=== PATIENT | male | born 1955 | race Caucasian/White ===

== ENCOUNTER 2016-07-24 13:33 | Observation (INO) | payer MEDICARE, MEDICAID ==
[~2016-07-24] VITALS: Ht 172.7 cm; Wt 58.6 kg
[~2016-07-24 13:33] MED LIST: ACET250T3 PO; ADV1DS; ADV1DS1; ALBU2.5V52 INH; ALBU8.5H2 IH; ARIP15TA; ARIP15TA PO; ARIP30TA10 PO; ARPZ20T PO; ASP325T; ASP325T PO; ASP81TEC PO; ATOR40TA PO; ATOR80TA76 PO; ATR20T; ATRV10T; CARV3.12 PO; CARV6.25; CARV6.252 PO; CEPH500C PO; CITA-105; CITA-105 PO; CITA40TA19 PO; CLOP75TA PO; CLPD75T; CTLP20T; CYCL5TAB PO; FAMO-119 PO; FLUT1DIS26 IH; FLUT1DIS27 IH; ISM30TCR PO; ISOS30TA74 PO; KCL10CCR; KCL10CCR PO; LEVA0.31; LEVO500T69 PO; LEVO500T78 PO; LISI10TA PO; LISI20TA PO; LISI40TA; LSNP10T; LSNP20T; METH4TAB PO; MNTL10T PO; MULT1TAB63; NAPR-243 PO; NF-ESOM40C; NF-XOP-HFA; NF-XOP-HFA INH; NITR1PAT27; NTR.4SL; NTR.4SL SL; OMEP20CA6 PO; OMG1KC; OMG1KC PO; ONDN4T SL; OSLT75C PO; PANT40TA2 PO; PNT40TEC PO; PRD20T PO; PRM25T PO; RANO10003 PO; RANO500T2 PO; RNT150T PO; SERT50TA PO; SLMFT1E; SRTR100T; SRTR100T PO; TIAZAC; TIOT18CA; TIOT18CA INH; TORS20TA2 PO; TORS20TA3 PO; TRAM-42 PO; TRAZ50TA67 PO; TRS20T; TRZ100T PO; TRZ50T; [UNRECOGNIZED DRUG - CODE] IJ; [UNRECOGNIZED DRUG - CODE] IV; [UNRECOGNIZED DRUG - OTHER] PO
[2016-07-24 13:54] LABS: BASOPHILS % (AUTO) 0 % (0-10); EOSINOPHILS # (AUTO) 0.1 10^3/uL (0.0-0.3); EOSINOPHILS % (AUTO) 2 % (0-10); LYMPHOCYTES # (AUTO) 1.9 X 10^3 (1.0-4.0); LYMPHOCYTES % (AUTO) 38 % (12-44); MEAN CORPUSCULAR HEMOGLOBIN 32 PG (25-34); MEAN CORPUSCULAR HGB CONC 33 G/DL (32-36); MEAN CORPUSCULAR VOLUME 96 FL (80-99); MEAN PLATELET VOLUME 9.8 FL (7.4-10.4); MONOCYTES # (AUTO) 0.5 X 10^3 (0.0-1.0); MONOCYTES % (AUTO) 9 % (0-12); NEUTROPHILS # (AUTO) 2.5 X 10^3 (1.8-7.8); NEUTROPHILS % (AUTO) 50 % (42-75); PLATELET COUNT 143 10^3/uL (130-400); RED BLOOD COUNT 4.34 10^6/uL (4.35-5.85); RED CELL DISTRIBUTION WIDTH 12.4 % (10.0-14.5)
--- NOTE | 2016-07-24 14:06 | Diagnostic Imaging Report ---
INDICATION: Chest pain. EXAMINATION: Portable chest at 1:51 PM. FINDINGS: There are postop changes from CABG surgery. The heart size and pulmonary vascularity are normal. The lungs are clear. There are no effusions or pneumothoraces. IMPRESSION: No acute abnormalities in the chest. Dictated by: Dictated on workstation # [id number]
[2016-07-24 14:16] LABS: ALANINE AMINOTRANSFERASE 18 U/L (0-55); ALBUMIN 3.9 G/DL (3.2-4.5); ANION GAP 5 MMOL/L (5-14); ASPARTATE AMINO TRANSFERASE 17 U/L (5-34); BILIRUBIN,TOTAL 0.5 MG/DL (0.1-1.0); BLOOD UREA NITROGEN 7 MG/DL (7-18); BUN/CREATININE RATIO 8; CARBON DIOXIDE 35 MMOL/L (21-32); CHLORIDE 96 MMOL/L (98-107); CREATININE SERUM 0.86 MG/DL (0.60-1.30); GFR ESTIMATED > 60; GLUCOSE 109 MG/DL (70-105); POTASSIUM 4.4 MMOL/L (3.6-5.0); SODIUM 136 MMOL/L (135-145); TOTAL PROTEIN 6.3 G/DL (6.4-8.2)
--- NOTE | 2016-07-24 15:42 | ED Chest Pain ---
General Chief Complaint: Chest Pain Stated Complaint: CHEST PAIN Nursing Triage Note: TO ROOM VIA WC FROM [facility]. PT STARTED HAVING CHEST PAIN WHILE IN REHAB. Nursing Sepsis Screen: No Definite Risk Source: patient Exam Limitations: no limitations History of Present Illness Time seen by provider: 15:30 Initial Comments The patient is a 61-year-old white male with a long standing cardiac history. He reports that he was at cardiac rehabilitation today when he began to have chest pain and was sent over here. He states that he continues to have chest pain which is left chest and radiates to the back. He does not complain of shortness of breath although he is clearly tachypneic and wheezing. He last had a cardiac catheter in September 2014. This showed a totally occluded LAD at its midportion and an occluded vein graft. There was a patent stent in the proximal LAD to the diagonal artery, mild disease in the circumflex and right coronary arteries which was nonobstructive. There is a prominent left ventricular anterior wall hypokinesia and ejection fraction was estimated at 45 percent. He was placed education rn therapy at that time. It is not clear about his degree of compliance. He does state that he has stopped smoking I'm not so clear about Timing/Duration: 1-3 hours Severity/Quality: moderate, severe Location: substernal Radiation: no radiation Allergies and Home Medications Allergies Coded Allergies: budesonide (Verified Allergy, Unknown, 03/23/08) formoterol (Verified Allergy, Unknown, 03/23/08) tetanus toxoid, adsorbed (Verified Allergy, Unknown, 11/24/08) Home Medications Acetazolamide 250 Mg Tablet 250 MG PO DAILY (Reported) Albuterol 8.5 Gm Hfa.aer.ad 4 PUFF IH Q4H PRN PRN SHORTNESS OF BREATH (Reported ) NEEDED FOR SHORTNESS OF BREATH Aripiprazole 30 Mg Tablet 30 MG PO DAILY (Reported) Aspirin 81 Mg Tabec 81 MG PO DAILY (Reported) Atorvastatin Calcium 80 Mg Tablet 80 MG PO DAILY (Reported) Carvedilol 6.25 Mg Tablet 6.25 MG PO BID (Reported) Clopidogrel Bisulfate 75 Mg Tablet 75 MG PO DAILY (Reported) Fluticasone/Salmeterol 1 Disk Inhp 1 PUFF IH BID (Reported) Isosorbide Mononitrate 30 Mg Tab.sr.24h 15 MG PO DAILY (Reported) TAKES 1/2 (30MG) TABLET DAILY Lisinopril 10 Mg Tablet 10 MG PO DAILY (Reported) Montelukast Sodium 10 Mg Tab 10 MG PO DAILY (Reported) Nitroglycerin 0.4 Mg Tab 0 SL PRN PRN PRN CHEST PAIN (Reported) 1 TAB EVERY 5 MINUTES X 3 DOSES NEEDED FOR CHEST PAIN [place] 3 Polyunsat Fatty Acids 1,000 Mg Cap 1,000 MG PO TID (Reported) Ranolazine 1,000 Mg Tab.sr.12h 1,000 MG PO BID (Reported) Sertraline Hcl 100 Mg Tab 100 MG PO BID (Reported) Tiotropium [place] 1 Inh Aerp 1 PUFF INH DAILY (Reported) Trazodone Hcl 100 Mg Tab 100 MG PO HS PRN PRN SLEEP (Reported) NEEDED FOR SLEEP Review of Systems Constitutional: see HPI EENTM: No Symptoms Reported Respiratory: Cough Shortness of Air SOA With Exertion Wheezing Cardiovascular: See HPI Gastrointestinal: No Symptoms Reported Genitourinary: No Symptoms Reported Musculoskeletal: no symptoms reported Skin: no symptoms reported Psychiatric/Neurological: No Symptoms Reported Endocrine: No Symptoms Reported Past Ybctyhi-Rbrrns-Drpzky Hx Patient Social History Type Used: Cigarettes Former Smoker/When Quit: Aug 21, 2014 Recent Foreign Travel: No Contact w/Someone Who Travel: No Recent Infectious Disease Expo: No Recent Hopitalizations: Yes Immunizations Up To Date Tetanus Booster (TDap): Unknown Date of Pneumonia Vaccine: Mar 23, 2013 Date of Influenza Vaccine: Mar 04, 2013 Surgeries HX Surgeries: Yes (HERNIA, CABG; STENTS IN HEART; STENT IN LEFT LEG 2007, hernia) Surgeries: Abdominal, Cardiac, CABG, Tonsillectomy, Vascular Surgery Respiratory Hx Respiratory Disorders: Yes (COPD, ) Respiratory Disorders: Chronic Bronchitis, COPD Cardiovascular Hx Cardiac Disorders: Yes (heart attack, CABG, ) Cardiac Disorders: Coronary Artery Disease, Deep Vein Thrombosis, Heart Attack , High Cholesterol, Hypertension, Peripheral Vascular Neurological Hx Neurological Disorders: No Reproductive System Hx Reproductive Disorders: No Sexually Transmitted Disease: No Genitourinary Hx Genitourinary Disorders: Yes (RENAL INSUFFECIENCY) Gastrointestinal Hx Gastrointestinal Disorders: Yes Gastrointestinal Disorders: Gastroesophageal Reflux, Ulcer Musculoskeletal Hx Musculoskeletal Disorders: No Endocrine Hx Endocrine Disorders: No HEENT HX ENT Disorders: No Cancer Hx Cancer: No Psychosocial Hx Psychiatric Problems: Yes Behavioral Health Disorders: Anxiety, Depression Integumentary HX Skin/Integumentary Disorder: No Blood Transfusions Hx Blood Disorders: No Family Medical History Significant Family History: No Pertinent Family Hx Physical Exam Vital Signs Vital Sign - Last 12Hours 07/24/16 13:42 Temp 96.9 Pulse 65 Resp 18 B/P 125/76 Pulse Ox 100 O2 Delivery Nasal Cannula O2 Flow Rate 2 Capillary Refill : Less Than 3 Seconds General Appearance: Mild Distress HEENT: Normal ENT Inspection Respiratory: Rhonci Stridor Wheezing Cardiovascular: Regular Rate, Rhythm No Edema No Gallop No JVD No Murmur Normal Peripheral Pulses Gastrointestinal: Normal Bowel Sounds No Organomegaly Neurologic/Psychiatric: Alert Oriented x3 No Motor/Sensory Deficits Normal Mood/Affect Skin: Normal Color Warm/Dry Lymphatic: No Adenopathy Progress/Results/Core Measures Results/Orders Lab Results Laboratory Tests Test 07/24/16 13:45 Range/Units Alanine Aminotransferase (ALT/SGPT) 18 0-55 U/L Albumin 3.9 3.2-4.5 G/DL Alkaline Phosphatase 66 40-136 U/L Anion Gap 5 5-14 MMOL/L Aspartate Amino Transf (AST/SGOT) 17 5-34 U/L BUN/Creatinine Ratio 8 Basophils # (Auto) 0.0 0.0-0.1 10^3/uL Basophils (%) (Auto) 0 0-10 % Blood Urea Nitrogen 7 7-18 MG/DL Calcium Level 9.0 8.5-10.1 MG/DL Carbon Dioxide Level 35 H 21-32 MMOL/L Chloride Level 96 L 98-107 MMOL/L Creatinine 0.86 0.60-1.30 MG/DL Eosinophils # (Auto) 0.1 0.0-0.3 10^3/uL Eosinophils (%) (Auto) 2 0-10 % Estimat Glomerular Filtration Rate > 60 Glucose Level 109 H 70-105 MG/DL Hematocrit 42 40-54 % Hemoglobin 13.7 13.3-17.7 G/DL Lymphocytes # (Auto) 1.9 1.0-4.0 X 10^3 Lymphocytes (%) (Auto) 38 12-44 % Mean Corpuscular Hemoglobin 32 25-34 PG Mean Corpuscular Hemoglobin Concent 33 32-36 G/DL Mean Corpuscular Volume 96 80-99 FL Mean Platelet Volume 9.8 7.4-10.4 FL Monocytes # (Auto) 0.5 0.0-1.0 X 10^3 Monocytes (%) (Auto) 9 0-12 % Neutrophils # (Auto) 2.5 1.8-7.8 X 10^3 Neutrophils (%) (Auto) 50 42-75 % Platelet Count 143 130-400 10^3/uL Potassium Level 4.4 3.6-5.0 MMOL/L Red Blood Count 4.34 L 4.35-5.85 10^6/uL Red Cell Distribution Width 12.4 10.0-14.5 % Sodium Level 136 135-145 MMOL/L Total Bilirubin 0.5 0.1-1.0 MG/DL Total Protein 6.3 L 6.4-8.2 G/DL Troponin I < 0.30 <0.30 NG/ML White Blood Count 5.0 4.3-11.0 10^3/uL My Orders Orders-MARTIN GRULLON MD Ekg Tracing (07/24/16 13:44) Cbc With Automated Diff (07/24/16 13:44) Comprehensive Metabolic Panel (07/24/16 13:44) Chest 1 View, Ap/Pa Only (07/24/16 13:44) Troponin I (07/24/16 14:33) Vital Signs/I&O Vital Sign - Last 12Hours 07/24/16 13:42 Temp 96.9 Pulse 65 Resp 18 B/P 125/76 Pulse Ox 100 O2 Delivery Nasal Cannula O2 Flow Rate 2 Blood Pressure Mean: 92 Departure Impression Impression: Primary Impression: ASHD with angina Additional Impression: COPD with exacerbation Disposition: ADMITTED INPATIENT Condition: Stable/Unchanged Decision to Admit Reason: Admit from ER (General) Decision to Admit/Date: Jul 24, 2016 Time/Decision to Admit Time: 15:45 Departure-Patient Inst. Referrals: NO,LOCAL PHYSICIAN (PCP/Family) Primary Care Physician MARTIN GRULLON MD Jul 24, 2016 15:42
[2016-07-24] MEDS ORDERED: fentaNYL INJECTION 100 MCG/2 ML AMP IVP ONE (16:00)
[2016-07-24] MEDS ORDERED: ASPIRIN 81 MG CHEW (CHILDREN'S ASA) PO ONE (16:00)
[2016-07-24 16:44] VITALS: BP 126/75
[2016-07-24] MEDS ORDERED: NS IV 1000 ML 1,000 ML ONE (17:05)
[2016-07-24] MEDS ORDERED: ALPRAZolam 0.25 MG (XANAX) TAB PO PRN (17:45)
[2016-07-24] MEDS ORDERED: ONDANSETRON 4 MG/2 ML (SDV) Z0FRAN IVP PRN (17:45)
[2016-07-24] MEDS ORDERED: HYDROcodone/APAP 5 MG/325 MG (LORTAB) TAB PO PRN (17:45)
[2016-07-24] MEDS ORDERED: ACETAMINOPHEN 500 MG TAB (TYLENOL) PO PRN (17:45)
[2016-07-24] MEDS ORDERED: fentaNYL INJECTION 100 MCG/2 ML AMP IVP PRN (17:45)
[2016-07-24] MEDS ORDERED: SENNA W/DOCUSATE (SENOKOT S) TABLET PO PRN (17:45)
[2016-07-24] MEDS ORDERED: NITROGLYCERIN SUBLINGUAL 0.4 MG TAB (NITROSTAT) SL PRN (18:00)
[2016-07-24] MEDS: NS IV 1000 ML 1,000 ML IV SCH (18:00)
[2016-07-24] MEDS ORDERED: FLU TRIvalent (5 YOA+) 2016-17 (AFLURIA) 0.5 ML IM ONE (18:15)
[2016-07-24] MEDS: RT-ALBUTEROL/IPRATROPIUM 3 ML (DUONEB) VIAL INH SCH ×2 (18:25→21:29)
--- NOTE | 2016-07-24 18:33 | Consultation-Cardiology ---
HPI-Cardiology Cardiology Consultation: Date of Consultation 07/24/16 Date of Admission 07/24/16 Attending Physician Mel Nash DO Admitting Physician No,Local Physician Consulting Physician JENS CHAVEZ MD, FACP, FACC, [facility] [place], [facility] Primary technical assoc: Dr Carrion Physician requesting consult: Dr Nash HPI: Chief Complaint: Chest pain 61 yo man admitted with chest pain: one episode earlier today, mod to severe, in the L parasternal chest, non-radiating, vice-like, not related to exertion, no relieving factors other than narcotic analgesic in the ER, no aggravating factors, no associated symptoms, no recurrence since relief, first such episode in the recent past. Has chronic slowly progressive PATEL, unchanged. Denies leg swelling or palp or syncope. Denies nausea, vomiting, diarrhea Review of Systems-Cardiology Review of Systems Constitutional: malaise tirednessNo weight loss, No weight gain Eyes: No vision change Ears/Nose/Throat: No recent hearing loss Respiratory: As described under HPI Cardiovascular: As described under HPI Gastrointestinal: As described under HPI Genitourinary: No dysuria, No hematuria Musculoskeletal: back pain (chronic) Skin: No rash, No ulcerations Psychiatric/Neurological: No focal weakness, No seizure, No syncope [id number]-[id number]-Bkhbfh Hx Patient Social History Alcohol Use: Denies Use Recreational Drug Use: No Smoking Status: Current Everyday Smoker Former smoker/When Quit: Aug 21, 2014 Type Used: Cigars Recent Foreign Travel: No Recent Infectious Disease Expo: No Physical Abuse Screen: No Sexual Abuse: No Immunizations Up To Date Tetanus Booster (TDap): Unknown Date of Pneumonia Vaccine: Mar 23, 2013 Date of Influenza Vaccine: Mar 04, 2013 Past Medical History PMH As described under Assessment. Family Medical History Family Medical History: Father had ME when he was in his early 50s Family History: Diabetes mellitus 19 MOTHER FH: heart disease 19 FATHER Allergies and Home Medications Allergies Coded Allergies: budesonide (Verified Allergy, Unknown, 03/23/08) formoterol (Verified Allergy, Unknown, 03/23/08) tetanus toxoid, adsorbed (Verified Allergy, Unknown, 11/24/08) Home Medications Acetazolamide 250 Mg Tablet 250 MG PO DAILY (Reported) Albuterol 8.5 Gm Hfa.aer.ad 4 PUFF IH Q4H PRN PRN SHORTNESS OF BREATH (Reported ) NEEDED FOR SHORTNESS OF BREATH Aripiprazole 30 Mg Tablet 30 MG PO DAILY (Reported) Aspirin 81 Mg Tabec 81 MG PO DAILY (Reported) Atorvastatin Calcium 80 Mg Tablet 80 MG PO DAILY (Reported) Carvedilol 6.25 Mg Tablet 6.25 MG PO BID (Reported) Clopidogrel Bisulfate 75 Mg Tablet 75 MG PO DAILY (Reported) Fluticasone/Salmeterol 1 Disk Inhp 1 PUFF IH BID (Reported) Isosorbide Mononitrate 30 Mg Tab.sr.24h 15 MG PO DAILY (Reported) TAKES 1/2 (30MG) TABLET DAILY Lisinopril 10 Mg Tablet 10 MG PO DAILY (Reported) Montelukast Sodium 10 Mg Tab 10 MG PO DAILY (Reported) Nitroglycerin 0.4 Mg Tab 0 SL PRN PRN PRN CHEST PAIN (Reported) 1 TAB EVERY 5 MINUTES X 3 DOSES NEEDED FOR CHEST PAIN [place] 3 Polyunsat Fatty Acids 1,000 Mg Cap 1,000 MG PO TID (Reported) Ranolazine 1,000 Mg Tab.sr.12h 1,000 MG PO BID (Reported) Sertraline Hcl 100 Mg Tab 100 MG PO BID (Reported) Tiotropium [place] 1 Inh Aerp 1 PUFF INH DAILY (Reported) Trazodone Hcl 100 Mg Tab 100 MG PO HS PRN PRN SLEEP (Reported) NEEDED FOR SLEEP Physical Exam-Cardiology Physical Exam Vital Signs/I&O Vital Sign - Last 12Hours 07/24/16 07/24/16 07/24/16 07/24/16 13:42 16:25 16:35 16:44 Temp 96.9 96.6 Pulse 65 73 63 Resp 18 16 18 B/P 125/76 126/75 Pulse Ox 100 96 97 O2 Delivery Nasal Cannula Nasal Cannula Nasal Cannula O2 Flow Rate 2 2.00 2.00 07/24/16 17:15 Pulse Ox 97 Capillary Refill : Less Than 3 Seconds Constitutional: AAO x 3 well-developed HEENT: PERRL hearing is well preservedNo xanthelasmas are seen Neck: carotid pulses are 2 + bilaterally with good upstrokes Respiratory: No accessory muscle use, other (fair air entry; prolonged exp; exp wheezes; hyperresonance to percussion bilat) Cardiovascular: regular rate-rhythm S1 and S2 systolic murmur (faint LINNEA at card bse) Gastrointestinal: No tender, softNo guarding, No rebound, audible bowel sounds Extremities: No clubbing, No cyanosis, No significant edema Neurologic/Psychiatric: grossly intact power is 5/5 both on sides Skin: No rash on exposed areas, No ulcerations on exposed areas Data Review Labs Laboratory Tests 07/24/16 13:45: Alanine Aminotransferase (ALT/SGPT) 18, Albumin 3.9, Alkaline Phosphatase 66, Anion Gap 5, Aspartate Amino Transf (AST/SGOT) 17, BUN/Creatinine Ratio 8, Basophils # (Auto) 0.0, Basophils (%) (Auto) 0, Blood Urea Nitrogen 7, Calcium Level 9.0, Carbon Dioxide Level 35H, Chloride Level 96L, Creatinine 0.86, Eosinophils # (Auto) 0.1, Eosinophils (%) (Auto) 2, Estimat Glomerular Filtration Rate > 60, Glucose Level 109H, Hematocrit 42, Hemoglobin 13.7, Lymphocytes # (Auto) 1.9, Lymphocytes (%) (Auto) 38, Mean Corpuscular Hemoglobin 32, Mean Corpuscular Hemoglobin Concent 33, Mean Corpuscular Volume 96, Mean Platelet Volume 9.8, Monocytes # (Auto) 0.5, Monocytes (%) (Auto) 9, Neutrophils # (Auto) 2.5, Neutrophils (%) (Auto) 50, Platelet Count 143, Potassium Level 4.4, Red Blood Count 4.34L, Red Cell Distribution Width 12.4, Sodium Level 136, Total Bilirubin 0.5, Total Protein 6.3L, Troponin I < 0.30, White Blood Count 5.0 Laboratory Tests 07/24/16 13:45 ECG Impression ECG Comment 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 Gray Hypertension Hyperlipidemia Chronic tobacco use, still continuing Carotid stenosis, followed by [facility] Peripheral arterial disease, followed by [facility] Anxiety. Discussion and Recomendations * Monitor for ACS * Advised to quit smoking * Continue antiplatelet and beta-jihan and nitrate therapy Clinical Quality Measures AMI/AHF: ASA po Prior to arrival: Yes (81 mg po this am) DVT/VTE Risk/Contraindication: Risk Factor Score Per Nursin RFS Level Per Nursing on Admit: 4+=Very High JENS CHAVEZ MD FACP FAC CCDS Jul 24, 2016 18:33
[2016-07-24] MEDS ORDERED: ARPZ30T PO (18:40)
[2016-07-24] MEDS ORDERED: RT-ALBUINH IH (18:40)
[2016-07-24] MEDS ORDERED: ATOR80TA64 PO (18:40)
[2016-07-24] MEDS ORDERED: ALBU2.5V4 IH (18:40)
[2016-07-24 20:00] VITALS: BP 113/69
[2016-07-24] MEDS ORDERED: RANOLAZINE ER 500 MG TAB (RANEXA) PO SCH (21:00)
[2016-07-24] MEDS ORDERED: ATORVASTATIN 40 MG (LIPITOR) TABLET PO SCH (21:00)
[2016-07-24] MEDS: CARVEDILOL 6.25 MG (COREG) TAB PO SCH (21:10)
[2016-07-24] MEDS ORDERED: RT-ALBUTEROL/IPRATROPIUM 3 ML (DUONEB) VIAL INH PRN (21:45)
[2016-07-25] VITALS: BP 101/63
[2016-07-25] MEDS: RT-ALBUTEROL/IPRATROPIUM 3 ML (DUONEB) VIAL INH SCH ×2 (02:12→06:19)
[2016-07-25 04:00] VITALS: BP 114/62
--- NOTE | 2016-07-25 06:56 | Pulmonary Consultation ---
History of Present Illness History of Present Illness Date of Consultation 07/25/16 06:51 Date of Admission History of Present Illness 61yo with hx of severe COPD, and CAD admitted secondary to left nonradiating parasternal CP and exertional SOB. Pt was also Wheezing on ED admission. I am consulted for pulmonary management. Allergies and Home Medications Allergies Coded Allergies: budesonide (Verified Allergy, Unknown, 03/23/08) formoterol (Verified Allergy, Unknown, 03/23/08) tetanus toxoid, adsorbed (Verified Allergy, Unknown, 11/24/08) Home Medications Albuterol 8.5 Gm Hfa.aer.ad 2 PUFF IH QID PRN PRN SHORTNESS OF BREATH (Reported ) NEEDED FOR SHORTNESS OF BREATH Albuterol Sulfate 2.5 Mg/3 Ml Vial.neb 2.5 MG IH TID (Reported) Aripiprazole 30 Mg Tablet 30 MG PO DAILY (Reported) Aspirin 81 Mg Tabec 81 MG PO DAILY (Reported) Atorvastatin Calcium 80 Mg Tablet 80 MG PO DAILY (Reported) Carvedilol 6.25 Mg Tablet 6.125 MG PO BID (Reported) Clopidogrel Bisulfate 75 Mg Tablet 75 MG PO DAILY (Reported) Fluticasone/Salmeterol 1 Disk Inhp 1 PUFF IH BID (Reported) Isosorbide Mononitrate 30 Mg Tab.sr.24h 15 MG PO DAILY (Reported) TAKES 1/2 (30MG) TABLET DAILY Lisinopril 10 Mg Tablet 5 MG PO DAILY (Reported) Montelukast Sodium 10 Mg Tab 10 MG PO DAILY (Reported) Nitroglycerin 0.4 Mg Tab 0 SL PRN PRN PRN CHEST PAIN (Reported) 1 TAB EVERY 5 MINUTES X 3 DOSES NEEDED FOR CHEST PAIN [place] 3 Polyunsat Fatty Acids 1,000 Mg Cap 1,200 MG PO TID (Reported) Ranolazine 1,000 Mg Tab.sr.12h 1,000 MG PO BID (Reported) Sertraline Hcl 100 Mg Tab 100 MG PO BID (Reported) Tiotropium [place] 1 Inh Aerp 1 PUFF INH DAILY (Reported) Trazodone Hcl 100 Mg Tab 100 MG PO HS PRN PRN SLEEP (Reported) NEEDED FOR SLEEP Past Dbhsxwg-Gvelks-Uozjbx Hx Patient Social History Alcohol Use: Denies Use Recreational Drug Use: No Smoking Status: Current Everyday Smoker Type Used: Cigars Former Smoker/When Quit: Aug 21, 2014 Recent Foreign Travel: No Contact w/Someone Who Travel: No Recent Infectious Disease Expo: No Recent Hopitalizations: Yes Physical Abuse Screen: No Sexual Abuse: No Immunizations Up To Date Tetanus Booster (TDap): Unknown Date of Pneumonia Vaccine: Mar 23, 2013 Date of Influenza Vaccine: Mar 04, 2013 Seasonal Allergies Seasonal Allergies: No Surgeries HX Surgeries: Yes (HERNIA, CABG; STENTS IN HEART; STENT IN LEFT LEG 2007, hernia) Surgeries: Abdominal, Cardiac, CABG, Tonsillectomy, Vascular Surgery Respiratory Hx Respiratory Disorders: Yes (COPD, ) Respiratory Disorders: Chronic Bronchitis, COPD Cardiovascular Hx Cardiac Disorders: Yes (heart attack, CABG, ) Cardiac Disorders: Coronary Artery Disease, Deep Vein Thrombosis, Heart Attack , High Cholesterol, Hypertension, Peripheral Vascular Neurological Hx Neurological Disorders: No Reproductive System Hx Reproductive Disorders: No Sexually Transmitted Disease: No Genitourinary Hx Genitourinary Disorders: Yes (RENAL INSUFFECIENCY) Gastrointestinal Hx Gastrointestinal Disorders: Yes Gastrointestinal Disorders: Gastroesophageal Reflux, Ulcer Musculoskeletal Hx Musculoskeletal Disorders: No Endocrine Hx Endocrine Disorders: No HEENT HX ENT Disorders: No Cancer Hx Cancer: No Psychosocial Hx Psychiatric Problems: Yes Behavioral Health Disorders: Anxiety, Depression Integumentary HX Skin/Integumentary Disorder: No Blood Transfusions Hx Blood Disorders: No Family Medical History Significant Family History: No Pertinent Family Hx Family Medial History: Diabetes mellitus 19 MOTHER FH: heart disease 19 FATHER Review of Systems Constitutional: : Malaise: WeaknessNo: Chills, Fever, Other, Sweats Eyes: No: Conjunctivae inflammation, Eyelid inflammation, Other, Pain, Redness , Vision change ENT: : Nose congestionNo: Ear discharge, Ear pain, Mouth pain, Mouth swelling, Nose discharge, Nose pain, Other, Throat pain, Throat swelling Respiratory: : Cough: Dry: SOB with excertion: Shortness of breath: Wheezing Cardiovascular: : Chest PainNo: Lt Headedness, Orthopnea, Paroxysmal Noc. Dyspnea Gastrointestinal: No: Abdominal Pain, Constipation, Diarrhea, Hematochezia, Melena, Nausea, Other, Vomiting Genitourinary: No Dysuria, No Frequency, No Incontinence, No Hematuria, No Retention, No Other Musculoskeletal: No: arm pain, back pain, foot pain, hand pain, leg pain, neck pain, other, shoulder pain Skin: No: Bruising, Jaundice, Lesions, Other, Rash Exam Exam Vital Signs Date Time Temp Pulse Resp B/P Pulse Ox O2 Delivery O2 Flow Rate FiO2 07/25/16 06:19 97 2.00 07/25/16 04:00 97 2.00 07/25/16 04:00 96.8 59 18 114/62 97 Nasal Cannula 2.00 07/25/16 02:12 97 2.00 07/25/16 01:00 53 07/25/16 00:00 96.8 53 16 101/63 98 Nasal Cannula 2.00 07/25/16 00:00 98 2.00 07/24/16 21:30 96 2.00 07/24/16 21:00 95 Nasal Cannula 2.00 07/24/16 20:00 96.7 60 16 113/69 95 Nasal Cannula 2.00 07/24/16 19:00 60 07/24/16 18:26 96 2.00 07/24/16 17:15 97 07/24/16 16:44 96.6 63 18 126/75 97 Nasal Cannula 2.00 07/24/16 16:35 Nasal Cannula 2.00 07/24/16 16:25 73 16 96 07/24/16 13:42 96.9 65 18 125/76 100 Nasal Cannula 2 I & O 07/25/16 07:00 Intake Total 440 ml Output Total 925 ml Balance -485 ml General Appearance: No Apparent Distress HEENT: Normal ENT Inspection Respiratory: Rhonci Stridor Wheezing Cardiovascular: Regular Rate, Rhythm No Edema No Gallop No JVD No Murmur Normal Peripheral Pulses Capillary Refill: Less Than 3 Seconds Neurologic/Psychiatric: Alert Oriented x3 No Motor/Sensory Deficits Normal Mood/Affect Skin: Normal Color Warm/Dry Lymphatic: No Adenopathy Results Lab Laboratory Tests 07/24/16 13:45 Assessment/Plan Assessment/Plan CP -Cardiology following COPDAE -SOlumedrol 125mg IV X1 then start long prednisone taper -Pt states he is allergic to Symbicort- makes his tongue swell Hx of severe COPD oxygen dependent -SVNs, Advair CAD with hx of stent placement Tobacco use -education Anxiety Carotid stenosis PAD Clinical Quality Measures AMI/AHF: ASA po Prior to arrival: Yes (81 mg po this am) DVT/VTE Risk/Contraindication: Risk Factor Score Per Nursin RFS Level Per Nursing on Admit: 4+=Very High XIMENA QUINONES DO Jul 25, 2016 06:56
[2016-07-25] MEDS ORDERED: methylPREDNISolone 125 MG (Solu-MEDROL) VIAL IM NR (07:00)
[2016-07-25] MEDS ORDERED: methylPREDNISolone 125 MG (Solu-MEDROL) VIAL IV NR (07:00)
[2016-07-25] MEDS: NS IV 1000 ML 1,000 ML IV SCH (07:40)
--- NOTE | 2016-07-25 07:46 | Cardiology Progress Note ---
Subjective Subjective/Events-last exam patient is laying down in bed, feeling better, still having some wheezing, denied any chest pain today. Review of Systems General: No Chills, No Night Sweats, No Fatigue, No Malaise, No Appetite, No Other HEENT: No Head Aches, No Visual Changes, No Eye Pain, No Ear Pain, No Dysphasia , No Sinus Congestion, No Post Nasal Drip, No Sore Throat, No Other Pulmonary: DyspneaNo Cough, No Pleuritic Chest Pain, No Other Cardiovascular: No: Chest Pain, Edema, Lt Headedness, Orthopnea, Other, Palpitations, Paroxysmal Noc. Dyspnea Objective-Cardiology Exam Last Set of Vital Signs Vital Signs 07/25/16 07/25/16 04:00 06:19 Temp 96.8 Pulse 59 Resp 18 B/P 114/62 Pulse Ox 97 O2 Delivery Nasal Cannula O2 Flow Rate 2.00 Capillary Refill : Less Than 3 Seconds I&O Bad tableGeneral: Alert, Oriented X3, Cooperative HEENT: Atraumatic, PERRLA Neck: Supple, No JVD, No Thyromegaly Lungs: Normal Air Movement, Other (expiratory wheezing, bilateral rhonchi) Heart: Regular Rate, Normal S1, Normal S2, Other (systolic murmur at the left sternal) Abdomen: Normal Bowel Sounds, Soft, No Tenderness, No Hepatosplenomegaly, No Masses Extremities: No Clubbing, No Cyanosis, No Edema, Normal Pulses, No Tenderness/ Swelling Skin: No Rashes, No Breakdown, No Significant Lesion Neuro: Normal Gait, Normal Speech, Strength at 5/5 X4 Ext, Normal Tone, Sensation Intact Psych/Mental Status: Mental Status NL, Mood NL Results Lab Laboratory Tests 07/24/16 13:45 A/P-Cardiology Admission Diagnosis chest pain nonspecific etiology Coronary artery disease Hypertension Hyperlipidemia COPD Assessment/Plan Chest pain, nonspecific etiology, has chronic stable angina, some worsening chest pain yesterday, improved today, no EKG changes, cardiac enzymes are negative. Continue to monitor and treat as an outpatient. Increasing dyspnea, acute exacerbation of COPD. Managed by Dr. Gray. Coronary artery disease, last cardiac catheterization was done in September 2014 showing total occlusion of the LAD at its midportion with occluded vein graft to the LAD, patent stent in the proximal LAD to the diagonal artery, mild disease in the circumflex and right coronary artery, prominent left ventricle with EF 45 percent, educated about compliance with medication. Congestive heart failure, chronic compensated left ventricular systolic dysfunction, ischemic cardiomyopathy, ejection fraction 45 percent. Hypertension, restart home medication monitor blood pressure. Hyperlipidemia, restart statin Chronic tobacco use, still continuing Carotid stenosis, followed by [facility] Peripheral arterial disease, followed by [facility] Anxiety. Clinical Quality Measures AMI/AHF: ASA po Prior to arrival: Yes (81 mg po this am) DVT/VTE Risk/Contraindication: Risk Factor Score Per Nursin RFS Level Per Nursing on Admit: 4+=Very High JOSHUA CASTILLO MD Jul 25, 2016 07:46
[2016-07-25 07:58] VITALS: BP 102/64
[2016-07-25] MEDS: CARVEDILOL 6.25 MG (COREG) TAB PO SCH (08:07)
[2016-07-25] MEDS ORDERED: methylPREDNISolone 125 MG (Solu-MEDROL) VIAL IVP ONE (08:15)
[2016-07-25] MEDS ORDERED: lisINopril 5 MG (PRINIVIL) TABLET PO SCH (09:00)
[2016-07-25] MEDS ORDERED: ASPIRIN 81 MG CHEW (CHILDREN'S ASA) PO SCH (09:00)
[2016-07-25] MEDS ORDERED: ISOSORBIDE MONONITRATE 30 MG (IMDUR) TAB PO SCH (09:00)
[2016-07-25] MEDS ORDERED: CLOPIDOGREL 75 MG (PLAVIX) TABLET PO SCH (09:00)
[2016-07-25] MEDS ORDERED: ISOS30TA3 PO (09:45)
[2016-07-25] MEDS ORDERED: MONT10TA24 PO (09:45)
[2016-07-25] MEDS ORDERED: RANO10003 PO (09:45)
[2016-07-25] MEDS ORDERED: ARIP30TA10 PO (09:45)
[2016-07-25] MEDS ORDERED: LISI-556 PO (09:45)
[2016-07-25] MEDS ORDERED: TRAZ100T92 PO (09:45)
[2016-07-25] MEDS ORDERED: CLOP75TA28 PO (09:45)
[2016-07-25] MEDS ORDERED: SERT100T8 PO (09:45)
[2016-07-25] MEDS ORDERED: NITR0.4T PO (09:45)
[2016-07-25] MEDS ORDERED: ATOR80TA76 PO (09:45)
[2016-07-25] MEDS ORDERED: IPRA3AMP IH (09:55)
[2016-07-25] MEDS ORDERED: FLUT1DIS26 IH (09:55)
[2016-07-25] MEDS ORDERED: RT-ALBUINH IH (10:01)
--- NOTE | 2016-07-25 10:19 | Short Stay Summary-Hospitalist ---
HPI History of Present Illness: HPI/Chief Complaint CC: chest pain with wheezing HPI: This is a 61-year-old white male clinic patient of Dr. Zepeda's out [facility] who has a long-standing history of COPD due to continued smoking and home oxygen dependent along with nebulizer machine 4 times a day the presents to the ER with complaints of chest pain. He is under Dr. Carrion's care and undergoing cardiac rehabilitation 3 times weekly and aggressively trying to quit smoking. At this current time patient is doing well overall and has been seen by both Dr. Gray who will establish care as an outpatient in addition to Dr. Carrion. All cardiac enzymes are negative. The plan will be to discharge home on steroid taper with follow-up with Dr. Gray and continued smoking cessation. Source: patient Exam Limitations: no limitations Date Seen 07/25/16 Attending Physician Mel Powers DO PCP No,Local Physician Referring Physician Date of Admission Jul 24, 2016 at 16:06 Home Medications & Allergies Home Medications Reviewed patient Home Medication Reconciliation Form Allergies Coded Allergies: budesonide (Verified Allergy, Unknown, 03/23/08) formoterol (Verified Allergy, Unknown, 03/23/08) tetanus toxoid, adsorbed (Verified Allergy, Unknown, 11/24/08) Past Nthfnwc-Rzmluv-Atlypb Hx Patient Social History Alcohol Use: Denies Use Recreational Drug Use: No Smoking Status: Current Everyday Smoker Former smoker/When Quit: Aug 21, 2014 Type Used: Cigars Physical Abuse Screen: No Sexual Abuse: No Recent Foreign Travel: No Contact w/other who traveled: No Recent Hopitalizations: Yes Recent Infectious Disease Expo: No Immunizations Up To Date Tetanus Booster (TDap): Unknown Date of Pneumonia Vaccine: Mar 23, 2013 Date of Influenza Vaccine: Mar 04, 2013 Seasonal Allergies Seasonal Allergies: No Surgeries HX Surgeries: Yes (HERNIA, CABG; STENTS IN HEART; STENT IN LEFT LEG 2007, hernia) Surgeries: Abdominal, Cardiac, CABG, Tonsillectomy, Vascular Surgery Respiratory Hx Respiratory Disorders: Yes (COPD, ) Cardiovascular Hx Cardiovascular Disorders: Yes (heart attack, CABG, ) Cardiac Disorders: Coronary Artery Disease, Deep Vein Thrombosis, Heart Attack , High Cholesterol, Hypertension, Peripheral Vascular Neurological Hx Neurological Disorders: No Reproductive System Hx Reproductive Disorders: No Sexually Transmitted Disease: No Genitourinary Hx Genitourinary Disorders: Yes (RENAL INSUFFECIENCY) Gastrointestinal Hx Gastrointestinal Disorders: Yes Gastrointestinal Disorders: Gastroesophageal Reflux, Ulcer Musculoskeletal Hx Musculoskeletal Disorders: No Endocrine Hx Endocrine Disorders: No HEENT HX ENT Disorders: No Cancer Hx Cancer: No Psychosocial Hx Psychiatric Problems: Yes Behavioral Health Disorders: Anxiety, Depression Integumentary HX Skin/Integumentary Disorder: No Blood Transfusions Hx Blood Disorders: No Family Medical History Significant Family History: No Pertinent Family Hx Family Hx: Diabetes mellitus 19 MOTHER FH: heart disease 19 FATHER Review of Systems Constitutional: see HPI malaise weakness EENTM: no symptoms reported Respiratory: cough dyspnea on exertion Cardiovascular: chest pain Gastrointestinal: no symptoms reported Genitourinary: no symptoms reported Musculoskeletal: no symptoms reported Skin: no symptoms reported Psychiatric/Neurological: No Symptoms Reported All Other Systems Reviewed Negative Unless Noted: Yes Physical Exam Physical Exam Vital Signs Vital Sign - Last 12Hours 07/24/16 13:42 Temp 96.9 Pulse 65 Resp 18 B/P 125/76 Pulse Ox 100 O2 Delivery Nasal Cannula O2 Flow Rate 2 Capillary Refill : Less Than 3 Seconds General Appearance: No Apparent Distress WD/WN Eyes: Bilateral Eye Normal Inspection, Bilateral Eye PERRL HEENT: PERRL/EOMI Normal ENT Inspection Pharynx Normal Neck: Full Range of Motion Normal Inspection Non Tender Supple Carotid Bruit Respiratory: Chest Non Tender No Accessory Muscle Use No Respiratory Distress Crackles Decreased Breath Sounds Wheezing Cardiovascular: Regular Rate, Rhythm No Edema No Gallop No JVD No Murmur Normal Peripheral Pulses Gastrointestinal: Normal Bowel Sounds No Organomegaly No Pulsatile Mass Non Tender Soft Back: Normal Inspection No CVA Tenderness No Vertebral Tenderness Extremity: Normal Capillary Refill Normal Inspection Normal Range of Motion Non Tender No Calf Tenderness No Pedal Edema Neurologic/Psychiatric: Alert Oriented x3 No Motor/Sensory Deficits Normal Mood/Affect Skin: Normal Color Warm/Dry Lymphatic: No Adenopathy Results Results/Procedures Lab Laboratory Tests 07/24/16 13:45 Short Stay Diagnosis Discharge Diagnosis-Short Stay Admission Diagnosis Assessment: Chest pain of uncertain etiology in current smoker with wheezing on exam Severe COPD oxygen dependent CAD managed by Dr. Carrion in cardiac rehabilitation Hyperlipidemia Final Discharge Diagnosis Assessment: Chest pain of uncertain etiology in current smoker with wheezing on exam and exacerbation of COPD final diagnosis Severe COPD oxygen dependent CAD managed by Dr. Carrion in cardiac rehabilitation Hyperlipidemia Conclusion Plan Prednisone taper dose after IV steroids given while hospitalized He has his home oxygen in place 30/12 and has nebulizer machine at home Counseled to continue cessation of smoking Clinical Quality Measures AMI/AHF: ASA po Prior to arrival: Yes (81 mg po this am) DVT/VTE Risk/Contraindication: Risk Factor Score Per Nursin RFS Level Per Nursing on Admit: 4+=Very High MEL POWERS DO Jul 25, 2016 10:19
[2016-07-25] MEDS ORDERED: RT-ALBUTEROL/IPRATROPIUM 3 ML (DUONEB) VIAL IH PRN (10:30)
[2016-07-25] MEDS ORDERED: RT-ALBUTEROL HFA (VENTOLIN) PER PUFF IH PRN (10:30)
[2016-07-25] MEDS ORDERED: NITROGLYCERIN SUBLINGUAL 0.4 MG TAB (NITROSTAT) SL PRN (10:30)
[2016-07-25] MEDS ORDERED: PRED10TA22 PO (11:38)
--- NOTE | 2016-07-25 11:39 | Discharge Instructions ---
Discharge Instructions Discharge Medications New, Converted or Re-Newed RX: Transmitted to Pharmacy New Medications: Prednisone (Prednisone) 10 Mg Tab.ds.pk 10 MG PO DAILY Take 6 tabs(60mg)daily,decrease by 1 tab(10mg)every other day. # 42 PKG Continued Medications: Albuterol Sulfate (Ventolin Hfa Common Canister) 1 Puff Puff 2 PUFF IH QID PRN SHORTNESS OF BREATH Aripiprazole (Aripiprazole) 30 Mg Tablet 30 MG PO DAILY Aspirin (Aspirin Ec 81 Mg) 81 Mg Tabec 81 MG PO DAILY Atorvastatin Calcium (Atorvastatin Calcium) 80 Mg Tablet 80 MG PO DAILY Clopidogrel Bisulfate (Clopidogrel) 75 Mg Tablet 75 MG PO DAILY Fluticasone/Salmeterol (Advair 250-50 Diskus) 1 Each Blst.w.dev 1 PUFF IH BID LAST FILLED 04/02/16 #1 INHALER Ipratropium/Albuterol Sulfate (Iprat-Albut 0.5-3(2.5) mg/3 ml) 3 Ml Ampul.neb 3 ML IH Q6H LAST FILLED 06/26/15 #60 VIALS PRN SHORTNESS OF BREATH EACH Isosorbide Mononitrate (Isosorbide Mononitrate ER) 30 Mg Tab.er.24h 15 MG PO DAILY TAKES 1/2 OF A (30 MG) TABLET Lisinopril (Lisinopril) 5 Mg Tablet 5 MG PO DAILY Montelukast Sodium (Montelukast Sodium) 10 Mg Tablet 10 MG PO DAILY Nitroglycerin (Nitrostat) 0.4 Mg Tab.subl 0.4 MG PO DAILY PRN PRN CHEST PAIN [place] 3 Polyunsat Fatty Acids (Fish Oil) 1,000 Mg Cap 1200 MG PO TID Ranolazine (Ranexa) 1,000 Mg Tab.er.12h 1000 MG PO BID Sertraline HCl (Sertraline HCl) 100 Mg Tablet 100 MG PO DAILY Tiotropium [place] (Spiriva) 1 Inh Aerp 1 PUFF INH DAILY LAST FILLED 04/02/16 #1 INHALER Trazodone HCl (Trazodone HCl) 100 Mg Tablet 100 MG PO HS Patient Instructions Goal/Follow Up Appt: Dr Zepeda in [address] Gray in 2 weeks Activity & Diet Discharge Diet: Cardiac Diet Activity as Tolerated: Yes OUMAR POWERS DO Jul 25, 2016 11:39
[2016-07-25] MEDS ORDERED: OMEGA 3 (FISH OIL) 1000 MG CAP PO SCH (12:00)
[2016-07-25] MEDS ORDERED: CATHETER FLUSH 10 ML SYR IV PRN (12:00)
[2016-07-25] MEDS ORDERED: RT-ADVAIR HFA 115/21 MCG PER PUFF IH SCH (20:00)
[2016-07-25] MEDS ORDERED: traZODone 100 MG (DESYREL) TAB PO SCH (21:00)
[2016-07-25] MEDS ORDERED: RANOLAZINE ER 500 MG TAB (RANEXA) PO SCH (21:00)
[2016-07-26] MEDS ORDERED: methylPREDNISolone 125 MG (Solu-MEDROL) VIAL IV NR (07:00)
[2016-07-26] MEDS ORDERED: UMECLIDINIUM BROMIDE (INCRUSE ELLIPTA) 7'S IH SCH (08:00)
[2016-07-26] MEDS ORDERED: MONTELUKAST 10 MG (SINGULAIR) TAB PO SCH (09:00)
[2016-07-26] MEDS ORDERED: lisINopril 5 MG (PRINIVIL) TABLET PO SCH (09:00)
[2016-07-26] MEDS ORDERED: ASPIRIN E.C. 81 MG (ECOTRIN) TAB PO SCH (09:00)
[2016-07-26] MEDS ORDERED: SERTRALINE 100 MG (ZOLOFT) TAB PO SCH (09:00)
[2016-07-26] MEDS ORDERED: ATORVASTATIN 80 MG (LIPITOR) TABLET PO SCH (09:00)
[2016-07-26] MEDS ORDERED: ISOSORBIDE MONONITRATE 30 MG (IMDUR) TAB PO SCH (09:00)
[2016-07-26] MEDS ORDERED: ARIPIPRAZOLE 15 MG (ABILIFY) TAB PO SCH (09:00)
[2016-07-26] MEDS ORDERED: CLOPIDOGREL 75 MG (PLAVIX) TABLET PO SCH (09:00)
[2016-07-26] MEDS ORDERED: predniSONE 10 MG TAB PO SCH (12:00)
== END 2016-07-25 11:38 | disposition home or self-care (01) ==
LOC: EDUNIT# 13:33 → ER 13:34 → ICU 16:06 → UNDOADMOB 16:06 → ICU 16:35 → UNDODISOB 07-25 14:00
PROVIDERS: ADMIT Internal Medicine; ATTEND Internal Medicine
DX: R07.9 Chest pain, unspecified (principal); J44.1 Chronic obstructive pulmonary disease with (acute) exacerbation; Z99.81 Dependence on supplemental oxygen; I25.10 Atherosclerotic heart disease of native coronary artery without angina pectoris; E78.5 Hyperlipidemia, unspecified; I10 Essential (primary) hypertension; F17.210 Nicotine dependence, cigarettes, uncomplicated; I73.9 Peripheral vascular disease, unspecified; K21.9 Gastro-esophageal reflux disease without esophagitis; F41.9 Anxiety disorder, unspecified; Z95.5 Presence of coronary angioplasty implant and graft; Z95.820 Peripheral vascular angioplasty status with implants and grafts; Z95.1 Presence of aortocoronary bypass graft
CPT/HCPCS: 36415; 71010; 80053; 84484; 85025; 93005; 93041; 94640; 96374; G0378

== ENCOUNTER → 2016-08-27 | Outpatient (CLI) | payer MEDICARE, MEDICAID ==
[~2016-08-27] MED LIST changes: +ALBU2.5V4 IH; +ARPZ30T PO; +ATOR80TA64 PO; +CLOP75TA28 PO; +IPRA3AMP IH; +ISOS30TA3 PO; +LISI-556 PO; +LISI10TA2 PO; +MONT10TA24 PO; +NITR0.4T PO; +PRED10TA22 PO; +RT-ALBUINH IH; +SERT100T8 PO; +TRAZ100T92 PO
--- NOTE | 2016-08-27 13:07 | Diagnostic Imaging Report ---
PROCEDURE: CT chest without contrast. TECHNIQUE: Multiple contiguous axial images were obtained through the chest without the use of intravenous contrast. Indication: Followup lung nodule. Dyspnea. Comparison: 04/04/2016, 03/30/2015, 06/07/2013, and 06/27/2011. Discussion: Stable normal heart size. No pleural or pericardial fluid. No mediastinal, hilar, or axillary adenopathy. Median sternotomy is again noted. Nodular foci within the right upper lobe and left lower lobe are stable from 2011 and are therefore considered benign. These densities are likely secondary to underlying parenchymal scarring. No new nodule or focal consolidation is identified. The visualized upper abdomen is unremarkable. No acute osseous abnormality identified. Impression: 1. Nodular scarring within the right upper lobe and left lower lobe is stable from 2011 and therefore considered benign. No adverse interval change. Dictated by: Dictated on workstation # [id number]
== END ==
LOC: RAD 12:30
PROVIDERS: ATTEND Nurse Practitioner Family
DX: J44.0 Chronic obstructive pulmonary disease with (acute) lower respiratory infection (principal); R06.02 Shortness of breath; R91.1 Solitary pulmonary nodule; Z72.0 Tobacco use; R09.02 Hypoxemia; R06.2 Wheezing
CPT/HCPCS: 71250

== ENCOUNTER 2016-10-12 21:40 | Observation (INO) | payer MEDICARE, MEDICAID ==
[~2016-10-12] VITALS: Ht 172.7 cm; Wt 59.4 kg
[~2016-10-12 21:40] MED LIST changes: -LISI10TA2 PO
[2016-10-12] MEDS ORDERED: RT-ALBUTEROL/IPRATROPIUM 3 ML (DUONEB) VIAL INH ONE (21:45)
[2016-10-12] MEDS ORDERED: RT-ALBUTEROL SULF 2.5 MG/3 ML PRE-MIX VIAL ONE (21:59)
[2016-10-12 22:00] LABS: BASOPHILS % (AUTO) 0 % (0-10); EOSINOPHILS # (AUTO) 0.2 10^3/uL (0.0-0.3); EOSINOPHILS % (AUTO) 2 % (0-10); LYMPHOCYTES # (AUTO) 2.5 X 10^3 (1.0-4.0); LYMPHOCYTES % (AUTO) 31 % (12-44); MEAN CORPUSCULAR HEMOGLOBIN 32 PG (25-34); MEAN CORPUSCULAR HGB CONC 33 G/DL (32-36); MEAN CORPUSCULAR VOLUME 97 FL (80-99); MEAN PLATELET VOLUME 10.2 FL (7.4-10.4); MONOCYTES # (AUTO) 0.9 X 10^3 (0.0-1.0); MONOCYTES % (AUTO) 11 % (0-12); NEUTROPHILS # (AUTO) 4.6 X 10^3 (1.8-7.8); NEUTROPHILS % (AUTO) 57 % (42-75); PLATELET COUNT 137 10^3/uL (130-400); RED CELL DISTRIBUTION WIDTH 13.6 % (10.0-14.5)
[2016-10-12] MEDS ORDERED: RT-ALBUTEROL SULF 2.5 MG/3 ML PRE-MIX VIAL INH STA (22:01)
[2016-10-12 22:10] LABS: PROTHROMBIN TIME PATIENT 12.9 SEC (12.2-14.7)
[2016-10-12] MEDS ORDERED: LISI10TA2 PO (22:16)
[2016-10-12 22:21] LABS: ALANINE AMINOTRANSFERASE 13 U/L (0-55); ALBUMIN 3.7 G/DL (3.2-4.5); ANION GAP 9 MMOL/L (5-14); ASPARTATE AMINO TRANSFERASE 14 U/L (5-34); BILIRUBIN,TOTAL 0.3 MG/DL (0.1-1.0); BLOOD UREA NITROGEN 10 MG/DL (7-18); BUN/CREATININE RATIO 12; CARBON DIOXIDE 36 MMOL/L (21-32); CHLORIDE 98 MMOL/L (98-107); CREATININE SERUM 0.81 MG/DL (0.60-1.30); GFR ESTIMATED > 60; GLUCOSE 92 MG/DL (70-105); MAGNESIUM 1.9 MG/DL (1.8-2.4); POTASSIUM 4.3 MMOL/L (3.6-5.0); SODIUM 143 MMOL/L (135-145); TOTAL PROTEIN 5.8 G/DL (6.4-8.2)
[2016-10-12 22:27] LABS: MYOGLOBIN SERUM 37.4 NG/ML (10.0-92.0)
[2016-10-12] MEDS ORDERED: methylPREDNISolone 125 MG (Solu-MEDROL) VIAL IVP ONE (23:00)
--- NOTE | 2016-10-12 23:01 | ED Chest Pain ---
General Chief Complaint: Chest Pain Stated Complaint: CHEST PAIN Nursing Triage Note: Pt. advises chest pain that began about 30 minutes ago while at rest. Pt. states hx. of chest pain. Denies recent shortness of breath or illness. Nursing Sepsis Screen: No Definite Risk Source: patient, EMS, old records Exam Limitations: no limitations History of Present Illness Time seen by provider: 21:42 Initial Comments This 61-year-old gentleman presents to the emergency room via EMS with complaints of chest pain and shortness of breath. He also had some mild nausea. He took nitroglycerin 2 at home without much benefit. Pain was initially rated as 8-10. A third nitroglycerin was administered by EMS again with little benefit. Morphine 5 mg was administered followed by a second dose of morphine of 2.5 mg. This reduced his pain to 5/10. He reports the pain as sharp and radiating into the left upper arm all the way to his elbow. He has associated dizziness, nausea, shortness of air, and lightheadedness. He does have a history of CABG and stent placement. Echocardiogram from last year shows ejection fraction of 50 percent. EMS also administered Zofran 4 mg for nausea. No lower extremity symptoms. 324 mg of aspirin was administered by EMS. Patient continues to smoke despite his problems. EKG in field was reviewed and showed no evidence for STEMI. Rhythm was sinus. Allergies and Home Medications Allergies Coded Allergies: budesonide (Verified Allergy, Unknown, 03/23/08) formoterol (Verified Allergy, Unknown, 03/23/08) tetanus toxoid, adsorbed (Verified Allergy, Unknown, 11/24/08) Home Medications Albuterol Sulfate 1 Puff Puff, 2 PUFF IH QID PRN for SHORTNESS OF BREATH, ( Reported) Aripiprazole 30 Mg Tablet, 30 MG PO DAILY, (Reported) Aspirin 81 Mg Tabec, 81 MG PO DAILY, (Reported) Atorvastatin Calcium 80 Mg Tablet, 80 MG PO DAILY, (Reported) Clopidogrel Bisulfate 75 Mg Tablet, 75 MG PO DAILY, (Reported) Fluticasone/Salmeterol 1 Each Blst.w.dev, 1 PUFF IH BID, (Reported) LAST FILLED 04/02/16 #1 INHALER Ipratropium/Albuterol Sulfate 3 Ml Ampul.neb, 3 ML IH Q6H PRN for SHORTNESS OF BREATH, (Reported) LAST FILLED 06/26/15 #60 VIALS Isosorbide Mononitrate 30 Mg Tab.er.24h, 15 MG PO DAILY, (Reported) TAKES 1/2 OF A (30 MG) TABLET Lisinopril 10 Mg Tablet, 10 MG PO DAILY, (Reported) Montelukast Sodium 10 Mg Tablet, 10 MG PO DAILY, (Reported) Nitroglycerin 0.4 Mg Tab.subl, 0.4 MG PO DAILY PRN PRN for CHEST PAIN, (Reported ) [place] 3 Polyunsat Fatty Acids 1,000 Mg Cap, 1,200 MG PO TID, (Reported) Prednisone 10 Mg Tab.ds.pk, 10 MG PO DAILY, #42 Take 6 tabs(60mg)daily,decrease by 1 tab(10mg)every other day. Prescribed by: OUMAR POWERS on 07/25/16 1138 Ranolazine 1,000 Mg Tab.er.12h, 1,000 MG PO BID, (Reported) Sertraline HCl 100 Mg Tablet, 100 MG PO DAILY, (Reported) Tiotropium [place] 1 Inh Aerp, 1 PUFF INH DAILY, (Reported) LAST FILLED 04/02/16 #1 INHALER Past Cmgdoum-Wdmvnw-Mepzkx Hx Patient Social History Alcohol Use: Denies Use Recreational Drug Use: No Type Used: Cigars Former Smoker/When Quit: Aug 21, 2014 Recent Foreign Travel: No Contact w/Someone Who Travel: No Recent Infectious Disease Expo: No Recent Hopitalizations: Yes Immunizations Up To Date Tetanus Booster (TDap): Unknown Date of Pneumonia Vaccine: Mar 23, 2013 Date of Influenza Vaccine: Mar 04, 2013 Seasonal Allergies Seasonal Allergies: No Surgeries HX Surgeries: Yes (HERNIA, CABG; STENTS IN HEART; STENT IN LEFT LEG 2007, hernia) Surgeries: Abdominal, Cardiac, CABG, Tonsillectomy, Vascular Surgery Respiratory Hx Respiratory Disorders: Yes (COPD, ) Respiratory Disorders: Chronic Bronchitis, COPD Cardiovascular Hx Cardiac Disorders: Yes (heart attack, CABG, ) Cardiac Disorders: Coronary Artery Disease, Deep Vein Thrombosis, Heart Attack , High Cholesterol, Hypertension, Peripheral Vascular Neurological Hx Neurological Disorders: No Reproductive System Hx Reproductive Disorders: No Sexually Transmitted Disease: No Genitourinary Hx Genitourinary Disorders: Yes (RENAL INSUFFECIENCY) Gastrointestinal Hx Gastrointestinal Disorders: Yes Gastrointestinal Disorders: Gastroesophageal Reflux, Ulcer Musculoskeletal Hx Musculoskeletal Disorders: No Endocrine Hx Endocrine Disorders: No HEENT HX ENT Disorders: No Cancer Hx Cancer: No Psychosocial Hx Psychiatric Problems: Yes Behavioral Health Disorders: Anxiety, Depression Integumentary HX Skin/Integumentary Disorder: No Blood Transfusions Hx Blood Disorders: No Family Medical History Significant Family History: No Pertinent Family Hx Family Medial History: Diabetes mellitus 19 MOTHER FH: heart disease 19 FATHER Physical Exam Vital Signs Vital Sign - Last 12Hours 10/12/16 10/12/16 10/12/16 21:56 21:57 21:58 Pulse 83 Resp 14 B/P (MAP) 135/72 Pulse Ox 92 O2 Delivery Nasal Cannula O2 Flow Rate 2.00 FiO2 100 Capillary Refill : Less Than 3 Seconds Progress/Results/Core Measures Results/Orders Lab Results Laboratory Tests Test 10/12/16 21:55 Range/Units White Blood Count 8.0 4.3-11.0 10^3/uL Red Blood Count 4.20 L 4.35-5.85 10^6/uL Hemoglobin 13.3 13.3-17.7 G/DL Hematocrit 41 40-54 % Mean Corpuscular Volume 97 80-99 FL Mean Corpuscular Hemoglobin 32 25-34 PG Mean Corpuscular Hemoglobin Concent 33 32-36 G/DL Red Cell Distribution Width 13.6 10.0-14.5 % Platelet Count 137 130-400 10^3/uL Mean Platelet Volume 10.2 7.4-10.4 FL Neutrophils (%) (Auto) 57 42-75 % Lymphocytes (%) (Auto) 31 12-44 % Monocytes (%) (Auto) 11 0-12 % Eosinophils (%) (Auto) 2 0-10 % Basophils (%) (Auto) 0 0-10 % Neutrophils # (Auto) 4.6 1.8-7.8 X 10^3 Lymphocytes # (Auto) 2.5 1.0-4.0 X 10^3 Monocytes # (Auto) 0.9 0.0-1.0 X 10^3 Eosinophils # (Auto) 0.2 0.0-0.3 10^3/uL Basophils # (Auto) 0.0 0.0-0.1 10^3/uL Prothrombin Time 12.9 12.2-14.7 SEC INR Comment 1.0 0.8-1.4 Activated Partial Thromboplast Time 29 24-35 SEC Sodium Level 143 135-145 MMOL/L Potassium Level 4.3 3.6-5.0 MMOL/L Chloride Level 98 98-107 MMOL/L Carbon Dioxide Level 36 H 21-32 MMOL/L Anion Gap 9 5-14 MMOL/L Blood Urea Nitrogen 10 7-18 MG/DL Creatinine 0.81 0.60-1.30 MG/DL Estimat Glomerular Filtration Rate > 60 BUN/Creatinine Ratio 12 Glucose Level 92 70-105 MG/DL Calcium Level 9.0 8.5-10.1 MG/DL Magnesium Level 1.9 1.8-2.4 MG/DL Total Bilirubin 0.3 0.1-1.0 MG/DL Aspartate Amino Transf (AST/SGOT) 14 5-34 U/L Alanine Aminotransferase (ALT/SGPT) 13 0-55 U/L Alkaline Phosphatase 60 40-136 U/L Myoglobin 37.4 10.0-92.0 NG/ML Troponin I < 0.30 <0.30 NG/ML Total Protein 5.8 L 6.4-8.2 G/DL Albumin 3.7 3.2-4.5 G/DL My Orders Orders - IRIS NELSON MD Cbc With Automated Diff (10/12/16 21:43) Magnesium (10/12/16 21:43) Chest 1 View, Ap/Pa Only (10/12/16 21:43) Ekg Tracing (10/12/16 21:43) Cardiac Profile 1 (10/12/16 21:43) Comprehensive Metabolic Panel (10/12/16 21:43) Myoglobin Serum (10/12/16 21:43) Protime With Inr (10/12/16 21:43) Partial Thromboplastin Time (10/12/16 21:43) O2 (10/12/16 21:43) Monitor-Rhythm Ecg Trace Only (10/12/16 21:43) Lipid Panel (10/13/16 06:00) Saline Lock/Iv-Start (10/12/16 21:43) Albuterol/Ipra Inhalation Soln (Duoneb I (10/12/16 21:45) Svn Sm Volume Nebulizer Rt-Rfs (10/12/16 21:43) Albuterol Pre-Mix Nebs (Rt) (Proventil P (10/12/16 22:01) Svn Sm Volume Nebulizer Rt-Rfs (10/12/16 22:01) Albuterol Pre-Mix Nebs (Rt) (Proventil P (10/12/16 21:59) Methylprednisolone Sod Succ (Solu-Medrol (10/12/16 23:00) Medications Given in ED Current Medications Medications Dose Ordered Sig/Shira Route Start Time Stop Time Status Last Admin Dose Admin Albuterol/ Ipratropium 3 ml ONCE ONCE INH 10/12/16 21:45 10/12/16 21:46 DC 10/12/16 21:56 3 ML Vital Signs/I&O Vital Sign - Last 12Hours 10/12/16 10/12/16 10/12/16 10/12/16 21:56 21:57 21:58 21:58 Pulse 83 Resp 14 B/P (MAP) 135/72 Pulse Ox 92 99 97 O2 Delivery Nasal Cannula Nasal Cannula Room Air O2 Flow Rate 2.00 2.00 2.0 FiO2 100 10/12/16 22:04 Pulse Ox 97 O2 Flow Rate 2.00 Blood Pressure Mean: 93 Progress Note : Progress Note Patient reported significant improvement after a DuoNeb and an additional albuterol treatment. Pain reduced to 4/10 prior to admission. Solu-Medrol was administered prior to admission. ECG Initial ECG Impression Date: October 12, 2016 Initial ECG Impression Time: 21:51 Initial ECG Rate: 85 Initial ECG Rhythm: Normal Sinus Initial ECG Intervals: Normal Initial ECG Impression: Normal Initial ECG Comparisson: Unchanged Comment Sinus rhythm with no ST elevation or depression. Left anterior fascicular block. PVC noted. Diagnostic Imaging Diagonstic Imaging: Xray Plain Films/CT/US/NM/MRI: chest Comments Chest x-ray viewed by me. Report not yet available. COPD changes with no other acute abnormalities appreciated. Departure Communication Time/Spoke to Admitting Phy: 22:50 Communication Case reviewed with Dr. Gaspar who agrees to admission with consultation with Dr. Carrion and treatment for COPD exacerbation. Time/Spoke to Consulting Physi: 22:48 Communication/Consulting Case reviewed with Dr. Carrion who agrees with admission for cardiac rule out and continuation of home medications. Impression Impression: Primary Impression: COPD with exacerbation Additional Impressions: Chest pain Qualified Codes: R07.9 - Chest pain, unspecified Coronary artery disease Qualified Codes: I25.10 - Atherosclerotic heart disease of [place] coronary artery without angina pectoris Disposition: ADMITTED INPATIENT Condition: Improved Decision to Admit Reason: Admit from ER (General) Decision to Admit/Date: October 12, 2016 Time/Decision to Admit Time: 22:00 Departure-Patient Inst. Referrals: BRANDON RODAS MD (PCP/Family) Primary Care Physician IRIS NELSON MD October 12, 2016 23:01
--- NOTE | 2016-10-12 23:45 | Consultation-Cardiology ---
HPI-Cardiology Cardiology Consultation Date of Consultation 10/12/16 Date of Admission Indication: chest pain HPI 61 years old gentleman with extensive cardiac history with multiple episodes of chest pain and shortness of breath, patient has been going to cardiac rehabilitation. He was doing well until this afternoon when he started having sudden onset of chest pain described as dull achiness in the retrosternal area and left side of his chest radiating to the left shoulder and left arm associated with shortness of breath and wheezing. Pain was worsening until he came to the emergency room, received multiple treatment with nitroglycerin, currently feeling better, denied any chest pain or shortness of breath, still having audible wheezing. Expressed that he is feeling better at this point. Home Medications & Allergies Allergies: Coded Allergies: budesonide (Verified Allergy, Unknown, 03/23/08) formoterol (Verified Allergy, Unknown, 03/23/08) tetanus toxoid, adsorbed (Verified Allergy, Unknown, 11/24/08) Home Medication List Reviewed: Yes ZRS-[id number]-Fxkatg Hx Patient Social History Marital Status: Employed/Student: unemployed Alcohol Use: Denies Use Recreational Drug Use: No Smoking Status: Current Everyday Smoker Former smoker/When Quit: Aug 21, 2014 Type Used: Cigars, Cigarettes Recent Foreign Travel: No Recent Infectious Disease Expo: No Recent Hopitalizations: Yes Immunizations Up To Date Tetanus Booster (TDap): Unknown Date of Pneumonia Vaccine: Mar 23, 2013 Date of Influenza Vaccine: Mar 04, 2013 Past Medical History Discussed below Family Medical History Significant Family History: No Pertinent Family Hx Family History: Diabetes mellitus 19 MOTHER FH: heart disease 19 FATHER Constitutional: see HPI, malaise EENTM: no symptoms reported, see HPI Respiratory: see HPI, No cough, dyspnea on exertion, No hemoptysis, No orthopnea, No phlegm, short of breath, No stridor, wheezing, No other Cardiovascular: see HPI, chest pain, No edema, No Hx of Intervention, No palpitations, No syncope, No vascular heart diseas, No other Gastrointestinal: no symptoms reported, see HPI Genitourinary: no symptoms reported, see HPI Musculoskeletal: no symptoms reported, see HPI Skin: no symptoms reported, see HPI Psychiatric/Neurological: No Symptoms Reported, See HPI Reviewed Test Results Reviewed Test Results Lab Laboratory Tests Test 10/12/16 21:55 Range/Units White Blood Count 8.0 4.3-11.0 10^3/uL Red Blood Count 4.20 L 4.35-5.85 10^6/uL Hemoglobin 13.3 13.3-17.7 G/DL Hematocrit 41 40-54 % Mean Corpuscular Volume 97 80-99 FL Mean Corpuscular Hemoglobin 32 25-34 PG Mean Corpuscular Hemoglobin Concent 33 32-36 G/DL Red Cell Distribution Width 13.6 10.0-14.5 % Platelet Count 137 130-400 10^3/uL Mean Platelet Volume 10.2 7.4-10.4 FL Neutrophils (%) (Auto) 57 42-75 % Lymphocytes (%) (Auto) 31 12-44 % Monocytes (%) (Auto) 11 0-12 % Eosinophils (%) (Auto) 2 0-10 % Basophils (%) (Auto) 0 0-10 % Neutrophils # (Auto) 4.6 1.8-7.8 X 10^3 Lymphocytes # (Auto) 2.5 1.0-4.0 X 10^3 Monocytes # (Auto) 0.9 0.0-1.0 X 10^3 Eosinophils # (Auto) 0.2 0.0-0.3 10^3/uL Basophils # (Auto) 0.0 0.0-0.1 10^3/uL Prothrombin Time 12.9 12.2-14.7 SEC INR Comment 1.0 0.8-1.4 Activated Partial Thromboplast Time 29 24-35 SEC Sodium Level 143 135-145 MMOL/L Potassium Level 4.3 3.6-5.0 MMOL/L Chloride Level 98 98-107 MMOL/L Carbon Dioxide Level 36 H 21-32 MMOL/L Anion Gap 9 5-14 MMOL/L Blood Urea Nitrogen 10 7-18 MG/DL Creatinine 0.81 0.60-1.30 MG/DL Estimat Glomerular Filtration Rate > 60 BUN/Creatinine Ratio 12 Glucose Level 92 70-105 MG/DL Calcium Level 9.0 8.5-10.1 MG/DL Magnesium Level 1.9 1.8-2.4 MG/DL Total Bilirubin 0.3 0.1-1.0 MG/DL Aspartate Amino Transf (AST/SGOT) 14 5-34 U/L Alanine Aminotransferase (ALT/SGPT) 13 0-55 U/L Alkaline Phosphatase 60 40-136 U/L Myoglobin 37.4 10.0-92.0 NG/ML Troponin I < 0.30 <0.30 NG/ML Total Protein 5.8 L 6.4-8.2 G/DL Albumin 3.7 3.2-4.5 G/DL Physical Exam Vital Signs Vital Sign - Last 12Hours 10/12/16 10/12/16 10/12/16 21:56 21:57 21:58 Pulse 83 Resp 14 B/P (MAP) 135/72 Pulse Ox 92 O2 Delivery Nasal Cannula O2 Flow Rate 2.00 FiO2 100 Capillary Refill : Less Than 3 Seconds General Appearance: No Apparent Distress, WD/WN Eyes: Bilateral Eye EOMI, Bilateral Eye Normal Inspection, Bilateral Eye PERRL HEENT: PERRL/EOMI, TMs Normal, Normal ENT Inspection, Pharynx Normal Neck: Full Range of Motion, Normal Inspection, Non Tender, Supple, Carotid Bruit Respiratory: Chest Non Tender, No Accessory Muscle Use, No Respiratory Distress , Crackles, Decreased Breath Sounds, Wheezing Cardiovascular: Regular Rate, Rhythm, No Edema, No Gallop, No JVD, Normal Peripheral Pulses, Systolic Murmur Gastrointestinal: Normal Bowel Sounds, No Organomegaly, No Pulsatile Mass, Non Tender, Soft Back: Normal Inspection, No CVA Tenderness, No Vertebral Tenderness Extremity: Normal Capillary Refill, Normal Inspection, Normal Range of Motion, Non Tender, No Calf Tenderness, No Pedal Edema Neurologic/Psychiatric: Alert, Oriented x3, No Motor/Sensory Deficits, Normal Mood/Affect Skin: Normal Color, Warm/Dry Lymphatic: No Adenopathy A/P-Cardiology Admission Diagnosis Unstable angina Coronary artery disease Congestive heart failure, chronic compensated left ventricular systolic dysfunction, ischemic cardiomyopathy Acute exacerbation of COPD Assessment/Plan Chest pain, has chronic stable angina, currently unstable angina, no EKG changes , cardiac enzymes first set is negative, no acute EKG changes. Continue to monitor, admit to telemetry. Dyspnea, acute exacerbation of COPD, having active wheezing, start on mask protocol, bronchodilators and monitor. Coronary artery disease, last cardiac catheterization was done in September 2014 showing total occlusion of the LAD at its midportion with occluded vein graft to the LAD, patent stent in the proximal LAD to the diagonal artery, mild disease in the circumflex and right coronary artery, prominent left ventricle with EF 45 percent, educated about compliance with medication. Congestive heart failure, chronic compensated left ventricular systolic dysfunction, ischemic cardiomyopathy, ejection fraction 45 percent. Hypertension, I would restart home medication monitor blood pressure Hyperlipidemia, restart statin, evaluate lipid profile in the morning Chronic tobacco use, still continuing to smoke, educated about smoking cessation Carotid stenosis, followed by [facility] Peripheral arterial disease, followed by [facility] Anxiety. Clinical Quality Measures AMI/AHF: ASA po Prior to arrival: Yes (324) JOSHUA CASTILLO MD October 12, 2016 23:45
[2016-10-13] VITALS (11 sets, daily range): BP systolic 109–122; BP diastolic 57–77
[2016-10-13] MEDS ORDERED: NITROGLYCERIN SUBLINGUAL 0.4 MG TAB (NITROSTAT) SL PRN ×3 (00:15→10:00)
[2016-10-13] MEDS ORDERED: RT-ALBUTEROL SULF 2.5 MG/3 ML PRE-MIX VIAL IH PRN ×2 (01:30→10:15)
[2016-10-13] MEDS ORDERED: morphine INJ 10 MG/ML 1ML (SYR OR VIAL) IV PRN (01:30)
[2016-10-13 05:22] LABS: MEAN PLATELET VOLUME 10.6 FL (7.4-10.4); RED BLOOD COUNT 4.36 10^6/uL (4.35-5.85); RED CELL DISTRIBUTION WIDTH 13.7 % (10.0-14.5); WHITE BLOOD COUNT 5.5 10^3/uL (4.3-11.0)
[2016-10-13] MEDS: methylPREDNISolone 40 MG/ML (Solu-MEDROL) VIAL IV SCH ×2 (05:38→11:24)
[2016-10-13 06:47] LABS: ALANINE AMINOTRANSFERASE 16 U/L (0-55); ALBUMIN 3.8 G/DL (3.2-4.5); ANION GAP 9 MMOL/L (5-14); ASPARTATE AMINO TRANSFERASE 16 U/L (5-34); BILIRUBIN,TOTAL 0.3 MG/DL (0.1-1.0); BLOOD UREA NITROGEN 10 MG/DL (7-18); BUN/CREATININE RATIO 13; CALCIUM 8.9 MG/DL (8.5-10.1); CARBON DIOXIDE 33 MMOL/L (21-32); CHLORIDE 97 MMOL/L (98-107); CHOLESTEROL 145 MG/DL (< 200); CREATINE KINASE 75 U/L (30-200); CREATININE SERUM 0.78 MG/DL (0.60-1.30); DIRECT LDL 58 MG/DL (1-129); GFR ESTIMATED > 60; GLUCOSE 137 MG/DL (70-105); POTASSIUM 4.4 MMOL/L (3.6-5.0); SODIUM 139 MMOL/L (135-145); TOTAL PROTEIN 6.1 G/DL (6.4-8.2); TRIGLYCERIDES 48 MG/DL (<150); VLDL CHOLESTEROL 10 MG/DL (5-40)
[2016-10-13 06:52] LABS: TROPONIN I < 0.30 NG/ML (<0.30)
--- NOTE | 2016-10-13 08:01 | Diagnostic Imaging Report ---
INDICATION: COPD, shortness of breath EXAMINATION: Single view chest 10/12/2016 Comparison made to 07/24/2016 FINDINGS: The lungs are hyperinflated. No infiltrates or effusions. No acute process appreciated. There are sternotomy wires and clips in the mediastinum. IMPRESSION: 1. Findings of hyperinflation likely due to COPD. Other chronic change. No acute abnormality. Dictated by: Dictated on workstation # [id number]
[2016-10-13] MEDS ORDERED: RANOLAZINE ER 500 MG TAB (RANEXA) PO SCH (09:00)
[2016-10-13] MEDS ORDERED: lisINopril 10 MG (PRINIVIL) TAB PO SCH (09:00)
[2016-10-13] MEDS ORDERED: ASPIRIN E.C. 325 MG (ECOTRIN) TABLET PO SCH (09:00)
[2016-10-13] MEDS ORDERED: ASPIRIN E.C. 81 MG (ECOTRIN) TAB PO SCH (09:00)
[2016-10-13] MEDS ORDERED: CLOPIDOGREL 75 MG (PLAVIX) TABLET PO SCH (09:00)
[2016-10-13] MEDS ORDERED: ISOSORBIDE MONONITRATE 30 MG (IMDUR) TAB PO SCH (09:00)
--- NOTE | 2016-10-13 09:56 | History & Physical-Hospitalist ---
HPI History of Present Illness: HPI/Chief Complaint this is a 60-year-old white male with an extensive history of heart disease and COPD O2 dependent. He was watching his son michele when he began having chest discomfort on the left side that radiated down his left arm. He presented to the emergency room where his finally relieved with nitroglycerin. He had not been having any increased shortness of breath or chest pain recently. He is a somewhat poor historian uncertain of when his last heart catheter or stress test was. He notes that he continues to smoke despite his best efforts. He does say that he's been compliant with his medication. Currently he is pain- free and anxious to go home Source: patient, old records Exam Limitations: no limitations Date Seen 10/13/16 Attending Physician Herbert Gaspar MD PCP Brandon Rodas MD Referring Physician Date of Admission October 12, 2016 at 23:08 Home Medications & Allergies Home Medications Reviewed patient Home Medication Reconciliation Form Allergies Allergies Coded Allergies budesonide (Verified Allergy, Unknown, 03/23/08) formoterol (Verified Allergy, Unknown, 03/23/08) tetanus toxoid, adsorbed (Verified Allergy, Unknown, 11/24/08) Past Eimnkit-Knpclg-Seymom Hx Patient Social History Marrital Status: Employed/Student: unemployed Alcohol Use: Past History Recreational Drug Use: No Smoking Status: Current Everyday Smoker Former smoker/When Quit: Aug 21, 2014 Type Used: Cigarettes Physical Abuse Screen: No Sexual Abuse: No Recent Foreign Travel: No Contact w/other who traveled: No Recent Hopitalizations: No Recent Infectious Disease Expo: No Immunizations Up To Date Tetanus Booster (TDap): Unknown Date of Pneumonia Vaccine: Mar 23, 2013 Date of Influenza Vaccine: Mar 04, 2013 Seasonal Allergies Seasonal Allergies: No Surgeries HX Surgeries: Yes (HERNIA, CABG; STENTS IN HEART; STENT IN LEFT LEG 2007, hernia) Surgeries: Abdominal, Cardiac, CABG, Tonsillectomy, Vascular Surgery Respiratory Hx Respiratory Disorders: Yes (COPD, ) Respiratory Disorders: COPD Cardiovascular Hx Cardiovascular Disorders: Yes (heart attack, CABG, ) Cardiac Disorders: Coronary Artery Disease, Deep Vein Thrombosis, Heart Attack , High Cholesterol, Hypertension, Peripheral Vascular Neurological Hx Neurological Disorders: No Reproductive System Hx Reproductive Disorders: No Sexually Transmitted Disease: No Genitourinary Hx Genitourinary Disorders: Yes (RENAL INSUFFECIENCY) Gastrointestinal Hx Gastrointestinal Disorders: Yes Gastrointestinal Disorders: Gastroesophageal Reflux, Ulcer Musculoskeletal Hx Musculoskeletal Disorders: No Musculoskeletal Disorders: Arthritis Endocrine Hx Endocrine Disorders: No HEENT HX ENT Disorders: No Cancer Hx Cancer: No Psychosocial Hx Psychiatric Problems: Yes Behavioral Health Disorders: Schizophrenia, Depression Integumentary HX Skin/Integumentary Disorder: No Blood Transfusions Hx Blood Disorders: No Adverse Reaction to a Blood Tr: No Family Medical History Significant Family History: No Pertinent Family Hx Family Hx: Diabetes mellitus 19 MOTHER FH: heart disease 19 FATHER Review of Systems Constitutional: see HPI EENTM: no symptoms reported Respiratory: dyspnea on exertion, short of breath Cardiovascular: chest pain Gastrointestinal: no symptoms reported Genitourinary: no symptoms reported Musculoskeletal: no symptoms reported Skin: no symptoms reported Psychiatric/Neurological: No Symptoms Reported Physical Exam Physical Exam Vital Signs Vital Sign - Last 12Hours 10/12/16 10/12/16 10/12/16 10/13/16 21:56 21:57 21:58 00:00 Temp 99.0 Pulse 83 Resp 14 B/P (MAP) 135/72 Pulse Ox 92 O2 Delivery Nasal Cannula O2 Flow Rate 2.00 FiO2 100 Capillary Refill : Less Than 3 Seconds General Appearance: Other (appears older than stated age) HEENT: Normal ENT Inspection Neck: Normal Inspection, Non Tender, Supple Respiratory: Decreased Breath Sounds, Rhonci, Wheezing Cardiovascular: Regular Rate, Rhythm, No Gallop, Systolic Murmur, Other ( decreased peripheral pulses) Gastrointestinal: Normal Bowel Sounds, No Organomegaly, Non Tender, Soft Back: Normal Inspection Extremity: Non Tender, No Calf Tenderness, Slow Capillary Refill Neurologic/Psychiatric: Alert, Oriented x3, Depressed Affect Skin: Normal Color, Warm/Dry Results Results/Procedures Lab Laboratory Tests 10/12/16 21:55 10/13/16 04:25 Assessment/Plan Admission Diagnosis Chest pain, has chronic stable angina, no EKG changes, cardiac enzymes are negative. Continue to monitor, admit to telemetry. further evaluation per Dr. Carrion-patient does have an optimized lipid profile Dyspnea, slight exacerbation of COPD, having active wheezing, on mat protocol, bronchodilators and monitor, IV steroids Coronary artery disease, last cardiac catheterization was done in September 2014 showing total occlusion of the LAD at its midportion with occluded vein graft to the LAD, patent stent in the proximal LAD to the diagonal artery, mild disease in the circumflex and right coronary artery, prominent left ventricle with EF 45 percent, patient says he is compliant with medication. Congestive heart failure, chronic compensated left ventricular systolic dysfunction, ischemic cardiomyopathy, ejection fraction 45 percent. Hypertension, restart home medication monitor blood pressure Hyperlipidemia, restart statin, evaluate lipid profile in the morning Chronic tobacco use, still continuing to smoke, educated about smoking cessation Carotid stenosis, followed by [facility] Peripheral arterial disease, followed by [facility] Anxiety. new thrombocytopenia uncertain etiology-the mean platelet volume is high, so this may be artifact from machine counting Pt is anxious to go home-will discuss with Copy Copies To 1: BRANDON RODAS MD Clinical Quality Measures AMI/AHF: ASA po Prior to arrival: Yes (324) DVT/VTE Risk/Contraindication: Risk Factor Score Per Nursin RFS Level Per Nursing on Admit: 4+=Very High HERBERT GASPAR MD October 13, 2016 09:56
[2016-10-13] MEDS ORDERED: RT-ALBUTEROL/IPRATROPIUM 3 ML (DUONEB) VIAL IH PRN (10:00)
[2016-10-13] MEDS ORDERED: RT-ALBUTEROL HFA (VENTOLIN) PER PUFF IH PRN (10:00)
--- NOTE | 2016-10-13 10:51 | Cardiology Progress Note ---
Subjective Subjective/Events-last exam patient is feeling better, asking to go home, still having active wheezing. Denied any chest pain Review of Systems General: No Chills, No Night Sweats, No Fatigue, No Malaise, No Appetite, No Other HEENT: No Head Aches, No Visual Changes, No Eye Pain, No Ear Pain, No Dysphasia , No Sinus Congestion, No Post Nasal Drip, No Sore Throat, No Other Pulmonary: Dyspnea, No Cough, No Pleuritic Chest Pain, No Other Cardiovascular: No: Chest Pain, Edema, Lt Headedness, Orthopnea, Other, Palpitations, Paroxysmal Noc. Dyspnea Objective-Cardiology Exam Last Set of Vital Signs Vital Signs 10/12/16 10/13/16 21:57 09:00 O2 Flow Rate 2.00 FiO2 100 Capillary Refill : Less Than 3 Seconds General: Alert, Oriented X3, Cooperative HEENT: Atraumatic, PERRLA Neck: Supple, No JVD, No Thyromegaly Lungs: Normal Air Movement, Other (Bilateral wheezing, bilateral rhonchi) Heart: Regular Rate, Normal S1, Normal S2, No Murmurs Abdomen: Normal Bowel Sounds, Soft, No Tenderness, No Hepatosplenomegaly, No Masses Extremities: No Clubbing, No Cyanosis, No Edema, Normal Pulses, No Tenderness/ Swelling Skin: No Rashes, No Breakdown, No Significant Lesion Neuro: Normal Gait, Normal Speech, Strength at 5/5 X4 Ext, Normal Tone, Sensation Intact Psych/Mental Status: Mental Status NL, Mood NL Results Lab Laboratory Tests 10/12/16 21:55 10/13/16 04:25 A/P-Cardiology Admission Diagnosis Unstable angina Coronary artery disease Congestive heart failure, chronic compensated left ventricular systolic dysfunction, ischemic cardiomyopathy Acute exacerbation of COPD Assessment/Plan Chest pain, has chronic stable angina, currently chest pain-free, cardiac enzymes are negative, patient is asking to go home, from cardiology standpoint he may discharge and follow-up as an outpatient Dyspnea, acute exacerbation of COPD, having active wheezing, has been on chronic steroid, received IV dose, management per primary care physician. Coronary artery disease, last cardiac catheterization was done in September 2014 showing total occlusion of the LAD at its midportion with occluded vein graft to the LAD, patent stent in the proximal LAD to the diagonal artery, mild disease in the circumflex and right coronary artery, prominent left ventricle with EF 45 percent, educated about compliance with medication. Congestive heart failure, chronic compensated left ventricular systolic dysfunction, ischemic cardiomyopathy, ejection fraction 45 percent. Hypertension, continue to monitor blood pressure Hyperlipidemia, continue to monitor lipids Chronic tobacco use, still continuing to smoke, educated about smoking cessation Carotid stenosis, followed by [facility] Peripheral arterial disease, followed by [facility] Anxiety. Clinical Quality Measures AMI/AHF: ASA po Prior to arrival: Yes (324) DVT/VTE Risk/Contraindication: Risk Factor Score Per Nursin RFS Level Per Nursing on Admit: 4+=Very High Contraindications-Pharm: Other *list below* Other: on other blood thinner JOSHUA CASTILLO MD October 13, 2016 10:51
[2016-10-13] MEDS ORDERED: SERTRALINE 100 MG (ZOLOFT) TAB PO SCH (11:00)
[2016-10-13] MEDS ORDERED: RT-ADVAIR HFA 115/21 MCG PER PUFF IH SCH ×2 (11:00→20:00)
[2016-10-13] MEDS ORDERED: ARIPIPRAZOLE 15 MG (ABILIFY) TAB PO SCH (11:00)
[2016-10-13] MEDS: RT-ALBUTEROL/IPRATROPIUM 3 ML (DUONEB) VIAL IH SCH ×2 (11:52→11:53)
[2016-10-13] MEDS ORDERED: OMEGA 3 (FISH OIL) 1000 MG CAP PO SCH (12:00)
[2016-10-13] MEDS ORDERED: NON-FORMULARY MEDICATION 1 EA EA (Ranolazine (Ranexa) 1,000 MG) PO SCH (21:00)
[2016-10-13] MEDS ORDERED: NON-FORMULARY MEDICATION 1 EA EA (Fluticasone/Salmeterol (Advair 250-50 Diskus) 1 PUFF) IH SCH (21:00)
[2016-10-14] MEDS ORDERED: MONTELUKAST 10 MG (SINGULAIR) TAB PO SCH (09:00)
[2016-10-14] MEDS ORDERED: ARIPIPRAZOLE 30 MG PO SCH (09:00)
[2016-10-14] MEDS ORDERED: ATORVASTATIN 80 MG (LIPITOR) TABLET PO SCH (09:00)
== END 2016-10-13 11:49 | disposition home or self-care (01) ==
LOC: EDUNIT# 21:40 → ER 21:42 → 4TH 23:08 → UNDOADMOB 23:08 → 4TH 10-13 00:10 → UNDODISOB 10-13 14:30
PROVIDERS: ADMIT Internal Medicine; ATTEND Internal Medicine
DX: I25.110 Atherosclerotic heart disease of native coronary artery with unstable angina pectoris (principal); I25.710 Atherosclerosis of autologous vein coronary artery bypass graft(s) with unstable angina pectoris; J44.1 Chronic obstructive pulmonary disease with (acute) exacerbation; I50.22 Chronic systolic (congestive) heart failure; I25.5 Ischemic cardiomyopathy; I11.0 Hypertensive heart disease with heart failure; E78.5 Hyperlipidemia, unspecified; F17.210 Nicotine dependence, cigarettes, uncomplicated; I73.9 Peripheral vascular disease, unspecified; F41.9 Anxiety disorder, unspecified; D69.6 Thrombocytopenia, unspecified; K21.9 Gastro-esophageal reflux disease without esophagitis; Z99.81 Dependence on supplemental oxygen; Z95.1 Presence of aortocoronary bypass graft; Z95.5 Presence of coronary angioplasty implant and graft; Z86.718 Personal history of other venous thrombosis and embolism
CPT/HCPCS: 36415; 71010; 80053; 80061; 82550; 83735; 83874; 84484; 85025; 85027; 85610; 85730; 93005; 93041; 94640; 94760; 96374; G0378

== ENCOUNTER → 2017-01-22 | Outpatient (CLI) | payer MEDICARE, MEDICAID ==
[~2017-01-22] MED LIST changes: +LISI10TA2 PO
[2017-01-22 13:34] LABS: ANION GAP 9 MMOL/L (5-14); BLOOD UREA NITROGEN 13 MG/DL (7-18); BUN/CREATININE RATIO 15; CALCIUM 9.7 MG/DL (8.5-10.1); CARBON DIOXIDE 37 MMOL/L (21-32); CHLORIDE 96 MMOL/L (98-107); CREATININE SERUM 0.85 MG/DL (0.60-1.30); GFR ESTIMATED > 60; GLUCOSE 116 MG/DL (70-105); SODIUM 142 MMOL/L (135-145)
== END ==
LOC: LAB 13:01
PROVIDERS: ATTEND Nurse Practitioner Family
DX: I70.212 Atherosclerosis of native arteries of extremities with intermittent claudication, left leg (principal)
CPT/HCPCS: 36415; 80048

== ENCOUNTER 2017-05-05 16:44 | Observation (INO) | payer MEDICARE, MEDICAID ==
[~2017-05-05] VITALS: Ht 172.7 cm; Wt 59.4 kg
[2017-05-05] VITALS (12 sets, daily range): BP systolic 97–126; BP diastolic 56–73
--- NOTE | 2017-05-05 16:57 | ED Neurological Problem ---
General Stated Complaint: STROKE LIKE SYMPTOMS Source: patient Exam Limitations: no limitations History of Present Illness Time seen by provider: 16:53 Initial Comments Sent to ER for evaluation after notifying Dr. Carrion's office of right-sided weakness. Patient reports right leg weakness that has been intermittent for the past week and right arm weakness that has been constant for the past week. He denies any other deficit. He states this is caused him to drop a coffee cup twice while holding it with the right hand. Currently, the right leg weakness seems to have resolved and he feels as though both of his legs are equal in strength but he does feel as though the right arm is weak. He is on Plavix. He has COPD. He wears oxygen [id number] but continues to smoke. There are no new deficits within the past 48 hours. Additionally, he does report sore throat for 5-7 days as well as an increased productive cough. Timing/Duration: 1 week Allergies and Home Medications Allergies Coded Allergies: budesonide (Verified Allergy, Unknown, 03/23/08) formoterol (Verified Allergy, Unknown, 03/23/08) tetanus toxoid, adsorbed (Verified Allergy, Unknown, 11/24/08) Home Medications Albuterol Sulfate 1 Puff Puff, 2 PUFF IH QID PRN for SHORTNESS OF BREATH, ( Reported) Aripiprazole 30 Mg Tablet, 30 MG PO DAILY, (Reported) Aspirin 81 Mg Tabec, 81 MG PO DAILY, (Reported) Atorvastatin Calcium 80 Mg Tablet, 80 MG PO DAILY, (Reported) Clopidogrel Bisulfate 75 Mg Tablet, 75 MG PO DAILY, (Reported) Fluticasone/Salmeterol 1 Each Blst.w.dev, 1 PUFF IH BID, (Reported) LAST FILLED 04/02/16 #1 INHALER Ipratropium/Albuterol Sulfate 3 Ml Ampul.neb, 3 ML IH Q6H PRN for SHORTNESS OF BREATH, (Reported) LAST FILLED 06/26/15 #60 VIALS Isosorbide Mononitrate 30 Mg Tab.er.24h, 15 MG PO DAILY, (Reported) TAKES 1/2 OF A (30 MG) TABLET Lisinopril 10 Mg Tablet, 10 MG PO DAILY, (Reported) Montelukast Sodium 10 Mg Tablet, 10 MG PO DAILY, (Reported) Nitroglycerin 0.4 Mg Tab.subl, 0.4 MG PO DAILY PRN PRN for CHEST PAIN, (Reported ) [place] 3 Polyunsat Fatty Acids 1,000 Mg Cap, 1,200 MG PO TID, (Reported) Prednisone 10 Mg Tab.ds.pk, 10 MG PO DAILY, #42 Take 6 tabs(60mg)daily,decrease by 1 tab(10mg)every other day. Prescribed by: OUMAR POWERS on 07/25/16 1138 Ranolazine 1,000 Mg Tab.er.12h, 1,000 MG PO BID, (Reported) Sertraline HCl 100 Mg Tablet, 100 MG PO DAILY, (Reported) Tiotropium [place] 1 Inh Aerp, 1 PUFF INH DAILY, (Reported) LAST FILLED 04/02/16 #1 INHALER Constitutional: see HPI Eyes: No Symptoms Reported Ears, Nose, Mouth, Throat: no symptoms reported Respiratory: no symptoms reported Cardiovascular: no symptoms reported Genitourinary: no symptoms reported Musculoskeletal: no symptoms reported Skin: no symptoms reported Psychiatric/Neurological: No Symptoms Reported Endocrine: No Symptoms Reported Past Guhzbjv-Jrgpoy-Mmsymc Hx Patient Social History Type Used: Cigarettes Recent Hopitalizations: No Immunizations Up To Date Tetanus Booster (TDap): Unknown PED Vaccines UTD: No Date of Pneumonia Vaccine: Mar 23, 2013 Date of Influenza Vaccine: Mar 04, 2013 Seasonal Allergies Seasonal Allergies: No Surgeries History of Surgeries: Yes (1 VESSEL CABG, CARDIAC STENTS X 4; LEFT LEG STENT ) Surgeries: Abdominal, Cardiac, CABG, Coronary Stent, Tonsillectomy, Vascular Surgery Respiratory History of Respiratory Disorde: Yes Respiratory Disorders: COPD Currently Using CPAP: No Currently Using BIPAP: No Cardiovascular History of Cardiac Disorders: Yes (CAROTID DISEASE; LEFT LEG STENT ) Cardiac Disorders: Coronary Artery Disease, Deep Vein Thrombosis, Heart Attack , High Cholesterol, Hypertension, Peripheral Vascular Neurological History of Neurological Disord: No Reproductive System Hx Reproductive Disorders: No Sexually Transmitted Disease: No Genitourinary History of Genitourinary Disor: No Gastrointestinal History of Gastrointestinal Di: Yes Gastrointestinal Disorders: Gastroesophageal Reflux, Ulcer Musculoskeletal History of Musculoskeletal Dis: Yes Musculoskeletal Disorders: Arthritis Endocrine History of Endocrine Disorders: No HEENT History of HEENT Disorders: No Cancer History of Cancer: No Psychosocial History of Psychiatric Problem: Yes Behavioral Health Disorders: Sleep Difficulties, Schizophrenia, Depression Integumentary History of Skin or Integumenta: No Blood Transfusions History of Blood Disorders: No Adverse Reaction to a Blood Tr: No Family Medical History Significant Family History: No Pertinent Family Hx Family Medial History: Diabetes mellitus 19 MOTHER FH: heart disease 19 FATHER Physical Exam Vital Signs Vital Sign - Last 12Hours 05/05/17 05/05/17 16:45 19:11 Temp 98.1 Pulse 78 Resp 16 B/P (MAP) 126/73 Pulse Ox 95 O2 Delivery Nasal Cannula O2 Flow Rate 2.00 Capillary Refill : General Appearance: WD/WN, no apparent distress, other (appears chronically ill and older than stated age. He arrives wearing his oxygen. He is edentulous.) HEENT: PERRL/EOMI, normal ENT inspection Neck: non-tender, full range of motion Respiratory: normal breath sounds, no respiratory distress, no accessory muscle use Cardiovascular: regular rate, rhythm, no murmur Gastrointestinal: normal bowel sounds, non tender, soft Extremities: normal range of motion, non-tender Neurologic/Psychiatric: alert, normal mood/affect, oriented x 3 Crainal Nerves: normal hearing, normal speech, PERRL Skin: normal color, warm/dry Comments He reports some sensory loss in the right arm. 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 Lower extremity sensation and strength is also equal bilaterally. He gets a score of 1 on the NIH stroke scale because of sensory loss in the right arm. There is no facial droop. Stroke Onset of Symptoms Date of Onset of Symptoms: Apr 28, 2017 NIH Stroke Scale Assessment Select: Initial Level of Consciousness: 0=Alert (0), Level of Consciousness- Questions: 0=Answers both month/age (0), Gaze: Normal (0), Visual Mcpherson: 0=No visual loss (0), Facial Movement (Facial Paresis): 0=Normal symmetrical mnt (0) , Motor Function-Arms Right: 0=No drift (0), Motor Function-Arms Left: 0=No drift (0), Motor Function-Legs Right: 0=No drift (0), Motor Function-Legs Left: 0=No drift (0), Limb Ataxia: 0=Absent (0), Sensory: 1=Mild to Moderate loss (1) , Best Language: 0=No aphasia (0), Dysarthria: 0=Normal (0), Extinction & Inattention: 0=No abnormality (0), Total: 1 Progress/Results/Core Measures Results/Orders Lab Results Laboratory Tests Test 05/05/17 16:50 05/05/17 16:54 05/05/17 17:55 05/05/17 19:15 Range/Units White Blood Count 10.6 4.3-11.0 10^3/uL Red Blood Count 4.29 L 4.35-5.85 10^6/uL Hemoglobin 13.8 13.3-17.7 G/DL Hematocrit 42 40-54 % Mean Corpuscular Volume 97 80-99 FL Mean Corpuscular Hemoglobin 32 25-34 PG Mean Corpuscular Hemoglobin Concent 33 32-36 G/DL Red Cell Distribution Width 12.7 10.0-14.5 % Platelet Count 171 130-400 10^3/uL Mean Platelet Volume 9.5 7.4-10.4 FL Neutrophils (%) (Auto) 81 H 42-75 % Lymphocytes (%) (Auto) 13 12-44 % Monocytes (%) (Auto) 5 0-12 % Eosinophils (%) (Auto) 0 0-10 % Basophils (%) (Auto) 0 0-10 % Neutrophils # (Auto) 8.6 H 1.8-7.8 X 10^3 Lymphocytes # (Auto) 1.4 1.0-4.0 X 10^3 Monocytes # (Auto) 0.6 0.0-1.0 X 10^3 Eosinophils # (Auto) 0.0 0.0-0.3 10^3/uL Basophils # (Auto) 0.0 0.0-0.1 10^3/uL Prothrombin Time 12.3 12.2-14.7 SEC INR Comment 0.9 0.8-1.4 Activated Partial Thromboplast Time 28 24-35 SEC D-Dimer 0.38 0.00-0.49 UG/ML Sodium Level 139 135-145 MMOL/L Potassium Level 4.4 3.6-5.0 MMOL/L Chloride Level 96 L 98-107 MMOL/L Carbon Dioxide Level 37 H 21-32 MMOL/L Anion Gap 6 5-14 MMOL/L Blood Urea Nitrogen 9 7-18 MG/DL Creatinine 0.88 0.60-1.30 MG/DL Estimat Glomerular Filtration Rate > 60 BUN/Creatinine Ratio 10 Glucose Level 111 H 70-105 MG/DL Calcium Level 9.3 8.5-10.1 MG/DL Total Bilirubin 0.5 0.1-1.0 MG/DL Aspartate Amino Transf (AST/SGOT) 19 5-34 U/L Alanine Aminotransferase (ALT/SGPT) 23 0-55 U/L Alkaline Phosphatase 72 40-136 U/L Total Protein 7.0 6.4-8.2 GM/DL Albumin 4.1 3.2-4.5 GM/DL Serum Alcohol < 10 <10 MG/DL Monoscreen NEGATIVE NEGATIVE Urine Color YELLOW Urine Clarity CLEAR Urine pH 8 5-9 Urine Specific [place] 1.010 L 1.016-1.022 Urine Protein NEGATIVE NEGATIVE Urine Glucose (UA) NEGATIVE NEGATIVE Urine Ketones NEGATIVE NEGATIVE Urine Nitrite NEGATIVE NEGATIVE Urine Bilirubin NEGATIVE NEGATIVE Urine Urobilinogen NORMAL NORMAL MG/DL Urine Leukocyte Esterase NEGATIVE NEGATIVE Urine RBC (Auto) NEGATIVE NEGATIVE Urine RBC NONE /HPF Urine WBC NONE /HPF Urine Squamous Epithelial Cells NONE /HPF Urine Crystals NONE /LPF Urine Bacteria NEGATIVE /HPF Urine Casts NONE /LPF Urine Mucus NEGATIVE /LPF Urine Culture Indicated NO Urine Opiates Screen NEGATIVE NEGATIVE Urine Oxycodone Screen NEGATIVE NEGATIVE Urine Methadone Screen NEGATIVE NEGATIVE Urine Propoxyphene Screen NEGATIVE NEGATIVE Urine Barbiturates Screen NEGATIVE NEGATIVE Ur Tricyclic Antidepressants Screen NEGATIVE NEGATIVE Urine Phencyclidine Screen NEGATIVE NEGATIVE Urine Amphetamines Screen NEGATIVE NEGATIVE Urine Methamphetamines Screen NEGATIVE NEGATIVE Urine Benzodiazepines Screen NEGATIVE NEGATIVE Urine Cocaine Screen NEGATIVE NEGATIVE Urine Cannabinoids Screen NEGATIVE NEGATIVE Group A Streptococcus Screen NEGATIVE NEGATIVE My Orders Orders - KAYCEE BAHENA BLENDING SUPERVISOR Cbc With Automated Diff (05/05/17 16:50) Comprehensive Metabolic Panel (05/05/17 16:50) Fibrin Degradation Products (05/05/17 16:50) Protime With Inr (05/05/17 16:50) Partial Thromboplastin Time (05/05/17 16:50) Ua Culture If Indicated (05/05/17 16:50) Drug Screen Stat (Urine) (05/05/17 16:50) Alcohol (05/05/17 16:50) Chest 1 View, Ap/Pa Only (05/05/17 16:50) Ekg Tracing (05/05/17 16:50) Ct Angio Head/Neck (05/05/17 16:58) Iohexol Injection (Omnipaque 350 Mg/Ml 1 (11/27/17 17:15) Ns (Ivpb) (Sodium Chloride 0.9% Ivpb Bag (05/05/17 17:15) Albuterol/Ipra Inhalation Soln (Duoneb I (05/05/17 17:30) Svn Sm Volume Nebulizer Rt-Rfs (05/05/17 17:25) Methylprednisolone Sod Succ (Solu-Medrol (05/05/17 17:30) Rapid Strep A Screen (05/05/17 18:50) Monotest (05/05/17 18:50) Ceftriaxone Injection (Rocephin Injectio (05/05/17 19:00) Medications Given in ED Current Medications Medications Dose Ordered Sig/Shira Route Start Time Stop Time Status Last Admin Dose Admin Albuterol/ Ipratropium 3 ml ONCE ONCE INH 05/05/17 17:30 05/05/17 17:31 DC 05/05/17 17:35 3 ML Ceftriaxone Sodium 1000 mg/ Sodium Chloride 50 ml @ 100 mls/hr ONCE ONCE IV 05/05/17 19:00 05/05/17 19:29 DC 05/05/17 19:10 100 MLS/HR Iohexol 100 ml ONCE ONCE IV 05/05/17 17:15 05/05/17 17:21 DC 05/05/17 17:15 85 ML Methylprednisolone Sodium Succinate 125 mg ONCE ONCE IVP 05/05/17 17:30 05/05/17 17:31 DC 05/05/17 17:47 125 MG Sodium Chloride 100 ml ONCE ONCE IV 05/05/17 17:15 05/05/17 17:21 DC 05/05/17 17:15 80 ML Vital Signs/I&O Vital Sign - Last 12Hours 05/05/17 05/05/17 05/05/17 05/05/17 16:45 16:50 17:35 19:11 Temp 98.1 Pulse 78 78 65 Resp 16 B/P (MAP) 126/73 126/73 110/63 Pulse Ox 95 95 94 95 O2 Delivery Nasal Cannula Nasal Cannula O2 Flow Rate 2.00 2.00 Departure Communication (Admissions) Time/Spoke to Admitting Phy: 19:[address] Horowitz accepts patient, recommends consult to Dr Roca from ENT. Time/Spoke to Consulting Phy: 19:39 Communication/Consulting I shi Barger, nurse practitioner on-call for Dr. Roca of the consult. They will be out to see him tomorrow. Progress Notes 1920-Pt sitting upright in bed, swallowing own secretions, no stridor, speak in full sentences. Despite CT neck appearance, clinically he is stable. Given his COPD status with O2 requirements I will hold off on intubation as he would be very difficult to extubate. Will admit, steroids, antibiotics, consult to ENT. Impression Impression: Primary Impression: right arm sensory loss Additional Impressions: COPD with exacerbation Pharyngeal or nasopharyngeal edema Disposition: ADMITTED INPATIENT Condition: Stable Admissions Decision to Admit Reason: Admit from ER (General) Decision to Admit/Date: May 05, 2017 Time/Decision to Admit Time: 19:26 Departure-Patient Inst. Referrals: BRANDON RODAS MD (PCP/Family) Primary Care Physician KAYCEE BAHENA APRN May 05, 2017 16:57
[2017-05-05 17:03] LABS: BASOPHILS % (AUTO) 0 % (0-10); EOSINOPHILS % (AUTO) 0 % (0-10); LYMPHOCYTES # (AUTO) 1.4 X 10^3 (1.0-4.0); LYMPHOCYTES % (AUTO) 13 % (12-44); MEAN CORPUSCULAR HEMOGLOBIN 32 PG (25-34); MEAN CORPUSCULAR HGB CONC 33 G/DL (32-36); MEAN CORPUSCULAR VOLUME 97 FL (80-99); MEAN PLATELET VOLUME 9.5 FL (7.4-10.4); MONOCYTES # (AUTO) 0.6 X 10^3 (0.0-1.0); MONOCYTES % (AUTO) 5 % (0-12); NEUTROPHILS # (AUTO) 8.6 X 10^3 (1.8-7.8); NEUTROPHILS % (AUTO) 81 % (42-75); PLATELET COUNT 171 10^3/uL (130-400); RED BLOOD COUNT 4.29 10^6/uL (4.35-5.85); RED CELL DISTRIBUTION WIDTH 12.7 % (10.0-14.5); WHITE BLOOD COUNT 10.6 10^3/uL (4.3-11.0)
[2017-05-05 17:13] LABS: INR 0.9 (0.8-1.4); PROTHROMBIN TIME PATIENT 12.3 SEC (12.2-14.7)
[2017-05-05] MEDS ORDERED: IOHEXOL 350 MG/ML 100 ML (OMNIPAQUE 350) VIAL IV ONE (17:15)
[2017-05-05] MEDS ORDERED: NS 100 ML (IVPB) BAG IV ONE (17:15)
[2017-05-05 17:24] LABS: ALANINE AMINOTRANSFERASE 23 U/L (0-55); ALBUMIN 4.1 GM/DL (3.2-4.5); ALCOHOL < 10 MG/DL (<10); ANION GAP 6 MMOL/L (5-14); ASPARTATE AMINO TRANSFERASE 19 U/L (5-34); BILIRUBIN,TOTAL 0.5 MG/DL (0.1-1.0); BLOOD UREA NITROGEN 9 MG/DL (7-18); BUN/CREATININE RATIO 10; CALCIUM 9.3 MG/DL (8.5-10.1); CARBON DIOXIDE 37 MMOL/L (21-32); CHLORIDE 96 MMOL/L (98-107); CREATININE SERUM 0.88 MG/DL (0.60-1.30); GFR ESTIMATED > 60; GLUCOSE 111 MG/DL (70-105); POTASSIUM 4.4 MMOL/L (3.6-5.0); SODIUM 139 MMOL/L (135-145)
--- NOTE | 2017-05-05 17:24 | Diagnostic Imaging Report ---
INDICATION: Right-sided weakness and chest tightness. PA chest obtained at 5:29 p.m. and compared to 03/22/2017. FINDINGS: Patient has had prior sternotomy. The heart is normal in size. The lungs are clear. There is no pneumothorax or pleural fluid. There is some peribronchial thickening. IMPRESSION: Post-sternotomy changes. No focal infiltrate or pneumothorax or pleural fluid. There is some peribronchial thickening. Dictated by: Dictated on workstation # [id number]
[2017-05-05] MEDS ORDERED: methylPREDNISolone 125 MG (Solu-MEDROL) VIAL IVP ONE (17:30)
[2017-05-05] MEDS ORDERED: RT-ALBUTEROL/IPRATROPIUM 3 ML (DUONEB) VIAL INH ONE (17:30)
[2017-05-05 18:02] LABS: BILIRUBIN,URINE NEGATIVE (NEGATIVE); KETONES,URINE NEGATIVE (NEGATIVE); LEUKOCYTE ESTERASE ,URINE NEGATIVE (NEGATIVE); NITRITE,URINE NEGATIVE (NEGATIVE); PH,URINE 8 (5-9); PROTEIN,URINE NEGATIVE (NEGATIVE); UROBILINOGEN,URINE NORMAL (NORMAL)
[2017-05-05] MEDS ORDERED: cefTRIAXone INJECTION 1,000 MG in NS (IVPB) 50 ML IV ONE (19:00)
--- NOTE | 2017-05-05 19:03 | Diagnostic Imaging Report ---
PROCEDURE: CT angiography of the head and CT angiography of the neck with and without contrast. TECHNIQUE: Contiguous noncontrast images were obtained from the skull base through the vertex. After intravenous contrast administration, helical CT angiography of the neck was performed. Source data was reformatted into multiple MIP projections. Delayed post contrast acquisition was also obtained. INDICATION: Stroke like symptoms with right weakness and drooling out right mouth. FINDINGS: The ventricles and sulci are within normal limits. There is no hydrocephalus. There is no midline shift. There is no intracranial mass, hemorrhage or extra-axial fluid collection. The calvarium is intact. The sinuses and mastoid air cells are clear. There is a 6 mm partially partially solid nodule in the anterior aspect of the right upper lobe. The lung apices are otherwise clear. There is marked symmetric prominence of adenoidal tissue bilaterally. These abut the soft palate markedly narrowing the nasopharyngeal airway. The oral pharyngeal airway also appears symmetrically thickened and prominent. There is marked narrowing of the oral pharyngeal airway. The hypopharyngeal airway is unremarkable. The epiglottis is unremarkable. The parotid submandibular and thyroid glands are normal in appearance. There are degenerative changes in the cervical spine. The common carotid arteries are widely patent bilaterally. There is a dominant right vertebral artery. There is moderate abstract calcification about the right carotid bifurcation. There is approximately 50% stenosis of the proximal right ICA. There is minimal plaque about the left carotid bifurcation and no stenosis. The distal internal carotid arteries, vertebral arteries and basilar artery are widely patent. There are no proximal intracranial branch occlusions, vascular malformations or aneurysms. IMPRESSION: Circumferential edema with some narrowing of the nasopharyngeal and oral pharyngeal airway to the level of the vocal cords. This is nonspecific however can be seen with angioedema. No discrete mass or abnormal fluid collection is appreciated to suggest infection. Unremarkable CT head Moderate atherosclerotic plaque about the right carotid bifurcation with approximately 50% narrowing at the origin of the right ICA. Further evaluation with carotid duplex on a nonemergent basis is recommended. Otherwise unremarkable CTA head and neck. The findings were conveyed to ER at 6:45 PM via telephone. Dictated by: Dictated on workstation # [id number]
[2017-05-05] MEDS ORDERED: FLUCONAZOLE 150 MG TABLET (ED ONLY) PO ONE (20:30)
--- NOTE | 2017-05-05 20:31 | Consultation ---
History of Present Illness History of Present Illness Patient Consulted On(nadja/time) 05/05/17 20:26 Date Seen by Provider: May 05, 2017 Time Seen by Provider: 20:26 Reason for Visit: abnormal CT neck, sore throat History of Present Illness Pt stated sore throat and symptoms started about Friday, family member dx with flu Pt was originally in ER due to stroke like symptoms and drooling from mouth with Right side weakness Pt denies trouble swallowing, eating, or breathing Throat is just sore all over not in one specific area hx of smoker started in , heavies smoking 1ppd, currently smoking 1/2 to 1 ppd hx of alcohol use beer at least a 12 pk per day stopped 11 years ago hx of COPD Denies any hx of head and neck cancer, denies any family hx of head and neck cancers Surgical hx of Tonsillectomy in Jr. High Allergies and Home Medications Allergies Coded Allergies: budesonide (Verified Allergy, Unknown, 03/23/08) formoterol (Verified Allergy, Unknown, 03/23/08) tetanus toxoid, adsorbed (Verified Allergy, Unknown, 11/24/08) Home Medications Albuterol Sulfate 1 Puff Puff, 2 PUFF IH QID PRN for SHORTNESS OF BREATH, ( Reported) Aripiprazole 30 Mg Tablet, 30 MG PO DAILY, (Reported) Aspirin 81 Mg Tabec, 81 MG PO DAILY, (Reported) Atorvastatin Calcium 80 Mg Tablet, 80 MG PO DAILY, (Reported) Clopidogrel Bisulfate 75 Mg Tablet, 75 MG PO DAILY, (Reported) Fluticasone/Salmeterol 1 Each Blst.w.dev, 1 PUFF IH BID, (Reported) LAST FILLED 04/02/16 #1 INHALER Ipratropium/Albuterol Sulfate 3 Ml Ampul.neb, 3 ML IH Q6H PRN for SHORTNESS OF BREATH, (Reported) LAST FILLED 06/26/15 #60 VIALS Isosorbide Mononitrate 30 Mg Tab.er.24h, 15 MG PO DAILY, (Reported) TAKES 1/2 OF A (30 MG) TABLET Lisinopril 10 Mg Tablet, 10 MG PO DAILY, (Reported) Montelukast Sodium 10 Mg Tablet, 10 MG PO DAILY, (Reported) Nitroglycerin 0.4 Mg Tab.subl, 0.4 MG PO DAILY PRN PRN for CHEST PAIN, (Reported ) [place] 3 Polyunsat Fatty Acids 1,000 Mg Cap, 1,200 MG PO TID, (Reported) Prednisone 10 Mg Tab.ds.pk, 10 MG PO DAILY, #42 Take 6 tabs(60mg)daily,decrease by 1 tab(10mg)every other day. Prescribed by: OUMAR POWERS on 07/25/16 1138 Ranolazine 1,000 Mg Tab.er.12h, 1,000 MG PO BID, (Reported) Sertraline HCl 100 Mg Tablet, 100 MG PO DAILY, (Reported) Tiotropium [place] 1 Inh Aerp, 1 PUFF INH DAILY, (Reported) LAST FILLED 04/02/16 #1 INHALER Past Ypgwkks-Jixraq-Qnuijd Hx Patient Social History Alcohol Use: Denies Use Recreational Drug Use: No Smoking Status: Current Everyday Smoker Type Used: Cigarettes Recent Foreign Travel: No Contact w/Someone Who Travel: No Recent Infectious Disease Expo: No Recent Hopitalizations: No Immunizations Up To Date Tetanus Booster (TDap): Unknown PED Vaccines UTD: No Date of Pneumonia Vaccine: Mar 23, 2013 Date of Influenza Vaccine: Mar 04, 2013 Seasonal Allergies Seasonal Allergies: No Surgeries History of Surgeries: Yes (1 VESSEL CABG, CARDIAC STENTS X 4; LEFT LEG STENT ) Surgeries: Abdominal, Cardiac, CABG, Coronary Stent, Tonsillectomy, Vascular Surgery Respiratory History of Respiratory Disorde: Yes Respiratory Disorders: COPD Currently Using CPAP: No Currently Using BIPAP: No Cardiovascular History of Cardiac Disorders: Yes (CAROTID DISEASE; LEFT LEG STENT ) Cardiac Disorders: Coronary Artery Disease, Deep Vein Thrombosis, Heart Attack , High Cholesterol, Hypertension, Peripheral Vascular Neurological History of Neurological Disord: No Reproductive System Hx Reproductive Disorders: No Sexually Transmitted Disease: No Genitourinary History of Genitourinary Disor: No Gastrointestinal History of Gastrointestinal Di: Yes Gastrointestinal Disorders: Gastroesophageal Reflux, Ulcer Musculoskeletal History of Musculoskeletal Dis: Yes Musculoskeletal Disorders: Arthritis Endocrine History of Endocrine Disorders: No HEENT History of HEENT Disorders: No Cancer History of Cancer: No Psychosocial History of Psychiatric Problem: Yes Behavioral Health Disorders: Sleep Difficulties, Schizophrenia, Depression Integumentary History of Skin or Integumenta: No Blood Transfusions History of Blood Disorders: No Adverse Reaction to a Blood Tr: No Family Medical History Significant Family History: No Pertinent Family Hx Family Medial History: Diabetes mellitus 19 MOTHER FH: heart disease 19 FATHER Review of Systems-General EENTM: see HPI Physical Exam-General Problems Physical Exam Vital Signs Vital Sign - Last 12Hours 05/05/17 05/05/17 16:45 19:11 Temp 98.1 Pulse 78 Resp 16 B/P (MAP) 126/73 Pulse Ox 95 O2 Delivery Nasal Cannula O2 Flow Rate 2.00 Capillary Refill : Less Than 3 Seconds HEENT: other (oral cavity with normal mucus, large tongue, no teeth, elongated slightly swollen uvula, mild redness of pharynx - no drooling at this time, able to talk normally ) Neck: normal inspection Assessment/Plan Assessment/Plan Admission Diagnosis/Plan Assessment: 1. Edema of nasopharyngeal and oral pharyngeal airway 2. smoker current 3. hx alcohol abuse, hx rehab 4. hx of Tonsilectomy Plan : Throat C&S obtained in ER, Strep test in ER negative ER (Selena Amin) already started on Decadron and IV Ceftin At this time would wait on results of C&S May need nasopharyngeal scope either inpatient if symptoms continue or possible as outpatient in office Concerning with CT showing Prominence of adenoid tissue at this pt age and hx of tonsilectomy in childhood and Right upper lobe nodule May need to repeat CT to see if edema is improving Clinical Quality Measures Stroke: Date of last known well: Apr 28, 2017 Copy Copies To 1: JAVED WATERS MD, ANDRA J FNP May 05, 2017 20:31
[2017-05-05] MEDS ORDERED: MIRTAZAPINE 15 MG (REMERON) TAB PO SCH (21:00)
[2017-05-05] MEDS: CEFUROXIME 1.5 GM/NS 50 ML IVPB IV SCH ×2 (23:45)
[2017-05-05] MEDS: DEXAMETHASONE 4 MG/ML SDV (DECADRON) IV SCH (23:46)
[2017-05-06] VITALS (14 sets, daily range): BP systolic 88–141; BP diastolic 42–82
[2017-05-06 04:59] LABS: BASOPHILS % (AUTO) 0 % (0-10); EOSINOPHILS % (AUTO) 0 % (0-10); LYMPHOCYTES # (AUTO) 0.6 X 10^3 (1.0-4.0); LYMPHOCYTES % (AUTO) 7 % (12-44); MEAN CORPUSCULAR HEMOGLOBIN 32 PG (25-34); MEAN CORPUSCULAR HGB CONC 33 G/DL (32-36); MEAN CORPUSCULAR VOLUME 97 FL (80-99); MEAN PLATELET VOLUME 10.4 FL (7.4-10.4); MONOCYTES # (AUTO) 0.1 X 10^3 (0.0-1.0); MONOCYTES % (AUTO) 1 % (0-12); NEUTROPHILS # (AUTO) 8.8 X 10^3 (1.8-7.8); NEUTROPHILS % (AUTO) 92 % (42-75); PLATELET COUNT 152 10^3/uL (130-400); RED BLOOD COUNT 4.31 10^6/uL (4.35-5.85); RED CELL DISTRIBUTION WIDTH 12.8 % (10.0-14.5); WHITE BLOOD COUNT 9.5 10^3/uL (4.3-11.0)
[2017-05-06] MEDS ORDERED: RT-ALBUTEROL SULF 2.5 MG/3 ML PRE-MIX VIAL IH PRN (05:15)
[2017-05-06 05:18] LABS: ANION GAP 6 MMOL/L (5-14); BLOOD UREA NITROGEN 12 MG/DL (7-18); BUN/CREATININE RATIO 15; CALCIUM 9.1 MG/DL (8.5-10.1); CARBON DIOXIDE 34 MMOL/L (21-32); CHLORIDE 98 MMOL/L (98-107); CREATININE SERUM 0.81 MG/DL (0.60-1.30); GFR ESTIMATED > 60; GLUCOSE 153 MG/DL (70-105); MAGNESIUM 1.8 MG/DL (1.8-2.4); PHOSPHORUS 2.9 MG/DL (2.3-4.7); POTASSIUM 4.5 MMOL/L (3.6-5.0); SODIUM 138 MMOL/L (135-145)
[2017-05-06 05:21] LABS: LYMPHOCYTES % (MANUAL) 1 %; NEUTROPHILS % (MANUAL) 97 %
[2017-05-06 05:22] LABS: REACTIVE LYMPHOCYTES 2 %
[2017-05-06] MEDS: CEFUROXIME 1.5 GM/NS 50 ML IVPB IV SCH ×4 (05:58→14:43)
[2017-05-06] MEDS: DEXAMETHASONE 4 MG/ML SDV (DECADRON) IV SCH ×2 (05:59→14:42)
[2017-05-06] MEDS ORDERED: KCL 20 MEQ TAB (K-DUR) PO SCH (06:00)
[2017-05-06] MEDS ORDERED: POTASSIUM CL 10MEQ/50ML IVPB 50 ML IV SCH (06:00)
[2017-05-06] MEDS ORDERED: MAGNESIUM 1 GM/100 ML IVPB 100 ML IV SCH (06:00)
--- NOTE | 2017-05-06 06:47 | Pulmonary Consultation ---
History of Present Illness History of Present Illness Date of Consultation 05/06/17 06:42 Time Seen by Provider: 06:42 Date of Admission Reason for Visit: abnormal CT neck, sore throat History of Present Illness 61yo poor historian with severe oxygen dependent 2liters and continues to smoke. Present from Dr. Carrion's office secondary to right sided weakness. CT head did not show any signs of CVA however was suggestive of angioedema. Right sided weakness that has been intermittent over 1 -2 wks is now resolved. Pt denies rash, dysphagia. He has had a sore throat over 1-2 wks and he does feel like his throat is swollen. Strep, mono, and influenza is negative. Pt does take lisinopril at home. Dr. Roca has been consulted. No prior episodes like this in the past. I am consulted for pulmonary/ICU management. Allergies and Home Medications Allergies Coded Allergies: budesonide (Verified Allergy, Unknown, 03/23/08) formoterol (Verified Allergy, Unknown, 03/23/08) tetanus toxoid, adsorbed (Verified Allergy, Unknown, 11/24/08) Home Medications Albuterol Sulfate 1 Puff Puff, 2 PUFF IH QID PRN for SHORTNESS OF BREATH, ( Reported) Aripiprazole 30 Mg Tablet, 30 MG PO DAILY, (Reported) Aspirin 81 Mg Tabec, 81 MG PO DAILY, (Reported) Atorvastatin Calcium 80 Mg Tablet, 80 MG PO DAILY, (Reported) Clopidogrel Bisulfate 75 Mg Tablet, 75 MG PO DAILY, (Reported) Fluticasone/Salmeterol 1 Each Blst.w.dev, 1 PUFF IH BID, (Reported) LAST FILLED 04/02/16 #1 INHALER Ipratropium/Albuterol Sulfate 3 Ml Ampul.neb, 3 ML IH Q6H PRN for SHORTNESS OF BREATH, (Reported) LAST FILLED 06/26/15 #60 VIALS Isosorbide Mononitrate 30 Mg Tab.er.24h, 15 MG PO DAILY, (Reported) TAKES 1/2 OF A (30 MG) TABLET Lisinopril 10 Mg Tablet, 10 MG PO DAILY, (Reported) Montelukast Sodium 10 Mg Tablet, 10 MG PO DAILY, (Reported) Nitroglycerin 0.4 Mg Tab.subl, 0.4 MG PO DAILY PRN PRN for CHEST PAIN, (Reported ) Vowinckel 3 Polyunsat Fatty Acids 1,000 Mg Cap, 1,200 MG PO TID, (Reported) Prednisone 10 Mg Tab.ds.pk, 10 MG PO DAILY, #42 Take 6 tabs(60mg)daily,decrease by 1 tab(10mg)every other day. Prescribed by: OUMAR POWERS on 07/25/16 1138 Ranolazine 1,000 Mg Tab.er.12h, 1,000 MG PO BID, (Reported) Sertraline HCl 100 Mg Tablet, 100 MG PO DAILY, (Reported) Tiotropium [place] 1 Inh Aerp, 1 PUFF INH DAILY, (Reported) LAST FILLED 04/02/16 #1 INHALER Past Satlzgr-Wpvstx-Wiustg Hx Patient Social History Alcohol Use: Denies Use Recreational Drug Use: No Smoking Status: Current Everyday Smoker Type Used: Cigarettes Recent Foreign Travel: No Contact w/Someone Who Travel: No Recent Infectious Disease Expo: No Recent Hopitalizations: No Immunizations Up To Date Tetanus Booster (TDap): Unknown PED Vaccines UTD: No Date of Pneumonia Vaccine: Mar 23, 2013 Date of Influenza Vaccine: Mar 10, 2017 Seasonal Allergies Seasonal Allergies: No Surgeries History of Surgeries: Yes (1 VESSEL CABG, CARDIAC STENTS X 4; LEFT LEG STENT ) Surgeries: Abdominal, Cardiac, CABG, Coronary Stent, Tonsillectomy, Vascular Surgery Respiratory History of Respiratory Disorde: Yes Respiratory Disorders: COPD Currently Using CPAP: No Currently Using BIPAP: No Cardiovascular History of Cardiac Disorders: Yes (CAROTID DISEASE; LEFT LEG STENT ) Cardiac Disorders: Coronary Artery Disease, Deep Vein Thrombosis, Heart Attack , High Cholesterol, Hypertension, Peripheral Vascular Neurological History of Neurological Disord: No Reproductive System Hx Reproductive Disorders: No Sexually Transmitted Disease: No Genitourinary History of Genitourinary Disor: No Gastrointestinal History of Gastrointestinal Di: Yes Gastrointestinal Disorders: Gastroesophageal Reflux, Ulcer Musculoskeletal History of Musculoskeletal Dis: Yes Musculoskeletal Disorders: Arthritis Endocrine History of Endocrine Disorders: No HEENT History of HEENT Disorders: No Cancer History of Cancer: No Psychosocial History of Psychiatric Problem: Yes Behavioral Health Disorders: Sleep Difficulties, Schizophrenia, Depression Integumentary History of Skin or Integumenta: No Blood Transfusions History of Blood Disorders: No Adverse Reaction to a Blood Tr: No Family Medical History Significant Family History: No Pertinent Family Hx Family Medial History: Diabetes mellitus 19 MOTHER FH: heart disease 19 FATHER Review of Systems Time Seen by Provider: 07:02 Constitutional: Weakness, No: Fever, Chills ENT: Nose discharge, Nose congestion, Mouth swelling, Throat pain, Throat swelling Respiratory: Cough, Shortness of breath, SOB with excertion, Wheezing Cardiovascular: No: Chest Pain, Palpitations Gastrointestinal: No: Nausea, Vomiting, Diarrhea Genitourinary: No Dysuria Neurological: Weakness, Incoordination, Change in speech, Confusion Exam Exam Vital Signs Date Time Temp Pulse Resp B/P (MAP) Pulse Ox O2 Delivery O2 Flow Rate FiO2 05/06/17 06:00 70 23 113/70 92 Nasal Cannula 2.00 05/06/17 05:00 60 22 99/61 92 Nasal Cannula 2.00 05/06/17 04:29 78 95 28 05/06/17 04:00 93 Nasal Cannula 2.00 05/06/17 04:00 65 28 88/42 95 Nasal Cannula 2.00 05/06/17 03:39 96.0 05/06/17 03:00 80 23 124/56 92 Nasal Cannula 2.00 05/06/17 03:00 60 15 91/46 97 Nasal Cannula 2.00 05/06/17 02:00 61 21 98/60 93 Nasal Cannula 2.00 05/06/17 01:00 71 19 104/57 96 Nasal Cannula 2.00 05/06/17 01:00 71 05/06/17 00:00 93 Nasal Cannula 2.00 05/06/17 00:00 80 23 124/56 92 Nasal Cannula 2.00 05/05/17 23:30 63 21 97/57 92 Nasal Cannula 2.00 05/05/17 23:00 62 20 99/57 90 Nasal Cannula 2.00 05/05/17 22:30 64 19 101/64 93 Nasal Cannula 2.00 05/05/17 22:00 73 25 104/61 97 Nasal Cannula 2.00 05/05/17 21:45 70 23 101/56 98 Nasal Cannula 2.00 05/05/17 21:30 69 29 105/57 98 Nasal Cannula 2.00 05/05/17 21:15 79 22 112/65 98 Nasal Cannula 2.00 05/05/17 21:00 98 Nasal Cannula 2.00 05/05/17 21:00 73 17 115/73 97 Nasal Cannula 2.00 05/05/17 20:45 70 13 112/72 97 Nasal Cannula 2.00 05/05/17 20:34 63 05/05/17 20:30 66 16 99/57 98 Nasal Cannula 2.00 05/05/17 20:22 98.0 72 16 93 Nasal Cannula 2.00 05/05/17 19:11 65 16 110/63 95 05/05/17 17:35 94 Nasal Cannula 2.00 05/05/17 16:50 78 126/73 95 05/05/17 16:45 98.1 78 126/73 95 Nasal Cannula 2.00 General Appearance: No Apparent Distress, WD/WN HEENT: PERRL/EOMI, Normal ENT Inspection, Pharynx Normal Respiratory: Chest Non Tender, Decreased Breath Sounds Cardiovascular: Regular Rate, Rhythm, No Edema, No Gallop Capillary Refill: Less Than 3 Seconds Gastrointestinal: normal bowel sounds, non tender, soft Extremity: No Pedal Edema Neurologic/Psychiatric: Alert, Oriented x3 Skin: Normal Color, Warm/Dry Lymphatic: No Adenopathy Results Lab Laboratory Tests 05/05/17 16:50 05/06/17 04:35 Assessment/Plan Assessment/Plan -Questionable angioedema -Stop lisinopril -Continue steroids for now -Severe COPD oxygen dependent with AE -Steroids -SVNs -- increase to QID Tobacco dependance -Education Pt is ok to transfer to 4th floor. 255 Clinical Quality Measures DVT/VTE Risk/Contraindication: Risk Factor Score Per Nursin RFS Level Per Nursing on Admit: 4+=Very High Stroke: Date of last known well: Apr 28, 2017 XIMENA QUINONES DO May 06, 2017 06:47
[2017-05-06] MEDS: RT-ALBUTEROL SULF 2.5 MG/3 ML PRE-MIX VIAL IH SCH ×3 (07:28→14:09)
[2017-05-06] MEDS ORDERED: RT-ADVAIR HFA 115/21 MCG PER PUFF IH SCH (08:00)
[2017-05-06] MEDS ORDERED: RT-ALBUTEROL SULF 2.5 MG/3 ML PRE-MIX VIAL IH SCH (08:00)
--- NOTE | 2017-05-06 08:56 | Diagnostic Imaging Report ---
INDICATION: Followup airway edema, COPD exacerbation, and right arm weakness. ICU care management. COMPARISON STUDY: Chest from yesterday. FINDINGS: A portable view of the chest demonstrates previous coronary artery bypass graft changes. The heart size and vascularity are normal. The lungs are clear. No pleural effusion or pneumothorax is present. A few Noah B lines have developed in the right lower lung. Possible mild edema. IMPRESSION: A few Noah B lines have developed. Possible mild edema. Dictated by: Dictated on workstation # [id number]
[2017-05-06] MEDS ORDERED: PATCH REMOVAL TP SCH (09:00)
[2017-05-06] MEDS ORDERED: LORATADINE (CLARITIN) 10 MG TAB PO SCH (09:00)
[2017-05-06] MEDS ORDERED: NICOTINE 21 MG (NICODERM) PATCH TD SCH (09:00)
[2017-05-06] MEDS ORDERED: ASPI-983 PO (09:44)
[2017-05-06] MEDS ORDERED: CARV6.25 PO (09:44)
[2017-05-06] MEDS ORDERED: FISH1CAP15 PO (09:44)
[2017-05-06] MEDS ORDERED: PRD10T PO (09:44)
[2017-05-06] MEDS ORDERED: MIRT15TA6 PO (09:44)
[2017-05-06] MEDS ORDERED: TIOT18CA2 IH (10:12)
--- NOTE | 2017-05-06 13:44 | Progress Note (SOAP) ---
Subjective Date Seen by Provider: May 06, 2017 Time Seen by Provider: 11:55 Subjective/Events-last exam Consulted on patient due to angioedema, history of throat discomfort, and abnormal CT head. He is currently in bed, oxygen not in place. He is requesting to leave. He denies any shortness of breath, problems eating or drinking, dysphagia, globus sensation, GERD. Patient was alert and cooperative. Nose clear-turbinates mildly hypertrophied. Oral Cavity Clear- Uvula midline- No masses or ulceration noted. No redness or swelling Neck- negative to palpation Objective Exam Vital Signs Date Time Temp Pulse Resp B/P (MAP) Pulse Ox O2 Delivery O2 Flow Rate FiO2 05/06/17 11:15 97.8 80 24 123/61 98 Nasal Cannula 2.00 05/06/17 11:08 92 Nasal Cannula 3.00 05/06/17 09:00 84 27 114/65 93 Nasal Cannula 2.00 05/06/17 08:00 Nasal Cannula 2.00 05/06/17 08:00 89 21 116/82 93 Nasal Cannula 2.00 05/06/17 07:55 98.0 Nasal Cannula 2.00 05/06/17 07:31 93 Nasal Cannula 3.00 05/06/17 07:00 89 05/06/17 07:00 61 27 113/71 93 Nasal Cannula 2.00 05/06/17 06:00 70 23 113/70 92 Nasal Cannula 2.00 05/06/17 05:00 60 22 99/61 92 Nasal Cannula 2.00 05/06/17 04:29 78 95 28 05/06/17 04:00 93 Nasal Cannula 2.00 05/06/17 04:00 65 28 88/42 95 Nasal Cannula 2.00 05/06/17 03:39 96.0 05/06/17 03:00 80 23 124/56 92 Nasal Cannula 2.00 05/06/17 03:00 60 15 91/46 97 Nasal Cannula 2.00 05/06/17 02:00 61 21 98/60 93 Nasal Cannula 2.00 05/06/17 01:00 71 19 104/57 96 Nasal Cannula 2.00 05/06/17 01:00 71 05/06/17 00:00 93 Nasal Cannula 2.00 05/06/17 00:00 80 23 124/56 92 Nasal Cannula 2.00 05/05/17 23:30 63 21 97/57 92 Nasal Cannula 2.00 05/05/17 23:00 62 20 99/57 90 Nasal Cannula 2.00 05/05/17 22:30 64 19 101/64 93 Nasal Cannula 2.00 05/05/17 22:00 73 25 104/61 97 Nasal Cannula 2.00 05/05/17 21:45 70 23 101/56 98 Nasal Cannula 2.00 05/05/17 21:30 69 29 105/57 98 Nasal Cannula 2.00 05/05/17 21:15 79 22 112/65 98 Nasal Cannula 2.00 05/05/17 21:00 98 Nasal Cannula 2.00 05/05/17 21:00 73 17 115/73 97 Nasal Cannula 2.00 05/05/17 20:45 70 13 112/72 97 Nasal Cannula 2.00 05/05/17 20:34 63 05/05/17 20:30 66 16 99/57 98 Nasal Cannula 2.00 05/05/17 20:22 98.0 72 16 93 Nasal Cannula 2.00 05/05/17 19:11 65 16 110/63 95 05/05/17 17:35 94 Nasal Cannula 2.00 05/05/17 16:50 78 126/73 95 05/05/17 16:45 98.1 78 126/73 95 Nasal Cannula 2.00 I & O 05/07/17 07:00 Intake Total 480 ml Output Total 325 ml Balance 155 ml Capillary Refill : Less Than 3 Seconds General Appearance: No Apparent Distress Results Lab Laboratory Tests 05/05/17 16:50: White Blood Count 10.6, Red Blood Count 4.29L, Hemoglobin 13.8, Hematocrit 42, Mean Corpuscular Volume 97, Mean Corpuscular Hemoglobin 32, Mean Corpuscular Hemoglobin Concent 33, Red Cell Distribution Width 12.7, Platelet Count 171, Mean Platelet Volume 9.5, Neutrophils (%) (Auto) 81H, Lymphocytes (%) (Auto) 13 , Monocytes (%) (Auto) 5, Eosinophils (%) (Auto) 0, Basophils (%) (Auto) 0, Neutrophils # (Auto) 8.6H, Lymphocytes # (Auto) 1.4, Monocytes # (Auto) 0.6, Eosinophils # (Auto) 0.0, Basophils # (Auto) 0.0, Prothrombin Time 12.3, INR Comment 0.9, Activated Partial Thromboplast Time 28, D-Dimer 0.38, Sodium Level 139, Potassium Level 4.4, Chloride Level 96L, Carbon Dioxide Level 37H, Anion Gap 6, Blood Urea Nitrogen 9, Creatinine 0.88, Estimat Glomerular Filtration Rate > 60, BUN/Creatinine Ratio 10, Glucose Level 111H, Calcium Level 9.3, Total Bilirubin 0.5, Aspartate Amino Transf (AST/SGOT) 19, Alanine Aminotransferase (ALT/SGPT) 23, Alkaline Phosphatase 72, Total Protein 7.0, Albumin 4.1, Serum Alcohol < 10 05/05/17 16:54: Monoscreen NEGATIVE 05/05/17 17:55: Urine Color YELLOW, Urine Clarity CLEAR, Urine pH 8, Urine Specific [place] 1.010L, Urine Protein NEGATIVE, Urine Glucose (UA) NEGATIVE, Urine Ketones NEGATIVE, Urine Nitrite NEGATIVE, Urine Bilirubin NEGATIVE, Urine Urobilinogen NORMAL, Urine Leukocyte Esterase NEGATIVE, Urine RBC (Auto) NEGATIVE, Urine RBC NONE, Urine WBC NONE, Urine Squamous Epithelial Cells NONE, Urine Crystals NONE , Urine Bacteria NEGATIVE, Urine Casts NONE, Urine Mucus NEGATIVE, Urine Culture Indicated NO, Urine Opiates Screen NEGATIVE, Urine Oxycodone Screen NEGATIVE, Urine Methadone Screen NEGATIVE, Urine Propoxyphene Screen NEGATIVE, Urine Barbiturates Screen NEGATIVE, Ur Tricyclic Antidepressants Screen NEGATIVE , Urine Phencyclidine Screen NEGATIVE, Urine Amphetamines Screen NEGATIVE, Urine Methamphetamines Screen NEGATIVE, Urine Benzodiazepines Screen NEGATIVE, Urine Cocaine Screen NEGATIVE, Urine Cannabinoids Screen NEGATIVE 05/05/17 19:15: Group A Streptococcus Screen NEGATIVE 05/06/17 04:35: White Blood Count 9.5, Red Blood Count 4.31L, Hemoglobin 13.7, Hematocrit 42, Mean Corpuscular Volume 97, Mean Corpuscular Hemoglobin 32, Mean Corpuscular Hemoglobin Concent 33, Red Cell Distribution Width 12.8, Platelet Count 152, Mean Platelet Volume 10.4, Neutrophils (%) (Auto) 92H, Lymphocytes (%) (Auto) 7L , Monocytes (%) (Auto) 1, Eosinophils (%) (Auto) 0, Basophils (%) (Auto) 0, Neutrophils # (Auto) 8.8H, Lymphocytes # (Auto) 0.6L, Monocytes # (Auto) 0.1, Eosinophils # (Auto) 0.0, Basophils # (Auto) 0.0, Neutrophils % (Manual) 97, Lymphocytes % (Manual) 1, Reactive Lymphocytes 2, Blood Morphology Comment NORMAL, Sodium Level 138, Potassium Level 4.5, Chloride Level 98, Carbon Dioxide Level 34H, Anion Gap 6, Blood Urea Nitrogen 12, Creatinine 0.81, Estimat Glomerular Filtration Rate > 60, BUN/Creatinine Ratio 15, Glucose Level 153H, Calcium Level 9.1, Phosphorus Level 2.9, Magnesium Level 1.8 Microbiology 05/05/17 Influenza Types A,B Antigen (ROBERT) - Final, Complete Assessment/Plan Assessment/Plan Assess & Plan/Chief Complaint Assessment- Throat pain- resolved Abnormal CT Treatment- At this time the patient denies any problems with his throat. He has a history of smoking and oxygen usage. We will plan for the patient to follow up in office in a week for evaluation and possible nasopharyngeal scope. Final Diagnosis Throat pain Clinical Quality Measures DVT/VTE Risk/Contraindication: Risk Factor Score Per Nursin RFS Level Per Nursing on Admit: 4+=Very High Stroke: Date of last known well: Apr 28, 2017 PARVIN MAI APRN May 06, 2017 13:44
--- NOTE | 2017-05-06 15:33 | History & Physical-Hospitalist ---
HPI History of Present Illness: HPI/Chief Complaint The patient is a 61-year-old white male who was admitted after he presented to the emergency room late yesterday. He been sent there by Dr. Carrion's office after he had complained of right-sided weakness. This had apparently been a complaint for a week or more. In the process of workup it was noted that he had an incidental narrowing of the proximal trachea at the cord level. He had no hoarseness and no complaint of shortness of breath. He was admitted for observation. It is noted that he is a vasculopath and has had coronary artery bypass once and for additional stents. He has had multiple stenting's in his lower extremities. Despite all of this he continues to smoke one pack of cigarettes or more daily. He wears oxygen [id number] but is somehow able to continue to smoke. Source: patient, family Exam Limitations: no limitations Date Seen 05/06/17 Time Seen by Provider: 15:27 Attending Physician Alec Grullon MD PCP Judi Zepeda MD Referring Physician Date of Admission May 05, 2017 at 19:17 Home Medications & Allergies Home Medications Reviewed patient Home Medication Reconciliation Form Allergies Allergies Coded Allergies budesonide (Verified Allergy, Unknown, 03/23/08) formoterol (Verified Allergy, Unknown, 03/23/08) tetanus toxoid, adsorbed (Verified Allergy, Unknown, 11/24/08) Past Ppfhutb-Rjhshp-Buneqn Hx Patient Social History Alcohol Use: Denies Use Recreational Drug Use: No Smoking Status: Current Everyday Smoker Type Used: Cigarettes Physical Abuse Screen: No Sexual Abuse: No Recent Foreign Travel: No Contact w/other who traveled: No Recent Hopitalizations: No Recent Infectious Disease Expo: No Immunizations Up To Date Tetanus Booster (TDap): Unknown Pediatric: No Date of Pneumonia Vaccine: Mar 23, 2013 Date of Influenza Vaccine: Mar 10, 2017 Seasonal Allergies Seasonal Allergies: No Surgeries Yes (1 VESSEL CABG, CARDIAC STENTS X 4; LEFT LEG STENT 02/2017) Abdominal, Cardiac, CABG, Coronary Stent, Tonsillectomy, Vascular Surgery Respiratory Yes COPD Currently Using CPAP: No Currently Using BIPAP: No Cardiovascular Yes (CAROTID DISEASE; LEFT LEG STENT ) Coronary Artery Disease, Deep Vein Thrombosis, Heart Attack, High Cholesterol, Hypertension, Peripheral Vascular Neurological No Reproductive System Hx Reproductive Disorders: No Sexually Transmitted Disease: No Genitourinary No Gastrointestinal Yes Gastroesophageal Reflux, Ulcer Musculoskeletal Yes Arthritis Endocrine History of Endocrine Disorders: No HEENT History of HEENT Disorders: No Cancer No Psychosocial History of Psychiatric Problem: Yes Behavioral Health Disorders: Sleep Difficulties, Schizophrenia, Depression Integumentary History of Skin or Integumenta: No Blood Transfusions History of Blood Disorders: No Adverse Reaction to a Blood Tr: No Family Medical History Significant Family History: No Pertinent Family Hx Family Hx: Diabetes mellitus 19 MOTHER FH: heart disease 19 FATHER Review of Systems Constitutional: see HPI Respiratory: cough, dyspnea on exertion, short of breath, wheezing Cardiovascular: Hx of Intervention, vascular heart diseas Gastrointestinal: no symptoms reported Genitourinary: no symptoms reported Musculoskeletal: other Skin: no symptoms reported Psychiatric/Neurological: No Symptoms Reported Physical Exam Physical Exam Vital Signs Vital Sign - Last 12Hours 05/05/17 05/05/17 05/06/17 16:45 19:11 04:29 Temp 98.1 Pulse 78 Resp 16 B/P (MAP) 126/73 Pulse Ox 95 O2 Delivery Nasal Cannula O2 Flow Rate 2.00 FiO2 28 Capillary Refill : Less Than 3 Seconds General Appearance: No Apparent Distress, WD/WN Eyes: Bilateral Eye Normal Inspection HEENT: Other (minimum dentition remaining) Neck: Full Range of Motion Respiratory: Chest Non Tender, Lungs Clear, Normal Breath Sounds, No Accessory Muscle Use, No Respiratory Distress Cardiovascular: Regular Rate, Rhythm, No Edema, No Gallop, No JVD, No Murmur, Normal Peripheral Pulses Gastrointestinal: Normal Bowel Sounds, No Organomegaly, No Pulsatile Mass, Non Tender, Soft Back: Normal Inspection, No CVA Tenderness, No Vertebral Tenderness Extremity: Normal Capillary Refill, Normal Inspection, Normal Range of Motion, Non Tender, No Calf Tenderness, No Pedal Edema Neurologic/Psychiatric: Alert, Oriented x3, No Motor/Sensory Deficits, Normal Mood/Affect Skin: Normal Color Lymphatic: No Adenopathy Results Results/Procedures Lab Laboratory Tests 05/05/17 16:50 05/06/17 04:35 Assessment/Plan Admission Diagnosis 1.apparent proximal tracheal narrowing etiology unclear 2.COPD with chronic hypoxia. 3.vasculopathy with previous coronary artery bypass, stenting, lower extremity intervention and stenting. 4. History of schizophrenia Clinical Quality Measures DVT/VTE Risk/Contraindication: Risk Factor Score Per Nursin RFS Level Per Nursing on Admit: 4+=Very High Stroke: Date of last known well: Apr 28, 2017 ALEC GRULLON MD May 06, 2017 15:33
[2017-05-06] MEDS ORDERED: PRD20T PO (15:39)
--- NOTE | 2017-05-06 15:41 | Discharge Instructions ---
Discharge Instructions Discharge Medications New, Converted or Re-Newed RX: Transmitted to Pharmacy Patient Instructions Patient Instructions: Beginning in the morning take the prednisone taper described on your prescription transmitted to the pharmacy. Continue other medications as before Appointment to Dr. Roca later this week for follow-up [facility] to [facility]: Change in breathing Activity & Diet Discharge Diet: No Restrictions Activity as Tolerated: Yes MARTIN GRULLON MD May 06, 2017 15:41
[2017-05-06] MEDS ORDERED: NITROGLYCERIN 0.4 MG SL TABS BTL 25'S SL PRN (15:45)
[2017-05-06] MEDS ORDERED: RT-ALBUTEROL/IPRATROPIUM 3 ML (DUONEB) VIAL IH PRN (15:45)
[2017-05-06] MEDS ORDERED: RT-ALBUTEROL HFA (VENTOLIN) PER PUFF IH PRN (15:45)
[2017-05-06] MEDS ORDERED: ATORVASTATIN 80 MG (LIPITOR) TABLET PO SCH (21:00)
[2017-05-06] MEDS ORDERED: CARVEDILOL 6.25 MG (COREG) TAB PO SCH (21:00)
[2017-05-06] MEDS ORDERED: MONTELUKAST 10 MG (SINGULAIR) TAB PO SCH ×2 (21:00)
[2017-05-07] MEDS ORDERED: predniSONE 10 MG TAB PO SCH (07:00)
[2017-05-07] MEDS ORDERED: UMECLIDINIUM BROMIDE (INCRUSE ELLIPTA) 7'S IH SCH (08:00)
[2017-05-07] MEDS ORDERED: CLOPIDOGREL 75 MG (PLAVIX) TABLET PO SCH (09:00)
[2017-05-07] MEDS ORDERED: ISOSORBIDE MONONITRATE 30 MG (IMDUR) TAB PO SCH (09:00)
[2017-05-07] MEDS ORDERED: SERTRALINE 100 MG (ZOLOFT) TAB PO SCH (09:00)
[2017-05-07] MEDS ORDERED: ASPIRIN E.C. 81 MG (ECOTRIN) TAB PO SCH (09:00)
[2017-05-07] MEDS ORDERED: lisINopril 10 MG (PRINIVIL) TAB PO SCH (09:00)
== END 2017-05-06 15:40 | disposition home or self-care (01) ==
LOC: EDUNIT# 16:44 → ER 16:46 → UNDOADMOB 19:17 → ICU 19:17 → UNDODISOB 05-06 17:20
PROVIDERS: ADMIT Internal Medicine; ATTEND Internal Medicine
DX: J39.8 Other specified diseases of upper respiratory tract (principal); A39.0 Meningococcal meningitis; J44.1 Chronic obstructive pulmonary disease with (acute) exacerbation; R09.02 Hypoxemia; F17.210 Nicotine dependence, cigarettes, uncomplicated; I25.10 Atherosclerotic heart disease of native coronary artery without angina pectoris; I10 Essential (primary) hypertension; E78.5 Hyperlipidemia, unspecified; I73.9 Peripheral vascular disease, unspecified; Z86.718 Personal history of other venous thrombosis and embolism; K21.9 Gastro-esophageal reflux disease without esophagitis; F20.9 Schizophrenia, unspecified; F32.9 Major depressive disorder, single episode, unspecified; R20.0 Anesthesia of skin; I25.2 Old myocardial infarction; Z95.1 Presence of aortocoronary bypass graft; Z95.5 Presence of coronary angioplasty implant and graft; Z99.81 Dependence on supplemental oxygen
CPT/HCPCS: 36415; 70496; 70498; 71010; 80048; 80053; 80306; 80320; 81000; 83735; 84100; 85007; 85025; 85027; 85379; 85610; 85730; 86308; 87070; 87077; 87081; 87205; 87430; 87804; 93005; 94640; 94664; 96365; 96375; G0378

== ENCOUNTER 2017-05-08 13:41 | Inpatient (IN) | payer MEDICARE, MEDICAID ==
[~2017-05-08] VITALS: Ht 172.7 cm; Wt 58.2 kg
[~2017-05-08 13:41] MED LIST changes: +ASPI-983 PO; +CARV6.25 PO; +FISH1CAP15 PO; +MIRT15TA6 PO; +PRD10T PO; +TIOT18CA2 IH
[2017-05-08] MEDS ORDERED: ACETAMINOPHEN 500 MG TAB (TYLENOL) PO PRN (14:00)
[2017-05-08] MEDS ORDERED: HYDROcodone/APAP 5 MG/325 MG (LORTAB) TAB PO PRN (14:00)
[2017-05-08] MEDS ORDERED: LACTULOSE SYRUP 10GM/15ML (ENULOSE) 30ML UDC PO PRN (14:00)
[2017-05-08] MEDS ORDERED: ONDANSETRON 4 MG/2 ML (SDV) Z0FRAN IVP PRN (14:00)
[2017-05-08] MEDS ORDERED: fentaNYL INJECTION 100 MCG/2 ML AMP IVP PRN (14:00)
[2017-05-08] MEDS ORDERED: RT-ALBUTEROL/IPRATROPIUM 3 ML (DUONEB) VIAL INH SCH ×2 (16:00→22:00)
[2017-05-08 16:30] VITALS: BP 152/87
[2017-05-08 16:32] VITALS: BP 153/84
[2017-05-08 17:10] LABS: BASOPHILS % (AUTO) 0 % (0-10); EOSINOPHILS % (AUTO) 0 % (0-10); LYMPHOCYTES # (AUTO) 1.4 X 10^3 (1.0-4.0); LYMPHOCYTES % (AUTO) 11 % (12-44); MEAN CORPUSCULAR HEMOGLOBIN 33 PG (25-34); MEAN CORPUSCULAR HGB CONC 34 G/DL (32-36); MEAN CORPUSCULAR VOLUME 96 FL (80-99); MEAN PLATELET VOLUME 10.1 FL (7.4-10.4); MONOCYTES # (AUTO) 1.1 X 10^3 (0.0-1.0); MONOCYTES % (AUTO) 9 % (0-12); NEUTROPHILS # (AUTO) 9.6 X 10^3 (1.8-7.8); NEUTROPHILS % (AUTO) 80 % (42-75); PLATELET COUNT 142 10^3/uL (130-400); RED BLOOD COUNT 4.14 10^6/uL (4.35-5.85); WHITE BLOOD COUNT 12.1 10^3/uL (4.3-11.0)
--- NOTE | 2017-05-08 17:33 | Diagnostic Imaging Report ---
EXAMINATION: PA and lateral views of the chest. INDICATION: Pneumonia. FINDINGS: The lungs are clear. The heart size is normal. No effusion or pneumothorax. The mediastinum and justyn appear unremarkable. Sternotomy wires and evidence of post CABG changes are seen. IMPRESSION: No acute process. Dictated by: Dictated on workstation # [id number]
[2017-05-08 17:38] LABS: ALANINE AMINOTRANSFERASE 34 U/L (0-55); ALBUMIN 3.7 GM/DL (3.2-4.5); ANION GAP 9 MMOL/L (5-14); ASPARTATE AMINO TRANSFERASE 22 U/L (5-34); BILIRUBIN,TOTAL 0.4 MG/DL (0.1-1.0); BLOOD UREA NITROGEN 19 MG/DL (7-18); BUN/CREATININE RATIO 25; CALCIUM 8.9 MG/DL (8.5-10.1); CARBON DIOXIDE 36 MMOL/L (21-32); CHLORIDE 91 MMOL/L (98-107); CREATININE SERUM 0.75 MG/DL (0.60-1.30); GFR ESTIMATED > 60; GLUCOSE 97 MG/DL (70-105); POTASSIUM 4.3 MMOL/L (3.6-5.0); SODIUM 136 MMOL/L (135-145); TOTAL PROTEIN 6.4 GM/DL (6.4-8.2)
[2017-05-08] MEDS: methylPREDNISolone 40 MG/ML (Solu-MEDROL) VIAL IV SCH ×2 (17:59→23:46)
[2017-05-08 20:00] VITALS: BP 150/72
[2017-05-08] MEDS: cefTRIAXone INJECTION 1,000 MG in NS (IVPB) 50 ML IV SCH (20:15)
[2017-05-08] MEDS: RT-ALBUTEROL/IPRATROPIUM 3 ML (DUONEB) VIAL INH SCH ×2 (20:44→20:45)
[2017-05-09] MEDS: RT-ALBUTEROL/IPRATROPIUM 3 ML (DUONEB) VIAL INH PRN ×3 (00:13→04:04)
[2017-05-09 00:34] VITALS: BP 119/68
[2017-05-09 04:11] VITALS: BP 123/70
[2017-05-09] MEDS: methylPREDNISolone 40 MG/ML (Solu-MEDROL) VIAL IV SCH ×3 (05:39→18:26)
[2017-05-09] MEDS ORDERED: RT-ALBUTEROL/IPRATROPIUM 3 ML (DUONEB) VIAL INH SCH (05:45)
[2017-05-09 06:51] LABS: BASOPHILS % (AUTO) 0 % (0-10); EOSINOPHILS % (AUTO) 0 % (0-10); LYMPHOCYTES # (AUTO) 0.4 X 10^3 (1.0-4.0); LYMPHOCYTES % (AUTO) 7 % (12-44); MEAN CORPUSCULAR HEMOGLOBIN 32 PG (25-34); MEAN CORPUSCULAR HGB CONC 33 G/DL (32-36); MEAN CORPUSCULAR VOLUME 97 FL (80-99); MEAN PLATELET VOLUME 10.6 FL (7.4-10.4); MONOCYTES # (AUTO) 0.1 X 10^3 (0.0-1.0); MONOCYTES % (AUTO) 2 % (0-12); NEUTROPHILS # (AUTO) 5.3 X 10^3 (1.8-7.8); NEUTROPHILS % (AUTO) 91 % (42-75); PLATELET COUNT 127 10^3/uL (130-400); RED BLOOD COUNT 4.16 10^6/uL (4.35-5.85); RED CELL DISTRIBUTION WIDTH 12.9 % (10.0-14.5); WHITE BLOOD COUNT 5.9 10^3/uL (4.3-11.0)
[2017-05-09 07:08] LABS: ALANINE AMINOTRANSFERASE 30 U/L (0-55); ALBUMIN 3.6 GM/DL (3.2-4.5); ANION GAP 8 MMOL/L (5-14); ASPARTATE AMINO TRANSFERASE 19 U/L (5-34); BILIRUBIN,TOTAL 0.3 MG/DL (0.1-1.0); BLOOD UREA NITROGEN 19 MG/DL (7-18); BUN/CREATININE RATIO 24; CARBON DIOXIDE 38 MMOL/L (21-32); CHLORIDE 91 MMOL/L (98-107); CREATININE SERUM 0.78 MG/DL (0.60-1.30); GFR ESTIMATED > 60; GLUCOSE 191 MG/DL (70-105); POTASSIUM 4.4 MMOL/L (3.6-5.0); SODIUM 137 MMOL/L (135-145); TOTAL PROTEIN 6.1 GM/DL (6.4-8.2)
[2017-05-09 08:22] VITALS: BP 133/77
[2017-05-09] MEDS: RT-ALBUTEROL/IPRATROPIUM 3 ML (DUONEB) VIAL INH SCH ×7 (08:31→22:21)
[2017-05-09] MEDS ORDERED: NITROGLYCERIN 0.4 MG SL TABS BTL 25'S SL PRN (10:15)
[2017-05-09] MEDS ORDERED: RT-ALBUTEROL HFA (VENTOLIN) PER PUFF IH PRN (10:15)
[2017-05-09] MEDS ORDERED: RT-ALBUTEROL/IPRATROPIUM 3 ML (DUONEB) VIAL IH PRN (10:15)
[2017-05-09] MEDS: cefTRIAXone INJECTION 1,000 MG in NS (IVPB) 50 ML IV SCH ×2 (11:13→21:00)
[2017-05-09] MEDS: ENOXAPARIN 40 MG/0.4 ML (LOVENOX) SYR SC SCH (11:14)
[2017-05-09] MEDS: ARIPIPRAZOLE 15 MG (ABILIFY) TAB PO SCH (11:14)
[2017-05-09] MEDS: RANOLAZINE ER 500 MG TAB (RANEXA) PO SCH ×2 (11:14→20:59)
[2017-05-09] MEDS: OMEGA 3 (FISH OIL) 1000 MG CAP PO SCH ×2 (11:15→18:26)
[2017-05-09] MEDS: SERTRALINE 100 MG (ZOLOFT) TAB PO SCH (11:15)
[2017-05-09] MEDS: ASPIRIN E.C. 81 MG (ECOTRIN) TAB PO SCH (11:15)
[2017-05-09] MEDS: CLOPIDOGREL 75 MG (PLAVIX) TABLET PO SCH (11:15)
[2017-05-09] MEDS: MONTELUKAST 10 MG (SINGULAIR) TAB PO SCH (11:15)
[2017-05-09] MEDS: ATORVASTATIN 80 MG (LIPITOR) TABLET PO SCH (11:16)
--- NOTE | 2017-05-09 11:21 | History & Physical-Hospitalist ---
HPI History of Present Illness: HPI/Chief Complaint CC: Neisseria Meningitidis in sputum culture HPI: This is a [address] 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 Will be okay for this afternoon [facility] has been taking care of the family Dr. Zepeda is PCP Pharmacy would like to know why Prednisone restarted was restarted, pt is on Solumedrol Patient Interview: Pt was informed that this afternoon we will end the isolation. Pt confirms coughing up some. Pt confirms Dr. Zepeda as PCP. Physical exam stable. Pt confirms receiving breathing treatments. Scribed by Sandi Cano under direct supervision of Dr. Mel Powers. Source: patient Exam Limitations: no limitations Date Seen 05/09/17 Time Seen by Provider: 10:30 Attending Physician Mel Powers Wen-Chou MD Referring Physician Date of Admission May 08, 2017 at 13:50 Home Medications & Allergies Home Medications Reviewed patient Home Medication Reconciliation Form Allergies Allergies Coded Allergies DOROTA Inhibitors (Verified Allergy, Unknown, Angioedema, 05/08/17) budesonide (Verified Allergy, Unknown, 05/08/17) formoterol (Verified Allergy, Unknown, 05/08/17) tetanus toxoid, adsorbed (Verified Allergy, Unknown, 05/08/17) Past Lsatniu-Kmmsta-Mtmree Hx Patient Social History Marrital Status: Employed/Student: unemployed Alcohol Use: Denies Use Recreational Drug Use: No Smoking Status: Current Everyday Smoker Type Used: Cigarettes Physical Abuse Screen: No Sexual Abuse: No Recent Foreign Travel: No Contact w/other who traveled: No Recent Hopitalizations: Yes (05/05/2014) Immunizations Up To Date Tetanus Booster (TDap): Unknown Pediatric: No Date of Pneumonia Vaccine: Mar 23, 2013 Date of Influenza Vaccine: Mar 10, 2017 Seasonal Allergies Seasonal Allergies: No Surgeries Yes (1 VESSEL CABG, CARDIAC STENTS X 4; LEFT LEG STENT 02/2017) Abdominal, Cardiac, CABG, Coronary Stent, Tonsillectomy, Vascular Surgery Respiratory Yes COPD Currently Using CPAP: No Currently Using BIPAP: No Cardiovascular Yes (CAROTID DISEASE; LEFT LEG STENT ) Coronary Artery Disease, Deep Vein Thrombosis, Heart Attack, High Cholesterol, Hypertension, Peripheral Vascular Neurological No Reproductive System Hx Reproductive Disorders: No Sexually Transmitted Disease: No Genitourinary No Gastrointestinal Yes Gastroesophageal Reflux, Ulcer Musculoskeletal Yes Arthritis Endocrine History of Endocrine Disorders: No HEENT History of HEENT Disorders: No Cancer No Psychosocial History of Psychiatric Problem: Yes Behavioral Health Disorders: Sleep Difficulties, Schizophrenia, Depression Integumentary History of Skin or Integumenta: No Blood Transfusions History of Blood Disorders: No Adverse Reaction to a Blood Tr: No Family Medical History Significant Family History: No Pertinent Family Hx Family Hx: Diabetes mellitus 19 MOTHER FH: heart disease 19 FATHER Review of Systems Constitutional: see HPI EENTM: no symptoms reported Respiratory: cough Cardiovascular: no symptoms reported Gastrointestinal: no symptoms reported Genitourinary: no symptoms reported Musculoskeletal: no symptoms reported Skin: no symptoms reported Psychiatric/Neurological: No Symptoms Reported All Other Systems Reviewed Negative Unless Noted: Yes Physical Exam Physical Exam Vital Signs Vital Sign - Last 12Hours 05/08/17 05/08/17 05/08/17 15:49 16:30 16:32 Temp 98.5 Pulse 93 Resp 20 B/P (MAP) 152/87 (108) Pulse Ox 92 O2 Delivery Nasal Cannula O2 Flow Rate 3.50 FiO2 24 Capillary Refill : General Appearance: No Apparent Distress, WD/WN, Chronically ill, Thin Eyes: Bilateral Eye Normal Inspection, Bilateral Eye PERRL HEENT: PERRL/EOMI, Normal ENT Inspection, Pharynx Normal Neck: Full Range of Motion, Normal Inspection, Non Tender, Supple, Carotid Bruit Respiratory: Chest Non Tender, No Accessory Muscle Use, No Respiratory Distress , Decreased Breath Sounds, Wheezing Cardiovascular: Regular Rate, Rhythm, No Edema, No Gallop, No JVD, No Murmur, Normal Peripheral Pulses Gastrointestinal: Normal Bowel Sounds, No Organomegaly, No Pulsatile Mass, Non Tender, Soft Back: Normal Inspection, No CVA Tenderness, No Vertebral Tenderness Extremity: Normal Capillary Refill, Normal Inspection, Normal Range of Motion, Non Tender, No Calf Tenderness, No Pedal Edema Neurologic/Psychiatric: Alert, Oriented x3, No Motor/Sensory Deficits, Depressed Affect Skin: Normal Color, Warm/Dry Lymphatic: No Adenopathy Results Results/Procedures Lab Laboratory Tests 05/08/17 17:04 05/09/17 06:14 Assessment/Plan Admission Diagnosis Assessment: Neisseria meningitidis bronchitis Severe COPD CAD HLP HTN Assessment and Plan Plan: Reconcile home meds Lovenox for DVT Px DC isolation 24 hours after first dose of Rocephin Continue breathing treatments Continue abx DC Prednisone since on IV steroids Omnicef 300mg PO BID for 10 days at DC Diagnosis/Problems Diagnosis/Problems (1) Infection due to Neisseria meningitidis Status: Acute Assessment & Plan: Rocephin IV 1 gram IV Q12 hours Clinical Quality Measures DVT/VTE Risk/Contraindication: Risk Factor Score Per Nursin RFS Level Per Nursing on Admit: 4+=Very High MEL POWERS DO May 09, 2017 11:21
[2017-05-09 12:51] VITALS: BP 147/72
[2017-05-09 12:52] VITALS: BP 147/72
[2017-05-09] MEDS: ISOSORBIDE MONONITRATE 30 MG (IMDUR) TAB PO SCH (12:57)
[2017-05-09] MEDS ORDERED: RT-ALBUTEROL/IPRATROPIUM 3 ML (DUONEB) VIAL INH PRN (14:30)
[2017-05-09 16:20] VITALS: BP 130/72
[2017-05-09] MEDS: ADVAIR HFA 115/21 MCG INHALER 8 GM IH SCH (19:29)
[2017-05-09] MEDS: CARVEDILOL 6.25 MG (COREG) TAB PO SCH (20:59)
[2017-05-09] MEDS: MIRTAZAPINE 15 MG (REMERON) TAB PO SCH (21:00)
[2017-05-10] VITALS: BP 116/69
[2017-05-10] MEDS: methylPREDNISolone 40 MG/ML (Solu-MEDROL) VIAL IV SCH ×4 (00:48→21:20)
[2017-05-10] MEDS: RT-ALBUTEROL/IPRATROPIUM 3 ML (DUONEB) VIAL INH SCH ×6 (02:27→23:07)
[2017-05-10] MEDS: OMEGA 3 (FISH OIL) 1000 MG CAP PO SCH ×3 (06:27→16:27)
[2017-05-10] MEDS ORDERED: RT-ADVAIR HFA 115/21 MCG PER PUFF IH ONE (06:38)
[2017-05-10] MEDS: ADVAIR HFA 115/21 MCG INHALER 8 GM IH SCH ×2 (06:43→19:17)
[2017-05-10] MEDS: UMECLIDINIUM BROMIDE (INCRUSE ELLIPTA) 7'S IH SCH (06:43)
[2017-05-10 08:00] VITALS: BP 124/74
[2017-05-10] MEDS ORDERED: predniSONE 10 MG TAB PO SCH (09:00)
[2017-05-10] MEDS ORDERED: predniSONE 20 MG TAB PO SCH (09:00)
[2017-05-10] MEDS: ATORVASTATIN 80 MG (LIPITOR) TABLET PO SCH (09:04)
[2017-05-10] MEDS: ASPIRIN E.C. 81 MG (ECOTRIN) TAB PO SCH (09:05)
[2017-05-10] MEDS: CARVEDILOL 6.25 MG (COREG) TAB PO SCH ×2 (09:05→21:20)
[2017-05-10] MEDS: RANOLAZINE ER 500 MG TAB (RANEXA) PO SCH ×2 (09:05→21:20)
[2017-05-10] MEDS: ARIPIPRAZOLE 15 MG (ABILIFY) TAB PO SCH (09:05)
[2017-05-10] MEDS: SERTRALINE 100 MG (ZOLOFT) TAB PO SCH (09:05)
[2017-05-10] MEDS: MONTELUKAST 10 MG (SINGULAIR) TAB PO SCH (09:05)
[2017-05-10] MEDS: CLOPIDOGREL 75 MG (PLAVIX) TABLET PO SCH (09:05)
[2017-05-10] MEDS: ISOSORBIDE MONONITRATE 30 MG (IMDUR) TAB PO SCH (09:06)
[2017-05-10] MEDS: cefTRIAXone INJECTION 1,000 MG in NS (IVPB) 50 ML IV SCH ×2 (09:08→21:20)
[2017-05-10] MEDS: ENOXAPARIN 40 MG/0.4 ML (LOVENOX) SYR SC SCH (10:29)
--- NOTE | 2017-05-10 12:38 | Progress Note-Hospitalist ---
Progress Note HPI/CC on Admission CC: Neisseria Meningitidis in sputum culture HPI: This is a [address] 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 Will be okay for this afternoon [facility] has been taking care of the family Dr. Zepeda is PCP Pharmacy would like to know why Prednisone restarted was restarted, pt is on Solumedrol Patient Interview: Pt was informed that this afternoon we will end the isolation. Pt confirms coughing up some. Pt confirms Dr. Zepeda as PCP. Physical exam stable. Pt confirms receiving breathing treatments. Scribed by Sandi Cano under direct supervision of Dr. Mel Powers. Progress Notes/Assess & Plan Date Seen 05/10/17 Time Seen by Provider: 11:30 Admission Dx/Process Assessment: Neisseria meningitidis bronchitis Severe COPD CAD HLP HTN Diagonsis/Assessment & Plan Pt doing well but still does not feel like he can go home. Severe COPD is an issue and now he reports he will be stopping smoking BM+ today Reviewed labs and meds No pain is reported O2 at home AFVSS, Pleasant, O x 3 Distant BS noted subtle wheeze upper lobes No edema Assessment: Neisseria meningitidis bronchitis Severe COPD CAD HLP HTN Current smoker Plan: Reconciled home meds Lovenox for DVT Px Continue breathing treatments Continue abx Decrease Solumedrol and maintain Nebs Omnicef 300mg PO BID for 10 days at DC Diagnosis/Problems Diagnosis/Problems (1) Infection due to Neisseria meningitidis Status: Acute Assessment & Plan: Rocephin IV 1 gram IV Q12 hours MEL POWERS DO May 10, 2017 12:38
[2017-05-10 15:53] VITALS: BP 134/82
[2017-05-10 19:04] VITALS: BP 136/76
[2017-05-10] MEDS: MIRTAZAPINE 15 MG (REMERON) TAB PO SCH (21:20)
[2017-05-11] VITALS: BP 128/74
[2017-05-11] MEDS: RT-ALBUTEROL/IPRATROPIUM 3 ML (DUONEB) VIAL INH SCH ×6 (02:36→21:42)
[2017-05-11 04:35] LABS: BASOPHILS % (AUTO) 0 % (0-10); EOSINOPHILS % (AUTO) 0 % (0-10); LYMPHOCYTES # (AUTO) 0.8 X 10^3 (1.0-4.0); LYMPHOCYTES % (AUTO) 7 % (12-44); MEAN CORPUSCULAR HEMOGLOBIN 31 PG (25-34); MEAN CORPUSCULAR HGB CONC 33 G/DL (32-36); MEAN CORPUSCULAR VOLUME 95 FL (80-99); MEAN PLATELET VOLUME 10.3 FL (7.4-10.4); MONOCYTES # (AUTO) 0.8 X 10^3 (0.0-1.0); MONOCYTES % (AUTO) 7 % (0-12); NEUTROPHILS # (AUTO) 9.5 X 10^3 (1.8-7.8); NEUTROPHILS % (AUTO) 86 % (42-75); PLATELET COUNT 130 10^3/uL (130-400); RED BLOOD COUNT 4.39 10^6/uL (4.35-5.85); RED CELL DISTRIBUTION WIDTH 12.7 % (10.0-14.5)
[2017-05-11 05:11] LABS: ALANINE AMINOTRANSFERASE 25 U/L (0-55); ALBUMIN 3.3 GM/DL (3.2-4.5); ANION GAP 7 MMOL/L (5-14); ASPARTATE AMINO TRANSFERASE 15 U/L (5-34); BILIRUBIN,TOTAL 0.3 MG/DL (0.1-1.0); BLOOD UREA NITROGEN 22 MG/DL (7-18); BUN/CREATININE RATIO 27; CALCIUM 8.9 MG/DL (8.5-10.1); CARBON DIOXIDE 35 MMOL/L (21-32); CHLORIDE 95 MMOL/L (98-107); CREATININE SERUM 0.83 MG/DL (0.60-1.30); GFR ESTIMATED > 60; GLUCOSE 128 MG/DL (70-105); POTASSIUM 4.7 MMOL/L (3.6-5.0); SODIUM 137 MMOL/L (135-145); TOTAL PROTEIN 5.8 GM/DL (6.4-8.2)
[2017-05-11] MEDS: OMEGA 3 (FISH OIL) 1000 MG CAP PO SCH ×3 (07:02→17:18)
[2017-05-11] MEDS: UMECLIDINIUM BROMIDE (INCRUSE ELLIPTA) 7'S IH SCH (07:13)
[2017-05-11] MEDS: ADVAIR HFA 115/21 MCG INHALER 8 GM IH SCH ×2 (07:13→19:05)
[2017-05-11 07:29] VITALS: BP 147/85
[2017-05-11] MEDS: methylPREDNISolone 40 MG/ML (Solu-MEDROL) VIAL IV SCH ×2 (08:36→20:31)
[2017-05-11] MEDS: RANOLAZINE ER 500 MG TAB (RANEXA) PO SCH ×2 (08:36→20:31)
[2017-05-11] MEDS: ARIPIPRAZOLE 15 MG (ABILIFY) TAB PO SCH (08:36)
[2017-05-11] MEDS: CLOPIDOGREL 75 MG (PLAVIX) TABLET PO SCH (08:36)
[2017-05-11] MEDS: CARVEDILOL 6.25 MG (COREG) TAB PO SCH ×2 (08:36→20:31)
[2017-05-11] MEDS: cefTRIAXone INJECTION 1,000 MG in NS (IVPB) 50 ML IV SCH ×2 (08:36→20:32)
[2017-05-11] MEDS: ISOSORBIDE MONONITRATE 30 MG (IMDUR) TAB PO SCH (08:36)
[2017-05-11] MEDS: ATORVASTATIN 80 MG (LIPITOR) TABLET PO SCH (08:37)
[2017-05-11] MEDS: MONTELUKAST 10 MG (SINGULAIR) TAB PO SCH (08:37)
[2017-05-11] MEDS: ASPIRIN E.C. 81 MG (ECOTRIN) TAB PO SCH (08:37)
[2017-05-11] MEDS: SERTRALINE 100 MG (ZOLOFT) TAB PO SCH (08:37)
[2017-05-11] MEDS: ENOXAPARIN 40 MG/0.4 ML (LOVENOX) SYR SC SCH (09:37)
--- NOTE | 2017-05-11 11:13 | Progress Note-Hospitalist ---
Progress Note HPI/CC on Admission CC: Neisseria Meningitidis in sputum culture HPI: This is a [address] 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 Will be okay for this afternoon [facility] has been taking care of the family Dr. Zepeda is PCP Pharmacy would like to know why Prednisone restarted was restarted, pt is on Solumedrol Patient Interview: Pt was informed that this afternoon we will end the isolation. Pt confirms coughing up some. Pt confirms Dr. Zepeda as PCP. Physical exam stable. Pt confirms receiving breathing treatments. Scribed by Sandi Cano under direct supervision of Dr. Mel Powers. Progress Notes/Assess & Plan Date Seen 05/11/17 Time Seen by Provider: 10:30 Admission Dx/Process Assessment: Neisseria meningitidis bronchitis Severe COPD CAD HLP HTN Diagonsis/Assessment & Plan Pt doing well but had an unwitnessed fall last night without injury and told the nurse this morning this had happened through the night and has multiple falls at home Will need tested for 3L/min at home since he is requiring more here and he has 2L/min at home set up already Reviewed labs and meds No pain is reported DC planned for tomorrow AFVSS, Pleasant, O x 3 Distant BS noted subtle wheeze upper lobes but overall improved No edema Laboratory Tests 05/11/17 04:21 Assessment: Neisseria meningitidis bronchitis Day # 4 Rocephin 1 gram IV Q12 hrs Severe COPD CAD HLP HTN Current smoker [place] Plan: Continue breathing treatments Continue abx Decrease Solumedrol and maintain Nebs Omnicef 300mg PO BID for 8 days at DC Home O2 evaluation to increase from 2 to 3L/min at home at DC Diagnosis/Problems Diagnosis/Problems (1) Infection due to Neisseria meningitidis Status: Acute Assessment & Plan: Rocephin IV 1 gram IV Q12 hours MEL POWERS DO May 11, 2017 11:12
[2017-05-11 15:59] VITALS: BP 131/77
[2017-05-11] MEDS: MIRTAZAPINE 15 MG (REMERON) TAB PO SCH (20:31)
[2017-05-11 20:40] VITALS: BP 145/82
[2017-05-12] VITALS: BP 134/80
[2017-05-12] MEDS: RT-ALBUTEROL/IPRATROPIUM 3 ML (DUONEB) VIAL INH SCH ×3 (01:40→10:00)
[2017-05-12] MEDS: OMEGA 3 (FISH OIL) 1000 MG CAP PO SCH (05:16)
[2017-05-12] MEDS: ADVAIR HFA 115/21 MCG INHALER 8 GM IH SCH (06:53)
[2017-05-12] MEDS: UMECLIDINIUM BROMIDE (INCRUSE ELLIPTA) 7'S IH SCH (06:53)
[2017-05-12 08:02] VITALS: BP 136/73
[2017-05-12] MEDS: SERTRALINE 100 MG (ZOLOFT) TAB PO SCH (08:31)
[2017-05-12] MEDS: RANOLAZINE ER 500 MG TAB (RANEXA) PO SCH (08:31)
[2017-05-12] MEDS: cefTRIAXone INJECTION 1,000 MG in NS (IVPB) 50 ML IV SCH (08:31)
[2017-05-12] MEDS: methylPREDNISolone 40 MG/ML (Solu-MEDROL) VIAL IV SCH (08:32)
[2017-05-12] MEDS: ISOSORBIDE MONONITRATE 30 MG (IMDUR) TAB PO SCH (08:32)
[2017-05-12] MEDS: MONTELUKAST 10 MG (SINGULAIR) TAB PO SCH (08:32)
[2017-05-12] MEDS: ASPIRIN E.C. 81 MG (ECOTRIN) TAB PO SCH (08:32)
[2017-05-12] MEDS: ENOXAPARIN 40 MG/0.4 ML (LOVENOX) SYR SC SCH (08:32)
[2017-05-12] MEDS: CLOPIDOGREL 75 MG (PLAVIX) TABLET PO SCH (08:33)
[2017-05-12] MEDS: ATORVASTATIN 80 MG (LIPITOR) TABLET PO SCH (08:33)
[2017-05-12] MEDS: CARVEDILOL 6.25 MG (COREG) TAB PO SCH (08:37)
[2017-05-12] MEDS: ARIPIPRAZOLE 15 MG (ABILIFY) TAB PO SCH (08:37)
[2017-05-12] MEDS ORDERED: CEFD300C3 PO (10:21)
--- NOTE | 2017-05-12 16:55 | Discharge Summary-Hospitalist ---
Diagnosis/Chief Complaint Date of Admission May 08, 2017 at 13:50 Date of Discharge May 12, 2017 at 11:52 Admission Diagnosis Assessment: Neisseria meningitidis bronchitis Severe COPD CAD HLP HTN Discharge Diagnosis Above (1) Infection due to Neisseria meningitidis Status: Acute Assessment & Plan: Symptoms responded well to treatment (Rocephin) and he was discharged home to complete a 14 day course of abx (Omnicef). Discharge Summary Discharge Physical Examination Allergies: Coded Allergies: DOROAT Inhibitors (Verified Allergy, Unknown, Angioedema, 05/08/17) budesonide (Verified Allergy, Unknown, 05/08/17) formoterol (Verified Allergy, Unknown, 05/08/17) tetanus toxoid, adsorbed (Verified Allergy, Unknown, 05/08/17) Vitals & I&Os Vital Signs Date Time Temp Pulse Resp B/P (MAP) Pulse Ox O2 Delivery O2 Flow Rate FiO2 05/12/17 11:48 05/12/17 09:00 98 Nasal Cannula 4.00 05/12/17 08:02 98.0 69 20 05/08/17 16:32 24 General Appearance: Alert, Oriented X3 Respiratory: Clear to Auscultation, Normal Air Movement Cardiovascular: Regular Rate Psych/Mental Status: Mental Status NL Hospital Course Pt was found to have a sputum culture which grew Neisseria meningitidis as an outpatient and was admitted for IV abx. He responded well but needed and increase in his home oxygen requirement. He is to complete a 14 day course of abx as an outpatient. Discharge Home Medications: Active Scripts Active Cefdinir 300 Mg Capsule 300 Mg PO BID 9 Days Reported Spiriva (Tiotropium [place]) 1 Inh Aerp 1 Cap IH DAILY LAST FILLED 04-02-16 Coreg (Carvedilol) 6.25 Mg Tablet 6.25 Mg PO BID Mirtazapine 15 Mg Tablet 15 Mg PO HS Prednisone 10 Mg Tab 10 Mg PO DAILY ON HOLD UNTIL PREDNISONE TAPER IS COMPLETE, THEN RESUME TAKING Aspirin EC (Aspirin) 81 Mg Tablet.dr 81 Mg PO DAILY Fish Oil 1,200 mg Fish Oil (Fish Oil/Dha/Epa) 1 Each Capsule 1,200 Mg PO TID Proair Hfa (Albuterol Sulfate) 1 Puff Puff 2 Puff IH QID PRN LAST FILLED 04-02-16 Advair 250-50 Diskus (Fluticasone/Salmeterol) 1 Each Blst.w.dev 1 Puff IH BID LAST FILLED 04/02/16 #1 INHALER Iprat-Albut 0.5-3(2.5) mg/3 ml (Ipratropium/Albuterol Sulfate) 3 Ml Ampul.neb 3 Ml IH Q6H PRN LAST FILLED 06/26/15 #60 VIALS Nitrostat (Nitroglycerin) 0.4 Mg Tab.subl 0.4 Mg PO UD PRN Atorvastatin Calcium 80 Mg Tablet 80 Mg PO DAILY Montelukast Sodium 10 Mg Tablet 10 Mg PO DAILY Isosorbide Mononitrate ER (Isosorbide Mononitrate) 30 Mg Tab.er.24h 15 Mg PO DAILY TAKES 1/2 OF A (30 MG) TABLET Ranexa (Ranolazine) 1,000 Mg Tab.er.12h 1,000 Mg PO BID LAST FILLED #60 03-04-17 Sertraline HCl 100 Mg Tablet 200 Mg PO DAILY TAKES 2 (100MG) TABLETS Aripiprazole 30 Mg Tablet 30 Mg PO DAILY Clopidogrel (Clopidogrel Bisulfate) 75 Mg Tablet 75 Mg PO DAILY Instructions to patient/family Please see electronic discharge instructions given to patient. Clinical Quality Measures DVT/VTE Risk/Contraindication: Risk Factor Score Per Nursin RFS Level Per Nursing on Admit: 4+=Very High Copy Copies To 1: BRANDON RODAS MD, KATELYN M MD May 12, 2017 16:55
== END 2017-05-12 11:52 | disposition home or self-care (01) | DRG 191 ==
LOC: 4TH 13:50
PROVIDERS: ADMIT Internal Medicine; ATTEND Internal Medicine
DX: J44.0 Chronic obstructive pulmonary disease with (acute) lower respiratory infection (principal); J20.8 Acute bronchitis due to other specified organisms; A39.8 Other meningococcal infections; F17.210 Nicotine dependence, cigarettes, uncomplicated; I25.10 Atherosclerotic heart disease of native coronary artery without angina pectoris; I10 Essential (primary) hypertension; E78.5 Hyperlipidemia, unspecified; E78.00 Pure hypercholesterolemia, unspecified; I73.9 Peripheral vascular disease, unspecified; K21.9 Gastro-esophageal reflux disease without esophagitis; F20.9 Schizophrenia, unspecified; F32.9 Major depressive disorder, single episode, unspecified; I25.2 Old myocardial infarction; R29.6 Repeated falls; G47.9 Sleep disorder, unspecified; M19.91 Primary osteoarthritis, unspecified site; Z86.718 Personal history of other venous thrombosis and embolism; Z95.1 Presence of aortocoronary bypass graft; Z95.5 Presence of coronary angioplasty implant and graft; Z95.828 Presence of other vascular implants and grafts; Z91.81 History of falling; Z87.11 Personal history of peptic ulcer disease
CPT/HCPCS: 36415; 70496; 70498; 71010; 71020; 80048; 80053; 80306; 80320; 81000; 83735; 84100; 85007; 85025; 85027; 85379; 85610; 85730; 86308; 87070; 87077; 87081; 87205; 87430; 87804; 93005; 94640; 94664; 94760; 94761; 96365; 96375; G0378

== ENCOUNTER → 2017-06-04 | Outpatient (CLI) | payer MEDICARE, MEDICAID ==
[~2017-06-04] MED LIST changes: +CEFD300C3 PO
== END ==
LOC: CARD 08:56
PROVIDERS: ATTEND Internal Medicine Cardiovascular Disease
DX: I25.10 Atherosclerotic heart disease of native coronary artery without angina pectoris (principal); I11.0 Hypertensive heart disease with heart failure; I50.9 Heart failure, unspecified; E78.2 Mixed hyperlipidemia
CPT/HCPCS: 93306

== ENCOUNTER → 2017-06-16 | Outpatient (CLI) | payer MEDICARE, MEDICAID ==
[2017-06-16 13:37] LABS: ALANINE AMINOTRANSFERASE 20 U/L (0-55); ALBUMIN 3.7 GM/DL (3.2-4.5); ALKALINE PHOSPHATASE 81 U/L (40-136); BILIRUBIN,TOTAL 0.5 MG/DL (0.1-1.0); BUN/CREATININE RATIO 10; CALCIUM 9.1 MG/DL (8.5-10.1); CARBON DIOXIDE 31 MMOL/L (21-32); CHLORIDE 100 MMOL/L (98-107); CHOLESTEROL 170 MG/DL (< 200); CREATININE SERUM 0.81 MG/DL (0.60-1.30); GFR ESTIMATED > 60; GLUCOSE 102 MG/DL (70-105); HDL CHOLESTEROL 56 MG/DL (40-60); POTASSIUM 4.3 MMOL/L (3.6-5.0); SODIUM 142 MMOL/L (135-145); TOTAL PROTEIN 6.5 GM/DL (6.4-8.2); TRIGLYCERIDES 177 MG/DL (<150); VLDL CHOLESTEROL 35 MG/DL (5-40)
== END ==
LOC: LAB 13:04
PROVIDERS: ATTEND Internal Medicine Cardiovascular Disease
DX: E78.2 Mixed hyperlipidemia (principal); I25.10 Atherosclerotic heart disease of native coronary artery without angina pectoris; I11.0 Hypertensive heart disease with heart failure; I50.9 Heart failure, unspecified
CPT/HCPCS: 36415; 80053; 80061

== ENCOUNTER 2017-09-14 19:02 | Observation (INO) | payer MEDICARE, MEDICAID ==
[~2017-09-14] VITALS: Ht 172.7 cm; Wt 63.0 kg
[~2017-09-14 19:02] MED LIST changes: +ALBU2.5V4 NEB; +AMOX1TAB12 PO; +ASPI-999 PO; +FLUT16SP22 NS; +GUAI400T71 PO; +PRD20T
--- NOTE | 2017-09-14 19:14 | ED Chest Pain ---
General Stated Complaint: CHEST PAIN Source: patient, old records History of Present Illness Date Seen by Provider: Sep 14, 2017 Time Seen by Provider: 19:05 Initial Comments PT ARRIVES VIA POV FROM HOME C/O CHEST TIGHTNESS FOR 3 DAYS HAS HAD SHARP CHEST PAINS OFF AND ON ALL DAY, WORSE FOR THE LAST 30 MINUTES RATES PAIN 7/10 NOW TOOK NTG X 3 IN LAST 30 MINUTES WITHOUT RELIEF. HAS NOT TAKEN ANY ASPIRIN TODAY PAIN RADIATES INTO NECK ALSO C/O SHORTNESS OF BREATH--HAS COPD AND WEARS O2 AT 3L/NC CONTINUOUSLY. USED NEBULIZER X 3 TODAY WITHOUT RELIEF C/O NAUSEA, NO VOMITING NO SWELLING IN LEGS/ FEET OR PAIN IN CALVES PT HAS LONG HISTORY OF SAME, WITH A MULTITUDE OF ER VISITS AND CARDIAC WORK UP'S Allergies and Home Medications Allergies Coded Allergies: DOROTA Inhibitors (Verified Allergy, Unknown, Angioedema, 05/08/17) budesonide (Verified Allergy, Unknown, 05/08/17) formoterol (Verified Allergy, Unknown, 05/08/17) tetanus toxoid, adsorbed (Verified Allergy, Unknown, 05/08/17) Home Medications Albuterol Sulfate 2.5 Mg/3 Ml Vial.neb, 2.5 MG NEB Q6H PRN for WHEEZING, ( Reported) Aripiprazole 30 Mg Tablet, 30 MG PO DAILY, (Reported) Atorvastatin Calcium 80 Mg Tablet, 80 MG PO DAILY, (Reported) LAST FILLED #30 05-23-17 Carvedilol 6.25 Mg Tablet, 6.25 MG PO BID, (Reported) Clopidogrel Bisulfate 75 Mg Tablet, 75 MG PO DAILY, (Reported) Fluticasone/Salmeterol 1 Each Blst.w.dev, 1 PUFF IH BID, (Reported) Isosorbide Mononitrate 30 Mg Tab.er.24h, 15 MG PO DAILY, (Reported) LAST FILLED #45 04-15-17 TAKES 1/2 OF A (30 MG) TABLET Mirtazapine 15 Mg Tablet, 15 MG PO HS, (Reported) Montelukast Sodium 10 Mg Tablet, 10 MG PO DAILY, (Reported) LAST FILLED #30 05-23-17 Nitroglycerin 0.4 Mg Tab.subl, 0.4 MG PO UD PRN for CHEST PAIN, (Reported) [place] 3 Polyunsat Fatty Acids 1,000 Mg Cap, 1,000 MG PO DAILY, (Reported) Prednisone 10 Mg Tab, 60 MG PO DAILY@1200 resume your home prednisone after you finish the taper Prescribed by: JUAREZ TOLENTINO on 07/31/17 0734 Ranolazine 1,000 Mg Tab.er.12h, 1,000 MG PO BID, (Reported) LAST FILLED #60 05-23-17 Sertraline HCl 100 Mg Tablet, 200 MG PO DAILY, (Reported) TAKES 2 (100MG) TABLETS Review of Systems Constitutional: no symptoms reported Respiratory: See HPI, Shortness of Air Cardiovascular: See HPI, Chest Pain, Denies Edema, Denies Lightheadedness, Denies Palpitations, Denies Syncope Gastrointestinal: See HPI, Denies Abdominal Pain, Nausea Past Jmnrarg-Efuxmc-Xmkeun Hx Patient Social History Type Used: Cigarettes Recent Hopitalizations: Yes (05/25) Immunizations Up To Date Tetanus Booster (TDap): Unknown PED Vaccines UTD: No Date of Pneumonia Vaccine: Mar 23, 2013 Date of Influenza Vaccine: Jul 31, 2017 Seasonal Allergies Seasonal Allergies: No Past Medical History Surgeries: Yes (1 VESSEL CABG, CARDIAC STENTS X 4; LEFT LEG STENT 02/2017) Abdominal, Cardiac, CABG, Coronary Stent, Tonsillectomy, Vascular Surgery Respiratory: Yes COPD Currently Using CPAP: No Currently Using BIPAP: No Cardiac: Yes (CAROTID DISEASE; LEFT LEG STENT ) Coronary Artery Disease, Deep Vein Thrombosis, Heart Attack, High Cholesterol, Hypertension, Peripheral Vascular Neurological: No Reproductive Disorders: No Sexually Transmitted Disease: No Genitourinary: No Gastrointestinal: Yes Gastroesophageal Reflux, Ulcer Musculoskeletal: Yes Arthritis Endocrine: No HEENT: No Cancer: No Psychosocial: Yes Sleep Difficulties, Schizophrenia, Depression Integumentary: No Blood Disorders: No Adverse Reaction/Blood Tranf: No Family Medical History Diabetes mellitus 19 MOTHER FH: heart disease 19 FATHER No Pertinent Family Hx Physical Exam Vital Signs Vital Signs - First Documented 09/14/17 19:05 Temp 98.1 Pulse 93 Resp 18 B/P (MAP) 156/87 (110) Pulse Ox 95 O2 Delivery Nasal Cannula O2 Flow Rate 3.00 Capillary Refill : Progress/Results/Core Measures Lab Results Laboratory Tests Test 09/14/17 19:12 Range/Units White Blood Count 6.8 4.3-11.0 10^3/uL Red Blood Count 4.66 4.35-5.85 10^6/uL Hemoglobin 14.3 13.3-17.7 G/DL Hematocrit 45 40-54 % Mean Corpuscular Volume 96 80-99 FL Mean Corpuscular Hemoglobin 31 25-34 PG Mean Corpuscular Hemoglobin Concent 32 32-36 G/DL Red Cell Distribution Width 12.9 10.0-14.5 % Platelet Count 129 L 130-400 10^3/uL Mean Platelet Volume 11.0 H 7.4-10.4 FL Neutrophils (%) (Auto) 55 42-75 % Lymphocytes (%) (Auto) 32 12-44 % Monocytes (%) (Auto) 11 0-12 % Eosinophils (%) (Auto) 2 0-10 % Basophils (%) (Auto) 0 0-10 % Neutrophils # (Auto) 3.7 1.8-7.8 X 10^3 Lymphocytes # (Auto) 2.2 1.0-4.0 X 10^3 Monocytes # (Auto) 0.7 0.0-1.0 X 10^3 Eosinophils # (Auto) 0.1 0.0-0.3 10^3/uL Basophils # (Auto) 0.0 0.0-0.1 10^3/uL Prothrombin Time 12.5 12.2-14.7 SEC INR Comment 0.9 0.8-1.4 Activated Partial Thromboplast Time 24 24-35 SEC Sodium Level 139 135-145 MMOL/L Potassium Level 4.4 3.6-5.0 MMOL/L Chloride Level 95 L 98-107 MMOL/L Carbon Dioxide Level 38 H 21-32 MMOL/L Anion Gap 6 5-14 MMOL/L Blood Urea Nitrogen 7 7-18 MG/DL Creatinine 0.79 0.60-1.30 MG/DL Estimat Glomerular Filtration Rate > 60 BUN/Creatinine Ratio 9 Glucose Level 87 70-105 MG/DL Calcium Level 9.7 8.5-10.1 MG/DL Magnesium Level 2.0 1.8-2.4 MG/DL Total Bilirubin 0.4 0.1-1.0 MG/DL Aspartate Amino Transf (AST/SGOT) 19 5-34 U/L Alanine Aminotransferase (ALT/SGPT) 17 0-55 U/L Alkaline Phosphatase 66 40-136 U/L Total Creatine Kinase 67 30-200 U/L Creatine Kinase MB 2.1 <6.6 NG/ML Troponin I < 0.30 <0.30 NG/ML B-Type Natriuretic Peptide 29.6 <100.0 PG/ML Total Protein 7.4 6.4-8.2 GM/DL Albumin 4.5 3.2-4.5 GM/DL Amylase Level 49 25-125 U/L Lipase 24 8-78 U/L My Orders Orders - DEBBIE ESPINOSA DO Amylase (09/14/17 19:08) Cbc With Automated Diff (09/14/17 19:08) Comprehensive Metabolic Panel (09/14/17:08) Creatine Kinase (09/14/17:08) Creatine Kinase Mb (09/14/17 19:08) Lipase (09/14/17:08) Partial Thromboplastin Time (09/14/17:08) Protime With Inr (09/14/17:08) Troponin I (09/14/17:08) Chest 1 View, Ap/Pa Only (09/14/17:08) O2 (09/14/17 19:08) Ekg Tracing (09/14/17:08) Aspirin Chewable Tablet (Baby Aspirin Ch (09/14/17 19:15) BNP (09/14/17 19:08) Monitor-Rhythm Ecg Trace Only (09/14/17:08) Magnesium (09/14/17:08) Albuterol/Ipra Inhalation Soln (Duoneb I (09/14/17 19:30) Rt Request For Service (09/14/17:18) Svn Sm Volume Nebulizer Rt-Rfs (09/14/17:18) Ketorolac Injection (Toradol Injection) (09/14/17 19:30) Methylprednisolone Sod Succ (Solu-Medrol (09/14/17 19:30) Pantoprazole Injection (Protonix Injecti (09/14/17 19:30) Medications Given in ED Vital Signs/I&O 09/14/17 09/14/17 09/14/17 19:05 19:05 19:34 Temp 98.1 Pulse 93 Resp 18 B/P (MAP) 156/87 (110) Pulse Ox 95 98 99 O2 Delivery Nasal Cannula Nasal Cannula Nasal Cannula O2 Flow Rate 3.00 3.00 3.00 Comments CXR--NO ACUTE PROCESS, PER RADIOLOGIST REPORT @ 2008 Reviewed: Reviewed by Me Departure Communication (Admissions) 2029--SPOKE WITH DR. CASTILLO. HE WILL SEE PT IN CONSULT 2031--SPOKE WITH DR. TOLENTINO, ACCEPTS PT FOR ADMIT. Impression Primary Impression: Chest pain Additional Impressions: COPD (chronic obstructive pulmonary disease) Anxiety ASVD (arteriosclerotic vascular disease) CAD (coronary artery disease) Disposition: ADMITTED INPATIENT Condition: Stable Admissions Decision to Admit Reason: Admit from ER (General) Decision to Admit/Date: Sep 14, 2017 Time/Decision to Admit Time: 20:30 Departure-Patient Inst. Referrals: BRANDON RODAS MD (PCP/Family) Primary Care Physician DEBBIE ESPINOSA DO Sep 14, 2017 19:14
[2017-09-14] MEDS ORDERED: ASPIRIN 81 MG CHEW (CHILDREN'S ASA) PO ONE (19:15)
[2017-09-14 19:21] LABS: BASOPHILS % (AUTO) 0 % (0-10); EOSINOPHILS # (AUTO) 0.1 10^3/uL (0.0-0.3); EOSINOPHILS % (AUTO) 2 % (0-10); HEMATOCRIT 45 % (40-54); HEMOGLOBIN 14.3 G/DL (13.3-17.7); LYMPHOCYTES # (AUTO) 2.2 X 10^3 (1.0-4.0); LYMPHOCYTES % (AUTO) 32 % (12-44); MEAN CORPUSCULAR HEMOGLOBIN 31 PG (25-34); MEAN CORPUSCULAR HGB CONC 32 G/DL (32-36); MEAN CORPUSCULAR VOLUME 96 FL (80-99); MONOCYTES # (AUTO) 0.7 X 10^3 (0.0-1.0); MONOCYTES % (AUTO) 11 % (0-12); NEUTROPHILS # (AUTO) 3.7 X 10^3 (1.8-7.8); NEUTROPHILS % (AUTO) 55 % (42-75); PLATELET COUNT 129 10^3/uL (130-400); RED BLOOD COUNT 4.66 10^6/uL (4.35-5.85); RED CELL DISTRIBUTION WIDTH 12.9 % (10.0-14.5); WHITE BLOOD COUNT 6.8 10^3/uL (4.3-11.0)
[2017-09-14] MEDS ORDERED: RT-ALBUTEROL/IPRATROPIUM 3 ML (DUONEB) VIAL INH ONE (19:30)
[2017-09-14] MEDS ORDERED: PANTOPRAZOLE 40 MG/10 ML (PROTONIX) VIAL IV ONE (19:30)
[2017-09-14] MEDS ORDERED: KETOROLAC 30 MG/ML VIAL IVP ONE (19:30)
[2017-09-14] MEDS ORDERED: methylPREDNISolone 125 MG (Solu-MEDROL) VIAL IVP ONE (19:30)
[2017-09-14 19:34] LABS: INR 0.9 (0.8-1.4); PROTHROMBIN TIME PATIENT 12.5 SEC (12.2-14.7)
[2017-09-14 19:38] LABS: ALANINE AMINOTRANSFERASE 17 U/L (0-55); ALBUMIN 4.5 GM/DL (3.2-4.5); ALKALINE PHOSPHATASE 66 U/L (40-136); AMYLASE 49 U/L (25-125); BILIRUBIN,TOTAL 0.4 MG/DL (0.1-1.0); BUN/CREATININE RATIO 9; CALCIUM 9.7 MG/DL (8.5-10.1); CARBON DIOXIDE 38 MMOL/L (21-32); CHLORIDE 95 MMOL/L (98-107); CREATINE KINASE 67 U/L (30-200); CREATININE SERUM 0.79 MG/DL (0.60-1.30); GFR ESTIMATED > 60; GLUCOSE 87 MG/DL (70-105); LIPASE 24 U/L (8-78); POTASSIUM 4.4 MMOL/L (3.6-5.0); SODIUM 139 MMOL/L (135-145); TOTAL PROTEIN 7.4 GM/DL (6.4-8.2)
[2017-09-14 19:51] LABS: CREATINE KINASE MB 2.1 NG/ML (<6.6)
--- NOTE | 2017-09-14 19:56 | Diagnostic Imaging Report ---
CHEST 1 VIEW, AP/PA ONLY Indication: Chest pain Comparison: 07/30/2017 Findings: No focal airspace disease in the visualized lungs. Please note that the posterior lower lobes are poorly evaluated by portable radiography. No pleural effusion or pneumothorax. Normal cardiac silhouette size. Status post CABG. Impression: No acute cardiopulmonary process by portable radiography. Dictated by: Dictated on workstation # [id number]
[2017-09-14] MEDS ORDERED: NITROGLYCERIN 2% OINT 1 GM UNIT DOSE PACKET TOP ONE (20:45)
[2017-09-14 22:05] VITALS: BP 145/82
[2017-09-14 22:30] VITALS: BP 142/65
[2017-09-14 22:38] VITALS: BP 146/76
[2017-09-14 22:50] VITALS: BP 145/84
[2017-09-14 23:00] VITALS: BP 145/82
[2017-09-14] MEDS ORDERED: RT-ALBUTEROL/IPRATROPIUM 3 ML (DUONEB) VIAL INH PRN (23:15)
[2017-09-14] MEDS ORDERED: NITROGLYCERIN 0.4 MG SL TABS BTL 25'S SL PRN (23:30)
[2017-09-14] MEDS ORDERED: morphine INJ 4 MG/ML 1 ML (VIAL/SYRINGE) IV PRN (23:30)
[2017-09-15] VITALS: BP 147/84
[2017-09-15] MEDS: RT-ALBUTEROL/IPRATROPIUM 3 ML (DUONEB) VIAL INH SCH ×2 (02:02→09:40)
[2017-09-15 03:25] VITALS: BP 133/71
[2017-09-15] MEDS ORDERED: methylPREDNISolone 125 MG (Solu-MEDROL) VIAL IVP SCH (04:00)
[2017-09-15] MEDS ORDERED: NITROGLYCERIN 2% OINT 1 GM UNIT DOSE PACKET TOP SCH (04:00)
[2017-09-15 04:49] LABS: BASOPHILS % (AUTO) 0 % (0-10); EOSINOPHILS % (AUTO) 0 % (0-10); HEMATOCRIT 40 % (40-54); HEMOGLOBIN 12.9 G/DL (13.3-17.7); LYMPHOCYTES # (AUTO) 0.4 X 10^3 (1.0-4.0); LYMPHOCYTES % (AUTO) 10 % (12-44); MEAN CORPUSCULAR HEMOGLOBIN 31 PG (25-34); MEAN CORPUSCULAR HGB CONC 32 G/DL (32-36); MEAN CORPUSCULAR VOLUME 96 FL (80-99); MEAN PLATELET VOLUME 10.8 FL (7.4-10.4); MONOCYTES % (AUTO) 0 % (0-12); NEUTROPHILS # (AUTO) 3.6 X 10^3 (1.8-7.8); NEUTROPHILS % (AUTO) 90 % (42-75); PLATELET COUNT 107 10^3/uL (130-400); RED BLOOD COUNT 4.17 10^6/uL (4.35-5.85); RED CELL DISTRIBUTION WIDTH 12.6 % (10.0-14.5)
[2017-09-15 05:06] LABS: ALANINE AMINOTRANSFERASE 14 U/L (0-55); ALBUMIN 3.8 GM/DL (3.2-4.5); ALKALINE PHOSPHATASE 57 U/L (40-136); BILIRUBIN,TOTAL 0.3 MG/DL (0.1-1.0); BUN/CREATININE RATIO 11; CALCIUM 9.5 MG/DL (8.5-10.1); CARBON DIOXIDE 34 MMOL/L (21-32); CHLORIDE 93 MMOL/L (98-107); CHOLESTEROL 177 MG/DL (< 200); CREATININE SERUM 0.83 MG/DL (0.60-1.30); GFR ESTIMATED > 60; GLUCOSE 193 MG/DL (70-105); HDL CHOLESTEROL 76 MG/DL (40-60); POTASSIUM 4.3 MMOL/L (3.6-5.0); SODIUM 138 MMOL/L (135-145); TOTAL PROTEIN 5.9 GM/DL (6.4-8.2); TRIGLYCERIDES 36 MG/DL (<150); VLDL CHOLESTEROL 7 MG/DL (5-40)
[2017-09-15 05:17] LABS: MYOGLOBIN SERUM 27.2 NG/ML (10.0-92.0)
[2017-09-15 08:00] VITALS: BP 121/76
--- NOTE | 2017-09-15 08:28 | Pulmonary Consultation ---
History of Present Illness History of Present Illness Date of Consultation 09/15/17 08:23 Time Seen by Provider: 08:23 Date of Admission History of Present Illness 62yo with hx of severe oxygen dependent COPD presented to ED secondary to worsening SOB, and CP over the last 3 days. Pt has had previous hospitalizations secondary to SOB. He was recently discharged. No palpitation, no syncope or near syncopal episodes. No chest pain. I am consulted for pulmonary management. Allergies and Home Medications Allergies Coded Allergies: DOROTA Inhibitors (Verified Allergy, Unknown, Angioedema, 05/08/17) budesonide (Verified Allergy, Unknown, 05/08/17) formoterol (Verified Allergy, Unknown, 05/08/17) tetanus toxoid, adsorbed (Verified Allergy, Unknown, 05/08/17) Home Medications Albuterol Sulfate 2.5 Mg/3 Ml Vial.neb, 2.5 MG NEB TID, (Reported) Albuterol Sulfate 2.5 Mg/3 Ml Vial.neb, 2.5 MG NEB DAILY PRN for WHEEZING, ( Reported) Aripiprazole 30 Mg Tablet, 30 MG PO DAILY, (Reported) Atorvastatin Calcium 80 Mg Tablet, 80 MG PO DAILY, (Reported) Carvedilol 6.25 Mg Tablet, 6.25 MG PO BID, (Reported) Clopidogrel Bisulfate 75 Mg Tablet, 75 MG PO DAILY, (Reported) Fluticasone/Vilanterol 1 Each Blst.w.dev, 1 PUFF INH DAILY, (Reported) Isosorbide Mononitrate 30 Mg Tab.er.24h, 15 MG PO DAILY, (Reported) TAKES 1/2 (30MG) TABLET Mirtazapine 15 Mg Tablet, 15 MG PO HS, (Reported) LAST FILLED #30 06-17-17 Montelukast Sodium 10 Mg Tablet, 10 MG PO DAILY, (Reported) Nitroglycerin 0.4 Mg Tab.subl, 0.4 MG PO UD PRN for CHEST PAIN, (Reported) [place] 3 Polyunsat Fatty Acids 1,000 Mg Cap, 1,000 MG PO TID, (Reported) Prednisone 10 Mg Tab, 10 MG PO DAILY, (Reported) Prednisone 10 Mg Tab.ds.pk, 10 MG PO DAILY Take 6 tabs(60mg)daily,decrease by 1 tab(10MG)daily. Prescribed by: OUMAR POWERS on 09/15/17 0943 Ranolazine 1,000 Mg Tab.er.12h, 1,000 MG PO BID, (Reported) Sertraline HCl 100 Mg Tablet, 200 MG PO DAILY, (Reported) TAKES 2 (100MG) TABLETS Past Rsbldhd-Xstcxp-Gwzbnl Hx Patient Social History Alcohol Use: Denies Use Recreational Drug Use: No Smoking Status: Current Everyday Smoker Type Used: Cigarettes Recent Foreign Travel: No Contact w/Someone Who Travel: No Recent Infectious Disease Expo: No Recent Hopitalizations: Yes (07/31/2017) Physical Abuse: No Sexual Abuse: No Mistreated: No Fear: No Immunizations Up To Date Tetanus Booster (TDap): Unknown PED Vaccines UTD: No Date of Pneumonia Vaccine: Mar 23, 2013 Date of Influenza Vaccine: Jul 31, 2017 Seasonal Allergies Seasonal Allergies: No Past Medical History Surgeries: Yes (1 VESSEL CABG, CARDIAC STENTS X 4; LEFT LEG STENT 02/2017) Abdominal, Cardiac, CABG, Coronary Stent, Tonsillectomy, Vascular Surgery Respiratory: Yes Asthma, Pneumonia, COPD Currently Using CPAP: No Currently Using BIPAP: No Cardiac: Yes (CAROTID DISEASE; LEFT LEG STENT ) Coronary Artery Disease, Deep Vein Thrombosis, Heart Attack, High Cholesterol, Hypertension, Peripheral Vascular Neurological: No Reproductive Disorders: No Sexually Transmitted Disease: No HIV/AIDS: No Genitourinary: No Gastrointestinal: Yes Gastroesophageal Reflux, Ulcer Musculoskeletal: Yes Arthritis Endocrine: No HEENT: No Loss of Vision: Denies Hearing Impairment: Denies Cancer: No Psychosocial: Yes Sleep Difficulties, Schizophrenia, Depression Nursing Suicide Risk Score: 0 Integumentary: No Blood Disorders: No Adverse Reaction/Blood Tranf: No Family Medical History Diabetes mellitus 19 MOTHER FH: heart disease 19 FATHER No Pertinent Family Hx Review of Systems Time Seen by Provider: 08:54 Constitutional: Sweats, Weakness, Malaise, No: Fever Eyes: No: Pain, Vision change, Conjunctivae inflammation, Eyelid inflammation, Other, Redness ENT: Nose congestion, No: Ear discharge, Nose discharge Respiratory: Cough, Dry, Shortness of breath, SOB with excertion Cardiovascular: No: Chest Pain, Palpitations, Paroxysmal Noc. Dyspnea Gastrointestinal: No: Nausea, Vomiting, Abdominal Pain Genitourinary: No Dysuria, No Frequency, No Incontinence Musculoskeletal: No: shoulder pain Neurological: Weakness Exam Exam Vital Signs Date Time Temp Pulse Resp B/P (MAP) Pulse Ox O2 Delivery O2 Flow Rate FiO2 09/15/17 08:00 97.9 71 121/76 (91) 16 Nasal Cannula 3.00 09/15/17 07:00 66 09/15/17 03:25 97 NIV Bilevel 3.00 09/15/17 03:25 97.4 81 20 133/71 (91) 96 Nasal Cannula 3.00 09/15/17 02:03 92 Nasal Cannula 2.00 09/15/17 01:00 83 09/15/17 00:00 97.1 76 16 147/84 (105) 98 Nasal Cannula 3.00 09/14/17 23:06 100 NIV Bilevel 3.00 09/14/17 23:00 82 98 32 09/14/17 22:56 98 Nasal Cannula 3.00 09/14/17 22:50 88 18 145/84 (104) 100 Nasal Cannula 3.00 09/14/17 22:38 78 20 146/76 (99) 98 Nasal Cannula 3.00 09/14/17 22:31 99 Nasal Cannula 3.00 09/14/17 22:30 75 18 142/65 (90) 99 Nasal Cannula 3.00 09/14/17 22:08 78 09/14/17 22:05 97.0 75 20 145/82 (103) 98 Nasal Cannula 3.00 09/14/17 21:12 84 20 120/76 97 Nasal Cannula 3.00 09/14/17 19:34 99 Nasal Cannula 3.00 09/14/17 19:05 98.1 93 18 156/87 (110) 98 Nasal Cannula 3.00 09/14/17 19:05 95 Nasal Cannula 3.00 General Appearance: No Apparent Distress, WD/WN HEENT: PERRL/EOMI, Normal ENT Inspection, Pharynx Normal Neck: Full Range of Motion, Normal Inspection, Non Tender, Supple Respiratory: No Accessory Muscle Use, No Respiratory Distress, Decreased Breath Sounds Cardiovascular: No Edema, No Gallop, No JVD Capillary Refill: Less Than 3 Seconds Gastrointestinal: normal bowel sounds, non tender, soft, no organomegaly, no pulsatile mass Extremity: Normal Capillary Refill Neurologic/Psychiatric: Alert, Oriented x3 Skin: Normal Color, Warm/Dry Lymphatic: No Adenopathy Results Lab Laboratory Tests 09/14/17 19:12 09/15/17 03:30 Assessment/Plan Assessment/Plan -COPD AE - PT states he is now back to his baseline -He has f/u CT scheduled for tomorrow. -F/u in my office next week. pt is ok from [facility] for discharge. -SVNS, -Solumedrol - change to prednisone taper -OXygen 254 XIMENA QUINONES DO Sep 15, 2017 08:28
--- NOTE | 2017-09-15 08:31 | Consultation-Cardiology ---
HPI-Cardiology Cardiology Consultation Date of Consultation 09/15/17 Date of Admission Time Seen by Provider: 08:26 Indication: Chest pain HPI 62 years old gentleman with extensive history of coronary artery disease, peripheral arterial disease and COPD. Multiple admissions in the past for chest pain or shortness of breath. He was discharged recently, started having increasing chest pain and shortness of breath wheezing, patient is still an active smoker. Took couple of nitroglycerin without relief. Came into the emergency room, he was given nitroglycerin and steroid, this morning he is feeling better. No chest pain, still having mild dyspnea. No palpitation, no syncope or near syncopal episodes. Home Medications & Allergies Allergies: Coded Allergies: DOROTA Inhibitors (Verified Allergy, Unknown, Angioedema, 05/08/17) budesonide (Verified Allergy, Unknown, 05/08/17) formoterol (Verified Allergy, Unknown, 05/08/17) tetanus toxoid, adsorbed (Verified Allergy, Unknown, 05/08/17) Home Medication List Reviewed: Yes OCC-Jnexus-Vcgorq Hx Patient Social History Marital Status: Employed/Student: unemployed Alcohol Use: Denies Use Recreational Drug Use: No Smoking Status: Current Everyday Smoker Former smoker/When Quit: Aug 21, 2014 Type Used: Cigarettes Recent Foreign Travel: No Recent Infectious Disease Expo: No Recent Hopitalizations: Yes (07/31/2017) Physical Abuse Screen: No Sexual Abuse: No Immunizations Up To Date Tetanus Booster (TDap): Unknown Date of Pneumonia Vaccine: Mar 23, 2013 Date of Influenza Vaccine: Jul 31, 2017 Past Medical History Past medical history as discussed below Family Medical History Significant Family History: No Pertinent Family Hx Family History: Diabetes mellitus 19 MOTHER FH: heart disease 19 FATHER Constitutional: see HPI, malaise, weakness EENTM: see HPI, no symptoms reported Respiratory: see HPI, cough, dyspnea on exertion, No hemoptysis, No orthopnea, No phlegm, short of breath, No stridor, wheezing, No other Cardiovascular: see HPI, chest pain, edema, No Hx of Intervention, No palpitations, No syncope, No vascular heart diseas, No other Gastrointestinal: no symptoms reported, see HPI Genitourinary: no symptoms reported, see HPI Musculoskeletal: no symptoms reported, see HPI Skin: no symptoms reported, see HPI Psychiatric/Neurological: No Symptoms Reported, See HPI Reviewed Test Results Reviewed Test Results Lab Laboratory Tests Test 09/14/17 19:12 09/15/17 01:10 09/15/17 03:30 Range/Units White Blood Count 6.8 4.0 L 4.3-11.0 10^3/uL Red Blood Count 4.66 4.17 L 4.35-5.85 10^6/uL Hemoglobin 14.3 12.9 L 13.3-17.7 G/DL Hematocrit 45 40 40-54 % Mean Corpuscular Volume 96 96 80-99 FL Mean Corpuscular Hemoglobin 31 31 25-34 PG Mean Corpuscular Hemoglobin Concent 32 32 32-36 G/DL Red Cell Distribution Width 12.9 12.6 10.0-14.5 % Platelet Count 129 L 107 L 130-400 10^3/uL Mean Platelet Volume 11.0 H 10.8 H 7.4-10.4 FL Neutrophils (%) (Auto) 55 90 H 42-75 % Lymphocytes (%) (Auto) 32 10 L 12-44 % Monocytes (%) (Auto) 11 0 0-12 % Eosinophils (%) (Auto) 2 0 0-10 % Basophils (%) (Auto) 0 0 0-10 % Neutrophils # (Auto) 3.7 3.6 1.8-7.8 X 10^3 Lymphocytes # (Auto) 2.2 0.4 L 1.0-4.0 X 10^3 Monocytes # (Auto) 0.7 0.0 0.0-1.0 X 10^3 Eosinophils # (Auto) 0.1 0.0 0.0-0.3 10^3/uL Basophils # (Auto) 0.0 0.0 0.0-0.1 10^3/uL Prothrombin Time 12.5 12.2-14.7 SEC INR Comment 0.9 0.8-1.4 Activated Partial Thromboplast Time 24 24-35 SEC Sodium Level 139 138 135-145 MMOL/L Potassium Level 4.4 4.3 3.6-5.0 MMOL/L Chloride Level 95 L 93 L 98-107 MMOL/L Carbon Dioxide Level 38 H 34 H 21-32 MMOL/L Anion Gap 6 11 5-14 MMOL/L Blood Urea Nitrogen 7 9 7-18 MG/DL Creatinine 0.79 0.83 0.60-1.30 MG/DL Estimat Glomerular Filtration Rate > 60 > 60 BUN/Creatinine Ratio 9 11 Glucose Level 87 193 H 70-105 MG/DL Calcium Level 9.7 9.5 8.5-10.1 MG/DL Magnesium Level 2.0 1.8-2.4 MG/DL Total Bilirubin 0.4 0.3 0.1-1.0 MG/DL Aspartate Amino Transf (AST/SGOT) 19 13 5-34 U/L Alanine Aminotransferase (ALT/SGPT) 17 14 0-55 U/L Alkaline Phosphatase 66 57 40-136 U/L Total Creatine Kinase 67 30-200 U/L Creatine Kinase MB 2.1 <6.6 NG/ML Troponin I < 0.30 < 0.30 <0.30 NG/ML B-Type Natriuretic Peptide 29.6 <100.0 PG/ML Total Protein 7.4 5.9 L 6.4-8.2 GM/DL Albumin 4.5 3.8 3.2-4.5 GM/DL Amylase Level 49 25-125 U/L Lipase 24 8-78 U/L Myoglobin 27.2 10.0-92.0 NG/ML Triglycerides Level 36 <150 MG/DL Cholesterol Level 177 < 200 MG/DL LDL Cholesterol Direct 86 1-129 MG/DL VLDL Cholesterol 7 5-40 MG/DL HDL Cholesterol 76 H 40-60 MG/DL Physical Exam Vital Signs Vital Signs - First Documented 09/14/17 09/14/17 19:05 23:00 Temp 98.1 Pulse 93 Resp 18 B/P (MAP) 156/87 (110) Pulse Ox 95 O2 Delivery Nasal Cannula O2 Flow Rate 3.00 FiO2 32 Capillary Refill : Less Than 3 Seconds General Appearance: No Apparent Distress, WD/WN Eyes: Bilateral Eye Normal Inspection, Bilateral Eye PERRL, Bilateral Eye EOMI HEENT: PERRL/EOMI, TMs Normal, Normal ENT Inspection, Pharynx Normal Neck: Full Range of Motion, Normal Inspection, Non Tender, Supple, Carotid Bruit Respiratory: Chest Non Tender, No Accessory Muscle Use, No Respiratory Distress , Crackles, Wheezing Cardiovascular: Regular Rate, Rhythm, No Edema, No Gallop, No JVD, Normal Peripheral Pulses, Systolic Murmur Gastrointestinal: Normal Bowel Sounds, No Organomegaly, No Pulsatile Mass, Non Tender, Soft Back: Normal Inspection, No CVA Tenderness, No Vertebral Tenderness Extremity: Normal Capillary Refill, Normal Inspection, Normal Range of Motion, Non Tender, No Calf Tenderness, No Pedal Edema Neurologic/Psychiatric: Alert, Oriented x3, No Motor/Sensory Deficits, Normal Mood/Affect Skin: Normal Color, Warm/Dry Lymphatic: No Adenopathy A/P-Cardiology Admission Diagnosis Unstable angina COPD Coronary artery disease Hypertension Assessment/Plan Chest pain, unstable angina, has history of chronic stable angina, currently feeling better, EKG showed T-wave inversion in the anterolateral lead with deep Q-wave, known to have extensive coronary artery disease with occlusion of the LAD at its midportion, pain is better, chronic enzymes are negative, I recommend conservative management Shortness of breath, COPD exacerbation, feeling better at this time. I asked Dr. Gray to evaluate him. Coronary artery disease, last cardiac catheterization was done in September 2014 showing total occlusion of the LAD at its midportion with occluded vein graft to the LAD, patent stent in the proximal LAD to the diagonal artery, mild disease in the circumflex and right coronary artery, prominent left ventricle with EF 45 percent, continue with conservative management, okay for discharge from cardiology standpoint History of Congestive heart failure, chronic compensated left ventricular systolic dysfunction, ischemic cardiomyopathy, last echocardiogram was done in May 2017 showed improvement in the left ventricular function with ejection fraction 55-65 percent. Pulmonary hypertension with PA pressure of 45 mmHg. No Congestive heart failure at this time Hypertension, restart home medication monitor blood pressure Hyperlipidemia, was on Lipitor 80 mg daily, continue to monitor lipids Chronic tobacco use, still continuing to smoke, educated about smoking cessation Carotid stenosis, followed by [facility] Peripheral arterial disease, followed by [facility] Anxiety. From cardiology standpoint okay for discharge, follow-up as an outpatient Clinical Quality Measures AMI/AHF: ASA po Prior to arrival: No DVT/VTE Risk/Contraindication: Risk Factor Score Per Nursin RFS Level Per Nursing on Admit: 3=High JOSHUA CASTILLO MD Sep 15, 2017 08:31
[2017-09-15] MEDS ORDERED: ASPIRIN E.C. 325 MG (ECOTRIN) TABLET PO SCH (09:00)
[2017-09-15] MEDS ORDERED: predniSONE 10 MG TAB PO SCH (09:00)
[2017-09-15] MEDS ORDERED: FLUT1AER INH ×2 (09:33)
[2017-09-15] MEDS ORDERED: PRD10T PO ×2 (09:33)
[2017-09-15] MEDS ORDERED: ALBU2.5V4 NEB ×2 (09:36)
[2017-09-15] MEDS ORDERED: PRED10TA22 PO ×2 (09:43)
--- NOTE | 2017-09-15 09:44 | Short Stay Summary-Hospitalist ---
History of Present Illness HPI/Chief Complaint CC: Chest pain HPI: This is 62-year-old white male known to me from multiple hospital stays with a history of inoperable CAD managed by Dr. Carrion and severe COPD with continued smoking who presents to the hospital ER with complaints of chest pain. He reports the pain was pressure-like in his mid chest that did not radiate but he just began to feel very ill. He reports shortness of breath more so last night than normal which prompted the ER visit. His EKG showed slight abnormalities change from previous so is placed in observation noted to have no elevation and marked cardial enzymes levels and Dr. Carrion was supportive of discharge and Dr. Gray will see him after CT scan of the lungs performed and smoking cessation was counseled. He no longer has any chest pain and he has oxygen at home. Source: patient Exam Limitations: no limitations Date Seen 09/15/17 Time Seen by Provider: 09:30 Attending Physician Taya Luque MD PCP Judi Zepeda MD Referring Physician Date of Admission Sep 14, 2017 at 20:30 Home Medications & Allergies Home Medications Reviewed patient Home Medication Reconciliation performed by pharmacy medication reconciliations respiratory therapy technician and/or nursing. Patients Allergies have been reviewed. Allergies Allergies Coded Allergies DOROTA Inhibitors (Verified Allergy, Unknown, Angioedema, 05/08/17) budesonide (Verified Allergy, Unknown, 05/08/17) formoterol (Verified Allergy, Unknown, 05/08/17) tetanus toxoid, adsorbed (Verified Allergy, Unknown, 05/08/17) Past Uflfqcy-Dfmydq-Kgjvyz Hx Past Med/Social Hx: Reviewed Nursing Past Med/Soc Hx, Reviewed and Corrections made Patient Social History Marrital Status: Employed/Student: unemployed Alcohol Use: Denies Use Recreational Drug Use: No Smoking Status: Current Everyday Smoker Type Used: Cigarettes Physical Abuse Screen: No Sexual Abuse: No Recent Foreign Travel: No Contact w/other who traveled: No Recent Hopitalizations: Yes (07/31/2017) Recent Infectious Disease Expo: No Immunizations Up To Date Tetanus Booster (TDap): Unknown Pediatric: No Date of Pneumonia Vaccine: Mar 23, 2013 Date of Influenza Vaccine: Jul 31, 2017 Seasonal Allergies Seasonal Allergies: No Past Medical History Surgeries: Abdominal, Cardiac, CABG, Coronary Stent, Tonsillectomy, Vascular Surgery Respiratory: COPD Currently Using CPAP: No Currently Using BIPAP: No Cardiac: Coronary Artery Disease, Deep Vein Thrombosis, Heart Attack, High Cholesterol, Hypertension, Peripheral Vascular Reproductive: No Sexually Transmitted Disease: No HIV/AIDS: No Gastrointestinal: Gastroesophageal Reflux, Ulcer Musculoskeletal: Arthritis Loss of Vision: Denies Hearing Impairment: Denies Psychosocial: Sleep Difficulties, Schizophrenia, Depression History of Blood Disorders: No Adverse Reaction to Blood Ang: No Family History Diabetes mellitus 19 MOTHER FH: heart disease 19 FATHER Heart Disease Review of Systems Constitutional: see HPI, weakness EENTM: no symptoms reported Respiratory: short of breath, wheezing Cardiovascular: chest pain, palpitations Gastrointestinal: no symptoms reported Genitourinary: no symptoms reported Musculoskeletal: no symptoms reported Skin: no symptoms reported Psychiatric/Neurological: No Symptoms Reported All Other Systems Reviewed Negative Unless Noted: Yes Physical Exam Physical Exam Vital Signs Vital Signs - First Documented 09/14/17 09/14/17 19:05 23:00 Temp 98.1 Pulse 93 Resp 18 B/P (MAP) 156/87 (110) Pulse Ox 95 O2 Delivery Nasal Cannula O2 Flow Rate 3.00 FiO2 32 Capillary Refill : Less Than 3 Seconds General Appearance: No Apparent Distress, WD/WN, Chronically ill, Thin Eyes: Bilateral Eye Normal Inspection, Bilateral Eye PERRL HEENT: PERRL/EOMI, Normal ENT Inspection, Pharynx Normal Neck: Full Range of Motion, Normal Inspection, Non Tender, Supple, Carotid Bruit Respiratory: Chest Non Tender, No Accessory Muscle Use, No Respiratory Distress , Decreased Breath Sounds Cardiovascular: Regular Rate, Rhythm, No Edema, No Gallop, No JVD, No Murmur, Normal Peripheral Pulses Gastrointestinal: Normal Bowel Sounds, No Organomegaly, No Pulsatile Mass, Non Tender, Soft Back: Normal Inspection, No CVA Tenderness, No Vertebral Tenderness Extremity: Normal Capillary Refill, Normal Inspection, Normal Range of Motion, Non Tender, No Calf Tenderness, No Pedal Edema Neurologic/Psychiatric: Alert, Oriented x3, No Motor/Sensory Deficits, Normal Mood/Affect Skin: Normal Color, Warm/Dry Lymphatic: No Adenopathy Results Results/Procedures Labs Laboratory Tests 09/14/17 19:12 09/15/17 03:30 Patient resulted labs reviewed. Short Stay Diagnosis Discharge Diagnosis-Short Stay Admission Diagnosis Assessment: Chest pain in an inoperable CAD patient managed by Dr. Carrion Severe COPD oxygen dependent and continued smoker Hypertension Hyperlipidemia Chronic debility Final Discharge Diagnosis Assessment: Chest pain in an inoperable CAD patient managed by Dr. Carrion without elevation in cardiac enzymes since admission Severe COPD oxygen dependent and continued smoker Hypertension Hyperlipidemia Chronic debility Conclusion Plan Plan: Discharge home Prednisone taper as recommended by Dr. Gray Oxygen supplementation 30/[address] Gray of chest Smoking cessation Clinical Quality Measures AMI/AHF: ASA po Prior to arrival: No DVT/VTE Risk/Contraindication: Risk Factor Score Per Nursin RFS Level Per Nursing on Admit: 3=High OUMAR POWERS DO Sep 15, 2017 09:44
[2017-09-15] MEDS ORDERED: NITROGLYCERIN 0.4 MG SL TABS BTL 25'S SL PRN (09:45)
[2017-09-15] MEDS ORDERED: RT-ALBUTEROL SULF 2.5 MG/3 ML PRE-MIX VIAL INH PRN (09:45)
[2017-09-15 10:20] VITALS: BP 136/74
[2017-09-15] MEDS ORDERED: OMEGA 3 (FISH OIL) 1000 MG CAP PO SCH (13:00)
[2017-09-15] MEDS ORDERED: RT-ALBUTEROL SULF 2.5 MG/3 ML PRE-MIX VIAL IH SCH (13:00)
[2017-09-15] MEDS ORDERED: NON-FORMULARY MEDICATION 1 EA EA (Ranolazine (Ranexa) 1,000 MG) PO SCH (21:00)
[2017-09-15] MEDS ORDERED: NON-FORMULARY MEDICATION 1 EA EA (Mirtazapine 15 MG) PO SCH (21:00)
[2017-09-15] MEDS ORDERED: CARVEDILOL 6.25 MG (COREG) TAB PO SCH (21:00)
[2017-09-16] MEDS ORDERED: ARIPIPRAZOLE 30 MG PO SCH ×2 (09:00→09:15)
[2017-09-16] MEDS ORDERED: NON-FORMULARY MEDICATION 1 EA EA (Fluticasone/Vilanterol (Breo Ellipta 100-25 Mcg INH) 1 P INH SCH ×2 (09:00→09:15)
[2017-09-16] MEDS ORDERED: MONTELUKAST 10 MG (SINGULAIR) TAB PO SCH ×2 (09:00→09:15)
[2017-09-16] MEDS ORDERED: CLOPIDOGREL 75 MG (PLAVIX) TABLET PO SCH ×2 (09:00→09:15)
[2017-09-16] MEDS ORDERED: SERTRALINE 100 MG (ZOLOFT) TAB PO SCH ×2 (09:00→09:15)
[2017-09-16] MEDS ORDERED: ISOSORBIDE MONONITRATE 30 MG (IMDUR) TAB PO SCH ×2 (09:00→09:15)
[2017-09-16] MEDS ORDERED: predniSONE 10 MG TAB PO SCH ×2 (09:00→09:15)
[2017-09-16] MEDS ORDERED: ATORVASTATIN 80 MG (LIPITOR) TABLET PO SCH ×2 (09:00→09:15)
== END 2017-09-15 09:43 | disposition home or self-care (01) ==
LOC: EDUNIT# 19:02 → ER 19:04 → UNDOADMOB 20:30 → ICU 20:30 → UNDODISOB 09-15 10:55
PROVIDERS: ADMIT Family Medicine; ATTEND Family Medicine
DX: I25.119 Atherosclerotic heart disease of native coronary artery with unspecified angina pectoris (principal); J44.1 Chronic obstructive pulmonary disease with (acute) exacerbation; Z99.81 Dependence on supplemental oxygen; F17.210 Nicotine dependence, cigarettes, uncomplicated; I10 Essential (primary) hypertension; E78.5 Hyperlipidemia, unspecified; R53.83 Other fatigue; Z88.8 Allergy status to other drugs, medicaments and biological substances; Z88.7 Allergy status to serum and vaccine; Z95.1 Presence of aortocoronary bypass graft; Z95.5 Presence of coronary angioplasty implant and graft; Z86.718 Personal history of other venous thrombosis and embolism; I25.2 Old myocardial infarction; E78.00 Pure hypercholesterolemia, unspecified; I73.9 Peripheral vascular disease, unspecified; K21.9 Gastro-esophageal reflux disease without esophagitis; F20.9 Schizophrenia, unspecified; F32.9 Major depressive disorder, single episode, unspecified; Z79.899 Other long term (current) drug therapy; I65.29 Occlusion and stenosis of unspecified carotid artery
CPT/HCPCS: 36415; 71045; 80053; 80061; 82150; 82550; 82553; 83690; 83735; 83874; 83880; 84484; 85025; 85610; 85730; 93005; 93041; 94640; 94664; 94760; 96374; 96375

== ENCOUNTER → 2017-09-16 | Outpatient (CLI) | payer MEDICARE, MEDICAID ==
[~2017-09-16] MED LIST changes: +FLUT1AER INH; +IOHEXOL 350 MG/ML 100 ML (OMNIPAQUE 350) VIAL IV ONE; +NS 250 ML (IVPB) BAG IV ONE
--- NOTE | 2017-09-16 10:22 | Diagnostic Imaging Report ---
PROCEDURE: CT chest with contrast only. TECHNIQUE: Multiple contiguous axial images were obtained through the chest after administration of intravenous contrast. INDICATION: COPD and wheezing. CT chest obtained with IV contrast bolus. Comparison made to 03/22/2017. FINDINGS: Patient has had previous coronary bypass. Heart is normal in size. There are no enlarged mediastinal or hilar nodes. The aorta is not aneurysmal. There is no pleural or pericardial fluid. Visualized portions of the upper abdomen appear unremarkable. There are no enlarged axillary nodes. Lung parenchymal windows demonstrate a spiculated density in the left lower lobe measuring about 6 mm. This appears similar to the prior study and may represent nodule versus scar. There is also a density in the right upper lobe measuring around 5 mm in diameter, appears similar to the prior study as well. There is no new lesion in either lung. IMPRESSION: Unchanged nodular densities in the right upper lobe and left lower lobe which may represent scarring. These areas are unchanged compared back to 03/28/2015, therefore these are compatible with benign findings. There is no new abnormality elsewhere. Dictated by: Dictated on workstation # [id number]
== END ==
LOC: RAD 08:31
PROVIDERS: ATTEND Nurse Practitioner Family
DX: R91.8 Other nonspecific abnormal finding of lung field (principal); J44.9 Chronic obstructive pulmonary disease, unspecified; J18.9 Pneumonia, unspecified organism; Z72.0 Tobacco use
CPT/HCPCS: 71260

== ENCOUNTER 2017-11-15 13:13 | Emergency (ER) | payer MEDICARE, MEDICAID ==
[~2017-11-15] VITALS: Ht 172.7 cm; Wt 61.7 kg
[~2017-11-15 13:13] MED LIST changes: +HYDR-3812 PO; -IOHEXOL 350 MG/ML 100 ML (OMNIPAQUE 350) VIAL IV ONE; -NS 250 ML (IVPB) BAG IV ONE
[2017-11-15] MEDS ORDERED: morphine INJ 10 MG/ML 1ML (SYR OR VIAL) IVP STA (13:30)
[2017-11-15 13:31] LABS: BASOPHILS % (AUTO) 0 % (0-10); EOSINOPHILS % (AUTO) 1 % (0-10); HEMATOCRIT 35 % (40-54); HEMOGLOBIN 10.9 G/DL (13.3-17.7); LYMPHOCYTES # (AUTO) 1.4 X 10^3 (1.0-4.0); LYMPHOCYTES % (AUTO) 24 % (12-44); MEAN CORPUSCULAR HEMOGLOBIN 31 PG (25-34); MEAN CORPUSCULAR HGB CONC 31 G/DL (32-36); MEAN CORPUSCULAR VOLUME 99 FL (80-99); MEAN PLATELET VOLUME 9.8 FL (7.4-10.4); MONOCYTES # (AUTO) 0.5 X 10^3 (0.0-1.0); MONOCYTES % (AUTO) 9 % (0-12); NEUTROPHILS # (AUTO) 3.9 X 10^3 (1.8-7.8); NEUTROPHILS % (AUTO) 67 % (42-75); PLATELET COUNT 136 10^3/uL (130-400); RED BLOOD COUNT 3.56 10^6/uL (4.35-5.85); RED CELL DISTRIBUTION WIDTH 12.8 % (10.0-14.5); WHITE BLOOD COUNT 5.9 10^3/uL (4.3-11.0)
[2017-11-15] MEDS ORDERED: RT-ALBUTEROL SULF 2.5 MG/3 ML PRE-MIX VIAL INH STA (13:43)
--- NOTE | 2017-11-15 13:44 | Diagnostic Imaging Report ---
CHEST 1 VIEW, AP/PA ONLY Indication: Shortness of air. Comparison: 10/14/2017 Findings: No focal airspace disease in the visualized lungs. Please note that the posterior lower lobes are poorly evaluated by portable radiography. No pleural effusion or pneumothorax. Status post CABG. No cardiomegaly. Impression: No acute cardiopulmonary process by portable radiography. Dictated by: Dictated on workstation # [id number]
[2017-11-15] MEDS ORDERED: RT-ALBUTEROL/IPRATROPIUM 3 ML (DUONEB) VIAL INH ONE (13:45)
[2017-11-15 13:48] LABS: ALANINE AMINOTRANSFERASE 16 U/L (0-55); ALBUMIN 3.8 GM/DL (3.2-4.5); ALKALINE PHOSPHATASE 73 U/L (40-136); BILIRUBIN,TOTAL 0.7 MG/DL (0.1-1.0); BUN/CREATININE RATIO 8; CALCIUM 9.3 MG/DL (8.5-10.1); CARBON DIOXIDE 42 MMOL/L (21-32); CHLORIDE 86 MMOL/L (98-107); CREATININE SERUM 0.74 MG/DL (0.60-1.30); GFR ESTIMATED > 60; GLUCOSE 114 MG/DL (70-105); MAGNESIUM 1.6 MG/DL (1.8-2.4); POTASSIUM 3.8 MMOL/L (3.6-5.0); SODIUM 139 MMOL/L (135-145); TOTAL PROTEIN 5.9 GM/DL (6.4-8.2)
--- NOTE | 2017-11-15 13:52 | ED Chest Pain ---
General Stated Complaint: SOB,CP Source: patient Exam Limitations: no limitations History of Present Illness Date Seen by Provider: Nov 15, 2017 Time Seen by Provider: 13:35 Initial Comments Here with report of chest pain it's left-sided and reported as sharp and tight. Onset 2 hours ago. Arrives short of breath and wheezing. Does have significant cardiac history. Had an admission last month for the same. Denies nausea or vomiting. Reports chronic loss of appetite. Did take full dose aspirin today as well as 3 nitroglycerin and that did not change his symptoms much. 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 NTG SL FIRER KILN: Yes Associated Symptoms: No back pain, No diaphoresis; fatigue; No fever/chills, No nausea/vomiting; shortness of breath; No weakness Allergies and Home Medications Allergies Coded Allergies: DOROTA Inhibitors (Verified Allergy, Unknown, Angioedema, 05/08/17) budesonide (Verified Allergy, Unknown, 05/08/17) formoterol (Verified Allergy, Unknown, 05/08/17) tetanus toxoid, adsorbed (Verified Allergy, Unknown, 05/08/17) Home Medications Albuterol Sulfate 2.5 Mg/3 Ml Vial.neb, 2.5 MG NEB TID, (Reported) Albuterol Sulfate 2.5 Mg/3 Ml Vial.neb, 2.5 MG NEB DAILY PRN for WHEEZING, ( Reported) Aripiprazole 30 Mg Tablet, 30 MG PO DAILY, (Reported) Aspirin 81 Mg Tablet.dr, 81 MG PO DAILY Prescribed by: OUMAR POWERS on 10/15/17 1008 Atorvastatin Calcium 80 Mg Tablet, 80 MG PO DAILY, (Reported) LAST FILLED #30 18 Carvedilol 6.25 Mg Tablet, 6.25 MG PO BID, (Reported) Clopidogrel Bisulfate 75 Mg Tablet, 75 MG PO DAILY, (Reported) LAST FILLED #90 18 Fluticasone/Vilanterol 1 Each Blst.w.dev, 1 PUFF INH DAILY, (Reported) LAST FILLED 3--18 Hydrocodone/Acetaminophen 1 Each Tablet, 1 EACH PO BID Prescribed by: OUMAR POWERS on 10/15/17 1008 Isosorbide Mononitrate 30 Mg Tab.er.24h, 15 MG PO DAILY, (Reported) TAKES 1/2 (30MG) TABLET Mirtazapine 15 Mg Tablet, 15 MG PO HS, (Reported) Montelukast Sodium 10 Mg Tablet, 10 MG PO DAILY, (Reported) LAST FILLED #30 08-18-17 Nitroglycerin 0.4 Mg Tab.subl, 0.4 MG PO UD PRN for CHEST PAIN, (Reported) Barrett 3 Polyunsat Fatty Acids 1,000 Mg Cap, 1,000 MG PO DAILY, (Reported) Prednisone 10 Mg Tab, 10 MG PO DAILY, (Reported) Prednisone 10 Mg Tab.ds.pk, 10 MG PO DAILY Take 6 tabs(60mg)daily,decrease by 1 tab(10MG)daily. Prescribed by: OUMAR POWERS on 10/15/17 100 Prednisone 10 Mg Tab, 40 MG PO DAILY Prescribed by: ANTOINETTE SANDHU on 11/15/17 1602 Ranolazine 1,000 Mg Tab.er.12h, 1,000 MG PO BID, (Reported) LAST FILLED #60 08-18-17 Sertraline HCl 100 Mg Tablet, 200 MG PO DAILY, (Reported) TAKES 2 (100MG) TABLETS Patient Home Medication List Home Medication List Reviewed: Yes Review of Systems Constitutional: see HPI; No chills, No fever EENTM: No Symptoms Reported Respiratory: Orthopnea, Shortness of Air, Wheezing Cardiovascular: Chest Pain; Denies Edema, Denies Irregular Heart Rate Gastrointestinal: No Symptoms Reported Genitourinary: No Symptoms Reported All Other Systems Reviewed Negative Unless Noted: Yes Past Mcxmfcn-Ahugbq-Kdqevb Hx Past Med/Social Hx: Reviewed Nursing Past Med/Soc Hx Patient Social History Alcohol Use: Denies Use Recreational Drug Use: No Smoking Status: Current Everyday Smoker Type Used: Cigarettes 2nd Hand Smoke Exposure: Yes Recent Foreign Travel: No Contact w/Someone Who Travel: No Recent Hopitalizations: Yes (07/31/2017) Immunizations Up To Date Tetanus Booster (TDap): Unknown PED Vaccines UTD: No Date of Pneumonia Vaccine: Mar 23, 2013 Date of Influenza Vaccine: Jul 31, 2017 Seasonal Allergies Seasonal Allergies: No Past Medical History Surgeries: Yes (1 VESSEL CABG, CARDIAC STENTS X 4; LEFT LEG STENT 02/2017) Abdominal, Cardiac, CABG, Coronary Stent, Tonsillectomy, Vascular Surgery Respiratory: Yes (WEARS O2 AT 3L/NC CONTINUOUSLY. CONTINUES TO SMOKE 1 PPD) Pneumonia, Chronic Bronchitis, COPD Currently Using CPAP: No Currently Using BIPAP: No Cardiac: Yes (CAROTID DISEASE; LEFT LEG STENT; CAD WITH 1 VESSEL CABG + 4 CARDIAC STENTS ) Coronary Artery Disease, Deep Vein Thrombosis, Heart Attack, High Cholesterol, Hypertension, Peripheral Vascular Neurological: Yes Reproductive Disorders: No Sexually Transmitted Disease: No HIV/AIDS: No Genitourinary: No Gastrointestinal: Yes Gastroesophageal Reflux, Ulcer Musculoskeletal: Yes Arthritis Endocrine: No HEENT: No Loss of Vision: Denies Hearing Impairment: Denies Cancer: No Psychosocial: Yes Sleep Difficulties, Schizophrenia, Depression Integumentary: No Blood Disorders: No Adverse Reaction/Blood Tranf: No Family Medical History Reviewed Nursing Family Hx Diabetes mellitus 19 MOTHER FH: heart disease 19 FATHER Heart Disease Physical Exam Vital Signs Vital Signs - First Documented 11/15/17 13:14 Temp 98.2 Pulse 80 Resp 30 B/P (MAP) 129/74 (92) Pulse Ox 98 O2 Delivery Nasal Cannula O2 Flow Rate 5.00 Capillary Refill : General Appearance: No Apparent Distress, WD/WN HEENT: PERRL/EOMI, Pharynx Normal Neck: Non Tender, Supple Respiratory: Decreased Breath Sounds, Wheezing Cardiovascular: Regular Rate, Rhythm, No Murmur Gastrointestinal: Non Tender, Soft Extremity: Normal Range of Motion, Non Tender Neurologic/Psychiatric: Alert, Oriented x3 Skin: Normal Color, Warm/Dry Progress/Results/Core Measures Results/Orders Lab Results Laboratory Tests Test 11/15/17 13:24 11/15/17 15:30 Range/Units White Blood Count 5.9 4.3-11.0 10^3/uL Red Blood Count 3.56 L 4.35-5.85 10^6/uL Hemoglobin 10.9 L 13.3-17.7 G/DL Hematocrit 35 L 40-54 % Mean Corpuscular Volume 99 80-99 FL Mean Corpuscular Hemoglobin 31 25-34 PG Mean Corpuscular Hemoglobin Concent 31 L 32-36 G/DL Red Cell Distribution Width 12.8 10.0-14.5 % Platelet Count 136 130-400 10^3/uL Mean Platelet Volume 9.8 7.4-10.4 FL Neutrophils (%) (Auto) 67 42-75 % Lymphocytes (%) (Auto) 24 12-44 % Monocytes (%) (Auto) 9 0-12 % Eosinophils (%) (Auto) 1 0-10 % Basophils (%) (Auto) 0 0-10 % Neutrophils # (Auto) 3.9 1.8-7.8 X 10^3 Lymphocytes # (Auto) 1.4 1.0-4.0 X 10^3 Monocytes # (Auto) 0.5 0.0-1.0 X 10^3 Eosinophils # (Auto) 0.0 0.0-0.3 10^3/uL Basophils # (Auto) 0.0 0.0-0.1 10^3/uL Prothrombin Time 13.0 12.2-14.7 SEC INR Comment 1.0 0.8-1.4 Activated Partial Thromboplast Time 35 24-35 SEC Sodium Level 139 135-145 MMOL/L Potassium Level 3.8 3.6-5.0 MMOL/L Chloride Level 86 L 98-107 MMOL/L Carbon Dioxide Level 42 H 21-32 MMOL/L Anion Gap 11 5-14 MMOL/L Blood Urea Nitrogen 6 L 7-18 MG/DL Creatinine 0.74 0.60-1.30 MG/DL Estimat Glomerular Filtration Rate > 60 BUN/Creatinine Ratio 8 Glucose Level 114 H 70-105 MG/DL Calcium Level 9.3 8.5-10.1 MG/DL Magnesium Level 1.6 L 1.8-2.4 MG/DL Total Bilirubin 0.7 0.1-1.0 MG/DL Aspartate Amino Transf (AST/SGOT) 16 5-34 U/L Alanine Aminotransferase (ALT/SGPT) 16 0-55 U/L Alkaline Phosphatase 73 40-136 U/L Myoglobin 41.6 10.0-92.0 NG/ML Troponin I < 0.30 < 0.30 <0.30 NG/ML B-Type Natriuretic Peptide 48.6 <100.0 PG/ML Total Protein 5.9 L 6.4-8.2 GM/DL Albumin 3.8 3.2-4.5 GM/DL My Orders Orders - ANTOINETTE SANDHU MD Cbc With Automated Diff (11/15/17 13:21) Magnesium (11/15/17 13:21) Chest 1 View, Ap/Pa Only (11/15/17 13:21) Ekg Tracing (11/15/17 13:21) Cardiac Profile 1 (11/15/17 13:21) Comprehensive Metabolic Panel (11/15/17 13:21) Myoglobin Serum (11/15/17 13:21) Protime With Inr (11/15/17 13:21) Partial Thromboplastin Time (11/15/17 13:21) O2 (11/15/17 13:21) Monitor-Rhythm Ecg Trace Only (11/15/17 13:21) Lipid Panel (11/16/17 06:00) Saline Lock/Iv-Start (11/15/17 13:21) BNP (11/15/17 13:21) Morphine Injection (Morphine Injection (11/15/17 13:30) Albuterol/Ipra Inhalation Soln (Duoneb I (11/15/17 13:45) Svn Small Volume Nebulizer (11/15/17 13:43) Svn Small Volume Nebulizer (11/15/17 13:43) Albuterol Pre-Mix Nebs (Rt) (Proventil (11/15/17 13:43) Prednisone Tablet (Deltasone Tablet) (11/15/17 14:30) Ekg Tracing (11/15/17 15:20) Troponin I (11/15/17 15:20) Medications Given in ED Current Medications Medications Dose Ordered Sig/Shira Route Start Time Stop Time Status Last Admin Dose Admin Albuterol/ Ipratropium 3 ml ONCE ONCE INH 11/15/17 13:45 11/15/17 13:47 DC 11/15/17 13:52 3 ML Prednisone 40 mg ONCE ONCE PO 11/15/17 14:30 11/15/17 14:31 DC 11/15/17 14:31 40 MG Vital Signs/I&O 11/15/17 11/15/17 13:14 13:52 Temp 98.2 Pulse 80 Resp 30 B/P (MAP) 129/74 (92) Pulse Ox 98 99 O2 Delivery Nasal Cannula Nasal Cannula O2 Flow Rate 5.00 5.00 Progress Progress Note : Progress Note Seen and evaluated. EMS has establish IV. Patient did receive nitroglycerin prior to arrival and has had a total of 3 doses. This has not changed his pain. Labs, EKG and chest x-ray ordered. Morphine 4 mg IV ordered. DuoNeb and albuterol neb ordered. This did greatly improve his symptoms and patient is chest pain-free afterwards and breathing much better. 1430: Patient remains chest pain-free. We will do recheck troponin and EKG at 1515 as patient would like to go home if possible and this appears to be more a respiratory event than cardiac. 1515: Remains chest pain-free and still would like to go home if possible. Repeat troponin and EKG ordered. Monitor patient. 1604: No acute findings. Patient remains chest pain-free. Discharged home with return precautions. Patient verbalize understanding instructions and agreement with plan. Initial ECG Impression Date: Nov 15, 2017 Initial ECG Impression Time: 13:18 Initial ECG Rate: 79 Initial ECG Rhythm: Normal Sinus Initial ECG Comparisson: Unchanged Comment Sinus rhythm with PVC. No evidence of ST elevation CT. Left anterior fascicular block noted. Left axis deviation. Similar to previous of 10/13/17. Interpreted by me. EKG : EKG Time: 15:24 Rate: 73 Rhythm: Normal Sinus Comment Sinus rhythm with left atrial abnormality. Overall similar in appearance to the EKG earlier. Left anterior fascicular block remains. No evidence of ST elevation CT. Interpreted by me. Diagnostic Imaging Diagonstic Imaging: Xray Plain Films/CT/US/NM/MRI: chest Comments NAME: WINTER PIEDRA MED REC#: [id number] PT STATUS: REG ER : 1955 PHYSICIAN: ANTOINETTE SANDHU MD ADMIT DATE: 11/15/17/ER Signed Date of Exam: 11/15/17 CHEST 1 VIEW, AP/PA ONLY CHEST 1 VIEW, AP/PA ONLY Indication: Shortness of air. Comparison: 10/14/2017 Findings: No focal airspace disease in the visualized lungs. Please note that the posterior lower lobes are poorly evaluated by portable radiography. No pleural effusion or pneumothorax. Status post CABG. No cardiomegaly. Impression: No acute cardiopulmonary process by portable radiography. Dictated by: Dictated on workstation # [id number] Dict: 11/15/17 1341 Trans: 11/15/17 1341 Interpreted by: ARELIS BEAN MD Electronically signed by: ARELIS BEAN MD 11/15/17 1341 Departure Impression Primary Impression: COPD exacerbation Additional Impression: Chest pain Qualified Codes: R07.9 - Chest pain, unspecified Disposition: 01 HOME, SELF-CARE Condition: Improved Departure-Patient Inst. Decision time for Depature: 15:59 Referrals: BRANDON RODAS MD (PCP/Family) Primary Care Physician Patient Instructions: Chest Pain (DC), Chronic Obstructive Pulmonary Disease ( COPD), Including Emphysema Add. Discharge Instructions: You should start your increased prednisone tomorrow by taking 40 mg of your home stock. You will take 40 mg daily for the next 4 days and then return to your 10 mg daily dosing. Follow up with your doctor next week. Return for worse pain, fever, vomiting, weakness, breathing problems or other concerns as needed. Scripts Prednisone (Prednisone) 10 Mg Tab 40 MG PO DAILY, #16 TAB 0 Refills Prov: ANTOINETTE SANDHU MD 11/15/17 ANTOINETTE SANDHU MD Nov 15, 2017 13:51
[2017-11-15 13:55] LABS: MYOGLOBIN SERUM 41.6 NG/ML (10.0-92.0)
[2017-11-15] MEDS ORDERED: predniSONE 20 MG TAB PO ONE (14:30)
[2017-11-15] MEDS ORDERED: PRD10T PO (16:02)
[2017-11-15 16:16] VITALS: BP 130/72
== END 2017-11-15 16:16 | disposition home or self-care (01) ==
LOC: EDUNIT# 13:13 → ER 13:15
DX: J44.1 Chronic obstructive pulmonary disease with (acute) exacerbation (principal); R07.9 Chest pain, unspecified; I25.10 Atherosclerotic heart disease of native coronary artery without angina pectoris; I25.2 Old myocardial infarction; E78.00 Pure hypercholesterolemia, unspecified; I10 Essential (primary) hypertension; K21.9 Gastro-esophageal reflux disease without esophagitis; F20.9 Schizophrenia, unspecified; F32.9 Major depressive disorder, single episode, unspecified; F17.210 Nicotine dependence, cigarettes, uncomplicated; Z87.19 Personal history of other diseases of the digestive system; Z86.718 Personal history of other venous thrombosis and embolism; Z95.1 Presence of aortocoronary bypass graft; Z95.5 Presence of coronary angioplasty implant and graft; Z99.81 Dependence on supplemental oxygen; Z82.49 Family history of ischemic heart disease and other diseases of the circulatory system; Z88.7 Allergy status to serum and vaccine; Z88.8 Allergy status to other drugs, medicaments and biological substances; Z79.82 Long term (current) use of aspirin; Z79.52 Long term (current) use of systemic steroids; Z79.51 Long term (current) use of inhaled steroids; Z90.89 Acquired absence of other organs
CPT/HCPCS: 36415; 71045; 80053; 83735; 83874; 83880; 84484; 85025; 85610; 85730; 93005; 93041; 94640; 96374

== ENCOUNTER → 2018-02-10 | Outpatient (CLI) | payer MEDICARE, MEDICAID ==
[~2018-02-10] MED LIST changes: +AMLO5TAB7 PO; +BUPR-168 PO; -IPRA3AMP IH; +IPRA3AMP31 IH; +MIRT30TA6 PO; +TRAZ-190 PO; -TRAZ100T92 PO
--- NOTE | 2018-02-10 14:36 | Diagnostic Imaging Report ---
PROCEDURE: MRI right joint upper extremity without contrast. TECHNIQUE: Multiplanar, multisequence non contrast-enhanced MRI of the right upper extremity was accomplished. INDICATION: Right shoulder pain for one month. COMPARISON: No prior studies are available for comparison. FINDINGS: There are glenohumeral and acromioclavicular joint degenerative changes. The biceps tendon is in a normal location within the bicipital groove. The subscapularis tendon of the rotator cuff appears to be intact. Moderate intermediate signal is identified within the substance of the supraspinatus and infraspinatus tendons of the rotator cuff consistent with tendinosis. No discrete tear is seen. There is no retraction of the rotator cuff. No fluid is identified within the subacromial subdeltoid bursa. No shoulder joint effusion is seen. Labrum is grossly unremarkable. IMPRESSION: Glenohumeral and acromioclavicular joint degenerative changes as well as rotator cuff tendinopathy. There is no evidence of a rotator cuff tear. Dictated by: Dictated on workstation # [id number]
== END ==
LOC: RAD 11:03
PROVIDERS: ATTEND Nurse Practitioner
DX: M19.011 Primary osteoarthritis, right shoulder (principal); M75.81 Other shoulder lesions, right shoulder
CPT/HCPCS: 73221

== ENCOUNTER 2018-02-14 22:22 | Observation (INO) | payer MEDICARE, MEDICAID ==
[~2018-02-14] VITALS: Ht 172.7 cm; Wt 61.7 kg
[~2018-02-14 22:22] MED LIST changes: -AMLO5TAB7 PO; -BUPR-168 PO; -MIRT30TA6 PO
[2018-02-14 22:33] LABS: BASOPHILS % (AUTO) 0 % (0-10); EOSINOPHILS # (AUTO) 0.1 10^3/uL (0.0-0.3); EOSINOPHILS % (AUTO) 3 % (0-10); HEMATOCRIT 35 % (40-54); HEMOGLOBIN 10.6 G/DL (13.3-17.7); LYMPHOCYTES # (AUTO) 1.5 X 10^3 (1.0-4.0); LYMPHOCYTES % (AUTO) 31 % (12-44); MEAN CORPUSCULAR HEMOGLOBIN 31 PG (25-34); MEAN CORPUSCULAR HGB CONC 31 G/DL (32-36); MEAN CORPUSCULAR VOLUME 101 FL (80-99); MEAN PLATELET VOLUME 9.5 FL (7.4-10.4); MONOCYTES # (AUTO) 0.5 X 10^3 (0.0-1.0); MONOCYTES % (AUTO) 10 % (0-12); NEUTROPHILS # (AUTO) 2.7 X 10^3 (1.8-7.8); NEUTROPHILS % (AUTO) 57 % (42-75); PLATELET COUNT 125 10^3/uL (130-400); RED BLOOD COUNT 3.46 10^6/uL (4.35-5.85); WHITE BLOOD COUNT 4.8 10^3/uL (4.3-11.0)
[2018-02-14 22:46] LABS: INR 0.9 (0.8-1.4)
--- NOTE | 2018-02-14 22:49 | ED Chest Pain ---
General Chief Complaint: Chest Pain Stated Complaint: CHEST PAIN Source: patient Exam Limitations: no limitations History of Present Illness Date Seen by Provider: Feb 14, 2018 Time Seen by Provider: 22:20 Initial Comments Here with report of chest pain that is central and radiating to the left arm that he reports is moderate to severe in intensity and describes as a pressure. Does have history of heart attack. States tonight that he tried to go out on a walk sometimes does. States that he had onset of chest pain after returning home. Onset 2 hours prior to arrival. He did take 3 nitroglycerin at home. EMS was called and they gave 324 mg of aspirin by mouth as well as 100 g of fentanyl which did not resolve the pain much. States that pain is continuing in the same place. Denies nausea or vomiting. 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 SL TRACK SWEEPER: Yes Associated Symptoms: No abdominal pain, No back pain, No diaphoresis, No nausea /vomiting, No shortness of breath, No weakness Allergies and Home Medications Allergies Coded Allergies: DOROTA Inhibitors (Verified Allergy, Unknown, Angioedema, 05/08/17) budesonide (Verified Allergy, Unknown, 05/08/17) formoterol (Verified Allergy, Unknown, 05/08/17) tetanus toxoid, adsorbed (Verified Allergy, Unknown, 05/08/17) Home Medications Albuterol Sulfate 2.5 Mg/3 Ml Vial.neb, 2.5 MG NEB TID, (Reported) Albuterol Sulfate 2.5 Mg/3 Ml Vial.neb, 2.5 MG NEB DAILY PRN for WHEEZING, ( Reported) Aripiprazole 30 Mg Tablet, 30 MG PO DAILY, (Reported) Aspirin 81 Mg Tablet.dr, 81 MG PO DAILY Prescribed by: OUMAR POWERS on 10/15/17 1008 Atorvastatin Calcium 80 Mg Tablet, 80 MG PO DAILY, (Reported) LAST FILLED #30 08-18-17 Carvedilol 6.25 Mg Tablet, 6.25 MG PO BID, (Reported) Clopidogrel Bisulfate 75 Mg Tablet, 75 MG PO DAILY, (Reported) LAST FILLED #90 06-20-17 Fluticasone/Vilanterol 1 Each Blst.w.dev, 1 PUFF INH DAILY, (Reported) LAST FILLED 08-14-17 Hydrocodone/Acetaminophen 1 Each Tablet, 1 EACH PO BID Prescribed by: OUMAR POWERS on 10/15/17 1008 Isosorbide Mononitrate 30 Mg Tab.er.24h, 15 MG PO DAILY, (Reported) TAKES 1/2 (30MG) TABLET Mirtazapine 15 Mg Tablet, 15 MG PO HS, (Reported) Montelukast Sodium 10 Mg Tablet, 10 MG PO DAILY, (Reported) LAST FILLED #30 08-18-17 Nitroglycerin 0.4 Mg Tab.subl, 0.4 MG PO UD PRN for CHEST PAIN, (Reported) Jennings 3 Polyunsat Fatty Acids 1,000 Mg Cap, 1,000 MG PO DAILY, (Reported) Prednisone 10 Mg Tab, 10 MG PO DAILY, (Reported) Prednisone 10 Mg Tab.ds.pk, 10 MG PO DAILY Take 6 tabs(60mg)daily,decrease by 1 tab(10MG)daily. Prescribed by: OUMAR POWERS on 10/15/17 100 Prednisone 10 Mg Tab, 40 MG PO DAILY Prescribed by: ANTOINETTE SANDHU on 11/15/17 1602 Ranolazine 1,000 Mg Tab.er.12h, 1,000 MG PO BID, (Reported) LAST FILLED #60 08-18-17 Sertraline HCl 100 Mg Tablet, 200 MG PO DAILY, (Reported) TAKES 2 (100MG) TABLETS Patient Home Medication List Home Medication List Reviewed: Yes Review of Systems Review of Systems Constitutional: see HPI; No chills, No fever EENTM: No Symptoms Reported Respiratory: No Symptoms Reported Cardiovascular: See HPI, Chest Pain; Denies Edema Gastrointestinal: Denies Abdominal Pain, Denies Nausea, Denies Vomiting Genitourinary: No Symptoms Reported Musculoskeletal: no symptoms reported Skin: no symptoms reported Psychiatric/Neurological: No Symptoms Reported All Other Systems Reviewed Negative Unless Noted: Yes Past Qeashju-Brotuj-Ewupej Hx Past Med/Social Hx: Reviewed Nursing Past Med/Soc Hx Patient Social History Alcohol Use: Denies Use Recreational Drug Use: No Smoking Status: Current Everyday Smoker Type Used: Cigarettes 2nd Hand Smoke Exposure: Yes Recent Foreign Travel: No Contact w/Someone Who Travel: No Recent Hopitalizations: Yes (07/31/2017) Immunizations Up To Date Tetanus Booster (TDap): Unknown PED Vaccines UTD: No Date of Pneumonia Vaccine: Mar 23, 2013 Date of Influenza Vaccine: Jul 31, 2017 Seasonal Allergies Seasonal Allergies: No Past Medical History Surgeries: Yes (1 VESSEL CABG, CARDIAC STENTS X 4; LEFT LEG STENT 02/2017) Abdominal, Cardiac, CABG, Coronary Stent, Tonsillectomy, Vascular Surgery Respiratory: Yes (WEARS O2 AT 3L/NC CONTINUOUSLY. CONTINUES TO SMOKE 1 PPD) Pneumonia, Chronic Bronchitis, COPD Currently Using CPAP: No Currently Using BIPAP: No Cardiac: Yes (CAROTID DISEASE; LEFT LEG STENT; CAD WITH 1 VESSEL CABG + 4 CARDIAC STENTS ) Coronary Artery Disease, Deep Vein Thrombosis, Heart Attack, High Cholesterol, Hypertension, Peripheral Vascular Neurological: Yes Reproductive Disorders: No Sexually Transmitted Disease: No HIV/AIDS: No Genitourinary: No Gastrointestinal: Yes Gastroesophageal Reflux, Ulcer Musculoskeletal: Yes Arthritis Endocrine: No HEENT: No Loss of Vision: Denies Hearing Impairment: Denies Cancer: No Psychosocial: Yes Sleep Difficulties, Schizophrenia, Depression Integumentary: No Blood Disorders: No Adverse Reaction/Blood Tranf: No Family Medical History Reviewed Nursing Family Hx Diabetes mellitus 19 MOTHER FH: heart disease 19 FATHER Heart Disease Physical Exam Vital Signs Capillary Refill : Height, Weight, BMI Height: 5'8.00" Weight: 136lbs. 0.7oz. 61.136810sd; 20.7 BMI Method:Stated General Appearance: WD/WN, Mild Distress HEENT: PERRL/EOMI, Pharynx Normal Neck: Non Tender, Supple Respiratory: Lungs Clear, Normal Breath Sounds Cardiovascular: Regular Rate, Rhythm, No Murmur Gastrointestinal: Non Tender, Soft Extremity: Normal Range of Motion, Non Tender Neurologic/Psychiatric: Alert, Oriented x3 Skin: Normal Color, Warm/Dry Progress/Results/Core Measures Results/Orders Lab Results Laboratory Tests Test 02/14/18 22:20 Range/Units White Blood Count 4.8 4.3-11.0 10^3/uL Red Blood Count 3.46 L 4.35-5.85 10^6/uL Hemoglobin 10.6 L 13.3-17.7 G/DL Hematocrit 35 L 40-54 % Mean Corpuscular Volume 101 H 80-99 FL Mean Corpuscular Hemoglobin 31 25-34 PG Mean Corpuscular Hemoglobin Concent 31 L 32-36 G/DL Red Cell Distribution Width 12.0 10.0-14.5 % Platelet Count 125 L 130-400 10^3/uL Mean Platelet Volume 9.5 7.4-10.4 FL Neutrophils (%) (Auto) 57 42-75 % Lymphocytes (%) (Auto) 31 12-44 % Monocytes (%) (Auto) 10 0-12 % Eosinophils (%) (Auto) 3 0-10 % Basophils (%) (Auto) 0 0-10 % Neutrophils # (Auto) 2.7 1.8-7.8 X 10^3 Lymphocytes # (Auto) 1.5 1.0-4.0 X 10^3 Monocytes # (Auto) 0.5 0.0-1.0 X 10^3 Eosinophils # (Auto) 0.1 0.0-0.3 10^3/uL Basophils # (Auto) 0.0 0.0-0.1 10^3/uL Prothrombin Time 12.0 L 12.2-14.7 SEC INR Comment 0.9 0.8-1.4 Activated Partial Thromboplast Time 37 H 24-35 SEC D-Dimer 0.43 0.00-0.49 UG/ML Sodium Level 144 135-145 MMOL/L Potassium Level 4.8 3.6-5.0 MMOL/L Chloride Level 93 L 98-107 MMOL/L Carbon Dioxide Level 43 H 21-32 MMOL/L Anion Gap 8 5-14 MMOL/L Blood Urea Nitrogen 7 7-18 MG/DL Creatinine 0.87 0.60-1.30 MG/DL Estimat Glomerular Filtration Rate > 60 BUN/Creatinine Ratio 8 Glucose Level 109 H 70-105 MG/DL Calcium Level 9.4 8.5-10.1 MG/DL Corrected Calcium 9.5 8.5-10.1 MG/DL Magnesium Level 2.0 1.8-2.4 MG/DL Total Bilirubin 0.2 0.1-1.0 MG/DL Aspartate Amino Transf (AST/SGOT) 22 5-34 U/L Alanine Aminotransferase (ALT/SGPT) 20 0-55 U/L Alkaline Phosphatase 75 40-136 U/L Myoglobin 34.9 10.0-92.0 NG/ML Troponin I < 0.30 <0.30 NG/ML Total Protein 6.2 L 6.4-8.2 GM/DL Albumin 3.9 3.2-4.5 GM/DL My Orders Orders - ANTOINETTE SANDHU MD Cbc With Automated Diff (02/14/18:) Magnesium (02/14/18) Chest 1 View, Ap/Pa Only (02/14/18) Ekg Tracing (02/14/18:) Cardiac Profile 1 (02/14/18) Comprehensive Metabolic Panel (02/14/18) Myoglobin Serum (02/14/18:) Protime With Inr (02/14/18) Partial Thromboplastin Time (02/14/18) O2 (02/14/18:) Monitor-Rhythm Ecg Trace Only (02/14/18) Lipid Panel (02/15/18 06:00) Saline Lock/Iv-Start (02/14/18:) Fibrin Degradation Products (02/14/18:) Morphine Injection (Morphine Injection (02/15/18 00:49) Progress Progress Note : Progress Note Seen and evaluated. IV by EMS. Labs, EKG and chest x-ray ordered. Monitor patient. 0045: Pain continues but is 4 out of 10. Morphine 4 mg IV. We will admit the patient for continuing evaluation and initial workup is negative. This was discussed with patient and family who agree. Admit, observation status. I did discuss the case with Dr. Luque and she agrees. Consult Dr. Carrion in the morning. Chest pain order set initiated. Initial ECG Impression Date: Feb 14, 2018 Initial ECG Impression Time: 22:24 Initial ECG Rate: 78 Initial ECG Rhythm: Normal Sinus Comment Sinus rhythm with incomplete right bundle branch block and left anterior fascicular block. Left axis deviation. No evidence of ST elevation [place]. Unchanged from 11/15/17. Interpreted by me. Diagnostic Imaging Diagonstic Imaging: Xray Plain Films/CT/US/NM/MRI: chest Comments no acute Reviewed: Reviewed by Me Departure Communication (Admissions) Time/Spoke to Admitting Phy: 00:45 Impression Primary Impression: Chest pain Qualified Codes: R07.9 - Chest pain, unspecified Disposition: ADMITTED INPATIENT Condition: Improved Admissions Decision to Admit Reason: Admit from ER (General) Decision to Admit/Date: Feb 15, 2018 Time/Decision to Admit Time: 00:45 Departure-Patient Inst. Referrals: BRANDON RODAS MD (PCP) Primary Care Physician ANTOINETTE SANDHU MD Feb 14, 2018 22:49
[2018-02-14 22:51] LABS: ALANINE AMINOTRANSFERASE 20 U/L (0-55); ALBUMIN 3.9 GM/DL (3.2-4.5); ALKALINE PHOSPHATASE 75 U/L (40-136); BILIRUBIN,TOTAL 0.2 MG/DL (0.1-1.0); BUN/CREATININE RATIO 8; CALCIUM 9.4 MG/DL (8.5-10.1); CARBON DIOXIDE 43 MMOL/L (21-32); CHLORIDE 93 MMOL/L (98-107); CREATININE SERUM 0.87 MG/DL (0.60-1.30); GFR ESTIMATED > 60; GLUCOSE 109 MG/DL (70-105); POTASSIUM 4.8 MMOL/L (3.6-5.0); SODIUM 144 MMOL/L (135-145); TOTAL PROTEIN 6.2 GM/DL (6.4-8.2)
[2018-02-14 22:57] LABS: MYOGLOBIN SERUM 34.9 NG/ML (10.0-92.0)
[2018-02-15] VITALS (9 sets, daily range): BP systolic 127–146; BP diastolic 67–83
[2018-02-15] MEDS ORDERED: morphine INJ 10 MG/ML 1ML (SYR OR VIAL) IVP STA (00:49)
[2018-02-15] MEDS ORDERED: morphine INJ 10 MG/ML 1ML (SYR OR VIAL) IVP PRN (02:45)
[2018-02-15] MEDS ORDERED: NITROGLYCERIN 0.4 MG SL TABS BTL 25'S SL PRN (02:45)
[2018-02-15] MEDS ORDERED: RT-ALBUTEROL SULF 2.5 MG/3 ML PRE-MIX VIAL INH PRN (03:15)
[2018-02-15] MEDS ORDERED: MONT10TA24 PO (03:50)
[2018-02-15] MEDS ORDERED: SERT100T8 PO (03:50)
[2018-02-15] MEDS ORDERED: MIRT30TA6 PO (03:50)
[2018-02-15] MEDS ORDERED: BUPR-168 PO (03:50)
[2018-02-15] MEDS ORDERED: OMG1KC PO (03:50)
[2018-02-15] MEDS ORDERED: AMLO5TAB7 PO (03:50)
[2018-02-15] MEDS ORDERED: RT-ALBUTEROL SULF 2.5 MG/3 ML PRE-MIX VIAL INH SCH (06:00)
--- NOTE | 2018-02-15 06:02 | Diagnostic Imaging Report ---
INDICATION: Chest pain COMPARISON: 11/25/2017 FINDINGS: Single frontal view of the chest demonstrates normal heart size and pulmonary vascularity. The lungs are well aerated and clear. No large pleural effusion or pneumothorax is seen. The visualized osseous structures show no acute abnormalities. Sternotomy wires are noted. IMPRESSION: 1. No acute cardiopulmonary process. Dictated by: Dictated on workstation # [id number]
[2018-02-15 06:29] LABS: BASOPHILS % (AUTO) 0 % (0-10); EOSINOPHILS # (AUTO) 0.1 10^3/uL (0.0-0.3); EOSINOPHILS % (AUTO) 3 % (0-10); HEMATOCRIT 35 % (40-54); HEMOGLOBIN 10.5 G/DL (13.3-17.7); LYMPHOCYTES # (AUTO) 1.8 X 10^3 (1.0-4.0); LYMPHOCYTES % (AUTO) 39 % (12-44); MEAN CORPUSCULAR HEMOGLOBIN 30 PG (25-34); MEAN CORPUSCULAR HGB CONC 30 G/DL (32-36); MEAN CORPUSCULAR VOLUME 101 FL (80-99); MEAN PLATELET VOLUME 9.8 FL (7.4-10.4); MONOCYTES # (AUTO) 0.5 X 10^3 (0.0-1.0); MONOCYTES % (AUTO) 11 % (0-12); NEUTROPHILS # (AUTO) 2.2 X 10^3 (1.8-7.8); NEUTROPHILS % (AUTO) 48 % (42-75); PLATELET COUNT 116 10^3/uL (130-400); RED BLOOD COUNT 3.45 10^6/uL (4.35-5.85); WHITE BLOOD COUNT 4.7 10^3/uL (4.3-11.0)
[2018-02-15 06:50] LABS: ALANINE AMINOTRANSFERASE 18 U/L (0-55); ALBUMIN 3.8 GM/DL (3.2-4.5); ALKALINE PHOSPHATASE 72 U/L (40-136); BILIRUBIN,TOTAL 0.2 MG/DL (0.1-1.0); BUN/CREATININE RATIO 11; CALCIUM 9.4 MG/DL (8.5-10.1); CARBON DIOXIDE 39 MMOL/L (21-32); CHLORIDE 95 MMOL/L (98-107); CHOLESTEROL 185 MG/DL (< 200); CREATINE KINASE 71 U/L (30-200); CREATININE SERUM 0.79 MG/DL (0.60-1.30); GFR ESTIMATED > 60; GLUCOSE 103 MG/DL (70-105); HDL CHOLESTEROL 62 MG/DL (40-60); POTASSIUM 4.6 MMOL/L (3.6-5.0); SODIUM 142 MMOL/L (135-145); TOTAL PROTEIN 6.1 GM/DL (6.4-8.2); TRIGLYCERIDES 45 MG/DL (<150); VLDL CHOLESTEROL 9 MG/DL (5-40)
[2018-02-15 06:56] LABS: MYOGLOBIN SERUM 30.3 NG/ML (10.0-92.0)
--- NOTE | 2018-02-15 07:35 | Consultation-Cardiology ---
HPI-Cardiology Cardiology Consultation Date of Consultation 02/15/18 Date of Admission Time Seen by Provider: 07:30 Indication: Chest pain HPI 62 years old gentleman with extensive history of coronary artery disease, tobaccoism and COPD. Patient was in his usual state of health, has history of chronic stable angina. Started to have chest pain yesterday after mild exercise , described the pain as severe in the retrosternal area, not radiating, has underlying COPD and persistent wheezing. Nitroglycerin without relief, took aspirin and called the ambulance. Upon arrival to the emergency room he continued to have chest pain after receiving nitroglycerin and fentanyl. This morning he is feeling better. He denied any active chest pain. He denied any palpitation, denied any syncope or near syncopal episodes. Feeling well and asking to go home Home Medications & Allergies Allergies: Coded Allergies: DOROTA Inhibitors (Verified Allergy, Unknown, Angioedema, 05/08/17) budesonide (Verified Allergy, Unknown, 05/08/17) formoterol (Verified Allergy, Unknown, 05/08/17) tetanus toxoid, adsorbed (Verified Allergy, Unknown, 05/08/17) Home Medication List Reviewed: Yes [id number] Hx Patient Social History Marital Status: Employed/Student: unemployed Alcohol Use: Denies Use Recreational Drug Use: No Smoking Status: Current Everyday Smoker Former smoker/When Quit: Aug 21, 2014 Type Used: Cigarettes 2nd Hand Smoke Exposure: Yes Recent Foreign Travel: No Recent Infectious Disease Expo: No Recent Hopitalizations: Yes (07/31/2017) Physical Abuse Screen: No Sexual Abuse: No Immunizations Up To Date Tetanus Booster (TDap): Unknown Date of Pneumonia Vaccine: Mar 23, 2013 Date of Influenza Vaccine: Jul 31, 2017 Past Medical History Past medical history as described below Family Medical History Significant Family History: Heart Disease Family History: Diabetes mellitus 19 MOTHER FH: heart disease 19 FATHER Review of Systems Constitutional: see HPI, weakness EENTM: see HPI, no symptoms reported Respiratory: see HPI, cough, dyspnea on exertion, short of breath, wheezing Cardiovascular: see HPI, chest pain, edema Gastrointestinal: no symptoms reported, see HPI Genitourinary: no symptoms reported, see HPI Musculoskeletal: no symptoms reported, see HPI Skin: no symptoms reported, see HPI Psychiatric/Neurological: No Symptoms Reported, See HPI Reviewed Test Results Reviewed Test Results Lab Laboratory Tests Test 02/14/18 22:20 9/9/18 06:20 Range/Units White Blood Count 4.8 4.7 4.3-11.0 10^3/uL Red Blood Count 3.46 L 3.45 L 4.35-5.85 10^6/uL Hemoglobin 10.6 L 10.5 L 13.3-17.7 G/DL Hematocrit 35 L 35 L 40-54 % Mean Corpuscular Volume 101 H 101 H 80-99 FL Mean Corpuscular Hemoglobin 31 30 25-34 PG Mean Corpuscular Hemoglobin Concent 31 L 30 L 32-36 G/DL Red Cell Distribution Width 12.0 12.0 10.0-14.5 % Platelet Count 125 L 116 L 130-400 10^3/uL Mean Platelet Volume 9.5 9.8 7.4-10.4 FL Neutrophils (%) (Auto) 57 48 42-75 % Lymphocytes (%) (Auto) 31 39 12-44 % Monocytes (%) (Auto) 10 11 0-12 % Eosinophils (%) (Auto) 3 3 0-10 % Basophils (%) (Auto) 0 0 0-10 % Neutrophils # (Auto) 2.7 2.2 1.8-7.8 X 10^3 Lymphocytes # (Auto) 1.5 1.8 1.0-4.0 X 10^3 Monocytes # (Auto) 0.5 0.5 0.0-1.0 X 10^3 Eosinophils # (Auto) 0.1 0.1 0.0-0.3 10^3/uL Basophils # (Auto) 0.0 0.0 0.0-0.1 10^3/uL Prothrombin Time 12.0 L 12.2-14.7 SEC INR Comment 0.9 0.8-1.4 Activated Partial Thromboplast Time 37 H 24-35 SEC D-Dimer 0.43 0.00-0.49 UG/ML Sodium Level 144 142 135-145 MMOL/L Potassium Level 4.8 4.6 3.6-5.0 MMOL/L Chloride Level 93 L 95 L 98-107 MMOL/L Carbon Dioxide Level 43 H 39 H 21-32 MMOL/L Anion Gap 8 8 5-14 MMOL/L Blood Urea Nitrogen 7 9 7-18 MG/DL Creatinine 0.87 0.79 0.60-1.30 MG/DL Estimat Glomerular Filtration Rate > 60 > 60 BUN/Creatinine Ratio 8 11 Glucose Level 109 H 103 70-105 MG/DL Calcium Level 9.4 9.4 8.5-10.1 MG/DL Corrected Calcium 9.5 9.6 8.5-10.1 MG/DL Magnesium Level 2.0 1.8-2.4 MG/DL Total Bilirubin 0.2 0.2 0.1-1.0 MG/DL Aspartate Amino Transf (AST/SGOT) 22 19 5-34 U/L Alanine Aminotransferase (ALT/SGPT) 20 18 0-55 U/L Alkaline Phosphatase 75 72 40-136 U/L Myoglobin 34.9 30.3 10.0-92.0 NG/ML Troponin I < 0.30 < 0.30 <0.30 NG/ML Total Protein 6.2 L 6.1 L 6.4-8.2 GM/DL Albumin 3.9 3.8 3.2-4.5 GM/DL Total Creatine Kinase 71 30-200 U/L Triglycerides Level 45 <150 MG/DL Cholesterol Level 185 < 200 MG/DL LDL Cholesterol Direct 102 1-129 MG/DL VLDL Cholesterol 9 5-40 MG/DL HDL Cholesterol 62 H 40-60 MG/DL Physical Exam Vital Signs Vital Signs - First Documented 02/15/18 03:06 FiO2 36 Capillary Refill : Less Than 3 Seconds Height, Weight, BMI Height: 5'8.00" Weight: 136lbs. 0.7oz. 61.633376fe; 20.7 BMI Method:Stated General Appearance: No Apparent Distress, WD/WN Eyes: Bilateral Eye Normal Inspection, Bilateral Eye PERRL, Bilateral Eye EOMI HEENT: PERRL/EOMI, TMs Normal, Normal ENT Inspection, Pharynx Normal Neck: Full Range of Motion, Normal Inspection, Non Tender, Supple, Carotid Bruit Respiratory: Chest Non Tender, No Accessory Muscle Use, No Respiratory Distress , Crackles, Decreased Breath Sounds, Wheezing Cardiovascular: Regular Rate, Rhythm, No Edema, No Gallop, No JVD, Normal Peripheral Pulses, Systolic Murmur Gastrointestinal: Normal Bowel Sounds, No Organomegaly, No Pulsatile Mass, Non Tender, Soft Back: Normal Inspection, No CVA Tenderness, No Vertebral Tenderness Extremity: Normal Capillary Refill, Normal Inspection, Normal Range of Motion, Non Tender, No Calf Tenderness, No Pedal Edema Neurologic/Psychiatric: Alert, Oriented x3, No Motor/Sensory Deficits, Normal Mood/Affect Skin: Normal Color, Warm/Dry Lymphatic: No Adenopathy A/P-Cardiology Admission Diagnosis Unstable angina Shortness of breath Coronary artery disease Hypertension Assessment/Plan Unstable angina, history of chronic stable angina, EKG showed poor R-wave progression in the anterior leads with no acute changes, cardiac enzymes were negative. Patient is known to have total occlusion of the LAD at its midportion. We discussed his management plan, visit with the patient regarding his chest pain, expressed that he has been doing much better at this time. I recommended conservative management. If he continued to have recurrent episodes of chest pain consider cardiac catheterization. Shortness of breath, history of COPD, still having active wheezing. Educated on smoking cessation. Coronary artery disease, last cardiac catheterization was done in September 2014 showing total occlusion of the LAD at its midportion with occluded vein graft to the LAD, patent stent in the proximal LAD to the diagonal artery, mild disease in the circumflex and right coronary artery, prominent left ventricle with EF 45 percent, continue with conservative management, planning for follow- up as an outpatient History of Congestive heart failure, chronic compensated left ventricular systolic dysfunction, ischemic cardiomyopathy, last echocardiogram was done in May 2017 showed improvement in the left ventricular function with ejection fraction 55-65 percent. Pulmonary hypertension with PA pressure of 45 mmHg. No Congestive heart failure at this time Hypertension, controlled, continue to monitor BP/HR. Hyperlipidemia, controlled. Continue to monitor lipids as outpatient. Chronic tobacco use, still continuing to smoke, educated about smoking cessation Carotid stenosis, [facility] by [facility] Peripheral arterial disease, followed by [facility] Anxiety. From cardiology standpoint okay for discharge, follow-up as an outpatient Clinical Quality Measures AMI/AHF: ASA po Prior to arrival: Yes DVT/VTE Risk/Contraindication: Risk Factor Score Per Nursin RFS Level Per Nursing on Admit: 3=High JOSHUA CASTILLO MD Feb 15, 2018 07:35
[2018-02-15] MEDS ORDERED: RT-ADVAIR HFA 115/21 MCG PER PUFF IH SCH (08:00)
[2018-02-15] MEDS ORDERED: ASPIRIN E.C. 81 MG (ECOTRIN) TAB PO SCH (09:00)
--- NOTE | 2018-02-15 09:42 | Discharge Inst-Simple/Standard ---
Discharge Inst-Standard Patient Instructions/Follow Up Plan of Care/Instructions/FU: Please continue to take your medications as written. Please follow up with Dr Zepeda in the next week and with Dr Carrion in the next 2 weeks. Activity as Tolerated: Yes Discharge Diet: Cardiac Diet Return to The Hospital For: Chest pain, shortness of breath, diaphoresis, palpitations, if you feel you are getting worse. JUAREZ TOLENTINO MD Feb 15, 2018 9:42 am
--- NOTE | 2018-02-15 09:47 | Short Stay Summary-Hospitalist ---
History of Present Illness HPI/Chief Complaint Pt is a 62yoCm with a PMH of CAD s/p CABG with subsequent bypass stenting who presented to the ER with chief complaint of chest pain. He states he went for a walk and then shortly after his walk around 730pm last night his chest pain started. He describe dit as sharp and on the left side of his chest radiating to his left arm. He took 3 nitro without relief so decided to seek evaluation in the ER. He has had similar pain in the past but denies any recently. He follows regularly with Dr Carrion. He denies any pain today and states his symptoms resolved completely just before admission. He is requesting discharge home. Source: patient Date Seen 02/15/18 Time Seen by Provider: 09:47 Attending Physician Juarez Luque MD PCP Judi Zepeda MD Referring Physician Date of Admission Feb 15, 2018 at 00:50 Home Medications & Allergies Home Medications Reviewed patient Home Medication Reconciliation performed by pharmacy medication reconciliations polysomnographic technician and/or nursing. Patients Allergies have been reviewed. Allergies Allergies Coded Allergies budesonide (Verified Allergy, Severe, angioedema, 02/15/18) formoterol (Verified Allergy, Severe, angioedema, 02/15/18) tetanus toxoid, adsorbed (Verified Allergy, Mild, hives, 02/15/18) DOROTA Inhibitors (Verified Allergy, Unknown, Angioedema, 05/08/17) Past [id number]-[id number] Hx Past Med/Social Hx: Reviewed Nursing Past Med/Soc Hx Patient Social History Marrital Status: Employed/Student: unemployed Alcohol Use: Denies Use Recreational Drug Use: No Smoking Status: Current Everyday Smoker Type Used: Cigarettes 2nd Hand Smoke Exposure: Yes Physical Abuse Screen: No Sexual Abuse: No Recent Foreign Travel: No Contact w/other who traveled: No Recent Hopitalizations: Yes (07/31/2017) Recent Infectious Disease Expo: No Immunizations Up To Date Tetanus Booster (TDap): Unknown Pediatric: No Date of Pneumonia Vaccine: Mar 23, 2013 Date of Influenza Vaccine: Jul 31, 2017 Seasonal Allergies Seasonal Allergies: No Past Medical History Surgeries: Abdominal, Cardiac, CABG, Coronary Stent, Tonsillectomy, Vascular Surgery Respiratory: COPD Currently Using CPAP: No Currently Using BIPAP: No Cardiac: Coronary Artery Disease, Deep Vein Thrombosis, Heart Attack, High Cholesterol, Hypertension, Peripheral Vascular Reproductive: No Sexually Transmitted Disease: No HIV/AIDS: No Gastrointestinal: Gastroesophageal Reflux, Ulcer Musculoskeletal: Arthritis Loss of Vision: Denies Hearing Impairment: Denies Psychosocial: Sleep Difficulties, Schizophrenia, Depression History of Blood Disorders: No Adverse Reaction to Blood Ang: No Family History Reviewed Nursing Family Hx Diabetes mellitus 19 MOTHER FH: heart disease 19 FATHER Heart Disease, Diabetes Review of Systems Constitutional: No chills, No fever EENTM: No blurred vision, No double vision, No nose congestion, No throat pain Respiratory: No cough, No dyspnea on exertion, No short of breath Cardiovascular: chest pain; No edema; Hx of Intervention; No palpitations; vascular heart diseas Gastrointestinal: No abdominal pain, No constipation, No diarrhea, No nausea, No vomiting Genitourinary: No dysuria, No frequency Musculoskeletal: No joint pain, No muscle pain Skin: No lesions, No rash Psychiatric/Neurological: Denies Headache, Denies Numbness, Denies Tingling Physical Exam Physical Exam Vital Signs Vital Signs - First Documented 02/15/18 03:06 FiO2 36 Capillary Refill : NONELess Than 3 Seconds Height, Weight, BMI Height: 5'8.00" Weight: 136lbs. 0.7oz. 61.465888eb; 20.7 BMI Method:Stated General Appearance: No Apparent Distress, WD/WN HEENT: PERRL/EOMI, Moist Mucous Membranes Neck: Non Tender, Supple Respiratory: Lungs Clear, No Respiratory Distress Cardiovascular: Regular Rate, Rhythm, No Murmur Gastrointestinal: Normal Bowel Sounds, Non Tender, Soft Extremity: Normal Capillary Refill, No Calf Tenderness Neurologic/Psychiatric: Alert, Oriented x3, Normal Mood/Affect Skin: Normal Color, Warm/Dry Results Results/Procedures Labs Laboratory Tests 02/14/18 22:20 02/15/18 06:20 Patient resulted labs reviewed. Imaging: Reviewed Imaging Report Short Stay Diagnosis Discharge Diagnosis-Short Stay Admission Diagnosis Chest Pain Final Discharge Diagnosis Angina Conclusion Plan Angina Cardiology consulted, appreciate recs Pain resolved and troponin negative x2 Plan to DC home with close follow up with PCP and Cardiology Advised to return for worsening symptoms Clinical Quality Measures AMI/AHF: ASA po Prior to arrival: Yes DVT/VTE Risk/Contraindication: Risk Factor Score Per Nursin RFS Level Per Nursing on Admit: 3=High JUAREZ LUQUE MD Feb 15, 2018 9:47 am
== END 2018-02-15 09:47 | disposition home or self-care (01) ==
LOC: EDUNIT# 22:22 → ER 22:24 → 4TH 22:25 → UNDOADMOB 02-15 00:50 → 4TH 02-15 00:50 → UNDODISOB 02-15 10:55
PROVIDERS: ADMIT Family Medicine; ATTEND Family Medicine
DX: I25.700 Atherosclerosis of coronary artery bypass graft(s), unspecified, with unstable angina pectoris (principal); Z95.1 Presence of aortocoronary bypass graft; Z95.5 Presence of coronary angioplasty implant and graft; J44.9 Chronic obstructive pulmonary disease, unspecified; Z86.718 Personal history of other venous thrombosis and embolism; I25.2 Old myocardial infarction; E78.00 Pure hypercholesterolemia, unspecified; I11.0 Hypertensive heart disease with heart failure; I73.9 Peripheral vascular disease, unspecified; K21.9 Gastro-esophageal reflux disease without esophagitis; F32.9 Major depressive disorder, single episode, unspecified; F20.9 Schizophrenia, unspecified; F17.210 Nicotine dependence, cigarettes, uncomplicated; I50.22 Chronic systolic (congestive) heart failure; I25.5 Ischemic cardiomyopathy; I27.20 Pulmonary hypertension, unspecified; E78.5 Hyperlipidemia, unspecified; I65.29 Occlusion and stenosis of unspecified carotid artery; F41.9 Anxiety disorder, unspecified; Z79.82 Long term (current) use of aspirin; Z79.899 Other long term (current) drug therapy
CPT/HCPCS: 36415; 71045; 80053; 80061; 82550; 83735; 83874; 84484; 85025; 85379; 85610; 85730; 93005; 93041; 94640; 94760; 96374; G0378

== ENCOUNTER 2018-03-18 06:52 | Day surgery (SDC) | payer MEDICARE, MEDICAID ==
[2018-03-18] VITALS (10 sets, daily range): BP systolic 114–152; BP diastolic 63–89
[~2018-03-18] VITALS: Ht 172.7 cm; Wt 72.6 kg
[~2018-03-18 06:52] MED LIST changes: +AMLO5TAB7 PO; +BUPR-168 PO; +HEParin (CATH LAB) 2,000 ML IV ONE; +LIDOCAINE 1% INJ 20 ML 20 ML VIAL ONE; +MIRT30TA6 PO; +NS IV 1000 ML 1,000 ML ONE
[2018-03-18] MEDS: NS IV 1000 ML 1,000 ML IV SCH ×2 (07:02→09:27)
[2018-03-18 07:20] LABS: HEMOGLOBIN 11.7 G/DL (13.3-17.7); MEAN PLATELET VOLUME 9.6 FL (7.4-10.4); RED BLOOD COUNT 3.8 10^6/uL (4.35-5.85); RED CELL DISTRIBUTION WIDTH 12.4 % (10.0-14.5); WHITE BLOOD COUNT 5.4 10^3/uL (4.3-11.0)
[2018-03-18 07:28] LABS: BILIRUBIN,URINE NEGATIVE (NEGATIVE); CLARITY,URINE CLEAR; COLOR,URINE YELLOW; GLUCOSE, URINE (UA) NEGATIVE (NEGATIVE); KETONES,URINE NEGATIVE (NEGATIVE); LEUKOCYTE ESTERASE ,URINE NEGATIVE (NEGATIVE); NITRITE,URINE NEGATIVE (NEGATIVE); PH,URINE 7 (5-9); PROTEIN,URINE NEGATIVE (NEGATIVE); UROBILINOGEN,URINE NORMAL (NORMAL)
[2018-03-18 07:35] LABS: INR 0.9 (0.8-1.4); PROTHROMBIN TIME PATIENT 11.8 SEC (12.2-14.7)
[2018-03-18] MEDS ORDERED: ASPI-983 PO (07:37)
[2018-03-18] MEDS ORDERED: CLOP75TA69 PO (07:37)
[2018-03-18] MEDS ORDERED: RANO10003 PO (07:37)
[2018-03-18] MEDS ORDERED: SERT100T PO (07:37)
[2018-03-18] MEDS ORDERED: RT-ALBUINH IH (07:37)
[2018-03-18] MEDS ORDERED: MONT10TA21 PO (07:37)
[2018-03-18] MEDS ORDERED: ARPZ30T PO (07:37)
[2018-03-18] MEDS ORDERED: ATOR80TA76 PO (07:37)
[2018-03-18] MEDS ORDERED: FLUT1DIS26 IH (07:37)
[2018-03-18] MEDS ORDERED: MIDAZOLAM 5 MG/5 ML (VERSED) VIAL ONE (07:40)
[2018-03-18] MEDS ORDERED: fentaNYL INJECTION 100 MCG/2 ML AMP ONE (07:40)
[2018-03-18 07:41] LABS: ALANINE AMINOTRANSFERASE 24 U/L (0-55); ALKALINE PHOSPHATASE 93 U/L (40-136); BILIRUBIN,TOTAL 0.2 MG/DL (0.1-1.0); BUN/CREATININE RATIO 15; CALCIUM 9.6 MG/DL (8.5-10.1); CARBON DIOXIDE 39 MMOL/L (21-32); CHLORIDE 92 MMOL/L (98-107); CHOLESTEROL 191 MG/DL (< 200); CREATININE SERUM 0.82 MG/DL (0.60-1.30); GFR ESTIMATED > 60; GLUCOSE 101 MG/DL (70-105); HDL CHOLESTEROL 79 MG/DL (40-60); POTASSIUM 4.2 MMOL/L (3.6-5.0); SODIUM 140 MMOL/L (135-145); TOTAL PROTEIN 6.9 GM/DL (6.4-8.2); TRIGLYCERIDES 55 MG/DL (<150); VLDL CHOLESTEROL 11 MG/DL (5-40)
[2018-03-18] MEDS ORDERED: FLU QUADRIvalent (5+ YOA) 2018-2019 (AFLURIA) 0.5 ML IM ONE (07:45)
[2018-03-18 07:47] LABS: AMORPHOUS SEDIMENT,UR RARE AMOR PHOSPHATE /LPF; BACTERIA,URINE NEGATIVE /HPF; WBC,URINE RARE /HPF
--- NOTE | 2018-03-18 07:58 | Cardiac Procedure Note-CS/ASA ---
Pre-Procedure Note Pre-Op Procedure Note H&P Reviewed The H&P was reviewed, patient examined and no changes noted. Date H&P Reviewed: Mar 18, 2018 Time H&P Reviewed: 07:57 Conscious Sedation Pre-Proced Time 07:57 ASA Score 3 For ASA 3 and 4: Consider anesthesia and medical clearance. Also, for patients with a history of failed moderate sedation consider anesthesia. Airway Lungs Heart ASA score ASA 1: a normal healthy patient ASA 2: a patient with a mild systemic disease (mid diabetes, controlled hypertension, obesity x ASA 3: a patient with a severe systemic disease that limits activity (angina , COPD, prior Myocardial infarction) ASA 4: a patient with an incapacitating disease that is a constant threat to life (CHF, renal failure) ASA 5: a moribund patient not expected to survive 24 hrs. (ruptured aneurysm) ASA 6: a declared brain patient whose organs are being harvested. For emergent operations, add the letter E after the classification Mallampati Classification Grade 3 Sedation Plan Analgesia, Amnesia, Plan communicated to team members, Discussed options with patient/fam, Discussed risks with patient/fam The patient is an appropriate candidate to undergo the planned procedure, sedation, and anesthesia. The patient immediately re-assessed prior to indication. JOSHUA CASTILLO MD Mar 18, 2018 07:57
--- NOTE | 2018-03-18 08:10 | Diagnostic Imaging Report ---
INDICATION: Chest pain, history of coronary artery disease, hypertension.. TECHNIQUE: Single view chest 7:06 AM. CORRELATION STUDY: 02/14/2018 FINDINGS: Heart size, mediastinum and vascularity overall within normal limits. The patient is post sternotomy, apparent coronary artery bypass. Slightly asymmetric elevated right diaphragm is present. Lung davis overall relatively clear without significant infiltrate. IMPRESSION: 1. Negative for acute abnormality. Poststernotomy changes. Dictated by: Dictated on workstation # [id number]
[2018-03-18] MEDS ORDERED: NS IV 1000 ML 1,000 ML IV SCH (08:37)
--- NOTE | 2018-03-18 08:39 | Discharge Inst-Post CATH ---
Discharge Inst-CATH Post Cardiac Cath D/C Inst Follow Up/Plan Appointment with Dr. Carrion's office in 4 weeks CARDIAC CATH DISCHARGE INSTRUCTIONS *Hold Metformin for 48 hours post heart cath. ACTIVITY * Go Home directly and rest. * Limit activity of the leg (or wrist if it was used) for 7 days including aerobics, swimming, jogging, bicycling, etc. * Restrict stair-climbing for 7 days if possible, if not, climb up with your non -cath leg, then bring together on the same step. * Avoid lifting, pushing, pulling or excessive movement of the affected extremity for 7 days. * Customary sexual activity may be resumed after 2 days-use caution not to use a position that strains or causes pain to the affected extremity. * No driving for 24 hours. * NO SMOKING. * Avoid straining for bowel movements for 7 days. * Gentle walking on level ground is allowed. * Returning to work will depend on the type of procedure and the results. Your doctor will discuss this with you. CALL YOUR DOCTOR FOR ANY OF THE FOLLOWING: *If bleeding from the puncture site occurs- Apply gentle pressure to site with clean cloth and call your doctor or EMS. * If a knot or lump forms under the skin, increases in size, or causes pain. * If bruising appears to be worsening or moving further down your leg instead of disappearing. * Temperature above 101 F. CARE OF YOUR GROIN INCISION; * Bruising or purple discoloration of the skin near the puncture site is common. * You may shower only, no bathtub bathing for 5 days. Be careful to avoid slipping as your leg may feel stiff. * If a closure device was used on your femoral artery, please see the attached guide regarding care of the device and your leg. * Leave the dressing on, until removed by office staff. CARE OF YOUR WRIST INCISION; * Bruising or purple discoloration of the skin near the puncture site is common. * You may shower. * DO NOT submerge wrist. * Leave dressing on, until removed by office staff.. JOSHUA CARRION MD Mar 18, 2018 08:39
--- NOTE | 2018-03-18 08:43 | Cardiac Cath Report ---
Cardiac Cath Report Physician (s)/Rehab Director (s) Physician JOSHUA CASTILLO MD Pre-Procedure Diagnosis Pre-Procedure Diagnosis: Chest pain, coronary artery disease Post-Procedure Note Procedure Start Date: Mar 18, 2018 Name of Procedure: Left heart catheterization Vein graft angiogram Findings/Procedure Note PROCEDURE NOTE: After explaining the procedure to the patient, all pros and cons were explained , all questions were answered. The patient signed the consent and then he was placed on the cardiac catheterization laboratory. Groin was prepped SL fashion local anesthesia was used. Sheath placed in the right femoral artery. Thomas right and left catheter were used to access the coronary system. Thomas right was used to evaluate the vein graft. Pigtail was used to access the left ventricular cavity. Left ventriculogram was done At the end of the procedure the sheath was removed. Closure device was used FINDINGS: Hemodynamics LV 113/21, end-diastolic pressure of 21 Aorta 120/67 mean of 88 ANATOMY: Left Main is free of obstructive disease Left Anterior Descending has a patent stent proximally, occluded at the midportion after the first diagonal branch, no collaterals to the artery, the vein graft to the LAD is occluded Left Circumflex is dominant with mild disease nonobstructive disease Right Coronory Artery has mild disease nonobstructive disease Vein graft angiogram has multiple stents, totally occluded. LV Gram was done, the apex is akinetic, systolic function is preserved estimated ejection fraction 45-50 percent CONCLUSION: 1. Total occlusion of the mid LAD and the vein graft to the LAD 2. Patent stent in the proximal LAD that is providing good flow to the first diagonal branch 3. Mild disease in the circumflex and right coronary artery 4. Apical akinesia, good systolic function overall, ejection fraction 45-50 percent DISCUSSION AND RECOMMENDATION: Continue to maximize medical therapy Anesthesia Type: Conscious Sedation Estimated blood loss (mL): 15 ml Contrast Amount: 52 ml Total Radiation Dose: 233 mGy Post-Procedure Diagnosis Post-operative diagnosis: Chest pain, unstable angina Coronary artery disease Hypertension Hyperlipidemia JOSHUA CASTILLO MD Mar 18, 2018 08:43
[2018-03-18] MEDS ORDERED: PATIENT MAY USE OWN MEDS, ALL PO SCH (08:45)
== END 2018-03-18 13:27 | disposition home or self-care (01) ==
LOC: CATH 06:52
PROVIDERS: ATTEND Internal Medicine Cardiovascular Disease
DX: I25.110 Atherosclerotic heart disease of native coronary artery with unstable angina pectoris (principal); I25.82 Chronic total occlusion of coronary artery; J44.9 Chronic obstructive pulmonary disease, unspecified; N28.9 Disorder of kidney and ureter, unspecified; I10 Essential (primary) hypertension; E78.5 Hyperlipidemia, unspecified; I65.23 Occlusion and stenosis of bilateral carotid arteries; I08.1 Rheumatic disorders of both mitral and tricuspid valves; Z95.5 Presence of coronary angioplasty implant and graft; Z95.820 Peripheral vascular angioplasty status with implants and grafts; Z87.891 Personal history of nicotine dependence; Z99.81 Dependence on supplemental oxygen
CPT/HCPCS: 36415; 71045; 80053; 80061; 81000; 85027; 85610; 85730; 87081; 93005; 93459

== ENCOUNTER 2018-04-25 13:44 | Emergency (ER) | payer MEDICARE, MEDICAID ==
[~2018-04-25] VITALS: Ht 172.7 cm; Wt 73.5 kg
[~2018-04-25 13:44] MED LIST changes: +CLOP75TA69 PO; -HEParin (CATH LAB) 2,000 ML IV ONE; -LIDOCAINE 1% INJ 20 ML 20 ML VIAL ONE; +MONT10TA21 PO; -NS IV 1000 ML 1,000 ML ONE; +SERT100T PO
[2018-04-25] MEDS ORDERED: KETOROLAC 30 MG/ML VIAL IM STA (13:56)
[2018-04-25] MEDS ORDERED: RT-ALBUTEROL/IPRATROPIUM 3 ML (DUONEB) VIAL INH ONE (14:00)
--- NOTE | 2018-04-25 14:22 | Diagnostic Imaging Report ---
EXAMINATION: Right foot, 3 views. COMPARISON: None. HISTORY: 52-year-old male, right foot pain and swelling. No known injury. FINDINGS: There are vascular calcifications. There is no identified ankle joint effusion. There is no identified radiopaque foreign body. There is no acute fracture. There is no identified abnormal bone alignment. There is no cortical or aggressive bone destruction. There is no periosteal reaction. Joint spaces appear well preserved. IMPRESSION: 1. No identified acute bony abnormality of the right foot. Dictated by: Dictated on workstation # [id number]
[2018-04-25] MEDS ORDERED: predniSONE 20 MG TAB PO ONE (14:45)
--- NOTE | 2018-04-25 14:59 | ED Lower Extremity ---
General Chief Complaint: Lower Extremity Stated Complaint: RIGHT FOOT PAIN/SWELLING Nursing Triage Note: ARRIVED VIA AMB TO ROOM 10 WITH COMPLAINTS OF RIGHT FOOT PAIN ET SWELLING X2 DAYS. DENIES INJURY. Nursing Sepsis Screen: No Definite Risk Source: patient Exam Limitations: no limitations History of Present Illness Date Seen by Provider: Apr 25, 2018 Time Seen by Provider: 13:51 Initial Comments Here with complaint of right foot pain and swelling over the last couple of days. Unsure of why. Denies recent injury. Is on blood thinners due to cardiac problems. Denies fever or chills. Onset: other (2-3 days) Severity: mild Pain/Injury Location: right foot Method of Injury: unknown Modifying Factors: Improves With Immobilization; Worse With Movement Allergies and Home Medications Allergies Coded Allergies: budesonide (Verified Allergy, Severe, angioedema, 02/15/18) formoterol (Verified Allergy, Severe, angioedema, 02/15/18) tetanus toxoid, adsorbed (Verified Allergy, Mild, hives, 02/15/18) DOROTA Inhibitors (Verified Allergy, Unknown, Angioedema, 05/08/17) Home Medications Albuterol Sulfate 2.5 Mg/3 Ml Vial.neb, 2.5 MG NEB TID, (Reported) Albuterol Sulfate 1 Puff Puff, 2 PUFF IH PRN PRN for SHORTNESS OF BREATH, ( Reported) 1 PUFF = 90 MCG Amlodipine Besylate 5 Mg Tablet, 5 MG PO DAILY, (Reported) Aripiprazole 30 Mg Tablet, 30 MG PO DAILY, (Reported) Aspirin 81 Mg Tablet.dr, 81 MG PO DAILY, (Reported) Atorvastatin Calcium 80 Mg Tablet, 80 MG PO DAILY, (Reported) Bupropion HCl 75 Mg Tablet, 75 MG PO DAILY, (Reported) Carvedilol 6.25 Mg Tablet, 6.25 MG PO BID, (Reported) Clopidogrel Bisulfate 75 Mg Tablet, 75 MG PO DAILY, (Reported) Fluticasone/Salmeterol 1 Each Blst.w.dev, 1 EACH IH DAILY, (Reported) Isosorbide Mononitrate 30 Mg Tab.er.24h, 15 MG PO DAILY, (Reported) TAKES 1/2 (30MG) TABLET Mirtazapine 30 Mg Tablet, 30 MG PO HS, (Reported) Montelukast Sodium 10 Mg Tablet, 10 MG PO DAILY, (Reported) Nitroglycerin 0.4 Mg Tab.subl, 0.4 MG PO UD PRN for CHEST PAIN, (Reported) [place] 3 Polyunsat Fatty Acids 1,000 Mg Cap, 1,000 MG PO DAILY, (Reported) Ranolazine 1,000 Mg Tab.er.12h, 1,000 MG PO BID, (Reported) Sertraline HCl 100 Mg Tablet, 100 MG PO DAILY, (Reported) Patient Home Medication List Home Medication List Reviewed: Yes Review of Systems Constitutional: see HPI; No chills, No fever Respiratory: no symptoms reported Cardiovascular: no symptoms reported Musculoskeletal: see HPI, joint pain, joint swelling Skin: change in color; No dryness, No lesions Psychiatric/Neurological: No Symptoms Reported Past Rugvmuw-Nwvmzt-Zsynuv Hx Past Med/Social Hx: Reviewed Nursing Past Med/Soc Hx Patient Social History Alcohol Use: Past History Recreational Drug Use: No Smoking Status: Former Smoker Type Used: Cigarettes Former Smoker, Quit: October 16, 2017 2nd Hand Smoke Exposure: Yes Recent Foreign Travel: No Contact w/Someone Who Travel: No Recent Infectious Disease Expo: No Recent Hopitalizations: Yes (07/31/2017) Immunizations Up To Date Tetanus Booster (TDap): Unknown PED Vaccines UTD: No Date of Pneumonia Vaccine: Mar 23, 2013 Date of Influenza Vaccine: Jul 31, 2017 Seasonal Allergies Seasonal Allergies: No Past Medical History Surgeries: Yes (1 VESSEL CABG, CARDIAC STENTS X 4; LEFT LEG STENT 02/2017) Abdominal, Cardiac, CABG, Coronary Stent, Tonsillectomy, Vascular Surgery Respiratory: Yes (WEARS O2 AT 4L/NC CONTINUOUSLY. ) Pneumonia, Chronic Bronchitis, COPD Currently Using CPAP: No Currently Using BIPAP: No Cardiac: Yes (CAROTID DISEASE; CARDIAC ARREST; + 4 CARDIAC STENTS ) Coronary Artery Disease, Deep Vein Thrombosis, Heart Attack, High Cholesterol, Hypertension, Peripheral Vascular Neurological: Yes Reproductive Disorders: No Sexually Transmitted Disease: No HIV/AIDS: No Genitourinary: No Gastrointestinal: Yes Gastroesophageal Reflux, Ulcer Musculoskeletal: Yes Arthritis Endocrine: No HEENT: No Loss of Vision: Denies Hearing Impairment: Denies Cancer: No Psychosocial: Yes Sleep Difficulties, Schizophrenia, Depression Integumentary: No Blood Disorders: No Adverse Reaction/Blood Tranf: No Family Medical History Reviewed Nursing Family Hx Diabetes mellitus 19 MOTHER FH: heart disease 19 FATHER Heart Disease, Diabetes Physical Exam Vital Signs Vital Signs - First Documented 04/25/18 04/25/18 13:47 14:16 Temp 97.3 Pulse 82 Resp 16 B/P (MAP) 160/80 (106) Pulse Ox 88 O2 Delivery Nasal Cannula O2 Flow Rate 4.00 Capillary Refill : Less Than 3 Seconds Height, Weight, BMI Height: 5'8.00" Weight: 162lbs. 0.0oz. [id number]; 24.3 BMI Method:Stated General Appearance: WD/WN, no apparent distress Cardiovascular: regular rate, rhythm, no murmur Respiratory: decreased breath sounds, wheezing Feet: left foot non-tender, left foot normal inspection; right foot soft tissue tenderness, right foot swelling, right foot other (mild erythema across the mid foot anteriorly. On swelling and pain noted to the same area. No injuries noted.) Neurologic/Psychiatric: alert Skin: warm/dry, other (as above) Progress/Results/Core Measures Results/Orders My Orders Orders - ANTOINETTE SANDHU MD Foot, Right, 3 View (04/25/18 13:56) Ketorolac Injection (Toradol Injection) (04/25/18 13:56) Albuterol/Ipra Inhalation Soln (Duoneb I (04/25/18 14:00) Svn Small Volume Nebulizer (04/25/18 13:56) Prednisone Tablet (Deltasone Tablet) (04/25/18 14:45) Medications Given in ED Current Medications Medications Dose Ordered Sig/Shira Route Start Time Stop Time Status Last Admin Dose Admin Albuterol/ Ipratropium 3 ml ONCE ONCE INH 04/25/18 14:00 04/25/18 14:01 DC 04/25/18 14:15 3 ML Vital Signs/I&O 04/25/18 04/25/18 13:47 14:16 Temp 97.3 Pulse 82 Resp 16 B/P (MAP) 160/80 (106) Pulse Ox 88 O2 Delivery Nasal Cannula Nasal Cannula O2 Flow Rate 4.00 Blood Pressure Mean: 106 Progress Progress Note : Progress Note Seen and evaluated. X-ray right foot. Toradol 30 mg IM. Duo neb ordered due to respiratory tightness Monitor patient. 1455: Prednisone 40 mg by mouth given for concerns for arthritic type symptoms. Breathing is improved. Toradol did help with pain. X-ray shows no acute fracture. Likely arthritic in etiology at this point. This was discussed with the patient. Discharged home with return precautions. Patient verbalize understanding instructions and agreement with plan. Diagnostic Imaging Diagonstic Imaging: Xray Plain Films/CT/US/NM/MRI: other Comments NAME: WINTER PIEDRA [facility] REC#: [id number] PT STATUS: REG ER : 1955 PHYSICIAN: ANTOINETTE SANDHU MD ADMIT DATE: 04/25/18/ER Signed Date of Exam: 04/25/18 FOOT, RIGHT, 3 VIEW EXAMINATION: Right foot, 3 views. COMPARISON: None. HISTORY: 52-year-old male, right foot pain and swelling. No known injury. FINDINGS: There are vascular calcifications. There is no identified ankle joint effusion. There is no identified radiopaque foreign body. There is no acute fracture. There is no identified abnormal bone alignment. There is no cortical or aggressive bone destruction. There is no periosteal reaction. Joint spaces appear well preserved. IMPRESSION: 1. No identified acute bony abnormality of the right foot. Dictated by: Dictated on workstation # [id number] Dict: 04/25/18 1419 Trans: 04/25/18 1441 Interpreted by: KUN LOCKWOOD MD Electronically signed by: KUN LOCKWOOD MD 04/25/18 1441 Departure Impression Primary Impression: Arthralgia of right foot Disposition: 01 HOME, SELF-CARE Condition: Stable Departure-Patient Inst. Decision time for Depature: 15:00 Referrals: BRANDON RODAS MD (PCP/Family) Primary Care Physician Patient Instructions: ARTHRALGIA, Gout (DC) Add. Discharge Instructions: All discharge instructions reviewed with patient and/or family. Voiced understanding. You may take ibuprofen 400 mg every 8 hours as needed for pain. You may take Tylenol/acetaminophen 1000 mg every 8 hours as needed for pain. Follow-up with your doctor this week for recheck. Return for worse pain, swelling, weakness, breathing problems or other concerns as needed. Scripts Prednisone (Prednisone) 20 Mg Tab 40 MG PO DAILY, #8 TAB 0 Refills Prov: ANTOINETTE SANDHU MD 04/25/18 ANTOINETTE SANDHU MD Apr 25, 2018 14:59
[2018-04-25] MEDS ORDERED: PRD20T PO (15:03)
[2018-04-25 15:13] VITALS: BP 148/74
== END 2018-04-25 15:13 | disposition home or self-care (01) ==
LOC: EDUNIT# 13:44 → ER 13:45
DX: M25.571 Pain in right ankle and joints of right foot (principal); J44.9 Chronic obstructive pulmonary disease, unspecified; I25.10 Atherosclerotic heart disease of native coronary artery without angina pectoris; I25.2 Old myocardial infarction; E78.00 Pure hypercholesterolemia, unspecified; I10 Essential (primary) hypertension; K21.9 Gastro-esophageal reflux disease without esophagitis; F20.9 Schizophrenia, unspecified; F32.9 Major depressive disorder, single episode, unspecified; Z82.49 Family history of ischemic heart disease and other diseases of the circulatory system; Z87.19 Personal history of other diseases of the digestive system; Z86.718 Personal history of other venous thrombosis and embolism; Z88.8 Allergy status to other drugs, medicaments and biological substances; Z88.7 Allergy status to serum and vaccine; Z88.6 Allergy status to analgesic agent; Z79.51 Long term (current) use of inhaled steroids; Z79.82 Long term (current) use of aspirin; Z79.02 Long term (current) use of antithrombotics/antiplatelets; Z87.891 Personal history of nicotine dependence; Z95.5 Presence of coronary angioplasty implant and graft; Z98.61 Coronary angioplasty status; Z90.89 Acquired absence of other organs; Z87.01 Personal history of pneumonia (recurrent)
CPT/HCPCS: 73630; 94640

== ENCOUNTER 2018-06-24 10:27 | Outpatient (RCR) | payer MEDICARE, MEDICAID ==
[~2018-06-24 10:27] MED LIST changes: -AMLO5TAB7 PO; +AMLO5TAB9 PO
[2018-06-30] MEDS ORDERED: LEVO500T2 PO (18:25)
[2018-06-30] MEDS ORDERED: PRD20T PO (18:25)
== END 2018-08-06 | disposition home or self-care (01) ==
LOC: CR 10:27
PROVIDERS: ATTEND Internal Medicine Cardiovascular Disease
DX: I20.8 Other forms of angina pectoris (principal)
CPT/HCPCS: 93798

== ENCOUNTER 2018-06-30 15:52 | Emergency (ER) | payer MEDICARE, MEDICAID ==
[~2018-06-30] VITALS: Ht 172.7 cm; Wt 73.9 kg
[2018-06-30] MEDS ORDERED: DEXAMETHASONE 4 MG/ML SDV (DECADRON) ONE (16:31)
[2018-06-30] MEDS ORDERED: DEXAMETHASONE 4 MG/ML SDV (DECADRON) IH ONE (16:45)
[2018-06-30 17:15] LABS: BASOPHILS % (AUTO) 0 % (0-10); EOSINOPHILS % (AUTO) 1 % (0-10); HEMATOCRIT 36 % (40-54); HEMOGLOBIN 11.4 G/DL (13.3-17.7); LYMPHOCYTES # (AUTO) 1.2 X 10^3 (1.0-4.0); LYMPHOCYTES % (AUTO) 20 % (12-44); MEAN CORPUSCULAR HEMOGLOBIN 30 PG (25-34); MEAN CORPUSCULAR HGB CONC 32 G/DL (32-36); MEAN CORPUSCULAR VOLUME 96 FL (80-99); MEAN PLATELET VOLUME 10.3 FL (7.4-10.4); MONOCYTES # (AUTO) 0.6 X 10^3 (0.0-1.0); MONOCYTES % (AUTO) 10 % (0-12); NEUTROPHILS % (AUTO) 69 % (42-75); PLATELET COUNT 173 10^3/uL (130-400); RED BLOOD COUNT 3.76 10^6/uL (4.35-5.85); RED CELL DISTRIBUTION WIDTH 12.3 % (10.0-14.5); WHITE BLOOD COUNT 5.9 10^3/uL (4.3-11.0)
[2018-06-30 17:25] LABS: ALANINE AMINOTRANSFERASE 13 U/L (0-55); ALBUMIN 3.9 GM/DL (3.2-4.5); ALKALINE PHOSPHATASE 80 U/L (40-136); BILIRUBIN,TOTAL 0.4 MG/DL (0.1-1.0); BUN/CREATININE RATIO 13; CALCIUM 9.7 MG/DL (8.5-10.1); CARBON DIOXIDE 41 MMOL/L (21-32); CHLORIDE 95 MMOL/L (98-107); CREATININE SERUM 0.86 MG/DL (0.60-1.30); GFR ESTIMATED > 60; GLUCOSE 113 MG/DL (70-105); MAGNESIUM 1.8 MG/DL (1.8-2.4); POTASSIUM 3.7 MMOL/L (3.6-5.0); SODIUM 143 MMOL/L (135-145)
--- NOTE | 2018-06-30 17:37 | ED Cough/URI ---
General Chief Complaint: Respiratory Problems Stated Complaint: HYPOXIA Nursing Triage Note: PT PRESENTS TO ED PER EMS FROM [facility] FOR SOA AND HYPOXIA. PT WALKED TO THE [facility] ABOUT 2 BLOCKS FROM HIS HOUSE AND UPONA ARRIVAL TO THE CLINIC PT WAS SATING IN THE 80%'S WITH HIS HOME 02 ON. PT RECIEVED 2 DUONEB TREATMENTS AT THE CLINIC. PT IS SATING 97 % ON 3 L UPON ARRIVAL TO ED. PT REPORTS HE HAS HAD N/V/ D SINCE FRIDAY. History of Present Illness Date Seen by Provider: Jun 30, 2018 Time Seen by Provider: 16:10 Initial Comments 62-year-old male presents for shortness of air and hypoxia. He has a long-standing history of COPD and uses oxygen at home. He walked approximately 2 blocks to see his primary care provider, he was hypoxic at that time and complaining of shortness of air. He was transferred here by EMS. He received 2 DuoNeb treatments at the clinic prior to EMS transfer. He had nausea and vomiting on Friday but denies any at the present time. Timing/Duration: this afternoon Severity/Quality: mild Prior Episodes/Possible Cause: occasional episodes Modifying Factors: Improves With Oxygen Associated Symptoms: cough, shortness of breath Allergies and Home Medications Allergies Coded Allergies: budesonide (Verified Allergy, Severe, angioedema, 02/15/18) formoterol (Verified Allergy, Severe, angioedema, 02/15/18) tetanus toxoid, adsorbed (Verified Allergy, Mild, hives, 02/15/18) DOROTA Inhibitors (Verified Allergy, Unknown, Angioedema, 05/08/17) Home Medications Albuterol Sulfate 2.5 Mg/3 Ml Vial.neb, 2.5 MG NEB TID, (Reported) Albuterol Sulfate 1 Puff Puff, 2 PUFF IH PRN PRN for SHORTNESS OF BREATH, ( Reported) 1 PUFF = 90 MCG Amlodipine Besylate 5 Mg Tablet, 5 MG PO DAILY, (Reported) Aripiprazole 30 Mg Tablet, 30 MG PO DAILY, (Reported) Aspirin 81 Mg Tablet.dr, 81 MG PO DAILY, (Reported) Atorvastatin Calcium 80 Mg Tablet, 80 MG PO DAILY, (Reported) Bupropion HCl 75 Mg Tablet, 75 MG PO DAILY, (Reported) Carvedilol 6.25 Mg Tablet, 6.25 MG PO BID, (Reported) Clopidogrel Bisulfate 75 Mg Tablet, 75 MG PO DAILY, (Reported) Fluticasone/Salmeterol 1 Each Blst.w.dev, 1 EACH IH DAILY, (Reported) Isosorbide Mononitrate 30 Mg Tab.er.24h, 15 MG PO DAILY, (Reported) TAKES 1/2 (30MG) TABLET Levofloxacin 500 Mg Tablet, 500 MG PO DAILY Prescribed by: MARGARITA ROBERTSON on 06/30/181824 Mirtazapine 30 Mg Tablet, 30 MG PO HS, (Reported) Montelukast Sodium 10 Mg Tablet, 10 MG PO DAILY, (Reported) Nitroglycerin 0.4 Mg Tab.subl, 0.4 MG PO UD PRN for CHEST PAIN, (Reported) [place] 3 Polyunsat Fatty Acids 1,000 Mg Cap, 1,000 MG PO DAILY, (Reported) Prednisone 20 Mg Tab, 40 MG PO DAILY Prescribed by: ANTOINETTE SANDHU on 04/25/18 150 Prednisone 20 Mg Tab, 40 MG PO DAILY Prescribed by: MARGARITA ROBERTSON on 06/30/181824 Ranolazine 1,000 Mg Tab.er.12h, 1,000 MG PO BID, (Reported) Sertraline HCl 100 Mg Tablet, 100 MG PO DAILY, (Reported) Patient Home Medication List Home Medication List Reviewed: Yes Review of Systems Review of Systems Constitutional: no symptoms reported, see HPI Respiratory: see HPI, cough, dyspnea on exertion, phlegm, short of breath Gastrointestinal: no symptoms reported, see HPI; No abdominal pain, No diarrhea , No heartburn, No loss of appetite, No nausea, No vomiting All Other Systems Reviewed Negative Unless Noted: Yes Past Ruikdpm-Ckbfng-Eguizs Hx Past Med/Social Hx: Reviewed Nursing Past Med/Soc Hx Patient Social History Alcohol Use: Denies Use Recreational Drug Use: No Smoking Status: Former Smoker Type Used: Cigarettes Former Smoker, Quit: October 16, 2017 2nd Hand Smoke Exposure: Yes Recent Foreign Travel: No Contact w/Someone Who Travel: No Recent Infectious Disease Expo: No Recent Hopitalizations: Yes (07/31/2017) Physical Abuse: No Sexual Abuse: No Mistreated: No Fear: No Immunizations Up To Date Tetanus Booster (TDap): Unknown PED Vaccines UTD: No Date of Pneumonia Vaccine: Mar 23, 2013 Date of Influenza Vaccine: Jul 31, 2017 Seasonal Allergies Seasonal Allergies: No Past Medical History Surgeries: Yes (1 VESSEL CABG, CARDIAC STENTS X 4; LEFT LEG STENT 02/2017) Abdominal, Cardiac, CABG, Coronary Stent, Tonsillectomy, Vascular Surgery Respiratory: Yes (WEARS O2 AT 4L/NC CONTINUOUSLY. ) Pneumonia, Chronic Bronchitis, COPD Currently Using CPAP: No Currently Using BIPAP: No Cardiac: Yes (CAROTID DISEASE; CARDIAC ARREST; + 4 CARDIAC STENTS ) Coronary Artery Disease, Deep Vein Thrombosis, Heart Attack, High Cholesterol, Hypertension, Peripheral Vascular Neurological: Yes Stroke Reproductive Disorders: No Sexually Transmitted Disease: No HIV/AIDS: No Genitourinary: No Gastrointestinal: Yes Gastroesophageal Reflux, Ulcer Musculoskeletal: Yes Arthritis Endocrine: No HEENT: No Loss of Vision: Denies Hearing Impairment: Denies Cancer: No Psychosocial: Yes Sleep Difficulties, Schizophrenia, Depression Integumentary: No Blood Disorders: No Adverse Reaction/Blood Tranf: No Family Medical History Diabetes mellitus 19 MOTHER FH: heart disease 19 FATHER Heart Disease, Diabetes Physical Exam Vital Signs - First Documented 06/30/18 16:06 Temp 97.5 Pulse 90 Resp 18 B/P (MAP) 145/70 (95) Pulse Ox 97 O2 Delivery Nasal Cannula O2 Flow Rate 3.00 Capillary Refill : Less Than 3 Seconds Height: 5'8.00" Weight: 163lbs. 0.0oz. 73.997283ly; 24.3 BMI Method:Stated General Appearance: WD/WN, no apparent distress Eyes: Bilateral Eye Normal Inspection, Bilateral Eye PERRL, Bilateral Eye EOMI HEENT: PERRL/EOMI, normal ENT inspection, TMs normal, pharynx normal Neck: non-tender, full range of motion, supple, normal inspection Respiratory: chest non-tender, no respiratory distress, wheezing Cardiovascular: normal peripheral pulses, regular rate, rhythm, no murmur Gastrointestinal: normal bowel sounds, non tender, soft Extremities: normal range of motion, non-tender, normal inspection, normal capillary refill Neurologic/Psychiatric: no motor/sensory deficits, alert, normal mood/affect, oriented x 3 Skin: normal color, warm/dry Focused Exam Sepsis Stage: Ruled Out Lactate Level 06/30/18 16:32: Lactic Acid Level 0.74 Time of Focused Exam: 17:30 Respiratory: Chest Non Tender, Lungs Clear, Normal Breath Sounds Cardiovascular: Regular Rate, Rhythm, No Murmur, Normal Peripheral Pulses Capillary Refill: Less Than 3 Seconds Skin: normal color, warm/dry Lactic Acid Level Laboratory Tests Test 06/30/18 16:32 Lactic Acid Level 0.74 MMOL/L (0.50-2.00) Within 3hrs of presentation: Admin fluids (patient did not meet sepsis criteria , afebrile, normotensive, no tachycardia, lactate level 0.74.), Admin ABX, Blood cultures prior to ABX's, D/C Instructions given to patient, Lactate level Progress/Results/Core Measures Suspected Sepsis Recent Fever Within 48 Hours: No Infection Criteria Present: Suspected New Infection New/Unexplained Altered Menta: No Sepsis Screen: No Definite Risk Within 3hrs of presentation: Admin fluids, Blood cultures prior to ABX's, D/C Instructions given to patient, Focus exam, Lactate level SIRS Temperature:97.5 Pulse: 90 Respiratory Rate: 18 Laboratory Tests 06/30/18 16:55: White Blood Count 5.9 Blood Pressure 145 /70 Mean: 95 06/30/18 16:32: Lactic Acid Level 0.74 Laboratory Tests 06/30/18 16:55: Creatinine 0.86, Platelet Count 173, Total Bilirubin 0.4 Results/Orders Lab Results Laboratory Tests Test 06/30/18 16:32 06/30/18 16:55 Range/Units Lactic Acid Level 0.74 0.50-2.00 MMOL/L White Blood Count 5.9 4.3-11.0 10^3/uL Red Blood Count 3.76 L 4.35-5.85 10^6/uL Hemoglobin 11.4 L 13.3-17.7 G/DL Hematocrit 36 L 40-54 % Mean Corpuscular Volume 96 80-99 FL Mean Corpuscular Hemoglobin 30 25-34 PG Mean Corpuscular Hemoglobin Concent 32 32-36 G/DL Red Cell Distribution Width 12.3 10.0-14.5 % Platelet Count 173 130-400 10^3/uL Mean Platelet Volume 10.3 7.4-10.4 FL Neutrophils (%) (Auto) 69 42-75 % Lymphocytes (%) (Auto) 20 12-44 % Monocytes (%) (Auto) 10 0-12 % Eosinophils (%) (Auto) 1 0-10 % Basophils (%) (Auto) 0 0-10 % Neutrophils # (Auto) 4.0 1.8-7.8 X 10^3 Lymphocytes # (Auto) 1.2 1.0-4.0 X 10^3 Monocytes # (Auto) 0.6 0.0-1.0 X 10^3 Eosinophils # (Auto) 0.0 0.0-0.3 10^3/uL Basophils # (Auto) 0.0 0.0-0.1 10^3/uL Sodium Level 143 135-145 MMOL/L Potassium Level 3.7 3.6-5.0 MMOL/L Chloride Level 95 L 98-107 MMOL/L Carbon Dioxide Level 41 H 21-32 MMOL/L Anion Gap 7 5-14 MMOL/L Blood Urea Nitrogen 11 7-18 MG/DL Creatinine 0.86 0.60-1.30 MG/DL Estimat Glomerular Filtration Rate > 60 BUN/Creatinine Ratio 13 Glucose Level 113 H 70-105 MG/DL Calcium Level 9.7 8.5-10.1 MG/DL Corrected Calcium 9.8 8.5-10.1 MG/DL Magnesium Level 1.8 1.8-2.4 MG/DL Total Bilirubin 0.4 0.1-1.0 MG/DL Aspartate Amino Transf (AST/SGOT) 17 5-34 U/L Alanine Aminotransferase (ALT/SGPT) 13 0-55 U/L Alkaline Phosphatase 80 40-136 U/L Troponin I < 0.028 <0.028 NG/ML B-Type Natriuretic Peptide 43.1 <100.0 PG/ML Total Protein 7.0 6.4-8.2 GM/DL Albumin 3.9 3.2-4.5 GM/DL My Orders Orders - MARGARITA ROBERTSON Cbc With Automated Diff (06/30/18 16:20) Comprehensive Metabolic Panel (06/30/18 16:20) BNP (06/30/18 16:20) Blood Culture (06/30/18 16:20) Magnesium (06/30/18 16:20) Chest Pa/Lat (2 View) (06/30/18 16:20) Ekg Tracing (06/30/18 16:20) O2 (06/30/18 16:20) Saline Lock/Iv-Start (06/30/18 16:20) Monitor-Rhythm Ecg Trace Only (06/30/18 16:20) Lactic Acid Analyzer (06/30/18 16:20) Dexamethasone Injection (Decadron Inject (06/30/18 16:45) Svn Small Volume Nebulizer (06/30/18 16:31) Dexamethasone Injection (Decadron Inject (06/30/18 16:31) Troponin I (06/30/18 17:24) Levofloxacin Tablet (Levaquin Tablet) (06/30/18 18:30) Levofloxacin Tablet (Levaquin Tablet) (06/30/18 18:21) Medications Given in ED Current Medications Medications Dose Ordered Sig/Shiar Route Start Time Stop Time Status Last Admin Dose Admin Dexamethasone Sodium Phosphate 8 mg ONCE ONCE IH 06/30/18 16:45 06/30/18 16:46 DC 06/30/18 16:38 8 MG Levofloxacin 500 mg ONCE ONCE PO 06/30/18 18:30 06/30/18 18:31 DC 06/30/18 18:26 500 MG Vital Signs/I&O 06/30/18 06/30/18 06/30/18 06/30/18 16:06 16:27 16:38 19:34 Temp 97.5 Pulse 90 80 Resp 18 16 B/P (MAP) 145/70 (95) 130/87 (101) Pulse Ox 97 95 94 98 O2 Delivery Nasal Cannula Nasal Cannula Nasal Cannula O2 Flow Rate 3.00 2.00 2.00 Capillary Refill : Less Than 3 Seconds Blood Pressure Mean: 95 Progress Note : Time: 16:10 Progress Note Initial evaluation completed, ECG Initial ECG Impression Date: Jun 30, 2018 Initial ECG Impression Time: 16:22 Initial ECG Rate: 62 Initial ECG Rhythm: Normal Sinus Initial ECG Intervals: Normal Initial ECG Intervals ID 136, QRSD 106, QT 388, QTc 453. [place] P 56, QRS -45, T 83. Initial ECG Impression: Normal Initial ECG Comparisson: No Previous ECG Available Comment Viewed with Dr. Sandhu, agreed with interpretation. Diagnostic Imaging Diagonstic Imaging: Xray Plain Films/CT/US/NM/MRI: chest Comments NAME: WINTER PIEDRA [facility] REC#: [id number] PT STATUS: REG ER : 1955 PHYSICIAN: MARGARITA ROBERTSON ADMIT DATE: 06/30/18/ER Draft Date of Exam:06/30/18 CHEST PA/LAT (2 VIEW) INDICATION: Shortness of breath, coronary artery disease. COMPARISON: 03/18/2018. FINDINGS: Frontal and lateral views of the chest demonstrate new infiltrate in the right upper lobe. There is stable atelectasis in the right base. Trace bilateral pleural effusions are present. There is no pneumothorax. The heart is prominent without overt pulmonary edema. Sternal wires are midline. IMPRESSION: 1. New right upper lobe infiltrate. 2. Trace bilateral pleural effusions. 3. Slight cardiac enlargement without pulmonary edema. Dictated on workstation # [id number] Dict: 06/30/18 1711 Trans: 06/30/18 1743 [id number] Interpreted by: NIKOS TRIMBLE Electronically signed by: Reviewed: Reviewed by Me Departure Impression Primary Impression: Right upper lobe pneumonia Qualified Codes: J18.1 - Lobar pneumonia, unspecified organism Disposition: HOME, SELF-CARE Condition: Improved Departure-Patient Inst. Decision time for Depature: 18:00 Referrals: BRANDON RODAS MD (PCP/Family) Primary Care Physician Patient Instructions: Pneumonia, Adult (DC) Add. Discharge Instructions: Take antibiotic daily as prescribed. Use your albuterol nebulized machine every 4 hours for breathing treatment. Continue to usual home oxygen. Increase her fluid intake. Follow-up with Dr. Rodas in 2 days, sooner if symptoms are worsening. You may take Tylenol 650 mg alternating with ibuprofen 600 mg every 4 hours for pain or fever. Return to emergency department for shortness of breath, nausea and vomiting, fever greater than 101 not relieved by Tylenol or ibuprofen, or new problems. All discharge instructions reviewed with patient and/or family. Voiced understanding. Scripts Prednisone (Prednisone) 20 Mg Tab 40 MG PO DAILY, #6 TAB 0 Refills Prov: MARGARITA ROBERTSON 06/30/18 Levofloxacin (Levaquin) 500 Mg Tablet 500 MG PO DAILY, #7 TAB 0 Refills Prov: MARGARITA ROBERTSON 06/30/18 MARGARITA ROBERTSON Jun 30, 2018 17:37
--- NOTE | 2018-06-30 17:44 | Diagnostic Imaging Report ---
INDICATION: Shortness of breath, coronary artery disease. COMPARISON: 03/18/2018. FINDINGS: Frontal and lateral views of the chest demonstrate new infiltrate in the right upper lobe. There is stable atelectasis in the right base. Trace bilateral pleural effusions are present. There is no pneumothorax. The heart is prominent without overt pulmonary edema. Sternal wires are midline. IMPRESSION: 1. New right upper lobe infiltrate. 2. Trace bilateral pleural effusions. 3. Slight cardiac enlargement without pulmonary edema. Dictated by: Dictated on workstation # [id number]
[2018-06-30] MEDS ORDERED: LEVOFLOXACIN 500 MG TAB (LEVAQUIN) ONE (18:21)
[2018-06-30] MEDS ORDERED: LEVO500T2 PO (18:25)
[2018-06-30] MEDS ORDERED: PRD20T PO (18:25)
[2018-06-30] MEDS ORDERED: LEVOFLOXACIN 500 MG TAB (LEVAQUIN) PO ONE (18:30)
[2018-06-30 19:34] VITALS: BP 130/87
== END 2018-06-30 19:33 | disposition home or self-care (01) ==
LOC: EDUNIT# 15:52 → ER 15:53
DX: J18.1 Lobar pneumonia, unspecified organism (principal); J44.9 Chronic obstructive pulmonary disease, unspecified; I25.10 Atherosclerotic heart disease of native coronary artery without angina pectoris; I25.2 Old myocardial infarction; E78.00 Pure hypercholesterolemia, unspecified; I10 Essential (primary) hypertension; I73.9 Peripheral vascular disease, unspecified; K21.9 Gastro-esophageal reflux disease without esophagitis; F20.9 Schizophrenia, unspecified; F32.9 Major depressive disorder, single episode, unspecified; Z87.19 Personal history of other diseases of the digestive system; Z86.73 Personal history of transient ischemic attack (TIA), and cerebral infarction without residual deficits; Z86.718 Personal history of other venous thrombosis and embolism; Z82.49 Family history of ischemic heart disease and other diseases of the circulatory system; Z79.51 Long term (current) use of inhaled steroids; Z79.82 Long term (current) use of aspirin; Z79.52 Long term (current) use of systemic steroids; Z79.02 Long term (current) use of antithrombotics/antiplatelets; Z87.891 Personal history of nicotine dependence; Z95.1 Presence of aortocoronary bypass graft; Z95.5 Presence of coronary angioplasty implant and graft; Z95.820 Peripheral vascular angioplasty status with implants and grafts; Z87.01 Personal history of pneumonia (recurrent); Z98.890 Other specified postprocedural states; Z88.8 Allergy status to other drugs, medicaments and biological substances; Z88.7 Allergy status to serum and vaccine
CPT/HCPCS: 36415; 71046; 80053; 83605; 83735; 83880; 84484; 85025; 87040; 93005; 93041; 94640

== ENCOUNTER → 2018-08-14 | Outpatient (CLI) | payer MEDICARE, MEDICAID ==
[~2018-08-14] MED LIST changes: +LEVO500T2 PO
== END ==
LOC: CARD 11:25
PROVIDERS: ATTEND Internal Medicine Cardiovascular Disease
DX: I25.10 Atherosclerotic heart disease of native coronary artery without angina pectoris (principal); J44.9 Chronic obstructive pulmonary disease, unspecified; I50.9 Heart failure, unspecified; R06.02 Shortness of breath
CPT/HCPCS: 93306

== ENCOUNTER 2018-08-20 17:09 | Emergency (ER) | payer MEDICARE, MEDICAID ==
[~2018-08-20] VITALS: Ht 172.7 cm; Wt 77.1 kg
--- NOTE | 2018-08-20 18:06 | ED Fall/Injury ---
General Chief Complaint: Trauma-Non Activation Stated Complaint: FALL Nursing Triage Note: ARRIVED VIA EMS FROM HOME. STATES HE STOOD UP OUT OF BED AND TRIPPED OVER HIS TUBING OF OXYGEN AND FELL LANDING ON HIS RIGHT SIDE. COMPLAINS OF RIGHT SIDED RIB AND FACE PAIN. ALSO COMPLAINS OF LEFT HAND PAIN. Source: patient Exam Limitations: no limitations History of Present Illness Date Seen by Provider: Aug 20, 2018 Time Seen by Provider: 18:05 Initial Comments To ER per EMS from Home with Reports of a Fall. He Became Entangled in His Oxygen Tubing and Then Tripped and Fell Landing on His Right Side of His Face. No Loss of Consciousness. Complains of Pain to the Right Lateral Lower Chest on the Left Hand and Facial Pain. Occurred: just prior to arrival Severity: moderate Injuries/Pain Location: face, upper extremity Context: unknown Associated Symptoms (Fall): Denies Symptoms Allergies and Home Medications Allergies Coded Allergies: budesonide (Verified Allergy, Severe, angioedema, 02/15/18) formoterol (Verified Allergy, Severe, angioedema, 02/15/18) tetanus toxoid, adsorbed (Verified Allergy, Mild, hives, 02/15/18) DOROTA Inhibitors (Verified Allergy, Unknown, Angioedema, 05/08/17) Home Medications Albuterol Sulfate 2.5 Mg/3 Ml Vial.neb, 2.5 MG NEB TID, (Reported) Albuterol Sulfate 1 Puff Puff, 2 PUFF IH PRN PRN for SHORTNESS OF BREATH, ( Reported) 1 PUFF = 90 MCG Amlodipine Besylate 5 Mg Tablet, 5 MG PO DAILY, (Reported) Aripiprazole 30 Mg Tablet, 30 MG PO DAILY, (Reported) Aspirin 81 Mg Tablet.dr, 81 MG PO DAILY, (Reported) Atorvastatin Calcium 80 Mg Tablet, 80 MG PO DAILY, (Reported) Bupropion HCl 75 Mg Tablet, 75 MG PO DAILY, (Reported) Carvedilol 6.25 Mg Tablet, 6.25 MG PO BID, (Reported) Clopidogrel Bisulfate 75 Mg Tablet, 75 MG PO DAILY, (Reported) Fluticasone/Salmeterol 1 Each Blst.w.dev, 1 EACH IH DAILY, (Reported) Isosorbide Mononitrate 30 Mg Tab.er.24h, 15 MG PO DAILY, (Reported) TAKES 1/2 (30MG) TABLET Levofloxacin 500 Mg Tablet, 500 MG PO DAILY Prescribed by: MARGARITA ROBERTSON on 06/30/181824 Mirtazapine 30 Mg Tablet, 30 MG PO HS, (Reported) Montelukast Sodium 10 Mg Tablet, 10 MG PO DAILY, (Reported) Nitroglycerin 0.4 Mg Tab.subl, 0.4 MG PO UD PRN for CHEST PAIN, (Reported) Zenda 3 Polyunsat Fatty Acids 1,000 Mg Cap, 1,000 MG PO DAILY, (Reported) Prednisone 20 Mg Tab, 40 MG PO DAILY Prescribed by: ANTOINETTE SANDHU on 04/25/18 1503 Prednisone 20 Mg Tab, 40 MG PO DAILY Prescribed by: MARGARITA ROBERTSON on 06/30/181824 Ranolazine 1,000 Mg Tab.er.12h, 1,000 MG PO BID, (Reported) Sertraline HCl 100 Mg Tablet, 100 MG PO DAILY, (Reported) Patient Home Medication List Home Medication List Reviewed: Yes (pulmonary) Review of Systems Review of Systems Constitutional: see HPI Eyes: See HPI Ears, Nose, Mouth, Throat: no symptoms reported Respiratory: no symptoms reported Cardiovascular: no symptoms reported Genitourinary: no symptoms reported Musculoskeletal: see HPI Skin: no symptoms reported Psychiatric/Neurological: No Symptoms Reported Past Exgbnmm-Bntacy-Hjgfop Hx Patient Social History Alcohol Use: Denies Use Recreational Drug Use: No Smoking Status: Former Smoker Type Used: Cigarettes Former Smoker, Quit: October 16, 2017 2nd Hand Smoke Exposure: Yes Recent Foreign Travel: No Contact w/Someone Who Travel: No Recent Infectious Disease Expo: No Recent Hopitalizations: Yes (07/31/2017) Immunizations Up To Date Tetanus Booster (TDap): Unknown PED Vaccines UTD: No Date of Pneumonia Vaccine: Mar 23, 2013 Date of Influenza Vaccine: Jul 31, 2017 Seasonal Allergies Seasonal Allergies: No Past Medical History Surgeries: Yes (1 VESSEL CABG, CARDIAC STENTS X 4; LEFT LEG STENT 02/2017) Abdominal, Cardiac, CABG, Coronary Stent, Tonsillectomy, Vascular Surgery Respiratory: Yes (WEARS O2 AT 4L/NC CONTINUOUSLY. ) Pneumonia, Chronic Bronchitis, COPD Currently Using CPAP: No Currently Using BIPAP: No Cardiac: Yes (CAROTID DISEASE; CARDIAC ARREST; + 4 CARDIAC STENTS ) Coronary Artery Disease, Deep Vein Thrombosis, Heart Attack, High Cholesterol, Hypertension, Peripheral Vascular Neurological: Yes Stroke Reproductive Disorders: No Sexually Transmitted Disease: No HIV/AIDS: No Genitourinary: No Gastrointestinal: Yes Gastroesophageal Reflux, Ulcer Musculoskeletal: Yes Arthritis Endocrine: No HEENT: No Loss of Vision: Denies Hearing Impairment: Denies Cancer: No Psychosocial: Yes Sleep Difficulties, Schizophrenia, Depression Integumentary: No Blood Disorders: No Adverse Reaction/Blood Tranf: No Family Medical History Diabetes mellitus 19 MOTHER FH: heart disease 19 FATHER Heart Disease, Diabetes Physical Exam Vital Signs Vital Signs - First Documented 08/20/18 17:09 Temp 98.0 Pulse 78 Resp 16 B/P (MAP) 148/88 (108) Pulse Ox 97 O2 Delivery Nasal Cannula O2 Flow Rate 4.00 Capillary Refill : Less Than 3 Seconds Height, Weight, BMI Height: 5'8.00" Weight: 170lbs. 0.0oz. [id number]; 24.3 BMI Method:Stated General Appearance: WD/WN, no apparent distress HEENT: PERRL/EOMI, normal ENT inspection Neck: non-tender, full range of motion Respiratory: no respiratory distress, no accessory muscle use Gastrointestinal: normal bowel sounds, non tender, soft Neurologic/Psychiatric: alert, normal mood/affect, oriented x 3 Skin: normal color, warm/dry Ringle Coma Score Best Eye Response: (4) Open Spontaneously Best Verbal Response: (5) Oriented Best Motor Response: (6) Obeys Commands Malgorzata Total: 15 Progress/Results/Core Measures Results/Orders My Orders Orders - KAYCEE BAHENA APRN Ct Head/Face/Cervical Wo (08/20/18 17:43) Ribs/Unilateral With Chest (08/20/18 17:43) Hand, Left, 3 Views (08/20/18 17:43) Vital Signs/I&O 08/20/18 17:09 Temp 98.0 Pulse 78 Resp 16 B/P (MAP) 148/88 (108) Pulse Ox 97 O2 Delivery Nasal Cannula O2 Flow Rate 4.00 Blood Pressure Mean: 108 Departure Impression Primary Impression: Fall Qualified Codes: W19.XXXA - Unspecified fall, initial encounter Disposition: 01 HOME, SELF-CARE Condition: Stable Departure-Patient Inst. Decision time for Depature: 18:48 Referrals: BRANDON RODAS MD (PCP/Family) Primary Care Physician Patient Instructions: Preventing Falls Add. Discharge Instructions: All discharge instructions reviewed with patient and/or family. Voiced understanding. KAYCEE BAHENA APRN Aug 20, 2018 18:06
--- NOTE | 2018-08-20 18:26 | NUR ---
RESTING IN BED. NOTIFIED WE WERE WAITING ON RESULTS. DENIES NEEDS AT THIS TIME.
--- NOTE | 2018-08-20 18:30 | Diagnostic Imaging Report ---
INDICATION: Left hand pain, fall. COMPARISON: None. FINDINGS: Three views of the left hand demonstrate no fracture or dislocation. Articular surfaces are age-appropriate. There is no foreign body seen. IMPRESSION: No fracture or dislocation. Dictated by: Dictated on workstation # [id number]
--- NOTE | 2018-08-20 18:43 | Diagnostic Imaging Report ---
PROCEDURE: CT head, face, and cervical spine without contrast. TECHNIQUE: Multiple contiguous axial images were obtained through the head, neck, and facial bones without the use of intravenous contrast. Sagittal and coronal reformations through the cervical spine and facial bones were also performed. INDICATION: Fall. Head, neck, and face pain. COMPARISON: None. CT cervical spine: FINDINGS: Alignment is normal. There is no subluxation or fracture. Mild degenerative changes seen throughout the disc spaces and facet joints. Carotid artery calcifications are present. IMPRESSION: No traumatic malalignment or fracture. CT face: FINDINGS: Postoperative changes are seen involving the medial maxillary sinus wall. The nasal septum is midline. There are no facial fractures. There are no air-fluid levels seen within the paranasal sinuses. There is no osseous lesion. IMPRESSION: No facial fracture identified. CT brain: FINDINGS: Minimal age-related cerebral volume loss and chronic small vessel ischemic changes are present. There is no midline shift or mass effect. There is no hemorrhage or evidence of acute ischemia. No extra-axial fluid collection is seen. The bony calvarium is normal. Mastoids are clear. IMPRESSION: Negative CT head. Dictated by: Dictated on workstation # [id number]
--- NOTE | 2018-08-20 18:43 | Diagnostic Imaging Report ---
INDICATION: Chest and rib pain, fall. COMPARISON: 06/30/2018. EXAMINATION: Single view of the chest and multiple views of the right ribs were obtained. FINDINGS: Stable blunting of the right costophrenic angle. There is no visible rib fracture or osseous lesion. There is no pneumothorax. The heart is slightly enlarged without pulmonary edema. Sternal wires are midline. IMPRESSION: 1. Chronic blunting of the right costophrenic angle. 2. No obvious rib fracture or osseous lesion. 3. No pneumothorax. Dictated by: Dictated on workstation # [id number]
[2018-08-20 18:59] VITALS: BP 140/80
== END 2018-08-20 19:00 | disposition home or self-care (01) ==
LOC: EDUNIT# 17:09 → ER 17:10
DX: J44.9 Chronic obstructive pulmonary disease, unspecified (principal); I25.10 Atherosclerotic heart disease of native coronary artery without angina pectoris; I25.2 Old myocardial infarction; E78.00 Pure hypercholesterolemia, unspecified; I10 Essential (primary) hypertension; I73.9 Peripheral vascular disease, unspecified; K21.9 Gastro-esophageal reflux disease without esophagitis; F20.9 Schizophrenia, unspecified; F32.9 Major depressive disorder, single episode, unspecified; R40.2142 Coma scale, eyes open, spontaneous, at arrival to emergency department; R40.2252 Coma scale, best verbal response, oriented, at arrival to emergency department; R40.2362 Coma scale, best motor response, obeys commands, at arrival to emergency department; Z86.73 Personal history of transient ischemic attack (TIA), and cerebral infarction without residual deficits; Z87.19 Personal history of other diseases of the digestive system; Z82.49 Family history of ischemic heart disease and other diseases of the circulatory system; Z95.820 Peripheral vascular angioplasty status with implants and grafts; Z86.718 Personal history of other venous thrombosis and embolism; Z87.891 Personal history of nicotine dependence; Z95.1 Presence of aortocoronary bypass graft; Z95.5 Presence of coronary angioplasty implant and graft; Z87.01 Personal history of pneumonia (recurrent); Z90.89 Acquired absence of other organs; Z88.7 Allergy status to serum and vaccine; Z99.81 Dependence on supplemental oxygen; Z79.51 Long term (current) use of inhaled steroids; Z79.82 Long term (current) use of aspirin; Z79.02 Long term (current) use of antithrombotics/antiplatelets; Z98.890 Other specified postprocedural states; Z79.52 Long term (current) use of systemic steroids; W01.0XXA Fall on same level from slipping, tripping and stumbling without subsequent striking against object, initial encounter
CPT/HCPCS: 29130; 70450; 70486; 71101; 72125; 73130

== ENCOUNTER → 2018-10-23 | Outpatient (CLI) | payer MEDICARE, MEDICAID ==
--- NOTE | 2018-10-23 14:48 | Diagnostic Imaging Report ---
INDICATION: History of tobacco use with a 130 pack year history. Quit smoking December 2017. TECHNIQUE: Noncontrast, low-dose CT imaging performed according to lung cancer screening protocol. COMPARISON: CT chest 09/16/2017. FINDINGS: HEART/MEDIASTINUM: Poststernotomy and coronary artery bypass changes. Heart size within normal limits. No pericardial effusion. Ascending aorta slightly prominent at 4.2 cm. No suggestion for pathologically enlarged mediastinal lymph nodes on limited, noncontrast imaging. LUNGS: Prominent central peribronchial thickening is present. No consolidating infiltrate. MEASURED PULMONARY NODULES: Image 42 series 2, there is a mixed solid and partially cavitary nodule anterolateral aspect right upper lobe at 7 x 7 x 8 mm in size. Image 119 series 2, mixed, somewhat stellate density in the lateral left mid lung field inseparable from the fissure plane measuring 14 x 13 x 9 mm. OTHER: Unchanged elevated right diaphragm with some right lung volume loss. IMPRESSION: 1. Mixed solid and cavitary nodule right upper lobe and asymmetric parenchymal density lateral left lower lobe are again demonstrated. While somewhat difficult to quantify compared to prior conventional CT chest, overall appear generally stable, favoring probable benign process. 2. Scattered areas of prominent peribronchial thickening could reflect nonspecific chronic bronchiolitis. No focal lobar infiltrate. LUNG-RADS CATEGORY: 2 LUNG SCREENING MANAGEMENT/RECOMMENDATIONS: Continued annual screening with low dose CT in 12 months. Notes: Lung rads category 1 or 2 does not mean that an individual does not have lung cancer or other active disease process, but rather nothing is identified to meet criteria for current lung pathology. Therefore, continued annual lung cancer screening should be performed. It is noted that this is a low dose CT examination. As a technical result, the examination is limited in overall assessment compared to a conventional CT examination of the chest. Dictated by: Dictated on workstation # [id number]
== END ==
LOC: RAD 13:35
PROVIDERS: ATTEND Nurse Practitioner Family
DX: R91.8 Other nonspecific abnormal finding of lung field (principal); J44.9 Chronic obstructive pulmonary disease, unspecified; F10.20 Alcohol dependence, uncomplicated; Z87.891 Personal history of nicotine dependence

== ENCOUNTER 2018-10-30 10:34 | Emergency (ER) | payer MEDICARE, MEDICAID ==
[~2018-10-30] VITALS: Ht 172.7 cm; Wt 78.9 kg
[2018-10-30] MEDS ORDERED: ASPIRIN 81 MG CHEW (CHILDREN'S ASA) ONE (10:52)
[2018-10-30] MEDS ORDERED: RT-ALBUTEROL/IPRATROPIUM 3 ML (DUONEB) VIAL INH ONE ×2 (11:00→12:00)
[2018-10-30] MEDS ORDERED: ASPIRIN 81 MG CHEW (CHILDREN'S ASA) PO ONE (11:00)
[2018-10-30 11:06] LABS: BASOPHILS % (AUTO) 0 % (0-10); EOSINOPHILS # (AUTO) 0.1 10^3/uL (0.0-0.3); EOSINOPHILS % (AUTO) 2 % (0-10); HEMATOCRIT 38 % (40-54); HEMOGLOBIN 11.9 G/DL (13.3-17.7); LYMPHOCYTES # (AUTO) 1.5 X 10^3 (1.0-4.0); LYMPHOCYTES % (AUTO) 26 % (12-44); MEAN CORPUSCULAR HEMOGLOBIN 29 PG (25-34); MEAN CORPUSCULAR HGB CONC 31 G/DL (32-36); MEAN CORPUSCULAR VOLUME 94 FL (80-99); MEAN PLATELET VOLUME 10.2 FL (7.4-10.4); MONOCYTES # (AUTO) 0.5 X 10^3 (0.0-1.0); MONOCYTES % (AUTO) 9 % (0-12); NEUTROPHILS # (AUTO) 3.5 X 10^3 (1.8-7.8); NEUTROPHILS % (AUTO) 62 % (42-75); PLATELET COUNT 137 10^3/uL (130-400); RED CELL DISTRIBUTION WIDTH 13.2 % (10.0-14.5); WHITE BLOOD COUNT 5.7 10^3/uL (4.3-11.0)
[2018-10-30 11:18] LABS: PROTHROMBIN TIME PATIENT 13.3 SEC (12.2-14.7)
[2018-10-30 11:21] LABS: ALANINE AMINOTRANSFERASE 21 U/L (0-55); ALBUMIN 4.3 GM/DL (3.2-4.5); ALKALINE PHOSPHATASE 97 U/L (40-136); BILIRUBIN,TOTAL 0.6 MG/DL (0.1-1.0); BUN/CREATININE RATIO 10; CALCIUM 9.7 MG/DL (8.5-10.1); CARBON DIOXIDE 41 MMOL/L (21-32); CHLORIDE 94 MMOL/L (98-107); CREATININE SERUM 0.97 MG/DL (0.60-1.30); GFR ESTIMATED > 60; GLUCOSE 112 MG/DL (70-105); MAGNESIUM 1.9 MG/DL (1.8-2.4); POTASSIUM 4.2 MMOL/L (3.6-5.0); SODIUM 139 MMOL/L (135-145)
--- NOTE | 2018-10-30 11:42 | Diagnostic Imaging Report ---
Indication: Chest pain. Time of exam 11:28 AM Correlation is made with prior study from 08/20/2018. Changes of median sternotomy and CABG are noted. Right hemidiaphragm is chronically elevated. There is chronic blunting of right costophrenic angle. Lungs appear to be clear. The pulmonary vascularity is normal. No pneumothorax is seen. Impression: Stable chest since examination from 08/20/2018. Dictated by: Dictated on workstation # [id number]
[2018-10-30] MEDS ORDERED: RT-ALBUTEROL SULF 2.5 MG/3 ML PRE-MIX VIAL INH STA (11:47)
[2018-10-30] MEDS ORDERED: methylPREDNISolone 125 MG (Solu-MEDROL) VIAL IVP ONE (12:00)
--- NOTE | 2018-10-30 12:02 | ED Chest Pain ---
General Chief Complaint: Chest Pain Stated Complaint: CHEST PAIN Nursing Triage Note: PT TO ROOM 5 PT CO OF CHEST PAIN DURING CARDIAC REHAB. TO ROOM 5 PER W/C W O2 @4L PER N/C Nursing Sepsis Screen: No Definite Risk Source: patient Exam Limitations: no limitations History of Present Illness Date Seen by Provider: October 30, 2018 Time Seen by Provider: 10:51 Initial Comments This 63-year-old gentleman with known coronary artery disease status post CABG presents to the emergency room with complaints of chest pain that started it while exercising at cardiac rehabilitation. He was sent directly to the ER from cardiac rehabilitation. He reports a brief episode of sharp chest pain this morning at around 06:00 that woke him from sleep. He took nitroglycerin with complete relief and went back to sleep. At cardiac rehabilitation he took nitroglycerin spray and 2 nitroglycerin tablets. This minimally improved his pain. He reports pain is presently 6 out of 10. His soil and plant scientist is Dr. Carrion. His primary care providers Dr. Rodas. EKG showed no ST elevation on initial assessment. Review of his chart notes angiography in March 2018. He had occlusive disease of the mid LAD and vein graft to the LAD. Stents were patent. No new interventions were performed. Patient is noted to be very tight and whe ezy on auscultation of the chest. He does have COPD and uses oxygen continuously and uses scheduled nebulizer treatments every day. Dr. Gray is his dot net developer. Patient reports quitting smoking about a year ago. Allergies and Home Medications Allergies Coded Allergies: budesonide (Verified Allergy, Severe, angioedema, 02/15/18) formoterol (Verified Allergy, Severe, angioedema, 02/15/18) tetanus toxoid, adsorbed (Verified Allergy, Mild, hives, 02/15/18) DOROTA Inhibitors (Verified Allergy, Unknown, Angioedema, 05/08/17) Home Medications Albuterol Sulfate 2.5 Mg/3 Ml Vial.neb, 2.5 MG NEB TID, (Reported) Albuterol Sulfate 1 Puff Puff, 2 PUFF IH PRN PRN for SHORTNESS OF BREATH, (Reported) 1 PUFF = 90 MCG Amlodipine Besylate 5 Mg Tablet, 5 MG PO DAILY, (Reported) Aripiprazole 30 Mg Tablet, 30 MG PO DAILY, (Reported) Aspirin 81 Mg Tablet.dr, 81 MG PO DAILY, (Reported) Atorvastatin Calcium 80 Mg Tablet, 80 MG PO DAILY, (Reported) Bupropion HCl 75 Mg Tablet, 75 MG PO DAILY, (Reported) Carvedilol 6.25 Mg Tablet, 6.25 MG PO BID, (Reported) Clopidogrel Bisulfate 75 Mg Tablet, 75 MG PO DAILY, (Reported) Fluticasone/Salmeterol 1 Each Blst.w.dev, 1 EACH IH DAILY, (Reported) Isosorbide Mononitrate 30 Mg Tab.er.24h, 15 MG PO DAILY, (Reported) TAKES 1/2 (30MG) TABLET Levofloxacin 500 Mg Tablet, 500 MG PO DAILY Prescribed by: MARGARITA ROBERTSON on 06/30/181824 Mirtazapine 30 Mg Tablet, 30 MG PO HS, (Reported) Montelukast Sodium 10 Mg Tablet, 10 MG PO DAILY, (Reported) Nitroglycerin 0.4 Mg Tab.subl, 0.4 MG PO UD PRN for CHEST PAIN, (Reported) Pioneer 3 Polyunsat Fatty Acids 1,000 Mg Cap, 1,000 MG PO DAILY, (Reported) Prednisone 20 Mg Tab, 40 MG PO DAILY Prescribed by: ANTOINETTE SANDHU on 04/25/18 1503 Prednisone 20 Mg Tab, 40 MG PO DAILY Prescribed by: MARGARITA ROBERTSON on 06/30/181824 Prednisone 20 Mg Tab, 40 MG PO DAILY Prescribed by: IRIS SHEPHERD on 10/30/18 1401 Ranolazine 1,000 Mg Tab.er.12h, 1,000 MG PO BID, (Reported) Sertraline HCl 100 Mg Tablet, 100 MG PO DAILY, (Reported) Patient Home Medication List Home Medication List Reviewed: Yes Review of Systems Review of Systems Constitutional: no symptoms reported EENTM: No Symptoms Reported Respiratory: See HPI Cardiovascular: See HPI Gastrointestinal: No Symptoms Reported Genitourinary: No Symptoms Reported Musculoskeletal: no symptoms reported Skin: no symptoms reported Psychiatric/Neurological: No Symptoms Reported Endocrine: No Symptoms Reported Past Bykklmz-Cimevd-Bprfvw Hx Past Med/Social Hx: Reviewed Nursing Past Med/Soc Hx Patient Social History Alcohol Use: Denies Use Recreational Drug Use: No Smoking Status: Former Smoker Type Used: Cigarettes Former Smoker, Quit: October 16, 2017 2nd Hand Smoke Exposure: Yes Recent Foreign Travel: No Contact w/Someone Who Travel: No Recent Infectious Disease Expo: No Recent Hopitalizations: Yes (07/31/2017) Immunizations Up To Date Tetanus Booster (TDap): Unknown PED Vaccines UTD: No Date of Pneumonia Vaccine: Mar 23, 2013 Date of Influenza Vaccine: Jul 31, 2017 Seasonal Allergies Seasonal Allergies: No Past Medical History Surgeries: Yes (1 VESSEL CABG, CARDIAC STENTS X 4; LEFT LEG STENT 02/2017) Abdominal, Cardiac, CABG, Coronary Stent, Tonsillectomy, Vascular Surgery Respiratory: Yes (WEARS O2 AT 4L/NC CONTINUOUSLY. ) Pneumonia, Chronic Bronchitis, COPD Currently Using CPAP: No Currently Using BIPAP: No Cardiac: Yes (CAROTID DISEASE; CARDIAC ARREST; + 4 CARDIAC STENTS ) Coronary Artery Disease, Deep Vein Thrombosis, Heart Attack, High Cholesterol, Hypertension, Peripheral Vascular Neurological: Yes Stroke Reproductive Disorders: No Sexually Transmitted Disease: No HIV/AIDS: No Genitourinary: No Gastrointestinal: Yes Gastroesophageal Reflux, Ulcer Musculoskeletal: Yes Arthritis Endocrine: No HEENT: No Loss of Vision: Denies Hearing Impairment: Denies Cancer: No Psychosocial: Yes Sleep Difficulties, Schizophrenia, Depression Integumentary: No Blood Disorders: No Adverse Reaction/Blood Tranf: No Family Medical History Reviewed Nursing Family Hx Diabetes mellitus 19 MOTHER FH: heart disease 19 FATHER Heart Disease, Diabetes Physical Exam Vital Signs Vital Signs - First Documented 10/30/18 10:35 Temp 97.4 Pulse 85 Resp 18 B/P (MAP) 144/89 (107) Capillary Refill : Less Than 3 Seconds Height, Weight, BMI Height: 5'8.00" Weight: 174lbs. 0.0oz. 78.801927ep; 24.3 BMI Method:Stated General Appearance: No Apparent Distress, WD/WN HEENT: PERRL/EOMI, Normal ENT Inspection Neck: Normal Inspection Respiratory: No Accessory Muscle Use, No Respiratory Distress, Decreased Breath Sounds (decreased air movement. Decreased breath sounds in the lower lung davis.), Wheezing Cardiovascular: No Murmur, Normal Peripheral Pulses Gastrointestinal: Normal Bowel Sounds, Non Tender, Soft Extremity: Normal Capillary Refill, Non Tender, No Calf Tenderness, Swelling (trace lower extremity edema equal bilaterally) Neurologic/Psychiatric: Alert, Oriented x3, No Motor/Sensory Deficits, Normal Mood/Affect, hoseman II-XII Norm as Tested Skin: Normal Color, Warm/Dry Progress/Results/Core Measures Results/Orders Lab Results Laboratory Tests Test 10/30/18 10:50 10/30/18 12:55 Range/Units White Blood Count 5.7 4.3-11.0 10^3/uL Red Blood Count 4.05 L 4.35-5.85 10^6/uL Hemoglobin 11.9 L 13.3-17.7 G/DL Hematocrit 38 L 40-54 % Mean Corpuscular Volume 94 80-99 FL Mean Corpuscular Hemoglobin 29 25-34 PG Mean Corpuscular Hemoglobin Concent 31 L 32-36 G/DL Red Cell Distribution Width 13.2 10.0-14.5 % Platelet Count 137 130-400 10^3/uL Mean Platelet Volume 10.2 7.4-10.4 FL Neutrophils (%) (Auto) 62 42-75 % Lymphocytes (%) (Auto) 26 12-44 % Monocytes (%) (Auto) 9 0-12 % Eosinophils (%) (Auto) 2 0-10 % Basophils (%) (Auto) 0 0-10 % Neutrophils # (Auto) 3.5 1.8-7.8 X 10^3 Lymphocytes # (Auto) 1.5 1.0-4.0 X 10^3 Monocytes # (Auto) 0.5 0.0-1.0 X 10^3 Eosinophils # (Auto) 0.1 0.0-0.3 10^3/uL Basophils # (Auto) 0.0 0.0-0.1 10^3/uL Prothrombin Time 13.3 12.2-14.7 SEC INR Comment 1.0 0.8-1.4 Activated Partial Thromboplast Time 37 H 24-35 SEC Sodium Level 139 135-145 MMOL/L Potassium Level 4.2 3.6-5.0 MMOL/L Chloride Level 94 L 98-107 MMOL/L Carbon Dioxide Level 41 H 21-32 MMOL/L Anion Gap 4 L 5-14 MMOL/L Blood Urea Nitrogen 10 7-18 MG/DL Creatinine 0.97 0.60-1.30 MG/DL Estimat Glomerular Filtration Rate > 60 BUN/Creatinine Ratio 10 Glucose Level 112 H 70-105 MG/DL Calcium Level 9.7 8.5-10.1 MG/DL Corrected Calcium 9.5 8.5-10.1 MG/DL Magnesium Level 1.9 1.8-2.4 MG/DL Total Bilirubin 0.6 0.1-1.0 MG/DL Aspartate Amino Transf (AST/SGOT) 22 5-34 U/L Alanine Aminotransferase (ALT/SGPT) 21 0-55 U/L Alkaline Phosphatase 97 40-136 U/L Myoglobin 63.0 10.0-92.0 NG/ML Troponin I < 0.028 < 0.028 <0.028 NG/ML C-Reactive Protein High Sensitivity 0.10 0.00-0.50 MG/DL B-Type Natriuretic Peptide 31.2 <100.0 PG/ML Total Protein 7.0 6.4-8.2 GM/DL Albumin 4.3 3.2-4.5 GM/DL My Orders Orders - IRIS NELSON MD Aspirin Chewable Tablet (Baby Aspirin Ch (10/30/18 10:52) Cbc With Automated Diff (10/30/18 10:56) Magnesium (10/30/18 10:56) Chest 1 View, Ap/Pa Only (10/30/18 10:56) Ekg Tracing (10/30/18 10:56) Cardiac Profile 1 (10/30/18 10:56) Comprehensive Metabolic Panel (10/30/18 10:56) Myoglobin Serum (10/30/18 10:56) Protime With Inr (10/30/18 10:56) Partial Thromboplastin Time (10/30/18 10:56) O2 (10/30/18 10:56) Monitor-Rhythm Ecg Trace Only (10/30/18 10:56) Lipid Panel (10/31/18 06:00) Ed Iv/Invasive Line Start (10/30/18 10:56) BNP (10/30/18 10:56) Aspirin Chewable Tablet (Baby Aspirin Ch (10/30/18 11:00) Albuterol/Ipra Inhalation Soln (Duoneb I (10/30/18 11:00) Svn Small Volume Nebulizer (10/30/18 10:56) Hs C Reactive Protein (10/30/18 10:56) Albuterol Pre-Mix Nebs (Rt) (Proventil (10/30/18 11:47) Albuterol/Ipra Inhalation Soln (Duoneb I (10/30/18 12:00) Svn Small Volume Nebulizer (10/30/18 11:47) Svn Small Volume Nebulizer (10/30/18 11:47) Methylprednisolone Sod Succ (Solu-Medrol (10/30/18 12:00) Troponin I (10/30/18 12:50) Ekg Tracing (10/30/18 13:56) Medications Given in ED Current Medications Medications Dose Ordered Sig/Shira Route Start Time Stop Time Status Last Admin Dose Admin Albuterol/ Ipratropium 3 ml ONCE ONCE INH 10/30/18 11:00 10/30/18 11:01 DC 10/30/18 11:09 3 ML Albuterol/ Ipratropium 3 ml ONCE ONCE INH 10/30/18 12:00 10/30/18 12:01 DC 10/30/18 12:07 3 ML Aspirin 243 mg ONCE ONCE PO 10/30/18 11:00 10/30/18 11:01 DC 10/30/18 10:52 243 MG Methylprednisolone Sodium Succinate 125 mg ONCE ONCE IVP 10/30/18 12:00 10/30/18 12:01 DC 10/30/18 12:05 125 MG Vital Signs/I&O 10/30/18 10/30/18 10/30/18 10/30/18 10:35 10:35 10:35 11:09 Temp 97.4 Pulse 85 Resp 18 B/P (MAP) 144/89 (107) Pulse Ox 94 95 98 O2 Delivery Nasal Cannula Nasal Cannula Nasal Cannula Nasal Cannula O2 Flow Rate 4.00 4.0 4.00 4.00 10/30/18 12:08 Pulse Ox 99 O2 Delivery Nasal Cannula O2 Flow Rate 4.00 Blood Pressure Mean: 107 Progress Progress Note #1: Time: 11:50 Progress Note Patient reports some improvement in his discomfort with a DuoNeb treatment. Nitroglycerin has not been administered in the ER since he took multiple doses of nitroglycerin at cardiac rehabilitation without much improvement. The balance of his aspirin was given. Repeat auscultation of the chest reveals persistent tight wheezing and decreased air movement. I have ordered Solu- Medrol 125 mg IV and an hour-long nebulizer treatment. I have also ordered a repeat troponin for 2 hours after the initial. Progress Note #2: Time: 13:52 Progress Note Patient received Solu-Medrol and a one hour nebulizer treatment. He states improvement. Pain is now characterized as a squeezing or pressure rated as 4/10. On auscultation he has decreased wheezing and slightly improved air movement. Repeat troponin returned negative. I discussed the case with Dr. Carrion and reviewed patient's presentation, labs, and prior angiography. Dr. Carrion is agreeable to patient following up in the outpatient setting. I will repeat EKG to ensure no changes prior to dismissal. Progress Note #3: Time: 14:10 Progress Note Repeat EKG was unchanged from prior. Patient will be dismissed home for outpatient follow-up. Initial ECG Impression Date: October 30, 2018 Initial ECG Impression Time: 10:46 Initial ECG Rate: 71 Initial ECG Rhythm: Normal Sinus Initial ECG Impression: Normal Comment Sinus rhythm with no ST elevation or depression. Automated read states left anterior fascicular block. No axis deviation. EKG : EKG Time: 14:02 Rate: 74 Rhythm: Normal Sinus ECG Comparisson: Unchanged ECG Impression: Normal Comment Normal sinus rhythm with no ST elevation or depression. No dynamic changes from prior. Incomplete right bundle branch block. No axis deviation. Diagnostic Imaging Diagonstic Imaging: Xray Plain Films/CT/US/NM/MRI: chest Comments Chest x-ray viewed by me and report reviewed. See report below: NAME: WINTER PIEDRA MED REC#: [id number] PT STATUS: REG ER : 1955 PHYSICIAN: IRIS NELSON MD ADMIT DATE: 10/30/18/ER Draft Date of Exam:10/30/18 CHEST 1 VIEW, AP/PA ONLY Indication: Chest pain. Time of exam 11:28 AM Correlation is made with prior study from 08/20/2018. Changes of median sternotomy and CABG are noted. Right hemidiaphragm is chronically elevated. There is chronic blunting of right costophrenic angle. Lungs appear to be clear. The pulmonary vascularity is normal. No pneumothorax is seen. Impression: Stable chest since examination from 08/20/2018. Dictated on workstation # [id number] Dict: 10/30/18 1140 Trans: 10/30/18 1141 BANNER [id number] Interpreted by: KAVYA PAREDES MD Departure Impression Primary Impression: Chest pain Additional Impressions: COPD exacerbation CAD (coronary artery disease) Qualified Codes: I25.119 - Atherosclerotic heart disease of [place] coronary artery with unspecified angina pectoris Disposition: HOME, SELF-CARE Condition: Against Medical Advice Departure-Patient Inst. Decision time for Depature: 13:59 Referrals: BRANDON RODAS MD (PCP/Family) Primary Care Physician Patient Instructions: Chest Pain (DC) Add. Discharge Instructions: Follow-up with Dr. Carrion as soon as possible. Please call his office today to arrange a follow-up appointment. Please also follow up with Dr. Gray as soon as possible and call his office today for a follow-up appointment. Complete prednisone as prescribed from the ER and continue with inhaled treatments as previously prescribed. Return to the emergency room if you have worsening chest pain that does not improve with nitroglycerin 3 doses 2 minutes apart. Return to care if you have any other problems or concerns. You may take Tylenol (acetaminophen) up to 1000 mg every 6 hours as needed for pain. All discharge instructions reviewed with patient and/or family. Voiced understanding. Scripts Prednisone (Prednisone) 20 Mg Tab 40 MG PO DAILY, #8 TAB 0 Refills Prov: IRIS NELSON MD 10/30/18 Copy Copies To 1: JOSHUA CARRION MD Copies To 2: XIMENA GRAY JOSHUA T MD October 30, 2018 12:02
[2018-10-30] MEDS ORDERED: PRD20T PO (14:01)
[2018-10-30 14:26] VITALS: BP 144/82
== END 2018-10-30 14:26 | disposition home or self-care (01) ==
LOC: EDUNIT# 10:34 → ER 10:37
DX: R07.9 Chest pain, unspecified (principal); J44.1 Chronic obstructive pulmonary disease with (acute) exacerbation; I25.10 Atherosclerotic heart disease of native coronary artery without angina pectoris; I25.2 Old myocardial infarction; E78.00 Pure hypercholesterolemia, unspecified; I10 Essential (primary) hypertension; I73.9 Peripheral vascular disease, unspecified; K21.9 Gastro-esophageal reflux disease without esophagitis; F20.9 Schizophrenia, unspecified; F32.9 Major depressive disorder, single episode, unspecified; Z95.1 Presence of aortocoronary bypass graft; Z95.5 Presence of coronary angioplasty implant and graft; Z86.718 Personal history of other venous thrombosis and embolism; Z82.49 Family history of ischemic heart disease and other diseases of the circulatory system; Z87.19 Personal history of other diseases of the digestive system; Z86.73 Personal history of transient ischemic attack (TIA), and cerebral infarction without residual deficits; Z87.891 Personal history of nicotine dependence; Z88.8 Allergy status to other drugs, medicaments and biological substances; Z88.7 Allergy status to serum and vaccine; Z79.82 Long term (current) use of aspirin; Z79.02 Long term (current) use of antithrombotics/antiplatelets; Z79.51 Long term (current) use of inhaled steroids; Z79.52 Long term (current) use of systemic steroids; Z95.820 Peripheral vascular angioplasty status with implants and grafts; Z90.89 Acquired absence of other organs; Z98.890 Other specified postprocedural states; Z87.01 Personal history of pneumonia (recurrent)
CPT/HCPCS: 36415; 71045; 80053; 83735; 83874; 83880; 84484; 85025; 85610; 85730; 86141; 93005; 93041; 94640

== ENCOUNTER 2018-11-06 10:53 | Outpatient (RCR) | payer MEDICARE, MEDICAID | END 2018-11-10 | disposition home or self-care (01) | LOC: CR 10:53 | PROVIDERS: ATTEND Internal Medicine Cardiovascular Disease | DX: I20.8 Other forms of angina pectoris (principal) | CPT/HCPCS: 93798 ==

== ENCOUNTER → 2018-11-09 | Outpatient (CLI) | payer MEDICARE, MEDICAID ==
[~2018-11-09] MED LIST changes: +RT-ALBUTEROL SULF 2.5 MG/3 ML PRE-MIX VIAL INH ONE; +RT-ALBUTEROL SULF 2.5 MG/3 ML PRE-MIX VIAL ONE
== END ==
LOC: RT 15:18
PROVIDERS: ATTEND Nurse Practitioner Family
DX: J44.9 Chronic obstructive pulmonary disease, unspecified (principal); R06.02 Shortness of breath; R09.02 Hypoxemia; R06.2 Wheezing; F10.20 Alcohol dependence, uncomplicated; Z72.0 Tobacco use
CPT/HCPCS: 94060; 94726; 94729

== ENCOUNTER → 2018-11-17 | Outpatient (CLI) | payer MEDICARE, MEDICAID ==
[~2018-11-17] MED LIST changes: -RT-ALBUTEROL SULF 2.5 MG/3 ML PRE-MIX VIAL INH ONE; -RT-ALBUTEROL SULF 2.5 MG/3 ML PRE-MIX VIAL ONE
--- NOTE | 2018-11-17 21:27 | Diagnostic Imaging Report ---
EXAM: PET/CT INDICATION: Lung mass EXAMINATION: After intravenous administration of 12.51 mCi of F18-FDG, a series of overlapping emission and transmission PET images was obtained. In the coronal, transaxial and sagittal planes, the area imaged extended from the skull base through the upper thighs. COMPARISON: There are no prior PET/CT examinations available for comparison. CT low-dose lung cancer screening exam of 10/23/2018 noted a small _7 x 7 x 8 MM mixed solid partially cavitary nodule in the anterolateral aspect of the right upper lobe. There was also a stellate density in the lateral aspect of the left midlung measuring 14 x 13 x 9 MM. FINDINGS: On this exam, there is no hypermetabolic activity associated with either of the parenchymal lesions seen on the recent CT chest exam. Consequently, I do suspect that they are benign. I would concur with the recommendation that a followup CT low-dose lung cancer screening study be performed in 12 months for further study. However in the interval since the prior exam, an alveolar/interstitial infiltrate has developed along the anterior aspect of the left upper lobe. The maximum issue in this area is 1.5. I suspect that this is secondary to mild pneumonia/atelectasis. The lungs are otherwise generally clear. There is no other hypermetabolic activity to suggest the presence of neoplasm. There is a linear area of increased metabolic activity in the left supraclavicular region. This seems to conform to the musculature in this area. The maximum SUV is only 2.5. I suspect this finding is secondary to muscular activity and not to neoplasm. There is also generalized uptake within the thyroid gland. Uptake is also seen in the brain the heart the kidneys the bowel and bladder. These areas of uptake are felt to be physiologic in nature. The CT images fail to show any sign of an acute abnormality. There is a stent in the left common iliac artery. IMPRESSION: 1. The small parenchymal lesions involving the right upper lobe and left midlung seen on the recent CT exam are not hypermetabolic and consequently most likely benign. Recommendations as above. 2. There is no other hypermetabolic activity to suggest the presence of neoplasm. The linear activity in the left supraclavicular region is felt to be more likely due to muscular activity than to neoplasm. 3. The newly developed abnormal parenchymal density in the left upper lung is most likely secondary to mild pneumonia/atelectasis. Clinical followup is recommended. Dictated by: Dictated on workstation # [id number]
== END ==
LOC: RAD 08:21
PROVIDERS: ATTEND Nurse Practitioner Family
DX: J44.9 Chronic obstructive pulmonary disease, unspecified (principal); J98.4 Other disorders of lung; R91.8 Other nonspecific abnormal finding of lung field; F10.20 Alcohol dependence, uncomplicated; Z72.0 Tobacco use

== ENCOUNTER 2018-11-20 11:23 | Outpatient (RCR) | payer MEDICARE, MEDICAID | END 2018-12-11 | disposition home or self-care (01) | LOC: CR3 11:23 | PROVIDERS: ATTEND Internal Medicine Cardiovascular Disease | DX: Z29.8 Encounter for other specified prophylactic measures (principal) ==

== ENCOUNTER 2018-12-06 20:34 | Emergency (ER) | payer MEDICARE, MEDICAID ==
[~2018-12-06] VITALS: Ht 172.7 cm; Wt 78.9 kg
--- NOTE | 2018-12-06 20:37 | NUR ---
PATIENT ARRIVES VIA EMS FROM [facility] IN [place]. STABLE VITAL SIGNS UPON ARRIVAL. DUONEB IN PROCESS AT 6 LITERS VIA MASK, TOTAL OF 3 NITRO GIVEN, 1 BY FAMILY AND 2 BY EMS. ASA 324MG GIVEN BY EMS.
--- OUTSIDE RECORDS SUMMARY | 2018-12-06 20:40 | XMS REPORT ---
Author Author Migration, Doctor Organization [facility] Address Unknown Phone Unavailable Care Team Providers Care Consumer Analyst Name Role Phone Migration, Doctor Unavailable Unavailable PROBLEMS Unknown Problems ALLERGIES No Information ENCOUNTERS Encounter Location Date Diagnosis [facility] [address] [facility] [id number] [address] Jan, [facility] [address] [id number] [address] Jan, [facility] [address] [facility] [facility] [id number] [place] [address] Dec, IMMUNIZATIONS No Known Immunizations SOCIAL HISTORY Never Assessed REASON FOR VISIT [facility] [place] VITAL SIGNS MEDICATIONS Unknown Medications RESULTS No Results PROCEDURES No Known procedures INSTRUCTIONS MEDICATIONS ADMINISTERED No Known Medications
[2018-12-06 20:54] LABS: BASOPHILS % (AUTO) 0 % (0-10); EOSINOPHILS # (AUTO) 0.1 10^3/uL (0.0-0.3); EOSINOPHILS % (AUTO) 2 % (0-10); HEMATOCRIT 37 % (40-54); HEMOGLOBIN 11.3 G/DL (13.3-17.7); LYMPHOCYTES # (AUTO) 1.7 X 10^3 (1.0-4.0); LYMPHOCYTES % (AUTO) 26 % (12-44); MEAN CORPUSCULAR HEMOGLOBIN 29 PG (25-34); MEAN CORPUSCULAR HGB CONC 31 G/DL (32-36); MEAN CORPUSCULAR VOLUME 95 FL (80-99); MONOCYTES # (AUTO) 0.6 X 10^3 (0.0-1.0); MONOCYTES % (AUTO) 10 % (0-12); NEUTROPHILS # (AUTO) 4.1 X 10^3 (1.8-7.8); NEUTROPHILS % (AUTO) 63 % (42-75); PLATELET COUNT 168 10^3/uL (130-400); RED CELL DISTRIBUTION WIDTH 12.8 % (10.0-14.5); WHITE BLOOD COUNT 6.5 10^3/uL (4.3-11.0)
[2018-12-06 21:04] LABS: INR 0.9 (0.8-1.4); PROTHROMBIN TIME PATIENT 12.6 SEC (12.2-14.7)
[2018-12-06 21:15] LABS: ALANINE AMINOTRANSFERASE 18 U/L (0-55); ALKALINE PHOSPHATASE 83 U/L (40-136); AMYLASE 56 U/L (25-125); BILIRUBIN,TOTAL 0.3 MG/DL (0.1-1.0); BUN/CREATININE RATIO 10; CALCIUM 9.5 MG/DL (8.5-10.1); CARBON DIOXIDE 36 MMOL/L (21-32); CHLORIDE 96 MMOL/L (98-107); CREATININE SERUM 1.05 MG/DL (0.60-1.30); GFR ESTIMATED > 60; GLUCOSE 98 MG/DL (70-105); LIPASE 32 U/L (8-78); POTASSIUM 4.2 MMOL/L (3.6-5.0); SODIUM 143 MMOL/L (135-145); TOTAL PROTEIN 6.5 GM/DL (6.4-8.2)
[2018-12-06] MEDS ORDERED: KETOROLAC 30 MG/ML VIAL IVP ONE (21:30)
[2018-12-06] MEDS ORDERED: PANTOPRAZOLE 40 MG (PROTONIX) VIAL IV ONE (21:30)
--- NOTE | 2018-12-06 21:30 | NUR ---
TO ROOM TO CHECKON PATIENT, RESTING QUIETLY AT BEDSIDE, CALL LIGHT WITHIN REACH, WILL [id number] TO MONITOR.
--- NOTE | 2018-12-06 21:44 | Diagnostic Imaging Report ---
INDICATION: Chest pain. TIME OF EXAM: 8:59 p.m. COMPARISON: Correlation is made with prior study from 10/30/2018. EXAMINATION: Single view of the chest was obtained. FINDINGS: Changes in median sternotomy and CABG are noted. Right hemidiaphragm is chronically elevated. No infiltrate or failure is seen. There is no effusion or pneumothorax. IMPRESSION: Stable chest. No acute feature is detected. Dictated by: Dictated on workstation # [id number]
[2018-12-06] MEDS ORDERED: IOHEXOL 350 MG/ML 150 ML (OMNIPAQUE 350) VIAL IV ONE (22:00)
[2018-12-06] MEDS ORDERED: HOLD METFORMIN - RECEIVED CONTRAST 20 ML VIAL IV SCH (22:00)
[2018-12-06] MEDS ORDERED: NS 100 ML (IVPB) BAG IV ONE (22:00)
--- NOTE | 2018-12-06 22:15 | NUR ---
PATIENT RESTING QUIETLY, REMOTE FOR TV PROVIDED, DENIES ADDITIONAL NEEDS AT THIS TIME. WILL CONTINUE TO MONITOR
[2018-12-06 22:24] LABS: AMPHETAMINE SCREEN, URINE NEGATIVE (NEGATIVE); BARBITURATE SCREEN URINE NEGATIVE (NEGATIVE); BENZODIAZEPINES SCREEN URINE NEGATIVE (NEGATIVE); CANNABINOID SCREEN, URINE NEGATIVE (NEGATIVE); COCAINE SCREEN URINE NEGATIVE (NEGATIVE); METHADONE STAT NEGATIVE (NEGATIVE); METHAMPHETAMINE SCREEN URINE S NEGATIVE (NEGATIVE); OPIATE SCREEN URINE NEGATIVE (NEGATIVE); OXYCODONE STAT NEGATIVE (NEGATIVE); PROPOXYPHENE STAT NEGATIVE (NEGATIVE); TRICYCLIC ANTIDEPRESSANTS SCRE NEGATIVE (NEGATIVE)
--- NOTE | 2018-12-06 23:00 | ED Chest Pain ---
General Chief Complaint: Chest Pain Stated Complaint: CHEST PAIN Nursing Triage Note: at [facility] [place] [facility] [address] and started having chest pian. Nursing Sepsis Screen: No Definite Risk Source: patient, EMS, old records History of Present Illness Date Seen by Provider: Dec 06, 2018 Time Seen by Provider: 20:38 Initial Comments PT ARRIVES VIA POV FROM [facility] PT HAS BEEN OUT IN HEAT AT A [facility] SINCE 1300 TODAY--STATES HE WAS UNDER A "ALF" ALL DAY, SO IN THE "SHADE"--BUT TEMP IN UPPER 90'S TODAY WITH VERY HIGH HUMIDITY PT BEGAN HAVING CHEST PAIN AN HOUR AGO, WHILE SITTING PT TOOK 2 NTG AND REPORTEDLY PASSED OUT, AND "CAME TO" AFTER 45 MINUTES, WHEN FAMILY CALLED EMS--STATES NO RELIEF OF PAIN PT CONTINUES TO C/O CHEST PAIN--LEFT UPPER CHEST, RADIATES INTO JAW AND DOWN LEFT ARM EMS GAVE NTG X 1 WITHOUT RELIEF OF PAIN --RATES PAIN "7 /2" HAS CHRONIC SHORTNESS OF BREATH WITH COPD, AND WEARS O2 AT 4L/NC FABIAN NUOUSLY--EMS STARTED A DUONEB TREATMENT EN ROUTE--EMS REPORT THAT PT HAD WHEEZING IN UPPER LOBES AND WAS DIMINISHED IN LOWER LOBES PT HAS NOT HAD ANY BREATHING TREATMENTS OR INHALERS ALL DAY NO SWELLING IN LEGS/ FEET OR PAIN IN CALVES NO COUGH OR RECENT ILLNESS OR FEVER NO NAUSEA/VOMITING PT WITH KNOWN CAD AND PAD, AND HAS HAD CABG WITH CARDIAC STENTS X 4 PLUS ANGIOPLASTIES, AND STENT IN LEFT LEG IN THE PAST PT ALSO WITH COPD, WELL CHF PT HAS HAD A MULTITUDE OF VISITS HERE, MANY FOR THIS SAME COMPLAINT LAST CARDIAC CATH WAS 03/2018--SHOWED PATENT STENT IN PROXIMAL LAD TO FIRST DIAGONAL BRANCH, COMPLETE OCCLUSION OF MID LAD AND VEIN GRAFT TO LAD, WITH EF 45-50%--NO INTERVENTION WAS DONE AT THAT TIME, AND FINDINGS WERE SAME CATH DONE IN 2014 PCP: DR. RODAS, [facility] SEO ENGINEER: DR. CASTILLO Allergies and Home Medications Allergies Coded Allergies: budesonide (Verified Allergy, Severe, angioedema, 12/06/18) formoterol (Verified Allergy, Severe, angioedema, 12/06/18) tetanus toxoid, adsorbed (Verified Allergy, Mild, hives, 12/06/18) DOROTA Inhibitors (Verified Allergy, Unknown, Angioedema, 6/30/19) Home Medications Albuterol Sulfate 2.5 Mg/3 Ml Vial.neb, 2.5 MG NEB TID, (Reported) Albuterol Sulfate 1 Puff Puff, 2 PUFF IH PRN PRN for SHORTNESS OF BREATH, (Reported) 1 PUFF = 90 MCG Amlodipine Besylate 5 Mg Tablet, 5 MG PO DAILY, (Reported) Aripiprazole 30 Mg Tablet, 30 MG PO DAILY, (Reported) Aspirin 81 Mg Tablet.dr, 81 MG PO DAILY, (Reported) Atorvastatin Calcium 80 Mg Tablet, 80 MG PO DAILY, (Reported) Bupropion HCl 75 Mg Tablet, 75 MG PO DAILY, (Reported) Carvedilol 6.25 Mg Tablet, 6.25 MG PO BID, (Reported) Clopidogrel Bisulfate 75 Mg Tablet, 75 MG PO DAILY, (Reported) Fluticasone/Salmeterol 1 Each Blst.w.dev, 1 EACH IH DAILY, (Reported) Isosorbide Mononitrate 30 Mg Tab.er.24h, 15 MG PO DAILY, (Reported) TAKES 1/2 (30MG) TABLET Mirtazapine 30 Mg Tablet, 30 MG PO HS, (Reported) Montelukast Sodium 10 Mg Tablet, 10 MG PO DAILY, (Reported) Nitroglycerin 0.4 Mg Tab.subl, 0.4 MG PO UD PRN for CHEST PAIN, (Reported) [place] 3 Polyunsat Fatty Acids 1,000 Mg Cap, 1,000 MG PO DAILY, (Reported) Ranolazine 1,000 Mg Tab.er.12h, 1,000 MG PO BID, (Reported) Sertraline HCl 100 Mg Tablet, 100 MG PO DAILY, (Reported) Patient Home Medication List Home Medication List Reviewed: Yes Review of Systems Review of Systems Constitutional: weakness Respiratory: See HPI, Other (PT HAS RUL PULMONARY NODULE--HAD PET SCAN / CT DONE 11/17/18--BENIGN APPEARANCE; HAD STELLATE DENSITY IN LEFT MID LUNG--POSSIBLY MILD PNEUMONIA/ATELECTASIS) Cardiovascular: Chest Pain; Denies Edema; Syncope (ONLY AFTER HE TOOK 2 NTG) Gastrointestinal: No Symptoms Reported Genitourinary: No Symptoms Reported Musculoskeletal: see HPI Skin: no symptoms reported Psychiatric/Neurological: No Symptoms Reported Endocrine: No Symptoms Reported Hematologic/Lymphatic: No Symptoms Reported Past [id number] Hx Patient Social History Alcohol Use: Past History (HISTORY OF ABUSE, CLAIMS NONE FOR YEARS) Recreational Drug Use: No Smoking Status: Former Smoker (1 PPD, QUIT 12/2017) Type Used: Cigarettes Former Smoker, Quit: Dec 16, 2017 2nd Hand Smoke Exposure: Yes Recent Foreign Travel: No Contact w/Someone Who Travel: No Recent Infectious Disease Expo: No Recent Hopitalizations: No Immunizations Up To Date Tetanus Booster (TDap): Unknown PED Vaccines UTD: No Date of Pneumonia Vaccine: Mar 23, 2013 Date of Influenza Vaccine: Jul 31, 2017 Seasonal Allergies Seasonal Allergies: No Past Medical History Surgeries: Yes (1 VESSEL CABG, MULTIPLE CARDIAC CATHS WITH CARDIAC STENTS X 4; LEFT LEG STENT 02/2017; RIGHT INGUINAL HERNIA REPAIR) Abdominal, Cardiac, CABG, Coronary Stent, Tonsillectomy, Vascular Surgery Respiratory: Yes (WEARS O2 AT 4L/NC CONTINUOUSLY. RUL PULMONARY NODULE) Pneumonia, Chronic Bronchitis, COPD Currently Using CPAP: No Currently Using BIPAP: No Cardiac: Yes (CAROTID DISEASE--SEVERE ON RIGHT; CARDIAC ARREST; + 4 CARDIAC STENTS PLUS ANGIOPLASTIES; STENT X 1 IN LEFT LEG ; CHF) Coronary Artery Disease, Deep Vein Thrombosis, Heart Attack, High Cholesterol, Hypertension, Peripheral Vascular Neurological: Yes Stroke Reproductive Disorders: No Sexually Transmitted Disease: No HIV/AIDS: No Genitourinary: No Gastrointestinal: Yes Gastroesophageal Reflux, Ulcer Musculoskeletal: Yes Arthritis Endocrine: No HEENT: No Loss of Vision: Denies Hearing Impairment: Denies Cancer: No Psychosocial: Yes Sleep Difficulties, Anxiety, Schizophrenia, Depression Integumentary: No Blood Disorders: No Adverse Reaction/Blood Tranf: No Family Medical History Diabetes mellitus 19 MOTHER FH: heart disease 19 FATHER Heart Disease, Diabetes Physical Exam Vital Signs Vital Signs - First Documented Capillary Refill : Less Than 3 Seconds Height, Weight, BMI Height: 5'8.00" Weight: 174lbs. 0.0oz. [id number]; 24.3 BMI Method:Stated General Appearance: No Apparent Distress, WD/WN, Other (MILDLY LETHARGIC, KEEPS EYES CLOSED, FREQUENT LIP LICKING, DIRTY/UNKEMPT ) HEENT: Other (EDENTULOUS) Respiratory: No Accessory Muscle Use, No Respiratory Distress, Rales (? FAINT RALES IN BASES ? ); No Wheezing Cardiovascular: Regular Rate, Rhythm, No Edema, No JVD, No Murmur, Normal Peripheral Pulses Extremity: Normal Capillary Refill, Normal Inspection, Normal Range of Motion, Non Tender, No Calf Tenderness, No Pedal Edema Neurologic/Psychiatric: Alert, Oriented x3, No Motor/Sensory Deficits, Normal Mood/Affect, oriental medicine practitioner II-XII Norm as Tested Skin: Normal Color, Warm/Dry, Tattoos/Piercings (TATTOOS) Progress/Results/Core Measures Results/Orders Lab Results Laboratory Tests Test 12/06/18 20:37 12/06/18 22:10 12/06/18 23:40 Range/Units White Blood Count 6.5 4.3-11.0 10^3/uL Red Blood Count 3.87 L 4.35-5.85 10^6/uL Hemoglobin 11.3 L 13.3-17.7 G/DL Hematocrit 37 L 40-54 % Mean Corpuscular Volume 95 80-99 FL Mean Corpuscular Hemoglobin 29 25-34 PG Mean Corpuscular Hemoglobin Concent 31 L 32-36 G/DL Red Cell Distribution Width 12.8 10.0-14.5 % Platelet Count 168 130-400 10^3/uL Mean Platelet Volume 10.0 7.4-10.4 FL Neutrophils (%) (Auto) 63 42-75 % Lymphocytes (%) (Auto) 26 12-44 % Monocytes (%) (Auto) 10 0-12 % Eosinophils (%) (Auto) 2 0-10 % Basophils (%) (Auto) 0 0-10 % Neutrophils # (Auto) 4.1 1.8-7.8 X 10^3 Lymphocytes # (Auto) 1.7 1.0-4.0 X 10^3 Monocytes # (Auto) 0.6 0.0-1.0 X 10^3 Eosinophils # (Auto) 0.1 0.0-0.3 10^3/uL Basophils # (Auto) 0.0 0.0-0.1 10^3/uL Prothrombin Time 12.6 12.2-14.7 SEC INR Comment 0.9 0.8-1.4 Activated Partial Thromboplast Time 34 24-35 SEC Sodium Level 143 135-145 MMOL/L Potassium Level 4.2 3.6-5.0 MMOL/L Chloride Level 96 L 98-107 MMOL/L Carbon Dioxide Level 36 H 21-32 MMOL/L Anion Gap 11 5-14 MMOL/L Blood Urea Nitrogen 11 7-18 MG/DL Creatinine 1.05 0.60-1.30 MG/DL Estimat Glomerular Filtration Rate > 60 BUN/Creatinine Ratio 10 Glucose Level 98 70-105 MG/DL Calcium Level 9.5 8.5-10.1 MG/DL Corrected Calcium 9.5 8.5-10.1 MG/DL Magnesium Level 2.0 1.8-2.4 MG/DL Total Bilirubin 0.3 0.1-1.0 MG/DL Aspartate Amino Transf (AST/SGOT) 17 5-34 U/L Alanine Aminotransferase (ALT/SGPT) 18 0-55 U/L Alkaline Phosphatase 83 40-136 U/L Myoglobin 55.1 10.0-92.0 NG/ML Troponin I 0.033 H < 0.028 <0.028 NG/ML B-Type Natriuretic Peptide 25.3 <100.0 PG/ML Total Protein 6.5 6.4-8.2 GM/DL Albumin 4.0 3.2-4.5 GM/DL Amylase Level 56 25-125 U/L Lipase 32 8-78 U/L Serum Alcohol < 10 <10 MG/DL Urine Opiates Screen NEGATIVE NEGATIVE Urine Oxycodone Screen NEGATIVE NEGATIVE Urine Methadone Screen NEGATIVE NEGATIVE Urine Propoxyphene Screen NEGATIVE NEGATIVE Urine Barbiturates Screen NEGATIVE NEGATIVE Ur Tricyclic Antidepressants Screen NEGATIVE NEGATIVE Urine Phencyclidine Screen NEGATIVE NEGATIVE Urine Amphetamines Screen NEGATIVE NEGATIVE Urine Methamphetamines Screen NEGATIVE NEGATIVE Urine Benzodiazepines Screen NEGATIVE NEGATIVE Urine Cocaine Screen NEGATIVE NEGATIVE Urine Cannabinoids Screen NEGATIVE NEGATIVE My Orders Orders - FRANCISCA,DEBBIE K DO Cbc With Automated Diff (12/06/18 20:45) Magnesium (12/06/18 20:45) Chest 1 View, Ap/Pa Only (12/06/18 20:45) Ekg Tracing (12/06/18 20:45) Cardiac Profile 1 (12/06/18 20:45) Comprehensive Metabolic Panel (12/06/18 20:45) Myoglobin Serum (12/06/18 20:45) Protime With Inr (12/06/18 20:45) Partial Thromboplastin Time (12/06/18 20:45) O2 (12/06/18 20:45) Monitor-Rhythm Ecg Trace Only (12/06/18 20:45) Ed Iv/Invasive Line Start (12/06/18 20:45) Lipase (12/06/18 20:45) Amylase (12/06/18 20:45) BNP (12/06/18 20:45) Ketorolac Injection (Toradol Injection) (12/06/18 21:30) Ct Angio Chest W (12/06/18 21:23) Pantoprazole Injection (Protonix Injecti (12/06/18 21:30) Alcohol (12/06/18 21:26) Drug Screen Stat (Urine) (12/06/18 21:26) Iohexol Injection (Omnipaque 350 Mg/Ml 1 (12/06/18 22:00) Received Contrast (Hold Metformin- Contr (12/06/18 22:00) Ns (Ivpb) (Sodium Chloride 0.9% Ivpb Bag (12/06/18 22:00) Troponin I (12/06/18 23:23) Ekg Tracing (12/06/18 23:23) Methylprednisolone Sod Succ (Solu-Medrol (12/06/18 23:30) Medications Given in ED Current Medications Medications Dose Ordered Sig/Shira Route Start Time Stop Time Status Last Admin Dose Admin Iohexol 150 ml ONCE ONCE IV 12/06/18 22:00 12/06/18 22:01 DC 12/06/18 21:51 125 ML Ketorolac Tromethamine 30 mg ONCE ONCE IVP 12/06/18 21:30 12/06/18 21:31 DC 12/06/18 21:39 30 MG Methylprednisolone Sodium Succinate 125 mg ONCE ONCE IVP 12/06/18 23:30 12/06/18 23:31 DC 12/06/18 23:45 125 MG Pantoprazole 40 mg ONCE ONCE IV 12/06/18 21:30 12/06/18 21:31 DC 12/06/18 21:39 40 MG Sodium Chloride 100 ml ONCE ONCE IV 12/06/18 22:00 12/06/18 22:01 DC 12/06/18 21:51 80 ML Vital Signs/I&O 12/06/18 12/06/18 12/06/18 12/06/18 20:37 20:37 20:37 21:00 Temp 97.5 Pulse 92 Resp 26 B/P (MAP) 144/88 (106) Pulse Ox 100 100 99 O2 Delivery OxyMask OxyMask Nasal Cannula O2 Flow Rate 10.00 6.00 6.0 4.00 12/07/18 00:35 Pulse 82 Resp 14 B/P (MAP) 132/79 (96) Pulse Ox 100 O2 Delivery Nasal Cannula O2 Flow Rate 4.00 12/07/18 00:00 Intake Total 1000 ml Balance 1000 ml Blood Pressure Mean: 106 Progress Progress Note : Progress Note GIVEN NEB TREATMENT WITH IMPROVMENT IN LUNG SOUNDS AND NO C/O SHORTNESS OF BREATH PAIN SIGNIFICANTLY IMPROVED WITH TORADOL PAIN RESOLVED AT TIME OF DISMISSAL PT FEELS COMFORTABLE GOING HOME. Initial ECG Impression Date: Dec 06, 2018 Initial ECG Impression Time: 20:44 Initial ECG Rate: 91 Initial ECG Rhythm: Normal Sinus Initial ECG Impression: Nonspecific Changes (UNCHANGED FROM PREVIOUS) Initial ECG Comparisson: Unchanged EKG : EKG Time: 23:39 Rate: 75 Rhythm: Normal Sinus ECG Comparisson: Unchanged Diagnostic Imaging Comments CXR--NO ACUTE PROCESS CT CHEST ANGIOGRAM--NO ACUTE PROCESS, NO P.E. RUL PULMONARY NODULE--PER [facility] VIA FAX AT [id number] Reviewed: Reviewed by [facility] Departure Communication (Admissions) 2113--SPOKE WITH DR. CASTILLO, HE ADVISES TO DO 3 HOUR RULE OUT IN ER AND IF NEGATIVE AND PT IS SYMPTOM-FREE, HE CAN BE DISMISSED AND FOLLOW UP IN OFFICE PT IS VERY AGREEABLE TO THIS PLAN Impression Primary Impression: Chest pain Additional Impression: COPD (chronic obstructive pulmonary disease) Disposition: 01 HOME, SELF-CARE Condition: Improved Departure-Patient Inst. Referrals: JOSHUA CASTILLO MD, WEN-CHOU MD (PCP/Family) Primary Care Physician Patient Instructions: Angina (DC), Chest Pain (DC), Chronic Obstructive Pulmonary Disease (COPD), Including Emphysema Add. Discharge Instructions: HOME, REST KEEP COOL USE YOUR NEBULIZER EVERY 4 [address] FOLLOW UP WITH DR. CASTILLO IN 1-2 DAYS FOR FURTHER CARE RETURN TO ER IF WORSE All discharge instructions reviewed with patient and/or family. Voiced understanding. DEBBIE ESPINOSA DO Dec 06, 2018 23:00
[2018-12-06] MEDS ORDERED: methylPREDNISolone 125 MG (Solu-MEDROL) VIAL IVP ONE (23:30)
[2018-12-07 00:35] VITALS: BP 132/79
--- NOTE | 2018-12-07 05:30 | Diagnostic Imaging Report ---
PROCEDURE: CT angiography of the chest with contrast. TECHNIQUE: Multiple contiguous axial images were obtained through the chest after uneventful bolus administration of intravenous contrast. 2D reconstructed CTA MIP acquisitions were also performed. Auto Exposure Controls were utilized during the CT exam to meet ALARA standards for radiation dose reduction. INDICATION: Chest pain. Evaluate for pulmonary embolism. COMPARISONS: Chest CT performed on 10/23/2018. FINDINGS: CT ANGIOGRAM: No pulmonary embolism. Normal caliber pulmonary arteries. No acute aortic abnormality seen on this study performed without cardiac gating. TRACHEA AND MAIN BRONCHI: Patent without evidence of tracheal or endobronchial lesion. LUNGS AND PLEURA: Mild dependent subsegmental atelectasis. No consolidation or pulmonary mass. Unchanged 5 mm pulmonary nodule with lucent centered in the right upper lobe. There is also unchanged linear somewhat spiculated nodular density in the left lower lobe adjacent to the major fissure, likely representing scarring. No pleural effusion or pneumothorax. MEDIASTINUM AND ROGER: Visualized thyroid gland is normal. No mediastinal or hilar lymphadenopathy. Esophagus is nondistended. HEART AND VESSELS: Mild cardiomegaly. No pericardial effusion. Atherosclerotic calcification involves the aorta and its branches, including the coronary arteries. Thoracic aorta is nonaneurysmal. Patient is status post CABG. DIAPHRAGM AND UPPER ABDOMEN: Unremarkable. CHEST WALL: Unremarkable. BONES: Multilevel degenerative changes involve the spine. Compression deformities involving multiple mid thoracic vertebral bodies, unchanged. No acute osseous abnormality. IMPRESSION: No evidence of pulmonary embolism. No acute chest disease. As previously recommended on 11/02/2018 CT scan, continued annual lung cancer screening is recommended. Findings are in agreement with initial teleradiology report. Dictated by: Dictated on workstation # [id number]
== END 2018-12-07 00:35 | disposition home or self-care (01) ==
LOC: EDUNIT# 20:34 → ER 20:36
DX: J44.9 Chronic obstructive pulmonary disease, unspecified (principal); R07.9 Chest pain, unspecified; I25.10 Atherosclerotic heart disease of native coronary artery without angina pectoris; I73.9 Peripheral vascular disease, unspecified; I11.0 Hypertensive heart disease with heart failure; I50.9 Heart failure, unspecified; I25.2 Old myocardial infarction; E78.00 Pure hypercholesterolemia, unspecified; K21.9 Gastro-esophageal reflux disease without esophagitis; F20.9 Schizophrenia, unspecified; F32.9 Major depressive disorder, single episode, unspecified; F41.9 Anxiety disorder, unspecified; Z86.73 Personal history of transient ischemic attack (TIA), and cerebral infarction without residual deficits; Z86.718 Personal history of other venous thrombosis and embolism; Z87.01 Personal history of pneumonia (recurrent); Z90.89 Acquired absence of other organs; Z87.891 Personal history of nicotine dependence; Z79.51 Long term (current) use of inhaled steroids; Z79.82 Long term (current) use of aspirin; Z95.1 Presence of aortocoronary bypass graft; Z95.5 Presence of coronary angioplasty implant and graft; Z99.81 Dependence on supplemental oxygen; Z88.7 Allergy status to serum and vaccine; Z88.8 Allergy status to other drugs, medicaments and biological substances; Z82.49 Family history of ischemic heart disease and other diseases of the circulatory system
CPT/HCPCS: 36415; 71045; 71275; 80053; 80306; 80320; 82150; 83690; 83735; 83874; 83880; 84484; 85025; 85610; 85730; 93005; 93041

== ENCOUNTER → 2019-02-11 | Outpatient (CLI) | payer MEDICARE, MEDICAID ==
--- NOTE | 2019-02-11 13:25 | Diagnostic Imaging Report ---
PROCEDURE: MR imaging cervical spine without contrast. TECHNIQUE: Multiplanar, multisequence MR imaging of the cervical spine was performed without contrast. INDICATION: Right shoulder pain. COMPARISON: No prior MRI of the cervical spine is available for comparison. FINDINGS: Curvature of the cervical spine is normal. There is minimal retrolisthesis of C3 on C4 and C4 on C5 as well as C5 on C6. Vertebral body marrow signal is unremarkable apart from reactive changes in the marrow at the C3 and C4 levels. There is significant multilevel degenerative disc disease with multilevel disc space narrowing and desiccation as well as marginal osteophyte formation. There is minimal increased signal noted within the cervical spinal cord at the C3-C4 level. This is consistent with minimal cord edema, likely from spinal stenosis. No abnormal thinning or expansion of the cord is identified. Signal intensity throughout the remainder of the cervical spinal cord is normal. Craniocervical junction is unremarkable. C2-C3: Broad-based disc/osteophyte complex indents the ventral thecal sac. Central canal remains patent. Neuroforamina are patent. C3-C4: Broad-based disc/osteophyte complex indents the ventral thecal sac. There is moderate central canal stenosis. The disc/osteophyte complex indents the spinal cord where there is underlying minimal increased T2 signal within the spinal cord described above. There is significant bilateral neural foraminal stenosis as well. C4-C5: Broad-based disc/osteophyte complex indents the ventral thecal sac producing mild central canal narrowing. There is significant bilateral neural foraminal stenosis. C5-C6: Central canal is patent. Uncovertebral joint degenerative change does result in severe right and moderate left neural foraminal stenosis. C6-C7: Endplate osteophytes indent the ventral thecal sac but central canal is patent. Uncovertebral joint degenerative change results in right-sided neural foraminal stenosis, moderate to severe. Left neural foramen is patent. C7-T1: Central canal is patent. Neural foramina appear patent. Paraspinous tissues are unremarkable. IMPRESSION: Multilevel cervical spondylosis with multilevel central canal and neural foraminal stenosis described level by level above. Central stenosis is most severe at the C3-C4 level, as described. There is minimal underlying cord edema at this level likely from cord impingement from endplate osteophytes. No other significant abnormality is seen. Dictated by: Dictated on workstation # [id number]
== END ==
LOC: RAD 11:47
PROVIDERS: ATTEND Nurse Practitioner
DX: M47.22 Other spondylosis with radiculopathy, cervical region (principal); M48.02 Spinal stenosis, cervical region; M25.78 Osteophyte, vertebrae
CPT/HCPCS: 72141

== ENCOUNTER 2019-04-16 21:09 | Inpatient (IN) | payer MEDICARE, MEDICAID ==
[~2019-04-16] VITALS: Ht 172.7 cm; Wt 84.0 kg
[2019-04-16 21:24] LABS: BASOPHILS % (AUTO) 0 % (0-10); EOSINOPHILS # (AUTO) 0.1 10^3/uL (0.0-0.3); EOSINOPHILS % (AUTO) 3 % (0-10); HEMATOCRIT 37 % (40-54); HEMOGLOBIN 10.6 G/DL (13.3-17.7); LYMPHOCYTES # (AUTO) 1.4 X 10^3 (1.0-4.0); LYMPHOCYTES % (AUTO) 27 % (12-44); MEAN CORPUSCULAR HEMOGLOBIN 29 PG (25-34); MEAN CORPUSCULAR HGB CONC 29 G/DL (32-36); MEAN CORPUSCULAR VOLUME 99 FL (80-99); MEAN PLATELET VOLUME 10.1 FL (7.4-10.4); MONOCYTES # (AUTO) 0.5 X 10^3 (0.0-1.0); MONOCYTES % (AUTO) 10 % (0-12); NEUTROPHILS # (AUTO) 3.1 X 10^3 (1.8-7.8); NEUTROPHILS % (AUTO) 60 % (42-75); PLATELET COUNT 125 10^3/uL (130-400); RED CELL DISTRIBUTION WIDTH 12.9 % (10.0-14.5); WHITE BLOOD COUNT 5.1 10^3/uL (4.3-11.0)
[2019-04-16] MEDS ORDERED: NITROGLYCERIN 2% OINT 1 GM UNIT DOSE PACKET TOP ONE (21:30)
[2019-04-16 21:33] LABS: INR 1.1 (0.8-1.4); PROTHROMBIN TIME PATIENT 14.3 SEC (12.2-14.7)
--- NOTE | 2019-04-16 21:43 | Diagnostic Imaging Report ---
PATIENT HISTORY: Chest pain. TECHNIQUE: Single frontal view of the chest. COMPARISON: 12/06/2018. FINDINGS: Stable elevation of the right hemidiaphragm. Right basilar atelectasis is present. No focal consolidation or pulmonary mass. The heart size is prominent. Post-CABG changes are noted. A small right pleural effusion is seen. No pneumothorax. No acute osseous abnormality. IMPRESSION: 1. Small right pleural effusion with right basilar atelectasis. 2. Cardiomegaly with post-CABG changes noted. Dictated by: Dictated on workstation # [id number]
[2019-04-16 21:49] LABS: ALANINE AMINOTRANSFERASE 17 U/L (0-55); ALBUMIN 3.9 GM/DL (3.2-4.5); ALKALINE PHOSPHATASE 94 U/L (40-136); AMYLASE 48 U/L (25-125); BILIRUBIN,TOTAL 0.2 MG/DL (0.1-1.0); BUN/CREATININE RATIO 13; CALCIUM 9.3 MG/DL (8.5-10.1); CARBON DIOXIDE 36 MMOL/L (21-32); CHLORIDE 94 MMOL/L (98-107); CREATINE KINASE 74 U/L (30-200); GFR ESTIMATED > 60; GLUCOSE 131 MG/DL (70-105); LIPASE 23 U/L (8-78); MAGNESIUM 1.8 MG/DL (1.6-2.4); POTASSIUM 4.6 MMOL/L (3.6-5.0); SODIUM 143 MMOL/L (135-145); TOTAL PROTEIN 6.6 GM/DL (6.4-8.2)
--- NOTE | 2019-04-16 21:56 | ED Chest Pain ---
General Chief Complaint: Chest Pain Stated Complaint: CP Nursing Triage Note: LEFT CHEST WALL PAIN SINCE 1999 Nursing Sepsis Screen: No Definite Risk Source: patient History of Present Illness Date Seen by Provider: Apr 16, 2019 Time Seen by Provider: 21:12 Initial Comments PT ARRIVES VIA EMS FROM HOME C/O MID CHEST PAIN SINCE 1999 TONIGHT, BEGAN WHILE LAYING DOWN NO RADIATION OF PAIN NO SHORTNESS OF BREATH C/O NAUSEA AND VOMITED X 1--ATE [facility] FOR DINNER C/O LIGHTHEADEDNESS C/O SWELLING TO LEGS-MORE ON RIGHT NO SWEATS NO PALPITATIONS NO SYNCOPE RATES PAIN 8/10 NOTHING WORSENS OR IMPROVES PAIN TOOK NTG X 1 AT HOME, AND EMS GAVE NTG X 1 --NO RELIEF PT HAD 324 MG ASPIRIN PRIOR TO ARRIVAL HAS EXTENSIVE CARDIOVASCULAR HISTORY, AND HAS HAD A MULTITUDE OF VISITS HERE FOR THIS SAME COMPLAINT PT HAS CAD AND PAD AND CAROTID DISEASE--HAS HAD CABG AND CARDIAC STENTS X 4, PLUS ANGIOPLASTIES. HAS ALSO HAD A STENT IN LEFT LEG PT ALSO HAS HISTORY OF CHF AND COPD PT IS SUPPOSED TO BE ON HOME O2 AT 5L/NC CONTINUOUSLY, PT ARRIVES TO ER WITHOUT ANY O2 LAST NEB TREATMENT WAS AT 1300 TODAY HAS HAD SLIGHT NON-PRODUCTIVE COUGH NO FEVER LAST CARDIAC CATH WAS 03/2018--SHOWED PATENT STENT IN PROXIMAL LAD/FIRST DIAGONAL BRANCH, WITH COMPLETE OCCLUSION OF MID LAD AND VEIN GRAFT TO LAD, WITH EF OF 45-50%--NO INTERVENTION WAS DONE AT THAT TIME, AND FINDINGS WERE SAME CATH DONE IN 2014. PT IS ON ASPIRIN, PLAVIX, COREG, RANEXA, IMDUR, AND AMLODIPINE, IN ADDITION TO MULTIPLE OTHER MEDICATIONS PT DENIES ANY MISSED DOSES OF MEDICATIONS, AND DENIES ANY MEDICATION CHANGES. PCP: DR. FERNANDEZ AT [facility] SECRETARY: DR. CASTILLO PROFESSOR OF LEGAL STUDIES: DR. QUINONES Allergies and Home Medications Allergies Coded Allergies: budesonide (Verified Allergy, Severe, angioedema, 12/06/18) formoterol (Verified Allergy, Severe, angioedema, 12/06/18) tetanus toxoid, adsorbed (Verified Allergy, Mild, hives, 12/06/18) DOROTA Inhibitors (Verified Allergy, Unknown, Angioedema, 12/06/18) Home Medications Albuterol Sulfate 2.5 Mg/3 Ml Vial.neb, 2.5 MG NEB TID, (Reported) Albuterol Sulfate 1 Puff Puff, 2 PUFF IH PRN PRN for SHORTNESS OF BREATH, (Reported) 1 PUFF = 90 MCG Amlodipine Besylate 5 Mg Tablet, 5 MG PO DAILY, (Reported) Aripiprazole 30 Mg Tablet, 30 MG PO DAILY, (Reported) Aspirin 81 Mg Tablet.dr, 81 MG PO DAILY, (Reported) Atorvastatin Calcium 80 Mg Tablet, 80 MG PO DAILY, (Reported) Bupropion HCl 75 Mg Tablet, 75 MG PO DAILY, (Reported) Carvedilol 6.25 Mg Tablet, 6.25 MG PO BID, (Reported) Clopidogrel Bisulfate 75 Mg Tablet, 75 MG PO DAILY, (Reported) Fluticasone/Salmeterol 1 Each Blst.w.dev, 1 EACH IH DAILY, (Reported) Isosorbide Mononitrate 30 Mg Tab.er.24h, 15 MG PO DAILY, (Reported) TAKES 1/2 (30MG) TABLET Mirtazapine 30 Mg Tablet, 30 MG PO HS, (Reported) Montelukast Sodium 10 Mg Tablet, 10 MG PO DAILY, (Reported) Nitroglycerin 0.4 Mg Tab.subl, 0.4 MG PO UD PRN for CHEST PAIN, (Reported) [place] 3 Polyunsat Fatty Acids 1,000 Mg Cap, 1,000 MG PO DAILY, (Reported) Ranolazine 1,000 Mg Tab.er.12h, 1,000 MG PO BID, (Reported) Sertraline HCl 100 Mg Tablet, 100 MG PO DAILY, (Reported) Patient Home Medication List Home Medication List Reviewed: Yes Review of Systems Review of Systems Constitutional: see HPI; No chills, No diaphoresis; dizziness; No fever Respiratory: See HPI; Denies Cough, Denies Orthopnea; Shortness of Air Cardiovascular: See HPI, Chest Pain, Edema; Denies Irregular Heart Rate; Lightheadedness; Denies Palpitations, Denies Syncope Gastrointestinal: See HPI; Denies Abdominal Pain; Nausea, Vomiting Genitourinary: No Symptoms Reported Musculoskeletal: no symptoms reported; No back pain Skin: no symptoms reported Psychiatric/Neurological: No Symptoms Reported Endocrine: No Symptoms Reported Hematologic/Lymphatic: No Symptoms Reported Past [place]ouao-Filurl-Lgmnxd Hx Past Med/Social Hx: Reviewed and Corrections made Patient Social History Alcohol Use: Past History (HISTORY OF ABUSE, CLAIMS NONE FOR YEARS) Recreational Drug Use: No Smoking Status: Former Smoker (06/10 PPD) Type Used: Cigarettes (1 1/2 PPD) Former Smoker, Quit: Dec 16, 2017 2nd Hand Smoke Exposure: Yes Recent Foreign Travel: No Contact w/Someone Who Travel: No Recent Infectious Disease Expo: No Recent Hopitalizations: No Physical Abuse: No Sexual Abuse: No Mistreated: No Fear: No Immunizations Up To Date Tetanus Booster (TDap): Unknown PED Vaccines UTD: No Date of Pneumonia Vaccine: Mar 23, 2013 Date of Influenza Vaccine: Jul 31, 2017 Seasonal Allergies Seasonal Allergies: No Past Medical History Surgeries: Yes (1 VESSEL CABG; MULTIPLE CARDIAC CATHS WITH STENTS X 4 IN HEART, AND STENT X 1 IN LEFT LEG 02/2017--LAST CATH 03/2018--NO INTERVENTION; RIGHT INGUINAL HERNIA REPAIR; ) Abdominal, Cardiac, CABG, Coronary Stent, Tonsillectomy, Vascular Surgery Respiratory: Yes (WEARS O2 AT 5L/NC CONTINUOUSLY. RUL PULMONARY NODULE) Pneumonia, Chronic Bronchitis, COPD Currently Using CPAP: No Currently Using BIPAP: No Cardiac: Yes (S/P 1 VESSEL CABG; MULTIPLE CARDIAC CATHS WITH STENTS X 4 IN HEART PLUS ANGIOPLASTIES AND STENT X 1 IN LEFT LEG 02/2017; LAST CATH 2017--PATENT STENT TO PROXIMAL LAD TO FIRST DIAGONAL, COMPLETE OCCLUSION TO MID LAD AND TO VEIN GRAFT TO LAD; EFT 45-50%--NO INTERVENTION DONE AT THAT TIME AND FINDINGS THE SAME CATH DONE IN 2014; CHF; CAROTID DISEASE--SEVERE ON RIGHT; CARDIAC ARREST; ) Coronary Artery Disease, Deep Vein Thrombosis, Heart Attack, High Cholesterol, Hypertension, Peripheral Vascular Neurological: Yes Stroke Reproductive Disorders: No Sexually Transmitted Disease: No HIV/AIDS: No Genitourinary: No Gastrointestinal: Yes Gastroesophageal Reflux, Ulcer Musculoskeletal: Yes Arthritis, Chronic Back Pain Endocrine: No HEENT: No Loss of Vision: Denies Hearing Impairment: Denies Cancer: No Psychosocial: Yes Sleep Difficulties, Anxiety, Schizophrenia, Depression Integumentary: No Blood Disorders: No Adverse Reaction/Blood Tranf: No Family Medical History Diabetes mellitus 19 MOTHER FH: heart disease 19 FATHER Heart Disease, Diabetes Physical Exam Vital Signs Capillary Refill : Less Than 3 Seconds Height, Weight, BMI Height: 5'8.00" Weight: 174lbs. 0.0oz. 78.308618ea; 27.00 BMI Method:Stated General Appearance: No Apparent Distress, WD/WN HEENT: PERRL/EOMI, Other (EDENTULOUS) Neck: Full Range of Motion, Normal Inspection, Non Tender, Supple; No Carotid Bruit, No JVD Respiratory: Chest Non Tender, No Accessory Muscle Use, No Respiratory Distress, Wheezing Cardiovascular: Regular Rate, Rhythm, No JVD, No Murmur, Normal Peripheral Pulses Gastrointestinal: Non Tender, Soft Extremity: Normal Capillary Refill, Normal Range of Motion, Non Tender, No Calf Tenderness, No Pedal Edema, Pedal Edema (TRACE BILATERALLY) Neurologic/Psychiatric: Alert, Oriented x3, No Motor/Sensory Deficits, Normal Mood/Affect, 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 DID DEVELOP SOME NAUSEA--RESOLVED WITH ZOFRAN. Initial ECG Impression Date: Apr 16, 2019 Initial ECG Impression Time: 21:44 Initial ECG Rate: 92 Initial ECG Rhythm: Normal Sinus (MUCH ARTIFACT/VERY LIMITED STUDY. LEAFB.) Initial ECG Comparisson: Unchanged Diagnostic Imaging Comments CXR--SMALL RIGHT PLEURAL EFFUSION AND RIGHT BASILAR ATELECTASIS, WITH MILD CARDIOMEGALY AND POST OP CHANGES, PER RADIOLOGIST REPORT AT 2147 Reviewed: Reviewed by Me Departure Communication (Admissions) 2210--SPOKE WITH DR. TOLENTINO, ACCEPTS PT FOR ADMIT. Impression Primary Impression: Chest pain Additional Impressions: COPD exacerbation HX OF CAD WITH CABG AND STENTS RIGHT PLEURAL EFFUSION/ATELECTASIS/INFILTRATE Disposition: 09 ADMITTED INPATIENT Condition: Improved Admissions Decision to Admit Reason: Admit from ER (General) Decision to Admit/Date: Apr 16, 2019 Time/Decision to Admit Time: 21:10 Departure-Patient Inst. Referrals: BRANDON RODAS MD (PCP/Family) Primary Care Physician DEBBIE ESPINOSA DO Apr 16, 2019 21:56 POS
[2019-04-16 21:58] LABS: CREATINE KINASE MB 1.6 NG/ML (<6.6)
[2019-04-16] MEDS ORDERED: KETOROLAC 30 MG/ML VIAL IVP ONE (22:15)
[2019-04-16] MEDS ORDERED: cefTRIAXone FOR IV USE 1,000 MG in WATER (STERILE) FOR INJECTION 10 ML IV ONE (22:15)
[2019-04-16] MEDS ORDERED: AZITHROMYCIN INJECTION 500 MG in NS (IVPB) 250 ML IV ONE (22:15)
[2019-04-16] MEDS ORDERED: RT-ALBUTEROL/IPRATROPIUM 3 ML (DUONEB) VIAL INH ONE (22:15)
[2019-04-16] MEDS ORDERED: DEXAMETHASONE 4 MG/ML SDV (DECADRON) IH ONE (22:15)
[2019-04-16] MEDS ORDERED: methylPREDNISolone 125 MG (Solu-MEDROL) VIAL IVP ONE (22:15)
[2019-04-16] MEDS ORDERED: ONDANSETRON 4 MG/2 ML (SDV) Z0FRAN IVP ONE (22:45)
--- NOTE | 2019-04-16 23:20 | NUR ---
WINTER PIEDRA admitted to room CU12-1, with an admitting diagnosis of CHEST PAIN, COPD 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,RIGHT PLEURAL EFFUSION, on 04/16/19 from AM via , accompanied by .WINTER PIEDRA introduced to surroundings, call light, bed controls, phone, TV, temperature control, lights, meal times, smoking policy, visitor policy, side rail policy, bathrooms and showers. Patient Rights given to patient in the handbook. WINTER PIEDRA verbalizes understanding that [facility] is not responsible for the loss or damage to any personal effects or valuables that are kept in the patients posession during their hospitalization. The following Patient Care Plans were discussed with the : Discharge Planning, ,, and . WINTER PIEDRA verbalizes understanding of Interdisciplinary Patient Education. Patient and/or family were informed about the Rapid Response Team and its purpose.
[2019-04-16 23:30] VITALS: BP 136/76
[2019-04-16] MEDS ORDERED: morphine INJ 4 MG/ML 1 ML (VIAL/SYRINGE) IV PRN (23:30)
[2019-04-16] MEDS ORDERED: ONDANSETRON 4 MG/2 ML (SDV) Z0FRAN IV PRN (23:30)
[2019-04-16] MEDS ORDERED: ACETAMINOPHEN 500 MG TAB (TYLENOL) PO PRN (23:30)
[2019-04-16 23:45] VITALS: BP 125/82
[2019-04-17] VITALS (9 sets, daily range): BP systolic 125–144; BP diastolic 69–85
[2019-04-17] MEDS: NITROGLYCERIN 2% OINT 1 GM UNIT DOSE PACKET TOP SCH ×5 (00:03→23:07)
[2019-04-17] MEDS ORDERED: RT-ALBUTEROL/IPRATROPIUM 3 ML (DUONEB) VIAL INH PRN (00:15)
[2019-04-17] MEDS ORDERED: RT-ALBUTEROL/IPRATROPIUM 3 ML (DUONEB) VIAL ONE (02:05)
[2019-04-17] MEDS: RT-ALBUTEROL/IPRATROPIUM 3 ML (DUONEB) VIAL INH SCH ×6 (02:07→22:24)
[2019-04-17 03:36] LABS: BASOPHILS % (AUTO) 0 % (0-10); EOSINOPHILS % (AUTO) 1 % (0-10); HEMATOCRIT 38 % (40-54); HEMOGLOBIN 10.7 G/DL (13.3-17.7); LYMPHOCYTES # (AUTO) 0.3 X 10^3 (1.0-4.0); LYMPHOCYTES % (AUTO) 6 % (12-44); MEAN CORPUSCULAR HEMOGLOBIN 28 PG (25-34); MEAN CORPUSCULAR HGB CONC 28 G/DL (32-36); MEAN CORPUSCULAR VOLUME 99 FL (80-99); MEAN PLATELET VOLUME 10.3 FL (7.4-10.4); MONOCYTES # (AUTO) 0.1 X 10^3 (0.0-1.0); MONOCYTES % (AUTO) 1 % (0-12); NEUTROPHILS % (AUTO) 92 % (42-75); PLATELET COUNT 106 10^3/uL (130-400); WHITE BLOOD COUNT 5.4 10^3/uL (4.3-11.0)
[2019-04-17 03:56] LABS: ALANINE AMINOTRANSFERASE 22 U/L (0-55); ALBUMIN 3.9 GM/DL (3.2-4.5); ALKALINE PHOSPHATASE 90 U/L (40-136); BILIRUBIN,TOTAL 0.2 MG/DL (0.1-1.0); BUN/CREATININE RATIO 14; CALCIUM 9.2 MG/DL (8.5-10.1); CARBON DIOXIDE 34 MMOL/L (21-32); CHLORIDE 97 MMOL/L (98-107); CHOLESTEROL 183 MG/DL (< 200); CREATININE SERUM 0.87 MG/DL (0.60-1.30); GFR ESTIMATED > 60; GLUCOSE 195 MG/DL (70-105); HDL CHOLESTEROL 69 MG/DL (40-60); POTASSIUM 4.2 MMOL/L (3.6-5.0); SODIUM 143 MMOL/L (135-145); TOTAL PROTEIN 6.7 GM/DL (6.4-8.2); TRIGLYCERIDES 43 MG/DL (<150); VLDL CHOLESTEROL 9 MG/DL (5-40)
[2019-04-17] MEDS ORDERED: methylPREDNISolone 125 MG (Solu-MEDROL) VIAL IV SCH (04:00)
--- NOTE | 2019-04-17 05:03 | Pulmonary Consultation ---
History of Present Illness History of Present Illness Date of Consultation 04/17/19 04:58 Time Seen by Provider: 04:58 Date of Admission History of Present Illness 63yo with hx of severe COPD oxygen dependent at 5 liters/min, CAD presented to ED secondary to worsening severe CP radiating to left shoulder and nausea. Troponin negx 2. CP is now resolved. No current N/V. Cardiology is consulted. No syncope, No f/NS/Chills. No productive cough. No Abdominal pain. I am consulted for pulmonary management. Allergies and Home Medications Allergies Coded Allergies: budesonide (Verified Allergy, Severe, angioedema, 12/06/18) formoterol (Verified Allergy, Severe, angioedema, 12/06/18) tetanus toxoid, adsorbed (Verified Allergy, Mild, hives, 12/06/18) DOROTA Inhibitors (Verified Allergy, Unknown, Angioedema, 12/06/18) Home Medications Albuterol Sulfate 2.5 Mg/3 Ml Vial.neb, 2.5 MG NEB TID, (Reported) Albuterol Sulfate 1 Puff Puff, 2 PUFF IH PRN PRN for SHORTNESS OF BREATH, (Reported) 1 PUFF = 90 MCG Amlodipine Besylate 5 Mg Tablet, 5 MG PO DAILY, (Reported) Aripiprazole 30 Mg Tablet, 30 MG PO DAILY, (Reported) Aspirin 81 Mg Tablet.dr, 81 MG PO DAILY, (Reported) Atorvastatin Calcium 80 Mg Tablet, 80 MG PO DAILY, (Reported) Bupropion HCl 75 Mg Tablet, 75 MG PO DAILY, (Reported) Carvedilol 6.25 Mg Tablet, 6.25 MG PO BID, (Reported) Clopidogrel Bisulfate 75 Mg Tablet, 75 MG PO DAILY, (Reported) Fluticasone/Salmeterol 1 Each Blst.w.dev, 1 EACH IH DAILY, (Reported) Isosorbide Mononitrate 30 Mg Tab.er.24h, 15 MG PO DAILY, (Reported) TAKES 1/2 (30MG) TABLET Mirtazapine 30 Mg Tablet, 30 MG PO HS, (Reported) Montelukast Sodium 10 Mg Tablet, 10 MG PO DAILY, (Reported) Nitroglycerin 0.4 Mg Tab.subl, 0.4 MG PO UD PRN for CHEST PAIN, (Reported) [place] 3 Polyunsat Fatty Acids 1,000 Mg Cap, 1,000 MG PO DAILY, (Reported) Ranolazine 1,000 Mg Tab.er.12h, 1,000 MG PO BID, (Reported) Sertraline HCl 100 Mg Tablet, 100 MG PO DAILY, (Reported) Past Vkrcrac-Hirajh-Iamujq Hx Past Med/Social Hx: Reviewed and Corrections made Patient Social History Alcohol Use: Past History (HISTORY OF ABUSE, CLAIMS NONE FOR YEARS) Recreational Drug Use: No Smoking Status: Former Smoker (1 1/2 PPD) Type Used: Cigarettes (06 09/2 PPD) Former Smoker, Quit: Dec 16, 2017 2nd Hand Smoke Exposure: Yes Recent Foreign Travel: No Contact w/Someone Who Travel: No Recent Infectious Disease Expo: No Recent Hopitalizations: No Physical Abuse: No Sexual Abuse: No Mistreated: No Fear: No Immunizations Up To Date Tetanus Booster (TDap): Unknown PED Vaccines UTD: No Date of Pneumonia Vaccine: Mar 23, 2013 Date of Influenza Vaccine: Jul 31, 2017 Seasonal Allergies Seasonal Allergies: No Past Medical History Surgeries: Yes (1 VESSEL CABG; MULTIPLE CARDIAC CATHS WITH STENTS X 4 IN HEART, AND STENT X 1 IN LEFT LEG 02/2017--LAST CATH 03/2018--NO INTERVENTION; RIGHT I NGUINAL HERNIA REPAIR; ) Abdominal, Cardiac, CABG, Coronary Stent, Tonsillectomy, Vascular Surgery Respiratory: Yes (WEARS O2 AT 5L/NC CONTINUOUSLY. RUL PULMONARY NODULE) Pneumonia, Chronic Bronchitis, COPD Currently Using CPAP: No Currently Using BIPAP: No Cardiac: Yes (S/P 1 VESSEL CABG; MULTIPLE CARDIAC CATHS WITH STENTS X 4 IN HEART PLUS ANGIOPLASTIES AND STENT X 1 IN LEFT LEG 02/2017; LAST CATH 03/2018-- PATENT STENT TO PROXIMAL LAD TO FIRST DIAGONAL, COMPLETE OCCLUSION TO MID LAD AND TO VEIN GRAFT TO LAD; EFT 45-50%--NO INTERVENTION DONE AT THAT TIME AND FINDINGS THE SAME CATH DONE IN 2014; CHF; CAROTID DISEASE--SEVERE ON RIGHT; CARDIAC ARREST; ) Coronary Artery Disease, Deep Vein Thrombosis, Heart Attack, High Cholesterol, Hypertension, Peripheral Vascular Neurological: Yes Stroke Reproductive Disorders: No Sexually Transmitted Disease: No HIV/AIDS: No Genitourinary: No Gastrointestinal: Yes Gastroesophageal Reflux, Ulcer Musculoskeletal: Yes Arthritis, Chronic Back Pain Endocrine: No HEENT: No Loss of Vision: Denies Hearing Impairment: Denies Cancer: No Psychosocial: Yes Sleep Difficulties, Anxiety, Schizophrenia, Depression Integumentary: No Blood Disorders: No Adverse Reaction/Blood Tranf: No Family Medical History Diabetes mellitus 19 MOTHER FH: heart disease 19 FATHER Heart Disease, Diabetes Review of Systems Time Seen by Provider: 05:00 Constitutional: No: Fever, Chills, Sweats, Weakness, Malaise, Other Eyes: No: Pain, Vision change, Conjunctivae inflammation, Eyelid inflammation, Other, Redness ENT: Nose congestion; No: Ear pain, Ear discharge, Nose pain, Nose discharge, Mouth pain, Mouth swelling, Throat pain, Throat swelling, Other Respiratory: Cough, Dry, Shortness of breath, SOB with excertion; No: Wheezing, Hemoptysis Cardiovascular: Chest Pain; No: Palpitations, Paroxysmal Noc. Dyspnea, Edema Gastrointestinal: Nausea; No: Vomiting, Abdominal Pain, Diarrhea, Constipation, Melena, Hematochezia, Other Genitourinary: No Dysuria, No Frequency, No Incontinence, No Hematuria, No Retention, No Other Sepsis Event Evaluation Height, Weight, BMI Height: 5'8.00" Weight: 174lbs. 0.0oz. 78.131411pp; 27.82 BMI Method:Stated Exam Exam Vital Signs Date Time Temp Pulse Resp B/P (MAP) Pulse Ox O2 Delivery O2 Flow Rate FiO2 04/17/19 04:00 97 125/69 (87) 98 Nasal Cannula 5.00 04/17/19 04:00 98 Nasal Cannula 5.00 04/17/19 02:07 98 Nasal Cannula 4.00 04/17/19 01:00 102 136/72 (93) 99 Nasal Cannula 5.00 04/17/19 01:00 103 04/17/19 00:34 37.0 105 18 136/76 97 Nasal Cannula 5.00 04/17/19 00:31 97 Nasal Cannula 5.00 04/17/19 00:30 101 138/72 (94) 99 Nasal Cannula 5.00 04/17/19 00:00 108 142/85 (104) 98 Nasal Cannula 5.00 04/16/19 23:56 102 99 04/16/19 23:45 109 125/82 (96) 99 Nasal Cannula 5.00 04/16/19 23:30 37.0 105 18 136/76 (96) 97 Nasal Cannula 5.00 04/16/19 23:24 104 04/16/19 23:06 36.5 111 16 126/79 (102) 97 Nasal Cannula 4.00 04/16/19 22:28 100 Nasal Cannula 4.00 04/16/19 21:12 Nasal Cannula 5.0 04/16/19 21:12 36.7 98 18 154/77 (102) 99 Nasal Cannula 5.0 04/16/19 21:12 99 Nasal Cannula 5.00 I & O 04/17/19 07:00 Intake Total 260 ml Balance 260 ml Height & Weight Height: 5'8.00" Weight: 174lbs. 0.0oz. 78.567152vq; 27.82 BMI Method:Stated General Appearance: No Apparent Distress, WD/WN HEENT: PERRL/EOMI, Other (EDENTULOUS) Neck: Full Range of Motion, Normal Inspection, Non Tender, Supple; No Carotid Bruit, No JVD Respiratory: Chest Non Tender, No Accessory Muscle Use, No Respiratory Distress, Wheezing Cardiovascular: Regular Rate, Rhythm, No JVD, No Murmur, Normal Peripheral Pulses Capillary Refill: Less Than 3 Seconds Extremity: Normal Capillary Refill, Normal Range of Motion, Non Tender, No Calf Tenderness, No Pedal Edema, Pedal Edema (TRACE BILATERALLY) Neurologic/Psychiatric: Alert, Oriented x3, No Motor/Sensory Deficits, Normal Mood/Affect, spout tender II-XII Norm as Tested Skin: Normal Color, Warm/Dry, Tattoos/Piercings (TATTOOS) Results Lab Laboratory Tests 04/16/19 21:13 04/17/19 03:27 Assessment/Plan Assessment/Plan CP with nauseas and radiation to left shoulder -neg troponin x 2 -Cardiology consulted Hx of severe oxygen dependent COPD -MAT protocol -Pt takes Advair at home -Oxygen he is on 5 liters at home anemia -Monitor Atelectasis -IS -Monitor Hx of tobacco use -Quit 1yr ago XIMENA QUINONES DO Apr 17, 2019 05:03 POS
[2019-04-17 05:39] LABS: BILIRUBIN,URINE NEGATIVE (NEGATIVE); CLARITY,URINE CLEAR; COLOR,URINE YELLOW; GLUCOSE, URINE (UA) 3+ (NEGATIVE); KETONES,URINE NEGATIVE (NEGATIVE); LEUKOCYTE ESTERASE ,URINE NEGATIVE (NEGATIVE); NITRITE,URINE NEGATIVE (NEGATIVE); PROTEIN,URINE NEGATIVE (NEGATIVE)
[2019-04-17 05:55] LABS: BACTERIA,URINE FEW /HPF; SQUAMOUS EPITHELIAL CELL,UR RARE /HPF; WBC,URINE RARE /HPF
[2019-04-17 06:50] LABS: LYMPHOCYTES % (MANUAL) 7 %; MONOCYTES % (MANUAL) 1 %; NEUTROPHILS % (MANUAL) 92 %
--- NOTE | 2019-04-17 06:52 | Diagnostic Imaging Report ---
INDICATION: Chest pain and COPD. Comparison made with prior examination 04/16/2019. FINDINGS: Heart size is normal. There is some right basilar atelectasis and/or pneumonitis. There is right pleural effusion. There is no pneumothorax. Mediastinum is unremarkable. There has been previous median sternotomy and coronary bypass graft. IMPRESSION: Right basilar atelectasis and/or pneumonitis and right pleural effusion. Dictated by: Dictated on workstation # [id number]
[2019-04-17] MEDS: RT-ADVAIR HFA 115/21 MCG PER PUFF IH SCH ×2 (06:58→18:23)
[2019-04-17] MEDS ORDERED: FLU QUADRIvalent (5+ YOA) 2019-2020 (AFLURIA) 0.5 ML IM ONE (07:45)
[2019-04-17] MEDS: ASPIRIN E.C. 81 MG (ECOTRIN) TAB PO SCH (08:03)
--- NOTE | 2019-04-17 09:27 | History & Physical-Hospitalist ---
History of Present Illness HPI/Chief Complaint Patient is a 63-year-old male with a past medical history of coronary artery disease status post failed CABG with resultant coronary stenting, artery disease, ischemic cardiomyopathy, hypertension, peripheral artery disease who presented to the emergency department due to chest pain. He reports that he was lying in his hospital bed at home watching his family. Play cards when his chest suddenly started hurting. He states he was not doing anything to precipitate this. He took a nitroglycerin at home but did not improve his symptoms. He reports radiation to the left side of his arm and chest. He rep orts he is baseline short of breath due to his COPD but had no worsening short of breath with this. He denies any diaphoresis lightheadedness or vomiting. He does report nausea with this. He reports it felt similar to his previous episodes of angina. He does state now he is feeling better but that he is still having some chest pain. He also states his right leg is more edematous than his left. He denies a history of DVT though this is documented in his chart. He has had right lower extremity edema before that responded to Lasix. Source: patient Exam Limitations: no limitations Date Seen 04/17/19 Time Seen by a Provider: 09:25 Attending Physician Juarez Tolentino MD PCP Judi Zepeda MD Referring Physician Date of Admission Apr 16, 2019 at 21:11 Home Medications & Allergies Home Medications Reviewed patient Home Medication Reconciliation performed by pharmacy medication reconciliations elevator technician and/or nursing. Patients Allergies have been reviewed. Allergies Allergies Coded Allergies budesonide (Verified Allergy, Severe, angioedema, 12/06/18) formoterol (Verified Allergy, Severe, angioedema, 12/06/18) tetanus toxoid, adsorbed (Verified Allergy, Mild, hives, 12/06/18) DOROTA Inhibitors (Verified Allergy, Unknown, Angioedema, 12/06/18) Past Uuqsnrk-Cvxxqq-Litlab Hx Past Med/Social Hx: Reviewed and Corrections made Patient Social History Alcohol Use: Past History (HISTORY OF ABUSE, CLAIMS NONE FOR YEARS) Recreational Drug Use: No Smoking Status: Former Smoker (1 1/2 PPD) Former Smoker, Quit: Dec 16, 2017 Type Used: Cigarettes (06 09/ PPD) 2nd Hand Smoke Exposure: Yes Recent Foreign Travel: No Contact w/other who traveled: No Recent Hopitalizations: No Recent Infectious Disease Expo: No Immunizations Up To Date Tetanus Booster (TDap): Unknown Pediatric: No Date of Pneumonia Vaccine: Mar 23, 2013 Date of Influenza Vaccine: Jul 31, 2017 Seasonal Allergies Seasonal Allergies: No Past Medical History Surgeries: Abdominal, Cardiac, CABG, Coronary Stent, Tonsillectomy, Vascular Surgery Respiratory: COPD Currently Using CPAP: No Currently Using BIPAP: No Cardiac: Coronary Artery Disease, Deep Vein Thrombosis, Heart Attack, High Cholesterol, Hypertension, Peripheral Vascular Neurological: Stroke Reproductive: No Sexually Transmitted Disease: No HIV/AIDS: No Gastrointestinal: Gastroesophageal Reflux, Ulcer Musculoskeletal: Arthritis, Chronic Back Pain Loss of Vision: Denies Hearing Impairment: Denies Psychosocial: Sleep Difficulties, Anxiety, Schizophrenia, Depression History of Blood Disorders: No Adverse Reaction to Blood Ang: No Family History Diabetes mellitus 19 MOTHER FH: heart disease 19 FATHER Heart Disease, Diabetes Review of Systems Constitutional: no symptoms reported EENTM: no symptoms reported Respiratory: cough, short of breath Cardiovascular: see HPI, chest pain, edema, Hx of Intervention; No palpitations; vascular heart diseas Gastrointestinal: no symptoms reported Genitourinary: no symptoms reported Musculoskeletal: no symptoms reported Skin: no symptoms reported Psychiatric/Neurological: No Symptoms Reported Physical Exam Physical Exam Vital Signs Vital Signs - First Documented Capillary Refill : Less Than 3 Seconds Height, Weight, BMI Height: 5'8.00" Weight: 174lbs. 0.0oz. 78.149185th; 27.82 BMI Method:Stated General Appearance: No Apparent Distress, Chronically ill HEENT: Moist Mucous Membranes; No Scleral Icterus (L), No Scleral Icterus (R) Neck: Normal Inspection, Supple; No JVD, No Thyromegaly Respiratory: Lungs Clear, No Accessory Muscle Use, No Respiratory Distress Cardiovascular: Regular Rate, Rhythm, No Murmur Gastrointestinal: Normal Bowel Sounds, Non Tender, Soft Extremity: No Calf Tenderness, Pedal Edema (R>L) Neurologic/Psychiatric: Alert, Oriented x3, Normal Mood/Affect Results Results/Procedures Labs Laboratory Tests 04/16/19 21:13 04/17/19 03:27 Patient resulted labs reviewed. Imaging: Reviewed Imaging Report Assessment/Plan Admission Diagnosis Chest Pain Admission Status: Observation Assessment and Plan Chest Pain CAD s/p CABG PAD CHF with Ef 45% Last cath 03/2018 Troponins negative Cardiology consulted, appreciate recs RLE edema- will check d-dimer If no cath necessary but cardiology will get CT chest to rule out PE COPD Right basailar atelectasis On 5lpm Pulm consulted, appreciate recs MAT protocol No evidence of exacerbation HTN Well controlled, trend Diagnosis/Problems Diagnosis/Problems (1) Chest pain Status: Acute Qualifiers: Chest pain type: unspecified Qualified Codes: R07.9 - Chest pain, unspecified (2) COPD (chronic obstructive pulmonary disease) Status: Chronic Qualifiers: COPD type: unspecified COPD Qualified Codes: J44.9 - Chronic obstructive pulmonary disease, unspecified (3) CAD (coronary artery disease) Status: Chronic Qualifiers: Coronary Disease-Associated Artery/Lesion type: bypass graft [place] vs. transplanted heart: [place] heart Associated angina: with other forms of angina Qualified Codes: I25.708 - Atherosclerosis of coronary artery bypass graft(s), unspecified, with other forms of angina pectoris (4) HTN (hypertension) Status: Chronic Qualifiers: Hypertension type: unspecified Qualified Codes: I10 - Essential (primary) hypertension Clinical Quality Measures AMI/AHF: ASA po Prior to arrival: Yes DVT/VTE Risk/Contraindication: Risk Factor Score Per Nursin RFS Level Per Nursing on Admit: 2=Moderate JUAREZ TOLENTINO MD Apr 17, 2019 9:26 am POS
[2019-04-17] MEDS: methylPREDNISolone 125 MG (Solu-MEDROL) VIAL IV SCH ×3 (10:47→21:32)
--- NOTE | 2019-04-17 10:59 | Consultation-Cardiology ---
HPI-Cardiology Cardiology Consultation: Date of Consultation 04/17/19 Time Seen by a Provider: 10:50 Date of Admission Attending Physician Taya Luque MD Admitting Physician Judi Zepeda MD Consulting Physician JENS CHAVEZ MD, MA, FACP, FACC, FSCAI, CCDS Primary liner helper: Dr Carrion HPI: Chief Complaint: CC: Shortness of breath, Chest discomfort HPI 63 yo man with chronic shortness of breath that has been progressive for several days. Has cough productive of small quantities of yellowish sputum. Has chest pain: present for several day, L parasternal, worse with deep inspiration, w/o radiation (stays in L chest and L shoulder area), much improved with shallow breathing, different from previously experienced coronary angina. Has gen malaise. Does not know if has had fever or chills. Denies palp or syncope Review of Systems-Cardiology Review of Systems Constitutional: As described under HPI Eyes: No vision change Ears/Nose/Throat: No ear discharge, No nasal drainage, No recent hearing loss Respiratory: As described under HPI Cardiovascular: As described under HPI Gastrointestinal: No diarrhea, No nausea, No vomiting Genitourinary: No dysuria, No hematuria, No urine frequency changes Musculoskeletal: back pain (chronic) Skin: No rash, No ulcerations Psychiatric/Neurological: No seizure, No focal weakness, No syncope Hematologic: No bleeding abnormalities [id number] Hx Patient Social History Alcohol Use: Past History (HISTORY OF ABUSE, CLAIMS NONE FOR YEARS) Recreational Drug Use: No Smoking Status: Former Smoker (1 1/2 PPD) Former smoker/When Quit: Aug 21, 2014 Type Used: Cigarettes (1 /2 PPD) 2nd Hand Smoke Exposure: Yes Recent Foreign Travel: No Recent Infectious Disease Expo: No Hospitalization with Isolation: Denies Immunizations Up To Date Tetanus Booster (TDap): Unknown Date of Pneumonia Vaccine: Mar 23, 2013 Date of Influenza Vaccine: Jul 31, 2017 Past Medical History PMH As described under Assessment. Family Medical History Family Medical History: Father had [place] when he was in his early 50s Family History: Diabetes mellitus 19 MOTHER FH: heart disease 19 FATHER Allergies and Home Medications Allergies Coded Allergies: budesonide (Verified Allergy, Severe, angioedema, 12/06/18) formoterol (Verified Allergy, Severe, angioedema, 12/06/18) tetanus toxoid, adsorbed (Verified Allergy, Mild, hives, 12/06/18) DOROTA Inhibitors (Verified Allergy, Unknown, Angioedema, 12/06/18) Home Medications Albuterol Sulfate 2.5 Mg/3 Ml Vial.neb, 2.5 MG NEB TID, (Reported) Albuterol Sulfate 1 Puff Puff, 2 PUFF IH PRN PRN for SHORTNESS OF BREATH, (Reported) 1 PUFF = 90 MCG Amlodipine Besylate 5 Mg Tablet, 5 MG PO DAILY, (Reported) Aripiprazole 30 Mg Tablet, 30 MG PO DAILY, (Reported) Aspirin 81 Mg Tablet.dr, 81 MG PO DAILY, (Reported) Atorvastatin Calcium 80 Mg Tablet, 80 MG PO DAILY, (Reported) Bupropion HCl 75 Mg Tablet, 75 MG PO DAILY, (Reported) Carvedilol 6.25 Mg Tablet, 6.25 MG PO BID, (Reported) Clopidogrel Bisulfate 75 Mg Tablet, 75 MG PO DAILY, (Reported) Fluticasone/Salmeterol 1 Each Blst.w.dev, 1 EACH IH DAILY, (Reported) Isosorbide Mononitrate 30 Mg Tab.er.24h, 15 MG PO DAILY, (Reported) TAKES 1/2 (30MG) TABLET Mirtazapine 30 Mg Tablet, 30 MG PO HS, (Reported) Montelukast Sodium 10 Mg Tablet, 10 MG PO DAILY, (Reported) Nitroglycerin 0.4 Mg Tab.subl, 0.4 MG PO UD PRN for CHEST PAIN, (Reported) [place] 3 Polyunsat Fatty Acids 1,000 Mg Cap, 1,000 MG PO DAILY, (Reported) Ranolazine 1,000 Mg Tab.er.12h, 1,000 MG PO BID, (Reported) Sertraline HCl 100 Mg Tablet, 100 MG PO DAILY, (Reported) Patient Home Medication List Home Medication List Reviewed: Yes Physical Exam-Cardiology Physical Exam Vital Signs/I&O 04/16/19 04/16/19 04/16/19 04/16/19 23:24 23:30 23:45 23:56 Temp 37.0 Pulse 104 105 109 102 Resp 18 B/P (MAP) 136/76 (96) 125/82 (96) Pulse Ox 97 99 99 O2 Delivery Nasal Cannula Nasal Cannula O2 Flow Rate 5.00 5.00 04/17/19 04/17/19 04/17/199/19 00:00 00:30 00:31 00:34 Temp 37.0 Pulse 108 101 105 Resp 18 B/P (MAP) 142/85 (104) 138/72 (94) 136/76 Pulse Ox 98 99 97 97 O2 Delivery Nasal Cannula Nasal Cannula Nasal Cannula Nasal Cannula O2 Flow Rate 5.00 5.00 5.00 5.00 04/17/19 04/17/19 04/17/19 04/17/19 01:00 01:00 02:07 04:00 Pulse 103 102 B/P (MAP) 136/72 (93) Pulse Ox 99 98 98 O2 Delivery Nasal Cannula Nasal Cannula Nasal Cannula O2 Flow Rate 5.00 4.00 5.00 04/17/19 04/17/19 04/17/19 04/17/19 04:00 06:59 07:00 07:04 Pulse 97 106 B/P (MAP) 125/69 (87) Pulse Ox 98 97 O2 Delivery Nasal Cannula Nasal Cannula Nasal Cannula O2 Flow Rate 5.00 5.00 5.00 04/17/19 04/17/19 04/17/19 08:00 08:00 08:43 Pulse 105 B/P (MAP) 135/74 (94) Pulse Ox 97 97 96 O2 Delivery Nasal Cannula Nasal Cannula Nasal Cannula O2 Flow Rate 5.00 5.00 5.00 04/17/19 00:00 Intake Total 10 ml Balance 10 ml Capillary Refill : Less Than 3 Seconds Constitutional: AAO x 3, well-developed, well-nourished HEENT: EOMI, hearing is well preserved; No xanthelasmas are seen Neck: carotid pulses are 2 + bilaterally, with good upstrokes Respiratory: No accessory muscle use; other (markedly diminshed air entry and prolonged exp phase over all lung davis) Cardiovascular: regular rate-rhythm, S1 and S2, systolic murmur (soft LINNEA at card base) Gastrointestinal: No tender; soft; No guarding, No rebound; audible bowel sounds Extremities: No clubbing, No cyanosis, No significant edema Neurologic/Psychiatric: oriented x 3, other (moves all limbs equally) Skin: No rash on exposed areas, No ulcerations on exposed areas Data Review Labs Laboratory Tests 04/16/19 21:13: White Blood Count 5.1, Red Blood Count 3.71L, Hemoglobin 10.6L, Hematocrit 37L, Mean Corpuscular Volume 99, Mean Corpuscular Hemoglobin 29, Mean Corpuscular Hemoglobin Concent 29L, Red Cell Distribution Width 12.9, Platelet Count 125L, Mean Platelet Volume 10.1, Neutrophils (%) (Auto) 60, Lymphocytes (%) (Auto) 27, Monocytes (%) (Auto) 10, Eosinophils (%) (Auto) 3, Basophils (%) (Auto) 0, Neutrophils # (Auto) 3.1, Lymphocytes # (Auto) 1.4, Monocytes # (Auto) 0.5, Eosinophils # (Auto) 0.1, Basophils # (Auto) 0.0, Prothrombin Time 14.3, INR Co mment 1.1, Activated Partial Thromboplast Time 45H, Sodium Level 143, Potassium Level 4.6, Chloride Level 94L, Carbon Dioxide Level 36H, Anion Gap 13, Blood Urea Nitrogen 12, Creatinine 0.90, Estimat Glomerular Filtration Rate > 60, BUN/ Creatinine Ratio 13, Glucose Level 131H, Calcium Level 9.3, Corrected Calcium 9 .4, Magnesium Level 1.8, Total Bilirubin 0.2, Aspartate Amino Transf (AST/SGOT) 23, Alanine Aminotransferase (ALT/SGPT) 17, Alkaline Phosphatase 94, Total Creatine Kinase 74, Creatine Kinase MB 1.6, Myoglobin 26.7, Troponin I < 0.028, B-Type Natriuretic Peptide 23.4, Total Protein 6.6, Albumin 3.9, Amylase Level 48, Lipase 23 04/17/19 03:27: White Blood Count 5.4, Red Blood Count 3.82L, Hemoglobin 10.7L, Hematocrit 38L, Mean Corpuscular Volume 99, Mean Corpuscular Hemoglobin 28, Mean Corpuscular Hemoglobin Concent 28L, Red Cell Distribution Width 13.0, Platelet Count 106L, Mean Platelet Volume 10.3, Neutrophils (%) (Auto) 92H, Lymphocytes (%) (Auto) 6L , Monocytes (%) (Auto) 1, Eosinophils (%) (Auto) 1, Basophils (%) (Auto) 0, Neutrophils # (Auto) 5.0, Lymphocytes # (Auto) 0.3L, Monocytes # (Auto) 0.1, Eosinophils # (Auto) 0.0, Basophils # (Auto) 0.0, Sodium Level 143, Potassium Level 4.2, Chloride Level 97L, Carbon Dioxide Level 34H, Anion Gap 12, Blood U julian Nitrogen 12, Creatinine 0.87, Estimat Glomerular Filtration Rate > 60, BUN/Creatinine Ratio 14, Glucose Level 195H, Calcium Level 9.2, Corrected Calcium 9.3, Total Bilirubin 0.2, Aspartate Amino Transf (AST/SGOT) 24, Alanine Aminotransferase (ALT/SGPT) 22, Alkaline Phosphatase 90, Troponin I < 0.028, Total Protein 6.7, Albumin 3.9, Neutrophils % (Manual) 92, Lymphocytes % (Manual) 7, Monocytes % (Manual) 1, Triglycerides Level 43, Cholesterol Level 183, LDL Cholesterol Direct 96, VLDL Cholesterol 9, HDL Cholesterol 69H 04/17/19 03:37: D-Dimer 3.53H 04/17/19 05:30: Urine Color YELLOW, Urine Clarity CLEAR, Urine pH 6.0, Urine Specific Vincent >=1.030, Urine Protein NEGATIVE, Urine Glucose (UA) 3+H, Urine Ketones NEGATIVE, Urine Nitrite NEGATIVE, Urine Bilirubin NEGATIVE, Urine Urobilinogen 0.2, Urine Leukocyte Esterase NEGATIVE, Urine RBC (Auto) NEGATIVE, Urine RBC NONE, Urine WBC RARE, Urine Squamous Epithelial Cells RARE, Urine Crystals NONE, Urine Bacteria FEWH, Urine Casts NONE, Urine Mucus SMALLH, Urine Culture Indicated NO Laboratory Tests 04/16/19 21:13 04/17/19 03:27 A/P-Cardiology Assessment/Admission Diagnosis Multifactorial shortness of breath: ac exac of COPD prob due to lower resp tract infection; chronic systolic CHF Coronary artery disease. Last card cath Mar 2018 (Dr Carrion): total occlusion of the mid LAD and the vein graft to the LAD, patent stent in the proximal LAD that was providing flow to the first diagonal branch, mild disease in the circumflex artery and right coronary artery, the apex of the left ventricular still akinetic with ejection fraction 45-50 percent. This was essentially unchanged compared to card cath of September 2014 Ischemic cardiomyopathy, mild (see above) Pleuritic chest pain w/o any evidence of ACS during this hospitalization of 04/16/19. H/o chronic stable angina Echo of August 2018: LVEF 50-55%, PASP 25 mmHg Peripheral arterial disease: h/o balloon angioplasty with Angioscore cutting balloon 5x40 mm to the left external iliac then stenting to the left external iliac artery with 6x50 Viabahn postdilated with a Brent balloon (Dr Jackson). [facility] COPD, severe, oxygen dependent Hypertension Hyperlipidemia Chronic tobacco use (smoking) that he quit in 2018 Carotid stenosis, showing severe right carotid stenosis, 60-79 percent. Mild left carotid stenosis 1-39 percent. [facility] Discussion and Recomendations * For CAD: statin, ASA, bb * For DVT prophylaxis: low-dose enoxaparin * Advised to continue to stay away from smoking * Monitor labs * Discussed with Dr Luque Clinical Quality Measures AMI/AHF: ASA po Prior to arrival: Yes DVT/VTE Risk/Contraindication: Risk Factor Score Per Nursin RFS Level Per Nursing on Admit: 2=Moderate JENS CHAVEZ MD FACP FACC CCDS Apr 17, 2019 10:59 POS
[2019-04-17] MEDS ORDERED: ENOXAPARIN 40 MG/0.4 ML (LOVENOX) SYR SC SCH (11:30)
[2019-04-17] MEDS ORDERED: HOLD METFORMIN - RECEIVED CONTRAST 20 ML VIAL IV SCH (12:00)
[2019-04-17] MEDS ORDERED: NS 100 ML (IVPB) BAG IV ONE (12:00)
[2019-04-17] MEDS ORDERED: CATHETER FLUSH 10 ML SYR IV PRN (12:00)
[2019-04-17] MEDS ORDERED: IOHEXOL 350 MG/ML 100 ML (OMNIPAQUE 350) VIAL IV ONE (12:00)
--- NOTE | 2019-04-17 12:42 | Diagnostic Imaging Report ---
PROCEDURE: CT angiography of the chest with contrast. TECHNIQUE: Multiple contiguous axial images were obtained through the chest after uneventful bolus administration of intravenous contrast. 3D reconstructed CTA MIP acquisitions were also performed. Auto Exposure Controls were utilized during the CT exam to meet ALARA standards for radiation dose reduction. INDICATION: COPD exacerbation. The previous CTA chest exam of 12/06/2018 failed to show any sign of a pulmonary embolus or of an acute cardiopulmonary abnormality. The plain film examination of the chest performed earlier today did note right basilar atelectasis and/or pneumonitis with a right pleural effusion. On this study there is still no defect within the pulmonary arteries to indicate a pulmonary embolus. The aorta is not abnormally dilated and there is no sign of a dissection. The heart is borderline enlarged and there are extensive coronary artery calcifications evident. There has also been a prior coronary artery bypass procedure. These findings are similar to the prior exam. As suggested on the plain film exam performed prior to this study there is atelectasis/infiltrate involving the right lung base. There is no pleural effusion noted however. A small amount of atelectasis/infiltrate is also developed in the left lung base. The upper lungs are generally clear. The small 6 mm parenchymal density in the right upper lobe seen on the previous study is again evident and does not seem to have changed significantly. The 7-8 mm irregular density in the left lung base noted previously is also unchanged. There is no mediastinal or hilar adenopathy. The thyroid gland where visualized is unremarkable. The sections through the upper abdomen failed to show any sign of an acute abnormality. The small area of enhancement in the region of the gallbladder fossa seen on the previous study is again evident. This is of uncertain etiology but could be secondary to a small hemangioma. The bone windows are unremarkable for an acute fracture or for a destructive lesion. The long-standing compression deformities of the lower thoracic spine seen previously are again evident and no different. IMPRESSION: 1. There is still no evidence for a pulmonary embolus or for a dissection. 2. There is bibasilar pneumonia/atelectasis with greater involvement on the right. A follow-up exam would be recommended for continued evaluation. 3. There is cardiomegaly, coronary artery disease and evidence of prior cardiac surgery. 4. The small parenchymal nodules in both lungs seen previously appear stable. I would recommend that the patient have his CT low-dose lung cancer screening exam on schedule in October 2019. 5. The area of enhancement within the liver is of uncertain etiology but may represent a small hemangioma. 6. There are several long-standing compression deformities of the lower thoracic and upper lumbar spine. Dictated by: Dictated on workstation # [id number]
[2019-04-17] MEDS: meTOproloL SUCCINATE 50 MG (TOPROL XL) TAB PO NR ×2 (13:02→13:03)
[2019-04-17] MEDS ORDERED: AZITHROMYCIN 250 MG TAB (ZITHROMAX) PO SCH (21:00)
[2019-04-17] MEDS ORDERED: cefTRIAXone 1,000 MG/SWFI 10 ML IV PUSH IV SCH ×2 (21:00)
[2019-04-18] VITALS: BP 131/75
[2019-04-18] MEDS: RT-ALBUTEROL/IPRATROPIUM 3 ML (DUONEB) VIAL INH SCH ×3 (01:56→10:39)
[2019-04-18 04:00] VITALS: BP 120/73
[2019-04-18] MEDS: methylPREDNISolone 125 MG (Solu-MEDROL) VIAL IV SCH (05:20)
[2019-04-18] MEDS: NITROGLYCERIN 2% OINT 1 GM UNIT DOSE PACKET TOP SCH (06:31)
[2019-04-18] MEDS: RT-ADVAIR HFA 115/21 MCG PER PUFF IH SCH (06:56)
[2019-04-18] MEDS ORDERED: AZIT250T12 PO (08:56)
[2019-04-18] MEDS ORDERED: PRD20T PO (08:56)
[2019-04-18] MEDS ORDERED: CEPH-507 PO (08:56)
--- NOTE | 2019-04-18 08:57 | Discharge Summary ---
Diagnosis/Chief Complaint Date of Admission Apr 16, 2019 at 21:11 Date of Discharge Admission Diagnosis Chest Pain Primary Care Judi Zepeda MD Discharge Diagnosis (1) Chest pain Status: Acute (2) COPD (chronic obstructive pulmonary disease) Status: Chronic (3) CAD (coronary artery disease) Status: Chronic (4) HTN (hypertension) Status: Chronic Discharge Summary Discharge Physical Exam Allergies: Coded Allergies: budesonide (Verified Allergy, Severe, angioedema, 12/06/18) formoterol (Verified Allergy, Severe, angioedema, 12/06/18) tetanus toxoid, adsorbed (Verified Allergy, Mild, hives, 12/06/18) DOROTA Inhibitors (Verified Allergy, Unknown, Angioedema, 12/06/18) Vitals & I&Os Vital Signs Date Time Temp Pulse Resp B/P (MAP) Pulse Ox O2 Delivery O2 Flow Rate FiO2 04/18/19 08:00 36.8 04/18/19 06:57 Nasal Cannula 5.00 04/18/19 06:56 99 04/18/19 04:00 87 120/73 (89) 04/18/19 00:00 18 Hospital Course Labs (last 24 hrs) Patient resulted labs reviewed. Imaging: Reviewed Imaging Report Discharge Home Medications: Active Scripts Active Keflex (Cephalexin) 500 Mg Capsule 500 Mg PO BID Prednisone 20 Mg Tab 40 Mg PO DAILY Azithromycin 250 Mg Tablet 250 Mg PO HS Reported Ventolin Hfa (Albuterol Sulfate) 1 Puff Puff 2 Puff IH PRN PRN 1 PUFF = 90 MCG Advair 250-50 Diskus (Fluticasone/Salmeterol) 1 Each Blst.w.dev 1 Each IH DAILY Singulair (Montelukast Sodium) 10 Mg Tablet 10 Mg PO DAILY Zoloft (Sertraline HCl) 100 Mg Tablet 100 Mg PO DAILY Abilify (Aripiprazole) 30 Mg Tablet 30 Mg PO DAILY Atorvastatin Calcium 80 Mg Tablet 80 Mg PO DAILY Ranexa (Ranolazine) 1,000 Mg Tab.er.12h 1,000 Mg PO BID Plavix (Clopidogrel Bisulfate) 75 Mg Tablet 75 Mg PO DAILY Aspirin EC (Aspirin) 81 Mg Tablet.dr 81 Mg PO DAILY Mirtazapine 30 Mg Tablet 30 Mg PO HS Amlodipine Besylate 5 Mg Tablet 5 Mg PO DAILY Bupropion HCl 75 Mg Tablet 75 Mg PO DAILY Fish Oil 1,000 mg Capsule ([place] 3 Polyunsat Fatty Acids) 1,000 Mg Cap 1,000 Mg PO DAILY Albuterol Sulfate 2.5 Mg/3 Ml Vial.neb 2.5 Mg NEB TID Carvedilol 6.25 Mg Tablet 6.25 Mg PO BID Nitrostat (Nitroglycerin) 0.4 Mg Tab.subl 0.4 Mg PO UD PRN Isosorbide Mononitrate ER (Isosorbide Mononitrate) 30 Mg Tab.er.24h 15 Mg PO DAILY TAKES 1/2 (30MG) TABLET Instructions to patient/family Please see electronic discharge instructions given to patient. Clinical Quality Measures AMI/AHF: ASA po Prior to arrival: Yes DVT/VTE Risk/Contraindication: Risk Factor Score Per Nursin RFS Level Per Nursing on Admit: 2=Moderate Problem Qualifiers (1) Chest pain: Chest pain type: unspecified Qualified Codes: R07.9 - Chest pain, unspecified (2) COPD (chronic obstructive pulmonary disease): COPD type: unspecified COPD Qualified Codes: J44.9 - Chronic obstructive pulmonary disease, unspecified (3) CAD (coronary artery disease): Coronary Disease-Associated Artery/Lesion type: bypass graft [place] vs. transplanted heart: [place] heart Associated angina: with other forms of angina Qualified Codes: I25.708 - Atherosclerosis of coronary artery bypass graft(s), unspecified, with other forms of angina pectoris (4) HTN (hypertension): Hypertension type: unspecified Qualified Codes: I10 - Essential (primary) hypertension JUAREZ TOLENTINO MD Apr 18, 2019 08:57 POS
[2019-04-18] MEDS ORDERED: meTOproloL SUCCINATE 50 MG (TOPROL XL) TAB PO SCH (09:00)
--- NOTE | 2019-04-18 09:18 | Pulmonary Progress Note ---
Sepsis Event Evaluation Height, Weight, BMI Height: 5'8.00" Weight: 174lbs. 0.0oz. 78.845787nb; 27.82 BMI Method:Stated Exam Exam Vital Signs Date Time Temp Pulse Resp B/P (MAP) Pulse Ox O2 Delivery O2 Flow Rate FiO2 04/18/19 08:00 36.8 04/18/19 07:00 97 04/18/19 06:57 Nasal Cannula 5.00 04/18/19 06:56 99 Nasal Cannula 5.00 04/18/19 04:00 97 Nasal Cannula 5.00 04/18/19 04:00 36.8 87 120/73 (89) 99 Nasal Cannula 5.00 04/18/19 01:56 98 Nasal Cannula 5.00 04/18/19 01:00 92 04/18/19 00:00 36.8 98 18 131/75 (93) 97 Nasal Cannula 5.00 04/18/19 00:00 97 Nasal Cannula 5.00 04/17/19 22:22 99 Nasal Cannula 5.00 04/17/19 21:00 96 Nasal Cannula 5.00 04/17/19 20:00 97 Nasal Cannula 5.00 04/17/19 20:00 37.0 102 140/79 (99) 100 Nasal Cannula 5.00 04/17/19 19:00 104 04/17/19 18:21 97 Nasal Cannula 5.00 04/17/19 16:00 105 144/79 (100) 91 Nasal Cannula 5.00 04/17/19 16:00 98 Nasal Cannula 5.00 04/17/19 16:00 36.8 16 04/17/19 14:15 99 Nasal Cannula 5.00 04/17/19 13:00 109 04/17/19 12:00 36.6 14 04/17/19 12:00 97 Nasal Cannula 5.00 04/17/19 11:45 114 132/74 (93) 97 Nasal Cannula 5.00 04/17/19 10:50 96 Nasal Cannula 5.00 I & O 04/18/19 07:00 Intake Total 750 ml Output Total 1150 ml Balance -400 ml Height & Weight Height: 5'8.00" Weight: 174lbs. 0.0oz. 78.428463rx; 27.82 BMI Method:Stated General Appearance: No Apparent Distress, Chronically ill HEENT: Moist Mucous Membranes; No Scleral Icterus (L), No Scleral Icterus (R) Neck: Normal Inspection, Supple; No JVD, No Thyromegaly Respiratory: Lungs Clear, No Accessory Muscle Use, No Respiratory Distress Cardiovascular: Regular Rate, Rhythm, No Murmur Capillary Refill: Less Than 3 Seconds Extremity: No Calf Tenderness, Pedal Edema (R>L) Neurologic/Psychiatric: Alert, Oriented x3, Normal Mood/Affect Skin: Normal Color, Warm/Dry, Tattoos/Piercings (TATTOOS) Results Lab Laboratory Tests 04/16/19 21:13 04/17/19 03:27 Assessment/Plan Assessment/Plan CP with nauseas and radiation to left shoulder -neg troponin x 2 -Cardiology consulted Hx of severe oxygen dependent COPD -MAT protocol -Pt takes Advair at home -Oxygen he is on 5 liters at home anemia -Monitor Atelectasis RLL -Pt will need repeat CT in 8wks secondary to RLL atelectasis -IS -Monitor Hx of tobacco use -Quit 1yr ago XIMENA QUINONES DO Apr 18, 2019 09:18 POS
[2019-04-18] MEDS: ASPIRIN E.C. 81 MG (ECOTRIN) TAB PO SCH (11:04)
--- NOTE | 2019-04-18 11:37 | Progress Note - Cardiology ---
Cardiology SOAP Progress Note Subjective: Shortness of breath improved today Wishes to go home Denies cp or palp or syncope Objective: I&O/Vital Signs 04/18/19 04/18/19 04/18/19 04/18/19 00:00 00:00 01:00 01:56 Temp 36.8 Pulse 98 92 Resp 18 B/P (MAP) 131/75 (93) Pulse Ox 97 97 98 O2 Delivery Nasal Cannula Nasal Cannula Nasal Cannula O2 Flow Rate 5.00 5.00 5.00 04/18/19 04/18/19 04/18/19 04/18/19 04:00 04:00 06:56 06:57 Temp 36.8 Pulse 87 B/P (MAP) 120/73 (89) Pulse Ox 99 97 99 O2 Delivery Nasal Cannula Nasal Cannula Nasal Cannula Nasal Cannula O2 Flow Rate 5.00 5.00 5.00 5.00 04/18/19 04/18/19 04/18/19 04/18/19 07:00 08:00 08:00 10:39 Temp 36.8 Pulse 97 105 B/P (MAP) Pulse Ox 96 95 O2 Delivery Nasal Cannula Nasal Cannula O2 Flow Rate 5.00 5.00 04/18/19 00:00 Intake Total 750 ml Output Total 800 ml Balance -50 ml Weight (Pounds): 174 Weight (Ounces): 0.0 Weight (Calculated Kilograms): 78.460544 Constitutional: AAO x 3, well-developed, well-nourished Respiratory: No accessory muscle use; other (markedly diminshed air entry and prolonged exp phase over all lung davis) Cardiovascular: regular rate-rhythm, S1 and S2, systolic murmur (soft LINNEA at card base) Gastrointestional: No tender; soft; No guarding, No rebound; audible bowel sounds Extremities: No clubbing, No cyanosis, No significant edema Neurologic/Psychiatric: oriented x 3, other (moves all limbs equally) Skin: No rash on exposed areas, No ulcerations on exposed areas Results/Procedures: Labs Laboratory Tests 04/16/19 21:13 04/17/19 03:27 A/P: Assessment: Multifactorial shortness of breath: ac exac of COPD prob due to lower resp tract infection; chronic systolic CHF Coronary artery disease. Last card cath Mar 2018 (Dr Carrion): total occlusion of the mid LAD and the vein graft to the LAD, patent stent in the proximal LAD that was providing flow to the first diagonal branch, mild disease in the circumflex artery and right coronary artery, the apex of the left ventricular still akinetic with ejection fraction 45-50 percent. This was essentially unchanged compared to card cath of September 2014 Ischemic cardiomyopathy, mild (see above) Pleuritic chest pain w/o any evidence of ACS during this hospitalization of 04/16/19. H/o chronic stable angina Echo of August 2018: LVEF 50-55%, PASP 25 mmHg Peripheral arterial disease: h/o balloon angioplasty with Angioscore cutting balloon 5x40 mm to the left external iliac then stenting to the left external iliac artery with 6x50 Viabahn postdilated with a Brent balloon (Dr Jackson). [facility] COPD, severe, oxygen dependent Hypertension Hyperlipidemia Chronic tobacco use (smoking) that he quit in 2018 Carotid stenosis, showing severe right carotid stenosis, 60-79 percent. Mild left carotid stenosis 1-39 percent. [facility] Plan: * Continue current cardiac regimen * Outpt f/u with Dr Carrion Clinical Quality Measures AMI/AHF: ASA po Prior to arrival: Yes JENS CHAVEZ MD FACP FACC CCDS Apr 18, 2019 11:37 POS
--- NOTE | 2019-04-19 14:47 | Physician Query Clarification ---
PQ-Further Specificity Admission/Discharge Admission Date: Apr 16, 2019 at 21:11 Discharge Date: Apr 18, 2019 at 11:15 The medical record reflects the following clinical scenario: History/Risk Factors: COPD, CAD w/angina, Chronic systolic CHF w/HTN, PAD Clinical Findings: Multifactorial shortness of breath: ac exac of COPD prob due to lower resp tract infection, chest wall pain, radiation lt side arm and chest, RLE edema Treatment: IV Zithromax, IV Rocephin, Advair, Albuterol, IS, Nitro, Lovenox, Toprol, Statins, ASA, Beta Blockers Question: Can you further specify the underlying chest wall pain per the clinical indicators above? Please document a response in the Progress Notes or Discharge Summary. 1. Acute exacerbation COPD w/Pneumonia 2. CAD w/ angina 3. Other, with explanation of the clinical findings. 4. Clinically undetermined, no explanation for the clinical findings. PHYSICIAN RESPONSE Can you specify per above: 1 Please remember a lack of response to the above will prompt a phone page by CDI/Coding staff. In responding to this query, please exercise your independent professional judgment. The purpose of this communication is to more accurately reflect the complexity of your patients condition. The fact that a question is asked does not imply that any particular answer is desired or expected. Thank you for your timely response to this clarification. Requestors name: Sanjeev THIS PHYSICIAN QUERY FORM IS A PERMANENT PART OF THE MEDICAL RECORD SANJEEV RICHTER Apr 19, 2019 14:47 JUAREZ ZEPEDA MD Apr 19, 2019 15:50 POS
== END 2019-04-18 11:15 | disposition home or self-care (01) | DRG 190 ==
LOC: EDUNIT# 21:09 → ER 21:10 → ICU 21:11
PROVIDERS: ADMIT Family Medicine; ATTEND Family Medicine
DX: J44.1 Chronic obstructive pulmonary disease with (acute) exacerbation (principal); J44.0 Chronic obstructive pulmonary disease with (acute) lower respiratory infection; J18.9 Pneumonia, unspecified organism; I11.0 Hypertensive heart disease with heart failure; I50.22 Chronic systolic (congestive) heart failure; I25.5 Ischemic cardiomyopathy; J98.11 Atelectasis; I25.119 Atherosclerotic heart disease of native coronary artery with unspecified angina pectoris; I25.719 Atherosclerosis of autologous vein coronary artery bypass graft(s) with unspecified angina pectoris; I73.9 Peripheral vascular disease, unspecified; I65.21 Occlusion and stenosis of right carotid artery; K21.9 Gastro-esophageal reflux disease without esophagitis; F41.9 Anxiety disorder, unspecified; F32.9 Major depressive disorder, single episode, unspecified; F20.9 Schizophrenia, unspecified; Z95.1 Presence of aortocoronary bypass graft; Z95.5 Presence of coronary angioplasty implant and graft; Z95.820 Peripheral vascular angioplasty status with implants and grafts; Z86.718 Personal history of other venous thrombosis and embolism; Z87.891 Personal history of nicotine dependence; Z79.02 Long term (current) use of antithrombotics/antiplatelets; Z79.82 Long term (current) use of aspirin; Z99.81 Dependence on supplemental oxygen
CPT/HCPCS: 36415; 71045; 71275; 80053; 80061; 81000; 82150; 82550; 82553; 83690; 83735; 83874; 83880; 84484; 85007; 85025; 85027; 85379; 85610; 85730; 93005; 93041; 94640; 94664; 94760

== ENCOUNTER → 2019-05-31 | Outpatient (CLI) | payer MEDICARE, MEDICAID ==
[~2019-05-31] MED LIST changes: +AZIT250T12 PO; +CEPH-507 PO; +HOLD METFORMIN - RECEIVED CONTRAST 20 ML VIAL IV SCH; +IOHEXOL 350 MG/ML 100 ML (OMNIPAQUE 350) VIAL IV ONE; +NS 100 ML (IVPB) BAG IV ONE
[2019-05-31 07:09] LABS: BUN/CREATININE RATIO 10; CREATININE SERUM 1.03 MG/DL (0.60-1.30); GFR ESTIMATED > 60
--- NOTE | 2019-05-31 08:51 | Diagnostic Imaging Report ---
PROCEDURE: CT chest with contrast only. TECHNIQUE: Multiple contiguous axial images were obtained through the chest after administration of intravenous contrast. Auto Exposure Controls were utilized during the CT exam to meet ALARA standards for radiation dose reduction. DATE: May 31, 2019. COMPARISON: CT chest with contrast April 17, 2019. December 06, 2018. CT chest March 22, 2017. INDICATION: 63-year-old male, evaluation of pulmonary nodule. Hypoxemia. FINDINGS: There is a focal area of linear opacification in the right upper lobe likely relating to scarring on axial image 26. This is stable since at least March 22, 2017. There is no pulmonary nodule. There are very mild linear opacities in the right middle lobe, right upper lobe, and right lower lobe consistent with very mild atelectasis and/or scarring. There is some respiratory motion artifact present. There is no additional focal airspace consolidation. There is no pneumothorax. There is no pleural effusion. The central airways are patent. There are coronary artery calcifications and additional areas of atherosclerotic disease. There is no pericardial effusion. The heart is not grossly enlarged. There is no identified large central pulmonary embolus. There is nondiagnostic assessment for segmental and subsegmental pulmonary emboli. There is no identified abnormally enlarged mediastinal, hilar, or axillary lymph node which meets CT size criteria for adenopathy. There is a hypervascular focus in the left lobe of the liver on axial image 122 which measures 12 mm in size. This is present on April 17, 2019 and previously measured up to approximately 8 mm in size. Accurate assessment for changes in size of the lesion may be difficult given differences of timing of the contrast bolus. On comparison imaging, additional hypervascular foci are previously able to be seen which are not well seen on the current exam. The outer liver contours are not grossly nodular. Comparing with recent prior PET/CT of November 17, 2018, there is no identified FDG avid focal liver lesion. There is no biliary ductal dilation. There is no identified hypervascular pancreatic lesion. Additional evaluation of the imaged portions of the upper abdomen is grossly unremarkable. There are degenerative changes of the spine. There are median sternotomy wires. There is no identified acute bony abnormality. IMPRESSION: CT CHEST. 1. No current pulmonary nodule. Focal linear area of opacification in the right upper lobe is stable since at least March 2017 and consistent with focal scarring. 2. No acute cardiopulmonary abnormality. 3. 12 mm hypervascular lesion in the liver which measures larger in size since April 17, 2019. Size comparisons are difficult given differences in timing of contrast bolus. There are previously noted hypervascular liver lesions present on prior imaging which are not well seen on current exam which also could relate to differences in timing of the contrast bolus. Dedicated liver mass protocol CT or MRI with and without intravenous contrast is recommended for further assessment of the liver lesions. Although these are not noted to be FDG avid on prior PET/CT, this does not exclude malignancy. Primary differential diagnostic considerations would include atypical hemangiomas, focal nodular hyperplasia, other primary hypervascular liver lesions, and hypervascular metastasis. Dictated by: Dictated on workstation # [id number]
== END ==
LOC: RAD 06:35
PROVIDERS: ATTEND Nurse Practitioner Family
DX: J44.9 Chronic obstructive pulmonary disease, unspecified (principal); J18.9 Pneumonia, unspecified organism; K76.9 Liver disease, unspecified; R91.8 Other nonspecific abnormal finding of lung field; R91.1 Solitary pulmonary nodule; F17.201 Nicotine dependence, unspecified, in remission
CPT/HCPCS: 36415; 71260; 82565; 84520

== ENCOUNTER 2019-11-08 09:08 | Inpatient (IN) | payer MEDICARE, MEDICAID ==
[~2019-11-08] VITALS: Ht 172.7 cm; Wt 91.1 kg
[2019-11-08] VITALS (12 sets, daily range): BP systolic 119–149; BP diastolic 62–78
[~2019-11-08 09:08] MED LIST changes: +ACHD5005 PO; -ARIP30TA10 PO; +ARIP30TA21 PO; -GUAI400T71 PO; +GUAI400T86 PO; -HOLD METFORMIN - RECEIVED CONTRAST 20 ML VIAL IV SCH; -HYDR-3812 PO; -IOHEXOL 350 MG/ML 100 ML (OMNIPAQUE 350) VIAL IV ONE; -MONT10TA24 PO; +MONT10TA26 PO; -NS 100 ML (IVPB) BAG IV ONE; -TRAZ-190 PO; +TRAZ-227 PO
[2019-11-08] MEDS ORDERED: RT-ALBUTEROL SULF 2.5 MG/3 ML PRE-MIX VIAL ONE (09:13)
[2019-11-08] MEDS ORDERED: RT-ALBUTEROL SULF 2.5 MG/3 ML PRE-MIX VIAL INH STA (09:37)
[2019-11-08] MEDS ORDERED: methylPREDNISolone 125 MG (Solu-MEDROL) VIAL IV STA (09:37)
[2019-11-08] MEDS ORDERED: RT-IPRATROPIUM (ATROVENT) 0.5MG/2.5ML AMP IH ONE (09:45)
[2019-11-08 09:50] LABS: ABG OXYGEN SATURATION 90 % (94-100); ABG PH 7.42 (7.37-7.43); ABG PO2 67 MMHG (79-93); ABG TCO2 50.8 MMOL/L (21.0-31.0)
[2019-11-08 09:53] LABS: ABG PCO2 75 MMHG (35-45); ALLENS TEST YES-POS; INSPIRED O2 100%; PATIENT TEMP 36.1; VENTILATOR NO
[2019-11-08 09:55] LABS: CHLORIDE 92 MMOL/L (98-107); POTASSIUM 4.4 MMOL/L (3.6-5.0); SODIUM 145 MMOL/L (135-145)
[2019-11-08 09:56] LABS: BASOPHILS % (AUTO) 0 % (0-10); EOSINOPHILS # (AUTO) 0.1 10^3/uL (0.0-0.3); EOSINOPHILS % (AUTO) 0 % (0-10); HEMATOCRIT 39 % (40-54); HEMOGLOBIN 11.4 G/DL (13.3-17.7); LYMPHOCYTES # (AUTO) 2.5 X 10^3 (1.0-4.0); LYMPHOCYTES % (AUTO) 19 % (12-44); MEAN CORPUSCULAR HEMOGLOBIN 30 PG (25-34); MEAN CORPUSCULAR HGB CONC 30 G/DL (32-36); MEAN CORPUSCULAR VOLUME 102 FL (80-99); MEAN PLATELET VOLUME 10.4 FL (7.4-10.4); MONOCYTES # (AUTO) 0.9 X 10^3 (0.0-1.0); MONOCYTES % (AUTO) 7 % (0-12); NEUTROPHILS # (AUTO) 9.6 X 10^3 (1.8-7.8); NEUTROPHILS % (AUTO) 73 % (42-75); PLATELET COUNT 158 10^3/uL (130-400); WHITE BLOOD COUNT 13.1 10^3/uL (4.3-11.0)
[2019-11-08 09:57] LABS: CALCIUM 9.5 MG/DL (8.5-10.1)
[2019-11-08 09:58] LABS: GLUCOSE 117 MG/DL (70-105); TOTAL PROTEIN 6.9 GM/DL (6.4-8.2)
[2019-11-08 09:59] LABS: CARBON DIOXIDE 43 MMOL/L (21-32)
[2019-11-08 10:00] LABS: BILIRUBIN,TOTAL 0.4 MG/DL (0.1-1.0)
[2019-11-08 10:01] LABS: ALKALINE PHOSPHATASE 87 U/L (40-136); CREATININE SERUM 0.86 MG/DL (0.60-1.30); GFR ESTIMATED > 60
--- NOTE | 2019-11-08 10:01 | Diagnostic Imaging Report ---
EXAMINATION: Portable erect AP chest at 9:45 AM INDICATION: Respiratory distress, chest pain The appearance of the chest has worsened since the prior exam of 04/17/2019 as the right mid lung and right lung base are now completely opacified by atelectasis/infiltrate and fluid. There may be some atelectasis/infiltrate in the right suprahilar region as well. It would be unlikely that these findings are due to a neoplastic mass as the CT chest exam performed on 05/31/2019 failed to show any sign of a mass involving the right hilum. If further study is desired, however, then a repeat CT chest exam would be recommended. The left lung is generally clear. The heart, where visualized, seems similar in size to the prior exam. The sternotomy wires and surgical clips noted previously are again evident and no different. The mediastinum is not widened. The osseous structures are intact. IMPRESSION: 1. The appearance of the chest has worsened as there is much greater involvement of the right lung by pneumonia/atelectasis and fluid. If further study is desired, then CT chest would be recommended. 2. There is no acute cardiopulmonary abnormality noted otherwise. Dictated by: Dictated on workstation # [id number]
[2019-11-08 10:02] LABS: BUN/CREATININE RATIO 10
[2019-11-08 10:04] LABS: ALANINE AMINOTRANSFERASE 23 U/L (0-55)
--- NOTE | 2019-11-08 10:14 | ED General ---
General Chief Complaint: Respiratory Problems Stated Complaint: SOA Nursing Triage Note: pt brouhgt in by [facility] from home with complaint of soa that starteed this morning. states he normally wears 4lnc at home, but for ems was 74% on 6L. pt is complaining of chest pain. was given 1 nitro, duoneb and albuterol by ems. Nursing Sepsis Screen: No Definite Risk Source of Information: Patient Exam Limitations: No Limitations History of Present Illness Date Seen by Provider: Nov 08, 2019 Time Seen by Provider: 09:12 Initial Comments Here by EMS with report of markedly increased shortness of air. Normally wears 4 L via nasal cannula at home and sats around the lower 90s. Today he arrives on 6 L via nasal cannula with O2 sat 79%. Patient did receive DuoNeb and albuterol treatment in route. Patient states that he cannot tolerate a mask and would not go to [place] BiPAP or CPAP. He is barely able to tolerate the surgical facemask for protection. Denies fevers or chills. Denies any activity that would have caused exposure to COVID-19. Denies sore throat or runny nose. Does have COPD and states that he has had similar events. Does have history of heart disease with previous stent. He is on Plavix. Does report history of chest tightness and pain. Timing/Duration: 12 Hours Severity: Moderate, Severe Associated Systoms: No Chest Pain; Cough; No Fever/Chills, No Nausea/Vomiting; Shortness of Air, Weakness Allergies and Home Medications Allergies Coded Allergies: budesonide (Verified Allergy, Severe, angioedema, 12/06/18) formoterol (Verified Allergy, Severe, angioedema, 12/06/18) tetanus toxoid, adsorbed (Verified Allergy, Mild, hives, 12/06/18) DOROTA Inhibitors (Verified Allergy, Unknown, Angioedema, 12/06/18) Home Medications Albuterol Sulfate 2.5 Mg/3 Ml Vial.neb, 2.5 MG NEB TID, (Reported) Albuterol Sulfate 1 Puff Puff, 2 PUFF IH PRN PRN for SHORTNESS OF BREATH, (Reported) 1 PUFF = 90 MCG Amlodipine Besylate 5 Mg Tablet, 5 MG PO DAILY, (Reported) Aripiprazole 30 Mg Tablet, 30 MG PO DAILY, (Reported) Aspirin 81 Mg Tablet.dr, 81 MG PO DAILY, (Reported) Atorvastatin Calcium 80 Mg Tablet, 80 MG PO DAILY, (Reported) Azithromycin 250 Mg Tablet, 250 MG PO HS Prescribed by: JUAREZ LUQUE on 04/18/19855 Bupropion HCl 75 Mg Tablet, 75 MG PO DAILY, (Reported) Carvedilol 6.25 Mg Tablet, 6.25 MG PO BID, (Reported) Cephalexin 500 Mg Capsule, 500 MG PO BID Prescribed by: JUAREZ LUQUE on 04/18/19855 Clopidogrel Bisulfate 75 Mg Tablet, 75 MG PO DAILY, (Reported) Fluticasone/Salmeterol 1 Each Blst.w.dev, 1 EACH IH DAILY, (Reported) Isosorbide Mononitrate 30 Mg Tab.er.24h, 15 MG PO DAILY, (Reported) TAKES 1/2 (30MG) TABLET Mirtazapine 30 Mg Tablet, 30 MG PO HS, (Reported) Montelukast Sodium 10 Mg Tablet, 10 MG PO DAILY, (Reported) Nitroglycerin 0.4 Mg Tab.subl, 0.4 MG PO UD PRN for CHEST PAIN, (Reported) [place] 3 Polyunsat Fatty Acids 1,000 Mg Cap, 1,000 MG PO DAILY, (Reported) Prednisone 20 Mg Tab, 40 MG PO DAILY Prescribed by: JUAREZ LUQUE on 04/18/19855 Ranolazine 1,000 Mg Tab.er.12h, 1,000 MG PO BID, (Reported) Sertraline HCl 100 Mg Tablet, 100 MG PO DAILY, (Reported) Patient Home Medication List Home Medication List Reviewed: Yes Review of Systems Review of Systems Constitutional: see HPI; No chills, No fever EENTM: no symptoms reported Respiratory: see HPI, cough, dyspnea on exertion, orthopnea, short of breath, wheezing Cardiovascular: No chest pain, No edema Gastrointestinal: No abdominal pain, No nausea, No vomiting Genitourinary: No dysuria, No pain Musculoskeletal: no symptoms reported Skin: no symptoms reported Psychiatric/Neurological: Anxiety; Denies Headache; Weakness All Other Systems Reviewed Negative Unless Noted: Yes Past Wcobbnx-Qimrzz-Hyrtts Hx Past Med/Social Hx: Reviewed Nursing Past Med/Soc Hx Patient Social History Alcohol Use: Denies Use Recreational Drug Use: No Smoking Status: Former Smoker Type Used: Cigarettes Former Smoker, Quit: Dec 16, 2017 2nd Hand Smoke Exposure: Yes Recent Foreign Travel: No Contact w/Someone Who Travel: No Recent Infectious Disease Expo: No Recent Hopitalizations: No Immunizations Up To Date Tetanus Booster (TDap): Unknown PED Vaccines UTD: No Date of Pneumonia Vaccine: Mar 23, 2013 Date of Influenza Vaccine: Jul 31, 2017 Seasonal Allergies Seasonal Allergies: No Past Medical History Surgeries: Yes Abdominal, Cardiac, CABG, Coronary Stent, Tonsillectomy, Vascular Surgery Respiratory: Yes (WEARS O2 AT 5L/NC CONTINUOUSLY. RUL PULMONARY NODULE) Pneumonia, Chronic Bronchitis, COPD Currently Using CPAP: No Currently Using BIPAP: No Cardiac: Yes Coronary Artery Disease, Deep Vein Thrombosis, Heart Attack, High Cholesterol, Hypertension, Peripheral Vascular Neurological: Yes Stroke Reproductive Disorders: No Sexually Transmitted Disease: No HIV/AIDS: No Genitourinary: No Gastrointestinal: Yes Gastroesophageal Reflux, Ulcer Musculoskeletal: Yes Arthritis, Chronic Back Pain Endocrine: No HEENT: No Loss of Vision: Denies Hearing Impairment: Denies Cancer: No Psychosocial: Yes Sleep Difficulties, Anxiety, Schizophrenia, Depression Integumentary: No Blood Disorders: No Adverse Reaction/Blood Tranf: No Family Medical History Diabetes mellitus 19 MOTHER FH: heart disease 19 FATHER Heart Disease, Diabetes Physical Exam-Suspected Sepsis Physical Exam Vital Signs Vital Signs - First Documented 11/08/19 11/08/19 09:11 09:29 Temp 36.7 Pulse 118 Resp 32 B/P (MAP) 136/72 (93) Pulse Ox 81 O2 Delivery OxyMask O2 Flow Rate 15.00 FiO2 100 Capillary Refill : Less Than 3 Seconds Blood Pressure Mean: 93 Height, Weight, BMI Height: 5'8.00" Weight: 174lbs. 0.0oz. 78.168240pi; 27.00 BMI Method:Stated General Appearance: Chronically ill, Moderate Distress HEENT: PERRL/EOMI, Pharynx Normal Neck: Non Tender, Supple Respiratory: Decreased Breath Sounds, Wheezing (and) Cardiovascular: Tachycardia (a type) Extremity: Normal Inspection, Normal Range of Motion, Non Tender, No Calf Tenderness Neurologic/Psychiatric: Alert, Oriented x3 Skin: normal color, warm/dry Focused Exam Lactate Level 11/08/19 09:21: Lactic Acid Level 0.99 Lactic Acid Level Laboratory Tests Test 11/08/19 09:21 Lactic Acid Level 0.99 MMOL/L (0.50-2.00) Progress/Results/Core Measures Suspected Sepsis Recent Fever Within 48 Hours: No Infection Criteria Present: None New/Unexplained Altered Menta: No Sepsis Screen: No Definite Risk SIRS Temperature: Pulse: 118 Respiratory Rate: 32 Laboratory Tests 11/08/19 09:17: White Blood Count 13.1H Blood Pressure 136 /72 Mean: 93 11/08/19 09:21: Lactic Acid Level 0.99 Laboratory Tests 11/08/19 09:17: Creatinine 0.86, Platelet Count 158, Total Bilirubin 0.4 11/08/19 10:04: INR Comment 0.9 Results/Orders Lab Results Laboratory Tests Test 11/08/19 09:17 11/08/19 09:21 11/08/19 09:46 11/08/19 10:04 Range/Units White Blood Count 13.1 H 4.3-11.0 10^3/uL Red Blood Count 3.78 L 4.35-5.85 10^6/uL Hemoglobin 11.4 L 13.3-17.7 G/DL Hematocrit 39 L 40-54 % Mean Corpuscular Volume 102 H 80-99 FL Mean Corpuscular Hemoglobin 30 25-34 PG Mean Corpuscular Hemoglobin Concent 30 L 32-36 G/DL Red Cell Distribution Width 13.0 10.0-14.5 % Platelet Count 158 130-400 10^3/uL Mean Platelet Volume 10.4 7.4-10.4 FL Neutrophils (%) (Auto) 73 42-75 % Lymphocytes (%) (Auto) 19 12-44 % Monocytes (%) (Auto) 7 0-12 % Eosinophils (%) (Auto) 0 0-10 % Basophils (%) (Auto) 0 0-10 % Neutrophils # (Auto) 9.6 H 1.8-7.8 X 10^3 Lymphocytes # (Auto) 2.5 1.0-4.0 X 10^3 Monocytes # (Auto) 0.9 0.0-1.0 X 10^3 Eosinophils # (Auto) 0.1 0.0-0.3 10^3/uL Basophils # (Auto) 0.0 0.0-0.1 10^3/uL Sodium Level 145 135-145 MMOL/L Potassium Level 4.4 3.6-5.0 MMOL/L Chloride Level 92 L 98-107 MMOL/L Carbon Dioxide Level 43 H 21-32 MMOL/L Anion Gap 10 5-14 MMOL/L Blood Urea Nitrogen 9 7-18 MG/DL Creatinine 0.86 0.60-1.30 MG/DL Estimat Glomerular Filtration Rate > 60 BUN/Creatinine Ratio 10 Glucose Level 117 H 70-105 MG/DL Calcium Level 9.5 8.5-10.1 MG/DL Corrected Calcium 9.5 8.5-10.1 MG/DL Total Bilirubin 0.4 0.1-1.0 MG/DL Aspartate Amino Transf (AST/SGOT) 24 5-34 U/L Alanine Aminotransferase (ALT/SGPT) 23 0-55 U/L Alkaline Phosphatase 87 40-136 U/L Total Protein 6.9 6.4-8.2 GM/DL Albumin 4.0 3.2-4.5 GM/DL Lactic Acid Level 0.99 0.50-2.00 MMOL/L Blood Gas Puncture Site L RAD Blood Gas Patient Temperature 36.1 Arterial Blood pH 7.42 7.37-7.43 Arterial Blood Partial Pressure CO2 75 *H 35-45 MMHG Arterial Blood Partial Pressure O2 67 L 79-93 MMHG Arterial Blood HCO3 48 *H 23-27 MMOL/L Arterial Blood Total CO2 50.8 H 21.0-31.0 MMOL/L Arterial Blood Oxygen Saturation 90 L 94-100 % Arterial Blood Base Excess 22.0 H -2.5-2.5 MMOL/L Dexter Test YES-POS Blood Gas Ventilator Setting NO Blood Gas Inspired Oxygen 100% Prothrombin Time 11.9 L 12.2-14.7 SEC INR Comment 0.9 0.8-1.4 Activated Partial Thromboplast Time 30 24-35 SEC Test 11/08/19 10:09 11/08/19 11:02 Range/Units Troponin I < 0.028 <0.028 NG/ML Urine Color YELLOW Urine Clarity SL CLOUDY Urine pH 8.0 5-9 Urine Specific [place] 1.020 1.016-1.022 Urine Protein 1+ H NEGATIVE Urine Glucose (UA) NEGATIVE NEGATIVE Urine Ketones TRACE H NEGATIVE Urine Nitrite NEGATIVE NEGATIVE Urine Bilirubin 1+ H NEGATIVE Urine Urobilinogen 1.0 < = 1.0 MG/DL Urine Leukocyte Esterase NEGATIVE NEGATIVE Urine RBC (Auto) NEGATIVE NEGATIVE Urine RBC NONE /HPF Urine WBC 0-2 /HPF Urine Crystals NONE /LPF Urine Bacteria TRACE /HPF Urine Casts NONE /LPF Urine Mucus MODERATE H /LPF Urine Culture Indicated CULTURE PENDING My Orders Orders - ANTOINETTE SANDHU MD Albuterol Pre-Mix Nebs (Rt) (Proventil (11/08/19 09:13) Albuterol Pre-Mix Nebs (Rt) (Proventil (11/08/19 09:37) Ipratropium 0.02% Neb Solution (Atrovent (11/08/19 09:45) Methylprednisolone Sod Succ (Solu-Medrol (11/08/19 09:37) Cbc With Automated Diff (11/08/19 09:37) Comprehensive Metabolic Panel (11/08/19 09:37) Blood Culture (11/08/19 09:37) Sputum Culture (11/08/19 09:37) Urinalysis (11/08/19 09:37) Urine Culture (11/08/19 09:37) Protime With Inr (11/08/19 09:37) Partial Thromboplastin Time (11/08/19 09:37) Chest 1 View, Ap/Pa Only (11/08/19 09:37) Ed Iv/Invasive Line Start (11/08/19 09:37) Ed Iv/Invasive Line Start (11/08/19 09:37) Vital Signs Adult Sepsis Patie Q15M (11/08/19 09:37) O2 (11/08/19 09:37) Remove Rings In Anticipation O (11/08/19 09:37) Lactic Acid Analyzer (11/08/19 09:37) Svn Small Volume Nebulizer (11/08/19 09:37) Svn Small Volume Nebulizer (11/08/19 09:37) Arterial Blood Gas (11/08/19 09:37) Ekg Tracing (11/08/19 10:17) Troponin I (11/08/19 10:17) Piperacillin Sodium/Tazobactam (Zosyn Vi (11/08/19 11:30) Medications Given in ED Current Medications Medications Dose Ordered Sig/Shira Route Start Time Stop Time Status Last Admin Dose Admin Albuterol Sulfate 2.5 mg STK-MED ONCE .ROUTE 11/08/19 09:13 11/08/19 09:22 DC 11/08/19 09:24 2.5 MG Ipratropium [place] 0.5 mg ONCE ONCE IH 11/08/19 09:45 11/08/19 09:46 DC 11/08/19 09:51 0.5 MG Vital Signs/I&O 11/08/19 11/08/19 11/08/19 11/08/19 09:11 09:11 09:24 09:29 Temp 36.7 Pulse 118 Resp 32 B/P (MAP) 136/72 (93) Pulse Ox 81 74 83 83 O2 Delivery OxyMask Nasal Cannula OxyMask Vapotherm O2 Flow Rate 15.00 6.00 10.00 40.00 FiO2 100 11/08/19 09:52 Pulse Ox 96 O2 Delivery Vapotherm O2 Flow Rate 40.00 FiO2 100 Capillary Refill : Less Than 3 Seconds Blood Pressure Mean: 93 Progress Note : Progress Note Seen and evaluated. IV, labs, EKG ordered. ASA 324 by mouth ordered. Considered intubation as patient cannot tolerate facemask. We will initiate Vapotherm and continuous hour-long treatment to see if that helps. ABG ordered. Monitor patient. 1015: O2 sats improved 100% and we will titrate Vapotherm. Continuous hour-long treatment continues. Patient still complaining of chest tightness/pain. Monitor patient. 1133: Patient is doing better on Vapotherm and we were able to titrate down slightly. Chest x-ray shows concerns for significant right sided pneumonia. Initiated Zosyn 4.5 mg IV. I discussed the case with Dr. Gray his rod puller who accepts him in consult. I did discuss the case with Dr. Luque and she accepts patient for admission, inpatient status. Patient agrees with plan. ECG Initial ECG Impression Date: Nov 08, 2019 Initial ECG Impression Time: 09:12 Initial ECG Rate: 119 Initial ECG Rhythm: S.Tach Initial ECG Comparisson: Unchanged Comment Sinus tachycardia sinus tachycardia with for left axis deviation. No evidence of ST elevation DC. Interpreted by me. Diagnostic Imaging Diagonstic Imaging: Xray Plain Films/CT/US/NM/MRI: chest Comments [facility] [place], [place] NAME: [facility] REC#: [id number] PT STATUS: REG ER : 1955 PHYSICIAN: ANTOINETTE SANDHU MD ADMIT DATE: 11/08/19/ER Draft Date of Exam:11/08/19 CHEST 1 VIEW, AP/PA ONLY EXAMINATION: Portable erect AP chest at 9:45 AM INDICATION: Respiratory distress, chest pain The appearance of the chest has worsened since the prior exam of 04/17/2019 as the right mid lung and right lung base are now completely opacified by atelectasis/infiltrate and fluid. There may be some atelectasis/infiltrate in the right suprahilar region as well. It would be unlikely that these findings are due to a neoplastic mass as the CT chest exam performed on 05/31/2019 failed to show any sign of a mass involving the right hilum. If further study is desired, however, then a repeat CT chest exam would be recommended. The left lung is generally clear. The heart, where visualized, seems similar in size to the prior exam. The sternotomy wires and surgical clips noted previously are again evident and no different. The mediastinum is not widened. The osseous structures are intact. IMPRESSION: 1. The appearance of the chest has worsened as there is much greater involvement of the right lung by pneumonia/atelectasis and fluid. If further study is desired, then CT chest would be recommended. 2. There is no acute cardiopulmonary abnormality noted otherwise. Dictated on workstation # [id number] Dict: 11/08/19 0953 Trans: 11/08/19 1001 [place] [id number] Interpreted by: RYAN RODRIGUEZ MD Electronically signed by: Departure Communication (Admissions) Time/Spoke to Admitting Phy: 11:26 Time/Spoke to Consulting Phy: 11:26 Impression Primary Impression: Pneumonia involving right lung Additional Impressions: Respiratory distress Hypoxia Disposition: ADMITTED INPATIENT Condition: Stable Admissions Decision to Admit Reason: Admit from ER (General) Decision to Admit/Date: Nov 08, 2019 Time/Decision to Admit Time: 11:26 Departure-Patient Inst. Referrals: BRANDON RODAS MD (PCP/Family) Primary Care Physician ANTOINETTE SANDHU MD Nov 08, 2019 10:14
[2019-11-08 10:24] LABS: INR 0.9 (0.8-1.4); PROTHROMBIN TIME PATIENT 11.9 SEC (12.2-14.7)
[2019-11-08 11:11] LABS: CLARITY,URINE SL CLOUDY; COLOR,URINE YELLOW; GLUCOSE, URINE (UA) NEGATIVE (NEGATIVE); KETONES,URINE TRACE (NEGATIVE); LEUKOCYTE ESTERASE ,URINE NEGATIVE (NEGATIVE); NITRITE,URINE NEGATIVE (NEGATIVE); PROTEIN,URINE 1+ (NEGATIVE)
[2019-11-08 11:21] LABS: BACTERIA,URINE TRACE /HPF; BILIRUBIN,URINE 1+ (NEGATIVE); WBC,URINE 0-2 /HPF
[2019-11-08] MEDS ORDERED: PIPERACILLIN SODIUM/TAZOBACTAM 4.5 GM in NS (IVPB) 100 ML IV ONE (11:30)
[2019-11-08] MEDS ORDERED: morphine INJ 10 MG/ML 1ML (SYR OR VIAL) ONE (12:10)
[2019-11-08] MEDS ORDERED: NS (IVPB) 100 ML ONE (12:11)
[2019-11-08] MEDS ORDERED: PIPERACILLIN/TAZO 4.5 GM VIAL (ZOSYN) IV ONE (12:11)
[2019-11-08] MEDS ORDERED: morphine INJ 10 MG/ML 1ML (SYR OR VIAL) IVP ONE (12:15)
[2019-11-08] MEDS ORDERED: EPINEPHrine 1 MG INJECTION 2 MG in NS (IVPB) 248 ML IV SCH (13:15)
[2019-11-08] MEDS ORDERED: CATHETER FLUSH 10 ML SYR IV PRN (13:15)
[2019-11-08] MEDS: NOREPINEPHRINE 4 MG/250 ML 250 ML IV SCH ×2 (13:21→20:37)
[2019-11-08] MEDS: VASOPRESSIN INJECTION 20 UNIT in NORMAL SALINE 100 ML IV SCH ×2 (13:22→20:37)
--- NOTE | 2019-11-08 13:35 | History & Physical-Hospitalist ---
History of Present Illness HPI/Chief Complaint Patient is a 63-year-old male with a past medical history of coronary artery disease status post failed CABG with resultant coronary stenting, artery disease, ischemic cardiomyopathy, hypertension, peripheral artery disease who presented to the emergency department due chest pain and shortness of breath. He states it started suddenly this morning and yesterday he felt well. He was short of breath with chest pain across his chest. He took a nitro without any improvement. This prompted him to seek evaluation in the ER so he summoned an ambulance. He was given ASA x2 in the ambulance. On presentation he was found to have oxygen saturations of 74% on 6lpm. He was started on an oxymask but did not tolerate it well. Intubation was considered but he was transitioned to Vapotherm and did well with this. He was admitted to the ICU for pneumonia. Source: patient Date Seen 11/08/19 Time Seen by a Provider: 14:38 Attending Physician Juarez Tolentino MD PCP Judi Zepeda MD Referring Physician Date of Admission Nov 08, 2019 at 12:05 Home Medications & Allergies Home Medications Reviewed patient Home Medication Reconciliation performed by pharmacy medication reconciliations personnel and payroll technician and/or nursing. Patients Allergies have been reviewed. Allergies Allergies Coded Allergies budesonide (Verified Allergy, Severe, angioedema, 12/06/18) formoterol (Verified Allergy, Severe, angioedema, 12/06/18) tetanus toxoid, adsorbed (Verified Allergy, Mild, hives, 12/06/18) DOROTA Inhibitors (Verified Allergy, Unknown, Angioedema, 12/06/18) Past Pqkeunz-Ylqtkt-Lfanto Hx Past Med/Social Hx: Reviewed Nursing Past Med/Soc Hx Patient Social History Marrital Status: Alcohol Use: Denies Use Recreational Drug Use: No Smoking Status: Former Smoker Former Smoker, Quit: Dec 16, 2017 Type Used: Cigarettes 2nd Hand Smoke Exposure: Yes Recent Foreign Travel: No Contact w/other who traveled: No Recent Hopitalizations: No Recent Infectious Disease Expo: No Immunizations Up To Date Tetanus Booster (TDap): Unknown Pediatric: No Date of Pneumonia Vaccine: Mar 23, 2013 Date of Influenza Vaccine: Jul 31, 2017 Seasonal Allergies Seasonal Allergies: No Past Medical History Surgeries: Abdominal, Cardiac, CABG, Coronary Stent, Tonsillectomy, Vascular Surgery Respiratory: COPD Currently Using CPAP: No Currently Using BIPAP: No Cardiac: Coronary Artery Disease, Deep Vein Thrombosis, Heart Attack, High Cholesterol, Hypertension, Peripheral Vascular Neurological: Stroke Reproductive: No Sexually Transmitted Disease: No HIV/AIDS: No Gastrointestinal: Gastroesophageal Reflux, Ulcer Musculoskeletal: Arthritis, Chronic Back Pain Loss of Vision: Denies Hearing Impairment: Denies Psychosocial: Sleep Difficulties, Anxiety, Schizophrenia, Depression History of Blood Disorders: No Adverse Reaction to Blood Ang: No Family History Reviewed Nursing Family Hx Diabetes mellitus 19 MOTHER FH: heart disease 19 FATHER Heart Disease, Diabetes Review of Systems Constitutional: No chills, No fever EENTM: no symptoms reported Respiratory: cough, dyspnea on exertion; No phlegm; short of breath Cardiovascular: see HPI, chest pain, edema, Hx of Intervention Gastrointestinal: no symptoms reported Genitourinary: no symptoms reported Musculoskeletal: no symptoms reported Skin: no symptoms reported Psychiatric/Neurological: No Symptoms Reported Physical Exam Physical Exam Vital Signs Vital Signs - First Documented 11/08/19 11/08/19 09:11 09:29 Temp 36.7 Pulse 118 Resp 32 B/P (MAP) 136/72 (93) Pulse Ox 81 O2 Delivery OxyMask O2 Flow Rate 15.00 FiO2 100 Capillary Refill : NONE Height, Weight, BMI Height: 5'8.00" Weight: 174lbs. 0.0oz. 78.037950ds; 27.00 BMI Method:Stated General Appearance: No Apparent Distress, Chronically ill HEENT: PERRL/EOMI, Moist Mucous Membranes; No Scleral Icterus (L), No Scleral Icterus (R) Neck: Normal Inspection, Supple Respiratory: No Accessory Muscle Use, Decreased Breath Sounds, Wheezing, Other (on vapotherm) Cardiovascular: Regular Rate, Rhythm, No Murmur Gastrointestinal: Normal Bowel Sounds, Non Tender, Soft Extremity: No Calf Tenderness, Swelling (trace bilaterally) Neurologic/Psychiatric: Alert, Oriented x3, Normal Mood/Affect Skin: Normal Color, Warm/Dry Results Results/Procedures Labs Laboratory Tests 11/09/19 03:04 11/10/19 02:53 Patient resulted labs reviewed. Imaging: Reviewed Imaging Report Imaging Date of Exam:11/08/19 CHEST 1 VIEW, AP/PA ONLY EXAMINATION: Portable erect AP chest at 9:45 AM INDICATION: Respiratory distress, chest pain The appearance of the chest has worsened since the prior exam of 04/17/2019 as the right mid lung and right lung base are now completely opacified by atelectasis/infiltrate and fluid. There may be some atelectasis/infiltrate in the right suprahilar region as well. It would be unlikely that these findings are due to a neoplastic mass as the CT chest exam performed on 05/31/2019 failed to show any sign of a mass involving the right hilum. If further study is desired, however, then a repeat CT chest exam would be recommended. The left lung is generally clear. The heart, where visualized, seems similar in size to the prior exam. The sternotomy wires and surgical clips noted previously are again evident and no different. The mediastinum is not widened. The osseous structures are intact. IMPRESSION: 1. The appearance of the chest has worsened as there is much greater involvement of the right lung by pneumonia/atelectasis and fluid. If further study is desired, then CT chest would be recommended. 2. There is no acute cardiopulmonary abnormality noted otherwise. Assessment/Plan Admission Diagnosis Acute on Chronic Respiratory Failure Admission Status: Inpatient Order (span 2 midnights) Reason for Inpatient Admission: respiratory failure with high oxygen requirement, will take more than two midnights to stabilize Assessment and Plan Acute on Chronic Respiratory Failure Sepsis- present on arrival Right lung pneumonia COPD On Vapotherm Pulm consulted, appreciate recs MAT protocol Continue Zosyn Continue Steroids CAD s/p CABG PAD CHF with Ef 45% Last cath 03/2018 Troponin negative HTN Well controlled, trend Clinical Quality Measures DVT/VTE Risk/Contraindication: Risk Factor Score Per Nursin RFS Level Per Nursing on Admit: 4+=Very High JUAREZ TOLENTINO MD Nov 08, 2019 13:35
--- OUTSIDE RECORDS SUMMARY | 2019-11-08 13:53 | XMS REPORT ---
Author Author Ethan BORGES Organization [facility] Address [address] [place] [address] Care Team Providers Care Radiation Therapist Name Role Phone MIRZA BORGES Unavailable PROBLEMS Unknown Problems ALLERGIES No Information ENCOUNTERS Encounter Location Date Diagnosis [facility] [address] [facility] [id number] [address] [place] [phone] Jan, [facility] [address] [facility] [id number] [address] [place] [phone] Jan, [facility] [address] [facility] [id number] [address] [place] [phone] Dec, IMMUNIZATIONS No Known Immunizations SOCIAL HISTORY Never Assessed REASON FOR VISIT PLAN OF CARE VITAL SIGNS MEDICATIONS Unknown Medications RESULTS No Results PROCEDURES No Known procedures INSTRUCTIONS MEDICATIONS ADMINISTERED No Known Medications
--- OUTSIDE RECORDS SUMMARY | 2019-11-08 13:53 | XMS REPORT ---
Author Author [facility] Address [address] [place] [address] Care Team Providers Care Mine Utility Operator Name Role Phone SONYA FERNANDEZ Unavailable JOSHUA CASTILLO MD Unavailable Unavailable POWERS DO, OUMAR Unavailable Unavailable POWERS DO, OUMAR Unavailable Unavailable CATE HERRERA COOK PICKLED MEAT Unavailable Unavailable HERBERT ALANIS MD Unavailable Unavailable HERBERT ALANIS MD Unavailable Unavailable MITCHELL JOHNSON MD Unavailable Unavailable FRANCISCA DO, DEBBIE K Unavailable Unavailable XIMENA QUINONES DO M Unavailable Unavailable CHRISTOPHER HULL MD Unavailable Unavailable CHRISTOPHER HULL MD Unavailable Unavailable DALLIN LUCAS MD Unavailable Unavailable DALLIN LUCAS MD Unavailable Unavailable IRIS NELSON MD Unavailable Unavailable YOUNG MCALLISTER Unavailable Unavailab IRIS Devries Unavailable Unavailable JING HOLGUIN DO Unavailable Unavailable SCOTT CRANE FAC, ALI FACP CCDS Unavailable Unavailabl CORNELL Caro MD Unavailable Unavailable YENNY GILL MD Unavailable Unavailable YENNY GILL MD Unavailable Unavailable VIVEK ALSTON MD Unavailable Unavailable VIVEK ALSTON MD Unavailable Unavailable FRANCISCO MARIANO Unavailable Unavailable NAV PIERCE MD Unavailable Unavailable JOSHUA CASTILLO MD Unavailable Unavailable Migration, Doctor Unavailable Unavailable JOSHUA CASTILLO MD Unavailable Unavailable MARTIN GRULLON MD Unavailable Unavailable CATE HERRERA COOK PICKLED MEAT Unavailable Unavailable JOELLE KIMBLE MD Unavailable Unavailable JOELLE KIMBLE MD Unavailable Unavailable SCOTT CRANE FAC, ALI FACP CCDS Unavailable Unavailabl XIMENA Cha DO M Unavailable Unavailable IRIS NELSON MD Unavailable Unavailable FRANCISCA , DEBBIE K Unavailable Unavailable RODAS, ADAIR-CRISS Unavailable Unavailable RODAS, ADAIR-CRISS Unavailable Unavailable RODAS, ADAIR-CRISS Unavailable Unavailable SONYA FERNANDEZ Unavailable Unavailable HORTENCIA LYNN Unavailable Unavailable JUAREZ TOLENTINO MD Unavailable Unavailable JUAREZ TOLENTINO MD Unavailable Unavailable CATE HERRERA APRN Unavailable Unavailable SONYA FERNANDEZ Unavailable Unavailable SONYA FERNANDEZ Unavailable Unavailable MIRZA BORGES Unavailable Unavailable Unavailable Unavailable Unavailable Unavailable Unavailable Allergies Normalized Allergy Reported Date of Reaction(s) Care Provider Facility Allergy Type classification allergen Allergy Onset NEGATED no information Angiotensin 05-08-2017 - Angioedema CHRI NEGRA Not Available Drug Allergy Converting JAVIER (14026) (1 source.) Enzyme (Davin) Inhibitors Drug Allergy Angiotensin Angiotensin 05-06-2017 - Angioedema [facility]DI POWERS , Not Available (21 sources.) Converting Converting DO (99251) Enzyme (DAVIN) Enzyme (Davin) Inhibitors Inhibitors Drug Allergy Budesonide / budesonide / OTHER, JENISE BROKOB Not Available (31 sources.) formoterol formoterol MODERATE, (23815) UNKNOWN Drug Allergy tetanus toxoid tetanus toxoid OTHER, JENISE BROK OB Not Available (21 sources.) vaccine, vaccine, MODERATE (34422) inactivated inactivated DA (30 Unclassified tetanus 11-24-2008 - hives JOSHUA BELTRAN I , Not Available sources.) toxMD demetrius (87557) adsorbed no information Unclassified TETANUS-DIPHTH UNKNOWN JENISE BROK OB Not Available (20 sources.) ERIA (60253) TOXOIDS-TD Medications The data below is from unstructured sources Unknown Medications Unknown Medications No Known Medications No Known Medications Unknown Medications No Known Medications Problems Active Problems Problem Normalized Date Last Normalized Normalized Provider Fa cility Classification Problem(s) Recorded Problem Problem Sta tus Duration Other Abnormal Episodic Active MITCHELL JOHNSON Not Steven momin nutritional; weight loss MD (13194) endocrine; and metabolic disorders (4 sources.) Residual Acquired Episodic Active ANTOINETTE Not Available codes; absence of MD PHOEBE (94703) unclassified other organs (10 sources.) Respiratory Acute and Chronic Active JOSHUA CASTILLO , Not A vailable failure; chronic (23376) insufficiency; respiratory arrest (adult) failure with (21 sources.) hypercapnia Translations: [ DEPENDENCE ON SUPPLEMENTAL OXYGEN, ACUTE AND CHRONIC RESPIRATORY FAILURE WI, SUPPLEMENTAL OXYGEN] Acute Acute Episodic Active no name no informatio n bronchitis (5 bronchitis due sources.) to other specified organisms Other upper Acute Episodic Active CORNELL NDUKWU Not Svetlana ilable respiratory bronchospasm MD (92677) disease (3 sources.) Other upper Acute Episodic Active [facility] Hospita l respiratory sinusitis, [place] of infections (6 unspecified [place] sources.) Translations: [facility] (45136) [ ACUTE SINUSITIS, UNSPECIFIED, ACUTE NASOPHARYNGITI S [COMMON COLD], ACUTE NASOPHARYNGITI S [COMMON COLD]] Alcohol-relate Alcohol Chronic Active [facility] Via d disorders (7 dependence, [facility] sources.) [facility] [place] (11477) Allergic Allergy status Episodic Active ANTOINETTE Not Svetlana ilable reactions (22 to other MD PHOEBE (32767) sources.) drugs, medicaments and biological substances status Translations: [ ALLERGY STATUS TO SERUM AND VACCINE STAT, ALLERGY STATUS TO OTH DRUG/MEDS/BIOL SUB, ALLERGY STATUS TO ANALGESIC AGENT STATUS, ALLERGY STATUS TO SERUM AND VACCINE STAT] Other nervous Anesthesia of Episodic Active no name no i nformation system skin disorders (2 sources.) Other injuries Angioneurotic Episodic Active [facility] Hospital and conditions edema, not [place] [facility] of due to elsewhere [place] external classified [facility] (74217) causes (1 source.) Anxiety Anxiety Chronic Active OUMAR POWERS , Not Avai lable disorders (20 disorder, DO (78754) sources.) unspecified Translations: [ ANXIETY STATE NOS] Pleurisy; Atelectasis Episodic Active JUAREZ TOLENTINO [facility] V ia pneumothorax; [facility] pulmonary [facility] - collapse (7 [place] sources.) (81531) Coronary Atheroscleroti Chronic Active JOSHUA CASTILLO , No t Available atherosclerosi c heart (19330) s and other disease of heart disease viejas (22 sources.) coronary artery without angina pectoris Translations: [ CORON ATHEROSCLER NOS TYPE VESSEL, NATIV, CORONARY ATHEROSCLEROSI S OF AMBLER CORON, CHRONIC TOTAL OCCLUSION OF CORONARY TOM, AORTOCORONARY BYPASS, INTERMED CORONARY SYND, OTHER FORMS OF ANGINA PECTORIS, ATHSCL HEART DISEASE OF AMBLER CORONARY , CHR ISCHEMIC HRT DIS NEC, OLD MYOCARDIAL INFARCTION, CHRONIC ISCHEMIC HEART DISEASE, UNSPECIFIED, OTHER SPECIFIED FORMS OF CHRONIC ISCHEMIC HEART DISEASE, CORONARY ATHEROSCLEROSI S OF AMBLER CORONARY ARTERY, ATHEROSCLEROTI C HEART DISEASE OF AMBLER CORONARY ARTERY WITHOUT ANGINA PECTORIS, ISCHEMIC CARDIOMYOPATHY , ATHSCL HEART DISEASE OF AMBLER COR ART W] Other and Benign Episodic Active MITCHELL JOHNSON Not Avjulissa lable unspecified neoplasm of , (02225) benign transverse neoplasm (2 colon sources.) Mycoses (8 Candidal Episodic Active [facility] sources.) stomatitis District [place]1 of Translations: [place] [ [place] ([address]) OF MOUTH] Other Care involving Episodic Active XIMENA QUINONES No t Available aftercare (10 other DO (00466) sources.) specified rehabilitation procedure Other nervous Carpal tunnel Chronic Active [facility] system syndrome [place] [facility] of disorders (5 [place] sources.) [facility] (04730) Other nervous Carpal tunnel Chronic Active [facility] system syndrome, left [place] [facility] of disorders (1 upper limb [place] source.) [facility] (55752) Other nervous Carpal tunnel Chronic Active [facility] system syndrome, [place] of disorders (4 right upper [place] sources.) limb [facility] (30366) Acute Cerebral Chronic Active [facility] cerebrovascula infarction, [place] [facility] of r disease (4 unspecified [place] sources.) Translations: [facility] (20137) [ CEREBRAL ARTERY OCCLUSION, UNSPECIFIED, WITH CEREBRAL INFARCTION] Chronic Chronic [facility] , Not Steven momin obstructive obstructive (37020) pulmonary pulmonary disease and disease with bronchiectasis acute lower (24 sources.) respiratory infection Translations: [ CHRONIC OBSTRUCTIVE PULMONARY DISEASE W , CHRONIC OBSTRUCTIVE PULMON DISEASE W ACU, CHR AIRWAY OBSTRUCT NEC, CHRONIC OBSTRUCTIVE PULMONARY DISEASE, U, OBSTR CHRONIC BRONCHITIS, W (ACUTE) EXAC, CHRONIC OBSTRUCTIVE ASTHMA, W (ACUTE) EX, OBSTRUCTIVE CHRONIC BRONCHITIS WITH (ACUTE) 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, CHRONIC OBSTRUCTIVE PULMONARY DISEASE, UNSPECIFIED, OBSTRUCTIVE CHRONIC BRONCHITIS, WITHOUT 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, CHRONIC OBSTRUCTIVE PULMONARY DISEASE W ] Other nervous Chronic pain Chronic Active ALI SCOTT , No t Available system syndrome FACC (24505) disorders (1 source.) Congestive Chronic Chronic Active BASHAR JONATHAN , Not Svetlana ilable heart failure; systolic (40217) nonhypertensiv (congestive) e (24 heart failure sources.) Translations: [ HEART FAILURE, UNSPECIFIED, CONGESTIVE HEART FAILURE NOS, CHRONIC SYSTOLIC HRT FAILURE, CHRONIC SYSTOLIC HRT FAILURE, CONGESTIVE HEART FAILURE, UNSPECIFIED] Complication Coronary Chronic Active JOSHUA CASTILLO , Not A vailable of device; brendan CRANE (09067) implant or s of graft (23 autologous sources.) vein bypass graft Translations: [ ATHSCL AUTOLOGOUS VEIN CABG W UNSTABLE A, ATHSCL AUTOLOGOUS VEIN CABG W UNSP ANGIN, ATHEROSCLEROSI S OF CABG, UNSP, W UNSTABL] Coronary Coronary Episodic Active BASHAR JONAHTAN , Not Avai lable atherosclerosi brendan CRANE (77621) s and other s of viejas heart disease coronary (20 sources.) artery Translations: [ OLD MYOCARDIAL INFARCT, AORTOCORONARY BYPASS, PERCUTANEOUS TRANSLUM CORON ANGIOPLASTY , ATHSCL HEART DISEASE OF AMBLER CORONARY , OLD MYOCARDIAL INFARCTION, PRESENCE OF CORONARY ANGIOPLASTY IMPLANT, PRESENCE OF AORTOCORONARY BYPASS GRAFT] Other lower Cough Episodic Active CORNELL NDUKWU Not Svetlana ilable respiratory , (75423) disease (11 sources.) Other lower [facility] of disease (8 [place] sources.) [facility] (46861) Skin and Cutaneous Episodic Active [facility] Hospital subcutaneous abscess of District [facility]1 of tissue abdominal wall [place] infections (6 Translations: [facility] (78516) sources.) [ CELLULITIS AND ABSCESS OF TRUNK] Mood disorders Depressive Chronic Active JOELLE SHYANNE N ot Available (18 sources.) disorder, not , (89585) elsewhere classified Translations: [ MAJOR DEPRESSIVE DISORDER, SINGLE EPISOD] Diabetes Diabetes Chronic Active JOSHUA JONATHAN , Not Avai lable mellitus mellitus (08701) without without complication mention of (7 sources.) complication, type II or unspecified type, not stated as uncontrolled Other diseases Disorder of Episodic Active JOSHUA CASTILLO , Not Available of kidney and kidney and (06776) ureters (4 ureter, sources.) unspecified Other Disorders of Episodic Active [facility] connective bursae and District [facility]1 of tissue disease tendons in [place] (3 sources.) shoulder [facility] (26933) region, unspecified Other Disorders of Chronic Active VIVEK ALSTON Not Available nutritional; magnesium MD (38926) endocrine; and metabolism metabolic disorders (2 sources.) Diverticulosis Diverticulosis Chronic Active MITCHELL MCINTOSH S Not Available and of large MD (46603) diverticulitis intestine (2 sources.) without perforation or abscess without bleeding Gastroduodenal Duodenal Chronic Active MITCHELL JOHNSON Not Available ulcer (except ulcer, , (07146) hemorrhage) (1 unspecified as source.) acute or chronic, without hemorrhage or perforation, without mention of obstruction Residual Edema Episodic Active [facility] Hospital codes; [place] [facility] of unclassified [place] (14 sources.) County ([address]) Immunizations Encounter for Episodic Active JOELLE SCHOELING Not Available and screening immunization , (18988) for infectious Translations: disease (12 [ ND FOR sources.) PROPHYLACTIC VACCIN AND INOCULATI, PROPHYLACTIC VACC AGAINST STREPTOCOCCUS ] Residual Encounter for Episodic Active JOSHUA CASTILLO [facility] Via codes; other MD Silva unclassified specified Hospital - (1 source.) prophylactic [place] measures (91407) Other Encounter for Episodic Active MITCHELL JOHNSON Not Available screening for screening for , (65248) suspected malignant conditions neoplasm of (not mental colon disorders or Translations: infectious [ OTHER disease) (6 NONSPECIFIC sources.) ABNORMAL FINDING OF MARLYS] Residual Family history Episodic Active ANTOINETTE Not Svetlana ilable codes; of ischemic MD PHOEBE (79229) unclassified heart disease (15 sources.) and other diseases of the circulatory system Gastritis and Gastritis, Episodic Active MITCHELL JOHNSON No t Available duodenitis (6 unspecified, , (36907) sources.) without bleeding Translations: [ OTH SPECIFIED GASTRITIS,W/O MENTION OF H] Esophageal Gastro-esophag Chronic Active OUMAR POWERS , N ot Available disorders (21 eal reflux DO (76440) sources.) disease without esophagitis Headache; Headache Episodic Active ALI SCOTT , Not Availa ble including Translations: MD HAND (93982) migraine (4 [ HEADACHE] sources.) NEGATED History of Episodic Active no name no informat ion no falling information (15 sources.) Disorders of Hyperlipidemia Chronic Active JOSHUA CASTILLO , Not Available lipid , unspecified (06295) metabolism (25 Translations: sources.) [ MIXED HYPERLIPIDEMIA , HYPERLIPIDEMIA NEC/NOS, PURE HYPERCHOLESTER OLEMIA, UNSPECIFIED] Hypertension Hypertensive Chronic Active HERBERT Not Av ailable with heart disease MD ZEKE (26708) complications with heart and secondary failure hypertension (23 sources.) Other upper Hypertrophy of Episodic Active [facility] osp[facility] respiratory nasal District [facility]1 of disease (2 turbinates [place] sources.) [facility] (82784) Other upper Hypertrophy of Episodic Active ADAIR-CRISS [facility] H ospital respiratory nasal [place] [facility] of disease (2 turbinates [place] sources.) [facility] (70442) Other lower Hypoxemia Episodic Active CATE Not Availa ble respiratory JAVIER (84353) disease (19 sources.) Other lower Hypoxemia Episodic Active [facility] Hospit al respiratory District [facility]1 of disease (8 [place] sources.) [facility] (25487) Other Incomplete Episodic Active [facility] Hospita l connective rotator cuff District [facility]1 of tissue disease tear or [place] (4 sources.) rupture of [facility] (64375) right shoulder, not specified as traumatic Spondylosis; Intervertebral Episodic Active DEBBIE FRANCISCA , DO Not Available intervertebral disc disorders (82966) disc with disorders; radiculopathy, other back lumbosacral problems (21 region sources.) Translations: [ RADICULOPATHY, LUMBAR REGION, TORTICOLLIS, TORTICOLLIS, UNSPECIFIED, SPINAL STENOSIS, CERVICAL REGION] Coronary Ischemic no information Active JOSHUA CASTILLO , Not Available atherosclerosi cardiomyopathy (34584) s and other Translations: heart disease [ PRESENCE OF (34 sources.) AORTOCORONARY BYPASS GRAFT, PRESENCE OF CORONARY ANGIOPLASTY IMPLANT, ATHSCL HEART DISEASE OF AMBLER CORONARY , ISCHEMIC CARDIOMYOPATHY , CORONARY ATHEROSCLEROSI S OF AMBLER CORON, AORTOCORONARY BYPASS, CHRONIC TOTAL OCCLUSION OF CORONARY TOM, OLD MYOCARDIAL INFARCT, PERCUTANEOUS TRANSLUM CORON ANGIOPLASTY , OLD MYOCARDIAL INFARCTION, ATHSCL HEART DISEASE OF AMBLER COR ART W, CORON ATHEROSCLER NOS TYPE VESSEL, NATIV, INTERMED CORONARY SYND, ATHSCL HEART DISEASE OF AMBLER COR ART W, CORONARY ATHEROSCLEROSI S DUE TO [place], CORONARY ATHEROSCLEROSI S OF AMBLER CORON, CHRONIC TOTAL OCCLUSION OF CORONARY TOM, CORONARY ANGIOPLASTY STATUS, AORTOCORONARY BYPASS, CHRONIC TOTAL OCCLUSION OF CORONARY TOM, INTERMED CORONARY SYND] Other liver Liver disease, Chronic Active [facility] V ia diseases (2 unspecified JAVIER , COOK PICKLED MEAT Shira sources.) [facility] (85852) Residual Localized Episodic Active ADAIR[facility]CRISS RODAS Hospital codes; edema District [facility]1 of unclassified [place] (14 sources.) [facility] (52127) Other longterm Episodic Active OUMAR POWERS , Not Svetlana ilable aftercare (21 (current) use DO (42927) sources.) of antithrombotic s/antiplatelet s Other longterm Episodic Active ANTOINETTE Not Availabl e aftercare (20 (current) use MD PHOEBE (89715) sources.) of aspirin Other longterm Episodic Active ANTOINETTE Not Availabl e aftercare (19 (current) use MD PHOEBE (50039) sources.) of inhaled steroids Other longterm Episodic Active MARGARITA AILYN Not Availabl e aftercare (15 (current) use (09056) sources.) of systemic steroids Other Long-term Episodic Active ALI SCOTT , Not Avail able aftercare (4 (current) use FACShanae (80915) sources.) of antiplatelet/a ntithrombotic Other Long-term Episodic Active JOSHUA NEGROJI , Not Svetlana ilable aftercare (3 (current) use (42101) sources.) of aspirin Other Long-term Episodic Active ALI SCOTT , Not Avail able aftercare (8 (current) use FACShanae (50515) sources.) of other medications NEGATED Meningococcal Episodic Active no name no infor mation no meningitis information (3 sources.) Other Muscle wasting Episodic Active [facility] pital connective and atrophy, District [facility]1 of tissue disease not elsewhere [place] (2 sources.) classified, [facility] (74852) right upper arm Other Muscle Episodic Active [facility] connective weakness District [facility]1 of tissue disease (generalized) [place] (6 sources.) [facility] (78091) Other Muscle Episodic Active [facility] connective weakness District [facility]1 of tissue disease (generalized) [place] (6 sources.) [facility] (99985) Other Muscular Episodic Active [facility] connective wasting and District [facility]1 of tissue disease disuse [place] (2 sources.) atrophy, not [facility] (33432) elsewhere classified Nausea and Nausea alone Episodic Active DALLIN LUCAS Not Available vomiting (3 , (35221) sources.) Substance-rela Nicotine Chronic Active JOSHUA CASTILLO , Not Available armand disorders dependence, (75289) (21 sources.) cigarettes, uncomplicated Translations: [ TOBACCO USE DISORDER, NICOTINE DEPENDENCE, UNSPECIFIED, IN REM] Occlusion or Occlusion and Chronic Active JOSHUA CASTILLO , Not Available stenosis of stenosis of (05023) precerebral carotid artery arteries (21 without sources.) mention of cerebral infarction Translations: [ OCCLUSION AND STENOSIS OF UNSPECIFIED CA, OCCLUSION AND STENOSIS OF BILATERAL BREWER, OCCLUSION AND STENOSIS OF CAROTID ARTERY, WITHOUT MENTION OF CEREBRAL INFARCTION, OCCLUSION AND STENOSIS OF RIGHT CAROTID ] Other Osteophyte, Chronic Active [facility] Via non-traumatic vertebrae [facility] - disorders (2 [place] sources.) (72806) Diabetes Other abnormal Episodic Active CHRISTOPHER Not Svetlana ilable mellitus glucose MD DELLA (51138) without complication (3 sources.) Other nervous Other Episodic Active [facility] system abnormalities District [facility]1 of disorders (7 of gait and [place] sources.) mobility [facility] (57610) Nonspecific Other chest Episodic Active JOSHUA CASTILLO , Not Available chest pain (21 pain MD (20071) sources.) Translations: [ CHEST PAIN NOS, CHEST PAIN, UNSPECIFIED, CHEST PAIN NEC] Complication Other Episodic Active DALLIN LUCAS Not Av ailable of device; complications , (03921) implant or due to other graft (3 cardiac sources.) device, implant, and graft Other lower Other Episodic Active [facility] Via respiratory disorders of JAVIER Shira disease (3 lung Hospital - sources.) [place] (07835) Malaise and Other fatigue Episodic Active no name no inf ormation fatigue (4 sources.) Other Other long Episodic Active OUMAR POWERS , Not Av ailable aftercare (20 term (current) DO (69736) sources.) drug therapy Bacterial Other Episodic Active [facility] infection; meningococcal District [facility]1 of unspecified infections [place] site (7 Translations: [facility] (50230) sources.) [ MENINGOCOCCAL INFECTION, UNSPECIFIED, MENINGOCOCCAL INFECTION, UNSPECIFIED] Other lower Other Episodic Active [facility] Via respiratory nonspecific JAVIER Shira disease (7 abnormal Hospital - sources.) finding of [place] lung field (19352) Other lower Other Episodic Active FRANCISCO MARIANO Not Svetlana ilable respiratory respiratory (03975) disease (5 abnormalities sources.) Other Other shoulder Episodic Active no name Not Svetlana ilable connective lesions, right (60976) tissue disease shoulder (2 sources.) Miscellaneous Other Chronic Active [facility] mental health somatoform District [facility]1 of disorders (4 disorders [place] sources.) [facility] (74007) Other Other Chronic Active [facility] circulatory specified District [facility]1 of disease (6 peripheral [place] sources.) vascular [facility] (62876) diseases Other Other Chronic Active [facility] circulatory specified District [facility]1 of disease (6 peripheral [place] sources.) vascular [facility] (16696) diseases Spondylosis; Other no information Active [facility] Via intervertebral spondylosis [facility] disc with Hospital - disorders; radiculopathy, [place] other back cervical (58847) problems (2 region sources.) Translations: [ SPINAL STENOSIS, CERVICAL REGION] Spondylosis; Other Chronic Active [facility] Via intervertebral spondylosis [facility] disc with Hospital - disorders; radiculopathy, [place] other back cervical (40868) problems (1 region source.) Other Pain in joint, Episodic Active [facility] Hos pital non-traumatic shoulder District [facility]1 of joint region [place] disorders (1 County (77689) source.) Other Pain in right Episodic Active [facility] Hosp ital non-traumatic shoulder District [place]1 of joint [place] disorders (1 [place] (53140) source.) Other Partial [facility] connective of rotator District [facility]1 of tissue disease cuff [place] (4 sources.) [facility] (97678) Other Peripheral Chronic Active OUMAR POWERS , Not Av ailable circulatory vascular DO (07769) disease (20 angioplasty sources.) status with implants and grafts Peripheral and Peripheral Chronic Active OUMAR POWERS , N ot Available visceral vascular DO (90612) atherosclerosi disease, s (21 unspecified sources.) Translations: [ ATHSCL AMBLER ARTERIES OF EXTRM W INTRMT, UNSP ATHSCL AMBLER ARTERIES OF EXTREMITI, PERIPHERAL VASCULAR DISEASE, UNSPECIFIED] Other and Personal Episodic Active MITCHELL JOHNSON Not Avai lable unspecified history of MD (05307) benign colonic polyps neoplasm (4 sources.) Other Personal Episodic Active ANTOINETTE Not Available gastrointestin history of MD PHOEBE (63346) al disorders other diseases (17 sources.) of the digestive system Phlebitis; Personal Episodic Active HERBERT Not Availabl e thrombophlebit history of MD ZEKE (09453) is and other venous thromboembolis thrombosis and m (24 embolism sources.) Gastroduodenal Personal Episodic Active MITCHELL JOHNSON Not Available ulcer (except history of MD (01913) hemorrhage) peptic ulcer (17 sources.) disease Other lower Personal Episodic Active ANTOINETTE Not Availab le respiratory history of MD PHOEBE (18946) disease (15 pneumonia sources.) (recurrent) Screening and Personal Episodic Active JOSHUA JONATHAN , Not Available history of history of (73295) mental health tobacco use and substance Translations: abuse codes [ PERSONAL (22 sources.) HISTORY OF NICOTINE DEPENDENCE] Other Personal Episodic Active MARGARITA AILYN Not Available circulatory history of (38219) disease (13 transient sources.) ischemic attack (TIA), and cerebral infarction without residual deficits Other lower Pleurodynia Episodic Active no name no infor mation respiratory disease (10 sources.) Pneumonia Pneumonia, Episodic Active [facility] (except that unspecified [facility] caused by organism [place] tuberculosis Translations: County ([address]) or sexually [ LOBAR transmitted PNEUMONIA, disease) (21 UNSPECIFIED sources.) ORGANISM, PNEUMONIA, ORGANISM UNSPECIFIED] NEGATED Presence of Chronic Active no name no informa tion no other vascular information implants and (15 sources.) grafts Osteoarthritis Primary Chronic Active [facility] (37 sources.) osteoarthritis [facility] , right [facility] ([id number]) Translations: [ PRIMARY OSTEOARTHRITIS , UNSPECIFIED SITE, UNILATERAL PRIMARY OSTEOARTHRITIS , LEFT HIP, OSTEOARTHROSIS , LOCALIZED, PRIMARY, INVOLVING LOWER LEG, UNILATERAL PRIMARY OSTEOARTHRITIS , LEFT KNEE, UNILATERAL PRIMARY OSTEOARTHRITIS , RIGHT KNEE, UNILATERAL PRIMARY OSTEOARTHRITIS , RIGHT HIP, OSTEOARTHROSIS , LOCALIZED, PRIMARY, INVOLVING PELVIC REGION AND THIGH] Anal and Rectal polyp Episodic Active MITCHELL JOHNSON Not Available rectal MD ([id number]) conditions (2 sources.) Other Repeated falls Episodic Active no name no info rmation connective tissue disease (5 sources.) 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 , 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 (4 disorders of (72369) sources.) both mitral and tricuspid valves Schizophrenia Schizophrenia, Chronic Active no name no information and other unspecified psychotic disorders (25 sources.) Other lower Shortness of Episodic Active CATE Not Svetlana ilable respiratory breath JAVIER (70495) disease (25 sources.) Other lower Shortness of Episodic Active CORNELL NDUKWU Not Available respiratory breath MD (46353) disease (19 sources.) Other lower Solitary Episodic Active CATE Not Availab le respiratory pulmonary JAVIER (32703) disease (9 nodule sources.) Coagulation Thrombocytopen Chronic Active HERBERT Not A vailable and ZEKE gonzalez MD (78500) hemorrhagic unspecified disorders (8 sources.) Unclassified Tobacco use Episodic Active CHRISTOPHER Not Svetlana ilable (29 sources.) Translations: MD DELLA (69408) [ HX OF PAST NONCOMPLIANCE, SLEEP DISORDER, UNSPECIFIED, ACQUIRED ABSENCE OF OTHER ORGANS, FAMILY HX OF ISCHEM HEART DIS AND OTH DI] Essential Unspecified Chronic Active JOSHUA CASTILLO , Not A vailable hypertension essential () (20 sources.) hypertension Translations: [ ESSENTIAL (PRIMARY) HYPERTENSION] Hemorrhoids (2 Unspecified Episodic Active MITCHELL JOHNSON Not Available sources.) hemorrhoids MD (10644) Other Unspecified Episodic Active [facility] Hospit al connective rotator cuff [facility] tissue disease [facility] or [place] (3 sources.) rupture of County (88846) right shoulder, not specified as traumatic Past or Other Problems Problem Normalized Date Last Normalized Normalized Provider Fa [facility] Classification Problem(s) Recorded Problem Problem Sta tus Duration Abdominal pain Abdominal Episodic Completed MITCHELL JOHNSON No t Available (2 sources.) pain, right , (47949) upper quadrant Unclassified Angioneurotic no information no information [facility] (1 source.) edema [facility] (59427) Unclassified Chest pain no information no information [facility] (2 sources.) [facility] (96510) Other Closed Episodic Completed JENISE BROKOB Not Availa ble fractures (1 fracture of (34075) source.) one rib Coma; stupor; Coma scale, no information no information PETER B ATES Not Available and brain best motor (25659) damage (9 response, sources.) obeys commands, at arrival to emergency department Translations: [ COMA SCALE, BEST VERBAL RESPONSE, ORIENT, COMA SCALE, EYES OPEN, SPONTANEOUS, EMR] Other Effusion, Episodic Completed ANTOINETTE Not Availabl e non-traumatic right foot [place] MD (31857) joint disorders (2 sources.) Residual Encounter for no information no information JOSHUA PETERS , [facility] Via codes; casandra Silva unclassified specified Hospital - (3 sources.) prophylactic [place] measures (69725) External cause Fall on same no information no information JENISE BROKOB Not Available codes: Fall (7 level from (46273) sources.) slipping, tripping and stumbling with subsequent striking against other object, initial encounter Translations: [ FALL RESULTING IN STRIKING AGAINST OTHER OBJECT, FALL SAME LEV FROM SLIP/TRIP W/O STRIKE ] Other Fracture of Episodic Completed JENISE BROKOB Not Svetlana ilable fractures (1 one rib, left (70382) source.) side, initial encounter for closed fracture Residual Insomnia, Episodic Completed JOELLE SCHOELING Not Svetlana ilable codes; unspecified , (76524) unclassified (1 source.) Mood disorders Major no information no information OUMAR BEAN , Not Available (23 sources.) depressive DO (25241) disorder, single episode, unspecified Adverse Other agents no information no information MITCHELL IGNACIO Not Available effects of affecting , (98327) medical drugs blood (1 source.) constituents causing adverse effects in therapeutic use Other upper Other no information no information no name n o information respiratory specified disease (2 diseases of sources.) upper respiratory tract Residual Other no information no information MARGARITA AILYN Not Available codes; specified (19758) unclassified postprocedural (9 sources.) states Residual Other Episodic Completed [facility] Via codes; specified Shira NELSON unclassified postprocedural Hospital - (2 sources.) states [place] (50317) Other Pain in right Episodic Completed ANTOINETTE Not Avai lable non-traumatic ankle and [place] , (34489) joint joints of disorders (2 right foot sources.) NEGATED Pulmonary no information no information OUMAR POWERS , Not Available no hypertension, DO (48628) information unspecified (23 sources.) Disorders of Pure no information no information no name no information lipid hypercholester metabolism (20 olemia, sources.) unspecified Other lower Wheezing Episodic Completed CATE Not Availab le respiratory JAVIER (73854) disease (9 sources.) Procedures The data below is from unstructured sources No Known procedures No Known procedures No Known procedures Immunizations Normalized Immunization Date Notes Care Provider Facili ty Immunization influenza virus 07-31-2017 no information no name Not Svetlana ilable vaccine, split virus (23065) (incl. purified surface antigen) influenza virus 03-23-2017 no information no name no info rmation vaccine, split virus (incl. purified surface antigen) Results Test Name Value Interpretation Reference Range Date Time Fa cility (Normalized) (Normalized) (Medline Reference) laboratory on 2019-01-13 Anion gap 13 mmol/L (no code) 3 - 11 mmol/L 01-13-2019 Hospital [Moles/Vol] 09:46 [facility] (17653) Basophils (Bld) 0.0 10*3/uL (no code) 0 - 0.3 10*3/uL 01-13-2019 Hospital [#/Vol] 09:46040 [facility] (59204) Basophils/100 0.40 % (no code) 0.5 - 1 % 01-13-2019 Hospital WBC (Bld) 09: [facility] (73794) Calcium 9.4 mg/dL (no code) 8.5 - 10.2 mg/dL 01-13-2019 [facility]pi [facility] [Mass/Vol] 09: [facility] (94700) Chloride 98 mmol/L (no code) 95 - 106 mmol/L 01-13-2019 Hospit al [Moles/Vol] 09: [facility] (68786) Creatinine 0.86 mg/dL (no code) 01-13-2019 Hospital [Mass/Vol] 09: [facility] (08612) Eosinophils 0.1 10*3/uL (no code) 0.05 - 0.5 01-13-2019 Hospita l (Bld) [#/Vol] 10*3/uL 09:46 [facility] (59985) Eosinophils/100 2.3 % (no code) 1 - 4 % 01-13-2019 Hospit al WBC (Bld) 09: [facility] (06588) Erythrocyte 12.4 % (no code) 11.6 - 14.6 % 01-13-2019 Hospit al distribution 09:46 [facility] width (RBC) [facility] [Ratio] (96077) GFR/1.73 sq 90 (no code) 90 - 120 01-13-2019 Hospital M.predicted MDRD mL/min/{1.73_m2} mL/min/{1.73_m2} 09:46 [facility] (S/P/Bld) [Vol [facility] rate/Area] (00499) Glucose 100 mg/dL (no code) 60 - 125 mg/dL 01-13-2019 Hospita l [Mass/Vol] 09: [facility] (07329) HCO3 (P) 37 (H) 01-13-2019 Hospital [Moles/Vol] 09: [facility] (83466) Hematocrit (Bld) 38.5 % (L) 36.1 - 50.3 % 01-13-2019 H ospital [Volume 09: [facility] fraction] [facility] (12431) Hemoglobin (Bld) 11.5 g/dL (L) 12.1 - 17.2 g/dL 01-13-2019 Hospital [Mass/Vol] 09: [facility] (77318) Lymphocytes 1.60 10*3/uL (no code) 0.9 - 2.9 01-13-2019 Hospita l (Bld) [#/Vol] 10*3/uL 09: [facility] (30367) Lymphocytes/100 33.1 % (no code) 20 - 40 % 01-13-2019 Hospit al WBC (Bld) 09: [facility] () M. pneumoniae Ab Positive (A) 01-13-2019 Hospital Ql (S) 09: [facility] (51901) MCH (RBC) 29.9 pg (no code) 27 - 31 pg 01-13-2019 Hospital [Entitic mass] 09:46 [facility] (18722) MCHC (RBC) 29.9 g/dL (L) 32 - 36 g/dL 01-13-2019 Hospital [Mass/Vol] 09:46 [facility] (15093) MCV (RBC) 100.0 fL (H) 80 - 100 fL 01-13-2019 Hospital [Entitic vol] 09: [facility] (56007) Monocytes (Bld) 0.5 10*3/uL (no code) 0.3 - 0.9 01-13-2019 Hosp ital [#/Vol] 10*3/uL 09: [facility] (17438) Monocytes/100 9.9 % (no code) 2 - 8 % 01-13-2019 Hospital WBC (Bld) 09: [facility] (21220) Natriuretic 22.70 pg/mL (no code) 0 - 100 pg/mL 01-13-2019 Hosp ital peptide B (Bld) 09: [facility] [Mass/Vol] [facility] (79324) Neutrophils 2.63 10*3/uL (no code) 1.7 - 7 10*3/uL 01-13-2019 H ospital (Bld) [#/Vol] 09: [facility] (03680) Neutrophils/100 54.3 % (no code) 40 - 60 % 01-13-2019 Hospit al WBC (Bld) 09: [facility] (45903) Osmolality Calc 296 (H) 01-13-2019 Hospital [Osmolality] 09: [facility] (50219) Platelet mean 10.5 fL (H) 7.2 - 11.7 fL 01-13-2019 Hosp ital volume (Bld) 09: [facility] [Entitic vol] [facility] (99241) Platelets (Bld) 154 10*3/uL (no code) 150 - 450 01-13-2019 Hosp ital [#/Vol] 10*3/uL 09: [facility] (43702) Potassium 4.4 mmol/L (no code) 3.7 - 5.2 mmol/L 01-13-2019 Hosp ital [Moles/Vol] 09: [facility] (27460) RBC (Bld) 3.85 10*6/uL (L) 4.2 - 6.1 01-13-2019 Hospital [#/Vol] 10*6/uL 09:46-0400 [facility] (74253) Sodium 144 mmol/L (no code) 135 - 145 mmol/L 01-13-2019 Hosp ital [Moles/Vol] 09: [facility] (53458) TSH Qn 2.17 (no code) 01-13-2019 Hospital 09: [facility] (34178) Urea nitrogen 10 mg/dL (no code) 7 - 20 mg/dL 01-13-2019 Hospi jer[facility] [Mass/Vol] 09: [facility] (19544) WBC (Bld) 4.84 10*3/uL (L) 3.5 - 10.5 01-13-2019 Hospital [#/Vol] 10*3/uL 09: [facility] (64251) other on 2018-12-25 Albumin BCG dye 4.0 (no code) 12-25-2018 Hospital [Mass/Vol] 09: [facility] () Cholesterol in 13 mg/dL (no code) 12-25-2018 Hospital VLDL [Mass/Vol] 09: [facility] (94162) Cholesterol.tota 2.5 {ratio} (L) 12-25-2018 Hospital l/Cholesterol in 09: [facility] HDL [Mass ratio] [facility] (94837) GFR/1.73 sq 90 (no code) 90 - 120 12-25-2018 Hospital M.predicted MDRD mL/min/{1.73_m2} mL/min/{1.73_m2} 09: [facility] (S/P/Bld) [Vol [facility] rate/Area] (47280) Globulin (S) 2.0 g/dL (L) 2 - 3.5 g/dL 12-25-2018 Hospit al [Mass/Vol] 09: [facility] (40260) HCO3 (P) 38 (H) 12-25-2018 Hospital [Moles/Vol] 09: [facility] (21136) Osmolality Calc 295 (no code) 12-25-2018 Hospital [Osmolality] 09: [facility] (31671) metabolic panel on 2018-12-25 ALP [Catalytic 99 U/L (no code) 44 - 147 U/L 12-25-2018 Hosp ital activity/Vol] 09: [facility] (41345) ALT [Catalytic 15 U/L (no code) 4 - 40 U/L 12-25-2018 Hospit al activity/Vol] 09: [facility] (07743) Anion gap 14 mmol/L (no code) 3 - 11 mmol/L 12-25-2018 Hospital [Moles/Vol] 09: [facility] (03441) AST [Catalytic 15 U/L (no code) 10 - 34 U/L 12-25-2018 Hospi [facility] activity/Vol] 09: [facility] (84339) Bilirubin 0.3 mg/dL (no code) 0.1 - 1.2 mg/dL 12-25-2018 Hospit al [Mass/Vol] 09: [facility] (17316) Calcium 9.5 mg/dL (no code) 8.5 - 10.2 mg/dL 12-25-2018 Hospi [facility] [Mass/Vol] 09: [facility] (20952) Chloride 95 mmol/L (no code) 95 - 106 mmol/L 12-25-2018 Hospit al [Moles/Vol] 09: [facility] (12753) Creatinine 0.86 mg/dL (no code) 12-25-2018 Hospital [Mass/Vol] 09: [facility] (54667) Glucose 100 mg/dL (no code) 60 - 125 mg/dL 12-25-2018 Hospita l [Mass/Vol] 09: [facility] (57703) Potassium 4.1 mmol/L (no code) 3.7 - 5.2 mmol/L 12-25-2018 Hosp ital [Moles/Vol] 09: [facility] (59111) Protein 6.0 g/dL (no code) 6.4 - 8.3 g/dL 12-25-2018 Hospita l [Mass/Vol] 09:15 [facility] (34004) Sodium 143 mmol/L (no code) 135 - 145 mmol/L 12-25-2018 Hosp ital [Moles/Vol] 09:15 [facility] (54825) Urea nitrogen 11 mg/dL (no code) 7 - 20 mg/dL 12-25-2018 [facility]pi [facility] [Mass/Vol] 09:15 [facility] (89765) cardiac on 2018-12-25 Cholesterol 159 mg/dL (no code) 180 - 200 mg/dL 12-25-2018 Hosp ital [Mass/Vol] 09: [facility] (07850) Cholesterol in 64 mg/dL (no code) 12-25-2018 Hospital HDL [Mass/Vol] 09: [facility] (57196) Cholesterol in 82 mg/dL (no code) 0 - 100 mg/dL 12-25-2018 Hos pital LDL [Mass/Vol] 09: [facility] (17785) Natriuretic 33.60 pg/mL (no code) 0 - 100 pg/mL 12-25-2018 Hosp ital peptide B (Bld) 09: [facility] [Mass/Vol] [facility] (77394) Triglyceride 67 mg/dL (no code) 0 - 150 mg/dL 12-25-2018 Hospi jer[facility] [Mass/Vol] 09:15 [facility] (67951) other on 2018-12-16 Albumin BCG dye 4.0 (no code) 12-16-2018 Hospital [Mass/Vol] 17:00 [facility] (69948) Erythrocyte 12.4 % (no code) 11.6 - 14.6 % 12-16-2018 Hospit al distribution 17:00 [facility] width (RBC) [facility] [Ratio] (91339) GFR/1.73 sq 93 (no code) 90 - 120 12-16-2018 Hospital M.predicted MDRD mL/min/{1.73_m2} mL/min/{1.73_m2} : [facility] (S/P/Bld) [Vol [facility] rate/Area] (82774) Globulin (S) 2.6 g/dL (no code) 2 - 3.5 g/dL 12-16-2018 Hospit al [Mass/Vol] : [facility] (43413) HCO3 (P) 38 (H) 12-16-2018 Hospital [Moles/Vol] : [facility] (42320) MCHC (RBC) 30.6 g/dL (L) 32 - 36 g/dL 12-16-2018 Hospital [Mass/Vol] 17: [facility] (34038) Osmolality Calc 287 (no code) 12-16-2018 Hospital [Osmolality] : [facility] (59033) Platelet mean 10.1 fL (H) 7.2 - 11.7 fL 12-16-2018 Hosp ital volume (Bld) : [facility] [Entitic vol] [facility] (47544) metabolic panel on 2018-12-16 ALP [Catalytic 96 U/L (no code) 44 - 147 U/L 12-16-2018 Hosp ital activity/Vol] : [facility] (73523) ALT [Catalytic 27 U/L (no code) 4 - 40 U/L 12-16-2018 Hospit al activity/Vol] : [facility] (20278) Anion gap 14 mmol/L (no code) 3 - 11 mmol/L 12-16-2018 Hospital [Moles/Vol] :040 [facility] (63143) AST [Catalytic 21 U/L (no code) 10 - 34 U/L 12-16-2018 Hospi [facility] activity/Vol] : [facility] (87486) Bilirubin 0.4 mg/dL (no code) 0.1 - 1.2 mg/dL 12-16-2018 Hospit al [Mass/Vol] : [facility] (80589) Calcium 9.5 mg/dL (no code) 8.5 - 10.2 mg/dL 12-16-2018 [facility]pi [facility] [Mass/Vol] 17:000400 [facility] (65742) Chloride 92 mmol/L (L) 95 - 106 mmol/L 12-16-2018 Hospit al [Moles/Vol] 17:040 [facility] (01622) Creatinine 0.83 mg/dL (no code) 12-16-2018 Hospital [Mass/Vol] 17:040 [facility] (43881) Glucose 94 mg/dL (no code) 60 - 125 mg/dL 12-16-2018 Hospita l [Mass/Vol] 17: [facility] (08615) Potassium 4.2 mmol/L (no code) 3.7 - 5.2 mmol/L 12-16-2018 Hosp ital [Moles/Vol] : [facility] (30091) Protein 6.6 g/dL (no code) 6.4 - 8.3 g/dL 12-16-2018 Hospita l [Mass/Vol] 17:0400 [facility] (18976) Sodium 140 mmol/L (no code) 135 - 145 mmol/L 12-16-2018 Hosp ital [Moles/Vol] 17:0400 [facility] (31918) Urea nitrogen 7 mg/dL (no code) 7 - 20 mg/dL 12-16-2018 [facility]pi [facility] [Mass/Vol] 17:040 [facility] (16590) hematology on 2018-12-16 Basophils (Bld) 0.0 10*3/uL (no code) 0 - 0.3 10*3/uL 12-16-2018 Hospital [#/Vol] 17:040 [facility] (01510) Basophils/100 0.40 % (no code) 0.5 - 1 % 12-16-2018 Hospital WBC (Bld) 17: [facility] (39210) Eosinophils 0.1 10*3/uL (no code) 0.05 - 0.5 12-16-2018 Hospita l (Bld) [#/Vol] 10*3/uL 17:00040 [facility] (02721) Eosinophils/100 1.7 % (no code) 1 - 4 % 12-16-2018 Hospit al WBC (Bld) 17: [facility] (61927) Hematocrit (Bld) 38.6 % (L) 36.1 - 50.3 % 12-16-2018 H ospital [Volume 17: [facility] fraction] [facility] (02741) Hemoglobin (Bld) 11.8 g/dL (L) 12.1 - 17.2 g/dL 12-16-2018 Hospital [Mass/Vol] 17: [facility] (24064) Lymphocytes 1.42 10*3/uL (no code) 0.9 - 2.9 12-16-2018 Hospita l (Bld) [#/Vol] 10*3/uL 17: [facility] (77254) Lymphocytes/100 26.2 % (no code) 20 - 40 % 12-16-2018 Hospit al WBC (Bld) 17:00040 [facility] (79540) MCH (RBC) 29.5 pg (no code) 27 - 31 pg 12-16-2018 Hospital [Entitic mass] 17: [facility] (42269) MCV (RBC) 96.5 fL (no code) 80 - 100 fL 12-16-2018 Hospital [Entitic vol] 17:00040 [facility] (26170) Monocytes (Bld) 0.5 10*3/uL (no code) 0.3 - 0.9 12-16-2018 Hosp ital [#/Vol] 10*3/uL 17:040 [facility] (68719) Monocytes/100 8.5 % (no code) 2 - 8 % 12-16-2018 Hospital WBC (Bld) 17:00 [facility] (54568) Neutrophils 3.43 10*3/uL (no code) 1.7 - 7 10*3/uL 12-16-2018 H ospital (Bld) [#/Vol] 17:000400 [facility] (73455) Neutrophils/100 63.2 % (no code) 40 - 60 % 12-16-2018 Hospit al WBC (Bld) 17:000400 [facility] (34045) Platelets (Bld) 165 10*3/uL (no code) 150 - 450 12-16-2018 Hosp ital [#/Vol] 10*3/uL 17:000400 [facility] (00918) RBC (Bld) 4.00 10*6/uL (L) 4.2 - 6.1 12-16-2018 Hospital [#/Vol] 10*6/uL 17:00040 [facility] (89490) WBC (Bld) 5.42 10*3/uL (no code) 3.5 - 10.5 12-16-2018 Hospital [#/Vol] 10*3/uL 17:00040 [facility] (74702) cardiac on 2018-12-16 Natriuretic 66.20 pg/mL (no code) 0 - 100 pg/mL 12-16-2018 Hosp ital peptide B (Bld) 17:00 [facility] [Mass/Vol] [facility] (32911) Vital Signs No Information Interventions No Information Plan of Treatment No Information Goals No Information Social History The data below is from unstructured sources History Response Recorde d Date/Time Hx Family Cancer Y MATERNAL UNCLE PROSTATE 11/06/12 10:00pm Hx Family Breast Cancer N 11/06/12 10:00pm Hx Family Lung Cancer N 11/06/12 10:00pm Hx Family Colorectal Cancer N 11/06/12 10:00pm History Response Recorde d Date/Time Alcohol Use Denies Use 0 11/06/12 10:00pm Recreational Drug Use N 11/06/12 10:00pm Recent Foreign Travel N 11/06/12 10:00pm Recent Infectious Disease Exposure N 11/06/12 10:00pm Hospitalization with Isolation Denies 11/09/12 5:01pm History Response Recorde d Date/Time Hx Family Cancer Y MATERNAL UNCLE PROSTATE 01/26/13 4:25am Hx Family Breast Cancer N 01/26/13 4:25am Hx Family Lung Cancer N 01/26/13 4:25am Hx Family Colorectal Cancer N 01/26/13 4:25am Hx Family Cardiac Disorders Y JERSEY PORTER GRANDFATHER 01/26/13 4:25am History Response Recorde d Date/Time Alcohol Use Past History 01/26/13 4:25am Recreational Drug Use N 01/26/13 4:25am Recent Foreign Travel N 01/26/13 4:25am Recent Infectious Disease Exposure N 01/26/13 4:25am Hospitalization with Isolation Denies 02/03/13 11:17am Sexually Transmitted Disease N 01/26/13 4:25am History Response Recorde d Date/Time Hx Family Cancer Y MATERNAL UNCLE PROSTATE 03/03/13 9:36pm Hx Family Breast Cancer N 03/03/13 9:36pm Hx Family Lung Cancer N 03/03/13 9:36pm Hx Family Colorectal Cancer N 03/03/13 9:36pm Hx Family Cardiac Disorders Y JERSEY PORETR GRANDFATHER 03/03/13 9:36pm History Response Recorde d Date/Time Alcohol Use Past History 03/03/13 9:36pm Recreational Drug Use N 03/03/13 9:36pm Recent Foreign Travel N 03/03/13 9:36pm Recent Infectious Disease Exposure N 03/03/13 9:36pm Hospitalization with Isolation Denies 03/04/13 8:33pm Sexually Transmitted Disease N 03/03/13 9:36pm History Response Recorde d Date/Time Alcohol Use Past History 01/26/13 4:25am Recreational Drug Use N 01/26/13 4:25am Recent Foreign Travel N 01/26/13 4:25am Recent Infectious Disease Exposure N 01/26/13 4:25am Hospitalization with Isolation Denies 01/27/13 3:32pm Sexually Transmitted Disease N 01/26/13 4:25am Functional Status No Information Mental Status No Information Encounters Encounter Normalized Encounter Encounter Diagnosis Care Provi estela Organization Date Type 04-16-2019 Emergency department no information no name no organization name patient visit 12-06-2018 Emergency department no information no name no organization name - patient visit 12-07-2018 10-30-2018 Emergency department no information no name no organization name - patient visit 10-30-2018 10-30-2018 Emergency department no information no name no organization name - patient visit 10-30-2018 08-20-2018 Emergency department no information no name no organization name - patient visit 08-20-2018 06-30-2018 Emergency department no information no name no organization name - patient visit 06-30-2018 04-25-2018 Emergency department no information no name no organization name - patient visit 04-25-2018 02-14-2018 Emergency department no information no name no organization name patient visit 11-15-2017 Emergency department no information no name no organization name - patient visit 11-15-2017 10-13-2017 Emergency department no information no name no organization name patient visit [facility] Emergency department no information no name no organization name 09-14-2017 patient visit 07-25-2017 Emergency department no information no name no organization name patient visit 05-05-2017 Emergency department no information no name no organization name patient visit 10-12-2016 Emergency department no information no name no organization name patient visit 07-24-2016 Emergency department no information no name no organization name patient visit 10-26-2015 Emergency department no information no name no organization name - patient visit 10-26-2015 04-08-2015 Emergency department no information no name no organization name - patient visit 04-08-2015 01-16-2015 Emergency department no information no name no organization name - patient visit 01-16-2015 04-16-2019 Evaluation and no information no name no organ ization name - management of 04-18-2019 inpatient 02-15-2018 Evaluation and no information no name no organ ization name - management of 02-15-2018 inpatient [facility] Evaluation and no information no name no organ ization name 02-14-2018 management of - inpatient 02-15-2018 10-13-2017 Evaluation and no information no name no organ ization name - management of 10-15-2017 inpatient 09-14-2017 Evaluation and no information no name no organ ization name - management of 09-15-2017 inpatient 09-14-2017 Evaluation and no information no name no organ ization name - management of 09-15-2017 inpatient [facility] Evaluation and no information no name no organ ization name 07-25-2017 management of - inpatient 07-31-2017 [facility] Evaluation and no information no name no organ ization name 05-08-2017 management of - inpatient 05-12-2017 05-05-2017 Evaluation and no information no name no organ ization name - management of 05-06-2017 inpatient [facility] Evaluation and no information no name no organ ization name 03-22-2017 management of - inpatient 03-23-2017 10-12-2016 Evaluation and no information no name no organ ization name - management of 10-13-2016 inpatient 07-24-2016 Evaluation and no information no name no organ ization name - management of 07-25-2016 inpatient 06-07-2013 Evaluation and no information no name no organ ization name - management of 06-08-2013 inpatient 07-01-2012 Evaluation and no information no name no organ ization name - management of 07-02-2012 inpatient 05-17-2012 Evaluation and no information no name no organ ization name - management of 05-18-2012 inpatient 12-06-2011 Evaluation and no information no name no organ ization name - management of 12-07-2011 inpatient 09-04-2011 Evaluation and no information no name no organ ization name - management of 09-05-2011 inpatient 06-27-2011 Evaluation and no information no name no organ ization name - management of 06-28-2011 inpatient [facility] Patient encounter no information no name no or ganization name 03-18-2018 - 03-18-2018 02-15-2018 Patient encounter no information no name no or ganization name - 02-15-2018 02-14-2018 Patient encounter no information no name no or ganization name - 02-15-2018 02-10-2018 Patient encounter no information no name no or ganization name 12-05-2017 Patient encounter no information no name no or ganization name - 12-06-2017 11-15-2017 Patient encounter no information no name no or ganization name 10-13-2017 Patient encounter no information no name no or ganization name - 10-15-2017 09-16-2017 Patient encounter no information no name no or ganization name 09-14-2017 Patient encounter no information no name no or ganization name - 09-15-2017 07-25-2017 Patient encounter no information no name no or ganization name - 07-31-2017 06-16-2017 Patient encounter no information no name no or ganization name [facility] Patient encounter no information no name no or ganization name 06-04-2017 05-08-2017 Patient encounter no information no name no or ganization name - 05-12-2017 05-05-2017 Patient encounter no information no name no or ganization name - 05-06-2017 03-22-2017 Patient encounter no information no name no or ganization name - 03-23-2017 01-22-2017 Patient encounter no information no name no or ganization name 08-27-2016 Patient encounter no information no name no or ganization name 04-16-2016 Patient encounter no information no name no or ganization name 04-04-2016 Patient encounter no information no name no or ganization name 02-15-2016 Patient encounter no information no name no or ganization name - 02-15-2016 02-13-2016 Patient encounter no information no name no or ganization name - 02-13-2016 09-11-2015 Patient encounter no information no name no or ganization name 07-03-2015 Patient encounter no information no name no or ganization name - 08-03-2015 05-02-2015 Patient encounter no information no name no or ganization name 03-30-2015 Patient encounter no information no name no or ganization name 09-21-2014 Patient encounter no information no name no or ganization name - 09-21-2014 08-31-2014 Patient encounter no information no name no or ganization name 08-18-2014 Patient encounter no information no name no or ganization name 02-10-2014 Patient encounter no information no name no or ganization name 11-18-2013 Patient encounter no information no name no or ganization name 09-06-2013 Patient encounter no information no name no or ganization name 08-31-2013 Patient encounter no information no name no or ganization name - 11-17-2013 08-05-2013 Patient encounter no information no name no or ganization name - 08-11-2013 04-29-2013 Patient encounter no information no name no or ganization name 03-22-2013 Patient encounter no information no name no or ganization name 01-26-2013 Patient encounter no information no name no or ganization name - 01-27-2013 09-02-2012 Patient encounter no information no name no or ganization name [facility] Patient encounter no information no name no or ganization name 06-29-2019 Patient encounter no information no name no or ganization name - procedure 06-29-2019 06-07-2019 Patient encounter no information no name no or ganization name - procedure 06-07-2019 05-31-2019 Patient encounter no information no name no or ganization name procedure 04-27-2019 Patient encounter no information no name no or ganization name - procedure 04-27-2019 04-16-2019 Patient encounter no information no name no or ganization name - procedure 04-18-2019 03-29-2019 Patient encounter no information no name no or ganization name - procedure 03-30-2019 02-11-2019 Patient encounter no information no name no or ganization name procedure 02-11-2019 Patient encounter no information no name no or ganization name procedure 01-13-2019 Patient encounter no information no name no or ganization name - procedure 01-14-2019 12-25-2018 Patient encounter no information no name no or ganization name - procedure 12-26-2018 12-25-2018 Patient encounter no information no name no or ganization name - procedure 12-26-2018 12-22-2018 Patient encounter no information no name no or ganization name - procedure 12-23-2018 12-16-2018 Patient encounter no information no name no or ganization name - procedure 12-17-2018 12-16-2018 Patient encounter no information no name no or ganization name - procedure 12-17-2018 12-12-2018 Patient encounter no information no name no or ganization name procedure 12-06-2018 Patient encounter no information no name no or ganization name procedure 11-20-2018 Patient encounter no information no name no or ganization name - procedure 12-11-2018 11-20-2018 Patient encounter no information no name no or ganization name procedure 11-17-2018 Patient encounter no information no name no or ganization name procedure 11-17-2018 Patient encounter no information no name no or ganization name procedure 11-11-2018 Patient encounter no information no name no or ganization name procedure 11-09-2018 Patient encounter no information no name no or ganization name procedure 11-06-2018 Patient encounter no information no name no or ganization name procedure 11-06-2018 Patient encounter no information no name no or ganization name - procedure 11-09-2018 11-04-2018 Patient encounter no information no name no or ganization name procedure 10-30-2018 Patient encounter no information no name no or ganization name procedure 10-23-2018 Patient encounter no information no name no or ganization name procedure 10-23-2018 Patient encounter no information no name no or ganization name procedure 10-02-2018 Patient encounter no information no name no or ganization name procedure 09-23-2018 Patient encounter no information no name no or ganization name procedure 09-11-2018 Patient encounter no information no name no or ganization name procedure 09-08-2018 Patient encounter no information no name no or ganization name - procedure 09-09-2018 09-03-2018 Patient encounter no information no name no or ganization name - procedure 09-04-2018 09-02-2018 Patient encounter no information no name no or ganization name procedure 08-28-2018 Patient encounter no information no name no or ganization name procedure 08-26-2018 Patient encounter no information no name no or ganization name procedure 08-21-2018 Patient encounter no information no name no or ganization name - procedure 08-22-2018 08-20-2018 Patient encounter no information no name no or ganization name procedure 08-14-2018 Patient encounter no information no name no or ganization name procedure 08-12-2018 Patient encounter no information no name no or ganization name procedure 08-07-2018 Patient encounter no information no name no or ganization name procedure 07-09-2018 Patient encounter no information no name no or ganization name - procedure 07-10-2018 07-03-2018 Patient encounter no information no name no or ganization name - procedure 07-04-2018 06-30-2018 Patient encounter no information no name no or ganization name procedure 06-30-2018 Patient encounter no information no name no or ganization name - procedure 07-01-2018 06-24-2018 Patient encounter no information no name no or ganization name - procedure 08-06-2018 06-19-2018 Patient encounter no information no name no or ganization name procedure 06-17-2018 Patient encounter no information no name no or ganization name procedure 06-12-2018 Patient encounter no information no name no or ganization name procedure 06-05-2018 Patient encounter no information no name no or ganization name procedure 05-29-2018 Patient encounter no information no name no or ganization name procedure 05-27-2018 Patient encounter no information no name no or ganization name procedure 05-20-2018 Patient encounter no information no name no or ganization name procedure 05-13-2018 Patient encounter no information no name no or ganization name procedure 05-08-2018 Patient encounter no information no name no or ganization name procedure 04-25-2018 Patient encounter no information no name no or ganization name procedure 04-22-2018 Patient encounter no information no name no or ganization name - procedure 04-23-2018 03-10-2018 Patient encounter no information no name no or ganization name - procedure 03-11-2018 03-05-2018 Patient encounter no information no name no or ganization name - procedure 03-06-2018 02-25-2018 Patient encounter no information no name no or ganization name - procedure 02-26-2018 01-16-2018 Patient encounter no information no name no or ganization name - procedure 01-17-2018 12-02-2017 Patient encounter no information no name no or ganization name - procedure 12-03-2017 10-28-2017 Patient encounter no information no name no or ganization name - procedure 10-29-2017 10-22-2017 Patient encounter no information no name no or ganization name - procedure 10-23-2017 10-07-2017 Patient encounter no information no name no or ganization name - procedure 10-08-2017 09-23-2017 Patient encounter no information no name no or ganization name - procedure 09-24-2017 07-16-2017 Patient encounter no information no name no or ganization name - procedure 07-17-2017 06-25-2017 Patient encounter no information no name no or ganization name - procedure 06-26-2017 05-20-2017 Patient encounter no information no name no or ganization name - procedure 05-21-2017 01-10-2017 Patient encounter no information no name no or ganization name - procedure 01-10-2017 10-12-2016 Patient encounter no information no name no or ganization name - procedure 10-13-2016 09-27-2016 Patient encounter no information no name no or ganization name - procedure 09-28-2016 07-24-2016 Patient encounter no information no name no or ganization name - procedure 07-25-2016 03-29-2016 Patient encounter no information no name no or ganization name procedure 03-31-2012 Patient encounter no information no name no or ganization name procedure 11-27-2011 Patient encounter no information no name no or ganization name procedure 10-23-2011 Patient encounter no information no name no or ganization name - procedure 10-23-2011 10-02-2011 Patient encounter no information no name no or ganization name - procedure 10-02-2011 09-30-2011 Patient encounter no information no name no or ganization name procedure 09-20-2011 Patient encounter no information no name no or ganization name procedure 09-12-2011 Patient encounter no information no name no or ganization name procedure 06-05-2011 Patient encounter no information no name no or ganization name procedure no information Encounter for other no name no organiz ation name preprocedural examination no information Pre-operative no name no organization name examination, unspecified Medical Equipment No Information Payers Normalized Payer Value Medicare no information Advance Directives Directive Response Recor ded Date Advance Directives Y 10:00pm Health Care Power of Machine Brusher N 11/06/12 10:00pm Organ Donor N 11/06/12 1 0:00pm Directive Response Recor ded Date Advance Directives Y 4:25am Health Care Power of Machine Brusher N 01/26/13 4:25am Organ Donor N 01/26/13 4 :25am Directive Response Recor ded Date Advance Directives Y 9:36pm Health Care Power of Machine Brusher N 03/03/13 9:36pm Organ Donor N 03/03/13 9 :36pm Additional Source Comments This clinical document has been generated using [employer] software that has been certified by the Office of the National Coordinator for Health Information Technology (ONC 15.99.04.3023.[id number]) and the National [employer] for [employer] (NCQA, as an eMeasure certified technology). FOR RECORDS PERTAINING TO PATIENTS WHO ARE OR HAVE BEEN ENROLLED IN A CHEMICAL D EPENDENCY/SUBSTANCE ABUSE PROGRAM, SOME INFORMATION MAY BE OMITTED. This clinica l summary was aggregated from multiple sources. Caution should be exercised in using it in the provision of clinical care. This summary normalizes information from multiple sources, and as a consequence, information in this document may ma terially change the coding, format and clinical context of patient data. In jose tion, data may be omitted in some cases. CLINICAL DECISIONS SHOULD BE BASED ON T HE PRIMARY CLINICAL RECORDS. [employer] provides no warranty or guara ntee of the accuracy or completeness of information in this document.The followi ng information is based on time limited clinical information UNRECOGNIZED CONTENT PROVIDED BELOW FOR UNRECOGNIZED SECTION REASON FOR VISIT EMR-[facility] – [place], [place]
--- OUTSIDE RECORDS SUMMARY | 2019-11-08 13:56 | XMS REPORT | Continuity of Care Document ---
Demographics Preferred Language Unknown Marital Status Unknown Confucianist Affiliation Unknown Race Unknown Ethnic Group Unknown Author Organization Unknown Address Unknown Phone Unavailable Allergies Active Description Code Type Severity Reaction Onset Reported/Identified Relationship to Patient Clinical Status Yes SYMBICORT SYMBICORT MODERATE Yes TETANUS TETANUS MODERATE Yes SYMBICORT UNKNOWN OTHER Yes SYMBICORT UNKNOWN UNKNOWN Yes SYMBICORT MODERATE MODERATE Yes SYMBICORT MODERATE OTHER Yes TETANUS MODERATE MODERATE Yes TETANUS MODERATE OTHER Yes TETANUS-DIPHTHERIA TOXOIDS-TD UNKNOWN UNKNOWN Yes budesonide [id number] Drug Allerg y Unknown N/A 05/08/2017 Yes formoterol [id number] Drug Allerg y Unknown N/A 05/08/2017 Yes tetanus toxoid, adsorbed [id number] Drug Allergy Unknown N/A 05/08/2017 Yes budesonide [id number] Drug Allerg y Severe angioedema 12/06/2018 Yes formoterol [id number] Drug Allerg y Severe angioedema 12/06/2018 Yes tetanus toxoid, adsorbed [id number] Drug Allergy Mild hives 12/06/2018 Yes DOROTA Inhibitors [id number] Dr serra Allergy Unknown Angioedema 12/06/2018 Medications Medication Packaging Start Date St op Date Route Dosage Sig IPRATROPIUM/ALBUTEROL INH SO LN (DUO-NEB INH SOLN) MLS 07/20/2017 07/20/2017 [id number] Metoprolol IV soln 5mg/5cc vial (Lopressor ) MG 07/20/2017 07/20/2017 [id number] Problems Date Dx Coded Attending Type Code Diagnosis Diagnosed By 10/19/2009 Ot 305.1 10/19/2009 Ot 311 10/19/2009 Ot 412 10/19/2009 Ot 414.00 10/19/2009 Ot 433.10 10/19/2009 Ot 496 10/19/2009 Ot 782.0 10/19/2009 Ot 786.50 10/19/2009 Ot V45.81 10/19/2009 Ot V58.63 10/19/2009 Ot V58.66 10/19/2009 Ot V58.69 04/25/2010 Ot 276.7 04/25/2010 Ot 789.09 04/25/2010 Ot 790.5 07/03/2010 Ot 272.4 HYPE RLIPIDEMIA NEC/NOS 07/03/2010 Ot 305.1 TOBA BUSINESS PROPOSAL REP USE DISORDER 07/03/2010 Ot 401.9 HYPE RTENSION NOS 07/03/2010 Ot 414.01 COR ONARY ATHEROSCLEROSIS OF [place] CORON 07/03/2010 Ot 414.02 COR ON ATHEROSCLEROSIS AUTOLOG VEIN BYPAS 07/03/2010 Ot 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 JIMMIE TOTAL OCCLUSION OF CORONARY TOM 07/03/2010 Ot 496 CHR AI RWAY OBSTRUCT NEC 07/03/2010 Ot 715.90 OST EOARTHROS NOS- UNSPEC 07/03/[address] PAIN NEC 07/03/2010 Ot V45.81 AOR TOCORONARY BYPASS 07/03/2010 Ot V45.82 PER CUTANEOUS TRANSLUM CORON ANGIOPLASTY 07/03/2010 Ot V58.63 SHAYNA G- TERM(CURRENT)USE OF ANTIPLATELET/AN 07/03/2010 Ot V58.69 OTH MED,LT,CURRENT USE 12/08/2010 Ot 272.4 HYPE RLIPIDEMIA NEC/NOS 12/08/2010 Ot 401.9 HYPE RTENSION NOS 12/08/2010 Ot 414.00 COR ON ATHEROSCLER NOS TYPE VESSEL, NATIV 12/08/2010 Ot 496 CHR AI RWAY OBSTRUCT NEC 12/08/[address] PAIN NOS 12/08/2010 Ot V15.82 HIS TORY OF TOBACCO USE 12/08/2010 Ot V45.81 AOR TOCORONARY BYPASS 12/08/2010 Ot V45.82 PER CUTANEOUS TRANSLUM CORON ANGIOPLASTY 12/08/2010 Ot V58.63 SHAYNA G- TERM(CURRENT)USE OF ANTIPLATELET/AN 12/08/2010 Ot V58.66 SHAYNA G-TERM (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 12/08/2010 Ot V58.69 OTH MED,LT,CURRENT USE 06/28/2011 Ot 272.4 HYPE RLIPIDEMIA NEC/NOS 06/28/2011 Ot 300.00 ANX IETY STATE NOS 06/28/2011 Ot 305.1 TOBA BUSINESS PROPOSAL REP USE DISORDER 06/28/2011 Ot 338.4 MAINTENANCE CONSTRUCTION HELPER JIMMIE PAIN SYNDROME 06/28/2011 Ot 401.9 HYPE RTENSION NOS 06/28/2011 Ot 414.00 COR ON ATHEROSCLER NOS TYPE VESSEL, NATIV 06/28/2011 Ot 414.8 CHR ISCHEMIC HRT DIS NEC 06/28/2011 Ot 493.22 CHR ONIC OBSTRUCTIVE ASTHMA, W (ACUTE) EX 06/28/[address] PAIN NEC 06/28/2011 Ot V58.63 SHAYNA G- TERM(CURRENT)USE OF ANTIPLATELET/AN 06/28/2011 Ot V58.69 OTH MED,LT,CURRENT USE 09/05/2011 Ot 272.4 HYPE RLIPIDEMIA NEC/NOS 09/05/2011 Ot 300.00 ANX IETY STATE NOS 09/05/2011 Ot 401.9 HYPE RTENSION NOS 09/05/2011 Ot 412 OLD MY OCARDIAL INFARCT 09/05/2011 Ot 414.01 COR ONARY ATHEROSCLEROSIS OF [place] CORON 09/05/2011 Ot 496 CHR AI RWAY OBSTRUCT NEC 09/05/[address] PAIN NOS 09/05/2011 Ot V15.82 HIS TORY OF TOBACCO USE 09/05/2011 Ot V45.81 AOR TOCORONARY BYPASS 09/05/2011 Ot V45.82 PER CUTANEOUS TRANSLUM CORON ANGIOPLASTY 10/02/2011 Ot 532.90 DUO DENAL ULCER NOS 10/02/2011 Ot 535.40 OTH SPECIFIED GASTRITIS,W/O MENTION OF H 10/02/2011 Ot E934.8 ADV EFF BLOOD AGENT NEC 10/23/2011 Ot 272.4 HYPE RLIPIDEMIA NEC/NOS 10/23/2011 Ot 401.9 HYPE RTENSION NOS 10/23/2011 Ot 411.1 INTE RMED CORONARY SYND 10/23/2011 Ot 414.01 COR ONARY ATHEROSCLEROSIS OF [place] CORON 10/23/2011 Ot 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 JIMMIE TOTAL OCCLUSION OF CORONARY TOM 10/23/2011 Ot 428.0 VASHTI ESTIVE HEART FAILURE NOS 10/23/2011 Ot 428.22 CHR ONIC SYSTOLIC HRT FAILURE 10/23/2011 Ot 496 CHR AI RWAY OBSTRUCT NEC 10/23/2011 Ot 784.0 HEAD ACHE 10/23/2011 Ot V15.82 HIS TORY OF TOBACCO USE 10/23/2011 Ot V45.81 AOR TOCORONARY BYPASS 12/07/2011 Ot 272.4 HYPE RLIPIDEMIA NEC/NOS 12/07/2011 Ot 305.1 TOBA BUSINESS PROPOSAL REP USE DISORDER 12/07/2011 Ot 401.9 HYPE RTENSION NOS 12/07/2011 Ot 414.00 COR ON ATHEROSCLER NOS TYPE VESSEL, NATIV 12/07/2011 Ot 428.0 VASHTI ESTIVE HEART FAILURE NOS 12/07/2011 Ot 496 CHR AI RWAY OBSTRUCT NEC 12/07/2011 Ot V45.81 AOR TOCORONARY BYPASS 12/19/2011 Ot 305.1 TOBA BUSINESS PROPOSAL REP USE DISORDER 12/19/2011 Ot 414.00 COR ON ATHEROSCLER NOS TYPE VESSEL, NATIV 12/19/2011 Ot 496 CHR AI RWAY OBSTRUCT NEC 12/19/[address] PAIN NOS 12/19/2011 Ot V45.81 AOR TOCORONARY BYPASS 12/19/2011 Ot V58.69 OTH MED,LT,CURRENT USE 05/18/2012 Ot 272.4 HYPE RLIPIDEMIA NEC/NOS 05/18/2012 Ot 300.00 ANX IETY STATE NOS 05/18/2012 Ot 305.1 TOBA BUSINESS PROPOSAL REP USE DISORDER 05/18/2012 Ot 311 DEPRES SIVE DISORDER NEC 05/18/2012 Ot 401.9 HYPE RTENSION NOS 05/18/2012 Ot 414.00 COR ON ATHEROSCLER NOS TYPE VESSEL, NATIV 05/18/2012 Ot 428.0 VASHTI ESTIVE HEART FAILURE NOS 05/18/2012 Ot 428.22 CHR ONIC SYSTOLIC HRT FAILURE 05/18/2012 Ot 491.21 OBS TR CHRONIC BRONCHITIS, W (ACUTE) EXAC 05/18/2012 Ot 780.52 INS OMNIA, UNSPECIFIED 05/18/2012 Ot V03.82 PRO PHYLACTIC VACC AGAINST STREPTOCOCCUS 05/18/2012 Ot V45.81 AOR TOCORONARY BYPASS 07/02/2012 Ot 272.4 HYPE RLIPIDEMIA NEC/NOS 07/02/2012 Ot 275.2 DIS MAGNESIUM METABOLISM 07/02/2012 Ot 305.1 TOBA BUSINESS PROPOSAL REP USE DISORDER 07/02/2012 Ot 401.9 HYPE RTENSION NOS 07/02/2012 Ot 414.01 COR ONARY ATHEROSCLEROSIS OF [place] CORON 07/02/2012 Ot 414.02 COR ON ATHEROSCLEROSIS AUTOLOG VEIN BYPAS 07/02/2012 Ot 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 JIMMIE TOTAL OCCLUSION OF CORONARY TOM 07/02/2012 Ot 428.22 CHR ONIC SYSTOLIC HRT FAILURE 07/02/2012 Ot 491.21 OBS TR CHRONIC BRONCHITIS, W (ACUTE) EXAC 07/02/[address] PAIN NOS 07/02/2012 Ot V45.81 AOR TOCORONARY BYPASS 07/02/2012 Ot V45.82 PER CUTANEOUS TRANSLUM CORON ANGIOPLASTY 11/09/2012 CHRISTOPHER HULL MD Ot 272.4 HYPERLIPIDEMIA NEC/NOS 11/09/2012 CHRISTOPHER HULL MD Ot 311 DEPRESSIVE DISORDER NEC 11/09/2012 CHRISTOPHER HULL MD Ot 401.9 HYPERTENSION NOS 11/09/2012 CHRISTOPHER HULL MD Ot 414.00 CORON ATHEROSCLER NOS TYPE VESSEL, NATIV 11/09/2012 CHRISTOPHER HULL MD Ot 428.0 CONGESTIVE HEART FAILURE NOS 11/09/2012 CHRISTOPHER HULL MD Ot 428.22 CHRONIC SYSTOLIC HRT FAILURE 11/09/2012 CHRISTOPHER HULL MD Ot 491.21 OBSTR CHRONIC BRONCHITIS, W (ACUTE) EXAC 11/09/2012 CHRISTOPHER HULL MD Ot 790.29 OTHER ABNORMAL GLUCOSE 11/09/2012 CHRISTOPHER HULL MD Ot V15.81 HX OF PAST NONCOMPLIANCE 11/09/2012 CHRISTOPHER HULL MD Ot V15.82 HISTORY OF TOBACCO USE 11/09/2012 CHRISTOPHER HULL MD Ot V45.81 AORTOCORONARY BYPASS 01/27/2013 JOSHUA CASTILLO MD Ot 250. 00 DIAB PEE WO COMPL, TYPE II OR UNSPEC TY 01/27/2013 JOSHUA CASTILLO MD Ot 272. 4 HYPERLIPIDEMIA NEC/NOS 01/27/2013 JOSHUA CASTILLO MD Ot 300. 00 ANXIETY STATE NOS 01/27/2013 JOSHUA CASTILLO MD Ot 401. 9 HYPERTENSION NOS 01/27/2013 JOSHUA CASTILLO MD Ot 411. 1 INTERMED CORONARY SYND 01/27/2013 JOSHUA CASTILLO MD Ot 414. 01 CORONARY ATHEROSCLEROSIS OF [place] CORON 01/27/2013 JOSHUA CASTILLO MD Ot 414. 02 CORON ATHEROSCLEROSIS AUTOLOG VEIN BYPAS 01/27/2013 JOSHUA CASTILLO MD Ot 414. 4 CORONARY ATHEROSCLEROSIS DUE TO [place] 01/27/2013 JOSHUA CASTILLO MD Ot 496 CHR AIRWAY OBSTRUCT NEC 01/27/2013 JOSHUA CASTILLO MD Ot V15. 82 HISTORY OF TOBACCO USE 01/27/2013 JOSHUA CASTILLO MD Ot V45. 81 AORTOCORONARY BYPASS 01/27/2013 JOSHUA CASTILLO MD Ot V45. 82 PERCUTANEOUS TRANSLUM CORON ANGIOPLASTY 01/27/2013 JOSHUA CASTILLO MD Ot V58. 63 LONG-TERM(CURRENT)USE OF ANTIPLATELET/AN 01/27/2013 OJSHUA CASTILLO MD Ot V58. 66 LONG-TERM (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 01/27/2013 JOSHUA CASTILLO MD, Ot V58. 69 OT MED,LT,CURRENT USE 03/04/2013 JOSHUA CASTILLO MD Ot 250. 00 DIAB PEE WO COMPL, TYPE II OR UNSPEC TY 03/04/2013 JOSHUA CASTILLO MD Ot 272. 4 HYPERLIPIDEMIA NEC/NOS 03/04/2013 JOSHUA CASTILLO MD Ot 300. 00 ANXIETY STATE NOS 03/04/2013 JOSHUA CASTILLO MD Ot 305. 1 TOBACCO USE DISORDER 03/04/2013 JOSHUA CASTILLO MD Ot 311 DEPRESSIVE DISORDER NEC 03/04/2013 JOSHUA CASTILLO MD Ot 411. 1 INTERMED CORONARY SYND 03/04/2013 JOSHUA CASTILLO MD Ot 414. 02 CORON ATHEROSCLEROSIS AUTOLOG VEIN BYPAS 03/04/2013 JOSHUA CASTILLO MD Ot 414. 2 CHRONIC TOTAL OCCLUSION OF CORONARY TOM 03/04/2013 JOSHUA CASTILLO MD Ot 491. 21 OBSTR CHRONIC BRONCHITIS, W (ACUTE) EXAC 03/04/2013 JOSHUA CASTILLO MD Ot V04. 81 ND FOR PROPHYLACTIC VACCIN AND INOCULATI 03/04/2013 JOSHUA CASTILLO MD Ot V45. 81 AORTOCORONARY BYPASS 06/08/2013 DALLIN LUCAS MD Ot 305 .1 TOBACCO USE DISORDER 06/08/2013 DALLIN LUCAS MD Ot 411 .1 INTERMED CORONARY SYND 06/08/2013 DALLIN LUCAS MD Ot 414.00 CORON ATHEROSCLER NOS TYPE VESSEL, NATIV 06/08/2013 DALLIN LUCAS MD Ot 414 .2 CHRONIC TOTAL OCCLUSION OF CORONARY TOM 06/08/2013 DALLIN LUCAS MD Ot 496 CHR AIRWAY OBSTRUCT NEC 06/08/2013 HUERTER MD, DALLIN F Ot 787.02 NAUSEA ALONE 06/08/2013 LANCE CRANE, DALLIN Polk Ot 996.72 OTH COMPLICATIONS DUE TO OTH CARD DEVICE 06/08/2013 LANCE CRANE, DALLIN Polk Ot V45.81 AORTOCORONARY BYPASS 08/11/2013 XIMENA QUINONES DO Ot 300. 00 ANXIETY STATE NOS 08/11/2013 XIMENA QUINONES DO Ot 414. 00 CORON ATHEROSCLER NOS TYPE VESSEL, NATIV 08/11/2013 XIMENA QUINONES DO Ot 496 CHR AIRWAY OBSTRUCT NEC 08/11/2013 XIMENA QUINONES DO Ot V57. 89 REHABILITATION PROC NEC 11/17/2013 XIMENA QUINONES DO Ot 300. 00 ANXIETY STATE NOS 11/17/2013 XIMENA QUINONES DO Ot 414. 00 CORON ATHEROSCLER NOS TYPE VESSEL, NATIV 11/17/2013 XIMENA QUINONES DO Ot 496 CHR AIRWAY OBSTRUCT NEC 11/17/2013 XIMENA QUINONES DO Ot V57. 89 REHABILITATION PROC NEC 08/31/2014 Ot 414.01 08/31/2014 Ot 786.50 08/31/2014 Ot 272.4 08/31/2014 Ot 401.9 08/31/2014 Ot 414.00 08/31/2014 Ot 272.4 08/31/2014 Ot 272.4 08/31/2014 Ot 414.00 08/31/2014 Ot 428.0 08/31/2014 Ot 272.4 08/31/2014 Ot 401.9 08/31/2014 Ot 414.00 08/31/2014 Ot 272.4 08/31/2014 Ot 786.05 08/31/2014 Ot 789.01 08/31/2014 Ot V72.84 08/31/2014 Ot 272.4 08/31/2014 Ot 496 08/31/2014 Ot 786.09 08/31/2014 Ot 496 08/31/2014 Ot 519.11 08/31/2014 Ot 786.2 08/31/2014 JONATHAN CRANE, JOSHUA Rausch Ot 414. 00 08/31/2014 JOSHUA CASTILLO MD Ot 786. 50 08/31/2014 XIMENA QUINONES DO Ot 300. 00 08/31/2014 XIMENA QUINONES DO Ot 414. 00 08/31/2014 XIMENA QUINONES DO Ot 496 08/31/2014 JOSHUA CASTILLO MD Ot 311 08/31/2014 JOSHUA CASTILLO MD Ot 401. 9 08/31/2014 JOSHUA CASTILLO MD Ot 414. 00 08/31/2014 JOSHUA CASTILLO MD Ot 428. 0 08/31/2014 JOSHUA CASTILLO MD Ot 433. 10 08/31/2014 JOSHUA CASTILLO MD Ot 496 08/31/2014 JOSHUA CASTILLO MD Ot 786. 09 08/31/2014 Ot 300.00 08/31/2014 Ot 414.00 08/31/2014 Ot 496 08/31/2014 Ot V57.89 08/31/2014 JOSHUA CASTILLO MD Ot 272. 4 08/31/2014 JOSHUA CASTILLO MD Ot 401. 9 08/31/2014 JOSHUA CASTILLO MD Ot 414. 00 08/31/2014 JOSHUA CASTILLO MD Ot 786. 50 08/31/2014 Ot 272.4 08/31/2014 Ot 401.9 08/31/2014 Ot 414.00 08/31/2014 Ot 428.0 08/31/2014 Ot 433.10 09/08/2014 Ot 272.4 09/08/2014 Ot 401.9 09/08/2014 Ot 414.00 09/08/2014 Ot 428.0 09/08/2014 Ot 433.10 09/21/2014 JOSHUA CASTILLO MD Ot 250. 00 DIAB PEE WO COMPL, TYPE II OR UNSPEC TY 09/21/2014 JOSHUA CASTILLO MD Ot 272. 4 HYPERLIPIDEMIA NEC/NOS 09/21/2014 JOSHUA CASTILLO MD Ot 305. 1 TOBACCO USE DISORDER 09/21/2014 JOSHUA CASTILLO MD Ot 401. 9 HYPERTENSION NOS 09/21/2014 JOSHUA CASTILLO MD Ot 412 OLD MYOCARDIAL INFARCT 09/21/2014 JOSHUA CASTILLO MD Ot 414. 01 CORONARY ATHEROSCLEROSIS OF [place] CORON 09/21/2014 JOSHUA CASTILLO MD Ot 414. 02 CORON ATHEROSCLEROSIS AUTOLOG VEIN BYPAS 09/21/2014 JOSHUA CASTILLO MD Ot 414. 2 CHRONIC TOTAL OCCLUSION OF CORONARY TOM 09/21/2014 JOSHUA CASTILLO MD Ot 428. 0 CONGESTIVE HEART FAILURE NOS 09/21/2014 JOSHUA CASTILLO MD Ot 496 CHR AIRWAY OBSTRUCT NEC 09/21/2014 JOSHUA CASTILLO MD Ot 786. 50 CHEST PAIN NOS 09/21/2014 JOSHUA CASTILLO MD Ot V45. 81 AORTOCORONARY BYPASS 09/21/2014 JOSHUA CASTILLO MD Ot V45. 82 PERCUTANEOUS TRANSLUM CORON ANGIOPLASTY 09/21/2014 JOSHUA CASTILLO MD Ot V46. 2 SUPPLEMENTAL OXYGEN 09/21/2014 JOSHUA CASTILLO MD Ot V58. 69 OT MED,LT,CURRENT USE 09/21/2014 JOSHUA CASTILLO MD Ot 272. 4 09/21/2014 JOSHUA CASTILLO MD Ot 401. 9 09/21/2014 JOSHUA CASTILLO MD Ot 414. 00 09/21/2014 JOSHUA CASTILLO MD Ot 428. 0 09/21/2014 JOSHUA CASTILLO MD Ot 433. 10 09/23/2014 Ot 272.4 09/23/2014 Ot 401.9 09/23/2014 Ot 414.00 09/23/2014 Ot 428.0 09/23/2014 Ot 433.10 10/12/2014 JOSHUA CASTILLO MD Ot 272. 4 10/12/2014 JOSHUA CASTILLO MD Ot 401. 9 10/12/2014 JOSHUA CASTILLO MD Ot 414. 00 10/12/2014 JOSHUA CASTILLO MD Ot 428. 0 10/12/2014 JOSHUA CASTILLO MD Ot 433. 10 10/28/2014 JOSHUA CASTILLO MD Ot 272. 4 10/28/2014 JOSHUA CASTILLO MD Ot 401. 9 10/28/2014 JOSHUA CASTILLO MD Ot 414. 00 10/28/2014 JOSHUA CASTILLO MD Ot 428. 0 10/28/2014 JOSHUA CASTILLO MD Ot 433. 10 01/16/2015 IRIS NELSON MD Ot 401.9 HYPERTENSION NOS 01/16/2015 IRIS NELSON MD Ot 414.01 CORONARY ATHEROSCLEROSIS OF [place] CORON 01/16/2015 IRIS NELSON MD Ot 491.21 OBSTR CHRONIC BRONCHITIS, W (ACUTE) EXAC 01/16/2015 IRIS NELSON MD Ot 786.50 CHEST PAIN NOS 01/16/2015 IRIS NELSON MD Ot V15.82 HISTORY OF TOBACCO USE 01/16/2015 OMAR CRANE, IRIS Hudson Ot V46.2 SUPPLEMENTAL OXYGEN 04/08/2015 DEBBIE ESPINOSA DO Ot F17.210 NICOTINE DEPENDENCE, CIGARETTES, UNCOMPL 04/08/2015 DEBBIE ESPINOSA DO Ot I70.202 UNSP ATHSCL [place] ARTERIES OF EXTREMITI 04/08/2015 DEBBIE ESPINOSA DO Ot M51.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 16 05/30/2015 JING HOLGUIN DO Ot M54.16 06/08/2015 IOANA SAVAGE, IRIS R Ot M54. 16 06/12/2015 JING HOLGUIN DO Ot M54.16 07/05/2015 SWEET PA, IRIS R Ot M54. 16 07/10/2015 SWEET PA, IRIS R Ot M54. 16 08/03/2015 SWEET PA, IRIS R Ot M54. 16 08/03/2015 SWEET PA, IRIS R Ot M54. 16 RADICULOPATHY, LUMBAR REGION 09/12/2015 SCOTTY PA, YOUNG Jordan Ot E78.2 09/12/2015 SCOTTY PA, YOUNG Jordan Ot I10 09/12/2015 SCOTTY PA, YOUNG Jordan Ot I25.10 09/13/2015 SCOTTY PA, YOUNG Jordan Ot E78.2 09/13/2015 SCOTTY PA, YOUNG K Ot I10 09/13/2015 SCOTTY PA, YOUNG Jordan Ot I25.10 09/13/2015 SCOTTY PA, YOUNG Jordan Ot E78.2 09/13/2015 SCOTTY PA, YOUNG Jordan Ot I10 09/13/2015 SCOTTY PA, YOUNG Jordan Ot I25.10 10/03/2015 SOCTTY PA, YOUNG Jordan Ot E78.2 MIXED HYPERLIPIDEMIA 10/03/2015 YOUNG MCALLISTER Ot I10 ESSENTIAL (PRIMARY) HYPERTENSION 10/03/2015 YOUNG MCALLISTER Ot I25.10 ATHSCL HEART DISEASE OF [place] CORONARY 10/13/2015 YOUNG MCALLISTER Ot E78.2 MIXED HYPERLIPIDEMIA 10/13/2015 YOUNG MCALLISTER Ot I10 ESSENTIAL (PRIMARY) HYPERTENSION 10/13/2015 YOUNG MCALLISTER Ot I25.10 ATHSCL HEART DISEASE OF [place] CORONARY 10/25/2015 Ot 414.00 COR ON ATHEROSCLER NOS TYPE VESSEL, NATIV 10/25/2015 Ot 428.0 VASHTI ESTIVE HEART FAILURE NOS 10/25/2015 Ot 272.4 HYPE RLIPIDEMIA NEC/NOS 10/25/2015 Ot 401.9 HYPE RTENSION NOS 10/25/2015 Ot 414.00 COR ON ATHEROSCLER NOS TYPE VESSEL, NATIV 10/25/2015 Ot 272.4 HYPE RLIPIDEMIA NEC/NOS 10/25/2015 Ot 786.05 KINGSLEY RTNESS OF BREATH 10/25/2015 Ot 789.01 ABD OMINAL PAIN, RIGHT UPPER QUADRANT 10/25/2015 Ot V72.84 EXA M PRE- OPERATIVE NOS 10/25/2015 Ot 272.4 HYPE RLIPIDEMIA NEC/NOS 10/25/2015 Ot 496 CHR AI RWAY OBSTRUCT NEC 10/25/2015 Ot 786.09 RES PIRATORY ABNORM NEC 10/25/2015 Ot 496 CHR AI RWAY OBSTRUCT NEC 10/25/2015 Ot 519.11 ACU TE BRONCHOSPASM 10/25/2015 Ot 786.2 COUGH 10/25/2015 JOSHUA CASTILLO MD Ot 414. 00 CORON ATHEROSCLER NOS TYPE VESSEL, NATIV 10/25/2015 JOSHUA CASTILLO MD Ot 786. 50 CHEST PAIN NOS 10/25/2015 XIMENA QUINONES DO Ot 300. 00 ANXIETY STATE NOS 10/25/2015 XIMENA QUINONES DO Ot 414. 00 CORON ATHEROSCLER NOS TYPE VESSEL, NATIV 10/25/2015 XIMENA QUINONES DO Ot 496 CHR AIRWAY OBSTRUCT NEC 10/25/2015 JOSHUA CASTILLO MD Ot 311 DEPRESSIVE DISORDER NEC 10/25/2015 JOSHUA CASTILLO MD Ot 401. 9 HYPERTENSION NOS 10/25/2015 JOSHUA CASTILLO MD Ot 414. 00 CORON ATHEROSCLER NOS TYPE VESSEL, NATIV 10/25/2015 JOSHUA CASTILLO MD Ot 428. 0 CONGESTIVE HEART FAILURE NOS 10/25/2015 JOSHUA CASTILLO MD Ot 433. 10 CAROTID ARTERY OCCLUSION W O CEREBRAL IN 10/25/2015 JOSHUA CASTILLO MD Ot 496 CHR AIRWAY OBSTRUCT NEC 10/25/2015 JOSHUA CASTILLO MD Ot 786. 09 RESPIRATORY ABNORM NEC 10/25/2015 Ot 300.00 ANX IETY STATE NOS 10/25/2015 Ot 414.00 COR ON ATHEROSCLER NOS TYPE VESSEL, NATIV 10/25/2015 Ot 496 CHR AI RWAY OBSTRUCT NEC 10/25/2015 Ot V57.89 PRIYANKA ABILITATION PROC NEC 10/25/2015 JOSHUA CASTILLO MD Ot 272. 4 HYPERLIPIDEMIA NEC/NOS 10/25/2015 JOSHUA CASTILLO MD Ot 401. 9 HYPERTENSION NOS 10/25/2015 JOSHUA CASTILLO MD Ot 414. 00 CORON ATHEROSCLER NOS TYPE VESSEL, NATIV 10/25/2015 JOSHUA CASTILLO MD Ot 786. 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 4 HYPERLIPIDEMIA NEC/NOS 10/25/2015 JOSHUA CASTILLO MD Ot 401. 9 HYPERTENSION NOS 10/25/2015 JOSHUA CASTILLO MD Ot 414. 00 CORON ATHEROSCLER NOS TYPE VESSEL, NATIV 10/25/2015 JOSHUA CASTILLO MD Ot 428. 0 CONGESTIVE HEART FAILURE NOS 10/25/2015 JOSHUA CASTILLO MD Ot 433. 10 CAROTID ARTERY OCCLUSION W O CEREBRAL IN 10/25/2015 CATE HERRERA APRN Ot J44.9 CHRONIC OBSTRUCTIVE PULMONARY DISEASE, U 10/25/2015 JING HOLGUIN DO Ot M54.16 RADICULOPATHY, LUMBAR REGION 10/25/2015 YOUNG MCALLISTER Ot E78.2 MIXED HYPERLIPIDEMIA 10/25/2015 YOUNG MCALLISTER Ot I10 ESSENTIAL (PRIMARY) HYPERTENSION 10/25/2015 YOUNG MCALLISETR Ot I25.10 ATHSCL HEART DISEASE OF [place] CORONARY 10/26/2015 IRIS NELSON MD Ot F17.210 NICOTINE DEPENDENCE, CIGARETTES, UNCOMPL 10/26/2015 IRIS NELSON MD Ot J44.1 CHRONIC OBSTRUCTIVE PULMONARY DISEASE W 10/26/2015 IRIS NELSON MD Ot K29.70 GASTRITIS, UNSPECIFIED, WITHOUT BLEEDING 10/26/2015 IRIS NELSON MD Ot R07.9 CHEST PAIN, UNSPECIFIED 10/26/2015 IRIS NELSON MD Ot F17.210 NICOTINE DEPENDENCE, CIGARETTES, UNCOMPL 10/26/2015 IRIS NELSON MD Ot J44.1 CHRONIC OBSTRUCTIVE PULMONARY DISEASE W 10/26/2015 IRIS NELSON MD Ot K29.70 GASTRITIS, UNSPECIFIED, WITHOUT BLEEDING 10/26/2015 IRIS NELSON MD Ot R07.9 CHEST PAIN, UNSPECIFIED 10/27/2015 IRIS NELSON MD Ot F17.210 NICOTINE DEPENDENCE, CIGARETTES, UNCOMPL 10/27/2015 IRIS NELSON MD Ot J44.1 CHRONIC OBSTRUCTIVE PULMONARY DISEASE W 10/27/2015 IRIS NELSON MD Ot K29.70 GASTRITIS, UNSPECIFIED, WITHOUT BLEEDING 10/27/2015 IRIS NELSON MD Ot R07.9 CHEST PAIN, UNSPECIFIED 11/08/2015 IRIS NELSON MD Ot F17.210 NICOTINE DEPENDENCE, CIGARETTES, UNCOMPL 11/08/2015 IRIS NELSON MD Ot J44.1 CHRONIC OBSTRUCTIVE PULMONARY DISEASE W 11/08/2015 IRIS NELSON MD Ot K29.70 GASTRITIS, UNSPECIFIED, WITHOUT BLEEDING 11/08/2015 IRIS NELSON MD Ot R07.9 CHEST PAIN, UNSPECIFIED 02/13/2016 MITCHELL JOHNSON MD Ot R63.4 ABNORMAL WEIGHT LOSS 02/13/2016 MITCHELL JOHNSON MD Ot Z01.818 ENCOUNTER FOR OTHER PREPROCEDURAL EXAMIN 02/13/2016 MITCHELL JOHNSON MD Ot Z86.010 PERSONAL HISTORY OF COLONIC POLYPS 02/14/2016 MITCHELL JOHNSON MD Ot R63.4 ABNORMAL WEIGHT LOSS 02/14/2016 MITCHELL JOHNSON MD Ot Z01.818 ENCOUNTER FOR OTHER PREPROCEDURAL EXAMIN 02/14/2016 MITCHELL JOHNSON MD Ot Z86.010 PERSONAL HISTORY OF COLONIC POLYPS 02/15/2016 MITCHELL JOHNSON MD Ot D12.3 BENIGN NEOPLASM OF TRANSVERSE COLON 02/15/2016 MITCHELL JOHNSON MD Ot K29.70 GASTRITIS, UNSPECIFIED, WITHOUT BLEEDING 02/15/2016 MITCHELL JOHNSON MD Ot K57.30 DVRTCLOS OF LG INT W/O PERFORATION OR AB 02/15/2016 MITCHELL JOHNSON MD Ot K62.1 RECTAL POLYP 02/15/2016 MITHCELL JOHNSON MD Ot K64.9 UNSPECIFIED HEMORRHOIDS 02/15/2016 MITCHELL JOHNSON MD Ot R63.4 ABNORMAL WEIGHT LOSS 02/15/2016 MITCHELL JOHNSON MD Ot Z12.11 ENCOUNTER FOR SCREENING FOR MALIGNANT NE 02/15/2016 MITCHELL JOHNSON MD Ot Z86.010 PERSONAL HISTORY OF COLONIC POLYPS 02/15/2016 MITCHELL JOHNSON MD Ot Z87.11 PERSONAL HISTORY OF PEPTIC ULCER DISEASE 02/21/2016 MITCHELL JOHNSON MD Ot D12.3 BENIGN NEOPLASM OF TRANSVERSE COLON 02/21/2016 MITCHELL JOHNSON MD Ot K29.70 GASTRITIS, UNSPECIFIED, WITHOUT BLEEDING 02/21/2016 MITCHELL JOHNSON MD Ot K57.30 DVRTCLOS OF LG INT W/O PERFORATION OR AB 02/21/2016 MITCHELL JOHNSON MD Ot K62.1 RECTAL POLYP 02/21/2016 MITCHELL JOHNSON MD Ot K64.9 UNSPECIFIED HEMORRHOIDS 02/21/2016 MITCHELL JOHNSON MD Ot R63.4 ABNORMAL WEIGHT LOSS 02/21/2016 MITCHELL JOHNSON MD Ot Z12.11 ENCOUNTER FOR SCREENING FOR MALIGNANT NE 02/21/2016 MITCHELL JOHNSON MD Ot Z86.010 PERSONAL HISTORY OF COLONIC POLYPS 02/21/2016 MITCHELL JOHNSON MD Ot Z87.11 PERSONAL HISTORY OF PEPTIC ULCER DISEASE 02/27/2016 ALEX CRANE, MITCHELL Chapin Ot D12.3 BENIGN NEOPLASM OF TRANSVERSE COLON 02/27/2016 ALEX CRANE, MITCHELL Chapin Ot K29.70 GASTRITIS, UNSPECIFIED, WITHOUT BLEEDING 02/27/2016 ALEX CRANE, MITCHELL Chapin Ot K57.30 DVRTCLOS OF LG INT W/O PERFORATION OR AB 02/27/2016 ALEX CRANE, MITCHELL Chapin Ot K62.1 RECTAL POLYP 02/27/2016 ALEX CRANE, MITCHELL Chapin Ot K64.9 UNSPECIFIED HEMORRHOIDS 02/27/2016 ALEX CRANE, MITCHELL Chapin Ot R63.4 ABNORMAL WEIGHT LOSS 02/27/2016 ALEX CRANE, MITCHELL Chapin Ot Z12.11 ENCOUNTER FOR SCREENING FOR MALIGNANT NE 02/27/2016 ALEX CRANE, MITCHELL Chapin Ot Z86.010 PERSONAL HISTORY OF COLONIC POLYPS 02/27/2016 ALEX CRANE, MITCHELL Chapin Ot Z87.11 PERSONAL HISTORY OF PEPTIC ULCER DISEASE 04/01/2016 JOSHUA CASTILLO MD Ot E78. 5 HYPERLIPIDEMIA, UNSPECIFIED 04/01/2016 JOSHUA CASTILLO MD Ot F41. 9 ANXIETY DISORDER, UNSPECIFIED 04/01/2016 JOSHUA CASTILLO MD Ot I10 ESSENTIAL (PRIMARY) HYPERTENSION 04/01/2016 JOSHUA CASTILLO MD Ot I25. 10 ATHSCL HEART DISEASE OF [place] CORONARY 04/01/2016 JOSHUA CASTILLO MD Ot R07. 89 OTHER CHEST PAIN 04/01/2016 JOSHUA CASTILLO MD Ot Z72. 0 TOBACCO USE 04/04/2016 Ot 272.4 HYPE RLIPIDEMIA NEC/NOS 04/04/2016 Ot 401.9 HYPE RTENSION NOS 04/04/2016 Ot 414.00 COR ON ATHEROSCLER NOS TYPE VESSEL, NATIV 04/04/2016 Ot 272.4 HYPE RLIPIDEMIA NEC/NOS 04/04/2016 Ot 786.05 [place] RTNESS OF BREATH 04/04/2016 Ot 789.01 ABD OMINAL PAIN, RIGHT UPPER QUADRANT 04/04/2016 Ot V72.84 EXA M PRE- OPERATIVE NOS 04/04/2016 Ot 272.4 HYPE RLIPIDEMIA NEC/NOS 04/04/2016 Ot 496 CHR AI RWAY OBSTRUCT NEC 04/04/2016 Ot 786.09 RES PIRATORY ABNORM NEC 04/04/2016 Ot 496 CHR AI RWAY OBSTRUCT NEC 04/04/2016 Ot 519.11 ACU TE BRONCHOSPASM 04/04/2016 Ot 786.2 COUGH 04/04/2016 JOSHUA CASTILLO MD Ot 414. 00 CORON ATHEROSCLER NOS TYPE VESSEL, NATIV 04/04/2016 JOSHUA CASTILLO MD Ot 786. 50 CHEST PAIN NOS 04/04/2016 XIMENA QUINONES DO Ot 300. 00 ANXIETY STATE NOS 04/04/2016 XIMENA QUINONES DO Ot 414. 00 CORON ATHEROSCLER NOS TYPE VESSEL, NATIV 04/04/2016 XIMENA QUINONES DO Ot 496 CHR AIRWAY OBSTRUCT NEC 04/04/2016 JOSHUA CASTILLO MD Ot 311 DEPRESSIVE DISORDER NEC 04/04/2016 JOSHUA CASTILLO MD Ot 401. 9 HYPERTENSION NOS 04/04/2016 JOSHUA CASTILLO MD Ot 414. 00 CORON ATHEROSCLER NOS TYPE VESSEL, NATIV 04/04/2016 JOSHUA CASTILLO MD Ot 428. 0 CONGESTIVE HEART FAILURE NOS 04/04/2016 JOSHUA CASTILLO MD Ot 433. 10 CAROTID ARTERY OCCLUSION W O CEREBRAL IN 04/04/2016 JOSHUA CASTILLO MD Ot 496 CHR AIRWAY OBSTRUCT NEC 04/04/2016 JOSHUA CASTILLO MD Ot 786. 09 RESPIRATORY ABNORM NEC 04/04/2016 Ot 300.00 ANX IETY STATE NOS 04/04/2016 Ot 414.00 COR ON ATHEROSCLER NOS TYPE VESSEL, NATIV 04/04/2016 Ot 496 CHR AI RWAY OBSTRUCT NEC 04/04/2016 Ot V57.89 PRIYANKA ABILITATION PROC NEC 04/04/2016 JOSHUA CASTILLO MD Ot 272. 4 HYPERLIPIDEMIA NEC/NOS 04/04/2016 JOSHUA CASTILLO MD Ot 401. 9 HYPERTENSION NOS 04/04/2016 JOSHUA CASTILLO MD Ot 414. 00 CORON ATHEROSCLER NOS TYPE VESSEL, NATIV 04/04/2016 JOSHUA CASTILLO MD Ot 786. 50 CHEST PAIN NOS 04/04/2016 Ot 272.4 HYPE RLIPIDEMIA NEC/NOS 04/04/2016 Ot 401.9 HYPE RTENSION NOS 04/04/2016 Ot 414.00 COR ON ATHEROSCLER NOS TYPE VESSEL, NATIV 04/04/2016 Ot 428.0 VASHTI ESTIVE HEART FAILURE NOS 04/04/2016 Ot 433.10 CAR OTID ARTERY OCCLUSION W O CEREBRAL IN 04/04/2016 JOSHUA CASTILLO MD Ot 272. 4 HYPERLIPIDEMIA NEC/NOS 04/04/2016 JOSHUA CASTILLO MD Ot 401. 9 HYPERTENSION NOS 04/04/2016 JOSHUA CASTILLO MD Ot 414. 00 CORON ATHEROSCLER NOS TYPE VESSEL, NATIV 04/04/2016 JOSHUA CASTILLO MD Ot 428. 0 CONGESTIVE HEART FAILURE NOS 04/04/2016 JOSHUA CASTILLO MD Ot 433. 10 CAROTID ARTERY OCCLUSION W O CEREBRAL IN 04/04/2016 CATE HERRERA APRN Ot J44.9 CHRONIC OBSTRUCTIVE PULMONARY DISEASE, U 04/04/2016 JING HOLGUIN DO Ot M54.16 RADICULOPATHY, LUMBAR REGION 04/04/2016 YOUNG MCALLISTER Ot E78.2 MIXED HYPERLIPIDEMIA 04/04/2016 YOUNG MCALLISTER Ot I10 ESSENTIAL (PRIMARY) HYPERTENSION 04/04/2016 YOUNG MCALLISTER Ot I25.10 ATHSCL HEART DISEASE OF [place] CORONARY 04/04/2016 JOSHUA CASTILLO MD Ot E78. 5 HYPERLIPIDEMIA, UNSPECIFIED 04/04/2016 JOSHUA CASTILLO MD Ot F41. 9 ANXIETY DISORDER, UNSPECIFIED 04/04/2016 JOSHUA CASTILLO MD Ot I10 ESSENTIAL (PRIMARY) HYPERTENSION 04/04/2016 JOSHUA CASTILLO MD Ot I25. 10 ATHSCL HEART DISEASE OF [place] CORONARY 04/04/2016 JOSHUA CASTILLO MD Ot R07. 89 OTHER CHEST PAIN 04/04/2016 JOSHUA CASTILLO MD Ot Z72. 0 TOBACCO USE 04/05/2016 Ot 272.4 HYPE RLIPIDEMIA NEC/NOS 04/05/2016 Ot 401.9 HYPE RTENSION NOS 04/05/2016 Ot 414.00 COR ON ATHEROSCLER NOS TYPE VESSEL, NATIV 04/05/2016 Ot 272.4 HYPE RLIPIDEMIA NEC/NOS 04/05/2016 Ot 786.05 KINGSLEY RTNESS OF BREATH 04/05/2016 Ot 789.01 ABD OMINAL PAIN, RIGHT UPPER QUADRANT 04/05/2016 Ot V72.84 EXA M PRE- OPERATIVE NOS 04/05/2016 Ot 272.4 HYPE RLIPIDEMIA NEC/NOS 04/05/2016 Ot 496 CHR AI RWAY OBSTRUCT NEC 04/05/2016 Ot 786.09 RES PIRATORY ABNORM NEC 04/05/2016 Ot 496 CHR AI RWAY OBSTRUCT NEC 04/05/2016 Ot 519.11 ACU TE BRONCHOSPASM 04/05/2016 Ot 786.2 COUGH 04/05/2016 JOSHUA CASTILLO MD Ot 414. 00 CORON ATHEROSCLER NOS TYPE VESSEL, NATIV 04/05/2016 JOSHUA CASTILLO MD Ot 786. 50 CHEST PAIN NOS 04/05/2016 XIMENA QUINONES DO Ot 300. 00 ANXIETY STATE NOS 04/05/2016 XIMENA QUINONES DO Ot 414. 00 CORON ATHEROSCLER NOS TYPE VESSEL, NATIV 04/05/2016 XIMENA QUINONES DO Ot 496 CHR AIRWAY OBSTRUCT NEC 04/05/2016 JOSHUA CASTILLO MD Ot 311 DEPRESSIVE DISORDER NEC 04/05/2016 JOSHUA CASTILLO MD Ot 401. 9 HYPERTENSION NOS 04/05/2016 JOSHUA CASTILLO MD Ot 414. 00 CORON ATHEROSCLER NOS TYPE VESSEL, NATIV 04/05/2016 JOSHUA CASTILLO MD Ot 428. 0 CONGESTIVE HEART FAILURE NOS 04/05/2016 JOSHUA CASTILLO MD Ot 433. 10 CAROTID ARTERY OCCLUSION W O CEREBRAL IN 04/05/2016 JOSHUA CASTILLO MD Ot 496 CHR AIRWAY OBSTRUCT NEC 04/05/2016 JOSHUA CASTILLO MD Ot 786. 09 RESPIRATORY ABNORM NEC 04/05/2016 Ot 300.00 ANX IETY STATE NOS 04/05/2016 Ot 414.00 COR ON ATHEROSCLER NOS TYPE VESSEL, NATIV 04/05/2016 Ot 496 CHR AI RWAY OBSTRUCT NEC 04/05/2016 Ot V57.89 PRIYANKA ABILITATION PROC NEC 04/05/2016 JOSHUA CASTILLO MD Ot 272. 4 HYPERLIPIDEMIA NEC/NOS 04/05/2016 JOSHUA CASTILLO MD Ot 401. 9 HYPERTENSION NOS 04/05/2016 JOSHUA CASTILLO MD Ot 414. 00 CORON ATHEROSCLER NOS TYPE VESSEL, NATIV 04/05/2016 JOSHUA CASTILLO MD Ot 786. 50 CHEST PAIN NOS 04/05/2016 Ot 272.4 HYPE RLIPIDEMIA NEC/NOS 04/05/2016 Ot 401.9 HYPE RTENSION NOS 04/05/2016 Ot 414.00 COR ON ATHEROSCLER NOS TYPE VESSEL, NATIV 04/05/2016 Ot 428.0 VASHTI ESTIVE HEART FAILURE NOS 04/05/2016 Ot 433.10 CAR OTID ARTERY OCCLUSION W O CEREBRAL IN 04/05/2016 JOSHUA CASTILLO MD Ot 272. 4 HYPERLIPIDEMIA NEC/NOS 04/05/2016 JOSHUA CASTILLO MD Ot 401. 9 HYPERTENSION NOS 04/05/2016 JOSHUA CASTILLO MD Ot 414. 00 CORON ATHEROSCLER NOS TYPE VESSEL, NATIV 04/05/2016 JOSHUA CASTILLO MD Ot 428. 0 CONGESTIVE HEART FAILURE NOS 04/05/2016 JOSHUA CASTILLO MD Ot 433. 10 CAROTID ARTERY OCCLUSION W O CEREBRAL IN 04/05/2016 CATE HERRERA APRN Ot J44.9 CHRONIC OBSTRUCTIVE PULMONARY DISEASE, U 04/05/2016 JING HOLGUIN DO Ot M54.16 RADICULOPATHY, LUMBAR REGION 04/05/2016 YOUNG MCALLISTER Ot E78.2 MIXED HYPERLIPIDEMIA 04/05/2016 YOUNG MCALLISTER Ot I10 ESSENTIAL (PRIMARY) HYPERTENSION 04/05/2016 YOUNG MCALLISTER Ot I25.10 ATHSCL HEART DISEASE OF [place] CORONARY 04/05/2016 JOSHUA CASTILLO MD Ot E78. 5 HYPERLIPIDEMIA, UNSPECIFIED 04/05/2016 JOSHUA CASTILLO MD Ot F41. 9 ANXIETY DISORDER, UNSPECIFIED 04/05/2016 JOSHUA CASTILLO MD Ot I10 ESSENTIAL (PRIMARY) HYPERTENSION 04/05/2016 JOSHUA CASTILLO MD Ot I25. 10 ATHSCL HEART DISEASE OF [place] CORONARY 04/05/2016 JOSHUA CASTILLO MD Ot R07. 89 OTHER CHEST PAIN 04/05/2016 JOSHUA CASTILLO MD Ot Z72. 0 TOBACCO USE 04/05/2016 CATE HERRERA APRN Ot J44.9 CHRONIC OBSTRUCTIVE PULMONARY DISEASE, U 04/05/2016 CATE HERRERA APRN Ot R06.02 SHORTNESS OF BREATH 04/05/2016 CATE HERRERA APRN Ot R06.2 WHEEZING 04/05/2016 CATE HERRERA APRN Ot R09.02 HYPOXEMIA 04/05/2016 CATE HERRERA APRN Ot R91.1 SOLITARY PULMONARY NODULE 04/17/2016 JOSHUA CASTILLO MD Ot E78. 2 MIXED HYPERLIPIDEMIA 04/17/2016 JOSHUA CASTILLO MD Ot F41. 9 ANXIETY DISORDER, UNSPECIFIED 04/17/2016 JOSHUA CASTILLO MD Ot I10 ESSENTIAL (PRIMARY) HYPERTENSION 04/17/2016 JOSHUA CASTILLO MD Ot I25. 10 ATHSCL HEART DISEASE OF [place] CORONARY 04/17/2016 JOSHUA CASTILLO MD Ot R07. 89 OTHER CHEST PAIN 04/17/2016 JOSHUA CASTILLO MD Ot Z72. 0 TOBACCO USE 04/22/2016 JOSHUA CASTILLO MD Ot E78. 2 MIXED HYPERLIPIDEMIA 04/22/2016 JOSHUA CASTILLO MD Ot F41. 9 ANXIETY DISORDER, UNSPECIFIED 04/22/2016 JOSHUA CASTILLO MD Ot I10 ESSENTIAL (PRIMARY) HYPERTENSION 04/22/2016 JOSHUA CASTILLO MD Ot I25. 10 ATHSCL HEART DISEASE OF [place] CORONARY 04/22/2016 JOSHUA CASTILLO MD Ot R07. 89 OTHER CHEST PAIN 04/22/2016 JOSHUA CASTILLO MD Ot Z72. 0 TOBACCO USE 04/22/2016 JOSHUA CASTILLO MD Ot E78. 5 HYPERLIPIDEMIA, UNSPECIFIED 04/22/2016 JOSHUA CASTILLO MD Ot F41. 9 ANXIETY DISORDER, UNSPECIFIED 04/22/2016 JOSHUA CASTILLO MD Ot I10 ESSENTIAL (PRIMARY) HYPERTENSION 04/22/2016 JOSHUA CASTILLO MD Ot I25. 10 ATHSCL HEART DISEASE OF [place] CORONARY 04/22/2016 JOSHUA CASTILLO MD Ot R07. 89 OTHER CHEST PAIN 04/22/2016 JOSHUA CASTILLO MD Ot Z72. 0 TOBACCO USE 04/26/2016 CATE HERRERA APRN Ot J44.9 CHRONIC OBSTRUCTIVE PULMONARY DISEASE, U 04/26/2016 CATE HERRERA WRITER EDITOR Ot R06.02 SHORTNESS OF BREATH 04/26/2016 CATE HERRERA WRITER EDITOR Ot R06.2 WHEEZING 04/26/2016 CATE HERRERA APRN Ot R09.02 HYPOXEMIA 04/26/2016 CATE HERRERA APRN Ot R91.1 SOLITARY PULMONARY NODULE 04/29/2016 JOSHUA CASTILLO MD Ot E78. 5 HYPERLIPIDEMIA, UNSPECIFIED 04/29/2016 JOSHUA CASTILLO MD Ot F41. 9 ANXIETY DISORDER, UNSPECIFIED 04/29/2016 JOSHUA CASTILLO MD Ot I10 ESSENTIAL (PRIMARY) HYPERTENSION 04/29/2016 JOSHUA CASTILLO MD Ot I25. 10 ATHSCL HEART DISEASE OF [place] CORONARY 04/29/2016 JOSHUA CASTILLO MD Ot R07. 89 OTHER CHEST PAIN 04/29/2016 JOSHUA CASTILLO MD Ot Z72. 0 TOBACCO USE 05/06/2016 CATE HERRERA WRITER EDITOR Ot J44.9 CHRONIC OBSTRUCTIVE PULMONARY DISEASE, U 05/06/2016 CATE HERRERA WRITER EDITOR Ot R06.02 SHORTNESS OF BREATH 05/06/2016 CATE HERRERA WRITER EDITOR Ot R06.2 WHEEZING 05/06/2016 CATE HERRERA WRITER EDITOR Ot R09.02 HYPOXEMIA 05/06/2016 CATE HERRERA WRITER EDITOR Ot R91.1 SOLITARY PULMONARY NODULE 05/08/2016 JOSHUA CASTILLO MD Ot E78. 2 MIXED HYPERLIPIDEMIA 05/08/2016 JOSHUA CASTILLO MD Ot F41. 9 ANXIETY DISORDER, UNSPECIFIED 05/08/2016 JOSHUA CASTILLO MD Ot I10 ESSENTIAL (PRIMARY) HYPERTENSION 05/08/2016 JOSHUA CASTILLO MD Ot I25. 10 ATHSCL HEART DISEASE OF [place] CORONARY 05/08/2016 JOSHUA CASTILLO MD Ot R07. 89 OTHER CHEST PAIN 05/08/2016 JOSHUA CASTILLO MD Ot Z72. 0 TOBACCO USE 05/15/2016 JOSHUA CASTILLO MD Ot E78. 2 MIXED HYPERLIPIDEMIA 05/15/2016 JOSHUA CASTILLO MD Ot F41. 9 ANXIETY DISORDER, UNSPECIFIED 05/15/2016 JOSHUA CASTILLO MD Ot I10 ESSENTIAL (PRIMARY) HYPERTENSION 05/15/2016 JOSHUA CASTILLO MD Ot I25. 10 ATHSCL HEART DISEASE OF [place] CORONARY 05/15/2016 JOSHUA CASTILLO MD Ot R07. 89 OTHER CHEST PAIN 05/15/2016 JOSHUA CASTILLO MD Ot Z72. 0 TOBACCO USE 07/25/2016 OUMAR POWERS DO Ot E78.5 HYPERLIPIDEMIA, UNSPECIFIED 07/25/2016 OUMAR POWERS DO Ot 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, CIGARETTES, UNCOMPL 07/25/2016 NIKKY POWERS DOI Ot F41.9 ANXIETY DISORDER, UNSPECIFIED 07/25/2016 PRIYA DO OUMAR Ot I10 ESSENTIAL (PRIMARY) HYPERTENSION 07/25/2016 POWERSVIKAS BURDICK OUMAR Ot I25.10 ATHSCL HEART DISEASE OF [place] CORONARY 07/25/2016 PRIYA DO OUMAR Ot I73.9 PERIPHERAL VASCULAR DISEASE, UNSPECIFIED 07/25/2016 POWERSVIKAS BURDICK OUMAR Ot J44.1 CHRONIC OBSTRUCTIVE PULMONARY DISEASE W 07/25/2016 POWERS DO OUMAR Ot K21.9 GASTRO-ESOPHAGEAL REFLUX DISEASE WITHOUT 07/25/2016 POWERS DO OUMAR Ot R07.9 CHEST PAIN, UNSPECIFIED 07/25/2016 POWERS DO OUMAR Ot Z95.1 PRESENCE OF AORTOCORONARY BYPASS GRAFT 07/25/2016 POWERSVIKAS BURDICK OUMAR Ot Z95.5 PRESENCE OF CORONARY ANGIOPLASTY IMPLANT 07/25/2016 POWERSVIKAS BURDICK OUMAR Ot Z95.82 0 PERIPHERAL VASCULAR ANGIOPLASTY STATUS W 07/25/2016 POWERSVIKAS BURDICK OUMAR Ot Z99.81 DEPENDENCE ON SUPPLEMENTAL OXYGEN 08/27/2016 Ot 272.4 HYPE RLIPIDEMIA NEC/NOS 08/27/2016 Ot 786.05 KINGSLEY RTNESS OF BREATH 08/27/2016 Ot 789.01 ABD OMINAL PAIN, RIGHT UPPER QUADRANT 08/27/2016 Ot V72.84 EXA M PRE- OPERATIVE NOS 08/27/2016 Ot 272.4 HYPE RLIPIDEMIA NEC/NOS 08/27/2016 Ot 496 CHR AI RWAY OBSTRUCT NEC 08/27/2016 Ot 786.09 RES PIRATORY ABNORM NEC 08/27/2016 Ot 496 CHR AI RWAY OBSTRUCT NEC 08/27/2016 Ot 519.11 ACU TE BRONCHOSPASM 08/27/2016 Ot 786.2 COUGH 08/27/2016 JOSHUA CASTILLO MD Ot 414. 00 CORON ATHEROSCLER NOS TYPE VESSEL, NATIV 08/27/2016 JOSHUA CASTILLO MD Ot 786. 50 CHEST PAIN NOS 08/27/2016 XIMENA QUINONES DO Ot 300. 00 ANXIETY STATE NOS 08/27/2016 XIMENA QUINONES DO Ot 414. 00 CORON ATHEROSCLER NOS TYPE VESSEL, NATIV 08/27/2016 XIMENA QUINONES DO Ot 496 CHR AIRWAY OBSTRUCT NEC 08/27/2016 JOSHUA CASTILLO MD Ot 311 DEPRESSIVE DISORDER NEC 08/27/2016 JOSHUA CASTILLO MD Ot 401. 9 HYPERTENSION NOS 08/27/2016 JOSHUA CASTILLO MD Ot 414. 00 CORON ATHEROSCLER NOS TYPE VESSEL, NATIV 08/27/2016 JOSHUA CASTILLO MD Ot 428. 0 CONGESTIVE HEART FAILURE NOS 08/27/2016 JOSHUA CASTILLO MD Ot 433. 10 CAROTID ARTERY OCCLUSION W O CEREBRAL IN 08/27/2016 JOSHUA CASTILLO MD Ot 496 CHR AIRWAY OBSTRUCT NEC 08/27/2016 JOSHUA CASTILLO MD Ot 786. 09 RESPIRATORY ABNORM NEC 08/27/2016 Ot 300.00 ANX IETY STATE NOS 08/27/2016 Ot 414.00 COR ON ATHEROSCLER NOS TYPE VESSEL, NATIV 08/27/2016 Ot 496 CHR AI RWAY OBSTRUCT NEC 08/27/2016 Ot V57.89 PRIYANKA ABILITATION PROC NEC 08/27/2016 JOSHUA CASTILLO MD Ot 272. 4 HYPERLIPIDEMIA NEC/NOS 08/27/2016 JOSHUA CASTILLO MD Ot 401. 9 HYPERTENSION NOS 08/27/2016 JOSHUA CASTILLO MD Ot 414. 00 CORON ATHEROSCLER NOS TYPE VESSEL, NATIV 08/27/2016 JOSHUA CASTILLO MD Ot 786. 50 CHEST PAIN NOS 08/27/2016 Ot 272.4 HYPE RLIPIDEMIA NEC/NOS 08/27/2016 Ot 401.9 HYPE RTENSION NOS 08/27/2016 Ot 414.00 COR ON ATHEROSCLER NOS TYPE VESSEL, NATIV 08/27/2016 Ot 428.0 VASHTI ESTIVE HEART FAILURE NOS 08/27/2016 Ot 433.10 CAR OTID ARTERY OCCLUSION W O CEREBRAL IN 08/27/2016 JOSHUA CASTILLO MD Ot 272. 4 HYPERLIPIDEMIA NEC/NOS 08/27/2016 JOSHUA CASTILLO MD Ot 401. 9 HYPERTENSION NOS 08/27/2016 JOSHUA CASTILLO MD Ot 414. 00 CORON ATHEROSCLER NOS TYPE VESSEL, NATIV 08/27/2016 JOSHUA CASTILLO MD Ot 428. 0 CONGESTIVE HEART FAILURE NOS 08/27/2016 JOSHUA CASTILLO MD Ot 433. 10 CAROTID ARTERY OCCLUSION W O CEREBRAL IN 08/27/2016 CATE HERRERA APRN Ot J44.9 CHRONIC OBSTRUCTIVE PULMONARY DISEASE, U 08/27/2016 EZIO BURDICK JING Tavares Ot M54.16 RADICULOPATHY, LUMBAR REGION 08/27/2016 YOUNG MCALLISTER Ot E78.2 MIXED HYPERLIPIDEMIA 08/27/2016 YOUNG MCALLISTER Ot I10 ESSENTIAL (PRIMARY) HYPERTENSION 08/27/2016 YOUNG MCALLISTER Ot I25.10 ATHSCL HEART DISEASE OF [place] CORONARY 08/27/2016 JOSHUA CASTILLO MD Ot E78. 2 MIXED HYPERLIPIDEMIA 08/27/2016 JOSHUA CASTILLO MD Ot F41. 9 ANXIETY DISORDER, UNSPECIFIED 08/27/2016 JOSHUA CASTILLO MD Ot I10 ESSENTIAL (PRIMARY) HYPERTENSION 08/27/2016 JOSHUA CASTILLO MD Ot I25. 10 ATHSCL HEART DISEASE OF [place] CORONARY 08/27/2016 JOSHUA CASTILLO MD Ot R07. 89 OTHER CHEST PAIN 08/27/2016 JOSHUA CASTILLO MD Ot Z72. 0 TOBACCO USE 08/27/2016 JOSHUA CASTILLO MD Ot E78. 5 HYPERLIPIDEMIA, UNSPECIFIED 08/27/2016 JOSHUA CASTILLO MD Ot F41. 9 ANXIETY DISORDER, UNSPECIFIED 08/27/2016 JOSHUA CASTILLO MD Ot I10 ESSENTIAL (PRIMARY) HYPERTENSION 08/27/2016 JOSHUA CASTILLO MD Ot I25. 10 ATHSCL HEART DISEASE OF [place] CORONARY 08/27/2016 JOSHUA CASTILLO MD Ot R07. 89 OTHER CHEST PAIN 08/27/2016 JOSHUA CASTILLO MD Ot Z72. 0 TOBACCO USE 08/27/2016 CATE HERRERA APRN Ot J44.9 CHRONIC OBSTRUCTIVE PULMONARY DISEASE, U 08/27/2016 CATE HERRERA APRN Ot R06.02 SHORTNESS OF BREATH 08/27/2016 CATE HERRERA APRN Ot R06.2 WHEEZING 08/27/2016 CATE HERRERA APRN Ot R09.02 HYPOXEMIA 08/27/2016 CATE HERRERA APRN Ot R91.1 SOLITARY PULMONARY NODULE 08/28/2016 CATE HERRERA APRN Ot J44.0 CHRONIC OBSTRUCTIVE PULMON DISEASE W ACU 08/28/2016 CATE HERRERA APRN Ot R06.02 SHORTNESS OF BREATH 08/28/2016 CATE HERRERA WRITER EDITOR Ot R06.2 WHEEZING 08/28/2016 CATE HERRERA WRITER EDITOR Ot R09.02 HYPOXEMIA 08/28/2016 CATE HERRERA WRITER EDITOR Ot R91.1 SOLITARY PULMONARY NODULE 08/28/2016 CATE HERRERA WRITER EDITOR Ot Z72.0 TOBACCO USE 09/18/2016 CATE HERRERA WRITER EDITOR Ot J44.0 CHRONIC OBSTRUCTIVE PULMON DISEASE W ACU 09/18/2016 CATE HERRERA WRITER EDITOR Ot R06.02 SHORTNESS OF BREATH 09/18/2016 CATE HERRERA WRITER EDITOR Ot R06.2 WHEEZING 09/18/2016 CATE HERRERA WRITER EDITOR Ot R09.02 HYPOXEMIA 09/18/2016 CATE HERRERA WRITER EDITOR Ot R91.1 SOLITARY PULMONARY NODULE 09/18/2016 CATE HERRERA WRITER EDITOR Ot Z72.0 TOBACCO USE 09/26/2016 CATE HERRERA WRITER EDITOR Ot J44.0 CHRONIC OBSTRUCTIVE PULMON DISEASE W ACU 09/26/2016 CATE HERRERA WRITER EDITOR Ot R06.02 SHORTNESS OF BREATH 09/26/2016 CATE HERRERA WRITER EDITOR Ot R06.2 WHEEZING 09/26/2016 CATE HERRERA WRITER EDITOR Ot R09.02 HYPOXEMIA 09/26/2016 CATE HERRERA WRITER EDITOR Ot R91.1 SOLITARY PULMONARY NODULE 09/26/2016 CATE HERRERA WRITER EDITOR Ot Z72.0 TOBACCO USE 10/13/2016 Ot 272.4 HYPE RLIPIDEMIA NEC/NOS 10/13/2016 Ot 786.05 KINGSLEY RTNESS OF BREATH 10/13/2016 Ot 789.01 ABD OMINAL PAIN, RIGHT UPPER QUADRANT 10/13/2016 Ot V72.84 EXA M PRE- OPERATIVE NOS 10/13/2016 Ot 272.4 HYPE RLIPIDEMIA NEC/NOS 10/13/2016 Ot 496 CHR AI RWAY OBSTRUCT NEC 10/13/2016 Ot 786.09 RES PIRATORY ABNORM NEC 10/13/2016 Ot 496 CHR AI RWAY OBSTRUCT NEC 10/13/2016 Ot 519.11 ACU TE BRONCHOSPASM 10/13/2016 Ot 786.2 COUGH 10/13/2016 JONATHAN CRANE, JOSHUA Rausch Ot 414. 00 CORON ATHEROSCLER NOS TYPE VESSEL, NATIV 10/13/2016 JOSHUA CASTILLO MD Ot 786. 50 CHEST PAIN NOS 10/13/2016 XIMENA QUINONES DO Ot 300. 00 ANXIETY STATE NOS 10/13/2016 JONI BURDICK XIMENA Chapin Ot 414. 00 CORON ATHEROSCLER NOS TYPE VESSEL, NATIV 10/13/2016 JONI BURDICK XIMENA Chapin Ot 496 CHR AIRWAY OBSTRUCT NEC 10/13/2016 JOSHUA CASTILLO MD Ot 311 DEPRESSIVE DISORDER NEC 10/13/2016 JOSHUA CASTILLO MD Ot 401. 9 HYPERTENSION NOS 10/13/2016 JOSHUA CASTILLO MD Ot 414. 00 CORON ATHEROSCLER NOS TYPE VESSEL, NATIV 10/13/2016 JOSHUA CASTILLO MD Ot 428. 0 CONGESTIVE HEART FAILURE NOS 10/13/2016 JOSHUA CASTILLO MD Ot 433. 10 CAROTID ARTERY OCCLUSION W O CEREBRAL IN 10/13/2016 JOSHUA CASTILLO MD Ot 496 CHR AIRWAY OBSTRUCT NEC 10/13/2016 JOSHUA CASTILLO MD Ot 786. 09 RESPIRATORY ABNORM NEC 10/13/2016 Ot 300.00 ANX IETY STATE NOS 10/13/2016 Ot 414.00 COR ON ATHEROSCLER NOS TYPE VESSEL, NATIV 10/13/2016 Ot 496 CHR AI RWAY OBSTRUCT NEC 10/13/2016 Ot V57.89 PRIYANKA ABILITATION PROC NEC 10/13/2016 JOSHUA CASTILLO MD Ot 272. 4 HYPERLIPIDEMIA NEC/NOS 10/13/2016 JOSHUA CASTILLO MD Ot 401. 9 HYPERTENSION NOS 10/13/2016 JOSHUA CASTILLO MD Ot 414. 00 CORON ATHEROSCLER NOS TYPE VESSEL, NATIV 10/13/2016 JOSHUA CASTILLO MD Ot 786. 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 4 HYPERLIPIDEMIA NEC/NOS 10/13/2016 JOSHUA CASTILLO MD Ot 401. 9 HYPERTENSION NOS 10/13/2016 JOSHUA CASTILLO MD Ot 414. 00 CORON ATHEROSCLER NOS TYPE VESSEL, NATIV 10/13/2016 JOSHUA CASTILOL MD Ot 428. 0 CONGESTIVE HEART FAILURE NOS 10/13/2016 JOSHUA CASTILLO MD Ot 433. 10 CAROTID ARTERY OCCLUSION W O CEREBRAL IN 10/13/2016 CATE HERRERA APRN Ot J44.9 CHRONIC OBSTRUCTIVE PULMONARY DISEASE, U 10/13/2016 EZIO DO JING Tavares Ot M54.16 RADICULOPATHY, LUMBAR REGION 10/13/2016 YOUNG MCALLISTER Ot E78.2 MIXED HYPERLIPIDEMIA 10/13/2016 YOUNG MCALLISTER Ot I10 ESSENTIAL (PRIMARY) HYPERTENSION 10/13/2016 YOUNG MCALLISTER Ot I25.10 ATHSCL HEART DISEASE OF [place] CORONARY 10/13/2016 JOSHUA CASTILLO MD Ot E78. 2 MIXED HYPERLIPIDEMIA 10/13/2016 JOSHUA CASTILLO MD Ot F41. 9 ANXIETY DISORDER, UNSPECIFIED 10/13/2016 JOSHUA CASTILLO MD Ot I10 ESSENTIAL (PRIMARY) HYPERTENSION 10/13/2016 JOSHUA CASTILLO MD Ot I25. 10 ATHSCL HEART DISEASE OF [place] CORONARY 10/13/2016 JOSHUA CASTILLO MD Ot R07. 89 OTHER CHEST PAIN 10/13/2016 JOSHUA CASTILLO MD Ot Z72. 0 TOBACCO USE 10/13/2016 JOSHUA CASTILLO MD Ot E78. 5 HYPERLIPIDEMIA, UNSPECIFIED 10/13/2016 JOSHUA CASTILLO MD Ot F41. 9 ANXIETY DISORDER, UNSPECIFIED 10/13/2016 JOSHUA CASTILLO MD Ot I10 ESSENTIAL (PRIMARY) HYPERTENSION 10/13/2016 JOSHUA CASTILLO MD Ot I25. 10 ATHSCL HEART DISEASE OF [place] CORONARY 10/13/2016 JOSHUA CASTILLO MD Ot R07. 89 OTHER CHEST PAIN 10/13/2016 JOSHUA CASTILLO MD Ot Z72. 0 TOBACCO USE 10/13/2016 CATE HERRERA APRN Ot J44.9 CHRONIC OBSTRUCTIVE PULMONARY DISEASE, U 10/13/2016 CATE HERRERA APRN Ot R06.02 SHORTNESS OF BREATH 10/13/2016 CATE HERRERA APRN Ot R06.2 WHEEZING 10/13/2016 CATE HERRERA APRN Ot R09.02 HYPOXEMIA 10/13/2016 CATE HERRERA WRITER EDITOR Ot R91.1 SOLITARY PULMONARY NODULE 10/13/2016 CATE HERRERA WRITER EDITOR Ot J44.0 CHRONIC OBSTRUCTIVE PULMON DISEASE W ACU 10/13/2016 CATE HERRERA WRITER EDITOR Ot R06.02 SHORTNESS OF BREATH 10/13/2016 CATE HERRERA WRITER EDITOR Ot R06.2 WHEEZING 10/13/2016 CATE HERRERA WRITER EDITOR Ot R09.02 HYPOXEMIA 10/13/2016 CATE HERRERA WRITER EDITOR Ot R91.1 SOLITARY PULMONARY NODULE 10/13/2016 CATE HERRERA APRN Ot Z72.0 TOBACCO USE 10/13/2016 HERBERT ALANIS MD Ot D69.6 THROMBOCYTOPENIA, UNSPECIFIED 10/13/2016 HERBERT ALANIS MD Ot E78.5 HYPERLIPIDEMIA, UNSPECIFIED 10/13/2016 HERBERT ALANIS MD Ot F17.210 NICOTINE DEPENDENCE, CIGARETTES, UNCOMPL 10/13/2016 HERBERT ALANIS MD Ot F41.9 ANXIETY DISORDER, UNSPECIFIED 10/13/2016 HERBERT ALANIS MD Ot I11.0 HYPERTENSIVE HEART DISEASE WITH HEART FA 10/13/2016 HERBERT ALANIS MD Ot I25.110 ATHSCL HEART DISEASE OF [place] COR ART W 10/13/2016 HERBERT ALANIS MD Ot I25.5 ISCHEMIC CARDIOMYOPATHY 10/13/2016 HERBERT ALANIS MD, Ot 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 10/13/2016 HERBERT ALANIS MD Ot I50.22 CHRONIC SYSTOLIC (CONGESTIVE) HEART FAIL 10/13/2016 HERBERT ALANIS MD Ot I73.9 PERIPHERAL VASCULAR DISEASE, UNSPECIFIED 10/13/2016 HERBERT ALANIS MD, Ot J44.1 CHRONIC OBSTRUCTIVE PULMONARY DISEASE W 10/13/2016 HERBERT ALANIS MD Ot K21.9 GASTRO-ESOPHAGEAL REFLUX DISEASE WITHOUT 10/13/2016 HERBERT ALANIS MD Ot Z86.718 PERSONAL HISTORY OF OTHER VENOUS THROMBO 10/13/2016 HERBERT ALANIS MD Ot Z95.1 PRESENCE OF AORTOCORONARY BYPASS GRAFT 10/13/2016 ZEKE CRANE, HERBERT Chapin Ot Z95.5 PRESENCE OF CORONARY ANGIOPLASTY IMPLANT 10/13/2016 ZEKE CRANE, HERBERT Chapin Ot Z99.81 DEPENDENCE ON SUPPLEMENTAL OXYGEN 01/10/2017 Promise Moore A 807.01 CLOSED FRACTURE OF ONE RIB 01/10/2017 Promise Moore W E888.1 FALL RESULTING IN STRIKING AGAINST OTHER OBJECT 01/10/2017 Promise Moore A S22.32XA FRACTURE OF ONE RIB, LEFT SIDE, INIT FOR CLOS FX 01/10/2017 Promise Moore W W01.198A FALL SAME LEV FROM SLIP/TRIP W STRIKE AGNST OTH OBJECT, INIT 02/12/2017 LILIANA CELSO R GLOBAL ACCOUNT DIRECTOR-C Ot 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 03/23/2017 OUMAR POWERS DO Ot 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, CIGARETTES, UNCOMPL 03/23/2017 OUMAR POWERS DO Ot I10 ESSENTIAL (PRIMARY) HYPERTENSION 03/23/2017 OUMAR POWERS DO Ot I25.2 OLD MYOCARDIAL INFARCTION 03/23/2017 OUMAR POWERS DO Ot I73.9 PERIPHERAL VASCULAR DISEASE, UNSPECIFIED 03/23/2017 OUMAR POWERS DO Ot J44.9 CHRONIC OBSTRUCTIVE PULMONARY DISEASE, U 03/23/2017 OUMAR POWERS DO Ot R07.89 OTHER CHEST PAIN 03/23/2017 OUMAR POWERS DO Ot Z23 ENCOUNTER FOR IMMUNIZATION 03/23/2017 OUMAR POWERS DO Ot Z79.02 HALFWAY (CURRENT) USE OF ANTITHROMBOTI 03/23/2017 OUMAR POWERS DO Ot Z79.89 9 OTHER NURSES ASSISTANT (CURRENT) DRUG THERAPY 03/23/2017 OUMAR POWERS DO Ot Z86.71 8 PERSONAL HISTORY OF OTHER VENOUS THROMBO 03/23/2017 OUMAR POWERS DO Ot Z95.1 PRESENCE OF AORTOCORONARY BYPASS GRAFT 03/23/2017 OUMAR POWERS DO Ot Z95.5 PRESENCE OF CORONARY ANGIOPLASTY IMPLANT 03/23/2017 OUMAR POWERS DO Ot Z99.81 DEPENDENCE ON SUPPLEMENTAL OXYGEN 03/23/2017 OUMAR POWERS DO Ot 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, CIGARETTES, UNCOMPL 03/23/2017 OUMAR POWERS DO Ot I10 ESSENTIAL (PRIMARY) HYPERTENSION 03/23/2017 OUMAR POWERS DO Ot I25.2 OLD MYOCARDIAL INFARCTION 03/23/2017 OUMAR POWERS DO Ot I73.9 PERIPHERAL VASCULAR DISEASE, UNSPECIFIED 03/23/2017 OUMAR POWERS DO Ot J44.9 CHRONIC OBSTRUCTIVE PULMONARY DISEASE, U 03/23/2017 OUMAR POWERS DO Ot R07.89 OTHER CHEST PAIN 03/23/2017 OUMAR POWERS DO Ot Z79.02 NURSES ASSISTANT (CURRENT) USE OF ANTITHROMBOTI 03/23/2017 OUMAR POWERS DO Ot Z79.89 9 OTHER HALFWAY (CURRENT) DRUG THERAPY 03/23/2017 OUMAR POWERS DO Ot Z86.71 8 PERSONAL HISTORY OF OTHER VENOUS THROMBO 03/23/2017 OMUAR POWERS DO Ot Z95.1 PRESENCE OF AORTOCORONARY BYPASS GRAFT 03/23/2017 OUMAR POWERS DO Ot Z95.5 PRESENCE OF CORONARY ANGIOPLASTY IMPLANT 03/23/2017 OUMAR POWERS DO Ot Z99.81 DEPENDENCE ON SUPPLEMENTAL OXYGEN 05/06/2017 MARTIN GRULLON MD Ot A39 .0 MENINGOCOCCAL MENINGITIS 05/06/2017 MARTIN GRULLON MD Ot E78 .5 HYPERLIPIDEMIA, UNSPECIFIED 05/06/2017 MARTIN GRULLON MD Ot F17.210 NICOTINE DEPENDENCE, CIGARETTES, UNCOMPL 05/06/2017 MARTIN GRULLON MD Ot F20 .9 SCHIZOPHRENIA, UNSPECIFIED 05/06/2017 MARTIN GRULLON MD Ot F32 .9 MAJOR DEPRESSIVE DISORDER, SINGLE EPISOD 05/06/2017 MARTIN GRULLON MD Ot I10 ESSENTIAL (PRIMARY) HYPERTENSION 05/06/2017 MARTIN GRULLON MD Ot I25.10 ATHSCL HEART DISEASE OF [place] CORONARY 05/06/2017 MARTIN GRULLON MD Ot I25 .2 OLD MYOCARDIAL INFARCTION 05/06/2017 MARTIN GRULLON MD Ot I73 .9 PERIPHERAL VASCULAR DISEASE, UNSPECIFIED 05/06/2017 MARTIN GRULLON MD Ot J39 .8 OTHER SPECIFIED DISEASES OF UPPER RESPIR 05/06/2017 MARTIN GRULLON MD Ot J44 .1 CHRONIC OBSTRUCTIVE PULMONARY DISEASE W 05/06/2017 MARTIN GRULLON MD Ot K21 .9 GASTRO-ESOPHAGEAL REFLUX DISEASE WITHOUT 05/06/2017 AMRTIN GRULLON MD Ot R09.02 HYPOXEMIA 05/06/2017 MARTIN GRULLON MD Ot R20 .0 ANESTHESIA OF SKIN 05/06/2017 MARTIN GRULLON MD Ot Z86.718 PERSONAL HISTORY OF OTHER VENOUS THROMBO 05/06/2017 MARTIN GRULLON MD Ot Z95 .1 PRESENCE OF AORTOCORONARY BYPASS GRAFT 05/06/2017 MARTIN GRULLON MD Ot Z95 .5 PRESENCE OF CORONARY ANGIOPLASTY IMPLANT 05/06/2017 MARTIN GRULLON MD Ot Z99.81 DEPENDENCE ON SUPPLEMENTAL OXYGEN 05/06/2017 Ot 300.00 ANX IETY STATE NOS 05/06/2017 Ot 414.00 COR ON ATHEROSCLER NOS TYPE VESSEL, NATIV 05/06/2017 Ot 496 CHR AI RWAY OBSTRUCT NEC 05/06/2017 Ot V57.89 PRIYANKA ABILITATION PROC NEC 05/08/2017 Ot 300.00 ANX IETY STATE NOS 05/08/2017 Ot 414.00 COR ON ATHEROSCLER NOS TYPE VESSEL, NATIV 05/08/2017 Ot 496 CHR AI RWAY OBSTRUCT NEC 05/08/2017 Ot V57.89 PRIYANKA ABILITATION PROC NEC 05/09/2017 OUMAR POWERS DO Ot A39.0 MENINGOCOCCAL MENINGITIS 05/09/2017 OUMAR POWERS DO Ot E78.5 HYPERLIPIDEMIA, UNSPECIFIED 05/09/2017 OUMAR POWERS DO Ot 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, CIGARETTES, UNCOMPL 05/09/2017 OUMAR POWERS DO Ot F20.9 SCHIZOPHRENIA, UNSPECIFIED 05/09/2017 OUMAR POWERS DO Ot F32.9 MAJOR DEPRESSIVE DISORDER, SINGLE EPISOD 05/09/2017 OUMAR POWERS DO Ot I10 ESSENTIAL (PRIMARY) HYPERTENSION 05/09/2017 OUMAR POWERS DO Ot I25.10 ATHSCL HEART DISEASE OF [place] CORONARY 05/09/2017 OUMAR POWERS DO Ot I25.2 OLD MYOCARDIAL INFARCTION 05/09/2017 OUMAR POWERS DO Ot I73.9 PERIPHERAL VASCULAR DISEASE, UNSPECIFIED 05/09/2017 OUMAR POWERS DO Ot J44.9 CHRONIC OBSTRUCTIVE PULMONARY DISEASE, U 05/09/2017 OUMAR POWERS DO Ot K21.9 GASTRO-ESOPHAGEAL REFLUX DISEASE WITHOUT 05/09/2017 OUMAR POWERS DO Ot Z86.71 8 PERSONAL HISTORY OF OTHER VENOUS THROMBO 05/09/2017 OUMAR POWERS DO Ot Z95.1 PRESENCE OF AORTOCORONARY BYPASS GRAFT 05/09/2017 OUMAR POWERS DO Ot Z95.5 PRESENCE OF CORONARY ANGIOPLASTY IMPLANT 05/12/2017 OUMAR POWERS DO Ot A39.0 MENINGOCOCCAL MENINGITIS 05/12/2017 OUMAR POWERS DO Ot A39.89 OTHER MENINGOCOCCAL INFECTIONS 05/12/2017 OUMAR POWERS DO Ot E78.00 PURE HYPERCHOLESTEROLEMIA, UNSPECIFIED 05/12/2017 OUMAR POWERS DO Ot E78.5 HYPERLIPIDEMIA, UNSPECIFIED 05/12/2017 OUMAR POWERS DO Ot 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, CIGARETTES, UNCOMPL 05/12/2017 OUMAR POWERS DO Ot F20.9 SCHIZOPHRENIA, UNSPECIFIED 05/12/2017 OUMAR POWERS DO Ot F32.9 MAJOR DEPRESSIVE DISORDER, SINGLE EPISOD 05/12/2017 OUMAR POWERS DO Ot G47.9 SLEEP DISORDER, UNSPECIFIED 05/12/2017 OUMAR POWERS DO Ot I10 ESSENTIAL (PRIMARY) HYPERTENSION 05/12/2017 OUMAR POWERS DO Ot I25.10 ATHSCL HEART DISEASE OF [place] CORONARY 05/12/2017 OUMAR POWERS DO Ot I25.2 OLD MYOCARDIAL INFARCTION 05/12/2017 OUMAR POWERS DO Ot I73.9 PERIPHERAL VASCULAR DISEASE, UNSPECIFIED 05/12/2017 OUMAR POWERS DO Ot J20.8 ACUTE BRONCHITIS DUE TO OTHER SPECIFIED 05/12/2017 OUMAR POWERS DO Ot J44.0 CHRONIC OBSTRUCTIVE PULMON DISEASE W ACU 05/12/2017 OUMAR POWERS DO Ot J44.9 CHRONIC OBSTRUCTIVE PULMONARY DISEASE, U 05/12/2017 OUMAR POWERS DO Ot K21.9 GASTRO-ESOPHAGEAL REFLUX DISEASE WITHOUT 05/12/2017 OUMAR POEWRS DO Ot M19.91 PRIMARY OSTEOARTHRITIS, UNSPECIFIED SITE 05/12/2017 OUMAR POWERS DO Ot R29.6 REPEATED FALLS 05/12/2017 OUMAR POWERS DO Ot Z86.71 8 PERSONAL HISTORY OF OTHER VENOUS THROMBO 05/12/2017 OUMAR POWERS DO Ot Z87.11 PERSONAL HISTORY OF PEPTIC ULCER DISEASE 05/12/2017 OUMAR POWERS DO Ot Z91.81 HISTORY OF FALLING 05/12/2017 PRIYA BURDICK OUMAR Ot Z95.1 PRESENCE OF AORTOCORONARY BYPASS GRAFT 05/12/2017 OUMAR POWERS DO Ot Z95.5 PRESENCE OF CORONARY ANGIOPLASTY IMPLANT 05/12/2017 OUMAR POWERS DO Ot Z95.82 8 PRESENCE OF OTHER VASCULAR IMPLANTS AND 05/20/2017 W 036.9 MENI NGOCOCCAL INFECTION, UNSPECIFIED 05/20/2017 W 995.1 ETHEL [place] EDEMA, NOT ELSEWHERE CLASSIFIED 05/20/2017 W A39.9 MENI NGOCOCCAL INFECTION, UNSPECIFIED 05/20/2017 W T78.3 ETHEL [place] EDEMA 06/05/2017 JOSHUA CASTILLO MD Ot E78. 2 MIXED HYPERLIPIDEMIA 06/05/2017 JOSHUA CASTILLO MD Ot I11. 0 HYPERTENSIVE HEART DISEASE WITH HEART FA 06/05/2017 JOSHUA CASTILLO MD Ot I25. 10 ATHSCL HEART DISEASE OF [place] CORONARY 06/05/2017 JOSHUA CASTILLO MD Ot I50. 9 HEART FAILURE, UNSPECIFIED 06/13/2017 Juan Luis 272.4 OTHER AND UNSPECIFIED HYPERLIPIDEMIA 06/13/2017 Juan Luis 401.0 MALIGNANT ESSENTIAL HYPERTENSION 06/13/2017 Juan Luis 414.01 CORONARY ATHEROSCLEROSIS OF [place] CORONARY ARTERY 06/13/2017 Juan Luis 491.20 OBSTRUCTIVE CHRONIC BRONCHITIS, WITHOUT 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 06/13/2017 Juan Luis 786.5 06/13/2017 Juan Luis E78.5 HYPERLIPIDEMIA, UNSPECIFIED 06/13/2017 Juan Luis I10 ESSENTIAL (PRIMARY) HYPERTENSION 06/13/2017 Juan Luis I25.10 ATHSCL HEART DISEASE OF [place] CORONARY ARTERY W/O ANG PCTRS 06/13/2017 Juan Luis J44.9 CHRONIC OBSTRUCTIVE PULMONARY DISEASE, UNSPECIFIED 06/13/2017 Juan Luis R07.89 OTHER CHEST PAIN 06/17/2017 JOSHUA CASTILLO MD Ot E78. 2 MIXED HYPERLIPIDEMIA 06/17/2017 JOSHUA CASTILLO MD Ot I11. 0 HYPERTENSIVE HEART DISEASE WITH HEART FA 06/17/2017 JOSHUA CASTILLO MD Ot I25. 10 ATHSCL HEART DISEASE OF [place] CORONARY 06/17/2017 JOSHUA CASTILLO MD Ot I50. 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 2 MIXED HYPERLIPIDEMIA 06/26/2017 JOSHUA CASTILLO MD Ot I11. 0 HYPERTENSIVE HEART DISEASE WITH HEART FA 06/26/2017 JOSHUA CASTILLO MD Ot I25. 10 ATHSCL HEART DISEASE OF [place] CORONARY 06/26/2017 JOSHUA CASTILLO MD Ot I50. 9 HEART FAILURE, UNSPECIFIED 07/08/2017 JOSHUA CASTILLO MD Ot E78. 2 MIXED HYPERLIPIDEMIA 07/08/2017 JOSHUA CASTILLO MD Ot I11. 0 HYPERTENSIVE HEART DISEASE WITH HEART FA 07/08/2017 JOSHUA CASTILLO MD Ot I25. 10 ATHSCL HEART DISEASE OF [place] CORONARY 07/08/2017 JOSHUA CASTILLO MD Ot I50. 9 HEART FAILURE, UNSPECIFIED 07/08/2017 JOSHUA CASTILLO MD Ot E78. 2 MIXED HYPERLIPIDEMIA 07/08/2017 JOSHUA CASTILLO MD Ot I11. 0 HYPERTENSIVE HEART DISEASE WITH HEART FA 07/08/2017 JOSHUA CASTILLO MD Ot I25. 10 ATHSCL HEART DISEASE OF [place] CORONARY 07/08/2017 JOSHUA CASTILOL MD Ot I50. 9 HEART FAILURE, UNSPECIFIED 07/16/2017 W 461.9 ACUT E SINUSITIS, UNSPECIFIED 07/16/2017 W 491.21 OBS TRUCTIVE CHRONIC BRONCHITIS WITH (ACUTE) 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 07/16/2017 W J01.90 ACU TE SINUSITIS, UNSPECIFIED 07/16/2017 W J44.1 MAINTENANCE CONSTRUCTION HELPER JIMMIE OBSTRUCTIVE PULMONARY DISEASE WITH (ACUTE) 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 07/18/2017 JOSHUA CASTILLO MD Ot E78. 2 MIXED HYPERLIPIDEMIA 07/18/2017 JOSHUA CASTILLO MD Ot I11. 0 HYPERTENSIVE HEART DISEASE WITH HEART FA 07/18/2017 JOSHUA CASTILLO MD Ot I25. 10 ATHSCL HEART DISEASE OF [place] CORONARY 07/18/2017 JOSHUA CASTILLO MD Ot I50. 9 HEART FAILURE, UNSPECIFIED 07/20/2017 Juan Luis 272.4 OTHER AND UNSPECIFIED HYPERLIPIDEMIA 07/20/2017 Juan Luis 401.0 MALIGNANT ESSENTIAL HYPERTENSION 07/20/2017 Juan Luis 414.01 CORONARY ATHEROSCLEROSIS OF [place] CORONARY ARTERY 07/20/2017 Juan Luis 491.20 07/20/2017 Juan Luis 786.5 CHEST PAIN 07/20/2017 Juan Luis E78.5 HYPERLIPIDEMIA, UNSPECIFIED 07/20/2017 Juan Luis I10 ESSENTIAL (PRIMARY) HYPERTENSION 07/20/2017 Juan Luis I25.10 ATHSCL HEART DISEASE OF [place] CORONARY ARTERY W/O ANG PCTRS 07/20/2017 Juan Luis J44.9 CHRONIC OBSTRUCTIVE PULMONARY DISEASE, UNSPECIFIED 07/20/2017 Juan Luis R07.89 OTHER CHEST PAIN 07/29/2017 POWERS DO, OUMAR Ot E78.5 HYPERLIPIDEMIA, UNSPECIFIED 07/29/2017 POWERS DO, OUMAR Ot 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, CIGARETTES, UNCOMPL 07/29/2017 POWERS DO, OUMAR Ot F32.9 MAJOR DEPRESSIVE DISORDER, SINGLE EPISOD 07/29/2017 POWERS DO, OUMAR Ot F41.9 ANXIETY DISORDER, UNSPECIFIED 07/29/2017 POWERS DO, OUMAR Ot I11.0 HYPERTENSIVE HEART DISEASE WITH HEART FA 07/29/2017 POWERS DO, OUMAR Ot I25.10 ATHSCL HEART DISEASE OF [place] CORONARY 07/29/2017 POWERS DO, OUMAR Ot I25.5 ISCHEMIC CARDIOMYOPATHY 07/29/2017 POWERS DO, OUMAR Ot I27.20 PULMONARY HYPERTENSION, UNSPECIFIED 07/29/2017 POWERS DO, OUMAR Ot I50.22 CHRONIC SYSTOLIC (CONGESTIVE) HEART FAIL 07/29/2017 PRIYA DO OUMAR Ot I73.9 PERIPHERAL VASCULAR DISEASE, UNSPECIFIED 07/29/2017 PRIYA BURDICK OUMAR Ot J18.9 PNEUMONIA, UNSPECIFIED ORGANISM 07/29/2017 PRIYA BURDICK OUMAR Ot J44.0 CHRONIC OBSTRUCTIVE PULMON DISEASE W ACU 07/29/2017 PRIYA BURDICK OUMAR Ot J44.1 CHRONIC OBSTRUCTIVE PULMONARY DISEASE W 07/29/2017 PRIYA BURDICK OUMAR Ot J96.22 ACUTE AND CHRONIC RESPIRATORY FAILURE [place] 07/29/2017 PRIYA BURDICK OUMAR Ot K21.9 GASTRO-ESOPHAGEAL REFLUX DISEASE WITHOUT 07/29/2017 PRIYA DO OUMAR Ot R07.89 OTHER CHEST PAIN 07/29/2017 PRIYA BURDICK OUMAR Ot Z95.1 PRESENCE OF AORTOCORONARY BYPASS GRAFT 07/29/2017 PRIYA BURDICK OUMAR Ot Z95.5 PRESENCE OF CORONARY ANGIOPLASTY IMPLANT 07/29/2017 PRIYA BURDICK OUMAR Ot Z99.81 DEPENDENCE ON SUPPLEMENTAL OXYGEN 07/30/2017 PRIYA BURDICK OUMAR Ot E78.5 HYPERLIPIDEMIA, UNSPECIFIED 07/30/2017 PRIYA BURDICK OUMAR Ot 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, CIGARETTES, UNCOMPL 07/30/2017 PRIYA BURDICK OUMAR Ot F32.9 MAJOR DEPRESSIVE DISORDER, SINGLE EPISOD 07/30/2017 PRIYA BURDICK OUMAR Ot F41.9 ANXIETY DISORDER, UNSPECIFIED 07/30/2017 PRIYA BURDICK OUMAR Ot I11.0 HYPERTENSIVE HEART DISEASE WITH HEART FA 07/30/2017 PRIYA BURDICK OUMAR Ot I25.10 ATHSCL HEART DISEASE OF [place] CORONARY 07/30/2017 PRIYA BURDICK OUMAR Ot I25.5 ISCHEMIC CARDIOMYOPATHY 07/30/2017 PRIYA BURDICK OUMAR Ot I27.20 PULMONARY HYPERTENSION, UNSPECIFIED 07/30/2017 PRIYA BURDICK OUMAR Ot I50.22 CHRONIC SYSTOLIC (CONGESTIVE) HEART FAIL 07/30/2017 PRIYA BURDICK OUMAR Ot I73.9 PERIPHERAL VASCULAR DISEASE, UNSPECIFIED 07/30/2017 PRIYA BURDICK OUMAR Ot J18.9 PNEUMONIA, UNSPECIFIED ORGANISM 07/30/2017 PRIYA BURDICK OUMAR Ot J44.0 CHRONIC OBSTRUCTIVE PULMON DISEASE W ACU 07/30/2017 NIKKY POWERS DOI Ot J44.1 CHRONIC OBSTRUCTIVE PULMONARY DISEASE W 07/30/2017 PRIYA BURDICK OUMAR Ot J96.22 ACUTE AND CHRONIC RESPIRATORY FAILURE [place] 07/30/2017 NIKKY POWERS DOI Ot K21.9 GASTRO-ESOPHAGEAL REFLUX DISEASE WITHOUT 07/30/2017 PRIYA BURDICK OUMAR Ot R07.89 OTHER CHEST PAIN 07/30/2017 PRIYA BURDICK OUMAR Ot Z95.1 PRESENCE OF AORTOCORONARY BYPASS GRAFT 07/30/2017 NIKKY POWERS DOI Ot Z95.5 PRESENCE OF CORONARY ANGIOPLASTY IMPLANT 07/30/2017 NIKKY POWERS DOI Ot Z99.81 DEPENDENCE ON SUPPLEMENTAL OXYGEN 07/30/2017 NIKKY POWERS DOI Ot E78.5 HYPERLIPIDEMIA, UNSPECIFIED 07/30/2017 NIKKY POWERS DOI Ot 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, CIGARETTES, UNCOMPL 07/30/2017 NIKKY POWERS DOI Ot F32.9 MAJOR DEPRESSIVE DISORDER, SINGLE EPISOD 07/30/2017 NIKKY POWERS DOI Ot F41.9 ANXIETY DISORDER, UNSPECIFIED 07/30/2017 NIKKY POWERS DOI Ot I11.0 HYPERTENSIVE HEART DISEASE WITH HEART FA 07/30/2017 PRIYA BURDICK OUMAR Ot I25.10 ATHSCL HEART DISEASE OF [place] CORONARY 07/30/2017 NIKKY POWERS DOI Ot I25.5 ISCHEMIC CARDIOMYOPATHY 07/30/2017 PRIYA BURDICK OUMAR Ot I27.20 PULMONARY HYPERTENSION, UNSPECIFIED 07/30/2017 NIKKY POWERS DOI Ot I50.22 CHRONIC SYSTOLIC (CONGESTIVE) HEART FAIL 07/30/2017 OUMAR POWERS DO Ot I73.9 PERIPHERAL VASCULAR DISEASE, UNSPECIFIED 07/30/2017 NIKKY POWERS DOI Ot J18.9 PNEUMONIA, UNSPECIFIED ORGANISM 07/30/2017 NIKKY POWERS DOI Ot J44.0 CHRONIC OBSTRUCTIVE PULMON DISEASE W ACU 07/30/2017 NIKKY POWERS DOI Ot J44.1 CHRONIC OBSTRUCTIVE PULMONARY DISEASE W 07/30/2017 NIKKY POWERS DOI Ot J96.22 ACUTE AND CHRONIC RESPIRATORY FAILURE [place] 07/30/2017 NIKKY POWERS DOI Ot K21.9 GASTRO-ESOPHAGEAL REFLUX DISEASE WITHOUT 07/30/2017 NIKKY POWERS DOI Ot R07.89 OTHER CHEST PAIN 07/30/2017 NIKKY POWERS DOI Ot Z95.1 PRESENCE OF AORTOCORONARY BYPASS GRAFT 07/30/2017 OUMAR POWERS DO Ot Z95.5 PRESENCE OF CORONARY ANGIOPLASTY IMPLANT 07/30/2017 OUMAR POWERS DO Ot Z99.81 DEPENDENCE ON SUPPLEMENTAL OXYGEN 07/31/2017 PRIYA BURDICK OUMAR Ot E78.5 HYPERLIPIDEMIA, UNSPECIFIED 07/31/2017 PRIYA BURDICK OUMAR Ot 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, CIGARETTES, UNCOMPL 07/31/2017 PRIYA BURDICK OUMAR Ot F32.9 MAJOR DEPRESSIVE DISORDER, SINGLE EPISOD 07/31/2017 NIKKY POWERS DOI Ot F41.9 ANXIETY DISORDER, UNSPECIFIED 07/31/2017 PRIYA BURDICK OUMAR Ot I11.0 HYPERTENSIVE HEART DISEASE WITH HEART FA 07/31/2017 NIKKY POWERS DOI Ot I25.10 ATHSCL HEART DISEASE OF [place] CORONARY 07/31/2017 NIKKY POWERS DOI Ot I25.5 ISCHEMIC CARDIOMYOPATHY 07/31/2017 NIKKY POWERS DOI Ot I27.20 PULMONARY HYPERTENSION, UNSPECIFIED 07/31/2017 OUMAR POWERS DO Ot I50.22 CHRONIC SYSTOLIC (CONGESTIVE) HEART FAIL 07/31/2017 NIKKY POWERS DOI Ot I73.9 PERIPHERAL VASCULAR DISEASE, UNSPECIFIED 07/31/2017 OUMAR POWERS DO Ot J18.9 PNEUMONIA, UNSPECIFIED ORGANISM 07/31/2017 NIKKY POWERS DOI Ot J44.0 CHRONIC OBSTRUCTIVE PULMON DISEASE W ACU 07/31/2017 NIKKY POWERS DOI Ot J44.1 CHRONIC OBSTRUCTIVE PULMONARY DISEASE W 07/31/2017 NIKKY PWOERS DOI Ot J96.22 ACUTE AND CHRONIC RESPIRATORY FAILURE [place] 07/31/2017 NIKKY POWERS DOI Ot K21.9 GASTRO-ESOPHAGEAL REFLUX DISEASE WITHOUT 07/31/2017 NIKKY POWERS DOI Ot R07.89 OTHER CHEST PAIN 07/31/2017 OUMAR POWERS DO Ot Z23 ENCOUNTER FOR IMMUNIZATION 07/31/2017 OUMAR POWERS DO Ot Z95.1 PRESENCE OF AORTOCORONARY BYPASS GRAFT 07/31/2017 OUMAR POWERS DO Ot Z95.5 PRESENCE OF CORONARY ANGIOPLASTY IMPLANT 07/31/2017 OUMAR POWERS DO Ot Z99.81 DEPENDENCE ON SUPPLEMENTAL OXYGEN 09/15/2017 RAJAN CRANE, JUAREZ Chapin Ot E78. 00 PURE HYPERCHOLESTEROLEMIA, UNSPECIFIED 09/15/2017 JUAREZ TOLENTINO MD, Ot E78. 5 HYPERLIPIDEMIA, UNSPECIFIED 09/15/2017 JUAREZ TOLENTINO MD, Ot F17.210 NICOTINE DEPENDENCE, CIGARETTES, UNCOMPL 09/15/2017 JUAREZ TOLENTINO MD, Ot F20. 9 SCHIZOPHRENIA, UNSPECIFIED 09/15/2017 JUAREZ TOLENTINO MD, Ot F32. 9 MAJOR DEPRESSIVE DISORDER, SINGLE EPISOD 09/15/2017 JUAREZ TOLENTINO MD, Ot I10 ESSENTIAL (PRIMARY) HYPERTENSION 09/15/2017 JUAREZ TOLENTINO MD, Ot I25.119 ATHSCL HEART DISEASE OF [place] COR ART W 09/15/2017 JUAREZ TOLENTINO MD, Ot I25. 2 OLD MYOCARDIAL INFARCTION 09/15/2017 JUAREZ TOLENTINO MD, Ot I65. 29 OCCLUSION AND STENOSIS OF UNSPECIFIED CA 09/15/2017 JUAREZ TOLENTINO MD, Ot I73. 9 PERIPHERAL VASCULAR DISEASE, UNSPECIFIED 09/15/2017 JUAREZ TOLENTINO MD, Ot J44. 1 CHRONIC OBSTRUCTIVE PULMONARY DISEASE W 09/15/2017 JUAREZ TOLENTINO MD, Ot K21. 9 GASTRO-ESOPHAGEAL REFLUX DISEASE WITHOUT 09/15/2017 JUAREZ TOLENTINO MD Ot R53. 83 OTHER FATIGUE 09/15/2017 JUAREZ TOLENTINO MD, Ot Z79.899 OTHER HALFWAY (CURRENT) DRUG THERAPY 09/15/2017 JUAREZ TOLENTINO MD, Ot Z86.718 PERSONAL HISTORY OF OTHER VENOUS THROMBO 09/15/2017 JUAREZ TOLENTINO MD, Ot Z88. 7 ALLERGY STATUS TO SERUM AND VACCINE STAT 09/15/2017 JUAREZ TOLENTINO MD, Ot Z88. 8 ALLERGY STATUS TO OTH DRUG/MEDS/BIOL SUB 09/15/2017 JUAREZ TOLENTINO MD, Ot Z95. 1 PRESENCE OF AORTOCORONARY BYPASS GRAFT 09/15/2017 JUAREZ TOLENTINO MD Ot Z95. 5 PRESENCE OF CORONARY ANGIOPLASTY IMPLANT 09/15/2017 JUAREZ TOLENTINO MD Ot Z99. 81 DEPENDENCE ON SUPPLEMENTAL OXYGEN 09/17/2017 CATE HERRERA APRN Ot J18.9 PNEUMONIA, UNSPECIFIED ORGANISM 09/17/2017 CATE HERRERA APRN Ot J44.9 CHRONIC OBSTRUCTIVE PULMONARY DISEASE, U 09/17/2017 JAVIER, CATE Mitzi WRITER EDITOR Ot R91.8 OTHER NONSPECIFIC ABNORMAL FINDING OF [place] 09/17/2017 JAVIER CATE Mitzi WRITER EDITOR Ot Z72.0 TOBACCO USE 09/23/2017 W 491.21 OBS TRUCTIVE CHRONIC BRONCHITIS WITH (ACUTE) 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 09/23/2017 W J44.1 MAINTENANCE CONSTRUCTION HELPER JIMMIE OBSTRUCTIVE PULMONARY DISEASE WITH (ACUTE) 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 10/07/2017 CATE HERRERA WRITER EDITOR Ot J18.9 PNEUMONIA, UNSPECIFIED ORGANISM 10/07/2017 CATE HERRERA WRITER EDITOR Ot J44.9 CHRONIC OBSTRUCTIVE PULMONARY DISEASE, U 10/07/2017 JAVIER, CATE Mitzi WRITER EDITOR Ot R91.8 OTHER NONSPECIFIC ABNORMAL FINDING OF [place] 10/07/2017 JAVIER CATE [place]agen[place] WRITER EDITOR Ot Z72.0 TOBACCO USE 10/07/2017 W 719.41 JAMMIE N IN JOINT INVOLVING SHOULDER REGION 10/07/2017 W 726.10 DIS ORDERS OF [place] AND TENDONS IN SHOULDER REGION, UNSPECIFIED 10/07/2017 W M25.511 PA IN IN RIGHT SHOULDER 10/07/2017 W M75.101 UN SPECIFIED ROTATOR CUFF TEAR OR RUPTURE OF RIGHT SHOULDER, NOT SPECIFIED TRAUMATIC 10/08/2017 Judi Zepeda W 726.10 DISORDERS OF [place] AND TENDONS IN SHOULDER REGION, UNSPECIFIED 10/08/2017 Judi Zepeda W M75.101 UNSPECIFIED ROTATOR CUFF TEAR OR RUPTURE OF RIGHT SHOULDER, NOT SPECIFIED TRAUMATIC 10/08/2017 Judi Zepeda W 719.41 PAIN IN JOINT INVOLVING SHOULDER REGION 10/08/2017 Judi Zepeda W 726.10 DISORDERS OF [place] AND TENDONS IN SHOULDER REGION, UNSPECIFIED 10/08/2017 Judi Zepeda W M25.511 PAIN IN RIGHT SHOULDER 10/08/2017 Judi Zepeda W M75.101 UNSPECIFIED ROTATOR CUFF TEAR OR RUPTURE OF RIGHT SHOULDER, NOT SPECIFIED TRAUMATIC 10/08/2017 Judi Zepeda W 719.41 PAIN IN JOINT INVOLVING SHOULDER REGION 10/08/2017 Judi Zepeda W 726.10 DISORDERS OF [place] AND TENDONS IN SHOULDER REGION, UNSPECIFIED 10/08/2017 Judi Zepeda W M25.511 PAIN IN RIGHT SHOULDER 10/08/2017 Judi Zepeda W M75.101 UNSPECIFIED ROTATOR CUFF TEAR OR RUPTURE OF RIGHT SHOULDER, NOT SPECIFIED TRAUMATIC 10/15/2017 MARTIN GRULLON MD, Ot E78 .5 HYPERLIPIDEMIA, UNSPECIFIED 10/15/2017 MARTIN GRULLON MD, Ot F17.210 NICOTINE DEPENDENCE, CIGARETTES, UNCOMPL 10/15/2017 MARTIN GRULLON MD, Ot F20 .9 SCHIZOPHRENIA, UNSPECIFIED 10/15/2017 MARTIN GRULLON MD, Ot F32 .9 MAJOR DEPRESSIVE DISORDER, SINGLE EPISOD 10/15/2017 MARTIN GRULLON MD, Ot F41 .9 ANXIETY DISORDER, UNSPECIFIED 10/15/2017 MARTIN GRULLON MD, Ot G47 .9 SLEEP DISORDER, UNSPECIFIED 10/15/2017 MARTIN GRULLON MD, Ot I10 ESSENTIAL (PRIMARY) HYPERTENSION 10/15/2017 MARTIN GRULLON MD Ot I11 .0 HYPERTENSIVE HEART DISEASE WITH HEART FA 10/15/2017 MARTIN GRULLON MD, Ot I25.119 ATHSCL HEART DISEASE OF [place] COR ART W 10/15/2017 MARTIN GRULLON MD, Ot I25 .2 OLD MYOCARDIAL INFARCTION 10/15/2017 MARTIN GRULLON MD, Ot I25 .5 ISCHEMIC CARDIOMYOPATHY 10/15/2017 MARTIN GRULLON MD, Ot 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 10/15/2017 MARTIN GRULLON MD, Ot I27.20 PULMONARY HYPERTENSION, UNSPECIFIED 10/15/2017 MARTIN GRULLON MD Ot I50.22 CHRONIC SYSTOLIC (CONGESTIVE) HEART FAIL 10/15/2017 MARTIN GRULLON MD Ot I65.29 OCCLUSION AND STENOSIS OF UNSPECIFIED CA 10/15/2017 MARTIN GRULLON MD, Ot I73 .9 PERIPHERAL VASCULAR DISEASE, UNSPECIFIED 10/15/2017 MARTIN GRULLON MD, Ot J44 .1 CHRONIC OBSTRUCTIVE PULMONARY DISEASE W 10/15/2017 MARTIN GRULLON MD, Ot K21 .9 GASTRO-ESOPHAGEAL REFLUX DISEASE WITHOUT 10/15/2017 MARTIN GRULLON MD Ot M19.91 PRIMARY OSTEOARTHRITIS, UNSPECIFIED SITE 10/15/2017 MARTIN GRULLON MD Ot R07.81 PLEURODYNIA 10/15/2017 ODGERS MD, MARTIN K Ot Z87.11 PERSONAL HISTORY OF PEPTIC ULCER DISEASE 10/15/2017 MARTIN GRULLON MD Ot Z91.81 HISTORY OF FALLING 10/15/2017 MARTIN GRULLON MD Ot Z95 .1 PRESENCE OF AORTOCORONARY BYPASS GRAFT 10/15/2017 MARTIN GRULLON MD Ot Z95 .5 PRESENCE OF CORONARY ANGIOPLASTY IMPLANT 10/15/2017 MARTIN GRULLON MD Ot Z95.828 PRESENCE OF OTHER VASCULAR IMPLANTS AND 10/15/2017 MARTIN GRULLON MD Ot Z99.81 DEPENDENCE ON SUPPLEMENTAL OXYGEN 10/17/2017 CATE HERRERA APRN Ot J18.9 PNEUMONIA, UNSPECIFIED ORGANISM 10/17/2017 CATE HERRERA APRN Ot J44.9 CHRONIC OBSTRUCTIVE PULMONARY DISEASE, U 10/17/2017 CATE HERRERA APRN Ot R91.8 OTHER NONSPECIFIC ABNORMAL FINDING OF [place] 10/17/2017 CATE HERRERA APRN Ot Z72.0 TOBACCO USE 10/22/2017 W 112.0 CAND IDIASIS OF MOUTH 10/22/2017 W 478.0 HYPE RTROPHY OF NASAL TURBINATES 10/22/2017 W 491.21 OBS TRUCTIVE CHRONIC BRONCHITIS WITH (ACUTE) 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 10/22/2017 W B37.0 CAND IDAL STOMATITIS 10/22/2017 W J34.3 HYPE RTROPHY OF NASAL TURBINATES 10/22/2017 W J44.1 MAINTENANCE CONSTRUCTION HELPER JIMMIE OBSTRUCTIVE PULMONARY DISEASE WITH (ACUTE) 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 10/28/2017 W 112.0 CAND IDIASIS OF MOUTH 10/28/2017 W 491.21 OBS TRUCTIVE CHRONIC BRONCHITIS WITH (ACUTE) 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 10/28/2017 W B37.0 CAND IDAL STOMATITIS 10/28/2017 W J44.1 MAINTENANCE CONSTRUCTION HELPER JIMMIE OBSTRUCTIVE PULMONARY DISEASE WITH (ACUTE) 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 11/15/2017 ANTOINETTE SANDHU MD Ot E78.00 PURE HYPERCHOLESTEROLEMIA, UNSPECIFIED 11/15/2017 ANTOINETTE SANDHU MD Ot F17.210 NICOTINE DEPENDENCE, CIGARETTES, UNCOMPL 11/15/2017 ANTOINETTE SANDHU MD Ot F20.9 SCHIZOPHRENIA, UNSPECIFIED 11/15/2017 ANTOINETTE SANDHU MD Ot F32.9 MAJOR DEPRESSIVE DISORDER, SINGLE EPISOD 11/15/2017 ANTOINETTE SANDHU MD Ot I10 ESSENTIAL (PRIMARY) HYPERTENSION 11/15/2017 ANTOINETTE SANDHU MD Ot I25.10 ATHSCL HEART DISEASE OF [place] CORONARY 11/15/2017 ANTOINETTE SANDHU MD, Ot I25.2 OLD MYOCARDIAL INFARCTION 11/15/2017 ANTOINETTE SANDHU MD, Ot J44.1 CHRONIC OBSTRUCTIVE PULMONARY DISEASE W 11/15/2017 ANTOINETTE SANDHU MD Ot K21.9 GASTRO-ESOPHAGEAL REFLUX DISEASE WITHOUT 11/15/2017 ANTOINETTE SANDHU MD, Ot R07.9 CHEST PAIN, UNSPECIFIED 11/15/2017 ANTOINETTE SANDHU MD Ot Z79.51 HALFWAY (CURRENT) USE OF INHALED STERO 11/15/2017 ANTOINETTE SANDHU MD, Ot Z79.52 HALFWAY (CURRENT) USE OF SYSTEMIC STER 11/15/2017 ANTOINETTE SANDHU MD, Ot Z79.82 NURSES ASSISTANT (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 11/15/2017 ANTOINETTE SANDHU MD, Ot Z82.49 FAMILY HX OF ISCHEM HEART DIS AND OTH DI 11/15/2017 ANTOINETTE SANDHU MD Ot Z86.718 PERSONAL HISTORY OF OTHER VENOUS THROMBO 11/15/2017 ANTOINETTE SANDHU MD Ot Z87.19 PERSONAL HISTORY OF OTHER DISEASES OF TH 11/15/2017 ANTOINETTE SANDHU MD Ot Z88.7 ALLERGY STATUS TO SERUM AND VACCINE STAT 11/15/2017 ANTOINETTE SANDHU MD Ot Z88.8 ALLERGY STATUS TO [facility] DRUG/MEDS/BIOL SUB 11/15/2017 ANTOINETTE SANDHU MD Ot Z90.89 ACQUIRED ABSENCE OF OTHER ORGANS 11/15/2017 ANTOINETTE SANDHU MD Ot Z95.1 PRESENCE OF AORTOCORONARY BYPASS GRAFT 11/15/2017 ANTOINETTE SANDHU MD Ot Z95.5 PRESENCE OF CORONARY ANGIOPLASTY IMPLANT 11/15/2017 ANTOINETTE SANDHU MD Ot Z99.81 DEPENDENCE ON SUPPLEMENTAL OXYGEN 11/17/2017 ANTOINETTE SANDHU MD Ot E78.00 PURE HYPERCHOLESTEROLEMIA, UNSPECIFIED 11/17/2017 ANTOINETTE SANDHU MD Ot F17.210 NICOTINE DEPENDENCE, CIGARETTES, UNCOMPL 11/17/2017 ANTOINETTE SANDHU MD Ot F20.9 SCHIZOPHRENIA, UNSPECIFIED 11/17/2017 ANTOINETTE SANDHU MD, Ot F32.9 MAJOR DEPRESSIVE DISORDER, SINGLE EPISOD 11/17/2017 ANTOINETTE SANDHU MD, Ot I10 ESSENTIAL (PRIMARY) HYPERTENSION 11/17/2017 ANTOINETTE SANDHU MD, Ot I25.10 ATHSCL HEART DISEASE OF [place] CORONARY 11/17/2017 ANTOINETTE SANDHU MD, Ot I25.2 OLD MYOCARDIAL INFARCTION 11/17/2017 ANTOINETTE SANDHU MD, Ot J44.1 CHRONIC OBSTRUCTIVE PULMONARY DISEASE W 11/17/2017 ANTOINETTE SANDHU MD, Ot K21.9 GASTRO-ESOPHAGEAL REFLUX DISEASE WITHOUT 11/17/2017 ANTOINETTE SANDHU MD, Ot R07.9 CHEST PAIN, UNSPECIFIED 11/17/2017 ANTOINETTE SANDHU MD, Ot Z79.51 HALFWAY (CURRENT) USE OF INHALED STERO 11/17/2017 ANTOINETTE SANDHU MD, Ot Z79.52 NURSES ASSISTANT (CURRENT) USE OF SYSTEMIC STER 11/17/2017 ANTOINETTE SANDHU MD, Ot Z79.82 NURSES ASSISTANT (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 11/17/2017 ANTOINETTE SANDHU MD, Ot Z82.49 FAMILY HX OF I[place]HE[place] HEART DIS AND OTH DI 11/17/2017 ANTOINETTE SANDHU MD, Ot Z86.718 PERSONAL HISTORY OF OTHER VENOUS THROMBO 11/17/2017 ANTOINETTE SANDHU MD Ot Z87.19 PERSONAL HISTORY OF OTHER DISEASES OF TH 11/17/2017 ANTOINETTE SANDHU MD, Ot Z88.7 ALLERGY STATUS TO SERUM AND VACCINE STAT 11/17/2017 ANTOINETTE SANDHU MD, Ot Z88.8 ALLERGY STATUS TO [facility] DRUG/MEDS/BIOL SUB 11/17/2017 ANTOINETTE SANDHU MD, Ot Z90.89 ACQUIRED ABSENCE OF OTHER ORGANS 11/17/2017 ANTOINETTE SANDHU MD Ot Z95.1 PRESENCE OF AORTOCORONARY BYPASS GRAFT 11/17/2017 ANTOINETTE SANDHU MD Ot Z95.5 PRESENCE OF CORONARY ANGIOPLASTY IMPLANT 11/17/2017 ANTOINETTE SANDHU MD Ot Z99.81 DEPENDENCE ON SUPPLEMENTAL OXYGEN 12/02/2017 W 443.89 OTH ER PERIPHERAL VASCULAR DISEASE 12/02/2017 W 443.9 FABRIZIO PHERAL VASCULAR DISEASE, UNSPECIFIED 12/02/2017 W 491.20 OBS TRUCTIVE CHRONIC BRONCHITIS, WITHOUT 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 12/02/2017 W 491.21 OBS TRUCTIVE CHRONIC BRONCHITIS WITH (ACUTE) 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 12/02/2017 W I73.89 OT ER SPECIFIED PERIPHERAL VASCULAR DISEASES 12/02/2017 W J44.1 MAINTENANCE CONSTRUCTION HELPER JIMMIE OBSTRUCTIVE PULMONARY DISEASE WITH (ACUTE) 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 12/02/2017 W J44.9 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 CONSTRUCTION HELPER JIMMIE OBSTRUCTIVE PULMONARY DISEASE, UNSPECIFIED 12/02/2017 W R26.89 OTH ER ABNORMALITIES OF GAIT AND MOBILITY 12/05/2017 Zepeda, Tita-Krista W 443.89 OTHER PERIPHERAL VASCULAR DISEASE 12/05/2017 Zepeda, Tita-Krista W 443.9 PERIPHERAL VASCULAR DISEASE, UNSPECIFIED 12/05/2017 Zepeda, Tita-Krista W I73.89 OTHER SPECIFIED PERIPHERAL VASCULAR DISEASES 12/05/2017 Zepeda, Tita-Krista W R26.89 OTHER ABNORMALITIES OF GAIT AND MOBILITY 12/05/2017 Zepeda, Tita-Krista W 443.89 OTHER PERIPHERAL VASCULAR DISEASE 12/05/2017 Zepeda, Tita-Krista W 443.9 PERIPHERAL VASCULAR DISEASE, UNSPECIFIED 12/05/2017 Zepeda, Tita-Krista W I73.89 OTHER SPECIFIED PERIPHERAL VASCULAR DISEASES 12/05/2017 Zepeda, Tita-Krista W R26.89 OTHER ABNORMALITIES OF GAIT AND MOBILITY 01/16/2018 W 726.10 DIS ORDERS OF [place] AND TENDONS IN SHOULDER REGION, UNSPECIFIED 01/16/2018 W M75.101 UN SPECIFIED ROTATOR CUFF TEAR OR RUPTURE OF RIGHT SHOULDER, NOT SPECIFIED TRAUMATIC 02/10/2018 Ot 496 CHR AI RWAY OBSTRUCT NEC 02/10/2018 Ot 519.11 ACU TE BRONCHOSPASM 02/10/2018 Ot 786.2 COUGH 02/10/2018 JOSHUA CASTILLO MD Ot 414. 00 CORON ATHEROSCLER NOS TYPE VESSEL, NATIV 02/10/2018 JOSHUA CASTILLO MD Ot 786. 50 CHEST PAIN NOS 02/10/2018 XIMENA QUINONES DO Ot 300. 00 ANXIETY STATE NOS 02/10/2018 XIMENA QUINONES DO Ot 414. 00 CORON ATHEROSCLER NOS TYPE VESSEL, NATIV 02/10/2018 XIMENA QUINONES DO Ot 496 CHR AIRWAY OBSTRUCT NEC 02/10/2018 JOSHUA CASTILLO MD Ot 311 DEPRESSIVE DISORDER NEC 02/10/2018 JOSHUA CASTILLO MD Ot 401. 9 HYPERTENSION NOS 02/10/2018 JOSHUA CASTILLO MD Ot 414. 00 CORON ATHEROSCLER NOS TYPE VESSEL, NATIV 02/10/2018 JOSHUA CASTILLO MD Ot 428. 0 CONGESTIVE HEART FAILURE NOS 02/10/2018 JOSHUA CASTILLO MD Ot 433. 10 CAROTID ARTERY OCCLUSION W O CEREBRAL IN 02/10/2018 JOSHUA CASTILLO MD Ot 496 CHR AIRWAY OBSTRUCT NEC 02/10/2018 JOSHUA CASTILLO MD Ot 786. 09 RESPIRATORY ABNORM NEC 02/10/2018 Ot 300.00 ANX IETY STATE NOS 02/10/2018 Ot 414.00 COR ON ATHEROSCLER NOS TYPE VESSEL, NATIV 02/10/2018 Ot 496 CHR AI RWAY OBSTRUCT NEC 02/10/2018 Ot V57.89 PRIYANKA ABILITATION PROC NEC 02/10/2018 JOSHUA CASTILLO MD Ot 272. 4 HYPERLIPIDEMIA NEC/NOS 02/10/2018 JOSHUA CASTILLO MD Ot 401. 9 HYPERTENSION NOS 02/10/2018 JOSHUA CASTILLO MD Ot 414. 00 CORON ATHEROSCLER NOS TYPE VESSEL, NATIV 02/10/2018 JOSHUA CASTILLO MD Ot 786. 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 4 HYPERLIPIDEMIA NEC/NOS 02/10/2018 JOSHUA CASTILLO MD Ot 401. 9 HYPERTENSION NOS 02/10/2018 JOSHUA CASTILLO MD Ot 414. 00 CORON ATHEROSCLER NOS TYPE VESSEL, NATIV 02/10/2018 JOSHUA CASTILLO MD Ot 428. 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 2 MIXED HYPERLIPIDEMIA 02/10/2018 JOSHUA CASTILLO MD Ot F41. 9 ANXIETY DISORDER, UNSPECIFIED 02/10/2018 JOSHUA CASTILLO MD Ot I10 ESSENTIAL (PRIMARY) HYPERTENSION 02/10/2018 JOSHUA CASTILLO MD Ot I25. 10 ATHSCL HEART DISEASE OF [place] CORONARY 02/10/2018 JOSHUA CASTILLO MD Ot R07. 89 OTHER CHEST PAIN 02/10/2018 JOSHUA CASTILLO MD Ot Z72. 0 TOBACCO USE 02/10/2018 JOSHUA CASTILLO MD Ot E78. 5 HYPERLIPIDEMIA, UNSPECIFIED 02/10/2018 JOSHUA CASTILLO MD Ot F41. 9 ANXIETY DISORDER, UNSPECIFIED 02/10/2018 JOSHUA CASTILLO MD Ot I10 ESSENTIAL (PRIMARY) HYPERTENSION 02/10/2018 JOSHUA CASTILLO MD Ot I25. 10 ATHSCL HEART DISEASE OF [place] CORONARY 02/10/2018 JOSHUA CASTILLO MD Ot R07. 89 OTHER CHEST PAIN 02/10/2018 JOSHUA CASTILLO MD Ot Z72. 0 TOBACCO USE 02/10/2018 CATE HERRERA APRN Ot J44.9 CHRONIC OBSTRUCTIVE PULMONARY DISEASE, U 02/10/2018 CATE HERRERA APRN Ot R06.02 SHORTNESS OF BREATH 02/10/2018 CATE HERRERA APRN Ot R06.2 WHEEZING 02/10/2018 CATE HERRERA APRN Ot R09.02 HYPOXEMIA 02/10/2018 CATE HERRERA APRN Ot R91.1 SOLITARY PULMONARY NODULE 02/10/2018 CATE HERRERA APRN Ot J44.0 CHRONIC OBSTRUCTIVE PULMON DISEASE W ACU 02/10/2018 CATE HERRERA APRN Ot R06.02 SHORTNESS OF BREATH 02/10/2018 CATE HERRERA APRN Ot R06.2 WHEEZING 02/10/2018 CATE HERRERA APRN Ot R09.02 HYPOXEMIA 02/10/2018 CATE HERRERA APRN Ot R91.1 SOLITARY PULMONARY NODULE 02/10/2018 CATE HERRERA APRN Ot Z72.0 TOBACCO USE 02/10/2018 CELSO FORD GLOBAL ACCOUNT DIRECTOR-C Ot 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 2 MIXED HYPERLIPIDEMIA 02/10/2018 JOSHUA CASTILLO MD Ot I11. 0 HYPERTENSIVE HEART DISEASE WITH HEART FA 02/10/2018 JOSHUA CASTILLO MD Ot I25. 10 ATHSCL HEART DISEASE OF [place] CORONARY 02/10/2018 JOSHUA CASTILLO MD Ot I50. 9 HEART FAILURE, UNSPECIFIED 02/10/2018 JOSHUA CASTILLO MD Ot E78. 2 MIXED HYPERLIPIDEMIA 02/10/2018 JOSHUA CASTILLO MD Ot I11. 0 HYPERTENSIVE HEART DISEASE WITH HEART FA 02/10/2018 JOSHUA CASTILLO MD Ot I25. 10 ATHSCL HEART DISEASE OF [place] CORONARY 02/10/2018 JOSHUA CASTILLO MD Ot I50. 9 HEART FAILURE, UNSPECIFIED 02/10/2018 CATE HERRERA APRN Ot J18.9 PNEUMONIA, UNSPECIFIED ORGANISM 02/10/2018 CATE HERRERA APRN Ot J44.9 CHRONIC OBSTRUCTIVE PULMONARY DISEASE, U 02/10/2018 CATE HERRERA APRN Ot R91.8 OTHER NONSPECIFIC ABNORMAL FINDING OF [place] 02/10/2018 CATE HERRERA APRN Ot Z72.0 TOBACCO USE 02/11/2018 HORTENCIA LYNN Ot M19.011 PRIMARY OSTEOARTHRITIS, RIGHT SHOULDER 02/11/2018 HORTENCIA LYNN Ot M75. 81 OTHER SHOULDER LESIONS, RIGHT SHOULDER 02/15/2018 Ot 300.00 ANX IETY STATE NOS 02/15/2018 Ot 414.00 COR ON ATHEROSCLER NOS TYPE VESSEL, NATIV 02/15/2018 Ot 496 CHR AI RWAY OBSTRUCT NEC 02/15/2018 Ot V57.89 PRIYANKA ABILITATION PROC NEC 02/15/2018 JUAREZ TOLENTINO MD Ot E78. 00 PURE HYPERCHOLESTEROLEMIA, UNSPECIFIED 02/15/2018 JUAREZ TOLENTINO MD, Ot E78. 5 HYPERLIPIDEMIA, UNSPECIFIED 02/15/2018 JUAREZ TOLENTINO MD Ot F17.210 NICOTINE DEPENDENCE, CIGARETTES, UNCOMPL 02/15/2018 JUAREZ TOLENTINO MD Ot F20. 9 SCHIZOPHRENIA, UNSPECIFIED 02/15/2018 JUAREZ TOLENTINO MD Ot F32. 9 MAJOR DEPRESSIVE DISORDER, SINGLE EPISOD 02/15/2018 JUAREZ TOLENTINO MD, Ot F41. 9 ANXIETY DISORDER, UNSPECIFIED 02/15/2018 JUAREZ TOLENTINO MD Ot I11. 0 HYPERTENSIVE HEART DISEASE WITH HEART FA 02/15/2018 JUAREZ TOLENTINO MD, Ot I25. 2 OLD MYOCARDIAL INFARCTION 02/15/2018 JUAERZ TOLENTINO MD, Ot I25. 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 20 PULMONARY HYPERTENSION, UNSPECIFIED 02/15/2018 JUAREZ TOLENTINO MD Ot I50. 22 CHRONIC SYSTOLIC (CONGESTIVE) HEART FAIL 02/15/2018 JUAREZ TOLENTINO MD Ot I65. 29 OCCLUSION AND STENOSIS OF UNSPECIFIED CA 02/15/2018 JUAREZ TOLENTINO MD Ot I73. 9 PERIPHERAL VASCULAR DISEASE, UNSPECIFIED 02/15/2018 JUAREZ TOLENTINO MD Ot J44. 9 CHRONIC OBSTRUCTIVE PULMONARY DISEASE, U 02/15/2018 JUAREZ TOLENTINO MD, Ot K21. 9 GASTRO-ESOPHAGEAL REFLUX DISEASE WITHOUT 02/15/2018 JUAREZ TOLENTINO MD Ot Z79. 82 NURSES ASSISTANT (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 02/15/2018 JUAREZ TOLENTINO MD Ot Z79.899 OTHER NURSES ASSISTANT (CURRENT) DRUG THERAPY 02/15/2018 JUAREZ TOLENTINO MD Ot Z86.718 PERSONAL HISTORY OF OTHER VENOUS THROMBO 02/15/2018 JUAREZ TOLENTINO MD Ot Z95. 1 PRESENCE OF AORTOCORONARY BYPASS GRAFT 02/15/2018 JUAREZ TOLENTINO MD Ot Z95. 5 PRESENCE OF CORONARY ANGIOPLASTY IMPLANT 02/15/2018 JUAREZ TOLENTINO MD, Ot E78. 00 PURE HYPERCHOLESTEROLEMIA, UNSPECIFIED 02/15/2018 JUAREZ TOLENTINO MD, Ot E78. 5 HYPERLIPIDEMIA, UNSPECIFIED 02/15/2018 JUAREZ TOLENTINO MD Ot F17.210 NICOTINE DEPENDENCE, CIGARETTES, UNCOMPL 02/15/2018 JUAREZ TOLENTINO MD, Ot F20. 9 SCHIZOPHRENIA, UNSPECIFIED 02/15/2018 JUAREZ TOLENTINO MD Ot F32. 9 MAJOR DEPRESSIVE DISORDER, SINGLE EPISOD 02/15/2018 JUAREZ TOLENTINO MD, Ot F41. 9 ANXIETY DISORDER, UNSPECIFIED 02/15/2018 JUAREZ TOLENTINO MD Ot I11. 0 HYPERTENSIVE HEART DISEASE WITH HEART FA 02/15/2018 JUAREZ TOLENTINO MD, Ot I25. 2 OLD MYOCARDIAL INFARCTION 02/15/2018 JUAREZ TOLENTINO MD, Ot I25. 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 20 PULMONARY HYPERTENSION, UNSPECIFIED 02/15/2018 JUAREZ TOLENTINO MD Ot I50. 22 CHRONIC SYSTOLIC (CONGESTIVE) HEART FAIL 02/15/2018 JUAREZ TOLENTINO MD Ot I65. 29 OCCLUSION AND STENOSIS OF UNSPECIFIED CA 02/15/2018 JUAREZ TOLENTINO MD Ot I73. 9 PERIPHERAL VASCULAR DISEASE, UNSPECIFIED 02/15/2018 JUAREZ TOLENTINO MD Ot J44. 9 CHRONIC OBSTRUCTIVE PULMONARY DISEASE, U 02/15/2018 JUAREZ TOLENTINO MD, Ot K21. 9 GASTRO-ESOPHAGEAL REFLUX DISEASE WITHOUT 02/15/2018 JUAREZ TOLENTINO MD Ot Z79. 82 NURSES ASSISTANT (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 02/15/2018 JUAREZ TOLENTINO MD, Ot Z79.899 OTHER HALFWAY (CURRENT) DRUG THERAPY 02/15/2018 JUAREZ TOLENTINO MD, Ot Z86.718 PERSONAL HISTORY OF OTHER VENOUS THROMBO 02/15/2018 JUAREZ TOLENTINO MD Ot Z95. 1 PRESENCE OF AORTOCORONARY BYPASS GRAFT 02/15/2018 JUAREZ TOLENTINO MD Ot Z95. 5 PRESENCE OF CORONARY ANGIOPLASTY IMPLANT 02/25/2018 W 786.5 CHES T PAIN 02/25/2018 W R07.9 CHES T PAIN, UNSPECIFIED 03/05/2018 W 460 ACUTE NASOPHARYNGITIS [COMMON COLD] 03/05/2018 W 491.21 OBS TRUCTIVE CHRONIC BRONCHITIS WITH (ACUTE) 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 03/05/2018 W J00 ACUTE NASOPHARYNGITIS [COMMON COLD] 03/05/2018 W J44.1 MAINTENANCE CONSTRUCTION HELPER JIMMIE OBSTRUCTIVE PULMONARY DISEASE WITH (ACUTE) 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 03/06/2018 HORTENCIA LYNNP Ot M19.011 PRIMARY OSTEOARTHRITIS, RIGHT SHOULDER 03/06/2018 HORTENCIA LYNNP Ot M75. 81 OTHER SHOULDER LESIONS, RIGHT SHOULDER 03/10/2018 W 486 PNEUMO NIRAV, ORGANISM UNSPECIFIED 03/10/2018 W 491.21 OBS TRUCTIVE CHRONIC BRONCHITIS WITH (ACUTE) 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 03/10/2018 W J18.9 PNEU MONIA, UNSPECIFIED ORGANISM 03/10/2018 W J44.1 MAINTENANCE CONSTRUCTION HELPER JIMMIE OBSTRUCTIVE PULMONARY DISEASE WITH (ACUTE) 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 03/18/2018 JOSHUA CASTILLO MD Ot E78. 5 HYPERLIPIDEMIA, UNSPECIFIED 03/18/2018 JOSHUA CASTILLO MD Ot I08. 1 RHEUMATIC DISORDERS OF BOTH MITRAL AND T 03/18/2018 JOSHUA CASTILLO MD Ot I10 ESSENTIAL (PRIMARY) HYPERTENSION 03/18/2018 JOSHUA CASTILLO MD Ot I25.110 ATHSCL HEART DISEASE OF [place] COR ART W 03/18/2018 JOSHUA CASTILLO MD Ot I25. 82 CHRONIC TOTAL OCCLUSION OF CORONARY TOM 03/18/2018 JOSHUA CASTILLO MD Ot I65. 23 OCCLUSION AND STENOSIS OF BILATERAL BREWER 03/18/2018 JOSHUA CASTILLO MD, Ot J44. 9 CHRONIC OBSTRUCTIVE PULMONARY DISEASE, U 03/18/2018 JOSHUA CASTILLO MD Ot N28. 9 DISORDER OF KIDNEY AND URETER, UNSPECIFI 03/18/2018 JOSHUA CASTILLO MD, Ot Z87.891 PERSONAL HISTORY OF NICOTINE DEPENDENCE 03/18/2018 JOSHUA CASTILLO MD Ot Z95. 5 PRESENCE OF CORONARY ANGIOPLASTY IMPLANT 03/18/2018 JOSHUA CASTILLO MD, Ot Z95.820 PERIPHERAL VASCULAR ANGIOPLASTY STATUS W 03/18/2018 JOSHUA CASTILLO MD, Ot Z99. 81 DEPENDENCE ON SUPPLEMENTAL OXYGEN 03/23/2018 JOSHUA CASTILLO MD Ot E78. 5 HYPERLIPIDEMIA, UNSPECIFIED 03/23/2018 JOSHUA CASTILLO MD Ot I08. 1 RHEUMATIC DISORDERS OF BOTH [place] AND T 03/23/2018 JOSHUA CASTILLO MD Ot I10 ESSENTIAL (PRIMARY) HYPERTENSION 03/23/2018 JOSHUA CASTILLO MD Ot I25.110 ATHSCL HEART DISEASE OF [place] COR ART W 03/23/2018 JOSHUA CASTILLO MD Ot I25. 82 CHRONIC TOTAL OCCLUSION OF CORONARY TOM 03/23/2018 JOSHUA CASTILLO MD Ot I65. 23 OCCLUSION AND STENOSIS OF BILATERAL BREWER 03/23/2018 JOSHUA CASTILLO MD Ot J44. 9 CHRONIC OBSTRUCTIVE PULMONARY DISEASE, U 03/23/2018 JOSHUA CASTILLO MD Ot N28. 9 DISORDER OF KIDNEY AND URETER, UNSPECIFI 03/23/2018 JOSHUA CASTILLO MD Ot Z87.891 PERSONAL HISTORY OF NICOTINE DEPENDENCE 03/23/2018 JOSHUA CASTILLO MD Ot Z95. 5 PRESENCE OF CORONARY ANGIOPLASTY IMPLANT 03/23/2018 JOSHUA CASTILLO MD Ot Z95.820 PERIPHERAL VASCULAR ANGIOPLASTY STATUS W 03/23/2018 JOSHUA CASTILLO MD Ot Z99. 81 DEPENDENCE ON SUPPLEMENTAL OXYGEN 03/25/2018 JOSHUA CASTILLO MD Ot E78. 5 HYPERLIPIDEMIA, UNSPECIFIED 03/25/2018 JOSHUA CASTILLO MD Ot I08. 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 82 CHRONIC TOTAL OCCLUSION OF CORONARY TOM 03/25/2018 JOSHUA CASTILLO MD Ot I65. 23 OCCLUSION AND STENOSIS OF BILATERAL BREWER 03/25/2018 JOSHUA CASTILLO MD Ot J44. 9 CHRONIC OBSTRUCTIVE PULMONARY DISEASE, U 03/25/2018 JOSHUA CASTILLO MD Ot N28. 9 DISORDER OF KIDNEY AND URETER, UNSPECIFI 03/25/2018 JOSHUA CASTILLO MD Ot Z87.891 PERSONAL HISTORY OF NICOTINE DEPENDENCE 03/25/2018 JOSHUA CASTILLO MD Ot Z95. 5 PRESENCE OF CORONARY ANGIOPLASTY IMPLANT 03/25/2018 JOSHUA CASTILLO MD, Ot Z95.820 PERIPHERAL VASCULAR ANGIOPLASTY STATUS W 03/25/2018 JOSHUA CASTILLO MD, Ot Z99. 81 DEPENDENCE ON SUPPLEMENTAL OXYGEN 04/22/2018 W 414.01 COR ONARY ATHEROSCLEROSIS OF [place] CORONARY ARTERY 04/22/2018 W 491.20 OBS TRUCTIVE CHRONIC BRONCHITIS, WITHOUT 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 04/22/2018 W 715.15 OST EOARTHROSIS, LOCALIZED, PRIMARY, INVOLVING PELVIC REGION AND THIGH 04/22/2018 W 715.16 OST EOARTHROSIS, LOCALIZED, PRIMARY, INVOLVING LOWER LEG 04/22/2018 W 726.13 PAR TIAL TEAR OF ROTATOR CUFF 04/22/2018 W 728.87 MUS YELITZA WEAKNESS (GENERALIZED) 04/22/2018 W 799.02 HYP OXEMIA 04/22/2018 W I25.10 ATH EROSCLEROTIC HEART DISEASE OF [place] CORONARY ARTERY WITHOUT ANGINA PECTORIS 04/22/2018 W J44.9 MAINTENANCE CONSTRUCTION HELPER JIMMIE OBSTRUCTIVE PULMONARY DISEASE, UNSPECIFIED 04/22/2018 W M16.11 UNI LATERAL PRIMARY OSTEOARTHRITIS, RIGHT HIP 04/22/2018 W M16.12 UNI LATERAL PRIMARY OSTEOARTHRITIS, LEFT HIP 04/22/2018 W M17.11 UNI LATERAL PRIMARY OSTEOARTHRITIS, RIGHT KNEE 04/22/2018 W M17.12 UNI LATERAL PRIMARY OSTEOARTHRITIS, LEFT KNEE 04/22/2018 W M62.81 MUS YELITZA WEAKNESS (GENERALIZED) 04/22/2018 W M75.111 IN COMPLETE ROTATOR CUFF TEAR OR RUPTURE OF RIGHT SHOULDER, NOT SPECIFIED TRAUMATIC 04/22/2018 W R09.02 HYP OXEMIA 04/25/2018 ANTOINETTE SANDHU MD Ot E78.00 PURE HYPERCHOLESTEROLEMIA, UNSPECIFIED 04/25/2018 ANTOINETTE SANDHU MD Ot F20.9 SCHIZOPHRENIA, UNSPECIFIED 04/25/2018 ANTOINETTE SANDHU MD Ot F32.9 MAJOR DEPRESSIVE DISORDER, SINGLE EPISOD 04/25/2018 ANTOINETTE SANDHU MD Ot I10 ESSENTIAL (PRIMARY) HYPERTENSION 04/25/2018 ANTOINETTE SANDHU MD Ot I25.10 ATHSCL HEART DISEASE OF [place] CORONARY 04/25/2018 ANTOINETTE SANDHU MD Ot I25.2 OLD MYOCARDIAL INFARCTION 04/25/2018 ANTOINETTE SANDHU MD, Ot J44.9 CHRONIC OBSTRUCTIVE PULMONARY DISEASE, U 04/25/2018 ANTOINETTE SANDHU MD, Ot K21.9 GASTRO-ESOPHAGEAL REFLUX DISEASE WITHOUT 04/25/2018 ANTOINETTE SANDHU MD, Ot M25.474 EFFUSION, RIGHT FOOT 04/25/2018 ANTOINETTE SANDHU MD, Ot M25.571 PAIN IN RIGHT ANKLE AND JOINTS OF RIGHT 04/25/2018 ANTOINETTE SANDHU MD Ot Z79.02 HALFWAY (CURRENT) USE OF ANTITHROMBOTI 04/25/2018 ANTONIETTE SANDHU MD, Ot Z79.51 NURSES ASSISTANT (CURRENT) USE OF INHALED STERO 04/25/2018 ANTOINETTE SANDHU MD, Ot Z79.82 HALFWAY (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 04/25/2018 ANTOINETTE SANDHU MD, Ot Z82.49 FAMILY HX OF ISCHEM HEART DIS AND OTH DI 04/25/2018 ANTOINETTE SANDHU MD, Ot Z86.718 PERSONAL HISTORY OF OTHER VENOUS THROMBO 04/25/2018 ANTOINETTE SANDHU MD, Ot Z87.01 PERSONAL HISTORY OF PNEUMONIA (RECURRENT 04/25/2018 ANTOINETTE SANDHU MD, Ot Z87.19 PERSONAL HISTORY OF OTHER DISEASES OF TH 04/25/2018 ANTOINETTE SANDHU MD, Ot Z87.891 PERSONAL HISTORY OF NICOTINE DEPENDENCE 04/25/2018 ANTOINETTE SANDHU MD, Ot Z88.6 ALLERGY STATUS TO ANALGESIC AGENT STATUS 04/25/2018 ANTOINETTE SANDHU MD, Ot Z88.7 ALLERGY STATUS TO SERUM AND VACCINE STAT 04/25/2018 ANTOINETTE SANDHU MD, Ot Z88.8 ALLERGY STATUS TO [facility] DRUG/MEDS/BIOL SUB 04/25/2018 ANTOINETTE SANDHU MD Ot Z90.89 ACQUIRED ABSENCE OF OTHER ORGANS 04/25/2018 ANTOINETTE SANDHU MD Ot Z95.5 PRESENCE OF CORONARY ANGIOPLASTY IMPLANT 04/25/2018 ANTOINETTE SANDHU MD Ot Z98.61 CORONARY ANGIOPLASTY STATUS 04/28/2018 ANTOINETTE SANDHU MD Ot E78.00 PURE HYPERCHOLESTEROLEMIA, UNSPECIFIED 04/28/2018 ANTOINETTE SANDHU MD Ot F20.9 SCHIZOPHRENIA, UNSPECIFIED 04/28/2018 ANTOINETTE SANDHU MD Ot F32.9 MAJOR DEPRESSIVE DISORDER, SINGLE EPISOD 04/28/2018 ANTOINETTE SANDHU MD Ot I10 ESSENTIAL (PRIMARY) HYPERTENSION 04/28/2018 ANTOINETTE SANDHU MD, Ot I25.10 ATHSCL HEART DISEASE OF [place] CORONARY 04/28/2018 ANTOINETTE SANDHU MD, Ot I25.2 OLD MYOCARDIAL INFARCTION 04/28/2018 ANTOINETTE SANDHU MD, Ot J44.9 CHRONIC OBSTRUCTIVE PULMONARY DISEASE, U 04/28/2018 ANTOINETTE SANDHU MD, Ot K21.9 GASTRO-ESOPHAGEAL REFLUX DISEASE WITHOUT 04/28/2018 ANTOINETTE SANDHU MD, Ot M25.474 EFFUSION, RIGHT FOOT 04/28/2018 ANTOINETTE SANDHU MD, Ot M25.571 PAIN IN RIGHT ANKLE AND JOINTS OF RIGHT 04/28/2018 ANTOINETTE SANDHU MD, Ot Z79.02 NURSES ASSISTANT (CURRENT) USE OF ANTITHROMBOTI 04/28/2018 ANTOINETTE SANDHU MD, Ot Z79.51 HALFWAY (CURRENT) USE OF INHALED STERO 04/28/2018 ANTOINETTE SANDHU MD, Ot Z79.82 HALFWAY (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 04/28/2018 ANTOINETTE SANDHU MD, Ot Z82.49 FAMILY HX OF ISCHEM HEART DIS AND OTH DI 04/28/2018 ANTOINETTE SANDHU MD, Ot Z86.718 PERSONAL HISTORY OF OTHER VENOUS THROMBO 04/28/2018 ANTOINETTE SANDHU MD Ot Z87.01 PERSONAL HISTORY OF PNEUMONIA (RECURRENT 04/28/2018 ANTOINETTE SANDHU MD, Ot Z87.19 PERSONAL HISTORY OF OTHER DISEASES OF TH 04/28/2018 ANTOINETTE SANDHU MD, Ot Z87.891 PERSONAL HISTORY OF NICOTINE DEPENDENCE 04/28/2018 ANTOINETTE SANDHU MD, Ot Z88.6 ALLERGY STATUS TO ANALGESIC AGENT STATUS 04/28/2018 ANTOINETTE SANDHU MD, Ot Z88.7 ALLERGY STATUS TO SERUM AND VACCINE STAT 04/28/2018 ANTOINETTE SANDHU MD, Ot Z88.8 ALLERGY STATUS TO OT DRUG/MEDS/BIOL SUB 04/28/2018 ANTOINETTE SANDHU MD, Ot Z90.89 ACQUIRED ABSENCE OF OTHER ORGANS 04/28/2018 ANTOINETTE SANDHU MD Ot Z95.5 PRESENCE OF CORONARY ANGIOPLASTY IMPLANT 04/28/2018 PHOEBE CRANE, ANTOINETTE Bartlett Ot Z98.61 CORONARY ANGIOPLASTY STATUS 06/05/2018 JONATHAN CRANE, JOSHUA Rausch Ot I20. 8 OTHER FORMS OF ANGINA PECTORIS 06/15/2018 JONATHAN CRANE, JOSHUA Rausch Ot I20. 8 OTHER FORMS OF ANGINA PECTORIS 06/30/2018 MARGARITA ROBERTSON Ot E78.00 PURE HYPERCHOLESTEROLEMIA, UNSPECIFIED 06/30/2018 MARGARITA ROBERTSONP Ot F20.9 SCHIZOPHRENIA, UNSPECIFIED 06/30/2018 AILYNMARGARITA CartagenaP Ot F32.9 MAJOR DEPRESSIVE DISORDER, SINGLE EPISOD 06/30/2018 MARGARITA ROBERTSONP Ot I10 ESSENTIAL (PRIMARY) HYPERTENSION 06/30/2018 MARGARITA ROBERTSONP Ot I25.10 ATHSCL HEART DISEASE OF [place] CORONARY 06/30/2018 MARGARITA ROBERTSONP Ot I25.2 OLD MYOCARDIAL INFARCTION 06/30/2018 MARGARITA ROBERTSONP Ot I73.9 PERIPHERAL VASCULAR DISEASE, UNSPECIFIED 06/30/2018 MARGARITA ROBERTSONP Ot J18.1 LOBAR PNEUMONIA, UNSPECIFIED ORGANISM 06/30/2018 MARGARITA ROBERTSONP Ot J44.9 CHRONIC OBSTRUCTIVE PULMONARY DISEASE, U 06/30/2018 MARGARITA ROBERTSONP Ot K21.9 GASTRO-ESOPHAGEAL REFLUX DISEASE WITHOUT 06/30/2018 MARGARITA ROBERTSONP Ot R06.02 SHORTNESS OF BREATH 06/30/2018 MARGARITA ROBERTSONP Ot Z79.02 NURSES ASSISTANT (CURRENT) USE OF ANTITHROMBOTI 06/30/2018 MARGARITA ROBERTSONP Ot Z79.51 HALFWAY (CURRENT) USE OF INHALED STERO 06/30/2018 MARGARITA ROBERTSONP Ot Z79.52 HALFWAY (CURRENT) USE OF SYSTEMIC STER 06/30/2018 MARGARITA ROBERTSONP Ot Z79.82 HALFWAY (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 06/30/2018 MARGARITA ROBERTSONP Ot Z82.49 FAMILY HX OF ISCHEM HEART DIS AND OTH DI 06/30/2018 MARGARITA ROBERTSON FURNITURE MOVER HELPER Ot Z86.718 PERSONAL HISTORY OF OTHER VENOUS THROMBO 06/30/2018 MARGARITA ROBERTSON FURNITURE MOVER HELPER Ot Z86.73 PRSNL HX OF TIA (TIA), AND CEREB INFRC W 06/30/2018 MARGARITA ROBERTSONP Ot Z87.01 PERSONAL HISTORY OF PNEUMONIA (RECURRENT 06/30/2018 MARGARITA ROBERTSON Ot Z87.19 PERSONAL HISTORY OF OTHER DISEASES OF TH 06/30/2018 MARGARITA ROBERTSON Ot Z87.891 PERSONAL HISTORY OF NICOTINE DEPENDENCE 06/30/2018 MARGARITA ROBERTSON Ot Z88.7 ALLERGY STATUS TO SERUM AND VACCINE STAT 06/30/2018 MARGARITA ROBERTSON Ot Z88.8 ALLERGY STATUS TO OTH DRUG/MEDS/BIOL SUB 06/30/2018 MARGARITA ROBERTSON Ot Z95.1 PRESENCE OF AORTOCORONARY BYPASS GRAFT 06/30/2018 MARGARITA ROBERTSON Ot Z95.5 PRESENCE OF CORONARY ANGIOPLASTY IMPLANT 06/30/2018 MARGARITA ROBERTSON Ot Z95.820 PERIPHERAL VASCULAR ANGIOPLASTY STATUS W 06/30/2018 MARGARITA ROBERTSON Ot Z98.890 OTHER SPECIFIED POSTPROCEDURAL STATES 06/30/2018 W 491.21 OBS TRUCTIVE CHRONIC BRONCHITIS WITH (ACUTE) 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 06/30/2018 W 799.02 HYP OXEMIA 06/30/2018 W J44.1 MAINTENANCE CONSTRUCTION HELPER JIMMIE OBSTRUCTIVE PULMONARY DISEASE WITH (ACUTE) 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 06/30/2018 W R09.02 HYP OXEMIA 07/02/2018 MARGARITA ROBERTSONP Ot E78.00 PURE HYPERCHOLESTEROLEMIA, UNSPECIFIED 07/02/2018 MARGARITA ROBERTSONP Ot F20.9 SCHIZOPHRENIA, UNSPECIFIED 07/02/2018 MARGARITA ROBERTSONP Ot F32.9 MAJOR DEPRESSIVE DISORDER, SINGLE EPISOD 07/02/2018 MARGARITA ROBERTSONP Ot I10 ESSENTIAL (PRIMARY) HYPERTENSION 07/02/2018 MARGARITA ROBERTSONP Ot I25.10 ATHSCL HEART DISEASE OF [place] CORONARY 07/02/2018 MARGARITA ROBERTSONP Ot I25.2 OLD MYOCARDIAL INFARCTION 07/02/2018 MARGARITA ROBERTSONP Ot I73.9 PERIPHERAL VASCULAR DISEASE, UNSPECIFIED 07/02/2018 MARGARITA ROBERTSONP Ot J18.1 LOBAR PNEUMONIA, UNSPECIFIED ORGANISM 07/02/2018 MARGARITA ROBERTSONP Ot J44.9 CHRONIC OBSTRUCTIVE PULMONARY DISEASE, U 07/02/2018 MARGARITA ROBERTSONP Ot K21.9 GASTRO-ESOPHAGEAL REFLUX DISEASE WITHOUT 07/02/2018 MARGARITA ROBERTSONP Ot R06.02 SHORTNESS OF BREATH 07/02/2018 MARGARITA ROBERTSON Ot Z79.02 NURSES ASSISTANT (CURRENT) USE OF ANTITHROMBOTI 07/02/2018 MARGARITA ROBERTSON Ot Z79.51 NURSES ASSISTANT (CURRENT) USE OF INHALED STERO 07/02/2018 MARGARITA ROBERTSON Ot Z79.52 HALFWAY (CURRENT) USE OF SYSTEMIC STER 07/02/2018 MARGARITA ROBERTSON Ot Z79.82 HALFWAY (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 07/02/2018 MARGARITA ROBERTSON Ot Z82.49 FAMILY HX OF ISCHEM HEART DIS AND OTH DI 07/02/2018 MARGARITA ROBERTSON Ot Z86.718 PERSONAL HISTORY OF OTHER VENOUS THROMBO 07/02/2018 MARGARITA ROBERTSON Ot Z86.73 PRSNL HX OF TIA (TIA), AND CEREB INFRC W 07/02/2018 MARGARITA ROBERTSON Ot Z87.01 PERSONAL HISTORY OF PNEUMONIA (RECURRENT 07/02/2018 MARGARITA ROBERTSON Ot Z87.19 PERSONAL HISTORY OF OTHER DISEASES OF TH 07/02/2018 MARGARITA ROBERTSON Ot Z87.891 PERSONAL HISTORY OF NICOTINE DEPENDENCE 07/02/2018 MARGARITA ROBERTSON Ot Z88.7 ALLERGY STATUS TO SERUM AND VACCINE STAT 07/02/2018 MARGARITA ROBERTSON Ot Z88.8 ALLERGY STATUS TO [facility] DRUG/MEDS/BIOL SUB 07/02/2018 MARGARITA ROBERTSON Ot Z95.1 PRESENCE OF AORTOCORONARY BYPASS GRAFT 07/02/2018 MARGARITA ROBERTSON Ot Z95.5 PRESENCE OF CORONARY ANGIOPLASTY IMPLANT 07/02/2018 MARGARITA ROBERTSON Ot Z95.820 PERIPHERAL VASCULAR ANGIOPLASTY STATUS W 07/02/2018 MARGARITA ROBERTSON Ot Z98.890 OTHER SPECIFIED POSTPROCEDURAL STATES 07/03/2018 A 486 PNEUMO NIRAV, ORGANISM UNSPECIFIED 07/03/2018 W 491.21 OBS TRUCTIVE CHRONIC BRONCHITIS WITH (ACUTE) 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 07/03/2018 W 799.02 HYP OXEMIA 07/03/2018 A J18.9 PNEU MONIA, UNSPECIFIED ORGANISM 07/03/2018 W J44.1 MAINTENANCE CONSTRUCTION HELPER JIMMIE OBSTRUCTIVE PULMONARY DISEASE WITH (ACUTE) 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 07/03/2018 W R09.02 HYP OXEMIA 07/06/2018 MARGARITA ROBERTSONP Ot E78.00 PURE HYPERCHOLESTEROLEMIA, UNSPECIFIED 07/06/2018 MARGARITA ROBERTSONP Ot F20.9 SCHIZOPHRENIA, UNSPECIFIED 07/06/2018 MARGARITA ROBERTSON Ot F32.9 MAJOR DEPRESSIVE DISORDER, SINGLE EPISOD 07/06/2018 MARGARITA ROBERTSON Ot I10 ESSENTIAL (PRIMARY) HYPERTENSION 07/06/2018 MARGARITA ROBERTSON Ot I25.10 ATHSCL HEART DISEASE OF [place] CORONARY 07/06/2018 MARGARITA ROBERTSON Ot I25.2 OLD MYOCARDIAL INFARCTION 07/06/2018 MARGARITA ROBERTSONP Ot I73.9 PERIPHERAL VASCULAR DISEASE, UNSPECIFIED 07/06/2018 MARGARITA ROBERTSONP Ot J18.1 LOBAR PNEUMONIA, UNSPECIFIED ORGANISM 07/06/2018 MARGARITA ROBERTSONP Ot J44.9 CHRONIC OBSTRUCTIVE PULMONARY DISEASE, U 07/06/2018 MARGARITA ROBERTSON Ot K21.9 GASTRO-ESOPHAGEAL REFLUX DISEASE WITHOUT 07/06/2018 MARGARITA ROBERTSONP Ot R06.02 SHORTNESS OF BREATH 07/06/2018 MARGARITA ROBERTSON Ot Z79.02 HALFWAY (CURRENT) USE OF ANTITHROMBOTI 07/06/2018 MARGARITA ROBERTSON Ot Z79.51 HALFWAY (CURRENT) USE OF INHALED STERO 07/06/2018 MARGARITA ROBERTSONP Ot Z79.52 HALFWAY (CURRENT) USE OF SYSTEMIC STER 07/06/2018 MARGARITA ROBERTSONP Ot Z79.82 NURSES ASSISTANT (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 07/06/2018 MARGARITA ROBERTSONP Ot Z82.49 FAMILY HX OF ISCHEM HEART DIS AND OTH DI 07/06/2018 MARGARITA ROBERTSONP Ot Z86.718 PERSONAL HISTORY OF OTHER VENOUS THROMBO 07/06/2018 MARGARITA ROBERTSONP Ot Z86.73 PRSNL HX OF TIA (TIA), AND CEREB INFRC W 07/06/2018 MARGARITA ROBERTSONP Ot Z87.01 PERSONAL HISTORY OF PNEUMONIA (RECURRENT 07/06/2018 MARGARITA ROBERTSON Ot Z87.19 PERSONAL HISTORY OF OTHER DISEASES OF TH 07/06/2018 MARGARITA ROBERTSONP Ot Z87.891 PERSONAL HISTORY OF NICOTINE DEPENDENCE 07/06/2018 MARGARITA ROBERTSONP Ot Z88.7 ALLERGY STATUS TO SERUM AND VACCINE STAT 07/06/2018 MARGARITA ROBERTSONP Ot Z88.8 ALLERGY STATUS TO [facility] DRUG/MEDS/BIOL SUB 07/06/2018 MARGARITA ROBERTSONP Ot Z95.1 PRESENCE OF AORTOCORONARY BYPASS GRAFT 07/06/2018 MARGARITA ROBERTSONP Ot Z95.5 PRESENCE OF CORONARY ANGIOPLASTY IMPLANT 07/06/2018 MARGARITA ROBERTSONP Ot Z95.820 PERIPHERAL VASCULAR ANGIOPLASTY STATUS W 07/06/2018 MARGARITA ROBERTSONP Ot Z98.890 OTHER SPECIFIED POSTPROCEDURAL STATES 07/09/2018 W 486 PNEUMO NIRAV, ORGANISM UNSPECIFIED 07/09/2018 W 491.20 OBS TRUCTIVE CHRONIC BRONCHITIS, WITHOUT 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 07/09/2018 W 491.21 OBS TRUCTIVE CHRONIC BRONCHITIS WITH (ACUTE) 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 07/09/2018 W J18.9 PNEU MONIA, UNSPECIFIED ORGANISM 07/09/2018 W J44.1 MAINTENANCE CONSTRUCTION HELPER JIMMIE OBSTRUCTIVE PULMONARY DISEASE WITH (ACUTE) 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 07/09/2018 W J44.9 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 8 OTHER FORMS OF ANGINA PECTORIS 08/18/2018 JOSHUA CASTILLO MD Ot I25. 10 ATHSCL HEART DISEASE OF [place] CORONARY 08/18/2018 JOSHUA CASTILLO MD Ot I50. 9 HEART FAILURE, UNSPECIFIED 08/18/2018 JOSHUA CASTILLO MD Ot J44. 9 CHRONIC OBSTRUCTIVE PULMONARY DISEASE, U 08/18/2018 JOSHUA CASTILLO MD Ot R06. 02 SHORTNESS OF BREATH 08/20/2018 JOSHUA CASTILLO MD Ot I25. 10 ATHSCL HEART DISEASE OF [place] CORONARY 08/20/2018 JOSHUA CASTILLO MD Ot I50. 9 HEART FAILURE, UNSPECIFIED 08/20/2018 JOSHUA CASTILLO MD, Ot J44. 9 CHRONIC OBSTRUCTIVE PULMONARY DISEASE, U 08/20/2018 JOSHUA CASTILLO MD Ot R06. 02 SHORTNESS OF BREATH 08/20/2018 KAYCEE BAHENA APRN Ot E78.00 PURE HYPERCHOLESTEROLEMIA, UNSPECIFIED 08/20/2018 KAYCEE BAHENA APRN Ot F20 .9 SCHIZOPHRENIA, UNSPECIFIED 08/20/2018 KAYCEE BAHENA APRN Ot F32 .9 MAJOR DEPRESSIVE DISORDER, SINGLE EPISOD 08/20/2018 KAYCEE BAHENA APRN Ot I10 ESSENTIAL (PRIMARY) HYPERTENSION 08/20/2018 KAYCEE BAHENA APRN Ot I25.10 ATHSCL HEART DISEASE OF [place] CORONARY 08/20/2018 KAYCEE BAHENA APRN Ot I25 .2 OLD MYOCARDIAL INFARCTION 08/20/2018 KAYCEE BAHENA APRN Ot I73 .9 PERIPHERAL VASCULAR DISEASE, UNSPECIFIED 08/20/2018 KAYCEE BAHENA APRN Ot J44 .9 CHRONIC OBSTRUCTIVE PULMONARY DISEASE, U 08/20/2018 KAYCEE BAHENA APRN Ot K21 .9 GASTRO-ESOPHAGEAL REFLUX DISEASE WITHOUT 08/20/2018 KAYCEE BAHENA APRN Ot R40.2142 COMA SCALE, EYES OPEN, SPONTANEOUS, EMR 08/20/2018 KAYCEE BAHENA APRN Ot R40.2252 COMA SCALE, BEST VERBAL RESPONSE, ORIENT 08/20/2018 KAYCEE BAHENA APRN Ot R40.2362 COMA SCALE, BEST MOTOR RESPONSE, OBEYS C 08/20/2018 KAYCEE BAHENA APRN Ot R51 HEADACHE 08/20/2018 KAYCEE BAHENA APRN Ot W01.0XXA FALL SAME LEV FROM SLIP/TRIP W/O STRIKE 08/20/2018 KAYCEE BAHENA APRN Ot Z79.02 HALFWAY (CURRENT) USE OF ANTITHROMBOTI 08/20/2018 KAYCEE BAHENA APRN Ot Z79.51 NURSES ASSISTANT (CURRENT) USE OF INHALED STERO 08/20/2018 KAYCEE BAHENA APRN Ot Z79.52 HALFWAY (CURRENT) USE OF SYSTEMIC STER 08/20/2018 KAYCEE BAHENA APRN Ot Z79.82 HALFWAY (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 08/20/2018 KAYCEE BAHENA APRN Ot Z82.49 FAMILY HX OF ISCHEM HEART DIS AND OTH DI 08/20/2018 KAYCEE BAHENA APRN Ot Z86.718 PERSONAL HISTORY OF OTHER VENOUS THROMBO 08/20/2018 KAYCEE BAHENA APRN Ot Z86.73 PRSNL HX OF TIA (TIA), AND CEREB INFRC W 08/20/2018 KAYCEE BAHENA APRN Ot Z87.01 PERSONAL HISTORY OF PNEUMONIA (RECURRENT 08/20/2018 KAYCEE BAHENA APRN, Ot Z87.19 PERSONAL HISTORY OF OTHER DISEASES OF TH 08/20/2018 KAYCEE BAHENA APRN Ot Z87.891 PERSONAL HISTORY OF NICOTINE DEPENDENCE 08/20/2018 KAYCEE BAHENA APRN Ot Z88 .7 ALLERGY STATUS TO SERUM AND VACCINE STAT 08/20/2018 KAYCEE BAHENA APRN Ot Z90.89 ACQUIRED ABSENCE OF OTHER ORGANS 08/20/2018 KAYCEE BAHENA APRN Ot Z95 .1 PRESENCE OF AORTOCORONARY BYPASS GRAFT 08/20/2018 KAYCEE BAHENA APRN Ot Z95 .5 PRESENCE OF CORONARY ANGIOPLASTY IMPLANT 08/20/2018 KAYCEE BAHENA APRN Ot Z95.820 PERIPHERAL VASCULAR ANGIOPLASTY STATUS W 08/20/2018 KAYCEE BAHENA APRN Ot Z98.890 OTHER SPECIFIED POSTPROCEDURAL STATES 08/20/2018 KAYCEE BAHENA APRN Ot Z99.81 DEPENDENCE ON SUPPLEMENTAL OXYGEN 08/21/2018 W 354.0 CARP AL TUNNEL SYNDROME 08/21/2018 W G56.01 CAR PAL TUNNEL SYNDROME, RIGHT UPPER LIMB 08/21/2018 W G56.02 CAR PAL TUNNEL SYNDROME, LEFT UPPER LIMB 08/26/2018 KAYCEE BAHENA APRN Ot E78.00 PURE HYPERCHOLESTEROLEMIA, UNSPECIFIED 08/26/2018 KAYCEE BAHENA APRN Ot F20 .9 SCHIZOPHRENIA, UNSPECIFIED 08/26/2018 KAYCEE BAHENA APRN Ot F32 .9 MAJOR DEPRESSIVE DISORDER, SINGLE EPISOD 08/26/2018 KAYCEE BAHENA APRN Ot I10 ESSENTIAL (PRIMARY) HYPERTENSION 08/26/2018 KAYCEE BAHENA APRN Ot I25.10 ATHSCL HEART DISEASE OF [place] CORONARY 08/26/2018 KAYCEE BAHENA APRN Ot I25 .2 OLD MYOCARDIAL INFARCTION 08/26/2018 KAYCEE BAHENA APRN Ot I73 .9 PERIPHERAL VASCULAR DISEASE, UNSPECIFIED 08/26/2018 KAYCEE BAHENA APRN, Ot J44 .9 CHRONIC OBSTRUCTIVE PULMONARY DISEASE, U 08/26/2018 KAYCEE BAHENA APRN Ot K21 .9 GASTRO-ESOPHAGEAL REFLUX DISEASE WITHOUT 08/26/2018 KAYCEE BAHENA APRN Ot R40.2142 COMA SCALE, EYES OPEN, SPONTANEOUS, EMR 08/26/2018 KAYCEE BAHENA APRN Ot R40.2252 COMA SCALE, BEST VERBAL RESPONSE, ORIENT 08/26/2018 KAYCEE BAHENA APRN Ot R40.2362 COMA SCALE, BEST MOTOR RESPONSE, OBEYS C 08/26/2018 KAYCEE BAHENA APRN Ot R51 HEADACHE 08/26/2018 KAYCEE BAHENA APRN Ot W01.0XXA FALL SAME LEV FROM SLIP/TRIP W/O STRIKE 08/26/2018 KAYCEE BAHENA APRN Ot Z79.02 HALFWAY (CURRENT) USE OF ANTITHROMBOTI 08/26/2018 KAYCEE BAHENA APRN Ot Z79.51 HALFWAY (CURRENT) USE OF INHALED STERO 08/26/2018 KAYCEE BAHENA APRN Ot Z79.52 HALFWAY (CURRENT) USE OF SYSTEMIC STER 08/26/2018 KAYCEE BAHENA APRN Ot Z79.82 NURSES ASSISTANT (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 08/26/2018 KAYCEE BAHENA APRN Ot Z82.49 FAMILY HX OF ISCHEM HEART DIS AND OTH DI 08/26/2018 KAYCEE BAHENA APRN Ot Z86.718 PERSONAL HISTORY OF OTHER VENOUS THROMBO 08/26/2018 KAYCEE BAHENA APRN Ot Z86.73 PRSNL HX OF TIA (TIA), AND CEREB INFRC W 08/26/2018 KAYCEE BAHENA APRN Ot Z87.01 PERSONAL HISTORY OF PNEUMONIA (RECURRENT 08/26/2018 KAYCEE BAHENA APRN Ot Z87.19 PERSONAL HISTORY OF OTHER DISEASES OF TH 08/26/2018 KAYCEE BAHENA APRN Ot Z87.891 PERSONAL HISTORY OF NICOTINE DEPENDENCE 08/26/2018 KAYCEE BAHENA APRN Ot Z88 .7 ALLERGY STATUS TO SERUM AND VACCINE STAT 08/26/2018 KAYCEE BAHENA APRN Ot Z90.89 ACQUIRED ABSENCE OF OTHER ORGANS 08/26/2018 KAYCEE BAHENA APRN Ot Z95 .1 PRESENCE OF AORTOCORONARY BYPASS GRAFT 08/26/2018 KAYCEE BAHENA APRN Ot Z95 .5 PRESENCE OF CORONARY ANGIOPLASTY IMPLANT 08/26/2018 KAYCEE BAHENA APRN Ot Z95.820 PERIPHERAL VASCULAR ANGIOPLASTY STATUS W 08/26/2018 KAYCEE BAHENA APRN Ot Z98.890 OTHER SPECIFIED POSTPROCEDURAL STATES 08/26/2018 KAYCEE BAHENA APRN Ot Z99.81 DEPENDENCE ON SUPPLEMENTAL OXYGEN 09/03/2018 JOSHUA CASTILLO MD Ot I25. 10 ATHSCL HEART DISEASE OF [place] CORONARY 09/03/2018 JOSHUA CASTILLO MD Ot I50. 9 HEART FAILURE, UNSPECIFIED 09/03/2018 JOSHUA CASTILLO MD Ot J44. 9 CHRONIC OBSTRUCTIVE PULMONARY DISEASE, U 09/03/2018 JOSHUA CASTILLO MD Ot R06. 02 SHORTNESS OF BREATH 09/03/2018 W 354.0 CARP AL TUNNEL SYNDROME 09/03/2018 W 491.21 OBS TRUCTIVE CHRONIC BRONCHITIS WITH (ACUTE) 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 09/03/2018 W 682.2 CELL ULITIS AND ABSCESS OF TRUNK 09/03/2018 W G56.01 CAR PAL TUNNEL SYNDROME, RIGHT UPPER LIMB 09/03/2018 W J44.1 MAINTENANCE CONSTRUCTION HELPER JIMMIE OBSTRUCTIVE PULMONARY DISEASE WITH (ACUTE) 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 09/03/2018 W L02.211 CU TANEOUS ABSCESS OF ABDOMINAL WALL 09/08/2018 W 491.21 OBS TRUCTIVE CHRONIC BRONCHITIS WITH (ACUTE) 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 09/08/2018 W J44.1 MAINTENANCE CONSTRUCTION HELPER JIMMIE OBSTRUCTIVE PULMONARY DISEASE WITH (ACUTE) 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 09/15/2018 JOSHUA CASTILLO MD Ot I20. 8 OTHER FORMS OF ANGINA PECTORIS 09/17/2018 JOSHUA CASTILLO MD Ot I25. 10 ATHSCL HEART DISEASE OF [place] CORONARY 09/17/2018 JOSHUA CASTILLO MD Ot I50. 9 HEART FAILURE, UNSPECIFIED 09/17/2018 JOSHUA CASTILLO MD Ot J44. 9 CHRONIC OBSTRUCTIVE PULMONARY DISEASE, U 09/17/2018 JOSHUA CASTILLO MD Ot R06. 02 SHORTNESS OF BREATH 10/02/2018 JOSHUA CASTILLO MD Ot I20. 8 OTHER FORMS OF ANGINA PECTORIS 10/21/2018 JOSHUA CASTILLO MD Ot 311 DEPRESSIVE DISORDER NEC 10/21/2018 JOSHUA CASTILLO MD Ot 401. 9 HYPERTENSION NOS 10/21/2018 JOSHUA CASTILLO MD Ot 414. 00 CORON ATHEROSCLER NOS TYPE VESSEL, NATIV 10/21/2018 JOSHUA CASTILLO MD Ot 428. 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 09 RESPIRATORY ABNORM NEC 10/21/2018 Ot 300.00 ANX IETY STATE NOS 10/21/2018 Ot 414.00 COR ON ATHEROSCLER NOS TYPE VESSEL, NATIV 10/21/2018 Ot 496 CHR AI RWAY OBSTRUCT NEC 10/21/2018 Ot V57.89 PRIYANKA ABILITATION PROC NEC 10/21/2018 JOSHUA CASTILLO MD Ot 272. 4 HYPERLIPIDEMIA NEC/NOS 10/21/2018 JOSHUA CASTILLO MD Ot 401. 9 HYPERTENSION NOS 10/21/2018 JOSHUA CASTILLO MD Ot 414. 00 CORON ATHEROSCLER NOS TYPE VESSEL, NATIV 10/21/2018 JOSHUA CASTILLO MD Ot 786. 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 4 HYPERLIPIDEMIA NEC/NOS 10/21/2018 JOSHUA CASTILLO MD Ot 401. 9 HYPERTENSION NOS 10/21/2018 JOSHUA CASTILLO MD Ot 414. 00 CORON ATHEROSCLER NOS TYPE VESSEL, NATIV 10/21/2018 JOSHUA CASTILLO MD Ot 428. 0 CONGESTIVE HEART FAILURE NOS 10/21/2018 JOSHUA CASTILLO MD Ot 433. 10 CAROTID ARTERY OCCLUSION W O CEREBRAL IN 10/21/2018 CATE HERRERA APRN Ot J44.9 CHRONIC OBSTRUCTIVE PULMONARY DISEASE, U 10/21/2018 JING HOLGUIN DO Ot M54.16 RADICULOPATHY, LUMBAR REGION 10/21/2018 YOUNG MCALLISTER Ot E78.2 MIXED HYPERLIPIDEMIA 10/21/2018 YOUNG MCALLISTER Ot I10 ESSENTIAL (PRIMARY) HYPERTENSION 10/21/2018 YOUNG MCALLISTER Ot I25.10 ATHSCL HEART DISEASE OF [place] CORONARY 10/21/2018 JOSHUA CASTILLO MD Ot E78. 2 MIXED HYPERLIPIDEMIA 10/21/2018 JOSHUA CASTILLO MD Ot F41. 9 ANXIETY DISORDER, UNSPECIFIED 10/21/2018 JOSHUA CASTILLO MD Ot I10 ESSENTIAL (PRIMARY) HYPERTENSION 10/21/2018 JOSHUA CASTILLO MD Ot I25. 10 ATHSCL HEART DISEASE OF [place] CORONARY 10/21/2018 JOSHUA CASTILLO MD Ot R07. 89 OTHER CHEST PAIN 10/21/2018 JOSHUA CASTILLO MD Ot Z72. 0 TOBACCO USE 10/21/2018 JOSHUA CASTILLO MD Ot E78. 5 HYPERLIPIDEMIA, UNSPECIFIED 10/21/2018 JOSHUA CASTILLO MD Ot F41. 9 ANXIETY DISORDER, UNSPECIFIED 10/21/2018 JOSHUA CASTILLO MD Ot I10 ESSENTIAL (PRIMARY) HYPERTENSION 10/21/2018 JOSHUA CASTILLO MD Ot I25. 10 ATHSCL HEART DISEASE OF [place] CORONARY 10/21/2018 JOSHUA CASTILLO MD Ot R07. 89 OTHER CHEST PAIN 10/21/2018 JOSHUA CASTILLO MD Ot Z72. 0 TOBACCO USE 10/21/2018 CATE HERRERA APRN Ot J44.9 CHRONIC OBSTRUCTIVE PULMONARY DISEASE, U 10/21/2018 CATE HERRERA WRITER EDITOR Ot R06.02 SHORTNESS OF BREATH 10/21/2018 CATE HERRERA WRITER EDITOR Ot R06.2 WHEEZING 10/21/2018 CATE HERRERA WRITER EDITOR Ot R09.02 HYPOXEMIA 10/21/2018 CATE HERRERA WRITER EDITOR Ot R91.1 SOLITARY PULMONARY NODULE 10/21/2018 CATE HERRERA WRITER EDITOR Ot J44.0 CHRONIC OBSTRUCTIVE PULMON DISEASE W ACU 10/21/2018 CATE HERRERA WRITER EDITOR Ot R06.02 SHORTNESS OF BREATH 10/21/2018 CATE HERRERA WRITER EDITOR Ot R06.2 WHEEZING 10/21/2018 CATE HERRERA WRITER EDITOR Ot R09.02 HYPOXEMIA 10/21/2018 CATE HERRERA WRITER EDITOR Ot R91.1 SOLITARY PULMONARY NODULE 10/21/2018 CATE HERRERA WRITER EDITOR Ot Z72.0 TOBACCO USE 10/21/2018 CELSO FORD GLOBAL ACCOUNT DIRECTOR-C Ot 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 2 MIXED HYPERLIPIDEMIA 10/21/2018 JOSHUA CASTILLO MD Ot I11. 0 HYPERTENSIVE HEART DISEASE WITH HEART FA 10/21/2018 JOSHUA CASTILLO MD Ot I25. 10 ATHSCL HEART DISEASE OF [place] CORONARY 10/21/2018 JOSHUA CASTILLO MD Ot I50. 9 HEART FAILURE, UNSPECIFIED 10/21/2018 JOSHUA CASTILLO MD Ot E78. 2 MIXED HYPERLIPIDEMIA 10/21/2018 JOSHUA CASTILLO MD Ot I11. 0 HYPERTENSIVE HEART DISEASE WITH HEART FA 10/21/2018 JOSHUA CASTILLO MD Ot I25. 10 ATHSCL HEART DISEASE OF [place] CORONARY 10/21/2018 JOSHUA CASTILLO MD Ot I50. 9 HEART FAILURE, UNSPECIFIED 10/21/2018 CATE HERRERA APRN Ot J18.9 PNEUMONIA, UNSPECIFIED ORGANISM 10/21/2018 CATE HERRERA APRN Ot J44.9 CHRONIC OBSTRUCTIVE PULMONARY DISEASE, U 10/21/2018 CATE HERRERA APRN Ot R91.8 OTHER NONSPECIFIC ABNORMAL FINDING OF MARL[place] 10/21/2018 CATE HERRERA APRN Ot Z72.0 TOBACCO USE 10/21/2018 HORTENCIA LYNN FURNITURE MOVER HELPER Ot M19.011 PRIMARY OSTEOARTHRITIS, RIGHT SHOULDER 10/21/2018 HORTENCIA LYNN FURNITURE MOVER HELPER Ot M75. 81 OTHER SHOULDER LESIONS, RIGHT SHOULDER 10/21/2018 JOSHUA CASTILLO MD Ot I25. 10 ATHSCL HEART DISEASE OF [place] CORONARY 10/21/2018 JOSHUA CASTILLO MD Ot I50. 9 HEART FAILURE, UNSPECIFIED 10/21/2018 JOSHUA CASTILLO MD Ot J44. 9 CHRONIC OBSTRUCTIVE PULMONARY DISEASE, U 10/21/2018 JOSHUA CASTILLO MD Ot R06. 02 SHORTNESS OF BREATH 10/21/2018 JOSHUA CASTILLO MD Ot I20. 8 OTHER FORMS OF ANGINA PECTORIS 10/21/2018 CATE HERRERA APRN Ot Z87.891 PERSONAL HISTORY OF NICOTINE DEPENDENCE 10/23/2018 CATE HERRERA APRN Ot Z87.891 PERSONAL HISTORY OF NICOTINE DEPENDENCE 10/23/2018 CATE HERRERA APRN Ot Z87.891 PERSONAL HISTORY OF NICOTINE DEPENDENCE 10/26/2018 CATE HERRERA APRN Ot F10.20 ALCOHOL DEPENDENCE, UNCOMPLICATED 10/26/2018 CATE HERRERA APRN Ot J44.9 CHRONIC OBSTRUCTIVE PULMONARY DISEASE, U 10/26/2018 CATE HERRERA APRN Ot R91.8 OTHER NONSPECIFIC ABNORMAL FINDING OF [place] 10/26/2018 CATE HERRERA APRN Ot Z87.891 PERSONAL HISTORY OF NICOTINE DEPENDENCE 10/30/2018 IRIS NELSON MD Ot E78.00 PURE HYPERCHOLESTEROLEMIA, UNSPECIFIED 10/30/2018 IRIS NELSON MD Ot F20.9 SCHIZOPHRENIA, UNSPECIFIED 10/30/2018 IRIS NELSON MD, Ot F32.9 MAJOR DEPRESSIVE DISORDER, SINGLE EPISOD 10/30/2018 IRIS NELSON MD Ot I10 ESSENTIAL (PRIMARY) HYPERTENSION 10/30/2018 IRIS NELSON MD, Ot I25.10 ATHSCL HEART DISEASE OF [place] CORONARY 10/30/2018 IRIS NELSON MD, Ot I25.2 OLD MYOCARDIAL INFARCTION 10/30/2018 IRIS NELSON MD Ot I73.9 PERIPHERAL VASCULAR DISEASE, UNSPECIFIED 10/30/2018 IRIS NELSON MD, Ot J44.1 CHRONIC OBSTRUCTIVE PULMONARY DISEASE W 10/30/2018 IRIS NELSON MD, Ot K21.9 GASTRO-ESOPHAGEAL REFLUX DISEASE WITHOUT 10/30/2018 IRIS NELSON MD Ot R07.9 CHEST PAIN, UNSPECIFIED 10/30/2018 IRIS NELSON MD Ot Z79.02 HALFWAY (CURRENT) USE OF ANTITHROMBOTI 10/30/2018 IRIS NELSON MD Ot Z79.51 HALFWAY (CURRENT) USE OF INHALED STERO 10/30/2018 IRIS NELSON MD Ot Z79.52 NURSES ASSISTANT (CURRENT) USE OF SYSTEMIC STER 10/30/2018 IRIS NELSON MD Ot Z79.82 HALFWAY (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 10/30/2018 IRIS NELSON MD Ot Z82.49 FAMILY HX OF ISCHEM HEART DIS AND OTH DI 10/30/2018 IRIS NELSON MD, Ot Z86.718 PERSONAL HISTORY OF OTHER VENOUS THROMBO 10/30/2018 IRIS NELSON MD Ot Z86.73 PRSNL HX OF TIA (TIA), AND CEREB INFRC W 10/30/2018 IRIS NELSON MD, Ot Z87.01 PERSONAL HISTORY OF PNEUMONIA (RECURRENT 10/30/2018 IRIS NELSON MD, Ot Z87.19 PERSONAL HISTORY OF OTHER DISEASES OF TH 10/30/2018 IRIS NELSON MD, Ot Z87.891 PERSONAL HISTORY OF NICOTINE DEPENDENCE 10/30/2018 IRIS NELSON MD, Ot Z88.7 ALLERGY STATUS TO SERUM AND VACCINE STAT 10/30/2018 IRIS NELSON MD, Ot Z88.8 ALLERGY STATUS TO OTH DRUG/MEDS/BIOL SUB 10/30/2018 IRIS NELSON MD Ot Z90.89 ACQUIRED ABSENCE OF OTHER ORGANS 10/30/2018 IRIS NELSON MD, Ot Z95.1 PRESENCE OF AORTOCORONARY BYPASS GRAFT 10/30/2018 IRIS NELSON MD Ot Z95.5 PRESENCE OF CORONARY ANGIOPLASTY IMPLANT 10/30/2018 IRIS NELSON MD, Ot Z95.820 PERIPHERAL VASCULAR ANGIOPLASTY STATUS W 10/30/2018 IRIS NELSON MD, Ot Z98.890 OTHER SPECIFIED POSTPROCEDURAL STATES 11/04/2018 IRIS NELSON MD, Ot E78.00 PURE HYPERCHOLESTEROLEMIA, UNSPECIFIED 11/04/2018 IRIS NELSON MD, Ot F20.9 SCHIZOPHRENIA, UNSPECIFIED 11/04/2018 IRIS NELSON MD, Ot F32.9 MAJOR DEPRESSIVE DISORDER, SINGLE EPISOD 11/04/2018 IRIS NELSON MD, Ot I10 ESSENTIAL (PRIMARY) HYPERTENSION 11/04/2018 IRIS NELSON MD, Ot I25.10 ATHSCL HEART DISEASE OF [place] CORONARY 11/04/2018 IRIS NELSON MD, Ot I25.2 OLD MYOCARDIAL INFARCTION 11/04/2018 IRIS NELSON MD, Ot I73.9 PERIPHERAL VASCULAR DISEASE, UNSPECIFIED 11/04/2018 IRIS NELSON MD, Ot J44.1 CHRONIC OBSTRUCTIVE PULMONARY DISEASE W 11/04/2018 IRIS NELSON MD, Ot K21.9 GASTRO-ESOPHAGEAL REFLUX DISEASE WITHOUT 11/04/2018 IRIS NELSON MD, Ot R07.9 CHEST PAIN, UNSPECIFIED 11/04/2018 IRIS NELSON MD, Ot Z79.02 HALFWAY (CURRENT) USE OF ANTITHROMBOTI 11/04/2018 IRIS NELSON MD, Ot Z79.51 HALFWAY (CURRENT) USE OF INHALED STERO 11/04/2018 IRIS NELSON MD, Ot Z79.52 HALFWAY (CURRENT) USE OF SYSTEMIC STER 11/04/2018 IRIS NELSON MD, Ot Z79.82 HALFWAY (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 11/04/2018 IRIS NELSON MD, Ot Z82.49 FAMILY HX OF ISCHEM HEART DIS AND OTH DI 11/04/2018 IRIS NELSON MD, Ot Z86.718 PERSONAL HISTORY OF OTHER VENOUS THROMBO 11/04/2018 IRIS NELSON MD, Ot Z86.73 PRSNL HX OF TIA (TIA), AND CEREB INFRC W 11/04/2018 IRIS NELSON MD, Ot Z87.01 PERSONAL HISTORY OF PNEUMONIA (RECURRENT 11/04/2018 IRIS NELSON MD, Ot Z87.19 PERSONAL HISTORY OF OTHER DISEASES OF TH 11/04/2018 IRIS NELSON MD, Ot Z87.891 PERSONAL HISTORY OF NICOTINE DEPENDENCE 11/04/2018 RIIS NELSON MD, Ot Z88.7 ALLERGY STATUS TO SERUM AND VACCINE STAT 11/04/2018 IRIS NELSON MD, Ot Z88.8 ALLERGY STATUS TO OT DRUG/MEDS/BIOL SUB 11/04/2018 IRIS NELSON MD, Ot Z90.89 ACQUIRED ABSENCE OF OTHER ORGANS 11/04/2018 IRIS NELSON MD, Ot Z95.1 PRESENCE OF AORTOCORONARY BYPASS GRAFT 11/04/2018 IRIS NELSON MD, Ot Z95.5 PRESENCE OF CORONARY ANGIOPLASTY IMPLANT 11/04/2018 DANIEL NELSON MDUA T Ot Z95.820 PERIPHERAL VASCULAR ANGIOPLASTY STATUS W 11/04/2018 IRIS NELSON MD Ot Z98.890 OTHER SPECIFIED POSTPROCEDURAL STATES 11/10/2018 JONATHAN CRANE, JOSHUA Rausch Ot I20. 8 OTHER FORMS OF ANGINA PECTORIS 11/10/2018 JONATHAN CRANE, JOSHUA Rausch Ot I20. 8 OTHER FORMS OF ANGINA PECTORIS 11/11/2018 JOSHUA CASTILLO MD Ot I20. 8 OTHER FORMS OF ANGINA PECTORIS 11/12/2018 CATE HERRERA WRITER EDITOR Ot F10.20 ALCOHOL DEPENDENCE, UNCOMPLICATED 11/12/2018 CATE HERRERA WRITER EDITOR Ot J44.9 CHRONIC OBSTRUCTIVE PULMONARY DISEASE, U 11/12/2018 CATE HERRERA WRITER EDITOR Ot R91.8 OTHER NONSPECIFIC ABNORMAL FINDING OF [place] 11/12/2018 CATE HERRERA WRITER EDITOR Ot Z87.891 PERSONAL HISTORY OF NICOTINE DEPENDENCE 11/12/2018 CATE HERRERA WRITER EDITOR Ot F10.20 ALCOHOL DEPENDENCE, UNCOMPLICATED 11/12/2018 CATE HERRERA WRITER EDITOR Ot J44.9 CHRONIC OBSTRUCTIVE PULMONARY DISEASE, U 11/12/2018 CATE HERRERA WRITER EDITOR Ot R06.02 SHORTNESS OF BREATH 11/12/2018 CATE HERRERA WRITER EDITOR Ot R06.2 WHEEZING 11/12/2018 CATE HERRERA WRITER EDITOR Ot R09.02 HYPOXEMIA 11/12/2018 CATE HERRERA WRITER EDITOR Ot Z72.0 TOBACCO USE 11/13/2018 JONATHAN CRANE, JOSHUA Rausch Ot I20. 8 OTHER FORMS OF ANGINA PECTORIS 11/22/2018 CATE HERRERA WRITER EDITOR Ot F10.20 ALCOHOL DEPENDENCE, UNCOMPLICATED 11/22/2018 CATE HERRERA WRITER EDITOR Ot J44.9 CHRONIC OBSTRUCTIVE PULMONARY DISEASE, U 11/22/2018 CATE HERRERA WRITER EDITOR Ot J98.4 OTHER DISORDERS OF LUNG 11/22/2018 CATE HERRERA WRITER EDITOR Ot R91.8 OTHER NONSPECIFIC ABNORMAL FINDING OF [place] 11/22/2018 CATE HERRERA WRITER EDITOR Ot Z72.0 TOBACCO USE 11/24/2018 CATE HERRERA WRITER EDITOR Ot F10.20 ALCOHOL DEPENDENCE, UNCOMPLICATED 11/24/2018 CATE HERRERA WRITER EDITOR Ot J44.9 CHRONIC OBSTRUCTIVE PULMONARY DISEASE, U 11/24/2018 CATE HERRERA WRITER EDITOR Ot J98.4 OTHER DISORDERS OF LUNG 11/24/2018 CATE HERRERA WRITER EDITOR Ot R91.8 OTHER NONSPECIFIC ABNORMAL FINDING OF [place] 11/24/2018 CATE HERRERA WRITER EDITOR Ot Z72.0 TOBACCO USE 12/01/2018 CATE HERRERA WRITER EDITOR Ot F10.20 ALCOHOL DEPENDENCE, UNCOMPLICATED 12/01/2018 CATE HERRERA WRITER EDITOR Ot J44.9 CHRONIC OBSTRUCTIVE PULMONARY DISEASE, U 12/01/2018 CATE HERRERA WRITER EDITOR Ot R06.02 SHORTNESS OF BREATH 12/01/2018 CATE HERRERA APRN Ot R06.2 WHEEZING 12/01/2018 CATE HERRERA APRN Ot R09.02 HYPOXEMIA 12/01/2018 CATE HERRERA APRN Ot Z72.0 TOBACCO USE 12/06/2018 Ot 300.00 ANX IETY STATE NOS 12/06/2018 Ot 414.00 COR ON ATHEROSCLER NOS TYPE VESSEL, NATIV 12/06/2018 Ot 496 CHR AI RWAY OBSTRUCT NEC 12/06/2018 Ot V57.89 PRIYANKA ABILITATION PROC NEC 12/07/2018 DEBBIE ESPINOSA DO Ot E78.00 PURE HYPERCHOLESTEROLEMIA, UNSPECIFIED 12/07/2018 PAZ ESPINOSA DOA K Ot F20.9 SCHIZOPHRENIA, UNSPECIFIED 12/07/2018 PAZ ESPINOSA DOA K Ot F32.9 MAJOR DEPRESSIVE DISORDER, SINGLE EPISOD 12/07/2018 PAZ ESPINOSA DOA Julian Ot F41.9 ANXIETY DISORDER, UNSPECIFIED 12/07/2018 FRANCISCA BURDICK DEBBIE K Ot I11.0 HYPERTENSIVE HEART DISEASE WITH HEART FA 12/07/2018 FRANCISCA BURDICK DEBBIE K Ot I25.10 ATHSCL HEART DISEASE OF [place] CORONARY 12/07/2018 DEBBIE ESPINOSA DO Ot I25.2 OLD MYOCARDIAL INFARCTION 12/07/2018 PAZ ESPINOSA DOA K Ot I50.9 HEART FAILURE, UNSPECIFIED 12/07/2018 PAZ ESPINOSA DOA K Ot I73.9 PERIPHERAL VASCULAR DISEASE, UNSPECIFIED 12/07/2018 PAZ ESPINOSA DOA Julian Ot J44.9 CHRONIC OBSTRUCTIVE PULMONARY DISEASE, U 12/07/2018 DEBBIE ESPINOSA DO, Ot K21.9 GASTRO-ESOPHAGEAL REFLUX DISEASE WITHOUT 12/07/2018 DEBBIE ESPINOSA DO, Ot R07.9 CHEST PAIN, UNSPECIFIED 12/07/2018 DEBBIE ESPINOSA DO, Ot Z79.51 HALFWAY (CURRENT) USE OF INHALED STERO 12/07/2018 DEBBIE ESPINOSA DO, Ot Z79.82 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 ASSISTANT (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 12/07/2018 DEBBIE ESPINOSA DO, Ot Z82.49 FAMILY HX OF ISCHEM HEART DIS AND OTH DI 12/07/2018 DEBBIE ESPINOSA DO, Ot Z86.718 PERSONAL HISTORY OF OTHER VENOUS THROMBO 12/07/2018 DEBBIE ESPINOSA DO, Ot Z86.73 PRSNL HX OF TIA (TIA), AND CEREB INFRC W 12/07/2018 DEBBIE ESPINOSA DO, Ot Z87.01 PERSONAL HISTORY OF PNEUMONIA (RECURRENT 12/07/2018 DEBBIE ESPINOSA DO, Ot Z87.891 PERSONAL HISTORY OF NICOTINE DEPENDENCE 12/07/2018 DEBBIE ESPINOSA DO, Ot Z88.7 ALLERGY STATUS TO SERUM AND VACCINE STAT 12/07/2018 DEBBIE ESPINOSA DO, Ot Z88.8 ALLERGY STATUS TO [facility] DRUG/MEDS/BIOL SUB 12/07/2018 DEBBIE ESPINOSA DO, Ot Z90.89 ACQUIRED ABSENCE OF OTHER ORGANS 12/07/2018 DEBBIE ESPINOSA DO Ot Z95.1 PRESENCE OF AORTOCORONARY BYPASS GRAFT 12/07/2018 DEBBIE ESPINOSA DO Ot Z95.5 PRESENCE OF CORONARY ANGIOPLASTY IMPLANT 12/07/2018 DEBBIE ESPINOSA DO Ot Z99.81 DEPENDENCE ON SUPPLEMENTAL OXYGEN 12/09/2018 DEBBIE ESPINOSA DO Ot E78.00 PURE HYPERCHOLESTEROLEMIA, UNSPECIFIED 12/09/2018 DEBBIE ESPINOSA DO, Ot F20.9 SCHIZOPHRENIA, UNSPECIFIED 12/09/2018 DEBBIE ESPINOSA DO Ot F32.9 MAJOR DEPRESSIVE DISORDER, SINGLE EPISOD 12/09/2018 DEBBIE ESPINOSA DO, Ot F41.9 ANXIETY DISORDER, UNSPECIFIED 12/09/2018 DEBBIE ESPINOSA DO Ot I11.0 HYPERTENSIVE HEART DISEASE WITH HEART FA 12/09/2018 DEBBIE ESPINOSA DO, Ot I25.10 ATHSCL HEART DISEASE OF [place] CORONARY 12/09/2018 FRANCISCA BURDICKPAZA Julian Ot I25.2 OLD MYOCARDIAL INFARCTION 12/09/2018 FRANCISCA DODEBBIE Ot I50.9 HEART FAILURE, UNSPECIFIED 12/09/2018 FRANCISCA BURDICK DEBBIE Julian Ot I73.9 PERIPHERAL VASCULAR DISEASE, UNSPECIFIED 12/09/2018 FRANCISCA BURDICK DEBBIE Julian Ot J44.9 CHRONIC OBSTRUCTIVE PULMONARY DISEASE, U 12/09/2018 FRANCISCA DODEBBIE Ot K21.9 GASTRO-ESOPHAGEAL REFLUX DISEASE WITHOUT 12/09/2018 FRANCISCA BURDICKDEBBIE Ot R07.9 CHEST PAIN, UNSPECIFIED 12/09/2018 FRANCISCA BURDICKDEBBIE Ot Z79.51 HALFWAY (CURRENT) USE OF INHALED STERO 12/09/2018 FRANCISCA DEBBIE Ot Z79.82 HALFWAY (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 12/09/2018 FRANCISCA DEBBIE BURDICK Ot Z82.49 FAMILY HX OF ISCHEM HEART DIS AND OTH DI 12/09/2018 DEBBIE ESPINOSA DO Ot Z86.718 PERSONAL HISTORY OF OTHER VENOUS THROMBO 12/09/2018 DEBBIE ESPINOSA DO Ot Z86.73 PRSNL HX OF TIA (TIA), AND CEREB INFRC W 12/09/2018 DEBBIE ESPINOSA DO Ot Z87.01 PERSONAL HISTORY OF PNEUMONIA (RECURRENT 12/09/2018 DEBBIE ESPINOSA DO Ot Z87.891 PERSONAL HISTORY OF NICOTINE DEPENDENCE 12/09/2018 DEBBIE ESPINOSA DO Ot Z88.7 ALLERGY STATUS TO SERUM AND VACCINE STAT 12/09/2018 DEBBIE ESPINOSA DO Ot Z88.8 ALLERGY STATUS TO [facility] DRUG/MEDS/BIOL SUB 12/09/2018 DEBBIE ESPINOSA DO Ot Z90.89 ACQUIRED ABSENCE OF OTHER ORGANS 12/09/2018 DEBBIE ESPINOSA DO Ot Z95.1 PRESENCE OF AORTOCORONARY BYPASS GRAFT 12/09/2018 DEBBIE ESPINOSA DO Ot Z95.5 PRESENCE OF CORONARY ANGIOPLASTY IMPLANT 12/09/2018 DEBBIE ESPINOSA DO Ot Z99.81 DEPENDENCE ON SUPPLEMENTAL OXYGEN 12/11/2018 JOSHUA CASTILLO MD Ot Z29. 8 ENCOUNTER FOR OTHER SPECIFIED PROPHYLACT 12/15/2018 JOSHUA CASTILLO MD Ot Z29. 8 ENCOUNTER FOR OTHER SPECIFIED PROPHYLACT 12/15/2018 JONATHAN CRANE, JOSHUA Rausch Ot Z29. 8 ENCOUNTER FOR OTHER SPECIFIED PROPHYLACT 12/16/2018 W 428.0 VASHTI ESTIVE HEART FAILURE, UNSPECIFIED 12/16/2018 W 723.5 TORT ICOLLIS, UNSPECIFIED 12/16/2018 W 782.3 EDEMA 12/16/2018 W F45.8 OTHE R SOMATOFORM DISORDERS 12/16/2018 W I50.9 HEAR T FAILURE, UNSPECIFIED 12/16/2018 W M43.6 TORT ICOLLIS 12/16/2018 W R60.0 LOCA LIZED EDEMA 12/22/2018 W 428.0 VASHTI ESTIVE HEART FAILURE, UNSPECIFIED 12/22/2018 W 723.5 TORT ICOLLIS, UNSPECIFIED 12/22/2018 W 782.3 EDEMA 12/22/2018 W F45.8 OTHE R [place] DISORDERS 12/22/2018 W I50.9 HEAR T FAILURE, UNSPECIFIED 12/22/2018 W M43.6 TORT ICOLLIS 12/22/2018 W R60.0 LOCA LIZED EDEMA 12/25/2018 CATE HERRERA APRN Ot F10.20 ALCOHOL DEPENDENCE, UNCOMPLICATED 12/25/2018 CATE HERRERA APRN Ot J44.9 CHRONIC OBSTRUCTIVE PULMONARY DISEASE, U 12/25/2018 CATE HERRERA APRN Ot J98.4 OTHER DISORDERS OF LUNG 12/25/2018 CATE HERRERA APRN Ot R91.8 OTHER NONSPECIFIC ABNORMAL FINDING OF [place] 12/25/2018 CATE HERRERA APRN Ot Z72.0 TOBACCO USE 12/25/2018 Zepeda, Tita-Krista W 782.3 EDEMA 12/25/2018 Zepeda, Tita-Krista W R60.0 LOCALIZED EDEMA 12/25/2018 Zepeda, Tita-Krista W 414.8 OTHER SPECIFIED FORMS OF CHRONIC ISCHEMIC HEART DISEASE 12/25/2018 Zepeda, Tita-Krista W 428.0 CONGESTIVE HEART FAILURE, UNSPECIFIED 12/25/2018 Zepeda, Tita-Krista W 782.3 EDEMA 12/25/2018 Zepeda, Tita-Krista W 786.05 SHORTNESS OF BREATH 12/25/2018 Zepeda, Tita-Krista W I25.9 CHRONIC ISCHEMIC HEART DISEASE, UNSPECIFIED 12/25/2018 Zepeda, TreKrista W I50.9 HEART FAILURE, UNSPECIFIED 12/25/2018 Zepeda, Mikeu W R06.02 SHORTNESS OF BREATH 12/25/2018 Zepeda, Mikeu W R60.0 LOCALIZED EDEMA 12/25/2018 W 414.8 OTHE R SPECIFIED FORMS OF CHRONIC ISCHEMIC HEART DISEASE 12/25/2018 W 428.0 VASHTI ESTIVE HEART FAILURE, UNSPECIFIED 12/25/2018 W 782.3 EDEMA 12/25/2018 W 786.05 KINGSLEY RTNESS OF BREATH 12/25/2018 W 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, 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 12/25/2018 W I50.9 HEAR T FAILURE, UNSPECIFIED 12/25/2018 W R06.02 KINGSLEY RTNESS OF BREATH 12/25/2018 W R60.0 LOCA LIZED EDEMA 12/25/2018 Zepeda, Mikeu W 414.8 OTHER SPECIFIED FORMS OF CHRONIC ISCHEMIC HEART DISEASE 12/25/2018 Zepeda, Mikeu W 428.0 CONGESTIVE HEART FAILURE, UNSPECIFIED 12/25/2018 Zepeda, TreKrista W 782.3 EDEMA 12/25/2018 Zepeda, Mikeu W 786.05 SHORTNESS OF BREATH 12/25/2018 Zepeda, Mikeu W I25.9 CHRONIC ISCHEMIC HEART DISEASE, UNSPECIFIED 12/25/2018 Zepeda, TreKrista W I50.9 HEART FAILURE, UNSPECIFIED 12/25/2018 Zepeda, Mikeu W R06.02 SHORTNESS OF BREATH 12/25/2018 Zepeda, Mikeu W R60.0 LOCALIZED EDEMA 01/13/2019 W 414.01 COR ONARY ATHEROSCLEROSIS OF [place] CORONARY ARTERY 01/13/2019 W 428.0 VASHTI ESTIVE HEART FAILURE, UNSPECIFIED 01/13/2019 W 433.10 OCC LUSION AND STENOSIS OF CAROTID ARTERY, WITHOUT MENTION OF CEREBRAL INFARCTION 01/13/2019 W 786.05 KINGSLEY RTNESS OF BREATH 01/13/2019 W 786.2 COUGH 01/13/2019 W I25.10 ATH EROSCLEROTIC HEART DISEASE OF [place] CORONARY ARTERY WITHOUT ANGINA PECTORIS 01/13/2019 W I50.9 HEAR T FAILURE, UNSPECIFIED 01/13/2019 W I65.29 OCC LUSION AND STENOSIS OF UNSPECIFIED CAROTID ARTERY 01/13/2019 W R05 COUGH 01/13/2019 W R06.02 [place] RTNESS OF BREATH 01/13/2019 Zepeda, Tita-Krista W 428.0 CONGESTIVE HEART FAILURE, UNSPECIFIED 01/13/2019 Zepeda, Tita-Krista W I50.9 HEART FAILURE, UNSPECIFIED 01/13/2019 Zepeda, Tita-Krista W 414.01 CORONARY ATHEROSCLEROSIS OF [place] CORONARY ARTERY 01/13/2019 Zepeda, Tita-Krista W 428.0 CONGESTIVE HEART FAILURE, UNSPECIFIED 01/13/2019 Zepeda, Tita-Krista W I25.10 ATHEROSCLEROTIC HEART DISEASE OF [place] CORONARY ARTERY WITHOUT ANGINA PECTORIS 01/13/2019 Zepeda, Tita-Krista W I50.9 HEART FAILURE, UNSPECIFIED 01/13/2019 Zepeda, Tita-Krista W 414.01 CORONARY ATHEROSCLEROSIS OF [place] CORONARY ARTERY 01/13/2019 Ezpeda, Tita-Krista W 428.0 CONGESTIVE HEART FAILURE, UNSPECIFIED 01/13/2019 Zepeda, Tita-Krista W 433.10 OCCLUSION AND STENOSIS OF CAROTID ARTERY, WITHOUT MENTION OF CEREBRAL INFARCTION 01/13/2019 Zepeda, Tita-Krista W I25.10 ATHEROSCLEROTIC HEART DISEASE OF [place] CORONARY ARTERY WITHOUT ANGINA PECTORIS 01/13/2019 Zepeda, Tita-Krista W I50.9 HEART FAILURE, UNSPECIFIED 01/13/2019 Zepeda, Tita-Krista W I65.29 OCCLUSION AND STENOSIS OF UNSPECIFIED CAROTID ARTERY 01/13/2019 Zepeda, Tita-Krista W 414.01 CORONARY ATHEROSCLEROSIS OF [place] CORONARY ARTERY 01/13/2019 Zepeda, Tita-Krista W 428.0 CONGESTIVE HEART FAILURE, UNSPECIFIED 01/13/2019 Zepeda, Tita-Krista W 433.10 OCCLUSION AND STENOSIS OF CAROTID ARTERY, WITHOUT MENTION OF CEREBRAL INFARCTION 01/13/2019 Zepeda, Tita-Krista W 786.05 SHORTNESS OF BREATH 01/13/2019 Zepeda, Tita-Krista W 786.2 COUGH 01/13/2019 Zepeda, Tita-Krista W I25.10 ATHEROSCLEROTIC HEART DISEASE OF [place] CORONARY ARTERY WITHOUT ANGINA PECTORIS 01/13/2019 Zepeda, Tita-Krista W I50.9 HEART FAILURE, UNSPECIFIED 01/13/2019 Zepeda, Tita-Krista W I65.29 OCCLUSION AND STENOSIS OF UNSPECIFIED CAROTID ARTERY 01/13/2019 Zepeda, Tita-Krista W R05 COUGH 01/13/2019 Zepeda, Mikeu W R06.02 SHORTNESS OF BREATH 01/13/2019 Zepeda, Mikeu W 414.01 CORONARY ATHEROSCLEROSIS OF [place] CORONARY ARTERY 01/13/2019 Zepeda, Mikeu W 428.0 CONGESTIVE HEART FAILURE, UNSPECIFIED 01/13/2019 Zepeda, TreKrista W 433.10 OCCLUSION AND STENOSIS OF CAROTID ARTERY, WITHOUT MENTION OF CEREBRAL INFARCTION 01/13/2019 Zepeda, TreKrista W 786.05 SHORTNESS OF BREATH 01/13/2019 Zepeda, Mikeu W 786.2 COUGH 01/13/2019 Zepeda, Mikeu W I25.10 ATHEROSCLEROTIC HEART DISEASE OF [place] CORONARY ARTERY WITHOUT ANGINA PECTORIS 01/13/2019 Zepeda, Mikeu W I50.9 HEART FAILURE, UNSPECIFIED 01/13/2019 Zepeda, Mikeu W I65.29 OCCLUSION AND STENOSIS OF UNSPECIFIED CAROTID ARTERY 01/13/2019 Zepeda, Mikeu W R05 COUGH 01/13/2019 Zepeda, Mikeu W R06.02 SHORTNESS OF BREATH 02/15/2019 HORTENCIA LYNNP Ot M25. 78 OSTEOPHYTE, VERTEBRAE 02/15/2019 HORTENCIA LYNN FURNITURE MOVER HELPER Ot M47. 22 OTHER SPONDYLOSIS WITH RADICULOPATHY, CE 02/15/2019 HORTENCIA LYNN FURNITURE MOVER HELPER Ot M48. 02 SPINAL STENOSIS, CERVICAL REGION 03/03/2019 HORTENCIA LYNNP Ot M25. 78 OSTEOPHYTE, VERTEBRAE 03/03/2019 HORTENCIA LYNN FURNITURE MOVER HELPER Ot M47. 22 OTHER SPONDYLOSIS WITH RADICULOPATHY, CE 03/03/2019 HORTENCIA LYNN FURNITURE MOVER HELPER Ot M48. 02 SPINAL STENOSIS, CERVICAL REGION 04/18/2019 JONATHAN CRANE, JOSHUA Rausch Ot Z29. 8 ENCOUNTER FOR OTHER SPECIFIED PROPHYLACT 04/18/2019 RAJAN CRANE, JUAREZ Cahpin Ot F20. 9 SCHIZOPHRENIA, UNSPECIFIED 04/18/2019 RAJAN CRANE, JUAREZ Chapin Ot F32. 9 MAJOR DEPRESSIVE DISORDER, SINGLE EPISOD 04/18/2019 RAJAN CRANE, JUAREZ Chapin Ot F41. 9 ANXIETY DISORDER, UNSPECIFIED 04/18/2019 JUAREZ TOLENTINO MD, Ot I11. 0 HYPERTENSIVE HEART DISEASE WITH HEART FA 04/18/2019 JUAREZ TOLENTINO MD, Ot I25.119 ATHSCL HEART DISEASE OF [place] COR ART W 04/18/2019 JUAREZ TOLENTINO MD, Ot I25. 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 22 CHRONIC SYSTOLIC (CONGESTIVE) HEART FAIL 04/18/2019 JUAREZ TOLENTINO MD, Ot I65. 21 OCCLUSION AND STENOSIS OF RIGHT CAROTID 04/18/2019 JUAREZ TOLENTINO MD, Ot I73. 9 PERIPHERAL VASCULAR DISEASE, UNSPECIFIED 04/18/2019 JUAREZ TOLENTINO MD, Ot J18. 9 PNEUMONIA, UNSPECIFIED ORGANISM 04/18/2019 JUAREZ TOLENTINO MD, Ot J44. 0 CHR OBSTRUCTIVE PULMON DISEASE WITH (ACU 04/18/2019 JUAREZ TOLENTINO MD, Ot J44. 1 CHRONIC OBSTRUCTIVE PULMONARY DISEASE W 04/18/2019 JUAREZ TOLENTINO MD, Ot J98. 11 ATELECTASIS 04/18/2019 JUAREZ TOLENTINO MD, Ot K21. 9 GASTRO-ESOPHAGEAL REFLUX DISEASE WITHOUT 04/18/2019 JUAREZ TOLENTINO MD, Ot Z79. 02 HALFWAY (CURRENT) USE OF ANTITHROMBOTI 04/18/2019 JUAREZ TOLENTINO MD, Ot Z79. 82 HALFWAY (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 04/18/2019 JUAREZ TOLENTINO MD, Ot Z86.718 PERSONAL HISTORY OF OTHER VENOUS THROMBO 04/18/2019 JUAREZ TOLENTINO MD, Ot Z87.891 PERSONAL HISTORY OF NICOTINE DEPENDENCE 04/18/2019 JUAREZ TOLENTINO MD, Ot Z95. 1 PRESENCE OF AORTOCORONARY BYPASS GRAFT 04/18/2019 JUAREZ TOLENTINO MD, Ot Z95. 5 PRESENCE OF CORONARY ANGIOPLASTY IMPLANT 04/18/2019 JUAREZ TOLENTINO MD, Ot Z95.820 PERIPHERAL VASCULAR ANGIOPLASTY STATUS W 04/18/2019 JUAREZ TOLENTINO MD, Ot Z99. 81 DEPENDENCE ON SUPPLEMENTAL OXYGEN 06/03/2019 CATE HERRERA APRN, Ot F17.201 NICOTINE DEPENDENCE, UNSPECIFIED, IN REM 06/03/2019 CATE HERRERA WRITER EDITOR Ot J18.9 PNEUMONIA, UNSPECIFIED ORGANISM 06/03/2019 CATE HERRERA WRITER EDITOR Ot J44.9 CHRONIC OBSTRUCTIVE PULMONARY DISEASE, U 06/03/2019 CATE HERRERA WRITER EDITOR Ot K76.9 LIVER DISEASE, UNSPECIFIED 06/03/2019 CATE HERRERA WRITER EDITOR Ot R91.1 SOLITARY PULMONARY NODULE 06/03/2019 CATE HERRERA WRITER EDITOR Ot R91.8 OTHER NONSPECIFIC ABNORMAL FINDING OF [place] 06/29/2019 CATE HERRERA WRITER EDITOR Ot F17.201 NICOTINE DEPENDENCE, UNSPECIFIED, IN REM 06/29/2019 CATE HERRERA WRITER EDITOR Ot J18.9 PNEUMONIA, UNSPECIFIED ORGANISM 06/29/2019 CATE HERRERA WRITER EDITOR Ot J44.9 CHRONIC OBSTRUCTIVE PULMONARY DISEASE, U 06/29/2019 CATE HERRERA WRITER EDITOR Ot K76.9 LIVER DISEASE, UNSPECIFIED 06/29/2019 CATE HERRERA WRITER EDITOR Ot R91.1 SOLITARY PULMONARY NODULE 06/29/2019 CATE HERRERA WRITER EDITOR Ot R91.8 OTHER NONSPECIFIC ABNORMAL FINDING OF [place] Procedures There is no data. Results Test Result Range Complete blood count (CBC) with automate d white blood cell (WBC) differential - 07/24/16 13:45 Blood leukocytes automated count (number/volume) 5.0 10*3/uL 4.3-11.0 Blood erythrocytes automated count (number/volume) 4.34 10*6/uL 4.35-5.85 Venous blood hemoglobin measurement (mass/volume) 13.7 g/dL 13.3-17.7 Blood hematocrit (volume fraction) 42 % 40-54 Automated erythrocyte mean corpuscular volume 96 [ foz_us] 80-99 Automated erythrocyte mean corpuscular h emoglobin (mass per erythrocyte) 32 pg 25-34 Automated erythrocyte mean corpuscular h emoglobin concentration measurement (mass/volume) 33 g/dL 32-36 Automated erythrocyte distribution width ratio 12. 4 % 10.0- 14.5 Automated blood platelet count (count/volume) 143 10*3/uL 130-400 Automated blood platelet mean volume measurement 9.8 [foz_us] 7.4-10.4 Automated blood neutrophils/100 leukocytes 50 % 42-75 Automated blood lymphocytes/100 leukocytes 38 % 12-44 Blood monocytes/100 leukocytes 9 % 0-12 Automated blood eosinophils/100 leukocytes 2 % 0-10 Automated blood basophils/100 leukocytes 0 % 0-10 Blood neutrophils automated count (number/volume) 2.5 10*3 1.8-7.8 Blood lymphocytes automated count (number/volume) 1.9 10*3 1.0-4.0 Blood monocytes automated count (number/volume) 0. 5 10*3 0.0-1.0 Automated eosinophil count 0.1 10*3/uL 0 .0-0.3 Automated blood basophil count (count/volume) 0.0 10*3/uL 0.0-0.1 Comprehensive metabolic panel - 07/24/16 13:45 Serum or plasma sodium measurement (moles/volume) 136 mmol/L 135-145 Serum or plasma potassium measurement (moles/volume) 4.4 mmol/L 3.6-5.0 Serum or plasma chloride measurement (moles/volume) 96 mmol/L 98-107 Carbon dioxide 35 mmol/L 21-32 Serum or plasma anion gap determination (moles/volume) 5 mmol/L 5-14 Serum or plasma urea nitrogen measurement (mass/volume ) 7 mg/dL 7-18 Serum or plasma creatinine measurement (mass/volume) 0.86 mg/dL 0.60-1.30 Serum or plasma urea nitrogen/creatinine mass ratio 8 NRG Serum or plasma creatinine measurement w ith calculation of estimated glomerular filtration rate > NRG Serum or plasma glucose measurement (mass/volume) 109 mg/dL 70-105 Serum or plasma calcium measurement (mass/volume) 9.0 mg/dL 8.5-10.1 Serum or plasma total bilirubin measurement (mass/volu me) 0.5 mg/dL 0.1-1.0 Serum or plasma alkaline phosphatase lola surement (enzymatic activity/volume) 66 U/L 40-136 Serum or plasma aspartate aminotransfera se measurement (enzymatic activity/volume) 17 U/L 5-34 Serum or plasma alanine aminotransferase measurement (enzymatic activity/volume) 18 U/L 0-55 Serum or plasma protein measurement (mass/volume) 6.3 g/dL 6.4-8.2 Serum or plasma albumin measurement (mass/volume) 3.9 g/dL 3.2-4.5 Serum or plasma troponin i.cardiac measu rement (mass/volume) - 07/24/16 13:45 Serum or plasma troponin i.cardiac measurement (mass/v olume) < ng/mL <0.30 Serum or plasma troponin i.cardiac measu rement (mass/volume) - 07/24/16 19:52 Serum or plasma troponin i.cardiac measurement (mass/v olume) < ng/mL <0.30 Complete blood count (CBC) with automate d white blood cell (WBC) differential - 10/12/16 21:55 Blood leukocytes automated count (number/volume) 8.0 10*3/uL 4.3-11.0 Blood erythrocytes automated count (number/volume) 4.20 10*6/uL 4.35-5.85 Venous blood hemoglobin measurement (mass/volume) 13.3 g/dL 13.3-17.7 Blood hematocrit (volume fraction) 41 % 40-54 Automated erythrocyte mean corpuscular volume 97 [ foz_us] 80-99 Automated erythrocyte mean corpuscular h emoglobin (mass per erythrocyte) 32 pg 25-34 Automated erythrocyte mean corpuscular h emoglobin concentration measurement (mass/volume) 33 g/dL 32-36 Automated erythrocyte distribution width ratio 13. 6 % 10.0- 14.5 Automated blood platelet count (count/volume) 137 10*3/uL 130-400 Automated blood platelet mean volume measurement 10.2 [foz_us] 7.4-10.4 Automated blood neutrophils/100 leukocytes 57 % 42-75 Automated blood lymphocytes/100 leukocytes 31 % 12-44 Blood monocytes/100 leukocytes 11 % 0-12 Automated blood eosinophils/100 leukocytes 2 % 0-10 Automated blood basophils/100 leukocytes 0 % 0-10 Blood neutrophils automated count (number/volume) 4.6 10*3 1.8-7.8 Blood lymphocytes automated count (number/volume) 2.5 10*3 1.0-4.0 Blood monocytes automated count (number/volume) 0. 9 10*3 0.0-1.0 Automated eosinophil count 0.2 10*3/uL 0 .0-0.3 Automated blood basophil count (count/volume) 0.0 10*3/uL 0.0-0.1 PT panel in platelet poor plasma by coag ulation assay - 10/12/16 21:55 Prothrombin time (PT) in platelet poor plasma by coagu lation assay 12.9 s 12.2-14.7 INR in platelet poor plasma or blood by coagulation as say 1.0 0.8-1.4 Activated partial thromboplastin time (a PTT) in platelet poor plasma bycoagulation assay - 10/12/16 21:55 Activated partial thromboplastin time (a PTT) in platelet poor plasma bycoagulation assay 29 s 24-35 Comprehensive metabolic panel - 10/12/16 21:55 Serum or plasma sodium measurement (moles/volume) 143 mmol/L 135-145 Serum or plasma potassium measurement (moles/volume) 4.3 mmol/L 3.6-5.0 Serum or plasma chloride measurement (moles/volume) 98 mmol/L 98-107 Carbon dioxide 36 mmol/L 21-32 Serum or plasma anion gap determination (moles/volume) 9 mmol/L 5-14 Serum or plasma urea nitrogen measurement (mass/volume ) 10 mg/dL 7-18 Serum or plasma creatinine measurement (mass/volume) 0.81 mg/dL 0.60-1.30 Serum or plasma urea nitrogen/creatinine mass ratio 12 NRG Serum or plasma creatinine measurement w ith calculation of estimated glomerular filtration rate > NRG Serum or plasma glucose measurement (mass/volume) 92 mg/dL 70-105 Serum or plasma calcium measurement (mass/volume) 9.0 mg/dL 8.5-10.1 Serum or plasma total bilirubin measurement (mass/volu me) 0.3 mg/dL 0.1-1.0 Serum or plasma alkaline phosphatase lola surement (enzymatic activity/volume) 60 U/L 40-136 Serum or plasma aspartate aminotransfera se measurement (enzymatic activity/volume) 14 U/L 5-34 Serum or plasma alanine aminotransferase measurement (enzymatic activity/volume) 13 U/L 0-55 Serum or plasma protein measurement (mass/volume) 5.8 g/dL 6.4-8.2 Serum or plasma albumin measurement (mass/volume) 3.7 g/dL 3.2-4.5 Magnesium - 10/12/16 21:55 Magnesium 1.9 mg/dL 1.8-2.4 Serum or plasma troponin i.cardiac measu rement (mass/volume) - 10/12/16 21:55 Serum or plasma troponin i.cardiac measurement (mass/v olume) < ng/mL <0.30 Myoglobin, serum - 10/12/16 21:55 Myoglobin, serum 37.4 ng/mL 10.0-92.0 Automated blood complete blood count (he mogram) panel - 10/13/16 04:25 Blood leukocytes automated count (number/volume) 5.5 10*3/uL 4.3-11.0 Blood erythrocytes automated count (number/volume) 4.36 10*6/uL 4.35-5.85 Venous blood hemoglobin measurement (mass/volume) 13.7 g/dL 13.3-17.7 Blood hematocrit (volume fraction) 43 % 40-54 Automated erythrocyte mean corpuscular volume 98 [ foz_us] 80-99 Automated erythrocyte mean corpuscular h emoglobin (mass per erythrocyte) 31 pg 25-34 Automated erythrocyte mean corpuscular h emoglobin concentration measurement (mass/volume) 32 g/dL 32-36 Automated erythrocyte distribution width ratio 13. 7 % 10.0- 14.5 Automated blood platelet count (count/volume) 122 10*3/uL 130-400 Automated blood platelet mean volume measurement 10.6 [foz_us] 7.4-10.4 Comprehensive metabolic panel - 10/13/16 04:25 Serum or plasma sodium measurement (moles/volume) 139 mmol/L 135-145 Serum or plasma potassium measurement (moles/volume) 4.4 mmol/L 3.6-5.0 Serum or plasma chloride measurement (moles/volume) 97 mmol/L 98-107 Carbon dioxide 33 mmol/L 21-32 Serum or plasma anion gap determination (moles/volume) 9 mmol/L 5-14 Serum or plasma urea nitrogen measurement (mass/volume ) 10 mg/dL 7-18 Serum or plasma creatinine measurement (mass/volume) 0.78 mg/dL 0.60-1.30 Serum or plasma urea nitrogen/creatinine mass ratio 13 NRG Serum or plasma creatinine measurement w ith calculation of estimated glomerular filtration rate > NRG Serum or plasma glucose measurement (mass/volume) 137 mg/dL 70-105 Serum or plasma calcium measurement (mass/volume) 8.9 mg/dL 8.5-10.1 Serum or plasma total bilirubin measurement (mass/volu me) 0.3 mg/dL 0.1-1.0 Serum or plasma alkaline phosphatase lola surement (enzymatic activity/volume) 61 U/L 40-136 Serum or plasma aspartate aminotransfera se measurement (enzymatic activity/volume) 16 U/L 5-34 Serum or plasma alanine aminotransferase measurement (enzymatic activity/volume) 16 U/L 0-55 Serum or plasma protein measurement (mass/volume) 6.1 g/dL 6.4-8.2 Serum or plasma albumin measurement (mass/volume) 3.8 g/dL 3.2-4.5 Serum or plasma creatine kinase measurem ent (enzymatic activity/volume) - 10/13/16 04:25 Serum or plasma creatine kinase measurem ent (enzymatic activity/volume) 75 U/L 30-200 Serum or plasma troponin i.cardiac measu rement (mass/volume) - 10/13/16 04:25 Serum or plasma troponin i.cardiac measurement (mass/v olume) < ng/mL <0.30 Lipid 1996 panel - 10/13/16 04:25 Serum or plasma triglyceride measurement (mass/volume) 48 mg/dL <150 Serum or plasma cholesterol measurement (mass/volume) 145 mg/dL < 200 Serum or plasma cholesterol in HDL measurement (mass/v olume) 65 mg/dL 40-60 Cholesterol in LDL [mass/volume] in serum or plasma by direct assay 58 mg/dL 1-129 Serum or plasma cholesterol in VLDL measurement (mass/ volume) 10 mg/dL 5-40 Serum or plasma creatine kinase measurem ent (enzymatic activity/volume) - 10/13/16 09:50 Serum or plasma creatine kinase measurem ent (enzymatic activity/volume) 74 U/L 30-200 Whole blood basic metabolic panel - 01/07 11/23 13:12 Serum or plasma sodium measurement (moles/volume) 142 mmol/L 135-145 Serum or plasma potassium measurement (moles/volume) 4.0 mmol/L 3.6-5.0 Serum or plasma chloride measurement (moles/volume) 96 mmol/L 98-107 Carbon dioxide 37 mmol/L 21-32 Serum or plasma anion gap determination (moles/volume) 9 mmol/L 5-14 Serum or plasma urea nitrogen measurement (mass/volume ) 13 mg/dL 7-18 Serum or plasma creatinine measurement (mass/volume) 0.85 mg/dL 0.60-1.30 Serum or plasma urea nitrogen/creatinine mass ratio 15 NRG Serum or plasma creatinine measurement w ith calculation of estimated glomerular filtration rate > NRG Serum or plasma glucose measurement (mass/volume) 116 mg/dL 70-105 Serum or plasma calcium measurement (mass/volume) 9.7 mg/dL 8.5-10.1 Complete blood count (CBC) with automate d white blood cell (WBC) differential - 03/22/17 20:09 Blood leukocytes automated count (number/volume) 9.4 10*3/uL 4.3-11.0 Blood erythrocytes automated count (number/volume) 4.01 10*6/uL 4.35-5.85 Venous blood hemoglobin measurement (mass/volume) 12.7 g/dL 13.3-17.7 Blood hematocrit (volume fraction) 39 % 40-54 Automated erythrocyte mean corpuscular volume 98 [ foz_us] 80-99 Automated erythrocyte mean corpuscular h emoglobin (mass per erythrocyte) 32 pg 25-34 Automated erythrocyte mean corpuscular h emoglobin concentration measurement (mass/volume) 32 g/dL 32-36 Automated erythrocyte distribution width ratio 13. 3 % 10.0- 14.5 Automated blood platelet count (count/volume) 141 10*3/uL 130-400 Automated blood platelet mean volume measurement 9.6 [foz_us] 7.4-10.4 Automated blood neutrophils/100 leukocytes 64 % 42-75 Automated blood lymphocytes/100 leukocytes 26 % 12-44 Blood monocytes/100 leukocytes 8 % 0-12 Automated blood eosinophils/100 leukocytes 1 % 0-10 Automated blood basophils/100 leukocytes 0 % 0-10 Blood neutrophils automated count (number/volume) 6.1 10*3 1.8-7.8 Blood lymphocytes automated count (number/volume) 2.5 10*3 1.0-4.0 Blood monocytes automated count (number/volume) 0. 8 10*3 0.0-1.0 Automated eosinophil count 0.1 10*3/uL 0 .0-0.3 Automated blood basophil count (count/volume) 0.0 10*3/uL 0.0-0.1 PT panel in platelet poor plasma by coag ulation assay - 03/22/17 20:09 Prothrombin time (PT) in platelet poor plasma by coagu lation assay 12.8 s 12.2-14.7 INR in platelet poor plasma or blood by coagulation as say 1.0 0.8-1.4 Activated partial thromboplastin time (a PTT) in platelet poor plasma bycoagulation assay - 03/22/17 20:09 Activated partial thromboplastin time (a PTT) in platelet poor plasma bycoagulation assay 27 s 24-35 Comprehensive metabolic panel - 03/22/17 20:09 Serum or plasma sodium measurement (moles/volume) 141 mmol/L 135-145 Serum or plasma potassium measurement (moles/volume) 4.1 mmol/L 3.6-5.0 Serum or plasma chloride measurement (moles/volume) 99 mmol/L 98-107 Carbon dioxide 32 mmol/L 21-32 Serum or plasma anion gap determination (moles/volume) 10 mmol/L 5-14 Serum or plasma urea nitrogen measurement (mass/volume ) 15 mg/dL 7-18 Serum or plasma creatinine measurement (mass/volume) 0.84 mg/dL 0.60-1.30 Serum or plasma urea nitrogen/creatinine mass ratio 18 NRG Serum or plasma creatinine measurement w ith calculation of estimated glomerular filtration rate > NRG Serum or plasma glucose measurement (mass/volume) 106 mg/dL 70-105 Serum or plasma calcium measurement (mass/volume) 8.8 mg/dL 8.5-10.1 Serum or plasma total bilirubin measurement (mass/volu me) 0.4 mg/dL 0.1-1.0 Serum or plasma alkaline phosphatase lola surement (enzymatic activity/volume) 52 U/L 40-136 Serum or plasma aspartate aminotransfera se measurement (enzymatic activity/volume) 15 U/L 5-34 Serum or plasma alanine aminotransferase measurement (enzymatic activity/volume) 16 U/L 0-55 Serum or plasma protein measurement (mass/volume) 5.8 g/dL 6.4-8.2 Serum or plasma albumin measurement (mass/volume) 3.5 g/dL 3.2-4.5 Magnesium - 03/22/17 20:09 Magnesium 1.8 mg/dL 1.8-2.4 Serum or plasma creatine kinase measurem ent (enzymatic activity/volume) - 03/22/17 20:09 Serum or plasma creatine kinase measurem ent (enzymatic activity/volume) 89 U/L 30-200 Serum or plasma creatine kinase MB measu rement (enzymatic activity/volume) - 03/22/17 20:09 Serum or plasma creatine kinase MB measu rement (enzymatic activity/volume) 2.0 ng/mL <6.6 Serum or plasma troponin i.cardiac measu rement (mass/volume) - 03/22/17 20:09 Serum or plasma troponin i.cardiac measurement (mass/v olume) < ng/mL <0.30 Serum or plasma amylase measurement (enz ymatic activity/volume) - 03/22/17 20:09 Serum or plasma amylase measurement (enzymatic activit y/volume) 50 U/L 25-125 Lipase - 03/22/17 20:09 Lipase 46 U/L 8-78 Serum or plasma lithium measurement (mol es/volume) - 03/22/17 20:09 BNP level 28.2 pg/mL <100.0 Urine drug screening test - 03/22/17 21: 15 Urine phencyclidine detection by screening method NEGATIVE NEGATIVE Urine benzodiazepines detection by screening method NEGATIVE NEGATIVE Urine cocaine detection NEGATIVE NEGATI VE Urine amphetamines detection by screening method N EGATIVE NEGATIVE Urine methamphetamine detection by screening method NEGATIVE NEGATIVE Urine cannabinoids detection by screening method N EGATIVE NEGATIVE Urine opiates detection by screening method POSITI VE NEGATIVE Urine barbiturates detection NEGATIVE N EGATIVE Screening urine tricyclic antidepressants detection NEGATIVE NEGATIVE Urine methadone detection by screening method NEGA TIVE NEGATIVE Urine oxycodone detection NEGATIVE NEGA TIVE Urine propoxyphene detection NEGATIVE N EGATIVE Complete blood count (CBC) with automate d white blood cell (WBC) differential - 03/23/17 02:10 Blood leukocytes automated count (number/volume) 7.9 10*3/uL 4.3-11.0 Blood erythrocytes automated count (number/volume) 3.97 10*6/uL 4.35-5.85 Venous blood hemoglobin measurement (mass/volume) 12.6 g/dL 13.3-17.7 Blood hematocrit (volume fraction) 39 % 40-54 Automated erythrocyte mean corpuscular volume 99 [ foz_us] 80-99 Automated erythrocyte mean corpuscular h emoglobin (mass per erythrocyte) 32 pg 25-34 Automated erythrocyte mean corpuscular h emoglobin concentration measurement (mass/volume) 32 g/dL 32-36 Automated erythrocyte distribution width ratio 13. 5 % 10.0- 14.5 Automated blood platelet count (count/volume) 131 10*3/uL 130-400 Automated blood platelet mean volume measurement 9.7 [foz_us] 7.4-10.4 Automated blood neutrophils/100 leukocytes 63 % 42-75 Automated blood lymphocytes/100 leukocytes 29 % 12-44 Blood monocytes/100 leukocytes 7 % 0-12 Automated blood eosinophils/100 leukocytes 1 % 0-10 Automated blood basophils/100 leukocytes 0 % 0-10 Blood neutrophils automated count (number/volume) 5.0 10*3 1.8-7.8 Blood lymphocytes automated count (number/volume) 2.3 10*3 1.0-4.0 Blood monocytes automated count (number/volume) 0. 6 10*3 0.0-1.0 Automated eosinophil count 0.1 10*3/uL 0 .0-0.3 Automated blood basophil count (count/volume) 0.0 10*3/uL 0.0-0.1 Comprehensive metabolic panel - 03/23/17 02:10 Serum or plasma sodium measurement (moles/volume) 140 mmol/L 135-145 Serum or plasma potassium measurement (moles/volume) 4.1 mmol/L 3.6-5.0 Serum or plasma chloride measurement (moles/volume) 96 mmol/L 98-107 Carbon dioxide 34 mmol/L 21-32 Serum or plasma anion gap determination (moles/volume) 10 mmol/L 5-14 Serum or plasma urea nitrogen measurement (mass/volume ) 14 mg/dL 7-18 Serum or plasma creatinine measurement (mass/volume) 1.02 mg/dL 0.60-1.30 Serum or plasma urea nitrogen/creatinine mass ratio 14 NRG Serum or plasma creatinine measurement w ith calculation of estimated glomerular filtration rate > NRG Serum or plasma glucose measurement (mass/volume) 172 mg/dL 70-105 Serum or plasma calcium measurement (mass/volume) 8.9 mg/dL 8.5-10.1 Serum or plasma total bilirubin measurement (mass/volu me) 0.3 mg/dL 0.1-1.0 Serum or plasma alkaline phosphatase lola surement (enzymatic activity/volume) 50 U/L 40-136 Serum or plasma aspartate aminotransfera se measurement (enzymatic activity/volume) 15 U/L 5-34 Serum or plasma alanine aminotransferase measurement (enzymatic activity/volume) 16 U/L 0-55 Serum or plasma protein measurement (mass/volume) 5.3 g/dL 6.4-8.2 Serum or plasma albumin measurement (mass/volume) 3.6 g/dL 3.2-4.5 Lipid 1996 panel - 03/23/17 02:10 Serum or plasma triglyceride measurement (mass/volume) 74 mg/dL <150 Serum or plasma cholesterol measurement (mass/volume) 167 mg/dL < 200 Serum or plasma cholesterol in HDL measurement (mass/v olume) 66 mg/dL 40-60 Cholesterol in LDL [mass/volume] in serum or plasma by direct assay 73 mg/dL 1-129 Serum or plasma cholesterol in VLDL measurement (mass/ volume) 15 mg/dL 5-40 Serum or plasma troponin i.cardiac measu rement (mass/volume) - 03/23/17 02:10 Serum or plasma troponin i.cardiac measurement (mass/v olume) < ng/mL <0.30 Myoglobin, serum - 03/23/17 02:10 Myoglobin, serum 60.6 ng/mL 10.0-92.0 Complete blood count (CBC) with automate d white blood cell (WBC) differential - 05/05/17 16:50 Blood leukocytes automated count (number/volume) 10.6 10*3/uL 4.3-11.0 Blood erythrocytes automated count (number/volume) 4.29 10*6/uL 4.35-5.85 Venous blood hemoglobin measurement (mass/volume) 13.8 g/dL 13.3-17.7 Blood hematocrit (volume fraction) 42 % 40-54 Automated erythrocyte mean corpuscular volume 97 [ foz_us] 80-99 Automated erythrocyte mean corpuscular h emoglobin (mass per erythrocyte) 32 pg 25-34 Automated erythrocyte mean corpuscular h emoglobin concentration measurement (mass/volume) 33 g/dL 32-36 Automated erythrocyte distribution width ratio 12. 7 % 10.0- 14.5 Automated blood platelet count (count/volume) 171 10*3/uL 130-400 Automated blood platelet mean volume measurement 9.5 [foz_us] 7.4-10.4 Automated blood neutrophils/100 leukocytes 81 % 42-75 Automated blood lymphocytes/100 leukocytes 13 % 12-44 Blood monocytes/100 leukocytes 5 % 0-12 Automated blood eosinophils/100 leukocytes 0 % 0-10 Automated blood basophils/100 leukocytes 0 % 0-10 Blood neutrophils automated count (number/volume) 8.6 10*3 1.8-7.8 Blood lymphocytes automated count (number/volume) 1.4 10*3 1.0-4.0 Blood monocytes automated count (number/volume) 0. 6 10*3 0.0-1.0 Automated eosinophil count 0.0 10*3/uL 0 .0-0.3 Automated blood basophil count (count/volume) 0.0 10*3/uL 0.0-0.1 PT panel in platelet poor plasma by coag ulation assay - 05/05/17 16:50 Prothrombin time (PT) in platelet poor plasma by coagu lation assay 12.3 s 12.2-14.7 INR in platelet poor plasma or blood by coagulation as say 0.9 0.8-1.4 Activated partial thromboplastin time (a PTT) in platelet poor plasma bycoagulation assay - 05/05/17 16:50 Activated partial thromboplastin time (a PTT) in platelet poor plasma bycoagulation assay 28 s 24-35 Fibrin D-dimer FEU measurement in platel et poor plasma (mass/volume) - 05/05/17 16:50 Fibrin D-dimer FEU measurement in platelet poor plasma (mass/volume) 0.38 ug/mL 0.00-0.49 Comprehensive metabolic panel - 05/05/17 16:50 Serum or plasma sodium measurement (moles/volume) 139 mmol/L 135-145 Serum or plasma potassium measurement (moles/volume) 4.4 mmol/L 3.6-5.0 Serum or plasma chloride measurement (moles/volume) 96 mmol/L 98-107 Carbon dioxide 37 mmol/L 21-32 Serum or plasma anion gap determination (moles/volume) 6 mmol/L 5-14 Serum or plasma urea nitrogen measurement (mass/volume ) 9 mg/dL 7-18 Serum or plasma creatinine measurement (mass/volume) 0.88 mg/dL 0.60-1.30 Serum or plasma urea nitrogen/creatinine mass ratio 10 NRG Serum or plasma creatinine measurement w ith calculation of estimated glomerular filtration rate > NRG Serum or plasma glucose measurement (mass/volume) 111 mg/dL 70-105 Serum or plasma calcium measurement (mass/volume) 9.3 mg/dL 8.5-10.1 Serum or plasma total bilirubin measurement (mass/volu me) 0.5 mg/dL 0.1-1.0 Serum or plasma alkaline phosphatase lola surement (enzymatic activity/volume) 72 U/L 40-136 Serum or plasma aspartate aminotransfera se measurement (enzymatic activity/volume) 19 U/L 5-34 Serum or plasma alanine aminotransferase measurement (enzymatic activity/volume) 23 U/L 0-55 Serum or plasma protein measurement (mass/volume) 7.0 g/dL 6.4-8.2 Serum or plasma albumin measurement (mass/volume) 4.1 g/dL 3.2-4.5 Serum or plasma ethanol measurement (mas s/volume) - 05/05/17 16:50 Serum or plasma ethanol measurement (mass/volume) < mg/dL <10 Serum heterophile antibody titer - 05/05 16:54 Serum heterophile antibody titer NEGATIVE NEGATIVE Complete urinalysis with reflex to cultu re - 05/05/17 17:55 Urine color determination YELLOW NRG Urine clarity determination CLEAR NR G Urine pH measurement by test strip 8 5-9 Specific gravity of urine by test strip 1.010 1.016-1.022 Urine protein assay by test strip, semi-quantitative NEGATIVE NEGATIVE Urine glucose detection by automated test strip NE GATIVE NEGATIVE Erythrocytes detection in urine sediment by light micr oscopy NEGATIVE NEGATIVE Urine ketones detection by automated test strip NE GATIVE NEGATIVE Urine nitrite detection by test strip NEGATIVE NEGATIVE Urine total bilirubin detection by test strip NEGA TIVE NEGATIVE Urine urobilinogen measurement by automated test strip (mass/volume) NORMAL NORMAL Urine leukocyte esterase detection by dipstick NEG ATIVE NEGATIVE Automated urine sediment erythrocyte cou nt by microscopy (number/high power field) NONE NRG Automated urine sediment leukocyte count by microscopy (number/high power field) NONE NRG Bacteria detection in urine sediment by light microsco py NEGATIVE NRG Squamous epithelial cells detection in u rine sediment by light microscopy NONE NRG Crystals detection in urine sediment by light microsco py NONE NRG Casts detection in urine sediment by light microscopy NONE NRG Mucus detection in urine sediment by light microscopy NEGATIVE NRG Complete urinalysis with reflex to culture NO NRG Urine drug screening test - 05/05/17 17: 55 Urine phencyclidine detection by screening method NEGATIVE NEGATIVE Urine benzodiazepines detection by screening method NEGATIVE NEGATIVE Urine cocaine detection NEGATIVE NEGATI VE Urine amphetamines detection by screening method N EGATIVE NEGATIVE Urine methamphetamine detection by screening method NEGATIVE NEGATIVE Urine cannabinoids detection by screening method N EGATIVE NEGATIVE Urine opiates detection by screening method NEGATI VE NEGATIVE Urine barbiturates detection NEGATIVE N EGATIVE Screening urine tricyclic antidepressants detection NEGATIVE NEGATIVE Urine methadone detection by screening method NEGA TIVE NEGATIVE Urine oxycodone detection NEGATIVE NEGA TIVE Urine propoxyphene detection NEGATIVE N EGATIVE Streptococcus pyogenes antigen detection - 05/05/17 19:15 Streptococcus pyogenes antigen detection NEGATIVE NEGATIVE Bacterial throat culture - 05/05/17 19:1 5 Bacterial throat culture NBS NRG Sputum Gram stain - 05/05/17 19:50 GRAM STAIN SPUTUM AND MIXED BACTERIAL JOSE NRG Bacterial sputum culture - 05/05/17 19:5 0 FREE TEXT EXTERNAL BETA LACTAMASE NEGATIVE NRG QUANTITY OF GROWTH Scant Growth NRG Bacterial sputum culture [id number] NRG Influenza virus A and B antigen detectio n - 05/05/17 23:55 FLU RESULT NEGATIVE FOR INFLUENZA A AND B ANTIGENS BY IA NRG Methicillin resistant Staphylococcus aur eus (MRSA) screening culture - 05/05/17 23:55 Methicillin resistant Staphylococcus aureus (MRSA) scr eening culture NEG NRG Complete blood count (CBC) with automate d white blood cell (WBC) differential - 05/06/17 04:35 Blood leukocytes automated count (number/volume) 9.5 10*3/uL 4.3-11.0 Blood erythrocytes automated count (number/volume) 4.31 10*6/uL 4.35-5.85 Venous blood hemoglobin measurement (mass/volume) 13.7 g/dL 13.3-17.7 Blood hematocrit (volume fraction) 42 % 40-54 Automated erythrocyte mean corpuscular volume 97 [ foz_us] 80-99 Automated erythrocyte mean corpuscular h emoglobin (mass per erythrocyte) 32 pg 25-34 Automated erythrocyte mean corpuscular h emoglobin concentration measurement (mass/volume) 33 g/dL 32-36 Automated erythrocyte distribution width ratio 12. 8 % 10.0- 14.5 Automated blood platelet count (count/volume) 152 10*3/uL 130-400 Automated blood platelet mean volume measurement 10.4 [foz_us] 7.4-10.4 Automated blood neutrophils/100 leukocytes 92 % 42-75 Automated blood lymphocytes/100 leukocytes 7 % 12-44 Blood monocytes/100 leukocytes 1 % 0-12 Automated blood eosinophils/100 leukocytes 0 % 0-10 Automated blood basophils/100 leukocytes 0 % 0-10 Blood neutrophils automated count (number/volume) 8.8 10*3 1.8-7.8 Blood lymphocytes automated count (number/volume) 0.6 10*3 1.0-4.0 Blood monocytes automated count (number/volume) 0. 1 10*3 0.0-1.0 Automated eosinophil count 0.0 10*3/uL 0 .0-0.3 Automated blood basophil count (count/volume) 0.0 10*3/uL 0.0-0.1 Whole blood basic metabolic panel - 04/10 01/23 04:35 Serum or plasma sodium measurement (moles/volume) 138 mmol/L 135-145 Serum or plasma potassium measurement (moles/volume) 4.5 mmol/L 3.6-5.0 Serum or plasma chloride measurement (moles/volume) 98 mmol/L 98-107 Carbon dioxide 34 mmol/L 21-32 Serum or plasma anion gap determination (moles/volume) 6 mmol/L 5-14 Serum or plasma urea nitrogen measurement (mass/volume ) 12 mg/dL 7-18 Serum or plasma creatinine measurement (mass/volume) 0.81 mg/dL 0.60-1.30 Serum or plasma urea nitrogen/creatinine mass ratio 15 NRG Serum or plasma creatinine measurement w ith calculation of estimated glomerular filtration rate > NRG Serum or plasma glucose measurement (mass/volume) 153 mg/dL 70-105 Serum or plasma calcium measurement (mass/volume) 9.1 mg/dL 8.5-10.1 Serum or plasma phosphate measurement (m ass/volume) - 05/06/17 04:35 Serum or plasma phosphate measurement (mass/volume) 2.9 mg/dL 2.3-4.7 Magnesium - 05/06/17 04:35 Magnesium 1.8 mg/dL 1.8-2.4 Blood manual differential performed dete ction - 05/06/17 04:35 Manual blood segmented neutrophils/100 leukocytes 97 % NRG Manual blood lymphocytes/100 leukocytes 1 % NRG Blood lymphocytes variant/100 leukocytes 2 % NRG Blood erythrocyte morphology finding identification NORMAL NRG Complete blood count (CBC) with automate d white blood cell (WBC) differential - 05/08/17 17:04 Blood leukocytes automated count (number/volume) 12.1 10*3/uL 4.3-11.0 Blood erythrocytes automated count (number/volume) 4.14 10*6/uL 4.35-5.85 Venous blood hemoglobin measurement (mass/volume) 13.6 g/dL 13.3-17.7 Blood hematocrit (volume fraction) 40 % 40-54 Automated erythrocyte mean corpuscular volume 96 [ foz_us] 80-99 Automated erythrocyte mean corpuscular h emoglobin (mass per erythrocyte) 33 pg 25-34 Automated erythrocyte mean corpuscular h emoglobin concentration measurement (mass/volume) 34 g/dL 32-36 Automated erythrocyte distribution width ratio 13. 0 % 10.0- 14.5 Automated blood platelet count (count/volume) 142 10*3/uL 130-400 Automated blood platelet mean volume measurement 10.1 [foz_us] 7.4-10.4 Automated blood neutrophils/100 leukocytes 80 % 42-75 Automated blood lymphocytes/100 leukocytes 11 % 12-44 Blood monocytes/100 leukocytes 9 % 0-12 Automated blood eosinophils/100 leukocytes 0 % 0-10 Automated blood basophils/100 leukocytes 0 % 0-10 Blood neutrophils automated count (number/volume) 9.6 10*3 1.8-7.8 Blood lymphocytes automated count (number/volume) 1.4 10*3 1.0-4.0 Blood monocytes automated count (number/volume) 1. 1 10*3 0.0-1.0 Automated eosinophil count 0.0 10*3/uL 0 .0-0.3 Automated blood basophil count (count/volume) 0.0 10*3/uL 0.0-0.1 Comprehensive metabolic panel - 05/08/17 17:04 Serum or plasma sodium measurement (moles/volume) 136 mmol/L 135-145 Serum or plasma potassium measurement (moles/volume) 4.3 mmol/L 3.6-5.0 Serum or plasma chloride measurement (moles/volume) 91 mmol/L 98-107 Carbon dioxide 36 mmol/L 21-32 Serum or plasma anion gap determination (moles/volume) 9 mmol/L 5-14 Serum or plasma urea nitrogen measurement (mass/volume ) 19 mg/dL 7-18 Serum or plasma creatinine measurement (mass/volume) 0.75 mg/dL 0.60-1.30 Serum or plasma urea nitrogen/creatinine mass ratio 25 NRG Serum or plasma creatinine measurement w ith calculation of estimated glomerular filtration rate > NRG Serum or plasma glucose measurement (mass/volume) 97 mg/dL 70-105 Serum or plasma calcium measurement (mass/volume) 8.9 mg/dL 8.5-10.1 Serum or plasma total bilirubin measurement (mass/volu me) 0.4 mg/dL 0.1-1.0 Serum or plasma alkaline phosphatase lola surement (enzymatic activity/volume) 68 U/L 40-136 Serum or plasma aspartate aminotransfera se measurement (enzymatic activity/volume) 22 U/L 5-34 Serum or plasma alanine aminotransferase measurement (enzymatic activity/volume) 34 U/L 0-55 Serum or plasma protein measurement (mass/volume) 6.4 g/dL 6.4-8.2 Serum or plasma albumin measurement (mass/volume) 3.7 g/dL 3.2-4.5 Complete blood count (CBC) with automate d white blood cell (WBC) differential - 05/09/17 06:14 Blood leukocytes automated count (number/volume) 5.9 10*3/uL 4.3-11.0 Blood erythrocytes automated count (number/volume) 4.16 10*6/uL 4.35-5.85 Venous blood hemoglobin measurement (mass/volume) 13.4 g/dL 13.3-17.7 Blood hematocrit (volume fraction) 40 % 40-54 Automated erythrocyte mean corpuscular volume 97 [ foz_us] 80-99 Automated erythrocyte mean corpuscular h emoglobin (mass per erythrocyte) 32 pg 25-34 Automated erythrocyte mean corpuscular h emoglobin concentration measurement (mass/volume) 33 g/dL 32-36 Automated erythrocyte distribution width ratio 12. 9 % 10.0- 14.5 Automated blood platelet count (count/volume) 127 10*3/uL 130-400 Automated blood platelet mean volume measurement 10.6 [foz_us] 7.4-10.4 Automated blood neutrophils/100 leukocytes 91 % 42-75 Automated blood lymphocytes/100 leukocytes 7 % 12-44 Blood monocytes/100 leukocytes 2 % 0-12 Automated blood eosinophils/100 leukocytes 0 % 0-10 Automated blood basophils/100 leukocytes 0 % 0-10 Blood neutrophils automated count (number/volume) 5.3 10*3 1.8-7.8 Blood lymphocytes automated count (number/volume) 0.4 10*3 1.0-4.0 Blood monocytes automated count (number/volume) 0. 1 10*3 0.0-1.0 Automated eosinophil count 0.0 10*3/uL 0 .0-0.3 Automated blood basophil count (count/volume) 0.0 10*3/uL 0.0-0.1 Comprehensive metabolic panel - 05/09/17 06:14 Serum or plasma sodium measurement (moles/volume) 137 mmol/L 135-145 Serum or plasma potassium measurement (moles/volume) 4.4 mmol/L 3.6-5.0 Serum or plasma chloride measurement (moles/volume) 91 mmol/L 98-107 Carbon dioxide 38 mmol/L 21-32 Serum or plasma anion gap determination (moles/volume) 8 mmol/L 5-14 Serum or plasma urea nitrogen measurement (mass/volume ) 19 mg/dL 7-18 Serum or plasma creatinine measurement (mass/volume) 0.78 mg/dL 0.60-1.30 Serum or plasma urea nitrogen/creatinine mass ratio 24 NRG Serum or plasma creatinine measurement w ith calculation of estimated glomerular filtration rate > NRG Serum or plasma glucose measurement (mass/volume) 191 mg/dL 70-105 Serum or plasma calcium measurement (mass/volume) 9.0 mg/dL 8.5-10.1 Serum or plasma total bilirubin measurement (mass/volu me) 0.3 mg/dL 0.1-1.0 Serum or plasma alkaline phosphatase lola surement (enzymatic activity/volume) 65 U/L 40-136 Serum or plasma aspartate aminotransfera se measurement (enzymatic activity/volume) 19 U/L 5-34 Serum or plasma alanine aminotransferase measurement (enzymatic activity/volume) 30 U/L 0-55 Serum or plasma protein measurement (mass/volume) 6.1 g/dL 6.4-8.2 Serum or plasma albumin measurement (mass/volume) 3.6 g/dL 3.2-4.5 Complete blood count (CBC) with automate d white blood cell (WBC) differential - 05/11/17 04:21 Blood leukocytes automated count (number/volume) 11.0 10*3/uL 4.3-11.0 Blood erythrocytes automated count (number/volume) 4.39 10*6/uL 4.35-5.85 Venous blood hemoglobin measurement (mass/volume) 13.8 g/dL 13.3-17.7 Blood hematocrit (volume fraction) 42 % 40-54 Automated erythrocyte mean corpuscular volume 95 [ foz_us] 80-99 Automated erythrocyte mean corpuscular h emoglobin (mass per erythrocyte) 31 pg 25-34 Automated erythrocyte mean corpuscular h emoglobin concentration measurement (mass/volume) 33 g/dL 32-36 Automated erythrocyte distribution width ratio 12. 7 % 10.0- 14.5 Automated blood platelet count (count/volume) 130 10*3/uL 130-400 Automated blood platelet mean volume measurement 10.3 [foz_us] 7.4-10.4 Automated blood neutrophils/100 leukocytes 86 % 42-75 Automated blood lymphocytes/100 leukocytes 7 % 12-44 Blood monocytes/100 leukocytes 7 % 0-12 Automated blood eosinophils/100 leukocytes 0 % 0-10 Automated blood basophils/100 leukocytes 0 % 0-10 Blood neutrophils automated count (number/volume) 9.5 10*3 1.8-7.8 Blood lymphocytes automated count (number/volume) 0.8 10*3 1.0-4.0 Blood monocytes automated count (number/volume) 0. 8 10*3 0.0-1.0 Automated eosinophil count 0.0 10*3/uL 0 .0-0.3 Automated blood basophil count (count/volume) 0.0 10*3/uL 0.0-0.1 Comprehensive metabolic panel - 05/11/17 04:21 Serum or plasma sodium measurement (moles/volume) 137 mmol/L 135-145 Serum or plasma potassium measurement (moles/volume) 4.7 mmol/L 3.6-5.0 Serum or plasma chloride measurement (moles/volume) 95 mmol/L 98-107 Carbon dioxide 35 mmol/L 21-32 Serum or plasma anion gap determination (moles/volume) 7 mmol/L 5-14 Serum or plasma urea nitrogen measurement (mass/volume ) 22 mg/dL 7-18 Serum or plasma creatinine measurement (mass/volume) 0.83 mg/dL 0.60-1.30 Serum or plasma urea nitrogen/creatinine mass ratio 27 NRG Serum or plasma creatinine measurement w ith calculation of estimated glomerular filtration rate > NRG Serum or plasma glucose measurement (mass/volume) 128 mg/dL 70-105 Serum or plasma calcium measurement (mass/volume) 8.9 mg/dL 8.5-10.1 Serum or plasma total bilirubin measurement (mass/volu me) 0.3 mg/dL 0.1-1.0 Serum or plasma alkaline phosphatase lola surement (enzymatic activity/volume) 57 U/L 40-136 Serum or plasma aspartate aminotransfera se measurement (enzymatic activity/volume) 15 U/L 5-34 Serum or plasma alanine aminotransferase measurement (enzymatic activity/volume) 25 U/L 0-55 Serum or plasma protein measurement (mass/volume) 5.8 g/dL 6.4-8.2 Serum or plasma albumin measurement (mass/volume) 3.3 g/dL 3.2-4.5 Cardiac Panel - 07/20/17 11:13 CK 55 U/L 26-174 CK-MB 2.4 ng/ml 0.0-9.2 Myoglobin 35.5 ng/ml 1.6-154.9 Troponin <0.020 ng/mL 0.0-0.4 BNP - 07/20/17 11:13 BNP 39.30 pg/ml 0.00-100.00 Cardiac Panel - 07/20/17 13:29 CK 52 U/L 26-174 CK-MB 2.4 ng/ml 0.0-9.2 Myoglobin 34.0 ng/ml 1.6-154.9 Troponin <0.020 ng/mL 0.0-0.4 Complete blood count (CBC) with automate d white blood cell (WBC) differential - 07/25/17 11:20 Blood leukocytes automated count (number/volume) 6.6 10*3/uL 4.3-11.0 Blood erythrocytes automated count (number/volume) 4.26 10*6/uL 4.35-5.85 Venous blood hemoglobin measurement (mass/volume) 13.3 g/dL 13.3-17.7 Blood hematocrit (volume fraction) 43 % 40-54 Automated erythrocyte mean corpuscular volume 100 [foz_us] 80-99 Automated erythrocyte mean corpuscular h emoglobin (mass per erythrocyte) 31 pg 25-34 Automated erythrocyte mean corpuscular h emoglobin concentration measurement (mass/volume) 31 g/dL 32-36 Automated erythrocyte distribution width ratio 13. 6 % 10.0- 14.5 Automated blood platelet count (count/volume) 146 10*3/uL 130-400 Automated blood platelet mean volume measurement 10.0 [foz_us] 7.4-10.4 Automated blood neutrophils/100 leukocytes 74 % 42-75 Automated blood lymphocytes/100 leukocytes 15 % 12-44 Blood monocytes/100 leukocytes 10 % 0-12 Automated blood eosinophils/100 leukocytes 0 % 0-10 Automated blood basophils/100 leukocytes 0 % 0-10 Blood neutrophils automated count (number/volume) 4.9 10*3 1.8-7.8 Blood lymphocytes automated count (number/volume) 1.0 10*3 1.0-4.0 Blood monocytes automated count (number/volume) 0. 7 10*3 0.0-1.0 Automated eosinophil count 0.0 10*3/uL 0 .0-0.3 Automated blood basophil count (count/volume) 0.0 10*3/uL 0.0-0.1 Comprehensive metabolic panel - 07/25/17 11:20 Serum or plasma sodium measurement (moles/volume) 138 mmol/L 135-145 Serum or plasma potassium measurement (moles/volume) 4.4 mmol/L 3.6-5.0 Serum or plasma chloride measurement (moles/volume) 94 mmol/L 98-107 Carbon dioxide 34 mmol/L 21-32 Serum or plasma anion gap determination (moles/volume) 10 mmol/L 5-14 Serum or plasma urea nitrogen measurement (mass/volume ) 12 mg/dL 7-18 Serum or plasma creatinine measurement (mass/volume) 0.80 mg/dL 0.60-1.30 Serum or plasma urea nitrogen/creatinine mass ratio 15 NRG Serum or plasma creatinine measurement w ith calculation of estimated glomerular filtration rate > NRG Serum or plasma glucose measurement (mass/volume) 110 mg/dL 70-105 Serum or plasma calcium measurement (mass/volume) 9.0 mg/dL 8.5-10.1 Serum or plasma total bilirubin measurement (mass/volu me) 0.2 mg/dL 0.1-1.0 Serum or plasma alkaline phosphatase lola surement (enzymatic activity/volume) 85 U/L 40-136 Serum or plasma aspartate aminotransfera se measurement (enzymatic activity/volume) 20 U/L 5-34 Serum or plasma alanine aminotransferase measurement (enzymatic activity/volume) 18 U/L 0-55 Serum or plasma protein measurement (mass/volume) 6.8 g/dL 6.4-8.2 Serum or plasma albumin measurement (mass/volume) 4.0 g/dL 3.2-4.5 Arterial blood gas measurement - 8 11:46 Blood pCO2 95 mm[Hg] 35-45 Blood pO2 67 mm[Hg] 79-93 Arterial blood bicarbonate measurement (moles/volume) 39 mmol/L 23-27 Arterial blood base excess by calculation 11.9 mmo l/L -2.5-2.5 Arterial blood oxygen saturation measurement 94 % 94-100 * Inhaled oxygen flow rate 5L NRG Arterial blood pH measurement with patient temperature correction 7.24 7.37-7.43 Arterial blood carbon dioxide, total measurement (mole s/volume) 42.4 mmol/L 21.0-31.0 Body site RIGHT RADIAL NRG Assessment of wrist artery patency prior to arterial p uncture POSITIVE NRG Setting of ventilation mode NO NR G Measurement of body temperature 98.0 NRG Influenza virus A and B antigen detectio n - 07/25/17 11:57 FLU RESULT NEGATIVE FOR INFLUENZA A AND B ANTIGENS BY IA NRG Bacterial blood culture - 07/25/17 11:57 QUANTITY OF GROWTH . NR Bacterial blood culture SEE COMMEN NR Blood lactic acid measurement (moles/vol ume) - 07/25/17 12:27 Blood lactic acid measurement (moles/volume) 0.68 mmol/L 0.50-2.00 Bacterial blood culture - 07/25/17 12:27 Bacterial blood culture NG NRG Methicillin resistant Staphylococcus aur eus (MRSA) screening culture - 07/25/17 14:35 Methicillin resistant Staphylococcus aureus (MRSA) scr eening culture NEG NR Whole blood basic metabolic panel - 07/10 12/24 03:45 Serum or plasma sodium measurement (moles/volume) 139 mmol/L 135-145 Serum or plasma potassium measurement (moles/volume) 4.7 mmol/L 3.6-5.0 Serum or plasma chloride measurement (moles/volume) 95 mmol/L 98-107 Carbon dioxide 34 mmol/L 21-32 Serum or plasma anion gap determination (moles/volume) 10 mmol/L 5-14 Serum or plasma urea nitrogen measurement (mass/volume ) 14 mg/dL 7-18 Serum or plasma creatinine measurement (mass/volume) 0.70 mg/dL 0.60-1.30 Serum or plasma urea nitrogen/creatinine mass ratio 20 NRG Serum or plasma creatinine measurement w ith calculation of estimated glomerular filtration rate > NRG Serum or plasma glucose measurement (mass/volume) 98 mg/dL 70-105 Serum or plasma calcium measurement (mass/volume) 8.7 mg/dL 8.5-10.1 Magnesium - 07/26/17 03:45 Magnesium 1.8 mg/dL 1.8-2.4 Whole blood basic metabolic panel - 07/10 01/24 03:25 Serum or plasma sodium measurement (moles/volume) 138 mmol/L 135-145 Serum or plasma potassium measurement (moles/volume) 4.9 mmol/L 3.6-5.0 Serum or plasma chloride measurement (moles/volume) 98 mmol/L 98-107 Carbon dioxide 34 mmol/L -32 Serum or plasma anion gap determination (moles/volume) 6 mmol/L 5-14 Serum or plasma urea nitrogen measurement (mass/volume ) 13 mg/dL 7-18 Serum or plasma creatinine measurement (mass/volume) 0.72 mg/dL 0.60-1.30 Serum or plasma urea nitrogen/creatinine mass ratio 18 NRG Serum or plasma creatinine measurement w ith calculation of estimated glomerular filtration rate > NRG Serum or plasma glucose measurement (mass/volume) 120 mg/dL 70-105 Serum or plasma calcium measurement (mass/volume) 8.5 mg/dL 8.5-10.1 Magnesium - 07/27/17 03:25 Magnesium 1.8 mg/dL 1.8-2.4 Whole blood basic metabolic panel - 07/10 02/24 03:20 Serum or plasma sodium measurement (moles/volume) 140 mmol/L 135-145 Serum or plasma potassium measurement (moles/volume) 4.4 mmol/L 3.6-5.0 Serum or plasma chloride measurement (moles/volume) 99 mmol/L 98-107 Carbon dioxide 34 mmol/L -32 Serum or plasma anion gap determination (moles/volume) 7 mmol/L 5-14 Serum or plasma urea nitrogen measurement (mass/volume ) 14 mg/dL 7-18 Serum or plasma creatinine measurement (mass/volume) 0.72 mg/dL 0.60-1.30 Serum or plasma urea nitrogen/creatinine mass ratio 19 NRG Serum or plasma creatinine measurement w ith calculation of estimated glomerular filtration rate > NRG Serum or plasma glucose measurement (mass/volume) 165 mg/dL 70-105 Serum or plasma calcium measurement (mass/volume) 8.4 mg/dL 8.5-10.1 Magnesium - 07/28/17 03:20 Magnesium 1.8 mg/dL 1.8-2.4 Whole blood basic metabolic panel - 07/11 03:30 Serum or plasma sodium measurement (moles/volume) 142 mmol/L 135-145 Serum or plasma potassium measurement (moles/volume) 4.2 mmol/L 3.6-5.0 Serum or plasma chloride measurement (moles/volume) 101 mmol/L 98-107 Carbon dioxide 35 mmol/L 21-32 Serum or plasma anion gap determination (moles/volume) 6 mmol/L 5-14 Serum or plasma urea nitrogen measurement (mass/volume ) 16 mg/dL 7-18 Serum or plasma creatinine measurement (mass/volume) 0.76 mg/dL 0.60-1.30 Serum or plasma urea nitrogen/creatinine mass ratio 21 NRG Serum or plasma creatinine measurement w ith calculation of estimated glomerular filtration rate > NRG Serum or plasma glucose measurement (mass/volume) 146 mg/dL 70-105 Serum or plasma calcium measurement (mass/volume) 8.3 mg/dL 8.5-10.1 Magnesium - 07/29/17 03:30 Magnesium 1.9 mg/dL 1.8-2.4 Complete blood count (CBC) with automate d white blood cell (WBC) differential - 07/29/17 03:30 Blood leukocytes automated count (number/volume) 7.8 10*3/uL 4.3-11.0 Blood erythrocytes automated count (number/volume) 3.69 10*6/uL 4.35-5.85 Venous blood hemoglobin measurement (mass/volume) 11.3 g/dL 13.3-17.7 Blood hematocrit (volume fraction) 37 % 40-54 Automated erythrocyte mean corpuscular volume 99 [ foz_us] 80-99 Automated erythrocyte mean corpuscular h emoglobin (mass per erythrocyte) 31 pg 25-34 Automated erythrocyte mean corpuscular h emoglobin concentration measurement (mass/volume) 31 g/dL 32-36 Automated erythrocyte distribution width ratio 13. 6 % 10.0- 14.5 Automated blood platelet count (count/volume) 117 10*3/uL 130-400 Automated blood platelet mean volume measurement 11.2 [foz_us] 7.4-10.4 Automated blood neutrophils/100 leukocytes 92 % 42-75 Automated blood lymphocytes/100 leukocytes 6 % 12-44 Blood monocytes/100 leukocytes 2 % 0-12 Automated blood eosinophils/100 leukocytes 0 % 0-10 Automated blood basophils/100 leukocytes 0 % 0-10 Blood neutrophils automated count (number/volume) 7.1 10*3 1.8-7.8 Blood lymphocytes automated count (number/volume) 0.5 10*3 1.0-4.0 Blood monocytes automated count (number/volume) 0. 2 10*3 0.0-1.0 Automated eosinophil count 0.0 10*3/uL 0 .0-0.3 Automated blood basophil count (count/volume) 0.0 10*3/uL 0.0-0.1 Blood manual differential performed dete ction - 07/29/17 03:30 Blood monocytes/100 leukocytes 1 % NRG Manual blood segmented neutrophils/100 leukocytes 93 % NRG Blood band neutrophils/100 leukocytes 0 % NRG Manual blood lymphocytes/100 leukocytes 6 % NRG Manual eosinophils/100 leukocytes in nose 0 % NRG Manual blood basophils/100 leukocytes 0 % NRG Blood toxic granules detection by light microscopy 1+ NRG Blood poikilocytosis detection by light microscopy SLIGHT NRG Serum or plasma phosphate measurement (m ass/volume) - 07/29/17 03:30 Serum or plasma phosphate measurement (mass/volume) 2.7 mg/dL 2.3-4.7 Complete blood count (CBC) with automate d white blood cell (WBC) differential - 07/30/17 02:50 Blood leukocytes automated count (number/volume) 7.4 10*3/uL 4.3-11.0 Blood erythrocytes automated count (number/volume) 3.78 10*6/uL 4.35-5.85 Venous blood hemoglobin measurement (mass/volume) 11.7 g/dL 13.3-17.7 Blood hematocrit (volume fraction) 37 % 40-54 Automated erythrocyte mean corpuscular volume 98 [ z_us] 80-99 Automated erythrocyte mean corpuscular h emoglobin (mass per erythrocyte) 31 pg 25-34 Automated erythrocyte mean corpuscular h emoglobin concentration measurement (mass/volume) 32 g/dL 32-36 Automated erythrocyte distribution width ratio 13. 5 % 10.0- 14.5 Automated blood platelet count (count/volume) 110 10*3/uL 130-400 Automated blood platelet mean volume measurement 10.5 [foz_us] 7.4-10.4 Automated blood neutrophils/100 leukocytes 91 % 42-75 Automated blood lymphocytes/100 leukocytes 6 % 12-44 Blood monocytes/100 leukocytes 3 % 0-12 Automated blood eosinophils/100 leukocytes 0 % 0-10 Automated blood basophils/100 leukocytes 0 % 0-10 Blood neutrophils automated count (number/volume) 6.8 10*3 1.8-7.8 Blood lymphocytes automated count (number/volume) 0.4 10*3 1.0-4.0 Blood monocytes automated count (number/volume) 0. 2 10*3 0.0-1.0 Automated eosinophil count 0.0 10*3/uL 0 .0-0.3 Automated blood basophil count (count/volume) 0.0 10*3/uL 0.0-0.1 Whole blood basic metabolic panel - 07/11 06/26 02:50 Serum or plasma sodium measurement (moles/volume) 140 mmol/L 135-145 Serum or plasma potassium measurement (moles/volume) 4.2 mmol/L 3.6-5.0 Serum or plasma chloride measurement (moles/volume) 98 mmol/L 98-107 Carbon dioxide 35 mmol/L 21-32 Serum or plasma anion gap determination (moles/volume) 7 mmol/L 5-14 Serum or plasma urea nitrogen measurement (mass/volume ) 16 mg/dL 7-18 Serum or plasma creatinine measurement (mass/volume) 0.73 mg/dL 0.60-1.30 Serum or plasma urea nitrogen/creatinine mass ratio 22 NRG Serum or plasma creatinine measurement w ith calculation of estimated glomerular filtration rate > NRG Serum or plasma glucose measurement (mass/volume) 136 mg/dL 70-105 Serum or plasma calcium measurement (mass/volume) 8.2 mg/dL 8.5-10.1 Serum or plasma phosphate measurement (m ass/volume) - 07/30/17 02:50 Serum or plasma phosphate measurement (mass/volume) 3.2 mg/dL 2.3-4.7 Magnesium - 07/30/17 02:50 Magnesium 1.8 mg/dL 1.8-2.4 Serum or plasma lithium measurement (mol es/volume) - 07/30/17 02:50 BNP level 296.6 pg/mL <100.0 Complete blood count (CBC) with automate d white blood cell (WBC) differential - 07/31/17 06:11 Blood leukocytes automated count (number/volume) 7.9 10*3/uL 4.3-11.0 Blood erythrocytes automated count (number/volume) 4.16 10*6/uL 4.35-5.85 Venous blood hemoglobin measurement (mass/volume) 12.8 g/dL 13.3-17.7 Blood hematocrit (volume fraction) 40 % 40-54 Automated erythrocyte mean corpuscular volume 96 [ foz_us] 80-99 Automated erythrocyte mean corpuscular h emoglobin (mass per erythrocyte) 31 pg 25-34 Automated erythrocyte mean corpuscular h emoglobin concentration measurement (mass/volume) 32 g/dL 32-36 Automated erythrocyte distribution width ratio 13. 1 % 10.0- 14.5 Automated blood platelet count (count/volume) 121 10*3/uL 130-400 Automated blood platelet mean volume measurement 10.5 [foz_us] 7.4-10.4 Automated blood neutrophils/100 leukocytes 76 % 42-75 Automated blood lymphocytes/100 leukocytes 14 % 12-44 Blood monocytes/100 leukocytes 10 % 0-12 Automated blood eosinophils/100 leukocytes 0 % 0-10 Automated blood basophils/100 leukocytes 0 % 0-10 Blood neutrophils automated count (number/volume) 6.0 10*3 1.8-7.8 Blood lymphocytes automated count (number/volume) 1.1 10*3 1.0-4.0 Blood monocytes automated count (number/volume) 0. 8 10*3 0.0-1.0 Automated eosinophil count 0.0 10*3/uL 0 .0-0.3 Automated blood basophil count (count/volume) 0.0 10*3/uL 0.0-0.1 Whole blood basic metabolic panel - 07/11 07/27 06:11 Serum or plasma sodium measurement (moles/volume) 140 mmol/L 135-145 Serum or plasma potassium measurement (moles/volume) 3.6 mmol/L 3.6-5.0 Serum or plasma chloride measurement (moles/volume) 91 mmol/L 98-107 Carbon dioxide 40 mmol/L 21-32 Serum or plasma anion gap determination (moles/volume) 9 mmol/L 5-14 Serum or plasma urea nitrogen measurement (mass/volume ) 18 mg/dL 7-18 Serum or plasma creatinine measurement (mass/volume) 0.69 mg/dL 0.60-1.30 Serum or plasma urea nitrogen/creatinine mass ratio 26 NRG Serum or plasma creatinine measurement w ith calculation of estimated glomerular filtration rate > NRG Serum or plasma glucose measurement (mass/volume) 118 mg/dL 70-105 Serum or plasma calcium measurement (mass/volume) 8.1 mg/dL 8.5-10.1 Serum or plasma phosphate measurement (m ass/volume) - 07/31/17 06:11 Serum or plasma phosphate measurement (mass/volume) 2.4 mg/dL 2.3-4.7 Magnesium - 07/31/17 06:11 Magnesium 1.8 mg/dL 1.8-2.4 Complete blood count (CBC) with automate d white blood cell (WBC) differential - 09/14/17 19:12 Blood leukocytes automated count (number/volume) 6.8 10*3/uL 4.3-11.0 Blood erythrocytes automated count (number/volume) 4.66 10*6/uL 4.35-5.85 Venous blood hemoglobin measurement (mass/volume) 14.3 g/dL 13.3-17.7 Blood hematocrit (volume fraction) 45 % 40-54 Automated erythrocyte mean corpuscular volume 96 [ foz_us] 80-99 Automated erythrocyte mean corpuscular h emoglobin (mass per erythrocyte) 31 pg 25-34 Automated erythrocyte mean corpuscular h emoglobin concentration measurement (mass/volume) 32 g/dL 32-36 Automated erythrocyte distribution width ratio 12. 9 % 10.0- 14.5 Automated blood platelet count (count/volume) 129 10*3/uL 130-400 Automated blood platelet mean volume measurement 11.0 [foz_us] 7.4-10.4 Automated blood neutrophils/100 leukocytes 55 % 42-75 Automated blood lymphocytes/100 leukocytes 32 % 12-44 Blood monocytes/100 leukocytes 11 % 0-12 Automated blood eosinophils/100 leukocytes 2 % 0-10 Automated blood basophils/100 leukocytes 0 % 0-10 Blood neutrophils automated count (number/volume) 3.7 10*3 1.8-7.8 Blood lymphocytes automated count (number/volume) 2.2 10*3 1.0-4.0 Blood monocytes automated count (number/volume) 0. 7 10*3 0.0-1.0 Automated eosinophil count 0.1 10*3/uL 0 .0-0.3 Automated blood basophil count (count/volume) 0.0 10*3/uL 0.0-0.1 Comprehensive metabolic panel - 09/14/17 19:12 Serum or plasma sodium measurement (moles/volume) 139 mmol/L 135-145 Serum or plasma potassium measurement (moles/volume) 4.4 mmol/L 3.6-5.0 Serum or plasma chloride measurement (moles/volume) 95 mmol/L 98-107 Carbon dioxide 38 mmol/L 21-32 Serum or plasma anion gap determination (moles/volume) 6 mmol/L 5-14 Serum or plasma urea nitrogen measurement (mass/volume ) 7 mg/dL 7-18 Serum or plasma creatinine measurement (mass/volume) 0.79 mg/dL 0.60-1.30 Serum or plasma urea nitrogen/creatinine mass ratio 9 NRG Serum or plasma creatinine measurement w ith calculation of estimated glomerular filtration rate > NRG Serum or plasma glucose measurement (mass/volume) 87 mg/dL 70-105 Serum or plasma calcium measurement (mass/volume) 9.7 mg/dL 8.5-10.1 Serum or plasma total bilirubin measurement (mass/volu me) 0.4 mg/dL 0.1-1.0 Serum or plasma alkaline phosphatase lola surement (enzymatic activity/volume) 66 U/L 40-136 Serum or plasma aspartate aminotransfera se measurement (enzymatic activity/volume) 19 U/L 5-34 Serum or plasma alanine aminotransferase measurement (enzymatic activity/volume) 17 U/L 0-55 Serum or plasma protein measurement (mass/volume) 7.4 g/dL 6.4-8.2 Serum or plasma albumin measurement (mass/volume) 4.5 g/dL 3.2-4.5 Magnesium - 09/14/17 19:12 Magnesium 2.0 mg/dL 1.8-2.4 Serum or plasma creatine kinase measurem ent (enzymatic activity/volume) - 09/14/17 19:12 Serum or plasma creatine kinase measurem ent (enzymatic activity/volume) 67 U/L 30-200 Serum or plasma creatine kinase MB measu rement (enzymatic activity/volume) - 09/14/17 19:12 Serum or plasma creatine kinase MB measu rement (enzymatic activity/volume) 2.1 ng/mL <6.6 Serum or plasma troponin i.cardiac measu rement (mass/volume) - 09/14/17 19:12 Serum or plasma troponin i.cardiac measurement (mass/v olume) < ng/mL <0.30 PT panel in platelet poor plasma by coag ulation assay - 09/14/17 19:12 Prothrombin time (PT) in platelet poor plasma by coagu lation assay 12.5 s 12.2-14.7 INR in platelet poor plasma or blood by coagulation as say 0.9 0.8-1.4 Activated partial thromboplastin time (a PTT) in platelet poor plasma bycoagulation assay - 09/14/17 19:12 Activated partial thromboplastin time (a PTT) in platelet poor plasma bycoagulation assay 24 s 24-35 Serum or plasma amylase measurement (enz ymatic activity/volume) - 09/14/17 19:12 Serum or plasma amylase measurement (enzymatic activit y/volume) 49 U/L 25-125 Lipase - 09/14/17 19:12 Lipase 24 U/L 8-78 Serum or plasma lithium measurement (mol es/volume) - 09/14/17 19:12 BNP level 29.6 pg/mL <100.0 Serum or plasma troponin i.cardiac measu rement (mass/volume) - 09/15/17 01:10 Serum or plasma troponin i.cardiac measurement (mass/v olume) < ng/mL <0.30 Complete blood count (CBC) with automate d white blood cell (WBC) differential - 09/15/17 03:30 Blood leukocytes automated count (number/volume) 4.0 10*3/uL 4.3-11.0 Blood erythrocytes automated count (number/volume) 4.17 10*6/uL 4.35-5.85 Venous blood hemoglobin measurement (mass/volume) 12.9 g/dL 13.3-17.7 Blood hematocrit (volume fraction) 40 % 40-54 Automated erythrocyte mean corpuscular volume 96 [ foz_us] 80-99 Automated erythrocyte mean corpuscular h emoglobin (mass per erythrocyte) 31 pg 25-34 Automated erythrocyte mean corpuscular h emoglobin concentration measurement (mass/volume) 32 g/dL 32-36 Automated erythrocyte distribution width ratio 12. 6 % 10.0- 14.5 Automated blood platelet count (count/volume) 107 10*3/uL 130-400 Automated blood platelet mean volume measurement 10.8 [foz_us] 7.4-10.4 Automated blood neutrophils/100 leukocytes 90 % 42-75 Automated blood lymphocytes/100 leukocytes 10 % 12-44 Blood monocytes/100 leukocytes 0 % 0-12 Automated blood eosinophils/100 leukocytes 0 % 0-10 Automated blood basophils/100 leukocytes 0 % 0-10 Blood neutrophils automated count (number/volume) 3.6 10*3 1.8-7.8 Blood lymphocytes automated count (number/volume) 0.4 10*3 1.0-4.0 Blood monocytes automated count (number/volume) 0. 0 10*3 0.0-1.0 Automated eosinophil count 0.0 10*3/uL 0 .0-0.3 Automated blood basophil count (count/volume) 0.0 10*3/uL 0.0-0.1 Comprehensive metabolic panel - 09/15/17 03:30 Serum or plasma sodium measurement (moles/volume) 138 mmol/L 135-145 Serum or plasma potassium measurement (moles/volume) 4.3 mmol/L 3.6-5.0 Serum or plasma chloride measurement (moles/volume) 93 mmol/L 98-107 Carbon dioxide 34 mmol/L 21-32 Serum or plasma anion gap determination (moles/volume) 11 mmol/L 5-14 Serum or plasma urea nitrogen measurement (mass/volume ) 9 mg/dL 7-18 Serum or plasma creatinine measurement (mass/volume) 0.83 mg/dL 0.60-1.30 Serum or plasma urea nitrogen/creatinine mass ratio 11 NRG Serum or plasma creatinine measurement w ith calculation of estimated glomerular filtration rate > NRG Serum or plasma glucose measurement (mass/volume) 193 mg/dL 70-105 Serum or plasma calcium measurement (mass/volume) 9.5 mg/dL 8.5-10.1 Serum or plasma total bilirubin measurement (mass/volu me) 0.3 mg/dL 0.1-1.0 Serum or plasma alkaline phosphatase lola surement (enzymatic activity/volume) 57 U/L 40-136 Serum or plasma aspartate aminotransfera se measurement (enzymatic activity/volume) 13 U/L 5-34 Serum or plasma alanine aminotransferase measurement (enzymatic activity/volume) 14 U/L 0-55 Serum or plasma protein measurement (mass/volume) 5.9 g/dL 6.4-8.2 Serum or plasma albumin measurement (mass/volume) 3.8 g/dL 3.2-4.5 Myoglobin, serum - 09/15/17 03:30 Myoglobin, serum 27.2 ng/mL 10.0-92.0 Lipid 1996 panel - 09/15/17 03:30 Serum or plasma triglyceride measurement (mass/volume) 36 mg/dL <150 Serum or plasma cholesterol measurement (mass/volume) 177 mg/dL < 200 Serum or plasma cholesterol in HDL measurement (mass/v olume) 76 mg/dL 40-60 Cholesterol in LDL [mass/volume] in serum or plasma by direct assay 86 mg/dL 1-129 Serum or plasma cholesterol in VLDL measurement (mass/ volume) 7 mg/dL 5-40 Complete blood count (CBC) with automate d white blood cell (WBC) differential - 10/13/17 18:35 Blood leukocytes automated count (number/volume) 6.4 10*3/uL 4.3-11.0 Blood erythrocytes automated count (number/volume) 4.74 10*6/uL 4.35-5.85 Venous blood hemoglobin measurement (mass/volume) 14.2 g/dL 13.3-17.7 Blood hematocrit (volume fraction) 45 % 40-54 Automated erythrocyte mean corpuscular volume 95 [ foz_us] 80-99 Automated erythrocyte mean corpuscular h emoglobin (mass per erythrocyte) 30 pg 25-34 Automated erythrocyte mean corpuscular h emoglobin concentration measurement (mass/volume) 32 g/dL 32-36 Automated erythrocyte distribution width ratio 13. 0 % 10.0- 14.5 Automated blood platelet count (count/volume) 172 10*3/uL 130-400 Automated blood platelet mean volume measurement 10.0 [foz_us] 7.4-10.4 Automated blood neutrophils/100 leukocytes 71 % 42-75 Automated blood lymphocytes/100 leukocytes 21 % 12-44 Blood monocytes/100 leukocytes 8 % 0-12 Automated blood eosinophils/100 leukocytes 0 % 0-10 Automated blood basophils/100 leukocytes 0 % 0-10 Blood neutrophils automated count (number/volume) 4.6 10*3 1.8-7.8 Blood lymphocytes automated count (number/volume) 1.3 10*3 1.0-4.0 Blood monocytes automated count (number/volume) 0. 5 10*3 0.0-1.0 Automated eosinophil count 0.0 10*3/uL 0 .0-0.3 Automated blood basophil count (count/volume) 0.0 10*3/uL 0.0-0.1 PT panel in platelet poor plasma by coag ulation assay - 10/13/17 18:35 Prothrombin time (PT) in platelet poor plasma by coagu lation assay 11.4 s 12.2-14.7 INR in platelet poor plasma or blood by coagulation as say 0.8 0.8-1.4 Activated partial thromboplastin time (a PTT) in platelet poor plasma bycoagulation assay - 10/13/17 18:35 Activated partial thromboplastin time (a PTT) in platelet poor plasma bycoagulation assay 37 s 24-35 Comprehensive metabolic panel - 10/13/17 18:35 Serum or plasma sodium measurement (moles/volume) 144 mmol/L 135-145 Serum or plasma potassium measurement (moles/volume) 4.5 mmol/L 3.6-5.0 Serum or plasma chloride measurement (moles/volume) 92 mmol/L 98-107 Carbon dioxide 41 mmol/L 21-32 Serum or plasma anion gap determination (moles/volume) 11 mmol/L 5-14 Serum or plasma urea nitrogen measurement (mass/volume ) 12 mg/dL 7-18 Serum or plasma creatinine measurement (mass/volume) 0.90 mg/dL 0.60-1.30 Serum or plasma urea nitrogen/creatinine mass ratio 13 NRG Serum or plasma creatinine measurement w ith calculation of estimated glomerular filtration rate > NRG Serum or plasma glucose measurement (mass/volume) 112 mg/dL 70-105 Serum or plasma calcium measurement (mass/volume) 10.3 mg/dL 8.5-10.1 Serum or plasma total bilirubin measurement (mass/volu me) 0.6 mg/dL 0.1-1.0 Serum or plasma alkaline phosphatase lola surement (enzymatic activity/volume) 78 U/L 40-136 Serum or plasma aspartate aminotransfera se measurement (enzymatic activity/volume) 17 U/L 5-34 Serum or plasma alanine aminotransferase measurement (enzymatic activity/volume) 17 U/L 0-55 Serum or plasma protein measurement (mass/volume) 7.9 g/dL 6.4-8.2 Serum or plasma albumin measurement (mass/volume) 4.8 g/dL 3.2-4.5 Magnesium - 10/13/17 18:35 Magnesium 2.1 mg/dL 1.8-2.4 Myoglobin, serum - 10/13/17 18:35 Myoglobin, serum 38.8 ng/mL 10.0-92.0 Serum or plasma troponin i.cardiac measu rement (mass/volume) - 10/13/17 18:35 Serum or plasma troponin i.cardiac measurement (mass/v olume) < ng/mL <0.30 Lipase - 10/13/17 18:35 Lipase 23 U/L 8-78 Myoglobin, serum - 10/13/17 18:35 Myoglobin, serum 38.8 ng/mL 10.0-92.0 Lipase - 10/13/17 18:35 Lipase 23 U/L 8-78 Complete blood count (CBC) with automate d white blood cell (WBC) differential - 10/14/17 05:14 Blood leukocytes automated count (number/volume) 4.5 10*3/uL 4.3-11.0 Blood erythrocytes automated count (number/volume) 4.15 10*6/uL 4.35-5.85 Venous blood hemoglobin measurement (mass/volume) 12.6 g/dL 13.3-17.7 Blood hematocrit (volume fraction) 40 % 40-54 Automated erythrocyte mean corpuscular volume 97 [ foz_us] 80-99 Automated erythrocyte mean corpuscular h emoglobin (mass per erythrocyte) 30 pg 25-34 Automated erythrocyte mean corpuscular h emoglobin concentration measurement (mass/volume) 31 g/dL 32-36 Automated erythrocyte distribution width ratio 13. 0 % 10.0- 14.5 Automated blood platelet count (count/volume) 145 10*3/uL 130-400 Automated blood platelet mean volume measurement 10.3 [foz_us] 7.4-10.4 Automated blood neutrophils/100 leukocytes 83 % 42-75 Automated blood lymphocytes/100 leukocytes 12 % 12-44 Blood monocytes/100 leukocytes 5 % 0-12 Automated blood eosinophils/100 leukocytes 0 % 0-10 Automated blood basophils/100 leukocytes 0 % 0-10 Blood neutrophils automated count (number/volume) 3.7 10*3 1.8-7.8 Blood lymphocytes automated count (number/volume) 0.5 10*3 1.0-4.0 Blood monocytes automated count (number/volume) 0. 2 10*3 0.0-1.0 Automated eosinophil count 0.0 10*3/uL 0 .0-0.3 Automated blood basophil count (count/volume) 0.0 10*3/uL 0.0-0.1 Whole blood basic metabolic panel - 01/24 05:14 Serum or plasma sodium measurement (moles/volume) 142 mmol/L 135-145 Serum or plasma potassium measurement (moles/volume) 4.5 mmol/L 3.6-5.0 Serum or plasma chloride measurement (moles/volume) 96 mmol/L 98-107 Carbon dioxide 41 mmol/L 21-32 Serum or plasma anion gap determination (moles/volume) 5 mmol/L 5-14 Serum or plasma urea nitrogen measurement (mass/volume ) 16 mg/dL 7-18 Serum or plasma creatinine measurement (mass/volume) 0.77 mg/dL 0.60-1.30 Serum or plasma urea nitrogen/creatinine mass ratio 21 NRG Serum or plasma creatinine measurement w ith calculation of estimated glomerular filtration rate > NRG Serum or plasma glucose measurement (mass/volume) 130 mg/dL 70-105 Serum or plasma calcium measurement (mass/volume) 9.4 mg/dL 8.5-10.1 Lipid 1996 panel - 10/14/17 05:14 Serum or plasma triglyceride measurement (mass/volume) 40 mg/dL <150 Serum or plasma cholesterol measurement (mass/volume) 209 mg/dL < 200 Serum or plasma cholesterol in HDL measurement (mass/v olume) 86 mg/dL 40-60 Cholesterol in LDL [mass/volume] in serum or plasma by direct assay 110 mg/dL 1-129 Serum or plasma cholesterol in VLDL measurement (mass/ volume) 8 mg/dL 5-40 Complete blood count (CBC) with automate d white blood cell (WBC) differential - 11/15/17 13:24 Blood leukocytes automated count (number/volume) 5.9 10*3/uL 4.3-11.0 Blood erythrocytes automated count (number/volume) 3.56 10*6/uL 4.35-5.85 Venous blood hemoglobin measurement (mass/volume) 10.9 g/dL 13.3-17.7 Blood hematocrit (volume fraction) 35 % 40-54 Automated erythrocyte mean corpuscular volume 99 [ foz_us] 80-99 Automated erythrocyte mean corpuscular h emoglobin (mass per erythrocyte) 31 pg 25-34 Automated erythrocyte mean corpuscular h emoglobin concentration measurement (mass/volume) 31 g/dL 32-36 Automated erythrocyte distribution width ratio 12. 8 % 10.0- 14.5 Automated blood platelet count (count/volume) 136 10*3/uL 130-400 Automated blood platelet mean volume measurement 9.8 [foz_us] 7.4-10.4 Automated blood neutrophils/100 leukocytes 67 % 42-75 Automated blood lymphocytes/100 leukocytes 24 % 12-44 Blood monocytes/100 leukocytes 9 % 0-12 Automated blood eosinophils/100 leukocytes 1 % 0-10 Automated blood basophils/100 leukocytes 0 % 0-10 Blood neutrophils automated count (number/volume) 3.9 10*3 1.8-7.8 Blood lymphocytes automated count (number/volume) 1.4 10*3 1.0-4.0 Blood monocytes automated count (number/volume) 0. 5 10*3 0.0-1.0 Automated eosinophil count 0.0 10*3/uL 0 .0-0.3 Automated blood basophil count (count/volume) 0.0 10*3/uL 0.0-0.1 PT panel in platelet poor plasma by coag ulation assay - 11/15/17 13:24 Prothrombin time (PT) in platelet poor plasma by coagu lation assay 13.0 s 12.2-14.7 INR in platelet poor plasma or blood by coagulation as say 1.0 0.8-1.4 Activated partial thromboplastin time (a PTT) in platelet poor plasma bycoagulation assay - 11/15/17 13:24 Activated partial thromboplastin time (a PTT) in platelet poor plasma bycoagulation assay 35 s 24-35 Comprehensive metabolic panel - 11/15/17 13:24 Serum or plasma sodium measurement (moles/volume) 139 mmol/L 135-145 Serum or plasma potassium measurement (moles/volume) 3.8 mmol/L 3.6-5.0 Serum or plasma chloride measurement (moles/volume) 86 mmol/L 98-107 Carbon dioxide 42 mmol/L 21-32 Serum or plasma anion gap determination (moles/volume) 11 mmol/L 5-14 Serum or plasma urea nitrogen measurement (mass/volume ) 6 mg/dL 7-18 Serum or plasma creatinine measurement (mass/volume) 0.74 mg/dL 0.60-1.30 Serum or plasma urea nitrogen/creatinine mass ratio 8 NRG Serum or plasma creatinine measurement w ith calculation of estimated glomerular filtration rate > NRG Serum or plasma glucose measurement (mass/volume) 114 mg/dL 70-105 Serum or plasma calcium measurement (mass/volume) 9.3 mg/dL 8.5-10.1 Serum or plasma total bilirubin measurement (mass/volu me) 0.7 mg/dL 0.1-1.0 Serum or plasma alkaline phosphatase lola surement (enzymatic activity/volume) 73 U/L 40-136 Serum or plasma aspartate aminotransfera se measurement (enzymatic activity/volume) 16 U/L 5-34 Serum or plasma alanine aminotransferase measurement (enzymatic activity/volume) 16 U/L 0-55 Serum or plasma protein measurement (mass/volume) 5.9 g/dL 6.4-8.2 Serum or plasma albumin measurement (mass/volume) 3.8 g/dL 3.2-4.5 Magnesium - 11/15/17 13:24 Magnesium 1.6 mg/dL 1.8-2.4 Serum or plasma troponin i.cardiac measu rement (mass/volume) - 11/15/17 13:24 Serum or plasma troponin i.cardiac measurement (mass/v olume) < ng/mL <0.30 Serum or plasma lithium measurement (mol es/volume) - 11/15/17 13:24 BNP level 48.6 pg/mL <100.0 Myoglobin, serum - 11/15/17 13:24 Myoglobin, serum 41.6 ng/mL 10.0-92.0 Serum or plasma troponin i.cardiac measu rement (mass/volume) - 11/15/17 15:30 Serum or plasma troponin i.cardiac measurement (mass/v olume) < ng/mL <0.30 Complete blood count (CBC) with automate d white blood cell (WBC) differential - 02/14/18 22:20 Blood leukocytes automated count (number/volume) 4.8 10*3/uL 4.3-11.0 Blood erythrocytes automated count (number/volume) 3.46 10*6/uL 4.35-5.85 Venous blood hemoglobin measurement (mass/volume) 10.6 g/dL 13.3-17.7 Blood hematocrit (volume fraction) 35 % 40-54 Automated erythrocyte mean corpuscular volume 101 [foz_us] 80-99 Automated erythrocyte mean corpuscular h emoglobin (mass per erythrocyte) 31 pg 25-34 Automated erythrocyte mean corpuscular h emoglobin concentration measurement (mass/volume) 31 g/dL 32-36 Automated erythrocyte distribution width ratio 12. 0 % 10.0- 14.5 Automated blood platelet count (count/volume) 125 10*3/uL 130-400 Automated blood platelet mean volume measurement 9.5 [foz_us] 7.4-10.4 Automated blood neutrophils/100 leukocytes 57 % 42-75 Automated blood lymphocytes/100 leukocytes 31 % 12-44 Blood monocytes/100 leukocytes 10 % 0-12 Automated blood eosinophils/100 leukocytes 3 % 0-10 Automated blood basophils/100 leukocytes 0 % 0-10 Blood neutrophils automated count (number/volume) 2.7 10*3 1.8-7.8 Blood lymphocytes automated count (number/volume) 1.5 10*3 1.0-4.0 Blood monocytes automated count (number/volume) 0. 5 10*3 0.0-1.0 Automated eosinophil count 0.1 10*3/uL 0 .0-0.3 Automated blood basophil count (count/volume) 0.0 10*3/uL 0.0-0.1 PT panel in platelet poor plasma by coag ulation assay - 02/14/18 22:20 Prothrombin time (PT) in platelet poor plasma by coagu lation assay 12.0 s 12.2-14.7 INR in platelet poor plasma or blood by coagulation as say 0.9 0.8-1.4 Activated partial thromboplastin time (a PTT) in platelet poor plasma bycoagulation assay - 02/14/18 22:20 Activated partial thromboplastin time (a PTT) in platelet poor plasma bycoagulation assay 37 s 24-35 Fibrin D-dimer FEU measurement in platel et poor plasma (mass/volume) - 02/14/18 22:20 Fibrin D-dimer FEU measurement in platelet poor plasma (mass/volume) 0.43 ug/mL 0.00-0.49 Comprehensive metabolic panel - 02/14/18 22:20 Serum or plasma sodium measurement (moles/volume) 144 mmol/L 135-145 Serum or plasma potassium measurement (moles/volume) 4.8 mmol/L 3.6-5.0 Serum or plasma chloride measurement (moles/volume) 93 mmol/L 98-107 Carbon dioxide 43 mmol/L 21-32 Serum or plasma anion gap determination (moles/volume) 8 mmol/L 5-14 Serum or plasma urea nitrogen measurement (mass/volume ) 7 mg/dL 7-18 Serum or plasma creatinine measurement (mass/volume) 0.87 mg/dL 0.60-1.30 Serum or plasma urea nitrogen/creatinine mass ratio 8 NRG Serum or plasma creatinine measurement w ith calculation of estimated glomerular filtration rate > NRG Serum or plasma glucose measurement (mass/volume) 109 mg/dL 70-105 Serum or plasma calcium measurement (mass/volume) 9.4 mg/dL 8.5-10.1 Serum or plasma total bilirubin measurement (mass/volu me) 0.2 mg/dL 0.1-1.0 Serum or plasma alkaline phosphatase lola surement (enzymatic activity/volume) 75 U/L 40-136 Serum or plasma aspartate aminotransfera se measurement (enzymatic activity/volume) 22 U/L 5-34 Serum or plasma alanine aminotransferase measurement (enzymatic activity/volume) 20 U/L 0-55 Serum or plasma protein measurement (mass/volume) 6.2 g/dL 6.4-8.2 Serum or plasma albumin measurement (mass/volume) 3.9 g/dL 3.2-4.5 CALCIUM CORRECTED 9.5 mg/dL 8.5-10.1 Magnesium - 02/14/18 22:20 Magnesium 2.0 mg/dL 1.8-2.4 Serum or plasma troponin i.cardiac measu rement (mass/volume) - 02/14/18 22:20 Serum or plasma troponin i.cardiac measurement (mass/v olume) < ng/mL <0.30 Myoglobin, serum - 02/14/18 22:20 Myoglobin, serum 34.9 ng/mL 10.0-92.0 Complete blood count (CBC) with automate d white blood cell (WBC) differential - 02/15/18 06:20 Blood leukocytes automated count (number/volume) 4.7 10*3/uL 4.3-11.0 Blood erythrocytes automated count (number/volume) 3.45 10*6/uL 4.35-5.85 Venous blood hemoglobin measurement (mass/volume) 10.5 g/dL 13.3-17.7 Blood hematocrit (volume fraction) 35 % 40-54 Automated erythrocyte mean corpuscular volume 101 [foz_us] 80-99 Automated erythrocyte mean corpuscular h emoglobin (mass per erythrocyte) 30 pg 25-34 Automated erythrocyte mean corpuscular h emoglobin concentration measurement (mass/volume) 30 g/dL 32-36 Automated erythrocyte distribution width ratio 12. 0 % 10.0- 14.5 Automated blood platelet count (count/volume) 116 10*3/uL 130-400 Automated blood platelet mean volume measurement 9.8 [foz_us] 7.4-10.4 Automated blood neutrophils/100 leukocytes 48 % 42-75 Automated blood lymphocytes/100 leukocytes 39 % 12-44 Blood monocytes/100 leukocytes 11 % 0-12 Automated blood eosinophils/100 leukocytes 3 % 0-10 Automated blood basophils/100 leukocytes 0 % 0-10 Blood neutrophils automated count (number/volume) 2.2 10*3 1.8-7.8 Blood lymphocytes automated count (number/volume) 1.8 10*3 1.0-4.0 Blood monocytes automated count (number/volume) 0. 5 10*3 0.0-1.0 Automated eosinophil count 0.1 10*3/uL 0 .0-0.3 Automated blood basophil count (count/volume) 0.0 10*3/uL 0.0-0.1 Comprehensive metabolic panel - 02/15/18 06:20 Serum or plasma sodium measurement (moles/volume) 142 mmol/L 135-145 Serum or plasma potassium measurement (moles/volume) 4.6 mmol/L 3.6-5.0 Serum or plasma chloride measurement (moles/volume) 95 mmol/L 98-107 Carbon dioxide 39 mmol/L 21-32 Serum or plasma anion gap determination (moles/volume) 8 mmol/L 5-14 Serum or plasma urea nitrogen measurement (mass/volume ) 9 mg/dL 7-18 Serum or plasma creatinine measurement (mass/volume) 0.79 mg/dL 0.60-1.30 Serum or plasma urea nitrogen/creatinine mass ratio 11 NRG Serum or plasma creatinine measurement w ith calculation of estimated glomerular filtration rate > NRG Serum or plasma glucose measurement (mass/volume) 103 mg/dL 70-105 Serum or plasma calcium measurement (mass/volume) 9.4 mg/dL 8.5-10.1 Serum or plasma total bilirubin measurement (mass/volu me) 0.2 mg/dL 0.1-1.0 Serum or plasma alkaline phosphatase lola surement (enzymatic activity/volume) 72 U/L 40-136 Serum or plasma aspartate aminotransfera se measurement (enzymatic activity/volume) 19 U/L 5-34 Serum or plasma alanine aminotransferase measurement (enzymatic activity/volume) 18 U/L 0-55 Serum or plasma protein measurement (mass/volume) 6.1 g/dL 6.4-8.2 Serum or plasma albumin measurement (mass/volume) 3.8 g/dL 3.2-4.5 CALCIUM CORRECTED 9.6 mg/dL 8.5-10.1 Serum or plasma creatine kinase measurem ent (enzymatic activity/volume) - 02/15/18 06:20 Serum or plasma creatine kinase measurem ent (enzymatic activity/volume) 71 U/L 30-200 Serum or plasma troponin i.cardiac measu rement (mass/volume) - 02/15/18 06:20 Serum or plasma troponin i.cardiac measurement (mass/v olume) < ng/mL <0.30 Myoglobin, serum - 02/15/18 06:20 Myoglobin, serum 30.3 ng/mL 10.0-92.0 Lipid 1996 panel - 02/15/18 06:20 Serum or plasma triglyceride measurement (mass/volume) 45 mg/dL <150 Serum or plasma cholesterol measurement (mass/volume) 185 mg/dL < 200 Serum or plasma cholesterol in HDL measurement (mass/v olume) 62 mg/dL 40-60 Cholesterol in LDL [mass/volume] in serum or plasma by direct assay 102 mg/dL 1-129 Serum or plasma cholesterol in VLDL measurement (mass/ volume) 9 mg/dL 5-40 Complete urinalysis with reflex to cultu re - 03/18/18 07:04 Urine color determination YELLOW NRG Urine clarity determination CLEAR NR G Urine pH measurement by test strip 7 5-9 Specific gravity of urine by test strip 1.010 1.016-1.022 Urine protein assay by test strip, semi-quantitative NEGATIVE NEGATIVE Urine glucose detection by automated test strip NE GATIVE NEGATIVE Erythrocytes detection in urine sediment by light micr oscopy NEGATIVE NEGATIVE Urine ketones detection by automated test strip NE GATIVE NEGATIVE Urine nitrite detection by test strip NEGATIVE NEGATIVE Urine total bilirubin detection by test strip NEGA TIVE NEGATIVE Urine urobilinogen measurement by automated test strip (mass/volume) NORMAL NORMAL Urine leukocyte esterase detection by dipstick NEG ATIVE NEGATIVE Automated urine sediment erythrocyte cou nt by microscopy (number/high power field) NONE NRG Automated urine sediment leukocyte count by microscopy (number/high power field) RARE NRG Bacteria detection in urine sediment by light microsco py NEGATIVE NRG Crystals detection in urine sediment by light microsco py PRESENT NRG Casts detection in urine sediment by light microscopy NONE NRG Mucus detection in urine sediment by light microscopy NEGATIVE NRG Complete urinalysis with reflex to culture NO NRG Amorphous sediment detection in urine sediment by ligh t microscopy RARE PALAK PHOSPHATE NRG Automated blood complete blood count (he mogram) panel - 03/18/18 07:12 Blood leukocytes automated count (number/volume) 5.4 10*3/uL 4.3-11.0 Blood erythrocytes automated count (number/volume) 3.80 10*6/uL 4.35-5.85 Venous blood hemoglobin measurement (mass/volume) 11.7 g/dL 13.3-17.7 Blood hematocrit (volume fraction) 38 % 40-54 Automated erythrocyte mean corpuscular volume 99 [ foz_us] 80-99 Automated erythrocyte mean corpuscular h emoglobin (mass per erythrocyte) 31 pg 25-34 Automated erythrocyte mean corpuscular h emoglobin concentration measurement (mass/volume) 31 g/dL 32-36 Automated erythrocyte distribution width ratio 12. 4 % 10.0- 14.5 Automated blood platelet count (count/volume) 143 10*3/uL 130-400 Automated blood platelet mean volume measurement 9.6 [foz_us] 7.4-10.4 Comprehensive metabolic panel - 03/18/18 07:12 Serum or plasma sodium measurement (moles/volume) 140 mmol/L 135-145 Serum or plasma potassium measurement (moles/volume) 4.2 mmol/L 3.6-5.0 Serum or plasma chloride measurement (moles/volume) 92 mmol/L 98-107 Carbon dioxide 39 mmol/L 21-32 Serum or plasma anion gap determination (moles/volume) 9 mmol/L 5-14 Serum or plasma urea nitrogen measurement (mass/volume ) 12 mg/dL 7-18 Serum or plasma creatinine measurement (mass/volume) 0.82 mg/dL 0.60-1.30 Serum or plasma urea nitrogen/creatinine mass ratio 15 NRG Serum or plasma creatinine measurement w ith calculation of estimated glomerular filtration rate > NRG Serum or plasma glucose measurement (mass/volume) 101 mg/dL 70-105 Serum or plasma calcium measurement (mass/volume) 9.6 mg/dL 8.5-10.1 Serum or plasma total bilirubin measurement (mass/volu me) 0.2 mg/dL 0.1-1.0 Serum or plasma alkaline phosphatase lola surement (enzymatic activity/volume) 93 U/L 40-136 Serum or plasma aspartate aminotransfera se measurement (enzymatic activity/volume) 20 U/L 5-34 Serum or plasma alanine aminotransferase measurement (enzymatic activity/volume) 24 U/L 0-55 Serum or plasma protein measurement (mass/volume) 6.9 g/dL 6.4-8.2 Serum or plasma albumin measurement (mass/volume) 4.0 g/dL 3.2-4.5 CALCIUM CORRECTED 9.6 mg/dL 8.5-10.1 Lipid 1996 panel - 03/18/18 07:12 Serum or plasma triglyceride measurement (mass/volume) 55 mg/dL <150 Serum or plasma cholesterol measurement (mass/volume) 191 mg/dL < 200 Serum or plasma cholesterol in HDL measurement (mass/v olume) 79 mg/dL 40-60 Cholesterol in LDL [mass/volume] in serum or plasma by direct assay 96 mg/dL 1-129 Serum or plasma cholesterol in VLDL measurement (mass/ volume) 11 mg/dL 5-40 PT panel in platelet poor plasma by coag ulation assay - 03/18/18 07:12 Prothrombin time (PT) in platelet poor plasma by coagu lation assay 11.8 s 12.2-14.7 INR in platelet poor plasma or blood by coagulation as say 0.9 0.8-1.4 Activated partial thromboplastin time (a PTT) in platelet poor plasma bycoagulation assay - 03/18/18 07:12 Activated partial thromboplastin time (a PTT) in platelet poor plasma bycoagulation assay 37 s 24-35 Methicillin resistant Staphylococcus aur eus (MRSA) screening culture - 03/18/18 07:12 Methicillin resistant Staphylococcus aureus (MRSA) scr eening culture NEG NRG Blood lactic acid measurement (moles/vol ume) - 06/30/18 16:32 Blood lactic acid measurement (moles/volume) 0.74 mmol/L 0.50-2.00 Bacterial blood culture - 06/30/18 16:32 Bacterial blood culture NG NRG Complete blood count (CBC) with automate d white blood cell (WBC) differential - 06/30/18 16:55 Blood leukocytes automated count (number/volume) 5.9 10*3/uL 4.3-11.0 Blood erythrocytes automated count (number/volume) 3.76 10*6/uL 4.35-5.85 Venous blood hemoglobin measurement (mass/volume) 11.4 g/dL 13.3-17.7 Blood hematocrit (volume fraction) 36 % 40-54 Automated erythrocyte mean corpuscular volume 96 [ foz_us] 80-99 Automated erythrocyte mean corpuscular h emoglobin (mass per erythrocyte) 30 pg 25-34 Automated erythrocyte mean corpuscular h emoglobin concentration measurement (mass/volume) 32 g/dL 32-36 Automated erythrocyte distribution width ratio 12. 3 % 10.0- 14.5 Automated blood platelet count (count/volume) 173 10*3/uL 130-400 Automated blood platelet mean volume measurement 10.3 [foz_us] 7.4-10.4 Automated blood neutrophils/100 leukocytes 69 % 42-75 Automated blood lymphocytes/100 leukocytes 20 % 12-44 Blood monocytes/100 leukocytes 10 % 0-12 Automated blood eosinophils/100 leukocytes 1 % 0-10 Automated blood basophils/100 leukocytes 0 % 0-10 Blood neutrophils automated count (number/volume) 4.0 10*3 1.8-7.8 Blood lymphocytes automated count (number/volume) 1.2 10*3 1.0-4.0 Blood monocytes automated count (number/volume) 0. 6 10*3 0.0-1.0 Automated eosinophil count 0.0 10*3/uL 0 .0-0.3 Automated blood basophil count (count/volume) 0.0 10*3/uL 0.0-0.1 Comprehensive metabolic panel - 06/30/18 16:55 Serum or plasma sodium measurement (moles/volume) 143 mmol/L 135-145 Serum or plasma potassium measurement (moles/volume) 3.7 mmol/L 3.6-5.0 Serum or plasma chloride measurement (moles/volume) 95 mmol/L 98-107 Carbon dioxide 41 mmol/L 21-32 Serum or plasma anion gap determination (moles/volume) 7 mmol/L 5-14 Serum or plasma urea nitrogen measurement (mass/volume ) 11 mg/dL 7-18 Serum or plasma creatinine measurement (mass/volume) 0.86 mg/dL 0.60-1.30 Serum or plasma urea nitrogen/creatinine mass ratio 13 NRG Serum or plasma creatinine measurement w ith calculation of estimated glomerular filtration rate > NRG Serum or plasma glucose measurement (mass/volume) 113 mg/dL 70-105 Serum or plasma calcium measurement (mass/volume) 9.7 mg/dL 8.5-10.1 Serum or plasma total bilirubin measurement (mass/volu me) 0.4 mg/dL 0.1-1.0 Serum or plasma alkaline phosphatase lola surement (enzymatic activity/volume) 80 U/L 40-136 Serum or plasma aspartate aminotransfera se measurement (enzymatic activity/volume) 17 U/L 5-34 Serum or plasma alanine aminotransferase measurement (enzymatic activity/volume) 13 U/L 0-55 Serum or plasma protein measurement (mass/volume) 7.0 g/dL 6.4-8.2 Serum or plasma albumin measurement (mass/volume) 3.9 g/dL 3.2-4.5 CALCIUM CORRECTED 9.8 mg/dL 8.5-10.1 Magnesium - 06/30/18 16:55 Magnesium 1.8 mg/dL 1.8-2.4 Serum or plasma lithium measurement (mol es/volume) - 06/30/18 16:55 BNP level 43.1 pg/mL <100.0 Serum or plasma troponin i.cardiac measu rement (mass/volume) - 06/30/18 16:55 Serum or plasma troponin i.cardiac measurement (mass/v olume) < ng/mL <0.028 Bacterial blood culture - 06/30/18 16:55 Bacterial blood culture NG NRG Complete blood count (CBC) with automate d white blood cell (WBC) differential - 10/30/18 10:50 Blood leukocytes automated count (number/volume) 5.7 10*3/uL 4.3-11.0 Blood erythrocytes automated count (number/volume) 4.05 10*6/uL 4.35-5.85 Venous blood hemoglobin measurement (mass/volume) 11.9 g/dL 13.3-17.7 Blood hematocrit (volume fraction) 38 % 40-54 Automated erythrocyte mean corpuscular volume 94 [ foz_us] 80-99 Automated erythrocyte mean corpuscular h emoglobin (mass per erythrocyte) 29 pg 25-34 Automated erythrocyte mean corpuscular h emoglobin concentration measurement (mass/volume) 31 g/dL 32-36 Automated erythrocyte distribution width ratio 13. 2 % 10.0- 14.5 Automated blood platelet count (count/volume) 137 10*3/uL 130-400 Automated blood platelet mean volume measurement 10.2 [foz_us] 7.4-10.4 Automated blood neutrophils/100 leukocytes 62 % 42-75 Automated blood lymphocytes/100 leukocytes 26 % 12-44 Blood monocytes/100 leukocytes 9 % 0-12 Automated blood eosinophils/100 leukocytes 2 % 0-10 Automated blood basophils/100 leukocytes 0 % 0-10 Blood neutrophils automated count (number/volume) 3.5 10*3 1.8-7.8 Blood lymphocytes automated count (number/volume) 1.5 10*3 1.0-4.0 Blood monocytes automated count (number/volume) 0. 5 10*3 0.0-1.0 Automated eosinophil count 0.1 10*3/uL 0 .0-0.3 Automated blood basophil count (count/volume) 0.0 10*3/uL 0.0-0.1 Comprehensive metabolic panel - 10/30/18 10:50 Serum or plasma sodium measurement (moles/volume) 139 mmol/L 135-145 Serum or plasma potassium measurement (moles/volume) 4.2 mmol/L 3.6-5.0 Serum or plasma chloride measurement (moles/volume) 94 mmol/L 98-107 Carbon dioxide 41 mmol/L 21-32 Serum or plasma anion gap determination (moles/volume) 4 mmol/L 5-14 Serum or plasma urea nitrogen measurement (mass/volume ) 10 mg/dL 7-18 Serum or plasma creatinine measurement (mass/volume) 0.97 mg/dL 0.60-1.30 Serum or plasma urea nitrogen/creatinine mass ratio 10 NRG Serum or plasma creatinine measurement w ith calculation of estimated glomerular filtration rate > NRG Serum or plasma glucose measurement (mass/volume) 112 mg/dL 70-105 Serum or plasma calcium measurement (mass/volume) 9.7 mg/dL 8.5-10.1 Serum or plasma total bilirubin measurement (mass/volu me) 0.6 mg/dL 0.1-1.0 Serum or plasma alkaline phosphatase lola surement (enzymatic activity/volume) 97 U/L 40-136 Serum or plasma aspartate aminotransfera se measurement (enzymatic activity/volume) 22 U/L 5-34 Serum or plasma alanine aminotransferase measurement (enzymatic activity/volume) 21 U/L 0-55 Serum or plasma protein measurement (mass/volume) 7.0 g/dL 6.4-8.2 Serum or plasma albumin measurement (mass/volume) 4.3 g/dL 3.2-4.5 CALCIUM CORRECTED 9.5 mg/dL 8.5-10.1 Magnesium - 10/30/18 10:50 Magnesium 1.9 mg/dL 1.8-2.4 PT panel in platelet poor plasma by coag ulation assay - 10/30/18 10:50 Prothrombin time (PT) in platelet poor plasma by coagu lation assay 13.3 s 12.2-14.7 INR in platelet poor plasma or blood by coagulation as say 1.0 0.8-1.4 Activated partial thromboplastin time (a PTT) in platelet poor plasma bycoagulation assay - 10/30/18 10:50 Activated partial thromboplastin time (a PTT) in platelet poor plasma bycoagulation assay 37 s 24-35 Serum or plasma C reactive protein measu rement (mass/volume) - 10/30/18 10:50 Serum or plasma C reactive protein measurement (mass/v olume) 0.10 mg/dL 0.00-0.50 Serum or plasma troponin i.cardiac measu rement (mass/volume) - 10/30/18 10:50 Serum or plasma troponin i.cardiac measurement (mass/v olume) < ng/mL <0.028 Myoglobin, serum - 10/30/18 10:50 Myoglobin, serum 63.0 ng/mL 10.0-92.0 Serum or plasma lithium measurement (mol es/volume) - 10/30/18 10:50 BNP level 31.2 pg/mL <100.0 Serum or plasma troponin i.cardiac measu rement (mass/volume) - 10/30/18 12:55 Serum or plasma troponin i.cardiac measurement (mass/v olume) < ng/mL <0.028 Complete blood count (CBC) with automate d white blood cell (WBC) differential - 12/06/18 20:37 Blood leukocytes automated count (number/volume) 6.5 10*3/uL 4.3-11.0 Blood erythrocytes automated count (number/volume) 3.87 10*6/uL 4.35-5.85 Venous blood hemoglobin measurement (mass/volume) 11.3 g/dL 13.3-17.7 Blood hematocrit (volume fraction) 37 % 40-54 Automated erythrocyte mean corpuscular volume 95 [ foz_us] 80-99 Automated erythrocyte mean corpuscular h emoglobin (mass per erythrocyte) 29 pg 25-34 Automated erythrocyte mean corpuscular h emoglobin concentration measurement (mass/volume) 31 g/dL 32-36 Automated erythrocyte distribution width ratio 12. 8 % 10.0- 14.5 Automated blood platelet count (count/volume) 168 10*3/uL 130-400 Automated blood platelet mean volume measurement 10.0 [foz_us] 7.4-10.4 Automated blood neutrophils/100 leukocytes 63 % 42-75 Automated blood lymphocytes/100 leukocytes 26 % 12-44 Blood monocytes/100 leukocytes 10 % 0-12 Automated blood eosinophils/100 leukocytes 2 % 0-10 Automated blood basophils/100 leukocytes 0 % 0-10 Blood neutrophils automated count (number/volume) 4.1 10*3 1.8-7.8 Blood lymphocytes automated count (number/volume) 1.7 10*3 1.0-4.0 Blood monocytes automated count (number/volume) 0. 6 10*3 0.0-1.0 Automated eosinophil count 0.1 10*3/uL 0 .0-0.3 Automated blood basophil count (count/volume) 0.0 10*3/uL 0.0-0.1 PT panel in platelet poor plasma by coag ulation assay - 12/06/18 20:37 Prothrombin time (PT) in platelet poor plasma by coagu lation assay 12.6 s 12.2-14.7 INR in platelet poor plasma or blood by coagulation as say 0.9 0.8-1.4 Activated partial thromboplastin time (a PTT) in platelet poor plasma bycoagulation assay - 12/06/18 20:37 Activated partial thromboplastin time (a PTT) in platelet poor plasma bycoagulation assay 34 s 24-35 Comprehensive metabolic panel - 12/06/18 20:37 Serum or plasma sodium measurement (moles/volume) 143 mmol/L 135-145 Serum or plasma potassium measurement (moles/volume) 4.2 mmol/L 3.6-5.0 Serum or plasma chloride measurement (moles/volume) 96 mmol/L 98-107 Carbon dioxide 36 mmol/L 21-32 Serum or plasma anion gap determination (moles/volume) 11 mmol/L 5-14 Serum or plasma urea nitrogen measurement (mass/volume ) 11 mg/dL 7-18 Serum or plasma creatinine measurement (mass/volume) 1.05 mg/dL 0.60-1.30 Serum or plasma urea nitrogen/creatinine mass ratio 10 NRG Serum or plasma creatinine measurement w ith calculation of estimated glomerular filtration rate > NRG Serum or plasma glucose measurement (mass/volume) 98 mg/dL 70-105 Serum or plasma calcium measurement (mass/volume) 9.5 mg/dL 8.5-10.1 Serum or plasma total bilirubin measurement (mass/volu me) 0.3 mg/dL 0.1-1.0 Serum or plasma alkaline phosphatase lola surement (enzymatic activity/volume) 83 U/L 40-136 Serum or plasma aspartate aminotransfera se measurement (enzymatic activity/volume) 17 U/L 5-34 Serum or plasma alanine aminotransferase measurement (enzymatic activity/volume) 18 U/L 0-55 Serum or plasma protein measurement (mass/volume) 6.5 g/dL 6.4-8.2 Serum or plasma albumin measurement (mass/volume) 4.0 g/dL 3.2-4.5 CALCIUM CORRECTED 9.5 mg/dL 8.5-10.1 Magnesium - 12/06/18 20:37 Magnesium 2.0 mg/dL 1.8-2.4 Serum or plasma troponin i.cardiac measu rement (mass/volume) - 12/06/18 20:37 Serum or plasma troponin i.cardiac measurement (mass/v olume) 0.033 ng/mL <0.028 Myoglobin, serum - 12/06/18 20:37 Myoglobin, serum 55.1 ng/mL 10.0-92.0 Serum or plasma lithium measurement (mol es/volume) - 12/06/18 20:37 BNP PT 25.3 pg/mL <100.0 Serum or plasma amylase measurement (enz ymatic activity/volume) - 12/06/18 20:37 Serum or plasma amylase measurement (enzymatic activit y/volume) 56 U/L 25-125 Lipase - 12/06/18 20:37 Lipase 32 U/L 8-78 Serum or plasma ethanol measurement (mas s/volume) - 12/06/18 20:37 Serum or plasma ethanol measurement (mass/volume) < mg/dL <10 Urine drug screening test - 12/06/18 22: 10 Urine phencyclidine detection by screening method NEGATIVE NEGATIVE Urine benzodiazepines detection by screening method NEGATIVE NEGATIVE Urine cocaine detection NEGATIVE NEGATI VE Urine amphetamines detection by screening method N EGATIVE NEGATIVE Urine methamphetamine detection by screening method NEGATIVE NEGATIVE Urine cannabinoids detection by screening method N EGATIVE NEGATIVE Urine opiates detection by screening method NEGATI VE NEGATIVE Urine barbiturates detection NEGATIVE N EGATIVE Screening urine tricyclic antidepressants detection NEGATIVE NEGATIVE Urine methadone detection by screening method NEGA TIVE NEGATIVE Urine oxycodone detection NEGATIVE NEGA TIVE Urine propoxyphene detection NEGATIVE N EGATIVE Serum or plasma troponin i.cardiac measu rement (mass/volume) - 12/06/18 23:40 Serum or plasma troponin i.cardiac measurement (mass/v olume) < ng/mL <0.028 BNP - 12/16/18 16:00 BNP 66.20 pg/ml 0.00-100.00 Comprehensive Metabolic Panel - 12/25/18 08:15 Albumin 4.0 g/dL 3.6-5.1 ALP 99 U/L 35-130 ALT 15 U/L 6-45 Anion Gap 14 6-14 AST 15 U/L 2-40 BUN 11 mg/dL 5-25 Calcium 9.5 mg/dL 8.3-10.4 Chloride 95 mmol/L 95-114 CO2 38 mEq/L 22-33 Creat 0.86 mg/dL 0.50-1.50 eGFR 90 mL/min/1.73m2 >59 Globulin 2.0 g/dL 2.3-3.5 Glucose 100 mg/dL 70-110 Osmo 295 280-295 Potassium 4.1 mmol/L 3.5-5.3 Sodium 143 mmol/L 134-148 TBil 0.3 mg/dL 0.2-1.2 TP 6.0 g/dL 6.0-8.3 Lipid Panel - 12/25/18 08:15 C/HDL 2.5 3.7-6.7 Cholesterol 159 mg/dL 100-240 HDL 64 mg/dL 30-85 LDL-Calculated 82 mg/dL 0-100 Trig 67 mg/dL 35-160 VLDL 13 mg/dL 0-42 Mycoplasma - 01/13/19 08:46 Mycoplasma Positive Negative Thyroid Stimulating Hormone - 01/13/19 0 8:46 TSH 2.17 mIU/mL 0.32-5.00 Complete blood count (CBC) with automate d white blood cell (WBC) differential - 04/16/19 21:13 Blood leukocytes automated count (number/volume) 5.1 10*3/uL 4.3-11.0 Blood erythrocytes automated count (number/volume) 3.71 10*6/uL 4.35-5.85 Venous blood hemoglobin measurement (mass/volume) 10.6 g/dL 13.3-17.7 Blood hematocrit (volume fraction) 37 % 40-54 Automated erythrocyte mean corpuscular volume 99 [ foz_us] 80-99 Automated erythrocyte mean corpuscular h emoglobin (mass per erythrocyte) 29 pg 25-34 Automated erythrocyte mean corpuscular h emoglobin concentration measurement (mass/volume) 29 g/dL 32-36 Automated erythrocyte distribution width ratio 12. 9 % 10.0- 14.5 Automated blood platelet count (count/volume) 125 10*3/uL 130-400 Automated blood platelet mean volume measurement 10.1 [foz_us] 7.4-10.4 Automated blood neutrophils/100 leukocytes 60 % 42-75 Automated blood lymphocytes/100 leukocytes 27 % 12-44 Blood monocytes/100 leukocytes 10 % 0-12 Automated blood eosinophils/100 leukocytes 3 % 0-10 Automated blood basophils/100 leukocytes 0 % 0-10 Blood neutrophils automated count (number/volume) 3.1 10*3 1.8-7.8 Blood lymphocytes automated count (number/volume) 1.4 10*3 1.0-4.0 Blood monocytes automated count (number/volume) 0. 5 10*3 0.0-1.0 Automated eosinophil count 0.1 10*3/uL 0 .0-0.3 Automated blood basophil count (count/volume) 0.0 10*3/uL 0.0-0.1 PT panel in platelet poor plasma by coag ulation assay - 04/16/19 21:13 Prothrombin time (PT) in platelet poor plasma by coagu lation assay 14.3 s 12.2-14.7 INR in platelet poor plasma or blood by coagulation as say 1.1 0.8-1.4 Activated partial thromboplastin time (a PTT) in platelet poor plasma bycoagulation assay - 04/16/19 21:13 Activated partial thromboplastin time (a PTT) in platelet poor plasma bycoagulation assay 45 s 24-35 Comprehensive metabolic panel - 04/16/19 21:13 Serum or plasma sodium measurement (moles/volume) 143 mmol/L 135-145 Serum or plasma potassium measurement (moles/volume) 4.6 mmol/L 3.6-5.0 Serum or plasma chloride measurement (moles/volume) 94 mmol/L 98-107 Carbon dioxide 36 mmol/L 21-32 Serum or plasma anion gap determination (moles/volume) 13 mmol/L 5-14 Serum or plasma urea nitrogen measurement (mass/volume ) 12 mg/dL 7-18 Serum or plasma creatinine measurement (mass/volume) 0.90 mg/dL 0.60-1.30 Serum or plasma urea nitrogen/creatinine mass ratio 13 NRG Serum or plasma creatinine measurement w ith calculation of estimated glomerular filtration rate > NRG Serum or plasma glucose measurement (mass/volume) 131 mg/dL 70-105 Serum or plasma calcium measurement (mass/volume) 9.3 mg/dL 8.5-10.1 Serum or plasma total bilirubin measurement (mass/volu me) 0.2 mg/dL 0.1-1.0 Serum or plasma alkaline phosphatase lola surement (enzymatic activity/volume) 94 U/L 40-136 Serum or plasma aspartate aminotransfera se measurement (enzymatic activity/volume) 23 U/L 5-34 Serum or plasma alanine aminotransferase measurement (enzymatic activity/volume) 17 U/L 0-55 Serum or plasma protein measurement (mass/volume) 6.6 g/dL 6.4-8.2 Serum or plasma albumin measurement (mass/volume) 3.9 g/dL 3.2-4.5 CALCIUM CORRECTED 9.4 mg/dL 8.5-10.1 Magnesium - 04/16/19 21:13 Magnesium 1.8 mg/dL 1.6-2.4 Serum or plasma creatine kinase measurem ent (enzymatic activity/volume) - 04/16/19 21:13 Serum or plasma creatine kinase measurem ent (enzymatic activity/volume) 74 U/L 30-200 Serum or plasma creatine kinase MB measu rement (enzymatic activity/volume) - 04/16/19 21:13 Serum or plasma creatine kinase MB measu rement (enzymatic activity/volume) 1.6 ng/mL <6.6 Serum or plasma troponin i.cardiac measu rement (mass/volume) - 04/16/19 21:13 Serum or plasma troponin i.cardiac measurement (mass/v olume) < ng/mL <0.028 Myoglobin, serum - 04/16/19 21:13 Myoglobin, serum 26.7 ng/mL 10.0-92.0 Serum or plasma amylase measurement (enz ymatic activity/volume) - 04/16/19 21:13 Serum or plasma amylase measurement (enzymatic activit y/volume) 48 U/L 25-125 Lipase - 04/16/19 21:13 Lipase 23 U/L 8-78 Serum or plasma lithium measurement (mol es/volume) - 04/16/19 21:13 BNP PT 23.4 pg/mL <100.0 Complete blood count (CBC) with automate d white blood cell (WBC) differential - 04/17/19 03:27 Blood leukocytes automated count (number/volume) 5.4 10*3/uL 4.3-11.0 Blood erythrocytes automated count (number/volume) 3.82 10*6/uL 4.35-5.85 Venous blood hemoglobin measurement (mass/volume) 10.7 g/dL 13.3-17.7 Blood hematocrit (volume fraction) 38 % 40-54 Automated erythrocyte mean corpuscular volume 99 [ foz_us] 80-99 Automated erythrocyte mean corpuscular h emoglobin (mass per erythrocyte) 28 pg 25-34 Automated erythrocyte mean corpuscular h emoglobin concentration measurement (mass/volume) 28 g/dL 32-36 Automated erythrocyte distribution width ratio 13. 0 % 10.0- 14.5 Automated blood platelet count (count/volume) 106 10*3/uL 130-400 Automated blood platelet mean volume measurement 10.3 [foz_us] 7.4-10.4 Automated blood neutrophils/100 leukocytes 92 % 42-75 Automated blood lymphocytes/100 leukocytes 6 % 12-44 Blood monocytes/100 leukocytes 1 % 0-12 Automated blood eosinophils/100 leukocytes 1 % 0-10 Automated blood basophils/100 leukocytes 0 % 0-10 Blood neutrophils automated count (number/volume) 5.0 10*3 1.8-7.8 Blood lymphocytes automated count (number/volume) 0.3 10*3 1.0-4.0 Blood monocytes automated count (number/volume) 0. 1 10*3 0.0-1.0 Automated eosinophil count 0.0 10*3/uL 0 .0-0.3 Automated blood basophil count (count/volume) 0.0 10*3/uL 0.0-0.1 Comprehensive metabolic panel - 04/17/19 03:27 Serum or plasma sodium measurement (moles/volume) 143 mmol/L 135-145 Serum or plasma potassium measurement (moles/volume) 4.2 mmol/L 3.6-5.0 Serum or plasma chloride measurement (moles/volume) 97 mmol/L 98-107 Carbon dioxide 34 mmol/L 21-32 Serum or plasma anion gap determination (moles/volume) 12 mmol/L 5-14 Serum or plasma urea nitrogen measurement (mass/volume ) 12 mg/dL 7-18 Serum or plasma creatinine measurement (mass/volume) 0.87 mg/dL 0.60-1.30 Serum or plasma urea nitrogen/creatinine mass ratio 14 NRG Serum or plasma creatinine measurement w ith calculation of estimated glomerular filtration rate > NRG Serum or plasma glucose measurement (mass/volume) 195 mg/dL 70-105 Serum or plasma calcium measurement (mass/volume) 9.2 mg/dL 8.5-10.1 Serum or plasma total bilirubin measurement (mass/volu me) 0.2 mg/dL 0.1-1.0 Serum or plasma alkaline phosphatase lola surement (enzymatic activity/volume) 90 U/L 40-136 Serum or plasma aspartate aminotransfera se measurement (enzymatic activity/volume) 24 U/L 5-34 Serum or plasma alanine aminotransferase measurement (enzymatic activity/volume) 22 U/L 0-55 Serum or plasma protein measurement (mass/volume) 6.7 g/dL 6.4-8.2 Serum or plasma albumin measurement (mass/volume) 3.9 g/dL 3.2-4.5 CALCIUM CORRECTED 9.3 mg/dL 8.5-10.1 Serum or plasma troponin i.cardiac measu rement (mass/volume) - 04/17/19 03:27 Serum or plasma troponin i.cardiac measurement (mass/v olume) < ng/mL <0.028 Lipid 1996 panel - 04/17/19 03:27 Serum or plasma triglyceride measurement (mass/volume) 43 mg/dL <150 Serum or plasma cholesterol measurement (mass/volume) 183 mg/dL < 200 Serum or plasma cholesterol in HDL measurement (mass/v olume) 69 mg/dL 40-60 Cholesterol in LDL [mass/volume] in serum or plasma by direct assay 96 mg/dL 1-129 Serum or plasma cholesterol in VLDL measurement (mass/ volume) 9 mg/dL 5-40 Manual absolute plasma cell count - 02/25 03:27 Blood monocytes/100 leukocytes 1 % NRG Manual blood segmented neutrophils/100 leukocytes 92 % NRG Manual blood lymphocytes/100 leukocytes 7 % NRG Fibrin D-dimer FEU measurement in platel et poor plasma (mass/volume) - 04/17/19 03:37 Fibrin D-dimer FEU measurement in platelet poor plasma (mass/volume) 3.53 ug/mL 0.00-0.49 Complete urinalysis with reflex to cultu re - 04/17/19 05:30 Urine color determination YELLOW NRG Urine clarity determination CLEAR NR G Urine pH measurement by test strip 6.0 5-9 Specific gravity of urine by test strip >= 1.016-1.022 Urine protein assay by test strip, semi-quantitative NEGATIVE NEGATIVE Urine glucose detection by automated test strip 3+ NEGATIVE Erythrocytes detection in urine sediment by light micr oscopy NEGATIVE NEGATIVE Urine ketones detection by automated test strip NE GATIVE NEGATIVE Urine nitrite detection by test strip NEGATIVE NEGATIVE Urine total bilirubin detection by test strip NEGA TIVE NEGATIVE Urine urobilinogen measurement by automated test strip (mass/volume) 0.2 mg/dL < = 1.0 Urine leukocyte esterase detection by dipstick NEG ATIVE NEGATIVE Automated urine sediment erythrocyte cou nt by microscopy (number/high power field) NONE NRG Automated urine sediment leukocyte count by microscopy (number/high power field) RARE NRG Bacteria detection in urine sediment by light microsco py FEW NRG Squamous epithelial cells detection in u rine sediment by light microscopy RARE NRG Crystals detection in urine sediment by light microsco py NONE NRG Casts detection in urine sediment by light microscopy NONE NRG Mucus detection in urine sediment by light microscopy SMALL NRG Complete urinalysis with reflex to culture NO NRG [id number] - 05/31/19 06:40 Serum or plasma urea nitrogen measurement (mass/volume ) 10 mg/dL 7-18 Serum or plasma creatinine measurement (mass/volume) 1.03 mg/dL 0.60-1.30 Serum or plasma urea nitrogen/creatinine mass ratio 10 NRG Serum or plasma creatinine measurement w ith calculation of estimated glomerular filtration rate > NRG Encounters ACCT No. Visit Date/Time Discharge Status Pt. Type Provider Facility Loc./Unit Complaint [id number] 03/29/2019 16:49:00 03/29/2019 23:59: 00 DIS Outpatient SONYA FERNANDEZ [id number] 06/29/2019 14:56:00 06/29/2019 23:59 :00 DIS Outpatient SONYA FERNANDEZ [id number] 06/07/2019 10:39:00 06/07/2019 23:59 :00 DIS Outpatient SONYA FERNANDEZ [id number] 04/27/2019 11:35:00 04/27/2019 23:59: 00 DIS Outpatient SONYA FERNANDEZ [id number] 01/13/2019 08:45:00 01/13/2019 23:59: 00 DIS Outpatient ZepedaMikeu [id number] 12/25/2018 09:38:00 12/25/2018 23:59: 00 DIS Outpatient Zepeda, Judi [id number] 12/16/2018 17:29:00 12/16/2018 23:59: 00 DIS Outpatient Zepeda, Mikeu [id number] 12/05/2017 13:24:00 12/05/2017 23:59: 00 DIS Outpatient Zepeda, Mikeu [id number] 10/08/2017 08:36:00 10/08/2017 23:59: 00 DIS Outpatient Zepeda, Mikeu [id number] 07/20/2017 11:08:00 07/20/2017 14:23: 00 DIS Outpatient Anaek, [facility] ER [id number] 07/02/2017 00:00:00 07/02/2017 23:59: 00 DIS Outpatient ZepedaMikeu [id number] 06/25/2017 17:22:00 06/25/2017 23:59: 00 DIS Outpatient Zepeda, Mikeu [id number] 06/13/2017 10:57:00 06/13/2017 13:08: 00 DIS Outpatient Howayek [place] [id number] 01/10/2017 20:57:00 01/10/2017 21:49: 00 DIS Outpatient Tckob, [facility] ER [id number] 09/27/2016 16:25:00 09/27/2016 23:59: 00 DIS Outpatient ZepedaMikeu [id number] 03/16/2019 09:42:08 Document Registration [id number] 01/13/2019 08:05:00 Document Registration [id number] 12/25/2018 08:11:00 Document Registration [id number] 12/22/2018 10:13:00 Document Registration [id number] 12/16/2018 13:54:00 Document Registration [id number] 09/08/2018 09:31:00 Document Registration [id number] 08/21/2018 13:39:00 Document Registration [id number] 07/09/2018 14:28:00 Document Registration [id number] 07/03/2018 09:12:00 Document Registration [id number] 06/30/2018 14:44:00 Document Registration [id number] 04/22/2018 10:09:00 Document Registration [id number] 03/10/2018 10:45:00 Document Registration [id number] 03/05/2018 08:39:00 Document Registration [id number] 02/25/2018 10:54:00 Document Registration [id number] 01/16/2018 13:28:00 Document Registration [id number] 12/02/2017 10:10:00 Document Registration [id number] 10/28/2017 09:06:00 Document Registration [id number] 10/22/2017 08:53:00 Document Registration [id number] 10/07/2017 15:40:00 Document Registration [id number] 09/23/2017 09:37:00 Document Registration [id number] 07/20/2017 11:49:36 Document Registration [id number] 07/16/2017 14:29:00 Document Registration [id number] 06/25/2017 14:25:00 Document Registration [id number] 05/20/2017 09:21:00 Document Registration [id number] 07/03/2016 15:16:21 Document Registration [id number] 07/09/2019 09:45:00 23:59:59 CLS Preadmit RASHEED CRANE, TAMIKO Hazel a [facility] RAD LIVER MASS [id number] 05/31/2019 06:35:00 23:59:59 CLS Outpatient CATE HERRERA APRN [facility] RAD PNEUMONIA,LUNG NODULE,HYPOXEMIA [id number] 04/16/2019 21:11:00 11:15:00 DIS Inpatient JUAREZ TOLENTINO MD [facility] ICU CHEST PAIN, COPD EXACER BATION [id number] 02/11/2019 11:47:00 23:59:59 CLS Outpatient HORTENCIA LYNN [facility] RAD CERVICAL RADICULLOPATHY [id number] 12/12/2018 11:00:00 23:59:59 CLS Preadmit JOSHUA CASTILLO MD [facility] CR3 STABLE ANGINA [id number] 11/20/2018 11:23:00 07/05/2 019 00:01:00 DIS Outpatient JOSHUA CASTILLO MD [facility] CR3 STABLE ANGINA [id number] 12/06/2018 20:36:00 00:35:00 DIS Emergency DEBBIE ESPINOSA DO [facility] ER CHEST PAIN [id number] 11/24/2018 09:22:00 23:59:59 CLS Preadmit CATE HERRERA WRITER EDITOR [facility] RAD COPD [id number] 11/17/2018 08:21:00 23:59:59 CLS Outpatient CATE HERRERA WRITER EDITOR [facility] RAD WHEEZING,SOB,AL COHOLISM [id number] 11/06/2018 10:53:00 00:01:00 DIS Outpatient JOSHUA CASTILLO MD [facility] CR STABLE ANGINA [id number] 11/09/2018 15:18:00 23:59:59 CLS Outpatient CATE HERRERA WRITER EDITOR [facility] RT TOBACCO USE, SO B, COPD [id number] 10/30/2018 10:37:00 14:26:00 DIS Emergency OMAR CRANE, IRIS Hudson [facility] ER CHEST PAIN [id number] 10/23/2018 13:35:00 23:59:59 CLS Outpatient CATE HERRERA WRITER EDITOR [facility] RAD TOBACCO USE [id number] 08/20/2018 17:10:00 19:00:00 DIS Emergency KAYCEE BAHENA WRITER EDITOR [facility] ER FALL [id number] 08/14/2018 11:25:00 23:59:59 CLS Outpatient JOSHUA CASTILLO MD [facility] CARD CAD [id number] 06/24/2018 10:27:00 00:01:00 DIS Outpatient JOSHUA CASTILLO MD [facility] CR STABLE ANGINA [id number] 06/30/2018 15:53:00 019 19:33:00 DIS Emergency MARGARITA ROBERTSON FURNITURE MOVER HELPER [facility] ER HYPOXIA [id number] 04/25/2018 13:45:00 15:13:00 DIS Emergency ANTOINETTE SANDHU MD [facility] ER RIGHT FOOT PAIN /SWELLING [id number] 03/18/2018 06:52:00 13:27:00 DIS Outpatient JOSHUA CASTILLO MD [facility] CATH CAD [id number] 03/11/2018 08:00:00 23:59:59 CLS Preadmit JOSHUA CASTILLO MD [facility] CATH CAD [id number] 02/15/2018 00:50:00 10:55:00 DIS Inpatient JUAREZ TOLENTINO MD [facility] 4TH CHEST PAIN [id number] 02/10/2018 11:03:00 23:59:59 CLS Outpatient HORTENCIA LYNN FURNITURE MOVER HELPER [facility] RAD COMPLETE ROTATOR CUFF T EAR OR RUPTURE OF RT [id number] 11/15/2017 13:15:00 018 16:16:00 DIS Emergency ANTOINETTE SANDHU MD [facility] ER SOB,CP [id number] 10/13/2017 19:55:00 018 12:43:00 DIS Inpatient MARTIN GRULLON MD [facility] 4TH COPD 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,CP W/ CAD, HYPOXIA [id number] 09/16/2017 08:31:00 23:59:59 CLS Outpatient CATE HERRERA APRN [facility] RAD PNEUMONIA [id number] 09/14/2017 21:59:00 018 09:43:00 DIS Inpatient JUAREZ TOLENTINO MD [facility] ICU CHEST PAIN; COPD EXACER BATION [id number] 07/25/2017 13:00:00 02/16/2 018 23:59:59 CLS Inpatient POWERS DO, OUMAR [facility] 4TH COPD 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 HYPER CAPNIA RLL PNEUMONIA [id number] 06/16/2017 13:04:00 018 23:59:59 CLS Outpatient JOSHUA CASTILLO MD [facility] LAB I25.10, I50.9, I65.29, I10, E78.2 [id number] 06/04/2017 08:56:00 017 23:59:59 CLS Outpatient JOSHUA CASTILLO MD [facility] CARD I25.10 CAD [id number] 05/08/2017 13:50:00 017 11:52:00 DIS Inpatient PRIYA BURDICK OUMAR [facility] 4TH DIPTHERIA,MENINGITIS [id number] 05/05/2017 19:17:00 017 17:20:00 DIS Inpatient MARTIN GRULLON MD [facility] ICU AIRWAY EDEMA,COPD EXACE RBATION,RT ARM WEAKNESS [id number] 03/22/2017 21:35:00 017 13:15:00 DIS Inpatient PRIYA BURDICK OUMAR [facility] ICU CHEST PAIN; COPD; HX OF CAD [id number] 01/22/2017 13:01:00 017 23:59:59 CLS Outpatient CELSO FORDP-C [facility] LAB I70.212 [id number] 10/12/2016 21:43:00 017 11:49:00 DIS Inpatient HERBERT ALANIS MD [facility] 4TH COPD EXACERBATI ON, CHEST PAIN [id number] 08/27/2016 12:30:00 017 23:59:59 CLS Outpatient CATE HERRERA APRN [facility] RAD LUNG NODULE,SOB ON EXERTION [id number] 07/24/2016 16:06:00 017 14:00:00 DIS Inpatient POWERS DO, OUMAR [facility] ICU CHEST PAIN,COPD IN EXAC ERBATION [id number] 04/16/2016 11:40:00 23:59:59 CLS Outpatient JONATHAN CRANE, JOSHUA Rausch [facility] CARD CAD,CHEST PAIN,HTN [id number] 04/04/2016 12:40:00 23:59:59 CLS Outpatient CATE HERRERA APRN [facility] RAD SOB,WHEEZING,DY SPNEA [id number] 03/29/2016 12:58:00 23:59:59 CLS Outpatient JOSHUA CASTILLO MD [facility] LAB CAD,CAROTID ARTERY STENOSIS,HTN,HLP,CHEST PAIN [id number] 02/15/2016 08:21:00 11:05:00 DIS Outpatient MITCHELL JOHNSON MD [facility] SDC ULCERS; HISTORY POLYPS [id number] 02/13/2016 05:48:00 12:24:00 DIS Outpatient MITCHELL JOHNSON MD [facility] PREOP ULCERS; HISTORY POLYPS [id number] 10/25/2015 23:59:00 01:56:00 DIS Emergency IRIS NELSON MD [facility] ER CP [id number] 09/11/2015 14:00:00 23:59:59 CLS Outpatient DIONICIO MCALLISTER [facility] LAB HTN, HYPERL IPIDEMIA, CAD [id number] 07/03/2015 12:15:00 11:28:00 DIS Outpatient IRIS AMAYA [facility] REHAB LUMBAR RADICULOPATHY [id number] 05/02/2015 13:50:00 23:59:59 CLS Outpatient JING HOLGUIN DO [facility] RAD LUMBAR RADICULOPATHY [id number] 04/08/2015 17:27:00 21:05:00 DIS Emergency DEBBIE ESPINOSA DO a [facility] ER L LEG PAIN/BLOOD CLOT [id number] 03/30/2015 09:32:00 015 23:59:59 CLS Outpatient CATE HERRERA APRN [facility] RAD COPD DYSPENA [id number] 01/16/2015 13:33:00 015 15:43:00 DIS Emergency OMAR CRANE, IRIS Hudson [facility] ER CHEST PAIN/NAUS EA [id number] 09/21/2014 07:30:00 13:45:00 DIS Outpatient JOSHUA CASTILLO MD [facility] CATH HTN,HLP,COPD, ABNORMAL STRESS, [id number] 08/31/2014 12:10:00 23:59:59 CLS Outpatient JOSHUA CASTILLO MD [facility] CARD CAD,CHF,HTN [id number] 02/10/2014 12:34:00 014 23:59:59 CLS Outpatient JOSHUA CASTILLO MD [facility] LAB CAD,CP,HTN,HYPERLIDEMIA [id number] 08/31/2013 13:00:00 014 00:01:00 DIS Outpatient XIMENA QUINONES DO Via [facility] PULM COPD,DYSPNEA [id number] 09/06/2013 12:48:00 014 23:59:59 CLS Outpatient JOSHUA CASTILLO MD Via [facility] LAB CAD,CHF,COPD,CAROTID AR BANDAR STENOSIS,DEPRESSION,DY [id number] 07/20/2013 13:00:00 014 00:01:00 DIS Outpatient XIMENA QUINONES DO Via [facility] PULM COPD,DYSPNEA [id number] 06/07/2013 14:50:00 013 13:20:00 DIS Inpatient DALLIN LUCAS MD Via [facility] ICU CHEST PAIN [id number] 04/29/2013 15:24:00 013 23:59:59 CLS Outpatient XIMENA QUINONES DO Via [facility] RT COPD,DYSPNEA [id number] 03/22/2013 10:59:00 23:59:59 CLS Outpatient JOSHUA CASTILLO MD Via [facility] RAD CAD,CP [id number] 03/03/2013 20:47:00 17:30:00 DIS Inpatient JOSHUA CASTILLO MD Via [facility] ICU CP,CAD,COPD EXACERBATIO N [id number] 01/26/2013 04:25:00 013 14:50:00 DIS Outpatient JOSHUA CASTILLO MD Via [facility] CATH CHEST PAIN [id number] 11/06/2012 21:15:00 15:00:00 DIS Inpatient CHRISTOPHER HULL MD Via [facility] CSD CHEST PAIN, CRITICAL CARE RN D 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 [id number] 04/16/2019 13:28:00 Document Registration [id number] 08/31/2014 12:10:00 Document Registration [id number] 08/31/2014 12:10:00 Document Registration [id number] 08/31/2014 12:09:00 Document Registration [id number] 08/18/2014 10:56:00 Document Registration [id number] 11/18/2013 15:00:00 Document Registration [id number] 09/02/2012 10:34:00 Document Registration [id number] 07/01/2012 19:50:00 Document Registration [id number] 05/17/2012 21:18:00 Document Registration [id number] 03/31/2012 09:56:00 Document Registration [id number] 12/19/2011 10:33:00 Document Registration [id number] 12/06/2011 22:45:00 Document Registration [id number] 11/27/2011 12:54:00 Document Registration [id number] 10/23/2011 00:30:00 Document Registration [id number] 10/02/2011 11:39:00 Document Registration [id number] 09/30/2011 07:42:00 Document Registration [id number] 09/20/2011 11:58:00 Document Registration [id number] 09/12/2011 15:26:00 Document Registration [id number] 09/04/2011 15:30:00 Document Registration [id number] 06/27/2011 01:28:00 Document Registration [id number] 06/05/2011 13:00:00 Document Registration [id number] 03/06/2011 12:54:00 Document Registration [id number] 12/07/2010 15:30:00 Document Registration [id number] 07/02/2010 15:45:00 Document Registration [id number] 05/21/2010 10:14:00 Document Registration [id number] 04/25/2010 12:53:00 Document Registration [id number] 12/01/2009 12:58:00 Document Registration [id number] 10/19/2009 03:30:00 Document Registration [id number] 08/23/2009 13:16:00 Document Registration [id number] 05/22/2009 12:57:00 Document Registration [id number] 05/03/2009 12:57:00 Document Registration
[2019-11-08] MEDS: LACTATED RINGERS 1,000 ML IV SCH (14:18)
[2019-11-08] MEDS ORDERED: LIDOCAINE JELLY 2% 6 ML SYRINGE ONE (14:24)
[2019-11-08] MEDS: RT-ALBUTEROL/IPRATROPIUM 3 ML (DUONEB) VIAL INH SCH ×3 (14:31→21:26)
[2019-11-08] MEDS ORDERED: SERT100T8 PO (15:27)
[2019-11-08] MEDS ORDERED: CLOP75TA28 PO (15:27)
[2019-11-08] MEDS ORDERED: PRD10T PO (15:27)
--- NOTE | 2019-11-08 15:34 | NUR ---
SPOKE WITH THE PT (HE HAD A MED LIST) WENT THRU THE EXT MED HISTORY AND CALLED JAYLYN TO COMPLETE THE MED REC COREG 6.125MG AND RANEXA 1000MG WERE BOTH LAST FILLED 05-24-2019 #180/90DS- I DOCUMENTED THE LAST DUE FILL FOR BOTH ON THE MED REC OTC MEDS: ASPIRIN 81 FISH OIL
[2019-11-08] MEDS ORDERED: NITROGLYCERIN 0.4 MG SL TABS BTL 25'S SL PRN (16:00)
[2019-11-08] MEDS ORDERED: RT-ALBUTEROL/IPRATROPIUM 3 ML (DUONEB) VIAL INH PRN (16:00)
--- NOTE | 2019-11-08 17:28 | Consultation-Cardiology ---
HPI-Cardiology Cardiology Consultation Date of Consultation 11/08/19 Date of Admission Time Seen by Provider: 17:24 Indication: chest pain and shortness of breath HPI 64-year-old gentleman with history of severe COPD, coronary artery disease, CABG, started to have worsening shortness of breath, cough productive, increasing chest pain. Came into the emergency room. Currently feeling somewhat better, his chest pain is better, still short of breath but she currently on Vapotherm. No syncope or near-syncopal episodes Home Medications & Allergies Allergies: Coded Allergies: budesonide (Verified Allergy, Severe, angioedema, 12/06/18) formoterol (Verified Allergy, Severe, angioedema, 12/06/18) tetanus toxoid, adsorbed (Verified Allergy, Mild, hives, 12/06/18) DOROTA Inhibitors (Verified Allergy, Unknown, Angioedema, 12/06/18) Home Medication List Reviewed: Yes QMM-Ctsywg-Tfqbbz Hx Patient Social History Marital Status: Alcohol Use: Denies Use Recreational Drug Use: No Smoking Status: Former Smoker Former smoker/When Quit: Aug 21, 2014 Type Used: Cigarettes 2nd Hand Smoke Exposure: Yes Recent Foreign Travel: No Recent Infectious Disease Expo: No Recent Hopitalizations: No Immunizations Up To Date Tetanus Booster (TDap): Unknown Date of Pneumonia Vaccine: Mar 23, 2013 Date of Influenza Vaccine: Jul 31, 2017 Past Medical History Discussed below Family Medical History Significant Family History: Heart Disease, Diabetes Family History: Diabetes mellitus 19 MOTHER FH: heart disease 19 FATHER Review of Systems-General Review of Systems Constitutional: see HPI; No chills, No fever; malaise, weakness EENTM: see HPI, no symptoms reported Respiratory: cough, dyspnea on exertion; No phlegm; short of breath, wheezing Cardiovascular: see HPI, chest pain, edema, Hx of Intervention Gastrointestinal: no symptoms reported, see HPI Genitourinary: no symptoms reported, see HPI Musculoskeletal: no symptoms reported, see HPI Skin: no symptoms reported, see HPI Psychiatric/Neurological: No Symptoms Reported, See HPI All Other Systems Reviewed Negative Unless Noted: Yes Reviewed Test Results Reviewed Test Results Lab Laboratory Tests Test 11/08/19 09:17 11/08/19 09:21 11/08/19 09:46 11/08/19 10:04 Range/Units White Blood Count 13.1 H 4.3-11.0 10^3/uL Red Blood Count 3.78 L 4.35-5.85 10^6/uL Hemoglobin 11.4 L 13.3-17.7 G/DL Hematocrit 39 L 40-54 % Mean Corpuscular Volume 102 H 80-99 FL Mean Corpuscular Hemoglobin 30 25-34 PG Mean Corpuscular Hemoglobin Concent 30 L 32-36 G/DL Red Cell Distribution Width 13.0 10.0-14.5 % Platelet Count 158 130-400 10^3/uL Mean Platelet Volume 10.4 7.4-10.4 FL Neutrophils (%) (Auto) 73 42-75 % Lymphocytes (%) (Auto) 19 12-44 % Monocytes (%) (Auto) 7 0-12 % Eosinophils (%) (Auto) 0 0-10 % Basophils (%) (Auto) 0 0-10 % Neutrophils # (Auto) 9.6 H 1.8-7.8 X 10^3 Lymphocytes # (Auto) 2.5 1.0-4.0 X 10^3 Monocytes # (Auto) 0.9 0.0-1.0 X 10^3 Eosinophils # (Auto) 0.1 0.0-0.3 10^3/uL Basophils # (Auto) 0.0 0.0-0.1 10^3/uL Sodium Level 145 135-145 MMOL/L Potassium Level 4.4 3.6-5.0 MMOL/L Chloride Level 92 L 98-107 MMOL/L Carbon Dioxide Level 43 H 21-32 MMOL/L Anion Gap 10 5-14 MMOL/L Blood Urea Nitrogen 9 7-18 MG/DL Creatinine 0.86 0.60-1.30 MG/DL Estimat Glomerular Filtration Rate > 60 BUN/Creatinine Ratio 10 Glucose Level 117 H 70-105 MG/DL Calcium Level 9.5 8.5-10.1 MG/DL Corrected Calcium 9.5 8.5-10.1 MG/DL Total Bilirubin 0.4 0.1-1.0 MG/DL Aspartate Amino Transf (AST/SGOT) 24 5-34 U/L Alanine Aminotransferase (ALT/SGPT) 23 0-55 U/L Alkaline Phosphatase 87 40-136 U/L Total Protein 6.9 6.4-8.2 GM/DL Albumin 4.0 3.2-4.5 GM/DL Lactic Acid Level 0.99 0.50-2.00 MMOL/L Blood Gas Puncture Site L RAD Blood Gas Patient Temperature 36.1 Arterial Blood pH 7.42 7.37-7.43 Arterial Blood Partial Pressure CO2 75 *H 35-45 MMHG Arterial Blood Partial Pressure O2 67 L 79-93 MMHG Arterial Blood HCO3 48 *H 23-27 MMOL/L Arterial Blood Total CO2 50.8 H 21.0-31.0 MMOL/L Arterial Blood Oxygen Saturation 90 L 94-100 % Arterial Blood Base Excess 22.0 H -2.5-2.5 MMOL/L Dexter Test YES-POS Blood Gas Ventilator Setting NO Blood Gas Inspired Oxygen 100% Prothrombin Time 11.9 L 12.2-14.7 SEC INR Comment 0.9 0.8-1.4 Activated Partial Thromboplast Time 30 24-35 SEC Test 11/08/19 10:09 11/08/19 11:02 11/08/19 15:00 11/08/19 16:46 Range/Units Troponin I < 0.028 < 0.028 <0.028 NG/ML Urine Color YELLOW Urine Clarity SL CLOUDY Urine pH 8.0 5-9 Urine Specific [place] 1.020 1.016-1.022 Urine Protein 1+ H NEGATIVE Urine Glucose (UA) NEGATIVE NEGATIVE Urine Ketones TRACE H NEGATIVE Urine Nitrite NEGATIVE NEGATIVE Urine Bilirubin 1+ H NEGATIVE Urine Urobilinogen 1.0 < = 1.0 MG/DL Urine Leukocyte Esterase NEGATIVE NEGATIVE Urine RBC (Auto) NEGATIVE NEGATIVE Urine RBC NONE /HPF Urine WBC 0-2 /HPF Urine Crystals NONE /LPF Urine Bacteria TRACE /HPF Urine Casts NONE /LPF Urine Mucus MODERATE H /LPF Urine Culture Indicated CULTURE PENDING Glucometer 230 H 70-110 MG/DL Physical Exam Physical Exam Vital Signs Vital Signs - First Documented 11/08/19 11/08/19 09:11 09:29 Temp 36.7 Pulse 118 Resp 32 B/P (MAP) 136/72 (93) Pulse Ox 81 O2 Delivery OxyMask O2 Flow Rate 15.00 FiO2 100 Capillary Refill : NONE Height, Weight, BMI Height: 5'8.00" Weight: 174lbs. 0.0oz. 78.028812fv; 27.00 BMI Method:Stated General Appearance: No Apparent Distress, Chronically ill HEENT: PERRL/EOMI, Moist Mucous Membranes; No Scleral Icterus (L), No Scleral Icterus (R) Neck: Normal Inspection, Supple Respiratory: No Accessory Muscle Use, Decreased Breath Sounds, Wheezing, Other (on vapotherm) Cardiovascular: Regular Rate, Rhythm, No Murmur Gastrointestinal: Normal Bowel Sounds, Non Tender, Soft Extremity: No Calf Tenderness, Swelling (trace bilaterally) Neurologic/Psychiatric: Alert, Oriented x3, Normal Mood/Affect Skin: Normal Color, Warm/Dry A/P-Cardiology Admission Diagnosis Unstable angina Acute respiratory failure Coronary artery disease COPD Assessment/Plan Chest pain, has history of chronic chest pain chronic stable angina, resistant to multiple medication, multiple cardiac catheterization as described below. So far his cardiac enzymes are negative. Continue to monitor Shortness of breath, severe oxygen dependency with acute exacerbation of COPD. Currently on Vapotherm. Managed by primary care team. Pneumonia, receiving antibiotic and managed by primary care team. Peripheral edema, maintained on Lasix, continue with diuretics and monitor. Coronary artery disease, last cardiac catheterization was done in September 2014 showing total occlusion of the LAD at its midportion with occluded vein graft to the LAD did not fill with collaterals on this study, patent stent in the proximal LAD to the diagonal artery, mild disease in the circumflex and right coronary artery, prominent left ventricle with EF 45 percent. Repeat cardiac catheterization was done in March 2018 showing total occlusion of the mid LAD and the vein graft to the LAD, patent stent in the proximal LAD that was providing flow to the first diagonal branch, mild disease in the circumflex artery and right coronary artery, the apex of the left ventricular still akinetic with ejection fraction 45-50 percent. Continue with medical therapy. History of congestive heart failure with left ventricular systolic dysfunction, last echocardiogram showed normal left ventricular systolic function with ejection fraction 55-65 percent with pulmonary hypertension PA pressure of 45 mmHg. resolved Peripheral arterial disease, history of stent to the left lower extremity, having pain in his lower extremity, seen and evaluated with heart and vascular care, had angiogram and balloon angioplasty with angioscore cutting balloon 5x40 mm to the left external iliac then stenting to the left external iliac artery with 6x50 Viabahn postdilated with a Brent balloon. Done by Dr. Jackson. Followed by heart and vascular care. Hypertension, restart home medication and monitor Hyperlipidemia, monitor lipids Tobaccoism, expressed that he has stopped smoking, encouraged to continue with smoking cessation Carotid stenosis, showing severe right carotid stenosis, 60-79 percent. Mild left carotid stenosis 1-39 percent. Followed and managed by heart and vascular care. Anxiety. Clinical Quality Measures DVT/VTE Risk/Contraindication: Risk Factor Score Per Nursin RFS Level Per Nursing on Admit: 4+=Very High JOSHUA CASTILLO MD Nov 08, 2019 17:28
[2019-11-08] MEDS: methylPREDNISolone 40 MG/ML (Solu-MEDROL) VIAL IV SCH ×2 (18:36→23:51)
[2019-11-08] MEDS: inSUlin ASPART (NovoLOG) 1 UNIT/0.01 ML (CHARGE PER UNIT) SC SCH ×2 (18:36→20:35)
[2019-11-08] MEDS: PIPERACILLIN/TAZO 4.5 GM/NS 100 ML IV SCH ×2 (18:37)
[2019-11-08] MEDS: RANOLAZINE ER 500 MG TAB (RANEXA) PO SCH (20:35)
[2019-11-08] MEDS: ENOXAPARIN 40 MG/0.4 ML (LOVENOX) SYR SC SCH (20:36)
[2019-11-08] MEDS: MIRTAZAPINE 15 MG (REMERON) TAB PO SCH (20:36)
[2019-11-08] MEDS: CARVEDILOL 6.25 MG (COREG) TAB PO SCH (20:36)
[2019-11-08] MEDS ORDERED: NON-FORMULARY MEDICATION 1 EA EA (Ranolazine (Ranexa) 1,000 MG) PO SCH (21:00)
[2019-11-08] MEDS ORDERED: NON-FORMULARY MEDICATION 1 EA EA (Mirtazapine 30 MG) PO SCH (21:00)
[2019-11-09] VITALS (25 sets, daily range): BP systolic 102–142; BP diastolic 60–86
[2019-11-09] MEDS: RT-ALBUTEROL/IPRATROPIUM 3 ML (DUONEB) VIAL INH SCH ×6 (01:57→21:17)
[2019-11-09] MEDS: PIPERACILLIN/TAZO 4.5 GM/NS 100 ML IV SCH ×6 (02:17→17:20)
[2019-11-09 03:16] LABS: BASOPHILS % (AUTO) 0 % (0-10); EOSINOPHILS % (AUTO) 0 % (0-10); HEMATOCRIT 35 % (40-54); HEMOGLOBIN 10.4 G/DL (13.3-17.7); LYMPHOCYTES # (AUTO) 0.6 X 10^3 (1.0-4.0); LYMPHOCYTES % (AUTO) 4 % (12-44); MEAN CORPUSCULAR HEMOGLOBIN 30 PG (25-34); MEAN CORPUSCULAR HGB CONC 30 G/DL (32-36); MEAN CORPUSCULAR VOLUME 100 FL (80-99); MEAN PLATELET VOLUME 10.2 FL (7.4-10.4); MONOCYTES # (AUTO) 0.4 X 10^3 (0.0-1.0); MONOCYTES % (AUTO) 3 % (0-12); NEUTROPHILS # (AUTO) 14.5 X 10^3 (1.8-7.8); NEUTROPHILS % (AUTO) 94 % (42-75); PLATELET COUNT 135 10^3/uL (130-400); RED CELL DISTRIBUTION WIDTH 12.8 % (10.0-14.5); WHITE BLOOD COUNT 15.5 10^3/uL (4.3-11.0)
[2019-11-09 03:32] LABS: BAND NEUTROPHILS 8 %; LYMPHOCYTES % (MANUAL) 1 %; MONOCYTES % (MANUAL) 3 %; NEUTROPHILS % (MANUAL) 88 %
[2019-11-09 03:41] LABS: BUN/CREATININE RATIO 19; CALCIUM 9.2 MG/DL (8.5-10.1); CARBON DIOXIDE 42 MMOL/L (21-32); CHLORIDE 92 MMOL/L (98-107); CREATININE SERUM 0.96 MG/DL (0.60-1.30); GFR ESTIMATED > 60; GLUCOSE 147 MG/DL (70-105); MAGNESIUM 1.9 MG/DL (1.6-2.4); POTASSIUM 3.9 MMOL/L (3.6-5.0); SODIUM 142 MMOL/L (135-145)
[2019-11-09 03:53] LABS: ABG BASE EXCESS 20.3 MMOL/L (-2.5-2.5); ABG OXYGEN SATURATION 95 % (94-100); ABG PH 7.43 (7.37-7.43); ABG PO2 78 MMHG (79-93); ABG TCO2 48.5 MMOL/L (21.0-31.0)
[2019-11-09] MEDS: NOREPINEPHRINE 4 MG/250 ML 250 ML IV SCH ×3 (03:53→20:21)
[2019-11-09] MEDS: VASOPRESSIN INJECTION 20 UNIT in NORMAL SALINE 100 ML IV SCH ×3 (03:53→20:21)
[2019-11-09] MEDS: inSUlin ASPART (NovoLOG) 1 UNIT/0.01 ML (CHARGE PER UNIT) SC SCH ×4 (03:54→20:38)
[2019-11-09 03:55] LABS: ABG PCO2 71 MMHG (35-45)
[2019-11-09 03:56] LABS: ALLENS TEST YES-POS; PATIENT TEMP 36.4; VENTILATOR NO
--- NOTE | 2019-11-09 05:39 | Pulmonary Consultation ---
History of Present Illness History of Present Illness Date Seen by Provider: Nov 09, 2019 Time Seen by Provider: 05:34 Date of Admission Reason for Visit: chest pain and shortness of breath Allergies and Home Medications Allergies Coded Allergies: budesonide (Verified Allergy, Severe, angioedema, 12/06/18) formoterol (Verified Allergy, Severe, angioedema, 12/06/18) tetanus toxoid, adsorbed (Verified Allergy, Mild, hives, 12/06/18) DOROTA Inhibitors (Verified Allergy, Unknown, Angioedema, 12/06/18) Home Medications Albuterol Sulfate 2.5 Mg/3 Ml Vial.neb, 2.5 MG NEB TID, (Reported) Albuterol Sulfate 1 Puff Puff, 2 PUFF IH PRN PRN for SHORTNESS OF BREATH, (Reported) Amlodipine Besylate 5 Mg Tablet, 5 MG PO DAILY, (Reported) Aripiprazole 30 Mg Tablet, 30 MG PO DAILY, (Reported) Aspirin 81 Mg Tablet.dr, 81 MG PO DAILY, (Reported) Atorvastatin Calcium 80 Mg Tablet, 80 MG PO DAILY, (Reported) Bupropion HCl 75 Mg Tablet, 75 MG PO DAILY, (Reported) Carvedilol 6.25 Mg Tablet, 6.25 MG PO BID, (Reported) LAST FILLED 05-24-2019 #180/90 DAY SUPPLY Clopidogrel Bisulfate 75 Mg Tablet, 75 MG PO DAILY, (Reported) Fluticasone/Salmeterol 1 Each Blst.w.dev, 1 EACH IH DAILY, (Reported) Isosorbide Mononitrate 30 Mg Tab.er.24h, 15 MG PO DAILY, (Reported) TAKES 1/2 (30MG) TABLET Mirtazapine 30 Mg Tablet, 30 MG PO HS, (Reported) Montelukast Sodium 10 Mg Tablet, 10 MG PO DAILY, (Reported) Nitroglycerin 0.4 Mg Tab.subl, 0.4 MG PO UD PRN for CHEST PAIN, (Reported) Dumont 3 Polyunsat Fatty Acids 1,000 Mg Cap, 1,000 MG PO DAILY, (Reported) Prednisone 10 Mg Tab, 10 MG PO DAILY, (Reported) Ranolazine 1,000 Mg Tab.er.12h, 1,000 MG PO BID, (Reported) LAST FILLED 05-24-2019 #180/90 DAY SUPPLY Sertraline HCl 100 Mg Tablet, 200 MG PO DAILY, (Reported) TAKES 2 (100MG) TABS DAILY Past Blhkets-Wwwvfy-Dxejuo Hx Past Med/Social Hx: Reviewed Nursing Past Med/Soc Hx Patient Social History Alcohol Use: Denies Use Recreational Drug Use: No Smoking Status: Former Smoker Type Used: Cigarettes Former Smoker, Quit: Dec 16, 2017 2nd Hand Smoke Exposure: Yes Recent Foreign Travel: No Contact w/Someone Who Travel: No Recent Infectious Disease Expo: No Recent Hopitalizations: No Immunizations Up To Date Tetanus Booster (TDap): Unknown PED Vaccines UTD: No Date of Pneumonia Vaccine: Mar 23, 2013 Date of Influenza Vaccine: Jul 31, 2017 Seasonal Allergies Seasonal Allergies: No Past Medical History Surgeries: Yes Abdominal, Cardiac, CABG, Coronary Stent, Tonsillectomy, Vascular Surgery Respiratory: Yes (WEARS O2 AT 5L/NC CONTINUOUSLY. RUL PULMONARY NODULE) Pneumonia, Chronic Bronchitis, COPD Currently Using CPAP: No Currently Using BIPAP: No Cardiac: Yes Coronary Artery Disease, Deep Vein Thrombosis, Heart Attack, High Cholesterol, Hypertension, Peripheral Vascular Neurological: Yes Stroke Reproductive Disorders: No Sexually Transmitted Disease: No HIV/AIDS: No Genitourinary: No Gastrointestinal: Yes Gastroesophageal Reflux, Ulcer Musculoskeletal: Yes Arthritis, Chronic Back Pain Endocrine: No HEENT: No Loss of Vision: Denies Hearing Impairment: Denies Cancer: No Psychosocial: Yes Sleep Difficulties, Anxiety, Schizophrenia, Depression Integumentary: No Blood Disorders: No Adverse Reaction/Blood Tranf: No Family Medical History Reviewed Nursing Family Hx Diabetes mellitus 19 MOTHER FH: heart disease 19 FATHER Heart Disease, Diabetes Review of Systems Time Seen by Provider: 05:43 Sepsis Event Evaluation Height, Weight, BMI Height: 5'8.00" Weight: 174lbs. 0.0oz. 78.885657bq; 27.00 BMI Method:Stated Exam Exam Vital Signs Date Time Temp Pulse Resp B/P (MAP) Pulse Ox O2 Delivery O2 Flow Rate FiO2 11/09/19 05:15 75 9 116/69 (85) 96 Vapotherm 30.00 50.00 11/09/19 04:00 73 27 111/63 (79) 93 Vapotherm 30.00 50.00 11/09/19 03:49 36.4 11/09/19 03:49 Vapotherm 30.00 55 11/09/19 03:00 78 15 110/77 (88) 96 Vapotherm 30.00 50.00 11/09/19 02:00 78 30 120/68 (85) 96 Vapotherm 30.00 50.00 11/09/19 01:58 95 Vapotherm 30.00 55 11/09/19 01:00 74 23 115/63 (80) 96 Vapotherm 30.00 55.00 11/09/19 01:00 74 11/09/19 00:00 79 23 114/63 (80) 95 Vapotherm 30.00 55.00 11/08/19 23:41 Vapotherm 30.00 55 11/08/19 23:41 36.8 11/08/19 23:00 89 21 124/68 (86) 97 Vapotherm 30.00 55.00 11/08/19 22:00 87 29 119/68 (85) 97 Vapotherm 30.00 55.00 11/08/19 21:28 97 14 98 Vapotherm 30.00 55.00 11/08/19 21:26 98 Vapotherm 30.00 65 11/08/19 21:00 110 27 133/70 (91) 100 Vapotherm 30.00 75.00 11/08/19 20:15 Vapotherm 30.00 55 11/08/19 20:00 36.8 11/08/19 20:00 105 26 126/62 (83) 96 Vapotherm 30.00 75.00 11/08/19 19:00 105 135/70 (91) 96 Vapotherm 30.00 75.00 11/08/19 19:00 105 11/08/19 18:15 100 Vapotherm 30.00 75 11/08/19 18:00 112 30 148/77 (100) 98 Vapotherm 30.00 75.00 11/08/19 17:10 30.00 75.00 11/08/19 17:00 114 27 149/78 (101) 98 Vapotherm 30.00 75.00 11/08/19 16:00 112 27 140/70 (93) 97 Vapotherm 40.00 85.00 11/08/19 16:00 36.6 11/08/19 16:00 98 Vapotherm 30.00 75 11/08/19 15:00 117 20 132/75 (94) 97 Vapotherm 40.00 85.00 11/08/19 14:31 96 Vapotherm 30.00 75 11/08/19 14:00 125 6 147/76 (99) 97 Vapotherm 40.00 85.00 11/08/19 13:56 36.7 118 81 11/08/19 13:22 136/75 11/08/19 13:21 136/75 11/08/19 13:01 96 Vapotherm 40.00 11/08/19 13:00 38.0 125 12 136/75 (95) 98 Vapotherm 40.00 85.00 11/08/19 13:00 126 11/08/19 12:42 125 25 141/78 94 Vapotherm 11/08/19 09:52 96 Vapotherm 40.00 100 11/08/19 09:29 83 Vapotherm 40.00 100 11/08/19 09:24 83 OxyMask 10.00 11/08/19 09:11 36.7 118 32 136/72 (93) 74 Nasal Cannula 6.00 11/08/19 09:11 81 OxyMask 15.00 I & O 11/09/19 07:00 Intake Total 1840 ml Output Total 800 ml Balance 1040 ml Height & Weight Height: 5'8.00" Weight: 174lbs. 0.0oz. 78.076878hv; 27.00 BMI Method:Stated General Appearance: No Apparent Distress, Chronically ill HEENT: PERRL/EOMI, Moist Mucous Membranes; No Scleral Icterus (L), No Scleral Icterus (R) Neck: Normal Inspection, Supple Respiratory: No Accessory Muscle Use, Decreased Breath Sounds, Wheezing, Other (on vapotherm) Cardiovascular: Regular Rate, Rhythm, No Murmur Capillary Refill: Less Than 3 Seconds Extremity: No Calf Tenderness, Swelling (trace bilaterally) Neurologic/Psychiatric: Alert, Oriented x3, Normal Mood/Affect Skin: Normal Color, Warm/Dry Results Lab Laboratory Tests 11/08/19 09:17 11/09/19 03:04 Assessment/Plan Assessment/Plan Acute on Chronic Respiratory Failure -Currently requiring Vapotherm Sepsis-with PNA -Lawler cultures pending -Continue Zosyn -MRSA pending COPD Continue Zosyn Continue Steroids -Duoneb CAD s/p CABG PAD CHF with Ef 45% Last cath 03/2018 Cardiology following HTN Well controlled, trend XIMENA QUINONES DO Nov 09, 2019 05:38
[2019-11-09] MEDS ORDERED: POTASSIUM CL 10MEQ/50ML IVPB 50 ML IV SCH (06:00)
[2019-11-09] MEDS ORDERED: MAGNESIUM 1 GM/100 ML IVPB 100 ML IV SCH (06:00)
[2019-11-09] MEDS ORDERED: KCL 20 MEQ TAB (K-DUR) PO SCH (06:00)
[2019-11-09] MEDS: methylPREDNISolone 40 MG/ML (Solu-MEDROL) VIAL IV SCH ×3 (06:26→17:20)
[2019-11-09] MEDS: ADVAIR HFA 115/21 MCG INHALER 8 GM IH SCH (07:12)
[2019-11-09] MEDS ORDERED: HOLD METFORMIN - RECEIVED CONTRAST 20 ML VIAL IV SCH (07:45)
[2019-11-09] MEDS ORDERED: NS 100 ML (IVPB) BAG IV ONE (07:45)
[2019-11-09] MEDS ORDERED: IOHEXOL 350 MG/ML 100 ML (OMNIPAQUE 350) VIAL IV ONE (07:45)
--- NOTE | 2019-11-09 08:12 | Diagnostic Imaging Report ---
Portable erect AP chest at 3:37. Indication: Dyspnea As noted on the prior exam of 11/08/2019 there is atelectasis/infiltrate and fluid involving much of the right lung. If anything the right mid lung is slightly better aerated than on the prior study. However mild left lower lobe atelectasis/infiltrate has developed in the left lung base. The upper lungs are generally clear. The heart is stable. The sternal wires and Surgiclips noted previously are again evident and no different. The mediastinum is not widened. The osseous structures are intact. Impression: There are mixed results. The right mid lung is somewhat better aerated than on the prior exam but mild pneumonia/atelectasis has developed in the left lung base. A followup study would be recommended for continued evaluation. Dictated by: Dictated on workstation # [id number]
[2019-11-09] MEDS: buPROPion 75 MG (WELLBUTRIN) TAB PO SCH (08:31)
[2019-11-09] MEDS: RANOLAZINE ER 500 MG TAB (RANEXA) PO SCH ×2 (08:32→20:21)
[2019-11-09] MEDS: MONTELUKAST 10 MG (SINGULAIR) TAB PO SCH (08:32)
[2019-11-09] MEDS: ASPIRIN E.C. 81 MG (ECOTRIN) TAB PO SCH (08:33)
[2019-11-09] MEDS: CARVEDILOL 6.25 MG (COREG) TAB PO SCH ×2 (08:33→20:20)
[2019-11-09] MEDS: CLOPIDOGREL 75 MG (PLAVIX) TABLET PO SCH (08:33)
[2019-11-09] MEDS: ISOSORBIDE MONONITRATE 30 MG (IMDUR) TAB PO SCH (08:33)
[2019-11-09] MEDS: SERTRALINE 100 MG (ZOLOFT) TAB PO SCH (08:35)
[2019-11-09] MEDS: amLODIPine 5 MG (NORVASC) TAB PO SCH (08:35)
--- NOTE | 2019-11-09 08:41 | Cardiology Progress Note ---
Subjective Date Seen by Provider: Nov 09, 2019 Time Seen by Provider: 08:40 Subjective/Events-last exam Patient is breathing better, feeling better, still on Vapotherm Review of Systems General: No Chills, No Night Sweats; Fatigue; No Malaise, No Appetite, No Other HEENT: No Head Aches, No Visual Changes, No Eye Pain, No Ear Pain, No Dysphasia, No Sinus Congestion, No Post Nasal Drip, No Sore Throat, No Other Pulmonary: Dyspnea; No Cough, No Pleuritic Chest Pain, No Other Cardiovascular: No: Chest Pain, Palpitations, Orthopnea, Paroxysmal Noc. Dyspnea, Edema, Lt Headedness, Other Focused Exam Lactate Level 11/08/19 09:21: Lactic Acid Level 0.99 Objective-Cardiology Exam Last Set of Vital Signs Vital Signs 11/09/19 11/09/19 11/09/19 11/09/19 03:49 06:00 07:17 08:00 Temp 36.4 Pulse 73 Resp 30 B/P (MAP) 104/61 (75) Pulse Ox 97 O2 Delivery Vapotherm O2 Flow Rate 20.00 50.00 FiO2 50 Capillary Refill : Less Than 3 Seconds I&O Intake and Output 11/09/19 00:00 Intake Total 1840 ml Output Total 675 ml Balance 1165 ml Intake Oral 1620 ml IV Total 220 ml Output Urine Total 675 ml Daily Weight Change No General: Alert, Oriented X3, Cooperative HEENT: Atraumatic, PERRLA Neck: Supple, No JVD, No Thyromegaly Lungs: Normal Air Movement, Other (bilateral wheezing) Heart: Regular Rate, Normal S1, Normal S2, No Murmurs Abdomen: Normal Bowel Sounds, Soft, No Tenderness, No Hepatosplenomegaly, No Masses Extremities: No Clubbing, No Cyanosis, No Edema, Normal Pulses, No Tenderness/Swelling Skin: No Rashes, No Breakdown, No Significant Lesion Neuro: Normal Gait, Normal Speech, Strength at 5/5 X4 Ext, Normal Tone, Sensation Intact Psych/Mental Status: Mental Status NL, Mood NL Results Lab Laboratory Tests 11/08/19 09:17 11/09/19 03:04 A/P-Cardiology Admission Diagnosis Unstable angina Acute respiratory failure Coronary artery disease COPD Assessment/Plan Chest pain, has history of chronic chest pain chronic stable angina, resistant to multiple medication, multiple cardiac catheterization as described below. So far his cardiac enzymes are negative. Continue to monitor Shortness of breath, severe oxygen dependency with acute exacerbation of COPD. slightly better but still on Vapotherm. Managed by primary care team Pneumonia, receiving antibiotic and managed by primary care team. Peripheral edema, maintained on Lasix, continue with diuretics and monitor. Coronary artery disease, last cardiac catheterization was done in September 2014 showing total occlusion of the LAD at its midportion with occluded vein graft to the LAD did not fill with collaterals on this study, patent stent in the proximal LAD to the diagonal artery, mild disease in the circumflex and right coronary artery, prominent left ventricle with EF 45 percent. Repeat cardiac ca theterization was done in March 2018 showing total occlusion of the mid LAD and the vein graft to the LAD, patent stent in the proximal LAD that was providing flow to the first diagonal branch, mild disease in the circumflex artery and right coronary artery, the apex of the left ventricular still akinetic with ejection fraction 45-50 percent. Continue with medical therapy. History of congestive heart failure with left ventricular systolic dysfunction, last echocardiogram showed normal left ventricular systolic function with ejection fraction 55-65 percent with pulmonary hypertension PA pressure of 45 mmHg. resolved Peripheral arterial disease, history of stent to the left lower extremity, having pain in his lower extremity, seen and evaluated with heart and vascular care, had angiogram and balloon angioplasty with angioscore cutting balloon 5x40 mm to the left external iliac then stenting to the left external iliac artery with 6x50 Viabahn postdilated with a Brent balloon. Done by Dr. Jackson. Followed by heart and vascular care. Hypertension, restart home medication and monitor Hyperlipidemia, monitor lipids Tobaccoism, expressed that he has stopped smoking, encouraged to continue with smoking cessation Carotid stenosis, showing severe right carotid stenosis, 60-79 percent. Mild left carotid stenosis 1-39 percent. Followed and managed by heart and vascular care. Anxiety. Clinical Quality Measures DVT/VTE Risk/Contraindication: Risk Factor Score Per Nursin RFS Level Per Nursing on Admit: 4+=Very High JOSHUA CASTILLO MD Nov 09, 2019 8:41 am
[2019-11-09] MEDS ORDERED: NON-FORMULARY MEDICATION 1 EA EA (Fluticasone/Salmeterol (Advair 250-50 Diskus) 1 EACH) IH SCH (09:00)
[2019-11-09] MEDS ORDERED: ARIPIPRAZOLE 30 MG PO SCH (09:00)
--- NOTE | 2019-11-09 09:03 | NUR ---
patient expresses concern to this nurse about the CT scan, patient states that he has been unable to lay flat. It was reported to me that patient slept upright throughout the night. Patient and this nurse discussed CT and decided to see how patient tolerated laying flat in the bed, patient unable to tolerate laying flat and requested to be sat up immediately. patient states that he cannot breathe when he is flat. This nurse updated , order received to hold CT for now. This nurse called CT and updated Bita calero.
--- NOTE | 2019-11-09 09:03 | Progress Note - Hospitalist ---
Subjective HPI/CC On Admission Date Seen by Provider: Nov 09, 2019 Time Seen by Provider: 08:52 Patient is a 63-year-old male with a past medical history of coronary artery disease status post failed CABG with resultant coronary stenting, artery disease, ischemic cardiomyopathy, hypertension, peripheral artery disease who presented to the emergency department due chest pain and shortness of breath. He states it started suddenly this morning and yesterday he felt well. He was short of breath with chest pain across his chest. He took a nitro without any improvement. This prompted him to seek evaluation in the ER so he summoned an ambulance. He was given ASA x2 in the ambulance. On presentation he was found to have oxygen saturations of 74% on 6lpm. He was started on an oxymask but did not tolerate it well. Intubation was considered but he was transitioned to Vapotherm and did well with this. He was admitted to the ICU for pneumonia. Subjective/Events-last exam Pt reports feeling better. No more chest pain. Titrating down on oxygen. Had some bloody sputum this AM. Focused Exam Lactate Level 11/08/19 09:21: Lactic Acid Level 0.99 Objective Exam Vital Signs Vital Signs Date Time Temp Pulse Resp B/P (MAP) Pulse Ox O2 Delivery O2 Flow Rate FiO2 11/09/19 08:00 Vapotherm 20.00 50.00 11/09/19 07:17 97 50 11/09/19 06:00 73 30 104/61 (75) 11/09/19 03:49 36.4 Capillary Refill : Less Than 3 Seconds General Appearance: No Apparent Distress, Chronically ill Respiratory: No Accessory Muscle Use, Decreased Breath Sounds, Other (on vapotherm) Cardiovascular: Regular Rate, Rhythm, No Murmur Gastrointestinal: Normal Bowel Sounds, Non Tender, Soft Neurologic/Psychiatric: Alert, Oriented x3 Results/Procedures Lab Laboratory Tests 11/08/19 09:17 11/09/19 03:04 Patient resulted labs reviewed. Imaging: Reviewed Imaging Report Assessment/Plan Assessment and Plan Assess & Plan/Chief Complaint Acute on Chronic Respiratory Failure Sepsis- present on arrival Right lung pneumonia COPD On Vapotherm Pulm consulted, appreciate recs MAT protocol Continue Zosyn Continue Steroids New hemoptysis overnight, CT Chest ordered CAD s/p CABG PAD CHF with Ef 45% Last cath 03/2018 Troponin negative Cardiology consulted, appreciate recs HTN Well controlled, trend Depression and Bipolar Continue home meds Clinical Quality Measures DVT/VTE Risk/Contraindication: Risk Factor Score Per Nursin RFS Level Per Nursing on Admit: 4+=Very High JUAREZ TOLENTINO MD Nov 09, 2019 09:03
[2019-11-09] MEDS: LACTATED RINGERS 1,000 ML IV SCH (10:28)
--- NOTE | 2019-11-09 11:02 | Physician Query Clarification ---
PQ-Further Specificity Admission/Discharge Admission Date: Nov 08, 2019 at 12:05 Discharge Date: The medical record reflects the following clinical scenario: History/Risk Factors: Sepsis Acute on chronic respiratory failure Pneumonia Clinical Findings:WBC 13.1, T 36.7, P 118, R 32, pulse ox 74%. Blood gases: pH 7.42, pC02 75, p02 67, HC03 48, Total C02 50.8. Treatment:Albuterol nebulizer, IV Solu Medrol 125mg, Atrovent 0.5mg Inhalation therapy, Nasal Cannula 6L/OxyMask 15.00L and Vapotherm 40.00L. Question: Can you further specify Acute on chronic respiratory failure per the clinical indicators above? Please document a response in the Progress Notes or Discharge Summary. 1. Acute on chronic respiratory failure due to sepsis. 2. Acute on chronic respiratory failure not due to sepsis. 3. Other, with explanation of the clinical findings. 4. Clinically undetermined, no explanation for the clinical findings. PHYSICIAN RESPONSE Can you specify per above: 1 Please remember a lack of response to the above will prompt a phone page by CDI/Coding staff. In responding to this query, please exercise your independent professional j udgment. The purpose of this communication is to more accurately reflect the complexity of your patients condition. The fact that a question is asked does not imply that any particular answer is desired or expected. Thank you for your timely response to this clarification. Requestors name: Sherry Ceron [facility] Phone # ext [phone] or [phone] THIS PHYSICIAN QUERY FORM IS A PERMANENT PART OF THE MEDICAL RECORD SHERRY CERON Nov 09, 2019 11:02 JUAREZ TOLENTINO MD Nov 10, 2019 14:15
[2019-11-09] MEDS: ENOXAPARIN 40 MG/0.4 ML (LOVENOX) SYR SC SCH (20:20)
[2019-11-09] MEDS: MIRTAZAPINE 15 MG (REMERON) TAB PO SCH (20:21)
[2019-11-10] VITALS (13 sets, daily range): BP systolic 101–158; BP diastolic 61–85
[2019-11-10] MEDS: methylPREDNISolone 40 MG/ML (Solu-MEDROL) VIAL IV SCH (00:42)
[2019-11-10] MEDS: RT-ALBUTEROL/IPRATROPIUM 3 ML (DUONEB) VIAL INH SCH ×6 (02:03→23:53)
[2019-11-10 03:08] LABS: BASOPHILS % (AUTO) 0 % (0-10); EOSINOPHILS % (AUTO) 0 % (0-10); HEMATOCRIT 33 % (40-54); LYMPHOCYTES # (AUTO) 0.5 X 10^3 (1.0-4.0); LYMPHOCYTES % (AUTO) 3 % (12-44); MEAN CORPUSCULAR HEMOGLOBIN 30 PG (25-34); MEAN CORPUSCULAR HGB CONC 31 G/DL (32-36); MEAN CORPUSCULAR VOLUME 98 FL (80-99); MEAN PLATELET VOLUME 10.5 FL (7.4-10.4); MONOCYTES # (AUTO) 0.4 X 10^3 (0.0-1.0); MONOCYTES % (AUTO) 3 % (0-12); NEUTROPHILS # (AUTO) 13.5 X 10^3 (1.8-7.8); NEUTROPHILS % (AUTO) 94 % (42-75); PLATELET COUNT 131 10^3/uL (130-400); RED CELL DISTRIBUTION WIDTH 13.3 % (10.0-14.5); WHITE BLOOD COUNT 14.4 10^3/uL (4.3-11.0)
[2019-11-10 03:22] LABS: CHLORIDE 96 MMOL/L (98-107); POTASSIUM 3.8 MMOL/L (3.6-5.0); SODIUM 142 MMOL/L (135-145)
[2019-11-10 03:23] LABS: CALCIUM 8.8 MG/DL (8.5-10.1)
[2019-11-10 03:24] LABS: GLUCOSE 226 MG/DL (70-105)
[2019-11-10 03:25] LABS: CARBON DIOXIDE 35 MMOL/L (21-32)
[2019-11-10 03:27] LABS: PHOSPHORUS 2.9 MG/DL (2.3-4.7)
[2019-11-10 03:28] LABS: CREATININE SERUM 1.03 MG/DL (0.60-1.30); GFR ESTIMATED > 60
[2019-11-10 03:29] LABS: BUN/CREATININE RATIO 20
[2019-11-10 03:30] LABS: MAGNESIUM 1.9 MG/DL (1.6-2.4)
--- NOTE | 2019-11-10 04:46 | Pulmonary Progress Note ---
Subjective Time Seen by a Provider: 04:41 Sepsis Event Evaluation Height, Weight, BMI Height: 5'8.00" Weight: 174lbs. 0.0oz. [id number]; 27.00 BMI Method:Stated Focused Exam Lactate Level 11/08/19 09:21: Lactic Acid Level 0.99 Exam Exam Vital Signs Date Time Temp Pulse Resp B/P (MAP) Pulse Ox O2 Delivery O2 Flow Rate FiO2 11/10/19 04:08 High Flow N/C 8.00 11/10/19 02:59 36.6 11/10/19 02:03 98 High Flow N/C 8.00 11/10/19 01:00 84 11/10/19 01:00 36.4 85 18 124/76 (92) 100 High Flow N/C 30.00 50.00 11/10/19 00:46 High Flow N/C 8.00 11/10/19 00:46 37.1 High Flow N/C 8.00 11/09/19 21:18 98 High Flow N/C 10.00 11/09/19 20:00 36.2 11/09/19 20:00 High Flow N/C 10.00 11/09/19 19:00 98 11/09/19 18:10 95 High Flow N/C 10.00 11/09/19 18:00 96 28 139/75 (96) 97 Vapotherm 30.00 50.00 11/09/19 17:00 90 27 125/74 (91) 95 Vapotherm 30.00 50.00 11/09/19 16:00 94 20 125/74 (91) 94 Vapotherm 30.00 50.00 11/09/19 16:00 36.9 11/09/19 16:00 High Flow N/C 10.00 11/09/19 15:00 86 13 117/71 (86) 97 Vapotherm 30.00 50.00 11/09/19 14:43 94 High Flow N/C 10.00 11/09/19 14:00 80 11 118/64 (82) 100 Vapotherm 30.00 50.00 11/09/19 13:13 83 11/09/19 13:00 83 13 103/63 (76) 96 Vapotherm 30.00 50.00 11/09/19 12:00 Vapotherm 10.00 55 11/09/19 12:00 36.5 11/09/19 12:00 96 26 118/60 (79) 100 Vapotherm 30.00 50.00 11/09/19 11:00 85 49 118/68 (85) 99 Vapotherm 30.00 50.00 11/09/19 10:29 93 Vapotherm 20.00 50 11/09/19 10:00 89 15 125/74 (91) 95 Vapotherm 30.00 50.00 11/09/19 09:00 90 15 105/63 (77) 91 Vapotherm 30.00 50.00 11/09/19 08:00 91 14 127/64 (85) 92 Vapotherm 30.00 50.00 11/09/19 08:00 Vapotherm 20.00 50.00 11/09/19 08:00 Vapotherm 30.00 55 11/09/19 07:17 97 Vapotherm 20.00 50 11/09/19 07:11 100 Vapotherm 30.00 50 11/09/19 07:00 72 11/09/19 07:00 73 9 102/86 (91) 94 Vapotherm 30.00 50.00 11/09/19 06:00 73 30 104/61 (75) 95 Vapotherm 30.00 50.00 11/09/19 05:15 75 9 116/69 (85) 96 Vapotherm 30.00 50.00 I & O 11/10/19 07:00 Intake Total 2110 ml Output Total 1785 ml Balance 325 ml Height & Weight Height: 5'8.00" Weight: 174lbs. 0.0oz. [id number]; 27.00 BMI Method:Stated General Appearance: No Apparent Distress, Chronically ill HEENT: PERRL/EOMI, Moist Mucous Membranes Neck: Normal Inspection, Supple Respiratory: No Accessory Muscle Use, Decreased Breath Sounds, Other (on vapotherm) Cardiovascular: Regular Rate, Rhythm, No Murmur Capillary Refill: Less Than 3 Seconds Extremity: No Calf Tenderness, Swelling Neurologic/Psychiatric: Alert, Oriented x3 Skin: Normal Color, Warm/Dry Results Lab Laboratory Tests 11/08/19 09:17 11/09/19 03:04 11/10/19 02:53 Assessment/Plan Assessment/Plan Acute on Chronic Respiratory Failure -Currently on high flow NC Sepsis-with PNA -Lawler cultures pending - Zosyn -MRSA-- neg COPD Continue Zosyn Continue Steroids -Duoneb CAD s/p CABG PAD CHF with Ef 45% Last cath 03/2018 Cardiology following HTN Well controlled, trend XIMENA QUINONES DO Nov 10, 2019 04:46
[2019-11-10] MEDS: PIPERACILLIN/TAZO 4.5 GM/NS 100 ML IV SCH ×6 (05:03→18:30)
[2019-11-10] MEDS: inSUlin ASPART (NovoLOG) 1 UNIT/0.01 ML (CHARGE PER UNIT) SC SCH ×4 (05:03→20:47)
[2019-11-10] MEDS: ADVAIR HFA 115/21 MCG INHALER 8 GM IH SCH (06:15)
[2019-11-10] MEDS: ISOSORBIDE MONONITRATE 30 MG (IMDUR) TAB PO SCH (07:41)
[2019-11-10] MEDS: CLOPIDOGREL 75 MG (PLAVIX) TABLET PO SCH (07:41)
[2019-11-10] MEDS: SERTRALINE 100 MG (ZOLOFT) TAB PO SCH (07:41)
[2019-11-10] MEDS: CARVEDILOL 6.25 MG (COREG) TAB PO SCH ×2 (07:41→22:13)
[2019-11-10] MEDS: amLODIPine 5 MG (NORVASC) TAB PO SCH (07:41)
[2019-11-10] MEDS: ASPIRIN E.C. 81 MG (ECOTRIN) TAB PO SCH (07:41)
[2019-11-10] MEDS: MONTELUKAST 10 MG (SINGULAIR) TAB PO SCH (07:41)
[2019-11-10] MEDS: buPROPion 75 MG (WELLBUTRIN) TAB PO SCH (07:41)
[2019-11-10] MEDS: RANOLAZINE ER 500 MG TAB (RANEXA) PO SCH ×2 (07:42→22:13)
--- NOTE | 2019-11-10 08:10 | Progress Note - Hospitalist ---
Subjective HPI/CC On Admission Date Seen by Provider: Nov 10, 2019 Time Seen by Provider: 08:04 Patient is a 63-year-old male with a past medical history of coronary artery disease status post failed CABG with resultant coronary stenting, artery disease, ischemic cardiomyopathy, hypertension, peripheral artery disease who presented to the emergency department due chest pain and shortness of breath. He states it started suddenly this morning and yesterday he felt well. He was short of breath with chest pain across his chest. He took a nitro without any improvement. This prompted him to seek evaluation in the ER so he summoned an ambulance. He was given ASA x2 in the ambulance. On presentation he was found to have oxygen saturations of 74% on 6lpm. He was started on an oxymask but did not tolerate it well. Intubation was considered but he was transitioned to Vapotherm and did well with this. He was admitted to the ICU for pneumonia. Subjective/Events-last exam Pt reports feeling better. No more chest pain. Breathing improved. Has some nausea though. Focused Exam Lactate Level 11/08/19 09:21: Lactic Acid Level 0.99 Objective Exam Vital Signs Vital Signs Date Time Temp Pulse Resp B/P (MAP) Pulse Ox O2 Delivery O2 Flow Rate FiO2 11/10/19 07:46 High Flow N/C 3.00 11/10/19 07:18 37.0 11/10/19 06:15 98 11/10/19 06:00 87 28 139/83 (101) 11/09/19 12:00 55 Capillary Refill : Less Than 3 Seconds General Appearance: No Apparent Distress, WD/WN, Chronically ill Respiratory: Lungs Clear, No Accessory Muscle Use, No Respiratory Distress Cardiovascular: Regular Rate, Rhythm, No Murmur Gastrointestinal: Normal Bowel Sounds, Soft Extremity: No Calf Tenderness, No Pedal Edema Neurologic/Psychiatric: Alert, Oriented x3 Results/Procedures Lab Laboratory Tests 11/10/19 02:53 Patient resulted labs reviewed. Imaging: Reviewed Imaging Report Assessment/Plan Assessment and Plan Assess & Plan/Chief Complaint Acute on Chronic Respiratory Failure Sepsis- present on arrival Right lung pneumonia COPD Now on 3lpm HFNC (down from baseline 4lpm) Pulm consulted, appreciate recs MAT protocol Continue Zosyn Solu-Medrol stopped today, will switch to prednisone New hemoptysis overnight, CT Chest ordered but patient stated he was not able to tolerate CTs so declined it Transfer to 4th floor PT/OT CAD s/p CABG PAD CHF with EF 45% Last cath 03/2018 Troponin negative Cardiology consulted, appreciate recs HTN Well controlled, trend Depression and Bipolar Continue home meds Clinical Quality Measures DVT/VTE Risk/Contraindication: Risk Factor Score Per Nursin RFS Level Per Nursing on Admit: 4+=Very High JUAREZ TOLENTINO MD Nov 10, 2019 08:10
[2019-11-10] MEDS ORDERED: predniSONE 20 MG TAB PO ONE (08:15)
--- NOTE | 2019-11-10 08:18 | NUR ---
PATIENT TRANSFERRED TO ROOM 403 AT THIS TIME WITHOUT INCIDENT. REPORT GIVEN TO RACHEL RAMOS, TO ASSUME CARE OF PATIENT. PERSONAL BELONGINGS SENT WITH PATIENT.
--- NOTE | 2019-11-10 08:18 | NUR ---
REPORT RECEIVED FROM REGIONAL SALES ENGINEER RACHEL ALBERTO. PATIENT TO ROOM 403 VIA WHEELCHAIR. PATIENT SETTLED IN RECLINER. DENIES ANY NEEDS AT THIS TIME. WILL CONTINUE TO MONITOR.
--- NOTE | 2019-11-10 08:45 | Diagnostic Imaging Report ---
INDICATION: Dyspnea. COMPARISON: 11/09/2019. FINDINGS: A single frontal radiographic view of the chest was obtained. There is continued interval improved aeration of the right base. Some mild generalized haziness with scattered patchy alveolar opacities persists, suggestive of effusion with associated atelectasis and/or infiltrate. Minimal left basilar airspace disease is also noted but is stable. There is no large effusion on the left. No pneumothorax is seen on either side. The cardiac silhouette and pulmonary vasculature remain mildly prominent. Sternotomy wires are noted. IMPRESSION: 1. Interval improved aeration of the right base but with persistent probable small effusion and associated atelectasis. 2. Minimal atelectatic appearing opacities within the left lung. Dictated by: Dictated on workstation # [id number]
--- NOTE | 2019-11-10 08:48 | Physical Therapy Evaluation ---
PT Evaluation-General Medical Diagnosis Admission Date Nov 08, 2019 at 12:05 Medical Diagnosis: debility Onset Date: Nov 08, 2019 Therapy Diagnosis Therapy Diagnosis: impaired mobility, strength, endurance Height/Weight Height (Feet): 5 Height (Inches): 8.00 Weight (Pounds): 174 Weight (Ounces): 0.0 Precautions Precautions/Isolations: Fall Prevention, Standard Precautions Referral Physician: Karie Luque MD Reason for Referral: Evaluation/Treatment Medical History Additional Medical History Past Medical History Surgeries: Abdominal, Cardiac, CABG, Coronary Stent, Tonsillectomy, Vascular Surgery Respiratory: COPD Currently Using CPAP: No Currently Using BIPAP: No Cardiac: Coronary Artery Disease, Deep Vein Thrombosis, Heart Attack, High Cholesterol, Hypertension, Peripheral Vascular Neurological: Stroke Reproductive: No Sexually Transmitted Disease: No HIV/AIDS: No Gastrointestinal: Gastroesophageal Reflux, Ulcer Musculoskeletal: Arthritis, Chronic Back Pain Loss of Vision: Denies Hearing Impairment: Denies Psychosocial: Sleep Difficulties, Anxiety, Schizophrenia, Depression Reviewed History: Yes Social History Home: Single Level Current Living Status: Spouse Entry Into Home: Stairs Without Railing PT Steps Into Home: 2 Prior Prior Level of Function SCALE: Activities may be completed with or without assistive devices. 9-Qvtplaxdst-lvneuso completes the activity by him/herself with no assistance from a helper. 5-Set-up or Clean-up Assistance-helper sets up or cleans up; patient completes activity. [place] assists only prior to or following the activity. 4-Supervision or Touching Assistance-helper provides verbal cues and/or touching/steadying and/or contact guard assistance as patient completes activity. Assistance may be provided throughout the activity or intermittently. 3-Partial/Moderate Assistance-helper does LESS THAN HALF the effort. [place] lifts, holds or supports trunk or limbs, but provides less than half the effort. 2-Substantial/Maximal Assistance-helper does MORE THAN HALF the effort. [place] lifts or holds trunk or limbs and provides more than half the effort. 8-Zwozblmlz-ysbckf does ALL the effort. Patient does none of the effort to complete the activity. Or, the assistance of 2 or more helpers is required for the patient to complete the activity. If activity was not attempted, code reason: 7-Patient Refused. 9-Not Applicable-not attempted and the patient did not perform the activity before the current illness, exacerbation or injury. 10-Not Attempted due to Environmental Limitations-(lack of equipment, weather restraints, etc.). 88-Not Attempted due to Medical Conditions or Safety Concerns. Bed Mobility: 6 Transfers (B,C,W/C): 6 Gait: 6 Stairs: 6 Indoor Mobility (Ambulation): Independent Stairs: Independent Patient is somewhat unclear about this but it appears that he was using both a SPC and 4-wheeled walker at various times. PT Evaluation-Current Subjective Patient in recliner pre tx, agrees to PT, has no complaints of pain, states he has to use the restroom to have a BM, patient needs no assist with cleaning or underwear. Pt/Family Goals to be independent at home Objective Patient Orientation: Person, Place, Situation Attachments: Oxygen ROM/Strength ROM Lower Extremities WNL Strength Lower Extremities 5/5 gross BLE except for knee flexion which is 4/5 bilaterally Sensory Vision: Wears Glasses Hearing: Functional Sensation Right Lower Extremit: Intact Sensation Left Lower Extremity: Intact Transfers Sit to Stand (QC): 4 Chair/Kjj-rk-Vagqs Xfer(QC): 4 Toilet Transfer (QC): 4 SBA Gait Does the Patient Walk?: Yes Mode of Locomotion: Walk Anticipated Mode of Locomotion: Walk Walk 10 feet (QC): 4 Walk 50 ft with 2 Turns(QC): 4 Distance: 120' Gait Assistive Device: FWW Comments/Gait Description brisk and steady ambulation Balance Sitting Static: Normal Sitting Dynamic: Normal Standing Static: Normal Standing Dynamic: Normal Treatment seated BLE exercise x20 (AP, LAQ) Assessment/Needs Patient has impaired mobility, strength, endurance. He is somewhat impulsive with movement, requiring cues for his O2 line, his speech is hard to understand. Rehab Potential: Fair PT Casting Associate Goals Usp Goals PT Usp Goals Time Frame: Nov 17, 2019 Roll Left & Right (QC): 6 Sit to Lying (QC): 6 Lying-Sitting on Side/Bed(QC): 6 Sit to Stand (QC): 6 Chair/Fsk-hn-Unavt Xfer(QC): 6 Walk 10 feet (QC): 6 Walk 50ft with 2 Turns (QC): 6 Walk 150 ft (QC): 6 1 Step (curb) (QC): 6 4 Steps (QC): 6 PT Plan Problem List Problem List: Activity Tolerance, Functional Strength, Safety, Balance, Gait, Transfer Treatment/Plan Treatment Plan: Continue Plan of Care Treatment Plan: Education, Functional Activity Evangelista, Functional Strength, Gait, Safety, Therapeutic Exercise, Transfers Treatment Duration: Nov 17, 2019 Frequency: 6 times per week Estimated Hrs Per Day: .25 hour per day Patient and/or Family Agrees t: Yes Safety Risks/Education Patient Education: Gait Training, Transfer Techniques, Correct Positioning, Safety Issues Teaching Recipient: Patient Teaching Methods: Demonstration, Discussion Response to Teaching: Reinforcement Needed Discharge Recommendations Plan Patient will perform bed mobility and transfer training, balance and endurance training, functional strengthening, stair training, gait training, and education, to improve functional mobility and independence at home. Therapy Discharge Recommendati: Home & Family Time/GCodes Time In: 827 Time Out: 0840 Total Billed Treatment Time: 12 Total Billed Treatment 1 visit DESTINEE Vazquez' MANN HERNANDEZ PT Nov 10, 2019 08:48
--- NOTE | 2019-11-10 10:53 | Cardiology Progress Note ---
Subjective Date Seen by Provider: Nov 10, 2019 Time Seen by Provider: 10:52 Subjective/Events-last exam Patient is sitting up in chair, reports some mild dyspnea. Denies any chest pain Review of Systems General: No Chills, No Night Sweats; Fatigue; No Malaise, No Appetite, No Other HEENT: No Head Aches, No Visual Changes, No Eye Pain, No Ear Pain, No Dysphasia, No Sinus Congestion, No Post Nasal Drip, No Sore Throat, No Other Pulmonary: Dyspnea, Cough; No Pleuritic Chest Pain, No Other Cardiovascular: Edema; No: Chest Pain, Palpitations, Orthopnea, Paroxysmal Noc. Dyspnea, Lt Headedness, Other Focused Exam Lactate Level 11/08/19 09:21: Lactic Acid Level 0.99 Objective-Cardiology Exam Last Set of Vital Signs Vital Signs 11/09/19 11/10/19 11/10/19 12:00 08:10 10:38 Temp 37.2 Pulse 89 Resp 20 B/P (MAP) 158/81 (106) Pulse Ox 93 O2 Delivery High Flow N/C O2 Flow Rate 3.50 FiO2 55 Capillary Refill : Less Than 3 Seconds I&O Intake and Output 11/10/19 00:00 Intake Total 2230 ml Output Total 1735 ml Balance 495 ml Intake Oral 2110 ml IV Total 120 ml Output Urine Total 1735 ml General: Alert, Oriented X3, Cooperative HEENT: Atraumatic, PERRLA Neck: Supple, No JVD, No Thyromegaly Lungs: Normal Air Movement, Other (bilateral wheezing) Heart: Regular Rate, Normal S1, Normal S2, No Murmurs Abdomen: Normal Bowel Sounds, Soft, No Tenderness, No Hepatosplenomegaly, No Masses Extremities: No Clubbing, No Cyanosis, No Edema, Normal Pulses, No Tenderne ss/Swelling Skin: No Rashes, No Breakdown, No Significant Lesion Neuro: Normal Gait, Normal Speech, Strength at 5/5 X4 Ext, Normal Tone, Sensation Intact Psych/Mental Status: Mental Status NL, Mood NL Results Lab Laboratory Tests 11/10/19 02:53 A/P-Cardiology Admission Diagnosis Unstable angina Acute respiratory failure Coronary artery disease COPD Assessment/Plan Chest pain, has history of chronic chest pain chronic stable angina, resistant to multiple medication, multiple cardiac catheterization as described below. So far his cardiac enzymes are negative. Continue to monitor Shortness of breath, severe oxygen dependency with acute exacerbation of COPD. Slowly improving. Managed by primary care team Pneumonia, receiving antibiotic and managed by primary care team. Peripheral edema, maintained on Lasix, continue with diuretics and monitor. Coronary artery disease, last cardiac catheterization was done in September 2014 showing total occlusion of the LAD at its midportion with occluded vein graft to the LAD did not fill with collaterals on this study, patent stent in the proximal LAD to the diagonal artery, mild disease in the circumflex and right coronary artery, prominent left ventricle with EF 45 percent. Repeat cardiac catheterization was done in March 2018 showing total occlusion of the mid LAD and the vein graft to the LAD, patent stent in the proximal LAD that was providing flow to the first diagonal branch, mild disease in the circumflex artery and right coronary artery, the apex of the left ventricular still akinetic with ejection fraction 45-50 percent. Continue with medical therapy. History of congestive heart failure with left ventricular systolic dysfunction, last echocardiogram showed normal left ventricular systolic function with ejection fraction 55-65 percent with pulmonary hypertension PA pressure of 45 mmHg. resolved Peripheral arterial disease, history of stent to the left lower extremity, having pain in his lower extremity, seen and evaluated with heart and vascular care, had angiogram and balloon angioplasty with angioscore cutting balloon 5x40 mm to the left external iliac then stenting to the left external iliac artery with 6x50 Viabahn postdilated with a Brent balloon. Done by Dr. Jackson. Followed by heart and vascular care. Hypertension, restart home medication and monitor Hyperlipidemia, monitor lipids Tobaccoism, expressed that he has stopped smoking, encouraged to continue with smoking cessation Carotid stenosis, showing severe right carotid stenosis, 60-79 percent. Mild left carotid stenosis 1-39 percent. Followed and managed by heart and vascular care. Anxiety. Patient was seen and evaluated with Carmen, examination performed, management plan was discussed, agree with the current scribed note, I made few changes to the note using Italic font Patient was seen at bedside, sitting comfortably, no chest pain, reporting improvement in his dyspnea but breathing better today, on nasal cannula Lungs had bilateral rhonchi and wheezing Responding well to treatment. Continue to monitor Monitor blood pressure and lipids. No change from cardiology standpoint Clinical Quality Measures DVT/VTE Risk/Contraindication: Risk Factor Score Per Nursin RFS Level Per Nursing on Admit: 4+=Very High CARMEN FAJARDO Nov 10, 2019 10:53 JOSHUA CASTILLO MD Nov 10, 2019 11:42
--- NOTE | 2019-11-10 13:12 | NUR ---
CM/SS visited with the patient for discharge planning. Plan: The patient will return home with , son, and phisfypa-dd-oit. Son will be the transportation and will bring patients portable oxygen. DME: The patient is a client of [facility]. This is where the patient receives his oxygen from-His current use was 4L continuous. He has a concentrator and portable tank at home. The patient also has a nebulizer, hospital bed, cane, and 4-wheeled walker ([place]). Home Health: No. The patient has not had home health. [place]: The patient utilizes services fro [facility]. His uhqnpthd-sg-wyn is employed and helps take care of him on Saturdays and Sundays. On the other days of the week his and son help assist him with cooking, bathing, and other daily living activities. Financial: The patient reports that he has great coverage from his insurance and quarterly he receives a $200 card to buy from an equipment book. Through this he has been able to get a shower chair and other equipment. No further needs at this time.
[2019-11-10 15:46] LABS: RSV PCR TEST Not Detected (Not Detected)
--- NOTE | 2019-11-10 20:44 | NUR ---
pt reports loose stools, asked for medication for his upset stomach. dr billy contacted, no new orders at this time
[2019-11-10] MEDS: ENOXAPARIN 40 MG/0.4 ML (LOVENOX) SYR SC SCH (22:13)
[2019-11-10] MEDS: MIRTAZAPINE 15 MG (REMERON) TAB PO SCH (22:13)
[2019-11-11] MEDS: RT-ALBUTEROL/IPRATROPIUM 3 ML (DUONEB) VIAL INH SCH ×3 (02:15→10:21)
[2019-11-11] MEDS: PIPERACILLIN/TAZO 4.5 GM/NS 100 ML IV SCH ×4 (02:49→10:30)
[2019-11-11 03:49] VITALS: BP 119/76
[2019-11-11] MEDS: inSUlin ASPART (NovoLOG) 1 UNIT/0.01 ML (CHARGE PER UNIT) SC SCH ×2 (05:41→11:00)
[2019-11-11 06:15] LABS: BASOPHILS % (AUTO) 0 % (0-10); EOSINOPHILS % (AUTO) 0 % (0-10); HEMATOCRIT 33 % (40-54); HEMOGLOBIN 9.7 G/DL (13.3-17.7); LYMPHOCYTES # (AUTO) 1.1 X 10^3 (1.0-4.0); LYMPHOCYTES % (AUTO) 11 % (12-44); MEAN CORPUSCULAR HEMOGLOBIN 29 PG (25-34); MEAN CORPUSCULAR HGB CONC 30 G/DL (32-36); MEAN CORPUSCULAR VOLUME 98 FL (80-99); MEAN PLATELET VOLUME 10.5 FL (7.4-10.4); MONOCYTES # (AUTO) 0.7 X 10^3 (0.0-1.0); MONOCYTES % (AUTO) 7 % (0-12); NEUTROPHILS # (AUTO) 8.4 X 10^3 (1.8-7.8); NEUTROPHILS % (AUTO) 82 % (42-75); PLATELET COUNT 130 10^3/uL (130-400); WHITE BLOOD COUNT 10.3 10^3/uL (4.3-11.0)
--- NOTE | 2019-11-11 06:16 | Pulmonary Progress Note ---
Subjective Time Seen by a Provider: 06:11 Subjective/Events-last exam No complications noted. Sepsis Event Evaluation Height, Weight, BMI Height: 5'8.00" Weight: 174lbs. 0.0oz. [id number]; 27.00 BMI Method:Stated Focused Exam Lactate Level 11/08/19 09:21: Lactic Acid Level 0.99 Exam Exam Vital Signs Date Time Temp Pulse Resp B/P (MAP) Pulse Ox O2 Delivery O2 Flow Rate FiO2 11/11/19 03:49 36.4 69 18 119/76 (90) 100 High Flow N/C 4.00 11/11/19 02:15 90 High Flow N/C 4.00 11/11/19 01:00 65 11/10/19 23:53 92 High Flow N/C 4.00 11/10/19 23:15 36.6 78 20 133/78 (96) 99 High Flow N/C 4.00 11/10/19 20:05 High Flow N/C 3.00 11/10/19 19:47 36.8 91 20 150/80 (103) 96 High Flow N/C 4.00 11/10/19 19:04 94 High Flow N/C 4.00 11/10/19 19:00 93 11/10/19 15:55 36.9 95 20 150/79 (102) 92 High Flow N/C 4.00 11/10/19 14:22 90 High Flow N/C 4.00 11/10/19 13:04 97 11/10/19 12:00 36.9 91 20 155/85 (108) 93 High Flow N/C 3.00 11/10/19 10:38 93 High Flow N/C 3.50 11/10/19 08:10 37.2 89 20 158/81 (106) 95 High Flow N/C 3.00 11/10/19 08:00 91 136/70 (92) 96 High Flow N/C 3.00 11/10/19 07:46 High Flow N/C 3.00 11/10/19 07:18 37.0 11/10/19 07:14 99 11/10/19 06:15 98 High Flow N/C 3.00 11/10/19 06:12 96 High Flow N/C 3.00 I & O 11/11/19 07:00 Intake Total 732 ml Output Total 200 ml Balance 532 ml Height & Weight Height: 5'8.00" Weight: 174lbs. 0.0oz. [id number]; 27.00 BMI Method:Stated General Appearance: No Apparent Distress, Chronically ill HEENT: PERRL/EOMI, Moist Mucous Membranes; No Scleral Icterus (L), No Scleral Icterus (R) Neck: Normal Inspection, Supple Respiratory: No Accessory Muscle Use, Decreased Breath Sounds, Wheezing, Other (on vapotherm) Cardiovascular: Regular Rate, Rhythm, No Murmur Capillary Refill: Less Than 3 Seconds Extremity: No Calf Tenderness, Swelling (trace bilaterally) Neurologic/Psychiatric: Alert, Oriented x3, Normal Mood/Affect Skin: Normal Color, Warm/Dry Results Lab Laboratory Tests 11/10/19 02:53 Assessment/Plan Assessment/Plan Acute on Chronic Respiratory Failure -titrate oxygen down Sepsis-with PNA -Lawler cultures pending -Check PCT - Zosyn -MRSA-- neg COPD Continue Zosyn Continue Steroids -Duoneb CAD s/p CABG PAD CHF with Ef 45% Last cath 03/2018 Cardiology following HTN Well controlled, trend XIMENA QUINONES DO Nov 11, 2019 06:16
[2019-11-11 06:36] LABS: BUN/CREATININE RATIO 25; CALCIUM 8.5 MG/DL (8.5-10.1); CARBON DIOXIDE 37 MMOL/L (21-32); CHLORIDE 100 MMOL/L (98-107); CREATININE SERUM 0.93 MG/DL (0.60-1.30); GFR ESTIMATED > 60; GLUCOSE 90 MG/DL (70-105); MAGNESIUM 2.1 MG/DL (1.6-2.4); PHOSPHORUS 3.5 MG/DL (2.3-4.7); SODIUM 142 MMOL/L (135-145)
[2019-11-11] MEDS: ADVAIR HFA 115/21 MCG INHALER 8 GM IH SCH (06:38)
[2019-11-11] MEDS ORDERED: predniSONE 20 MG TAB PO SCH (07:00)
--- NOTE | 2019-11-11 07:29 | Diagnostic Imaging Report ---
INDICATION: Dyspnea. Comparison made with prior examination from 11/10/2019. FINDINGS: There is cardiomegaly. There is some venous congestion. There is a right perihilar and basilar infiltrate. There is no pneumothorax. Mediastinum is unremarkable. There has been a previous median sternotomy and coronary bypass graft. IMPRESSION: Right perihilar and right basilar infiltrate suspect for pneumonia. Cardiomegaly and some central pulmonary venous congestion. Dictated by: Dictated on workstation # [id number]
[2019-11-11 08:00] VITALS: BP 149/81
--- NOTE | 2019-11-11 08:53 | Discharge Inst-Simple/Standard ---
Discharge Inst-Standard Discharge Medications New, Converted or Re-Newed RX: Transmitted to Pharmacy Patient Instructions/Follow Up Plan of Care/Instructions/FU: Please continue to take your medications as written. Please follow up with your primary care doctor in [address] Gray in 2 weeks. Activity as Tolerated: Yes Discharge Diet: Cardiac Diet Return to The Hospital For: Chest pain, shortness of breath, fever, confusion, if you feel you are getting worse. Planned Outpatient Orders/Ref. Pneu Vac Indicated: Yes JUAREZ TOLENTINO MD Nov 11, 2019 08:52
[2019-11-11] MEDS ORDERED: PRED10TA22 PO (08:55)
[2019-11-11] MEDS ORDERED: PRD10T PO (08:55)
[2019-11-11] MEDS ORDERED: AMOX-358 PO (08:56)
--- NOTE | 2019-11-11 09:00 | Discharge Summary ---
Diagnosis/Chief Complaint Date of Admission Nov 08, 2019 at 12:05 Date of Discharge Discharge Date: Nov 11, 2019 Admission Diagnosis Acute on Chronic Respiratory Failure Primary Care Judi Zepeda MD Discharge Summary Procedures/Consulations Dr Gray- Pulmonology Dr Carrion- Cardiology Discharge Physical Exam Allergies: Coded Allergies: budesonide (Verified Allergy, Severe, angioedema, 12/06/18) formoterol (Verified Allergy, Severe, angioedema, 12/06/18) tetanus toxoid, adsorbed (Verified Allergy, Mild, hives, 12/06/18) DOROTA Inhibitors (Verified Allergy, Unknown, Angioedema, 12/06/18) Vitals & I&Os Vital Signs Date Time Temp Pulse Resp B/P (MAP) Pulse Ox O2 Delivery O2 Flow Rate FiO2 11/11/19 10:21 93 High Flow N/C 3.50 11/11/19 08:00 36.7 91 20 149/81 (103) 11/09/19 12:00 55 General Appearance: No Apparent Distress, Chronically ill Respiratory: Lungs Clear, No Respiratory Distress Cardiovascular: Regular Rate, Rhythm, No Murmur Neurologic/Psychiatric: Alert, Oriented x3 Hospital Course Pt was admitted due to acute on chronic respiratory failure due to pneumonia. He was started on antibiotics and steroids. He developed some hemoptysis but declined a CT Chest at the time. He was told this needs to be done as an outpatient though. Hemoptysis resolved. He did have chest pain and cardiology was consulted. His symptoms improved and he was titrated back to his baseline oxygen level. He was discharged home ins table condition to follow up with his primary care doctor and Dr Gray. Labs (last 24 hrs) Laboratory Tests 11/10/19 15:21: Glucometer 151H 11/10/19 20:30: Glucometer 112H 11/11/19 05:30: White Blood Count 10.3, Red Blood Count 3.35L, Hemoglobin 9.7L, Hematocrit 33L, Mean Corpuscular Volume 98, Mean Corpuscular Hemoglobin 29, Mean Corpuscular Hemoglobin Concent 30L, Red Cell Distribution Width 14.0, Platelet Count 130, Mean Platelet Volume 10.5H, Neutrophils (%) (Auto) 82H, Lymphocytes (%) (Auto) 11L, Monocytes (%) (Auto) 7, Eosinophils (%) (Auto) 0, Basophils (%) (Auto) 0, Neutrophils # (Auto) 8.4H, Lymphocytes # (Auto) 1.1, Monocytes # (Auto) 0.7, Eosinophils # (Auto) 0.0, Basophils # (Auto) 0.0, Sodium Level 142, Potassium Level 4.0, Chloride Level 100, Carbon Dioxide Level 37H, Anion Gap 5, Blood Urea Nitrogen 23H, Creatinine 0.93, Estimat Glomerular Filtration Rate > 60, BUN/Creatinine Ratio 25, Glucose Level 90, Calcium Level 8.5, Phosphorus Level 3.5, Magnesium Level 2.1, Procalcitonin 0.26H 11/11/19 05:32: Glucometer 94 11/11/19 10:51: Glucometer 124H Microbiology 11/09/19 Influenza Types A,B Antigen (ROBERT) - Final, Complete 11/08/19 Urine Culture - Final, Complete 3 or more isolates 11/08/19 Blood Culture - Preliminary, Resulted No growth Patient resulted labs reviewed. Pending Labs Laboratory Tests 11/11/19 05:30: White Blood Count 10.3, Red Blood Count 3.35, Hemoglobin 9.7, Hematocrit 33, Mean Corpuscular Volume 98, Mean Corpuscular Hemoglobin 29, Mean Corpuscular Hemoglobin Concent 30, Red Cell Distribution Width 14.0, Platelet Count 130, Mean Platelet Volume 10.5, Neutrophils (%) (Auto) 82, Lymphocytes (%) (Auto) 11, Monocytes (%) (Auto) 7, Eosinophils (%) (Auto) 0, Basophils (%) (Auto) 0, Neutrophils # (Auto) 8.4, Lymphocytes # (Auto) 1.1, Monocytes # (Auto) 0.7, Eosinophils # (Auto) 0.0, Basophils # (Auto) 0.0, Sodium Level 142, Potassium Level 4.0, Chloride Level 100, Carbon Dioxide Level 37, Anion Gap 5, Blood Urea Nitrogen 23, Creatinine 0.93, Estimat Glomerular Filtration Rate > 60, BUN/Creatinine Ratio 25, Glucose Level 90, Calcium Level 8.5, Phosphorus Level 3.5, Magnesium Level 2.1, Procalcitonin 0.26 11/11/19 05:32: Glucometer 94 11/11/19 10:51: Glucometer 124 Imaging: Reviewed Imaging Report Discussion & Recommendations Discharge Planning: >30 minutes discharge planning Discharge Home Medications: Active Scripts Active Augmentin 875-125 Tablet (Amoxicillin/Potassium Clav) 1 Each Tablet 1 Each PO BID Prednisone 10 Mg Tab.ds.pk 10 Mg PO DAILY Take 6 tabs(60mg)daily,decrease by 1 tab(10mg)every other day. Prednisone 10 Mg Tab 10 Mg PO DAILY resume after completing prednisone taper Reported Sertraline HCl 100 Mg Tablet 200 Mg PO DAILY TAKES 2 (100MG) TABS DAILY Clopidogrel (Clopidogrel Bisulfate) 75 Mg Tablet 75 Mg PO DAILY Ventolin Hfa (Albuterol Sulfate) 1 Puff Puff 2 Puff IH PRN PRN Advair 250-50 Diskus (Fluticasone/Salmeterol) 1 Each Blst.w.dev 1 Each IH DAILY Singulair (Montelukast Sodium) 10 Mg Tablet 10 Mg PO DAILY Abilify (Aripiprazole) 30 Mg Tablet 30 Mg PO DAILY Atorvastatin Calcium 80 Mg Tablet 80 Mg PO DAILY Ranexa (Ranolazine) 1,000 Mg Tab.er.12h 1,000 Mg PO BID LAST FILLED 05-24-2019 #180/90 DAY SUPPLY Aspirin EC (Aspirin) 81 Mg Tablet.dr 81 Mg PO DAILY Mirtazapine 30 Mg Tablet 30 Mg PO HS Amlodipine Besylate 5 Mg Tablet 5 Mg PO DAILY Bupropion HCl 75 Mg Tablet 75 Mg PO DAILY Fish Oil 1,000 mg Capsule ([place] 3 Polyunsat Fatty Acids) 1,000 Mg Cap 1,000 Mg PO DAILY Albuterol Sulfate 2.5 Mg/3 Ml Vial.neb 2.5 Mg NEB TID Carvedilol 6.25 Mg Tablet 6.25 Mg PO BID LAST FILLED 05-24-2019 #180/90 DAY SUPPLY Nitrostat (Nitroglycerin) 0.4 Mg Tab.subl 0.4 Mg PO UD PRN Isosorbide Mononitrate ER (Isosorbide Mononitrate) 30 Mg Tab.er.24h 15 Mg PO DAILY TAKES 1/2 (30MG) TABLET Instructions to patient/family Please see electronic discharge instructions given to patient. Clinical Quality Measures DVT/VTE Risk/Contraindication: Risk Factor Score Per Nursin RFS Level Per Nursing on Admit: 4+=Very High JUAREZ TOLENTINO MD Nov 11, 2019 09:00
--- NOTE | 2019-11-11 09:02 | Physical Therapy Progress Note ---
Therapy Progress Note PT visited with patient and patient report he has all equipment at home and wears O2 prior to admit. Patient reports no concern. Patient dismissing to home on this date. 1 visit TOMAS LARIOS PT Nov 11, 2019 09:02
[2019-11-11] MEDS: MONTELUKAST 10 MG (SINGULAIR) TAB PO SCH (09:54)
[2019-11-11] MEDS: buPROPion 75 MG (WELLBUTRIN) TAB PO SCH (09:54)
[2019-11-11] MEDS: amLODIPine 5 MG (NORVASC) TAB PO SCH (09:54)
[2019-11-11] MEDS: ASPIRIN E.C. 81 MG (ECOTRIN) TAB PO SCH (09:54)
[2019-11-11] MEDS: CARVEDILOL 6.25 MG (COREG) TAB PO SCH (09:54)
[2019-11-11] MEDS: ISOSORBIDE MONONITRATE 30 MG (IMDUR) TAB PO SCH (09:54)
[2019-11-11] MEDS: CLOPIDOGREL 75 MG (PLAVIX) TABLET PO SCH (09:54)
[2019-11-11] MEDS: SERTRALINE 100 MG (ZOLOFT) TAB PO SCH (09:55)
[2019-11-11] MEDS: RANOLAZINE ER 500 MG TAB (RANEXA) PO SCH (09:55)
--- NOTE | 2019-11-11 11:10 | NUR ---
CM/SS follow up. The patient is being discharged back to home today 11/10. The patients son will be his transportation and will bring his portable oxygen tank. He reports his care with Me[facility] will resume this weekend and his will continue to provide daily care. No further interventions needed at this time.
[2019-11-11 12:09] VITALS: BP 149/81
--- NOTE | 2019-11-11 12:35 | Cardiology Progress Note ---
Subjective Date Seen by Provider: Nov 11, 2019 Time Seen by Provider: 09:00 Subjective/Events-last exam Patient was seen at bedside, sitting comfortably, breathing better, reporting improvement. Review of Systems General: No Chills, No Night Sweats, No Fatigue, No Malaise, No Appetite, No O ther HEENT: No Head Aches, No Visual Changes, No Eye Pain, No Ear Pain, No Dys phasia, No Sinus Congestion, No Post Nasal Drip, No Sore Throat, No Other Pulmonary: Dyspnea; No Cough, No Pleuritic Chest Pain, No Other Cardiovascular: No: Chest Pain, Palpitations, Orthopnea, Paroxysmal Noc. Dyspnea, Edema, Lt Headedness, Other Objective-Cardiology Exam Last Set of Vital Signs Vital Signs 11/09/19 11/11/19 11/11/19 12:00 08:00 10:21 Temp 36.7 Pulse 91 Resp 20 B/P (MAP) 149/81 (103) Pulse Ox 93 O2 Delivery High Flow N/C O2 Flow Rate 3.50 FiO2 55 Capillary Refill : Less Than 3 Seconds I&O Intake and Output 11/11/19 00:00 Intake Total 2252 ml Output Total 725 ml Balance 1527 ml Intake Oral 1132 ml IV Total 1120 ml Output Urine Total 725 ml # Voids 3 # Bowel Movements 3 General: Alert, Oriented X3, Cooperative HEENT: Atraumatic, PERRLA Neck: Supple, No JVD, No Thyromegaly Lungs: Normal Air Movement, Other (bilateral rhonchi, overall improving) Heart: Regular Rate, Normal S1, Normal S2, No Murmurs Abdomen: Normal Bowel Sounds, Soft, No Tenderness, No Hepatosplenomegaly, No Masses Extremities: No Clubbing, No Cyanosis, No Edema, Normal Pulses, No Tenderness/Swelling Skin: No Rashes, No Breakdown, No Significant Lesion Neuro: Normal Gait, Normal Speech, Strength at 5/5 X4 Ext, Normal Tone, Sensation Intact Psych/Mental Status: Mental Status NL, Mood NL Results Lab Laboratory Tests 11/11/19 05:30 A/P-Cardiology Admission Diagnosis Unstable angina Acute respiratory failure Coronary artery disease COPD Assessment/Plan Chest pain, has history of chronic chest pain chronic stable angina, resistant to multiple medication, multiple cardiac catheterization as described below. So far his cardiac enzymes are negative. Okay for discharge from cardiology standpoint. Follow up as an outpatient Shortness of breath, severe oxygen dependency with acute exacerbation of COPD. Slowly improving. Managed by primary care team Pneumonia, receiving antibiotic and managed by primary care team. Peripheral edema, maintained on Lasix, continue with diuretics and monitor. Coronary artery disease, last cardiac catheterization was done in September 2014 showing total occlusion of the LAD at its midportion with occluded vein graft to the LAD did not fill with collaterals on this study, patent stent in the proximal LAD to the diagonal artery, mild disease in the circumflex and right coronary artery, prominent left ventricle with EF 45 percent. Repeat cardiac catheterization was done in March 2018 showing total occlusion of the mid LAD and the vein graft to the LAD, patent stent in the proximal LAD that was providing flow to the first diagonal branch, mild disease in the circumflex artery and right coronary artery, the apex of the left ventricular still akinetic with ejection fraction 45-50 percent. Continue with medical therapy. History of congestive heart failure with left ventricular systolic dysfunction, last echocardiogram showed normal left ventricular systolic function with ejection fraction 55-65 percent with pulmonary hypertension PA pressure of 45 mmHg. resolved Peripheral arterial disease, history of stent to the left lower extremity, having pain in his lower extremity, seen and evaluated with heart and vascular care, had angiogram and balloon angioplasty with angioscore cutting balloon 5x40 mm to the left external iliac then stenting to the left external iliac artery with 6x50 Viabahn postdilated with a Brent balloon. Done by Dr. Jackson. Followed by heart and vascular care. Hypertension, restart home medication and monitor Hyperlipidemia, monitor lipids Tobaccoism, expressed that he has stopped smoking, encouraged to continue with smoking cessation Carotid stenosis, showing severe right carotid stenosis, 60-79 percent. Mild left carotid stenosis 1-39 percent. Followed and managed by heart and vascular care. Anxiety. Clinical Quality Measures DVT/VTE Risk/Contraindication: Risk Factor Score Per Nursin RFS Level Per Nursing on Admit: 4+=Very High JOSHUA CASTILLO MD Nov 11, 2019 12:35
[2019-11-11] MEDS ORDERED: RT-ALBUTEROL/IPRATROPIUM 3 ML (DUONEB) VIAL ONE (14:20)
== END 2019-11-11 12:10 | disposition home or self-care (01) | DRG 871 ==
LOC: EDUNIT# 09:08 → ER 09:09 → ICU 12:05 → 4TH 11-10 08:10
PROVIDERS: ADMIT Family Medicine; ATTEND Family Medicine
DX: A41.9 Sepsis, unspecified organism (principal); J96.20 Acute and chronic respiratory failure, unspecified whether with hypoxia or hypercapnia; J18.9 Pneumonia, unspecified organism; R04.2 Hemoptysis; I25.110 Atherosclerotic heart disease of native coronary artery with unstable angina pectoris; J44.1 Chronic obstructive pulmonary disease with (acute) exacerbation; J44.0 Chronic obstructive pulmonary disease with (acute) lower respiratory infection; R65.20 Severe sepsis without septic shock; I25.5 Ischemic cardiomyopathy; I11.0 Hypertensive heart disease with heart failure; I50.9 Heart failure, unspecified; I73.9 Peripheral vascular disease, unspecified; I25.2 Old myocardial infarction; K21.9 Gastro-esophageal reflux disease without esophagitis; I65.23 Occlusion and stenosis of bilateral carotid arteries; F31.9 Bipolar disorder, unspecified; F41.9 Anxiety disorder, unspecified; F20.9 Schizophrenia, unspecified; G47.9 Sleep disorder, unspecified; M19.91 Primary osteoarthritis, unspecified site; Z95.1 Presence of aortocoronary bypass graft; Z95.820 Peripheral vascular angioplasty status with implants and grafts; Z87.891 Personal history of nicotine dependence; Z95.5 Presence of coronary angioplasty implant and graft; Z79.02 Long term (current) use of antithrombotics/antiplatelets; Z99.81 Dependence on supplemental oxygen; Z86.718 Personal history of other venous thrombosis and embolism; Z86.79 Personal history of other diseases of the circulatory system; Z86.73 Personal history of transient ischemic attack (TIA), and cerebral infarction without residual deficits; Z87.11 Personal history of peptic ulcer disease
CPT/HCPCS: 36415; 71045; 80048; 80053; 81000; 82805; 82962; 83605; 83735; 83880; 84100; 84145; 84484; 85007; 85025; 85027; 85379; 85610; 85730; 87040; 87081; 87088; 87449; 87631; 87804; 87899; 93005; 94640

== ENCOUNTER 2020-01-23 19:40 | Emergency (ER) | payer MEDICARE, MEDICAID ==
[~2020-01-23] VITALS: Ht 177 cm; Wt 90.0 kg
[~2020-01-23 19:40] MED LIST changes: +AMOX-358 PO
--- OUTSIDE RECORDS SUMMARY | 2020-01-23 19:49 | XMS REPORT ---
Author Author [facility] [facility] [employer] Address [address] [place] [address] Care Team Providers Care Cobol Application Developer Name Role Phone SONYA FERNANDEZ Unavailable JOSHUA CASTILLO MD Unavailable Unavailable POWERS DO, OUMAR Unavailable Unavailable POWERS DO, OUMAR Unavailable Unavailable CATE HERRERA COMPRESSOR STATION ENGINEER Unavailable Unavailable HERBERT ALANIS MD Unavailable Unavailable [...] MARTIN GRULLON MD Unavailable Unavailable CATE HERRERA COMPRESSOR STATION ENGINEER Unavailable Unavailable JOELLE KIMBLE MD Unavailable Unavailable JOELLE KIMBLE MD Unavailable Unavailable SCOTT CRANE FAC, ALI FACP CCDS Unavailable Unavailabl XIMENA Cha DO M Unavailable Unavailable IRIS NELSON MD Unavailable Unavailable FRANCISCA , DEBBIE K Unavailable Unavailable RODAS, ADAIR-CRISS Unavailable Unavailable RODAS, ADAIR-CRISS Unavailable Unavailable RODAS, ADAIR-CRISS Unavailable Unavailable SONYA FERNANDEZ Unavailable Unavailable HORTENCIA LYNN MANAGER CABLE Unavailable Unavailable RAJAN CRANE, JUAREZ Chapin Unavailable Unavailable RAJAN CRANE, JUAREZ Chapin Unavailable Unavailable CATE HERRERA APRN Unavailable Unavailable SONYA FERNANDEZ Unavailable Unavailable SONYA FERNANDEZ Unavailable Unavailable MIRZA BORGES Unavailable LUMZOE COMMERCIAL TIRE SERVICE TECHNICIAN-C, CELSO R Unavailable Unavailable IOANA SAVAGE, IRIS R Unavailable Unavailable ANTOINETTE SANDHU MD Unavailable Unavailable SHRUTI READ, KAYCEE Rausch Unavailable Unavailable EZIO DO, JING M Unavailable Unavailable MITCHEL CRANE, MARTIN Jordan Unavailable Unavailable MITCHEL CRANE, MARTIN Jordan Unavailable Unavailable POWERS DO, OUMAR S Unavailable Unavailable POWERS DO, OUMAR S Unavailable Unavailable HORTENCIA ESTEVEZ Unavailable Unavailable ALEX CRANE, MITCHELL Chapin Unavailable Unavailable AILYN SAMPSON, MARGARITA L Unavailable Unavailable ZEKE CRANE, HERBERT M Unavailable Unavailable ZEKE CRANE, HERBERT M Unavailable Unavailable SCOTTY SAVAGE, YOUNG Jordan Unavailable Unavailab SONYA Rendon Unavailable Unavailable SONYA FERNANDEZ Unavailable Unavailable SONYA FERNANDEZ Unavailable Unavailable Migration, Doctor Unavailable Unavailable Unavailable Unavailable Unavailable Unavailable Unavailable Unavailable Unavailable Unavailable Allergies Allergy Reported Allergen(s) Allergy Type Date of Reaction(s) Care Facility Classificati Onset Provider on Angiotensin Angiotensin Converting Drug Allergy 05-06-2017 Angio edema OUMAR POWERS Not Converting Enzyme (Dorota) Inhibitors DO Svetlana ilable Enzyme (DOROTA) (12768) Inhibitors (21 sources) Budesonide / budesonide / formoterol Drug Allergy OTHER, MARK YA BROKOB Not formoterol MODERATE, Available (31 sources) UNKNOWN (41507) tetanus tetanus toxoid vaccine, Drug Allergy OTHER, JENISE BROKOB Not toxoid inactivated MODERATE Available vaccine, (60391) inactivated (21 sources) Unclassified tetanus toxoid, adsorbed DA 11-24-2008 gabriela CASTILLO Not (30 sources) Available (58895) Unclassified TETANUS-DIPHTHERIA UNKNOWN JENISE BROKOB Not (20 sources) TOXOIDS-TD Available (43244) NEGATED Angiotensin Converting Drug Allergy 05-08-2017 Angioed yelena CATE Not (1 source) Enzyme (Dorota) Inhibitors JAVIER Svetlana ilable (29757) Encounters Encounter Date Encounter Type Encounter Diagnosis Care Provider Facility Start: Patient encounter [facility] strict #1 12-27-2019 procedure of [facility] End: 12-27-2019 Start: Patient encounter SONYA [facility] strict #1 12-22-2019 procedure of [facility] End: 12-22-2019 Start: Patient encounter SONYA [facility] strict #1 12-22-2019 procedure of [facility] End: 12-22-2019 [facility] of [facility] End: 12-21-2019 [facility] 11-16-2019 procedure of [facility] End: 11-16-2019 Start: Evaluation and JUAREZ TOLENTINO MD [facility] Via [facility] 11-08-2019 management of [facility] inpatient End: 11-11-2019 Start: Patient encounter JUAREZ TOLENTINO MD [facility] Via [facility] 11-08-2019 procedure [facility] End: 11-11-2019 Start: Emergency department ANTOINETTE SANDHU MD [facility] Via [facility] 11-08-2019 patient visit [facility] Start: Patient encounter [facility] strict #1 06-29-2019 procedure of [facility] ([id number]) End: 06-29-2019 Start: Patient encounter [facility] strict #1 06-07-2019 procedure of [facility] ([id number]) End: 06-07-2019 Start: Patient encounter CATE HERRERA [facility] 05-31-2019 procedure [facility]: [facility] 04-27-2019 procedure of [facility] ([id number]) End: 04-27-2019 Start: Evaluation and JUAREZ TOLENTINO MD [facility] Via [facility] 04-16-2019 management of [facility] inpatient End: 04-18-2019 Start: Patient encounter JUAREZ TOLENTINO MD [facility] Via [facility] 04-16-2019 procedure [facility] ([id number]) End: 04-18-2019 Start: Emergency department DEBBIE ESPINOSA DO [facility] 04-16-2019 patient visit [facility] ([id number]) Start: Patient encounter [facility] strict #1 03-29-2019 procedure of [facility] ([id number]) End: 03-30-2019 Start: Patient encounter HORTENCIA LYNN [facility] Via [facility] 02-11-2019 [facility] ([id number]) Start: Patient encounter HORTENCIA SMAPSON [facility] 02-11-2019 [facility] Start: Patient encounter [facility] strict #1 01-13-2019 procedure of [facility] ([id number]) End: 01-14-2019 Start: Patient encounter [facility] strict #1 12-25-2018 procedure of [facility] ([id number]) End: 12-26-2018 Start: Patient encounter [facility] strict #1 12-25-2018 procedure of [facility] ([id number]) End: 12-26-2018 Start: Patient encounter [facility] strict #1 12-22-2018 procedure of [facility] ([id number]) End: 12-23-2018 Start: Patient encounter [facility] strict #1 12-16-2018 procedure of [facility] ([id number]) End: 12-17-2018 Start: Patient encounter [facility] strict #1 12-16-2018 procedure of [facility] ([id number]) End: 12-17-2018 Start: Patient encounter JOSHUA CASTILLO MD [facility] 12-12-2018 [facility] Start: Emergency department DEBBIE FRANCISCA DO [facility] 12-06-2018 patient visit [facility] ([id number]) End: 12-07-2018 Start: Patient encounter DEBBIE ESPINOSA DO [facility] Via [facility] is 12-06-2018 [facility] ([id number]) Start: Emergency department DEBBIE JOLLEYO DO [facility] 12-06-2018 patient visit [facility] End: 12-06-2018 Start: Patient encounter JOSHUA CASTILLO MD [facility] 11-20-2018 procedure [facility] ([id number]) End: 12-11-2018 Start: Patient encounter JOSHUA CASTILLO MD [facility] 11-20-2018 [facility] End: 12-10-2018 Start: Patient encounter CATE HERRERA [facility] Via [facility] 11-17-2018 procedure [facility] ([id number]) Start: Patient encounter CATE MATHIASER [facility] 11-17-2018 procedure [facility] Start: Patient encounter JOSHUA CASTILLO MD [facility] Via [facility] 11-11-2018 [facility] ([id number]) Start: Patient encounter CATE Mitzi JAVIER [facility] 11-09-2018 procedure [facility] Start: Patient encounter JOSHUA CASTILLO MD [facility] Via [facility] 11-06-2018 [facility] ([id number]) Start: Patient encounter JOSHUA CASTILLO MD [facility] 11-06-2018 [facility] End: 11-09-2018 Start: Patient encounter JOSHUA CASTILLO MD [facility] 11-04-2018 [facility] ([id number]) Start: Emergency department IRIS NELSON MD [facility] Via 10-30-2018 patient visit [facility] ([id number]) End: 10-30-2018 Start: Emergency department IRIS NELSON [facility] Via 10-30-2018 patient visit [facility] End: 10-30-2018 Start: Patient encounter JOSHUA CASTILLO MD [facility] 10-30-2018 [facility] ([id number]) Start: Patient encounter CATE HERRERA [facility] 10-23-2018 [facility] ([id number]) Start: Patient encounter CATE HERRERA [facility] 10-23-2018 [facility] Start: Patient encounter JOSHUA CASTILLO MD [facility] Via [facility] 10-02-2018 [facility] ([id number]) Start: Patient encounter JOSHUA CASTILLO MD Not Availa ble ([id number]) 09-23-2018 procedure Start: Patient encounter JOSHUA CASTILLO MD Not Availa ble ([id number]) 09-11-2018 procedure Start: Patient encounter [facility] strict #1 09-08-2018 procedure of [facility] ([id number]) End: 09-09-2018 Start: Patient encounter [facility] strict #1 09-03-2018 procedure [facility] ([id number]) End: 09-04-2018 Start: Patient encounter JOSHUA CASTILLO MD Not Availa ble ([id number]) 09-02-2018 procedure Start: Patient encounter JOSHUA CASTILLO MD Not Availa ble ([id number]) 08-28-2018 procedure Start: Patient encounter JOSHUA CASTILLO MD Not Availa ble ([id number]) 08-26-2018 procedure Start: Patient encounter [facility] strict #1 08-21-2018 procedure of [facility] ([id number]) End: 08-22-2018 Start: Emergency department IRIS NELSON MD N ot Available ([id number]) 08-20-2018 patient visit End: 08-20-2018 Start: Patient encounter KAYCEE BAHENA Not Availab le ([id number]) 08-20-2018 procedure Start: Emergency department KAYCEE BAHENA COMPRESSOR STATION ENGINEER [facility] 08-20-2018 patient visit [facility] End: 08-20-2018 Start: Patient encounter JOSHUA CASTILLO MD Not Availa ble ([id number]) 08-14-2018 procedure Start: Patient encounter JOSHUA CASTILLO MD [facility] 08-14-2018 procedure [facility] Start: Patient encounter JOSHUA CASTILLO MD Not Availa ble ([id number]) 08-12-2018 procedure Start: Patient encounter JOSHUA CASTILLO MD Not Availa ble ([id number]) 08-07-2018 procedure Start: Patient encounter [facility] strict #1 07-09-2018 procedure of [facility] ([id number]) End: 07-10-2018 Start: Patient encounter [facility] strict #1 07-03-2018 procedure of [facility] ([id number]) End: 07-04-2018 Start: Emergency department ANTOINETTE SANDHU MD Not Available ([id number]) 06-30-2018 patient visit End: 06-30-2018 Start: Patient encounter MARGARITA ROBERTSON Not Availab le ([id number]) 06-30-2018 procedure Start: Patient encounter [facility] strict #1 06-30-2018 procedure of [facility] ([id number]) End: 07-01-2018 Start: Emergency department MARGARITA ROBERTSON [facility] 06-30-2018 patient visit [facility] End: 06-30-2018 Start: Patient encounter JOSHUA CASTILLO MD Not Availa ble ([id number]) 06-24-2018 procedure End: 08-06-2018 Start: Patient encounter JOSHUA CASTILLO MD [facility] 06-24-2018 procedure [facility] End: 08-05-2018 Start: Patient encounter JOSHUA CASTILLO MD Not Availa ble ([id number]) 06-19-2018 procedure Start: Patient encounter JOSHUA CASTILLO MD Not Availa ble ([id number]) 06-17-2018 procedure Start: Patient encounter JOSHUA CASTILLO MD Not Availa ble ([id number]) 06-12-2018 procedure Start: Patient encounter JOSHUA CASTILLO MD Not Availa ble ([id number]) 06-05-2018 procedure Start: Patient encounter JOSHUA CASTILLO MD Not Availa ble ([id number]) 05-29-2018 procedure Start: Patient encounter JOSHUA CASTILLO MD Not Availa ble ([id number]) 05-27-2018 procedure Start: Patient encounter JOSHUA CASTILLO MD Not Availa ble ([id number]) 05-20-2018 procedure Start: Patient encounter JOSHUA CASTILLO MD Not Availa ble ([id number]) 05-13-2018 procedure Start: Patient encounter JOSHUA CASTILLO MD Not Availa ble ([id number]) 05-08-2018 procedure Start: Emergency department ANTOINETTE SANDHU MD Not Available ([id number]) 04-25-2018 patient visit End: 04-25-2018 Start: Patient encounter ANTOINETTE SANDHU MD Not Av ailable ([id number]) 04-25-2018 procedure Start: Emergency department ANTOINETTE SANDHU MD [facility] 04-25-2018 patient visit [facility] End: 04-25-2018 Start: Patient encounter [facility] strict #1 04-22-2018 procedure of [facility] ([id number]) End: 04-23-2018 NEGATED Patient encounter JOSHUA CASTILLO MD Not Availa ble ([id number]) Start: 03-18-2018 End: 03-18-2018 Start: Patient encounter JOSHUA CASTILLO MD [facility] 03-18-2018 procedure [facility] End: 03-18-2018 Start: Patient encounter [facility] strict #1 03-10-2018 procedure of [facility] ([id number]) End: 03-11-2018 Start: Patient encounter [facility] strict #1 03-05-2018 procedure of [facility] ([id number]) End: 03-06-2018 Start: Patient encounter [facility] strict #1 02-25-2018 procedure of [facility] ([id number]) End: 02-26-2018 Start: Evaluation and JUAREZ TOLENTINO MD Not Available ([id number]) 02-15-2018 management of inpatient End: 02-15-2018 Start: Patient encounter JUAREZ TOLENTINO MD Not Availa ble ([id number]) 02-15-2018 End: 02-15-2018 NEGATED Evaluation and Start: management of 02-14-2018 inpatient End: 02-15-2018 Start: Patient encounter 02-14-2018 End: 02-15-2018 Start: Emergency department ANTOINETTE SANDHU MD Not Available ([id number]) 02-14-2018 patient visit Start: Evaluation and JUAREZ TOLENTINO MD [facility] Via [facility] Emergency Department 02-14-2018 management of [facility] inpatient End: 02-15-2018 Start: Patient encounter 02-10-2018 Start: Patient encounter HORTENCIA Dhruv LYNN [facility] 02-10-2018 procedure [facility] Start: Patient encounter [facility] strict #1 01-16-2018 procedure of [facility] ([id number]) End: 01-17-2018 Start: Patient encounter [facility] Not Availab le ([id number]) 12-05-2017 End: 12-06-2017 Start: Patient encounter [facility] strict #1 12-02-2017 procedure of [facility] ([id number]) End: 12-03-2017 Start: Emergency department 11-15-2017 patient visit End: 11-15-2017 Start: Patient encounter NA NA Not Availab le ([id number]) 11-15-2017 Start: Emergency department ANTOINETTE SANDHU MD [facility] 11-15-2017 patient visit [facility] End: 11-15-2017 Start: Patient encounter [facility] strict #1 10-28-2017 procedure of [facility] ([id number]) End: 10-29-2017 Start: Patient encounter [facility] strict #1 10-22-2017 procedure of [facility] ([id number]) End: 10-23-2017 Start: Evaluation and 10-13-2017 management of inpatient End: 10-15-2017 Start: Patient encounter NA NA Not Availab le ([id number]) 10-13-2017 End: 10-15-2017 Start: Emergency department KRISTIN TIRADO Not Avai lable ([id number]) 10-13-2017 patient visit Start: Evaluation and MARTIN GRULLON MD [facility] Via [facility] 10-13-2017 management of [facility] inpatient End: 10-15-2017 Start: Patient encounter [facility] strict #1 10-07-2017 procedure of [facility] ([id number]) End: 10-08-2017 Start: Patient encounter [facility] strict #1 09-23-2017 procedure of [facility] ([id number]) End: 09-24-2017 Start: Patient encounter 09-16-2017 Start: Patient encounter CATE HERRERA [facility] 09-16-2017 procedure [facility] Start: Evaluation and 09-14-2017 management of inpatient End: 09-15-2017 Start: Patient encounter NA NA Not Availab le ([id number]) 09-14-2017 End: 09-15-2017 Start: Evaluation and NA NA Not Available ([id number]) 09-14-2017 management of inpatient End: 09-15-2017 NEGATED Emergency department DEBBIE ESPINOSA DO Not Avai lable ([id number]) Start: patient visit 09-14-2017 Start: Evaluation and JUAREZ OTLENTINO MD [facility] Via [facility] 09-14-2017 management of [facility] inpatient End: 09-15-2017 Start: Patient encounter NA NA Not Availab le ([id number]) 07-25-2017 End: 07-31-2017 Start: Emergency department MARTIN GRULLON MD Not Av ailable ([id number]) 07-25-2017 patient visit Start: Evaluation and OUMAR POWERS DO [facility] Via [facility] 07-25-2017 management of [facility] inpatient End: 07-31-2017 Start: Patient encounter [facility] strict #1 07-16-2017 procedure of [facility] ([id number]) End: 07-17-2017 Start: Patient encounter [facility] Di strict #1 06-25-2017 procedure of [facility] ([id number]) End: 06-26-2017 Start: Patient encounter 06-16-2017 Start: Patient encounter JOSHUA CASTILLO MD [facility] 06-16-2017 procedure [facility] NEGATED Patient encounter Start: 06-04-2017 Start: Patient encounter JOSHUA CASTILLO MD [facility] 06-04-2017 procedure [facility] Start: Patient encounter [facility] strict #1 05-20-2017 procedure [facility] ([id number]) End: 05-21-2017 NEGATED Evaluation and Start: management of 05-08-2017 inpatient End: 05-12-2017 Start: Patient encounter NA NA Not Availab le ([id number]) 05-08-2017 End: 05-12-2017 Start: Evaluation and OUMAR S POWERS DO [facility] is 05-08-2017 management of [facility] inpatient End: 05-12-2017 Start: Patient encounter NA NA Not Availab le ([id number]) 05-05-2017 End: 05-06-2017 Start: Evaluation and MARTIN GRULLON MD Not Availabl e ([id number]) 05-05-2017 management of inpatient End: 05-06-2017 Start: Emergency department IRIS NELSON MD N ot Available ([id number]) 05-05-2017 patient visit Start: Evaluation and MARTIN GRULLON MD [facility] Via [facility] 05-05-2017 management of [facility] inpatient End: 05-06-2017 NEGATED Evaluation and Start: management of 03-22-2017 inpatient End: 03-23-2017 Start: Patient encounter OUMAR POWERS DO Not Availa ble ([id number]) 03-22-2017 End: 03-23-2017 Start: Evaluation and OUMAR S POWERS DO [facility] is 03-22-2017 management of [facility] inpatient End: 03-23-2017 Start: Patient encounter CELSO FORD Not Availa ble ([id number]) 01-22-2017 Start: Patient encounter CELSO FORD [facility] 01-22-2017 procedure COMMERCIAL TIRE SERVICE TECHNICIAN-C [facility] Start: Patient encounter JENISE BRANTLEYAshley Not Availab le ([id number]) 01-10-2017 procedure End: 01-10-2017 Start: Evaluation and HERBERT ALANIS MD Not Avai lable ([id number]) 10-12-2016 management of inpatient End: 10-13-2016 Start: Patient encounter HERBERT ALANIS MD Not A vailable ([id number]) 10-12-2016 procedure End: 10-13-2016 Start: Emergency department IRIS NELSON MD N ot Available ([id number]) 10-12-2016 patient visit Start: Evaluation and HERBERT ALANIS [facility] Via [facility] 10-12-2016 management of [facility] inpatient End: 10-13-2016 Start: Patient encounter BRANDON RODAS Not Availab le ([id number]) 09-27-2016 procedure End: 09-28-2016 Start: Patient encounter CATE HERRERA Not Avail able ([id number]) 08-27-2016 Start: Patient encounter CATE HERRERA [facility] 08-27-2016 procedure [facility] Start: Patient encounter OUMAR POWERS DO Not Availa ble ([id number]) 07-24-2016 procedure End: 07-25-2016 Start: Evaluation and OUMAR POWERS DO Not Available ([id number]) 07-24-2016 management of inpatient End: 07-25-2016 Start: Emergency department MARTIN GRULLON MD Not Av ailable ([id number]) 07-24-2016 patient visit Start: Evaluation and OUMAR POWERS DO [facility] 07-24-2016 management of [facility] inpatient End: 07-25-2016 Start: Patient encounter JOSHAU CASTILLO MD Not Availa ble ([id number]) 04-16-2016 Start: Patient encounter JOSHUA CASTILLO MD [facility] 04-16-2016 [facility] Start: Patient encounter CATE HERRERA Not Avail able ([id number]) 04-04-2016 Start: Patient encounter CATE Mitzi JAVIER [facility] 04-04-2016 procedure [facility] Start: Patient encounter JOSHUA CASTILLO MD Not Availa ble ([id number]) 03-29-2016 procedure Start: Patient encounter JOSHUA CASTILLO MD [facility] 03-29-2016 [facility] Start: Patient encounter MITCHELL JOHNSON MD Not Avai lable ([id number]) 02-15-2016 End: 02-15-2016 Start: Patient encounter MITCHELL JOHNSON MD [facility] Vi [facility] 02-15-2016 [facility] End: 02-15-2016 Start: Patient encounter MITCHELL JOHNSON MD Not Avai lable ([id number]) 02-13-2016 End: 02-13-2016 Start: Patient encounter MITCHELL JOHNSON MD [facility] 02-13-2016 [facility] End: 02-13-2016 Start: Emergency department IRIS NELSON MD N ot Available ([id number]) 10-26-2015 patient visit End: 10-26-2015 Start: Emergency department IRIS NELSON [facility] 10-25-2015 patient visit [facility] End: 10-25-2015 Start: Patient encounter YOUNG Jordan [facility] Via [facility] 09-11-2015 [facility] Start: Patient encounter IRIS TRIPLETT HUSSEIN Not Availa ble ([id number]) 07-03-2015 End: 08-03-2015 Start: Patient encounter IRIS Martin SAVAGE [facility] 07-03-2015 [facility] End: 08-03-2015 Start: Patient encounter JING HOLGUIN DO Not Avail able ([id number]) 05-02-2015 Start: Patient encounter JING HOLGUIN DO [facility] 05-02-2015 [facility] Start: Emergency department DEBBIE ESPINOSA DO Not Avai lable ([id number]) 04-08-2015 patient visit End: 04-08-2015 Start: Emergency department DEBBIE ESPINOSA DO [facility] 04-08-2015 patient visit [facility] End: 04-08-2015 Start: Patient encounter CATE HERRERA Not Avail able ([id number]) 03-30-2015 Start: Patient encounter CATE HERRERA [facility] 03-30-2015 [facility] Start: Emergency department IRIS NELSON MD N ot Available ([id number]) 01-16-2015 patient visit End: 01-16-2015 Start: Emergency department IRIS NELSON [facility] 01-16-2015 patient visit [facility] End: 01-16-2015 Start: Patient encounter JOSHUA CASTILLO MD Not Availa ble ([id number]) 09-21-2014 End: 09-21-2014 Start: Patient encounter JOSHUA CASTILLO MD [facility] HOSPITAL [facility] 09-21-2014 [facility] End: 09-21-2014 Start: Patient encounter JOSHUA CASTILLO MD Not Availa ble ([id number]) 08-31-2014 Start: Patient encounter JOSHUA CASTILLO MD [facility] 08-31-2014 [facility] Start: Patient encounter JOSHUA CASTILLO MD Not Availa ble ([id number]) 08-18-2014 Start: Patient encounter JOSHUA CASTILLO MD [facility] 08-18-2014 [facility] Start: Patient encounter JOSHUA CASTILLO MD Not Availa ble ([id number]) 02-10-2014 Start: Patient encounter XIMENA QUINONES DO Not Availa ble ([id number]) 11-18-2013 Start: Patient encounter JOSHUA CASTILLO MD Not Availa ble ([id number]) 09-06-2013 Start: Patient encounter XIMENA QUINONES DO Not Availa ble ([id number]) 08-31-2013 End: 11-17-2013 Start: Patient encounter XIMENA QUINONES DO Not Availa ble ([id number]) 08-05-2013 End: 08-11-2013 Start: Evaluation and DALLIN LUCAS MD Not Availabl e ([id number]) 06-07-2013 management of inpatient End: 06-08-2013 Start: Patient encounter XIMENA QUINONES DO Not Availa ble ([id number]) 04-29-2013 Start: Patient encounter JOSHUA CASTILLO MD Not Availa ble ([id number]) 03-22-2013 Start: Patient encounter JOSHUA CASTILLO MD Not Availa ble ([id number]) 01-26-2013 End: 01-27-2013 Start: Patient encounter CORNELL ROBLES MD Not Avail able ([id number]) 09-02-2012 Start: Evaluation and VIVEK ALSTON MD Not Availab le ([id number]) 07-01-2012 management of inpatient End: 07-02-2012 Start: Evaluation and JOELLE KIMBLE MD Not Availab le ([id number]) 05-17-2012 management of inpatient End: 05-18-2012 Start: Patient encounter FRANCISCO GARCÍA Not Availab le ([id number]) 03-31-2012 procedure Start: Evaluation and YENNY GILL MD Not Available ([id number]) 12-06-2011 management of inpatient End: 12-07-2011 Start: Patient encounter JOSHUA CASTILLO MD Not Availa ble ([id number]) 11-27-2011 procedure Start: Patient encounter JENS CHAVEZ MD [facility] Not Svetlana ilable ([id number]) 10-23-2011 procedure End: 10-23-2011 Start: Patient encounter MITCHELL JOHNSON MD Not Avai lable ([id number]) 10-02-2011 procedure End: 10-02-2011 Start: Patient encounter MITCHELL JOHNSON MD Not Avai lable ([id number]) 09-30-2011 procedure Start: Patient encounter MITCHELL JOHNSON MD Not Avai lable ([id number]) 09-20-2011 procedure Start: Patient encounter CORNELL ROBLES MD Not Avail able ([id number]) 09-12-2011 procedure Start: Evaluation and JOSHUA CASTILLO MD Not Available ([id number]) 09-04-2011 management of inpatient End: 09-05-2011 Start: Evaluation and JENS CHAVEZ MD [facility] Not Availa ble ([id number]) 06-27-2011 management of inpatient End: 06-28-2011 Start: Patient encounter FRANCISCO MARIANO Not Availab le ([id number]) 06-05-2011 procedure NEGATED Patient encounter NA NA Not Availab le ([id number]) Encounter for other MITCHELL JOHNSON MD [facility] examination (11001) Pre-operative MITCHELL JOHNSON MD Not Available (0000 0) examination, unspecified Medical Equipment No Information Goals No Information Immunizations Immunizatio Immunization Notes Care Provider Facility n Date 07-31-2017 influenza virus NA NA Not Available ([id number]) vaccine, split virus (incl. purified surface antigen) 03-23-2017 influenza virus vaccine, split virus (incl. purified surface antigen) Interventions No Information Medications The data below is from unstructured sources Unknown Medications Unknown Medications No Known Medications No Known Medications Unknown Medications No Known Medications Payers Date Payer Normalized Payer Policy ID [place] MEDIC[place] Plan of Treatment No Information Problems Active Problems Problem Problem Date Last Documented Episodic/Chr Provider Classificati Recorded Date onic on Acute Acute bronchitis due to other 11-09-2019 Episodic OUMAR POWERS bronchitis specified organisms DO (15 sources) Acute Cerebral infarction, unspecified ; Chronic ADAIR-CRISS cerebrovascu Translations: [Cerebral artery RODAS lar disease occlusion, unspecified with (4 sources) cerebral infarction] Alcohol-rela Alcohol dependence, uncomplicated 11-09-2019 Drafter Geophysical chris CATE armand JAVIER disorders (25 sources) Allergic Allergy status to other drugs, 11-09-2019 Episodic ANTOINETTE reactions medicaments and biological PHOEBE CRANE (22 sources) substances status ; Transla tions: [Allergy status to serum and vaccine status] Anal and Rectal polyp 11-09-2019 Episodic MITCHELL anna JOHNSON MD conditions (12 sources) Anxiety Anxiety disorder, unspecified ; 11-09-2019 Chronic OUMAR POWERS disorders Translations: [Anxiety state, DO (20 sources) unspecified] Bacterial Other meningococcal infections ; 11-09-2019 Episod ic OUMAR OPWERS infection; Translations: [Meningococcal DO unspecified infection, unspecified] site (17 sources) Chronic Chronic obstructive pulmonary 11-09-2019 Chronic BASHAR JONATHAN obstructive disease with acute lower MD pulmonary respiratory infection ; disease and Translations: [Chronic obst ructive bronchiectas pulmonary disease with (acu te) is exacerbation] (24 sources) Coagulation Thrombocytopenia, unspecified 11-09-2019 Chronic Cathy CRANE hemorrhagic disorders (18 sources) Coma; Coma scale, eyes open, spontaneous, 11-09-2019 Epi sodic KAYCEE BAHENA stupor; and at arrival to emergency department COMPRESSOR STATION ENGINEER brain damage ; Translations: [Coma scale , best (20 sources) verbal response, oriented, at arrival to emergency department] Complication Coronary atherosclerosis of 11-09-2019 Chronic JOSHUA CASTILLO of device; autologous vein bypass graft ; implant or Translations: [Atherosclero sis of graft autologous vein coronary ar jose (23 sources) bypass graft(s) with unstab le angina pectoris] Complication Other complications due to other Episodic DALLIN of device; cardiac device, implant, and graft LANCE CRANE implant or graft (3 sources) Congestive Chronic systolic (congestive) heart 11-09-2019 Chr onic JOSE ELIASHANNAH NEGROJI heart failure ; Translations: [Heart MD failure; failure, unspecified] nonhypertens rashaad (24 sources) Coronary Atherosclerotic heart disease of 11-09-2019 Chroni c JOSHUA CASTILLO atherosclero [place] coronary artery without sis and angina pectoris ; Translati ons: other heart [Coronary atherosclerosis o f disease unspecified type of vessel, [place] (22 sources) or graft] Coronary Coronary atherosclerosis of [place] 11-09-2019 Epis odic JOSHUA CASTILLO atherosclero coronary artery ; Translations: MD sis and [Old myocardial infarction] other heart disease (28 sources) Coronary Ischemic cardiomyopathy ; JOSHUA CASTILLO RJI atherosclero Translations: [Presence of MD berrios and aortocoronary bypass graft] other heart disease (34 sources) Diabetes Diabetes mellitus without mention 11-09-2019 Chron ic [facility] JONATHAN mellitus of complication, type II or MD without unspecified type, not state d as complication uncontrolled (17 sources) Diabetes Other abnormal glucose Episodic KRIST ANGE mellitus DELLA CRANE without complication (3 sources) Disorders of Hyperlipidemia, unspecified ; 11-09-2019 Chronic BASHAR JONATHAN lipid Translations: [Mixed MD metabolism hyperlipidemia] (25 sources) Diverticulos Diverticulosis of large intestine 11-09-2019 Drafter Geophysical chris MITCHELL is and without perforation or abscess XAVI FLORES MD diverticulit without bleeding is (12 sources) Esophageal Gastro-esophageal reflux disease 11-09-2019 Chroni c OUMAR POWERS disorders without esophagitis DO (21 sources) Essential Unspecified essential hypertension 11-09-2019 Drafter Geophysical chris [facility] JONATHAN hypertension ; Translations: [Essential MD (20 sources) (primary) hypertension] External Fall on same level from slipping, 11-09-2019 Episo dic KAYCEE BAHENA cause codes: tripping and stumbling without COMPRESSOR STATION ENGINEER Fall subsequent striking against object, (10 sources) initial encounter Gastritis Gastritis, unspecified, without 11-09-2019 Episodi c MITCHELL and bleeding ; Translations: [Other LOBO IGNACIO MD duodenitis specified gastritis, withou t (26 sources) mention of hemorrhage] Gastroduoden Duodenal ulcer, unspecified as Chronic MITCHELL al ulcer acute or chronic, without ALEX Bartlett (except hemorrhage or perforation, without hemorrhage) mention of obstruction (1 source) Gastroduoden Personal history of peptic ulcer 11-09-2019 Episo dic MITCHELL al ulcer disease ALEX CRANE (except hemorrhage) (27 sources) Headache; Headache ; Translations: [Headache] 11-09-2019 Epi sodic ALI SCOTT including MD HAND migraine (14 sources) 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 11-09-2019 Drafter Geophysical chris BASHANNAH CASTILLO disorders and tricuspid valves (14 sources) Hemorrhoids Unspecified hemorrhoids 11-09-2019 Episodic XA VIER (12 sources) ALEX CRANE Hypertension Hypertensive heart disease with 11-09-2019 Chroni c HERBERT with heart failure ZEKE CRANE complication s and secondary hypertension (23 sources) Immunization Encounter for immunization ; 11-09-2019 Episodic JOELLE s and Translations: [Need for SCHOELING M D screening prophylactic vaccination an d for inoculation against influen za] infectious disease (22 sources) Malaise and Other fatigue 11-09-2019 Episodic JUAREZ TOLENTINO fatigue (14 sources) Meningitis Meningococcal meningitis 11-09-2019 Episodic R ODNEY (except that MITCHEL CRANE caused by tuberculosis or sexually transmitted disease) (13 sources) Miscellaneou Other somatoform disorders Chronic W EN-CRISS s mental RODAS health disorders (4 sources) Mood Depressive disorder, not elsewhere 11-09-2019 Drafter Geophysical chris JOELLE disorders classified ; Translations: [Major S CHOELING (22 sources) depressive disorder, single episode, unspecified] Mycoses Candidal stomatitis ; Translations: Episodic ADAIR-CRISS (8 sources) [Candidiasis of mouth] RODAS Nausea and Nausea alone Episodic DALLIN vomiting LANCE CRANE (3 sources) Nonspecific Other chest pain ; Translations: 11-09-2019 Episfantasma CASTILLO chest pain [Chest pain, unspecified] (21 sources) Occlusion or Occlusion and stenosis of carotid 11-09-2019 Drafter Geophysical chris BASHAR JONATHAN stenosis of artery without mention of cerebral MD precerebral infarction ; Translations: arteries [Occlusion and stenosis of (21 sources) unspecified carotid artery] Osteoarthrit Primary osteoarthritis, right 11-09-2019 Chronic ADAIR-CRISS is shoulder ; Translations: [Primary T ANG (37 sources) osteoarthritis, unspecified site] Other Long-term (current) use of other 11-09-2019 Episfantasma CHAVEZ aftercare medications [facility] (18 sources) Other Care involving other specified Episodic XIMENA QUINONES aftercare rehabilitation procedure DO (10 sources) Other termite technician (current) use of 11-09-2019 Episodic OUMAR POWERS aftercare antithrombotics/antiplatelets DO (21 sources) Other Other medical terminologist (current) drug 11-09-2019 Episodic OUMAR POWERS aftercare therapy DO (20 sources) Other jail (current) use of aspirin 11-09-2019 Epis odic ANTOINETTE aftercare PHOEBE CRANE (20 sources) Other termite technician (current) use of inhaled 11-09-2019 Epis odic ANTOINETTE aftercare steroids PHOEBE CRANE (27 sources) Other termite technician (current) use of systemic 11-09-2019 Epi sodic MARGARITA AILYN aftercare steroids (25 sources) Other Long-term (current) use of Episodic Perla PEREZAD aftercare antiplatelet/antithrombotic [facility] (4 sources) Other Long-term (current) use of aspirin Episodic JOSHUA CASTILLO aftercare (3 sources) Other and Benign neoplasm of transverse colon 11-09-2019 Epi kelli MEDRANO unspecrinku JOHNSON MD benign neoplasm (12 sources) Other and Personal history of colonic polyps 11-09-2019 Epis flo MEDRANO unspecified ALEX CRANE benign neoplasm (24 sources) Other Peripheral vascular angioplasty 11-09-2019 Chronic OUMAR POWERS circulatory status with implants and grafts DO disease (20 sources) Other Presence of other vascular implants 11-09-2019 Chr tammy SALAZAR circulatory and grafts MITCHEL CRANE disease (25 sources) Other Other specified peripheral vascular Chronic ADAIR-CRISS circulatory diseases RODAS disease (6 sources) Other Other specified peripheral vascular Chronic ADAIR-CRISS circulatory diseases RODAS disease (6 sources) Other Personal history of transient 11-09-2019 Episodic MARGARITA AILYN circulatory ischemic attack (TIA), and cerebral disease infarction without residual (21 sources) deficits Other Personal history of other diseases 11-09-2019 Epis flo TOLENTINO circulatory of the circulatory system disease (27 sources) Other Other shoulder lesions, right 11-09-2019 Episodic HORTENCIA LYNN connective shoulder MANAGER CABLE tissue disease (12 sources) Other Repeated falls 11-09-2019 Episodic OUMAR GARNE R connective DO tissue disease (15 sources) Other Disorders of bursae and tendons in Episodic ADAIR-CRISS connective shoulder region, unspecified RODAS tissue disease (3 sources) Other Unspecified rotator cuff tear or Episodic ADAIR-CRISS connective rupture of right shoulder, not RODAS tissue specified as traumatic disease (3 sources) Other Muscle wasting and atrophy, not Episodic ADAIR-CRISS connective elsewhere classified, right upper T ANG tissue arm disease (2 sources) Other Muscle weakness (generalized) Episodic ADAIR-CRISS connective RODAS tissue disease (6 sources) Other Muscle weakness (generalized) Episodic ADAIR-CRISS connective RODAS tissue disease (6 sources) Other Muscular wasting and disuse Episodic ADAIR-CRISS connective atrophy, not elsewhere classified T ANG tissue disease (2 sources) Other Incomplete rotator cuff tear or Episodic ADAIR-CRISS connective rupture of right shoulder, not ORDAS tissue specified as traumatic disease (4 sources) Other Partial tear of rotator cuff Episodic ADAIR-CRISS connective RODAS tissue disease (4 sources) Other Disorder of kidney and ureter, 11-09-2019 Episodic BASHAR JONATHAN diseases of unspecified MD kidney and ureters (14 sources) Other Personal history of other diseases 11-09-2019 Epis odic ANTOINETTE gastrointest of the digestive system PHOEBE CRANE inal disorders (27 sources) Other History of falling 11-09-2019 Episodic MARTIN injuries and ODGERS MD conditions due to external causes (25 sources) Other Angioneurotic edema, not elsewhere Episodic ADAIR-CRISS injuries and classified ROADS conditions due to external causes (1 source) Other liver Liver disease, unspecified 11-09-2019 Chronic CATE diseases JAVIER COMPRESSOR STATION ENGINEER (12 sources) Other lower Other respiratory abnormalities Episodic FRANCISCO respiratory MARIANO disease (5 sources) Other lower Hypoxemia 11-09-2019 Episodic CATE respiratory JAVIER disease (29 sources) Other lower Shortness of breath 11-09-2019 Episodic SHABBIR INE respiratory JAVIER disease (25 sources) Other lower Solitary pulmonary nodule 11-09-2019 Episodic CATE respiratory JAVIER COMPRESSOR STATION ENGINEER disease (29 sources) Other lower Wheezing 11-09-2019 Episodic CATE respiratory JAVIER COMPRESSOR STATION ENGINEER disease (29 sources) Other lower Pleurodynia 11-09-2019 Episodic MARTIN respiratory MITCHEL MD disease (20 sources) Other lower Cough Episodic CORNELL respiratory NDWU MD disease (11 sources) Other lower Personal history of pneumonia 11-09-2019 Episodic ANTOINETTE respiratory (recurrent) PHOEBE CRANE disease (23 sources) Other lower Other nonspecific abnormal finding 11-09-2019 Epis odic CATE respiratory of lung field JAVIER disease (25 sources) Other lower Shortness of breath Episodic CORNELL respiratory NDWU MD disease (19 sources) Other lower Cough Episodic ADAIR-CRISS respiratory RODAS disease (8 sources) Other lower Other disorders of lung 11-09-2019 Episodic CH RISTINE respiratory JAVIER disease (13 sources) Other lower Hypoxemia Episodic ADAIR-CRISS respiratory RODAS disease (8 sources) Other lower Hemoptysis 11-09-2019 Episodic JUAREZ RAJAN respiratory MD disease (27 sources) Other Chronic pain syndrome Chronic ALI PEREZ MMAD nervous MD FACC system disorders (1 source) Other Carpal tunnel syndrome Chronic ADAIR-C JAKI nervous RODAS system disorders (5 sources) Other Carpal tunnel syndrome, right upper Chronic ADAIR-CRISS nervous limb RODAS system disorders (4 sources) Other Carpal tunnel syndrome, left upper Chronic ADAIR-CRISS nervous limb RODAS system disorders (1 source) Other Anesthesia of skin 11-09-2019 Episodic MARTIN nervous MITCHEL CRANE system disorders (12 sources) Other Other abnormalities of gait and Episodic ADAIR-CRISS nervous mobility RODAS system disorders (7 sources) Other Osteophyte, vertebrae 11-09-2019 Chronic AARO N LYNN non-traumati c joint disorders (12 sources) Other Effusion, right foot 11-09-2019 Episodic TIMOT HY non-traumati PHOEBE culver joint disorders (12 sources) Other Pain in right ankle and joints of 11-09-2019 Episo dic ANTOINETTE non-traumati right foot PHOEBE culver joint disorders (12 sources) Other Pain in joint, shoulder region Episodic ADAIR-CRISS non-traumati RODAS c joint disorders (1 source) Other Pain in right shoulder Episodic ADAIR-C JAKI non-traumati RODAS c joint disorders (1 source) Other Disorders of magnesium metabolism Chronic VIVEK nutritional; ALECIA CRANE endocrine; and metabolic disorders (2 sources) Other Abnormal weight loss 11-09-2019 Episodic XAVIE R nutritional; ALEX CRANE endocrine; and metabolic disorders (24 sources) Other Encounter for screening for 11-09-2019 Episodic MITCHELL screening malignant neoplasm of colon ; ЕКАТЕРИНА ADEN MD for Translations: [Other nonspe cific suspected abnormal finding of lung fi eld] conditions (not mental disorders or infectious disease) (16 sources) Other upper Acute bronchospasm Episodic CORNELL respiratory MARGARET CRANE disease (3 sources) Other upper Hypertrophy of nasal turbinates Episodic ADAIR-CRISS respiratory RODAS disease (2 sources) Other upper Hypertrophy of nasal turbinates Episodic ADAIR-CRISS respiratory RODAS disease (2 sources) Other upper Other specified diseases of upper 11-09-2019 Episo dic MARTIN respiratory respiratory tract MITCHEL CRANE disease (10 sources) Other upper Acute sinusitis, unspecified ; Episodic ADAIR-CRISS respiratory Translations: [Acute sinusitis, MARK G infections unspecified] (6 sources) Peripheral Peripheral vascular disease, 11-09-2019 Chronic OUMAR POWERS and visceral unspecified ; Translations: DO atherosclero [Atherosclerosis of [place] arteries sis of extremities with intermi ttent (21 sources) claudication, left leg] Phlebitis; Personal history of other venous 11-09-2019 Episod ic HERBERT thrombophleb thrombosis and embolism ZEKE CRANE itis and thromboembol ism (24 sources) Pleurisy; Atelectasis 11-09-2019 Episodic JUAREZ RAJAN pneumothorax MD ; pulmonary collapse (17 sources) Pneumonia Pneumonia, unspecified organism ; 11-09-2019 Episo dic ADAIR-CRISS (except that Translations: [Lobar pneumonia, MARK G caused by unspecified organism] tuberculosis or sexually transmitted disease) (21 sources) Pulmonary Pulmonary hypertension, unspecified 11-09-2019 Chr onic MARTIN heart MITCHEL CRANE disease (20 sources) Residual Acquired absence of other organs 11-09-2019 Episod ic ANTOINETTE codes; PHOEBE CRANE unclassified (30 sources) Residual Family history of ischemic heart 11-09-2019 Episod ic ANTOINETTE codes; disease and other diseases of the S JENNY CRANE unclassified circulatory system (23 sources) Residual Other specified postprocedural 11-09-2019 Episodic PETER BAHENA codes; states COMPRESSOR STATION ENGINEER unclassified (23 sources) Residual Edema Episodic ADAIR-CRISS codes; RODAS unclassified (14 sources) Residual Localized edema Episodic ADAIR-CRISS codes; RODAS unclassified (14 sources) Residual Encounter for other specified 11-09-2019 Episodic BASHAR JONATHAN codes; prophylactic measures unclassified (12 sources) Residual Sleep disorder, unspecified 11-09-2019 Episodic MARTIN codes; MITCHEL CRANE unclassified (23 sources) Respiratory Acute and chronic respiratory 11-09-2019 Chronic BASHAR JONATHAN failure; failure with hypercapnia ; insufficienc Translations: [Dependence o n y; arrest supplemental oxygen] (adult) (21 sources) Schizophreni Schizophrenia, unspecified 11-09-2019 Chr onic a and other psychotic disorders (25 sources) Screening Personal history of tobacco use ; 11-09-2019 Episo dic BASHAR JONATHAN and history Translations: [Personal history of MD of mental nicotine dependence] health and substance abuse codes (22 sources) Septicemia Sepsis, unspecified organism ; 11-09-2019 Episodic JUAREZ RAJAN (except in Translations: [Severe sepsis MD labor) without septic shock] (33 sources) Skin and Cutaneous abscess of abdominal wall Episodic ADAIR-CRISS subcutaneous ; Translations: [Cellulitis and MARK G tissue abscess of trunk] infections (6 sources) Spondylosis; Other spondylosis with 11-09-2019 Chronic AA BJ LYNN intervertebr radiculopathy, cervical reg ion ; al disc Translations: [SPINAL STENO SIS, disorders; CERVICAL REGION] other back problems (13 sources) Spondylosis; Intervertebral disc disorders with 11-09-2019 Epi sodic DEBBIE FRANCISCA DO intervertebr radiculopathy, lumbosacral region ; al disc Translations: [Radiculopath y, disorders; lumbar region] other back problems (21 sources) Substance-re Nicotine dependence, cigarettes, 11-09-2019 Chron ic JOSHUA CASTILLO lated uncomplicated ; Translations: disorders [Tobacco use disorder] (21 sources) Unclassified Tobacco use ; Translations: 11-09-2019 Episodic CHRISTOPHER (29 sources) [Personal history of noncompliance DELLA CRANE with medical treatment, presenting hazards to health] Past or Other Problems Problem Problem Date Last Documented Episodic/Chr Provider Classificati Recorded Date onic on Abdominal Abdominal pain, right upper Episodic MITCHELL pain quadrant ALEX CRANE (2 sources) Adverse Other agents affecting blood MITCHELL effects of constituents causing adverse DAYNA Rossi MD medical effects in therapeutic use drugs (1 source) Coma; Coma scale, best motor response, PE TER BAHENA stupor; and obeys commands, at arrival to brain damage emergency department ; (9 sources) Translations: [Coma scale, best verbal response, oriented, at arrival to emergency department] Disorders of Pure hypercholesterolemia, lipid unspecified metabolism (20 sources) External Fall on same level from slipping, T AMERICA BROKOB cause codes: tripping and stumbling with Fall subsequent striking against other (7 sources) object, initial encounter ; Translations: [Fall resulting in striking against other object] Mood Major depressive disorder, single M SENTHIL POWERS disorders episode, unspecified DO (23 sources) Other Closed fracture of one rib Episodic T AMERICA BROKOB fractures (1 source) Other Fracture of one rib, left side, Episodic JENISE BROKOB fractures initial encounter for close d (1 source) fracture Other upper Other specified diseases of upper respiratory respiratory tract disease (2 sources) Residual Insomnia, unspecified Episodic JOELLE codes; SHYANNE CRANE unclassified (1 source) Residual Other specified postprocedural MARGARITA AILYN codes; states unclassified (8 sources) Residual Encounter for other specified BASHA R JONATHAN codes; prophylactic measures unclassified (2 sources) Unclassified Chest pain ADAIR-CRISS (2 sources) RODAS Unclassified Angioneurotic edema ADAIR-CRISS (1 source) RODAS NEGATED Pulmonary hypertension, unspecified OUMAR POWERS (23 sources) DO Procedures The data below is from unstructured sources No Known procedures No Known procedures No Known procedures Results Test Name Value Interpreta Reference Facilit Date tion Range y Time laboratory on 2019-12-22 Albumin BCG dye 3.9 Invalid 3.6-5.1 [facility]ospita [Mass/Vol] Interpreta g/dL l 020 tion Code Distric 04:25-0 t [address] [place] [address] () ALP [Catalytic 98 U/L Invalid 35-130 U[facility]L [facility] Interpreta l 020 tion Code Distric 04:25-0 t [address] [place] [address] () ALT [Catalytic 14 U/L Invalid 6-45 U/L [facility]osp[facility] activity/Vol] Interpreta l 020 tion Code Distric 04:25-0 t [address] [place] [address] ([id number]) Anion gap 12 mmol/L Invalid 6-14 Hospita 2 [Moles/Vol] Interpreta l 020 tion Code Distric 04:25-0 t [address] [place] [address] ([id number]) AST [Catalytic 13 U/L Invalid 2-40 U/L [facility]osp[facility] activity/Vol] Interpreta l 020 tion Code Distric 04:25-0 t [address] [place] [address] ([id number]) Basophils (Bld) 0.0 10*3/uL Invalid 0.0-0.2 [facility]ospita 12-21 [#/Vol] Interpreta K/uL l 020 tion Code Distric 04:25-0 t [address] [place] [address] ([id number]) Basophils/100 WBC 0.20 % Invalid 0.00-2.50 [facility]ospita 12-21 -2 (Bld) Interpreta % l 020 tion Code Distric 04:25-0 t [address] [place] [address] ([id number]) Bilirubin [Mass/Vol] 0.3 mg/dL Invalid 0.2-1.2 [facility]ospita Interpreta mg/dL l 020 tion Code Distric 04:25-0 t [address] [place] [address] () Calcium [Mass/Vol] 8.7 mg/dL Invalid 8.3-10.4 Hospita 12-07 5-2 Interpreta mg/dL l 020 tion Code Distric 04:25-0 t [address] [place] [address] () Chloride [Moles/Vol] 95 mmol/L Invalid 95-114 [facility]ospita Interpreta mmol/L l 020 tion Code Distric 04:25-0 t [address] [place] [address] () Cholesterol 181 mg/dL Invalid 100-240 [facility]osp[facility] [Mass/Vol] Interpreta mg/dL l 020 tion Code Distric 04:25-0 t [address] [place] [address] () Cholesterol in HDL 71 mg/dL Invalid 30-85 Hospita - 5-2 [Mass/Vol] Interpreta mg/dL l 020 tion Code Distric 04:25-0 t [address] [place] [address] () Cholesterol in LDL 98 mg/dL Invalid 0-100 [facility]ospita 5-2 [Mass/Vol] Interpreta mg/dL l 020 tion Code Distric 04:25-0 t [address] [place] [address] () Cholesterol in VLDL 12 mg/dL Invalid 0-42 mg/dL [facility] [Mass/Vol] Interpreta l 020 tion Code Distric 04:25-0 t [address] [place] [address] () Cholesterol.total/Ch 2.5 {ratio} Low 3.7-6.7 [facility] olesterol in HDL l 020 [Mass ratio] Distric 04:25-0 t [address] [place] [address] () Cobalamin (Vitamin 387.00 pg/mL Invalid 213.00-816 [facility] B12) [Mass/Vol] Interpreta .00 pg/mL l 020 tion Code Distric 04:25-0 t [address] [place] [address] () Creatinine 0.90 mg/dL Invalid 0.50-1.50 [facility] 07-15-2 [Mass/Vol] Interpreta mg/dL l 020 tion Code Distric 04:25-0 t [address] [place] [address] () Eosinophils (Bld) 0.1 10*3/uL Invalid 0.0-0.7 [facility]ospita [#/Vol] Interpreta K/uL l 020 tion Code Distric 04:25-0 t [address] [place] [address] () Eosinophils/100 WBC 1.1 % Invalid 0.0-7.0 % [facility]ospita (Bld) Interpreta l 020 tion Code Distric 04:25-0 t [address] [place] [address] () Erythrocyte 12.4 % Invalid 11.6-14.8 [facility]ospita distribution width Interpreta % l 020 (RBC) [Ratio] tion Code Distric 04:25-0 t [address] [place] [address] () Folate (Bld) 9.50 Invalid 7.00-31.40 [facility]osp[facility] [Mass/Vol] Interpreta ng/mL l 020 tion Code Distric 04:25-0 t [address] [place] [address] ([id number]) Free T4 [Mass/Vol] 0.83 ng/dL Invalid 0.81-1.61 [facility]osp[facility] Interpreta ng/dL l 020 tion Code Distric 04:25-0 t [address] [place] [address] ([id number]) GFR/1.73 sq 85 mL/min/{1.73_m2} Invalid >59 [facility]ospita 0 7-15-2 M.predicted MDRD Interpreta mL/min/1.7 l 020 (S/P/Bld) [Vol tion Code 3m2 Distric 04:25-0 rate/Area] t [address] [place] [address] () Globulin (S) 2.4 g/dL Invalid 2.3-3.5 [facility]ospita [Mass/Vol] Interpreta g/dL l 020 tion Code Distric 04:25-0 t [address] [place] [address] ([id number]) Glucose [Mass/Vol] 102 mg/dL Invalid 70-110 [facility]osp[facility] 07-1 5-2 Interpreta mg/dL l 020 tion Code Distric 04:25-0 t [address] [place] [address] () HCO3 (P) [Moles/Vol] 43 Critically 22-33 Hospita 0 -15-2 high mEq/L l 020 Distric 04:25-0 t [address] [place] [address] () Hematocrit (Bld) 37.5 % Low 42.0-52.0 [facility]ospita 12-21- 2 [Volume fraction] % l 020 Distric 04:25-0 t [address] [place] [address] () Hemoglobin (Bld) 10.9 g/dL Low 14.0-17.0 [facility]ospita 2 [Mass/Vol] g/dL l 020 Distric 04:25-0 t [address] [place] [address] () Iron [Mass/Vol] 72 ug/dL Invalid 70-200 [facility] Interpreta ug/dL l 020 tion Code Distric 04:25-0 t [address] [place] [address] () Iron binding 309 Invalid 273-456 [facility]ospita 2 capacity [Mass/Vol] Interpreta ug/dL l 020 tion Code Distric 04:25-0 t [address] [place] [address] () Iron/TIBC [Mass 23.32 Invalid 15.00-55.0 [facility] ratio] Interpreta 0 % l 020 tion Code Distric 04:25-0 t [address] [place] [address] () Lymphocytes (Bld) 1.70 10*3/uL Invalid 0.60-3.40 [facility]osp[facility] 2 [#/Vol] Interpreta K/uL l 020 tion Code Distric 04:25-0 t [address] [place] [address] () Lymphocytes/100 WBC 32.6 % Invalid 10.0-50.0 [facility] -2 (Bld) Interpreta % l 020 tion Code Distric 04:25-0 t [address] [place] [address] () MCH (RBC) [Entitic 30.2 pg Invalid 27.0-31.2 Hospita 07-1 5-2 mass] Interpreta pg l 020 tion Code Distric 04:25-0 t [address] [place] [address] () MCHC (RBC) 29.1 g/dL Low 32.0-36.0 [facility] [Mass/Vol] g/dL l 020 Distric 04:25-0 t [address] [place] [address] () MCV (RBC) [Entitic 103.9 fL High 80.0-97.0 [facility] 07- 5-2 vol] fL l 020 Distric 04:25-0 t [address] [place] [address] () Monocytes (Bld) 0.5 10*3/uL Invalid 0.0-0.9 [facility] 12-21 [#/Vol] Interpreta K/uL l 020 tion Code Distric 04:25-0 t [address] [place] [address] () Monocytes/100 WBC 10.3 % Invalid 0.0-12.0 % [facility] 12-07 (Bld) Interpreta l 020 tion Code Distric 04:25-0 t [address] [place] [address] () Neutrophils (Bld) 2.91 10*3/uL Invalid 2.00-6.90 [facility] [#/Vol] Interpreta K/uL l 020 tion Code Distric 04:25-0 t [address] [place] [address] () Neutrophils/100 WBC 55.8 % Invalid 37.0-80.0 [facility] (Bld) Interpreta % l 020 tion Code Distric 04:25-0 t [address] [place] [address] ([id number]) Osmolality Calc 300 High 280-295 [facility] [Osmolality] l 020 Distric 04:25-0 t [address] [place] [address] ([id number]) Platelet mean volume 10.9 fL High 7.4-10.0 [facility] (Bld) [Entitic vol] fL l 020 Distric 04:25-0 t [address] [place] [address] ([id number]) Platelets (Bld) 138 10*3/uL Low 150-400 [facility] 12-21 [#/Vol] K/uL l 020 Distric 04:25-0 t [address] [place] [address] ([id number]) Potassium 4.3 mmol/L Invalid 3.5-5.3 [facility] [Moles/Vol] Interpreta mmol/L l 020 tion Code Distric 04:25-0 t [address] [place] [address] () Protein [Mass/Vol] 6.3 g/dL Invalid 6.0-8.3 [facility]ospita 07-1 5-2 Interpreta g/dL l 020 tion Code Distric 04:25-0 t [address] [place] [address] () RBC (Bld) [#/Vol] 3.61 10*6/uL Low 4.20-5.40 Hospita - M/uL l 020 Distric 04:25-0 t [address] [place] [address] () Sodium [Moles/Vol] 146 mmol/L Invalid 134-148 Hospita Interpreta mmol/L l 020 tion Code Distric 04:25-0 [address] [place] [address] () Transferrin 247 Invalid 200-370 [facility] [Mass/Vol] Interpreta ug/dL l 020 tion Code Distric 04:25-0 t [address] [place] [address] () Triglyceride 61 mg/dL Invalid 35-160 [facility] [Mass/Vol] Interpreta mg/dL l 020 tion Code Distric 04:25-0 [address] [place] [address] () TSH Qn 2.38 Invalid 0.32-5.00 Hospita Interpreta mIU/mL l 020 tion Code Distric 04:25-0 t [address] [place] [address] () Urate [Mass/Vol] 4.5 mg/dL Invalid 2.6-7.2 Hospita Interpreta mg/dL l 020 tion Code Distric 04:25-0 t [address] [place] [address] () Urea nitrogen 8 mg/dL Invalid 5-25 mg/dL [facility]osp[facility] [Mass/Vol] Interpreta l 020 tion Code Distric 04:25-0 [address] [place] [address] () WBC (Bld) [#/Vol] 5.22 10*3/uL Invalid 5.00-10.00 Hospita 0 7-15-2 Interpreta K/uL l 020 tion Code Distric 04:25-0 t #1 of 400 [facility] ([id number]) not yet categorized on 2019-11-11 PROCALCITONIN (PCT) 0.26 High <0.10 PENDING -2 ng/mL LOCATIO Dewey GARCIA 01:30-0 ([id number]) 400 NAME: WINTER PIEDRA ~MED REC#: [id number] Invalid PENDING ~ ~PHYSICIAN: JOSHUA Byrne MD ~Subjective ~Date Seen by mikey GARCIA Provider: Nov 11, 2019 ~Time Seen by Provider: () 09:00 ~Subjective/Events-last exam ~Pat ient was seen at bedside, sitting comfortabl y, breathing better, reporting improvement . ~Review of Systems ~General: No Chills, No Night Sweats, No Fatigue, No Malaise, N o Appetite, No Other ~HEENT: No Head Ache s, No Visual Changes, No Eye Pain, No Ear Az n, No Dysphasia, No Sinus ~Congestion, No Pos t Nasal Drip, No Sore Throat, No Other ~Pulmonary: Dyspnea; No Cough, No Pleur itic Chest Pain, No Other ~Cardiovascular: N o: Chest Pain, Palpitations, Orthopnea, Paroxysmal Noc. Dyspnea, Edema, Lt ~Headedness, Other ~ ~Objective-Cardiol ogy ~Exam ~Last Set of Vital Signs ~ ~Vital Signs ~ ~ ~ 11/09/19 11/11/19 11/11/19 ~ ~ 12:00 08 :00 10:21 ~ ~Temp 36.7 ~ ~Pulse 91 ~ ~Resp 20 ~ ~B/P (MAP) 149/81 (103) ~ ~Pulse Ox 93 ~ ~O2 Delivery High Flow N/C ~ ~O2 Flow Rate 3.50 ~ ~FiO2 55 ~ ~Capillary Refill : Less Finesse n 3 Seconds ~I O ~ ~ ~ ~Intake and Output ~ ~ 11/11/19 ~ ~ 00:00 ~ ~Intake Total 2252 m l ~ ~Output Total 725 ml ~ ~Balance 1527 ml ~ ~ ~ ~Intake Oral 1132 ml ~ ~IV Total 1120 m l ~ ~Output Urine Total 725 ml ~ ~# Voids 3 ~ ~# Bowel Movements 3 ~ ~ ~General: Alert, Oriented X3, Cooperative ~HEENT: Atraum atic, PERRLA ~Neck: Supple, No JVD, No Thyrom egaly ~Lungs: Normal Air Movement, Other (vannessa ateral rhonchi, overall improving) ~Heart: Reg ular Rate, Normal S1, Normal S2, No Murmurs ~Abdomen: Normal Bowel Sounds, Soft, No Tenderness, No Hepatosplenomegaly, No M asses ~Extremities: No Clubbing, No Cyanosis, No Edema, Normal Pulses, No Tenderness/Swe lling ~Skin: No Rashes, No Breakdown, No Significant Lesion ~Neuro: Normal Gait, Normal Speech, Strength at 5/5 X4 Ext, Normal Tone, Sensation Intact ~Psych/Mental St atus: Mental Status NL, Mood NL ~ ~Results ~L ab ~Laboratory Tests ~11/11/19 05:30 ~ ~ ~ ~ ~A/P-Cardiology ~Admission Diagnosis ~Unstable angina ~Acute respiratory radha lure ~Coronary artery disease ~COPD ~ ~Assessment/Plan ~Chest pain, has histo ry of chronic chest pain chronic stable angin a, resistant to multiple medicatio~n, mult iple cardiac catheterization as described be low. So far his cardiac enzymes are negative . O~jose for discharge from cardiology standpoint. Follow up as an outpatient ~ ~Shortness of breath, severe oxygen dependency with acute exacerbation of C OPD. Slowly improving. ~Managed by primary c are team ~ ~Pneumonia, receiving antibiotic and managed by primary care team. ~ ~Periph eral edema, maintained on Lasix, continue wi diuretics and monitor. ~ ~Coronary chris ry disease, last cardiac catheterization w as done in September 2014 showing total occlus ion~of the LAD at its midportion with occluded vein graft to the LAD did not fill with collaterals on ~this study, patent sten t in the proximal LAD to the diagonal artery , mild disease in the circumflex ~and right co ronary artery, prominent left ventricle with E F 45 percent. Repeat cardiac ~catheterizatio n was done in March 2018 showing total occl usion of the mid LAD and the vein graft ~to t he LAD, patent stent in the proximal LAD t hat was providing flow to the first diagona l branch, ~mild disease in the circumflex artery and right coronary artery, the a pex of the left ventricular ~still akinetic wi th ejection fraction 45-50 percent. Contin ue with medical therapy. ~ ~History of congestive heart failure with left ventricular systolic dysfunction, last echocardiogram ~showed normal left ventricular systolic function with ejec tion fraction 55-65 percent with pulmonary~hypertension PA pressure of 4 5 mmHg. resolved ~ ~Peripheral arterial disease, history of stent to the left l ower extremity, having pain in his lower ~extremity, seen and evaluated with hea rt and vascular care, had angiogram and balloo n angioplasty ~with angioscore cutting ba jaelynon 5x40 mm to the left external iliac then stenting to the left ~external iliac ar jose with 6x50 Viabahn postdilated with a St erling balloon. Done by Dr. Jackson. ~Followed by heart and vascular care. ~ ~Hypertensio n, restart home medication and monitor ~ ~Hyperlipidemia, monitor lipids ~ ~Tobaccoism, expressed that he has stop ped smoking, encouraged to continue with sm oking cessation ~ ~Carotid stenosis, showing severe right carotid stenosis, 60-79 percent. Mild left carotid stenosis ~1-39 percent. Fo llowed and managed by heart and vascular care. ~ ~Anxiety. ~ ~Clinical Quality Measures ~DVT/VTE Risk/Contraindication: ~Risk F actor Score Per Nursin ~RFS Level Per Pamela sing on Admit: 4+=Very High ~ ~ ~ ~JOSE ELIAS CASTILLO MD Nov 11, 2019 12:35 ~ ~ ~<Created by Ashley CASTILLO MD> ~<Electronically signed by JOSHUA CASTILLO MD> 11/11/19 3771 ~ ~ NAME: WINTER PIEDRA ~MED REC#: [id number] Invalid PENDING ~ ~PHYSICIAN: XIMENA Harrington DO ~Subjective ~Time Seen by a mikey GARCIA Provider: 06:11 ~Subjective/Events-last exam (0000 0) ~No complications noted. ~ ~Sepsis Even t ~Evaluation ~Height, Weight, BMI ~Ashu t: 5'8.00" ~Weight: 174lbs. 0.0oz. 78.9250 73kg; 27.00 BMI ~Method:Stated ~ ~Focused Exa m ~Lactate Level ~11/08/19 09:21: Lactic Ac id Level 0.99 ~ ~Exam ~Exam ~ ~Vital Signs ~ ~ ~ Date Time Temp Pulse Resp B/P (MAP) Pul se Ox O2 Delivery O2 Flow Rate FiO2 ~ ~11/11/19 03:49 36.4 69 18 119/76 (90) 100 High Flow N/ C 4.00 ~ ~11/11/19 02:15 90 High Flow N/C 4.00 ~ ~11/11/19 01:00 65 ~ ~11/10/19 23:53 92 Hig h Flow N/C 4.00 ~ ~11/10/19 23:15 36.6 78 20 133 /78 (96) 99 High Flow N/C 4.00 ~ ~11/10/19 20 :05 High Flow N/C 3.00 ~ ~11/10/19 19:47 36.8 91 20 150/80 (103) 96 High Flow N/C 4.00 ~ ~ 19:04 94 High Flow N/C 4.00 ~ ~11/10/19 1 9:00 93 ~ ~11/10/19 15:55 36.9 95 20 150/79 (1 02) 92 High Flow N/C 4.00 ~ ~11/10/19 14:22 90 H igh Flow N/C 4.00 ~ ~11/10/19 13:04 97 ~ ~11/09 12:00 36.9 91 20 155/85 (108) 93 High F low N/C 3.00 ~ ~11/10/19 10:38 93 High Flow N /C 3.50 ~ ~11/10/19 08:10 37.2 89 20 158/81 (106) 95 High Flow N/C 3.00 ~ ~11/10/19 08:00 9 1 136/70 (92) 96 High Flow N/C 3.00 ~ ~11/10/19 07:46 High Flow N/C 3.00 ~ ~11/10/19 07:1 8 37.0 ~ ~11/10/19 07:14 99 ~ ~11/10/19 06:15 98 H igh Flow N/C 3.00 ~ ~11/10/19 06:12 96 High F low N/C 3.00 ~ ~ ~ ~ ~I O ~ ~ 11/11/19 ~ ~ 07 :00 ~ ~Intake Total 732 ml ~ ~Output Total 20 0 ml ~ ~Balance 532 ml ~ ~ ~Height Weight ~Hei ght: 5'8.00" ~Weight: 174lbs. 0.0oz. 78.9250 73kg; 27.00 BMI ~Method:Stated ~General Appea thuan: No Apparent Distress, Chronically ill ~ HEENT: PERRL/EOMI, Moist Mucous Membranes; No Scleral Icterus (L), No Scleral Icterus (R) ~Neck: Normal Inspection, Supple ~Respiratory: No Accessory Muscle Use, Decreased Breath Sounds, Wheezing, Othe r (on vapotherm) ~Cardiovascular: Regular Rat e, Rhythm, No Murmur ~Capillary Refill: Le ss Than 3 Seconds ~Extremity: No Calf Tenderness, Swelling (trace bilaterally ) ~Neurologic/Psychiatric: Alert, Oriente d x3, Normal Mood/Affect ~Skin: Normal Color, Warm/Dry ~ ~Results ~Lab ~Laboratory Te sts ~11/10/19 02:53 ~ ~ ~ ~ ~Assessment/Plan ~Assessment/Plan ~Acute on Chronic Respiratory Failure ~ -titrate oxygen d own ~Sepsis-with PNA ~ -Lawler cultures pendin g ~ -Check PCT ~ - Zosyn ~ -MRSA-- neg ~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 ~ Continue Zosyn ~ Continue Steroids ~ -D uoneb ~CAD s/p CABG ~PAD ~CHF with Ef 45% ~ L ast cath 03/2018 ~ Cardiology following ~ ~ HTN ~ Well controlled, trend ~ ~ ~ ~SAYDA QUINONES DO Nov 11, 2019 06:16 ~ ~ ~<Created by Miracle QUINONES DO> ~<Electronically signed by Miracle QUINONES DO> 11/22/19 1032 ~ ~ laboratory on 2019-11-11 Anion gap 5 mmol/L Negative 5-14 PENDING 2 [Moles/Vol] mmol/L LOCATIO 020 N [facility] 01:30-0 ([id number]) 400 Basophils (Bld) 0.0 10*3/uL Negative 0.0-0.1 PENDING 11-10 [#/Vol] 10*3/uL LOCATIO 020 N [facility] 01:30-0 ([id number]) 400 Basophils/100 WBC 0 % Negative 0-10 % PENDING 11-102 (Bld) LOCATIO 020 N [facility] 01:30-0 ([id number]) 400 Calcium [Mass/Vol] 8.5 mg/dL Negative 8.5-10.1 PENDING 06-0 4-2 mg/dL LOCATIO 020 N [facility] 01:30-0 ([id number]) 400 Chloride [Moles/Vol] 100 mmol/L Negative 98-107 PENDING 0 6-04-2 mmol/L LOCATIO 020 N [facility] 01:30-0 ([id number]) 400 CO2 [Moles/Vol] 37 mmol/L High 21-32 PENDING 06-04-2 mmol/L LOCATIO 020 N [facility] 01:30-0 ([id number]) 400 Creatinine 0.93 mg/dL Negative 0.60-1.30 PENDING -04-2 [Mass/Vol] mg/dL LOCATIO 020 N [facility] 01:30-0 ([id number]) 400 Creatinine and > Invalid PENDING 11-10-2 Glomerular Interpreta LOCATIO 020 filtration tion Code N [facility] 01:30-0 rate.predicted panel ([id number]) 400 - Serum, Plasma or Blood Eosinophils (Bld) 0.0 10*3/uL Negative 0.0-0.3 PENDING 04-2 [#/Vol] 10*3/uL LOCATIO 020 N [facility] 01:30-0 ([id number]) 400 Eosinophils/100 WBC 0 % Negative 0-10 % PENDING -2 (Bld) LOCATIO 020 N [facility] 01:30-0 ([id number]) 400 Erythrocyte 14.0 % Negative 10.0-14.5 PENDING 11-10-2 distribution width % LOCATIO 020 (RBC) [Ratio] N [facility] 01:30-0 ([id number]) 400 Glucose [Mass/Vol] 90 mg/dL Negative 70-105 PENDING 06-0 4-2 mg/dL LOCATIO 020 N [facility] 01:30-0 ([id number]) 400 Glucose [Mass/Vol] 94 mg/dL Negative 70-110 PENDING 06-0 4-2 mg/dL LOCATIO 020 N [facility] 01:32-0 ([id number]) 400 Glucose [Mass/Vol] 124 mg/dL High 70-110 PENDING 06-0 4-2 mg/dL LOCATIO 020 N [facility] 06:51-0 ([id number]) 400 Hematocrit (Bld) 33 % Low 40-54 % PENDING 11-10- 2 [Volume fraction] LOCATIO 020 N [facility] 01:30-0 ([id number]) 400 Hemoglobin (Bld) 9.7 g/dL Low 13.3-17.7 PENDING 11-10- 2 [Mass/Vol] g/dL [address] 01:30-0 ([id number]) 400 Lymphocytes (Bld) 1.1 10*3/uL Negative 1.0-4.0 PENDING 2 [#/Vol] 10*[address] 01:30-0 (12570) 400 Lymphocytes/100 WBC 11 % Low 12-44 % PENDING 2 (Bld) [address] 01:30-0 ([id number]) 400 Magnesium [Mass/Vol] 2.1 mg/dL Negative 1.6-2.4 PENDING -2 mg/dL [address] 01:30-0 ([id number]) 400 MCH (RBC) [Entitic 29 pg Negative 25-34 pg PENDING 06-0 4-2 mass] [address] 01:30-0 ([id number]) 400 MCHC (RBC) 30 g/dL Low 32-36 g/dL PENDING 2 [Mass/Vol] [address] 01:30-0 (89598) 400 MCV (RBC) [Entitic 98 Negative 80-99 PENDING 06-0 4-2 vol] [foz_us] [address] 01:30-0 (09514) 400 Monocytes (Bld) 0.7 10*3/uL Negative 0.0-1.0 PENDING 11-102 [#/Vol] 10*[address] 01:30-0 (42437) 400 Monocytes/100 WBC 7 % Negative 0-12 % PENDING 11-10 -2 (Bld) [address] 01:30-0 (34464) 400 Neutrophils (Bld) 8.4 10*3/uL High 1.8-7.8 PENDING 2 [#/Vol] 10*[address] 01:30-0 (12921) 400 Neutrophils/100 WBC 82 % High 42-75 % PENDING 09-08 (Bld) LOCATIO 020 N [facility] 01:30-0 ([id number]) 400 Phosphate [Mass/Vol] 3.5 mg/dL Negative 2.3-4.7 PENDING mg/dL LOCATIO 020 N [facility] 01:30-0 (43910) 400 Platelet mean volume 10.5 High 7.4-10.4 PENDING (Bld) [Entitic vol] [foz_us] LOCATIO 020 N S 01:30-0 ([id number]) 400 Platelets (Bld) 130 10*3/uL Negative 130-400 PENDING 11-10 [#/Vol] 10*3/uL LOCATIO 020 N S 01:30-0 (42441) 400 Potassium 4.0 mmol/L Negative 3.6-5.0 PENDING [Moles/Vol] mmol/L LOCATIO 020 N S 01:0 (88208) 400 RBC (Bld) [#/Vol] 3.35 10*6/uL Low 4.35-5.85 PENDING 10*6/uL LOCATIO 020 N S 01:30-0 (14128) 400 Sodium [Moles/Vol] 142 mmol/L Negative 135-145 PENDING 09-08 mmol/L LOCATIO 020 N S 01:30-0 (84332) 400 Urea nitrogen 23 mg/dL High 7-18 mg/dL PENDING [Mass/Vol] LOCATIO 020 N S 01:0 ([id number]) 400 Urea 25 mg/mg Invalid PENDING nitrogen/Creatinine Interpreta LOCATIO 020 [Mass ratio] tion Code N S 01:300 ([id number]) 400 WBC (Bld) [#/Vol] 10.3 10*3/uL Negative 4.3-11.0 PENDING 10*3/uL LOCATIO 020 N S 01:300 (04058) 400 not yet categorized on 2019-11-10 NAME: WINTER PIEDRA ~MED REC#: [id number] Invalid PENDING ~ ~PHYSICIAN: JUAREZ Valdes MD ~Subjective ~HPI/CC On tion Code N [facility] Admission ~Date Seen by Provider: Nov 10, 2019 (000 00) ~Time Seen by Provider: 08:04 ~Patient is a 63-year-old male with a past medical history of coronary artery dise ase ~status post failed CABG with resultant coronary stenting, artery disease, isch emic cardiomyopathy, ~hypertension, peripher al artery disease [facility]~shortness of breath. He states it started suddenly t his morning and yesterday he felt well. He was ~short of breath with chest pain across his chest. He took a nitro without any improvement. This ~prompted him to seek evaluation in the ER so he summoned an ambulance. He was given ASA x2 in the ~ambulance. On presentation he was foun d to have oxygen saturations of 74% on 6lpm. He was started on~an oxymask but did not tolerate it well. Intubation was consid ered but he was transitioned to ~Vapotherm a nd did well with this. He was admitted to the ICU for pneumonia. ~Subjective/Events-last exam ~Pt reports feeling better. No more georgina st pain. Breathing improved. Has some naus ea though. ~ ~Focused Exam ~Lactate Level ~11/08/19 09:21: Lactic Acid Level 0.99 ~ ~ ~Objective ~Exam ~Vital Signs ~ ~Vital Signs ~ ~ ~ Date Time Temp Pulse Resp B/P (MA P) Pulse Ox O2 Delivery O2 Flow Rate FiO2 ~ ~11/10/19 07:46 High Flow N/C 3.00 ~ ~11/09 07:18 37.0 ~ ~11/10/19 06:15 98 ~ ~11/10/19 06:00 87 28 139/83 (101) ~ ~11/09/19 12:00 55 ~ ~Capillary Refill : Less Than 3 Seconds ~General Appearance: No Apparent Distre ss, WD/WN, Chronically ill ~Respiratory: Krupa ngs Clear, No Accessory Muscle Use, No Respiratory Distress ~Cardiovascular: R egular Rate, Rhythm, No Murmur ~Gastrointestin al: Normal Bowel Sounds, Soft ~Extremity: N o Calf Tenderness, No Pedal Edema ~Neurologic/Psychiatric: Alert, Oriente d x3 ~ ~Results/Procedures ~Lab ~Laboratory Te sts ~11/10/19 02:53 ~ ~ ~Patient resulted lab s reviewed. ~Imaging: Reviewed Imaging Re port ~ ~Assessment/Plan ~Assessment and Plan ~ Assess Plan/Chief Complaint ~Acute on Chronic Respiratory Failure ~Sepsis- present on arrival ~Right lung pneumonia ~COPD ~ N ow on 3lpm HFNC (down from baseline 4lpm) ~ P ulm consulted, appreciate recs ~ MAT protoc ol ~ Continue Zosyn ~ Solu-Medrol stopped to day, will switch to prednisone ~ New hemopty sis overnight, CT Chest ordered but patient stated he was not able to tolerate CTs so ~declined it ~ Transfer to 4th floor ~ PT/OT ~ ~CAD s/p CABG ~PAD ~CHF with EF 45% ~ Last cath 03/2018 ~ Troponin negative ~ Card iology consulted, appreciate recs ~ ~HTN ~ Wel l controlled, trend ~ ~Depression and Bip olar ~ Continue home meds ~ ~Clinical Quality Measures ~DVT/VTE Risk/Contraindication : ~Risk Factor Score Per Nursin ~RFS Level Per Nursing on Admit: 4+=Very High ~ ~ ~ ~JUAREZ TOLENTINO MD Nov 10, 2019 08:10 ~ ~ ~<Created by JUAREZ TOLENTINO MD> ~<Electronically signed by JUAREZ BHARDWAJ MD> 11/10/19 0810 ~ ~ NAME: WINTER PIEDRA ~MED REC#: [id number] Invalid PENDING ~ ~PHYSICIAN: YOUNG Franco ~Subjective tion Code N KHS ~Date Seen by Provider: Nov 10, 2019 ~Time (08744) Seen by Provider: 10:52 ~Subjective/Events-last exam ~Patient i s sitting up in chair, reports some mild dyspnea. Denies any chest pain ~Review of Systems ~General: No Chills, No Night S weats; Fatigue; No Malaise, No Appetite, No Ot her ~HEENT: No Head Aches, No Visual Change s, No Eye Pain, No Ear Pain, No Dysphasia, No Sinus ~Congestion, No Post Nasal Drip, No Sor e Throat, No Other ~Pulmonary: Dyspnea, C ough; No Pleuritic Chest Pain, No Other ~Cardiovascular: Edema; No: Chest Pain, Palpitations, Orthopnea, Paroxysmal Noc . Dyspnea, Lt ~Headedness, Other ~ ~Focus ed Exam ~Lactate Level ~11/08/19 09:21: Lact ic Acid Level 0.99 ~ ~ ~Objective-Cardiolo gy ~Exam ~Last Set of Vital Signs ~ ~Vital Signs ~ ~ ~ 11/09/19 11/10/19 11/10/19 ~ ~ 12:00 08 :10 10:38 ~ ~Temp 37.2 ~ ~Pulse 89 ~ ~Resp 20 ~ ~B/P (MAP) 158/81 (106) ~ ~Pulse Ox 93 ~ ~O2 Delivery High Flow N/C ~ ~O2 Flow Rate 3.50 ~ ~FiO2 55 ~ ~Capillary Refill : Less Finesse n 3 Seconds ~I O ~ ~ ~ ~Intake and Output ~ ~ 11/10/19 ~ ~ 00:00 ~ ~Intake Total 2230 m l ~ ~Output Total 1735 ml ~ ~Balance 495 ml ~ ~ ~ ~Intake Oral 2110 ml ~ ~IV Total 120 ml ~ ~Output Urine Total 1735 ml ~ ~ ~Genera l: Alert, Oriented X3, Cooperative ~HEENT: Atraumatic, PERRLA ~Neck: Supple, No JV D, No Thyromegaly ~Lungs: Normal Air Movement , Other (bilateral wheezing) ~Heart: Regu lar Rate, Normal S1, Normal S2, No Murmurs ~Abdomen: Normal Bowel Sounds, Soft, No Tenderness, No Hepatosplenomegaly, No M asses ~Extremities: No Clubbing, No Cyanosis, No Edema, Normal Pulses, No Tenderness/Swe lling ~Skin: No Rashes, No Breakdown, No Significant Lesion ~Neuro: Normal Gait, Normal Speech, Strength at 5/5 X4 Ext, Normal Tone, Sensation Intact ~Psych/Mental St atus: Mental Status NL, Mood NL ~ ~Results ~L ab ~Laboratory Tests ~11/10/19 02:53 ~ ~ ~ ~ ~A/P-Cardiology ~Admission Diagnosis ~Unstable angina ~Acute respiratory radha lure ~Coronary artery disease ~COPD ~ ~Assessment/Plan ~Chest pain, has histo ry of chronic chest pain chronic stable angin a, resistant to multiple ~medication, mult iple cardiac catheterization as described be low. So far his cardiac enzymes are ~negativ e. Continue to monitor ~ ~Shortness of bob ath, severe oxygen dependency with acute exacerbation of COPD. Slowly improving. ~Managed by primary care team ~ ~Pneumo anita, receiving antibiotic and managed by [facility] care team. ~ ~Peripheral edema, maintai jono on Lasix, continue with diuretics and shasha tor. ~ ~Coronary artery disease, last cardiac catheterization was done in September 2014 showing total occlusion~of the LAD at i ts midportion with occluded vein graft to the LAD did not fill with collaterals on ~t his study, patent stent in the proximal LAD to the diagonal artery, mild disease in th e circumflex ~and right coronary artery, prominent left ventricle with EF 45 per cent. Repeat cardiac ~catheterization was don e in March 2018 showing total occlusion of the mid LAD and the vein graft ~to the LAD, patent stent in the proximal LAD that w as providing flow to the first diagonal br anch, ~mild disease in the circumflex artery and right coronary artery, the apex of the left ventricular ~still akinetic with ejecti on fraction 45-50 percent. Continue with m edical therapy. ~ ~History of congestive heart failure with left ventricular systolic dysfunction, last echocardiogram ~showe d normal left ventricular systolic functi on with ejection fraction 55-65 percent wi th pulmonary~hypertension PA pressure of 4 5 mmHg. resolved ~ ~Peripheral arterial disease, history of stent to the left l ower extremity, having pain in his lower ~extremity, seen and evaluated with hea rt and vascular care, had angiogram and balloo n angioplasty ~with angioscore cutting ba jaelynon 5x40 mm to the left external iliac then stenting to the left ~external iliac ar jose with 6x50 Viabahn postdilated with a St erling balloon. Done by Dr. Jackson. ~Followed by heart and vascular care. ~ ~Hypertensio n, restart home medication and monitor ~ ~Hyperlipidemia, monitor lipids ~ ~Tobaccoism, expressed that he has stop ped smoking, encouraged to continue with sm oking cessation ~ ~Carotid stenosis, showing severe right carotid stenosis, 60-79 percent. Mild left carotid stenosis ~1-39 percent. Fo llowed and managed by heart and vascular care. ~ ~Anxiety. ~ ~Patient was seen and evalu ated with [facility], examination performed, management plan was discussed, ~agree w ith the current scribed note, I made few ch anges to the note using Italic font ~Patient was seen at bedside, sitting comfortably, n o chest pain, reporting improvement in hi s ~dyspnea but breathing better today, on nasal cannula ~Lungs had bilateral rhonchi an d wheezing ~Responding well to treatment. Continue to monitor ~Monitor blood pres sure and lipids. ~No change from cardiology standpoint ~ ~Clinical Quality Measures ~DVT/VTE Risk/Contraindication: ~Risk F actor Score Per Nursin ~RFS Level Per Pamela sing on Admit: 4+=Very High ~ ~ ~ ~YOUNG FAJARDO Nov 09 10:53 ~JOSHUA CASTILLO MD Nov 10, 2019 11 :42 ~ ~ ~<Created by YOUNG SUAREZ ON PA> ~<Electronically signed by JOSHUA COUGHLIN MD> 11/10/19 164 ~ ~ ~<Electronically sign ed by JOSHUA CASTILLO MD> 11/10/19 1644 laboratory on 2019-11-10 Glucose [Mass/Vol] 118 mg/dL High 70-110 PENDING 06-0 3-2 mg/dL [facility] 020 [facility] 06:58-0 ([id number]) 400 Glucose [Mass/Vol] 151 mg/dL High 70-110 PENDING 06-0 3-2 mg/dL [facility] 020 N [facility] 11:21-0 ([id number]) 400 Glucose [Mass/Vol] 112 mg/dL High 70-110 PENDING 06-0 3-2 mg/dL [facility] 020 N [facility] 16:30-0 ([id number]) 400 not yet categorized on 2019-11-09 FLU RESULT Negative Invalid PENDING Interpreta [facility] 020 tion Code N [facility] 02:30-0 ([id number]) 400 INFLUENZA A PCR Not Detected Invalid Not PENDING -0 2-2 Interpreta Detected [facility] 020 tion Code N [facility] 02:30-0 ([id number]) 400 INFLUENZA B PCR Not Detected Invalid Not PENDING 2-2 Interpreta Detected [facility] 020 tion Code N [facility] 02:30-0 ([id number]) 400 METAPNEUMO PCR Not Detected Invalid Not PENDING 11-08 Interpreta Detected [facility] 020 tion Code N [facility] 02:30-0 ([id number]) 400 PARAINFLU 3 PCR Footnote Invalid Not PENDING Interpreta Detected LOC[facility] 020 tion Code N [place] 02:30-0 ([id number]) 400 RSV PCR Not Detected Invalid Not PENDING Interpreta Detected [facility] 020 tion Code N [place] 02:30-0 ([id number]) 400 NAME: WINTER PIEDRA ~MED REC#: [id number] Invalid PENDING ~ ~PHYSICIAN: JUAREZ Valdes MD ~Subjective ~HPI/CC On tion Code N KHEnid Admission ~Date Seen by Provider: Nov 09, 2019 (000 00) ~Time Seen by Provider: 08:52 ~Patient is a 63-year-old male with a past medical history of coronary artery dise ase ~status post failed CABG with resultant coronary stenting, artery disease, isch emic cardiomyopathy, ~hypertension, peripher al artery disease [facility] and~shortness of breath. He states it started suddenly t his morning and yesterday he felt well. He was ~short of breath with chest pain across his chest. He took a nitro without any improvement. This ~prompted him to seek evaluation in the ER so he summoned an ambulance. He was given ASA x2 in the ~ambulance. On presentation he was foun d to have oxygen saturations of 74% on 6lpm. He was started on~an oxymask but did not tolerate it well. Intubation was consid ered but he was transitioned to ~Vapotherm a nd did well with this. He was admitted to the ICU for pneumonia. ~Subjective/Events-last exam ~Pt reports feeling better. No more georgina st pain. Titrating down on oxygen. Had jonathan e bloody sputum this~AM. ~ ~Focused Exam ~Lactate Level ~11/08/19 09:21: Lactic Ac id Level 0.99 ~ ~ ~Objective ~Exam ~Vital Signs ~ ~Vital Signs ~ ~ ~ Date Time Temp Pul se Resp B/P (MAP) Pulse Ox O2 Delivery O2 Flow Rate FiO2 ~ ~11/09/19 08:00 Vapotherm 20. 00 ~ ~ 50.00 ~ ~11/09/19 07:17 97 50 ~ ~11/09/19 0 6:00 73 30 104/61 (75) ~ ~11/09/19 03:49 36.4 ~ ~Capillary Refill : Less Than 3 Seconds ~General Appearance: No Apparent Distre ss, Chronically ill ~Respiratory: No Access ory Muscle Use, Decreased Breath Sounds, Ot her (on vapotherm) ~Cardiovascular: Regular Rate, Rhythm, No Murmur ~Gastrointestinal: No rmal Bowel Sounds, Non Tender, Soft ~Neurologic/Psychiatric: Alert, Oriente d x3 ~ ~Results/Procedures ~Lab ~Laboratory Te sts ~11/08/19 09:17 ~ ~ ~11/09/19 03:04 ~ ~ ~Hussein geiger resulted labs reviewed. ~Imaging: Kami wed Imaging Report ~ ~Assessment/Plan ~Asse ssment and Plan ~Assess Plan/Chief Complaint ~ Acute on Chronic Respiratory Failure ~Sepsis- present on arrival ~Right lung pneumoni a ~COPD ~ On Vapotherm ~ Pulm consulted, appreciate recs ~ MAT protocol ~ Contin ue Zosyn ~ Continue Steroids ~ New hemopty sis overnight, CT Chest ordered ~ ~ ~CAD s/ p CABG ~PAD ~CHF with Ef 45% ~ Last cath 03/28 18 ~ Troponin negative ~ Cardiology consulte d, appreciate recs ~ ~HTN ~ Well controlle d, trend ~ ~Depression and Bipolar ~ Zachary nue home meds ~ ~Clinical Quality Measures ~DVT/VTE Risk/Contraindication: ~Risk F actor Score Per Nursin ~RFS Level Per Pamela sing on Admit: 4+=Very High ~ ~ ~ ~SAMANTHA TOLENTINO MD Nov 09, 2019 09:03 ~ ~ ~<Created by Julian TOLENTINO MD> ~<Electronically signed by Julian TOLENTINO MD> 11/09/19 0905 ~ ~ NAME: WINTER PIEDRA ~MED REC#: [id number] Invalid PENDING ~ ~PHYSICIAN: JOSHUA Byrne MD ~Subjective ~Date Seen by mikey GARCIA Provider: Nov 09, 2019 ~Time Seen by Provider: (000 00) 08:40 ~Subjective/Events-last exam ~Pat ient is breathing better, feeling better, st ill on Vapotherm ~Review of Systems ~General: No Chills, No Night Sweats; Fatigue; No Ma laise, No Appetite, No Other ~HEENT: No Head A ches, No Visual Changes, No Eye Pain, No Ear Pain, No Dysphasia, No Sinus Conge~stion, No Post Nasal Drip, No Sore Throat, No Other ~Pulmonary: Dyspnea; No Cough, No Pleur itic Chest Pain, No Other ~Cardiovascular: N o: Chest Pain, Palpitations, Orthopnea, Paroxysmal Noc. Dyspnea, Edema, Lt ~Headedness, Other ~ ~Focused Exam ~[place] Level ~11/08/19 09:21: Lactic Acid Level 0.99 ~ ~ ~Objective-Cardiology ~Exam ~Last Set of Vital Signs ~ ~Vital Signs ~ ~ ~ 11/09/19 11/09/19 11/09/19 11/09/19 ~ ~ 03:49 06:00 07 :17 08:00 ~ ~Temp 36.4 ~ ~Pulse 73 ~ ~Resp 30 ~ ~B/P (MAP) 104/61 (75) ~ ~Pulse Ox 97 ~ ~O2 Delivery Vapotherm ~ ~O2 Flow Rate 20.0 0 ~ ~ 50.00 ~ ~FiO2 50 ~ ~Capillary Refill : Less Than 3 Seconds ~I O ~ ~ ~ ~Intake and O utput ~ ~ 11/09/19 ~ ~ 00:00 ~ ~Intake Total 18 40 ml ~ ~Output Total 675 ml ~ ~Balance 1165 ml ~ ~ ~ ~Intake Oral 1620 ml ~ ~IV Total 220 ml ~ ~Output Urine Total 675 ml ~ ~Daily Richard ght Change No ~ ~ ~General: Alert, Oriented X3, Cooperative ~HEENT: Atraumatic, PERRLA ~Neck: Supple, No JVD, No Thyromegaly ~Lungs: Normal Air Movement, Other (bilateral wheezing ) ~Heart: Regular Rate, Normal S1, Normal S2, No Murmurs ~Abdomen: Normal Bowel Sound s, Soft, No Tenderness, No Hepatosplenomeg gracie, No Masses ~Extremities: No Clubbing, No Cyanosis, No Edema, Normal Pulses, No Tenderness/Swelling ~Skin: No Rashes, N o Breakdown, No Significant Lesion ~Neuro : Normal Gait, Normal Speech, Strength at 5/5 X4 Ext, Normal Tone, Sensation Intact ~Psych/Mental Status: Mental Status NL, Mood NL ~ ~Results ~Lab ~Laboratory Tests ~ 09:17 ~ ~ ~11/09/19 03:04 ~ ~ ~ ~ ~A/P-Cardiology ~Admission Diagnosis ~Unstable angina ~Acute respiratory radha lure ~Coronary artery disease ~COPD ~ ~Assessment/Plan ~Chest pain, has histo ry of chronic chest pain chronic stable carlos crump, resistant to multiple ~medication, mult iple cardiac catheterization as described be low. So far his cardiac enzymes are ~negativ e. Continue to monitor ~ ~Shortness of bob ath, severe oxygen dependency with acute exacerbation of COPD. slightly better b ut ~still on Vapotherm. Managed by primary care team ~ ~Pneumonia, receiving antibiotic and managed by primary care team. ~ ~Periph eral edema, maintained on Lasix, continue wi diuretics and monitor. ~ ~Coronary chris ry disease, last cardiac catheterization w as done in September 2014 showing total occlus ion~of the LAD at its midportion with occluded vein graft to the LAD did not fill with collaterals on ~this study, patent sten t in the proximal LAD to the diagonal artery , mild disease in the circumflex ~and right co ronary artery, prominent left ventricle with E F 45 percent. Repeat cardiac ~catheterizatio n was done in March 2018 showing total occl usion of the mid LAD and the vein graft ~to t he LAD, patent stent in the proximal LAD t hat was providing flow to the first diagona l branch, ~mild disease in the circumflex artery and right coronary artery, the a pex of the left ventricular ~still akinetic wi th ejection fraction 45-50 percent. Contin ue with medical therapy. ~ ~History of congestive heart failure with left ventricular systolic dysfunction, last echocardiogram ~showed normal left ventricular systolic function with ejec tion fraction 55-65 percent with pulmonary~hypertension PA pressure of 4 5 mmHg. resolved ~ ~Peripheral arterial disease, history of stent to the left l ower extremity, having pain in his lower ~extremity, seen and evaluated with hea rt and vascular care, had angiogram and balloo n angioplasty ~with angioscore cutting rico joseph 5x40 mm to the left external iliac then stenting to the left ~external iliac ar jose with 6x50 Viabahn postdilated with a St erling balloon. Done by Dr. Jackson. ~Followed by heart and vascular care. ~ ~Hypertensio n, restart home medication and monitor ~ ~Hyperlipidemia, monitor lipids ~ ~Tobaccoism, expressed that he has stop ped smoking, encouraged to continue with sm oking cessation ~ ~Carotid stenosis, showing severe right carotid stenosis, 60-79 percent. Mild left carotid stenosis ~1-39 percent. Fo llowed and managed by heart and vascular care. ~ ~Anxiety. ~ ~Clinical Quality Measures ~DVT/VTE Risk/Contraindication: ~Risk F actor Score Per Nursin ~RFS Level Per Pamela sing on Admit: 4+=Very High ~ ~ ~ ~JOSE ELIAS CASTILLO MD Nov 09, 2019 8:41 am ~ ~ ~<Created by JOSHUA CASTILLO MD> ~<Electronically sig jono by JOSHUA CASTILLO MD> 11/09/19 1252 ~ ~ laboratory on 2019-11-09 Adenovirus DNA Footnote Invalid Not PENDING RADHA+probe Ql (CSF) Interpreta Detected LOC[facility] 020 tion Code N S 02:30-0 ([id number]) 400 Anion gap 11 mmol/L Negative 5-14 PENDING [Moles/Vol] mmol/L [facility] 020 N [facility] 22:53-0 ([id number]) 400 Aripiprazole Footnote Invalid Not PENDING [Mass/Vol] Interpreta Detected [facility] 020 tion Code N S 02:30-0 ([id number]) 400 Basophils (Bld) 0.0 10*3/uL Negative 0.0-0.1 PENDING 11-08 [#/Vol] 10*3/uL [facility] 020 N [facility] 22:53-0 ([id number]) 400 Basophils/100 WBC 0 % Negative 0-10 % PENDING 11-082 (Bld) [facility] 020 N [facility] 22:53-0 ([id number]) 400 Calcium [Mass/Vol] 8.8 mg/dL Negative 8.5-10.1 PENDING 06-0 2-2 mg/dL [facility] 020 N [facility] 22:53-0 ([id number]) 400 Chloride [Moles/Vol] 96 mmol/L Low 98-107 PENDING -02-2 mmol/L [facility] 020 N [facility] 22:53-0 ([id number]) 400 CO2 [Moles/Vol] 35 mmol/L High 21-32 PENDING -02-2 mmol/L [facility] 020 N [facility] 22:53-0 ([id number]) 400 Creatinine 1.03 mg/dL Negative 0.60-1.30 PENDING 2 [Mass/Vol] mg/dL [facility] 020 [facility] 22:53-0 ([id number]) 400 Creatinine and > Invalid PENDING 2 Glomerular Interpreta LOC[facility] 020 filtration tion Code [facility] 22:53-0 rate.predicted panel ([id number]) 400 - Serum, Plasma or Blood Eosinophils (Bld) 0.0 10*3/uL Negative 0.0-0.3 PENDING 2 [#/Vol] 10*3/uL [facility] 020 [facility] 22:53-0 ([id number]) 400 Eosinophils/100 WBC 0 % Negative 0-10 % PENDING 07-11 (Bld) [facility] 020 [facility] 22:53-0 ([id number]) 400 Erythrocyte 13.3 % Negative 10.0-14.5 PENDING distribution width % [facility] 020 (RBC) [Ratio] [facility] 22:53-0 ([id number]) 400 Glucose [Mass/Vol] 130 mg/dL High 70-110 PENDING 06-0 2-2 mg/dL [facility] 020 [facility] 07:36-0 ([id number]) 400 Glucose [Mass/Vol] 127 mg/dL High 70-110 PENDING 06-0 2-2 mg/dL [facility] 020 [facility] 11:23-0 ([id number]) 400 Glucose [Mass/Vol] 137 mg/dL High 70-110 PENDING 06-0 2-2 mg/dL [facility] 020 [facility] 16:38-0 ([id number]) 400 Glucose [Mass/Vol] 226 mg/dL High 70-105 PENDING 06-0 2-2 mg/dL [facility] 020 [facility] 22:53-0 ([id number]) 400 Hematocrit (Bld) 33 % Low 40-54 % PENDING 2 [Volume fraction] [facility] 020 [facility] 22:53-0 ([id number]) 400 Hemoglobin (Bld) 10.0 g/dL Low 13.3-17.7 PENDING 02 2 [Mass/Vol] g/dL [facility] 020 [facility] 22:53-0 ([id number]) 400 L. pneumophila Ag Ql Negative Invalid PENDING 11-082 (U) Interpreta [facility] 020 tion Code N [facility] 02:30-0 ([id number]) 400 Lymphocytes (Bld) 0.5 10*3/uL Low 1.0-4.0 PENDING 2 [#/Vol] 10*3 [facility] 020 [facility] 22:53-0 (03053) 400 Lymphocytes/100 WBC 3 % Low 12-44 % PENDING 2 (Bld) [facility] 020 [facility] 22:53-0 ([id number]) 400 Magnesium [Mass/Vol] 1.9 mg/dL Negative 1.6-2.4 PENDING -2 mg/dL [facility] [address] [place] [address] 22:53-0 ([id number]) 400 MCH (RBC) [Entitic 30 pg Negative 25-34 pg PENDING 06-0 2-2 mass] [facility] 22:53-0 ([id number]) 400 MCHC (RBC) 31 g/dL Low 32-36 g/dL PENDING 2 [Mass/Vol] LOC[facility] 020 [facility] 22:53-0 (03451) 400 MCV (RBC) [Entitic 98 Negative 80-99 PENDING 06-0 2-2 vol] [foz_us] [facility] 020 [facility] 22:53-0 ([id number]) 400 Monocytes (Bld) 0.4 10*3/uL Negative 0.0-1.0 PENDING 11-082 [#/Vol] 10*3 [facility] 22:53-0 ([id number]) 400 Monocytes/100 WBC 3 % Negative 0-12 % PENDING 11-082 (Bld) [facility] 020 [facility] 22:53-0 ([id number]) 400 Natriuretic peptide 54.7 pg/mL Invalid <100.0 PENDING 2 B (Bld) [Mass/Vol] Interpreta pg/mL [facility] 020 tion Code N [facility] 22:53-0 ([id number]) 400 Neutrophils (Bld) 13.5 10*3/uL High 1.8-7.8 PENDING -2 [#/Vol] 10*3 [facility] 020 [facility] 22:53-0 ([id number]) 400 Neutrophils/100 WBC 94 % High 42-75 % PENDING 07-11 (Bld) [facility] 020 N [facility] 22:53-0 ([id number]) 400 Phosphate [Mass/Vol] 2.9 mg/dL Negative 2.3-4.7 PENDING mg/dL [facility] 020 N [facility] 22:53-0 ([id number]) 400 Platelet mean volume 10.5 High 7.4-10.4 PENDING (Bld) [Entitic vol] [foz_us] [facility] 020 N [facility] 22:53-0 ([id number]) 400 Platelets (Bld) 131 10*3/uL Negative 130-400 PENDING 11-08 [#/Vol] 10*3/uL [facility] 020 N [facility] 22:53-0 ([id number]) 400 Potassium 3.8 mmol/L Negative 3.6-5.0 PENDING [Moles/Vol] mmol/L [facility] 020 N [facility] 22:53-0 ([id number]) 400 RBC (Bld) [#/Vol] 3.34 10*6/uL Low 4.35-5.85 PENDING 10*6/uL [facility] 020 N [facility] 22:53-0 ([id number]) 400 S. pneumoniae Ag Ql Negative Invalid PENDING (Unsp spec) Interpreta [facility] 020 tion Code N [facility] 02:30-0 ([id number]) 400 Sodium [Moles/Vol] 142 mmol/L Negative 135-145 PENDING 07-11 mmol/L [facility] 020 N [facility] 22:53-0 ([id number]) 400 Urea nitrogen 21 mg/dL High 7-18 mg/dL PENDING [Mass/Vol] [facility] 020 N [facility] 22:53-0 (26973) 400 Urea 20 mg/mg Invalid PENDING nitrogen/Creatinine Interpreta [facility] 020 [Mass ratio] tion Code N [facility] 22:53-0 ([id number]) 400 WBC (Bld) [#/Vol] 14.4 10*3/uL High 4.3-11.0 PENDING 10*3/uL [facility] 020 N [facility] 22:53-0 ([id number]) 400 not yet categorized on 2019-11-08 Arterial patency YES-POS Invalid PENDING Wrist artery --pre Interpreta [facility] 020 arterial puncture tion Code N [facility] 05:46-0 ([id number]) 400 Arterial patency YES-POS Invalid PENDING Wrist artery --pre Interpreta [facility] 020 arterial puncture tion Code N [facility] 23:45-0 ([id number]) 400 Body site L RAD Invalid PENDING Interpreta [facility] 020 tion Code N [facility] 05:46-0 ([id number]) 400 Body site LEFT RADIAL Invalid PENDING Interpreta [facility] 020 tion Code N [facility] 23:45-0 ([id number]) 400 COLONY COUNT <10,000 Invalid PENDING Interpreta [facility] 020 tion Code N [facility] 07:02-0 ([id number]) 400 Inhaled oxygen flow 100% Invalid PENDING rate Interpreta [facility] 020 tion Code N [facility] 05:46-0 ([id number]) 400 Inhaled oxygen flow 55% Invalid PENDING rate Interpreta [facility] 020 tion Code N [facility] 23:45-0 ([id number]) 400 RAPID ID NO SUSCEPTIBILITY PERFORMED Invalid PENDING Interpreta [facility] 020 tion Code N [facility] 07:02-0 ([id number]) 400 SUSCEPTIBILITY Positive Invalid PENDING Interpreta [facility] 020 tion Code N [facility] 07:02-0 ([id number]) 400 Ventilation mode NO Invalid PENDING Ventilator Interpreta [facility] 020 tion Code N [facility] 05:46-0 ([id number]) 400 Ventilation mode NO Invalid PENDING Ventilator Interpreta [facility] 020 tion Code N [facility] 23:45-0 ([id number]) 400 laboratory on 2019-11-08 Albumin [Mass/Vol] 4.0 g/dL Negative 3.2-4.5 PENDING 06- 1-2 g/dL [facility] 020 N [facility] 05:17-0 ([id number]) 400 Anion gap 10 mmol/L Negative 5-14 PENDING 06-01-2 [Moles/Vol] mmol/L [facility] 020 N [facility] 05:17-0 ([id number]) 400 Anion gap 8 mmol/L Negative 5-14 PENDING [Moles/Vol] mmol/L [facility] 020 N [facility] 23:04-0 ([id number]) 400 aPTT Coag (PPP) 30 s Negative 24-35 s PENDING [Time] [facility] 020 N [facility] 06:04-0 ([id number]) 400 Bacteria identified NG Invalid PENDING Cx Nom (Bld) Interpreta [facility] 020 tion Code N [facility] 06:04-0 ([id number]) 400 Bacteria identified 3 OR MORE Invalid PENDING Cx Nom (U) Interpreta [facility] 020 tion Code N [facility] 07:02-0 ([id number]) 400 Bacteria LM Ql TRACE Invalid PENDING (Urine sed) Interpreta [facility] 020 tion Code N [facility] 07:02-0 ([id number]) 400 Band form 8 % Invalid % PENDING neutrophils/100 WBC Interpreta [facility] 020 (Bld) tion Code N [facility] 23:04-0 ([id number]) 400 Base excess Calc 22.0 mmol/L High -2.5-2.5 PENDING 06-0 1-2 (Bld) [Moles/Vol] mmol/L [facility] 020 [facility] 05:46-0 ([id number]) 400 Base excess Calc 20.3 mmol/L High -2.5-2.5 PENDING 06-0 1-2 (Bld) [Moles/Vol] mmol/L [facility] 020 [facility] 23:45-0 ([id number]) 400 Basophils (Bld) 0.0 10*3/uL Negative 0.0-0.1 PENDING 11-07 [#/Vol] 10*3/uL [facility] 020 [facility] 05:17-0 ([id number]) 400 Basophils (Bld) 0.0 10*3/uL Negative 0.0-0.1 PENDING 11-07 [#/Vol] 10*3/uL [facility] 020 [facility] 23:04-0 ([id number]) 400 Basophils/100 WBC 0 % Negative 0-10 % PENDING 11-07 (Bld) LOC[facility] 020 [facility] 05:17-0 ([id number]) 400 Basophils/100 WBC 0 % Negative 0-10 % PENDING 11-072 (Bld) [facility] 020 [facility] 23:04-0 ([id number]) 400 Bilirubin [Mass/Vol] 0.4 mg/dL Negative 0.1-1.0 PENDING -2 mg/dL [facility] 020 [facility] 05:17-0 ([id number]) 400 Bilirubin Ql (U) 1+ Abnormal NEGATIVE PENDING LOCATIO 020 [facility] 07:02-0 ([id number]) 400 Calcium [Mass/Vol] 9.5 mg/dL Negative 8.5-10.1 PENDING 06-0 1-2 mg/dL LOC[facility]IO 020 [facility] 05:17-0 ([id number]) 400 Calcium [Mass/Vol] 9.2 mg/dL Negative 8.5-10.1 PENDING 06-0 1-2 mg/dL LOC[facility]IO 020 [facility] 23:04-0 ([id number]) 400 Casts LM Ql (Urine NONE Invalid PENDING sed) Interpreta LOC[facility] 020 tion Code N [facility] 07:02-0 ([id number]) 400 Chloride [Moles/Vol] 92 mmol/L Low 98-107 PENDING -2 mmol/L [facility] 020 [facility] 05:17-0 ([id number]) 400 Chloride [Moles/Vol] 92 mmol/L Low 98-107 PENDING -2 mmol/L [facility] 020 [facility] 23:04-0 ([id number]) 400 Clarity (U) SL CLOUDY Invalid PENDING Interpreta [facility] 020 tion Code N [facility] 07:02-0 ([id number]) 400 CO2 (Bld) [Partial 75 mm[Hg] Critically 35-45 PENDING 2 pressure] high mm[Hg] [facility] 020 [facility] 05:46-0 ([id number]) 400 CO2 (Bld) [Partial 71 mm[Hg] Critically 35-45 PENDING 06-10 pressure] high mm[Hg] LOCATIO 020 [facility] 23:45-0 ([id number]) 400 CO2 [Moles/Vol] 43 mmol/L High 21-32 PENDING 11-07-2 mmol/L LOC[facility]IO 020 [facility] 05:17-0 ([id number]) 400 CO2 [Moles/Vol] 50.8 mmol/L High 21.0-31.0 PENDING - -2 mmol/L LOC[facility]IO 020 [facility] 05:46-0 ([id number]) 400 CO2 [Moles/Vol] 42 mmol/L High 21-32 PENDING 11-07-2 mmol/L LOC[facility]IO 020 [facility] 23:04-0 (76753) 400 CO2 [Moles/Vol] 48.5 mmol/L High 21.0-31.0 PENDING - -2 mmol/L LOC[facility] 020 [facility] 23:45-0 ([id number]) 400 Color (U) YELLOW Invalid PENDING Interpreta LOC[facility] 020 tion Code [facility] 07:02-0 ([id number]) 400 Creatinine 0.96 mg/dL Negative 0.60-1.30 PENDING [Mass/Vol] mg/dL LOC[facility] 020 [facility] 23:04-0 ([id number]) 400 Creatinine and > Invalid PENDING Glomerular Interpreta LOC[facility] 020 filtration tion Code [facility] 23:04-0 rate.predicted panel ([id number]) 400 - Serum, Plasma or Blood Crystals LM Ql NONE Invalid PENDING (Urine sed) Interpreta LOCATIO 020 tion Code [facility] 07:02-0 ([id number]) 400 Eosinophils (Bld) 0.1 10*3/uL Negative 0.0-0.3 PENDING 06-10 [#/Vol] 10*3/uL LOCATIO 020 [facility] 05:17-0 ([id number]) 400 Eosinophils (Bld) 0.0 10*3/uL Negative 0.0-0.3 PENDING 06-10 [#/Vol] 10*3/uL LOCATIO 020 [facility] 23:04-0 ([id number]) 400 Eosinophils/100 WBC 0 % Negative 0-10 % PENDING 2 (Bld) LOCATIO 020 [facility] 05:17-0 ([id number]) 400 Eosinophils/100 WBC 0 % Negative 0-10 % PENDING 06-10 (Bld) LOCATIO 020 [facility] 23:04-0 ([id number]) 400 Erythrocyte 13.0 % Negative 10.0-14.5 PENDING distribution width % LOCATIO 020 (RBC) [Ratio] N [facility] [facility] 05:17-0 ([id number]) 400 Erythrocyte 12.8 % Negative 10.0-14.5 PENDING distribution width % LOCATIO 020 (RBC) [Ratio] N [facility] 23:04-0 ([id number]) 400 Fibrin D-dimer FEU 0.69 High 0.00-0.49 PENDING 06-0 1-2 (PPP) [Mass/Vol] ug/mL LOCATIO 020 N [facility] 23:04-0 ([id number]) 400 Glucose [Mass/Vol] 117 mg/dL High 70-105 PENDING 06-0 1-2 mg/dL LOCATIO 020 [facility] 05:17-0 ([id number]) 400 Glucose [Mass/Vol] 230 mg/dL High 70-110 PENDING 06-0 1-2 mg/dL LOCATIO 020 [facility] 12:46-0 ([id number]) 400 Glucose [Mass/Vol] 298 mg/dL High 70-110 PENDING 06-0 1-2 mg/dL LOCATIO 020 [facility] 16:32-0 ([id number]) 400 Glucose [Mass/Vol] 147 mg/dL High 70-105 PENDING 06-0 1-2 mg/dL LOCATIO 020 [facility] 23:04-0 ([id number]) 400 Glucose Auto test Negative Invalid NEGATIVE PENDING 11-07 strip Ql (U) Interpreta LOCATIO 020 tion Code N [facility] 07:02-0 ([id number]) 400 HCO3 (Bld) 48 mmol/L Critically 23-27 PENDING 2 [Moles/Vol] high mmol/L LOCATIO 020 [facility] 05:46-0 ([id number]) 400 HCO3 (Bld) 46 mmol/L Critically 23-27 PENDING [Moles/Vol] high mmol/L LOCATIO 020 [facility] 23:45-0 ([id number]) 400 Hematocrit (Bld) 39 % Low 40-54 % PENDING 06-01- 2 [Volume fraction] LOCATIO 020 [facility] 05:17-0 ([id number]) 400 Hematocrit (Bld) 35 % Low 40-54 % PENDING 2 [Volume fraction] LOCATIO 020 [facility] 23:04-0 ([id number]) 400 Hemoglobin (Bld) 11.4 g/dL Low 13.3-17.7 PENDING 11-07- 2 [Mass/Vol] g/dL LOCATIO 020 [facility] 05:17-0 ([id number]) 400 Hemoglobin (Bld) 10.4 g/dL Low 13.3-17.7 PENDING 2 [Mass/Vol] g/dL LOCATIO 020 [facility] 23:04-0 ([id number]) 400 INR Coag (Platelet 0.9 Negative 0.8-1.4 PENDING 1-2 poor plasma or LOCATIO 020 blood) [Relative [facility] 06:04-0 time] ([id number]) 400 Ketones Auto test TRACE Abnormal NEGATIVE PENDING 11-072 strip Ql (U) LOCATIO 020 [facility] 07:02-0 ([id number]) 400 Lactate [Moles/Vol] 0.99 mmol/L Negative 0.50-2.00 PENDING 0 11-07-2 mmol/L LOCATIO 020 [facility] 05:21-0 ([id number]) 400 Leukocyte esterase Negative Invalid NEGATIVE PENDING 1-2 Test strip Ql (U) Interpreta LOCATIO 020 tion Code [facility] 07:02-0 ([id number]) 400 Lymphocytes (Bld) 2.5 10*3/uL Negative 1.0-4.0 PENDING 2 [#/Vol] 10*3 LOCATIO 020 [facility] 05:17-0 ([id number]) 400 Lymphocytes (Bld) 0.6 10*3/uL Low 1.0-4.0 PENDING 06-10 [#/Vol] 10*3 LOCATIO 020 [facility] 23:04-0 ([id number]) 400 Lymphocytes/100 WBC 19 % Negative 12-44 % PENDING 2 (Bld) LOCATIO 020 [facility] 05:17-0 ([id number]) 400 Lymphocytes/100 WBC 4 % Low 12-44 % PENDING 2 (Bld) LOCATIO 020 [facility] 23:04-0 ([id number]) 400 Lymphocytes/100 WBC 1 % Invalid % PENDING 06-10 (Bld) Interpreta LOCATIO 020 tion Code N [facility] 23:04-0 ([id number]) 400 Macrocytes Ql (Bld) MODERATE Invalid PENDING Interpreta LOCATIO 020 tion Code N [facility] 23:04-0 ([id number]) 400 Magnesium [Mass/Vol] 1.9 mg/dL Negative 1.6-2.4 PENDING 2 mg/dL LOCATIO 020 [facility] 23:04-0 ([id number]) 400 MCH (RBC) [Entitic 30 pg Negative 25-34 pg PENDING 06-0 1-2 mass] LOCATIO 020 [facility] 05:17-0 ([id number]) 400 MCH (RBC) [Entitic 30 pg Negative 25-34 pg PENDING 06-0 1-2 mass] LOCATIO 020 [facility] 23:04-0 ([id number]) 400 MCHC (RBC) 30 g/dL Low 32-36 g/dL PENDING 2 [Mass/Vol] LOCATIO 020 [facility] 05:17-0 ([id number]) 400 MCHC (RBC) 30 g/dL Low 32-36 g/dL PENDING 2 [Mass/Vol] LOCATIO 020 [facility] 23:04-0 ([id number]) 400 MCV (RBC) [Entitic 102 High 80-99 PENDING 06-0 1-2 vol] [foz_us] LOCATIO 020 [facility] 05:17-0 ([id number]) 400 MCV (RBC) [Entitic 100 High 80-99 PENDING 06-0 1-2 vol] [foz_us] LOCATIO 020 [facility] 23:04-0 ([id number]) 400 Monocytes (Bld) 0.9 10*3/uL Negative 0.0-1.0 PENDING 11-07 -2 [#/Vol] 10*3 LOCATIO 020 [facility] 05:17-0 ([id number]) 400 Monocytes (Bld) 0.4 10*3/uL Negative 0.0-1.0 PENDING 11-072 [#/Vol] 10*3 LOCATIO 020 [facility] 23:04-0 ([id number]) 400 Monocytes/100 WBC 7 % Negative 0-12 % PENDING 11-07 (Bld) LOCATIO 020 [facility] 05:17-0 ([id number]) 400 Monocytes/100 WBC 3 % Negative PENDING (Bld) LOCATIO 020 N S 23:04-0 ([id number]) 400 MRSA DNA RADHA+probe COLLECTION CONTAMINATION WITH SKIN JOSE I nvalid PENDING Ql (Unsp spec) Interpreta LOCATIO 020 tion Code N [facility] 07:02-0 ([id number]) 400 MRSA isol Org Negative Invalid PENDING specific cx Ql (Unsp Interpreta LOCATIO 020 spec) tion Code N [facility] 08:59-0 ([id number]) 400 Mucus Ql (Urine sed) MODERATE Abnormal PENDING 11-07 LOCATIO 020 N S 07:02-0 ([id number]) 400 Neutrophils (Bld) 9.6 10*3/uL High 1.8-7.8 PENDING 06-10 [#/Vol] 10*3 LOCATIO 020 [facility] 05:17-0 ([id number]) 400 Neutrophils (Bld) 14.5 10*3/uL High 1.8-7.8 PENDING [#/Vol] 10*3 LOCATIO 020 [facility] 23:04-0 ([id number]) 400 Neutrophils/100 WBC 73 % Negative 42-75 % PENDING 06-10 (Bld) LOCATIO 020 [facility] 05:17-0 ([id number]) 400 Neutrophils/100 WBC 94 % High 42-75 % PENDING 06-10 (Bld) LOCATIO 020 [facility] 23:04-0 ([id number]) 400 Nitrite Ql (U) Negative Invalid NEGATIVE PENDING Interpreta LOCATIO 020 tion Code N [facility] 07:02-0 ([id number]) 400 Oxygen (Bld) 67 mm[Hg] Low 79-93 PENDING [Partial pressure] mm[Hg] LOCATIO 020 N S 05:46-0 ([id number]) 400 Oxygen (Bld) 78 mm[Hg] Low 79-93 PENDING [Partial pressure] mm[Hg] LOCATIO 020 N S 23:45-0 ([id number]) 400 pH (U) 8.0 [pH] Invalid 5-9 PENDING Interpreta LOCATIO 020 tion Code N [facility] 07:02-0 ([id number]) 400 pH adjusted to 7.42 Negative 7.37-7.43 PENDING patient's actual LOCATIO 020 temperature (BldA) N [facility] 05:46-0 (11212) 400 pH adjusted to 7.43 Negative 7.37-7.43 PENDING patient's actual LOCATIO 020 temperature (BldA) N S 23:45-0 (30789) 400 Phosphate [Mass/Vol] 2.0 mg/dL Low 2.3-4.7 PENDING mg/dL LOCATIO 020 [facility] 23:04-0 ([id number]) 400 Platelet mean volume 10.4 Negative 7.4-10.4 PENDING (Bld) [Entitic vol] [foz_us] LOCATIO 020 N [facility] 05:170 ([id number]) 400 Platelet mean volume 10.2 Negative 7.4-10.4 PENDING (Bld) [Entitic vol] [foz_us] LOCATIO 020 N S 23:04-0 ([id number]) 400 Platelets (Bld) 158 10*3/uL Negative 130-400 PENDING 11-07 [#/Vol] 10*3/uL LOCATIO 020 [facility] 05:17-0 (23072) 400 Platelets (Bld) 135 10*3/uL Negative 130-400 PENDING 11-07 [#/Vol] 10*3/uL LOCATIO 020 N S 23:04-0 ([id number]) 400 Potassium 4.4 mmol/L Negative 3.6-5.0 PENDING [Moles/Vol] mmol/L LOCATIO 020 N S 05:17-0 ([id number]) 400 Potassium 3.9 mmol/L Negative 3.6-5.0 PENDING [Moles/Vol] mmol/L LOCATIO 020 N [facility] 23:04-0 (31350) 400 Protein [Mass/Vol] 6.9 g/dL Negative 6.4-8.2 PENDING 06-0 1-2 g/dL LOCATIO 020 [facility] 05:17-0 ([id number]) 400 Protein Ql (U) 1+ Abnormal NEGATIVE PENDING LOCATIO 020 [facility] 07:02-0 ([id number]) 400 PT Coag (PPP) [Time] 11.9 s Low 12.2-14.7 PENDING 2 s LOCATIO 020 [facility] 06:04-0 ([id number]) 400 RBC (Bld) [#/Vol] 3.78 10*6/uL Low 4.35-5.85 PENDING 10*6/uL LOCATIO 020 [facility] 05:17-0 ([id number]) 400 RBC (Bld) [#/Vol] 3.50 10*6/uL Low 4.35-5.85 PENDING 10*6/uL LOCATIO 020 [facility] 23:04-0 ([id number]) 400 RBC LM.HPF (Urine NONE Invalid PENDING sed) [#/Area] Interpreta LOCATIO 020 tion Code [facility] 07:02-0 ([id number]) 400 RBC Ql (U) Negative Invalid NEGATIVE PENDING Interpreta LOCATIO 020 tion Code [facility] 07:02-0 ([id number]) 400 SaO2% (BldA) [Mass 90 Low 94-100 % PENDING 06-0 1-2 fraction] LOCATIO 020 [facility] 05:46-0 (84391) 400 SaO2% (BldA) [Mass 95 Negative 94-100 % PENDING 06-0 1-2 fraction] LOCATIO 020 [facility] 23:45-0 (48429) 400 Segmented 88 % Invalid % PENDING neutrophils/100 WBC Interpreta LOCATIO 020 (Bld) tion Code [facility] 23:04-0 (50409) 400 Sodium [Moles/Vol] 145 mmol/L Negative 135-145 PENDING 2 mmol/L LOCATIO 020 [facility] 05:17-0 (85689) 400 Sodium [Moles/Vol] 142 mmol/L Negative 135-145 PENDING 06-10 mmol/L LOCATIO 020 [facility] 23:04-0 (01082) 400 Specific gravity (U) 1.020 Invalid 1.016-1.02 PENDING 0 [Rel density] Interpreta 2 LOCATIO 020 tion Code N [facility] 07:02-0 (43709) 400 Troponin I.cardiac ng/mL Negative <0.028 PENDING 0 1-2 [Mass/Vol] ng/mL LOCATIO 020 [facility] 06:09-0 (20914) 400 Urea nitrogen 18 mg/dL Negative 7-18 mg/dL PENDING [Mass/Vol] LOCATIO 020 [facility] 23:04-0 ([id number]) 400 Urea 19 mg/mg Invalid PENDING nitrogen/Creatinine Interpreta LOCATIO 020 [Mass ratio] tion Code N [facility] 23:04-0 ([id number]) 400 Urobilinogen (U) 1.0 mg/dL Invalid < = 1.0 PENDING [Mass/Vol] Interpreta mg/dL LOCATIO 020 tion Code N [facility] 07:02-0 ([id number]) 400 WBC (Bld) [#/Vol] 13.1 10*3/uL High 4.3-11.0 PENDING 10*3/uL LOCATIO 020 [facility] 05:17-0 ([id number]) 400 WBC (Bld) [#/Vol] 15.5 10*3/uL High 4.3-11.0 PENDING 10*3/uL LOCATIO 020 [facility] 23:04-0 (27820) 400 WBC LM.HPF (Urine Invalid [HPF] PENDING sed) [#/Area] Interpreta LOCATIO 020 tion Code N [facility] 07:02-0 ([id number]) 400 laboratory on 2019-01-13 Anion gap 13 mmol/L Invalid 6-14 Hospita [Moles/Vol] Interpreta l 019 tion Code [facility] 09:46-0 t #1 of 400 [facility] ([id number]) Basophils (Bld) 0.0 10*3/uL Invalid 0.0-0.2 Hospita 01-13 [#/Vol] Interpreta K/uL l 019 tion Code [facility] 09:46-[address] t [address] [place] [address] (94481) Basophils/100 WBC 0.40 % Invalid 0.00-2.50 [facility]ospita 01-13 (Bld) Interpreta % l 019 tion Code [facility] 09:46-0 t [address] [place] [address] (54313) Calcium [Mass/Vol] 9.4 mg/dL Invalid 8.3-10.4 [facility]osp[facility] 08-0 7-2 Interpreta mg/dL l 019 tion Code [facility] 09:46-0 t [address] [place] [address] (60967) Chloride [Moles/Vol] 98 mmol/L Invalid 95-114 Hospita Interpreta mmol/L l 019 tion Code [facility] 09:46-0 t [address] [place] [address] (09806) Creatinine 0.86 mg/dL Invalid 0.50-1.50 [facility]ospita [Mass/Vol] Interpreta mg/dL l 019 tion Code [facility] 09:46-0 t [address] [place] [address] (59469) Eosinophils (Bld) 0.1 10*3/uL Invalid 0.0-0.7 [facility]ospita 12-08 [#/Vol] Interpreta K/uL l 019 tion Code [facility] 09:46-0 [address] [place] [address] (02669) Eosinophils/100 WBC 2.3 % Invalid 0.0-7.0 % [facility]ospita 12-08 (Bld) Interpreta l 019 tion Code [facility] 09:46-0 [address] [place] [address] (11476) Erythrocyte 12.4 % Invalid 11.6-14.8 [facility]ospita distribution width Interpreta % l 019 (RBC) [Ratio] tion Code [facility] 09:46-0 [address] [place] [address] (60468) GFR/1.73 sq 90 mL/min/{1.73_m2} Invalid >59 [facility]ospita 0 8-07-2 M.predicted MDRD Interpreta mL/min/1.7 l 019 (S/P/Bld) [Vol tion Code 3m2 [facility] 09:46-0 rate/Area] t [address] [place] [address] () Glucose [Mass/Vol] 100 mg/dL Invalid 70-110 [facility]ospita 08-0 7-2 Interpreta mg/dL l 019 tion Code [facility] 09:46-0 [address] [place] [address] () HCO3 (P) [Moles/Vol] 37 High 22-33 Hospita 08 07-2 mEq/L l 019 Dist[facility] 09:46-0 t [address] [place] [address] () Hematocrit (Bld) 38.5 % Low 42.0-52.0 Hospita 2 [Volume fraction] % l 019 Dist[facility] 09:46-0 [address] [place] [address] () Hemoglobin (Bld) 11.5 g/dL Low 14.0-17.0 Hospita 07- 2 [Mass/Vol] g/dL l 019 Dist[facility] 09:46-0 t [address] [place] [address] () Lymphocytes (Bld) 1.60 10*3/uL Invalid 0.60-3.40 Hospita 2 [#/Vol] Interpreta K/uL l 019 tion Code [facility] 09:46-0 [address] [place] [address] () Lymphocytes/100 WBC 33.1 % Invalid 10.0-50.0 [facility] Interpre[facility] % l 019 tion Code [facility] 09:46-0 t [address] [place] [address] () M. pneumoniae Ab Ql Positive Abnormal Negative [facility] (S) l 019 Distric 09:46-0 t [address] [place] [address] () MCH (RBC) [Entitic 29.9 pg Invalid 27.0-31.2 [facility]ospita 08-0 7-2 mass] Interpreta pg l 019 tion Code [facility] 09:46-0 [address] [place] [address] () MCHC (RBC) 29.9 g/dL Low 32.0-36.0 Hospita 0807-2 [Mass/Vol] g/dL l 019 Dist[facility] 09:46-0 [address] [place] [address] () MCV (RBC) [Entitic 100.0 fL High 80.0-97.0 [facility]ospita 08-0 7-2 vol] fL l 019 Distric 09:46-0 t #1 of 400 [facility] ([id number]) Monocytes (Bld) 0.5 10*3/uL Invalid 0.0-0.9 [facility]ospita 01-13 [#/Vol] Interpreta K/uL l 019 tion Code [facility] 09:46-0 t #1 of 400 [facility] (84358) Monocytes/100 WBC 9.9 % Invalid 0.0-12.0 % [facility]ospita 08-0 7-2 (Bld) Interpreta l 019 tion Code [facility] 09:46-0 t #1 of 400 [facility] (45379) Natriuretic peptide 22.70 pg/mL Invalid 0.00-100.0 Hospita B (Bld) [Mass/Vol] Interpreta 0 pg/ml l 019 tion Code [facility] 09:46-0 t #1 of 400 [facility] ([id number]) Neutrophils (Bld) 2.63 10*3/uL Invalid 2.00-6.90 [facility]ospita [#/Vol] Interpreta K/uL l 019 tion Code [facility] 09:46-0 t #1 of 400 [facility] (52471) Neutrophils/100 WBC 54.3 % Invalid 37.0-80.0 [facility]osp[facility] 12-08 (Bld) Interpreta % l 019 tion Code [facility] 09:46-0 t #1 of 400 [facility] (73283) Osmolality Calc 296 High 280-295 Hospita [Osmolality] l 019 Dist[facility] 09:46-0 t #1 of 400 [facility] (30242) Platelet mean volume 10.5 fL High 7.4-10.0 Hospita (Bld) [Entitic vol] fL l 019 Distric 09:46-0 [address] [place] [address] (08362) Platelets (Bld) 154 10*3/uL Invalid 150-400 [facility]ospita 01-132 [#/Vol] Interpreta K/uL l 019 tion Code [facility] 09:46-0 [address] [place] [address] (28099) Potassium 4.4 mmol/L Invalid 3.5-5.3 [facility]ospita [Moles/Vol] Interpreta mmol/L l 019 tion Code [facility] 09:46-0 [address] [place] [address] (66564) RBC (Bld) [#/Vol] 3.85 10*6/uL Low 4.20-5.40 [facility]ospita - M/uL l 019 Dist[facility] 09:46-0 t [address] [place] [address] (27141) Sodium [Moles/Vol] 144 mmol/L Invalid 134-148 [facility]ospita 12-08 Interpreta mmol/L l 019 tion Code [facility] 09:46-0 t [address] [place] [address] (83950) TSH Qn 2.17 Invalid 0.32-5.00 Hospita Interpreta mIU/mL l 019 tion Code [facility] 09:46-0 t [address] [place] [address] (81689) Urea nitrogen 10 mg/dL Invalid 5-25 mg/dL [facility] [Mass/Vol] Interpreta l 019 tion Code [facility] 09:46-0 t [address] [place] [address] (33111) WBC (Bld) [#/Vol] 4.84 10*3/uL Low 5.00-10.00 [facility]ospita 0 01-13-2 K/uL l 019 Dist[facility] 09:46-0 t [address] [place] [address] (81413) other on 2018-12-25 Albumin BCG dye 4.0 Invalid 3.6-5.1 [facility]osp[facility] [Mass/Vol] Interpreta g/dL l 019 tion Code [facility] 09:15-0 t [address] [place] [address] (56554) Cholesterol in VLDL 13 mg/dL Invalid 0-42 mg/dL [facility] [Mass/Vol] Interpreta l 019 tion Code [facility] 09:15-0 [address] [place] [address] (30395) Cholesterol.total/Ch 2.5 {ratio} Low 3.7-6.7 Hospita olesterol in HDL l 019 [Mass ratio] [facility] 09:15-0 t [address] [place] [address] (04224) GFR/1.73 sq 90 mL/min/{1.73_m2} Invalid >59 [facility]ospita 0 7-19-2 M.predicted MDRD Interpreta mL/min/1.7 l 019 (S/P/Bld) [Vol tion Code 3m2 [facility] 09:15-0 rate/Area] t [address] [place] [address] (11255) Globulin (S) 2.0 g/dL Low 2.3-3.5 Hospita -19-2 [Mass/Vol] g/dL l 019 Distric 09:15-0 t [address] [place] [address] (58932) HCO3 (P) [Moles/Vol] 38 High 22-33 Hospita -2 mEq/L l 019 Distric 09:15-0 [address] [place] [address] (25609) Osmolality Calc 295 Invalid 280-295 [facility]ospita 12-25-2 [Osmolality] Interpreta l 019 tion Code [facility] 09:15-0 [address] [place] [address] (19186) metabolic panel on 2018-12-25 ALP [Catalytic 99 U/L Invalid 35-130 U/L [facility]osp[facility] 12-25-2 activity/Vol] Interpreta l 019 tion Code [facility] 09:15-0 [address] [place] [address] ([id number]) ALT [Catalytic 15 U/L Invalid 6-45 U/L [facility]osp[facility] 12-25- activity/Vol] Interpreta l 019 tion Code [facility] 09:15-0 [address] [place] [address] (46638) Anion gap 14 mmol/L Invalid 6-14 [facility] 12-25-2 [Moles/Vol] Interpreta l 019 tion Code [facility] 09:15-0 [address] [place] [address] (11485) AST [Catalytic 15 U/L Invalid 2-40 U/L [facility]osp[facility] 12-25- activity/Vol] Interpreta l 019 tion Code [facility] 09:15-0 [address] [place] [address] (21662) Bilirubin [Mass/Vol] 0.3 mg/dL Invalid 0.2-1.2 Hospita -2 Interpreta mg/dL l 019 tion Code [facility] 09:15-0 [address] [place] [address] ([id number]) Calcium [Mass/Vol] 9.5 mg/dL Invalid 8.3-10.4 [facility]osp[facility] 07-1 9-2 Interpreta mg/dL l 019 tion Code [facility] 09:15-0 [address] [place] [address] (93238) Chloride [Moles/Vol] 95 mmol/L Invalid 95-114 [facility]ospita -2 Interpreta mmol/L l 019 tion Code [facility] 09:15-0 [address] [place] [address] (93354) Creatinine 0.86 mg/dL Invalid 0.50-1.50 [facility]osp[facility] 12-25-2 [Mass/Vol] Interpreta mg/dL l 019 tion Code [facility] 09:15-0 [address] [place] [address] (77677) Glucose [Mass/Vol] 100 mg/dL Invalid 70-110 [facility] 12-07 9-2 Interpreta mg/dL l 019 tion Code [facility] 09:15-0 [address] [place] [address] (79466) Potassium 4.1 mmol/L Invalid 3.5-5.3 [facility]osp[facility] 12-25- [Moles/Vol] Interpreta mmol/L l 019 tion Code [facility] 09:15-0 [address] [place] [address] (32446) Protein [Mass/Vol] 6.0 g/dL Invalid 6.0-8.3 [facility]ospita - 9-2 Interpreta g/dL l 019 tion Code [facility] 09:15-0 [address] [place] [address] (24676) Sodium [Moles/Vol] 143 mmol/L Invalid 134-148 [facility]ospita -2 Interpreta mmol/L l 019 tion Code [facility] 09:15-0 [address] [place] [address] (13164) Urea nitrogen 11 mg/dL Invalid 5-25 mg/dL [facility] 12-25-2 [Mass/Vol] Interpreta l 019 tion Code [facility] 09:15-0 [address] [place] [address] (82141) cardiac on 2018-12-25 Cholesterol 159 mg/dL Invalid 100-240 [facility]osp[facility] 12-25-2 [Mass/Vol] Interpreta mg/dL l 019 tion Code [facility] 09:15-0 [address] [place] [address] (37283) Cholesterol in HDL 64 mg/dL Invalid 30-85 [facility]osp[facility] 07-1 9-2 [Mass/Vol] Interpreta mg/dL l 019 tion Code [facility] 09:15-0 [address] [place] [address] (38041) Cholesterol in LDL 82 mg/dL Invalid 0-100 [facility]osp[facility] 07-1 9-2 [Mass/Vol] Interpreta mg/dL l 019 tion Code [facility] 09:15-0 [address] [place] [address] (20970) Natriuretic peptide 33.60 pg/mL Invalid 0.00-100.0 [facility]ospita 2 B (Bld) [Mass/Vol] Interpreta 0 pg/ml l 019 tion Code [facility] 09:15-0 [address] [place] [address] () Triglyceride 67 mg/dL Invalid 35-160 [facility]osp[facility] 2 [Mass/Vol] Interpreta mg/dL l 019 tion Code [facility] 09:15-0 [address] [place] [address] () other on 2018-12-16 Albumin BCG dye 4.0 Invalid 3.6-5.1 [facility]ospita [Mass/Vol] Interpreta g/dL l 019 tion Code [facility] 17:00-0 [address] [place] [address] () Erythrocyte 12.4 % Invalid 11.6-14.8 [facility]ospita distribution width Interpreta % l 019 (RBC) [Ratio] tion Code [facility] 17:00-0 t [address] [place] [address] () GFR/1.73 sq 93 mL/min/{1.73_m2} Invalid >59 [facility]ospita 0 7-10-2 M.predicted MDRD Interpreta mL/min/1.7 l 019 (S/P/Bld) [Vol tion Code 3m2 [facility] 17:00-0 rate/Area] [address] [place] [address] () Globulin (S) 2.6 g/dL Invalid 2.3-3.5 [facility]ospita 2 [Mass/Vol] Interpreta g/dL l 019 tion Code [facility] 17:00-0 [address] [place] [address] () HCO3 (P) [Moles/Vol] 38 High 22-33 Hospita 2 mEq/L l 019 [facility] 17:00-0 [address] [place] [address] () MCHC (RBC) 30.6 g/dL Low 32.0-36.0 [facility]ospita 2 [Mass/Vol] g/dL l 019 Dist[facility] 17:00-0 [address] [place] [address] (41253) Osmolality Calc 287 Invalid 280-295 Hospita 2 [Osmolality] Interpreta l 019 tion Code [facility] 17:00-0 [address] [place] [address] ([id number]) Platelet mean volume 10.1 fL High 7.4-10.0 [facility] 2 (Bld) [Entitic vol] fL l 019 Distric 17:00-0 t [address] [place] [address] ([id number]) metabolic panel on 2018-12-16 ALP [Catalytic 96 U/L Invalid 35-130 U/L Hospita activity/Vol] Interpreta l 019 tion Code Distric 17:00-0 t [address] [place] [address] () ALT [Catalytic 27 U/L Invalid 6-45 U/L Hosp[facility] activity/Vol] Interpreta l 019 tion Code Distric 17:00-0 t [address] [place] [address] () Anion gap 14 mmol/L Invalid 6-14 [facility]osp[facility] 12-16-2 [Moles/Vol] Interpreta l 019 tion Code Distric 17:00-0 t [address] [place] [address] () AST [Catalytic 21 U/L Invalid 2-40 U/L Hosp[facility] activity/Vol] Interpreta l 019 tion Code Distric 17:00-0 [facility] [address] [place] [address] ([id number]) Bilirubin [Mass/Vol] 0.4 mg/dL Invalid 0.2-1.2 [facility]osp[facility] -2 Interpreta mg/dL l 019 tion Code Distric 17:00-0 [facility] [address] [place] [address] ([id number]) Calcium [Mass/Vol] 9.5 mg/dL Invalid 8.3-10.4 [facility]osp[facility] 07-1 0-2 Interpreta mg/dL l 019 tion Code Distric 17:00-0 t [address] [place] [address] ([id number]) Chloride [Moles/Vol] 92 mmol/L Low 95-114 [facility]osp[facility] -2 mmol/L l 019 Distric 17:00-0 [facility] [address] [place] [address] ([id number]) Creatinine 0.83 mg/dL Invalid 0.50-1.50 [facility] 12-16-2 [Mass/Vol] Interpreta mg/dL l 019 tion Code Distric 17:00-0 t [address] [place] [address] () Glucose [Mass/Vol] 94 mg/dL Invalid 70-110 [facility] 07-1 0-2 Interpreta mg/dL l 019 tion Code Distric 17:00-0 t [address] [place] [address] () Potassium 4.2 mmol/L Invalid 3.5-5.3 [facility] 12-16-2 [Moles/Vol] Interpreta mmol/L l 019 tion Code Distric 17:00-0 t [address] [place] [address] () Protein [Mass/Vol] 6.6 g/dL Invalid 6.0-8.3 [facility]osp[facility] 12-07 0-2 Interpreta g/dL l 019 tion Code Distric 17: t [address] [place] [address] () Sodium [Moles/Vol] 140 mmol/L Invalid 134-148 [facility] 03-10 Interpreta mmol/L l 019 tion Code Distric 17:00-0 t [address] [place] [address] () Urea nitrogen 7 mg/dL Invalid 5-25 mg/dL Hosp[facility] [Mass/Vol] Interpreta l 019 tion Code Distric 17:00-0 t [address] [place] [address] () hematology on 2018-12-16 Basophils (Bld) 0.0 10*3/uL Invalid 0.0-0.2 [facility]osp[facility] 12-16 [#/Vol] Interpreta K/uL l 019 tion Code Distric 17:00-0 t [address] [place] [address] () Basophils/100 WBC 0.40 % Invalid 0.00-2.50 [facility]osp[facility] 12-16 (Bld) Interpreta % l 019 tion Code Distric 17:00-0 t [address] [place] [address] () Eosinophils (Bld) 0.1 10*3/uL Invalid 0.0-0.7 [facility]ospita 03-10 [#/Vol] Interpreta K/uL l 019 tion Code Distric 17:00-0 t [address] [place] [address] ([id number]) Eosinophils/100 WBC 1.7 % Invalid 0.0-7.0 % [facility]ospita -2 (Bld) Interpreta l 019 tion Code Distric 17:00-0 t [address] [place] [address] ([id number]) Hematocrit (Bld) 38.6 % Low 42.0-52.0 [facility]osp[facility] 2 [Volume fraction] % l 019 Distric 17:00-0 t [address] [place] [address] () Hemoglobin (Bld) 11.8 g/dL Low 14.0-17.0 [facility]osp[facility] 12-16- 2 [Mass/Vol] g/dL l 019 Distric 17:00-0 t [address] [place] [address] () Lymphocytes (Bld) 1.42 10*3/uL Invalid 0.60-3.40 [facility]osp[facility] [#/Vol] Interpreta K/uL l 019 tion Code Distric 17:00-0 t [address] [place] [address] () Lymphocytes/100 WBC 26.2 % Invalid 10.0-50.0 [facility]osp[facility] 10-2 (Bld) Interpreta % l 019 tion Code Distric 17:00-0 [address] [place] [address] () MCH (RBC) [Entitic 29.5 pg Invalid 27.0-31.2 [facility]osp[facility] 07-1 0-2 mass] Interpreta pg l 019 tion Code Distric 17:00-0 t [address] [place] [address] () MCV (RBC) [Entitic 96.5 fL Invalid 80.0-97.0 [facility]osp[facility] 07-1 0-2 vol] Interpreta fL l 019 tion Code Distric 17:00-0 [address] [place] [address] () Monocytes (Bld) 0.5 10*3/uL Invalid 0.0-0.9 [facility]osp[facility] 12-162 [#/Vol] Interpreta K/uL l 019 tion Code Distric 17:00-0 [address] [place] [address] () Monocytes/100 WBC 8.5 % Invalid 0.0-12.0 % [facility]osp[facility] 07-1 0-2 (Bld) Interpreta l 019 tion Code Distric 17:00-0 [address] [place] [address] ([id number]) Neutrophils (Bld) 3.43 10*3/uL Invalid 2.00-6.90 [facility]ospita [#/Vol] Interpreta K/uL l 019 tion Code Distric 17:00-0 [address] [place] [address] ([id number]) Neutrophils/100 WBC 63.2 % Invalid 37.0-80.0 [facility]osp[facility] 2 (Bld) Interpreta % l 019 tion Code Distric 17:00-0 t [address] [place] [address] ([id number]) Platelets (Bld) 165 10*3/uL Invalid 150-400 Hospita 12-16 [#/Vol] Interpreta K/uL l 019 tion Code Distric 17:00-0 t [address] [place] [address] ([id number]) RBC (Bld) [#/Vol] 4.00 10*6/uL Low 4.20-5.40 Hospita M/uL l 019 Distric 17:00-0 t [address] [place] [address] ([id number]) WBC (Bld) [#/Vol] 5.42 10*3/uL Invalid 5.00-10.00 Hospita 0 12-16-2 Interpreta K/uL l 019 tion Code Distric 17:00-0 t [address] [place] [address] ([id number]) cardiac on 2018-12-16 Natriuretic peptide 66.20 pg/mL Invalid 0.00-100.0 Hospita 2 B (Bld) [Mass/Vol] Interpreta 0 pg/ml l 019 tion Code Distric 17:00-0 t [address] [place] [address] ([id number]) Social History The data below is from [...] 01/26/13 4:25am Hx Family Cardiac Disorders Y JEFFRYN AL GRANDFATHER 01/26/13 4:25am History Response Recorde d [...] 03/03/13 9:36pm Hx Family Cardiac Disorders Y JEFFRYN AL GRANDFATHER 03/03/13 9:36pm History Response Recorde d [...] 3:32pm Sexually Transmitted Disease N 01/26/13 4:25am Vital Signs Date Time Vital Sign Value Performing Clinician Facil ity 11-08-2019 Body temperature 36.4 NA NA PENDING L OCATION [facility] 23:45-0400 ([id number]) 06-01-2020 Body temperature 36.1 NA NA PENDING L OCATION [facility] 05:46-0400 ([id number]) Functional Status No Information Mental Status No Information Urinalysis complete W Reflex Culture panel (U) 2019-11-08 Note Date & Note Facility Type 11-08-2019 CULTURE PENDING (L) culture already in progress PENDING LOCATION [facility] Urinalysis ([id number]) complete W Reflex Culture panel (U) null Note Date & Note Facility Type [id number] ~ACCOUNT#: PENDING LOCATION [facility] [id number] ~PHYSICIAN: TOMAS LARIOS PT ~Therapy P rogress Note ([id number]) ~PT visited with patient and patient re port he has all equipment at home and wears O2 prior to admit.~ P atient reports no concern. Patient dismissing to home on this date . ~1 visit ~ ~ ~ ~TOMAS LARIOS PT Nov 11, 2019 09:02 ~ ~ ~<Created by TOMAS LARIOS PT> ~<Electronically signed by TOMAS LARIOS PT> 11/11/1902 ~ ~ null Note Date & Note Facility Type Note NAME: [facility] REC#: [id number] ~ACCOUNT#: PENDING LOCATION [facility] [id number] ~PHYSICIAN: XIMENA QUINONES DO ~Subjectiv e ~Time Seen () by a Provider: 04:41 ~ ~Sepsis Event ~E valuation ~Height, Weight, BMI ~Height: 5'8.00" ~Weight: 174lbs. 0 .0oz. 78.731733kh; 27.00 BMI ~Method:Stated ~ ~Focused Exam ~[place] Level ~11/08/19 09:21: Lactic Acid Level 0.99 ~ ~Exam ~Exam ~ ~Vital Signs ~ ~ ~ Date Time Temp Pulse Resp B/P (MAP) Pulse Ox O2 Delivery O2 Flow Rate FiO2 ~ ~11/10/19 04:08 High Flow N/C 8.00 ~ ~11/10/19 02:59 36.6 ~ ~11/10/19 02:03 98 High Flow N/C 8.00 ~ ~ 11/10/19 01:00 84 ~ ~6/3/20 01:00 36.4 85 18 124/76 (92) 100 High F low N/C 30.00 ~ ~ 50.00 ~ ~11/10/19 00:46 High Flow N/C 8.00 ~ ~11/09 00:46 37.1 High Flow N/C 8.00 ~ ~11/09/19 21:18 98 High Flow N /C 10.00 ~ ~11/09/19 20:00 36.2 ~ ~11/09/19 20:00 High Flow N/C 10.0 0 ~ ~11/09/19 19:00 98 ~ ~11/09/19 18:10 95 High Flow N/C 10.00 ~ ~11/09/19 18:00 96 28 139/75 (96) 97 Vapotherm 30.00 ~ ~ 50.00 ~ ~11/09/19 17:00 90 27 125/74 (91) 95 Vapotherm 30.00 ~ ~ 50.00 ~ ~11/09/19 16:00 94 20 125/74 (91) 94 Vapotherm 30.00 ~ ~ 50.00 ~ ~11/09/19 16:00 36.9 ~ ~11/09/19 16:00 High Flow N/C 10.00 ~ ~11/09/19 15: 00 86 13 117/71 (86) 97 Vapotherm 30.00 ~ ~ 50.00 ~ ~11/09/19 14: 43 94 High Flow N/C 10.00 ~ ~11/09/19 14:00 80 11 118/64 (82) 100 Vap otherm 30.00 ~ ~ 50.00 ~ ~11/09/19 13:13 83 ~ ~11/09/19 13:00 83 13 103/63 (76) 96 Vapotherm 30.00 ~ ~ 50.00 ~ ~11/09/19 12:00 Vapothe rm 10.00 55 ~ ~11/09/19 12:00 36.5 ~ ~11/09/19 12:00 96 26 118/60 (79) 100 Vapotherm 30.00 ~ ~ 50.00 ~ ~11/09/19 11:00 85 49 118/68 (85) 99 Vapotherm 30.00 ~ ~ 50.00 ~ ~11/09/19 10:29 93 Vapotherm 20.0 0 50 ~ ~11/09/19 10:00 89 15 125/74 (91) 95 Vapotherm 30.00 ~ ~ 50.0 0 ~ ~11/09/19 09:00 90 15 105/63 (77) 91 Vapotherm 30.00 ~ ~ 50.0 0 ~ ~11/09/19 08:00 91 14 127/64 (85) 92 Vapotherm 30.00 ~ ~ 50.0 0 ~ ~11/09/19 08:00 Vapotherm 20.00 ~ ~ 50.00 ~ ~11/09/19 08:00 Vapothe rm 30.00 55 ~ ~11/09/19 07:17 97 Vapotherm 20.00 50 ~ ~11/09/19 07:11 1 00 Vapotherm 30.00 50 ~ ~11/09/19 07:00 72 ~ ~11/09/19 07:00 73 9 1 (91) 94 Vapotherm 30.00 ~ ~ 50.00 ~ ~11/09/19 06:00 73 30 1 (75) 95 Vapotherm 30.00 ~ ~ 50.00 ~ ~11/09/19 05:15 75 9 11 (85) 96 Vapotherm 30.00 ~ ~ 50.00 ~ ~ ~ ~ ~I O ~ ~ 11/10/19 ~ ~ 07:00 ~ ~Intake Total 2110 ml ~ ~Output Total 1785 ml ~ ~Trev nce 325 ml ~ ~ ~Height Weight ~Height: 5'8.00" ~Weight: 174lbs . 0.0oz. 78.153665fw; 27.00 BMI ~Method:Stated ~General Appearance: No Apparent Distress, Chronically ill ~HEENT: PERRL/EOMI, [place] st Mucous Membranes ~Neck: Normal Inspection, Supple ~Respiratory: No Accessory Muscle Use, Decreased Breath Sounds, Other (on vapo therm) ~Cardiovascular: Regular Rate, Rhythm, No Murmur ~Capill shayla Refill: Less Than 3 Seconds ~Extremity: No Calf Tenderness, Swelling ~Neurologic/Psychiatric: Alert, Oriente d x3 ~Skin: Normal Color, Warm/Dry ~ ~Results ~Lab ~Laboratory Te sts ~11/08/19 09:17 ~ ~ ~11/09/19 03:04 ~ ~ ~11/10/19 02:53 ~ ~ ~ ~ Assessment/Plan ~Assessment/Plan ~Acute on Chronic Resp iratory Failure ~ -Currently on high flow NC ~Sepsis-with PNA ~ -Lawler cultures pending ~ - Zosyn ~ -MRSA-- neg ~COPD ~ Continue Zosyn ~ Continue Steroids ~ -Duoneb ~CAD s/p CABG ~PAD ~ CHF with Ef 45% ~ Last cath 03/2018 ~ Cardiology following ~ ~HTN ~ Well controlled, trend ~ ~ ~ ~XIMENA QUINONES DO Nov 10, 2019 04:46 ~ ~ ~<Created by XIMENA QUINONES DO> ~<Electronically signed by Miracle QUINONES DO> 11/22/19 1030 ~ ~ Advance Directives Directive Response Recor ded Date Advance Directives Y 10:00pm Health Care Power of Cake Washer N 11/06/12 10:00pm Organ Donor N 11/06/12 1 0:00pm Directive Response Recor ded Date Advance Directives Y 4:25am Health Care Power of Cake Washer N 01/26/13 4:25am Organ Donor N 01/26/13 4 :25am Directive Response Recor ded Date Advance Directives Y 9:36pm Health Care Power of Cake Washer N 03/03/13 9:36pm Organ Donor N 03/03/13 9 :36pm Additional Source Comments This clinical document has been generated using [employer] software that has been certified by the Office of the National Coordinator for Health Information Technology (ONC 15.99.04.3023.Diam.31.00.0.690579) and the National Committee for [employer] (NCQA, as an eMeasure certified technology). FOR [...] BASED ON T HE PRIMARY CLINICAL RECORDS. [employer] provides no warranty or guara ntee of the accuracy or completeness of information in this document.The followi ng information is based on time limited clinical information UNRECOGNIZED CONTENT PROVIDED BELOW FOR UNRECOGNIZED SECTION REASON FOR VISIT EMR-Jamie
--- OUTSIDE RECORDS SUMMARY | 2020-01-23 19:49 | XMS REPORT ---
Author Author Ethan Jason Doctor Organization [facility] Address Unknown Phone Unavailable Care Team Providers Care Celery Stripper Name Role Phone Migration, Doctor Unavailable Unavailable PROBLEMS Unknown Problems ALLERGIES No Information ENCOUNTERS Encounter Location Date Diagnosis [facility] [address] [facility] [id number] [address] [place] [id number] Jan, [facility] [address] [facility] [id number] [address] [place] [phone] Jan, [facility] [address] [facility] [id number] [address] [place] [phone] Dec, IMMUNIZATIONS No Known Immunizations SOCIAL HISTORY Never Assessed REASON FOR VISIT PLAN OF CARE VITAL SIGNS MEDICATIONS Unknown Medications RESULTS No Results PROCEDURES No Known procedures INSTRUCTIONS MEDICATIONS ADMINISTERED No Known Medications
--- OUTSIDE RECORDS SUMMARY | 2020-01-23 19:53 | XMS REPORT | Continuity of Care Document ---
Demographics Preferred Language Unknown Marital Status Unknown Mandaeism Affiliation Unknown Race Unknown Ethnic Group Unknown Author Author [facility] Organization [employer] Address Unknown Phone Unavailable Allergies Active Description Code Type Severity Reaction Onset Reported/Identified Relationship to Patient Clinical Status Yes SYMBICORT SYMBICORT MODERATE Yes TETANUS TETANUS MODERATE Yes SYMBICORT UNKNOWN OTHER Yes SYMBICORT UNKNOWN UNKNOWN Yes SYMBICORT MODERATE MODERATE Yes SYMBICORT MODERATE OTHER Yes TETANUS MODERATE MODERATE Yes TETANUS MODERATE OTHER Yes TETANUS-DIPHTHERIA TOXOIDS-TD UNKNOWN UNKNOWN Yes budesonide [id number] Drug Allerg y Unknown N/A 05/08/2017 Yes formoterol [id number] Drug Allerg y Unknown N/A 05/08/2017 Yes tetanus toxoid, adsorbed [id number] Drug Allergy Unknown N/A 05/08/2017 Yes budesonide [id number] Drug Allerg y Severe angioedema 12/06/2018 Yes formoterol [id number] Drug Allerg y Severe angioedema 12/06/2018 Yes tetanus toxoid, adsorbed [id number] Drug Allergy Mild hives 12/06/2018 Yes DOROTA Inhibitors [id number] Dr ponce Allergy Unknown Angioedema 12/06/2018 Medications Medication Packaging [...] HYPE RLIPIDEMIA NEC/NOS 07/03/2010 Ot 305.1 TOBA PLACEMENT SECRETARY USE DISORDER 07/03/2010 Ot 401.9 HYPE RTENSION NOS 07/03/2010 Ot 414.01 COR ONARY ATHEROSCLEROSIS OF [place] CORON 07/03/2010 Ot 414.02 COR ON ATHEROSCLEROSIS AUTOLOG VEIN BYPAS 07/03/2010 Ot 414.2 MAILROOM MANAGER JIMMIE TOTAL OCCLUSION OF CORONARY TOM 07/03/2010 [...] IETY STATE NOS 06/28/2011 Ot 305.1 TOBA PLACEMENT SECRETARY USE DISORDER 06/28/2011 Ot 338.4 MAILROOM MANAGER JIMMIE PAIN SYNDROME 06/28/2011 Ot 401.9 HYPE [...] 09/05/2011 Ot 414.01 COR ONARY ATHEROSCLEROSIS OF [place] CORON 09/05/2011 Ot 496 CHR AI RWAY [...] 10/23/2011 Ot 414.01 COR ONARY ATHEROSCLEROSIS OF [place] CORON 10/23/2011 Ot 414.2 MAILROOM MANAGER JIMMIE TOTAL OCCLUSION OF CORONARY TOM 10/23/2011 Ot 428.0 VASHTI ESTIVE HEART FAILURE NOS 10/23/2011 Ot 428.22 CHR ONIC SYSTOLIC HRT FAILURE 10/23/2011 Ot 496 CHR AI RWAY OBSTRUCT NEC 10/23/2011 Ot 784.0 HEAD ACHE 10/23/2011 Ot V15.82 HIS TORY OF TOBACCO USE 10/23/2011 Ot V45.81 AOR TOCORONARY BYPASS 12/07/2011 Ot 272.4 HYPE RLIPIDEMIA NEC/NOS 12/07/2011 Ot 305.1 TOBA PLACEMENT SECRETARY USE DISORDER 12/07/2011 Ot 401.9 HYPE RTENSION NOS 12/07/2011 Ot 414.00 COR ON ATHEROSCLER NOS TYPE VESSEL, NATIV 12/07/2011 Ot 428.0 VASHTI ESTIVE HEART FAILURE NOS 12/07/2011 Ot 496 CHR AI RWAY OBSTRUCT NEC 12/07/2011 Ot V45.81 AOR TOCORONARY BYPASS 12/19/2011 Ot 305.1 TOBA PLACEMENT SECRETARY USE DISORDER 12/19/2011 Ot 414.00 COR ON ATHEROSCLER NOS TYPE VESSEL, NATIV 12/19/2011 Ot 496 CHR AI RWAY OBSTRUCT NEC 12/19/[address] PAIN NOS 12/19/2011 Ot V45.81 AOR TOCORONARY BYPASS 12/19/2011 Ot V58.69 OTH MED,LT,CURRENT USE 05/18/2012 Ot 272.4 HYPE RLIPIDEMIA NEC/NOS 05/18/2012 Ot 300.00 ANX IETY STATE NOS 05/18/2012 Ot 305.1 TOBA PLACEMENT SECRETARY USE DISORDER 05/18/2012 Ot 311 DEPRES SIVE [...] DIS MAGNESIUM METABOLISM 07/02/2012 Ot 305.1 TOBA PLACEMENT SECRETARY USE DISORDER 07/02/2012 Ot 401.9 HYPE RTENSION NOS 07/02/2012 Ot 414.01 COR ONARY ATHEROSCLEROSIS OF [place] CORON 07/02/2012 Ot 414.02 COR ON ATHEROSCLEROSIS AUTOLOG VEIN BYPAS 07/02/2012 Ot 414.2 MAILROOM MANAGER JIMMIE TOTAL OCCLUSION OF CORONARY TOM 07/02/2012 [...] MD Ot 414. 01 CORONARY ATHEROSCLEROSIS OF [place] CORON 01/27/2013 JOSHUA CASTILLO MD Ot 414. 02 CORON ATHEROSCLEROSIS AUTOLOG VEIN BYPAS 01/27/2013 JOSHUA CASTILLO MD Ot 414. 4 CORONARY ATHEROSCLEROSIS DUE TO [place] 01/27/2013 JOSHUA CASTILLO MD Ot 496 CHR AIRWAY OBSTRUCT NEC 01/27/2013 JOSHUA CASTILLO MD Ot V15. 82 HISTORY OF TOBACCO USE 01/27/2013 JOSHUA CASTILLO MD Ot V45. 81 AORTOCORONARY BYPASS 01/27/2013 JOSHUA CASTILLO MD, Ot V45. 82 PERCUTANEOUS TRANSLUM CORON ANGIOPLASTY 01/27/2013 JOSHUA CASTILLO MD Ot V58. 63 LONG-TERM(CURRENT)USE OF ANTIPLATELET/AN 01/27/2013 JOSHUA CASTILLO MD Ot V58. 66 LONG-TERM (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 01/27/2013 JOSHUA CASTILLO MD, Ot V58. 69 OTH MED,LT,CURRENT USE 03/04/2013 JOSHUA CASTILLO MD Ot [...] 305 .1 TOBACCO USE DISORDER 06/08/2013 DALLIN LCUAS MD Ot 411 .1 INTERMED CORONARY SYND 06/08/2013 DALLIN LUCAS MD Ot 414.00 CORON ATHEROSCLER NOS TYPE VESSEL, NATIV 06/08/2013 DALLIN LUCAS MD Ot 414 .2 CHRONIC TOTAL OCCLUSION OF CORONARY TOM 06/08/2013 DALLIN LUCAS MD Ot 496 CHR AIRWAY OBSTRUCT NEC 06/08/2013 DALLIN LUCAS MD Ot 787.02 NAUSEA ALONE 06/08/2013 DALLIN LUCAS MD Ot 996.72 OTH COMPLICATIONS DUE TO OTH CARD DEVICE 06/08/2013 DALLIN LUCAS MD Ot V45.81 AORTOCORONARY BYPASS 08/11/2013 XIMENA QUINONES [...] 08/31/2014 Ot 519.11 08/31/2014 Ot 786.2 08/31/2014 JOSHUA CASTILLO MD Ot 414. 00 [...] Ot 305. 1 TOBACCO USE DISORDER 09/21/2014 JSOHUA CASTILLO MD Ot 401. 9 HYPERTENSION NOS 09/21/2014 JOSHUA CASTILLO MD Ot 412 OLD MYOCARDIAL INFARCT 09/21/2014 JOSHUA CASTILLO MD Ot 414. 01 CORONARY ATHEROSCLEROSIS OF [place] CORON 09/21/2014 JOSHUA CASTILLO MD Ot 414. [...] 09/23/2014 Ot 428.0 09/23/2014 Ot 433.10 10/12/2014 JOSUHA CASTILLO MD Ot 272. 4 10/12/2014 JOSHUA [...] NELSON MD Ot 414.01 CORONARY ATHEROSCLEROSIS OF [place] CORON 01/16/2015 IRIS NELSON MD Ot 491.21 OBSTR CHRONIC BRONCHITIS, W (ACUTE) EXAC 01/16/2015 IRIS NELSON MD Ot 786.50 CHEST PAIN NOS 01/16/2015 OMAR CRANE, IRIS Hudson Ot V15.82 HISTORY OF TOBACCO USE 01/16/2015 OMAR CRANE, IRIS Hudson Ot V46.2 SUPPLEMENTAL OXYGEN 04/08/2015 DEBBIE ESPINOSA DO Ot F17.210 NICOTINE DEPENDENCE, CIGARETTES, UNCOMPL 04/08/2015 DEBBIE ESPINOSA DO Ot I70.202 UNSP ATHSCL [place] ARTERIES OF EXTREMITI 04/08/2015 DEBBIE ESPINOSA DO Ot M51.17 INTVRT DISC DISORDERS W RADICULOPATHY, L 04/25/2015 CATE HERRERA APRN Ot J44.9 05/02/2015 CATE HERRERA APRN Ot [...] Jordan Ot I25.10 09/13/2015 SCOTTY PA, YOUNG K Ot E78.2 09/13/2015 SCOTTY PA, YOUNG K Ot I10 09/13/2015 SCOTTY PA, YOUNG K Ot I25.10 09/13/2015 SCOTTY PA, YOUNG Jordan Ot E78.2 09/13/2015 SCOTTY PA, YOUNG Jordan Ot I10 09/13/2015 SCOTTY PA, YOUNG Jordan Ot I25.10 10/03/2015 SCOTTY PA, YOUNG Jordan Ot E78.2 MIXED HYPERLIPIDEMIA 10/03/2015 YOUNG MCALLISTER Ot I10 ESSENTIAL (PRIMARY) HYPERTENSION 10/03/2015 YOUNG MCALLISTER Ot I25.10 ATHSCL HEART DISEASE OF [place] CORONARY 10/13/2015 YOUNG MCALLISTER Ot E78.2 MIXED HYPERLIPIDEMIA 10/13/2015 YOUNG MCALLISTER Ot I10 ESSENTIAL (PRIMARY) HYPERTENSION 10/13/2015 YOUNG MCALLISTER Ot I25.10 ATHSCL HEART DISEASE OF [place] CORONARY 10/25/2015 Ot 414.00 COR ON ATHEROSCLER [...] MD Ot 401. 9 HYPERTENSION NOS 10/25/2015 OJSHUA CASTILLO MD Ot 414. 00 CORON ATHEROSCLER [...] MCALLISTER Ot I10 ESSENTIAL (PRIMARY) HYPERTENSION 10/25/2015 YUONG MCALLISTER Ot I25.10 ATHSCL HEART DISEASE OF [place] CORONARY 10/26/2015 IRIS NELSON MD Ot F17.210 [...] F17.210 NICOTINE DEPENDENCE, CIGARETTES, UNCOMPL 11/08/2015 IRIS NELSNO MD Ot J44.1 CHRONIC OBSTRUCTIVE PULMONARY DISEASE W 11/08/2015 IRIS NELSON MD Ot K29.70 GASTRITIS, UNSPECIFIED, WITHOUT BLEEDING 11/08/2015 IRIS NELSON MD Ot R07.9 CHEST PAIN, UNSPECIFIED 02/13/2016 ALEX CRANE, MITCHELL Chapin Ot R63.4 ABNORMAL WEIGHT LOSS 02/13/2016 MITCHELL [...] JOHNSON MD Ot K62.1 RECTAL POLYP 02/15/2016 MITCHELL JOHNSON MD Ot K64.9 UNSPECIFIED HEMORRHOIDS 02/15/2016 [...] Z86.010 PERSONAL HISTORY OF COLONIC POLYPS 02/21/2016 ALEX CRANE, MITCHELL Chapin Ot Z87.11 PERSONAL HISTORY OF PEPTIC ULCER DISEASE 02/27/2016 ALEX CRANE, MITCHELL Chapin Ot D12.3 BENIGN NEOPLASM OF TRANSVERSE COLON 02/27/2016 MITCHELL JOHNSON MD Ot K29.70 GASTRITIS, UNSPECIFIED, WITHOUT BLEEDING 02/27/2016 MITCHELL JOHNSON MD Ot K57.30 DVRTCLOS OF LG INT W/O PERFORATION OR AB 02/27/2016 MITCHELL JOHNSON MD Ot K62.1 RECTAL POLYP 02/27/2016 MITCHELL JOHNSON MD Ot K64.9 UNSPECIFIED HEMORRHOIDS 02/27/2016 MITCHELL JOHNSON MD Ot R63.4 ABNORMAL WEIGHT LOSS 02/27/2016 MITCHELL JOHNSON MD Ot Z12.11 ENCOUNTER FOR SCREENING FOR MALIGNANT NE 02/27/2016 MITCHELL JOHNSON MD Ot Z86.010 PERSONAL HISTORY OF COLONIC POLYPS 02/27/2016 MITCHELL JOHNSON MD, Ot Z87.11 PERSONAL HISTORY OF PEPTIC ULCER DISEASE 04/01/2016 JOSHUA CASTILLO MD Ot E78. 5 HYPERLIPIDEMIA, UNSPECIFIED 04/01/2016 JOSHUA CASTILLO MD Ot F41. 9 ANXIETY DISORDER, UNSPECIFIED 04/01/2016 JOSHUA CASTILLO MD Ot I10 ESSENTIAL (PRIMARY) HYPERTENSION 04/01/2016 JOSHUA CASTILLO MD Ot I25. 10 ATHSCL HEART DISEASE OF [place] CORONARY 04/01/2016 JOSHUA CASTILLO MD Ot R07. [...] MCALLISTER Ot I25.10 ATHSCL HEART DISEASE OF [place] CORONARY 04/04/2016 JOSHUA CASTILLO MD Ot E78. 5 HYPERLIPIDEMIA, UNSPECIFIED 04/04/2016 JOSHUA CASTILLO MD Ot F41. 9 ANXIETY DISORDER, UNSPECIFIED 04/04/2016 JOSHUA CASTILLO MD Ot I10 ESSENTIAL (PRIMARY) HYPERTENSION 04/04/2016 JOSHUA CASTILLO MD Ot I25. 10 ATHSCL HEART DISEASE OF [place] CORONARY 04/04/2016 JOSHUA CASTILLO MD Ot R07. [...] MCALLISTER Ot I25.10 ATHSCL HEART DISEASE OF [place] CORONARY 04/05/2016 JOSHUA CASITLLO MD Ot E78. 5 HYPERLIPIDEMIA, UNSPECIFIED 04/05/2016 JOSHUA CASTILLO MD Ot F41. 9 ANXIETY DISORDER, UNSPECIFIED 04/05/2016 JOSHUA CASTILLO MD Ot I10 ESSENTIAL (PRIMARY) HYPERTENSION 04/05/2016 JOSHUA CASTILLO MD Ot I25. 10 ATHSCL HEART DISEASE OF [place] CORONARY 04/05/2016 JOSHUA CASTILLO MD Ot R07. 89 OTHER CHEST PAIN 04/05/2016 JOSHUA CASTILLO MD Ot Z72. 0 TOBACCO USE 04/05/2016 CATE HERRERA APRN Ot J44.9 CHRONIC OBSTRUCTIVE PULMONARY DISEASE, U 04/05/2016 CATE HERRERA APRN Ot R06.02 SHORTNESS OF BREATH 04/05/2016 CATE HERRERA APRN Ot R06.2 WHEEZING 04/05/2016 CATE HERRERA APRN Ot R09.02 HYPOXEMIA 04/05/2016 JAVIER, CATE E WATER TREATMENT SPECIALIST Ot R91.1 SOLITARY PULMONARY NODULE 04/17/2016 JOSHUA CASTILLO MD Ot E78. 2 MIXED HYPERLIPIDEMIA 04/17/2016 JOSHUA CASTILLO MD Ot F41. 9 ANXIETY DISORDER, UNSPECIFIED 04/17/2016 JOSHUA CASTILLO MD Ot I10 ESSENTIAL (PRIMARY) HYPERTENSION 04/17/2016 JOSHUA CASTILLO MD Ot I25. 10 ATHSCL HEART DISEASE OF [place] CORONARY 04/17/2016 JOSHUA CASTILLO MD Ot R07. 89 OTHER CHEST PAIN 04/17/2016 JOSHUA CASTILLO MD Ot Z72. 0 TOBACCO USE 04/22/2016 JOSHUA CASTILLO MD Ot E78. 2 MIXED HYPERLIPIDEMIA 04/22/2016 JOSHUA CASTILLO MD Ot F41. 9 ANXIETY DISORDER, UNSPECIFIED 04/22/2016 JOSHUA CASTILLO MD Ot I10 ESSENTIAL (PRIMARY) HYPERTENSION 04/22/2016 JOSHUA CASTILLO MD Ot I25. 10 ATHSCL HEART DISEASE OF [place] CORONARY 04/22/2016 JOSHUA CASTILLO MD Ot R07. 89 OTHER CHEST PAIN 04/22/2016 JOSHUA CASTILLO MD Ot Z72. 0 TOBACCO USE 04/22/2016 JOSHUA CASTILLO MD Ot E78. 5 HYPERLIPIDEMIA, UNSPECIFIED 04/22/2016 JOSHUA CASTILLO MD Ot F41. 9 ANXIETY DISORDER, UNSPECIFIED 04/22/2016 JOSHUA CASTILLO MD Ot I10 ESSENTIAL (PRIMARY) HYPERTENSION 04/22/2016 JOSHUA CASTILLO MD Ot I25. 10 ATHSCL HEART DISEASE OF [place] CORONARY 04/22/2016 JOSHUA CASTILLO MD Ot R07. 89 OTHER CHEST PAIN 04/22/2016 JOSHUA CASTILLO MD Ot Z72. 0 TOBACCO USE 04/26/2016 CATE HERRERA WATER TREATMENT SPECIALIST Ot J44.9 CHRONIC OBSTRUCTIVE PULMONARY DISEASE, U 04/26/2016 CATE HERRERA WATER TREATMENT SPECIALIST Ot R06.02 SHORTNESS OF BREATH 04/26/2016 CATE HERRERA WATER TREATMENT SPECIALIST Ot R06.2 WHEEZING 04/26/2016 CATE HERRERA WATER TREATMENT SPECIALIST Ot R09.02 HYPOXEMIA 04/26/2016 CATE HERRERA WATER TREATMENT SPECIALIST Ot R91.1 SOLITARY PULMONARY NODULE 04/29/2016 JOSHUA CASTILLO MD Ot E78. 5 HYPERLIPIDEMIA, UNSPECIFIED 04/29/2016 JOSHUA CASTILLO MD Ot F41. 9 ANXIETY DISORDER, UNSPECIFIED 04/29/2016 JOSHUA CASTILLO MD Ot I10 ESSENTIAL (PRIMARY) HYPERTENSION 04/29/2016 JOSHUA CASTILLO MD Ot I25. 10 ATHSCL HEART DISEASE OF [place] CORONARY 04/29/2016 JOSHUA CASTILLO MD Ot R07. 89 OTHER CHEST PAIN 04/29/2016 JOSHUA CASTILLO MD Ot Z72. 0 TOBACCO USE 05/06/2016 CATE HERRERA WATER TREATMENT SPECIALIST Ot J44.9 CHRONIC OBSTRUCTIVE PULMONARY DISEASE, U 05/06/2016 CATE HERRERA WATER TREATMENT SPECIALIST Ot R06.02 SHORTNESS OF BREATH 05/06/2016 CATE HERRERA WATER TREATMENT SPECIALIST Ot R06.2 WHEEZING 05/06/2016 CATE HERRERA WATER TREATMENT SPECIALIST Ot R09.02 HYPOXEMIA 05/06/2016 CATE HERRERA WATER TREATMENT SPECIALIST Ot R91.1 SOLITARY PULMONARY NODULE 05/08/2016 JOSHUA CASTILLO MD Ot E78. 2 MIXED HYPERLIPIDEMIA 05/08/2016 JOSHUA CASTILLO MD Ot F41. 9 ANXIETY DISORDER, UNSPECIFIED 05/08/2016 JOSHUA CASTILLO MD Ot I10 ESSENTIAL (PRIMARY) HYPERTENSION 05/08/2016 JOSHUA CASTILLO MD Ot I25. 10 ATHSCL HEART DISEASE OF [place] CORONARY 05/08/2016 JOSHUA CASTILLO MD Ot R07. 89 OTHER CHEST PAIN 05/08/2016 JOSHUA CASTILLO MD Ot Z72. 0 TOBACCO USE 05/15/2016 JOSHUA CASTILLO MD Ot E78. 2 MIXED HYPERLIPIDEMIA 05/15/2016 JOSHUA CASTILLO MD Ot F41. 9 ANXIETY DISORDER, UNSPECIFIED 05/15/2016 JOSHUA CASTILLO MD Ot I10 ESSENTIAL (PRIMARY) HYPERTENSION 05/15/2016 JOSHUA CASTILLO MD Ot I25. 10 ATHSCL HEART DISEASE OF [place] CORONARY 05/15/2016 JOSHUA CASTILLO MD Ot R07. 89 OTHER CHEST PAIN 05/15/2016 JOSHUA CASTILLO MD Ot Z72. 0 TOBACCO USE 07/25/2016 OUMAR POWERS DO Ot E78.5 HYPERLIPIDEMIA, UNSPECIFIED 07/25/2016 OUMAR POWERS DO Ot 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, CIGARETTES, UNCOMPL 07/25/2016 PRIYA NIKKYI Ot F41.9 ANXIETY DISORDER, UNSPECIFIED 07/25/2016 POWERS DO OUMAR Ot I10 ESSENTIAL (PRIMARY) HYPERTENSION 07/25/2016 PRIYA BURDICK OUMAR Ot I25.10 ATHSCL HEART DISEASE OF [place] CORONARY 07/25/2016 PRIYA DO OUMAR Ot I73.9 PERIPHERAL VASCULAR DISEASE, UNSPECIFIED 07/25/2016 POWERSVIKAS BURDICK OUMAR Ot J44.1 CHRONIC OBSTRUCTIVE PULMONARY DISEASE W 07/25/2016 POWERS DO OUMAR Ot K21.9 GASTRO-ESOPHAGEAL REFLUX DISEASE WITHOUT 07/25/2016 POWERS DO OUMAR Ot R07.9 CHEST PAIN, UNSPECIFIED 07/25/2016 POWERSVIKAS BURDICK OUMAR Ot Z95.1 PRESENCE OF AORTOCORONARY BYPASS GRAFT 07/25/2016 POWERSVIKAS BURDICK OUMAR Ot Z95.5 PRESENCE OF CORONARY ANGIOPLASTY IMPLANT 07/25/2016 POWERSVIKAS BURDICK OUMAR Ot Z95.82 0 PERIPHERAL VASCULAR ANGIOPLASTY STATUS W 07/25/2016 POWERS DO OUMAR Ot Z99.81 DEPENDENCE ON SUPPLEMENTAL OXYGEN [...] TE BRONCHOSPASM 08/27/2016 Ot 786.2 COUGH 08/27/2016 JONATHAN CRANE, JOSHUA Rausch Ot 414. 00 [...] J44.9 CHRONIC OBSTRUCTIVE PULMONARY DISEASE, U 08/27/2016 JING HOLGUIN DO Ot M54.16 RADICULOPATHY, LUMBAR REGION 08/27/2016 YOUNG MCALLISTER Ot E78.2 MIXED HYPERLIPIDEMIA 08/27/2016 YOUNG MCALLISTER Ot I10 ESSENTIAL (PRIMARY) HYPERTENSION 08/27/2016 YOUNG MCALLISTER Ot I25.10 ATHSCL HEART DISEASE OF [place] CORONARY 08/27/2016 JOSHUA CASTILLO MD Ot E78. 2 MIXED HYPERLIPIDEMIA 08/27/2016 JOSHUA CASTILLO MD Ot F41. 9 ANXIETY DISORDER, UNSPECIFIED 08/27/2016 JOSHUA CASTILLO MD Ot I10 ESSENTIAL (PRIMARY) HYPERTENSION 08/27/2016 JOSHUA CASTILLO MD Ot I25. 10 ATHSCL HEART DISEASE OF [place] CORONARY 08/27/2016 JOSHUA CASTILLO MD Ot R07. 89 OTHER CHEST PAIN 08/27/2016 JOSHUA CASTILLO MD Ot Z72. 0 TOBACCO USE 08/27/2016 JOSHUA CASTILLO MD Ot E78. 5 HYPERLIPIDEMIA, UNSPECIFIED 08/27/2016 JOSHUA CASTILLO MD Ot F41. 9 ANXIETY DISORDER, UNSPECIFIED 08/27/2016 JOSHUA CASTILLO MD Ot I10 ESSENTIAL (PRIMARY) HYPERTENSION 08/27/2016 JOSHUA CASTILLO MD Ot I25. 10 ATHSCL HEART DISEASE OF [place] CORONARY 08/27/2016 JOSHUA CASTILLO MD Ot R07. 89 OTHER CHEST PAIN 08/27/2016 JOSHUA CASTILLO MD Ot Z72. 0 TOBACCO USE 08/27/2016 CATE HERRERA APRN Ot J44.9 CHRONIC OBSTRUCTIVE PULMONARY DISEASE, U 08/27/2016 CATE HERRERA WATER TREATMENT SPECIALIST Ot R06.02 SHORTNESS OF BREATH 08/27/2016 CATE HERRERA APRN Ot R06.2 WHEEZING 08/27/2016 CATE HERRERA APRN Ot R09.02 HYPOXEMIA 08/27/2016 CATE HERRERA APRN Ot R91.1 SOLITARY PULMONARY NODULE 08/28/2016 CATE HERRERA APRN Ot J44.0 CHRONIC OBSTRUCTIVE PULMON DISEASE W ACU 08/28/2016 JAVIER, CATE E WATER TREATMENT SPECIALIST Ot R06.02 SHORTNESS OF BREATH 08/28/2016 CATE HERRERA WATER TREATMENT SPECIALIST Ot R06.2 WHEEZING 08/28/2016 CATE HERRERA WATER TREATMENT SPECIALIST Ot R09.02 HYPOXEMIA 08/28/2016 CATE HERRERA WATER TREATMENT SPECIALIST Ot R91.1 SOLITARY PULMONARY NODULE 08/28/2016 CATE HERRERA WATER TREATMENT SPECIALIST Ot Z72.0 TOBACCO USE 09/18/2016 CATE HERRERA WATER TREATMENT SPECIALIST Ot J44.0 CHRONIC OBSTRUCTIVE PULMON DISEASE W ACU 09/18/2016 CATE HERRERA WATER TREATMENT SPECIALIST Ot R06.02 SHORTNESS OF BREATH 09/18/2016 CATE HERRERA WATER TREATMENT SPECIALIST Ot R06.2 WHEEZING 09/18/2016 CATE HERRERA WATER TREATMENT SPECIALIST Ot R09.02 HYPOXEMIA 09/18/2016 CATE HERRERA WATER TREATMENT SPECIALIST Ot R91.1 SOLITARY PULMONARY NODULE 09/18/2016 CATE HERRERA WATER TREATMENT SPECIALIST Ot Z72.0 TOBACCO USE 09/26/2016 CATE HERRERA WATER TREATMENT SPECIALIST Ot J44.0 CHRONIC OBSTRUCTIVE PULMON DISEASE W ACU 09/26/2016 CATE HERRERA WATER TREATMENT SPECIALIST Ot R06.02 SHORTNESS OF BREATH 09/26/2016 CATE HERRERA WATER TREATMENT SPECIALIST Ot R06.2 WHEEZING 09/26/2016 CATE HERRERA WATER TREATMENT SPECIALIST Ot R09.02 HYPOXEMIA 09/26/2016 CATE HERRERA WATER TREATMENT SPECIALIST Ot R91.1 SOLITARY PULMONARY NODULE 09/26/2016 CATE HERRERA WATER TREATMENT SPECIALIST Ot Z72.0 TOBACCO USE 10/13/2016 Ot 272.4 [...] TE BRONCHOSPASM 10/13/2016 Ot 786.2 COUGH 10/13/2016 JOSHUA CASTILLO MD Ot 414. 00 CORON ATHEROSCLER NOS TYPE VESSEL, NATIV 10/13/2016 JOSHUA CASTILLO MD Ot 786. 50 CHEST PAIN NOS 10/13/2016 XIMENA QUINONES DO Ot 300. 00 ANXIETY STATE NOS 10/13/2016 XIMENA QUINONES DO Ot 414. 00 CORON ATHEROSCLER NOS TYPE VESSEL, NATIV 10/13/2016 XIMENA QUINONES DO Ot 496 CHR AIRWAY OBSTRUCT NEC 10/13/2016 [...] J44.9 CHRONIC OBSTRUCTIVE PULMONARY DISEASE, U 10/13/2016 JING HOLGUIN DO Ot M54.16 RADICULOPATHY, LUMBAR REGION 10/13/2016 YOUNG MCALLISTER Ot E78.2 MIXED HYPERLIPIDEMIA 10/13/2016 YOUNG MCALLISTER Ot I10 ESSENTIAL (PRIMARY) HYPERTENSION 10/13/2016 YOUNG MCALLISTER Ot I25.10 ATHSCL HEART DISEASE OF [place] CORONARY 10/13/2016 JOSHUA CASTILLO MD Ot E78. 2 MIXED HYPERLIPIDEMIA 10/13/2016 JOSHUA CASTILLO MD Ot F41. 9 ANXIETY DISORDER, UNSPECIFIED 10/13/2016 JOSHUA CASTILLO MD Ot I10 ESSENTIAL (PRIMARY) HYPERTENSION 10/13/2016 JOSHUA CASTILLO MD Ot I25. 10 ATHSCL HEART DISEASE OF [place] CORONARY 10/13/2016 JOSHUA CASTILLO MD Ot R07. 89 OTHER CHEST PAIN 10/13/2016 JOSHUA CASTILLO MD Ot Z72. 0 TOBACCO USE 10/13/2016 JOSHUA CASTILLO MD Ot E78. 5 HYPERLIPIDEMIA, UNSPECIFIED 10/13/2016 JOSHUA CASTILLO MD Ot F41. 9 ANXIETY DISORDER, UNSPECIFIED 10/13/2016 JOSHUA CASTILLO MD Ot I10 ESSENTIAL (PRIMARY) HYPERTENSION 10/13/2016 JOSHUA CASTILLO MD Ot I25. 10 ATHSCL HEART DISEASE OF [place] CORONARY 10/13/2016 JOSHUA CASTILLO MD Ot R07. 89 OTHER CHEST PAIN 10/13/2016 JOSHUA CASTILLO MD Ot Z72. 0 TOBACCO USE 10/13/2016 CATE HERRERA APRN Ot J44.9 CHRONIC OBSTRUCTIVE PULMONARY DISEASE, U 10/13/2016 CATE HERRERA APRN Ot R06.02 SHORTNESS OF BREATH 10/13/2016 CATE HERRERA APRN Ot R06.2 WHEEZING 10/13/2016 CATE HERRERA WATER TREATMENT SPECIALIST Ot R09.02 HYPOXEMIA 10/13/2016 CATE HERRERA WATER TREATMENT SPECIALIST Ot R91.1 SOLITARY PULMONARY NODULE 10/13/2016 CATE HERRERA WATER TREATMENT SPECIALIST Ot J44.0 CHRONIC OBSTRUCTIVE PULMON DISEASE W ACU 10/13/2016 CATE HERRERA WATER TREATMENT SPECIALIST Ot R06.02 SHORTNESS OF BREATH 10/13/2016 CATE HERRERA WATER TREATMENT SPECIALIST Ot R06.2 WHEEZING 10/13/2016 CATE HERRERA WATER TREATMENT SPECIALIST Ot R09.02 HYPOXEMIA 10/13/2016 CATE HERRERA WATER TREATMENT SPECIALIST Ot R91.1 SOLITARY PULMONARY NODULE 10/13/2016 CATE HERRERA WATER TREATMENT SPECIALIST Ot Z72.0 TOBACCO USE 10/13/2016 HERBERT ALANIS MD Ot D69.6 THROMBOCYTOPENIA, UNSPECIFIED 10/13/2016 HERBERT ALANIS MD Ot E78.5 HYPERLIPIDEMIA, UNSPECIFIED 10/13/2016 HERBERT ALANIS MD Ot F17.210 NICOTINE DEPENDENCE, CIGARETTES, UNCOMPL 10/13/2016 HERBERT ALANIS MD Ot F41.9 ANXIETY DISORDER, UNSPECIFIED 10/13/2016 HERBERT ALANIS MD Ot I11.0 HYPERTENSIVE HEART DISEASE WITH HEART FA 10/13/2016 HERBERT ALANIS MD Ot I25.110 ATHSCL HEART DISEASE OF [place] COR ART W 10/13/2016 HERBERT ALANIS MD Ot I25.5 ISCHEMIC CARDIOMYOPATHY 10/13/2016 HERBERT ALANIS MD Ot I25.710 ATHSCL AUTOLOGOUS VEIN CABG W [...] PERSONAL HISTORY OF OTHER VENOUS THROMBO 10/13/2016 SANDNESS MD, HERBERT M Ot Z95.1 PRESENCE OF AORTOCORONARY BYPASS GRAFT 10/13/2016 HERBERT ALANIS MD Ot Z95.5 PRESENCE OF CORONARY ANGIOPLASTY IMPLANT 10/13/2016 HERBERT ALANIS MD Ot Z99.81 DEPENDENCE ON SUPPLEMENTAL OXYGEN 01/10/2017 Promise Moore A 807.01 CLOSED FRACTURE OF ONE RIB 01/10/2017 Promise Moore W E888.1 FALL RESULTING IN STRIKING AGAINST OTHER OBJECT 01/10/2017 Promise Moore A S22.32XA FRACTURE OF ONE RIB, LEFT SIDE, INIT FOR CLOS FX 01/10/2017 Promise Moore W W01.198A FALL SAME LEV FROM SLIP/TRIP W STRIKE AGNST OTH OBJECT, INIT 02/12/2017 LILIANA CELSO R COFFEE ROASTER-C Ot 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5 PRESENCE OF CORONARY ANGIOPLASTY IMPLANT 03/23/2017 OUMAR POWERS DO Ot Z99.81 DEPENDENCE ON SUPPLEMENTAL OXYGEN 05/06/2017 MARTIN GRULLNO MD Ot A39 .0 MENINGOCOCCAL MENINGITIS 05/06/2017 [...] MD Ot I25.10 ATHSCL HEART DISEASE OF [place] CORONARY 05/06/2017 MARTIN GRULLON MD Ot I25 .2 OLD MYOCARDIAL INFARCTION 05/06/2017 MARTIN GRULLON MD Ot I73 .9 PERIPHERAL VASCULAR DISEASE, UNSPECIFIED 05/06/2017 MARTIN GRULLON MD Ot J39 .8 OTHER SPECIFIED DISEASES OF UPPER RESPIR 05/06/2017 MARTIN GRULLON MD Ot J44 .1 CHRONIC OBSTRUCTIVE PULMONARY DISEASE W 05/06/2017 ODGERS MD, MARTIN K Ot K21 .9 GASTRO-ESOPHAGEAL REFLUX DISEASE WITHOUT 05/06/2017 MARTIN GRULLON MD Ot R09.02 HYPOXEMIA 05/06/2017 MARTIN [...] DO Ot I25.10 ATHSCL HEART DISEASE OF [place] CORONARY 05/09/2017 OUMAR POWERS DO Ot I25.2 [...] 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, CIGARETTES, UNCOMPL 05/12/2017 NIKKY POWERS DOI Ot F20.9 SCHIZOPHRENIA, UNSPECIFIED 05/12/2017 OUMAR POWERS DO Ot F32.9 MAJOR DEPRESSIVE DISORDER, SINGLE EPISOD 05/12/2017 OUMAR POWERS DO Ot G47.9 SLEEP DISORDER, UNSPECIFIED 05/12/2017 NIKKY POWERS DOI Ot I10 ESSENTIAL (PRIMARY) HYPERTENSION 05/12/2017 OUMAR POWERS DO Ot I25.10 ATHSCL HEART DISEASE OF [place] CORONARY 05/12/2017 OUMAR POWERS DO Ot I25.2 [...] K21.9 GASTRO-ESOPHAGEAL REFLUX DISEASE WITHOUT 05/12/2017 OUMAR POWERS DO Ot M19.91 PRIMARY OSTEOARTHRITIS, UNSPECIFIED SITE 05/12/2017 OUMAR POWERS DO Ot R29.6 REPEATED FALLS 05/12/2017 OUMAR POWERS DO Ot Z86.71 8 PERSONAL HISTORY OF OTHER VENOUS THROMBO 05/12/2017 OUMAR POWERS DO Ot Z87.11 PERSONAL HISTORY OF PEPTIC ULCER DISEASE 05/12/2017 OUMAR POWERS DO Ot Z91.81 HISTORY OF FALLING 05/12/2017 OUMAR POWERS DO Ot Z95.1 PRESENCE OF [...] T78.3 ETHEL ONEUROTIC EDEMA 06/05/2017 JOSHUA CASTILLO MD, Ot E78. 2 MIXED HYPERLIPIDEMIA 06/05/2017 JOSHUA CASTILLO MD Ot I11. 0 HYPERTENSIVE HEART DISEASE WITH HEART FA 06/05/2017 JOSHUA CASTILLO MD Ot I25. 10 ATHSCL HEART DISEASE OF [place] CORONARY 06/05/2017 JOSHUA CASTILLO MD Ot I50. 9 HEART FAILURE, UNSPECIFIED 06/13/2017 Juan Luis 272.4 OTHER AND UNSPECIFIED HYPERLIPIDEMIA 06/13/2017 Juan Luis 401.0 MALIGNANT ESSENTIAL HYPERTENSION 06/13/2017 Juan Luis 414.01 CORONARY ATHEROSCLEROSIS OF [place] CORONARY ARTERY 06/13/2017 Juan Luis 491.20 OBSTRUCTIVE CHRONIC BRONCHITIS, WITHOUT 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 06/13/2017 Juan Luis A 786.5 06/13/2017 Juan Luis E78.5 HYPERLIPIDEMIA, UNSPECIFIED 06/13/2017 Juan Luis I10 ESSENTIAL (PRIMARY) HYPERTENSION 06/13/2017 Juan Luis I25.10 ATHSCL HEART DISEASE OF [place] CORONARY ARTERY W/O ANG PCTRS 06/13/2017 Juan Luis J44.9 CHRONIC OBSTRUCTIVE PULMONARY DISEASE, UNSPECIFIED 06/13/2017 Juan Luis R07.89 OTHER CHEST PAIN 06/17/2017 JOSHUA CASTILLO MD Ot E78. 2 MIXED HYPERLIPIDEMIA 06/17/2017 JOSHUA CASTILLO MD Ot I11. 0 HYPERTENSIVE HEART DISEASE WITH HEART FA 06/17/2017 JOSHUA CASTILLO MD Ot I25. 10 ATHSCL HEART DISEASE OF [place] CORONARY 06/17/2017 JOSHUA ACSTILLO MD Ot I50. 9 HEART FAILURE, UNSPECIFIED [...] A M62.81 MUS YELITZA WEAKNESS (GENERALIZED) 06/25/2017 Judi Zepeda A 922.1 CONTUSION OF CHEST WALL 06/25/2017 Judi Zepeda A S20.211A CONTUSION OF RIGHT FRONT WALL OF THORAX, INITIAL ENCOUNTER 06/26/2017 JOSHUA CASTILLO MD Ot E78. 2 MIXED HYPERLIPIDEMIA 06/26/2017 JOSHUA CASTILLO MD Ot I11. 0 HYPERTENSIVE HEART DISEASE WITH HEART FA 06/26/2017 JOSHUA CASTILLO MD Ot I25. 10 ATHSCL HEART DISEASE OF [place] CORONARY 06/26/2017 JOSHUA CASTILLO MD Ot I50. 9 HEART FAILURE, UNSPECIFIED 07/08/2017 JOSHUA CASTILLO MD Ot E78. 2 MIXED HYPERLIPIDEMIA 07/08/2017 JOSHUA CASTILLO MD Ot I11. 0 HYPERTENSIVE HEART DISEASE WITH HEART FA 07/08/2017 JOSHUA CASTILLO MD Ot I25. 10 ATHSCL HEART DISEASE OF [place] CORONARY 07/08/2017 JOSHUA CASTILLO MD Ot I50. 9 HEART FAILURE, UNSPECIFIED 07/08/2017 JOSHUA CASTILLO MD Ot E78. 2 MIXED HYPERLIPIDEMIA 07/08/2017 JOSHUA CASTILLO MD Ot I11. 0 HYPERTENSIVE HEART DISEASE WITH HEART FA 07/08/2017 JOSHUA CASTILLO MD Ot I25. 10 ATHSCL HEART DISEASE OF [place] CORONARY 07/08/2017 JOSHUA CASTILLO MD Ot I50. 9 HEART FAILURE, UNSPECIFIED 07/16/2017 W 461.9 ACUT E SINUSITIS, UNSPECIFIED 07/16/2017 W 491.21 OBS TRUCTIVE CHRONIC BRONCHITIS WITH (ACUTE) 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 07/16/2017 W J01.90 ACU TE SINUSITIS, UNSPECIFIED 07/16/2017 W J44.1 MAILROOM MANAGER JIMMIE OBSTRUCTIVE PULMONARY DISEASE WITH (ACUTE) 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 07/18/2017 JOSHUA CASTILLO MD Ot E78. 2 MIXED HYPERLIPIDEMIA 07/18/2017 JOSHUA CASTILLO MD Ot I11. 0 HYPERTENSIVE HEART DISEASE WITH HEART FA 07/18/2017 JOSHUA CASTILLO MD Ot I25. 10 ATHSCL HEART DISEASE OF [place] CORONARY 07/18/2017 JOSHUA CASTILLO MD Ot I50. 9 HEART FAILURE, UNSPECIFIED 07/20/2017 Juan Luis W 272.4 OTHER AND UNSPECIFIED HYPERLIPIDEMIA 07/20/2017 Juan Luis 401.0 MALIGNANT ESSENTIAL HYPERTENSION 07/20/2017 Juan Luis 414.01 CORONARY ATHEROSCLEROSIS OF [place] CORONARY ARTERY 07/20/2017 Juan Luis 491.20 07/20/2017 Juan Luis 786.5 CHEST PAIN 07/20/2017 Juan Luis E78.5 HYPERLIPIDEMIA, UNSPECIFIED 07/20/2017 Juan Luis I10 ESSENTIAL (PRIMARY) HYPERTENSION 07/20/2017 Juan Luis I25.10 ATHSCL HEART DISEASE OF [place] CORONARY ARTERY W/O ANG PCTRS 07/20/2017 Juan [...] OUMAR Ot I25.10 ATHSCL HEART DISEASE OF [place] CORONARY 07/29/2017 POWERS DO, OUMAR Ot I25.5 ISCHEMIC CARDIOMYOPATHY 07/29/2017 POWERS DO, OUMAR Ot I27.20 PULMONARY HYPERTENSION, UNSPECIFIED 07/29/2017 PRIYA BURDICK OUMAR Ot I50.22 CHRONIC SYSTOLIC (CONGESTIVE) HEART FAIL 07/29/2017 PRIYA BURDICK OUMAR Ot I73.9 PERIPHERAL VASCULAR [...] K21.9 GASTRO-ESOPHAGEAL REFLUX DISEASE WITHOUT 07/29/2017 PRIYA BURDICK OUMAR Ot R07.89 OTHER CHEST PAIN 07/29/2017 PRIYA BURDICK OUMAR Ot Z95.1 PRESENCE OF AORTOCORONARY BYPASS GRAFT 07/29/2017 PRIYA BURDICK OUMAR Ot Z95.5 PRESENCE OF CORONARY ANGIOPLASTY IMPLANT 07/29/2017 PRIYA BURDICK OUMAR Ot Z99.81 DEPENDENCE ON SUPPLEMENTAL OXYGEN 07/30/2017 PRIYA BURDICK OUMAR Ot E78.5 HYPERLIPIDEMIA, UNSPECIFIED 07/30/2017 PRIYA DO OUMAR Ot 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, CIGARETTES, UNCOMPL 07/30/2017 PRIYA BURDICK OUMAR Ot F32.9 MAJOR DEPRESSIVE DISORDER, SINGLE EPISOD 07/30/2017 PRIYA BURDICK OUMAR Ot F41.9 ANXIETY DISORDER, UNSPECIFIED 07/30/2017 PRIYA BURDICK OUMAR Ot I11.0 HYPERTENSIVE HEART DISEASE WITH HEART FA 07/30/2017 PRIYA BURDICK OUMAR Ot I25.10 ATHSCL HEART DISEASE OF [place] CORONARY 07/30/2017 PRIYA BURDICK OUMAR Ot I25.5 ISCHEMIC CARDIOMYOPATHY 07/30/2017 PRIYA BURDICK OUMAR Ot I27.20 PULMONARY HYPERTENSION, UNSPECIFIED 07/30/2017 PRIYA BURDICK OUMAR Ot I50.22 CHRONIC SYSTOLIC (CONGESTIVE) HEART FAIL 07/30/2017 PRIYA BURDICK OUMAR Ot I73.9 PERIPHERAL VASCULAR DISEASE, UNSPECIFIED 07/30/2017 PRIYA BURDICK OUMAR Ot J18.9 PNEUMONIA, UNSPECIFIED ORGANISM 07/30/2017 PRIYA BURDICK OUMAR Ot J44.0 CHRONIC OBSTRUCTIVE PULMON DISEASE W ACU 07/30/2017 PRIYA BURDICK OUMAR Ot J44.1 CHRONIC OBSTRUCTIVE PULMONARY DISEASE W 07/30/2017 PRIYA BURDICK OUMAR Ot J96.22 ACUTE AND CHRONIC RESPIRATORY FAILURE [place] 07/30/2017 PRIYA BURDICK OUMAR Ot K21.9 GASTRO-ESOPHAGEAL REFLUX DISEASE WITHOUT 07/30/2017 PRIYA BURDICK OUMAR Ot R07.89 OTHER CHEST PAIN 07/30/2017 NIKKY POWERS DOI Ot Z95.1 PRESENCE OF AORTOCORONARY BYPASS GRAFT 07/30/2017 NIKKY POWERS DOI Ot Z95.5 PRESENCE OF CORONARY ANGIOPLASTY IMPLANT 07/30/2017 PRIYA BURDICK OUMAR Ot Z99.81 DEPENDENCE ON SUPPLEMENTAL OXYGEN 07/30/2017 NIKKY POWERS DOI Ot E78.5 HYPERLIPIDEMIA, UNSPECIFIED 07/30/2017 PRIYA BURDICK OUMAR Ot 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, CIGARETTES, UNCOMPL 07/30/2017 PRIYA BURDICK OUMAR Ot F32.9 MAJOR DEPRESSIVE DISORDER, SINGLE EPISOD 07/30/2017 PRIYA BURDICK OUMAR Ot F41.9 ANXIETY DISORDER, UNSPECIFIED 07/30/2017 PRIYA BURDICK OUMAR Ot I11.0 HYPERTENSIVE HEART DISEASE WITH HEART FA 07/30/2017 PRIYA BURDICK OUMAR Ot I25.10 ATHSCL HEART DISEASE OF [place] CORONARY 07/30/2017 PRIYA BURDICK OUMAR Ot I25.5 ISCHEMIC CARDIOMYOPATHY 07/30/2017 PRIYA BURDICK OUMAR Ot I27.20 PULMONARY HYPERTENSION, UNSPECIFIED 07/30/2017 PRIYA BURDICK OUMAR Ot I50.22 CHRONIC SYSTOLIC (CONGESTIVE) HEART FAIL 07/30/2017 NIKKY POWERS DOI Ot I73.9 PERIPHERAL VASCULAR DISEASE, UNSPECIFIED 07/30/2017 PRIYA BURDICK OUMAR Ot J18.9 PNEUMONIA, UNSPECIFIED ORGANISM 07/30/2017 PRIYA BURDICK OUMAR Ot J44.0 CHRONIC OBSTRUCTIVE PULMON DISEASE W ACU 07/30/2017 PRIYA BURDICK OUMAR Ot J44.1 CHRONIC OBSTRUCTIVE PULMONARY DISEASE W 07/30/2017 PRIYA BURDICK OUMAR Ot J96.22 ACUTE AND CHRONIC RESPIRATORY FAILURE [place] 07/30/2017 PRIYA BURDICK OUMAR Ot K21.9 GASTRO-ESOPHAGEAL REFLUX DISEASE WITHOUT 07/30/2017 PRIYA BURDICK OUMAR Ot R07.89 OTHER CHEST PAIN 07/30/2017 PRIYA BURDICK OUMAR Ot Z95.1 PRESENCE OF AORTOCORONARY BYPASS GRAFT 07/30/2017 NIKKY POWERS DOI Ot Z95.5 PRESENCE OF CORONARY ANGIOPLASTY IMPLANT 07/30/2017 PRIYA BURDICK OUMAR Ot Z99.81 DEPENDENCE ON SUPPLEMENTAL OXYGEN 07/31/2017 PRIYA BURDICK OUMAR Ot E78.5 HYPERLIPIDEMIA, UNSPECIFIED 07/31/2017 PRIYA BURDICK OUMAR Ot 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, CIGARETTES, UNCOMPL 07/31/2017 PRIYA BURDICK OUMAR Ot F32.9 MAJOR DEPRESSIVE DISORDER, SINGLE EPISOD 07/31/2017 PRIYA BURDICK OUMAR Ot F41.9 ANXIETY DISORDER, UNSPECIFIED 07/31/2017 PRIYA BURDICK OUMAR Ot I11.0 HYPERTENSIVE HEART DISEASE WITH HEART FA 07/31/2017 PRIYA BURDICK OUMAR Ot I25.10 ATHSCL HEART DISEASE OF [place] CORONARY 07/31/2017 PRIYA BURDICK OUMAR Ot I25.5 ISCHEMIC CARDIOMYOPATHY 07/31/2017 PRIYA BURDICK OUMAR Ot I27.20 PULMONARY HYPERTENSION, UNSPECIFIED 07/31/2017 PRIYA BURDICK OUMAR Ot I50.22 CHRONIC SYSTOLIC (CONGESTIVE) HEART FAIL 07/31/2017 PRIYA BURDICK OUMAR Ot I73.9 PERIPHERAL VASCULAR DISEASE, UNSPECIFIED 07/31/2017 PRIYA BURDICK OUMAR Ot J18.9 PNEUMONIA, UNSPECIFIED ORGANISM 07/31/2017 PRIYA BURDIKC OUMAR Ot J44.0 CHRONIC OBSTRUCTIVE PULMON DISEASE W ACU 07/31/2017 PRIYA BURDICK OUMAR Ot J44.1 CHRONIC OBSTRUCTIVE PULMONARY DISEASE W 07/31/2017 PRIYA BURDICK OUMAR Ot J96.22 ACUTE AND CHRONIC RESPIRATORY FAILURE [place] 07/31/2017 PRIYA BURDICK OUMAR Ot K21.9 GASTRO-ESOPHAGEAL REFLUX DISEASE WITHOUT 07/31/2017 PRIYA BURDICK OUMAR Ot R07.89 OTHER CHEST PAIN 07/31/2017 PRIYA BURDICK OUMAR Ot Z23 ENCOUNTER FOR IMMUNIZATION 07/31/2017 NIKKY POWERS DOI Ot Z95.1 PRESENCE OF AORTOCORONARY BYPASS GRAFT 07/31/2017 NIKKY POWERS DOI Ot Z95.5 PRESENCE OF CORONARY ANGIOPLASTY IMPLANT 07/31/2017 NIKKY POWERS DOI Ot Z99.81 DEPENDENCE ON SUPPLEMENTAL OXYGEN 09/15/2017 JUAREZ TOLENTINO MD, Ot E78. 00 PURE HYPERCHOLESTEROLEMIA, UNSPECIFIED 09/15/2017 [...] MD, Ot I25.119 ATHSCL HEART DISEASE OF [place] COR ART W 09/15/2017 JUAREZ TOLENTINO MD, [...] 09/15/2017 JUAREZ TOLENTINO MD, Ot Z79.899 OTHER MANAGER CUSTOMS (CURRENT) DRUG THERAPY 09/15/2017 JUAREZ TOLENTINO MD, Ot Z86.718 PERSONAL HISTORY OF OTHER VENOUS THROMBO 09/15/2017 JUAREZ TOLENTINO MD Ot Z88. 7 ALLERGY STATUS TO SERUM [...] APRN Ot J18.9 PNEUMONIA, UNSPECIFIED ORGANISM 09/17/2017 SHABBIR HERRERAINE Mitzi WATER TREATMENT SPECIALIST Ot J44.9 CHRONIC OBSTRUCTIVE PULMONARY DISEASE, U 09/17/2017 JAVIER CATE E WATER TREATMENT SPECIALIST Ot R91.8 OTHER NONSPECIFIC ABNORMAL FINDING OF [place] 09/17/2017 JAVIER CATE Mitzi WATER TREATMENT SPECIALIST Ot Z72.0 TOBACCO USE 09/23/2017 W 491.21 OBS TRUCTIVE CHRONIC BRONCHITIS WITH (ACUTE) 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 09/23/2017 W J44.1 MAILROOM MANAGER JIMMIE OBSTRUCTIVE PULMONARY DISEASE WITH (ACUTE) 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 10/07/2017 CATE HERRERA WATER TREATMENT SPECIALIST Ot J18.9 PNEUMONIA, UNSPECIFIED ORGANISM 10/07/2017 JAVIER, CATE Mitzi WATER TREATMENT SPECIALIST Ot J44.9 CHRONIC OBSTRUCTIVE PULMONARY DISEASE, U 10/07/2017 JAVIER, CATE Mitzi WATER TREATMENT SPECIALIST Ot R91.8 OTHER NONSPECIFIC ABNORMAL FINDING OF [place] 10/07/2017 JAVIER CATE Mitzi WATER TREATMENT SPECIALIST Ot Z72.0 TOBACCO USE 10/07/2017 W 719.41 [...] E78 .5 HYPERLIPIDEMIA, UNSPECIFIED 10/15/2017 MARTIN GRULLON MD Ot F17.210 NICOTINE DEPENDENCE, CIGARETTES, UNCOMPL 10/15/2017 [...] DISEASE WITH HEART FA 10/15/2017 MARTIN GRULLON MD Ot I25.119 ATHSCL HEART DISEASE OF [place] COR ART W 10/15/2017 MARTIN GRULLON MD, Ot I25 .2 OLD MYOCARDIAL INFARCTION 10/15/2017 MARTIN GRULLON MD, Ot I25 .5 ISCHEMIC CARDIOMYOPATHY 10/15/2017 MARTIN GRULLON MD Ot 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 10/15/2017 MARTIN GRULLON MD Ot I27.20 PULMONARY HYPERTENSION, UNSPECIFIED 10/15/2017 MARTIN GRULLON MD Ot I50.22 CHRONIC SYSTOLIC (CONGESTIVE) HEART FAIL 10/15/2017 MARTIN GRULLON MD Ot I65.29 OCCLUSION AND STENOSIS OF UNSPECIFIED CA 10/15/2017 MARTIN GRULLON MD Ot I73 .9 PERIPHERAL VASCULAR DISEASE, UNSPECIFIED 10/15/2017 MARTIN GRULLON MD, Ot J44 .1 CHRONIC OBSTRUCTIVE PULMONARY DISEASE W 10/15/2017 MARTIN GRULLON MD Ot K21 .9 GASTRO-ESOPHAGEAL REFLUX DISEASE WITHOUT 10/15/2017 MARTIN GRULLON MD Ot M19.91 PRIMARY OSTEOARTHRITIS, UNSPECIFIED SITE 10/15/2017 MARTIN GRULLON MD Ot R07.81 PLEURODYNIA 10/15/2017 MARTIN GRULLON MD Ot Z87.11 PERSONAL HISTORY OF PEPTIC [...] RTROPHY OF NASAL TURBINATES 10/22/2017 W J44.1 MAILROOM MANAGER JIMMIE OBSTRUCTIVE PULMONARY DISEASE WITH (ACUTE) 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 10/28/2017 W 112.0 CAND IDIASIS OF MOUTH 10/28/2017 W 491.21 OBS TRUCTIVE CHRONIC BRONCHITIS WITH (ACUTE) 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 10/28/2017 W B37.0 CAND IDAL STOMATITIS 10/28/2017 W J44.1 MAILROOM MANAGER JIMMIE OBSTRUCTIVE PULMONARY DISEASE WITH (ACUTE) 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 11/15/2017 ANTOINETTE SANDHU MD Ot E78.00 PURE HYPERCHOLESTEROLEMIA, UNSPECIFIED 11/15/2017 ANTOINETTE SANDHU MD Ot F17.210 NICOTINE DEPENDENCE, CIGARETTES, UNCOMPL 11/15/2017 ANTOINETTE SANDHU MD Ot F20.9 SCHIZOPHRENIA, UNSPECIFIED 11/15/2017 ANTOINETTE SANDHU MD Ot F32.9 MAJOR DEPRESSIVE DISORDER, SINGLE EPISOD 11/15/2017 ANTOINETTE SANDHU MD Ot I10 ESSENTIAL (PRIMARY) HYPERTENSION 11/15/2017 ANTOINETTE SANDHU MD, Ot I25.10 ATHSCL HEART DISEASE OF [place] CORONARY 11/15/2017 ANTOINETTE SANDHU MD, Ot I25.2 OLD MYOCARDIAL INFARCTION 11/15/2017 ANTOINETTE SANDHU MD, Ot J44.1 CHRONIC OBSTRUCTIVE PULMONARY DISEASE W 11/15/2017 ANTOINETTE SANDHU MD, Ot K21.9 GASTRO-ESOPHAGEAL REFLUX DISEASE WITHOUT 11/15/2017 ANTOINETTE SANDHU MD, Ot R07.9 CHEST PAIN, UNSPECIFIED 11/15/2017 ANTOINETTE SANDHU MD, Ot Z79.51 MANAGER CUSTOMS (CURRENT) USE OF INHALED STERO 11/15/2017 ANTOINETTE SANDHU MD, Ot Z79.52 SKILLED NURSING (CURRENT) USE OF SYSTEMIC STER 11/15/2017 ANTOINETTE SANDHU MD, Ot Z79.82 SKILLED NURSING (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 11/15/2017 ANTOINETTE SANDHU MD, Ot Z82.49 FAMILY HX OF ISCHEM HEART DIS AND OTH DI 11/15/2017 ANTOINETTE SANDHU MD Ot Z86.718 PERSONAL HISTORY OF OTHER VENOUS THROMBO 11/15/2017 ANTOINETTE SANDHU MD Ot Z87.19 PERSONAL HISTORY OF OTHER DISEASES OF TH 11/15/2017 ANTOINETTE SANDHU MD Ot Z88.7 ALLERGY STATUS TO SERUM AND VACCINE STAT 11/15/2017 ANTOINETTE SANDHU MD, Ot Z88.8 ALLERGY STATUS TO [facility] DRUG/MEDS/BIOL SUB 11/15/2017 ANTOINETTE SANDHU MD Ot [...] NICOTINE DEPENDENCE, CIGARETTES, UNCOMPL 11/17/2017 ANTOINETTE SANDHU MD, Ot F20.9 SCHIZOPHRENIA, UNSPECIFIED 11/17/2017 ANTOINETTE SANDHU MD, Ot F32.9 MAJOR DEPRESSIVE DISORDER, SINGLE EPISOD 11/17/2017 ANTOINETTE SANDHU MD Ot I10 ESSENTIAL (PRIMARY) HYPERTENSION 11/17/2017 ANTOINETTE SANDHU MD, Ot I25.10 ATHSCL HEART DISEASE OF [place] CORONARY 11/17/2017 ANTOINETTE SANDHU MD, Ot I25.2 OLD MYOCARDIAL INFARCTION 11/17/2017 ANTOINETTE SANDHU MD, Ot J44.1 CHRONIC OBSTRUCTIVE PULMONARY DISEASE W 11/17/2017 ANTOINETTE SANDHU MD, Ot K21.9 GASTRO-ESOPHAGEAL REFLUX DISEASE WITHOUT 11/17/2017 ANTOINETTE SANDHU MD, Ot R07.9 CHEST PAIN, UNSPECIFIED 11/17/2017 ANTOINETTE SANDHU MD, Ot Z79.51 MANAGER CUSTOMS (CURRENT) USE OF INHALED STERO 11/17/2017 ANTOINETTE SANDHU MD, Ot Z79.52 MANAGER CUSTOMS (CURRENT) USE OF SYSTEMIC STER 11/17/2017 ANTOINETTE SANDHU MD, Ot Z79.82 SKILLED NURSING (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 11/17/2017 ANTOINETTE SANDHU MD, Ot Z82.49 FAMILY HX OF ISCHEM HEART DIS AND OTH DI 11/17/2017 ANTOINETTE SANDHU MD Ot Z86.718 PERSONAL HISTORY OF OTHER VENOUS THROMBO 11/17/2017 ANTOINETTE SANDHU MD Ot Z87.19 PERSONAL HISTORY OF OTHER DISEASES OF TH 11/17/2017 ANTOINETTE SANDHU MD, Ot Z88.7 ALLERGY STATUS TO SERUM AND VACCINE STAT 11/17/2017 ANTOINETTE SANDHU MD Ot Z88.8 ALLERGY STATUS TO OT DRUG/MEDS/BIOL SUB 11/17/2017 ANTOINETTE SADNHU MD, Ot Z90.89 ACQUIRED ABSENCE OF OTHER [...] SPECIFIED PERIPHERAL VASCULAR DISEASES 12/02/2017 W J44.1 MAILROOM MANAGER JIMMIE OBSTRUCTIVE PULMONARY DISEASE WITH (ACUTE) 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 12/02/2017 W J44.9 MAILROOM MANAGER JIMMIE OBSTRUCTIVE PULMONARY DISEASE, UNSPECIFIED 12/02/2017 W R26.89 OT ER ABNORMALITIES OF GAIT AND MOBILITY 12/05/2017 [...] CORON ATHEROSCLER NOS TYPE VESSEL, NATIV 02/10/2018 JONI DO, XIMENA M Ot 496 CHR AIRWAY OBSTRUCT NEC 02/10/2018 [...] MCALLISTER Ot I25.10 ATHSCL HEART DISEASE OF [place] CORONARY 02/10/2018 JOSHUA CASTILLO MD Ot E78. 2 MIXED HYPERLIPIDEMIA 02/10/2018 JOSHUA CASTILLO MD Ot F41. 9 ANXIETY DISORDER, UNSPECIFIED 02/10/2018 JOSHUA CASTILLO MD Ot I10 ESSENTIAL (PRIMARY) HYPERTENSION 02/10/2018 JOSHUA CASTILLO MD Ot I25. 10 ATHSCL HEART DISEASE OF [place] CORONARY 02/10/2018 JOSHUA CASTILLO MD Ot R07. 89 OTHER CHEST PAIN 02/10/2018 JOSHUA CASTILLO MD Ot Z72. 0 TOBACCO USE 02/10/2018 JOSHUA CASTILLO MD Ot E78. 5 HYPERLIPIDEMIA, UNSPECIFIED 02/10/2018 JOSHUA CASTILLO MD Ot F41. 9 ANXIETY DISORDER, UNSPECIFIED 02/10/2018 JOSHUA CASTILLO MD Ot I10 ESSENTIAL (PRIMARY) HYPERTENSION 02/10/2018 JOSHUA CASTILLO MD Ot I25. 10 ATHSCL HEART DISEASE OF [place] CORONARY 02/10/2018 JOSHUA CASTILLO MD Ot R07. 89 OTHER CHEST PAIN 02/10/2018 JOSHUA CASITLLO MD Ot Z72. 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 2 MIXED HYPERLIPIDEMIA 02/10/2018 JOSHUA CASTILLO MD Ot I11. 0 HYPERTENSIVE HEART DISEASE WITH HEART FA 02/10/2018 JOSHUA CASTILLO MD Ot I25. 10 ATHSCL HEART DISEASE OF [place] CORONARY 02/10/2018 JOSHUA CASTILLO MD Ot I50. 9 HEART FAILURE, UNSPECIFIED 02/10/2018 JOSHUA CASTILLO MD Ot E78. 2 MIXED HYPERLIPIDEMIA 02/10/2018 JOSHUA CASTILLO MD Ot I11. 0 HYPERTENSIVE HEART DISEASE WITH HEART FA 02/10/2018 JOSHUA CASTILLO MD Ot I25. 10 ATHSCL HEART DISEASE OF [place] CORONARY 02/10/2018 JOSHUA CASTILLO MD Ot I50. [...] F20. 9 SCHIZOPHRENIA, UNSPECIFIED 02/15/2018 JUAREZ TOLENTINO MD, Ot F32. 9 MAJOR [...] SYSTOLIC (CONGESTIVE) HEART FAIL 02/15/2018 JUAREZ TOLENTINO MD, Ot I65. 29 OCCLUSION AND STENOSIS OF UNSPECIFIED CA 02/15/2018 JUAREZ TOLENTINO MD, Ot I73. 9 PERIPHERAL VASCULAR DISEASE, UNSPECIFIED 02/15/2018 JUAREZ TOLENTINO MD, Ot J44. 9 CHRONIC OBSTRUCTIVE PULMONARY DISEASE, U 02/15/2018 JUAREZ TOLENTINO MD, Ot K21. 9 GASTRO-ESOPHAGEAL REFLUX DISEASE WITHOUT 02/15/2018 JUAREZ TOLENTINO MD Ot Z79. 82 SKILLED NURSING (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 02/15/2018 JUAREZ TOLENTINO MD Ot Z79.899 OTHER MANAGER CUSTOMS (CURRENT) DRUG THERAPY 02/15/2018 JUAREZ TOLENTINO MD Ot Z86.718 PERSONAL HISTORY OF OTHER VENOUS THROMBO 02/15/2018 JUAREZ TOLENTINO MD Ot Z95. 1 PRESENCE OF AORTOCORONARY BYPASS GRAFT 02/15/2018 JUAREZ TOLENTINO MD Ot Z95. 5 PRESENCE OF CORONARY ANGIOPLASTY IMPLANT 02/15/2018 JUAREZ TOLENTINO MD Ot E78. 00 PURE HYPERCHOLESTEROLEMIA, UNSPECIFIED 02/15/2018 JUAREZ TOLENTINO MD, Ot E78. 5 HYPERLIPIDEMIA, UNSPECIFIED 02/15/2018 JUAREZ TOLENTINO MD Ot F17.210 NICOTINE DEPENDENCE, CIGARETTES, UNCOMPL 02/15/2018 JUAREZ TOLENTINO MD, Ot F20. 9 SCHIZOPHRENIA, UNSPECIFIED 02/15/2018 JUAREZ TOLENTINO MD, Ot F32. 9 MAJOR DEPRESSIVE DISORDER, SINGLE EPISOD 02/15/2018 JUAREZ TOLENTINO MD, Ot F41. 9 ANXIETY DISORDER, UNSPECIFIED 02/15/2018 JUAREZ TOLENTINO MD, Ot I11. 0 HYPERTENSIVE [...] 02/15/2018 JUAREZ TOLENTINO MD Ot Z79. 82 MANAGER CUSTOMS (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 02/15/2018 JUAREZ TOLENTINO MD Ot Z79.899 OTHER SKILLED NURSING (CURRENT) DRUG THERAPY 02/15/2018 JUAREZ TOLENTINO MD, [...] ACUTE NASOPHARYNGITIS [COMMON COLD] 03/05/2018 W J44.1 MAILROOM MANAGER JIMMIE OBSTRUCTIVE PULMONARY DISEASE WITH (ACUTE) 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 03/06/2018 HORTENCIA LYNN Ot M19.011 PRIMARY OSTEOARTHRITIS, RIGHT SHOULDER 03/06/2018 HORTENCIA LYNNP Ot M75. 81 OTHER SHOULDER LESIONS, RIGHT SHOULDER 03/10/2018 W 486 PNEUMO NIRAV, ORGANISM UNSPECIFIED 03/10/2018 W 491.21 OBS TRUCTIVE CHRONIC BRONCHITIS WITH (ACUTE) 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 03/10/2018 W J18.9 PNEU MONIA, UNSPECIFIED ORGANISM 03/10/2018 W J44.1 MAILROOM MANAGER JIMMIE OBSTRUCTIVE PULMONARY DISEASE WITH (ACUTE) 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 03/18/2018 JOSHUA CASTILLO MD Ot E78. 5 HYPERLIPIDEMIA, UNSPECIFIED 03/18/2018 JOSHUA CASTILLO MD Ot I08. 1 RHEUMATIC DISORDERS OF BOTH MITRAL AND T 03/18/2018 JOSHUA CASTILLO MD Ot I10 ESSENTIAL (PRIMARY) HYPERTENSION 03/18/2018 JOSHUA CASTILLO MD Ot I25.110 ATHSCL HEART DISEASE OF [place] ART W 03/18/2018 JOSHUA CASTILLO MD Ot I25. 82 CHRONIC TOTAL OCCLUSION OF CORONARY TOM 03/18/2018 JOSHUA CASTILLO MD Ot I65. 23 OCCLUSION AND STENOSIS OF BILATERAL BREWER 03/18/2018 JOSHUA CASTILLO MD Ot J44. 9 CHRONIC OBSTRUCTIVE PULMONARY DISEASE, U 03/18/2018 JOSHUA CASTILLO MD Ot N28. 9 DISORDER OF KIDNEY AND URETER, UNSPECIFI 03/18/2018 JOSHUA CASTILLO MD Ot Z87.891 PERSONAL HISTORY OF NICOTINE DEPENDENCE 03/18/2018 JOSHUA CASTILLO MD Ot Z95. 5 PRESENCE OF CORONARY ANGIOPLASTY IMPLANT 03/18/2018 JOSHUA CASTILLO MD, Ot Z95.820 PERIPHERAL VASCULAR ANGIOPLASTY STATUS W 03/18/2018 JOSHUA CASTILLO MD Ot Z99. 81 DEPENDENCE ON SUPPLEMENTAL OXYGEN 03/23/2018 JOSHUA CASTILLO MD Ot E78. 5 HYPERLIPIDEMIA, UNSPECIFIED 03/23/2018 JOSHUA CASTILLO MD Ot I08. 1 RHEUMATIC DISORDERS OF BOTH MITRAL AND T 03/23/2018 JOSHUA CASTILLO MD Ot I10 ESSENTIAL (PRIMARY) HYPERTENSION 03/23/2018 JOSHUA CASTILLO MD Ot I25.110 ATHSCL HEART DISEASE OF [place] ART W 03/23/2018 JOSHUA CASTILLO MD [...] MD Ot I25.110 ATHSCL HEART DISEASE OF [place] ART W 03/25/2018 JOSHUA CASTILLO MD [...] HISTORY OF NICOTINE DEPENDENCE 03/25/2018 JOSHUA CASTILLO MD, Ot Z95. 5 PRESENCE OF CORONARY ANGIOPLASTY IMPLANT 03/25/2018 JOSHUA CASTILLO MD, Ot Z95.820 PERIPHERAL VASCULAR ANGIOPLASTY STATUS W 03/25/2018 JOSHUA CASTILLO MD, Ot Z99. 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 04/22/2018 W J44.9 MAILROOM MANAGER JIMMIE OBSTRUCTIVE PULMONARY DISEASE, UNSPECIFIED 04/22/2018 W [...] Ot F20.9 SCHIZOPHRENIA, UNSPECIFIED 04/25/2018 ANTOINETTE SANDHU MD, Ot F32.9 MAJOR DEPRESSIVE DISORDER, SINGLE EPISOD 04/25/2018 ANTOINETTE SANDHU MD Ot I10 ESSENTIAL (PRIMARY) HYPERTENSION 04/25/2018 ANTOINETTE SANDHU MD Ot I25.10 ATHSCL HEART DISEASE OF [place] CORONARY 04/25/2018 ANTOINETTE SANDHU MD Ot I25.2 OLD MYOCARDIAL INFARCTION 04/25/2018 ANTOINETTE SANDHU MD, Ot J44.9 CHRONIC OBSTRUCTIVE PULMONARY DISEASE, U 04/25/2018 ANTOINETTE SANDHU MD, Ot K21.9 GASTRO-ESOPHAGEAL REFLUX DISEASE WITHOUT 04/25/2018 ANTOINETTE SANDHU MD, Ot M25.474 EFFUSION, RIGHT FOOT 04/25/2018 ANTOINETTE SANDHU MD, Ot M25.571 PAIN IN RIGHT ANKLE AND JOINTS OF RIGHT 04/25/2018 ANTOINETTE SANDHU MD, Ot Z79.02 SKILLED NURSING (CURRENT) USE OF ANTITHROMBOTI 04/25/2018 ANTOINETTE SANDHU MD, Ot Z79.51 MANAGER CUSTOMS (CURRENT) USE OF INHALED STERO 04/25/2018 ANTOINETTE SANDHU MD, Ot Z79.82 SKILLED NURSING (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 04/25/2018 ANTOINETTE SANDHU [...] SANDHU MD, Ot Z88.8 ALLERGY STATUS TO [facility] DRUG/MEDS/BIOL SUB 04/25/2018 ANTOINETTE SANDHU MD Ot Z90.89 ACQUIRED ABSENCE OF OTHER ORGANS 04/25/2018 ANTOINETTE SANDHU MD, Ot Z95.5 PRESENCE OF CORONARY ANGIOPLASTY IMPLANT 04/25/2018 ANTOINETTE SANDHU MD, Ot Z98.61 CORONARY ANGIOPLASTY STATUS 04/28/2018 ANTOINETTE SANDHU MD Ot E78.00 PURE HYPERCHOLESTEROLEMIA, UNSPECIFIED 04/28/2018 ANTOINETTE SANDHU MD Ot F20.9 SCHIZOPHRENIA, UNSPECIFIED 04/28/2018 PHOEBE MD, ANTOINETTE D Ot F32.9 MAJOR DEPRESSIVE DISORDER, SINGLE EPISOD 04/28/2018 ANTOINETTE SANDHU MD, Ot I10 ESSENTIAL (PRIMARY) HYPERTENSION 04/28/2018 ANTOINETTE SANDHU MD, Ot I25.10 ATHSCL HEART DISEASE OF [place] CORONARY 04/28/2018 ANTOINETTE SANDHU MD, Ot I25.2 OLD MYOCARDIAL INFARCTION 04/28/2018 ANTOINETTE SANDHU MD, Ot J44.9 CHRONIC OBSTRUCTIVE PULMONARY DISEASE, U 04/28/2018 ANTOINETTE SANDHU MD, Ot K21.9 GASTRO-ESOPHAGEAL REFLUX DISEASE WITHOUT 04/28/2018 ANTOINETTE SANDHU MD, Ot M25.474 EFFUSION, RIGHT FOOT 04/28/2018 ANTOINETTE SANDHU MD, Ot M25.571 PAIN IN RIGHT ANKLE AND JOINTS OF RIGHT 04/28/2018 ANTOINETTE SANDHU MD, Ot Z79.02 SKILLED NURSING (CURRENT) USE OF ANTITHROMBOTI 04/28/2018 ANTOINETTE SANDHU MD, Ot Z79.51 SKILLED NURSING (CURRENT) USE OF INHALED STERO 04/28/2018 ANTOINETTE SANDHU MD, Ot Z79.82 SKILLED NURSING (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 04/28/2018 ANTOINETTE SANDHU [...] Z90.89 ACQUIRED ABSENCE OF OTHER ORGANS 04/28/2018 PHOEBE MD, ANTOINETTE D Ot Z95.5 PRESENCE OF CORONARY ANGIOPLASTY IMPLANT 04/28/2018 PHOEBE CRANE, ANTOINETTE Bartlett Ot Z98.61 CORONARY ANGIOPLASTY STATUS 06/05/2018 JONATHAN CRANE, JOSHUA Rausch Ot I20. 8 OTHER FORMS OF ANGINA PECTORIS 06/15/2018 JONATHAN CRANE, JOSHUA Rausch Ot I20. 8 OTHER FORMS OF ANGINA PECTORIS 06/30/2018 MARGARITA ROBERTSONP Ot E78.00 PURE HYPERCHOLESTEROLEMIA, UNSPECIFIED 06/30/2018 AILYN, MARGARITA MACHINE WHITENER Ot F20.9 SCHIZOPHRENIA, UNSPECIFIED 06/30/2018 AILYN, MARGARITA MACHINE WHITENER Ot F32.9 MAJOR DEPRESSIVE DISORDER, SINGLE EPISOD 06/30/2018 AILYN MARGARITA MACHINE WHITENER Ot I10 ESSENTIAL (PRIMARY) HYPERTENSION 06/30/2018 MARGARITA ROBERTSONP Ot I25.10 ATHSCL HEART DISEASE OF [place] CORONARY 06/30/2018 MARGARITA ROBERTSONP Ot I25.2 OLD MYOCARDIAL INFARCTION 06/30/2018 MARGARITA ROBERTSONP Ot I73.9 PERIPHERAL VASCULAR DISEASE, UNSPECIFIED 06/30/2018 MARGARITA ROBERTSONP Ot J18.1 LOBAR PNEUMONIA, UNSPECIFIED ORGANISM 06/30/2018 AILYN MARGARITA MACHINE WHITENER Ot J44.9 CHRONIC OBSTRUCTIVE PULMONARY DISEASE, U 06/30/2018 MARGARITA ROBERTSONP Ot K21.9 GASTRO-ESOPHAGEAL REFLUX DISEASE WITHOUT 06/30/2018 MARGARITA ROBERTSON MACHINE WHITENER Ot R06.02 SHORTNESS OF BREATH 06/30/2018 MARGARITA ROBERTSON MACHINE WHITENER Ot Z79.02 SKILLED NURSING (CURRENT) USE OF ANTITHROMBOTI 06/30/2018 MARGARITA ROBERTSONP Ot Z79.51 MANAGER CUSTOMS (CURRENT) USE OF INHALED STERO 06/30/2018 MARGARITA ROBERTSON MACHINE WHITENER Ot Z79.52 SKILLED NURSING (CURRENT) USE OF SYSTEMIC STER 06/30/2018 MARGARITA ROBERTSON MACHINE WHITENER Ot Z79.82 SKILLED NURSING (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 06/30/2018 MARGARITA ROBERTSONP Ot Z82.49 FAMILY HX OF ISCHEM HEART DIS AND OTH DI 06/30/2018 MARGARITA ROBERTSON MACHINE WHITENER Ot Z86.718 PERSONAL HISTORY OF OTHER VENOUS THROMBO 06/30/2018 MARGARITA ROBERTSONP Ot Z86.73 PRSNL HX OF TIA (TIA), AND CEREB INFRC W 06/30/2018 MARGARITA ROBERTSON Ot Z87.01 PERSONAL HISTORY OF PNEUMONIA (RECURRENT 06/30/2018 MARGARITA ROBERTSONP Ot Z87.19 PERSONAL HISTORY OF OTHER DISEASES OF TH 06/30/2018 MARGARITA ROBERTSON Ot Z87.891 PERSONAL HISTORY OF NICOTINE DEPENDENCE 06/30/2018 MARGARITA ROBERTSON Ot Z88.7 ALLERGY STATUS TO SERUM AND VACCINE STAT 06/30/2018 MARGARITA ROBERTSON Ot Z88.8 ALLERGY STATUS TO OTH DRUG/MEDS/BIOL SUB 06/30/2018 MARGARITA ROBERTSON Ot Z95.1 PRESENCE OF AORTOCORONARY BYPASS GRAFT 06/30/2018 MARGARITA ROBERTSONP Ot Z95.5 PRESENCE OF CORONARY ANGIOPLASTY IMPLANT 06/30/2018 MARGARITA ROBERTSON Ot Z95.820 PERIPHERAL VASCULAR ANGIOPLASTY STATUS W 06/30/2018 MARGARITA ROBERTSON Ot Z98.890 OTHER SPECIFIED POSTPROCEDURAL STATES 06/30/2018 W 491.21 OBS TRUCTIVE CHRONIC BRONCHITIS WITH (ACUTE) 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 06/30/2018 W 799.02 HYP OXEMIA 06/30/2018 W J44.1 MAILROOM MANAGER JIMMIE OBSTRUCTIVE PULMONARY DISEASE WITH (ACUTE) 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 06/30/2018 W R09.02 HYP OXEMIA 07/02/2018 MARGARITA ROBERTSONP Ot E78.00 PURE HYPERCHOLESTEROLEMIA, UNSPECIFIED 07/02/2018 MARGARITA ROBERTSONP Ot F20.9 SCHIZOPHRENIA, UNSPECIFIED 07/02/2018 AILYN MARGARITA MACHINE WHITENER Ot F32.9 MAJOR DEPRESSIVE DISORDER, SINGLE EPISOD 07/02/2018 MARGARITA ROBERTSONP Ot I10 ESSENTIAL (PRIMARY) HYPERTENSION 07/02/2018 MARGARITA ROBERTSONP Ot I25.10 ATHSCL HEART DISEASE OF [place] CORONARY 07/02/2018 MARGARITA ROBERTSONP Ot I25.2 OLD MYOCARDIAL INFARCTION 07/02/2018 MARGARITA ROBERTSONP Ot I73.9 PERIPHERAL VASCULAR DISEASE, UNSPECIFIED 07/02/2018 MARGARITA ROBERTSONP Ot J18.1 LOBAR PNEUMONIA, UNSPECIFIED ORGANISM 07/02/2018 MARGARITA ROBERTSONP Ot J44.9 CHRONIC OBSTRUCTIVE PULMONARY DISEASE, U 07/02/2018 MARGARITA ROBERTSONP Ot K21.9 GASTRO-ESOPHAGEAL REFLUX DISEASE WITHOUT 07/02/2018 MARGARITA ROBERTSON MACHINE WHITENER Ot R06.02 SHORTNESS OF BREATH 07/02/2018 MARGARITA ROBERTSON Ot Z79.02 MANAGER CUSTOMS (CURRENT) USE OF ANTITHROMBOTI 07/02/2018 MARGARITA ROBERTSON Ot Z79.51 SKILLED NURSING (CURRENT) USE OF INHALED STERO 07/02/2018 MARGARITA ROBERTSON Ot Z79.52 SKILLED NURSING (CURRENT) USE OF SYSTEMIC STER 07/02/2018 MARGARITA ROBERTSON Ot Z79.82 MANAGER CUSTOMS (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 07/02/2018 MARGARITA ROBERTSON [...] MARGARITA ROBERTSON Ot Z88.8 ALLERGY STATUS TO [facility] DRUG/MEDS/BIOL SUB 07/02/2018 MARGARITA ROBERTSON Ot Z95.1 [...] PNEU MONIA, UNSPECIFIED ORGANISM 07/03/2018 W J44.1 MAILROOM MANAGER JIMMIE OBSTRUCTIVE PULMONARY DISEASE WITH (ACUTE) 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 07/03/2018 W R09.02 HYP OXEMIA 07/06/2018 MARGARITA ROBERTSONP Ot E78.00 PURE HYPERCHOLESTEROLEMIA, UNSPECIFIED 07/06/2018 AILYNMARGARITA CartagenaP Ot F20.9 SCHIZOPHRENIA, UNSPECIFIED 07/06/2018 MARGARITA ROBERTSONP Ot F32.9 MAJOR DEPRESSIVE DISORDER, SINGLE EPISOD 07/06/2018 MARGARITA ROBERTSONP Ot I10 ESSENTIAL (PRIMARY) HYPERTENSION 07/06/2018 MARGARITA ROBERTSONP Ot I25.10 ATHSCL HEART DISEASE OF [place] CORONARY 07/06/2018 MARGARITA ROBERTSONP Ot I25.2 OLD MYOCARDIAL INFARCTION 07/06/2018 MARGARITA ROBERTSONP Ot I73.9 PERIPHERAL VASCULAR DISEASE, UNSPECIFIED 07/06/2018 MARGARITA ROBERTSONP Ot J18.1 LOBAR PNEUMONIA, UNSPECIFIED ORGANISM 07/06/2018 MARGARITA ROBERTSONP Ot J44.9 CHRONIC OBSTRUCTIVE PULMONARY DISEASE, U 07/06/2018 MARGARITA ROBERTSONP Ot K21.9 GASTRO-ESOPHAGEAL REFLUX DISEASE WITHOUT 07/06/2018 MARGARITA ROBERTSONP Ot R06.02 SHORTNESS OF BREATH 07/06/2018 MARGARITA ROBERTSONP Ot Z79.02 MANAGER CUSTOMS (CURRENT) USE OF ANTITHROMBOTI 07/06/2018 MARGARITA ROBERTSONP Ot Z79.51 SKILLED NURSING (CURRENT) USE OF INHALED STERO 07/06/2018 MARGARITA ROBERTSONP Ot Z79.52 SKILLED NURSING (CURRENT) USE OF SYSTEMIC STER 07/06/2018 MARGARITA ROBERTSONP Ot Z79.82 MANAGER CUSTOMS (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 07/06/2018 MARGARITA ROBERTSONP Ot Z82.49 FAMILY HX OF ISCHEM HEART DIS AND OTH DI 07/06/2018 MARGARITA ROBERTSONP Ot Z86.718 PERSONAL HISTORY OF OTHER VENOUS THROMBO 07/06/2018 MARGARITA ROBERTSONP Ot Z86.73 PRSNL HX OF TIA (TIA), AND CEREB INFRC W 07/06/2018 MARGARITA ROBERTSONP Ot Z87.01 PERSONAL HISTORY OF PNEUMONIA (RECURRENT 07/06/2018 MARGARITA ROBERTSONP Ot Z87.19 PERSONAL HISTORY OF OTHER DISEASES OF TH 07/06/2018 MARGARITA ROBERTSONP Ot Z87.891 PERSONAL HISTORY OF NICOTINE DEPENDENCE 07/06/2018 MARGARITA ROBERTSONP Ot Z88.7 ALLERGY STATUS TO SERUM AND VACCINE STAT 07/06/2018 MARGARITA ROBERTSON ADRIÁN Ot Z88.8 ALLERGY STATUS TO [facility] DRUG/MEDS/BIOL SUB 07/06/2018 MARGARITA ROBERTSON ADRIÁN Ot Z95.1 PRESENCE OF AORTOCORONARY BYPASS GRAFT 07/06/2018 MARGARITA ROBERTSON ADRIÁN Ot Z95.5 PRESENCE OF CORONARY ANGIOPLASTY IMPLANT 07/06/2018 MARGARITA ROBERTSONP Ot Z95.820 PERIPHERAL VASCULAR ANGIOPLASTY STATUS W 07/06/2018 MARGARITA ROBERTSONP Ot Z98.890 OTHER SPECIFIED POSTPROCEDURAL STATES 07/09/2018 W 486 PNEUMO NIRAV, ORGANISM UNSPECIFIED 07/09/2018 W 491.20 OBS TRUCTIVE CHRONIC BRONCHITIS, WITHOUT 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 07/09/2018 W 491.21 OBS TRUCTIVE CHRONIC BRONCHITIS WITH (ACUTE) 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 07/09/2018 W J18.9 PNEU MONIA, UNSPECIFIED ORGANISM 07/09/2018 W J44.1 MAILROOM MANAGER JIMMIE OBSTRUCTIVE PULMONARY DISEASE WITH (ACUTE) 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 07/09/2018 W J44.9 MAILROOM MANAGER JIMMIE OBSTRUCTIVE PULMONARY DISEASE, UNSPECIFIED 08/06/2018 JOSHUA CASTILLO MD Ot 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 8 OTHER FORMS OF ANGINA PECTORIS 08/18/2018 JOSHUA CASTILLO MD Ot I25. 10 ATHSCL HEART DISEASE OF [place] CORONARY 08/18/2018 JOSHUA CASTILLO MD Ot I50. 9 HEART FAILURE, UNSPECIFIED 08/18/2018 JOSHUA CASTILLO MD Ot J44. 9 CHRONIC OBSTRUCTIVE PULMONARY DISEASE, U 08/18/2018 JOSHUA CASTILLO MD Ot R06. 02 SHORTNESS OF BREATH 08/20/2018 JOSHUA CASTILLO MD Ot I25. 10 ATHSCL HEART DISEASE OF [place] CORONARY 08/20/2018 JOSHUA CASTILLO MD Ot I50. 9 HEART FAILURE, UNSPECIFIED 08/20/2018 JOSHUA CASTILLO MD Ot J44. 9 CHRONIC [...] APRN Ot I25.10 ATHSCL HEART DISEASE OF [place] CORONARY 08/20/2018 KAYCEE BAHENA APRN Ot I25 .2 OLD MYOCARDIAL INFARCTION 08/20/2018 KAYCEE BAHENA APRN Ot I73 .9 PERIPHERAL VASCULAR DISEASE, UNSPECIFIED 08/20/2018 KAYCEE BAHENA APRN Ot J44 .9 CHRONIC OBSTRUCTIVE PULMONARY DISEASE, U 08/20/2018 KAYCEE BAHEAN APRN Ot K21 .9 GASTRO-ESOPHAGEAL REFLUX DISEASE [...] STRIKE 08/20/2018 KAYCEE BAHENA APRN Ot Z79.02 SKILLED NURSING (CURRENT) USE OF ANTITHROMBOTI 08/20/2018 KAYCEE BAHENA APRN Ot Z79.51 SKILLED NURSING (CURRENT) USE OF INHALED STERO 08/20/2018 KAYCEE BAHENA APRN Ot Z79.52 SKILLED NURSING (CURRENT) USE OF SYSTEMIC STER 08/20/2018 KAYCEE BAHENA APRN Ot Z79.82 SKILLED NURSING (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 08/20/2018 KAYCEE BAHENA APRN Ot Z82.49 FAMILY HX OF ISCHEM HEART DIS AND OTH DI 08/20/2018 KAYCEE BAHENA APRN, Ot Z86.718 PERSONAL HISTORY OF OTHER VENOUS THROMBO 08/20/2018 KAYCEE BAHENA APRN Ot Z86.73 PRSNL HX OF TIA (TIA), AND CEREB INFRC W 08/20/2018 KAYCEE BAHENA APRN Ot Z87.01 PERSONAL HISTORY OF PNEUMONIA (RECURRENT 08/20/2018 KAYCEE BAHENA APRN Ot Z87.19 PERSONAL HISTORY [...] APRN Ot I25.10 ATHSCL HEART DISEASE OF [place] CORONARY 08/26/2018 KAYCEE BAHENA APRN Ot I25 [...] STRIKE 08/26/2018 KAYCEE BAHENA APRN Ot Z79.02 MANAGER CUSTOMS (CURRENT) USE OF ANTITHROMBOTI 08/26/2018 KAYCEE BAHENA APRN Ot Z79.51 SKILLED NURSING (CURRENT) USE OF INHALED STERO 08/26/2018 KAYCEE BAHENA APRN Ot Z79.52 SKILLED NURSING (CURRENT) USE OF SYSTEMIC STER 08/26/2018 KAYCEE BAHENA APRN Ot Z79.82 MANAGER CUSTOMS (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 08/26/2018 KAYCEE BAHENA [...] Ot Z98.890 OTHER SPECIFIED POSTPROCEDURAL STATES 08/26/2018 BAHENA, PETER J WATER TREATMENT SPECIALIST Ot Z99.81 DEPENDENCE ON SUPPLEMENTAL OXYGEN 09/03/2018 JOSHUA CASTILLO MD Ot I25. 10 ATHSCL HEART DISEASE OF [place] CORONARY 09/03/2018 JOSHUA CASTILLO MD Ot I50. 9 HEART FAILURE, UNSPECIFIED 09/03/2018 JOSHUA CASTILLO MD, Ot J44. 9 CHRONIC OBSTRUCTIVE PULMONARY DISEASE, U 09/03/2018 JOSHUA CASTILLO MD Ot R06. 02 SHORTNESS OF BREATH 09/03/2018 W 354.0 CARP AL TUNNEL SYNDROME 09/03/2018 W 491.21 OBS TRUCTIVE CHRONIC BRONCHITIS WITH (ACUTE) 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 09/03/2018 W 682.2 CELL ULITIS AND ABSCESS OF TRUNK 09/03/2018 W G56.01 CAR PAL TUNNEL SYNDROME, RIGHT UPPER LIMB 09/03/2018 W J44.1 MAILROOM MANAGER JIMMIE OBSTRUCTIVE PULMONARY DISEASE WITH (ACUTE) 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 09/03/2018 W L02.211 CU TANEOUS ABSCESS OF ABDOMINAL WALL 09/08/2018 W 491.21 OBS TRUCTIVE CHRONIC BRONCHITIS WITH (ACUTE) 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 09/08/2018 W J44.1 MAILROOM MANAGER JIMMIE OBSTRUCTIVE PULMONARY DISEASE WITH (ACUTE) 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 09/15/2018 JOSHUA CASTILLO MD Ot I20. 8 OTHER FORMS OF ANGINA PECTORIS 09/17/2018 JOSHUA CASTILLO MD Ot I25. 10 ATHSCL HEART DISEASE OF [place] CORONARY 09/17/2018 JOSHUA CASTILLO MD Ot I50. 9 HEART FAILURE, UNSPECIFIED 09/17/2018 JOSHUA CASTILLO MD, Ot J44. 9 CHRONIC [...] MCALLISTER Ot I25.10 ATHSCL HEART DISEASE OF [place] CORONARY 10/21/2018 JOSHUA CASTILLO MD Ot E78. 2 MIXED HYPERLIPIDEMIA 10/21/2018 JOSHUA CASTILLO MD Ot F41. 9 ANXIETY DISORDER, UNSPECIFIED 10/21/2018 JOSHUA CASTILLO MD Ot I10 ESSENTIAL (PRIMARY) HYPERTENSION 10/21/2018 JOSHUA CASTILLO MD Ot I25. 10 ATHSCL HEART DISEASE OF [place] CORONARY 10/21/2018 JOSHUA CASTILLO MD Ot R07. 89 OTHER CHEST PAIN 10/21/2018 JOSHUA CASTILLO MD Ot Z72. 0 TOBACCO USE 10/21/2018 JOSHUA CASTILLO MD Ot E78. 5 HYPERLIPIDEMIA, UNSPECIFIED 10/21/2018 JOSHUA CASTILLO MD Ot F41. 9 ANXIETY DISORDER, UNSPECIFIED 10/21/2018 JOSHUA CASTILLO MD Ot I10 ESSENTIAL (PRIMARY) HYPERTENSION 10/21/2018 JOSHUA CASTILLO MD Ot I25. 10 ATHSCL HEART DISEASE OF [place] CORONARY 10/21/2018 JOSHUA CASTILLO MD Ot R07. 89 OTHER CHEST PAIN 10/21/2018 JOSHUA CASTILLO MD Ot Z72. 0 TOBACCO USE 10/21/2018 CATE HERRERA WATER TREATMENT SPECIALIST Ot J44.9 CHRONIC OBSTRUCTIVE PULMONARY DISEASE, U 10/21/2018 CATE HERRERA WATER TREATMENT SPECIALIST Ot R06.02 SHORTNESS OF BREATH 10/21/2018 CATE HERRERA WATER TREATMENT SPECIALIST Ot R06.2 WHEEZING 10/21/2018 CATE HERRERA WATER TREATMENT SPECIALIST Ot R09.02 HYPOXEMIA 10/21/2018 CATE HERRERA WATER TREATMENT SPECIALIST Ot R91.1 SOLITARY PULMONARY NODULE 10/21/2018 CATE HERRERA WATER TREATMENT SPECIALIST Ot J44.0 CHRONIC OBSTRUCTIVE PULMON DISEASE W ACU 10/21/2018 CATE HERRERA WATER TREATMENT SPECIALIST Ot R06.02 SHORTNESS OF BREATH 10/21/2018 CATE HERRERA WATER TREATMENT SPECIALIST Ot R06.2 WHEEZING 10/21/2018 CATE HERRERA WATER TREATMENT SPECIALIST Ot R09.02 HYPOXEMIA 10/21/2018 CATE HERRERA WATER TREATMENT SPECIALIST Ot R91.1 SOLITARY PULMONARY NODULE 10/21/2018 CATE HERRERA WATER TREATMENT SPECIALIST Ot Z72.0 TOBACCO USE 10/21/2018 CELSO FORD COFFEE ROASTER-C Ot 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 2 MIXED HYPERLIPIDEMIA 10/21/2018 JOSHUA CASTILLO MD Ot I11. 0 HYPERTENSIVE HEART DISEASE WITH HEART FA 10/21/2018 JOSHUA CASTILLO MD Ot I25. 10 ATHSCL HEART DISEASE OF [place] CORONARY 10/21/2018 JOSHUA CASTILLO MD Ot I50. 9 HEART FAILURE, UNSPECIFIED 10/21/2018 JOSHUA CASTILLO MD Ot E78. 2 MIXED HYPERLIPIDEMIA 10/21/2018 JOSHUA CASTILLO MD Ot I11. 0 HYPERTENSIVE HEART DISEASE WITH HEART FA 10/21/2018 JOSHUA CASTILLO MD Ot I25. 10 ATHSCL HEART DISEASE OF [place] CORONARY 10/21/2018 JOSHUA CASTILLO MD Ot I50. 9 HEART FAILURE, UNSPECIFIED 10/21/2018 CATE HERRERA APRN Ot J18.9 PNEUMONIA, UNSPECIFIED ORGANISM 10/21/2018 CATE HERRERA APRN Ot J44.9 CHRONIC OBSTRUCTIVE PULMONARY DISEASE, U 10/21/2018 CATE HERRERA APRN Ot R91.8 OTHER NONSPECIFIC ABNORMAL FINDING OF [place] 10/21/2018 CATE HERRERA APRN Ot Z72.0 TOBACCO USE 10/21/2018 HORTENCIA LYNN MACHINE WHITENER Ot M19.011 PRIMARY OSTEOARTHRITIS, RIGHT SHOULDER 10/21/2018 HORTENCIA LYNN MACHINE WHITENER Ot M75. 81 OTHER SHOULDER LESIONS, RIGHT SHOULDER 10/21/2018 JOSHUA CASTILLO MD Ot I25. 10 ATHSCL HEART DISEASE OF [place] CORONARY 10/21/2018 JOSHUA CASTILLO MD Ot I50. [...] Ot F20.9 SCHIZOPHRENIA, UNSPECIFIED 10/30/2018 IRIS NELSON MD Ot F32.9 MAJOR DEPRESSIVE DISORDER, SINGLE EPISOD 10/30/2018 IRIS NELSON MD Ot I10 ESSENTIAL (PRIMARY) HYPERTENSION 10/30/2018 IRIS NELSON MD Ot I25.10 ATHSCL HEART DISEASE OF [place] CORONARY 10/30/2018 IRIS NELSON MD Ot I25.2 OLD MYOCARDIAL INFARCTION 10/30/2018 IRIS NELSON MD Ot I73.9 PERIPHERAL VASCULAR DISEASE, UNSPECIFIED 10/30/2018 IRIS NELSON MD Ot J44.1 CHRONIC OBSTRUCTIVE PULMONARY DISEASE W 10/30/2018 IRIS NELSON MD Ot K21.9 GASTRO-ESOPHAGEAL REFLUX DISEASE WITHOUT 10/30/2018 IRIS NELSON MD Ot R07.9 CHEST PAIN, UNSPECIFIED 10/30/2018 IRIS NELSON MD Ot Z79.02 MANAGER CUSTOMS (CURRENT) USE OF ANTITHROMBOTI 10/30/2018 IRIS NELSON MD Ot Z79.51 SKILLED NURSING (CURRENT) USE OF INHALED STERO 10/30/2018 IRIS NELSON MD Ot Z79.52 MANAGER CUSTOMS (CURRENT) USE OF SYSTEMIC STER 10/30/2018 IRIS NELSON MD Ot Z79.82 MANAGER CUSTOMS (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 10/30/2018 IRIS NELSON MD Ot Z82.49 FAMILY HX OF ISCHEM HEART DIS AND OTH DI 10/30/2018 IRIS NELSON MD, Ot Z86.718 PERSONAL HISTORY OF OTHER VENOUS THROMBO 10/30/2018 IRIS NELOSN MD, Ot Z86.73 PRSNL HX OF TIA [...] TO OTH DRUG/MEDS/BIOL SUB 10/30/2018 IRIS NELSON MD, Ot Z90.89 ACQUIRED ABSENCE OF OTHER ORGANS 10/30/2018 IRIS NELSON MD, Ot Z95.1 PRESENCE OF AORTOCORONARY BYPASS GRAFT 10/30/2018 IRIS NELSON MD, Ot Z95.5 PRESENCE OF [...] MD, Ot I25.10 ATHSCL HEART DISEASE OF [place] CORONARY 11/04/2018 IRIS NELSON MD, Ot I25.2 OLD MYOCARDIAL INFARCTION 11/04/2018 IRIS NELSON MD, Ot I73.9 PERIPHERAL VASCULAR DISEASE, UNSPECIFIED 11/04/2018 IRIS NELSON MD, Ot J44.1 CHRONIC OBSTRUCTIVE PULMONARY DISEASE W 11/04/2018 IRIS NELSON MD, Ot K21.9 GASTRO-ESOPHAGEAL REFLUX DISEASE WITHOUT 11/04/2018 IRIS NELSON MD, Ot R07.9 CHEST PAIN, UNSPECIFIED 11/04/2018 IRIS NELSON MD, Ot Z79.02 MANAGER CUSTOMS (CURRENT) USE OF ANTITHROMBOTI 11/04/2018 IRIS NELSON MD, Ot Z79.51 SKILLED NURSING (CURRENT) USE OF INHALED STERO 11/04/2018 IRIS NELSON MD, Ot Z79.52 MANAGER CUSTOMS (CURRENT) USE OF SYSTEMIC STER 11/04/2018 IRIS NELSON MD, Ot Z79.82 SKILLED NURSING (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 11/04/2018 IRIS NELSON [...] Z87.891 PERSONAL HISTORY OF NICOTINE DEPENDENCE 11/04/2018 IRIS NELSON MD, Ot Z88.7 ALLERGY STATUS TO SERUM AND VACCINE STAT 11/04/2018 IRIS NELSON MD, Ot Z88.8 ALLERGY STATUS TO OT DRUG/MEDS/BIOL SUB 11/04/2018 IRIS NELSON MD, Ot Z90.89 ACQUIRED ABSENCE OF OTHER ORGANS 11/04/2018 IRIS NELSON MD, Ot Z95.1 PRESENCE OF AORTOCORONARY BYPASS GRAFT 11/04/2018 IRIS NELSON MD, Ot Z95.5 PRESENCE OF CORONARY ANGIOPLASTY IMPLANT 11/04/2018 OMAR CRANE, IRIS Hudson Ot Z95.820 PERIPHERAL VASCULAR ANGIOPLASTY STATUS W 11/04/2018 OMAR CRANE, IRIS Hudson Ot Z98.890 OTHER SPECIFIED POSTPROCEDURAL STATES 11/10/2018 JONATHAN CRANE, JOSHUA Rausch Ot I20. 8 OTHER FORMS OF ANGINA PECTORIS 11/10/2018 JOSHUA CASTILLO MD Ot I20. 8 OTHER FORMS OF ANGINA PECTORIS 11/11/2018 JOSHUA CASTILLO MD Ot I20. 8 OTHER FORMS OF ANGINA PECTORIS 11/12/2018 CATE HERRERA WATER TREATMENT SPECIALIST Ot F10.20 ALCOHOL DEPENDENCE, UNCOMPLICATED 11/12/2018 CATE HERRERA WATER TREATMENT SPECIALIST Ot J44.9 CHRONIC OBSTRUCTIVE PULMONARY DISEASE, U 11/12/2018 CATE HERRERA WATER TREATMENT SPECIALIST Ot R91.8 OTHER NONSPECIFIC ABNORMAL FINDING OF [place] 11/12/2018 CATE HERRERA WATER TREATMENT SPECIALIST Ot Z87.891 PERSONAL HISTORY OF NICOTINE DEPENDENCE 11/12/2018 CATE HERRERA WATER TREATMENT SPECIALIST Ot F10.20 ALCOHOL DEPENDENCE, UNCOMPLICATED 11/12/2018 CATE HERRERA WATER TREATMENT SPECIALIST Ot J44.9 CHRONIC OBSTRUCTIVE PULMONARY DISEASE, U 11/12/2018 CATE HERRERA WATER TREATMENT SPECIALIST Ot R06.02 SHORTNESS OF BREATH 11/12/2018 CATE HERRERA WATER TREATMENT SPECIALIST Ot R06.2 WHEEZING 11/12/2018 SHABBIR HERRERAINE E WATER TREATMENT SPECIALIST Ot R09.02 HYPOXEMIA 11/12/2018 CATE HERRERA WATER TREATMENT SPECIALIST Ot Z72.0 TOBACCO USE 11/13/2018 JONATHAN CRANE, JOSHUA Rausch Ot I20. 8 OTHER FORMS OF ANGINA PECTORIS 11/22/2018 CATE HERRERA WATER TREATMENT SPECIALIST Ot F10.20 ALCOHOL DEPENDENCE, UNCOMPLICATED 11/22/2018 CATE HERRERA WATER TREATMENT SPECIALIST Ot J44.9 CHRONIC OBSTRUCTIVE PULMONARY DISEASE, U 11/22/2018 CATE HERRERA WATER TREATMENT SPECIALIST Ot J98.4 OTHER DISORDERS OF LUNG 11/22/2018 CATE HERRERA WATER TREATMENT SPECIALIST Ot R91.8 OTHER NONSPECIFIC ABNORMAL FINDING OF [place] 11/22/2018 CATE HERRERA WATER TREATMENT SPECIALIST Ot Z72.0 TOBACCO USE 11/24/2018 CATE HERRERA WATER TREATMENT SPECIALIST Ot F10.20 ALCOHOL DEPENDENCE, UNCOMPLICATED 11/24/2018 CATE HERRERA WATER TREATMENT SPECIALIST Ot J44.9 CHRONIC OBSTRUCTIVE PULMONARY DISEASE, U 11/24/2018 CATE HERRERA WATER TREATMENT SPECIALIST Ot J98.4 OTHER DISORDERS OF LUNG 11/24/2018 CATE HERRERA WATER TREATMENT SPECIALIST Ot R91.8 OTHER NONSPECIFIC ABNORMAL FINDING OF [place] 11/24/2018 CATE HERRERA WATER TREATMENT SPECIALIST Ot Z72.0 TOBACCO USE 12/01/2018 CATE HERRERA WATER TREATMENT SPECIALIST Ot F10.20 ALCOHOL DEPENDENCE, UNCOMPLICATED 12/01/2018 CATE HERRERA WATER TREATMENT SPECIALIST Ot J44.9 CHRONIC OBSTRUCTIVE PULMONARY DISEASE, U 12/01/2018 CATE HERRERA WATER TREATMENT SPECIALIST Ot R06.02 SHORTNESS OF BREATH 12/01/2018 CATE HERRERA WATER TREATMENT SPECIALIST Ot R06.2 WHEEZING 12/01/2018 CATE HERRERA WATER TREATMENT SPECIALIST Ot R09.02 HYPOXEMIA 12/01/2018 CATE HERRERA WATER TREATMENT SPECIALIST Ot Z72.0 TOBACCO USE 12/06/2018 Ot 300.00 [...] F32.9 MAJOR DEPRESSIVE DISORDER, SINGLE EPISOD 12/07/2018 DEBBIE ESPINOSA DO Ot F41.9 ANXIETY DISORDER, UNSPECIFIED 12/07/2018 PAZ ESPINOSA DOA K Ot I11.0 HYPERTENSIVE HEART DISEASE WITH HEART FA 12/07/2018 PAZ ESPINOSA DOA Julian Ot I25.10 ATHSCL HEART DISEASE OF [place] CORONARY 12/07/2018 DEBBIE ESPINOSA DO Ot I25.2 OLD MYOCARDIAL INFARCTION 12/07/2018 PAZ ESPINOSA DOA K Ot I50.9 HEART FAILURE, UNSPECIFIED 12/07/2018 PAZ ESPINOSA DOA K Ot I73.9 PERIPHERAL VASCULAR DISEASE, UNSPECIFIED 12/07/2018 DEBBIE ESPINOSA DO Ot J44.9 CHRONIC OBSTRUCTIVE PULMONARY DISEASE, U 12/07/2018 DEBBIE ESPINOSA DO Ot K21.9 GASTRO-ESOPHAGEAL REFLUX DISEASE WITHOUT 12/07/2018 DEBBIE ESPINOSA DO Ot R07.9 CHEST PAIN, UNSPECIFIED 12/07/2018 DEBBIE ESPINOSA DO Ot Z79.51 SKILLED NURSING (CURRENT) USE OF INHALED STERO 12/07/2018 DEBBIE ESPINOSA DO Ot Z79.82 SKILLED NURSING (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 12/07/2018 DEBBIE ESPINOSA DO Ot Z82.49 FAMILY HX OF ISCHEM HEART DIS AND OTH DI 12/07/2018 DEBBIE ESPINOSA DO Ot Z86.718 PERSONAL HISTORY OF OTHER VENOUS THROMBO 12/07/2018 DEBBIE ESPINOSA DO, Ot Z86.73 PRSNL HX OF TIA (TIA), AND CEREB INFRC W 12/07/2018 DEBBIE ESPINOSA DO Ot Z87.01 PERSONAL HISTORY OF PNEUMONIA (RECURRENT 12/07/2018 DEBBIE ESPINOSA DO, Ot Z87.891 PERSONAL HISTORY OF NICOTINE DEPENDENCE 12/07/2018 DEBBIE ESPINOSA DO Ot Z88.7 ALLERGY STATUS TO SERUM AND VACCINE STAT 12/07/2018 DEBBIE ESPINOSA DO Ot Z88.8 ALLERGY STATUS TO OT DRUG/MEDS/BIOL SUB 12/07/2018 DEBBIE ESPINOSA DO Ot Z90.89 ACQUIRED ABSENCE OF OTHER ORGANS 12/07/2018 DEBBIE ESPINOSA DO Ot Z95.1 PRESENCE OF AORTOCORONARY BYPASS GRAFT 12/07/2018 DEBBIE ESPINOSA DO Ot Z95.5 PRESENCE OF CORONARY ANGIOPLASTY IMPLANT 12/07/2018 DEBBIE ESPINOSA DO Ot Z99.81 DEPENDENCE ON SUPPLEMENTAL OXYGEN 12/09/2018 DEBBIE ESPINOSA DO Ot E78.00 PURE HYPERCHOLESTEROLEMIA, UNSPECIFIED 12/09/2018 DEBBIE ESPINOSA DO Ot F20.9 SCHIZOPHRENIA, UNSPECIFIED 12/09/2018 DEBBIE ESPINOSA DO Ot F32.9 MAJOR DEPRESSIVE DISORDER, SINGLE EPISOD 12/09/2018 DEBBIE ESPINOSA DO Ot F41.9 ANXIETY DISORDER, UNSPECIFIED 12/09/2018 DEBBIE ESPINOSA DO Ot I11.0 HYPERTENSIVE HEART DISEASE WITH HEART FA 12/09/2018 DEBBIE ESPINOSA DO Ot I25.10 ATHSCL HEART DISEASE OF [place] CORONARY 12/09/2018 FRANCISCA BURDICKDEBBIE Ot I25.2 OLD MYOCARDIAL INFARCTION 12/09/2018 DEBBIE ESPINOSA DO Ot I50.9 HEART FAILURE, UNSPECIFIED 12/09/2018 FRANCISCA BURDICKDEBBIE Ot I73.9 PERIPHERAL VASCULAR DISEASE, UNSPECIFIED 12/09/2018 FRANCISCA DEBBIE Ot J44.9 CHRONIC OBSTRUCTIVE PULMONARY DISEASE, U 12/09/2018 FRANCISCA DEBBIE BURDICK Ot K21.9 GASTRO-ESOPHAGEAL REFLUX DISEASE WITHOUT 12/09/2018 FRANCISCA BURDICKDEBBIE Ot R07.9 CHEST PAIN, UNSPECIFIED 12/09/2018 FRANCISCA DEBBIE Ot Z79.51 SKILLED NURSING (CURRENT) USE OF INHALED STERO 12/09/2018 FRANCISCA DEBBIE BURDICK Ot Z79.82 MANAGER CUSTOMS (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 12/09/2018 FRANCISCA DEBBIE [...] ESPINOSA DO Ot Z88.8 ALLERGY STATUS TO [facility] DRUG/MEDS/BIOL SUB 12/09/2018 DEBBIE ESPINOSA DO Ot Z90.89 ACQUIRED ABSENCE OF OTHER ORGANS 12/09/2018 DEBBIE ESPINOSA DO Ot Z95.1 PRESENCE OF AORTOCORONARY BYPASS GRAFT 12/09/2018 DEBBIE ESPINOSA DO Ot Z95.5 PRESENCE OF CORONARY ANGIOPLASTY IMPLANT 12/09/2018 DEBBIE ESPINOSA DO Ot Z99.81 DEPENDENCE ON SUPPLEMENTAL OXYGEN 12/11/2018 JONATHAN CRANE, JOSHUA Rausch Ot Z29. 8 ENCOUNTER FOR OTHER SPECIFIED PROPHYLACT 12/15/2018 JOSHUA CASTILLO MD, Ot Z29. 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 MANAGER JIMMIE ISCHEMIC HEART DISEASE, UNSPECIFIED 12/25/2018 W I50.9 HEAR T FAILURE, UNSPECIFIED 12/25/2018 W R06.02 [place]LEY RTNESS OF BREATH 12/25/2018 W R60.0 LOCA LIZED EDEMA 12/25/2018 Zepeda, Tita-Krista W 414.8 OTHER SPECIFIED FORMS OF CHRONIC ISCHEMIC HEART DISEASE 12/25/2018 Zepeda, Tita-Krista W 428.0 CONGESTIVE HEART FAILURE, UNSPECIFIED 12/25/2018 Zepeda, Tita-Krista W 782.3 EDEMA 12/25/2018 Zepeda, Tita-Krista W 786.05 SHORTNESS OF BREATH 12/25/2018 Zepeda, Tita-Krista W I25.9 CHRONIC ISCHEMIC HEART DISEASE, UNSPECIFIED 12/25/2018 Zepeda, Tita-Krista W I50.9 HEART FAILURE, UNSPECIFIED 12/25/2018 Zepeda, Tita-Krista W R06.02 SHORTNESS OF BREATH 12/25/2018 Zepeda, Tita-Krista W R60.0 LOCALIZED EDEMA 01/13/2019 W 414.01 COR ONARY ATHEROSCLEROSIS OF [place] CORONARY ARTERY 01/13/2019 W 428.0 VASHTI ESTIVE HEART FAILURE, UNSPECIFIED 01/13/2019 W 433.10 OCC LUSION AND STENOSIS OF CAROTID ARTERY, WITHOUT MENTION OF CEREBRAL INFARCTION 01/13/2019 W 786.05 [place] RTNESS OF BREATH 01/13/2019 W 786.2 COUGH 01/13/2019 W I25.10 ATH EROSCLEROTIC HEART DISEASE OF [place] CORONARY ARTERY WITHOUT ANGINA PECTORIS 01/13/2019 W I50.9 HEAR T FAILURE, UNSPECIFIED 01/13/2019 W I65.29 OCC LUSION AND STENOSIS OF UNSPECIFIED CAROTID ARTERY 01/13/2019 W R05 COUGH 01/13/2019 W R06.02 [place] RTNESS OF BREATH 01/13/2019 Zepeda, Tita-Krista W 428.0 CONGESTIVE HEART FAILURE, UNSPECIFIED 01/13/2019 Zepeda, Tita-Krista W I50.9 HEART FAILURE, UNSPECIFIED 01/13/2019 Zepeda, Tita-Krista W 414.01 CORONARY ATHEROSCLEROSIS OF [place] CORONARY ARTERY 01/13/2019 Zepeda, Tita-Krista W 428.0 CONGESTIVE HEART FAILURE, UNSPECIFIED 01/13/2019 Zepeda, Tita-Krista W I25.10 ATHEROSCLEROTIC HEART DISEASE OF [place] CORONARY ARTERY WITHOUT ANGINA PECTORIS 01/13/2019, Tita-Krista W I50.9 HEART FAILURE, UNSPECIFIED 01/13/2019 Zepeda, Tita-Krista W 414.01 CORONARY ATHEROSCLEROSIS OF [place] CORONARY ARTERY 01/13/2019, Tita-Krista W 428.0 CONGESTIVE HEART FAILURE, UNSPECIFIED 01/13/2019 Zepeda, Tita-Krista W 433.10 OCCLUSION AND STENOSIS OF CAROTID ARTERY, WITHOUT MENTION OF CEREBRAL INFARCTION 01/13/2019, Tita-Krista W I25.10 ATHEROSCLEROTIC HEART DISEASE OF [place] CORONARY ARTERY WITHOUT ANGINA PECTORIS 01/13/2019 Zepeda, Tita-Krista W I50.9 HEART FAILURE, UNSPECIFIED 01/13/2019 Zepeda, Tita-Krista W I65.29 OCCLUSION AND STENOSIS OF UNSPECIFIED CAROTID ARTERY 01/13/2019, Tita-Krista W 414.01 CORONARY ATHEROSCLEROSIS OF [place] CORONARY ARTERY 01/13/2019 Zepeda, Tita-Krista W 428.0 CONGESTIVE HEART FAILURE, UNSPECIFIED 01/13/2019 Zepeda, Tita-Krista W 433.10 OCCLUSION AND STENOSIS OF CAROTID ARTERY, WITHOUT MENTION OF CEREBRAL INFARCTION 01/13/2019 Zepeda, Tita-Krista W 786.05 SHORTNESS OF BREATH 01/13/2019 Zepeda, Tita-Krista W 786.2 COUGH 01/13/2019 Zepeda, Tita-Krista W I25.10 ATHEROSCLEROTIC HEART DISEASE OF [place] CORONARY ARTERY WITHOUT ANGINA PECTORIS 01/13/2019 Zepeda, Tita-Krista W I50.9 HEART FAILURE, UNSPECIFIED 01/13/2019 Zepeda, Tita-Krista W I65.29 OCCLUSION AND STENOSIS OF UNSPECIFIED CAROTID ARTERY 01/13/2019 Zepeda, TreKrista W R05 COUGH 01/13/2019 Zepeda, Mikeu W R06.02 SHORTNESS OF BREATH 01/13/2019 Zepeda, Mikeu W 414.01 CORONARY ATHEROSCLEROSIS OF [place] CORONARY ARTERY 01/13/2019 Zepeda, TreKrista W 428.0 CONGESTIVE HEART FAILURE, UNSPECIFIED 01/13/2019 Zepeda, TreKrista W 433.10 OCCLUSION AND STENOSIS OF CAROTID ARTERY, WITHOUT MENTION OF CEREBRAL INFARCTION 01/13/2019 Zepeda, TreKrista W 786.05 SHORTNESS OF BREATH 01/13/2019 Zepeda, TreKrista W 786.2 COUGH 01/13/2019 Zepeda, Mikeu W I25.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 78 OSTEOPHYTE, VERTEBRAE 02/15/2019 HORTENCIA LYNN MACHINE WHITENER Ot M47. 22 OTHER SPONDYLOSIS WITH RADICULOPATHY, CE 02/15/2019 HORTENCIA LYNN MACHINE WHITENER Ot M48. 02 SPINAL STENOSIS, CERVICAL REGION 03/03/2019 HORTENCIA LYNNP Ot M25. 78 OSTEOPHYTE, VERTEBRAE 03/03/2019 HORTENCIA LYNN MACHINE WHITENER Ot M47. 22 OTHER SPONDYLOSIS WITH RADICULOPATHY, CE 03/03/2019 HORTENCIA LYNNP Ot M48. 02 SPINAL STENOSIS, CERVICAL REGION 04/18/2019 JONATHAN CRANE, JOSHUA Rausch Ot Z29. 8 ENCOUNTER FOR OTHER SPECIFIED PROPHYLACT 04/18/2019 JUAREZ TOLENTINO MD Ot F20. 9 SCHIZOPHRENIA, UNSPECIFIED 04/18/2019 JUAREZ TOLENTINO MD, Ot F32. 9 MAJOR DEPRESSIVE DISORDER, SINGLE EPISOD 04/18/2019 JUAREZ TOLENTINO MD, Ot F41. 9 ANXIETY DISORDER, UNSPECIFIED 04/18/2019 JUAREZ TOLENTINO MD, Ot I11. 0 HYPERTENSIVE HEART DISEASE WITH HEART FA 04/18/2019 JUAREZ TOLENTINO MD, Ot I25.119 ATHSCL HEART DISEASE OF [place] COR ART W 04/18/2019 JUAREZ TOLENTINO MD, [...] 04/18/2019 JUAREZ TOLENTINO MD, Ot Z79. 02 MANAGER CUSTOMS (CURRENT) USE OF ANTITHROMBOTI 04/18/2019 JUAREZ TOLENTINO MD, Ot Z79. 82 MANAGER CUSTOMS (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 04/18/2019 JUAREZ TOLENTINO MD, Ot Z86.718 PERSONAL HISTORY OF OTHER VENOUS THROMBO 04/18/2019 JUAREZ TOLENTINO MD, Ot Z87.891 PERSONAL HISTORY OF NICOTINE DEPENDENCE 04/18/2019 JUAREZ TOLENTINO MD, Ot Z95. 1 PRESENCE OF AORTOCORONARY BYPASS GRAFT 04/18/2019 JUAREZ TOLENTINO MD Ot Z95. 5 PRESENCE OF CORONARY ANGIOPLASTY IMPLANT 04/18/2019 JUAREZ TOLENTINO MD, Ot Z95.820 PERIPHERAL VASCULAR ANGIOPLASTY STATUS W 04/18/2019 JUAREZ TOLENTINO MD, Ot Z99. 81 DEPENDENCE ON SUPPLEMENTAL OXYGEN 06/03/2019 CATE HERRERA APRN Ot F17.201 NICOTINE DEPENDENCE, UNSPECIFIED, IN REM 06/03/2019 CATE HERRERA APRN Ot J18.9 PNEUMONIA, UNSPECIFIED ORGANISM 06/03/2019 CATE HERRERA APRN Ot J44.9 CHRONIC OBSTRUCTIVE PULMONARY DISEASE, U 06/03/2019 CATE HERRERA WATER TREATMENT SPECIALIST Ot K76.9 LIVER DISEASE, UNSPECIFIED 06/03/2019 CATE HERRERA WATER TREATMENT SPECIALIST Ot R91.1 SOLITARY PULMONARY NODULE 06/03/2019 CATE HERERRA WATER TREATMENT SPECIALIST Ot R91.8 OTHER NONSPECIFIC ABNORMAL FINDING OF [place] 06/29/2019 CATE HERRERA APRN Ot F17.201 NICOTINE DEPENDENCE, UNSPECIFIED, IN REM 06/29/2019 CATE HERRERA APRN Ot J18.9 PNEUMONIA, UNSPECIFIED ORGANISM 06/29/2019 CATE HERRERA APRN Ot J44.9 CHRONIC OBSTRUCTIVE PULMONARY DISEASE, U 06/29/2019 CATE HERRERA APRN Ot K76.9 LIVER DISEASE, UNSPECIFIED 06/29/2019 CATE HERRERA WATER TREATMENT SPECIALIST Ot R91.1 SOLITARY PULMONARY NODULE 06/29/2019 CATE HERRERA WATER TREATMENT SPECIALIST Ot R91.8 OTHER NONSPECIFIC ABNORMAL FINDING OF [place] 11/09/2019 Ot 272.4 HYPE RLIPIDEMIA NEC/NOS 11/09/2019 Ot 401.9 HYPE RTENSION NOS 11/09/2019 Ot 414.00 COR ON ATHEROSCLER NOS TYPE VESSEL, NATIV 11/09/2019 Ot 428.0 VASHTI ESTIVE HEART FAILURE NOS 11/09/2019 Ot 433.10 CAR OTID ARTERY OCCLUSION W O CEREBRAL IN 11/09/2019 JOSHUA CASTILLO MD Ot 272. 4 HYPERLIPIDEMIA NEC/NOS 11/09/2019 JOSHUA CASTILLO MD Ot 401. 9 HYPERTENSION NOS 11/09/2019 JOSHUA CASTILLO MD Ot 414. 00 CORON ATHEROSCLER NOS TYPE VESSEL, NATIV 11/09/2019 JOSHUA CASTILLO MD Ot 428. 0 CONGESTIVE HEART FAILURE NOS 11/09/2019 JOSHUA CASTILLO MD Ot 433. 10 CAROTID ARTERY OCCLUSION W O CEREBRAL IN 11/09/2019 CATE HERRERA APRN Ot J44.9 CHRONIC OBSTRUCTIVE PULMONARY DISEASE, U 11/09/2019 JING HOLGUIN DO Ot M54.16 RADICULOPATHY, LUMBAR REGION 11/09/2019 YOUNG MCALLISTER Ot E78.2 MIXED HYPERLIPIDEMIA 11/09/2019 YOUNG MCALLISTER Ot I10 ESSENTIAL (PRIMARY) HYPERTENSION 11/09/2019 YOUNG MCALLISTER Ot I25.10 ATHSCL HEART DISEASE OF [place] CORONARY 11/09/2019 JOSHUA CASTILLO MD Ot E78. 2 MIXED HYPERLIPIDEMIA 11/09/2019 JOSHUA CASTILLO MD Ot F41. 9 ANXIETY DISORDER, UNSPECIFIED 11/09/2019 JOSHUA CASTILLO MD Ot I10 ESSENTIAL (PRIMARY) HYPERTENSION 11/09/2019 JOSHUA CASTILLO MD Ot I25. 10 ATHSCL HEART DISEASE OF [place] CORONARY 11/09/2019 JOSHUA CASTILLO MD Ot R07. 89 OTHER CHEST PAIN 11/09/2019 JOSHUA CASTILLO MD Ot Z72. 0 TOBACCO USE 11/09/2019 JOSHUA CASTILLO MD Ot E78. 5 HYPERLIPIDEMIA, UNSPECIFIED 11/09/2019 JOSHUA CASTILLO MD Ot F41. 9 ANXIETY DISORDER, UNSPECIFIED 11/09/2019 JOSHUA CASTILLO MD Ot I10 ESSENTIAL (PRIMARY) HYPERTENSION 11/09/2019 JOSHUA CASTILLO MD Ot I25. 10 ATHSCL HEART DISEASE OF [place] CORONARY 11/09/2019 JOSHUA CASTILLO MD Ot R07. 89 OTHER CHEST PAIN 11/09/2019 JOSHUA CASTILLO MD Ot Z72. 0 TOBACCO USE 11/09/2019 CATE HERRERA WATER TREATMENT SPECIALIST Ot J44.9 CHRONIC OBSTRUCTIVE PULMONARY DISEASE, U 11/09/2019 CATE HERRERA WATER TREATMENT SPECIALIST Ot R06.02 SHORTNESS OF BREATH 11/09/2019 CATE HERRERA WATER TREATMENT SPECIALIST Ot R06.2 WHEEZING 11/09/2019 CATE HERRERA WATER TREATMENT SPECIALIST Ot R09.02 HYPOXEMIA 11/09/2019 CATE HERRERA WATER TREATMENT SPECIALIST Ot R91.1 SOLITARY PULMONARY NODULE 11/09/2019 CATE HERRERA WATER TREATMENT SPECIALIST Ot J44.0 CHRONIC OBSTRUCTIVE PULMON DISEASE W ACU 11/09/2019 CATE HERRERA WATER TREATMENT SPECIALIST Ot R06.02 SHORTNESS OF BREATH 11/09/2019 CATE HERRERA APRN Ot R06.2 WHEEZING 11/09/2019 CATE HERRERA APRN Ot R09.02 HYPOXEMIA 11/09/2019 CATE HERRERA WATER TREATMENT SPECIALIST Ot R91.1 SOLITARY PULMONARY NODULE 11/09/2019 CATE HERRERA APRN Ot Z72.0 TOBACCO USE 11/09/2019 CELSO FORD COFFEE ROASTER-C Ot I70.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 2 MIXED HYPERLIPIDEMIA 11/09/2019 JOSHUA CASTILLO MD Ot I11. 0 HYPERTENSIVE HEART DISEASE WITH HEART FA 11/09/2019 JOSHUA CASTILLO MD Ot I25. 10 ATHSCL HEART DISEASE OF [place] CORONARY 11/09/2019 JOSHUA CASTILLO MD Ot I50. 9 HEART FAILURE, UNSPECIFIED 11/09/2019 JOSHUA CASTILLO MD Ot E78. 2 MIXED HYPERLIPIDEMIA 11/09/2019 JOSHUA CASTILLO MD Ot I11. 0 HYPERTENSIVE HEART DISEASE WITH HEART FA 11/09/2019 JOSHUA CASTILLO MD Ot I25. 10 ATHSCL HEART DISEASE OF [place] CORONARY 11/09/2019 JOSHUA CASTILLO MD Ot I50. 9 HEART FAILURE, UNSPECIFIED 11/09/2019 CATE HERRERA APRN Ot J18.9 PNEUMONIA, UNSPECIFIED ORGANISM 11/09/2019 CAET HERRERA APRN Ot J44.9 CHRONIC OBSTRUCTIVE PULMONARY DISEASE, U 11/09/2019 CATE HERRERA APRN Ot R91.8 OTHER NONSPECIFIC ABNORMAL FINDING OF [place] 11/09/2019 CATE HERRERA APRN Ot Z72.0 TOBACCO USE 11/09/2019 HORTENCIA LYNN Ot M19.011 PRIMARY OSTEOARTHRITIS, RIGHT SHOULDER 11/09/2019 HORTENCIA LYNN Ot M75. 81 OTHER SHOULDER LESIONS, RIGHT SHOULDER 11/09/2019 JOSHAU CASTILLO MD Ot I25. 10 ATHSCL HEART DISEASE OF [place] CORONARY 11/09/2019 JOSHUA CASTILLO MD Ot I50. 9 HEART FAILURE, UNSPECIFIED 11/09/2019 JOSHUA CASTILLO MD Ot J44. 9 CHRONIC OBSTRUCTIVE PULMONARY DISEASE, U 11/09/2019 JOSHUA CASTILLO MD Ot R06. 02 SHORTNESS OF BREATH 11/09/2019 CATE HERRERA WATER TREATMENT SPECIALIST Ot F10.20 ALCOHOL DEPENDENCE, UNCOMPLICATED 11/09/2019 CATE HERRERA WATER TREATMENT SPECIALIST Ot J44.9 CHRONIC OBSTRUCTIVE PULMONARY DISEASE, U 11/09/2019 SHABBIR HERRERAINE E WATER TREATMENT SPECIALIST Ot R06.02 SHORTNESS OF BREATH 11/09/2019 CATE HERRERA WATER TREATMENT SPECIALIST Ot R06.2 WHEEZING 11/09/2019 SHABBIR HERRERAINE E WATER TREATMENT SPECIALIST Ot R09.02 HYPOXEMIA 11/09/2019 SHABBIR HERRERAINE E WATER TREATMENT SPECIALIST Ot Z72.0 TOBACCO USE 11/09/2019 SHABBIR HERRERAINE Mitzi WATER TREATMENT SPECIALIST Ot F10.20 ALCOHOL DEPENDENCE, UNCOMPLICATED 11/09/2019 CATE HERRERA WATER TREATMENT SPECIALIST Ot J44.9 CHRONIC OBSTRUCTIVE PULMONARY DISEASE, U 11/09/2019 SHABBIR HERRERAINE Mitzi WATER TREATMENT SPECIALIST Ot R91.8 OTHER NONSPECIFIC ABNORMAL FINDING OF [place] 11/09/2019 CATE HERRERA WATER TREATMENT SPECIALIST Ot Z87.891 PERSONAL HISTORY OF NICOTINE DEPENDENCE 11/09/2019 CATE HERRERA WATER TREATMENT SPECIALIST Ot F10.20 ALCOHOL DEPENDENCE, UNCOMPLICATED 11/09/2019 CATE HERRERA WATER TREATMENT SPECIALIST Ot J44.9 CHRONIC OBSTRUCTIVE PULMONARY DISEASE, U 11/09/2019 CATE HERRERA WATER TREATMENT SPECIALIST Ot J98.4 OTHER DISORDERS OF LUNG 11/09/2019 CATE HERRERA WATER TREATMENT SPECIALIST Ot R91.8 OTHER NONSPECIFIC ABNORMAL FINDING OF [place] 11/09/2019 CATE HERRERA WATER TREATMENT SPECIALIST Ot Z72.0 TOBACCO USE 11/09/2019 JONATHAN CRANE, JOSHUA Rausch Ot I20. 8 OTHER FORMS OF ANGINA PECTORIS 11/09/2019 HORTENCIA LYNN MACHINE WHITENER Ot M25. 78 OSTEOPHYTE, VERTEBRAE 11/09/2019 HORTENCIA LYNN MACHINE WHITENER Ot M47. 22 OTHER SPONDYLOSIS WITH RADICULOPATHY, CE 11/09/2019 HORTENCIA LYNN MACHINE WHITENER Ot M48. 02 SPINAL STENOSIS, CERVICAL REGION 11/09/2019 SHABBIR HERRERAINE Mitzi WATER TREATMENT SPECIALIST Ot F17.201 NICOTINE DEPENDENCE, UNSPECIFIED, IN REM 11/09/2019 CATE HERRERA WATER TREATMENT SPECIALIST Ot J18.9 PNEUMONIA, UNSPECIFIED ORGANISM 11/09/2019 CATE HERRERA APRN Ot J44.9 CHRONIC OBSTRUCTIVE PULMONARY DISEASE, U 11/09/2019 CATE HERRERA APRN Ot K76.9 LIVER DISEASE, UNSPECIFIED 11/09/2019 CATE HERRERA APRN Ot R91.1 SOLITARY PULMONARY NODULE 11/09/2019 CATE HERRERA APRN Ot R91.8 OTHER NONSPECIFIC ABNORMAL FINDING OF [place] 11/09/2019 JUAREZ TOLENTINO MD Ot A41. 9 SEPSIS, UNSPECIFIED ORGANISM 11/09/2019 JUAREZ TOLENTINO MD Ot E78. 00 PURE HYPERCHOLESTEROLEMIA, UNSPECIFIED 11/09/2019 JUAREZ TOLENTINO MD, Ot F20. 9 SCHIZOPHRENIA, UNSPECIFIED 11/09/2019 JUAREZ TOLENTINO MD Ot F31. 9 BIPOLAR DISORDER, UNSPECIFIED 11/09/2019 JUAREZ TOLENTINO MD, Ot F41. 9 ANXIETY DISORDER, UNSPECIFIED 11/09/2019 JUAREZ TOLENTINO MD Ot G47. 9 SLEEP DISORDER, UNSPECIFIED 11/09/2019 JUAREZ TOLENTINO MD Ot I10 ESSENTIAL (PRIMARY) HYPERTENSION 11/09/2019 JUAREZ TOLENTINO MD Ot I25.110 ATHSCL HEART DISEASE OF [place] COR ART W 11/09/2019 JUAREZ TOLENTINO MD Ot I25. 2 OLD MYOCARDIAL INFARCTION 11/09/2019 JUAREZ TOLENTINO MD, Ot I25. 5 ISCHEMIC CARDIOMYOPATHY 11/09/2019 JUAREZ TOLENTINO MD Ot I65. 23 OCCLUSION AND STENOSIS OF BILATERAL BREWER 11/09/2019 JUAREZ TOLENTINO MD Ot I73. 9 PERIPHERAL VASCULAR DISEASE, UNSPECIFIED 11/09/2019 JUAREZ TOLENTINO MD Ot J18. 9 PNEUMONIA, UNSPECIFIED ORGANISM 11/09/2019 JUAREZ TOLENTINO MD Ot J44. 0 CHR OBSTRUCTIVE PULMON DISEASE WITH (ACU 11/09/2019 JUAREZ TOLENTINO MD Ot J44. 1 CHRONIC OBSTRUCTIVE PULMONARY DISEASE W 11/09/2019 JUAREZ TOLENTION MD Ot J96. 20 ACUTE AND CHR RESP FAILURE, UNSP W HYPOX 11/09/2019 JUAREZ TOLENTINO MD Ot K21. 9 GASTRO-ESOPHAGEAL REFLUX DISEASE WITHOUT 11/09/2019 JUAREZ TOLENTINO MD Ot M19. 91 PRIMARY OSTEOARTHRITIS, UNSPECIFIED SITE 11/09/2019 JUAREZ TOLENTINO MD, Ot M54. 9 DORSALGIA, UNSPECIFIED 11/09/2019 JUAREZ TOLENTINO MD, Ot R04. 2 HEMOPTYSIS 11/09/2019 JUAREZ TOLENTINO MD, Ot Z79. 02 MANAGER CUSTOMS (CURRENT) USE OF ANTITHROMBOTI 11/09/2019 JUAREZ TOLENTINO MD, Ot Z86.718 PERSONAL HISTORY OF OTHER VENOUS THROMBO 11/09/2019 JUAREZ TOLENTINO MD, Ot Z86. 73 PRSNL HX OF TIA (TIA), AND CEREB INFRC W 11/09/2019 JUAREZ TOLENTINO MD, Ot Z86. 79 PERSONAL HISTORY OF OTHER DISEASES OF TH 11/09/2019 JUAREZ TOLENTINO MD, Ot Z87. 11 PERSONAL HISTORY OF PEPTIC ULCER DISEASE 11/09/2019 JUAREZ TOLENTINO MD, Ot Z87.891 PERSONAL HISTORY OF NICOTINE DEPENDENCE 11/09/2019 JUAREZ TOLENTINO MD, Ot Z95. 1 PRESENCE OF AORTOCORONARY BYPASS GRAFT 11/09/2019 JUAREZ TOLENTINO MD Ot Z95. 5 PRESENCE OF CORONARY ANGIOPLASTY IMPLANT 11/09/2019 JUAREZ TOLENTINO MD, Ot Z95.820 PERIPHERAL VASCULAR ANGIOPLASTY STATUS W 11/09/2019 JUAREZ TOLENTINO MD Ot Z99. 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 4 HYPERLIPIDEMIA NEC/NOS 11/09/2019 JOSHUA CASTILLO MD Ot 401. 9 HYPERTENSION NOS 11/09/2019 JOSHUA CASTILLO MD Ot 414. 00 CORON ATHEROSCLER NOS TYPE VESSEL, NATIV 11/09/2019 JOSHUA CASTILLO MD Ot 428. 0 CONGESTIVE HEART FAILURE NOS 11/09/2019 JOSHUA CASTILLO MD Ot 433. 10 CAROTID ARTERY OCCLUSION W O CEREBRAL IN 11/09/2019 CATE HERRERA WATER TREATMENT SPECIALIST Ot J44.9 CHRONIC OBSTRUCTIVE PULMONARY DISEASE, U 11/09/2019 EZIO DO JING Tavares Ot M54.16 RADICULOPATHY, LUMBAR REGION 11/09/2019 YOUNG MCALLISTER Ot E78.2 MIXED HYPERLIPIDEMIA 11/09/2019 YOUNG MCALLISTER Ot I10 ESSENTIAL (PRIMARY) HYPERTENSION 11/09/2019 YOUNG MCALLISTER Ot I25.10 ATHSCL HEART DISEASE OF [place] CORONARY 11/09/2019 JOSHUA CASTILLO MD Ot E78. 2 MIXED HYPERLIPIDEMIA 11/09/2019 JOSHUA CASTILLO MD Ot F41. 9 ANXIETY DISORDER, UNSPECIFIED 11/09/2019 JOSHUA CASTILLO MD Ot I10 ESSENTIAL (PRIMARY) HYPERTENSION 11/09/2019 JOSHUA CASTILLO MD Ot I25. 10 ATHSCL HEART DISEASE OF [place] CORONARY 11/09/2019 JOSHUA CASTILLO MD Ot R07. 89 OTHER CHEST PAIN 11/09/2019 JOSHUA CASTILLO MD Ot Z72. 0 TOBACCO USE 11/09/2019 JOSHUA CASTILLO MD Ot E78. 5 HYPERLIPIDEMIA, UNSPECIFIED 11/09/2019 JOSHUA CASTILLO MD Ot F41. 9 ANXIETY DISORDER, UNSPECIFIED 11/09/2019 JOSHUA CASTILLO MD Ot I10 ESSENTIAL (PRIMARY) HYPERTENSION 11/09/2019 JOSHUA CASTILLO MD Ot I25. 10 ATHSCL HEART DISEASE OF [place] CORONARY 11/09/2019 JOSHUA CASTILLO MD Ot R07. 89 OTHER CHEST PAIN 11/09/2019 JOSHUA CASTILLO MD Ot Z72. 0 TOBACCO USE 11/09/2019 CATE HERRERA WATER TREATMENT SPECIALIST Ot J44.9 CHRONIC OBSTRUCTIVE PULMONARY DISEASE, U 11/09/2019 CATE HERRERA WATER TREATMENT SPECIALIST Ot R06.02 SHORTNESS OF BREATH 11/09/2019 CATE HERRERA WATER TREATMENT SPECIALIST Ot R06.2 WHEEZING 11/09/2019 CATE HERRERA WATER TREATMENT SPECIALIST Ot R09.02 HYPOXEMIA 11/09/2019 CATE HERRERA WATER TREATMENT SPECIALIST Ot R91.1 SOLITARY PULMONARY NODULE 11/09/2019 CATE HERRERA WATER TREATMENT SPECIALIST Ot J44.0 CHRONIC OBSTRUCTIVE PULMON DISEASE W ACU 11/09/2019 CATE HERRERA APRN Ot R06.02 SHORTNESS OF BREATH 11/09/2019 CATE HERRERA WATER TREATMENT SPECIALIST Ot R06.2 WHEEZING 11/09/2019 CATE HERRERA APRN Ot R09.02 HYPOXEMIA 11/09/2019 CATE HERRERA WATER TREATMENT SPECIALIST Ot R91.1 SOLITARY PULMONARY NODULE 11/09/2019 CATE HERRERA WATER TREATMENT SPECIALIST Ot Z72.0 TOBACCO USE 11/09/2019 CELSO FORD COFFEE ROASTER-C Ot I70.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 2 MIXED HYPERLIPIDEMIA 11/09/2019 JOSHUA CASTILLO MD Ot I11. 0 HYPERTENSIVE HEART DISEASE WITH HEART FA 11/09/2019 JOSHUA CASTILLO MD Ot I25. 10 ATHSCL HEART DISEASE OF [place] CORONARY 11/09/2019 JOSHUA CASTILLO MD Ot I50. 9 HEART FAILURE, UNSPECIFIED 11/09/2019 JOSHUA CASTILLO MD Ot E78. 2 MIXED HYPERLIPIDEMIA 11/09/2019 JOSHUA CASTILLO MD Ot I11. 0 HYPERTENSIVE HEART DISEASE WITH HEART FA 11/09/2019 JOSHUA CASTILLO MD Ot I25. 10 ATHSCL HEART DISEASE OF [place] CORONARY 11/09/2019 JOSHUA CASTILLO MD Ot I50. 9 HEART FAILURE, UNSPECIFIED 11/09/2019 CATE HERRERA APRN Ot J18.9 PNEUMONIA, UNSPECIFIED ORGANISM 11/09/2019 CATE HERRERA WATER TREATMENT SPECIALIST Ot J44.9 CHRONIC OBSTRUCTIVE PULMONARY DISEASE, U 11/09/2019 CATE HERRERA WATER TREATMENT SPECIALIST Ot R91.8 OTHER NONSPECIFIC ABNORMAL FINDING OF [place] 11/09/2019 CATE HERRERA WATER TREATMENT SPECIALIST Ot Z72.0 TOBACCO USE 11/09/2019 HORTENCIA LYNN Ot M19.011 PRIMARY OSTEOARTHRITIS, RIGHT SHOULDER 11/09/2019 HORTENCIA LYNN Ot M75. 81 OTHER SHOULDER LESIONS, RIGHT SHOULDER 11/09/2019 JOSHUA CASTILLO MD Ot I25. 10 ATHSCL HEART DISEASE OF [place] CORONARY 11/09/2019 JOSHUA CASTILLO MD Ot I50. 9 HEART FAILURE, UNSPECIFIED 11/09/2019 JOSHUA CASTILLO MD Ot J44. 9 CHRONIC OBSTRUCTIVE PULMONARY DISEASE, U 11/09/2019 JOSHUA CASTILLO MD Ot R06. 02 SHORTNESS OF BREATH 11/09/2019 CATE HERRERA WATER TREATMENT SPECIALIST Ot F10.20 ALCOHOL DEPENDENCE, UNCOMPLICATED 11/09/2019 CATE HERRERA WATER TREATMENT SPECIALIST Ot J44.9 CHRONIC OBSTRUCTIVE PULMONARY DISEASE, U 11/09/2019 CATE HERRERA WATER TREATMENT SPECIALIST Ot R06.02 SHORTNESS OF BREATH 11/09/2019 CATE HERRERA WATER TREATMENT SPECIALIST Ot R06.2 WHEEZING 11/09/2019 CATE HERRERA WATER TREATMENT SPECIALIST Ot R09.02 HYPOXEMIA 11/09/2019 CATE HERRERA WATER TREATMENT SPECIALIST Ot Z72.0 TOBACCO USE 11/09/2019 CATE HERRERA WATER TREATMENT SPECIALIST Ot F10.20 ALCOHOL DEPENDENCE, UNCOMPLICATED 11/09/2019 CATE HERRREA WATER TREATMENT SPECIALIST Ot J44.9 CHRONIC OBSTRUCTIVE PULMONARY DISEASE, U 11/09/2019 CATE HERRERA WATER TREATMENT SPECIALIST Ot R91.8 OTHER NONSPECIFIC ABNORMAL FINDING OF [place] 11/09/2019 CATE HERRERA WATER TREATMENT SPECIALIST Ot Z87.891 PERSONAL HISTORY OF NICOTINE DEPENDENCE 11/09/2019 CATE HERRERA WATER TREATMENT SPECIALIST Ot F10.20 ALCOHOL DEPENDENCE, UNCOMPLICATED 11/09/2019 CATE HERRERA WATER TREATMENT SPECIALIST Ot J44.9 CHRONIC OBSTRUCTIVE PULMONARY DISEASE, U 11/09/2019 CATE HERRERA WATER TREATMENT SPECIALIST Ot J98.4 OTHER DISORDERS OF LUNG 11/09/2019 CATE HERRERA WATER TREATMENT SPECIALIST Ot R91.8 OTHER NONSPECIFIC ABNORMAL FINDING OF [place] 11/09/2019 CATE HERRERA WATER TREATMENT SPECIALIST Ot Z72.0 TOBACCO USE 11/09/2019 JOSHUA CASTILLO MD Ot I20. 8 OTHER FORMS OF ANGINA PECTORIS 11/09/2019 HORTENCIA LYNN MACHINE WHITENER Ot M25. 78 OSTEOPHYTE, VERTEBRAE 11/09/2019 HORTENCIA LYNN MACHINE WHITENER Ot M47. 22 OTHER SPONDYLOSIS WITH RADICULOPATHY, CE 11/09/2019 HORTENCIA LYNN MACHINE WHITENER Ot M48. 02 SPINAL STENOSIS, CERVICAL REGION 11/09/2019 CATE HERRERA WATER TREATMENT SPECIALIST Ot F17.201 NICOTINE DEPENDENCE, UNSPECIFIED, IN REM 11/09/2019 CATE HERRERA APRN Ot J18.9 PNEUMONIA, UNSPECIFIED ORGANISM 11/09/2019 CATE HERRERA APRN Ot J44.9 CHRONIC OBSTRUCTIVE PULMONARY DISEASE, U 11/09/2019 CATE HERRERA APRN Ot K76.9 LIVER DISEASE, UNSPECIFIED 11/09/2019 CATE HERRERA APRN Ot R91.1 SOLITARY PULMONARY NODULE 11/09/2019 CATE HERRERA APRN Ot R91.8 OTHER NONSPECIFIC ABNORMAL FINDING OF MARLYS 11/09/2019 RAJAN CRANE, JUAREZ Chapin Ot A41. 9 SEPSIS, UNSPECIFIED ORGANISM 11/09/2019 JUAREZ TOLENTINO MD Ot E78. 00 PURE HYPERCHOLESTEROLEMIA, UNSPECIFIED 11/09/2019 JUAREZ TOLENTINO MD Ot F20. 9 SCHIZOPHRENIA, UNSPECIFIED 11/09/2019 JUAREZ TOLENTINO MD Ot F31. 9 BIPOLAR DISORDER, UNSPECIFIED 11/09/2019 JUAREZ TOLENTINO MD Ot F41. 9 ANXIETY DISORDER, UNSPECIFIED 11/09/2019 JUAREZ TOLENTINO MD Ot G47. 9 SLEEP DISORDER, UNSPECIFIED 11/09/2019 JUAREZ TOLENTINO MD Ot I10 ESSENTIAL (PRIMARY) HYPERTENSION 11/09/2019 JUAREZ TOLENTINO MD Ot I25.110 ATHSCL HEART DISEASE OF [place] COR ART W 11/09/2019 JUAREZ TOLENTINO MD Ot I25. 2 OLD MYOCARDIAL INFARCTION 11/09/2019 JUAREZ TOLENTINO MD Ot I25. 5 ISCHEMIC CARDIOMYOPATHY 11/09/2019 JUAREZ TOLENTINO MD Ot I65. 23 OCCLUSION AND STENOSIS OF BILATERAL BREWER 11/09/2019 JUAREZ TOLENTINO MD Ot I73. 9 PERIPHERAL VASCULAR DISEASE, UNSPECIFIED 11/09/2019 JUAREZ TOLENTINO MD Ot J18. 9 PNEUMONIA, UNSPECIFIED ORGANISM 11/09/2019 JUAREZ TOLENTINO MD Ot J44. 0 CHR OBSTRUCTIVE PULMON DISEASE WITH (ACU 11/09/2019 JUAREZ TOLENTINO MD Ot J44. 1 CHRONIC OBSTRUCTIVE PULMONARY DISEASE W 11/09/2019 JUAREZ TOLENTINO MD Ot J96. 20 ACUTE AND CHR RESP FAILURE, UNSP W HYPOX 11/09/2019 JUAREZ TOLENTINO MD Ot K21. 9 GASTRO-ESOPHAGEAL REFLUX DISEASE WITHOUT 11/09/2019 JUAREZ TOLENTINO MD, Ot M19. 91 PRIMARY OSTEOARTHRITIS, UNSPECIFIED SITE 11/09/2019 JUAREZ TOLENTINO MD, Ot M54. 9 DORSALGIA, UNSPECIFIED 11/09/2019 JUAREZ TOLENTINO MD, Ot R04. 2 HEMOPTYSIS 11/09/2019 JUAREZ TOLENTINO MD, Ot Z79. 02 SKILLED NURSING (CURRENT) USE OF ANTITHROMBOTI 11/09/2019 JUAREZ TOLENTINO MD, Ot Z86.718 PERSONAL HISTORY OF OTHER VENOUS THROMBO 11/09/2019 JUAREZ TOLENTINO MD, Ot Z86. 73 PRSNL HX OF TIA (TIA), AND CEREB INFRC W 11/09/2019 JUAREZ TOLENTINO MD, Ot Z86. 79 PERSONAL HISTORY OF OTHER DISEASES OF TH 11/09/2019 JUAREZ TOLENTINO MD, Ot Z87. 11 PERSONAL HISTORY OF PEPTIC ULCER DISEASE 11/09/2019 JUAREZ TOLENTINO MD, Ot Z87.891 PERSONAL HISTORY OF NICOTINE DEPENDENCE 11/09/2019 JUAREZ TOLENTINO MD, Ot Z95. 1 PRESENCE OF AORTOCORONARY BYPASS GRAFT 11/09/2019 JUAREZ TOLENTINO MD Ot Z95. 5 PRESENCE OF CORONARY ANGIOPLASTY IMPLANT 11/09/2019 JUAREZ TOLENTINO MD, Ot Z95.820 PERIPHERAL VASCULAR ANGIOPLASTY STATUS W 11/09/2019 JUAREZ TOLENTINO MD Ot Z99. 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 4 HYPERLIPIDEMIA NEC/NOS 11/09/2019 JOSHUA CASTILLO MD Ot 401. 9 HYPERTENSION NOS 11/09/2019 JOSHUA CASTILLO MD Ot 414. 00 CORON ATHEROSCLER NOS TYPE VESSEL, NATIV 11/09/2019 JOSHUA CASTILLO MD Ot 428. 0 CONGESTIVE HEART FAILURE NOS 11/09/2019 JOSHUA CASTILLO MD Ot 433. 10 CAROTID ARTERY OCCLUSION W O CEREBRAL IN 11/09/2019 CATE HERRERA APRN Ot J44.9 CHRONIC OBSTRUCTIVE PULMONARY DISEASE, U 11/09/2019 EZIO BURDICK JING Tavares Ot M54.16 RADICULOPATHY, LUMBAR REGION 11/09/2019 YOUNG MCALLISTER Ot E78.2 MIXED HYPERLIPIDEMIA 11/09/2019 YOUNG MCALLISTER Ot I10 ESSENTIAL (PRIMARY) HYPERTENSION 11/09/2019 YOUNG MCALLISTER Ot I25.10 ATHSCL HEART DISEASE OF [place] CORONARY 11/09/2019 JOSHUA CASTILLO MD Ot E78. 2 MIXED HYPERLIPIDEMIA 11/09/2019 JOSHUA CASTILLO MD Ot F41. 9 ANXIETY DISORDER, UNSPECIFIED 11/09/2019 JOSHUA CASTILLO MD Ot I10 ESSENTIAL (PRIMARY) HYPERTENSION 11/09/2019 JOSHUA CASTILLO MD Ot I25. 10 ATHSCL HEART DISEASE OF [place] CORONARY 11/09/2019 JOSHUA CASTILLO MD Ot R07. 89 OTHER CHEST PAIN 11/09/2019 JOSHUA CASTILLO MD Ot Z72. 0 TOBACCO USE 11/09/2019 JOSHUA CASTILLO MD Ot E78. 5 HYPERLIPIDEMIA, UNSPECIFIED 11/09/2019 JOSHUA CASTILLO MD Ot F41. 9 ANXIETY DISORDER, UNSPECIFIED 11/09/2019 JOSHUA CASTILLO MD Ot I10 ESSENTIAL (PRIMARY) HYPERTENSION 11/09/2019 JOSHUA CASTILLO MD Ot I25. 10 ATHSCL HEART DISEASE OF [place] CORONARY 11/09/2019 JOSHUA CASTILLO MD Ot R07. 89 OTHER CHEST PAIN 11/09/2019 JOSHUA CASTILLO MD Ot Z72. 0 TOBACCO USE 11/09/2019 CATE HERRERA APRN Ot J44.9 CHRONIC OBSTRUCTIVE PULMONARY DISEASE, U 11/09/2019 CATE HERRERA APRN Ot R06.02 SHORTNESS OF BREATH 11/09/2019 CATE HERRERA APRN Ot R06.2 WHEEZING 11/09/2019 CATE HERRERA APRN Ot R09.02 HYPOXEMIA 11/09/2019 CATE HERRERA APRN Ot R91.1 SOLITARY PULMONARY NODULE 11/09/2019 CATE HERRERA APRN Ot J44.0 CHRONIC OBSTRUCTIVE PULMON DISEASE W ACU 11/09/2019 CATE HERRERA APRN Ot R06.02 SHORTNESS OF BREATH 11/09/2019 CATE HERRERA APRN Ot R06.2 WHEEZING 11/09/2019 CATE HERRERA APRN Ot R09.02 HYPOXEMIA 11/09/2019 CATE HERRERA APRN Ot R91.1 SOLITARY PULMONARY NODULE 11/09/2019 CATE HERRERA APRN Ot Z72.0 TOBACCO USE 11/09/2019 CELSO FORD COFFEE ROASTER-C Ot I70.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 2 MIXED HYPERLIPIDEMIA 11/09/2019 JOSHUA CASTILLO MD Ot I11. 0 HYPERTENSIVE HEART DISEASE WITH HEART FA 11/09/2019 JOSHUA CASTILLO MD Ot I25. 10 ATHSCL HEART DISEASE OF [place] CORONARY 11/09/2019 JOSHUA CASTILLO MD Ot I50. 9 HEART FAILURE, UNSPECIFIED 11/09/2019 JOSHUA CASTILLO MD Ot E78. 2 MIXED HYPERLIPIDEMIA 11/09/2019 JOSHUA CASTILLO MD Ot I11. 0 HYPERTENSIVE HEART DISEASE WITH HEART FA 11/09/2019 JOSHUA CASTILLO MD Ot I25. 10 ATHSCL HEART DISEASE OF [place] CORONARY 11/09/2019 JOSHUA CASTILLO MD Ot I50. 9 HEART FAILURE, UNSPECIFIED 11/09/2019 CATE HERRERA APRN Ot J18.9 PNEUMONIA, UNSPECIFIED ORGANISM 11/09/2019 CATE HERRERA APRN Ot J44.9 CHRONIC OBSTRUCTIVE PULMONARY DISEASE, U 11/09/2019 CATE HERRERA APRN Ot R91.8 OTHER NONSPECIFIC ABNORMAL FINDING OF [place] 11/09/2019 CATE HERRERA APRN Ot Z72.0 TOBACCO USE 11/09/2019 HORTENCIA LYNN Ot M19.011 PRIMARY OSTEOARTHRITIS, RIGHT SHOULDER 11/09/2019 HORTENCIA LYNN Ot M75. 81 OTHER SHOULDER LESIONS, RIGHT SHOULDER 11/09/2019 JOSHUA CSATILLO MD Ot I25. 10 ATHSCL HEART DISEASE OF [place] CORONARY 11/09/2019 JONATHAN CRANE, JOSHUA Rausch Ot I50. 9 HEART FAILURE, UNSPECIFIED 11/09/2019 JOSHUA CASTILLO MD Ot J44. 9 CHRONIC OBSTRUCTIVE PULMONARY DISEASE, U 11/09/2019 JOSHUA CASTILLO MD Ot R06. 02 SHORTNESS OF BREATH 11/09/2019 CATE HERRERA WATER TREATMENT SPECIALIST Ot F10.20 ALCOHOL DEPENDENCE, UNCOMPLICATED 11/09/2019 SHABBIR HERRERAINE Mitzi WATER TREATMENT SPECIALIST Ot J44.9 CHRONIC OBSTRUCTIVE PULMONARY DISEASE, U 11/09/2019 SHABBIR HERRERAINE E WATER TREATMENT SPECIALIST Ot R06.02 SHORTNESS OF BREATH 11/09/2019 SHABBIR HERRERAINE E WATER TREATMENT SPECIALIST Ot R06.2 WHEEZING 11/09/2019 SHABBIR HERRERAINE E WATER TREATMENT SPECIALIST Ot R09.02 HYPOXEMIA 11/09/2019 SHABBIR HERRERAINE E WATER TREATMENT SPECIALIST Ot Z72.0 TOBACCO USE 11/09/2019 SHABBIR HERRERAINE E WATER TREATMENT SPECIALIST Ot F10.20 ALCOHOL DEPENDENCE, UNCOMPLICATED 11/09/2019 SHABBIR HERRERAINE Mitzi WATER TREATMENT SPECIALIST Ot J44.9 CHRONIC OBSTRUCTIVE PULMONARY DISEASE, U 11/09/2019 JAVIER CATE E WATER TREATMENT SPECIALIST Ot R91.8 OTHER NONSPECIFIC ABNORMAL FINDING OF [place] 11/09/2019 SHABBIR HERRERAINE Mitzi WATER TREATMENT SPECIALIST Ot Z87.891 PERSONAL HISTORY OF NICOTINE DEPENDENCE 11/09/2019 CATE HERRERA WATER TREATMENT SPECIALIST Ot F10.20 ALCOHOL DEPENDENCE, UNCOMPLICATED 11/09/2019 SHABBIR HERRERAINE Mitzi WATER TREATMENT SPECIALIST Ot J44.9 CHRONIC OBSTRUCTIVE PULMONARY DISEASE, U 11/09/2019 SHABBIR HERRERAINE Mitzi WATER TREATMENT SPECIALIST Ot J98.4 OTHER DISORDERS OF LUNG 11/09/2019 SHABBIR HERRERAINE Mitzi WATER TREATMENT SPECIALIST Ot R91.8 OTHER NONSPECIFIC ABNORMAL FINDING OF [place] 11/09/2019 SHABBIR HERRERAINE Mitzi WATER TREATMENT SPECIALIST Ot Z72.0 TOBACCO USE 11/09/2019 JOSHUA CASTILLO MD Ot I20. 8 OTHER FORMS OF ANGINA PECTORIS 11/09/2019 HORTENCIA LYNN Ot M25. 78 OSTEOPHYTE, VERTEBRAE 11/09/2019 HORTENCIA LYNN MACHINE WHITENER Ot M47. 22 OTHER SPONDYLOSIS WITH RADICULOPATHY, CE 11/09/2019 HORTENCIA LYNNP Ot M48. 02 SPINAL STENOSIS, CERVICAL REGION 11/09/2019 CATE HERRERA APRN Ot F17.201 NICOTINE DEPENDENCE, UNSPECIFIED, IN REM 11/09/2019 CATE HERRERA APRN Ot J18.9 PNEUMONIA, UNSPECIFIED ORGANISM 11/09/2019 CATE HERRERA APRN Ot J44.9 CHRONIC OBSTRUCTIVE PULMONARY DISEASE, U 11/09/2019 CATE HERRERA APRN Ot K76.9 LIVER DISEASE, UNSPECIFIED 11/09/2019 CATE HERRERA APRN Ot R91.1 SOLITARY PULMONARY NODULE 11/09/2019 CATE HERRERA APRN Ot R91.8 OTHER NONSPECIFIC ABNORMAL FINDING OF [place] 11/09/2019 RAJAN CRANE, JUAREZ Chapin Ot A41. 9 SEPSIS, UNSPECIFIED ORGANISM 11/09/2019 JUAREZ TOLENTINO MD Ot E78. 00 PURE HYPERCHOLESTEROLEMIA, UNSPECIFIED 11/09/2019 JUAREZ TOLENTINO MD Ot F20. 9 SCHIZOPHRENIA, UNSPECIFIED 11/09/2019 JUAREZ TOLENTINO MD Ot F31. 9 BIPOLAR DISORDER, UNSPECIFIED 11/09/2019 JUAREZ TOLENTINO MD Ot F41. 9 ANXIETY DISORDER, UNSPECIFIED 11/09/2019 JUAREZ TOLENTINO MD Ot G47. 9 SLEEP DISORDER, UNSPECIFIED 11/09/2019 JUAREZ TOLENTINO MD Ot I10 ESSENTIAL (PRIMARY) HYPERTENSION 11/09/2019 JUAREZ TOLENTINO MD Ot I25.110 ATHSCL HEART DISEASE OF [place] COR ART W 11/09/2019 JUAREZ TOLENTINO MD Ot I25. 2 OLD MYOCARDIAL INFARCTION 11/09/2019 JUAREZ TOLENTINO MD Ot I25. 5 ISCHEMIC CARDIOMYOPATHY 11/09/2019 JUAREZ TOLENTINO MD Ot I65. 23 OCCLUSION AND STENOSIS OF BILATERAL BREWER 11/09/2019 JUAREZ TOLENTINO MD Ot I73. 9 PERIPHERAL VASCULAR DISEASE, UNSPECIFIED 11/09/2019 JUAREZ TOLENTINO MD Ot J18. 9 PNEUMONIA, UNSPECIFIED ORGANISM 11/09/2019 JUAREZ TOLENTINO MD Ot J44. 0 CHR OBSTRUCTIVE PULMON DISEASE WITH (ACU 11/09/2019 JUAREZ TOLENTINO MD Ot J44. 1 CHRONIC OBSTRUCTIVE PULMONARY DISEASE W 11/09/2019 JUAREZ TOLENTINO MD Ot J96. 20 ACUTE AND CHR RESP FAILURE, UNSP W HYPOX 11/09/2019 JUAREZ TOLENTINO MD, Ot K21. 9 GASTRO-ESOPHAGEAL REFLUX DISEASE WITHOUT 11/09/2019 JUAREZ TOLENTINO MD, Ot M19. 91 PRIMARY OSTEOARTHRITIS, UNSPECIFIED SITE 11/09/2019 JUAREZ TOLENTINO MD, Ot M54. 9 DORSALGIA, UNSPECIFIED 11/09/2019 JUAREZ TOLENTINO MD, Ot R04. 2 HEMOPTYSIS 11/09/2019 JUAREZ TOLENTINO MD, Ot Z79. 02 MANAGER CUSTOMS (CURRENT) USE OF ANTITHROMBOTI 11/09/2019 JUAREZ TOLENTINO MD, Ot Z86.718 PERSONAL HISTORY OF OTHER VENOUS THROMBO 11/09/2019 JUAREZ TOLENTINO MD, Ot Z86. 73 PRSNL HX OF TIA (TIA), AND CEREB INFRC W 11/09/2019 JUAREZ TOLENTINO MD, Ot Z86. 79 PERSONAL HISTORY OF OTHER DISEASES OF TH 11/09/2019 JUAREZ TOLENTINO MD, Ot Z87. 11 PERSONAL HISTORY OF PEPTIC ULCER DISEASE 11/09/2019 JUAREZ TOLENTINO MD, Ot Z87.891 PERSONAL HISTORY OF NICOTINE DEPENDENCE 11/09/2019 JUAREZ TOLENTINO MD Ot Z95. 1 PRESENCE OF AORTOCORONARY BYPASS GRAFT 11/09/2019 JUAREZ TOLENTINO MD Ot Z95. 5 PRESENCE OF CORONARY ANGIOPLASTY IMPLANT 11/09/2019 JUAREZ TOLENTINO MD Ot Z95.820 PERIPHERAL VASCULAR ANGIOPLASTY STATUS W 11/09/2019 JUAREZ TOLENTINO MD Ot Z99. 81 DEPENDENCE ON SUPPLEMENTAL OXYGEN 11/10/2019 JUAREZ TOLENTINO MD, Ot A41. 9 SEPSIS, UNSPECIFIED ORGANISM 11/10/2019 JUAREZ TOLENTINO MD, Ot E78. 00 PURE HYPERCHOLESTEROLEMIA, UNSPECIFIED 11/10/2019 JUAREZ TOLENTINO MD, Ot F20. 9 SCHIZOPHRENIA, UNSPECIFIED 11/10/2019 JUAREZ TOLENTINO MD, Ot F31. 9 BIPOLAR DISORDER, UNSPECIFIED 11/10/2019 JUAREZ TOLENTINO MD, Ot F41. 9 ANXIETY DISORDER, UNSPECIFIED 11/10/2019 JUAREZ TOLENTINO MD, Ot G47. 9 SLEEP DISORDER, UNSPECIFIED 11/10/2019 JUAREZ TOLENTINO MD, Ot I10 ESSENTIAL (PRIMARY) HYPERTENSION 11/10/2019 JUAREZ TOLENTINO MD, Ot I25.110 ATHSCL HEART DISEASE OF [place] COR ART W 11/10/2019 JUAREZ TOLENTINO MD, Ot I25. 2 OLD MYOCARDIAL INFARCTION 11/10/2019 JUAREZ TOLENTINO MD, Ot I25. 5 ISCHEMIC CARDIOMYOPATHY 11/10/2019 JUAREZ TOLENTINO MD, Ot I65. 23 OCCLUSION AND STENOSIS OF BILATERAL BREWER 11/10/2019 JUAREZ TOLENTINO MD, Ot I73. 9 PERIPHERAL VASCULAR DISEASE, UNSPECIFIED 11/10/2019 JUAREZ TOLENTINO MD, Ot J18. 9 PNEUMONIA, UNSPECIFIED ORGANISM 11/10/2019 JUAREZ TOLENTINO MD, Ot J44. 0 CHR OBSTRUCTIVE PULMON DISEASE WITH (ACU 11/10/2019 JUAREZ TOLENTINO MD, Ot J44. 1 CHRONIC OBSTRUCTIVE PULMONARY DISEASE W 11/10/2019 JUAREZ TOLENTINO MD, Ot J96. 20 ACUTE AND CHR RESP FAILURE, UNSP W HYPOX 11/10/2019 JUAREZ TOLENTINO MD, Ot K21. 9 GASTRO-ESOPHAGEAL REFLUX DISEASE WITHOUT 11/10/2019 JUAREZ TOLENTINO MD, Ot M19. 91 PRIMARY OSTEOARTHRITIS, UNSPECIFIED SITE 11/10/2019 JUAREZ TOLENTINO MD, Ot M54. 9 DORSALGIA, UNSPECIFIED 11/10/2019 JUAREZ TOLENTINO MD, Ot R04. 2 HEMOPTYSIS 11/10/2019 JUAREZ TOLENTINO MD, Ot Z79. 02 MANAGER CUSTOMS (CURRENT) USE OF ANTITHROMBOTI 11/10/2019 JUAREZ TOLENTINO MD, Ot Z86.718 PERSONAL HISTORY OF OTHER VENOUS THROMBO 11/10/2019 JUAREZ TOLENTINO MD, Ot Z86. 73 PRSNL HX OF TIA (TIA), AND CEREB INFRC W 11/10/2019 JUAREZ TOLENTINO MD, Ot Z86. 79 PERSONAL HISTORY OF OTHER DISEASES OF TH 11/10/2019 JUAREZ TOLENTINO MD, Ot Z87. 11 PERSONAL HISTORY OF PEPTIC ULCER DISEASE 11/10/2019 JUAREZ TOLENTINO MD, Ot Z87.891 PERSONAL HISTORY OF NICOTINE DEPENDENCE 11/10/2019 RAJAN MD, JUAREZ M Ot Z95. 1 PRESENCE OF AORTOCORONARY BYPASS GRAFT 11/10/2019 RAJAN CRANE, JUAREZ Chapin Ot Z95. 5 PRESENCE OF CORONARY ANGIOPLASTY IMPLANT 11/10/2019 RAJAN CRANE, JUAREZ Chapin Ot Z95.820 PERIPHERAL VASCULAR ANGIOPLASTY STATUS W 11/10/2019 JUAREZ TOLENTINO MD Ot Z99. 81 DEPENDENCE ON SUPPLEMENTAL OXYGEN 11/10/2019 JUAREZ TOLENTINO MD Ot A41. 9 SEPSIS, UNSPECIFIED ORGANISM 11/10/2019 JUAREZ TOLENTINO MD Ot E78. 00 PURE HYPERCHOLESTEROLEMIA, UNSPECIFIED 11/10/2019 JUAREZ TOLENTINO MD, Ot F20. 9 SCHIZOPHRENIA, UNSPECIFIED 11/10/2019 JUAREZ TOLENTINO MD, Ot F31. 9 BIPOLAR DISORDER, UNSPECIFIED 11/10/2019 JUAREZ TOLENTINO MD, Ot F41. 9 ANXIETY DISORDER, UNSPECIFIED 11/10/2019 JUAREZ TOLENTINO MD, Ot G47. 9 SLEEP DISORDER, UNSPECIFIED 11/10/2019 JUAREZ TOLENTINO MD Ot I10 ESSENTIAL (PRIMARY) HYPERTENSION 11/10/2019 JUAREZ TOLENTINO MD, Ot I25.110 ATHSCL HEART DISEASE OF [place] COR ART W 11/10/2019 JUAREZ TOLENTINO MD Ot I25. 2 OLD MYOCARDIAL INFARCTION 11/10/2019 JUAREZ TOLENTINO MD, Ot I25. 5 ISCHEMIC CARDIOMYOPATHY 11/10/2019 JUAREZ TOLENTINO MD Ot I65. 23 OCCLUSION AND STENOSIS OF BILATERAL BREWER 11/10/2019 JUAREZ TOLENTINO MD Ot I73. 9 PERIPHERAL VASCULAR DISEASE, UNSPECIFIED 11/10/2019 JUAREZ TOLENTINO MD, Ot J18. 9 PNEUMONIA, UNSPECIFIED ORGANISM 11/10/2019 JUAREZ TOLENTINO MD, Ot J44. 0 CHR OBSTRUCTIVE PULMON DISEASE WITH (ACU 11/10/2019 JUAREZ TOLENTINO MD Ot J44. 1 CHRONIC OBSTRUCTIVE PULMONARY DISEASE W 11/10/2019 JUAREZ TOLENTINO MD Ot J96. 20 ACUTE AND CHR RESP FAILURE, UNSP W HYPOX 11/10/2019 JUAREZ TOLENTINO MD Ot K21. 9 GASTRO-ESOPHAGEAL REFLUX DISEASE WITHOUT 11/10/2019 JUAREZ TOLENTINO MD Ot M19. 91 PRIMARY OSTEOARTHRITIS, UNSPECIFIED SITE 11/10/2019 JUAREZ TOLENTINO MD, Ot M54. 9 DORSALGIA, UNSPECIFIED 11/10/2019 JUAREZ TOLENTINO MD, Ot R04. 2 HEMOPTYSIS 11/10/2019 JUAREZ TOLENTINO MD, Ot Z79. 02 SKILLED NURSING (CURRENT) USE OF ANTITHROMBOTI 11/10/2019 JUAREZ TOLENTINO MD, Ot Z86.718 PERSONAL HISTORY OF OTHER VENOUS THROMBO 11/10/2019 JUAREZ TOLENTINO MD, Ot Z86. 73 PRSNL HX OF TIA (TIA), AND CEREB INFRC W 11/10/2019 JUAREZ TOLENTINO MD, Ot Z86. 79 PERSONAL HISTORY OF OTHER DISEASES OF TH 11/10/2019 JUAREZ TLOENTINO MD, Ot Z87. 11 PERSONAL HISTORY OF PEPTIC ULCER DISEASE 11/10/2019 JUAREZ TOLENTINO MD, Ot Z87.891 PERSONAL HISTORY OF NICOTINE DEPENDENCE 11/10/2019 JUAREZ TOLENTINO MD Ot Z95. 1 PRESENCE OF AORTOCORONARY BYPASS GRAFT 11/10/2019 JUAREZ TOLENTINO MD Ot Z95. 5 PRESENCE OF CORONARY ANGIOPLASTY IMPLANT 11/10/2019 JUAREZ TOLENTINO MD Ot Z95.820 PERIPHERAL VASCULAR ANGIOPLASTY STATUS W 11/10/2019 JUAREZ TOLENTINO MD Ot Z99. 81 DEPENDENCE ON SUPPLEMENTAL OXYGEN 11/10/2019 JUAREZ TOLENTINO MD Ot A41. 9 SEPSIS, UNSPECIFIED ORGANISM 11/10/2019 JUAREZ TOLENTINO MD Ot E78. 00 PURE HYPERCHOLESTEROLEMIA, UNSPECIFIED 11/10/2019 JUAREZ TOLENTINO MD Ot F20. 9 SCHIZOPHRENIA, UNSPECIFIED 11/10/2019 JUAREZ TOLENTINO MD, Ot F31. 9 BIPOLAR DISORDER, UNSPECIFIED 11/10/2019 JUAREZ TOLENTINO MD, Ot F41. 9 ANXIETY DISORDER, UNSPECIFIED 11/10/2019 JUAREZ TOLENTINO MD, Ot G47. 9 SLEEP DISORDER, UNSPECIFIED 11/10/2019 JUAREZ TOLENTINO MD Ot I10 ESSENTIAL (PRIMARY) HYPERTENSION 11/10/2019 JUAREZ TOLENTINO MD Ot I25.110 ATHSCL HEART DISEASE OF [place] COR ART W 11/10/2019 JUAREZ TOLENTINO MD, Ot I25. 2 OLD MYOCARDIAL INFARCTION 11/10/2019 JUAREZ TOLENTINO MD, Ot I25. 5 ISCHEMIC CARDIOMYOPATHY 11/10/2019 JUAREZ TOLENTINO MD, Ot I65. 23 OCCLUSION AND STENOSIS OF BILATERAL BREWER 11/10/2019 JUAREZ TOLENTINO MD, Ot I73. 9 PERIPHERAL VASCULAR DISEASE, UNSPECIFIED 11/10/2019 JUAREZ TOLENTINO MD, Ot J18. 9 PNEUMONIA, UNSPECIFIED ORGANISM 11/10/2019 JUAREZ TOLENTINO MD, Ot J44. 0 CHR OBSTRUCTIVE PULMON DISEASE WITH (ACU 11/10/2019 JUAREZ TOLENTINO MD, Ot J44. 1 CHRONIC OBSTRUCTIVE PULMONARY DISEASE W 11/10/2019 JUAREZ TOLENTINO MD, Ot J96. 20 ACUTE AND CHR RESP FAILURE, UNSP W HYPOX 11/10/2019 JUAREZ TOLENTINO MD, Ot K21. 9 GASTRO-ESOPHAGEAL REFLUX DISEASE WITHOUT 11/10/2019 JUAREZ TOLENTINO MD, Ot M19. 91 PRIMARY OSTEOARTHRITIS, UNSPECIFIED SITE 11/10/2019 JUAREZ TOLENTINO MD, Ot M54. 9 DORSALGIA, UNSPECIFIED 11/10/2019 JUAREZ TOLENTINO MD, Ot R04. 2 HEMOPTYSIS 11/10/2019 JUAREZ TOLENTINO MD, Ot Z79. 02 MANAGER CUSTOMS (CURRENT) USE OF ANTITHROMBOTI 11/10/2019 JUAREZ TOLNETINO MD, Ot Z86.718 PERSONAL HISTORY OF OTHER VENOUS THROMBO 11/10/2019 JUAREZ TOLENTINO MD, Ot Z86. 73 PRSNL HX OF TIA (TIA), AND CEREB INFRC W 11/10/2019 JUAREZ TOLENTINO MD, Ot Z86. 79 PERSONAL HISTORY OF OTHER DISEASES OF TH 11/10/2019 JUAREZ TOLENTINO MD, Ot Z87. 11 PERSONAL HISTORY OF PEPTIC ULCER DISEASE 11/10/2019 JUAREZ TOLENTINO MD, Ot Z87.891 PERSONAL HISTORY OF NICOTINE DEPENDENCE 11/10/2019 JUAREZ TOLENTINO MD, Ot Z95. 1 PRESENCE OF AORTOCORONARY BYPASS GRAFT 11/10/2019 JUAREZ TOLENTINO MD Ot Z95. 5 PRESENCE OF CORONARY ANGIOPLASTY IMPLANT 11/10/2019 JUAREZ TOLENTINO MD, Ot Z95.820 PERIPHERAL VASCULAR ANGIOPLASTY STATUS W 11/10/2019 JUAREZ TOLENTINO MD Ot Z99. 81 DEPENDENCE ON SUPPLEMENTAL OXYGEN 11/10/2019 JUAREZ TOLENTINO MD, Ot A41. 9 SEPSIS, UNSPECIFIED ORGANISM 11/10/2019 JUAREZ TOLENTINO MD, Ot E78. 00 PURE HYPERCHOLESTEROLEMIA, UNSPECIFIED 11/10/2019 JUAREZ TOLENTINO MD, Ot F20. 9 SCHIZOPHRENIA, UNSPECIFIED 11/10/2019 JUAREZ TOLENTINO MD, Ot F31. 9 BIPOLAR DISORDER, UNSPECIFIED 11/10/2019 JUAREZ TOLENTINO MD, Ot F41. 9 ANXIETY DISORDER, UNSPECIFIED 11/10/2019 JUAREZ TOLENTINO MD, Ot G47. 9 SLEEP DISORDER, UNSPECIFIED 11/10/2019 JUAREZ TOLENTINO MD Ot I10 ESSENTIAL (PRIMARY) HYPERTENSION 11/10/2019 JUAREZ TOLENTINO MD, Ot I25.110 ATHSCL HEART DISEASE OF [place] COR ART W 11/10/2019 JUAREZ TOLENTINO MD, Ot I25. 2 OLD MYOCARDIAL INFARCTION 11/10/2019 JUAREZ TOLENTINO MD, Ot I25. 5 ISCHEMIC CARDIOMYOPATHY 11/10/2019 JUAREZ TOLENTINO MD Ot I65. 23 OCCLUSION AND STENOSIS OF BILATERAL BREWER 11/10/2019 JUAREZ TOLENTINO MD Ot I73. 9 PERIPHERAL VASCULAR DISEASE, UNSPECIFIED 11/10/2019 JUAREZ TOLENTINO MD, Ot J18. 9 PNEUMONIA, UNSPECIFIED ORGANISM 11/10/2019 JUAREZ TOLENTINO MD Ot J44. 0 CHR OBSTRUCTIVE PULMON DISEASE WITH (ACU 11/10/2019 JUAREZ TOLENTINO MD, Ot J44. 1 CHRONIC OBSTRUCTIVE PULMONARY DISEASE W 11/10/2019 JUAREZ TOLENTINO MD Ot J96. 20 ACUTE AND CHR RESP FAILURE, UNSP W HYPOX 11/10/2019 JUAREZ TOLENTINO MD, Ot K21. 9 GASTRO-ESOPHAGEAL REFLUX DISEASE WITHOUT 11/10/2019 JUAREZ TOLENTINO MD, Ot M19. 91 PRIMARY OSTEOARTHRITIS, UNSPECIFIED SITE 11/10/2019 JUAREZ TOLENTINO MD, Ot M54. 9 DORSALGIA, UNSPECIFIED 11/10/2019 JUAREZ TOLENTINO MD Ot R04. 2 HEMOPTYSIS 11/10/2019 JUAREZ TOLENTINO MD, Ot Z79. 02 SKILLED NURSING (CURRENT) USE OF ANTITHROMBOTI 11/10/2019 JUAREZ TOLENTINO MD, Ot Z86.718 PERSONAL HISTORY OF OTHER VENOUS THROMBO 11/10/2019 JUAREZ TOLENTINO MD, Ot Z86. 73 PRSNL HX OF TIA (TIA), AND CEREB INFRC W 11/10/2019 JUAREZ TOLENTINO MD, Ot Z86. 79 PERSONAL HISTORY OF OTHER DISEASES OF TH 11/10/2019 JUAREZ TOLENTINO MD, Ot Z87. 11 PERSONAL HISTORY OF PEPTIC ULCER DISEASE 11/10/2019 JUAREZ TOLENTINO MD, Ot Z87.891 PERSONAL HISTORY OF NICOTINE DEPENDENCE 11/10/2019 JUAREZ TOLENTINO MD, Ot Z95. 1 PRESENCE OF AORTOCORONARY BYPASS GRAFT 11/10/2019 JUAREZ TOLENTINO MD Ot Z95. 5 PRESENCE OF CORONARY ANGIOPLASTY IMPLANT 11/10/2019 JUAREZ TOLENTINO MD, Ot Z95.820 PERIPHERAL VASCULAR ANGIOPLASTY STATUS W 11/10/2019 JUAREZ TOLENTINO MD Ot Z99. 81 DEPENDENCE ON SUPPLEMENTAL OXYGEN 11/10/2019 Ot 272.4 HYPE RLIPIDEMIA NEC/NOS 11/10/2019 Ot 401.9 HYPE RTENSION NOS 11/10/2019 Ot 414.00 COR ON ATHEROSCLER NOS TYPE VESSEL, NATIV 11/10/2019 Ot 428.0 VASHTI ESTIVE HEART FAILURE NOS 11/10/2019 Ot 433.10 CAR OTID ARTERY OCCLUSION W O CEREBRAL IN 11/10/2019 JOSHUA CASTILLO MD Ot 272. 4 HYPERLIPIDEMIA NEC/NOS 11/10/2019 JOSHUA CASTILLO MD Ot 401. 9 HYPERTENSION NOS 11/10/2019 JOSHUA CASTILLO MD Ot 414. 00 CORON ATHEROSCLER NOS TYPE VESSEL, NATIV 11/10/2019 JOSHUA CASTILLO MD Ot 428. 0 CONGESTIVE HEART FAILURE NOS 11/10/2019 JOSHUA CASTILLO MD Ot 433. 10 CAROTID ARTERY OCCLUSION W O CEREBRAL IN 11/10/2019 CATE HERRERA APRN Ot J44.9 CHRONIC OBSTRUCTIVE PULMONARY DISEASE, U 11/10/2019 JING HOLGUIN DO Ot M54.16 RADICULOPATHY, LUMBAR REGION 11/10/2019 YOUNG MCALLISTER Ot E78.2 MIXED HYPERLIPIDEMIA 11/10/2019 YOUNG MCALLISTER Ot I10 ESSENTIAL (PRIMARY) HYPERTENSION 11/10/2019 YOUNG MCALLISTER Ot I25.10 ATHSCL HEART DISEASE OF [place] CORONARY 11/10/2019 JOSHUA CASTILLO MD Ot E78. 2 MIXED HYPERLIPIDEMIA 11/10/2019 JONATHAN CRANE, JOSHUA Rausch Ot F41. 9 ANXIETY DISORDER, UNSPECIFIED 11/10/2019 JONATHAN CRANE, JOSHUA Rausch Ot I10 ESSENTIAL (PRIMARY) HYPERTENSION 11/10/2019 JONATHAN CRANE, JOSHUA Rausch Ot I25. 10 ATHSCL HEART DISEASE OF [place] CORONARY 11/10/2019 JOSHUA CASTILLO MD Ot R07. 89 OTHER CHEST PAIN 11/10/2019 JOSHUA CASTILLO MD Ot Z72. 0 TOBACCO USE 11/10/2019 JOSHUA CASTILLO MD Ot E78. 5 HYPERLIPIDEMIA, UNSPECIFIED 11/10/2019 JOSHUA CASTILLO MD Ot F41. 9 ANXIETY DISORDER, UNSPECIFIED 11/10/2019 JOSHUA CASTILLO MD Ot I10 ESSENTIAL (PRIMARY) HYPERTENSION 11/10/2019 JOSHUA CASTILLO MD Ot I25. 10 ATHSCL HEART DISEASE OF [place] CORONARY 11/10/2019 JOSHUA CASTILLO MD Ot R07. 89 OTHER CHEST PAIN 11/10/2019 JOSHUA CASTILLO MD Ot Z72. 0 TOBACCO USE 11/10/2019 CATE HERRERA WATER TREATMENT SPECIALIST Ot J44.9 CHRONIC OBSTRUCTIVE PULMONARY DISEASE, U 11/10/2019 CATE HERRERA WATER TREATMENT SPECIALIST Ot R06.02 SHORTNESS OF BREATH 11/10/2019 CATE HERRERA WATER TREATMENT SPECIALIST Ot R06.2 WHEEZING 11/10/2019 CATE HERRERA WATER TREATMENT SPECIALIST Ot R09.02 HYPOXEMIA 11/10/2019 SHABBIR HERRERAINE Mitzi WATER TREATMENT SPECIALIST Ot R91.1 SOLITARY PULMONARY NODULE 11/10/2019 CATE HERRERA WATER TREATMENT SPECIALIST Ot J44.0 CHRONIC OBSTRUCTIVE PULMON DISEASE W ACU 11/10/2019 CATE HERRERA WATER TREATMENT SPECIALIST Ot R06.02 SHORTNESS OF BREATH 11/10/2019 CATE HERRERA WATER TREATMENT SPECIALIST Ot R06.2 WHEEZING 11/10/2019 CATE HERRERA E WATER TREATMENT SPECIALIST Ot R09.02 HYPOXEMIA 11/10/2019 CATE HERRERA APRN Ot R91.1 SOLITARY PULMONARY NODULE 11/10/2019 CATE HERRERA APRN Ot Z72.0 TOBACCO USE 11/10/2019 CELSO FORD COFFEE ROASTER-C Ot I70.212 ATHSCL [place] ARTERIES OF EXTRM W INTRMT 11/10/2019 JOSHUA CASTILLO MD Ot E78. 2 MIXED HYPERLIPIDEMIA 11/10/2019 JOSHUA CASTILLO MD Ot I11. 0 HYPERTENSIVE HEART DISEASE WITH HEART FA 11/10/2019 JOSHUA CASTILLO MD Ot I25. 10 ATHSCL HEART DISEASE OF [place] CORONARY 11/10/2019 JOSHUA CASTILLO MD Ot I50. 9 HEART FAILURE, UNSPECIFIED 11/10/2019 JOSHUA CASTILLO MD Ot E78. 2 MIXED HYPERLIPIDEMIA 11/10/2019 JOSHUA CASTILLO MD Ot I11. 0 HYPERTENSIVE HEART DISEASE WITH HEART FA 11/10/2019 JOSHUA CASTILLO MD Ot I25. 10 ATHSCL HEART DISEASE OF [place] CORONARY 11/10/2019 JOSHUA CASTILLO MD Ot I50. 9 HEART FAILURE, UNSPECIFIED 11/10/2019 CATE HERRERA APRN Ot J18.9 PNEUMONIA, UNSPECIFIED ORGANISM 11/10/2019 CATE HERRERA APRN Ot J44.9 CHRONIC OBSTRUCTIVE PULMONARY DISEASE, U 11/10/2019 CATE HERRERA APRN Ot R91.8 OTHER NONSPECIFIC ABNORMAL FINDING OF [place] 11/10/2019 CATE HERRERA APRN Ot Z72.0 TOBACCO USE 11/10/2019 HORTENCIA LYNNP Ot M19.011 PRIMARY OSTEOARTHRITIS, RIGHT SHOULDER 11/10/2019 HORTENCIA LYNN MACHINE WHITENER Ot M75. 81 OTHER SHOULDER LESIONS, RIGHT SHOULDER 11/10/2019 JOSHUA CASTILLO MD Ot I25. 10 ATHSCL HEART DISEASE OF [place] CORONARY 11/10/2019 JOSHUA CASTILLO MD Ot I50. 9 HEART FAILURE, UNSPECIFIED 11/10/2019 JOSHUA CASTILLO MD Ot J44. 9 CHRONIC OBSTRUCTIVE PULMONARY DISEASE, U 11/10/2019 JOSHUA CASTILLO MD Ot R06. 02 SHORTNESS OF BREATH 11/10/2019 CATE HERRERA APRN Ot F10.20 ALCOHOL DEPENDENCE, UNCOMPLICATED 11/10/2019 CATE HERRERA WATER TREATMENT SPECIALIST Ot J44.9 CHRONIC OBSTRUCTIVE PULMONARY DISEASE, U 11/10/2019 CATE HERRERA WATER TREATMENT SPECIALIST Ot R06.02 SHORTNESS OF BREATH 11/10/2019 CATE HERRERA WATER TREATMENT SPECIALIST Ot R06.2 WHEEZING 11/10/2019 CATE HERRERA WATER TREATMENT SPECIALIST Ot R09.02 HYPOXEMIA 11/10/2019 CATE HERRERA WATER TREATMENT SPECIALIST Ot Z72.0 TOBACCO USE 11/10/2019 CATE HERRERA WATER TREATMENT SPECIALIST Ot F10.20 ALCOHOL DEPENDENCE, UNCOMPLICATED 11/10/2019 CATE HERRERA WATER TREATMENT SPECIALIST Ot J44.9 CHRONIC OBSTRUCTIVE PULMONARY DISEASE, U 11/10/2019 CATE HERRERA WATER TREATMENT SPECIALIST Ot R91.8 OTHER NONSPECIFIC ABNORMAL FINDING OF [place] 11/10/2019 CATE HERRERA WATER TREATMENT SPECIALIST Ot Z87.891 PERSONAL HISTORY OF NICOTINE DEPENDENCE 11/10/2019 CATE HERRERA WATER TREATMENT SPECIALIST Ot F10.20 ALCOHOL DEPENDENCE, UNCOMPLICATED 11/10/2019 CATE HERRERA WATER TREATMENT SPECIALIST Ot J44.9 CHRONIC OBSTRUCTIVE PULMONARY DISEASE, U 11/10/2019 CATE HERRERA WATER TREATMENT SPECIALIST Ot J98.4 OTHER DISORDERS OF LUNG 11/10/2019 CATE HERRERA WATER TREATMENT SPECIALIST Ot R91.8 OTHER NONSPECIFIC ABNORMAL FINDING OF [place] 11/10/2019 CATE HERRERA WATER TREATMENT SPECIALIST Ot Z72.0 TOBACCO USE 11/10/2019 JONATHAN CRANE, JOSHUA Rausch Ot I20. 8 OTHER FORMS OF ANGINA PECTORIS 11/10/2019 HORTENCIA LYNN MACHINE WHITENER Ot M25. 78 OSTEOPHYTE, VERTEBRAE 11/10/2019 HORTENCIA LYNN MACHINE WHITENER Ot M47. 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 02 SPINAL STENOSIS, CERVICAL REGION 11/10/2019 CATE HERRERA WATER TREATMENT SPECIALIST Ot F17.201 NICOTINE DEPENDENCE, UNSPECIFIED, IN REM 11/10/2019 CATE HERRERA WATER TREATMENT SPECIALIST Ot J18.9 PNEUMONIA, UNSPECIFIED ORGANISM 11/10/2019 SHABBIR HERRERAINE Mitzi WATER TREATMENT SPECIALIST Ot J44.9 CHRONIC OBSTRUCTIVE PULMONARY DISEASE, U 11/10/2019 CATE HERRERA WATER TREATMENT SPECIALIST Ot K76.9 LIVER DISEASE, UNSPECIFIED 11/10/2019 CATE HERRERA APRN Ot R91.1 SOLITARY PULMONARY NODULE 11/10/2019 CATE HERRERA APRN Ot R91.8 OTHER NONSPECIFIC ABNORMAL FINDING OF [place] 11/10/2019 RAJAN CRANE, JUAREZ Chapin Ot A41. 9 SEPSIS, UNSPECIFIED ORGANISM 11/10/2019 RAJAN CRANE, JUAREZ Chapin Ot E78. 00 PURE HYPERCHOLESTEROLEMIA, UNSPECIFIED 11/10/2019 JUAREZ TOLENTINO MD Ot F20. 9 SCHIZOPHRENIA, UNSPECIFIED 11/10/2019 RAJAN CRANE, JUAREZ Chapin Ot F31. 9 BIPOLAR DISORDER, UNSPECIFIED 11/10/2019 JUAREZ TOLENTINO MD, Ot F41. 9 ANXIETY DISORDER, UNSPECIFIED 11/10/2019 JUAREZ TOLENTINO MD, Ot G47. 9 SLEEP DISORDER, UNSPECIFIED 11/10/2019 JUAREZ TOLENTINO MD Ot I10 ESSENTIAL (PRIMARY) HYPERTENSION 11/10/2019 JUAREZ TOLENTINO MD, Ot I25.110 ATHSCL HEART DISEASE OF [place] COR ART W 11/10/2019 JUAREZ TOLENTINO MD, Ot I25. 2 OLD MYOCARDIAL INFARCTION 11/10/2019 JUAREZ TOLENTINO MD, Ot I25. 5 ISCHEMIC CARDIOMYOPATHY 11/10/2019 JUAREZ TOLENTINO MD Ot I65. 23 OCCLUSION AND STENOSIS OF BILATERAL BREWER 11/10/2019 JUAREZ TOLENTINO MD Ot I73. 9 PERIPHERAL VASCULAR DISEASE, UNSPECIFIED 11/10/2019 JUAREZ TOLENTINO MD Ot J18. 9 PNEUMONIA, UNSPECIFIED ORGANISM 11/10/2019 JUAREZ TOLENTINO MD Ot J44. 0 CHR OBSTRUCTIVE PULMON DISEASE WITH (ACU 11/10/2019 JUAREZ TOLENTINO MD, Ot J44. 1 CHRONIC OBSTRUCTIVE PULMONARY DISEASE W 11/10/2019 JUAREZ TOLENTINO MD Ot J96. 20 ACUTE AND CHR RESP FAILURE, UNSP W HYPOX 11/10/2019 JUAREZ TOLENTINO MD Ot K21. 9 GASTRO-ESOPHAGEAL REFLUX DISEASE WITHOUT 11/10/2019 JUAREZ TOLENTINO MD Ot M19. 91 PRIMARY OSTEOARTHRITIS, UNSPECIFIED SITE 11/10/2019 JUAREZ TOLENTINO MD, Ot M54. 9 DORSALGIA, UNSPECIFIED 11/10/2019 JUAREZ TOLENTINO MD, Ot R04. 2 HEMOPTYSIS 11/10/2019 JUAREZ TOLENTINO MD Ot Z79. 02 SKILLED NURSING (CURRENT) USE OF ANTITHROMBOTI 11/10/2019 JUAREZ TOLENTINO MD, Ot Z86.718 PERSONAL HISTORY OF OTHER VENOUS THROMBO 11/10/2019 JUAREZ TOLENTINO MD, Ot Z86. 73 PRSNL HX OF TIA (TIA), AND CEREB INFRC W 11/10/2019 JUAREZ TOLENTINO MD Ot Z86. 79 PERSONAL HISTORY OF OTHER DISEASES OF TH 11/10/2019 JUAREZ TOLENTINO MD, Ot Z87. 11 PERSONAL HISTORY OF PEPTIC ULCER DISEASE 11/10/2019 JUAREZ TOLENTINO MD, Ot Z87.891 PERSONAL HISTORY OF NICOTINE DEPENDENCE 11/10/2019 JUAREZ TOLENTINO MD Ot Z95. 1 PRESENCE OF AORTOCORONARY BYPASS GRAFT 11/10/2019 JUAREZ TOLENTINO MD Ot Z95. 5 PRESENCE OF CORONARY ANGIOPLASTY IMPLANT 11/10/2019 JUAREZ TOLENTINO MD Ot Z95.820 PERIPHERAL VASCULAR ANGIOPLASTY STATUS W 11/10/2019 JUAREZ TOLENTINO MD Ot Z99. 81 DEPENDENCE ON SUPPLEMENTAL OXYGEN 11/11/2019 JUAREZ TOLENTINO MD Ot A41. 9 SEPSIS, UNSPECIFIED ORGANISM 11/11/2019 JUAREZ TOLENTINO MD Ot E78. 00 PURE HYPERCHOLESTEROLEMIA, UNSPECIFIED 11/11/2019 JUAREZ TOLENTINO MD Ot F20. 9 SCHIZOPHRENIA, UNSPECIFIED 11/11/2019 JUAREZ TOLENTINO MD Ot F31. 9 BIPOLAR DISORDER, UNSPECIFIED 11/11/2019 JUAREZ TOLENTINO MD, Ot F41. 9 ANXIETY DISORDER, UNSPECIFIED 11/11/2019 JUAREZ TOLENTINO MD Ot G47. 9 SLEEP DISORDER, UNSPECIFIED 11/11/2019 JUAREZ TOLENTINO MD Ot I10 ESSENTIAL (PRIMARY) HYPERTENSION 11/11/2019 JUAREZ TOLENTINO MD, Ot I11. 0 HYPERTENSIVE HEART DISEASE WITH HEART FA 11/11/2019 JUAREZ TOLENTINO MD Ot I25.110 ATHSCL HEART DISEASE OF [place] COR ART W 11/11/2019 JUAREZ TOLENTINO MD, Ot I25. 2 OLD MYOCARDIAL INFARCTION 11/11/2019 JUAREZ TOLENTINO MD, Ot I25. 5 ISCHEMIC CARDIOMYOPATHY 11/11/2019 JUAREZ TOLENTINO MD, Ot I50. 9 HEART FAILURE, UNSPECIFIED 11/11/2019 JUAREZ TOLENTINO MD, Ot I65. 23 OCCLUSION AND STENOSIS OF BILATERAL BREWER 11/11/2019 JUAREZ TOLENTINO MD, Ot I73. 9 PERIPHERAL VASCULAR DISEASE, UNSPECIFIED 11/11/2019 JUAREZ TOLENTINO MD, Ot J18. 9 PNEUMONIA, UNSPECIFIED ORGANISM 11/11/2019 JUAREZ TOLENTINO MD, Ot J44. 0 CHR OBSTRUCTIVE PULMON DISEASE WITH (ACU 11/11/2019 JUAREZ TOLENTINO MD, Ot J44. 1 CHRONIC OBSTRUCTIVE PULMONARY DISEASE W 11/11/2019 JUAREZ TOLENTINO MD, Ot J96. 20 ACUTE AND CHR RESP FAILURE, UNSP W HYPOX 11/11/2019 JUAREZ TOLENTINO MD, Ot K21. 9 GASTRO-ESOPHAGEAL REFLUX DISEASE WITHOUT 11/11/2019 JUAREZ TOLENTINO MD, Ot M19. 91 PRIMARY OSTEOARTHRITIS, UNSPECIFIED SITE 11/11/2019 JUAREZ TOLENTINO MD, Ot M54. 9 DORSALGIA, UNSPECIFIED 11/11/2019 JUAREZ TOLENTINO MD, Ot R04. 2 HEMOPTYSIS 11/11/2019 JUAREZ TOLENTINO MD, Ot R65. 20 SEVERE SEPSIS WITHOUT SEPTIC SHOCK 11/11/2019 JUAREZ TOLENTINO MD, Ot Z79. 02 MANAGER CUSTOMS (CURRENT) USE OF ANTITHROMBOTI 11/11/2019 JUAREZ TOLENTINO MD, Ot Z86.718 PERSONAL HISTORY OF OTHER VENOUS THROMBO 11/11/2019 JUAREZ TOLENTINO MD, Ot Z86. 73 PRSNL HX OF TIA (TIA), AND CEREB INFRC W 11/11/2019 JUAREZ TOLENTINO MD, Ot Z86. 79 PERSONAL HISTORY OF OTHER DISEASES OF TH 11/11/2019 JUAREZ TOLENTINO MD, Ot Z87. 11 PERSONAL HISTORY OF PEPTIC ULCER DISEASE 11/11/2019 JUAREZ TOLENTINO MD, Ot Z87.891 PERSONAL HISTORY OF NICOTINE DEPENDENCE 11/11/2019 JUAREZ TOLENTINO MD, Ot Z95. 1 PRESENCE OF AORTOCORONARY BYPASS GRAFT 11/11/2019 JUAREZ TOLENTINO MD Ot Z95. 5 PRESENCE OF CORONARY ANGIOPLASTY IMPLANT 11/11/2019 JUAREZ TOLENTINO MD Ot Z95.820 PERIPHERAL VASCULAR ANGIOPLASTY STATUS W 11/11/2019 JUAREZ TOLENTINO MD Ot Z99. 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 4 HYPERLIPIDEMIA NEC/NOS 11/12/2019 JOSHUA CASTILLO MD Ot 401. 9 HYPERTENSION NOS 11/12/2019 JOSHUA CASTILLO MD Ot 414. 00 CORON ATHEROSCLER NOS TYPE VESSEL, NATIV 11/12/2019 JOSHUA CASTILLO MD Ot 428. 0 CONGESTIVE HEART FAILURE NOS 11/12/2019 JOSHUA CASTILLO MD Ot 433. 10 CAROTID ARTERY OCCLUSION W O CEREBRAL IN 11/12/2019 CATE HERRERA APRN Ot J44.9 CHRONIC OBSTRUCTIVE PULMONARY DISEASE, U 11/12/2019 JING HOLGUIN DO Ot M54.16 RADICULOPATHY, LUMBAR REGION 11/12/2019 YOUNG MCALLISTER Ot E78.2 MIXED HYPERLIPIDEMIA 11/12/2019 YOUNG MCALLISTER Ot I10 ESSENTIAL (PRIMARY) HYPERTENSION 11/12/2019 YOUNG MCALLISTER Ot I25.10 ATHSCL HEART DISEASE OF [place] CORONARY 11/12/2019 JOSHUA CASTILLO MD Ot E78. 2 MIXED HYPERLIPIDEMIA 11/12/2019 JOSHUA CASTILLO MD Ot F41. 9 ANXIETY DISORDER, UNSPECIFIED 11/12/2019 JOSHUA CASTILLO MD Ot I10 ESSENTIAL (PRIMARY) HYPERTENSION 11/12/2019 JOSHUA CASTILLO MD Ot I25. 10 ATHSCL HEART DISEASE OF [place] CORONARY 11/12/2019 JOSHUA CASTILLO MD Ot R07. 89 OTHER CHEST PAIN 11/12/2019 JOSHUA CASTILLO MD Ot Z72. 0 TOBACCO USE 11/12/2019 JOSHUA CASTILLO MD Ot E78. 5 HYPERLIPIDEMIA, UNSPECIFIED 11/12/2019 JOSHUA CASTILLO MD Ot F41. 9 ANXIETY DISORDER, UNSPECIFIED 11/12/2019 JOSHUA CASTILLO MD Ot I10 ESSENTIAL (PRIMARY) HYPERTENSION 11/12/2019 JOSHUA CASTILLO MD Ot I25. 10 ATHSCL HEART DISEASE OF [place] CORONARY 11/12/2019 JOSHUA CASTILLO MD Ot R07. 89 OTHER CHEST PAIN 11/12/2019 JOSHUA CASTILLO MD Ot Z72. 0 TOBACCO USE 11/12/2019 JAVIER, CATE E WATER TREATMENT SPECIALIST Ot J44.9 CHRONIC OBSTRUCTIVE PULMONARY DISEASE, U 11/12/2019 JAVIER, CATE E WATER TREATMENT SPECIALIST Ot R06.02 SHORTNESS OF BREATH 11/12/2019 JAVIER CATE E WATER TREATMENT SPECIALIST Ot R06.2 WHEEZING 11/12/2019 JAVIER, CATE E WATER TREATMENT SPECIALIST Ot R09.02 HYPOXEMIA 11/12/2019 JAVIER, CATE E WATER TREATMENT SPECIALIST Ot R91.1 SOLITARY PULMONARY NODULE 11/12/2019 JAVIER, CATE E WATER TREATMENT SPECIALIST Ot J44.0 CHRONIC OBSTRUCTIVE PULMON DISEASE W ACU 11/12/2019 JAVIER, CATE E WATER TREATMENT SPECIALIST Ot R06.02 SHORTNESS OF BREATH 11/12/2019 JAVIER, CATE E WATER TREATMENT SPECIALIST Ot R06.2 WHEEZING 11/12/2019 JAVIER, CATE E WATER TREATMENT SPECIALIST Ot R09.02 HYPOXEMIA 11/12/2019 JAVIER, CATE E WATER TREATMENT SPECIALIST Ot R91.1 SOLITARY PULMONARY NODULE 11/12/2019 JAVIER, CATE E WATER TREATMENT SPECIALIST Ot Z72.0 TOBACCO USE 11/12/2019 CELSO FORD COFFEE ROASTER-C Ot I70.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 2 MIXED HYPERLIPIDEMIA 11/12/2019 JOSHUA CASTILLO MD Ot I11. 0 HYPERTENSIVE HEART DISEASE WITH HEART FA 11/12/2019 JOSHUA CASTILLO MD Ot I25. 10 ATHSCL HEART DISEASE OF [place] CORONARY 11/12/2019 JOSHUA CASTILLO MD Ot I50. 9 HEART FAILURE, UNSPECIFIED 11/12/2019 JOSHUA CASTILLO MD, Ot E78. 2 MIXED HYPERLIPIDEMIA 11/12/2019 JOSHUA CASTILLO MD Ot I11. 0 HYPERTENSIVE HEART DISEASE WITH HEART FA 11/12/2019 JOSHUA CASTILLO MD Ot I25. 10 ATHSCL HEART DISEASE OF [place] CORONARY 11/12/2019 JOSHUA CASTILLO MD Ot I50. 9 HEART FAILURE, UNSPECIFIED 11/12/2019 SHABBIR HERRERAINE E WATER TREATMENT SPECIALIST Ot J18.9 PNEUMONIA, UNSPECIFIED ORGANISM 11/12/2019 SHABBIR HERRERAINE E WATER TREATMENT SPECIALIST Ot J44.9 CHRONIC OBSTRUCTIVE PULMONARY DISEASE, U 11/12/2019 JAVIER, CATE E WATER TREATMENT SPECIALIST Ot R91.8 OTHER NONSPECIFIC ABNORMAL FINDING OF MARLYS 11/12/2019 JAVIER CATE E WATER TREATMENT SPECIALIST Ot Z72.0 TOBACCO USE 11/12/2019 HORTENCIA LYNN MACHINE WHITENER Ot M19.011 PRIMARY OSTEOARTHRITIS, RIGHT SHOULDER 11/12/2019 HORTENCIA LYNN MACHINE WHITENER Ot M75. 81 OTHER SHOULDER LESIONS, RIGHT SHOULDER 11/12/2019 JOSHUA CASTILLO MD Ot I25. 10 ATHSCL HEART DISEASE OF [place] CORONARY 11/12/2019 JOSHUA CASTILLO MD Ot I50. 9 HEART FAILURE, UNSPECIFIED 11/12/2019 JOSHUA CASTILLO MD Ot J44. 9 CHRONIC OBSTRUCTIVE PULMONARY DISEASE, U 11/12/2019 JOSHUA CASTILLO MD Ot R06. 02 SHORTNESS OF BREATH 11/12/2019 SHABBIR HERRERAINE E WATER TREATMENT SPECIALIST Ot F10.20 ALCOHOL DEPENDENCE, UNCOMPLICATED 11/12/2019 SHABBIR HERRERAINE E WATER TREATMENT SPECIALIST Ot J44.9 CHRONIC OBSTRUCTIVE PULMONARY DISEASE, U 11/12/2019 SHABBIR HERRERAINE E WATER TREATMENT SPECIALIST Ot R06.02 SHORTNESS OF BREATH 11/12/2019 JAVIER, CATE E WATER TREATMENT SPECIALIST Ot R06.2 WHEEZING 11/12/2019 JAVIER CATE E WATER TREATMENT SPECIALIST Ot R09.02 HYPOXEMIA 11/12/2019 JAVIER CATE E WATER TREATMENT SPECIALIST Ot Z72.0 TOBACCO USE 11/12/2019 JAVIER CATE E WATER TREATMENT SPECIALIST Ot F10.20 ALCOHOL DEPENDENCE, UNCOMPLICATED 11/12/2019 JAVIER, CATE E WATER TREATMENT SPECIALIST Ot J44.9 CHRONIC OBSTRUCTIVE PULMONARY DISEASE, U 11/12/2019 JAVIER CATE E WATER TREATMENT SPECIALIST Ot R91.8 OTHER NONSPECIFIC ABNORMAL FINDING OF [place] 11/12/2019 JAVIER, CATE E WATER TREATMENT SPECIALIST Ot Z87.891 PERSONAL HISTORY OF NICOTINE DEPENDENCE 11/12/2019 CATE HERRERA WATER TREATMENT SPECIALIST Ot F10.20 ALCOHOL DEPENDENCE, UNCOMPLICATED 11/12/2019 CATE HERRERA WATER TREATMENT SPECIALIST Ot J44.9 CHRONIC OBSTRUCTIVE PULMONARY DISEASE, U 11/12/2019 CATE HERRERA WATER TREATMENT SPECIALIST Ot J98.4 OTHER DISORDERS OF LUNG 11/12/2019 CATE HERRERA WATER TREATMENT SPECIALIST Ot R91.8 OTHER NONSPECIFIC ABNORMAL FINDING OF [place] 11/12/2019 CATE HERRERA WATER TREATMENT SPECIALIST Ot Z72.0 TOBACCO USE 11/12/2019 JOSHUA CASTILLO MD Ot I20. 8 OTHER FORMS OF ANGINA PECTORIS 11/12/2019 HORTENCIA LYNN MACHINE WHITENER Ot M25. 78 OSTEOPHYTE, VERTEBRAE 11/12/2019 HORTENCIA LYNN MACHINE WHITENER Ot M47. 22 OTHER SPONDYLOSIS WITH RADICULOPATHY, CE 11/12/2019 HORTENCIA LYNN MACHINE WHITENER Ot M48. 02 SPINAL STENOSIS, CERVICAL REGION 11/12/2019 CATE HERRERA APRN Ot F17.201 NICOTINE DEPENDENCE, UNSPECIFIED, IN REM 11/12/2019 CATE HERRERA APRN Ot J18.9 PNEUMONIA, UNSPECIFIED ORGANISM 11/12/2019 CATE HERRERA WATER TREATMENT SPECIALIST Ot J44.9 CHRONIC OBSTRUCTIVE PULMONARY DISEASE, U 11/12/2019 CATE HERRERA WATER TREATMENT SPECIALIST Ot K76.9 LIVER DISEASE, UNSPECIFIED 11/12/2019 CATE HERRERA WATER TREATMENT SPECIALIST Ot R91.1 SOLITARY PULMONARY NODULE 11/12/2019 CATE HERRERA WATER TREATMENT SPECIALIST Ot R91.8 OTHER NONSPECIFIC ABNORMAL FINDING OF MAR[place] 11/12/2019 Ot 272.4 HYPE RLIPIDEMIA NEC/NOS 11/12/2019 Ot 401.9 HYPE RTENSION NOS 11/12/2019 Ot 414.00 COR ON ATHEROSCLER NOS TYPE VESSEL, NATIV 11/12/2019 Ot 428.0 VASHTI ESTIVE HEART FAILURE NOS 11/12/2019 Ot 433.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 4 HYPERLIPIDEMIA NEC/NOS 11/12/2019 JOSHUA CASTILLO MD Ot 401. 9 HYPERTENSION NOS 11/12/2019 JOSHUA CASTILLO MD Ot 414. 00 CORON ATHEROSCLER NOS TYPE VESSEL, NATIV 11/12/2019 JOSHUA CASTILLO MD Ot 428. 0 CONGESTIVE HEART FAILURE NOS 11/12/2019 JOSHUA CASTILLO MD Ot 433. 10 CAROTID ARTERY OCCLUSION W O CEREBRAL IN 11/12/2019 CATE HERRERA APRN Ot J44.9 CHRONIC OBSTRUCTIVE PULMONARY DISEASE, U 11/12/2019 JING HOLGUIN DO Ot M54.16 RADICULOPATHY, LUMBAR REGION 11/12/2019 YOUNG MCALLISTER Ot E78.2 MIXED HYPERLIPIDEMIA 11/12/2019 YOUNG MCALLISTER Ot I10 ESSENTIAL (PRIMARY) HYPERTENSION 11/12/2019 YOUNG MCALLISTER Ot I25.10 ATHSCL HEART DISEASE OF [place] CORONARY 11/12/2019 JOSHUA CASTILLO MD Ot E78. 2 MIXED HYPERLIPIDEMIA 11/12/2019 JOSHUA CASTILLO MD Ot F41. 9 ANXIETY DISORDER, UNSPECIFIED 11/12/2019 JOSHUA CASTILLO MD Ot I10 ESSENTIAL (PRIMARY) HYPERTENSION 11/12/2019 JOSHUA CASTILLO MD Ot I25. 10 ATHSCL HEART DISEASE OF [place] CORONARY 11/12/2019 JOSHUA CASTILLO MD Ot R07. 89 OTHER CHEST PAIN 11/12/2019 JOSHUA CASTILLO MD Ot Z72. 0 TOBACCO USE 11/12/2019 JOSHUA CASTILLO MD Ot E78. 5 HYPERLIPIDEMIA, UNSPECIFIED 11/12/2019 JOSHUA CASTILLO MD Ot F41. 9 ANXIETY DISORDER, UNSPECIFIED 11/12/2019 JOSHUA CASTILLO MD Ot I10 ESSENTIAL (PRIMARY) HYPERTENSION 11/12/2019 JOSHUA CASTILLO MD Ot I25. 10 ATHSCL HEART DISEASE OF [place] CORONARY 11/12/2019 JOSHUA CASTILLO MD Ot R07. 89 OTHER CHEST PAIN 11/12/2019 JOSHUA CASTILLO MD Ot Z72. 0 TOBACCO USE 11/12/2019 CATE HERRERA APRN Ot J44.9 CHRONIC OBSTRUCTIVE PULMONARY DISEASE, U 11/12/2019 CATE HERRERA APRN Ot R06.02 SHORTNESS OF BREATH 11/12/2019 CATE HERRERA APRN Ot R06.2 WHEEZING 11/12/2019 JAVIER, CATE E WATER TREATMENT SPECIALIST Ot R09.02 HYPOXEMIA 11/12/2019 CATE HERRERA E WATER TREATMENT SPECIALIST Ot R91.1 SOLITARY PULMONARY NODULE 11/12/2019 CATE HERRERA WATER TREATMENT SPECIALIST Ot J44.0 CHRONIC OBSTRUCTIVE PULMON DISEASE W ACU 11/12/2019 CATE HERRERA WATER TREATMENT SPECIALIST Ot R06.02 SHORTNESS OF BREATH 11/12/2019 CATE HERRERA WATER TREATMENT SPECIALIST Ot R06.2 WHEEZING 11/12/2019 CATE HERRERA E WATER TREATMENT SPECIALIST Ot R09.02 HYPOXEMIA 11/12/2019 CATE HERRERA WATER TREATMENT SPECIALIST Ot R91.1 SOLITARY PULMONARY NODULE 11/12/2019 CATE HERRERA WATER TREATMENT SPECIALIST Ot Z72.0 TOBACCO USE 11/12/2019 CELSO FORDP-C Ot I70.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 2 MIXED HYPERLIPIDEMIA 11/12/2019 JOSHUA CASTILLO MD Ot I11. 0 HYPERTENSIVE HEART DISEASE WITH HEART FA 11/12/2019 JOSHUA CASTILLO MD J Ot I25. 10 ATHSCL HEART DISEASE OF [place] CORONARY 11/12/2019 JOSHUA CASTILLO MD Ot I50. 9 HEART FAILURE, UNSPECIFIED 11/12/2019 JOSHUA CASTILLO MD Ot E78. 2 MIXED HYPERLIPIDEMIA 11/12/2019 JONATHAN CRANE, JOSHUA J Ot I11. 0 HYPERTENSIVE HEART DISEASE WITH HEART FA 11/12/2019 JOSHUA CASTILLO MD J Ot I25. 10 ATHSCL HEART DISEASE OF [place] CORONARY 11/12/2019 JOSHUA CASTILLO MD Ot I50. 9 HEART FAILURE, UNSPECIFIED 11/12/2019 CATE HERRERA WATER TREATMENT SPECIALIST Ot J18.9 PNEUMONIA, UNSPECIFIED ORGANISM 11/12/2019 CATE HERRERA WATER TREATMENT SPECIALIST Ot J44.9 CHRONIC OBSTRUCTIVE PULMONARY DISEASE, U 11/12/2019 CATE HERRERA WATER TREATMENT SPECIALIST Ot R91.8 OTHER NONSPECIFIC ABNORMAL FINDING OF MARL[place] 11/12/2019 CATE HERRERA WATER TREATMENT SPECIALIST Ot Z72.0 TOBACCO USE 11/12/2019 HORTENCIA LYNN MACHINE WHITENER Ot M19.011 PRIMARY OSTEOARTHRITIS, RIGHT SHOULDER 11/12/2019 HORTENCIA LYNN MACHINE WHITENER Ot M75. 81 OTHER SHOULDER LESIONS, RIGHT SHOULDER 11/12/2019 JONATHAN CRANE, JOSHUA Rausch Ot I25. 10 ATHSCL HEART DISEASE OF [place] CORONARY 11/12/2019 JONATHAN CRANE, JOSHUA Rausch Ot I50. 9 HEART FAILURE, UNSPECIFIED 11/12/2019 JOSHUA CASTILLO MD Ot J44. 9 CHRONIC OBSTRUCTIVE PULMONARY DISEASE, U 11/12/2019 JONATHAN CRANE, JOSHUA Rausch Ot R06. 02 SHORTNESS OF BREATH 11/12/2019 SHABBIR HERRERAINE Mitzi WATER TREATMENT SPECIALIST Ot F10.20 ALCOHOL DEPENDENCE, UNCOMPLICATED 11/12/2019 JAVIER, CATE E WATER TREATMENT SPECIALIST Ot J44.9 CHRONIC OBSTRUCTIVE PULMONARY DISEASE, U 11/12/2019 JAVIER, CATE E WATER TREATMENT SPECIALIST Ot R06.02 SHORTNESS OF BREATH 11/12/2019 SHABBIR HERRERAINE E WATER TREATMENT SPECIALIST Ot R06.2 WHEEZING 11/12/2019 JAVIER CATE E WATER TREATMENT SPECIALIST Ot R09.02 HYPOXEMIA 11/12/2019 JAVIER CATE E WATER TREATMENT SPECIALIST Ot Z72.0 TOBACCO USE 11/12/2019 JAVIER CATE E WATER TREATMENT SPECIALIST Ot F10.20 ALCOHOL DEPENDENCE, UNCOMPLICATED 11/12/2019 JAVIER, CATE E WATER TREATMENT SPECIALIST Ot J44.9 CHRONIC OBSTRUCTIVE PULMONARY DISEASE, U 11/12/2019 JAVIER, CATE E WATER TREATMENT SPECIALIST Ot R91.8 OTHER NONSPECIFIC ABNORMAL FINDING OF MARL[place] 11/12/2019 JAVIER CATE E WATER TREATMENT SPECIALIST Ot Z87.891 PERSONAL HISTORY OF NICOTINE DEPENDENCE 11/12/2019 SHABBIR HERRERAINE E WATER TREATMENT SPECIALIST Ot F10.20 ALCOHOL DEPENDENCE, UNCOMPLICATED 11/12/2019 JAVIER, CATE E WATER TREATMENT SPECIALIST Ot J44.9 CHRONIC OBSTRUCTIVE PULMONARY DISEASE, U 11/12/2019 JAVIER, CATE E WATER TREATMENT SPECIALIST Ot J98.4 OTHER DISORDERS OF LUNG 11/12/2019 JAVIER CATE E WATER TREATMENT SPECIALIST Ot R91.8 OTHER NONSPECIFIC ABNORMAL FINDING OF MARLYS 11/12/2019 JAVIER CATE E WATER TREATMENT SPECIALIST Ot Z72.0 TOBACCO USE 11/12/2019 JOSHUA CASTILLO MD Ot I20. 8 OTHER FORMS OF ANGINA PECTORIS 11/12/2019 HORTENCIA LYNN MACHINE WHITENER Ot M25. 78 OSTEOPHYTE, VERTEBRAE 11/12/2019 HORTENCIA LYNN MACHINE WHITENER Ot M47. 22 OTHER SPONDYLOSIS WITH RADICULOPATHY, CE 11/12/2019 LYNNHORTENCIA Bruner Dhruv MACHINE WHITENER Ot M48. 02 SPINAL STENOSIS, CERVICAL REGION 11/12/2019 CATE HERRERA APRN Ot F17.201 NICOTINE DEPENDENCE, UNSPECIFIED, IN REM 11/12/2019 CATE HERRERA WATER TREATMENT SPECIALIST Ot J18.9 PNEUMONIA, UNSPECIFIED ORGANISM 11/12/2019 CATE HERRERA WATER TREATMENT SPECIALIST Ot J44.9 CHRONIC OBSTRUCTIVE PULMONARY DISEASE, U 11/12/2019 CATE HERRERA APRN Ot K76.9 LIVER DISEASE, UNSPECIFIED 11/12/2019 CATE HERRERA WATER TREATMENT SPECIALIST Ot R91.1 SOLITARY PULMONARY NODULE 11/12/2019 CATE HERRERA APRN Ot R91.8 OTHER NONSPECIFIC ABNORMAL FINDING OF AMRLYS Procedures There is no data. Results Test [...] white blood cell (WBC) differential - 10/14/17 20:09 Blood leukocytes automated count (number/volume) 9.4 [...] GROWTH Scant Growth NRG Bacterial sputum culture [id number] NR Influenza virus A and B antigen detectio [...] - 07/25/17 11:57 QUANTITY OF GROWTH . NRG Bacterial blood culture SEE COMMEN NRG Blood lactic acid measurement (moles/vol ume) - 07/25/17 12:27 Blood lactic acid measurement (moles/volume) 0.68 mmol/L 0.50-2.00 Bacterial blood culture - 07/25/17 12:27 Bacterial blood culture NG NRG Methicillin resistant Staphylococcus aur eus (MRSA) screening culture - 07/25/17 14:35 Methicillin resistant Staphylococcus aureus (MRSA) scr eening culture NEG NRG Whole blood basic metabolic panel - 07/10 [...] 99 mmol/L 98-107 Carbon dioxide 34 mmol/L 21-32 [...] d white blood cell (WBC) differential - 09/08/18 22:20 Blood leukocytes automated count (number/volume) 4.8 [...] Complete urinalysis with reflex to culture NO [facility] [id number] - 05/31/19 06:40 Serum or plasma urea nitrogen measurement (mass/volume ) 10 mg/dL 7-18 Serum or plasma creatinine measurement (mass/volume) 1.03 mg/dL 0.60-1.30 Serum or plasma urea nitrogen/creatinine mass ratio 10 NRG Serum or plasma creatinine measurement w ith calculation of estimated glomerular filtration rate > NRG Comprehensive metabolic panel - 11/08/19 09:17 Serum or plasma sodium measurement (moles/volume) 145 mmol/L 135-145 Serum or plasma potassium measurement (moles/volume) 4.4 mmol/L 3.6-5.0 Serum or plasma chloride measurement (moles/volume) 92 mmol/L 98-107 Carbon dioxide 43 mmol/L 21-32 Serum or plasma anion gap determination (moles/volume) 10 mmol/L 5-14 Serum or plasma glucose measurement (mass/volume) 117 mg/dL 70-105 Serum or plasma calcium measurement (mass/volume) 9.5 mg/dL 8.5-10.1 Serum or plasma total bilirubin measurement (mass/volu me) 0.4 mg/dL 0.1-1.0 Serum or plasma protein measurement (mass/volume) 6.9 g/dL 6.4-8.2 Serum or plasma albumin measurement (mass/volume) 4.0 g/dL 3.2-4.5 CALCIUM CORRECTED 9.5 mg/dL 8.5-10.1 Complete blood count (CBC) with automate d white blood cell (WBC) differential - 11/08/19 09:17 Blood leukocytes automated count (number/volume) 13.1 10*3/uL 4.3-11.0 Blood erythrocytes automated count (number/volume) 3.78 10*6/uL 4.35-5.85 Venous blood hemoglobin measurement (mass/volume) 11.4 g/dL 13.3-17.7 Blood hematocrit (volume fraction) 39 % 40-54 Automated erythrocyte mean corpuscular volume 102 [foz_us] 80-99 Automated erythrocyte mean corpuscular h emoglobin (mass per erythrocyte) 30 pg 25-34 Automated erythrocyte mean corpuscular h emoglobin concentration measurement (mass/volume) 30 g/dL 32-36 Automated erythrocyte distribution width ratio 13. 0 % 10.0- 14.5 Automated blood platelet count (count/volume) 158 10*3/uL 130-400 Automated blood platelet mean volume measurement 10.4 [foz_us] 7.4-10.4 Automated blood neutrophils/100 leukocytes 73 % 42-75 Automated blood lymphocytes/100 leukocytes 19 % 12-44 Blood monocytes/100 leukocytes 7 % 0-12 Automated blood eosinophils/100 leukocytes 0 % 0-10 Automated blood basophils/100 leukocytes 0 % 0-10 Blood neutrophils automated count (number/volume) 9.6 10*3 1.8-7.8 Blood lymphocytes automated count (number/volume) 2.5 10*3 1.0-4.0 Blood monocytes automated count (number/volume) 0. 9 10*3 0.0-1.0 Automated eosinophil count 0.1 10*3/uL 0 .0-0.3 Automated blood basophil count (count/volume) 0.0 10*3/uL 0.0-0.1 Blood lactic acid measurement (moles/vol ume) - 11/08/19 09:21 Blood lactic acid measurement (moles/volume) 0.99 mmol/L 0.50-2.00 Bacterial blood culture - 11/08/19 09:21 Bacterial blood culture [facility] Arterial blood gas measurement - 0 09:46 Blood pCO2 75 mm[Hg] 35-45 Blood pO2 67 mm[Hg] 79-93 Arterial blood bicarbonate measurement (moles/volume) 48 mmol/L 23-27 Arterial blood base excess by calculation 22.0 mmo l/L -2.5-2.5 Arterial blood oxygen saturation measurement 90 % 94-100 * Inhaled oxygen flow rate 100% NRG Arterial blood pH measurement with patient temperature correction 7.42 7.37-7.43 Arterial blood carbon dioxide, total measurement (mole s/volume) 50.8 mmol/L 21.0-31.0 Body site L RAD NRG Assessment of wrist artery patency prior to arterial p uncture YES-POS NRG Setting of ventilation mode NO NR G Measurement of body temperature 36.1 NRG PT panel in platelet poor plasma by coag ulation assay - 11/08/19 10:04 Prothrombin time (PT) in platelet poor plasma by coagu lation assay 11.9 s 12.2-14.7 INR in platelet poor plasma or blood by coagulation as say 0.9 0.8-1.4 Activated partial thromboplastin time (a PTT) in platelet poor plasma bycoagulation assay - 11/08/19 10:04 Activated partial thromboplastin time (a PTT) in platelet poor plasma bycoagulation assay 30 s 24-35 Bacterial blood culture - 11/08/19 10:04 Bacterial blood culture NG NRG Serum or plasma troponin i.cardiac measu rement (mass/volume) - 11/08/19 10:09 Serum or plasma troponin i.cardiac measurement (mass/v olume) < ng/mL <0.028 Complete urinalysis with reflex to cultu re - 11/08/19 11:02 Urine color determination YELLOW NRG Urine clarity determination SL CLOUDY N RG Urine pH measurement by test strip 8.0 5-9 Specific gravity of urine by test strip 1.020 1.016-1.022 Urine protein assay by test strip, semi-quantitative 1+ NEGATIVE Urine glucose detection by automated test strip NE GATIVE NEGATIVE Erythrocytes detection in urine sediment by light micr oscopy NEGATIVE NEGATIVE Urine ketones detection by automated test strip TR [place] NEGATIVE Urine nitrite detection by test strip NEGATIVE NEGATIVE Urine total bilirubin detection by test strip 1+ NEGATIVE Urine urobilinogen measurement by automated test strip (mass/volume) 1.0 mg/dL < = 1.0 Urine leukocyte esterase detection by dipstick NEG ATIVE NEGATIVE Automated urine sediment erythrocyte cou nt by microscopy (number/high power field) NONE NRG Automated urine sediment leukocyte count by microscopy (number/high power field) [HPF] NRG Bacteria detection in urine sediment by light microsco py TRACE NRG Crystals detection in urine sediment by light microsco py NONE NRG Casts detection in urine sediment by light microscopy NONE NRG Mucus detection in urine sediment by light microscopy MODERATE NRG Complete urinalysis with reflex to culture CULTURE PENDING NRG Bacterial urine culture - 11/08/19 11:02 Bacterial urine culture 3 OR MORE NRG COLONY COUNT <10,000 NRG SUSCEPTIBILITY GRAM POSITIVES, SUGGESTING PROBABLE NRG MRSA SCREEN COLLECTION CONTAMINATION WITH SKIN BURKE RA NRG RAPID ID NO SUSCEPTIBILITY PERFORMED N RG Methicillin resistant Staphylococcus aur eus (MRSA) screening culture - 11/08/19 12:59 Methicillin resistant Staphylococcus aureus (MRSA) scr eening culture NEG NRG Serum or plasma troponin i.cardiac measu rement (mass/volume) - 11/08/19 15:00 Serum or plasma troponin i.cardiac measurement (mass/v olume) < ng/mL <0.028 Capillary blood glucose measurement by g lucometer (mass/volume) - 11/08/19 16:46 Capillary blood glucose measurement by glucometer (mas s/volume) 230 mg/dL 70-110 Capillary blood glucose measurement by g lucometer (mass/volume) - 11/08/19 20:32 Capillary blood glucose measurement by glucometer (mas s/volume) 298 mg/dL 70-110 Complete blood count (CBC) with automate d white blood cell (WBC) differential - 11/09/19 03:04 Blood leukocytes automated count (number/volume) 15.5 10*3/uL 4.3-11.0 Blood erythrocytes automated count (number/volume) 3.50 10*6/uL 4.35-5.85 Venous blood hemoglobin measurement (mass/volume) 10.4 g/dL 13.3-17.7 Blood hematocrit (volume fraction) 35 % 40-54 Automated erythrocyte mean corpuscular volume 100 [foz_us] 80-99 Automated erythrocyte mean corpuscular h emoglobin (mass per erythrocyte) 30 pg 25-34 Automated erythrocyte mean corpuscular h emoglobin concentration measurement (mass/volume) 30 g/dL 32-36 Automated erythrocyte distribution width ratio 12. 8 % 10.0- 14.5 Automated blood platelet count (count/volume) 135 10*3/uL 130-400 Automated blood platelet mean volume measurement 10.2 [foz_us] 7.4-10.4 Automated blood neutrophils/100 leukocytes 94 % 42-75 Automated blood lymphocytes/100 leukocytes 4 % 12-44 Blood monocytes/100 leukocytes 3 % 0-12 Automated blood eosinophils/100 leukocytes 0 % 0-10 Automated blood basophils/100 leukocytes 0 % 0-10 Blood neutrophils automated count (number/volume) 14.5 10*3 1.8-7.8 Blood lymphocytes automated count (number/volume) 0.6 10*3 1.0-4.0 Blood monocytes automated count (number/volume) 0. 4 10*3 0.0-1.0 Automated eosinophil count 0.0 10*3/uL 0 .0-0.3 Automated blood basophil count (count/volume) 0.0 10*3/uL 0.0-0.1 Manual absolute plasma cell count - 07/29 03:04 Blood monocytes/100 leukocytes 3 % NRG Manual blood segmented neutrophils/100 leukocytes 88 % NRG Blood band neutrophils/100 leukocytes 8 % NRG Manual blood lymphocytes/100 leukocytes 1 % NRG Blood macrocytes detection by light microscopy MOD ERATE NRG Whole blood basic metabolic panel - 07/29 03:04 Serum or plasma sodium measurement (moles/volume) 142 mmol/L 135-145 Serum or plasma potassium measurement (moles/volume) 3.9 mmol/L 3.6-5.0 Serum or plasma chloride measurement (moles/volume) 92 mmol/L 98-107 Carbon dioxide 42 mmol/L 21-32 Serum or plasma anion gap determination (moles/volume) 8 mmol/L 5-14 Serum or plasma urea nitrogen measurement (mass/volume ) 18 mg/dL 7-18 Serum or plasma creatinine measurement (mass/volume) 0.96 mg/dL 0.60-1.30 Serum or plasma urea nitrogen/creatinine mass ratio 19 NRG Serum or plasma creatinine measurement w ith calculation of estimated glomerular filtration rate > NRG Serum or plasma glucose measurement (mass/volume) 147 mg/dL 70-105 Serum or plasma calcium measurement (mass/volume) 9.2 mg/dL 8.5-10.1 Serum or plasma phosphate measurement (m ass/volume) - 11/09/19 03:04 Serum or plasma phosphate measurement (mass/volume) 2.0 mg/dL 2.3-4.7 Magnesium - 11/09/19 03:04 Magnesium 1.9 mg/dL 1.6-2.4 Fibrin D-dimer FEU measurement in platel et poor plasma (mass/volume) - 11/09/19 03:04 Fibrin D-dimer FEU measurement in platelet poor plasma (mass/volume) 0.69 ug/mL 0.00-0.49 Arterial blood gas measurement - 0 03:45 Blood pCO2 71 mm[Hg] 35-45 Blood pO2 78 mm[Hg] 79-93 Arterial blood bicarbonate measurement (moles/volume) 46 mmol/L 23-27 Arterial blood base excess by calculation 20.3 mmo l/L -2.5-2.5 Arterial blood oxygen saturation measurement 95 % 94-100 * Inhaled oxygen flow rate 55% NRG Arterial blood pH measurement with patient temperature correction 7.43 7.37-7.43 Arterial blood carbon dioxide, total measurement (mole s/volume) 48.5 mmol/L 21.0-31.0 Body site LEFT RADIAL NRG Assessment of wrist artery patency prior to arterial p uncture YES-POS NRG Setting of ventilation mode NO NR G Measurement of body temperature 36.4 NRG Influenza virus A and B antigen detectio n - 11/09/19 06:30 FLU RESULT NEGATIVE FOR INFLUENZA A AND B ANTIGENS BY IA NRG Urine Legionella pneumophila antigen ass ay - 11/09/19 06:30 Urine Legionella pneumophila antigen assay Negativ e NRG Streptococcus pneumoniae antigen detecti on - 11/09/19 06:30 Streptococcus pneumoniae antigen detection Negativ e NRG RESPIRATORY VIRUS PANEL - 11/09/19 06:30 Serum ragweed IgE antibody assay Not Detected Not Detected Serum or plasma aripiprazole measurement (mass/volume) Footnote Not Detected PARAINFLU 3 PCR Footnote Not Detected METAPNEUMO PCR Not Detected Not Detecte d Adenovirus detection, CSF, PCR Footnote Not Detected INFLUENZA A PCR Not Detected Not Detect ed INFLUENZA B PCR Not Detected Not Detect ed Capillary blood glucose measurement by g lucometer (mass/volume) - 11/09/19 11:36 Capillary blood glucose measurement by glucometer (mas s/volume) 130 mg/dL 70-110 Capillary blood glucose measurement by g lucometer (mass/volume) - 11/09/19 15:23 Capillary blood glucose measurement by glucometer (mas s/volume) 127 mg/dL 70-110 Capillary blood glucose measurement by g lucometer (mass/volume) - 11/09/19 20:38 Capillary blood glucose measurement by glucometer (mas s/volume) 137 mg/dL 70-110 Complete blood count (CBC) with automate d white blood cell (WBC) differential - 11/10/19 02:53 Blood leukocytes automated count (number/volume) 14.4 10*3/uL 4.3-11.0 Blood erythrocytes automated count (number/volume) 3.34 10*6/uL 4.35-5.85 Venous blood hemoglobin measurement (mass/volume) 10.0 g/dL 13.3-17.7 Blood hematocrit (volume fraction) 33 % 40-54 Automated erythrocyte mean corpuscular volume [...] 10.5 [foz_us] 7.4-10.4 Automated blood neutrophils/100 leukocytes 94 % 42-75 Automated blood lymphocytes/100 leukocytes 3 % 12-44 Blood monocytes/100 leukocytes 3 % 0-12 Automated blood eosinophils/100 leukocytes 0 % 0-10 Automated blood basophils/100 leukocytes 0 % 0-10 Blood neutrophils automated count (number/volume) 13.5 10*3 1.8-7.8 Blood lymphocytes automated count (number/volume) 0.5 10*3 1.0-4.0 Blood monocytes automated count (number/volume) 0. 4 10*3 0.0-1.0 Automated eosinophil count 0.0 10*3/uL 0 .0-0.3 Automated blood basophil count (count/volume) 0.0 10*3/uL 0.0-0.1 Whole blood basic metabolic panel - 08/26 02:53 Serum or plasma sodium measurement (moles/volume) 142 mmol/L 135-145 Serum or plasma potassium measurement (moles/volume) 3.8 mmol/L 3.6-5.0 Serum or plasma chloride measurement (moles/volume) 96 mmol/L 98-107 Carbon dioxide 35 mmol/L 21-32 Serum or plasma anion gap determination (moles/volume) 11 mmol/L 5-14 Serum or plasma urea nitrogen measurement (mass/volume ) 21 mg/dL 7-18 Serum or plasma creatinine measurement (mass/volume) 1.03 mg/dL 0.60-1.30 Serum or plasma urea nitrogen/creatinine mass ratio 20 NRG Serum or plasma creatinine measurement w ith calculation of estimated glomerular filtration rate > NRG Serum or plasma glucose measurement (mass/volume) 226 mg/dL 70-105 Serum or plasma calcium measurement (mass/volume) 8.8 mg/dL 8.5-10.1 Serum or plasma phosphate measurement (m ass/volume) - 11/10/19 02:53 Serum or plasma phosphate measurement (mass/volume) 2.9 mg/dL 2.3-4.7 Magnesium - 11/10/19 02:53 Magnesium 1.9 mg/dL 1.6-2.4 Serum or plasma lithium measurement (mol es/volume) - 11/10/19 02:53 BNP PT 54.7 pg/mL <100.0 Capillary blood glucose measurement by g lucometer (mass/volume) - 11/10/19 10:58 Capillary blood glucose measurement by glucometer (mas s/volume) 118 mg/dL 70-110 Capillary blood glucose measurement by g lucometer (mass/volume) - 11/10/19 15:21 Capillary blood glucose measurement by glucometer (mas s/volume) 151 mg/dL 70-110 Capillary blood glucose measurement by g lucometer (mass/volume) - 11/10/19 20:30 Capillary blood glucose measurement by glucometer (mas s/volume) 112 mg/dL 70-110 Complete blood count (CBC) with automate d white blood cell (WBC) differential - 11/11/19 05:30 Blood leukocytes automated count (number/volume) 10.3 10*3/uL 4.3-11.0 Blood erythrocytes automated count (number/volume) 3.35 10*6/uL 4.35-5.85 Venous blood hemoglobin measurement (mass/volume) 9.7 g/dL 13.3-17.7 Blood hematocrit (volume fraction) 33 % 40-54 Automated erythrocyte mean corpuscular volume 98 [ foz_us] 80-99 Automated erythrocyte mean corpuscular h emoglobin (mass per erythrocyte) 29 pg 25-34 Automated erythrocyte mean corpuscular h emoglobin concentration measurement (mass/volume) 30 g/dL 32-36 Automated erythrocyte distribution width ratio 14. 0 % 10.0- 14.5 Automated blood platelet count (count/volume) 130 10*3/uL 130-400 Automated blood platelet mean volume measurement 10.5 [foz_us] 7.4-10.4 Automated blood neutrophils/100 leukocytes 82 % 42-75 Automated blood lymphocytes/100 leukocytes 11 % 12-44 Blood monocytes/100 leukocytes 7 % 0-12 Automated blood eosinophils/100 leukocytes 0 % 0-10 Automated blood basophils/100 leukocytes 0 % 0-10 Blood neutrophils automated count (number/volume) 8.4 10*3 1.8-7.8 Blood lymphocytes automated count (number/volume) 1.1 10*3 1.0-4.0 Blood monocytes automated count (number/volume) 0. 7 10*3 0.0-1.0 Automated eosinophil count 0.0 10*3/uL 0 .0-0.3 Automated blood basophil count (count/volume) 0.0 10*3/uL 0.0-0.1 Whole blood basic metabolic panel - 09/26 05:30 Serum or plasma sodium measurement (moles/volume) 142 mmol/L 135-145 Serum or plasma potassium measurement (moles/volume) 4.0 mmol/L 3.6-5.0 Serum or plasma chloride measurement (moles/volume) 100 mmol/L 98-107 Carbon dioxide 37 mmol/L 21-32 Serum or plasma anion gap determination (moles/volume) 5 mmol/L 5-14 Serum or plasma urea nitrogen measurement (mass/volume ) 23 mg/dL 7-18 Serum or plasma creatinine measurement (mass/volume) 0.93 mg/dL 0.60-1.30 Serum or plasma urea nitrogen/creatinine mass ratio 25 NRG Serum or plasma creatinine measurement w ith calculation of estimated glomerular filtration rate > NRG Serum or plasma glucose measurement (mass/volume) 90 mg/dL 70-105 Serum or plasma calcium measurement (mass/volume) 8.5 mg/dL 8.5-10.1 Serum or plasma phosphate measurement (m ass/volume) - 11/11/19 05:30 Serum or plasma phosphate measurement (mass/volume) 3.5 mg/dL 2.3-4.7 Magnesium - 11/11/19 05:30 Magnesium 2.1 mg/dL 1.6-2.4 PROCALCITONIN (PCT) - 11/11/19 05:30 PROCALCITONIN (PCT) 0.26 ng/mL <0.10 Capillary blood glucose measurement by g lucometer (mass/volume) - 11/11/19 05:32 Capillary blood glucose measurement by glucometer (mas s/volume) 94 mg/dL 70-110 Capillary blood glucose measurement by g lucometer (mass/volume) - 11/11/19 10:51 Capillary blood glucose measurement by glucometer (mas s/volume) 124 mg/dL 70-110 TIBC - 12/22/19 08:25 Iron 72 ug/dL 70-200 Iron Saturation 23.32 % 15.00-55.00 TIBC 309 ug/dL 273-456 UIBC 247 ug/dL 200-370 Encounters ACCT No. Visit Date/Time Discharge Status Pt. Type Provider Facility Loc./Unit Complaint [id number] 03/29/2019 16:49:00 03/29/2019 23:59: 00 DIS Outpatient SONYA FERNANDEZ [id number] 12/27/2019 08:23:00 12/27/2019 23:59 :00 DIS SONYA Schmidt [id number] 12/22/2019 16:11:00 12/22/2019 23:59 :00 DIS SONYA Schmidt [id number] 12/22/2019 10:38:00 12/22/2019 23:59 :00 DIS SONYA Schmidt [id number] 12/21/2019 16:16:00 12/21/2019 23:59 :00 DIS Outpatient SONYA FERNANDEZ [id number] 11/16/2019 16:17:00 11/16/2019 23:59 :00 DIS Outpatient SONYA FERNANDEZ [id number] 06/29/2019 14:56:00 06/29/2019 23:59 :00 DIS Outpatient SONYA FERNANDEZ [id number] 06/07/2019 10:39:00 06/07/2019 23:59 :00 DIS Outpatient SONYA FERNANDEZ [id number] 04/27/2019 11:35:00 04/27/2019 23:59: 00 DIS Outpatient SONYA FERNANDEZ [id number] 01/13/2019 08:45:00 01/13/2019 23:59: 00 DIS Outpatient Zepeda, Mikeu [id number] 12/25/2018 09:38:00 12/25/2018 23:59: 00 DIS Outpatient Zepeda, Mikeu [id number] 12/16/2018 17:29:00 12/16/2018 23:59: 00 DIS Outpatient Zepeda, Mikeu [id number] 12/05/2017 13:24:00 12/05/2017 23:59: 00 DIS Outpatient Zepeda, Mikeu [id number] 10/08/2017 08:36:00 10/08/2017 23:59: 00 DIS Outpatient Zepeda, TreKrista [id number] 07/20/2017 11:08:00 07/20/2017 14:23: 00 [id number] 00:00:00 07/02/2017 23:59: 00 DIS Outpatient Zepeda, Mikeu [id number] 06/25/2017 17:22:00 06/25/2017 23:59: 00 DIS Outpatient Zepeda, Mikeu [id number] 06/13/2017 10:57:00 06/13/2017 13:08: 00 DIS Outpatient Anaek [place] [id number] 01/10/2017 20:57:00 01/10/2017 21:49: 00 DIS Outpatient Oscar [facility] ER [id number] 09/27/2016 16:25:00 09/27/2016 23:59: 00 DIS Outpatient Zepeda, Mikeu [id number] 03/16/2019 09:42:08 Document Registration [id number] 01/13/2019 08:05:00 Document Registration [id number] 12/25/2018 08:11:00 Document Registration [id number] 12/22/2018 10:13:00 Document Registration [id number] 12/16/2018 13:54:00 Document Registration [id number] 09/08/2018 09:31:00 Document Registration [id number] 08/21/2018 13:39:00 Document Registration [id number] 07/09/2018 14:28:00 Document Registration [id number] 07/03/2018 09:12:00 Document Registration [id number] 06/30/2018 14:44:00 Document Registration [id number] 04/22/2018 10:09:00 Document Registration [id number] 03/10/2018 10:45:00 Document Registration [id number] 03/05/2018 08:39:00 Document Registration [id number] 02/25/2018 10:54:00 Document Registration [id number] 01/16/2018 13:28:00 Document Registration [id number] 12/02/2017 10:10:00 Document Registration [id number] 10/28/2017 09:06:00 Document Registration [id number] 10/22/2017 08:53:00 Document Registration [id number] 10/07/2017 15:40:00 Document Registration [id number] 09/23/2017 09:37:00 Document Registration [id number] 07/20/2017 11:49:36 Document Registration [id number] 07/16/2017 14:29:00 Document Registration [id number] 06/25/2017 14:25:00 Document Registration [id number] 05/20/2017 09:21:00 Document Registration [id number] 07/03/2016 15:16:21 Document Registration [id number] 11/08/2019 12:05:00 12:10:00 DIS Inpatient JUAREZ TOLENTINO MD [facility] 4TH RIGHT LUNG PNA, RESP DISTRESS,HYPOXIA [id number] 07/09/2019 09:45:00 23:59:59 CLS Preadmit RASHEED CRANE, TAMIKO [facility] RAD LIVER MASS [id number] 05/31/2019 06:35:00 23:59:59 CLS Outpatient CATE HERRERA APRN [facility] RAD PNEUMONIA,LUNG NODULE,HYPOXEMIA [id number] 04/16/2019 21:11:00 11:15:00 DIS Inpatient JUAREZ TOLENTINO MD [facility] ICU CHEST PAIN, COPD EXACER BATION [id number] 02/11/2019 11:47:00 23:59:59 CLS Outpatient HORTENCIA LYNN [facility] RAD CERVICAL RADICULLOPATHY [id number] 12/12/2018 11:00:00 23:59:59 CLS Preadmit JOSHUA CASTILLO MD [facility] CR3 STABLE ANGINA [id number] 11/20/2018 11:23:00 00:01:00 DIS Outpatient JOSHUA CASTILLO MD [facility] CR3 STABLE ANGINA [id number] 12/06/2018 20:36:00 00:35:00 DIS Emergency FRANCISCA DO, DEBBIE K [facility] ER CHEST PAIN [id number] 11/24/2018 09:22:00 23:59:59 CLS Preadmit CATE HERRERA WATER TREATMENT SPECIALIST [facility] RAD COPD [id number] 11/17/2018 08:21:00 23:59:59 CLS Outpatient CATE HERRERA WATER TREATMENT SPECIALIST [facility] RAD WHEEZING,SOB,AL COHOLISM [id number] 11/06/2018 10:53:00 00:01:00 DIS Outpatient JOSHUA CASTILLO MD [facility] CR STABLE ANGINA [id number] 11/09/2018 15:18:00 23:59:59 CLS Outpatient CATE HERRERA APRN [facility] RT TOBACCO USE, SO B, COPD [id number] 10/30/2018 10:37:00 14:26:00 DIS Emergency OMAR CRANE, IRIS Hudson [facility] ER CHEST PAIN [id number] 10/23/2018 13:35:00 23:59:59 CLS Outpatient CATE HERRERA WATER TREATMENT SPECIALIST [facility] RAD TOBACCO USE [id number] 08/20/2018 17:10:00 19:00:00 DIS Emergency KAYCEE BAHENA WATER TREATMENT SPECIALIST [facility] ER FALL [id number] 08/14/2018 11:25:00 23:59:59 CLS Outpatient JOSHUA CASTILLO MD [facility] CARD CAD [id number] 06/24/2018 10:27:00 02/28/2 019 00:01:00 DIS Outpatient JOSHUA CASTILLO MD [facility] CR STABLE ANGINA [id number] 06/30/2018 15:53:00 019 19:33:00 DIS Emergency MARGARITA ROBERTSON [facility] ER HYPOXIA [id number] 04/25/2018 13:45:00 018 15:13:00 DIS Emergency ANTOINETTE SANDHU MD [facility] ER RIGHT FOOT PAIN /SWELLING [id number] 03/18/2018 06:52:00 13:27:00 DIS Outpatient JOSHUA CASTILLO MD [facility] CATH CAD [id number] 03/11/2018 08:00:00 23:59:59 CLS Preadmit JOSHUA CASTILLO MD [facility] CATH CAD [id number] 02/15/2018 00:50:00 018 10:55:00 DIS Inpatient JUAREZ TOLENTINO MD [facility] 4TH CHEST PAIN [id number] 02/10/2018 11:03:00 23:59:59 CLS Outpatient HORTENCIA LYNN [facility] RAD COMPLETE ROTATOR CUFF T EAR OR RUPTURE OF RT [id number] 11/15/2017 13:15:00 018 16:16:00 DIS Emergency ANTOINETTE SANDHU MD [facility] ER SOB,CP [id number] 10/13/2017 19:55:00 018 12:43:00 DIS Inpatient MARTIN GRULLON MD [facility] 4TH COPD 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,CP W/ CAD, HYPOXIA [id number] 09/16/2017 08:31:00 018 23:59:59 CLS Outpatient CATE HERRERA APRN [facility] RAD PNEUMONIA [id number] 09/14/2017 21:59:00 018 09:43:00 DIS Inpatient JUAREZ TOLENTINO MD [facility] ICU CHEST PAIN; COPD EXACER BATION [id number] 07/25/2017 13:00:00 018 23:59:59 CLS Inpatient POWERS DO OUMAR [facility] 4TH COPD 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 HYPER CAPNIA RLL PNEUMONIA [id number] 06/16/2017 13:04:00 018 23:59:59 CLS Outpatient JOSHUA CASTILLO MD [facility] LAB I25.10, I50.9, I65.29, I10, E78.2 [id number] 06/04/2017 08:56:00 017 23:59:59 CLS Outpatient JOSHUA CASTILLO MD [facility] CARD I25.10 CAD [id number] 05/08/2017 13:50:00 017 11:52:00 DIS Inpatient OUMAR POWERS DO, V [facility] 4TH DIPTHERIA,MENINGITIS [id number] 05/05/2017 19:17:00 017 17:20:00 DIS Inpatient MARTIN GRULLON MD [facility] ICU AIRWAY EDEMA,COPD EXACE RBATION,RT ARM WEAKNESS [id number] 03/22/2017 21:35:00 017 13:15:00 DIS Inpatient POWERSVIKAS BURDICK OUMAR [facility] ICU CHEST PAIN; COPD; HX OF CAD [id number] 01/22/2017 13:01:00 017 23:59:59 CLS Outpatient CELSO FORDP-C [facility] LAB I70.212 [id number] 10/12/2016 21:43:00 017 11:49:00 DIS Inpatient ZEKE CRANE, HERBERT Chapin [facility] 4TH COPD EXACERBATI ON, CHEST PAIN [id number] 08/27/2016 12:30:00 017 23:59:59 CLS Outpatient CATE HERRERA APRN [facility] RAD LUNG NODULE,SOB ON EXERTION [id number] 07/24/2016 16:06:00 017 14:00:00 DIS Inpatient OUMAR POWERS DO, V [facility] ICU CHEST PAIN,COPD IN EXAC ERBATION [id number] 04/16/2016 11:40:00 016 23:59:59 CLS Outpatient JOSHUA CASTILLO MD [facility] CARD CAD,CHEST PAIN,HTN [id number] 04/04/2016 12:40:00 23:59:59 CLS Outpatient CATE HERRERA APRN [facility] RAD SOB,WHEEZING,DY SPNEA [id number] 03/29/2016 12:58:00 23:59:59 CLS Outpatient JOSHUA CASTILLO MD [facility] LAB CAD,CAROTID ARTERY STENOSIS,HTN,HLP,CHEST PAIN [id number] 02/15/2016 08:21:00 016 11:05:00 DIS Outpatient MITCHELL JOHNSON MD [facility] SDC ULCERS; HISTORY POLYPS [id number] 02/13/2016 05:48:00 12:24:00 DIS Outpatient MITCHELL JOHNSON MD [facility] PREOP ULCERS; HISTORY POLYPS [id number] 10/25/2015 23:59:00 016 01:56:00 DIS Emergency IRIS NELSON MD [facility] ER CP [id number] 09/11/2015 14:00:00 23:59:59 CLS Outpatient DIONICIO MCALLISTER [facility] LAB HTN, HYPERL IPIDEMIA, CAD [id number] 07/03/2015 12:15:00 11:28:00 DIS Outpatient IRIS AMAYA [facility] REHAB LUMBAR RADICULOPATHY [id number] 05/02/2015 13:50:00 23:59:59 CLS Outpatient JING HOLGUIN DO [facility] RAD LUMBAR RADICULOPATHY [id number] 04/08/2015 17:27:00 015 21:05:00 DIS Emergency FRANCISCA BURDICK, DEBBIE [facility] ER L LEG PAIN/BLOOD CLOT [id number] 03/30/2015 09:32:00 23:59:59 CLS Outpatient CATE HERRERA APRN [facility] RAD COPD DYSPENA [id number] 01/16/2015 13:33:00 015 15:43:00 DIS Emergency OMAR CRANE, IRIS Hudson [facility] ER CHEST PAIN/NAUS EA [id number] 09/21/2014 07:30:00 13:45:00 DIS Outpatient JOSHUA CASTILLO MD [facility] CATH HTN,HLP,COPD, ABNORMAL STRESS, [id number] 08/31/2014 12:10:00 015 23:59:59 CLS Outpatient JOSHUA CASTILLO MD [facility] CARD CAD,CHF,HTN [id number] 02/10/2014 12:34:00 014 23:59:59 CLS Outpatient JOSHUA CASTILLO MD [facility] LAB CAD,CP,HTN,HYPERLIDEMIA [id number] 08/31/2013 13:00:00 014 00:01:00 DIS Outpatient XIMENA QUINONES DO [facility] PULM COPD,DYSPNEA [id number] 09/06/2013 12:48:00 014 23:59:59 CLS Outpatient JOSHUA CASTILLO MD [facility] LAB CAD,CHF,COPD,CAROTID AR BANDAR STENOSIS,DEPRESSION,DY [id number] 07/20/2013 13:00:00 014 00:01:00 DIS Outpatient XIMENA QUINONES DO [facility] PULM COPD,DYSPNEA [id number] 06/07/2013 14:50:00 013 13:20:00 DIS Inpatient DALLIN LUCAS MD [facility] ICU CHEST PAIN [id number] 04/29/2013 15:24:00 23:59:59 CLS Outpatient XIMENA QUINONES DO [facility] RT COPD,DYSPNEA [id number] 03/22/2013 10:59:00 23:59:59 CLS Outpatient JOSHUA CASTILLO MD [facility] RAD CAD,CP [id number] 03/03/2013 20:47:00 17:30:00 DIS Inpatient JOSHUA CASTILLO MD [facility] ICU CP,CAD,COPD EXACERBATIO N [id number] 01/26/2013 04:25:00 14:50:00 DIS Outpatient JOSHUA CASTILLO MD [facility] CATH CHEST PAIN [id number] 11/06/2012 21:15:00 15:00:00 DIS Inpatient CHRISTOPHER HULL MD [facility] CSD 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 PAIN, 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 D 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 [id number] 04/16/2019 13:28:00 Document Registration [id number] 08/31/2014 12:10:00 Document Registration [id number] 08/31/2014 12:10:00 Document Registration [id number] 08/31/2014 12:09:00 Document Registration [id number] 08/18/2014 10:56:00 Document Registration [id number] 11/18/2013 15:00:00 Document Registration [id number] 09/02/2012 10:34:00 Document Registration [id number] 07/01/2012 19:50:00 Document Registration [id number] 05/17/2012 21:18:00 Document Registration [id number] 03/31/2012 09:56:00 Document Registration [id number] 12/19/2011 10:33:00 Document Registration [id number] 12/06/2011 22:45:00 Document Registration [id number] 11/27/2011 12:54:00 Document Registration [id number] 10/23/2011 00:30:00 Document Registration [id number] 10/02/2011 11:39:00 Document Registration [id number] 09/30/2011 07:42:00 Document Registration [id number] 09/20/2011 11:58:00 Document Registration [id number] 09/12/2011 15:26:00 Document Registration [id number] 09/04/2011 15:30:00 Document Registration [id number] 06/27/2011 01:28:00 Document Registration [id number] 06/05/2011 13:00:00 Document Registration [id number] 03/06/2011 12:54:00 Document Registration [id number] 12/07/2010 15:30:00 Document Registration [id number] 07/02/2010 15:45:00 Document Registration [id number] 05/21/2010 10:14:00 Document Registration [id number] 04/25/2010 12:53:00 Document Registration [id number] 12/01/2009 12:58:00 Document Registration [id number] 10/19/2009 03:30:00 Document Registration [id number] 08/23/2009 13:16:00 Document Registration [id number] 05/22/2009 12:57:00 Document Registration [id number] 05/03/2009 12:57:00 Document Registration [id number] 01/16/2015 13:33:58 ACT Document Registration
[2020-01-23 19:56] LABS: BASOPHILS % (AUTO) 0 % (0-10); EOSINOPHILS % (AUTO) 0 % (0-10); HEMATOCRIT 36 % (40-54); HEMOGLOBIN 10.6 G/DL (13.3-17.7); LYMPHOCYTES % (AUTO) 19 % (12-44); MEAN CORPUSCULAR HEMOGLOBIN 29 PG (25-34); MEAN CORPUSCULAR HGB CONC 30 G/DL (32-36); MEAN CORPUSCULAR VOLUME 99 FL (80-99); MEAN PLATELET VOLUME 10.2 FL (7.4-10.4); MONOCYTES # (AUTO) 0.2 X 10^3 (0.0-1.0); MONOCYTES % (AUTO) 4 % (0-12); NEUTROPHILS # (AUTO) 4.1 X 10^3 (1.8-7.8); NEUTROPHILS % (AUTO) 76 % (42-75); PLATELET COUNT 151 10^3/uL (130-400); RED CELL DISTRIBUTION WIDTH 12.9 % (10.0-14.5); WHITE BLOOD COUNT 5.4 10^3/uL (4.3-11.0)
[2020-01-23 20:06] LABS: INR 0.9 (0.8-1.4); PROTHROMBIN TIME PATIENT 12.6 SEC (12.2-14.7)
[2020-01-23 20:11] LABS: CHLORIDE 95 MMOL/L (98-107); POTASSIUM 4.5 MMOL/L (3.6-5.0); SODIUM 144 MMOL/L (135-145)
[2020-01-23 20:12] LABS: AMYLASE 48 U/L (25-125); CALCIUM 9.1 MG/DL (8.5-10.1)
[2020-01-23 20:13] LABS: GLUCOSE 117 MG/DL (70-105); TOTAL PROTEIN 6.9 GM/DL (6.4-8.2)
[2020-01-23 20:14] LABS: CARBON DIOXIDE 41 MMOL/L (21-32)
[2020-01-23 20:15] LABS: BILIRUBIN,TOTAL 0.4 MG/DL (0.1-1.0)
[2020-01-23 20:16] LABS: ALKALINE PHOSPHATASE 92 U/L (40-136)
[2020-01-23 20:17] LABS: CREATININE SERUM 0.89 MG/DL (0.60-1.30); GFR ESTIMATED > 60
[2020-01-23 20:18] LABS: BUN/CREATININE RATIO 10
[2020-01-23 20:19] LABS: ALANINE AMINOTRANSFERASE 17 U/L (0-55); MAGNESIUM 1.8 MG/DL (1.6-2.4)
[2020-01-23 20:20] LABS: LIPASE 21 U/L (8-78)
[2020-01-23 20:21] LABS: CREATINE KINASE 68 U/L (30-200)
[2020-01-23 20:29] LABS: CREATINE KINASE MB 1.6 NG/ML (<6.6)
--- NOTE | 2020-01-23 20:34 | ED Chest Pain ---
General Chief Complaint: Cardiac/General Problems Stated Complaint: CP Nursing Triage Note: THE PT ARRIVAL BY EMS. NO DISTRESS IS SEEN ON ARRIVAL. LOC IS NORMAL FOR THE PT. THE PT C/O CP THAT STARTED THIS PM. Nursing Sepsis Screen: No Definite Risk Source: patient, EMS, old records History of Present Illness Date Seen by Provider: Jan 23, 2020 Time Seen by Provider: 19:49 Initial Comments PT ARRIVES VIA EMS FROM HOME C/O CHEST PAIN IN CENTER OF CHEST NO RADIATION OF PAIN STATES THAT PAIN BEGAN AT 1800, WHILE HE WAS WALKING AROUND THE CEMETERY LOOKING AT GRAVES, WITH AND FAMILY STATES HE GOT HOME AT 1830 AND TOOK NTG X 2 WITHOUT RELIEF, SO CALLED EMS EMS GAVE PT 4 BABY ASPIRIN AND MORPHINE 4 MG AND APPLIED NITROPASTE PT IS SYMPTOM FREE NOW C/O SHORTNESS OF BREATH WITH THE CHEST PAIN NO SWEATS NO SWELLING IN FEET/ANKLES NO NAUSEA/VOMITING NO PALPITATIONS NO DIZZINESS OR SYNCOPE PT HAS HISTORY OF CAD/ASVD AND HAS HAD CABG AND STENTS X 4, PLUS ANGIOPLASTIES, AND STENT IN LEFT LEG HAS HAD CHF, WELL COPD PT IS ON ASPIRIN, PLAVIX, IMDUR, RANEXA, AMLODIPINE, COREG, AND ATORVASTATIN HAD PNEUMONIA 11/08/19 AND WAS ADMITTED. NO PROBLEMS SINCE Allergies and Home Medications Allergies Coded Allergies: budesonide (Verified Allergy, Severe, angioedema, 12/06/18) formoterol (Verified Allergy, Severe, angioedema, 12/06/18) tetanus toxoid, adsorbed (Verified Allergy, Mild, hives, 12/06/18) DOROTA Inhibitors (Verified Allergy, Unknown, Angioedema, 12/06/18) Home Medications Albuterol Sulfate 2.5 Mg/3 Ml Vial.neb, 2.5 MG NEB TID, (Reported) Albuterol Sulfate 1 Puff Puff, 2 PUFF IH PRN PRN for SHORTNESS OF BREATH, (Reported) Amlodipine Besylate 5 Mg Tablet, 5 MG PO DAILY, (Reported) Amoxicillin/Potassium Clav 1 Each Tablet, 1 EACH PO BID Prescribed by: JUAREZ TOLENTINO on 11/11/19 0856 Aripiprazole 30 Mg Tablet, 30 MG PO DAILY, (Reported) Aspirin 81 Mg Tablet.dr, 81 MG PO DAILY, (Reported) Atorvastatin Calcium 80 Mg Tablet, 80 MG PO DAILY, (Reported) Bupropion HCl 75 Mg Tablet, 75 MG PO DAILY, (Reported) Carvedilol 6.25 Mg Tablet, 6.25 MG PO BID, (Reported) LAST FILLED 05-24-2019 #180/90 DAY SUPPLY Clopidogrel Bisulfate 75 Mg Tablet, 75 MG PO DAILY, (Reported) Fluticasone/Salmeterol 1 Each Blst.w.dev, 1 EACH IH DAILY, (Reported) Isosorbide Mononitrate 30 Mg Tab.er.24h, 15 MG PO DAILY, (Reported) TAKES 1/2 (30MG) TABLET Mirtazapine 30 Mg Tablet, 30 MG PO HS, (Reported) Montelukast Sodium 10 Mg Tablet, 10 MG PO DAILY, (Reported) Nitroglycerin 0.4 Mg Tab.subl, 0.4 MG PO UD PRN for CHEST PAIN, (Reported) [place] 3 Polyunsat Fatty Acids 1,000 Mg Cap, 1,000 MG PO DAILY, (Reported) Prednisone 10 Mg Tab, 10 MG PO DAILY resume after completing prednisone taper Prescribed by: JUAREZ TOLENTINO on 11/11/19854 Prednisone 10 Mg Tab.ds.pk, 10 MG PO DAILY Take 6 tabs(60mg)daily,decrease by 1 tab(10mg)every other day. Prescribed by: JUAREZ TOLENTINO on 11/11/19854 Ranolazine 1,000 Mg Tab.er.12h, 1,000 MG PO BID, (Reported) LAST FILLED 05-24-2019 #180/90 DAY SUPPLY Sertraline HCl 100 Mg Tablet, 200 MG PO DAILY, (Reported) TAKES 2 (100MG) TABS DAILY Patient Home Medication List Home Medication List Reviewed: Yes Review of Systems Review of Systems Constitutional: no symptoms reported EENTM: No Symptoms Reported Respiratory: Shortness of Air Cardiovascular: See HPI, Chest Pain Gastrointestinal: No Symptoms Reported Genitourinary: No Symptoms Reported Musculoskeletal: no symptoms reported Skin: no symptoms reported Psychiatric/Neurological: No Symptoms Reported Endocrine: No Symptoms Reported Hematologic/Lymphatic: No Symptoms Reported Past Uwphhwy-Zcdanm-Oiphgt Hx Past Med/Social Hx: Reviewed and Corrections made Patient Social History Alcohol Use: Past History (HX OF ABUSE, CLAIMS NONE FOR YEARS) Smoking Status: Former Smoker (06/10 PPD) Type Used: Cigarettes 2nd Hand Smoke Exposure: Yes Recent Foreign Travel: No Contact w/Someone Who Travel: No Recent Infectious Disease Expo: No Recent Hopitalizations: No Physical Abuse: No Sexual Abuse: No Mistreated: No Fear: No Immunizations Up To Date Tetanus Booster (TDap): Unknown PED Vaccines UTD: No Date of Pneumonia Vaccine: Mar 23, 2013 Date of Influenza Vaccine: Jul 31, 2017 Seasonal Allergies Seasonal Allergies: No Past Medical History Surgeries: Yes (SEE BELOW) Abdominal, Cardiac, CABG, Coronary Stent, Tonsillectomy, Vascular Surgery Respiratory: Yes (WEARS O2 AT 5L/NC CONTINUOUSLY. RUL PULMONARY NODULE) Pneumonia, Chronic Bronchitis, COPD Currently Using CPAP: No Currently Using BIPAP: No Cardiac: Yes (STENT X1/ANGIO L EXT ILIAC ART;CABG/STENT X4;CAROTID DZ;CHF;CARDIAC ARREST) Coronary Artery Disease, Deep Vein Thrombosis, Heart Attack, High Cholesterol, Hypertension, Peripheral Vascular Neurological: Yes Stroke Reproductive Disorders: No Sexually Transmitted Disease: No HIV/AIDS: No Genitourinary: No Gastrointestinal: Yes Gastroesophageal Reflux, Ulcer Musculoskeletal: Yes Arthritis, Chronic Back Pain Endocrine: No HEENT: No Loss of Vision: Denies Hearing Impairment: Denies Cancer: No Psychosocial: Yes Sleep Difficulties, Anxiety, Schizophrenia, Depression Integumentary: No Blood Disorders: No Adverse Reaction/Blood Tranf: No Family Medical History Diabetes mellitus 19 MOTHER FH: heart disease 19 FATHER Heart Disease, Diabetes SOCIAL HX: -HX OF ALCOHOL ABUSE--CLAIMS HE QUIT YEARS AGO -DENIES DRUG USE -SMOKED 1 1/ PPD--QUIT 2017 PSH: -CABG--1 VESSEL BYPASS -CARDIAC CATHS AND STENTS X 4, WITH ANGIOPLASTIES--LAST CARDIAC CATH 03/2018--PATENT STENT TO PROXIMAL LAD TO FIRST DIAGONAL, COMPLETE OCCLUSION OF MID LAD AND TO VEIN GRAFT TO LAD; EF 45-50%--NO INTERVENTION DONE AT THAT TIME AND FINDINGS WERE THE SAME THOSE FOUND ON CARDIAC CATH IN 2014 -ANGIOPLASTY AND STENT X 1 TO LEFT LEG/EXTERNAL ILIAC ARTERY 02/2017 -RIGHT INGUINAL HERNIA REPAIR -TONSILLECTOMY ADDITIONAL PMH: -HX OF CARDIAC ARREST -CAROTID DISEASE--SEVERE ON RIGHT -RBBB ; LAFB Physical Exam Vital Signs Vital Signs - First Documented 01/23/20 01/23/20 19:57 19:58 Temp 36.8 Pulse 90 B/P (MAP) 148/80 (102) Pulse Ox 97 O2 Delivery Nasal Cannula O2 Flow Rate 2.00 Capillary Refill : Less Than 3 Seconds Height, Weight, BMI Height: 5'8.00" Weight: 174lbs. 0.0oz. 78.890253qs; 28.00 BMI Method:Stated General Appearance: No Apparent Distress, WD/WN Neck: Full Range of Motion, Normal Inspection, Non Tender, Supple Respiratory: Chest Non Tender, Normal Breath Sounds, No Accessory Muscle Use, No Respiratory Distress Cardiovascular: Regular Rate, Rhythm, No Edema, No JVD, No Murmur, Normal Peripheral Pulses Gastrointestinal: Normal Bowel Sounds, No Organomegaly, No Pulsatile Mass, Non Tender, Soft Extremity: Normal Capillary Refill, Normal Inspection, Normal Range of Motion, Non Tender, No Calf Tenderness, No Pedal Edema Neurologic/Psychiatric: Alert, Oriented x3, No Motor/Sensory Deficits, Normal 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/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, production 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 II-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 Norm as Tested Skin: Normal Color, Warm/Dry; No Rash Progress/Results/Core Measures Results/Orders Lab Results Laboratory Tests Test 01/23/20 19:47 01/23/20 22:42 Range/Units White Blood Count 5.4 4.3-11.0 10^3/uL Red Blood Count 3.60 L 4.35-5.85 10^6/uL Hemoglobin 10.6 L 13.3-17.7 G/DL Hematocrit 36 L 40-54 % Mean Corpuscular Volume 99 80-99 FL Mean Corpuscular Hemoglobin 29 25-34 PG Mean Corpuscular Hemoglobin Concent 30 L 32-36 G/DL Red Cell Distribution Width 12.9 10.0-14.5 % Platelet Count 151 130-400 10^3/uL Mean Platelet Volume 10.2 7.4-10.4 FL Neutrophils (%) (Auto) 76 H 42-75 % Lymphocytes (%) (Auto) 19 12-44 % Monocytes (%) (Auto) 4 0-12 % Eosinophils (%) (Auto) 0 0-10 % Basophils (%) (Auto) 0 0-10 % Neutrophils # (Auto) 4.1 1.8-7.8 X 10^3 Lymphocytes # (Auto) 1.0 1.0-4.0 X 10^3 Monocytes # (Auto) 0.2 0.0-1.0 X 10^3 Eosinophils # (Auto) 0.0 0.0-0.3 10^3/uL Basophils # (Auto) 0.0 0.0-0.1 10^3/uL Prothrombin Time 12.6 12.2-14.7 SEC INR Comment 0.9 0.8-1.4 Activated Partial Thromboplast Time 34 24-35 SEC Sodium Level 144 135-145 MMOL/L Potassium Level 4.5 3.6-5.0 MMOL/L Chloride Level 95 L 98-107 MMOL/L Carbon Dioxide Level 41 H 21-32 MMOL/L Anion Gap 8 5-14 MMOL/L Blood Urea Nitrogen 9 7-18 MG/DL Creatinine 0.89 0.60-1.30 MG/DL Estimat Glomerular Filtration Rate > 60 BUN/Creatinine Ratio 10 Glucose Level 117 H 70-105 MG/DL Calcium Level 9.1 8.5-10.1 MG/DL Corrected Calcium 9.1 8.5-10.1 MG/DL Magnesium Level 1.8 1.6-2.4 MG/DL Total Bilirubin 0.4 0.1-1.0 MG/DL Aspartate Amino Transf (AST/SGOT) 17 5-34 U/L Alanine Aminotransferase (ALT/SGPT) 17 0-55 U/L Alkaline Phosphatase 92 40-136 U/L Total Creatine Kinase 68 30-200 U/L Creatine Kinase MB 1.6 <6.6 NG/ML Myoglobin 38.3 10.0-92.0 NG/ML Troponin I < 0.028 < 0.028 <0.028 NG/ML B-Type Natriuretic Peptide 21.9 <100.0 PG/ML Total Protein 6.9 6.4-8.2 GM/DL Albumin 4.0 3.2-4.5 GM/DL Amylase Level 48 25-125 U/L Lipase 21 8-78 U/L My Orders Orders - DEBBIE ESPINOSA DO Cbc With Automated Diff (01/23/20 19:52) Magnesium (01/23/20 19:52) Chest 1 View, Ap/Pa Only (01/23/20:52) Ekg Tracing (01/23/20:52) Comprehensive Metabolic Panel (01/23/20 19:52) Myoglobin Serum (01/23/20 19:52) Protime With Inr (01/23/20 19:52) Partial Thromboplastin Time (01/23/20 19:52) O2 (01/23/20 19:52) Monitor-Rhythm Ecg Trace Only (01/23/20 19:52) Ed Iv/Invasive Line Start (01/23/20 19:52) Creatine Kinase (01/23/20 19:52) Creatine Kinase Mb (01/23/20 19:52) Lipase (01/23/20 19:52) Amylase (01/23/20 19:52) BNP (01/23/20 19:52) Troponin I (01/23/20 19:52) Ekg Tracing (01/23/20 22:37) Troponin I (01/23/20 22:37) Vital Signs/I&O 01/23/20 01/23/20 19:57 19:58 Temp 36.8 Pulse 90 B/P (MAP) 148/80 (102) Pulse Ox 97 O2 Delivery Nasal Cannula O2 Flow Rate 2.00 Blood Pressure Mean: 102 Progress Progress Note : Progress Note 2014--STATES HE "FEELS GOOD" AND "I'M READY TO GO HOME" --HAS NO SYMPTOMS OF ANY KIND NOW 2039--PT IS STILL SYMPTOM FREE AND ANXIOUS TO GO HOME. WILL REMOVE NITROPASTE AND DO REPEAT 3 HOUR TROPONIN AND EKG, AND IF STILL PAIN FREE AND TROPONIN IS NEGATIVE AND EKG UNCHANGED, WILL LET PT GO HOME, OTHERWISE WILL ADMIT. NO PAIN OR ANY SYMPTOMS FOR ENTIRE ER STAY REPEAT TROPONIN NEGATIVE AND EKG UNCHANGED PT ANXIOUS TO GO HOME Initial ECG Impression Date: Jan 23, 2020 Initial ECG Impression Time: 19:49 Initial ECG Rate: 89 Initial ECG Rhythm: Normal Sinus (RBBB, LAFB, WITH MUCH ARTIFACT) EKG : EKG Time: 23:00 Rate: 83 Rhythm: Normal Sinus ECG Comparisson: Unchanged Diagnostic Imaging Comments CXR--PER RADIOLOGIST REPORT AT 2038 FINDINGS: Frontal view of the chest is compared to an exam from November 10. Previous infiltrates have cleared. Coronary artery bypass graft changes are present. The heart and vascularity are normal. IMPRESSION: There are no acute findings. Reviewed: Reviewed by Me Departure Impression Primary Impression: Chest pain Disposition: HOME, SELF-CARE Condition: Improved Departure-Patient Inst. Referrals: JOSHUA CASTILLO MD, WEN-CHOU MD (PCP/Family) Primary Care Physician Patient Instructions: Chest Pain (DC) Add. Discharge Instructions: CONTINUE YOUR MEDICATIONS PRESCRIBED FOLLOW UP WITH DR. CASTILLO THIS WEEK FOR FURTHER CARE--CALL IN THE MORNING TO SCHEDULE AN APPOINTMENT RETURN TO ER IF SYMPTOMS RETURN All discharge instructions reviewed with patient and/or family. Voiced understanding. DEBBIE ESPINOSA DO Jan 23, 2020 20:34
--- NOTE | 2020-01-23 20:35 | Diagnostic Imaging Report ---
INDICATION: Chest pain. FINDINGS: Frontal view of the chest is compared to an exam from November 10. Previous infiltrates have cleared. Coronary artery bypass graft changes are present. The heart and vascularity are normal. IMPRESSION: There are no acute findings. Dictated by: Dictated on workstation # [id number]
[2020-01-23 23:20] VITALS: BP 134/73
== END 2020-01-23 23:20 | disposition home or self-care (01) ==
LOC: EDUNIT# 19:40 → ER 19:43
DX: R07.89 Other chest pain (principal); I25.10 Atherosclerotic heart disease of native coronary artery without angina pectoris; J44.9 Chronic obstructive pulmonary disease, unspecified; I25.2 Old myocardial infarction; E78.00 Pure hypercholesterolemia, unspecified; I10 Essential (primary) hypertension; F20.9 Schizophrenia, unspecified; F41.9 Anxiety disorder, unspecified; F32.9 Major depressive disorder, single episode, unspecified; Z79.82 Long term (current) use of aspirin; Z79.02 Long term (current) use of antithrombotics/antiplatelets; Z88.8 Allergy status to other drugs, medicaments and biological substances; Z88.7 Allergy status to serum and vaccine; Z86.718 Personal history of other venous thrombosis and embolism; Z86.73 Personal history of transient ischemic attack (TIA), and cerebral infarction without residual deficits; Z95.1 Presence of aortocoronary bypass graft; Z95.5 Presence of coronary angioplasty implant and graft; Z79.52 Long term (current) use of systemic steroids; Z87.891 Personal history of nicotine dependence; Z82.49 Family history of ischemic heart disease and other diseases of the circulatory system
CPT/HCPCS: 36415; 71045; 80053; 82150; 82550; 82553; 83690; 83735; 83874; 83880; 84484; 85025; 85610; 85730; 93005; 93041

== ENCOUNTER 2020-04-30 15:04 | Inpatient (IN) | payer MEDICARE, MEDICAID ==
[~2020-04-30] VITALS: Ht 172.7 cm; Wt 85.2 kg
[~2020-04-30 15:04] MED LIST changes: +AMLO-250 PO; -AMLO5TAB9 PO; +ASPI-1238 PO; -ASPI-983 PO
[2020-04-30] MEDS ORDERED: morphine INJ 10 MG/ML 1ML (SYR OR VIAL) IV STA (15:10)
[2020-04-30] MEDS ORDERED: RT-ALBUTEROL/IPRATROPIUM 3 ML (DUONEB) VIAL INH ONE (15:15)
--- NOTE | 2020-04-30 15:15 | ED Chest Pain ---
General Chief Complaint: Chest Pain Stated Complaint: CHEST PAIN Source: patient, EMS Exam Limitations: no limitations History of Present Illness Date Seen by Provider: Apr 30, 2020 Time Seen by Provider: 15:00 Initial Comments Patient presents ER by EMS from home with chief complaint of right-sided chest pain radiating towards his left side of his chest starting about an hour ago and rates it as 10 out of 10. 2 doses of nitroglycerin one from his home and one from EMS did nothing to help his pain. 324 mg of aspirin was given en route by EMS. 2 mg morphine were given which dropped him from a 10 to a 9. He is not having any new shortness of air. He is dependent on oxygen 5 L of baseline for COPD. He is known to Dr. Gray, Dr. Gray and Dr. Hanks for primary care. He's been requiring his breathing treatments more frequently lately. He has not on steroids. Not having any nausea sweats dysuria or diarrhea. He does have a history of heart attack in 2005 resulting in CABG. He's been taking the rest of his medications as prescribed. Allergies and Home Medications Allergies Coded Allergies: budesonide (Verified Allergy, Severe, angioedema, 12/06/18) formoterol (Verified Allergy, Severe, angioedema, 12/06/18) tetanus toxoid, adsorbed (Verified Allergy, Mild, hives, 12/06/18) DOROTA Inhibitors (Verified Allergy, Unknown, Angioedema, 12/06/18) Home Medications Albuterol Sulfate 2.5 Mg/3 Ml Vial.neb, 2.5 MG NEB TID, (Reported) Albuterol Sulfate 1 Puff Puff, 2 PUFF IH PRN PRN for SHORTNESS OF BREATH, (Reported) Amlodipine Besylate 5 Mg Tablet, 5 MG PO DAILY, (Reported) Amoxicillin/Potassium Clav 1 Each Tablet, 1 EACH PO BID Prescribed by: JUAREZ LUQUE on 11/11/19 0856 Aripiprazole 30 Mg Tablet, 30 MG PO DAILY, (Reported) Aspirin 81 Mg Tablet.dr, 81 MG PO DAILY, (Reported) Atorvastatin Calcium 80 Mg Tablet, 80 MG PO DAILY, (Reported) Bupropion HCl 75 Mg Tablet, 75 MG PO DAILY, (Reported) Carvedilol 6.25 Mg Tablet, 6.25 MG PO BID, (Reported) LAST FILLED 05-24-2019 #180/90 DAY SUPPLY Clopidogrel Bisulfate 75 Mg Tablet, 75 MG PO DAILY, (Reported) Fluticasone/Salmeterol 1 Each Blst.w.dev, 1 EACH IH DAILY, (Reported) Isosorbide Mononitrate 30 Mg Tab.er.24h, 15 MG PO DAILY, (Reported) TAKES 1/2 (30MG) TABLET Mirtazapine 30 Mg Tablet, 30 MG PO HS, (Reported) Montelukast Sodium 10 Mg Tablet, 10 MG PO DAILY, (Reported) Nitroglycerin 0.4 Mg Tab.subl, 0.4 MG PO UD PRN for CHEST PAIN, (Reported) [place] 3 Polyunsat Fatty Acids 1,000 Mg Cap, 1,000 MG PO DAILY, (Reported) Prednisone 10 Mg Tab, 10 MG PO DAILY resume after completing prednisone taper Prescribed by: JUAREZ LUQUE on 11/11/19854 Prednisone 10 Mg Tab.ds.pk, 10 MG PO DAILY Take 6 tabs(60mg)daily,decrease by 1 tab(10mg)every other day. Prescribed by: JUAREZ LUQUE on 11/11/19854 Ranolazine 1,000 Mg Tab.er.12h, 1,000 MG PO BID, (Reported) LAST FILLED 05-24-2019 #180/90 DAY SUPPLY Sertraline HCl 100 Mg Tablet, 200 MG PO DAILY, (Reported) TAKES 2 (100MG) TABS DAILY Patient Home Medication List Home Medication List Reviewed: Yes Review of Systems Review of Systems Constitutional: No chills, No fever, No malaise EENTM: No Blurred Vision, No Double Vision Respiratory: Denies Cough; Shortness of Air Cardiovascular: Chest Pain; Denies Lightheadedness Gastrointestinal: Denies Abdominal Pain, Denies Constipated, Denies Diarrhea, Denies Nausea Genitourinary: Denies Burning, Denies Discharge Musculoskeletal: No back pain, No joint pain Skin: No pruritus, No rash Psychiatric/Neurological: Denies Anxiety, Denies Headache All Other Systems Reviewed Negative Unless Noted: Yes Past Ujvywny-Viqpmy-Pkqtbk Hx Patient Social History Alcohol Use: Denies Use Recreational Drug Use: No Smoking Status: Current Everyday Smoker Type Used: Cigarettes 2nd Hand Smoke Exposure: Yes Recent Hopitalizations: No Immunizations Up To Date Tetanus Booster (TDap): Unknown PED Vaccines UTD: No Date of Pneumonia Vaccine: Mar 23, 2013 Date of Influenza Vaccine: Jul 31, 2017 Seasonal Allergies Seasonal Allergies: No Past Medical History Surgeries: Yes (SEE BELOW) Abdominal, Cardiac, CABG, Coronary Stent, Tonsillectomy, Vascular Surgery Respiratory: Yes (WEARS O2 AT 5L/NC CONTINUOUSLY. RUL PULMONARY NODULE) Pneumonia, Chronic Bronchitis, COPD Currently Using CPAP: No Currently Using BIPAP: No Cardiac: Yes (STENT X1/ANGIO L EXT ILIAC ART;CABG/STENT X4;CAROTID DZ;CHF;CARDIAC ARREST) Coronary Artery Disease, Deep Vein Thrombosis, Heart Attack, High Cholesterol, Hypertension, Peripheral Vascular Neurological: Yes Stroke Reproductive Disorders: No Sexually Transmitted Disease: No HIV/AIDS: No Genitourinary: No Gastrointestinal: Yes Gastroesophageal Reflux, Ulcer Musculoskeletal: Yes Arthritis, Chronic Back Pain Endocrine: No HEENT: No Loss of Vision: Denies Hearing Impairment: Denies Cancer: No Psychosocial: Yes Sleep Difficulties, Anxiety, Schizophrenia, Depression Integumentary: No Blood Disorders: No Adverse Reaction/Blood Tranf: No Family Medical History Diabetes mellitus 19 MOTHER FH: heart disease 19 FATHER Heart Disease, Diabetes SOCIAL HX: -HX OF ALCOHOL ABUSE--CLAIMS HE QUIT YEARS AGO -DENIES DRUG USE -SMOKED 1 06/10 PPD--QUIT 2017 PSH: -CABG--1 VESSEL BYPASS -CARDIAC CATHS AND STENTS X 4, WITH ANGIOPLASTIES--LAST CARDIAC CATH 03/2018--PATENT STENT TO PROXIMAL LAD TO FIRST DIAGONAL, COMPLETE OCCLUSION OF MID LAD AND TO VEIN GRAFT TO LAD; EF 45-50%--NO INTERVENTION DONE AT THAT TIME AND FINDINGS WERE THE SAME THOSE FOUND ON CARDIAC CATH IN 2014 -ANGIOPLASTY AND STENT X 1 TO LEFT LEG/EXTERNAL ILIAC ARTERY 02/2017 -RIGHT INGUINAL HERNIA REPAIR -TONSILLECTOMY ADDITIONAL PMH: -HX OF CARDIAC ARREST -CAROTID DISEASE--SEVERE ON RIGHT -RBBB ; LAFB Physical Exam Vital Signs Vital Signs - First Documented Capillary Refill : Height, Weight, BMI Height: 5'8.00" Weight: 174lbs. 0.0oz. 78.766313cm; 28.00 BMI Method:Stated General Appearance: No Apparent Distress, WD/WN HEENT: PERRL/EOMI, TMs Normal, Normal ENT Inspection, Pharynx Normal, Moist Mucous Membranes Neck: Full Range of Motion, Normal Inspection, Non Tender, Supple Respiratory: No Accessory Muscle Use, No Respiratory Distress (chronic dependence on 5 L oxygen by nasal cannula with sats 96-100%), Decreased Breath Sounds, Wheezing Cardiovascular: Regular Rate, Rhythm, Normal Peripheral Pulses Gastrointestinal: Normal Bowel Sounds, Non Tender, Soft Extremity: Normal Capillary Refill, Normal Inspection, Normal Range of Motion Neurologic/Psychiatric: Alert, Oriented x3 Skin: Normal Color, Warm/Dry Progress/Results/Core Measures Results/Orders Lab Results Laboratory Tests Test 04/30/20 15:08 04/30/20 16:15 04/30/20 16:22 Range/Units White Blood Count 6.0 4.3-11.0 10^3/uL Red Blood Count 3.38 L 4.35-5.85 10^6/uL Hemoglobin 9.9 L 13.3-17.7 G/DL Hematocrit 33 L 40-54 % Mean Corpuscular Volume 98 80-99 FL Mean Corpuscular Hemoglobin 29 25-34 PG Mean Corpuscular Hemoglobin Concent 30 L 32-36 G/DL Red Cell Distribution Width 12.7 10.0-14.5 % Platelet Count 172 130-400 10^3/uL Mean Platelet Volume 10.4 7.4-10.4 FL Neutrophils (%) (Auto) 63 42-75 % Lymphocytes (%) (Auto) 26 12-44 % Monocytes (%) (Auto) 9 0-12 % Eosinophils (%) (Auto) 2 0-10 % Basophils (%) (Auto) 0 0-10 % Neutrophils # (Auto) 3.8 1.8-7.8 X 10^3 Lymphocytes # (Auto) 1.6 1.0-4.0 X 10^3 Monocytes # (Auto) 0.5 0.0-1.0 X 10^3 Eosinophils # (Auto) 0.1 0.0-0.3 10^3/uL Basophils # (Auto) 0.0 0.0-0.1 10^3/uL Prothrombin Time 13.4 12.2-14.7 SEC INR Comment 1.0 0.8-1.4 Activated Partial Thromboplast Time 30 24-35 SEC Sodium Level 143 135-145 MMOL/L Potassium Level 4.5 3.6-5.0 MMOL/L Chloride Level 94 L 98-107 MMOL/L Carbon Dioxide Level 38 H 21-32 MMOL/L Anion Gap 11 5-14 MMOL/L Blood Urea Nitrogen 9 7-18 MG/DL Creatinine 0.81 0.60-1.30 MG/DL Estimat Glomerular Filtration Rate > 60 BUN/Creatinine Ratio 11 Glucose Level 83 70-105 MG/DL Calcium Level 8.6 8.5-10.1 MG/DL Corrected Calcium 8.9 8.5-10.1 MG/DL Magnesium Level 1.9 1.6-2.4 MG/DL Total Bilirubin 0.4 0.1-1.0 MG/DL Aspartate Amino Transf (AST/SGOT) 15 5-34 U/L Alanine Aminotransferase (ALT/SGPT) 11 0-55 U/L Alkaline Phosphatase 80 40-136 U/L Myoglobin 42.1 10.0-92.0 NG/ML Troponin I < 0.028 <0.028 NG/ML C-Reactive Protein High Sensitivity 3.69 H 0.00-0.50 MG/DL B-Type Natriuretic Peptide 20.5 <100.0 PG/ML Total Protein 6.5 6.4-8.2 GM/DL Albumin 3.6 3.2-4.5 GM/DL Lipase 46 8-78 U/L Procalcitonin 0.03 <0.10 NG/ML Blood Gas Puncture Site Blood Gas Patient Temperature 98.2 Arterial Blood pH 7.29 *L 7.37-7.43 Arterial Blood Partial Pressure CO2 94 *H 35-45 MMHG Arterial Blood Partial Pressure O2 238 H 79-93 MMHG Arterial Blood HCO3 44 *H 23-27 MMOL/L Arterial Blood Total CO2 47.0 H 21.0-31.0 MMOL/L Arterial Blood Oxygen Saturation 100 94-100 % Arterial Blood Base Excess 16.9 H -2.5-2.5 MMOL/L Dexter Test Blood Gas Ventilator Setting NO Blood Gas Inspired Oxygen 5 Coronavirus 2019 (RADHA) Negative Negative Micro Results Microbiology 04/30/20 Influenza Types A,B Antigen (ROBERT) - Final, Complete My Orders Orders - KRISTIN TIRADO Cbc With Automated Diff (04/30/20 15:10) Magnesium (04/30/20 15:10) Chest 1 View, Ap/Pa Only (04/30/20 15:10) Ekg Tracing (04/30/20 15:10) Comprehensive Metabolic Panel (04/30/20 15:10) Myoglobin Serum (04/30/20 15:10) Protime With Inr (04/30/20 15:10) Partial Thromboplastin Time (04/30/20 15:10) O2 (04/30/20 15:10) Monitor-Rhythm Ecg Trace Only (04/30/20 15:10) Lipid Panel (05/01/20 06:00) Ed Iv/Invasive Line Start (04/30/20 15:10) Lipase (04/30/20 15:10) BNP (04/30/20 15:10) Troponin I (04/30/20 15:10) Morphine Injection (Morphine Injection (04/30/20 15:10) Albuterol/Ipra Inhalation Soln (Duoneb I (04/30/20 15:15) Svn Small Volume Nebulizer (04/30/20 15:15) Arterial Blood Gas (04/30/20 15:55) Influenza A And B Antigens (04/30/20 16:06) Covid 19 Inhouse Test (04/30/20 16:06) Procalcitonin (Pct) (04/30/20 16:06) Hs C Reactive Protein (04/30/20 16:06) Methylprednisolone Sod Succ (Solu-Medrol (04/30/20 17:15) Vital Signs/I&O 04/30/20 04/30/20 04/30/20 04/30/20 15:07 15:07 15:29 16:26 Temp 36.8 Pulse 71 70 Resp 24 22 B/P (MAP) 134/76 (95) Pulse Ox 100 100 92 O2 Delivery Nasal Cannula Nasal Cannula Nasal Cannula O2 Flow Rate 5.00 5.00 5.0 30.00 Progress Progress Note #1: Time: 16:04 Progress Note Dose of morphine helped his pain so we gave him 4 more IV morphine. He's quite wheezy sort and give him a dose of DuoNeb as well. Is not having any fevers or chills or productive cough. He does have some atelectasis versus pneumonitis on the chest x-ray but no white count. We'll add a CRP and a pro calcitonin. Progress Note #2: Time: 16:14 Progress Note CO2 retention on ABG. Put him on 15/5 BiPAP and he is tolerating this well. Initial ECG Impression Date: Apr 30, 2020 Initial ECG Impression Time: 15:10 Initial ECG Rate: 68 Initial ECG Rhythm: Normal Sinus Initial ECG Intervals: Normal Initial ECG Impression: Normal, Nonspecific Changes Comment Normal sinus rhythm without only relevant ST elevation or depression. Diagnostic Imaging Diagonstic Imaging: Xray Plain Films/CT/US/NM/MRI: chest (1v) Comments NAME: [facility] REC#: [id number] PT STATUS: REG ER : 1955 PHYSICIAN: KRISTIN TIRADO MD ADMIT DATE: 04/30/20/ER Draft Date of Exam:04/30/20 CHEST 1 VIEW, AP/PA ONLY EXAM: Chest 1 view, AP/PA only. INDICATION: Chest pain. COMPARISON: Chest radiograph 01/23/2020. FINDINGS: Sternotomy with CABG. Normal heart size and central pulmonary vascularity. Elevation of the right hemidiaphragm. There is increasing airspace consolidation in the right lung base. No pleural effusion or pneumothorax. No acute osseous finding. IMPRESSION: Increasing airspace opacification in the right lung base suspicious for pneumonitis, possibly atelectasis. Dictated on workstation # [id number] Dict: 04/30/20 1542 Trans: 04/30/20 1544 [facility] [id number] Interpreted by: MRAGOT MALDONADO MD Electronically signed by: Reviewed: Reviewed by Me Departure Communication (Admissions) Time/Spoke to Admitting Phy: 15:45 Discussed the case with Dr. Luque and she agrees to observe the patient for chest pain ACS workup. Time/Spoke to Consulting Phy: 17:15 Discussed the case with Dr. Jurado and he wants a 2-D echo in the morning, serial troponins and Plavix bolused tonight. Impression Primary Impression: COPD with exacerbation Additional Impressions: Acute on chronic respiratory failure with hypercapnia Acute coronary syndrome without high troponin Disposition: ADMITTED INPATIENT Condition: Improved Admissions Decision to Admit Reason: Admit from ER (General) Decision to Admit/Date: Apr 30, 2020 Time/Decision to Admit Time: 16:34 Departure-Patient Inst. Referrals: BRANDON RODAS MD (PCP/Family) Primary Care Physician KRISTIN TIRADO Apr 30, 2020 15:15
[2020-04-30 15:20] LABS: HEMATOCRIT 33 % (40-54); HEMOGLOBIN 9.9 G/DL (13.3-17.7); MEAN CORPUSCULAR HEMOGLOBIN 29 PG (25-34); MEAN CORPUSCULAR HGB CONC 30 G/DL (32-36); MEAN CORPUSCULAR VOLUME 98 FL (80-99)
[2020-04-30 15:21] LABS: BASOPHILS % (AUTO) 0 % (0-10); EOSINOPHILS % (AUTO) 2 % (0-10); LYMPHOCYTES % (AUTO) 26 % (12-44); MEAN PLATELET VOLUME 10.4 FL (7.4-10.4); MONOCYTES % (AUTO) 9 % (0-12); NEUTROPHILS % (AUTO) 63 % (42-75); PLATELET COUNT 172 10^3/uL (130-400)
[2020-04-30 15:29] LABS: PROTHROMBIN TIME PATIENT 13.4 SEC (12.2-14.7)
[2020-04-30 15:30] LABS: ALBUMIN 3.6 GM/DL (3.2-4.5)
[2020-04-30 15:31] LABS: CHLORIDE 94 MMOL/L (98-107); POTASSIUM 4.5 MMOL/L (3.6-5.0); SODIUM 143 MMOL/L (135-145)
[2020-04-30 15:32] LABS: CALCIUM 8.6 MG/DL (8.5-10.1); EOSINOPHILS # (AUTO) 0.1 10^3/uL (0.0-0.3); LYMPHOCYTES # (AUTO) 1.6 X 10^3 (1.0-4.0); MONOCYTES # (AUTO) 0.5 X 10^3 (0.0-1.0); NEUTROPHILS # (AUTO) 3.8 X 10^3 (1.8-7.8)
[2020-04-30 15:33] LABS: GLUCOSE 83 MG/DL (70-105); TOTAL PROTEIN 6.5 GM/DL (6.4-8.2)
[2020-04-30 15:34] LABS: CARBON DIOXIDE 38 MMOL/L (21-32)
[2020-04-30 15:35] LABS: BILIRUBIN,TOTAL 0.4 MG/DL (0.1-1.0)
[2020-04-30 15:36] LABS: ALKALINE PHOSPHATASE 80 U/L (40-136); CREATININE SERUM 0.81 MG/DL (0.60-1.30); GFR ESTIMATED > 60
[2020-04-30 15:38] LABS: BUN/CREATININE RATIO 11
[2020-04-30 15:39] LABS: ALANINE AMINOTRANSFERASE 11 U/L (0-55); MAGNESIUM 1.9 MG/DL (1.6-2.4)
[2020-04-30 15:40] LABS: LIPASE 46 U/L (8-78)
--- NOTE | 2020-04-30 15:45 | Diagnostic Imaging Report ---
EXAM: Chest 1 view, AP/PA only. INDICATION: Chest pain. COMPARISON: Chest radiograph 01/23/2020. FINDINGS: Sternotomy with CABG. Normal heart size and central pulmonary vascularity. Elevation of the right hemidiaphragm. There is increasing airspace consolidation in the right lung base. No pleural effusion or pneumothorax. No acute osseous finding. IMPRESSION: Increasing airspace opacification in the right lung base suspicious for pneumonitis, possibly atelectasis. Dictated by: Dictated on workstation # [id number]
[2020-04-30 16:18] LABS: ABG BASE EXCESS 16.9 MMOL/L (-2.5-2.5); ABG OXYGEN SATURATION 100 % (94-100); ABG PO2 238 MMHG (79-93)
[2020-04-30 16:20] LABS: ABG PCO2 94 MMHG (35-45); ABG PH 7.29 (7.37-7.43); INSPIRED O2 5; VENTILATOR NO
[2020-04-30 16:21] LABS: PATIENT TEMP 98.2
[2020-04-30 16:26] VITALS: BP 127/72
[2020-04-30] MEDS ORDERED: methylPREDNISolone 125 MG (Solu-MEDROL) VIAL IVP ONE (17:15)
[2020-04-30] MEDS ORDERED: CLOPIDOGREL 300 MG (PLAVIX) TABLET PO ONE (17:30)
[2020-04-30] MEDS ORDERED: ENOXAPARIN 80 MG/0.8 ML (LOVENOX) SYR SC ONE (17:30)
--- NOTE | 2020-04-30 18:04 | NUR ---
ICE WATER TO PT AT THIS TIME.
[2020-04-30 18:31] VITALS: BP 127/73
[2020-04-30] MEDS ORDERED: RT-ALBUTEROL/IPRATROPIUM 3 ML (DUONEB) VIAL ONE (20:34)
[2020-04-30] MEDS ORDERED: DexMEDEtomidine PRE MIX 100 ML IV ONE (21:46)
[2020-04-30 21:58] VITALS: BP 139/69
[2020-04-30] MEDS ORDERED: morphine INJ 4 MG/ML 1 ML (VIAL/SYRINGE) IVP PRN (22:15)
[2020-04-30] MEDS ORDERED: NITROGLYCERIN 0.4 MG SL TABS BTL 25'S SL PRN (22:15)
[2020-04-30] MEDS ORDERED: ONDANSETRON 4 MG/2 ML (SDV) Z0FRAN IVP PRN (22:15)
[2020-04-30 22:24] LABS: ABG BASE EXCESS 16.5 MMOL/L (-2.5-2.5); ABG OXYGEN SATURATION 65 % (94-100); ABG PCO2 67 MMHG (35-45); ABG PH 7.41 (7.37-7.43); ABG PO2 42 MMHG (79-93); ABG TCO2 44.5 MMOL/L (21.0-31.0); ALLENS TEST POSITIVE; INSPIRED O2 30% BIPAP; PATIENT TEMP 36; VENTILATOR NO
[2020-04-30] MEDS ORDERED: DexMEDEtomidine PRE MIX 100 ML IV SCH (22:30)
[2020-04-30] MEDS: methylPREDNISolone 40 MG/ML (Solu-MEDROL) VIAL IV SCH (23:50)
[2020-05-01] MEDS ORDERED: RT-ALBUTEROL SULF 2.5 MG/3 ML PRE-MIX VIAL INH SCH (02:00)
[2020-05-01] MEDS: RT-ALBUTEROL INHALER HFA (VENTOLIN HFA) 18 GM IH SCH ×6 (03:22→22:08)
[2020-05-01 03:23] VITALS: BP 139/69
[2020-05-01 03:39] LABS: ABG BASE EXCESS 13.5 MMOL/L (-2.5-2.5); ABG OXYGEN SATURATION 95 % (94-100); ABG PCO2 65 MMHG (35-45); ABG PO2 76 MMHG (79-93); ABG TCO2 41.2 MMOL/L (21.0-31.0)
[2020-05-01 03:40] LABS: BASOPHILS % (AUTO) 0 % (0-10); EOSINOPHILS % (AUTO) 0 % (0-10); HEMATOCRIT 33 % (40-54); HEMOGLOBIN 9.9 g/dL (13.3-17.7); LYMPHOCYTES # (AUTO) 0.5 10^3/uL (1.0-4.0); LYMPHOCYTES % (AUTO) 13 % (12-44); MEAN CORPUSCULAR HEMOGLOBIN 29 pg (25-34); MEAN CORPUSCULAR HGB CONC 30 g/dL (32-36); MEAN CORPUSCULAR VOLUME 98 fL (80-99); MEAN PLATELET VOLUME 10.8 fL (9.0-12.2); MONOCYTES % (AUTO) 1 % (0-12); NEUTROPHILS # (AUTO) 3.7 10^3/uL (1.8-7.8); NEUTROPHILS % (AUTO) 87 % (42-75); PLATELET COUNT 146 10^3/uL (130-400); WHITE BLOOD COUNT 4.3 10^3/uL (4.3-11.0)
[2020-05-01 03:41] LABS: ALLENS TEST POSITIVE; INSPIRED O2 30% BIPAP; PATIENT TEMP 36.2; VENTILATOR NO
[2020-05-01 03:52] LABS: CHLORIDE 91 MMOL/L (98-107); SODIUM 139 MMOL/L (135-145)
[2020-05-01 03:53] LABS: ALBUMIN 3.8 GM/DL (3.2-4.5)
[2020-05-01 03:54] LABS: CALCIUM 8.8 MG/DL (8.5-10.1)
[2020-05-01 03:55] LABS: GLUCOSE 142 MG/DL (70-105); TOTAL PROTEIN 6.7 GM/DL (6.4-8.2); TRIGLYCERIDES 47 MG/DL (<150); VLDL CHOLESTEROL 9 MG/DL (5-40)
[2020-05-01 03:56] LABS: CARBON DIOXIDE 35 MMOL/L (21-32)
[2020-05-01 03:57] LABS: BILIRUBIN,TOTAL 0.3 MG/DL (0.1-1.0)
[2020-05-01 03:58] LABS: PHOSPHORUS 3.1 MG/DL (2.3-4.7)
[2020-05-01 03:59] LABS: ALKALINE PHOSPHATASE 84 U/L (40-136); CREATININE SERUM 0.92 MG/DL (0.60-1.30); GFR ESTIMATED > 60
[2020-05-01 04:00] LABS: BUN/CREATININE RATIO 15; CHOLESTEROL 146 MG/DL (< 200)
[2020-05-01 04:01] LABS: HDL CHOLESTEROL 62 MG/DL (40-60)
[2020-05-01 04:02] LABS: ALANINE AMINOTRANSFERASE 14 U/L (0-55); MAGNESIUM 1.7 MG/DL (1.6-2.4)
[2020-05-01 04:29] LABS: BAND NEUTROPHILS 2 %; BLAST CELLS 2 %; LYMPHOCYTES % (MANUAL) 14 %; MONOCYTES % (MANUAL) 3 %; NEUTROPHILS % (MANUAL) 79 %; POLYCHROMASIA SLIGHT
[2020-05-01] MEDS: methylPREDNISolone 40 MG/ML (Solu-MEDROL) VIAL IV SCH ×4 (05:09→20:39)
[2020-05-01] MEDS: MAGNESIUM 1 GM/100 ML IVPB 100 ML IV SCH ×2 (05:09→06:34)
[2020-05-01] MEDS ORDERED: MAGNESIUM 1 GM/100 ML IVPB 100 ML IV SCH (06:00)
[2020-05-01] MEDS ORDERED: POTASSIUM CL 10MEQ/50ML IVPB 50 ML IV SCH (06:00)
[2020-05-01] MEDS ORDERED: KCL 20 MEQ TAB (K-DUR) PO SCH (06:00)
[2020-05-01] MEDS ORDERED: NS IV 500 ML 500 ML ONE (06:29)
[2020-05-01] MEDS ORDERED: NS 100 ML (IVPB) BAG IV ONE ×2 (06:30→06:45)
[2020-05-01] MEDS ORDERED: NS (IVPB) 500 ML IV ONE (06:45)
[2020-05-01 06:59] VITALS: BP 150/89
[2020-05-01] MEDS ORDERED: NS IV 500 ML 500 ML IV ONE (07:00)
[2020-05-01] MEDS: ASPIRIN E.C. 81 MG (ECOTRIN) TAB PO SCH (08:22)
[2020-05-01] MEDS: CLOPIDOGREL 75 MG (PLAVIX) TABLET PO SCH (08:22)
--- NOTE | 2020-05-01 12:43 | NUR ---
PER DR ZABALA AND DR SAL, PATIENT MAY GO TO FOURTH FLOOR WITH TELEMETRY.
--- NOTE | 2020-05-01 13:30 | NUR ---
REPORT CALLED TO RACHEL RICHARDS. PATIENT TRANSFERRED VIA W/C TO ROOM 421 USING COVID PUI PRECAUTIONS WITHOUT DIFFICULTIES. ALL PERSONAL BELONGINGS WITH PATIENT.
--- NOTE | 2020-05-01 13:40 | NUR ---
PATIENT ARRIVED TO ROOM WITH ALL BELONGINGS. REPORT RECEIVED FROM PRESTON RAMOS. I AGREE WITH PREVIOUS RN'S ASSESSMENT AND WILL ASSUME CARE AT THIS TIME. PATIENT RESTING IN BED WITH CALL LIGHT IN REACH, NO COMPLAINTS VOICED AT THIS TIME.
[2020-05-01] MEDS ORDERED: ASPI-999 PO (13:44)
[2020-05-01] MEDS ORDERED: ARIP10TA17 PO (13:44)
--- NOTE | 2020-05-01 14:10 | NUR ---
SPOKE WITH THE PT (I CALLED HIS ROOM PHONE) , I ALSO CALLED HIS OLU, WENT THRU THE EXT MED HISTORY, AND CALLED [facility] AND DR. KEY OFFICE TO COMPLETE THE MED REC PT WAS ABLE TO NAME ALL HIS MEDICATIONS AND HIS TOLD ME HOW/WHEN HE TAKES EACH RANEXA- DIRECTIONS ARE 1 TAB BID HOWEVER OLU LET ME KNOW THAT THE PT ONLY TAKES 1 TAB DAILY MONTELUKAST 10MG WAS LAST FILLED ON 02-16-2020 #30/30DS- I INCLUDED THE PAST DUE FILL DATE ON THE MED REC ON 04-03-2020 [facility] FILLED SERTRALINE 100MG #60/30DS AND ATORVASTATIN 80MG #90/90DS PT SAYS HE USES ADVAIR AND SPIRIVA HOWEVER [facility] DOES NOT HAVE THIS ON FILE AND WHEN I CALLED DR. KEY OFFICE [facility] LET ME KNOW THAT THEY HAVE NEVER GIVEN SAMPLES. I ASKED THE PT ABOUT WHERE HE FILLED HIS INHALERS AT AND WINTER LET ME KNOW HE GOT THEM AT [facility] [employer] (THEY HAVE BEEN CLOSED SINCE 2016)- FOR THESE REASONS I DID NOT INCLUDE THE ABOVE MEDICATIONS ON THE MED REC OTC MEDS: ASPIRIN 81MG
--- NOTE | 2020-05-01 15:14 | History & Physical-Hospitalist ---
History of Present Illness HPI/Chief Complaint Ethan Dougherty is a 64-year-old male with past medical history of hypertension, hyperlipidemia, coronary artery disease, COPD, chronic hypoxic respiratory failure on 5 L, depression, who presented with chest pain. He reports that the chest pain was on the right side of his chest and radiated to the center of his chest. He denies any shortness of breath. He denies any neck or arm pain. He denies any palpitations. He denies any diaphoresis. He denies any nausea or vomiting. He denies any fevers. Source: patient Exam Limitations: no limitations Date Seen 05/01/20 Time Seen by a Provider: 09:10 Attending Physician Taya Luque MD PCP Judi Zepeda MD Referring Physician Date of Admission Apr 30, 2020 at 17:00 Home Medications & Allergies Home Medications Reviewed patient Home Medication Reconciliation performed by pharmacy medication reconciliations communication electronic technician and/or nursing. Patients Allergies have been reviewed. Allergies Allergies Coded Allergies budesonide (Verified Allergy, Severe, angioedema, 12/06/18) formoterol (Verified Allergy, Severe, angioedema, 12/06/18) tetanus toxoid, adsorbed (Verified Allergy, Mild, hives, 12/06/18) DOROTA Inhibitors (Verified Allergy, Unknown, Angioedema, 12/06/18) Past Zfipigs-Rqssnh-Qdjuyf Hx Past Med/Social Hx: Reviewed Nursing Past Med/Soc Hx Patient Social History Alcohol Use: Denies Use Recreational Drug Use: No Smoking Status: Current Everyday Smoker Former Smoker, Quit: Dec 16, 2017 Type Used: Cigarettes 2nd Hand Smoke Exposure: Yes Recent Foreign Travel: No Contact w/other who traveled: No Recent Hopitalizations: No Recent Infectious Disease Expo: No Immunizations Up To Date Tetanus Booster (TDap): Unknown Pediatric: No Date of Pneumonia Vaccine: Apr 26, 2020 Date of Influenza Vaccine: Apr 26, 2020 Seasonal Allergies Seasonal Allergies: No Past Medical History Surgeries: Abdominal, Cardiac, CABG, Coronary Stent, Tonsillectomy, Vascular Surgery Respiratory: COPD Currently Using CPAP: No Currently Using BIPAP: No Cardiac: Coronary Artery Disease, Deep Vein Thrombosis, Heart Attack, High Cholesterol, Hypertension, Peripheral Vascular Neurological: Stroke Reproductive: No Sexually Transmitted Disease: No HIV/AIDS: No Gastrointestinal: Gastroesophageal Reflux, Ulcer Musculoskeletal: Arthritis, Chronic Back Pain Loss of Vision: Denies Hearing Impairment: Denies Psychosocial: Sleep Difficulties, Anxiety, Schizophrenia, Depression History of Blood Disorders: No Adverse Reaction to Blood Ang: No Family History Diabetes mellitus 19 MOTHER FH: heart disease 19 FATHER Heart Disease, Diabetes SOCIAL HX: -HX OF ALCOHOL ABUSE--CLAIMS HE QUIT YEARS AGO -DENIES DRUG USE -SMOKED 1 06/10 PPD--QUIT 2017 PSH: -CABG--1 VESSEL BYPASS -CARDIAC CATHS AND STENTS X 4, WITH ANGIOPLASTIES--LAST CARDIAC CATH 03/2018--PATENT STENT TO PROXIMAL LAD TO FIRST DIAGONAL, COMPLETE OCCLUSION OF MID LAD AND TO VEIN GRAFT TO LAD; EF 45-50%--NO INTERVENTION DONE AT THAT TIME AND FINDINGS WERE THE SAME THOSE FOUND ON CARDIAC CATH IN 2014 -ANGIOPLASTY AND STENT X 1 TO LEFT LEG/EXTERNAL ILIAC ARTERY 02/2017 -RIGHT INGUINAL HERNIA REPAIR -TONSILLECTOMY ADDITIONAL PMH: -HX OF CARDIAC ARREST -CAROTID DISEASE--SEVERE ON RIGHT -RBBB ; LAFB Review of Systems Constitutional: no symptoms reported EENTM: no symptoms reported Respiratory: no symptoms reported Cardiovascular: chest pain Gastrointestinal: no symptoms reported Genitourinary: no symptoms reported Musculoskeletal: no symptoms reported Skin: no symptoms reported Psychiatric/Neurological: No Symptoms Reported Physical Exam Physical Exam Vital Signs Vital Signs - First Documented 04/30/20 20:29 FiO2 30 Capillary Refill : Less Than 3 Seconds Height, Weight, BMI Height: 5'8.00" Weight: 174lbs. 0.0oz. 78.426423ny; 27.00 BMI Method:Stated General Appearance: No Apparent Distress, WD/WN HEENT: PERRL/EOMI, Pharynx Normal Neck: Normal Inspection, Supple Respiratory: Lungs Clear, Normal Breath Sounds, No Respiratory Distress Cardiovascular: Regular Rate, Rhythm, No Edema, No Murmur Gastrointestinal: Normal Bowel Sounds, Non Tender, Soft Extremity: Normal Inspection, Non Tender, No Pedal Edema Neurologic/Psychiatric: Alert, Oriented x3, No Motor/Sensory Deficits, Normal Mood/Affect Skin: Normal Color, Warm/Dry Results Results/Procedures Labs Laboratory Tests 04/30/20 15:08 05/01/20 03:15 Patient resulted labs reviewed. Imaging: Reviewed Imaging Report Assessment/Plan Admission Diagnosis Acute on chronic respiratory failure with hypoxia and hypercapnia Admission Status: Inpatient Order (span 2 midnights) Reason for Inpatient Admission: Respiratory failure requiring BiPAP Chest pain requring cardiology evaluation Assessment and Plan Acute on chronic respiratory failure with hypoxemia and hypercapnia COPD with acute exacerbation Afebrile, WBC normal, procalcitonin normal ABG revealed acute hypercapnia Required BiPAP overnight Repeat ABG improved Continue steroids MAT protocol COVID RADHA negative, PCR pending Chest pain CAD Troponins remained normal Cardiology consulted, appreciate assistance Will likely need stress test HTN HLD Depression DVT Prophylaxis: Lovenox Diagnosis/Problems Diagnosis/Problems (1) Acute on chronic respiratory failure with hypoxia and hypercapnia Status: Acute (2) COPD with acute exacerbation Status: Acute (3) HTN (hypertension) Status: Chronic (4) CAD (coronary artery disease) Status: Chronic (5) Chest pain Status: Acute (6) Hyperlipidemia Status: Chronic (7) Depression Status: Chronic Clinical Quality Measures AMI/AHF: ASA po Prior to arrival: Yes (324MG BY EMS) DVT/VTE Risk/Contraindication: Risk Factor Score Per Nursin RFS Level Per Nursing on Admit: 4+=Very High ROHIT SAL MD May 01, 2020 15:13
[2020-05-01] MEDS ORDERED: ENOXAPARIN 40 MG/0.4 ML (LOVENOX) SYR SC SCH (15:15)
--- NOTE | 2020-05-01 23:30 | NUR ---
Called to Pt room at this time, pt stated he was bleeding from ABG site. Upon assessment, appeared to be a skin tear to Lt lateral arm. Cleaned site, applied gauze and pressure dressing. Pt stated he gets skin tears often at home.
[2020-05-02] MEDS: RT-ALBUTEROL INHALER HFA (VENTOLIN HFA) 18 GM IH SCH ×3 (01:56→11:03)
[2020-05-02 05:13] LABS: BASOPHILS % (AUTO) 0 % (0-10); EOSINOPHILS % (AUTO) 0 % (0-10); HEMATOCRIT 34 % (40-54); HEMOGLOBIN 10.4 g/dL (13.3-17.7); LYMPHOCYTES # (AUTO) 0.6 10^3/uL (1.0-4.0); LYMPHOCYTES % (AUTO) 10 % (12-44); MEAN CORPUSCULAR HEMOGLOBIN 29 pg (25-34); MEAN CORPUSCULAR HGB CONC 31 g/dL (32-36); MEAN CORPUSCULAR VOLUME 95 fL (80-99); MEAN PLATELET VOLUME 10.5 fL (9.0-12.2); MONOCYTES # (AUTO) 0.2 10^3/uL (0.0-1.0); MONOCYTES % (AUTO) 4 % (0-12); NEUTROPHILS # (AUTO) 5.3 10^3/uL (1.8-7.8); NEUTROPHILS % (AUTO) 86 % (42-75); PLATELET COUNT 162 10^3/uL (130-400); WHITE BLOOD COUNT 6.1 10^3/uL (4.3-11.0)
[2020-05-02 05:24] LABS: CHLORIDE 96 MMOL/L (98-107); POTASSIUM 4.1 MMOL/L (3.6-5.0); SODIUM 142 MMOL/L (135-145)
[2020-05-02 05:25] LABS: CALCIUM 8.6 MG/DL (8.5-10.1)
[2020-05-02 05:26] LABS: GLUCOSE 138 MG/DL (70-105)
[2020-05-02 05:27] LABS: CARBON DIOXIDE 35 MMOL/L (21-32)
[2020-05-02 05:29] LABS: PHOSPHORUS 3.9 MG/DL (2.3-4.7)
[2020-05-02 05:30] LABS: CREATININE SERUM 0.83 MG/DL (0.60-1.30); GFR ESTIMATED > 60
[2020-05-02 05:31] LABS: BUN/CREATININE RATIO 22
[2020-05-02 05:32] LABS: MAGNESIUM 2.1 MG/DL (1.6-2.4)
[2020-05-02] MEDS: methylPREDNISolone 40 MG/ML (Solu-MEDROL) VIAL IV SCH ×2 (05:51→11:54)
[2020-05-02] MEDS: ASPIRIN E.C. 81 MG (ECOTRIN) TAB PO SCH (09:00)
[2020-05-02] MEDS: CLOPIDOGREL 75 MG (PLAVIX) TABLET PO SCH (09:00)
[2020-05-02] MEDS ORDERED: PRED10TA22 PO (09:42)
--- NOTE | 2020-05-02 09:48 | NUR ---
CM FINALIZED DISCHARGE PLAN: Patient will dismiss to home today self care. He reports that he is on his baseline oxygen that he used at home. He denies any anticipated discharge needs. Reports that his son will bring his portable oxygen tank when he comes to pick him up.
--- NOTE | 2020-05-02 10:16 | Cardiology Progress Note ---
Objective-Cardiology Exam Last Set of Vital Signs Vital Signs 04/30/20 05/02/20 05/02/20 23:20 08:23 09:00 Temp 36.8 Pulse 85 Resp 20 B/P (MAP) 156/73 Pulse Ox 97 O2 Delivery Nasal Cannula O2 Flow Rate 3.00 FiO2 30 Capillary Refill : Less Than 3 Seconds I&O Intake and Output 05/02/20 00:00 Intake Total 1725 ml Output Total 980 ml Balance 745 ml Intake Oral 1025 ml IV Total 700 ml Output Urine Total 980 ml # Voids 2 Results Lab Laboratory Tests 05/02/20 04:40 A/P-Cardiology Assessment/Plan Acute on chronic respiratory failure with hypoxemia and hypercapnia COPD with acute exacerbation Afebrile, WBC normal, procalcitonin normal ABG revealed acute hypercapnia Required BiPAP overnight Repeat ABG improved Continue steroids MAT protocol COVID RADHA negative, PCR pending Chest pain CAD Troponins remained normal Cardiology consulted, appreciate assistance Will likely need stress test HTN HLD Depression DVT Prophylaxis: Lovenox Clinical Quality Measures AMI/AHF: ASA po Prior to arrival: Yes (324MG BY EMS) DVT/VTE Risk/Contraindication: Risk Factor Score Per Nursin RFS Level Per Nursing on Admit: 4+=Very High YOUNG FAJARDO May 02, 2020 10:16
--- NOTE | 2020-05-02 10:27 | Consultation-Cardiology ---
HPI-Cardiology Cardiology Consultation Date of Consultation 05/02/20 Date of Admission Time Seen by Provider: 09:10 Indication: Chest pain, dyspnea HPI 64 y/o male with hx of COPD, CAD, presented to the ER with complaints of chest pain and increased dypsnea over the past week. Denies any active chest pain at this time. Has hx of chronic stable angina. Dx with AE COPD. Patient reports he is feeling much better and being discharged home later today. Denies any dizziness, lightheadedness or palpitations. Home Medications & Allergies Allergies: Coded Allergies: budesonide (Verified Allergy, Severe, angioedema, 12/06/18) formoterol (Verified Allergy, Severe, angioedema, 12/06/18) tetanus toxoid, adsorbed (Verified Allergy, Mild, hives, 12/06/18) DOROTA Inhibitors (Verified Allergy, Unknown, Angioedema, 12/06/18) Home Medication List Reviewed: Yes [id number] Hx Patient Social History Alcohol Use: Denies Use Recreational Drug Use: No Smoking Status: Current Everyday Smoker Former smoker/When Quit: Aug 21, 2014 Type Used: Cigarettes 2nd Hand Smoke Exposure: Yes Recent Foreign Travel: No Recent Infectious Disease Expo: No Recent Hopitalizations: No Immunizations Up To Date Tetanus Booster (TDap): Unknown Date of Pneumonia Vaccine: Apr 26, 2020 Date of Influenza Vaccine: Apr 26, 2020 Past Medical History CAD, COPD, HTN, HLP Family Medical History Significant Family History: Heart Disease, Diabetes Family History: Diabetes mellitus 19 MOTHER FH: heart disease 19 FATHER Review of Systems-General Review of Systems Constitutional: no symptoms reported EENTM: no symptoms reported Respiratory: no symptoms reported Cardiovascular: chest pain Gastrointestinal: no symptoms reported Genitourinary: no symptoms reported Musculoskeletal: no symptoms reported Skin: no symptoms reported Psychiatric/Neurological: No Symptoms Reported All Other Systems Reviewed Negative Unless Noted: Yes Reviewed Test Results Reviewed Test Results Lab Laboratory Tests 05/02/20 04:40: White Blood Count 6.1, Red Blood Count 3.57L, Hemoglobin 10.4L, Hematocrit 34L, Mean Corpuscular Volume 95, Mean Corpuscular Hemoglobin 29, Mean Corpuscular Hemoglobin Concent 31L, Red Cell Distribution Width 12.7, Platelet Count 162, Mean Platelet Volume 10.5, Immature Granulocyte % (Auto) 0, Neutrophils (%) (Auto) 86H, Lymphocytes (%) (Auto) 10L, Monocytes (%) (Auto) 4, Eosinophils (%) (Auto) 0, Basophils (%) (Auto) 0, Neutrophils # (Auto) 5.3, Lymphocytes # (Auto) 0.6L, Monocytes # (Auto) 0.2, Eosinophils # (Auto) 0.0, Basophils # (Auto) 0.0, Immature Granulocyte # (Auto) 0.0, Sodium Level 142, Potassium Level 4.1, Chloride Level 96L, Carbon Dioxide Level 35H, Anion Gap 11, Blood Urea Nitrogen 18, Creatinine 0.83, Estimat Glomerular Filtration Rate > 60, BUN/Creatinine Ratio 22, Glucose Level 138H, Calcium Level 8.6, Phosphorus Level 3.9, Magnesium Level 2.1 Microbiology 04/30/20 MRSA Screen - Final, Complete MRSA not isolated Physical Exam Physical Exam Vital Signs Vital Signs - First Documented 04/30/20 20:29 FiO2 30 Capillary Refill : Less Than 3 Seconds Height, Weight, BMI Height: 5'8.00" Weight: 174lbs. 0.0oz. 78.238211nm; 27.00 BMI Method:Stated General Appearance: No Apparent Distress, WD/WN HEENT: PERRL/EOMI, Pharynx Normal Neck: Normal Inspection, Supple Respiratory: Lungs Clear, Normal Breath Sounds, No Respiratory Distress Cardiovascular: Regular Rate, Rhythm, No Edema, No Murmur Gastrointestinal: Normal Bowel Sounds, Non Tender, Soft Extremity: Normal Inspection, Non Tender, No Pedal Edema Neurologic/Psychiatric: Alert, Oriented x3, No Motor/Sensory Deficits, Normal Mood/Affect Skin: Normal Color, Warm/Dry A/P-Cardiology Admission Diagnosis Acute on chronic respiratory failure COPD CP CAD Assessment/Plan Acute on chronic respiratory failure with hypoxemia and hypercapnia, improving COPD with acute exacerbation, COVID RADHA negative, PCR negative Chest pain, non specific etiology, hx of chronic stable angina. EKG reveals no acute ST changes, cardiac enzymes negative. Planning for stress test as an outpatient Coronary artery disease, cardiac catheterization was done in September 2014 showing total occlusion of the LAD at its midportion with occluded vein graft to the LAD did not fill with collaterals on this study, patent stent in the proximal LAD to the diagonal artery, mild disease in the circumflex and right coronary artery, prominent left ventricle with EF 45 percent. Repeat cardiac catheterization was done in March 2018 showing total occlusion of the mid LAD and the vein graft to the LAD, patent stent in the proximal LAD that was providing flow to the first diagonal branch, mild disease in the circumflex artery and right coronary artery, the apex of the left ventricular still akinetic with ejection fraction 45-50 percent. Continue with medical therapy. History of congestive heart failure with left ventricular systolic dysfunction, last echocardiogram August 2018 showed normal left ventricular systolic function with ejection fraction 55-65 percent with pulmonary hypertension PA pressure of 45 mmHg. I will reevaluate 2D Echo Peripheral arterial disease, history of stent to the left lower extremity, having pain in his lower extremity, seen and evaluated with heart and vascular care, had angiogram and balloon angioplasty with angioscore cutting balloon 5x40 mm to the left external iliac then stenting to the left external iliac artery with 6x50 Viabahn postdilated with a Brent balloon. Done by Dr. Jackson. Followed by heart and vascular care. Hypertension, continue to monitor. Hyperlipidemia, monitor lipids Tobaccoism, expressed that he has stopped smoking, encouraged to continue with smoking cessation Carotid stenosis, showing severe right carotid stenosis, 60-79 percent. Mild left carotid stenosis 1-39 percent. Followed and managed by heart and vascular care. Anxiety. Thank you for allowing us to participate in the management of Mr. Dougherty. This is Carmen Juarez Pa-C, as a scribe for Dr. Carrion. Patient was seen and evaluated with Carmen, examination performed, management plan was discussed, agree with the current scribed note, I made few changes to the note using Italic font Patient is feeling better, using oxygen, back to his baseline No further episodes of chest pain I reassured the patient at this time, medical therapy is recommended no need for any further testing or intervention Arrange for follow-up as an outpatient Clinical Quality Measures AMI/AHF: ASA po Prior to arrival: Yes (324MG BY EMS) DVT/VTE Risk/Contraindication: Risk Factor Score Per Nursin RFS Level Per Nursing on Admit: 4+=Very High CARMEN FAJARDO May 02, 2020 10:27 am JOSHUA CARRION MD May 02, 2020 11:51 am
[2020-05-02 13:15] VITALS: BP 150/70
== END 2020-05-02 13:15 | disposition home or self-care (01) | DRG 189 ==
LOC: EDUNIT# 15:04 → ER 15:05 → ICU 17:00 → 4TH 05-01 16:49
PROVIDERS: ADMIT Family Medicine; ATTEND Internal Medicine
DX: J96.21 Acute and chronic respiratory failure with hypoxia (principal); J44.1 Chronic obstructive pulmonary disease with (acute) exacerbation; I50.22 Chronic systolic (congestive) heart failure; J96.22 Acute and chronic respiratory failure with hypercapnia; Z20.828 Contact with and (suspected) exposure to other viral communicable diseases; R07.89 Other chest pain; I25.10 Atherosclerotic heart disease of native coronary artery without angina pectoris; I11.0 Hypertensive heart disease with heart failure; E78.5 Hyperlipidemia, unspecified; F32.9 Major depressive disorder, single episode, unspecified; F17.210 Nicotine dependence, cigarettes, uncomplicated; I73.9 Peripheral vascular disease, unspecified; I65.29 Occlusion and stenosis of unspecified carotid artery; F41.9 Anxiety disorder, unspecified; I27.20 Pulmonary hypertension, unspecified; Z95.5 Presence of coronary angioplasty implant and graft
CPT/HCPCS: 36415; 71045; 80048; 80053; 80061; 82805; 83690; 83735; 83874; 83880; 84100; 84145; 84484; 85007; 85025; 85027; 85610; 85730; 86141; 87081; 87635; 87804; 93005; 93041; 93306; 94640; 94660

== ENCOUNTER 2020-06-28 22:08 | Observation (INO) | payer MEDICARE, MEDICAID ==
[~2020-06-28] VITALS: Ht 173 cm; Wt 86.3 kg
[~2020-06-28 22:08] MED LIST changes: +ARIP10TA17 PO; -MONT10TA26 PO; +MONT10TA97 PO
[2020-06-28] MEDS ORDERED: morphine INJ 10 MG/ML 1ML (SYR OR VIAL) IV STA (22:17)
[2020-06-28 22:30] LABS: BASOPHILS % (AUTO) 0 % (0-10); EOSINOPHILS # (AUTO) 0.1 10^3/uL (0.0-0.3); EOSINOPHILS % (AUTO) 2 % (0-10); LYMPHOCYTES % (AUTO) 26 % (12-44); MEAN CORPUSCULAR HEMOGLOBIN 29 pg (25-34); MEAN CORPUSCULAR HGB CONC 30 g/dL (32-36); MONOCYTES % (AUTO) 10 % (0-12)
[2020-06-28 22:31] LABS: ALBUMIN 3.7 GM/DL (3.2-4.5); CHLORIDE 94 MMOL/L (98-107); POTASSIUM 4.2 MMOL/L (3.6-5.0); SODIUM 142 MMOL/L (135-145)
[2020-06-28 22:32] LABS: HEMATOCRIT 33 % (40-54); LYMPHOCYTES # (AUTO) 1.5 10^3/uL (1.0-4.0); MEAN CORPUSCULAR VOLUME 97 fL (80-99); MEAN PLATELET VOLUME 10.8 fL (9.0-12.2); MONOCYTES # (AUTO) 0.5 10^3/uL (0.0-1.0); NEUTROPHILS # (AUTO) 3.5 10^3/uL (1.8-7.8); NEUTROPHILS % (AUTO) 62 % (42-75); PLATELET COUNT 142 10^3/uL (130-400); WHITE BLOOD COUNT 5.6 10^3/uL (4.3-11.0)
[2020-06-28 22:33] LABS: CALCIUM 8.9 MG/DL (8.5-10.1)
[2020-06-28 22:34] LABS: GLUCOSE 112 MG/DL (70-105); TOTAL PROTEIN 6.6 GM/DL (6.4-8.2)
[2020-06-28 22:35] LABS: BILIRUBIN,TOTAL 0.2 MG/DL (0.1-1.0); CARBON DIOXIDE 41 MMOL/L (21-32)
[2020-06-28 22:37] LABS: ALKALINE PHOSPHATASE 103 U/L (40-136); CREATININE SERUM 0.85 MG/DL (0.60-1.30); GFR ESTIMATED > 60
[2020-06-28 22:38] LABS: BUN/CREATININE RATIO 9
[2020-06-28 22:40] LABS: ALANINE AMINOTRANSFERASE 15 U/L (0-55); MAGNESIUM 1.9 MG/DL (1.6-2.4)
[2020-06-28 22:41] LABS: FIBRIN DEGRADATION PRODUCTS 0.43 UG/ML (0.00-0.49)
--- NOTE | 2020-06-28 22:46 | ED Chest Pain ---
General Chief Complaint: Chest Pain Stated Complaint: CHEST PAIN Nursing Triage Note: BROUGHT IN BY [facility] FOR INTERMITTANT CHEST PAIN TODAY. NTG X4, 324 ASA, 5MG MSO4 DIRECTOR AUTOMOTIVE. Nursing Sepsis Screen: No Definite Risk Source: patient Exam Limitations: no limitations History of Present Illness Date Seen by Provider: Jun 28, 2020 Time Seen by Provider: 22:08 Initial Comments Here by EMS with report of chest pain that started earlier this afternoon and has been persistent since. He has had 4 sublingual nitros throughout the day and with EMS. ASA 324 mg p.o. given by EMS as well as 5 mg of morphine. This did decrease his pain from 10-7. States that it is on the left side and radiates to the left arm. Does have significant cardiac history as well as COPD history. Denies fever chills. Stays at home and his family brings him his needed items but they always wear a mask. No sick contacts. Denies contact with COVID-19. Does have history of COPD and has had several admissions for pneumonia as well. Also had several admissions for chest pain. States this feels like both his chest pain and pneumonia. Denies sore throat or runny nose. Denies nausea, vomiting or diarrhea. Is remaining stable on his typical 5 L via nasal cannula. His mechanical engineering specialist is Dr. Carrion. Timing/Duration: 12 hours Severity/Quality: moderate, severe Location: central Radiation: arms (Left) Activities at Onset: none Prior CP/Workup: cardiac cath, echocardiography, heart attack, stress test Modifying Factors: improves with morphine, improves with nitroglycerin, improves with oxygen ASA po DIRECTOR AUTOMOTIVE: Yes NTG SL DIRECTOR AUTOMOTIVE: Yes Associated Symptoms: No abdominal pain, No back pain, No diaphoresis, No fatigue, No fever/chills, No nausea/vomiting, No shortness of breath Allergies and Home Medications Allergies Coded Allergies: budesonide (Verified Allergy, Severe, angioedema, 12/06/18) formoterol (Verified Allergy, Severe, angioedema, 12/06/18) tetanus toxoid, adsorbed (Verified Allergy, Mild, hives, 12/06/18) DOROTA Inhibitors (Verified Allergy, Unknown, Angioedema, 12/06/18) Home Medications Albuterol Sulfate 2.5 Mg/3 Ml Vial.neb, 2.5 MG NEB TID, (Reported) Albuterol Sulfate 1 Puff Puff, 2 PUFF IH PRN PRN for SHORTNESS OF BREATH, (Reported) Amlodipine Besylate 5 Mg Tablet, 5 MG PO DAILY, (Reported) Aripiprazole 30 Mg Tablet, 30 MG PO DAILY, (Reported) TAKES 10MG +30MG TO EQUAL 40MG Aripiprazole 10 Mg Tablet, 10 MG PO DAILY, (Reported) TAKES 10MG +30MG TO EQUAL 40MG Aspirin 81 Mg Tab.chew, 81 MG PO DAILY, (Reported) Atorvastatin Calcium 80 Mg Tablet, 80 MG PO DAILY, (Reported) Bupropion HCl 75 Mg Tablet, 75 MG PO DAILY, (Reported) Carvedilol 6.25 Mg Tablet, 6.25 MG PO BID, (Reported) Clopidogrel Bisulfate 75 Mg Tablet, 75 MG PO DAILY, (Reported) Isosorbide Mononitrate 30 Mg Tab.er.24h, 15 MG PO DAILY, (Reported) TAKES 1/2 (30MG) TABLET Mirtazapine 30 Mg Tablet, 30 MG PO HS, (Reported) Montelukast Sodium 10 Mg Tablet, 10 MG PO DAILY, (Reported) LAST FILLED 02-16-2020 #30 DAY SUPPLY Nitroglycerin 0.4 Mg Tab.subl, 0.4 MG PO UD PRN for CHEST PAIN, (Reported) Prednisone 10 Mg Tab.ds.pk, 10 MG PO DAILY Take 6 tabs(60mg)daily,decrease by 1 tab(10MG)daily. Prescribed by: ROHIT SAL on 05/02/20 0942 Ranolazine 1,000 Mg Tab.er.12h, 1,000 MG PO DAILY, (Reported) Sertraline HCl 100 Mg Tablet, 200 MG PO DAILY, (Reported) TAKES 2 (100MG) TABS DAILY Patient Home Medication List Home Medication List Reviewed: Yes Review of Systems Review of Systems Constitutional: see HPI EENTM: No Symptoms Reported Respiratory: Denies SOA at Rest; Wheezing Cardiovascular: Chest Pain, Edema Gastrointestinal: See HPI Genitourinary: No Symptoms Reported Musculoskeletal: see HPI All Other Systems Reviewed Negative Unless Noted: Yes Past [id number]-Ubsnbu-Acojtx Hx Past Med/Social Hx: Reviewed Nursing Past Med/Soc Hx Patient Social History Alcohol Use: Denies Use Smoking Status: Former Smoker Type Used: Cigarettes Former Smoker, Quit: Dec 16, 2017 2nd Hand Smoke Exposure: Yes Recent Infectious Disease Expo: No Recent Hopitalizations: No Immunizations Up To Date Tetanus Booster (TDap): Unknown PED Vaccines UTD: No Date of Pneumonia Vaccine: Apr 26, 2020 Date of Influenza Vaccine: Apr 26, 2020 Seasonal Allergies Seasonal Allergies: No Past Medical History Surgeries: Yes Abdominal, Cardiac, CABG, Coronary Stent, Tonsillectomy, Vascular Surgery Respiratory: Yes (WEARS O2 AT 5L/NC CONTINUOUSLY. RUL PULMONARY NODULE) Pneumonia, Chronic Bronchitis, COPD Currently Using CPAP: No Currently Using BIPAP: No Cardiac: Yes (STENT X1/ANGIO L EXT ILIAC ART;CABG/STENT X4;CAROTID DZ;CHF;CARDIAC ARREST) Coronary Artery Disease, Deep Vein Thrombosis, Heart Attack, High Cholesterol, Hypertension, Peripheral Vascular Neurological: Yes Stroke Reproductive Disorders: No Sexually Transmitted Disease: No HIV/AIDS: No Genitourinary: No Gastrointestinal: Yes Gastroesophageal Reflux, Ulcer Musculoskeletal: Yes Arthritis, Chronic Back Pain Endocrine: No HEENT: No Loss of Vision: Denies Hearing Impairment: Denies Cancer: No Psychosocial: Yes Sleep Difficulties, Anxiety, Schizophrenia, Depression Integumentary: No Blood Disorders: No Adverse Reaction/Blood Tranf: No Family Medical History Reviewed Nursing Family Hx Diabetes mellitus 19 MOTHER FH: heart disease 19 FATHER Heart Disease, Diabetes SOCIAL HX: -HX OF ALCOHOL ABUSE--CLAIMS HE QUIT YEARS AGO -DENIES DRUG USE -SMOKED 1 06/10--QUIT 2017 PSH: -CABG--1 VESSEL BYPASS -CARDIAC CATHS AND STENTS X 4, WITH ANGIOPLASTIES--LAST CARDIAC CATH 03/2018--PATENT STENT TO PROXIMAL LAD TO FIRST DIAGONAL, COMPLETE OCCLUSION OF MID LAD AND TO VEIN GRAFT TO LAD; EF 45-50%--NO INTERVENTION DONE AT THAT TIME AND FINDINGS WERE THE SAME THOSE FOUND ON CARDIAC CATH IN 2014 -ANGIOPLASTY AND STENT X 1 TO LEFT LEG/EXTERNAL ILIAC ARTERY 02/2017 -RIGHT INGUINAL HERNIA REPAIR -TONSILLECTOMY ADDITIONAL PMH: -HX OF CARDIAC ARREST -CAROTID DISEASE--SEVERE ON RIGHT -RBBB ; LAFB Physical Exam Vital Signs Vital Signs - First Documented 06/28/20 22:10 Temp 36.7 Pulse 87 Resp 18 B/P (MAP) 131/71 (91) Capillary Refill : Less Than 3 Seconds Height, Weight, BMI Height: 5'8.00" Weight: 174lbs. 0.0oz. 78.561296qw; 28.00 BMI Method:Stated General Appearance: No Apparent Distress, Chronically ill HEENT: PERRL/EOMI, Pharynx Normal Neck: Non Tender, Supple Respiratory: No Respiratory Distress, Wheezing (Few scattered wheezes) Cardiovascular: Regular Rate, Rhythm Gastrointestinal: Non Tender, Soft Extremity: Normal Range of Motion, Non Tender Neurologic/Psychiatric: Alert, Oriented x3 Skin: Normal Color, Warm/Dry Progress/Results/Core Measures Results/Orders Lab Results Laboratory Tests Test 06/28/20 22:10 Range/Units White Blood Count 5.6 4.3-11.0 10^3/uL Red Blood Count 3.43 L 4.30-5.52 10^6/uL Hemoglobin 10.0 L 13.3-17.7 g/dL Hematocrit 33 L 40-54 % Mean Corpuscular Volume 97 80-99 fL Mean Corpuscular Hemoglobin 29 25-34 pg Mean Corpuscular Hemoglobin Concent 30 L 32-36 g/dL Red Cell Distribution Width 12.6 10.0-14.5 % Platelet Count 142 130-400 10^3/uL Mean Platelet Volume 10.8 9.0-12.2 fL Immature Granulocyte % (Auto) 0 % Neutrophils (%) (Auto) 62 42-75 % Lymphocytes (%) (Auto) 26 12-44 % Monocytes (%) (Auto) 10 0-12 % Eosinophils (%) (Auto) 2 0-10 % Basophils (%) (Auto) 0 0-10 % Neutrophils # (Auto) 3.5 1.8-7.8 10^3/uL Lymphocytes # (Auto) 1.5 1.0-4.0 10^3/uL Monocytes # (Auto) 0.5 0.0-1.0 10^3/uL Eosinophils # (Auto) 0.1 0.0-0.3 10^3/uL Basophils # (Auto) 0.0 0.0-0.1 10^3/uL Immature Granulocyte # (Auto) 0.0 0.0-0.1 10^3/uL Prothrombin Time 13.0 12.2-14.7 SEC INR Comment 1.0 0.8-1.4 Activated Partial Thromboplast Time 40 H 24-35 SEC D-Dimer 0.43 0.00-0.49 UG/ML Sodium Level 142 135-145 MMOL/L Potassium Level 4.2 3.6-5.0 MMOL/L Chloride Level 94 L 98-107 MMOL/L Carbon Dioxide Level 41 H 21-32 MMOL/L Anion Gap 7 5-14 MMOL/L Blood Urea Nitrogen 8 7-18 MG/DL Creatinine 0.85 0.60-1.30 MG/DL Estimat Glomerular Filtration Rate > 60 BUN/Creatinine Ratio 9 Glucose Level 112 H 70-105 MG/DL Calcium Level 8.9 8.5-10.1 MG/DL Corrected Calcium 9.1 8.5-10.1 MG/DL Magnesium Level 1.9 1.6-2.4 MG/DL Total Bilirubin 0.2 0.1-1.0 MG/DL Aspartate Amino Transf (AST/SGOT) 17 5-34 U/L Alanine Aminotransferase (ALT/SGPT) 15 0-55 U/L Alkaline Phosphatase 103 40-136 U/L Myoglobin 37.5 10.0-92.0 NG/ML Troponin I < 0.028 <0.028 NG/ML C-Reactive Protein High Sensitivity 6.96 H 0.00-0.50 MG/DL B-Type Natriuretic Peptide 30.6 <100.0 PG/ML Total Protein 6.6 6.4-8.2 GM/DL Albumin 3.7 3.2-4.5 GM/DL Procalcitonin 0.03 <0.10 NG/ML My Orders Orders - ANTOINETTE SANDHU MD Cbc With Automated Diff (06/28/20 22:17) Magnesium (06/28/20 22:17) Chest 1 View, Ap/Pa Only (06/28/20 22:17) Ekg Tracing (06/28/20 22:17) Comprehensive Metabolic Panel (06/28/20 22:17) Myoglobin Serum (06/28/20 22:17) Protime With Inr (06/28/20 22:17) Partial Thromboplastin Time (06/28/20 22:17) O2 (06/28/20 22:17) Monitor-Rhythm Ecg Trace Only (06/28/20 22:17) Lipid Panel (06/29/20 06:00) Ed Iv/Invasive Line Start (06/28/20 22:17) Troponin I (06/28/20 22:17) Morphine Injection (Morphine Injection (06/28/20 22:17) BNP (06/28/20 22:17) Hs C Reactive Protein (06/28/20 22:17) Procalcitonin (Pct) (06/28/20 22:17) Fibrin Degradation Products (06/28/20 22:10) Lactated Ringers (Lr 1000 Ml Iv Solution (06/28/20 23:15) Medications Given in ED Current Medications Medications Dose Ordered Sig/Shira Route Start Time Stop Time Status Last Admin Dose Admin Lactated Ringer's 1,000 ml @ 0 mls/hr Q0M ONCE IV 06/28/20 23:15 06/28/20 23:16 DC 06/28/20 23:18 0 MLS/HR Vital Signs/I&O 06/28/20 06/28/20 06/28/20 22:10 22:10 22:10 Temp 36.7 Pulse 87 Resp 18 B/P (MAP) 131/71 (91) Pulse Ox 99 99 O2 Delivery Nasal Cannula Nasal Cannula Nasal Cannula O2 Flow Rate 5.00 5.0 5.0 06/29/20 00:00 Intake Total 200 ml Balance 200 ml Blood Pressure Mean: 91 Progress Progress Note : Progress Note Seen and evaluated. IV, labs, EKG and chest x-ray ordered. Chest pain order set initiated. Morphine 4 mg IV for continued pain. Monitor patient. 0055: Pain down to 1 out of 10 after morphine dosing. Initial set of troponin negative. Patient has significant cardiac history and will need further work-up and evaluation. I discussed this with the patient. He is agreeable to admission. I did discuss the case with Dr. Nash and she accepts patient for admission for the hospitalist service. Consult cardiology in a.m. We will continue Plavix. Chest pain order set to be initiated. Admit, observation status. Patient agrees with plan. Initial ECG Impression Date: Jun 28, 2020 Initial ECG Impression Time: 22:12 Initial ECG Rate: 84 Initial ECG Rhythm: Normal Sinus Comment Sinus rhythm with left atrial abnormality and incomplete right bundle branch block and left fascicular block. Left axis deviation. No evidence of ST el evation SC. Similar to 05/01/2020. Interpreted by me. Diagnostic Imaging Diagonstic Imaging: Xray Plain Films/CT/US/NM/MRI: chest Comments Chronic lung disease but no acute findings Reviewed: Reviewed by Me Departure Communication (Admissions) Time/Spoke to Admitting Phy: 00:55 Impression Primary Impression: Chest pain Qualified Codes: R07.9 - Chest pain, unspecified Disposition: ADMITTED INPATIENT Condition: Stable Admissions Decision to Admit Reason: Admit from ER (General) Decision to Admit/Date: Jun 29, 2020 Time/Decision to Admit Time: 00:55 Departure-Patient Inst. Referrals: BRANDON RODAS MD (PCP/Family) Primary Care Physician ANTOINETTE SANDHU MD Jun 28, 2020 22:46
[2020-06-28] MEDS ORDERED: LACTATED RINGERS 1,000 ML IV ONE (23:15)
[2020-06-29] VITALS (11 sets, daily range): BP systolic 107–143; BP diastolic 60–80
[2020-06-29] MEDS ORDERED: ONDANSETRON 4 MG/2 ML (SDV) Z0FRAN IVP PRN (01:45)
[2020-06-29] MEDS ORDERED: LACTATED RINGERS 1,000 ML IV SCH (01:45)
--- NOTE | 2020-06-29 01:49 | NUR ---
WINTER PIEDRA admitted to room 414-1, with an admitting diagnosis of chest pain , on 06/29/20 from [facility] ER, accompanied by staff .WINTER PIEDRA introduced to surroundings, call light, bed controls, phone, TV, temperature control, lights, meal times, smoking policy, visitor policy, side rail policy, bathrooms and showers. Patient Rights given to patient in the handbook. WINTER PIEDRA verbalizes understanding that [facility] is not responsible for the loss or damage to any personal effects or valuables that are kept in the patients posession during their hospitalization.
[2020-06-29] MEDS ORDERED: morphine INJ 10 MG/ML 1ML (SYR OR VIAL) IVP PRN (02:00)
[2020-06-29] MEDS ORDERED: NITROGLYCERIN 0.4 MG SL TABS BTL 25'S SL PRN (02:00)
--- NOTE | 2020-06-29 03:38 | NUR ---
Albuterol svn QID and PRN. initiate 02 to keep sats greater than 90%. rt to reassess or reevaluate in 72 hours or as needed. Addendum: 06/29/20 at 0339 by CHARLENE QUINONES RT Amended: Links added.
[2020-06-29] MEDS ORDERED: RT-ALBUTEROL SULF 2.5 MG/3 ML PRE-MIX VIAL INH PRN (03:45)
[2020-06-29 05:51] LABS: BASOPHILS % (AUTO) 0 % (0-10); EOSINOPHILS # (AUTO) 0.1 10^3/uL (0.0-0.3); EOSINOPHILS % (AUTO) 2 % (0-10); HEMATOCRIT 32 % (40-54); HEMOGLOBIN 9.3 g/dL (13.3-17.7); LYMPHOCYTES # (AUTO) 1.3 10^3/uL (1.0-4.0); LYMPHOCYTES % (AUTO) 27 % (12-44); MEAN CORPUSCULAR HEMOGLOBIN 29 pg (25-34); MEAN CORPUSCULAR HGB CONC 29 g/dL (32-36); MEAN CORPUSCULAR VOLUME 99 fL (80-99); MEAN PLATELET VOLUME 10.5 fL (9.0-12.2); MONOCYTES # (AUTO) 0.5 10^3/uL (0.0-1.0); MONOCYTES % (AUTO) 10 % (0-12); NEUTROPHILS # (AUTO) 2.9 10^3/uL (1.8-7.8); NEUTROPHILS % (AUTO) 61 % (42-75); PLATELET COUNT 120 10^3/uL (130-400); WHITE BLOOD COUNT 4.7 10^3/uL (4.3-11.0)
[2020-06-29 06:40] LABS: ALBUMIN 3.5 GM/DL (3.2-4.5); CHLORIDE 96 MMOL/L (98-107); POTASSIUM 4.6 MMOL/L (3.6-5.0); SODIUM 141 MMOL/L (135-145)
[2020-06-29 06:41] LABS: CALCIUM 8.5 MG/DL (8.5-10.1)
[2020-06-29 06:42] LABS: GLUCOSE 94 MG/DL (70-105); TOTAL PROTEIN 6.1 GM/DL (6.4-8.2); TRIGLYCERIDES 39 MG/DL (<150); VLDL CHOLESTEROL 8 MG/DL (5-40)
[2020-06-29 06:43] LABS: CARBON DIOXIDE 38 MMOL/L (21-32)
[2020-06-29 06:44] LABS: BILIRUBIN,TOTAL 0.2 MG/DL (0.1-1.0)
[2020-06-29 06:46] LABS: ALKALINE PHOSPHATASE 93 U/L (40-136); CREATININE SERUM 0.78 MG/DL (0.60-1.30); GFR ESTIMATED > 60
[2020-06-29 06:47] LABS: BUN/CREATININE RATIO 9; CHOLESTEROL 139 MG/DL (< 200)
[2020-06-29 06:48] LABS: HDL CHOLESTEROL 68 MG/DL (40-60)
[2020-06-29 06:49] LABS: ALANINE AMINOTRANSFERASE 14 U/L (0-55)
--- NOTE | 2020-06-29 07:21 | NUR ---
DR CHAVEZ CONSULTED. ORDER 2D ECHO IF HE HASN'T HAD ONE IN THE LAST 3 MONTHS.
--- NOTE | 2020-06-29 07:33 | Diagnostic Imaging Report ---
INDICATION: Chest pain. AP view of the chest is obtained with comparison made study of 04/30/2020. FINDINGS: There is mild basilar atelectasis, bilaterally. Overall aeration of lungs has shown improvement. No pneumothorax is identified. There is no significant pleural fluid. IMPRESSION: Persistent or recurrent basilar atelectasis is seen bilaterally, however aeration is improved compared to previous study. Dictated by: Dictated on workstation # [id number]
--- NOTE | 2020-06-29 07:54 | Consultation-Cardiology ---
HPI-Cardiology Cardiology Consultation: Date of Consultation 06/29/20 Date of Admission Attending Physician Mel Nash DO Admitting Physician Judi Zepeda MD Consulting Physician Emely Gray MD Primary Patternmaker Grader: Dr. Carrion Review of Systems-Cardiology All Other Systems Reviewed Negative Unless Noted: Yes [id number] Hx Patient Social History Smoking Status: Former Smoker Former smoker/When Quit: Aug 21, 2014 2nd Hand Smoke Exposure: Yes Have you traveled recently?: No Alcohol Use?: No Pt feels they are or have been: No Immunizations Up To Date Tetanus Booster (TDap): Unknown Date of Pneumonia Vaccine: Apr 26, 2020 Date of Influenza Vaccine: Apr 26, 2020 Past Medical History PMH As described under Assessment. Family Medical History Family Medical History: Father had MD when he was in his early 50s Family History: Diabetes mellitus 19 MOTHER FH: heart disease 19 FATHER Allergies and Home Medications Allergies Coded Allergies: budesonide (Verified Allergy, Severe, angioedema, 12/06/18) formoterol (Verified Allergy, Severe, angioedema, 12/06/18) tetanus toxoid, adsorbed (Verified Allergy, Mild, hives, 12/06/18) DOROTA Inhibitors (Verified Allergy, Unknown, Angioedema, 12/06/18) Home Medications Albuterol Sulfate 2.5 Mg/3 Ml Vial.neb, 2.5 MG NEB TID PRN for SHORTNESS OF BREATH, (Reported) Albuterol Sulfate 1 Puff Puff, 2 PUFF IH PRN PRN for SHORTNESS OF BREATH, (Reported) Amlodipine Besylate 5 Mg Tablet, 5 MG PO DAILY, (Reported) Aripiprazole 30 Mg Tablet, 30 MG PO DAILY, (Reported) Aspirin 81 Mg Tab.chew, 81 MG PO DAILY, (Reported) Atorvastatin Calcium 80 Mg Tablet, 80 MG PO DAILY, (Reported) Bupropion HCl 75 Mg Tablet, 75 MG PO DAILY, (Reported) Carvedilol 6.25 Mg Tablet, 6.25 MG PO DAILY, (Reported) Clopidogrel Bisulfate 75 Mg Tablet, 75 MG PO DAILY, (Reported) Fish Oil/Dha/Epa 1 Each Capsule, 1 EACH PO DAILY, (Reported) Isosorbide Mononitrate 30 Mg Tab.er.24h, 30 MG PO DAILY, (Reported) Mirtazapine 30 Mg Tablet, 30 MG PO HS, (Reported) Montelukast Sodium 10 Mg Tablet, 10 MG PO DAILY, (Reported) Nitroglycerin 0.4 Mg Tab.subl, 0.4 MG PO UD PRN for CHEST PAIN, (Reported) Ranolazine 1,000 Mg Tab.er.12h, 1,000 MG PO DAILY, (Reported) Sertraline HCl 100 Mg Tablet, 200 MG PO DAILY, (Reported) TAKES 2 (100MG) TABS DAILY Physical Exam-Cardiology Physical Exam Vital Signs/I&O Capillary Refill : Less Than 3 Seconds Data Review Labs A/P-Cardiology Assessment/Admission Diagnosis Chest pain of undetermined etiology Coronary artery disease, last cardiac catheterization was done in September 2014 showing total occlusion of the LAD at its midportion with occluded vein graft to the LAD did not fill with collaterals on this study, patent stent in the proximal LAD to the diagonal artery, mild disease in the circumflex and right coronary artery, prominent left ventricle with EF 45 percent. Repeat cardiac catheterization was done in March [address] Carrion showing total occlusion of the mid LAD and the vein graft to the LAD, patent stent in the proximal LAD that was providing flow to the first diagonal branch, mild disease in the circumflex artery and right coronary artery, the apex of the left ventricular still akinetic with ejection fraction 45-50 percent. Continue with medical therapy. Recurrent chest pain, history of chronic stable angina, maintained on Ranexa Dyspnea, severe oxygen dependency,Followed with Dr. Gray. Peripheral edema-maintained on Lasix, continue to monitor. History of congestive heart failure with left ventricular systolic dysfunction, last echocardiogram showed normal left ventricular systolic function with ejection fraction 55-65 percent with pulmonary hypertension PA pressure of [address] Carrion Peripheral arterial disease, history of stent to the left lower extremity, having pain in his lower extremity, seen and evaluated with heart and vascular care, had angiogram and balloon angioplasty with angioscore cutting balloon 5x40 mm to the left external iliac then stenting to the left external iliac artery with 6x50 Viabahn postdilated with a Brent balloon. Done by Dr. Jackson. Followed by heart and vascular care. COPD, oxygen dependent, multiple recent exacerbation of his underlying COPD., Still actively wheezing, followed by primary care physician and Dr. Gray Hypertension, controlled, continue to monitor blood pressure/heart rate. Hyperlipidemia, I will evaluate lipid profile and metabolic profile Tobaccoism, expressed that he has stopped smoking, encouraged to continue with smoking cessation Carotid stenosis, showing severe right carotid stenosis, 60-79 percent. Mild left carotid stenosis 1-39 percent. Followed and managed by heart and vascular care. Anxiety. Clinical Quality Measures AMI/AHF: ASA po Prior to arrival: Yes MAIRA ABARCA Jun 29, 2020 07:53
[2020-06-29] MEDS ORDERED: ENOXAPARIN 40 MG/0.4 ML (LOVENOX) SYR SC SCH (09:00)
[2020-06-29] MEDS ORDERED: ASPIRIN E.C. 81 MG (ECOTRIN) TAB PO SCH (09:00)
[2020-06-29] MEDS ORDERED: CLOPIDOGREL 75 MG (PLAVIX) TABLET PO SCH (09:00)
[2020-06-29] MEDS: RT-ALBUTEROL/IPRATROPIUM 3 ML (DUONEB) VIAL INH SCH (11:30)
--- NOTE | 2020-06-29 11:31 | Consultation-Cardiology ---
HPI-Cardiology Cardiology Consultation: Date of Consultation 06/29/20 Time Seen by a Provider: 12:00 Date of Admission Attending Physician Mel Nash DO Admitting Physician Judi Zepeda MD Consulting Physician Dr. Emely Gray MD HPI: Chief Complaint: Consult: Chest pain Ethan Dougherty is a 64 y/o male with PMHx of HTN, HLD, CAD, CHF, SC, CABG, multiple stents, COPD (home O2 dependent) and anxiety presents with episode of chest pain onset yesterday (06/28/20). Patient states he was lying down at home when he suddenly felt sharp L sided chest pain rated 8/10 with no radiation and associated dizziness/lightheadedness. Patient denies any palpitations, diaphoresis, numbness, tingling, exacerbation of baseline SOB or kirstie syncope but persistent pain prompted his EMS call. Patient received 4 sublingual NTGs between himself and EMS. Aspirin 324 mg and 5 mg of morphine also given by EMS which provided some relief. Pain reduced to 3/10 by arrival to the ER, s ubsequently reducing to a 0/10 after administration of Morphine 4 mg IV. Patient states total episode of chest pain likely lasted at least 25-30 minutes. Initial and repeat troponin both negative, EKG showed chronic changes but no acute findings. Labs otherwise unremarkable. Patient states he's been taking all of his home medications including Aspirin, Amlodipine, Ranexa, Isosobide mononitrate, Plavix, Lipitor and Coreg. Patient reports no current complaints and feels well. Denies current chest pain, abdominal pain, vomiting, fever, chills, headache, vision changes or rash. He states he has not had any sick contacts and has not travelled outside of the house for some time, though he was having fluctuating nausea for the last two days which prevented him from eating, stating he vomited 3 days ago. Patient has been seen in the [facility] ER for very similar episodes of chest pain in the past of unknown etiology and similarly negative workup. Review of Systems-Cardiology Review of Systems Constitutional: No fever; lightheadedness (resolved) Eyes: No blurred vision, No photophobia, No vision change Ears/Nose/Throat: No epistaxis, No ear pain Respiratory: shortness of breath (at current baseline), wheezing Cardiovascular: chest pain (resolved), edema (mild, pitting), lightheadedness (resolved); No palpitations, No syncope Gastrointestinal: abdomen distended (mild), nausea, poor appetite; No vomiting Musculoskeletal: back pain (chronic); No neck pain Skin: No dryness, No rash Psychiatric/Neurological: No anxiety, No depression, No numbness, No tingling, No focal weakness, No syncope All Other Systems Reviewed Negative Unless Noted: Yes [id number] Hx Patient Social History Smoking Status: Former Smoker Former smoker/When Quit: Aug 21, 2014 2nd Hand Smoke Exposure: Yes Have you traveled recently?: No Alcohol Use?: No Pt feels they are or have been: No Immunizations Up To Date Tetanus Booster (TDap): Unknown Date of Pneumonia Vaccine: Apr 26, 2020 Date of Influenza Vaccine: Apr 26, 2020 Past Medical History PMH As described under Assessment. Family Medical History Family Medical History: Father had SC when he was in his early 50s Family History: Diabetes mellitus 19 MOTHER FH: heart disease 19 FATHER Allergies and Home Medications Allergies Coded Allergies: budesonide (Verified Allergy, Severe, angioedema, 12/06/18) formoterol (Verified Allergy, Severe, angioedema, 12/06/18) tetanus toxoid, adsorbed (Verified Allergy, Mild, hives, 12/06/18) DOROTA Inhibitors (Verified Allergy, Unknown, Angioedema, 12/06/18) Home Medications Albuterol Sulfate 2.5 Mg/3 Ml Vial.neb, 2.5 MG NEB TID PRN for SHORTNESS OF BREATH, (Reported) Albuterol Sulfate 1 Puff Puff, 2 PUFF IH PRN PRN for SHORTNESS OF BREATH, (Reported) Amlodipine Besylate 5 Mg Tablet, 5 MG PO DAILY, (Reported) Aripiprazole 30 Mg Tablet, 30 MG PO DAILY, (Reported) Aspirin 81 Mg Tab.chew, 81 MG PO DAILY, (Reported) Atorvastatin Calcium 80 Mg Tablet, 80 MG PO DAILY, (Reported) Bupropion HCl 75 Mg Tablet, 75 MG PO DAILY, (Reported) Carvedilol 6.25 Mg Tablet, 6.25 MG PO DAILY, (Reported) Clopidogrel Bisulfate 75 Mg Tablet, 75 MG PO DAILY, (Reported) Fish Oil/Dha/Epa 1 Each Capsule, 1 EACH PO DAILY, (Reported) Isosorbide Mononitrate 30 Mg Tab.er.24h, 30 MG PO DAILY, (Reported) Mirtazapine 30 Mg Tablet, 30 MG PO HS, (Reported) Montelukast Sodium 10 Mg Tablet, 10 MG PO DAILY, (Reported) Nitroglycerin 0.4 Mg Tab.subl, 0.4 MG PO UD PRN for CHEST PAIN, (Reported) Ranolazine 1,000 Mg Tab.er.12h, 1,000 MG PO DAILY, (Reported) Sertraline HCl 100 Mg Tablet, 200 MG PO DAILY, (Reported) TAKES 2 (100MG) TABS DAILY Patient Home Medication List Home Medication List Reviewed: Yes Physical Exam-Cardiology Physical Exam Vital Signs/I&O 06/29/20 06/29/20 06/29/20 06/29/20 05:00 05:24 08:00 08:00 Temp 36.4 Pulse 84 84 94 Resp 18 16 B/P (MAP) 115/74 (88) 143/77 (99) Pulse Ox 100 99 99 O2 Delivery Nasal Cannula Nasal Cannula Room Air O2 Flow Rate 5.00 5.00 06/29/20 06/29/20 06/29/20 06/29/20 11:31 12:00 12:50 14:25 Temp 36.5 36.5 Pulse 93 98 98 Resp 18 18 B/P (MAP) 127/60 (82) 127/60 Pulse Ox 100 99 99 O2 Delivery Nasal Cannula Room Air Room Air O2 Flow Rate 5.00 5.00 06/29/20 00:00 Intake Total 200 ml Balance 200 ml Capillary Refill : Less Than 3 Seconds Constitutional: appears stated age, AAO x 3; No apparent distress HEENT: No scleral icterus (R), No scleral icterus (L), No photophobia; hearing is well preserved Neck: No non-tender; full range of motion, normal inspection, carotid pulses are 2 + bilaterally Respiratory: No accessory muscle use, No respiratory distress; chest expansion is symmetric, rhonchi (occasional), wheezing (moderate over all feilds) Cardiovascular: regular rate-rhythm; No extra beats; edema (minor, pitting); No diastolic murmur, No systolic murmur Gastrointestinal: tender (diffusely on palpation), distended (minorly); No pulsatile mass, No organomegaly, No guarding Extremities: normal range of motion, non-tender, normal inspection Neurologic/Psychiatric: no motor/sensory deficits, alert, normal mood/affect; No facial droop Skin: normal color; No damp, No ecchymosis Data Review Labs Laboratory Tests 06/28/20 22:10: White Blood Count 5.6, Red Blood Count 3.43L, Hemoglobin 10.0L, Hematocrit 33L, Mean Corpuscular Volume 97, Mean Corpuscular Hemoglobin 29, Mean Corpuscular Hemoglobin Concent 30L, Red Cell Distribution Width 12.6, Platelet Count 142, Mean Platelet Volume 10.8, Immature Granulocyte % (Auto) 0, Neutrophils (%) (Auto) 62, Lymphocytes (%) (Auto) 26, Monocytes (%) (Auto) 10, Eosinophils (%) (Auto) 2, Basophils (%) (Auto) 0, Neutrophils # (Auto) 3.5, Lymphocytes # (Auto) 1.5, Monocytes # (Auto) 0.5, Eosinophils # (Auto) 0.1, Basophils # (Auto) 0.0, Immature Granulocyte # (Auto) 0.0, Prothrombin Time 13.0, INR Comment 1.0, Activated Partial Thromboplast Time 40H, D-Dimer 0.43, Sodium Level 142, Potassium Level 4.2, Chloride Level 94L, Carbon Dioxide Level 41H, Anion Gap 7, Blood Urea Nitrogen 8, Creatinine 0.85, Estimat Glomerular Filtration Rate > 60, BUN/Creatinine Ratio 9, Glucose Level 112H, Calcium Level 8.9, Corrected Calcium 9.1, Magnesium Level 1.9, Total Bilirubin 0.2, Aspartate Amino Transf (AST/SGOT) 17, Alanine Aminotransferase (ALT/SGPT) 15, Alkaline Phosphatase 103, Myoglobin 37.5, Troponin I < 0.028, C-Reactive Protein High Sensitivity 6.96H, B-Type Natriuretic Peptide 30.6, Total Protein 6.6, Albumin 3.7, Procalcitonin 0.03 06/29/20 05:00: White Blood Count 4.7, Red Blood Count 3.19L, Hemoglobin 9.3L, Hematocrit 32L, Mean Corpuscular Volume 99, Mean Corpuscular Hemoglobin 29, Mean Corpuscular Hemoglobin Concent 29L, Red Cell Distribution Width 12.6, Platelet Count 120L, Mean Platelet Volume 10.5, Immature Granulocyte % (Auto) 0, Neutrophils (%) (Auto) 61, Lymphocytes (%) (Auto) 27, Monocytes (%) (Auto) 10, Eosinophils (%) (Auto) 2, Basophils (%) (Auto) 0, Neutrophils # (Auto) 2.9, Lymphocytes # (Auto) 1.3, Monocytes # (Auto) 0.5, Eosinophils # (Auto) 0.1, Basophils # (Auto) 0.0, Immature Granulocyte # (Auto) 0.0, Sodium Level 141, Potassium Level 4.6, Chloride Level 96L, Carbon Dioxide Level 38H, Anion Gap 7, Blood Urea Nitrogen 7, Creatinine 0.78, Estimat Glomerular Filtration Rate > 60, BUN/Creatinine Ratio 9, Glucose Level 94, Calcium Level 8.5, Corrected Calcium 8.9, Total Bilirubin 0.2, Aspartate Amino Transf (AST/SGOT) 16, Alanine Aminotransferase (ALT/SGPT) 14, Alkaline Phosphatase 93, Troponin I < 0.028, Total Protein 6.1L, Albumin 3.5, Triglycerides Level 39, Cholesterol Level 139, LDL Cholesterol Direct 54, VLDL Cholesterol 8, HDL Cholesterol 68H A/P-Cardiology Assessment/Admission Diagnosis Acute -Chest pain of undetermined etiology -Hx of recurrent chest pain Chronic -CAD -HTN -HLD -COPD, severe oxygen dependency 5L continuous at home -CHF with LV systolic dysfunction -Chronic peripheral edema -Peripheral arterial disease, stent to the LLE, -Carotid stenosis -R ICA stenosis: 60-79 percent. -L ICA stenosis: 1-39 percent -Hx smoking , quit 2 years ago (20+ years/2-3ppd) -Hx Anxiety. 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 Carrion Chronic outpatient management -CAD -Cardiac cath September 2014: -total occlusion of the LAD at its midportion with occluded vein graft to the LAD did not fill with collaterals on this study -patent stent in the proximal LAD to the diagonal artery, -mild disease in the circumflex and right coronary artery, -prominent left ventricle with EF 45 percent. -Cardiac cath March 2018 ([facility]) -total occlusion of the mid LAD and the vein graft to the LAD, -patent stent in the proximal LAD that was providing flow to the first diagonal branch, -mild disease in the circumflex artery and right coronary artery, -the apex of the left ventricular still akinetic with ejection fraction 45-50 percent -HTN -HLD -CHF with LV systolic dysfunction -Chronic peripheral edema -on Lasix -Peripheral arterial disease -Angiogram and balloon angioplasty with angioscore cutting balloon 5x40 mm to the left external iliac -stenting to the left external iliac artery with 6x50 Viabahn postdilated with a Brent balloon. Done by Dr. Jackson. Followed by heart and vascular care. -Carotid stenosis -Followed and managed by heart and vascular care. -Hx smoking , quit 2 years ago (20+ years/2-3ppd) -Hx Anxiety. Other Chronic management -COPD, severe oxygen dependency -followed by Dr. Gray -Anxiety. Clinical Quality Measures AMI/AHF: ASA po Prior to arrival: Yes Physician Assessment Physician Assessment History, physical exam and assessment & plan as noted above No evidence of ACS Risk factor mod reviewed with patient Questions answered Ok to d/c from card standpoint Advised to return to ER in case of recurrent or new symptoms F/u with Dr Carrion regarding cardiac care within a week EBONY MANN MED STUDENT Jun 29, 2020 11:31 EMELY GRAY MD FACP FAC CCDS Jun 29, 2020 16:58
[2020-06-29] MEDS ORDERED: ARIP30TA21 PO (12:49)
[2020-06-29] MEDS ORDERED: RANO10005 PO (12:49)
[2020-06-29] MEDS ORDERED: MONT10TA97 PO (12:49)
[2020-06-29] MEDS ORDERED: FISH1CAP15 PO (12:51)
--- NOTE | 2020-06-29 12:51 | NUR ---
SPOKE WITH THE PT(THERE IS A MED LIST ON HIS CHART), CALLED HIS (OLU) AND WENT THRU THE EXT MED HISTORY TO COMPLETE THE MED REC PT IS PRESCRIBED ABILIFY 30MG + 10MG AND DIRECTED TO TAKE BOTH AT THE SAME TIME FOR A DOSE OF 40MG DAILY. WHEN I SPOKE WITH OLU SHE LET ME KNOW THAT THE PT IS ONLY TAKING THE 30MG DUE TO MEMORY ISSUES WHEN HE TAKES 40MG. CARVEDILOL 6.25 AND RANEXA ER 1000MG BOTH HAVE DIRECTIONS OF 1 TAB BID HOWEVER PT DOES NOT TAKE THE 2ND DOSE. I VERIFIED THIS WITH OLU AND ALSO ASKED IF HE TOOK BOTH DOSES AT ONCE AND SHE TOLD ME "NO, HE ONLY TAKES 1 TAB 1 TIME A DAY EVEN THOUGH IT SAYS TO TAKE MORE" OTC MEDS: FISH OIL ASPIRIN 81MG
--- NOTE | 2020-06-29 13:29 | Discharge Summary ---
Discharge Summary Hospital Course Was the Problem List Reviewed?: Yes Problems/Dx: (1) Chest pain Status: Acute Qualifiers: Qualified Codes: R07.9 - Chest pain, unspecified (2) CAD (coronary artery disease) Status: Chronic Qualifiers: Hospital Course Date of Admission: Jun 29, 2020 at 00:55 Admission Diagnosis: Chest pain Family Physician/Provider: Brandon Zepeda MD Date of Discharge: 06/29/20 Discharge Diagnosis: CAD Hospital Course: Ethan Dougherty is a 64-year-old multi-morbid male who presented with chest pain. He has a long history of coronary artery disease and associated chest pain. His troponin remained normal. His EKG was unremarkable. Cardiology was consulted and assisted with his care. They recommended continued medical management with his antianginal medications. He was discharged home in stable condition. He should follow-up with his primary care physician in about a week. He should follow-up with cardiology as scheduled. Labs and Pending Lab Test: Laboratory Tests 06/28/20 22:10: White Blood Count 5.6, Red Blood Count 3.43L, Hemoglobin 10.0L, Hematocrit 33L, Mean Corpuscular Volume 97, Mean Corpuscular Hemoglobin 29, Mean Corpuscular Hemoglobin Concent 30L, Red Cell Distribution Width 12.6, Platelet Count 142, Mean Platelet Volume 10.8, Immature Granulocyte % (Auto) 0, Neutrophils (%) (Auto) 62, Lymphocytes (%) (Auto) 26, Monocytes (%) (Auto) 10, Eosinophils (%) (Auto) 2, Basophils (%) (Auto) 0, Neutrophils # (Auto) 3.5, Lymphocytes # (Auto) 1.5, Monocytes # (Auto) 0.5, Eosinophils # (Auto) 0.1, Basophils # (Auto) 0.0, Immature Granulocyte # (Auto) 0.0, Prothrombin Time 13.0, INR Comment 1.0, Activated Partial Thromboplast Time 40H, D-Dimer 0.43, Sodium Level 142, Potassium Level 4.2, Chloride Level 94L, Carbon Dioxide Level 41H, Anion Gap 7, Blood Urea Nitrogen 8, Creatinine 0.85, Estimat Glomerular Filtration Rate > 60, BUN/Creatinine Ratio 9, Glucose Level 112H, Calcium Level 8.9, Corrected Calcium 9.1, Magnesium Level 1.9, Total Bilirubin 0.2, Aspartate Amino Transf (AST/SGOT) 17, Alanine Aminotransferase (ALT/SGPT) 15, Alkaline Phosphatase 103, Myoglobin 37.5, Troponin I < 0.028, C-Reactive Protein High Sensitivity 6.96H, B-Type Natriuretic Peptide 30.6, Total Protein 6.6, Albumin 3.7, Procalcitonin 0.03 06/29/20 05:00: White Blood Count 4.7, Red Blood Count 3.19L, Hemoglobin 9.3L, Hematocrit 32L, Mean Corpuscular Volume 99, Mean Corpuscular Hemoglobin 29, Mean Corpuscular Hemoglobin Concent 29L, Red Cell Distribution Width 12.6, Platelet Count 120L, Mean Platelet Volume 10.5, Immature Granulocyte % (Auto) 0, Neutrophils (%) (Au to) 61, Lymphocytes (%) (Auto) 27, Monocytes (%) (Auto) 10, Eosinophils (%) (Auto) 2, Basophils (%) (Auto) 0, Neutrophils # (Auto) 2.9, Lymphocytes # (Auto) 1.3, Monocytes # (Auto) 0.5, Eosinophils # (Auto) 0.1, Basophils # (Auto) 0.0, Immature Granulocyte # (Auto) 0.0, Sodium Level 141, Potassium Level 4.6, Chloride Level 96L, Carbon Dioxide Level 38H, Anion Gap 7, Blood Urea Nitrogen 7, Creatinine 0.78, Estimat Glomerular Filtration Rate > 60, BUN/Creatinine Ratio 9, Glucose Level 94, Calcium Level 8.5, Corrected Calcium 8.9, Total Bilirubin 0.2, Aspartate Amino Transf (AST/SGOT) 16, Alanine Aminotransferase (ALT/SGPT) 14, Alkaline Phosphatase 93, Troponin I < 0.028, Total Protein 6.1L, Albumin 3.5, Triglycerides Level 39, Cholesterol Level 139, LDL Cholesterol Direct 54, VLDL Cholesterol 8, HDL Cholesterol 68H Home Meds Active Reported Fish Oil 1,200 mg Fish Oil (Fish Oil/Dha/Epa) 1 Each Capsule 1 Each PO DAILY Ranolazine ER (Ranolazine) 1,000 Mg Tab.er.12h 1,000 Mg PO DAILY Aripiprazole 30 Mg Tablet 30 Mg PO DAILY Montelukast Sodium 10 Mg Tablet 10 Mg PO DAILY Aspirin 81 Mg Tab.chew 81 Mg PO DAILY Sertraline HCl 100 Mg Tablet 200 Mg PO DAILY TAKES 2 (100MG) TABS DAILY Clopidogrel (Clopidogrel Bisulfate) 75 Mg Tablet 75 Mg PO DAILY Ventolin Hfa (Albuterol Sulfate) 1 Puff Puff 2 Puff IH PRN PRN Atorvastatin Calcium 80 Mg Tablet 80 Mg PO DAILY Mirtazapine 30 Mg Tablet 30 Mg PO HS Amlodipine Besylate 5 Mg Tablet 5 Mg PO DAILY Bupropion HCl 75 Mg Tablet 75 Mg PO DAILY Albuterol Sulfate 2.5 Mg/3 Ml Vial.neb 2.5 Mg NEB TID PRN Carvedilol 6.25 Mg Tablet 6.25 Mg PO DAILY Nitrostat (Nitroglycerin) 0.4 Mg Tab.subl 0.4 Mg PO UD PRN Isosorbide Mononitrate ER (Isosorbide Mononitrate) 30 Mg Tab.er.24h 30 Mg PO DAILY Assessment/Pt Instructions Take medications as prescribed. Follow up with her primary care physician. 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 Return with worsening chest pain or if you feel like you're getting worse. Discharge Planning: <30 minutes discharge planning Discharge Instructions Discharge Diet: Low Sodium Diet Activity as Tolerated: Yes Discharge Physical Examination Vital Signs Vital Signs Date Time Temp Pulse Resp B/P (MAP) Pulse Ox O2 Delivery O2 Flow Rate FiO2 06/29/20 12:00 36.5 93 18 127/60 (82) 99 Room Air 06/29/20 11:31 5.00 06/29/20 03:24 40 General Appearance: No Apparent Distress, Chronically ill HEENT: PERRL/EOMI, Pharynx Normal Respiratory: Lungs Clear, Normal Breath Sounds, No Respiratory Distress Cardiovascular: Regular Rate, Rhythm, No Edema, No Murmur Gastrointestinal: Normal Bowel Sounds, Non Tender, Soft Extremity: Normal Inspection, Non Tender, No Pedal Edema Skin: Normal Color, Warm/Dry Neurologic/Psychiatric: Alert, Oriented x3, No Motor/Sensory Deficits, Normal M ood/Affect Allergies: Coded Allergies: budesonide (Verified Allergy, Severe, angioedema, 12/06/18) formoterol (Verified Allergy, Severe, angioedema, 12/06/18) tetanus toxoid, adsorbed (Verified Allergy, Mild, hives, 12/06/18) DOROTA Inhibitors (Verified Allergy, Unknown, Angioedema, 12/06/18) Copy Copies To 1: BRANDON ZEPEDA MD Discharge Summary Date of Admission Jun 29, 2020 at 00:55 Date of Discharge Discharge Date: Jun 29, 2020 Discharge Time: 13:23 Admission Diagnosis Chest pain Discharge Diagnosis (1) CAD (coronary artery disease) Status: Chronic Qualifiers: Clinical Quality Measures AMI/AHF: ASA po Prior to arrival: Yes ROHIT SAL MD Jun 29, 2020 13:22
--- NOTE | 2020-06-29 13:35 | NUR ---
"RD ASSESSMENT PMHx: COPD; CAD; hypercholesterolemia; HTN; stroke; GERD; PT INTERACTION: Pt was awake and pleasant during nutrition consult for MST score. Pt states current appetite is poor. Note no meals have been recorded as pt was NPO, per chart review. Pt states following a regular diet at home, and has no issues with chewing/swallowing food. Pt states recent issues with nausea, and that his last BM was 06/27. Note pt not currently on bowel regimen per chart review. Pt states no recent wt changes. Note recent 8# wt loss x5mon, per chart review. Upon visual assessment, pt appears to be adequately nourished with no visible signs of muscle/fat wasting and a BMI of 28.7 (Overweight BMI for age). While current PO intake is poor, given wt hx and visual assessment, pt does not meet criteria for malnutrition per ASPEN guidelines. Est. kcal needs: [id number] kcal | 20-25 kcal/kg Est. Pro needs: 69-86 g Pro | 0.8-1.0 g Pro/kg PES STATEMENT: Inadequate oral intake (NI-2.1) related to loss of appetite, and nausea, as evidenced by pt interview. INTERVENTION: Continue with current diet order of Heart Healthy diet. Encouraged pt to eat when able. Will continue to follow and reassess as pt needs, intake, and status change. Enid CHÁVEZ MS RD LD [phone] cell"
--- NOTE | 2020-06-29 14:22 | NUR ---
PATIENT WANTS TO MAKE HIS OWN FOLLOW-UP APPOINTMENTS. HIS LAST ON WITH DR CASTILLO WAS OVER THE PHONE AND HE SEES DR FERNANDEZ NOW
== END 2020-06-29 13:12 | disposition home or self-care (01) ==
LOC: EDUNIT# 22:08 → ER 22:10 → 4TH 22:11 → UNDOADMOB 06-29 00:55 → 4TH 06-29 00:55 → UNDODISOB 06-29 14:25
PROVIDERS: ADMIT Internal Medicine; ATTEND Internal Medicine
DX: I25.10 Atherosclerotic heart disease of native coronary artery without angina pectoris (principal); I65.23 Occlusion and stenosis of bilateral carotid arteries; I10 Essential (primary) hypertension; E78.5 Hyperlipidemia, unspecified; J44.9 Chronic obstructive pulmonary disease, unspecified; I73.9 Peripheral vascular disease, unspecified; F41.9 Anxiety disorder, unspecified; E78.00 Pure hypercholesterolemia, unspecified; M19.90 Unspecified osteoarthritis, unspecified site; G89.29 Other chronic pain; M54.5 Low back pain; K21.9 Gastro-esophageal reflux disease without esophagitis; F32.9 Major depressive disorder, single episode, unspecified; Z79.82 Long term (current) use of aspirin; Z79.51 Long term (current) use of inhaled steroids; Z79.899 Other long term (current) drug therapy; Z88.8 Allergy status to other drugs, medicaments and biological substances; Z88.7 Allergy status to serum and vaccine; Z87.891 Personal history of nicotine dependence
CPT/HCPCS: 71045; 80053 ×2; 80061; 83735; 83874; 83880; 84145; 84484 ×2; 85025 ×2; 85379; 85610; 85730; 86141; 93005 ×2; 93041; 93306; 94640; 96361; 96374; 99284; G0378; 36415

== ENCOUNTER 2020-10-10 20:37 | Observation (INO) | payer MEDICARE, MEDICAID ==
[~2020-10-10] VITALS: Ht 172.7 cm; Wt 86.2 kg
[~2020-10-10 20:37] MED LIST changes: -ISOS30TA3 PO; +ISOS30TA82 PO; -LISI-556 PO; +LISI-729 PO; -LISI10TA2 PO; +LISI10TA25 PO; +MONT10TA32 PO; -MONT10TA97 PO; +ONDANSETRON 4 MG/2 ML (SDV) Z0FRAN ONE; +RANO10005 PO; +SERT-414 PO; -SERT100T8 PO; +fentaNYL INJ 100 MCG/2 ML AMP ONE
[2020-10-10] MEDS ORDERED: fentaNYL INJ 100 MCG/2 ML AMP IVP ONE (21:00)
[2020-10-10] MEDS ORDERED: ONDANSETRON 4 MG/2 ML (SDV) Z0FRAN IVP ONE (21:00)
[2020-10-10 21:08] LABS: BASOPHILS % (AUTO) 0 % (0-10); EOSINOPHILS # (AUTO) 0.1 10^3/uL (0.0-0.3); MEAN CORPUSCULAR HGB CONC 29 g/dL (32-36)
[2020-10-10 21:09] LABS: EOSINOPHILS % (AUTO) 2 % (0-10); HEMATOCRIT 33 % (40-54); HEMOGLOBIN 9.5 g/dL (13.3-17.7); LYMPHOCYTES # (AUTO) 1.5 10^3/uL (1.0-4.0); LYMPHOCYTES % (AUTO) 31 % (12-44); MEAN CORPUSCULAR HEMOGLOBIN 29 pg (25-34); MEAN CORPUSCULAR VOLUME 100 fL (80-99); MEAN PLATELET VOLUME 10.9 fL (9.0-12.2); MONOCYTES # (AUTO) 0.5 10^3/uL (0.0-1.0); MONOCYTES % (AUTO) 10 % (0-12); NEUTROPHILS # (AUTO) 2.7 10^3/uL (1.8-7.8); NEUTROPHILS % (AUTO) 57 % (42-75); PLATELET COUNT 122 10^3/uL (130-400); WHITE BLOOD COUNT 4.7 10^3/uL (4.3-11.0)
[2020-10-10 21:14] LABS: INR 0.9 (0.8-1.4); PROTHROMBIN TIME PATIENT 12.5 SEC (12.2-14.7)
--- NOTE | 2020-10-10 21:15 | Diagnostic Imaging Report ---
INDICATION: Chest pain Frontal chest obtained at 09:03 p.m. and compared to 06/28/2020. There is poststernotomy change. The heart is borderline enlarged. There is unchanged elevation of the right hemidiaphragm. There is no focal infiltrate or pneumothorax or pleural fluid. IMPRESSION: Postop changes with mild cardiomegaly and unchanged elevation of the right hemidiaphragm. No focal infiltrate or pleural fluid. Dictated by: Dictated on workstation # [id number]
[2020-10-10 21:22] LABS: ALBUMIN 3.8 GM/DL (3.2-4.5); CHLORIDE 93 MMOL/L (98-107); POTASSIUM 4.3 MMOL/L (3.6-5.0); SODIUM 143 MMOL/L (135-145)
[2020-10-10 21:23] LABS: CALCIUM 8.9 MG/DL (8.5-10.1)
[2020-10-10 21:24] LABS: GLUCOSE 103 MG/DL (70-105)
[2020-10-10 21:25] LABS: TOTAL PROTEIN 6.7 GM/DL (6.4-8.2)
[2020-10-10 21:26] LABS: BILIRUBIN,TOTAL 0.3 MG/DL (0.1-1.0); CARBON DIOXIDE 44 MMOL/L (21-32)
[2020-10-10 21:28] LABS: ALKALINE PHOSPHATASE 105 U/L (40-136); CREATININE SERUM 0.86 MG/DL (0.60-1.30); GFR ESTIMATED > 60
[2020-10-10 21:29] LABS: BUN/CREATININE RATIO 10
[2020-10-10 21:31] LABS: ALANINE AMINOTRANSFERASE 22 U/L (0-55); MAGNESIUM 1.8 MG/DL (1.6-2.4)
[2020-10-10 21:48] LABS: FIBRIN DEGRADATION PRODUCTS 0.61 UG/ML (0.00-0.49)
[2020-10-10] MEDS: RT-ALBUTEROL INHALER HFA (VENTOLIN HFA) 18 GM IH ONE ×2 (23:38→23:41)
[2020-10-11] MEDS ORDERED: HOLD METFORMIN - RECEIVED CONTRAST 20 ML VIAL IV SCH (00:30)
[2020-10-11] MEDS ORDERED: IOHEXOL 350 MG/ML 100 ML (OMNIPAQUE 350) VIAL IV ONE (00:30)
[2020-10-11] MEDS ORDERED: NS 100 ML (IVPB) BAG IV ONE (00:30)
[2020-10-11] MEDS ORDERED: NITROGLYCERIN 2% OINT 1 GM UNIT DOSE PACKET TOP ONE (01:15)
--- NOTE | 2020-10-11 01:54 | ED Chest Pain ---
General Chief Complaint: Chest Pain Stated Complaint: CP Nursing Triage Note: PT TO ROOM 7 [facility]IA [facility] W/ CO CP THAT STARTED AT 1830 TODAY THAT IS "MIDSTERNAL AND RADIATES TO HIS LEFT ARM." PT STATES HE TOOK 2 NITROGLYCERIN TABLETS AT HOME. [facility] ADMINISTERED 3 NITROGLYCERIN AND 4 BABY ASA. Nursing Sepsis Screen: No Definite Risk Source: patient, old records Exam Limitations: no limitations History of Present Illness Date Seen by Provider: October 10, 2020 Time Seen by Provider: 20:38 Initial Comments This 65-year-old gentleman with known coronary artery disease presents to the emergency room with central chest pain. He was given aspirin and nitroglycerin x3 by EMS. This did not seem to improve his pain. He is also wheezing. He continuously uses oxygen at 5 L/min at home and he seems stable on this flow rate at present. Allergies and Home Medications Allergies Coded Allergies: budesonide (Verified Allergy, Severe, angioedema, 12/06/18) formoterol (Verified Allergy, Severe, angioedema, 12/06/18) tetanus toxoid, adsorbed (Verified Allergy, Mild, hives, 12/06/18) DOROTA Inhibitors (Verified Allergy, Unknown, Angioedema, 12/06/18) Home Medications Albuterol Sulfate 2.5 Mg/3 Ml Vial.neb, 2.5 MG NEB TID PRN for SHORTNESS OF BREATH, (Reported) Albuterol Sulfate 1 Puff Puff, 2 PUFF IH PRN PRN for SHORTNESS OF BREATH, (Reported) Amlodipine Besylate 5 Mg Tablet, 5 MG PO DAILY, (Reported) Aripiprazole 30 Mg Tablet, 30 MG PO DAILY, (Reported) Aspirin 81 Mg Tab.chew, 81 MG PO DAILY, (Reported) Atorvastatin Calcium 80 Mg Tablet, 80 MG PO DAILY, (Reported) Bupropion HCl 75 Mg Tablet, 75 MG PO DAILY, (Reported) Carvedilol 6.25 Mg Tablet, 6.25 MG PO DAILY, (Reported) Clopidogrel Bisulfate 75 Mg Tablet, 75 MG PO DAILY, (Reported) Fish Oil/Dha/Epa 1 Each Capsule, 1 EACH PO DAILY, (Reported) Isosorbide Mononitrate 30 Mg Tab.er.24h, 30 MG PO DAILY, (Reported) Mirtazapine 30 Mg Tablet, 30 MG PO HS, (Reported) Montelukast Sodium 10 Mg Tablet, 10 MG PO DAILY, (Reported) Nitroglycerin 0.4 Mg Tab.subl, 0.4 MG PO UD PRN for CHEST PAIN, (Reported) Ranolazine 1,000 Mg Tab.er.12h, 1,000 MG PO DAILY, (Reported) Sertraline HCl 100 Mg Tablet, 200 MG PO DAILY, (Reported) TAKES 2 (100MG) TABS DAILY Patient Home Medication List Home Medication List Reviewed: Yes Review of Systems Review of Systems Constitutional: no symptoms reported EENTM: No Symptoms Reported Respiratory: See HPI Cardiovascular: See HPI Gastrointestinal: No Symptoms Reported Genitourinary: No Symptoms Reported Musculoskeletal: no symptoms reported Skin: no symptoms reported Psychiatric/Neurological: No Symptoms Reported Endocrine: No Symptoms Reported Hematologic/Lymphatic: No Symptoms Reported Past [id number]-Elfcfc Hx Past Med/Social Hx: Reviewed Nursing Past Med/Soc Hx Patient Social History Alcohol Use: Denies Use Smoking Status: Former Smoker Type Used: Cigarettes Former Smoker, Quit: Dec 16, 2017 2nd Hand Smoke Exposure: Yes Recent Infectious Disease Expo: No Recent Hopitalizations: No Immunizations Up To Date Tetanus Booster (TDap): Unknown PED Vaccines UTD: No Date of Pneumonia Vaccine: Apr 26, 2020 Date of Influenza Vaccine: Apr 26, 2020 Seasonal Allergies Seasonal Allergies: No Past Medical History Surgeries: Yes Abdominal, Cardiac, CABG, Coronary Stent, Tonsillectomy, Vascular Surgery Respiratory: Yes (WEARS O2 AT 5L/NC CONTINUOUSLY. RUL PULMONARY NODULE) Pneumonia, Chronic Bronchitis, COPD Currently Using CPAP: No Currently Using BIPAP: No Cardiac: Yes (STENT X1/ANGIO L EXT ILIAC ART;CABG/STENT X4;CAROTID DZ;CHF;CARDIAC ARREST) Coronary Artery Disease, Deep Vein Thrombosis, Heart Attack, High Cholesterol, Hypertension, Peripheral Vascular Neurological: Yes Stroke Reproductive Disorders: No Sexually Transmitted Disease: No HIV/AIDS: No Genitourinary: No Gastrointestinal: Yes Gastroesophageal Reflux, Ulcer Musculoskeletal: Yes Arthritis, Chronic Back Pain Endocrine: No HEENT: No Loss of Vision: Denies Hearing Impairment: Denies Cancer: No Psychosocial: Yes Sleep Difficulties, Anxiety, Schizophrenia, Depression Integumentary: No Blood Disorders: No Adverse Reaction/Blood Tranf: No Family Medical History Diabetes mellitus 19 MOTHER FH: heart disease 19 FATHER Heart Disease, Diabetes SOCIAL HX: -HX OF ALCOHOL ABUSE--CLAIMS HE QUIT YEARS AGO -DENIES DRUG USE -SMOKED 1 1/2 PPD--QUIT 2017 PSH: -CABG--1 VESSEL BYPASS -CARDIAC CATHS AND STENTS X 4, WITH ANGIOPLASTIES--LAST CARDIAC CATH 03/2018--PATENT STENT TO PROXIMAL LAD TO FIRST DIAGONAL, COMPLETE OCCLUSION OF MID LAD AND TO VEIN GRAFT TO LAD; EF 45-50%--NO INTERVENTION DONE AT THAT TIME AND FINDINGS WERE THE SAME THOSE FOUND ON CARDIAC CATH IN 2014 -ANGIOPLASTY AND STENT X 1 TO LEFT LEG/EXTERNAL ILIAC ARTERY 02/2017 -RIGHT INGUINAL HERNIA REPAIR -TONSILLECTOMY ADDITIONAL PMH: -HX OF CARDIAC ARREST -CAROTID DISEASE--SEVERE ON RIGHT -RBBB ; LAFB Physical Exam Vital Signs Vital Signs - First Documented Capillary Refill : Less Than 3 Seconds Height, Weight, BMI Height: 5'8.00" Weight: 174lbs. 0.0oz. 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-XII Norm as Tested Skin: Normal Color, Warm/Dry Progress/Results/Core Measures Results/Orders Lab Results Laboratory Tests Test 10/10/20 20:19 10/10/20 22:32 Range/Units White Blood Count 4.7 4.3-11.0 10^3/uL Red Blood Count 3.31 L 4.30-5.52 10^6/uL Hemoglobin 9.5 L 13.3-17.7 g/dL Hematocrit 33 L 40-54 % Mean Corpuscular Volume 100 H 80-99 fL Mean Corpuscular Hemoglobin 29 25-34 pg Mean Corpuscular Hemoglobin Concent 29 L 32-36 g/dL Red Cell Distribution Width 12.9 10.0-14.5 % Platelet Count 122 L 130-400 10^3/uL Mean Platelet Volume 10.9 9.0-12.2 fL Immature Granulocyte % (Auto) 0 % Neutrophils (%) (Auto) 57 42-75 % Lymphocytes (%) (Auto) 31 12-44 % Monocytes (%) (Auto) 10 0-12 % Eosinophils (%) (Auto) 2 0-10 % Basophils (%) (Auto) 0 0-10 % Neutrophils # (Auto) 2.7 1.8-7.8 10^3/uL Lymphocytes # (Auto) 1.5 1.0-4.0 10^3/uL Monocytes # (Auto) 0.5 0.0-1.0 10^3/uL Eosinophils # (Auto) 0.1 0.0-0.3 10^3/uL Basophils # (Auto) 0.0 0.0-0.1 10^3/uL Immature Granulocyte # (Auto) 0.0 0.0-0.1 10^3/uL Prothrombin Time 12.5 12.2-14.7 SEC INR Comment 0.9 0.8-1.4 Activated Partial Thromboplast Time 35 24-35 SEC D-Dimer 0.61 H 0.00-0.49 UG/ML Sodium Level 143 135-145 MMOL/L Potassium Level 4.3 3.6-5.0 MMOL/L Chloride Level 93 L 98-107 MMOL/L Carbon Dioxide Level 44 H 21-32 MMOL/L Anion Gap 6 5-14 MMOL/L Blood Urea Nitrogen 9 7-18 MG/DL Creatinine 0.86 0.60-1.30 MG/DL Estimat Glomerular Filtration Rate > 60 BUN/Creatinine Ratio 10 Glucose Level 103 70-105 MG/DL Calcium Level 8.9 8.5-10.1 MG/DL Corrected Calcium 9.1 8.5-10.1 MG/DL Magnesium Level 1.8 1.6-2.4 MG/DL Total Bilirubin 0.3 0.1-1.0 MG/DL Aspartate Amino Transf (AST/SGOT) 22 5-34 U/L Alanine Aminotransferase (ALT/SGPT) 22 0-55 U/L Alkaline Phosphatase 105 40-136 U/L Myoglobin 35.9 10.0-92.0 NG/ML Troponin I < 0.028 < 0.028 <0.028 NG/ML Total Protein 6.7 6.4-8.2 GM/DL Albumin 3.8 3.2-4.5 GM/DL My Orders Orders - IRIS NELSON MD Ondansetron Injection (Zofran Injectio (10/10/20 20:34) Fentanyl Inj (Sublimaze Injection) (10/10/20 20:34) Cbc With Automated Diff (10/10/20 20:50) Magnesium (10/10/20 20:50) Chest 1 View, Ap/Pa Only (10/10/20 20:50) Ekg Tracing (10/10/20 20:50) Comprehensive Metabolic Panel (10/10/20 20:50) Myoglobin Serum (10/10/20 20:50) Protime With Inr (10/10/20 20:50) Partial Thromboplastin Time (10/10/20 20:50) O2 (10/10/20 20:50) Monitor-Rhythm Ecg Trace Only (10/10/20 20:50) Ed Iv/Invasive Line Start (10/10/20 20:50) Troponin I (10/10/20 20:50) Fentanyl Inj (Sublimaze Injection) (10/10/20 21:00) Ondansetron Injection (Zofran Injectio (10/10/20 21:00) Troponin I (10/10/20 22:30) Fibrin Degradation Products (10/10/20 20:19) Albuterol Inhaler (Ventolin Hfa) (10/10/20 22:00) Ct Angio Chest W (10/10/20 ) Iohexol Injection (Omnipaque 350 Mg/Ml 1 (10/11/20 00:30) Received Contrast (Hold Metformin- Contr (10/11/20 00:30) Ns (Ivpb) (Sodium Chloride 0.9% Ivpb Bag (10/11/20 00:30) Nitroglycerin Ointment (Nitrobid Ointme (10/11/20 01:15) Medications Given in ED Current Medications Medications Dose Ordered Sig/Shira Route Start Time Stop Time Status Last Admin Dose Admin Albuterol Sulfate 4 puffs ONCE ONCE IH 10/10/20 22:00 10/10/20 22:01 DC 10/10/20 23:41 1 GM Fentanyl Citrate 50 mcg ONCE ONCE IVP 10/10/20 21:00 10/10/20 21:01 DC 10/10/20 20:57 50 MCG Iohexol 100 ml ONCE ONCE IV 10/11/20 00:30 10/11/20 00:39 DC 10/11/20 00:20 100 ML Nitroglycerin 1 inch ONCE ONCE TOP 10/11/20 01:15 10/11/20 01:16 DC 10/11/20 01:23 1 INCH Ondansetron HCl 8 mg ONCE ONCE IVP 10/10/20 21:00 10/10/20 21:01 DC 10/10/20 20:56 8 MG Sodium Chloride 80 ml ONCE ONCE IV 10/11/20 00:30 10/11/20 00:39 DC 10/11/20 00:20 80 ML Vital Signs/I&O 10/10/20 10/10/20 10/10/20 20:39 20:39 20:39 Temp 36.7 Pulse 73 Resp 23 B/P (MAP) 130/74 (92) Pulse Ox 98 O2 Delivery Nasal Cannula Nasal Cannula Nasal Cannula O2 Flow Rate 5.00 5.00 5.00 Blood Pressure Mean: 92 Progress Progress Note : Time: 01:51 Progress Note Patient's pain eventually dissipated but then rebounded again. He was given nitro paste and pain began to trend down again. Repeat troponin was negative. Case was discussed with Dr. Gray who agreed with admission. CT angiogram was obtained due to elevated troponin. No pulmonary emboli were noted. Initial ECG Impression Date: October 10, 2020 Initial ECG Impression Time: 20:41 Initial ECG Rate: 75 Initial ECG Rhythm: Normal Sinus Comment Sinus rhythm with no ST elevation or depression. No abnormal intervals or axis deviation Diagnostic Imaging Diagonstic Imaging: Xray Plain Films/CT/US/NM/MRI: chest Comments NAME: WINTER PIEDRA [facility] REC#: [id number] PT STATUS: REG ER : 1955 PHYSICIAN: IRIS NELSON MD ADMIT DATE: 10/10/20/ER Signed Date of Exam:10/10/20 CHEST 1 VIEW, AP/PA ONLY INDICATION: Chest pain Frontal chest obtained at 09:03 p.m. and compared to 06/28/2020. There is poststernotomy change. The heart is borderline enlarged. There is unchanged elevation of the right hemidiaphragm. There is no focal infiltrate or pneumothorax or pleural fluid. IMPRESSION: Postop changes with mild cardiomegaly and unchanged elevation of the right hemidiaphragm. No focal infiltrate or pleural fluid. Dictated by: Dictated on workstation # [id number] Dict: 10/10/202108 Trans: 10/10/202135 [facility] [id number] Interpreted by: AMRIT CASTELLON MD Electronically signed by: AMRIT CASTELLON MD 10/10/202135 Departure Communication (Admissions) Time/Spoke to Admitting Phy: 01:20 Dr. Gaspar Time/Spoke to Consulting Phy: 01:15 Dr. Gray Impression Primary Impression: Chest pain Additional Impression: CAD (coronary artery disease) Qualified Codes: I25.10 - Atherosclerotic heart disease of [place] coronary artery without angina pectoris Disposition: ADMITTED INPATIENT Condition: Improved Admissions Decision to Admit Reason: Admit from ER (General) Decision to Admit/Date: October 11, 2020 Time/Decision to Admit Time: 01:15 Departure-Patient Inst. Referrals: BRANDON RODAS MD (PCP/Family) Primary Care Physician IRIS NELSON MD October 11, 2020 01:54
[2020-10-11 03:10] VITALS: BP 147/76
[2020-10-11] MEDS ORDERED: ONDANSETRON 4 MG/2 ML (SDV) Z0FRAN IV PRN (03:15)
[2020-10-11 03:19] VITALS: BP 130/74
[2020-10-11 03:30] VITALS: BP 136/74
[2020-10-11] MEDS ORDERED: RT-ALBUTEROL/IPRATROPIUM 3 ML (DUONEB) VIAL INH PRN (03:30)
[2020-10-11] MEDS ORDERED: morphine INJ 4 MG/ML 1 ML (VIAL/SYRINGE) IV PRN (03:30)
[2020-10-11 03:45] VITALS: BP 134/70
[2020-10-11 04:00] VITALS: BP 118/62
[2020-10-11 04:28] LABS: BASOPHILS % (AUTO) 0 % (0-10); EOSINOPHILS # (AUTO) 0.1 10^3/uL (0.0-0.3); EOSINOPHILS % (AUTO) 2 % (0-10); HEMATOCRIT 33 % (40-54); HEMOGLOBIN 9.6 g/dL (13.3-17.7); LYMPHOCYTES # (AUTO) 1.4 10^3/uL (1.0-4.0); LYMPHOCYTES % (AUTO) 30 % (12-44); MEAN CORPUSCULAR HEMOGLOBIN 29 pg (25-34); MEAN CORPUSCULAR HGB CONC 29 g/dL (32-36); MEAN CORPUSCULAR VOLUME 99 fL (80-99); MEAN PLATELET VOLUME 10.8 fL (9.0-12.2); MONOCYTES # (AUTO) 0.5 10^3/uL (0.0-1.0); MONOCYTES % (AUTO) 10 % (0-12); NEUTROPHILS # (AUTO) 2.7 10^3/uL (1.8-7.8); NEUTROPHILS % (AUTO) 58 % (42-75); PLATELET COUNT 110 10^3/uL (130-400); WHITE BLOOD COUNT 4.6 10^3/uL (4.3-11.0)
[2020-10-11 04:48] LABS: CHLORIDE 93 MMOL/L (98-107); POTASSIUM 3.9 MMOL/L (3.6-5.0); SODIUM 143 MMOL/L (135-145)
[2020-10-11 04:50] LABS: GLUCOSE 125 MG/DL (70-105); TRIGLYCERIDES 45 MG/DL (<150); VLDL CHOLESTEROL 9 MG/DL (5-40)
[2020-10-11 04:51] LABS: CARBON DIOXIDE 44 MMOL/L (21-32)
[2020-10-11 04:53] LABS: CREATININE SERUM 0.82 MG/DL (0.60-1.30); GFR ESTIMATED > 60
[2020-10-11 04:55] LABS: BUN/CREATININE RATIO 9; CHOLESTEROL 156 MG/DL (< 200)
[2020-10-11 04:56] LABS: HDL CHOLESTEROL 71 MG/DL (40-60)
--- NOTE | 2020-10-11 06:24 | Diagnostic Imaging Report ---
PROCEDURE: CT angiography of the chest with contrast. TECHNIQUE: Multiple contiguous axial images were obtained through the chest after uneventful bolus administration of intravenous contrast. 3D reconstructed CTA MIP acquisitions were also performed. Auto Exposure Controls were utilized during the CT exam to meet ALARA standards for radiation dose reduction. INDICATION: Chest pain. Comparison with 05/31/2019. FINDINGS: The lungs are well-aerated. There is mild atelectasis in the right lung base. Lungs are otherwise clear. There is good opacification of aorta and pulmonary arteries. No filling defects are seen to indicate pulmonary emboli. Aorta shows postsurgical changes from coronary bypass. Aortic root measures 3.7 cm. No evidence of aortic dissection. No mediastinal or hilar adenopathy. No pleural effusions or pericardial effusion. IMPRESSION: No evidence of pulmonary emboli. These findings are concordant with the preliminary report. Dictated by: Dictated on workstation # [id number]
[2020-10-11] MEDS ORDERED: RT-ALBUTEROL/IPRATROPIUM 3 ML (DUONEB) VIAL INH SCH (07:00)
[2020-10-11] MEDS ORDERED: PANTOPRAZOLE 40 MG (PROTONIX) TAB PO SCH (07:00)
[2020-10-11 08:13] VITALS: BP 118/72
--- NOTE | 2020-10-11 08:13 | Consultation-Cardiology ---
HPI-Cardiology Cardiology Consultation Date of Consultation 10/11/20 Date of Admission Time Seen by Provider: 08:20 Indication: Chest pain HPI Patient is a 65 y/o male with history of CAD, chronic stable angina, COPD. Presented to the ER with complaints of substernal chest pain, onset yesterday evening while sitting in chair. Patient reports took Nitro x 2 without relief of symptoms. States pain lasted for approx 30min and resolved while in ER. Denies any further episode of chest pain. Denies any increased dyspnea, dizziness or lightheadedness. Home Medications & Allergies Allergies: Coded Allergies: budesonide (Verified Allergy, Severe, angioedema, 12/06/18) formoterol (Verified Allergy, Severe, angioedema, 12/06/18) tetanus toxoid, adsorbed (Verified Allergy, Mild, hives, 12/06/18) DOROTA Inhibitors (Verified Allergy, Unknown, Angioedema, 12/06/18) Home Medication List Reviewed: Yes ZIK-Jqlluf-Jkmsbv Hx Patient Social History Marital Status: single Recreational Drug Use: No Smoking Status: Former Smoker Former smoker/When Quit: Aug 21, 2014 Type Used: Cigarettes 2nd Hand Smoke Exposure: Yes Recent Hopitalizations: No Immunizations Up To Date Tetanus Booster (TDap): Unknown Date of Pneumonia Vaccine: Apr 26, 2020 Date of Influenza Vaccine: Apr 26, 2020 Past Medical History CAD, CHF Family Medical History Significant Family History: No Pertinent Family Hx, Heart Disease, Diabetes Family History: Diabetes mellitus 19 MOTHER FH: heart disease 19 FATHER Review of Systems-General Review of Systems Constitutional: no symptoms reported, see HPI; No fever, No malaise EENTM: see HPI, no symptoms reported; No blurred vision, No double vision Respiratory: see HPI; No cough; dyspnea on exertion Cardiovascular: see HPI, chest pain; No edema; Hx of Intervention; No palpitations, No syncope Gastrointestinal: No abdominal pain, No constipation Genitourinary: no symptoms reported; No dysuria Musculoskeletal: no symptoms reported Reviewed Test Results Reviewed Test Results Lab Laboratory Tests 10/10/20 20:19: White Blood Count 4.7, Red Blood Count 3.31L, Hemoglobin 9.5L, Hematocrit 33L, Mean Corpuscular Volume 100H, Mean Corpuscular Hemoglobin 29, Mean Corpuscular Hemoglobin Concent 29L, Red Cell Distribution Width 12.9, Platelet Count 122L, Mean Platelet Volume 10.9, Immature Granulocyte % (Auto) 0, Neutrophils (%) (Auto) 57, Lymphocytes (%) (Auto) 31, Monocytes (%) (Auto) 10, Eosinophils (%) (Auto) 2, Basophils (%) (Auto) 0, Neutrophils # (Auto) 2.7, Lymphocytes # (Auto) 1.5, Monocytes # (Auto) 0.5, Eosinophils # (Auto) 0.1, Basophils # (Auto) 0.0, Immature Granulocyte # (Auto) 0.0, Prothrombin Time 12.5, INR Comment 0.9, Activated Partial Thromboplast Time 35, D-Dimer 0.61H, Sodium Level 143, Potassium Level 4.3, Chloride Level 93L, Carbon Dioxide Level 44H, Anion Gap 6, Blood Urea Nitrogen 9, Creatinine 0.86, Estimat Glomerular Filtration Rate > 60, BUN/Creatinine Ratio 10, Glucose Level 103, Calcium Level 8.9, Corrected Calcium 9.1, Magnesium Level 1.8, Total Bilirubin 0.3, Aspartate Amino Transf (AST/SGOT) 22, Alanine Aminotransferase (ALT/SGPT) 22, Alkaline Phosphatase 105, Myoglobin 35.9, Troponin I < 0.028, Total Protein 6.7, Albumin 3.8 10/10/20 22:32: Troponin I < 0.028 10/11/20 04:23: White Blood Count 4.6, Red Blood Count 3.35L, Hemoglobin 9.6L, Hematocrit 33L, Mean Corpuscular Volume 99, Mean Corpuscular Hemoglobin 29, Mean Corpuscular Hemoglobin Concent 29L, Red Cell Distribution Width 12.9, Platelet Count 110L, Mean Platelet Volume 10.8, Immature Granulocyte % (Auto) 0, Neutrophils (%) (Auto) 58, Lymphocytes (%) (Auto) 30, Monocytes (%) (Auto) 10, Eosinophils (%) (Auto) 2, Basophils (%) (Auto) 0, Neutrophils # (Auto) 2.7, Lymphocytes # (Auto) 1.4, Monocytes # (Auto) 0.5, Eosinophils # (Auto) 0.1, Basophils # (Auto) 0.0, Immature Granulocyte # (Auto) 0.0, Sodium Level 143, Potassium Level 3.9, Chloride Level 93L, Carbon Dioxide Level 44H, Anion Gap 6, Blood Urea Nitrogen 7, Creatinine 0.82, Estimat Glomerular Filtration Rate > 60, BUN/Creatinine Ratio 9, Glucose Level 125H, Calcium Level 9.0, Triglycerides Level 45, Cholesterol Level 156, LDL Cholesterol Direct 67, VLDL Cholesterol 9, HDL Cholesterol 71H ECG Impression ECG Initial ECG Rhythm: Normal Sinus Physical Exam Physical Exam Vital Signs Vital Signs - First Documented 10/11/20 07:59 FiO2 5 Capillary Refill : Less Than 3 Seconds Height, Weight, BMI Height: 5'8.00" Weight: 174lbs. 0.0oz. 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 EKG reveals no acute ST changes, cardiac enzymes negative. Will consider stress test as an outpatient Coronary artery disease, cardiac catheterization was done in September 2014 showing total occlusion of the LAD at its midportion with occluded vein graft to the LAD did not fill with collaterals on this study, patent stent in the proximal LAD to the diagonal artery, mild disease in the circumflex and right coronary artery, prominent left ventricle with EF 45 percent. Repeat cardiac catheterization was done in March 2018 showing total occlusion of the mid LAD and the vein graft to the LAD, patent stent in the proximal LAD that was providing flow to the first diagonal branch, mild disease in the circumflex artery and right coronary artery, the apex of the left ventricular still akinetic with ejection fraction 45-50 percent. Continue with medical therapy. History of congestive heart failure with left ventricular systolic dysfunction, last echocardiogram Jun 2020 showed normal left ventricular systolic function with ejection fraction 55-65 percent with PA pressure of 30-35 mmHg. COPD, management per Dr. Gray Peripheral arterial disease, history of stent to the left lower extremity, having pain in his lower extremity, seen and evaluated with heart and vascular care, had angiogram and balloon angioplasty with angioscore cutting balloon 5x40 mm to the left external iliac then stenting to the left external iliac artery with 6x50 Viabahn postdilated with a Brent balloon. Done by Dr. Jackson. Followed by heart and vascular care. Hypertension, continue to monitor. Hyperlipidemia, monitor lipids Tobaccoism, expressed that he has stopped smoking, encouraged to continue with smoking cessation Carotid stenosis, showing severe right carotid stenosis, 60-79 percent. Mild left carotid stenosis 1-39 percent. Followed and managed by heart and vascular care. Anxiety. Thank you for allowing us to participate in the management of Mr. Dougherty, this is Carmen Juarez PA-C, as a scribe for Dr. Carrion Patient was seen and evaluated with Carmen, has been doing well. Feeling better today No further episodes of chest pain Troponin level continue to be normal EKG did not show any acute changes Discussed the management plan recommended conservative management, continue to monitor as an outpatient Arrange for follow-up as an outpatient Okay for discharge from cardiology standpoint and monitor blood pressure and lipids Clinical Quality Measures AMI/AHF: ASA po Prior to arrival: Yes CARMEN FAJARDO October 11, 2020 8:13 am JOSHUA CARRION MD October 11, 2020 10:04 am
--- NOTE | 2020-10-11 08:26 | Pulmonary Consultation ---
History of Present Illness History of Present Illness Date Seen by Provider: October 11, 2020 Time Seen by Provider: 08:21 Date of Admission History of Present Illness 65yo with hx of COPD, CAD presented to ED secondary to midsternal CP radiating to left arm. took Nitro x 2 without relief of symptoms. States pain lasted for approx 30min and resolved while in ER. Denies any further episode of chest pain. Denies any increased dyspnea, dizziness or lightheadedness. Allergies and Home Medications Allergies Coded Allergies: budesonide (Verified Allergy, Severe, angioedema, 12/06/18) formoterol (Verified Allergy, Severe, angioedema, 12/06/18) tetanus toxoid, adsorbed (Verified Allergy, Mild, hives, 12/06/18) DOROTA Inhibitors (Verified Allergy, Unknown, Angioedema, 12/06/18) Home Medications Albuterol Sulfate 2.5 Mg/3 Ml Vial.neb, 2.5 MG NEB TID PRN for SHORTNESS OF BREATH, (Reported) Albuterol Sulfate 1 Puff Puff, 2 PUFF IH PRN PRN for SHORTNESS OF BREATH, (Reported) Amlodipine Besylate 5 Mg Tablet, 5 MG PO DAILY, (Reported) Aripiprazole 30 Mg Tablet, 30 MG PO DAILY, (Reported) Aspirin 81 Mg Tab.chew, 81 MG PO DAILY, (Reported) Atorvastatin Calcium 80 Mg Tablet, 80 MG PO DAILY, (Reported) Bupropion HCl 75 Mg Tablet, 75 MG PO DAILY, (Reported) Carvedilol 6.25 Mg Tablet, 6.25 MG PO DAILY, (Reported) Clopidogrel Bisulfate 75 Mg Tablet, 75 MG PO DAILY, (Reported) Fish Oil/Dha/Epa 1 Each Capsule, 1 EACH PO DAILY, (Reported) Isosorbide Mononitrate 30 Mg Tab.er.24h, 30 MG PO DAILY, (Reported) Mirtazapine 30 Mg Tablet, 30 MG PO HS, (Reported) Montelukast Sodium 10 Mg Tablet, 10 MG PO DAILY, (Reported) Nitroglycerin 0.4 Mg Tab.subl, 0.4 MG PO UD PRN for CHEST PAIN, (Reported) Ranolazine 1,000 Mg Tab.er.12h, 1,000 MG PO DAILY, (Reported) Sertraline HCl 100 Mg Tablet, 200 MG PO DAILY, (Reported) TAKES 2 (100MG) TABS DAILY Past Vslwwwz-Nzunhs-Wwxoig Hx Patient Social History Alcohol Use: Denies Use Smoking Status: Former Smoker Type Used: Cigarettes Former Smoker, Quit: Dec 16, 2017 2nd Hand Smoke Exposure: Yes Recent Infectious Disease Expo: No Recent Hopitalizations: No Immunizations Up To Date Tetanus Booster (TDap): Unknown PED Vaccines UTD: No Date of Pneumonia Vaccine: Apr 26, 2020 Date of Influenza Vaccine: Apr 26, 2020 Seasonal Allergies Seasonal Allergies: No Past Medical History Surgeries: Yes Abdominal, Cardiac, CABG, Coronary Stent, Tonsillectomy, Vascular Surgery Respiratory: Yes (WEARS O2 AT 5L/NC CONTINUOUSLY. RUL PULMONARY NODULE) Pneumonia, Chronic Bronchitis, COPD Currently Using CPAP: No Currently Using BIPAP: No Cardiac: Yes (STENT X1/ANGIO L EXT ILIAC ART;CABG/STENT X4;CAROTID DZ;CHF;CARDIAC ARREST) Coronary Artery Disease, Deep Vein Thrombosis, Heart Attack, High Cholesterol, Hypertension, Peripheral Vascular Neurological: Yes Stroke Reproductive Disorders: No Sexually Transmitted Disease: No HIV/AIDS: No Genitourinary: No Gastrointestinal: Yes Gastroesophageal Reflux, Ulcer Musculoskeletal: Yes Arthritis, Chronic Back Pain Endocrine: No HEENT: No Loss of Vision: Denies Hearing Impairment: Denies Cancer: No Psychosocial: Yes Sleep Difficulties, Anxiety, Schizophrenia, Depression Integumentary: No Blood Disorders: No Adverse Reaction/Blood Tranf: No Family Medical History Diabetes mellitus 19 MOTHER FH: heart disease 19 FATHER Heart Disease, Diabetes SOCIAL HX: -HX OF ALCOHOL ABUSE--CLAIMS HE QUIT YEARS AGO -DENIES DRUG USE -SMOKED 1 06/10 PPD--QUIT 2017 PSH: -CABG--1 VESSEL BYPASS -CARDIAC CATHS AND STENTS X 4, WITH ANGIOPLASTIES--LAST CARDIAC CATH 03/2018--PATENT STENT TO PROXIMAL LAD TO FIRST DIAGONAL, COMPLETE OCCLUSION OF MID LAD AND TO VEIN GRAFT TO LAD; EF 45-50%--NO INTERVENTION DONE AT THAT TIME AND FINDINGS WERE THE SAME THOSE FOUND ON CARDIAC CATH IN 2014 -ANGIOPLASTY AND STENT X 1 TO LEFT LEG/EXTERNAL ILIAC ARTERY 02/2017 -RIGHT INGUINAL HERNIA REPAIR -TONSILLECTOMY ADDITIONAL PMH: -HX OF CARDIAC ARREST -CAROTID DISEASE--SEVERE ON RIGHT -RBBB ; LAFB Review of Systems Time Seen by Provider: 05:54 Sepsis Event Evaluation Height, Weight, BMI Height: 5'8.00" Weight: 174lbs. 0.0oz. 78.577600ig; 27.00 BMI Method:Stated Exam Exam Vital Signs Date Time Temp Pulse Resp B/P (MAP) Pulse Ox O2 Delivery O2 Flow Rate FiO2 10/11/20 08:13 36.4 76 118/72 (87) 97 Nasal Cannula 5.00 10/11/20 08:00 Nasal Cannula 5.00 10/11/20 07:59 Nasal Cannula 5 10/11/20 06:50 68 10/11/20 04:00 79 118/62 (80) 10/11/20 03:45 78 134/70 (91) 10/11/20 03:35 81 10/11/20 03:30 76 136/74 (94) 10/11/20 03:19 36.7 73 98 10/11/20 03:10 36.4 80 18 147/76 (99) 98 Nasal Cannula 5.00 10/11/20 03:10 Nasal Cannula 5.00 10/11/20 02:46 36.7 75 18 140/72 (92) 98 Nasal Cannula 5.00 10/10/20 20:39 Nasal Cannula 5.00 10/10/20 20:39 Nasal Cannula 5.00 10/10/20 20:39 36.7 73 23 130/74 (92) 98 Nasal Cannula 5.00 I & O 10/11/20 07:00 Intake Total 150 ml Balance 150 ml Height & Weight Height: 5'8.00" Weight: 174lbs. 0.0oz. 78.592788qo; 27.00 BMI Method:Stated General Appearance: No Apparent Distress, WD/WN HEENT: PERRL/EOMI, TMs Normal, Normal ENT Inspection, Pharynx Normal Neck: Full Range of Motion, Normal Inspection, Non Tender Respiratory: Chest Non Tender, Lungs Clear, Normal Breath Sounds, No Accessory Muscle Use, No Respiratory Distress Cardiovascular: Regular Rate, Rhythm, No Edema, No Gallop Capillary Refill: Less Than 3 Seconds Gastrointestinal: normal bowel sounds, non tender, soft Extremity: Normal Capillary Refill, Normal Inspection, No Pedal Edema Neurologic/Psychiatric: Alert, Oriented x3 Skin: Normal Color, Warm/Dry Lymphatic: No Adenopathy Results Lab Laboratory Tests 10/10/20 20:19 10/11/20 04:23 Assessment/Plan Assessment/Plan Acute CP with hx of CAD -Cardiology is following Hx of COPD - currently stable -Monitor XIMENA QUINONES DO October 11, 2020 08:26
[2020-10-11] MEDS ORDERED: ASPIRIN E.C. 81 MG (ECOTRIN) TAB PO SCH (09:00)
--- NOTE | 2020-10-11 09:35 | Short Stay Summary-Hospitalist ---
History of Present Illness HPI/Chief Complaint Pt is a 65yoCM with a PMH who presented to the Er due to chest pain via EMS. He has known CAD and is well known to Dr Carrion for his cardiac care. He received ASA and nitro x3 by EMS which did not resolve his pain. He denies any SOB or cough. He has been stable on his baseline 5lpm. He states it started at 630pm last night and felt like his normal angina. He states it was in the middle of his chest and radiated to his left arm. He was given nitropaste in the ER and that helped his pain. He was admitted for observation. He now reports his pain is completely resolved and he would like to go home. Source: patient Date Seen 10/11/20 Time Seen by a Provider: 09:35 Attending Physician Tanna Gaspar MD PCP Judi Zepeda MD Referring Physician Date of Admission October 11, 2020 at 01:47 Home Medications & Allergies Home Medications Reviewed patient Home Medication Reconciliation performed by pharmacy medication reconciliations hospital technician and/or nursing. Patients Allergies have been reviewed. Allergies Allergies Coded Allergies budesonide (Verified Allergy, Severe, angioedema, 12/06/18) formoterol (Verified Allergy, Severe, angioedema, 12/06/18) tetanus toxoid, adsorbed (Verified Allergy, Mild, hives, 12/06/18) DOROTA Inhibitors (Verified Allergy, Unknown, Angioedema, 12/06/18) Past Wnwibig-Pgotsc-Dyhaca Hx Past Med/Social Hx: Reviewed Nursing Past Med/Soc Hx Patient Social History Alcohol Use: Denies Use Recreational Drug Use: No Smoking Status: Former Smoker Former Smoker, Quit: Dec 16, 2017 Type Used: Cigarettes 2nd Hand Smoke Exposure: Yes Recent Foreign Travel: No Contact w/other who traveled: No Recent Hopitalizations: No Recent Infectious Disease Expo: No Immunizations Up To Date Tetanus Booster (TDap): Unknown Pediatric: No Date of Pneumonia Vaccine: Apr 26, 2020 Date of Influenza Vaccine: Apr 26, 2020 Seasonal Allergies Seasonal Allergies: No Past Medical History Surgeries: Abdominal, Cardiac, CABG, Coronary Stent, Tonsillectomy, Vascular Surgery Respiratory: COPD Currently Using CPAP: No Currently Using BIPAP: No Cardiac: Coronary Artery Disease, Deep Vein Thrombosis, Heart Attack, High Cholesterol, Hypertension, Peripheral Vascular Neurological: Stroke Reproductive: No Sexually Transmitted Disease: No HIV/AIDS: No Gastrointestinal: Gastroesophageal Reflux, Ulcer Musculoskeletal: Arthritis, Chronic Back Pain Loss of Vision: Denies Hearing Impairment: Denies Psychosocial: Sleep Difficulties, Anxiety, Schizophrenia, Depression History of Blood Disorders: No Adverse Reaction to Blood Ang: No Family History Reviewed Nursing Family Hx Diabetes mellitus 19 MOTHER FH: heart disease 19 FATHER Heart Disease, Diabetes SOCIAL HX: -HX OF ALCOHOL ABUSE--CLAIMS HE QUIT YEARS AGO -DENIES DRUG USE -SMOKED 1 06/10 PPD--QUIT 2017 PSH: -CABG--1 VESSEL BYPASS -CARDIAC CATHS AND STENTS X 4, WITH ANGIOPLASTIES--LAST CARDIAC CATH 03/2018--PATENT STENT TO PROXIMAL LAD TO FIRST DIAGONAL, COMPLETE OCCLUSION OF MID LAD AND TO VEIN GRAFT TO LAD; EF 45-50%--NO INTERVENTION DONE AT THAT TIME AND FINDINGS WERE THE SAME THOSE FOUND ON CARDIAC CATH IN 2014 -ANGIOPLASTY AND STENT X 1 TO LEFT LEG/EXTERNAL ILIAC ARTERY 02/2017 -RIGHT INGUINAL HERNIA REPAIR -TONSILLECTOMY ADDITIONAL PMH: -HX OF CARDIAC ARREST -CAROTID DISEASE--SEVERE ON RIGHT -RBBB ; LAFB Review of Systems Constitutional: No chills, No fever EENTM: no symptoms reported Respiratory: No cough, No short of breath Cardiovascular: chest pain; No edema; Hx of Intervention; No palpitations Gastrointestinal: no symptoms reported Genitourinary: no symptoms reported Musculoskeletal: no symptoms reported Skin: no symptoms reported Psychiatric/Neurological: No Symptoms Reported Physical Exam Physical Exam Vital Signs Vital Signs - First Documented 10/11/20 07:59 FiO2 5 Capillary Refill : Less Than 3 Seconds Height, Weight, BMI Height: 5'8.00" Weight: 174lbs. 0.0oz. 78.800245lt; 27.00 BMI Method:Stated General Appearance: No Apparent Distress, WD/WN HEENT: PERRL/EOMI, Moist Mucous Membranes Neck: Normal Inspection, Supple; No JVD Respiratory: Lungs Clear, No Accessory Muscle Use, No Respiratory Distress Cardiovascular: Regular Rate, Rhythm, No Edema, No Murmur Gastrointestinal: Normal Bowel Sounds, Non Tender, Soft Extremity: Normal Inspection, Non Tender, No Pedal Edema Neurologic/Psychiatric: Alert, Oriented x3, Normal Mood/Affect Skin: Normal Color, Warm/Dry Results Results/Procedures Labs Laboratory Tests 10/10/20 20:19 10/11/20 04:23 Patient resulted labs reviewed. Imaging: Reviewed Imaging Report [facility] [place], [place] NAME: WINTER [facility] REC#: [id number] PT STATUS: DIS Kush : 1955 PHYSICIAN: IRIS NELSON MD ADMIT DATE: 10/11/20/CSD Signed Date of Exam:10/10/20 CT ANGIO CHEST W PROCEDURE: CT angiography of the chest with contrast. TECHNIQUE: Multiple contiguous axial images were obtained through the chest after uneventful bolus administration of intravenous contrast. 3D reconstructed CTA MIP acquisitions were also performed. Auto Exposure Controls were utilized during the CT exam to meet ALARA standards for radiation dose reduction. INDICATION: Chest pain. Comparison with 05/31/2019. FINDINGS: The lungs are well-aerated. There is mild atelectasis in the right lung base. Lungs are otherwise clear. There is good opacification of aorta and pulmonary arteries. No filling defects are seen to indicate pulmonary emboli. Aorta shows postsurgical changes from coronary bypass. Aortic root measures 3.7 cm. No evidence of aortic dissection. No mediastinal or hilar adenopathy. No pleural effusions or pericardial effusion. IMPRESSION: No evidence of pulmonary emboli. These findings are concordant with the preliminary report. Dictated by: Dictated on workstation # [id number] Dict: 10/11/2016 Trans: 10/11/20 1151 [id number] Interpreted by: JAYCOB BEAN MD Electronically signed by: JAYCOB BEAN MD 10/11/20 1151 [facility], [facility]. [place], [place] NAME: WINTER [facility] REC#: [id number] PT STATUS: REG ER : 1955 PHYSICIAN: IRIS NELSON MD ADMIT DATE: 10/10/20/ER Signed Date of Exam:10/10/20 CHEST 1 VIEW, AP/PA ONLY INDICATION: Chest pain Frontal chest obtained at 09:03 p.m. and compared to 06/28/2020. There is poststernotomy change. The heart is borderline enlarged. There is unchanged elevation of the right hemidiaphragm. There is no focal infiltrate or pneumothorax or pleural fluid. IMPRESSION: Postop changes with mild cardiomegaly and unchanged elevation of the right hemidiaphragm. No focal infiltrate or pleural fluid. Dictated by: Dictated on workstation # [id number] Dict: 10/10/202108 Trans: 10/10/202135 [facility] [id number] Interpreted by: AMRIT CASTELLON MD Electronically signed by: AMRIT CASTELLON MD 10/10/202135 Short Stay Diagnosis Discharge Diagnosis-Short Stay Admission Diagnosis Chronic stable angina Final Discharge Diagnosis Chronic stable angina Conclusion Plan Chronic stable angina CAD Cardiology consulted, appreciate recs Troponins negative Monitored on telemetry Pain now resolved Requesting DC home Will DC home on home meds with close follow up with Dr Carrion Diagnosis/Problems Diagnosis/Problems (1) CAD (coronary artery disease) Status: Chronic Qualifiers: Qualified Codes: I25.118 - Atherosclerotic heart disease of [place] coronary artery with other forms of angina pectoris (2) Chest pain Status: Resolved Resolution Date/Time: 10/14/17 @ 10:38 (3) COPD (chronic obstructive pulmonary disease) Status: Chronic Clinical Quality Measures AMI/AHF: ASA po Prior to arrival: Yes JUAREZ TOLENTINO MD October 11, 2020 09:35
--- NOTE | 2020-10-11 09:48 | Discharge Inst-Simple/Standard ---
Discharge Inst-Standard Patient Instructions/Follow Up Plan of Care/Instructions/FU: Please continue to take your medications as written. Please follow up with Dr Carrion and Dr Hanks to follow up this hospital stay. Activity as Tolerated: Yes Discharge Diet: Cardiac Diet Return to The Hospital For: Chest pain, shortness of breath, confusion, weakness, if you feel you are getting worse. JUAREZ TOLENTINO MD October 11, 2020 09:48
== END 2020-10-11 10:48 | disposition home or self-care (01) ==
LOC: EDUNIT# 20:37 → ER 20:38 → CSD 10-11 01:47
PROVIDERS: ADMIT Internal Medicine; ATTEND Internal Medicine
DX: R07.2 Precordial pain (principal); I25.118 Atherosclerotic heart disease of native coronary artery with other forms of angina pectoris; J44.9 Chronic obstructive pulmonary disease, unspecified; I10 Essential (primary) hypertension; J18.9 Pneumonia, unspecified organism; I25.2 Old myocardial infarction; I44.4 Left anterior fascicular block; E78.00 Pure hypercholesterolemia, unspecified; K21.9 Gastro-esophageal reflux disease without esophagitis; F41.9 Anxiety disorder, unspecified; F32.9 Major depressive disorder, single episode, unspecified; I65.23 Occlusion and stenosis of bilateral carotid arteries; I73.9 Peripheral vascular disease, unspecified; F20.9 Schizophrenia, unspecified; Z83.3 Family history of diabetes mellitus; Z86.718 Personal history of other venous thrombosis and embolism; Z98.890 Other specified postprocedural states; Z86.73 Personal history of transient ischemic attack (TIA), and cerebral infarction without residual deficits; Z87.891 Personal history of nicotine dependence; Z88.8 Allergy status to other drugs, medicaments and biological substances; Z79.82 Long term (current) use of aspirin; Z79.02 Long term (current) use of antithrombotics/antiplatelets; Z79.899 Other long term (current) drug therapy; Z95.1 Presence of aortocoronary bypass graft; Z95.5 Presence of coronary angioplasty implant and graft; Z90.89 Acquired absence of other organs
CPT/HCPCS: 71045; 71275; 80048; 80053; 80061; 83735; 83874; 84484; 85025 ×2; 85379; 85610; 85730; 93005 ×2; 93041; 94640; 99284; G0378; 36415

== ENCOUNTER 2020-10-21 20:42 | Emergency (ER) | payer MEDICARE, MEDICAID ==
[~2020-10-21] VITALS: Ht 172.7 cm; Wt 83.4 kg
[~2020-10-21 20:42] MED LIST changes: -ONDANSETRON 4 MG/2 ML (SDV) Z0FRAN ONE; -fentaNYL INJ 100 MCG/2 ML AMP ONE
[2020-10-21 21:38] LABS: BASOPHILS % (AUTO) 0 % (0-10); EOSINOPHILS # (AUTO) 0.1 10^3/uL (0.0-0.3); EOSINOPHILS % (AUTO) 2 % (0-10); HEMATOCRIT 36 % (40-54); HEMOGLOBIN 10.5 g/dL (13.3-17.7); LYMPHOCYTES # (AUTO) 1.6 10^3/uL (1.0-4.0); LYMPHOCYTES % (AUTO) 29 % (12-44); MEAN CORPUSCULAR HEMOGLOBIN 29 pg (25-34); MEAN CORPUSCULAR HGB CONC 30 g/dL (32-36); MEAN CORPUSCULAR VOLUME 99 fL (80-99); MEAN PLATELET VOLUME 9.8 fL (9.0-12.2); MONOCYTES # (AUTO) 0.6 10^3/uL (0.0-1.0); MONOCYTES % (AUTO) 10 % (0-12); NEUTROPHILS # (AUTO) 3.3 10^3/uL (1.8-7.8); NEUTROPHILS % (AUTO) 59 % (42-75); PLATELET COUNT 144 10^3/uL (130-400); WHITE BLOOD COUNT 5.6 10^3/uL (4.3-11.0)
[2020-10-21 21:43] LABS: BILIRUBIN,URINE NEGATIVE (NEGATIVE); CLARITY,URINE CLEAR; COLOR,URINE YELLOW; GLUCOSE, URINE (UA) NEGATIVE (NEGATIVE); KETONES,URINE NEGATIVE (NEGATIVE); LEUKOCYTE ESTERASE ,URINE NEGATIVE (NEGATIVE); NITRITE,URINE NEGATIVE (NEGATIVE); PROTEIN,URINE NEGATIVE (NEGATIVE)
[2020-10-21 21:50] LABS: BACTERIA,URINE NEGATIVE /HPF; RBC,URINE RARE /HPF; SQUAMOUS EPITHELIAL CELL,UR RARE /HPF; WBC,URINE RARE /HPF
[2020-10-21 21:56] LABS: AMYLASE 45 U/L (25-125); CHLORIDE 92 MMOL/L (98-107); POTASSIUM 4.1 MMOL/L (3.6-5.0); SODIUM 143 MMOL/L (135-145)
[2020-10-21 21:57] LABS: CALCIUM 9.4 MG/DL (8.5-10.1)
[2020-10-21 21:58] LABS: GLUCOSE 90 MG/DL (70-105); TOTAL PROTEIN 7.3 GM/DL (6.4-8.2)
[2020-10-21 21:59] LABS: CARBON DIOXIDE 44 MMOL/L (21-32)
[2020-10-21 22:00] LABS: BILIRUBIN,TOTAL 0.3 MG/DL (0.1-1.0)
[2020-10-21 22:01] LABS: ALKALINE PHOSPHATASE 101 U/L (40-136)
[2020-10-21 22:02] LABS: CREATININE SERUM 0.86 MG/DL (0.60-1.30); GFR ESTIMATED > 60
[2020-10-21 22:03] LABS: BUN/CREATININE RATIO 14
[2020-10-21 22:04] LABS: ALANINE AMINOTRANSFERASE 15 U/L (0-55)
[2020-10-21 22:05] LABS: LIPASE 27 U/L (8-78)
--- NOTE | 2020-10-21 23:53 | ED Abdominal Pain ---
General Chief Complaint: Abdominal/GI Problems Stated Complaint: L SIDE PAIN Nursing Triage Note: PATIENT STARTED HAVING PAIN ON FRIDAY SAW DOCTOR JIM AND WAS GIVEN KEFLEX 500 MG QID AND ZOFRAN FOR NAUSEA. STATES PAIN IS WORSE TODAY, HAS NOT TAKEN ANYTHING FOR PAIN AT HOME. SPOUSE AT BEDSIDE. CALL LIGHT IN REACH. Sepsis Screen: No Definite Risk Source of Information: Patient Allergies and Home Medications Allergies Coded Allergies: budesonide (Verified Allergy, Severe, angioedema, 12/06/18) formoterol (Verified Allergy, Severe, angioedema, 12/06/18) tetanus toxoid, adsorbed (Verified Allergy, Mild, hives, 12/06/18) DOROTA Inhibitors (Verified Allergy, Unknown, Angioedema, 12/06/18) Home Medications Albuterol Sulfate 2.5 Mg/3 Ml Vial.neb, 2.5 MG NEB TID PRN for SHORTNESS OF BREATH, (Reported) Albuterol Sulfate 1 Puff Puff, 2 PUFF IH PRN PRN for SHORTNESS OF BREATH, (Reported) Amlodipine Besylate 5 Mg Tablet, 5 MG PO DAILY, (Reported) Aripiprazole 30 Mg Tablet, 30 MG PO DAILY, (Reported) Aspirin 81 Mg Tab.chew, 81 MG PO DAILY, (Reported) Atorvastatin Calcium 80 Mg Tablet, 80 MG PO DAILY, (Reported) Bupropion HCl 75 Mg Tablet, 75 MG PO DAILY, (Reported) Carvedilol 6.25 Mg Tablet, 6.25 MG PO DAILY, (Reported) Clopidogrel Bisulfate 75 Mg Tablet, 75 MG PO DAILY, (Reported) Fish Oil/Dha/Epa 1 Each Capsule, 1 EACH PO DAILY, (Reported) Isosorbide Mononitrate 30 Mg Tab.er.24h, 30 MG PO DAILY, (Reported) Mirtazapine 30 Mg Tablet, 30 MG PO HS, (Reported) Montelukast Sodium 10 Mg Tablet, 10 MG PO DAILY, (Reported) Nitroglycerin 0.4 Mg Tab.subl, 0.4 MG PO UD PRN for CHEST PAIN, (Reported) Ranolazine 1,000 Mg Tab.er.12h, 1,000 MG PO DAILY, (Reported) Sertraline HCl 100 Mg Tablet, 200 MG PO DAILY, (Reported) TAKES 2 (100MG) TABS DAILY Past Qzekcge-Gqwmii-Iegsvj Hx Patient Social History Type Used: Cigarettes Former Smoker, Quit: Dec 16, 2017 2nd Hand Smoke Exposure: Yes Recent Infectious Disease Expo: No Recent Hopitalizations: No Immunizations Up To Date Tetanus Booster (TDap): Unknown PED Vaccines UTD: No Date of Pneumonia Vaccine: Apr 26, 2020 Date of Influenza Vaccine: Apr 26, 2020 Seasonal Allergies Seasonal Allergies: No Past Medical History Surgeries: Yes Abdominal, Cardiac, CABG, Coronary Stent, Tonsillectomy, Vascular Surgery Respiratory: Yes (WEARS O2 AT 5L/NC CONTINUOUSLY. RUL PULMONARY NODULE) Pneumonia, Chronic Bronchitis, COPD Currently Using CPAP: No Currently Using BIPAP: No Cardiac: Yes (STENT X1/ANGIO L EXT ILIAC ART;CABG/STENT X4;CAROTID DZ;CHF;CARDIAC ARREST) Coronary Artery Disease, Deep Vein Thrombosis, Heart Attack, High Cholesterol, Hypertension, Peripheral Vascular Neurological: Yes Stroke Reproductive Disorders: No Sexually Transmitted Disease: No HIV/AIDS: No Genitourinary: No Gastrointestinal: Yes Gastroesophageal Reflux, Ulcer Musculoskeletal: Yes Arthritis, Chronic Back Pain Endocrine: No HEENT: No Loss of Vision: Denies Hearing Impairment: Denies Cancer: No Psychosocial: Yes Sleep Difficulties, Anxiety, Schizophrenia, Depression Integumentary: No Blood Disorders: No Adverse Reaction/Blood Tranf: No Family Medical History Diabetes mellitus 19 MOTHER FH: heart disease 19 FATHER No Pertinent Family Hx, Heart Disease, Diabetes SOCIAL HX: -HX OF ALCOHOL ABUSE--CLAIMS HE QUIT YEARS AGO -DENIES DRUG USE -SMOKED 1 1/2 PPD--QUIT 2017 PSH: -CABG--1 VESSEL BYPASS -CARDIAC CATHS AND STENTS X 4, WITH ANGIOPLASTIES--LAST CARDIAC CATH 03/2018--PATENT STENT TO PROXIMAL LAD TO FIRST DIAGONAL, COMPLETE OCCLUSION OF MID LAD AND TO VEIN GRAFT TO LAD; EF 45-50%--NO INTERVENTION DONE AT THAT TIME AND FINDINGS WERE THE SAME THOSE FOUND ON CARDIAC CATH IN 2014 -ANGIOPLASTY AND STENT X 1 TO LEFT LEG/EXTERNAL ILIAC ARTERY 02/2017 -RIGHT INGUINAL HERNIA REPAIR -TONSILLECTOMY ADDITIONAL PMH: -HX OF CARDIAC ARREST -CAROTID DISEASE--SEVERE ON RIGHT -RBBB ; LAFB Physical Exam Vital Signs Vital Signs - First Documented 10/21/20 21:15 Temp 36.6 Pulse 83 Resp 18 B/P (MAP) 169/82 (111) Pulse Ox 100 O2 Delivery Nasal Cannula O2 Flow Rate 5.00 Capillary Refill : Less Than 3 Seconds Height/Weight/BMI Height: 5'8.00" Weight: 174lbs. 0.0oz. 78.290476xv; 27.00 BMI Method:Stated Progress/Results/Core Measures Results/Orders Lab Results Laboratory Tests Test 10/21/20 21:32 10/21/20 21:37 Range/Units White Blood Count 5.6 4.3-11.0 10^3/uL Red Blood Count 3.61 L 4.30-5.52 10^6/uL Hemoglobin 10.5 L 13.3-17.7 g/dL Hematocrit 36 L 40-54 % Mean Corpuscular Volume 99 80-99 fL Mean Corpuscular Hemoglobin 29 25-34 pg Mean Corpuscular Hemoglobin Concent 30 L 32-36 g/dL Red Cell Distribution Width 12.7 10.0-14.5 % Platelet Count 144 130-400 10^3/uL Mean Platelet Volume 9.8 9.0-12.2 fL Immature Granulocyte % (Auto) 0 % Neutrophils (%) (Auto) 59 42-75 % Lymphocytes (%) (Auto) 29 12-44 % Monocytes (%) (Auto) 10 0-12 % Eosinophils (%) (Auto) 2 0-10 % Basophils (%) (Auto) 0 0-10 % Neutrophils # (Auto) 3.3 1.8-7.8 10^3/uL Lymphocytes # (Auto) 1.6 1.0-4.0 10^3/uL Monocytes # (Auto) 0.6 0.0-1.0 10^3/uL Eosinophils # (Auto) 0.1 0.0-0.3 10^3/uL Basophils # (Auto) 0.0 0.0-0.1 10^3/uL Immature Granulocyte # (Auto) 0.0 0.0-0.1 10^3/uL Sodium Level 143 135-145 MMOL/L Potassium Level 4.1 3.6-5.0 MMOL/L Chloride Level 92 L 98-107 MMOL/L Carbon Dioxide Level 44 H 21-32 MMOL/L Anion Gap 7 5-14 MMOL/L Blood Urea Nitrogen 12 7-18 MG/DL Creatinine 0.86 0.60-1.30 MG/DL Estimat Glomerular Filtration Rate > 60 BUN/Creatinine Ratio 14 Glucose Level 90 70-105 MG/DL Calcium Level 9.4 8.5-10.1 MG/DL Corrected Calcium 9.4 8.5-10.1 MG/DL Total Bilirubin 0.3 0.1-1.0 MG/DL Aspartate Amino Transf (AST/SGOT) 18 5-34 U/L Alanine Aminotransferase (ALT/SGPT) 15 0-55 U/L Alkaline Phosphatase 101 40-136 U/L Total Protein 7.3 6.4-8.2 GM/DL Albumin 4.0 3.2-4.5 GM/DL Amylase Level 45 25-125 U/L Lipase 27 8-78 U/L Urine Color YELLOW Urine Clarity CLEAR Urine pH 7.0 5-9 Urine Specific Fiatt 1.020 1.016-1.022 Urine Protein NEGATIVE NEGATIVE Urine Glucose (UA) NEGATIVE NEGATIVE Urine Ketones NEGATIVE NEGATIVE Urine Nitrite NEGATIVE NEGATIVE Urine Bilirubin NEGATIVE NEGATIVE Urine Urobilinogen 1.0 < = 1.0 MG/DL Urine Leukocyte Esterase NEGATIVE NEGATIVE Urine RBC (Auto) TRACE-I NEGATIVE Urine RBC RARE /HPF Urine WBC RARE /HPF Urine Squamous Epithelial Cells RARE /HPF Urine Crystals NONE /LPF Urine Bacteria NEGATIVE /HPF Urine Casts NONE /LPF Urine Mucus SMALL H /LPF Urine Culture Indicated NO My Orders Orders - DEBBIE ESPINOSA DO Ed Iv/Invasive Line Start (10/21/20 21:26) Amylase (10/21/20 21:26) Cbc With Automated Diff (10/21/20 21:26) Comprehensive Metabolic Panel (10/21/20 21:26) Lipase (10/21/20 21:26) Ua Culture If Indicated (10/21/20 21:26) Acute Abd Series (10/21/20 21:56) Ct Abd/Pelv W (Appendicitis) (10/21/20 21:56) Vital Signs/I&O 10/21/20 21:15 Temp 36.6 Pulse 83 Resp 18 B/P (MAP) 169/82 (111) Pulse Ox 100 O2 Delivery Nasal Cannula O2 Flow Rate 5.00 Blood Pressure Mean: 111 Departure Impression Primary Impression: LLQ abdominal pain Disposition: 01 HOME, SELF-CARE Condition: Stable Departure-Patient Inst. Decision time for Depature: 23:50 Referrals: BRANDON RODAS MD (PCP/Family) Primary Care Physician Patient Instructions: Abdominal Pain, Adult ED Add. Discharge Instructions: HOME, REST CLEAR LIQUIDS--WATER, BROTH, JELLO, GATORADE NO FOOD UNTIL YOU PAIN IS BETTER FOLLOW UP WITH YOUR DR IN 2-3 DAYS IF NO BETTER, RETURN TO ER IF WORSE All discharge instructions reviewed with patient and/or family. Voiced understanding. Scripts Tramadol HCl (Ultram) 50 Mg Tablet 50 MG PO Q4H for Pain, #20 TAB Prov: DEBBIE ESPINOSA DO 10/21/20 Orphenadrine Citrate (Orphenadrine Citrate) 100 Mg Tablet.er 100 MG PO TID, #10 TAB Prov: DEBBIE ESPINOSA DO 10/21/20 DEBBIE ESPINOSA DO October 21, 2020 23:53
[2020-10-21] MEDS ORDERED: ORPH100T PO (23:58)
[2020-10-21] MEDS ORDERED: TRAM-42 PO (23:58)
[2020-10-22] MEDS ORDERED: ORPHENADRINE 60 MG/2 ML (NORFLEX) AMP (ED ONLY) IV ONE
[2020-10-22] MEDS ORDERED: KETOROLAC 30 MG/ML VIAL IVP ONE
[2020-10-22 00:33] VITALS: BP 136/69
--- NOTE | 2020-10-22 06:11 | Diagnostic Imaging Report ---
PROCEDURE: CT abdomen and pelvis with contrast, rule out appendicitis. TECHNIQUE: Multiple contiguous axial images were obtained through the abdomen and pelvis after the administration of intravenous contrast. All CT scans use one or more of the following dose optimizing techniques: automated exposure control, MA and/or KvP adjustment based on patient size and exam type or iterative reconstruction. INDICATION: Right lower quadrant pain. Imaging through the lung bases does show subsegmental atelectasis the right lower lobe. No discrete liver mass is identified. The gallbladder is contracted. There is no biliary ductal dilatation. The pancreas and spleen are unremarkable. No adrenal mass is detected. Kidneys are unremarkable. Aorta is calcified but nonaneurysmal. Bowel loops are normal caliber. There is no obstruction. The appendix is visualized in the right lower quadrant and unremarkable. There is no CT evidence of acute appendicitis. There is diverticulosis of portions of the sigmoid colon and descending colon but no evidence of acute diverticulitis. There is no free fluid or fluid collection. Bladder is decompressed. Prostate is unremarkable. Bony structures are nonacute. IMPRESSION: 1. No CT evidence of acute appendicitis. 2. Uncomplicated diverticulosis. Dictated by: Dictated on workstation # [id number]
--- NOTE | 2020-10-22 06:47 | Diagnostic Imaging Report ---
INDICATION: Abdominal pain. TIME OF EXAM: 10:34 PM There are changes of median sternotomy and CABG. The right hemidiaphragm is mildly elevated. There is subsegmental atelectasis in the right lung base. Otherwise, the lungs are clear. No free air is identified. Bowel gas pattern is nonobstructed. There is moderate stool in the right colon. No pathologic calcifications are seen. There is a left iliac stent in place. IMPRESSION: No acute abnormality is detected. Dictated by: Dictated on workstation # [id number]
== END 2020-10-22 00:35 | disposition home or self-care (01) ==
LOC: EDUNIT# 20:42 → ER 20:44
DX: R10.32 Left lower quadrant pain (principal); J44.9 Chronic obstructive pulmonary disease, unspecified; I25.2 Old myocardial infarction; I10 Essential (primary) hypertension; I25.10 Atherosclerotic heart disease of native coronary artery without angina pectoris; E78.00 Pure hypercholesterolemia, unspecified; F32.9 Major depressive disorder, single episode, unspecified; F41.9 Anxiety disorder, unspecified; F20.9 Schizophrenia, unspecified; Z88.7 Allergy status to serum and vaccine; Z88.8 Allergy status to other drugs, medicaments and biological substances; Z86.73 Personal history of transient ischemic attack (TIA), and cerebral infarction without residual deficits; Z87.891 Personal history of nicotine dependence; Z79.82 Long term (current) use of aspirin; Z79.899 Other long term (current) drug therapy
CPT/HCPCS: 36415; 74022; 74177; 80053; 81000; 82150; 83690; 85025

== ENCOUNTER → 2020-10-23 | Outpatient (CLI) | payer MEDICARE, MEDICAID ==
[~2020-10-23] MED LIST changes: +CATHETER FLUSH 10 ML SYR IV PRN; +HOLD METFORMIN - RECEIVED CONTRAST 20 ML VIAL IV SCH; +IOHEXOL 350 MG/ML 100 ML (OMNIPAQUE 350) VIAL IV ONE; +NS 100 ML (IVPB) BAG IV ONE; +ORPH100T PO
--- NOTE | 2020-10-23 12:46 | Diagnostic Imaging Report ---
REASON FOR EXAM: Carotid stenosis. Follow\up. COMPARISON: 10/10/2020. 05/31/2019. 03/22/2017. TECHNIQUE: Contrast-enhanced thin section helical images were obtained from the mediastinum to the sella with the bolus of contrast timed for the optimal opacification of the arterial structures of the neck per departmental CTA protocol. Postprocessing and retro-reconstruction with coronal and sagittal reformatted images of the angiographic views of the vessels were obtained and were reviewed. 3D reformatted images were generated on a separate workstation and were reviewed. FINDINGS: The visualized portions of the aortic arch demonstrate no evidence of aneurysm or dissection. The origin of the arch vessels is unremarkable. The brachiocephalic artery is normal in course and caliber. The right common carotid origin is unremarkable. The right subclavian artery is normal in course and caliber. Both common carotid arteries are normal in course and caliber. There is atherosclerotic plaque in the bilateral carotid bulbs and proximal internal carotid arteries. There is 70-80% stenosis in the proximal right internal carotid artery based on NASCET criteria. No significant stenosis is seen in the left internal carotid artery. The right vertebral artery is dominant. The origin of the right vertebral artery is seen and is unremarkable. The origin of the left vertebral artery is seen and is unremarkable. There is no focal stenosis seen within the neck. There is no dissection. The left vertebral artery ends in PICA. The osseous structures of the cervical spine are unremarkable. Included views through the lung apices demonstrate a nodule with central lucency measuring 6 mm in the right upper lobe.. Included views through the intracranial structures demonstrate no acute abnormalities. Retained secretions are seen in the paranasal sinuses, greatest in the left sphenoid sinus. IMPRESSION: 1. Stenosis of approximately 70-80% in the proximal right internal carotid artery secondary to atherosclerotic plaque. No stenosis is seen in the left carotid system. 2. No focal stenosis or dissection in the bilateral vertebral arteries. 3. Nodule in the right upper lobe which appears stable since 2017. Dictated by: Dictated on workstation # [id number]
== END ==
LOC: RAD 10:59
PROVIDERS: ATTEND Internal Medicine Cardiovascular Disease
DX: I65.23 Occlusion and stenosis of bilateral carotid arteries (principal); R91.1 Solitary pulmonary nodule
CPT/HCPCS: 70498

== ENCOUNTER 2020-11-18 21:32 | Emergency (ER) | payer MEDICARE, MEDICAID ==
[~2020-11-18] VITALS: Ht 175.3 cm; Wt 85.7 kg
[~2020-11-18 21:32] MED LIST changes: -CATHETER FLUSH 10 ML SYR IV PRN; -HOLD METFORMIN - RECEIVED CONTRAST 20 ML VIAL IV SCH; -IOHEXOL 350 MG/ML 100 ML (OMNIPAQUE 350) VIAL IV ONE; -NS 100 ML (IVPB) BAG IV ONE
[2020-11-18 22:09] LABS: BASOPHILS % (AUTO) 0 % (0-10); EOSINOPHILS # (AUTO) 0.1 10^3/uL (0.0-0.3); EOSINOPHILS % (AUTO) 2 % (0-10); HEMATOCRIT 34 % (40-54); HEMOGLOBIN 10.1 g/dL (13.3-17.7); LYMPHOCYTES # (AUTO) 1.3 10^3/uL (1.0-4.0); LYMPHOCYTES % (AUTO) 29 % (12-44); MEAN CORPUSCULAR HEMOGLOBIN 29 pg (25-34); MEAN CORPUSCULAR HGB CONC 29 g/dL (32-36); MEAN CORPUSCULAR VOLUME 100 fL (80-99); MEAN PLATELET VOLUME 10.7 fL (9.0-12.2); MONOCYTES # (AUTO) 0.4 10^3/uL (0.0-1.0); MONOCYTES % (AUTO) 9 % (0-12); NEUTROPHILS # (AUTO) 2.6 10^3/uL (1.8-7.8); NEUTROPHILS % (AUTO) 59 % (42-75); PLATELET COUNT 133 10^3/uL (130-400); WHITE BLOOD COUNT 4.4 10^3/uL (4.3-11.0)
[2020-11-18 22:11] LABS: ALBUMIN 3.8 GM/DL (3.2-4.5); CHLORIDE 92 MMOL/L (98-107); POTASSIUM 4.1 MMOL/L (3.6-5.0); SODIUM 142 MMOL/L (135-145)
[2020-11-18 22:13] LABS: GLUCOSE 120 MG/DL (70-105)
[2020-11-18 22:14] LABS: TOTAL PROTEIN 6.7 GM/DL (6.4-8.2)
[2020-11-18 22:15] LABS: BILIRUBIN,TOTAL 0.2 MG/DL (0.1-1.0); CARBON DIOXIDE 42 MMOL/L (21-32)
[2020-11-18 22:17] LABS: ALKALINE PHOSPHATASE 89 U/L (40-136); CREATININE SERUM 1.11 MG/DL (0.60-1.30); GFR ESTIMATED > 60
[2020-11-18 22:18] LABS: BUN/CREATININE RATIO 8
[2020-11-18 22:20] LABS: ALANINE AMINOTRANSFERASE 15 U/L (0-55); MAGNESIUM 1.9 MG/DL (1.6-2.4)
[2020-11-18] MEDS ORDERED: KETOROLAC 30 MG/ML VIAL IVP ONE (22:45)
[2020-11-18 23:25] LABS: AMPHETAMINE SCREEN, URINE NEGATIVE (NEGATIVE); BARBITURATE SCREEN URINE NEGATIVE (NEGATIVE); BENZODIAZEPINES SCREEN URINE NEGATIVE (NEGATIVE); CANNABINOID SCREEN, URINE NEGATIVE (NEGATIVE); COCAINE SCREEN URINE NEGATIVE (NEGATIVE); METHADONE STAT NEGATIVE (NEGATIVE); METHAMPHETAMINE SCREEN URINE S NEGATIVE (NEGATIVE); OPIATE SCREEN URINE NEGATIVE (NEGATIVE); OXYCODONE STAT NEGATIVE (NEGATIVE); PROPOXYPHENE STAT NEGATIVE (NEGATIVE); TRICYCLIC ANTIDEPRESSANTS SCRE NEGATIVE (NEGATIVE)
--- NOTE | 2020-11-19 01:45 | ED Chest Pain ---
General Chief Complaint: Chest Pain Stated Complaint: CP Source: patient, EMS, old records History of Present Illness Date Seen by Provider: Nov 18, 2020 Time Seen by Provider: 21:45 Initial Comments PT ARRIVES VIA EMS FROM HOME C/O CHEST PAIN SINCE 2099 TONIGHT--PAIN BEGAN WHILE SITTING AND WATCHING TV TOOK NTG X 2 AT HOME, WITHOUT RELIEF, SO CALLED EMS STATES PAIN WAS 9/10 EMS GAVE 324 MG ASPIRIN, PLACED 1" OF NITROPASTE WITHOUT RELIEF, THEN EMS GAVE FENTANYL 50 MCG. PT STATES PAIN DOWN TO "8 1/2" NO SHORTNESS OF BREATH NO PALPITATIONS NO SWEATS NO SWELLING IN FEET OR ANKLES HAS HAD A SLIGHT COUGH FOR THE LAST COUPLE OF DAYS NO FEVER/CHILLS PT HAS HISTORY OF CAD AND HAS HAD 1 VESSEL CABG AND STENTS X 4 LAST CARDIAC CATH DONE IN 2018 SHOWED PATENT STENTS. PT HAS HAD MULTIPLE VISITS AND ADMITS FOR THIS PROBLEM--LAST ADMIT ABOUT 4 WEEKS AGO FOR CHEST PAIN --WORK UP NEGATIVE. HAS NOT FOLLOWED UP WITH ANYONE SINCE THAT VISIT. PT ALSO SEEN HERE 10/21/20 FOR LOWER ABDOMINAL PAIN NO ACUTE PROCESS, AND DISMISSED TO HOME. PT'S PRIORITY IMMEDIATELY ON ARRIVAL IS WANTING A TV REMOTE PCP: DR. FERNANDEZ AERODYNAMICIST: DR. CASTILLO Allergies and Home Medications Allergies Coded Allergies: budesonide (Verified Allergy, Severe, angioedema, 12/06/18) formoterol (Verified Allergy, Severe, angioedema, 12/06/18) tetanus toxoid, adsorbed (Verified Allergy, Mild, hives, 12/06/18) DOROTA Inhibitors (Verified Allergy, Unknown, Angioedema, 12/06/18) Home Medications Albuterol Sulfate 2.5 Mg/3 Ml Vial.neb, 2.5 MG NEB TID PRN for SHORTNESS OF BREATH, (Reported) Albuterol Sulfate 1 Puff Puff, 2 PUFF IH PRN PRN for SHORTNESS OF BREATH, (Reported) Amlodipine Besylate 5 Mg Tablet, 5 MG PO DAILY, (Reported) Aripiprazole 30 Mg Tablet, 30 MG PO DAILY, (Reported) Aspirin 81 Mg Tab.chew, 81 MG PO DAILY, (Reported) Atorvastatin Calcium 80 Mg Tablet, 80 MG PO DAILY, (Reported) Bupropion HCl 75 Mg Tablet, 75 MG PO DAILY, (Reported) Carvedilol 6.25 Mg Tablet, 6.25 MG PO DAILY, (Reported) Clopidogrel Bisulfate 75 Mg Tablet, 75 MG PO DAILY, (Reported) Fish Oil/Dha/Epa 1 Each Capsule, 1 EACH PO DAILY, (Reported) Isosorbide Mononitrate 30 Mg Tab.er.24h, 30 MG PO DAILY, (Reported) Mirtazapine 30 Mg Tablet, 30 MG PO HS, (Reported) Montelukast Sodium 10 Mg Tablet, 10 MG PO DAILY, (Reported) Nitroglycerin 0.4 Mg Tab.subl, 0.4 MG PO UD PRN for CHEST PAIN, (Reported) Orphenadrine Citrate 100 Mg Tablet.er, 100 MG PO TID Prescribed by: DEBBIE ESPINOSA on 10/21/20 750 Ranolazine 1,000 Mg Tab.er.12h, 1,000 MG PO DAILY, (Reported) Sertraline HCl 100 Mg Tablet, 200 MG PO DAILY, (Reported) TAKES 2 (100MG) TABS DAILY Tramadol HCl 50 Mg Tablet, 50 MG PO Q4H Prescribed by: DEBBIE ESPINOSA on 10/21/20 124 Patient Home Medication List Home Medication List Reviewed: Yes Review of Systems Review of Systems Constitutional: no symptoms reported EENTM: No Symptoms Reported Respiratory: See HPI, Cough; Denies Shortness of Air Cardiovascular: See HPI, Chest Pain; Denies Edema, Denies Irregular Heart Rate, Denies Lightheadedness, Denies Palpitations, Denies Syncope Gastrointestinal: No Symptoms Reported; Denies Abdominal Pain, Denies Nausea, Denies Vomiting Genitourinary: No Symptoms Reported Musculoskeletal: no symptoms reported Skin: no symptoms reported Psychiatric/Neurological: No Symptoms Reported Endocrine: No Symptoms Reported Hematologic/Lymphatic: No Symptoms Reported Past Cszipko-Hrxhpj-Okmdyh Hx Past Med/Social Hx: Reviewed and Corrections made Patient Social History Alcohol Use: Past History Drug of Choice: DENIES Smoking Status: Former Smoker Type Used: Cigarettes Former Smoker, Quit: Dec 16, 2017 2nd Hand Smoke Exposure: Yes Recent Hopitalizations: No Immunizations Up To Date Tetanus Booster (TDap): Unknown PED Vaccines UTD: No Date of Pneumonia Vaccine: Apr 26, 2020 Date of Influenza Vaccine: Apr 26, 2020 Seasonal Allergies Seasonal Allergies: No Past Medical History Surgeries: Yes Abdominal, Cardiac, CABG, Coronary Stent, Tonsillectomy, Vascular Surgery Respiratory: Yes (WEARS O2 AT 5L/NC CONTINUOUSLY. RUL PULMONARY NODULE) Pneumonia, Chronic Bronchitis, COPD Currently Using CPAP: No Currently Using BIPAP: No Cardiac: Yes (STENT X1/ANGIO L EXT ILIAC ART;CABG/STENT X4;CAROTID DZ;CHF;CARDIAC ARREST) Coronary Artery Disease, Deep Vein Thrombosis, Heart Attack, High Cholesterol, Hypertension, Peripheral Vascular Neurological: Yes Stroke Reproductive Disorders: No Sexually Transmitted Disease: No HIV/AIDS: No Genitourinary: No Gastrointestinal: Yes Abdominal Hernia, Gastroesophageal Reflux, Diverticulosis, Ulcer Musculoskeletal: Yes Arthritis, Chronic Back Pain Endocrine: No HEENT: No Loss of Vision: Denies Hearing Impairment: Denies Cancer: No Psychosocial: Yes Sleep Difficulties, Anxiety, Schizophrenia, Depression Integumentary: No Blood Disorders: No Adverse Reaction/Blood Tranf: No Family Medical History Diabetes mellitus 19 MOTHER FH: heart disease 19 FATHER No Pertinent Family Hx, Heart Disease, Diabetes SOCIAL HX: -HX OF ALCOHOL ABUSE--CLAIMS HE QUIT YEARS AGO -DENIES DRUG USE -SMOKED 2-3 PPD--QUIT 2017 PSH: -CABG--1 VESSEL BYPASS -CARDIAC CATHS AND STENTS X 4, WITH ANGIOPLASTIES--LAST CARDIAC CATH 03/2018--PATENT STENT TO PROXIMAL LAD TO FIRST DIAGONAL, COMPLETE OCCLUSION OF MID LAD AND TO VEIN GRAFT TO LAD; EF 45-50%--NO INTERVENTION DONE AT THAT TIME AND FINDINGS WERE THE SAME THOSE FOUND ON CARDIAC CATH IN 2014 -ANGIOPLASTY AND STENT X 1 TO LEFT LEG/EXTERNAL ILIAC ARTERY 02/2017 -LEFT INGUINAL HERNIA REPAIR -TONSILLECTOMY ADDITIONAL PMH: -HX OF CARDIAC ARREST -CAROTID DISEASE--SEVERE ON RIGHT -RBBB ; LAFB Physical Exam Vital Signs Vital Signs - First Documented 11/18/20 21:42 Temp 36.9 Pulse 98 Resp 18 B/P (MAP) 165/81 (109) Capillary Refill : Height, Weight, BMI Height: 5'8.00" Weight: 174lbs. 0.0oz. 78.119761vv; 27.00 BMI Method:Stated General Appearance: No Apparent Distress, WD/WN, Other (UNKEMPT, DOES NOT APPEAR TO BE IN ANY DISCOMFORT OR DISTRESS) HEENT: Other (EDENTULOUS, CONSTANT LIP LICKING/GUMMING LIPS) Neck: Normal Inspection Respiratory: Normal Breath Sounds, No Accessory Muscle Use, No Respiratory Distress, Other (MILD MID CHEST TENDERNESS--PALPATION REPRODUCES PAIN ) Cardiovascular: Regular Rate, Rhythm, No Edema, No Murmur Gastrointestinal: Non Tender, Soft Extremity: Normal Inspection, No Pedal Edema Neurologic/Psychiatric: Alert, Oriented x3, No Motor/Sensory Deficits, Normal 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, 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 Norm as Tested Skin: Normal Color, Warm/Dry Progress/Results/Core Measures Results/Orders Lab Results Laboratory Tests Test 11/18/20 21:42 11/18/20 23:00 11/19/20 01:10 Range/Units White Blood Count 4.4 4.3-11.0 10^3/uL Red Blood Count 3.44 L 4.30-5.52 10^6/uL Hemoglobin 10.1 L 13.3-17.7 g/dL Hematocrit 34 L 40-54 % Mean Corpuscular Volume 100 H 80-99 fL Mean Corpuscular Hemoglobin 29 25-34 pg Mean Corpuscular Hemoglobin Concent 29 L 32-36 g/dL Red Cell Distribution Width 13.0 10.0-14.5 % Platelet Count 133 130-400 10^3/uL Mean Platelet Volume 10.7 9.0-12.2 fL Immature Granulocyte % (Auto) 0 % Neutrophils (%) (Auto) 59 42-75 % Lymphocytes (%) (Auto) 29 12-44 % Monocytes (%) (Auto) 9 0-12 % Eosinophils (%) (Auto) 2 0-10 % Basophils (%) (Auto) 0 0-10 % Neutrophils # (Auto) 2.6 1.8-7.8 10^3/uL Lymphocytes # (Auto) 1.3 1.0-4.0 10^3/uL Monocytes # (Auto) 0.4 0.0-1.0 10^3/uL Eosinophils # (Auto) 0.1 0.0-0.3 10^3/uL Basophils # (Auto) 0.0 0.0-0.1 10^3/uL Immature Granulocyte # (Auto) 0.0 0.0-0.1 10^3/uL Sodium Level 142 135-145 MMOL/L Potassium Level 4.1 3.6-5.0 MMOL/L Chloride Level 92 L 98-107 MMOL/L Carbon Dioxide Level 42 H 21-32 MMOL/L Anion Gap 8 5-14 MMOL/L Blood Urea Nitrogen 9 7-18 MG/DL Creatinine 1.11 0.60-1.30 MG/DL Estimat Glomerular Filtration Rate > 60 BUN/Creatinine Ratio 8 Glucose Level 120 H 70-105 MG/DL Calcium Level 9.0 8.5-10.1 MG/DL Corrected Calcium 9.2 8.5-10.1 MG/DL Magnesium Level 1.9 1.6-2.4 MG/DL Total Bilirubin 0.2 0.1-1.0 MG/DL Aspartate Amino Transf (AST/SGOT) 15 5-34 U/L Alanine Aminotransferase (ALT/SGPT) 15 0-55 U/L Alkaline Phosphatase 89 40-136 U/L Myoglobin 50.3 10.0-92.0 NG/ML Troponin I < 0.028 < 0.028 <0.028 NG/ML B-Type Natriuretic Peptide 27.6 <100.0 PG/ML Total Protein 6.7 6.4-8.2 GM/DL Albumin 3.8 3.2-4.5 GM/DL Serum Alcohol < 10 <10 MG/DL Urine Opiates Screen NEGATIVE NEGATIVE Urine Oxycodone Screen NEGATIVE NEGATIVE Urine Methadone Screen NEGATIVE NEGATIVE Urine Propoxyphene Screen NEGATIVE NEGATIVE Urine Barbiturates Screen NEGATIVE NEGATIVE Ur Tricyclic Antidepressants Screen NEGATIVE NEGATIVE Urine Phencyclidine Screen NEGATIVE NEGATIVE Urine Amphetamines Screen NEGATIVE NEGATIVE Urine Methamphetamines Screen NEGATIVE NEGATIVE Urine Benzodiazepines Screen NEGATIVE NEGATIVE Urine Cocaine Screen NEGATIVE NEGATIVE Urine Cannabinoids Screen NEGATIVE NEGATIVE My Orders Orders - DEBBIE ESPINOSA DO Cbc With Automated Diff (11/18/20 22:01) Magnesium (11/18/20 22:01) Chest 1 View, Ap/Pa Only (11/18/20 22:01) Ekg Tracing (11/18/20 22:01) Comprehensive Metabolic Panel (11/18/20 22:01) Myoglobin Serum (11/18/20 22:01) O2 (11/18/20 22:01) Monitor-Rhythm Ecg Trace Only (11/18/20 22:01) Ed Iv/Invasive Line Start (11/18/20 22:01) BNP (11/18/20 22:01) Troponin I (11/18/20 22:01) Alcohol (11/18/20 22:35) Drug Screen Stat (Urine) (11/18/20 22:35) Ketorolac Injection (Toradol Injection) (11/18/20 22:45) Ekg Tracing (11/19/20 00:30) Troponin I (11/19/20 00:30) Medications Given in ED Vital Signs/I&O 11/18/20 11/18/20 11/18/20 11/19/20 21:42 21:42 21:42 01:50 Temp 36.9 36.6 Pulse 98 80 Resp 18 20 B/P (MAP) 165/81 (109) 143/77 Pulse Ox 100 100 100 O2 Delivery Nasal Cannula Nasal Cannula Nasal Cannula Nasal Cannula O2 Flow Rate 5.00 5.0 5.00 5.00 Progress Progress Note : Progress Note RATES PAIN 8 1/2 ON ARRIVAL GIVEN TORADOL WITH COMPLETE RELIEF OF PAIN PT HAD NO COMPLAINTS FOR REMAINDER OF ER STAY MIDNIGHT--PT STATES HE IS READY TO GO HOME, STATES HE FEELS FINE NOW. PT OBSERVED IN ER AND 3 HOUR REPEAT TROPONIN AND EKG DONE, AND BOTH ARE UNCHANGED. PT IS SYMPTOM-FREE AT DISMISSAL Initial ECG Impression Date: Nov 18, 2020 Initial ECG Impression Time: 21:46 Initial ECG Rate: 88 Initial ECG Rhythm: Normal Sinus Initial ECG Comparisson: Unchanged EKG : EKG Time: 00:57 Rate: 81 Rhythm: Normal Sinus ECG Comparisson: Unchanged Diagnostic Imaging Comments CXR--NO ACUTE PROCESS, PENDING RADIOLOGIST REVIEW Reviewed: Reviewed by Me Departure Impression Primary Impression: Chest pain Disposition: 01 HOME, SELF-CARE Condition: Improved Departure-Patient Inst. Decision time for Depature: 01:42 Referrals: BRANDON RODAS MD (PCP/Family) Primary Care Physician Patient Instructions: Chest Pain (DC) Add. Discharge Instructions: CONTINUE YOUR REGULAR MEDICATIONS PRESCRIBED FOLLOW UP WITH DR. CASTILLO NEXT WEEK FOR FURTHER CARE, RETURN TO ER IF SYMPTOMS RETURN. All discharge instructions reviewed with patient and/or family. Voiced understanding. DEBBIE ESPINOSA DO Nov 19, 2020 01:45
[2020-11-19 01:50] VITALS: BP 143/77
--- NOTE | 2020-11-19 07:28 | Diagnostic Imaging Report ---
HISTORY: Chest pain COMPARISON: 10/21/2020 and prior's TECHNIQUE: Frontal view chest FINDINGS: There is linear opacity at the left lung base which appears similar to 06/28/2020, but increased since October 2020. No other consolidation is seen. There is mild elevation of the right hemidiaphragm. Sternotomy wires and post-CABG changes are seen. The cardiac silhouette is normal in size. No pneumothorax is seen. IMPRESSION: 1. Left basilar linear opacity, most likely atelectasis although underlying infiltrate is difficult to exclude. Report was faxed and called to [facility] ANEUDY Pierre, nurse c/o Dr. Valle by renato at 7:25am. Dictated by: Dictated on workstation # [id number]
== END 2020-11-19 01:50 | disposition home or self-care (01) ==
LOC: EDUNIT# 21:32 → ER 21:33
DX: R07.9 Chest pain, unspecified (principal); I25.2 Old myocardial infarction; F20.9 Schizophrenia, unspecified; I10 Essential (primary) hypertension; E78.00 Pure hypercholesterolemia, unspecified; I25.10 Atherosclerotic heart disease of native coronary artery without angina pectoris; J44.9 Chronic obstructive pulmonary disease, unspecified; F41.9 Anxiety disorder, unspecified; Z86.73 Personal history of transient ischemic attack (TIA), and cerebral infarction without residual deficits; Z87.891 Personal history of nicotine dependence; Z79.82 Long term (current) use of aspirin; Z79.899 Other long term (current) drug therapy
CPT/HCPCS: 71045; 80053; 80306; 83735; 83874; 83880; 84484 ×2; 85025; 93005 ×2; 93041; 99284; G0480; 36415; 80320

== ENCOUNTER 2020-12-26 03:37 | Emergency (ER) | payer MEDICARE, MEDICAID ==
[~2020-12-26] VITALS: Ht 172 cm; Wt 85.7 kg
[~2020-12-26 03:37] MED LIST changes: -ARIP10TA17 PO; +ARIP10TA55 PO; +MIRT-68 PO; +MIRT-69 PO; -MIRT15TA6 PO; -MIRT30TA6 PO
[2020-12-26] MEDS ORDERED: RT-ALBUTEROL/IPRATROPIUM 3 ML (DUONEB) VIAL INH ONE (04:00)
[2020-12-26 04:07] LABS: BASOPHILS % (AUTO) 0 % (0-10); HEMOGLOBIN 10.3 g/dL (13.3-17.7)
[2020-12-26 04:09] LABS: EOSINOPHILS # (AUTO) 0.1 10^3/uL (0.0-0.3); EOSINOPHILS % (AUTO) 1 % (0-10); HEMATOCRIT 35 % (40-54); LYMPHOCYTES # (AUTO) 1.4 10^3/uL (1.0-4.0); LYMPHOCYTES % (AUTO) 30 % (12-44); MEAN CORPUSCULAR HEMOGLOBIN 30 pg (25-34); MEAN CORPUSCULAR HGB CONC 29 g/dL (32-36); MEAN CORPUSCULAR VOLUME 101 fL (80-99); MEAN PLATELET VOLUME 10.4 fL (9.0-12.2); MONOCYTES # (AUTO) 0.5 10^3/uL (0.0-1.0); MONOCYTES % (AUTO) 11 % (0-12); NEUTROPHILS # (AUTO) 2.6 10^3/uL (1.8-7.8); NEUTROPHILS % (AUTO) 58 % (42-75); PLATELET COUNT 135 10^3/uL (130-400); WHITE BLOOD COUNT 4.6 10^3/uL (4.3-11.0)
[2020-12-26 04:21] LABS: ALBUMIN 3.8 GM/DL (3.2-4.5); CHLORIDE 92 MMOL/L (98-107); POTASSIUM 4.3 MMOL/L (3.6-5.0); SODIUM 142 MMOL/L (135-145)
[2020-12-26 04:22] LABS: CALCIUM 9.1 MG/DL (8.5-10.1)
[2020-12-26 04:24] LABS: GLUCOSE 112 MG/DL (70-105); INR 0.9 (0.8-1.4); PROTHROMBIN TIME PATIENT 12.1 SEC (12.2-14.7); TOTAL PROTEIN 6.6 GM/DL (6.4-8.2)
[2020-12-26 04:25] LABS: BILIRUBIN,TOTAL 0.3 MG/DL (0.1-1.0); CARBON DIOXIDE 43 MMOL/L (21-32)
[2020-12-26 04:27] LABS: ALKALINE PHOSPHATASE 101 U/L (40-136); CREATININE SERUM 0.82 MG/DL (0.60-1.30); GFR ESTIMATED > 60
[2020-12-26 04:28] LABS: BUN/CREATININE RATIO 9
[2020-12-26 04:30] LABS: ALANINE AMINOTRANSFERASE 20 U/L (0-55); MAGNESIUM 1.7 MG/DL (1.6-2.4)
[2020-12-26 04:53] LABS: BAND NEUTROPHILS 1 %; BURR CELLS MODERATE; EOSINOPHILS % (MANUAL) 1 %; LYMPHOCYTES % (MANUAL) 33 %; MONOCYTES % (MANUAL) 9 %; NEUTROPHILS % (MANUAL) 56 %
--- NOTE | 2020-12-26 07:02 | ED Chest Pain ---
General Chief Complaint: Chest Pain Stated Complaint: CP Nursing Triage Note: PT ARRIVED VIA EMS, CP BEGAN AT 2230 PER PT. USED [facility] HOME [facility] AND TRIED REST, PAIN CONTINUED SO HE CONTACTED EMS. EMS GAVE NITRO PASTE EN ROUTE Source: patient, EMS Exam Limitations: no limitations History of Present Illness Date Seen by Provider: Dec 26, 2020 Time Seen by Provider: 03:40 Initial Comments This 65-year-old gentleman with history of coronary artery disease status post CABG oxygen dependent COPD presents to the emergency room with chest pain that started around 22:30. He took 2 baby aspirin. Pain did not resolve but he went to sleep. Pain woke him up again at around 03:30. He took an additional 2 aspirin. He could not find his nitroglycerin so he called EMS. They applied Nitropaste which improved his pain up minimally from 8/10 down to 7/10. He is noted to be quite wheezy suggesting COPD exacerbation. He denies any new cough, fever, or other symptoms of acute infectious illness. Allergies and Home Medications Allergies Coded Allergies: budesonide (Verified Allergy, Severe, angioedema, 12/06/18) formoterol (Verified Allergy, Severe, angioedema, 12/06/18) tetanus toxoid, adsorbed (Verified Allergy, Mild, hives, 12/06/18) DOROTA Inhibitors (Verified Allergy, Unknown, Angioedema, 12/06/18) Home Medications Albuterol Sulfate 1 Puff Puff, 2 PUFF IH PRN PRN for SHORTNESS OF BREATH, (Reported) Amlodipine Besylate 5 Mg Tablet, 5 MG PO DAILY, (Reported) Aripiprazole 30 Mg Tablet, 30 MG PO DAILY, (Reported) Aspirin 81 Mg Tab.chew, 81 MG PO DAILY, (Reported) Atorvastatin Calcium 80 Mg Tablet, 80 MG PO DAILY, (Reported) LAST FILLED 07-25-2020 #90/90 DAY SUPPLY Bupropion HCl 75 Mg Tablet, 75 MG PO DAILY, (Reported) Carvedilol 6.25 Mg Tablet, 6.25 MG PO DAILY, (Reported) Clopidogrel Bisulfate 75 Mg Tablet, 75 MG PO DAILY, (Reported) Fish Oil/Dha/Epa 1 Each Capsule, 1 EACH PO DAILY, (Reported) Isosorbide Mononitrate 30 Mg Tab.er.24h, 30 MG PO DAILY, (Reported) Mirtazapine 30 Mg Tablet, 30 MG PO HS, (Reported) Montelukast Sodium 10 Mg Tablet, 10 MG PO DAILY, (Reported) Nitroglycerin 0.4 Mg Tab.subl, 0.4 MG PO UD PRN for CHEST PAIN, (Reported) Prednisone 10 Mg Tab.ds.pk, 10 MG PO DAILY Take 6 tabs(60mg)daily,decrease by 1 tab(10MG)daily. Prescribed by: ROHIT SAL on 11/27/20 1233 Ranolazine 1,000 Mg Tab.er.12h, 1,000 MG PO DAILY, (Reported) Sertraline HCl 100 Mg Tablet, 200 MG PO DAILY, (Reported) TAKES 2 (100MG) TABS DAILY Patient Home Medication List Home Medication List Reviewed: Yes Review of Systems Review of Systems Constitutional: no symptoms reported EENTM: No Symptoms Reported Respiratory: See HPI Cardiovascular: See HPI Gastrointestinal: No Symptoms Reported Genitourinary: No Symptoms Reported Skin: no symptoms reported Psychiatric/Neurological: No Symptoms Reported Endocrine: No Symptoms Reported Hematologic/Lymphatic: No Symptoms Reported Past Glqhlpy-Xlvbni-Povchm Hx Patient Social History Tobacco Use?: No Smoking Status: Former Smoker Substance use?: No Immunizations Up To Date Tetanus Booster (TDap): Unknown PED Vaccines UTD: No Influenza Vaccine Up-to-Date: Yes; Up-to-Date Seasonal Allergies Seasonal Allergies: No Past Medical History Surgeries: Yes (LEFT INGUINAL HERNIA;CABG WITH STENTS IN HEART AND LEG) Abdominal, Cardiac, CABG, Coronary Stent, Tonsillectomy, Vascular Surgery Respiratory: Yes (WEARS O2 AT 5L/NC CONTINUOUSLY. RUL PULMONARY NODULE) Pneumonia, Chronic Bronchitis, COPD Currently Using CPAP: No Currently Using BIPAP: No Cardiac: Yes (STENT X1/ANGIO L EXT ILIAC ART;CABG/STENT X4;CAROTID DZ;CHF;CARDIAC ARREST) Coronary Artery Disease, Deep Vein Thrombosis, Heart Attack, High Cholesterol, Hypertension, Peripheral Vascular Neurological: Yes Stroke Reproductive Disorders: No Sexually Transmitted Disease: No HIV/AIDS: No Genitourinary: No Gastrointestinal: Yes Abdominal Hernia, Gastroesophageal Reflux, Diverticulosis, Ulcer Musculoskeletal: Yes Arthritis, Chronic Back Pain Endocrine: No HEENT: No Loss of Vision: Denies Hearing Impairment: Denies Cancer: No Psychosocial: Yes Sleep Difficulties, Anxiety, Schizophrenia, Depression Integumentary: No Blood Disorders: No Adverse Reaction/Blood Tranf: No Family Medical History Diabetes mellitus 19 MOTHER FH: heart disease 19 FATHER Heart Disease, Diabetes SOCIAL HX: -HX OF ALCOHOL ABUSE--CLAIMS HE QUIT YEARS AGO -DENIES DRUG USE -SMOKED 2-3 PPD--QUIT 2017 PSH: -CABG--1 VESSEL BYPASS -CARDIAC CATHS AND STENTS X 4, WITH ANGIOPLASTIES--LAST CARDIAC CATH 03/2018--PATENT STENT TO PROXIMAL LAD TO FIRST DIAGONAL, COMPLETE OCCLUSION OF MID LAD AND TO VEIN GRAFT TO LAD; EF 45-50%--NO INTERVENTION DONE AT THAT TIME AND FINDINGS WERE THE SAME THOSE FOUND ON CARDIAC CATH IN 2014 -ANGIOPLASTY AND STENT X 1 TO LEFT LEG/EXTERNAL ILIAC ARTERY 02/2017 -LEFT INGUINAL HERNIA REPAIR -TONSILLECTOMY ADDITIONAL PMH: -HX OF CARDIAC ARREST -CAROTID DISEASE--SEVERE ON RIGHT -RBBB ; LAFB Physical Exam Vital Signs Vital Signs - First Documented 12/26/20 03:40 Temp 36.1 Pulse 103 Resp 22 B/P (MAP) 130/88 (102) Pulse Ox 100 O2 Delivery Room Air Capillary Refill : Less Than 3 Seconds Height, Weight, BMI Height: 5'8.00" Weight: 174lbs. 0.0oz. [id number]; 28.00 BMI Method:Stated General Appearance: No Apparent Distress, WD/WN HEENT: PERRL/EOMI, Normal ENT Inspection Neck: Normal Inspection Respiratory: No Accessory Muscle Use, No Respiratory Distress, Wheezing Cardiovascular: Regular Rate, Rhythm, No Edema, No Murmur, Normal Peripheral Pulses Gastrointestinal: Normal Bowel Sounds, Non Tender, Soft Extremity: Normal Inspection, No Pedal Edema Neurologic/Psychiatric: Alert, Oriented x3, No Motor/Sensory Deficits, Normal Mood/Affect, game manager II-XII Norm as Tested Skin: Normal Color, Warm/Dry Progress/Results/Core Measures Results/Orders Lab Results Laboratory Tests Test 12/26/20 03:57 12/26/20 06:15 Range/Units White Blood Count 4.6 4.3-11.0 10^3/uL Red Blood Count 3.46 L 4.30-5.52 10^6/uL Hemoglobin 10.3 L 13.3-17.7 g/dL Hematocrit 35 L 40-54 % Mean Corpuscular Volume 101 H 80-99 fL Mean Corpuscular Hemoglobin 30 25-34 pg Mean Corpuscular Hemoglobin Concent 29 L 32-36 g/dL Red Cell Distribution Width 12.4 10.0-14.5 % Platelet Count 135 130-400 10^3/uL Mean Platelet Volume 10.4 9.0-12.2 fL Immature Granulocyte % (Auto) 0 % Neutrophils (%) (Auto) 58 42-75 % Lymphocytes (%) (Auto) 30 12-44 % Monocytes (%) (Auto) 11 0-12 % Eosinophils (%) (Auto) 1 0-10 % Basophils (%) (Auto) 0 0-10 % Neutrophils # (Auto) 2.6 1.8-7.8 10^3/uL Lymphocytes # (Auto) 1.4 1.0-4.0 10^3/uL Monocytes # (Auto) 0.5 0.0-1.0 10^3/uL Eosinophils # (Auto) 0.1 0.0-0.3 10^3/uL Basophils # (Auto) 0.0 0.0-0.1 10^3/uL Immature Granulocyte # (Auto) 0.0 0.0-0.1 10^3/uL Neutrophils % (Manual) 56 % Lymphocytes % (Manual) 33 % Monocytes % (Manual) 9 % Eosinophils % (Manual) 1 % Band Neutrophils 1 % Percent Immature Platelet Fraction 4.2 0.0-7.6 % Macrocytosis SLIGHT Dave Cells MODERATE Prothrombin Time 12.1 L 12.2-14.7 SEC INR Comment 0.9 0.8-1.4 Activated Partial Thromboplast Time 24 24-35 SEC Sodium Level 142 135-145 MMOL/L Potassium Level 4.3 3.6-5.0 MMOL/L Chloride Level 92 L 98-107 MMOL/L Carbon Dioxide Level 43 H 21-32 MMOL/L Anion Gap 7 5-14 MMOL/L Blood Urea Nitrogen 7 7-18 MG/DL Creatinine 0.82 0.60-1.30 MG/DL Estimat Glomerular Filtration Rate > 60 BUN/Creatinine Ratio 9 Glucose Level 112 H 70-105 MG/DL Calcium Level 9.1 8.5-10.1 MG/DL Corrected Calcium 9.3 8.5-10.1 MG/DL Magnesium Level 1.7 1.6-2.4 MG/DL Total Bilirubin 0.3 0.1-1.0 MG/DL Aspartate Amino Transf (AST/SGOT) 17 5-34 U/L Alanine Aminotransferase (ALT/SGPT) 20 0-55 U/L Alkaline Phosphatase 101 40-136 U/L Myoglobin 35.5 10.0-92.0 NG/ML Troponin I < 0.028 < 0.028 <0.028 NG/ML Total Protein 6.6 6.4-8.2 GM/DL Albumin 3.8 3.2-4.5 GM/DL My Orders Orders - IRIS NELSON MD Cbc With Automated Diff (12/26/20 03:45) Magnesium (12/26/20 03:45) Chest 1 View, Ap/Pa Only (12/26/20 03:45) Ekg Tracing (12/26/20 03:45) Comprehensive Metabolic Panel (12/26/20 03:45) Myoglobin Serum (12/26/20 03:45) Protime With Inr (12/26/20 03:45) Partial Thromboplastin Time (12/26/20 03:45) O2 (12/26/20 03:45) Monitor-Rhythm Ecg Trace Only (12/26/20 03:45) Lipid Panel (12/27/20 06:00) Ed Iv/Invasive Line Start (12/26/20 03:45) Troponin I (12/26/20 03:45) Albuterol/Ipra Inhalation Soln (Duoneb I (12/26/20 04:00) Svn Small Volume Nebulizer (12/26/20 03:52) Manual Differential (12/26/20 03:57) Troponin I (12/26/20 06:00) Medications Given in ED Current Medications Medications Dose Ordered Sig/Shira Route Start Time Stop Time Status Last Admin Dose Admin Albuterol/ Ipratropium 3 ml ONCE ONCE INH 12/26/20 04:00 12/26/20 04:01 DC 12/26/20 04:04 3 ML Vital Signs/I&O 12/26/20 12/26/20 12/26/20 03:40 03:42 03:42 Temp 36.1 Pulse 103 Resp 22 B/P (MAP) 130/88 (102) Pulse Ox 100 98 O2 Delivery Room Air Nasal Cannula Nasal Cannula O2 Flow Rate 3.0 3.00 Blood Pressure Mean: 102 Progress Progress Note #1: Time: 07:20 Progress Note Patient's pain improved to 3/10 after nebulizer treatment. It eventually dissipated to 0 and he was pain-free at the time of discharge. Repeat troponin was negative. Patient requested discharge home. Close follow-up with Dr. Carrion was recommended and return precautions were provided. Progress Note #2: Progress Note Shallow stage II decubitus ulcer was found on the left buttock by nursing staff. It was dressed with a padded dressing. Nursing staff reported appeared in the healing stages. Nursing staff instructed the patient on offloading this wound. Initial ECG Impression Date: Dec 26, 2020 Initial ECG Impression Time: 03:46 Initial ECG Rate: 100 Initial ECG Rhythm: S.Tach Comment Mild sinus tachycardia with no ST elevation or depression. No significant abnormal intervals or axis deviation. No significant change from prior. Diagnostic Imaging Diagonstic Imaging: Xray Plain Films/CT/US/NM/MRI: chest Comments Chest x-ray viewed by me and report reviewed. See report below: NAME: [facility] REC#: [id number] PT STATUS: REG ER : 1955 PHYSICIAN: IRIS NELSON MD ADMIT DATE: 12/26/20/ER Draft Date of Exam:12/26/20 CHEST 1 VIEW, AP/PA ONLY EXAMINATION: Chest radiograph, portable AP view. DATE: 12/26/2020 4:08 AM INDICATION: 65-year-old male, chest pain, shortness of breath, cough. COMPARISON: November 18, 2020. FINDINGS: There are median sternotomy wires. Stable overall appearance of the cardiomediastinal silhouette. There is no identified pneumothorax. There is elevation of the right hemidiaphragm. There is mild blunting of the right lateral costophrenic angle similar to the comparison exam. There are minimal linear opacities in the left midlung most likely reflecting subsegmental atelectasis. IMPRESSION: 1. No identified interval acute cardiopulmonary abnormality. 2. Redemonstrated elevation of the right hemidiaphragm. 3. Linear opacities in left midlung most likely reflecting subsegmental atelectasis. Dictated on workstation # [id number] Dict: 12/26/20 0617 Trans: 12/26/20 0700 ABIGAIL [id number] Interpreted by: KUN LOCKWOOD MD Departure Impression Primary Impression: Chest pain Qualified Codes: R07.9 - Chest pain, unspecified Additional Impressions: CAD (coronary artery disease) Qualified Codes: I25.10 - Atherosclerotic heart disease of ruby coronary artery without angina pectoris COPD exacerbation Decubitus ulcer Qualified Codes: L89.322 - Pressure ulcer of left buttock, stage 2 Disposition: 01 HOME, SELF-CARE Condition: Improved Departure-Patient Inst. Decision time for Depature: 07:14 Referrals: BRANDON RODAS MD (PCP/Family) Primary Care Physician Patient Instructions: Chest Pain Add. Discharge Instructions: Contact Dr. Carrion's office when they open this morning to arrange follow-up and receive further instructions. Continue your medications as previously directed. Return to the ER if you have recurrent episodes of chest pain, especially if they are not responsive to nitroglycerin. Call with questions or concerns. Use your inhaler or nebulizer every 4 hours as needed for shortness of breath or wheezing. All discharge instructions reviewed with patient and/or family. Voiced understanding. Copy Copies To 1: BRANDON RODAS MD Copies To 2: JOSHUA CARRION MD, JOSHUA T MD Dec 26, 2020 07:02
[2020-12-26 07:19] VITALS: BP 159/80
== END 2020-12-26 07:30 | disposition home or self-care (01) ==
LOC: EDUNIT# 03:37 → ER 03:38
DX: I25.10 Atherosclerotic heart disease of native coronary artery without angina pectoris (principal); J44.1 Chronic obstructive pulmonary disease with (acute) exacerbation; L89.322 Pressure ulcer of left buttock, stage 2; I25.2 Old myocardial infarction; I10 Essential (primary) hypertension; F41.9 Anxiety disorder, unspecified; F32.9 Major depressive disorder, single episode, unspecified; F20.9 Schizophrenia, unspecified; E78.00 Pure hypercholesterolemia, unspecified; Z95.5 Presence of coronary angioplasty implant and graft; Z95.1 Presence of aortocoronary bypass graft; Z86.718 Personal history of other venous thrombosis and embolism; Z86.73 Personal history of transient ischemic attack (TIA), and cerebral infarction without residual deficits; Z87.891 Personal history of nicotine dependence; Z79.82 Long term (current) use of aspirin; Z79.899 Other long term (current) drug therapy; Z79.52 Long term (current) use of systemic steroids; Z79.01 Long term (current) use of anticoagulants
CPT/HCPCS: 36415; 71045; 80053; 83735; 83874; 84484; 85007; 85027; 85610; 85730; 93005; 93041

== ENCOUNTER 2021-01-20 22:28 | Emergency (ER) | payer MEDICARE, MEDICAID ==
[~2021-01-20] VITALS: Ht 172 cm; Wt 85.7 kg
[2021-01-20 22:54] LABS: BASOPHILS % (AUTO) 0 % (0-10); HEMOGLOBIN 10.4 g/dL (13.3-17.7)
[2021-01-20 22:56] LABS: EOSINOPHILS # (AUTO) 0.2 10^3/uL (0.0-0.3); EOSINOPHILS % (AUTO) 3 % (0-10); HEMATOCRIT 35 % (40-54); LYMPHOCYTES # (AUTO) 1.8 10^3/uL (1.0-4.0); LYMPHOCYTES % (AUTO) 29 % (12-44); MEAN CORPUSCULAR HEMOGLOBIN 30 pg (25-34); MEAN CORPUSCULAR HGB CONC 30 g/dL (32-36); MEAN CORPUSCULAR VOLUME 99 fL (80-99); MEAN PLATELET VOLUME 10.1 fL (9.0-12.2); MONOCYTES # (AUTO) 0.6 10^3/uL (0.0-1.0); MONOCYTES % (AUTO) 9 % (0-12); NEUTROPHILS # (AUTO) 3.6 10^3/uL (1.8-7.8); NEUTROPHILS % (AUTO) 59 % (42-75); PLATELET COUNT 135 10^3/uL (130-400); WHITE BLOOD COUNT 6.1 10^3/uL (4.3-11.0)
[2021-01-20 23:06] LABS: ALBUMIN 3.9 GM/DL (3.2-4.5)
[2021-01-20 23:07] LABS: INR 0.9 (0.8-1.4); POTASSIUM 4.3 MMOL/L (3.6-5.0); PROTHROMBIN TIME PATIENT 12.3 SEC (12.2-14.7)
[2021-01-20 23:09] LABS: TOTAL PROTEIN 7.1 GM/DL (6.4-8.2)
[2021-01-20 23:11] LABS: BILIRUBIN,TOTAL 0.3 MG/DL (0.1-1.0)
[2021-01-20 23:13] LABS: CREATININE SERUM 0.9 MG/DL (0.60-1.30)
[2021-01-20] MEDS ORDERED: NITROGLYCERIN 2% OINT 1 GM UNIT DOSE PACKET TOP ONE (23:15)
[2021-01-20 23:16] LABS: MAGNESIUM 1.9 MG/DL (1.6-2.4)
[2021-01-20 23:25] LABS: CREATINE KINASE MB 1.8 NG/ML (<6.6)
[2021-01-20] MEDS ORDERED: hydrALAZINE (APESOLINE) 20 MG/ML VIAL IV ONE (23:45)
--- NOTE | 2021-01-20 23:51 | ED Chest Pain ---
General Chief Complaint: Chest Pain Stated Complaint: CP Nursing Triage Note: PT PRESENTS FROM [place]IC EVENT VIA EMS TO ROOM SEVEN WITH A C/O CP THAT ONSET AROUND 0 TONIGHT. DENIES RADIATION, DENIES SOB OR NV. Source: patient, old records History of Present Illness Date Seen by Provider: Jan 20, 2021 Time Seen by Provider: 22:35 Initial Comments PT ARRIVES VIA EMS PT HAS BEEN AT [facility], AND STOOD UP AND FELT DIZZY AND " PASSED OUT FOR A SECOND" NO INJURY, AND DID NOT FALL DOWN. STATES HE SAT BACK DOWN THEN STARTED HAVING CHEST PAIN RATES PAIN 01/16 EMS GAVE 3 BABY ASPIRIN, PT HAD TAKEN 1 BABY ASPIRIN EMS GAVE NTG SL X 1--NO RELIEF OF PAIN BP WAS IN 180'S SYSTOLIC FOR EMS. PT HAS COPD AND IS ON O2 AT 5L/NC CONTINUOUSLY, PT HAD RAN OUT OF HIS PORTABLE OXYGEN JUST PRIOR TO THE ONSET OF THESE SYMPTOMS NO SHORTNESS OF BREATH AT THIS TIME NO FEVER/SWEATS/CHILLS NO SWELLING IN LEGS/FEET NO SIGNIFICANT COUGH NO HEADACHE NO VISION CHANGES NO PARESTHESIAS OR MOTOR DEFICITS NO PALPITATIONS NO DIZZINESS AT THIS TIME OR SINCE HE "PASSED OUT" THIS IS FREQUENT PROBLEM FOR PT, WITH A MULTITUDE OF VISITS HERE FOR CHEST PAIN AND COPD RELATED ISSUES PT HAS HISTORY OF CAD AND CARDIAC STENTS PT REPORTS THAT DR. CASTILLO HAS DISCUSSED WITH HIM AFTER LAST CARDIAC CATH THAT HE HAS INOPERABLE DISEASE AND IS TO BE MANAGED CONSERVITAVELY/MEDICALLY. LAST VISIT HERE WAS 12/26/20 FOR CHEST PAIN--WAS TREATED AND RELEASED PT STATES HE DID FOLLOW UP WITH DR. CASTILLO AFTER THAT ER VISIT NO CHANGES IN MEDICATIONS DENIES ANY MISSED DOSES OF MEDICATIONS PT DOES STATE THAT HE THINKS THAT HE "OVER-DID IT" THIS EVENING--USED A SEATED WALKER, BUT WAS AT [facility] ALL EVENING, AND IS VERY HOT AND HUMID OUTSIDE. DID NOT USE INHALER OR NEBULIZER WHILE HE WAS THERE PCP: DR. FERNANDEZ/[facility] [place] [facility] SUPERVISOR: DR. CASTILLO Allergies and Home Medications Allergies Coded Allergies: budesonide (Verified Allergy, Severe, angioedema, 12/06/18) formoterol (Verified Allergy, Severe, angioedema, 12/06/18) tetanus toxoid, adsorbed (Verified Allergy, Mild, hives, 12/06/18) DOROTA Inhibitors (Verified Allergy, Unknown, Angioedema, 12/06/18) Home Medications Albuterol Sulfate 1 Puff Puff, 2 PUFF IH PRN PRN for SHORTNESS OF BREATH, (Reported) Amlodipine Besylate 5 Mg Tablet, 5 MG PO DAILY, (Reported) Aripiprazole 30 Mg Tablet, 30 MG PO DAILY, (Reported) Aspirin 81 Mg Tab.chew, 81 MG PO DAILY, (Reported) Atorvastatin Calcium 80 Mg Tablet, 80 MG PO DAILY, (Reported) LAST FILLED 07-25-2020 #90/90 DAY SUPPLY Bupropion HCl 75 Mg Tablet, 75 MG PO DAILY, (Reported) Carvedilol 6.25 Mg Tablet, 6.25 MG PO DAILY, (Reported) Clopidogrel Bisulfate 75 Mg Tablet, 75 MG PO DAILY, (Reported) Fish Oil/Dha/Epa 1 Each Capsule, 1 EACH PO DAILY, (Reported) Isosorbide Mononitrate 30 Mg Tab.er.24h, 30 MG PO DAILY, (Reported) Mirtazapine 30 Mg Tablet, 30 MG PO HS, (Reported) Montelukast Sodium 10 Mg Tablet, 10 MG PO DAILY, (Reported) Nitroglycerin 0.4 Mg Tab.subl, 0.4 MG PO UD PRN for CHEST PAIN, (Reported) Prednisone 10 Mg Tab.ds.pk, 10 MG PO DAILY Take 6 tabs(60mg)daily,decrease by 1 tab(10MG)daily. Prescribed by: ROHIT SAL on 11/27/20 1233 Ranolazine 1,000 Mg Tab.er.12h, 1,000 MG PO DAILY, (Reported) Sertraline HCl 100 Mg Tablet, 200 MG PO DAILY, (Reported) TAKES 2 (100MG) TABS DAILY Patient Home Medication List Home Medication List Reviewed: Yes Review of Systems Review of Systems Constitutional: see HPI EENTM: No Symptoms Reported Respiratory: See HPI Cardiovascular: See HPI Gastrointestinal: No Symptoms Reported Genitourinary: No Symptoms Reported Musculoskeletal: no symptoms reported Skin: no symptoms reported Psychiatric/Neurological: See HPI; Denies Headache, Denies Numbness, Denies Paresthesia, Denies Seizure, Denies Tremors, Denies Weakness Endocrine: No Symptoms Reported Hematologic/Lymphatic: No Symptoms Reported Past Paplflr-[id number]-Pwwmqm Hx Patient Social History Tobacco Use?: Yes Tobacco type used: Cigarettes Smoking Status: Former Smoker Substance use?: No Alcohol Use?: No Immunizations Up To Date Tetanus Booster (TDap): Unknown PED Vaccines UTD: No Influenza Vaccine Up-to-Date: Yes; Up-to-Date Seasonal Allergies Seasonal Allergies: No Past Medical History Surgeries: Yes (LEFT INGUINAL HERNIA;CABG WITH STENTS IN HEART AND LEG) Abdominal, Cardiac, CABG, Coronary Stent, Tonsillectomy, Vascular Surgery Respiratory: Yes (WEARS O2 AT 5L/NC CONTINUOUSLY. RUL PULMONARY NODULE) Pneumonia, Chronic Bronchitis, COPD Currently Using CPAP: No Currently Using BIPAP: No Cardiac: Yes (STENT X1/ANGIO L EXT ILIAC ART;CABG/STENT X4;CAROTID DZ;CHF;CA RDIAC ARREST) Coronary Artery Disease, Deep Vein Thrombosis, Heart Attack, High Cholesterol, Hypertension, Peripheral Vascular Neurological: Yes Stroke Reproductive Disorders: No Sexually Transmitted Disease: No HIV/AIDS: No Genitourinary: No Gastrointestinal: Yes Abdominal Hernia, Gastroesophageal Reflux, Diverticulosis, Ulcer Musculoskeletal: Yes Arthritis, Chronic Back Pain Endocrine: No HEENT: No Loss of Vision: Denies Hearing Impairment: Denies Cancer: No Psychosocial: Yes Sleep Difficulties, Anxiety, Schizophrenia, Depression Integumentary: No Blood Disorders: No Adverse Reaction/Blood Tranf: No Family Medical History Diabetes mellitus 19 MOTHER FH: heart disease 19 FATHER Heart Disease, Diabetes SOCIAL HX: -HX OF ALCOHOL ABUSE--CLAIMS HE QUIT YEARS AGO -DENIES DRUG USE -SMOKED 2-3 PPD--QUIT 2017 PSH: -CABG--1 VESSEL BYPASS -CARDIAC CATHS AND STENTS X 4, WITH ANGIOPLASTIES--LAST CARDIAC CATH 03/2018--PATENT STENT TO PROXIMAL LAD TO FIRST DIAGONAL, COMPLETE OCCLUSION OF MID LAD AND TO VEIN GRAFT TO LAD; EF 45-50%--NO INTERVENTION DONE AT THAT TIME AND FINDINGS WERE THE SAME THOSE FOUND ON CARDIAC CATH IN 2014 -ANGIOPLASTY AND STENT X 1 TO LEFT LEG/EXTERNAL ILIAC ARTERY 02/2017 -LEFT INGUINAL HERNIA REPAIR -TONSILLECTOMY ADDITIONAL PMH: -HX OF CARDIAC ARREST -CAROTID DISEASE--SEVERE ON RIGHT -RBBB ; LAFB Physical Exam Vital Signs Vital Signs - First Documented 01/20/21 01/20/21 22:30 22:33 Temp 36.2 Pulse 91 Resp 20 B/P (MAP) 191/99 (129) Pulse Ox 100 O2 Delivery Nasal Cannula O2 Flow Rate 5.0 FiO2 99 Capillary Refill : Less Than 3 Seconds Height, Weight, BMI Height: 5'8.00" Weight: 174lbs. 0.0oz. 78.002717lc; 28.00 BMI Method:Stated General Appearance: No Apparent Distress, WD/WN, Other (CONSTANT MOUTH MOVEMENTS AND LIP LICKING. DOES NOT APPEAR TO BE ILL OR TO BE IN ANY DISCOMFORT OR DISTRESS WHATSOEVER) HEENT: Other (EDENTULOUS) Neck: Normal Inspection Respiratory: Chest Non Tender, Normal Breath Sounds, No Accessory Muscle Use, No Respiratory Distress Cardiovascular: Regular Rate, Rhythm, No Edema, No JVD, No Murmur, Normal Peripheral Pulses Gastrointestinal: Non Tender, Soft Extremity: Normal Capillary Refill, Normal Inspection, Normal Range of Motion, Non Tender, No Calf Tenderness, No Pedal Edema Neurologic/Psychiatric: Alert, Oriented x3, No Motor/Sensory Deficits, Normal Mood/Affect, communications station manager II-XII Norm as Tested Skin: Normal Color, Warm/Dry Progress/Results/Core Measures Results/Orders Lab Results Laboratory Tests Test 01/20/21 22:43 01/21/21 01:46 Range/Units White Blood Count 6.1 4.3-11.0 10^3/uL Red Blood Count 3.50 L 4.30-5.52 10^6/uL Hemoglobin 10.4 L 13.3-17.7 g/dL Hematocrit 35 L 40-54 % Mean Corpuscular Volume 99 80-99 fL Mean Corpuscular Hemoglobin 30 25-34 pg Mean Corpuscular Hemoglobin Concent 30 L 32-36 g/dL Red Cell Distribution Width 12.4 10.0-14.5 % Platelet Count 135 130-400 10^3/uL Mean Platelet Volume 10.1 9.0-12.2 fL Immature Granulocyte % (Auto) 0 % Neutrophils (%) (Auto) 59 42-75 % Lymphocytes (%) (Auto) 29 12-44 % Monocytes (%) (Auto) 9 0-12 % Eosinophils (%) (Auto) 3 0-10 % Basophils (%) (Auto) 0 0-10 % Neutrophils # (Auto) 3.6 1.8-7.8 10^3/uL Lymphocytes # (Auto) 1.8 1.0-4.0 10^3/uL Monocytes # (Auto) 0.6 0.0-1.0 10^3/uL Eosinophils # (Auto) 0.2 0.0-0.3 10^3/uL Basophils # (Auto) 0.0 0.0-0.1 10^3/uL Immature Granulocyte # (Auto) 0.0 0.0-0.1 10^3/uL Percent Immature Platelet Fraction 4.2 0.0-7.6 % Prothrombin Time 12.3 12.2-14.7 SEC INR Comment 0.9 0.8-1.4 Activated Partial Thromboplast Time 34 24-35 SEC Sodium Level 143 135-145 MMOL/L Potassium Level 4.3 3.6-5.0 MMOL/L Chloride Level 95 L 98-107 MMOL/L Carbon Dioxide Level 38 H 21-32 MMOL/L Anion Gap 10 5-14 MMOL/L Blood Urea Nitrogen 8 7-18 MG/DL Creatinine 0.90 0.60-1.30 MG/DL Estimat Glomerular Filtration Rate 85 BUN/Creatinine Ratio 9 Glucose Level 115 H 70-105 MG/DL Calcium Level 9.0 8.5-10.1 MG/DL Corrected Calcium 9.1 8.5-10.1 MG/DL Magnesium Level 1.9 1.6-2.4 MG/DL Total Bilirubin 0.3 0.1-1.0 MG/DL Aspartate Amino Transf (AST/SGOT) 25 5-34 U/L Alanine Aminotransferase (ALT/SGPT) 23 0-55 U/L Alkaline Phosphatase 94 40-136 U/L Total Creatine Kinase 111 30-200 U/L Creatine Kinase MB 1.8 <6.6 NG/ML Myoglobin 51.4 10.0-92.0 NG/ML Troponin I < 0.028 < 0.028 <0.028 NG/ML B-Type Natriuretic Peptide 35.8 <100.0 PG/ML Total Protein 7.1 6.4-8.2 GM/DL Albumin 3.9 3.2-4.5 GM/DL Amylase Level 47 25-125 U/L Lipase 21 8-78 U/L My Orders Orders - DEBBIE ESPINOSA DO Cbc With Automated Diff (01/20/21 22:34) Magnesium (01/20/21 22:34) Chest 1 View, Ap/Pa Only (01/20/21 22:34) Ekg Tracing (01/20/21 22:34) Comprehensive Metabolic Panel (01/20/21 22:34) Myoglobin Serum (01/20/21 22:34) Protime With Inr (01/20/21 22:34) Partial Thromboplastin Time (01/20/21 22:34) O2 (01/20/21 22:34) Monitor-Rhythm Ecg Trace Only (01/20/21 22:34) Ed Iv/Invasive Line Start (01/20/21 22:34) Creatine Kinase (01/20/21 22:34) Creatine Kinase Mb (01/20/21 22:34) Lipase (01/20/21 22:34) Amylase (01/20/21 22:34) BNP (01/20/21 22:34) Troponin I (01/20/21 22:34) Nitroglycerin Ointment (Nitrobid Ointme (01/20/21 23:15) Hydralazine Injection (Apresoline Inject (01/20/21 23:45) Ekg Tracing (01/21/21 01:39) Troponin I (01/21/21 01:39) Ekg Tracing (01/20/21 22:48) Medications Given in ED Vital Signs/I&O 01/20/21 01/20/21 01/20/21 01/21/21 22:30 22:33 22:33 03:07 Temp 36.2 36.2 Pulse 91 94 Resp 20 20 B/P (MAP) 191/99 (129) 145/78 (129) Pulse Ox 100 99 100 O2 Delivery Nasal Cannula Nasal Cannula Nasal Cannula Nasal Cannula O2 Flow Rate 5.0 5.00 5.00 FiO2 99 Blood Pressure Mean: 129 Progress Progress Note : Progress Note GIVEN NITROPASTE FOR ELEVATED BP--DOWN TO 170'S SYSTOLIC, PAIN DOWN TO 6/10 GIVEN HYDRALAZINE FOR ELEVATED BP--BP DOWN TO 140'S SYSTOLIC, NO LONGER C/O PAIN 0130--PT STATES HE FEELS FINE AND IS READY TO GO HOME NOW. DENIES ANY PAIN. ADVISED HIM IF REPEAT EKG AND TROPONIN ARE NORMAL/UNCHANGED, THAT HE MAY GO HOME PT HAD NO COMPLAINTS FOR REMAINDER OF ER STAY RESTED QUIETLY FOR ENTIRE ER STAY BP DOWN, VITALS STABLE, PT IS SYMPTOM-FREE, AND NO CHANGES IN EKG OR TROPONIN. Initial ECG Impression Date: Jan 20, 2021 Initial ECG Impression Time: 22:48 Initial ECG Rate: 87 Initial ECG Rhythm: Normal Sinus Initial ECG Impression: Nonspecific Changes Initial ECG Comparisson: Unchanged EKG : EKG Time: 01:46 Rate: 83 Rhythm: Normal Sinus ECG Comparisson: Unchanged Diagnostic Imaging Comments CXR--NO ACUTE PROCESS, CHRONIC CHANGES, PENDING RADIOLOGIST REVIEW Reviewed: Reviewed by Me Departure Impression Primary Impression: Chest pain Additional Impressions: HTN (hypertension) COPD (chronic obstructive pulmonary disease) CAD (coronary artery disease) Disposition: 01 HOME, SELF-CARE Condition: Improved Departure-Patient Inst. Decision time for Depature: 02:17 Referrals: BRANDON RODAS MD (PCP/Family) Primary Care Physician Patient Instructions: Chest Pain (DC), DASH Diet, High Blood Pressure (DC) Add. Discharge Instructions: CONTINUE YOUR REGULAR MEDICATIONS FOLLOW UP WITH DR. CASTILLO THIS WEEK FOR FURTHER CARE RETURN TO ER IF SYMPTOMS RETURN All discharge instructions reviewed with patient and/or family. Voiced understanding. DEBBIE ESPINOSA DO Jan 20, 2021 23:51
[2021-01-21 03:07] VITALS: BP 145/78
--- NOTE | 2021-01-22 07:29 | Diagnostic Imaging Report ---
INDICATION: Chest pain. Comparison is made with prior examination from 12/26/2020. FINDINGS: The heart size is stable. There has been a previous median sternotomy. There is some elevation of the right hemidiaphragm. There is no pleural effusion, pneumothorax or pneumonia. Mediastinum is unremarkable. IMPRESSION: No acute cardiopulmonary abnormality. Dictated by: Dictated on workstation # [id number]
== END 2021-01-21 03:05 | disposition home or self-care (01) ==
LOC: EDUNIT# 22:28 → ER 22:30
DX: I11.0 Hypertensive heart disease with heart failure (principal); J44.9 Chronic obstructive pulmonary disease, unspecified; I50.9 Heart failure, unspecified; I25.10 Atherosclerotic heart disease of native coronary artery without angina pectoris; I25.2 Old myocardial infarction; E78.00 Pure hypercholesterolemia, unspecified; F41.9 Anxiety disorder, unspecified; F32.9 Major depressive disorder, single episode, unspecified; F20.9 Schizophrenia, unspecified; Z86.718 Personal history of other venous thrombosis and embolism; Z86.73 Personal history of transient ischemic attack (TIA), and cerebral infarction without residual deficits; Z87.891 Personal history of nicotine dependence; Z95.1 Presence of aortocoronary bypass graft; Z95.5 Presence of coronary angioplasty implant and graft; Z79.899 Other long term (current) drug therapy; Z79.82 Long term (current) use of aspirin; Z79.01 Long term (current) use of anticoagulants
CPT/HCPCS: 36415; 71045; 80053; 82150; 82550; 82553; 83690; 83735; 83874; 83880; 84484; 85025; 85610; 85730; 93005; 93041

== ENCOUNTER 2021-02-22 12:34 | Emergency (ER) | payer MEDICARE, MEDICAID ==
[~2021-02-22] VITALS: Ht 172 cm; Wt 81.1 kg
[2021-02-22 12:57] LABS: BASOPHILS % (AUTO) 0 % (0-10); EOSINOPHILS % (AUTO) 0 % (0-10); HEMATOCRIT 38 % (40-54); HEMOGLOBIN 10.9 g/dL (13.3-17.7); LYMPHOCYTES # (AUTO) 0.9 10^3/uL (1.0-4.0); LYMPHOCYTES % (AUTO) 10 % (12-44); MEAN CORPUSCULAR HEMOGLOBIN 30 pg (25-34); MEAN CORPUSCULAR HGB CONC 29 g/dL (32-36); MEAN CORPUSCULAR VOLUME 102 fL (80-99); MONOCYTES # (AUTO) 0.6 10^3/uL (0.0-1.0); MONOCYTES % (AUTO) 7 % (0-12); NEUTROPHILS # (AUTO) 7.1 10^3/uL (1.8-7.8); NEUTROPHILS % (AUTO) 82 % (42-75); PLATELET COUNT 217 10^3/uL (130-400); WHITE BLOOD COUNT 8.6 10^3/uL (4.3-11.0)
--- NOTE | 2021-02-22 12:57 | ED Cough/URI ---
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 Carrion with a chief complaint of cough, shortness of breath left-sided chest discomfort. Patient has a history of COPD, he quit smoking 4 years ago. He wears 5 L of oxygen at all times. He denies any increasing oxygen requirement. He states over the last 2 to 3 days he has had increasing cough productive of yellow sputum. Decreasing appetite. He has had some nausea. No loss of taste or smell. Patient states that he is Covid vaccinated. Denies any sick contacts. No swelling in his legs. Patient states he is drinking fluids and urinating normally just does not have an appetite. Was seen for routine appointment with Dr. Carrion and when he related his symptoms Dr. Carrion advised him to come to the ER. Patient states that he does use inhalers at home. The last time he used his inhaler was when he woke up this morning to take his morning meds. All other review of systems reviewed and negative except as stated. Timing/Duration: getting worse (2-3 days) Severity/Quality: moderate, productive cough Modifying Factors: Improves With Albuterol Inhaler Associated Symptoms: chest pain/soreness, cough, other (nausea and decreaed appetite) Allergies and Home Medications Allergies Coded Allergies: budesonide (Verified Allergy, Severe, angioedema, 12/06/18) formoterol (Verified Allergy, Severe, angioedema, 12/06/18) tetanus toxoid, adsorbed (Verified Allergy, Mild, hives, 12/06/18) DOROTA Inhibitors (Verified Allergy, Unknown, Angioedema, 12/06/18) Patient Home Medication List Home Medication List Reviewed: Yes Albuterol Sulfate (Ventolin Hfa) 1 Puff Puff, 2 PUFF IH PRN PRN for SHORTNESS OF BREATH, (Reported) Entered as Reported by: GAVIN RUBIO on 03/18/18 0966 Amlodipine Besylate (Amlodipine Besylate) 5 Mg Tablet, 5 MG PO DAILY, (Reported) Entered as Reported by: CELSO SZYMANSKI on 02/15/18 0350 Aripiprazole (Aripiprazole) 30 Mg Tablet, 30 MG PO DAILY, (Reported) Entered as Reported by: JEFF LEWIS on 06/29/20 1249 Aspirin (Aspirin) 81 Mg Tab.chew, 81 MG PO DAILY, (Reported) Entered as Reported by: JEFF LEWIS on 05/01/20 1344 Atorvastatin Calcium (Atorvastatin Calcium) 80 Mg Tablet, 80 MG PO DAILY, (Reported) Entered as Reported by: GAVIN RUBIO on 03/18/18 0737 Azithromycin (Azithromycin) 250 Mg Tablet, 250 MG PO DAILY Prescribed by: ARUN BRO on 02/22/21 1410 Bupropion HCl (Bupropion HCl) 75 Mg Tablet, 75 MG PO DAILY, (Reported) Entered as Reported by: CELSO SZYMANSKI on 02/15/18 0350 Carvedilol (Carvedilol) 6.25 Mg Tablet, 6.25 MG PO DAILY, (Reported) Entered as Reported by: CELSO MARLOW on 07/25/17 1535 Cefdinir (Cefdinir) 300 Mg Capsule, 300 MG PO BID Prescribed by: ARUN BRO on 02/22/21 1410 Clopidogrel Bisulfate (Clopidogrel) 75 Mg Tablet, 75 MG PO DAILY, (Reported) Entered as Reported by: JEFF LEWIS on 11/08/19 1527 Fish Oil/Dha/Epa (Fish Oil 1,200 mg Fish Oil) 1 Each Capsule, 1 EACH PO DAILY, (Reported) Entered as Reported by: JEFF LEWIS on 06/29/20 1251 Isosorbide Mononitrate (Isosorbide Mononitrate ER) 30 Mg Tab.er.24h, 30 MG PO DAILY, (Reported) Entered as Reported by: PASHA GALEANA on 07/25/16 0945 Mirtazapine (Mirtazapine) 30 Mg Tablet, 30 MG PO HS, (Reported) Entered as Reported by: CELSO SZYMANSKI on 02/15/18 0350 Montelukast Sodium (Montelukast Sodium) 10 Mg Tablet, 10 MG PO DAILY, (Reported) Entered as Reported by: JEFF LEWIS on 06/29/20 1249 Nitroglycerin (Nitrostat) 0.4 Mg Tab.subl, 0.4 MG PO UD PRN for CHEST PAIN, (Reported) Entered as Reported by: PASHA GALEANA on 07/25/16 0945 Prednisone (Prednisone) 10 Mg Tab.ds.pk, 10 MG PO DAILY Prescribed by: ROHIT SAL on 11/27/20 1233 Ranolazine (Ranolazine ER) 1,000 Mg Tab.er.12h, 1,000 MG PO DAILY, (Reported) Entered as Reported by: JEFF LEWIS on 06/29/20 1249 Sertraline HCl (Sertraline HCl) 100 Mg Tablet, 200 MG PO DAILY, (Reported) Entered as Reported by: JEFF LEWIS on 11/08/19 1527 Review of Systems Review of Systems Constitutional: see HPI, malaise EENTM: no symptoms reported Respiratory: cough, phlegm, short of breath Cardiovascular: chest pain ("discomfort" left chest) Gastrointestinal: loss of appetite, nausea Genitourinary: no symptoms reported Musculoskeletal: no symptoms reported Skin: no symptoms reported Psychiatric/Neurological: No Symptoms Reported All Other Systems Reviewed Negative Unless Noted: Yes Past Tmdxjvs-Zenlid-Btppop Hx Patient Social History Tobacco Use?: No Smoking Status: Former Smoker Substance use?: No Alcohol Use?: No Pt feels they are or have been: No Immunizations Up To Date Tetanus Booster (TDap): Unknown PED Vaccines UTD: No First/Initial COVID19 Vaccinat: utd Second COVID19 Vaccination Guillermo: utd COVID19 Vaccine Assistant Pressman: NAYE Seasonal Allergies Seasonal Allergies: No Past Medical History Surgery/Hospitalization HX: MD 2016 Surgeries: Yes (LEFT INGUINAL HERNIA;CABG WITH STENTS IN HEART AND LEG) Abdominal, Cardiac, CABG, Coronary Stent, Tonsillectomy, Vascular Surgery Respiratory: Yes (WEARS O2 AT 5L/NC CONTINUOUSLY. RUL PULMONARY NODULE) Pneumonia, Chronic Bronchitis, COPD Currently Using CPAP: No Currently Using BIPAP: No Cardiac: Yes (STENT X1/ANGIO L EXT ILIAC ART;CABG/STENT X4;CAROTID DZ;CHF;CARDIAC ARREST) Coronary Artery Disease, Deep Vein Thrombosis, Heart Attack, High Cholesterol, Hypertension, Peripheral Vascular Neurological: Yes Stroke Reproductive Disorders: No Sexually Transmitted Disease: No HIV/AIDS: No Genitourinary: No Gastrointestinal: Yes Abdominal Hernia, Gastroesophageal Reflux, Diverticulosis, Ulcer Musculoskeletal: Yes Arthritis, Chronic Back Pain Endocrine: No HEENT: No Loss of Vision: Denies Hearing Impairment: Denies Cancer: No Psychosocial: Yes Sleep Difficulties, Anxiety, Schizophrenia, Depression Integumentary: No Blood Disorders: No Adverse Reaction/Blood Tranf: No Family Medical History Diabetes mellitus 19 MOTHER FH: heart disease 19 FATHER Heart Disease, Diabetes SOCIAL HX: -HX OF ALCOHOL ABUSE--CLAIMS HE QUIT YEARS AGO -DENIES DRUG USE -SMOKED 2-3 PPD--QUIT 2017 PSH: -CABG--1 VESSEL BYPASS -CARDIAC CATHS AND STENTS X 4, WITH ANGIOPLASTIES--LAST CARDIAC CATH 03/2018--PATENT STENT TO PROXIMAL LAD TO FIRST DIAGONAL, COMPLETE OCCLUSION OF MID LAD AND TO VEIN GRAFT TO LAD; EF 45-50%--NO INTERVENTION DONE AT THAT TIME AND FINDINGS WERE THE SAME THOSE FOUND ON CARDIAC CATH IN 2014 -ANGIOPLASTY AND STENT X 1 TO LEFT LEG/EXTERNAL ILIAC ARTERY 02/2017 -LEFT INGUINAL HERNIA REPAIR -TONSILLECTOMY ADDITIONAL PMH: -HX OF CARDIAC ARREST -CAROTID DISEASE--SEVERE ON RIGHT -RBBB ; LAFB Physical Exam Vital Signs - First Documented 02/22/21 12:48 Temp 36.2 Pulse 103 Resp 18 B/P (MAP) 172/86 (114) Pulse Ox 100 O2 Delivery Nasal Cannula O2 Flow Rate 5.00 Capillary Refill : Height: 5'8.00" Weight: 174lbs. 0.0oz. 78.578119hh; 28.00 BMI Method:Stated General Appearance: WD/WN, no apparent distress HEENT: PERRL/EOMI Neck: full range of motion Respiratory: rhonchi, wheezing (left side greater than right) Cardiovascular: regular rate, rhythm, tachycardia (HR = 100) Gastrointestinal: normal bowel sounds, non tender, soft Extremities: normal inspection, no pedal edema, no calf tenderness Neurologic/Psychiatric: alert, normal mood/affect, oriented x 3 Skin: warm/dry, pallor Focused Exam Lactate Level 02/22/21 13:00: Lactic Acid Level 0.97 Lactic Acid Level Laboratory Tests Test 02/22/21 13:00 Lactic Acid Level 0.97 MMOL/L (0.50-2.00) Progress/Results/Core Measures Suspected Sepsis SIRS Temperature: Pulse: Respiratory Rate: Laboratory Tests 02/22/21 12:45: White Blood Count 8.6 Blood Pressure / Mean: 02/22/21 13:00: Lactic Acid Level 0.97 Laboratory Tests 02/22/21 12:45: Creatinine 0.82, INR Comment 0.9, Platelet Count 217, Total Bilirubin 0.4 Results/Orders Lab Results Laboratory Tests Test 02/22/21 12:45 02/22/21 13:00 Range/Units White Blood Count 8.6 4.3-11.0 10^3/uL Red Blood Count 3.69 L 4.30-5.52 10^6/uL Hemoglobin 10.9 L 13.3-17.7 g/dL Hematocrit 38 L 40-54 % Mean Corpuscular Volume 102 H 80-99 fL Mean Corpuscular Hemoglobin 30 25-34 pg Mean Corpuscular Hemoglobin Concent 29 L 32-36 g/dL Red Cell Distribution Width 11.9 10.0-14.5 % Platelet Count 217 130-400 10^3/uL Mean Platelet Volume 10.0 9.0-12.2 fL Immature Granulocyte % (Auto) 0 % Neutrophils (%) (Auto) 82 H 42-75 % Lymphocytes (%) (Auto) 10 L 12-44 % Monocytes (%) (Auto) 7 0-12 % Eosinophils (%) (Auto) 0 0-10 % Basophils (%) (Auto) 0 0-10 % Neutrophils # (Auto) 7.1 1.8-7.8 10^3/uL Lymphocytes # (Auto) 0.9 L 1.0-4.0 10^3/uL Monocytes # (Auto) 0.6 0.0-1.0 10^3/uL Eosinophils # (Auto) 0.0 0.0-0.3 10^3/uL Basophils # (Auto) 0.0 0.0-0.1 10^3/uL Immature Granulocyte # (Auto) 0.0 0.0-0.1 10^3/uL Prothrombin Time 12.9 12.2-14.7 SEC INR Comment 0.9 0.8-1.4 Activated Partial Thromboplast Time 36 H 24-35 SEC Sodium Level 142 135-145 MMOL/L Potassium Level 3.8 3.6-5.0 MMOL/L Chloride Level 86 L 98-107 MMOL/L Carbon Dioxide Level 47 *H 21-32 MMOL/L Anion Gap 9 5-14 MMOL/L Blood Urea Nitrogen 8 7-18 MG/DL Creatinine 0.82 0.60-1.30 MG/DL Estimat Glomerular Filtration Rate 94 BUN/Creatinine Ratio 10 Glucose Level 122 H 70-105 MG/DL Calcium Level 10.3 H 8.5-10.1 MG/DL Corrected Calcium 10.3 H 8.5-10.1 MG/DL Total Bilirubin 0.4 0.1-1.0 MG/DL Aspartate Amino Transf (AST/SGOT) 18 5-34 U/L Alanine Aminotransferase (ALT/SGPT) 22 0-55 U/L Alkaline Phosphatase 107 40-136 U/L Total Protein 7.8 6.4-8.2 GM/DL Albumin 4.0 3.2-4.5 GM/DL Procalcitonin 0.04 <0.10 NG/ML Lactic Acid Level 0.97 0.50-2.00 MMOL/L My Orders Orders - ARUN BRO MD Cbc With Automated Diff (02/22/21 12:51) Comprehensive Metabolic Panel (02/22/21 12:51) Blood Culture (02/22/21 12:51) Sputum Culture (02/22/21 12:51) Protime With Inr (02/22/21 12:51) Partial Thromboplastin Time (02/22/21 12:51) Chest 1 View, Ap/Pa Only (02/22/21 12:51) Ed Iv/Invasive Line Start (02/22/21 12:51) Ed Iv/Invasive Line Start (02/22/21 12:51) Vital Signs Adult Sepsis Patie Q15M (02/22/21 12:51) O2 (02/22/21 12:51) Remove Rings In Anticipation O (02/22/21 12:51) Lactic Acid Analyzer (02/22/21 12:51) Procalcitonin (Pct) (02/22/21 12:51) Ekg Tracing (02/22/21 13:00) Albuterol Pre-Mix Nebs (Rt) (Proventil (02/22/21 14:00) Svn Small Volume Nebulizer (02/22/21 13:59) Ceftriaxone (Rocephin) (02/22/21 14:00) Azithromycin Injection (Zithromax Inject (02/22/21 14:00) Acetaminophen Tablet (Tylenol Tablet) (02/22/21 14:27) Acetaminophen Tablet (Tylenol Tablet) (02/22/21 14:45) Medications Given in ED Current Medications Medications Dose Ordered Sig/Shira Route Start Time Stop Time Status Last Admin Dose Admin Albuterol Sulfate 2.5 mg ONCE ONCE INH 02/22/21 14:00 02/22/21 14:01 DC 02/22/21 14:22 2.5 MG Azithromycin 500 mg/Sodium Chloride 250 ml @ 250 mls/hr ONCE ONCE IV 02/22/21 14:00 02/22/21 14:59 02/22/21 14:23 250 MLS/HR Ceftriaxone Sodium 1000 mg/ Sterile Water 10 ml @ 200 mls/hr ONCE ONCE IV 02/22/21 14:00 02/22/21 14:02 DC 02/22/21 14:22 200 MLS/HR Vital Signs/I&O 02/22/21 02/22/21 12:48 12:48 Temp 36.2 Pulse 103 Resp 18 B/P (MAP) 172/86 (114) Pulse Ox 100 O2 Delivery Nasal Cannula Nasal Cannula O2 Flow Rate 5.00 5.00 Capillary Refill : Progress Note : Time: 14:04 Progress Note Patient clinically looks well. no increased work of breathing or distress. He has a rather impressive right sided lower lobe pneumonia. CO2 on chem is 47 - not much off of his baseline. likely due to long standing COPD, in the face of the pneumonia. Will give him a dose of rocephin and azithormycin here in the deprtment, home on omnicef and azithromycin. strict return precautions and follow up with his PCP. He is not hypoxicf on his normal 5L of o2, is not septic. I do not think that he needs urgent admission at this time. 1452 patient noted to get a little hypoxic during breathing treatment - off his 5L - sats to 88-90%. recovered once placed back on his 5L ECG Initial ECG Impression Date: Feb 22, 2021 Initial ECG Impression Time: 12:50 Initial ECG Rate: 98 Initial ECG Intervals SD 145 QRS 106 QTc 458 Initial ECG Impression: Nonspecific Changes Comment RBBB, no ST elevations or depressions Diagnostic Imaging Diagonstic Imaging: Xray Plain Films/CT/US/NM/MRI: chest Comments [facility]. [place], [place] NAME: [facility] REC#: [id number] PT STATUS: REG ER : 1955 PHYSICIAN: ARUN BRO MD ADMIT DATE: 02/22/21/ER Draft Date of Exam:02/22/21 CHEST 1 VIEW, AP/PA ONLY INDICATION: Sepsis. TIME OF EXAM: 1:27 PM Correlation is made with prior chest from 01/20/2021. FINDINGS: Changes of median sternotomy and CABG are noted. There appears to be developmental right-sided pleural effusion with some right basilar infiltrate or atelectasis. Left lung is clear. There is no pneumothorax. IMPRESSION: Development of right basilar infiltrate or atelectasis and right pleural effusion. Dictated on workstation # [id number] Dict: 02/22/21 1333 Trans: 02/22/21 1335 [id number] Interpreted by: KAVYA PAREDES MD Electronically signed by: Departure Impression Primary Impression: Right lower lobe pneumonia Qualified Codes: J18.9 - Pneumonia, unspecified organism Additional Impression: COPD (chronic obstructive pulmonary disease) Qualified Codes: J44.0 - Chronic obstructive pulmonary disease with (acute) lower respiratory infection Disposition: HOME, SELF-CARE Condition: Stable Departure-Patient Inst. Decision time for Depature: 14:07 Referrals: SONYA FERNANDEZ MD (PCP/Family) Primary Care Physician Patient Instructions: Pneumonia, Adult ED Add. Discharge Instructions: I have given you your first doses of antibiotics today. You will need to continue them tomorrow. Azithromycin for 4 more days and Cefdinir for 9 more days. Please call your Primary Care Doctor today or tomorrow morning for a follow up visit next week. Be sure and use your breathing medications at home as scheduled. Drink plenty of fluids to stay well hydrated. Come back to the Emergency Department for any worsening cough with shortness of breath, high fevers or any other emergent concerning symptoms, Scripts Cefdinir (Cefdinir) 300 Mg Capsule 300 MG PO BID for 10 Days, #18 CAP 0 Refills Prov: ARUN BRO MD 02/22/21 Azithromycin (Azithromycin) 250 Mg Tablet 250 MG PO DAILY, #4 TAB 0 Refills Prov: ARUN BRO MD 02/22/21 ARUN BRO MD Feb 22, 2021 12:57
[2021-02-22 13:03] LABS: INR 0.9 (0.8-1.4); PROTHROMBIN TIME PATIENT 12.9 SEC (12.2-14.7)
[2021-02-22 13:04] LABS: POTASSIUM 3.8 MMOL/L (3.6-5.0)
[2021-02-22 13:05] LABS: CALCIUM 10.3 MG/DL (8.5-10.1)
[2021-02-22 13:06] LABS: TOTAL PROTEIN 7.8 GM/DL (6.4-8.2)
[2021-02-22 13:08] LABS: BILIRUBIN,TOTAL 0.4 MG/DL (0.1-1.0)
[2021-02-22 13:10] LABS: CREATININE SERUM 0.82 MG/DL (0.60-1.30)
--- NOTE | 2021-02-22 13:36 | Diagnostic Imaging Report ---
INDICATION: Sepsis. TIME OF EXAM: 1:27 PM Correlation is made with prior chest from 01/20/2021. FINDINGS: Changes of median sternotomy and CABG are noted. There appears to be developmental right-sided pleural effusion with some right basilar infiltrate or atelectasis. Left lung is clear. There is no pneumothorax. IMPRESSION: Development of right basilar infiltrate or atelectasis and right pleural effusion. Dictated by: Dictated on workstation # [id number]
[2021-02-22] MEDS ORDERED: cefTRIAXone 1,000 MG in WATER (STERILE) FOR INJECTION 10 ML IV ONE (14:00)
[2021-02-22] MEDS ORDERED: AZITHROMYCIN INJECTION 500 MG in NS (IVPB) 250 ML IV ONE (14:00)
[2021-02-22] MEDS ORDERED: RT-ALBUTEROL SULF 2.5 MG/3 ML PRE-MIX VIAL INH ONE (14:00)
[2021-02-22] MEDS ORDERED: CEFD300C3 PO (14:10)
[2021-02-22] MEDS ORDERED: AZIT250T12 PO (14:10)
[2021-02-22] MEDS ORDERED: ACETAMINOPHEN 500 MG TAB (TYLENOL) ONE (14:27)
[2021-02-22] MEDS ORDERED: ACETAMINOPHEN 500 MG TAB (TYLENOL) PO ONE (14:45)
[2021-02-22 15:34] VITALS: BP 139/69
== END 2021-02-22 15:34 | disposition home or self-care (01) ==
LOC: EDUNIT# 12:34 → ER 12:36
DX: J18.9 Pneumonia, unspecified organism (principal); J44.0 Chronic obstructive pulmonary disease with (acute) lower respiratory infection; I10 Essential (primary) hypertension; I25.2 Old myocardial infarction; I25.10 Atherosclerotic heart disease of native coronary artery without angina pectoris; E78.00 Pure hypercholesterolemia, unspecified; F41.9 Anxiety disorder, unspecified; F32.9 Major depressive disorder, single episode, unspecified; F20.9 Schizophrenia, unspecified; K21.9 Gastro-esophageal reflux disease without esophagitis; Z86.73 Personal history of transient ischemic attack (TIA), and cerebral infarction without residual deficits; Z86.718 Personal history of other venous thrombosis and embolism; Z87.891 Personal history of nicotine dependence; Z88.8 Allergy status to other drugs, medicaments and biological substances; Z95.5 Presence of coronary angioplasty implant and graft; Z95.1 Presence of aortocoronary bypass graft; Z79.82 Long term (current) use of aspirin; Z79.02 Long term (current) use of antithrombotics/antiplatelets; Z79.52 Long term (current) use of systemic steroids; Z79.899 Other long term (current) drug therapy
CPT/HCPCS: 36415; 71045; 80053; 83605; 84145; 85025; 85610; 85730; 87040; 93005; 96374; 96375

== ENCOUNTER 2021-05-31 12:31 | Emergency (ER) | payer MEDICARE, MEDICAID ==
[~2021-05-31] VITALS: Ht 172 cm; Wt 73.0 kg
[~2021-05-31 12:31] MED LIST changes: -LISI-729 PO; +LISI5TAB20 PO; +MONT-40 PO; -MONT10TA32 PO
--- NOTE | 2021-05-31 12:59 | ED General ---
General Chief Complaint: Post OP Complications/Pain Stated Complaint: R ARM/FACIAL SWELLING,S/P CAROTID SX 05/28 Nursing Triage Note: ARRIVED VIA AMB TO ROOM 05 WITHOUT DIFFICULTY. PT HAD HIS RIGHT CAROTID DONE ON FRIDAY AND WAS RELEASED FROM [facility] YESTERDAY. STATES TH RIGHT SIDE OF HIS FACE AND HIS LEFT ARM STARTED SWELLING LAST NIGHT. CALLED HIS DR WHO TOLD HIM TO GO TO A ER. Source of Information: Patient History of Present Illness Date Seen by Provider: May 31, 2021 Time Seen by Provider: 12:43 Initial Comments PT ARRIVES VIA POV FROM HOME STATES HE HAD RIGHT CAROTID SURGERY AT [facility] ON Friday05/28/[address] BLANKENSHIP, AND WAS RELEASED YESTERDAY AFTERNOON HAD SOME SWELLING TO RIGHT NECK WHEN HE WAS DISMISSED, BUT HAS HAD INCREASED SWELLING TO RIGHT NECK, RIGHT JAW AND RIGHT SIDE OF FACE SINCE HE GOT HOME NO FEVER/SWEATS/CHILLS NO DIFFICULTY SWALLOWING OR BREATHING NO CHEST PAIN OR SHORTNESS OF BREATH HAS SLIGHT SWELLING TO RIGHT JAW. ALSO HAS SWELLING TO RIGHT ARM AND PAIN AT RIGHT WRIST SINCE LAST NIGHT--STATES HE HAD AN ARTERIAL LINE IN RIGHT WRIST HAD REGULAR IV IN LEFT WRIST NO PARESTHESIAS OR MOTOR DEFICITS RIGHT ARM IS PALER THAN LEFT ARM. NO SIGNIFICANT PAIN TO FACE OR ARM TOOK A PAIN PILL ( HYDROCODONE) AT 2300 LAST NIGHT, HAS NOT TAKEN ANYTHING FOR PAIN TODAY WAS ABLE TO TAKE ALL HIS REGULAR MEDICATIONS THIS MORNING PT IS ON ASPIRIN 81 MG, BUT NO OTHER BLOOD THINNERS PT HAS HAD COVID-19 VACCINE X 3 NO COUGH OR OTHER COVID SYMPTOMS PCP: DR. FERNANDEZ Allergies and Home Medications Allergies Coded Allergies: budesonide (Verified Allergy, Severe, angioedema, 12/06/18) formoterol (Verified Allergy, Severe, angioedema, 12/06/18) tetanus toxoid, adsorbed (Verified Allergy, Mild, hives, 12/06/18) DOROTA Inhibitors (Verified Allergy, Unknown, Angioedema, 12/06/18) Patient Home Medication List Home Medication List Reviewed: Yes Albuterol Sulfate (Ventolin Hfa) 1 Puff Puff, 2 PUFF IH PRN PRN for SHORTNESS OF BREATH, (Reported) Entered as Reported by: GAVIN RUBIO on 03/18/18 0737 Amlodipine Besylate (Amlodipine Besylate) 5 Mg Tablet, 5 MG PO DAILY, (Reported) Entered as Reported by: CELSO SZYMANSKI on 02/15/18 0350 Aripiprazole (Aripiprazole) 30 Mg Tablet, 30 MG PO DAILY, (Reported) Entered as Reported by: JEFF LEWIS on 06/29/20 1249 Aspirin (Aspirin) 81 Mg Tab.chew, 81 MG PO DAILY, (Reported) Entered as Reported by: JEFF LEWIS on 05/01/20 1344 Atorvastatin Calcium (Atorvastatin Calcium) 80 Mg Tablet, 80 MG PO DAILY, (Reported) Entered as Reported by: GAVIN RUBIO on 03/18/18 0737 Azithromycin (Azithromycin) 250 Mg Tablet, 250 MG PO DAILY Prescribed by: ARUN BRO on 02/22/21 1410 Bupropion HCl (Bupropion HCl) 75 Mg Tablet, 75 MG PO DAILY, (Reported) Entered as Reported by: CELSO SZYMANSKI on 02/15/18 0350 Carvedilol (Carvedilol) 6.25 Mg Tablet, 6.25 MG PO DAILY, (Reported) Entered as Reported by: CELSO MARLOW on 07/25/17 1535 Cefdinir (Cefdinir) 300 Mg Capsule, 300 MG PO BID Prescribed by: ARUN BRO on 02/22/21 1410 Clopidogrel Bisulfate (Clopidogrel) 75 Mg Tablet, 75 MG PO DAILY, (Reported) Entered as Reported by: JEFF LEWIS on 11/08/19 1527 Fish Oil/Dha/Epa (Fish Oil 1,200 mg Fish Oil) 1 Each Capsule, 1 EACH PO DAILY, (Reported) Entered as Reported by: JEFF LEWIS on 06/29/20 1251 Isosorbide Mononitrate (Isosorbide Mononitrate ER) 30 Mg Tab.er.24h, 30 MG PO DAILY, (Reported) Entered as Reported by: PASHA GALEANA on 07/25/16 0945 Mirtazapine (Mirtazapine) 30 Mg Tablet, 30 MG PO HS, (Reported) Entered as Reported by: CELSO SZYMANSKI on 02/15/18 0350 Montelukast Sodium (Montelukast Sodium) 10 Mg Tablet, 10 MG PO DAILY, (Reported) Entered as Reported by: JEFF LEWIS on 06/29/20 1249 Nitroglycerin (Nitrostat) 0.4 Mg Tab.subl, 0.4 MG PO UD PRN for CHEST PAIN, (Reported) Entered as Reported by: PASHA GALEANA on 07/25/16 0945 Prednisone (Prednisone) 10 Mg Tab.ds.pk, 10 MG PO DAILY Prescribed by: ROHIT SLA on 11/27/20 1233 Ranolazine (Ranolazine ER) 1,000 Mg Tab.er.12h, 1,000 MG PO DAILY, (Reported) Entered as Reported by: JEFF LEWIS on 06/29/20 1249 Sertraline HCl (Sertraline HCl) 100 Mg Tablet, 200 MG PO DAILY, (Reported) Entered as Reported by: JEFF LEWIS on 11/08/19 1527 Review of Systems Review of Systems Constitutional: no symptoms reported EENTM: see HPI Respiratory: no symptoms reported Cardiovascular: see HPI Gastrointestinal: no symptoms reported Genitourinary: no symptoms reported Musculoskeletal: see HPI Skin: other (BRUISING TO NECK AT SURGICAL SITE) Psychiatric/Neurological: See HPI Hematologic/Lymphatic: See HPI Immunological/Allergic: no symptoms reported Past Tpmuhvk-Sskcjo-Szfaol Hx Patient Social History Smoking Status: Former Smoker Substance use?: No Alcohol Use?: No Immunizations Up To Date Tetanus Booster (TDap): Unknown PED Vaccines UTD: No First/Initial COVID19 Vaccinat: utd Second COVID19 Vaccination Guillermo: utd Third COVID19 Vaccination Date: utd COVID19 Vaccine Legal Mediator: NAYE Seasonal Allergies Seasonal Allergies: No Past Medical History Surgery/Hospitalization HX: [place] 2015 Surgeries: Yes (LEFT INGUINAL HERNIA;CABG WITH STENTS IN HEART AND LEG) Abdominal, Cardiac, CABG, Coronary Stent, Tonsillectomy, Vascular Surgery Respiratory: Yes (WEARS O2 AT 5L/NC CONTINUOUSLY. RUL PULMONARY NODULE) Pneumonia, Chronic Bronchitis, COPD Currently Using CPAP: No Currently Using BIPAP: No Cardiac: Yes (STENT X1/ANGIO L EXT ILIAC ART;CABG/STENT X4;CAROTID DZ;CHF;CARDIAC ARREST) Coronary Artery Disease, Deep Vein Thrombosis, Heart Attack, High Cholesterol, Hypertension, Peripheral Vascular Neurological: Yes Stroke Reproductive Disorders: No Sexually Transmitted Disease: No HIV/AIDS: No Genitourinary: No Gastrointestinal: Yes Abdominal Hernia, Gastroesophageal Reflux, Diverticulosis, Ulcer Musculoskeletal: Yes Arthritis, Chronic Back Pain Endocrine: No HEENT: No Loss of Vision: Denies Hearing Impairment: Denies Cancer: No Psychosocial: Yes Sleep Difficulties, Anxiety, Schizophrenia, Depression Integumentary: No Blood Disorders: No Adverse Reaction/Blood Tranf: No Family Medical History Diabetes mellitus 19 MOTHER FH: heart disease 19 FATHER Heart Disease, Diabetes SOCIAL HX: -HX OF ALCOHOL ABUSE--CLAIMS HE QUIT YEARS AGO -DENIES DRUG USE -SMOKED 2-3 PPD--QUIT 2017 PSH: -CABG--1 VESSEL BYPASS -CARDIAC CATHS AND STENTS X 4, WITH ANGIOPLASTIES--LAST CARDIAC CATH 03/2018--PATENT STENT TO PROXIMAL LAD TO FIRST DIAGONAL, COMPLETE OCCLUSION OF MID LAD AND TO VEIN GRAFT TO LAD; EF 45-50%--NO INTERVENTION DONE AT THAT TIME AND FINDINGS WERE THE SAME THOSE FOUND ON CARDIAC CATH IN 2014 -ANGIOPLASTY AND STENT X 1 TO LEFT LEG/EXTERNAL ILIAC ARTERY 02/2017 -LEFT INGUINAL HERNIA REPAIR -TONSILLECTOMY ADDITIONAL PMH: -HX OF CARDIAC ARREST -CAROTID DISEASE--SEVERE ON RIGHT -RBBB ; LAFB Physical Exam Vital Signs Vital Signs - First Documented 05/31/21 05/31/21 12:40 16:03 Temp 36.3 Pulse 80 Resp 16 B/P (MAP) 161/97 (118) Pulse Ox 98 O2 Delivery Nasal Cannula O2 Flow Rate 4.00 Capillary Refill : Less Than 3 Seconds Height, Weight, BMI Height: 5'8.00" Weight: 174lbs. 0.0oz. 78.274342ks; 24.00 BMI Method:Stated General Appearance: No Apparent Distress, WD/WN HEENT: Other (EDENTULOUS. MODERATE SWELLING TO RIGHT MANDIBLE AREA. ) Neck: Full Range of Motion, Other (RIGHT NECK WITH INTACT SURGICAL WOUND WITH MILD TO MODERATE SWELLING AND BRUISING AROUND THE SITE. NO BLEEDING OR OR DRAINAGE FROM THE AREA. ) Respiratory: Normal Breath Sounds, No Accessory Muscle Use, No Respiratory Distress Cardiovascular: Regular Rate, Rhythm, No Murmur Extremity: Normal Capillary Refill, Normal Range of Motion, Other (RIGHT ARM WITH MILD SWELLING, AND BRUSING AND TENDERNESS OVER RIGHT DISTAL RADIAL ARTERY. ALL PULSES AND STRONG, EQUAL AND INTACT BILATERALLY. RIGHT ARM IS PALER THAN LEFT ARM, BUT NO CYANOSIS AND GOOD CAPILLARY REFILL. NON TENDER AND FULL ROM. 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 II-XII Norm as Tested Skin: Warm/Dry Progress/Results/Core Measures Suspected Sepsis SIRS Temperature: Pulse: 80 Respiratory Rate: 16 Laboratory Tests 05/31/21 13:02: White Blood Count 4.1L Blood Pressure 161 /97 Mean: 118 Laboratory Tests 05/31/21 13:02: Creatinine 0.68, INR Comment 0.9, Platelet Count 121L, Total Bilirubin 0.4 Results/Orders Lab Results Laboratory Tests Test 05/31/21 13:02 Range/Units White Blood Count 4.1 L 4.3-11.0 10^3/uL Red Blood Count 3.25 L 4.30-5.52 10^6/uL Hemoglobin 9.3 L 13.3-17.7 g/dL Hematocrit 32 L 40-54 % Mean Corpuscular Volume 99 80-99 fL Mean Corpuscular Hemoglobin 29 25-34 pg Mean Corpuscular Hemoglobin Concent 29 L 32-36 g/dL Red Cell Distribution Width 12.7 10.0-14.5 % Platelet Count 121 L 130-400 10^3/uL Mean Platelet Volume 10.2 9.0-12.2 fL Immature Granulocyte % (Auto) 0 % Neutrophils (%) (Auto) 66 42-75 % Lymphocytes (%) (Auto) 21 12-44 % Monocytes (%) (Auto) 12 0-12 % Eosinophils (%) (Auto) 1 0-10 % Basophils (%) (Auto) 0 0-10 % Neutrophils # (Auto) 2.7 1.8-7.8 10^3/uL Lymphocytes # (Auto) 0.9 L 1.0-4.0 10^3/uL Monocytes # (Auto) 0.5 0.0-1.0 10^3/uL Eosinophils # (Auto) 0.0 0.0-0.3 10^3/uL Basophils # (Auto) 0.0 0.0-0.1 10^3/uL Immature Granulocyte # (Auto) 0.0 0.0-0.1 10^3/uL Percent Immature Platelet Fraction 6.0 0.0-7.6 % Erythrocyte Sedimentation Rate 34 H 0-30 MM/HR Prothrombin Time 12.9 12.2-14.7 SEC INR Comment 0.9 0.8-1.4 Activated Partial Thromboplast Time 35 24-35 SEC Sodium Level 141 135-145 MMOL/L Potassium Level 4.1 3.6-5.0 MMOL/L Chloride Level 93 L 98-107 MMOL/L Carbon Dioxide Level 41 H 21-32 MMOL/L Anion Gap 7 5-14 MMOL/L Blood Urea Nitrogen 5 L 7-18 MG/DL Creatinine 0.68 0.60-1.30 MG/DL Estimat Glomerular Filtration Rate 117 BUN/Creatinine Ratio 7 Glucose Level 117 H 70-105 MG/DL Calcium Level 9.2 8.5-10.1 MG/DL Corrected Calcium 9.5 8.5-10.1 MG/DL Magnesium Level 1.8 1.6-2.4 MG/DL Total Bilirubin 0.4 0.1-1.0 MG/DL Aspartate Amino Transf (AST/SGOT) 21 5-34 U/L Alanine Aminotransferase (ALT/SGPT) 12 0-55 U/L Alkaline Phosphatase 75 40-136 U/L C-Reactive Protein High Sensitivity 7.69 H 0.00-0.50 MG/DL Total Protein 6.6 6.4-8.2 GM/DL Albumin 3.6 3.2-4.5 GM/DL Amylase Level 28 25-125 U/L Lipase 10 8-78 U/L My Orders Orders - DEBBIE ESPINOSA DO Ed Iv/Invasive Line Start (05/31/21 12:47) Monitor-Rhythm Ecg Trace Only (05/31/21 12:47) Ct Neck (Soft Tissue) W (05/31/21 12:47) Chest 1 View, Ap/Pa Only (05/31/21 12:47) Us Right Up Ext Arterial [id number] (05/31/21 12:47) Us Venous Upper Ext Rt (05/31/21 12:47) Amylase (05/31/21 12:47) Cbc With Automated Diff (05/31/21 12:47) Comprehensive Metabolic Panel (05/31/21 12:47) Hs C Reactive Protein (05/31/21 12:47) Lipase (05/31/21 12:47) Magnesium (05/31/21 12:47) Protime With Inr (05/31/21 12:47) Partial Thromboplastin Time (05/31/21 12:47) Erythrocyte Sedimentation Rate (05/31/21 12:47) Iohexol Injection (Omnipaque 350 Mg/Ml 1 (05/31/21 13:45) Received Contrast (Hold Metformin- Contr (05/31/21 13:45) Sodium Chloride Flush (Catheter Flush Sy (05/31/21 13:45) Ns (Ivpb) (Sodium Chloride 0.9% Ivpb Bag (05/31/21 13:45) Medications Given in ED Vital Signs/I&O 05/31/21 05/31/21 12:40 16:03 Temp 36.3 Pulse 80 81 Resp 16 16 B/P (MAP) 161/97 (118) 131/70 Pulse Ox 98 99 O2 Delivery Nasal Cannula Nasal Cannula O2 Flow Rate 4.00 Capillary Refill : Less Than 3 Seconds Blood Pressure Mean: 118 Progress Note : Progress Note MARKED DELAY IN OBTAINING ULTRASOUND AND CT REPORTS ( MUCH LATER WAS INFORMED THAT CHANELLE WAS DOWN ) Diagnostic Imaging Comments CXR--PER RADIOLOGIST REPORT AT 0126 FINDINGS: Single view of the chest demonstrates slight cardiac enlargement without pulmonary edema. There is slightly increased right-sided effusion. The left lung is clear. There is no pneumothorax. Sternal wires are midline. IMPRESSION: 1. Slightly increased right-sided effusion. 2. No pulmonary edema. ULTRASOUND AND CT REPORTS PER RADIOLOGIST VIA PHONE AT 1530 ARTERIAL AND VENOUS ULTRASOUNDS OF RIGHT ARM--NORMAL FLOW. NO EMBOLI. CT NECK SOFT TISSUES--EDEMA TO TISSUES, NO FOCAL FLUID COLLECTION OR EVIDENCE OF HEMATOMA. Reviewed: Reviewed by Me Departure Impression Primary Impression: S/P RIGHT CAROTID ENDARTERECTOMY Additional Impressions: POST OP SWELLING TO RIGHT NECK AND FACE POST OP SWELLING RIGHT ARM Disposition: 01 HOME, SELF-CARE Condition: Stable Departure-Patient Inst. Decision time for Depature: 15:35 Referrals: SONYA FERNANDEZ MD (PCP) Primary Care Physician Patient Instructions: Swelling Add. Discharge Instructions: CONTINUE ALL PREVIOUS POST OP INSTRUCTIONS ICE TO SWOLLEN AREAS AT 20 MINUTE INTERVALS FOLLOW UP WITH YOUR SURGEON IF YOUR SYMPTOMS WORSEN DEBBIE ESPINOSA DO May 31, 2021 12:59
[2021-05-31 13:11] LABS: BASOPHILS % (AUTO) 0 % (0-10); MEAN CORPUSCULAR VOLUME 99 fL (80-99)
[2021-05-31 13:13] LABS: EOSINOPHILS % (AUTO) 1 % (0-10); HEMATOCRIT 32 % (40-54); HEMOGLOBIN 9.3 g/dL (13.3-17.7); LYMPHOCYTES # (AUTO) 0.9 10^3/uL (1.0-4.0); LYMPHOCYTES % (AUTO) 21 % (12-44); MEAN CORPUSCULAR HEMOGLOBIN 29 pg (25-34); MEAN CORPUSCULAR HGB CONC 29 g/dL (32-36); MEAN PLATELET VOLUME 10.2 fL (9.0-12.2); MONOCYTES # (AUTO) 0.5 10^3/uL (0.0-1.0); MONOCYTES % (AUTO) 12 % (0-12); NEUTROPHILS # (AUTO) 2.7 10^3/uL (1.8-7.8); NEUTROPHILS % (AUTO) 66 % (42-75); PLATELET COUNT 121 10^3/uL (130-400); WHITE BLOOD COUNT 4.1 10^3/uL (4.3-11.0)
--- NOTE | 2021-05-31 13:22 | Diagnostic Imaging Report ---
INDICATION: Chest pain, coronary artery disease, swelling. COMPARISON: 02/22/2021 FINDINGS: Single view of the chest demonstrates slight cardiac enlargement without pulmonary edema. There is slightly increased right-sided effusion. The left lung is clear. There is no pneumothorax. Sternal wires are midline. IMPRESSION: 1. Slightly increased right-sided effusion. 2. No pulmonary edema. Dictated by: Dictated on workstation # [id number]
[2021-05-31 13:26] LABS: INR 0.9 (0.8-1.4); PROTHROMBIN TIME PATIENT 12.9 SEC (12.2-14.7)
[2021-05-31 13:35] LABS: ERYTHROCYTE SEDIMENTATION RATE 34 MM/HR (0-30)
[2021-05-31 13:37] LABS: ALBUMIN 3.6 GM/DL (3.2-4.5)
[2021-05-31 13:38] LABS: POTASSIUM 4.1 MMOL/L (3.6-5.0)
[2021-05-31 13:39] LABS: CALCIUM 9.2 MG/DL (8.5-10.1)
[2021-05-31 13:40] LABS: TOTAL PROTEIN 6.6 GM/DL (6.4-8.2)
[2021-05-31 13:42] LABS: BILIRUBIN,TOTAL 0.4 MG/DL (0.1-1.0)
[2021-05-31 13:44] LABS: CREATININE SERUM 0.68 MG/DL (0.60-1.30)
[2021-05-31] MEDS ORDERED: NS 100 ML (IVPB) BAG IV ONE (13:45)
[2021-05-31] MEDS ORDERED: IOHEXOL 350 MG/ML 100 ML (OMNIPAQUE 350) VIAL IV ONE (13:45)
[2021-05-31] MEDS ORDERED: HOLD METFORMIN - RECEIVED CONTRAST 20 ML VIAL IV SCH (13:45)
[2021-05-31] MEDS ORDERED: CATHETER FLUSH 10 ML SYR IV PRN (13:45)
[2021-05-31 13:46] LABS: MAGNESIUM 1.8 MG/DL (1.6-2.4)
[2021-05-31 16:03] VITALS: BP 131/70
--- NOTE | 2021-05-31 18:18 | Diagnostic Imaging Report ---
PROCEDURE: CT neck soft tissue with contrast. TECHNIQUE: Multiple contiguous axial images were obtained through the neck after the administration of contrast. Auto Exposure Controls were utilized during the CT exam to meet ALARA standards for radiation dose reduction. INDICATION: Status post right carotid surgery on 05/28/2021. Patient now complains of right arm, face, and neck swelling. FINDINGS: There is some generalized edema and stranding in the superficial and deep soft tissues of the right neck. However, no discrete fluid collection is identified. There is no hematoma or abscess identified. The jugular veins appear to be patent bilaterally. The common and internal carotid arteries appear to be widely patent bilaterally. No retropharyngeal or prevertebral abscess is identified. No thyroid mass is seen. No cervical lymphadenopathy is detected. IMPRESSION: There are postsurgical changes in the right neck with moderate amount of edema throughout the superficial and deep soft tissues of the right neck. However, no hematoma or fluid collection is identified. Dictated by: Dictated on workstation # [id number]
--- NOTE | 2021-05-31 18:18 | Diagnostic Imaging Report ---
HISTORY: Right arm swelling, status post carotid surgery. The right internal jugular vein as well as the right subclavian and axillary veins are widely patent. Brachial vein is patent. The basilic and cephalic as well as a radial and ulnar veins are patent. No thrombus is identified. No fluid collections are identified. IMPRESSION: No evidence of right upper extremity DVT. Dictated by: Dictated on workstation # [id number]
--- NOTE | 2021-05-31 18:18 | Diagnostic Imaging Report ---
INDICATION: Right arm pain after carotid surgery. FINDINGS: There are normal biphasic and triphasic waveforms throughout the right upper extremity arterial system. Velocities within the subclavian, axillary, brachial, as well as the radial and ulnar arteries are normal. There is no high-grade stenosis or occlusion. No fluid collection is identified. IMPRESSION: Unremarkable right upper extremity arterial Doppler. Dictated by: Dictated on workstation # [id number]
== END 2021-05-31 16:03 | disposition home or self-care (01) ==
LOC: EDUNIT# 12:31 → ER 12:34
DX: R22.1 Localized swelling, mass and lump, neck (principal); R22.31 Localized swelling, mass and lump, right upper limb
CPT/HCPCS: 36415; 70491; 71045; 80053; 82150; 83690; 83735; 85025; 85610; 85652; 85730; 86141; 93041; 93931

== ENCOUNTER 2021-08-18 22:42 | Observation (INO) | payer MEDICARE, MEDICAID ==
[~2021-08-18] VITALS: Ht 172.7 cm; Wt 77.4 kg
[2021-08-18] MEDS ORDERED: morphine INJ 10 MG/ML 1ML (SYR OR VIAL) IVP ONE (23:00)
[2021-08-18 23:10] LABS: BASOPHILS % (AUTO) 0 % (0-10); EOSINOPHILS # (AUTO) 0.1 10^3/uL (0.0-0.3); EOSINOPHILS % (AUTO) 2 % (0-10); HEMATOCRIT 33 % (40-54); HEMOGLOBIN 10.1 g/dL (13.3-17.7); LYMPHOCYTES # (AUTO) 1.8 10^3/uL (1.0-4.0); LYMPHOCYTES % (AUTO) 32 % (12-44); MEAN CORPUSCULAR HEMOGLOBIN 30 pg (25-34); MEAN CORPUSCULAR HGB CONC 31 g/dL (32-36); MEAN CORPUSCULAR VOLUME 98 fL (80-99); MEAN PLATELET VOLUME 10.4 fL (9.0-12.2); MONOCYTES # (AUTO) 0.5 10^3/uL (0.0-1.0); MONOCYTES % (AUTO) 9 % (0-12); NEUTROPHILS # (AUTO) 3.2 10^3/uL (1.8-7.8); NEUTROPHILS % (AUTO) 56 % (42-75); PLATELET COUNT 146 10^3/uL (130-400); WHITE BLOOD COUNT 5.7 10^3/uL (4.3-11.0)
[2021-08-18 23:18] LABS: ALBUMIN 3.7 GM/DL (3.2-4.5); POTASSIUM 4.3 MMOL/L (3.6-5.0)
[2021-08-18 23:19] LABS: INR 0.8 (0.8-1.4); PROTHROMBIN TIME PATIENT 11.4 SEC (12.2-14.7)
[2021-08-18 23:20] LABS: CALCIUM 9.6 MG/DL (8.5-10.1)
[2021-08-18 23:21] LABS: TOTAL PROTEIN 6.6 GM/DL (6.4-8.2)
[2021-08-18 23:22] LABS: BILIRUBIN,TOTAL 0.2 MG/DL (0.1-1.0)
[2021-08-18 23:24] LABS: CREATININE SERUM 0.85 MG/DL (0.60-1.30)
[2021-08-18 23:27] LABS: MAGNESIUM 1.8 MG/DL (1.6-2.4)
[2021-08-19] MEDS ORDERED: NITROGLYCERIN 2% OINT 1 GM UNIT DOSE PACKET TOP ONE
[2021-08-19] MEDS ORDERED: morphine INJ 10 MG/ML 1ML (SYR OR VIAL) IVP ONE
--- NOTE | 2021-08-19 00:22 | ED Chest Pain ---
General Chief Complaint: Chest Pain Stated Complaint: CHEST PAIN Nursing Triage Note: PT ARRIVED BY [facility]. PT REPORTS 9/10 CHEST PAIN AT HOME THAT RADIATES DOWN LEFT ARM. PT STATES HE TOOK NITRO AND ASPIRIN AT HOME PRIOR TO EMS ARRIVAL. EMS REPORTS GIVING 2 ADDITIONAL NITRO WITH NO RELIEF. EMS REPORTS GIVING ADDITIONAL ASPIRIN TO TOTAL 324. PT ON 4L O2 BY MT ON ARRIVAL WHICH IS WHAT HE WEARS AT HOME Source: patient, EMS Exam Limitations: no limitations History of Present Illness Date Seen by Provider: Aug 18, 2021 Time Seen by Provider: 22:42 Initial Comments Here with report of acute onset of chest pain at about 8:30 PM tonight. He did take 2 aspirin as well as 2 nitro which did not help. Ultimately he called EMS. They gave 2 more baby aspirin and 2 more nitro which did not stop the pain. Reports pain is 9 out of 10 and sharp on his left upper chest and radiates to the left shoulder and left upper arm. Does have significant cardiac disease with previous single bypass and multiple stents that have all failed. He follows with Dr. Carrion. Also follows with Dr. Hanks. Reports taking his meds as directed. Denies nausea, vomiting, breathing problems or weakness but does h ave dizziness. States he was unable to eat dinner tonight because of the onset of pain. Blood pressure was noted to be high but improved after nitro by EMS. 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 NTG SL MILK OF LIME SLAKER: Yes Associated Symptoms: No diaphoresis; dizziness; No fatigue, No fever/chills, No nausea/vomiting, No shortness of breath, No weakness Allergies and Home Medications Allergies Coded Allergies: budesonide (Verified Allergy, Severe, angioedema, 12/06/18) formoterol (Verified Allergy, Severe, angioedema, 12/06/18) tetanus toxoid, adsorbed (Verified Allergy, Mild, hives, 12/06/18) DOROTA Inhibitors (Verified Allergy, Unknown, Angioedema, 12/06/18) Patient Home Medication List Home Medication List Reviewed: Yes Albuterol Sulfate (Ventolin Hfa) 1 Puff Puff, 2 PUFF IH PRN PRN for SHORTNESS OF BREATH, (Reported) Entered as Reported by: GAVIN RUBIO on 03/18/18 0737 Amlodipine Besylate (Amlodipine Besylate) 5 Mg Tablet, 5 MG PO DAILY, (Reported) Entered as Reported by: CELSO SZYMANSKI on 02/15/18 035 Aripiprazole (Aripiprazole) 30 Mg Tablet, 30 MG PO DAILY, (Reported) Entered as Reported by: JEFF LEWIS on 06/29/20 1249 Aspirin (Aspirin) 81 Mg Tab.chew, 81 MG PO DAILY, (Reported) Entered as Reported by: JEFF LEWIS on 05/01/20 1344 Atorvastatin Calcium (Atorvastatin Calcium) 80 Mg Tablet, 80 MG PO DAILY, (Reported) Entered as Reported by: GAVIN RUBIO on 03/18/18736 Azithromycin (Azithromycin) 250 Mg Tablet, 250 MG PO DAILY Prescribed by: ARUN BRO on 02/22/21 1410 Bupropion HCl (Bupropion HCl) 75 Mg Tablet, 75 MG PO DAILY, (Reported) Entered as Reported by: CELSO SZYMANSKI on 02/15/18 035 Carvedilol (Carvedilol) 6.25 Mg Tablet, 6.25 MG PO DAILY, (Reported) Entered as Reported by: CELSO MARLOW on 07/25/17 1535 Cefdinir (Cefdinir) 300 Mg Capsule, 300 MG PO BID Prescribed by: ARUN BRO on 02/22/21 1410 Clopidogrel Bisulfate (Clopidogrel) 75 Mg Tablet, 75 MG PO DAILY, (Reported) Entered as Reported by: JEFF LEIWS on 11/08/19 1527 Fish Oil/Dha/Epa (Fish Oil 1,200 mg Fish Oil) 1 Each Capsule, 1 EACH PO DAILY, (Reported) Entered as Reported by: JEFF LEWIS on 06/29/20 1251 Isosorbide Mononitrate (Isosorbide Mononitrate ER) 30 Mg Tab.er.24h, 30 MG PO DAILY, (Reported) Entered as Reported by: PASHA GALEANA on 07/25/16 0945 Mirtazapine (Mirtazapine) 30 Mg Tablet, 30 MG PO HS, (Reported) Entered as Reported by: CELSO SZYMANSKI on 02/15/18 035 Montelukast Sodium (Montelukast Sodium) 10 Mg Tablet, 10 MG PO DAILY, (Reported) Entered as Reported by: JEFF LEWIS on 06/29/20 1249 Nitroglycerin (Nitrostat) 0.4 Mg Tab.subl, 0.4 MG PO UD PRN for CHEST PAIN, (Reported) Entered as Reported by: PASHA GALEANA on 07/25/16 0945 Prednisone (Prednisone) 10 Mg Tab.ds.pk, 10 MG PO DAILY Prescribed by: ROHIT SAL on 11/27/20 1233 Ranolazine (Ranolazine ER) 1,000 Mg Tab.er.12h, 1,000 MG PO DAILY, (Reported) Entered as Reported by: JEFF LEWIS on 06/29/20 1249 Sertraline HCl (Sertraline HCl) 100 Mg Tablet, 200 MG PO DAILY, (Reported) Entered as Reported by: JEFF LEWIS on 11/08/19 1527 Review of Systems Review of Systems Constitutional: see HPI; No chills, No fever EENTM: No Symptoms Reported Respiratory: Denies Cough, Denies Shortness of Air Cardiovascular: Chest Pain; Denies Edema, Denies Irregular Heart Rate; Lightheadedness Gastrointestinal: Denies Nausea, Denies Vomiting Genitourinary: No Symptoms Reported Musculoskeletal: no symptoms reported All Other Systems Reviewed Negative Unless Noted: Yes Past Scujvip-Nwnmaq-Sdhpqy Hx Patient Social History Tobacco Use?: Yes Tobacco type used: Cigarettes Smoking Status: Former Smoker Substance use?: No Alcohol Use?: No Pt feels they are or have been: No Immunizations Up To Date Tetanus Booster (TDap): Unknown PED Vaccines UTD: No Influenza Vaccine Up-to-Date: No; Not Current First/Initial COVID19 Vaccinat: utd Second COVID19 Vaccination Guillermo: utd Third COVID19 Vaccination Date: utd Seasonal Allergies Seasonal Allergies: No Past Medical History Surgery/Hospitalization HX: OR 2016 Surgeries: Yes (LEFT INGUINAL HERNIA;CABG WITH STENTS IN HEART AND LEG) Abdominal, Cardiac, CABG, Coronary Stent, Tonsillectomy, Vascular Surgery Respiratory: Yes (WEARS O2 AT 5L/NC CONTINUOUSLY. RUL PULMONARY NODULE) Pneumonia, Chronic Bronchitis, COPD Currently Using CPAP: No Currently Using BIPAP: No Cardiac: Yes (STENT X1/ANGIO L EXT ILIAC ART;CABG/STENT X4;CAROTID DZ;CHF;CARDIAC ARREST) Coronary Artery Disease, Deep Vein Thrombosis, Heart Attack, High Cholesterol, Hypertension, Peripheral Vascular Neurological: Yes Stroke Reproductive Disorders: No Sexually Transmitted Disease: No HIV/AIDS: No Genitourinary: No Gastrointestinal: Yes Abdominal Hernia, Gastroesophageal Reflux, Diverticulosis, Ulcer Musculoskeletal: Yes Arthritis, Chronic Back Pain Endocrine: No HEENT: No Loss of Vision: Denies Hearing Impairment: Denies Cancer: No Psychosocial: Yes Sleep Difficulties, Anxiety, Schizophrenia, Depression Integumentary: No Blood Disorders: No Adverse Reaction/Blood Tranf: No Family Medical History Reviewed Nursing Family Hx Diabetes mellitus 19 MOTHER FH: heart disease 19 FATHER Heart Disease, Diabetes SOCIAL HX: -HX OF ALCOHOL ABUSE--CLAIMS HE QUIT YEARS AGO -DENIES DRUG USE -SMOKED 2-3 PPD--QUIT 2017 PSH: -CABG--1 VESSEL BYPASS -CARDIAC CATHS AND STENTS X 4, WITH ANGIOPLASTIES--LAST CARDIAC CATH 03/2018--PATENT STENT TO PROXIMAL LAD TO FIRST DIAGONAL, COMPLETE OCCLUSION OF MID LAD AND TO VEIN GRAFT TO LAD; EF 45-50%--NO INTERVENTION DONE AT THAT TIME AND FINDINGS WERE THE SAME THOSE FOUND ON CARDIAC CATH IN 2014 -ANGIOPLASTY AND STENT X 1 TO LEFT LEG/EXTERNAL ILIAC ARTERY 02/2017 -LEFT INGUINAL HERNIA REPAIR -TONSILLECTOMY ADDITIONAL PMH: -HX OF CARDIAC ARREST -CAROTID DISEASE--SEVERE ON RIGHT -RBBB ; LAFB Physical Exam Vital Signs Vital Signs - First Documented 08/18/21 22:42 Temp 36.7 Pulse 85 Resp 28 B/P (MAP) 162/88 (112) Pulse Ox 100 O2 Delivery Nasal Cannula O2 Flow Rate 4.00 Capillary Refill : Height, Weight, BMI Height: 5'8.00" Weight: 174lbs. 0.0oz. 78.322236jw; 28.00 BMI Method:Stated General Appearance: No Apparent Distress, WD/WN HEENT: PERRL/EOMI, Pharynx Normal Neck: Non Tender, Supple Respiratory: No Accessory Muscle Use, Decreased Breath Sounds, Wheezing Cardiovascular: Regular Rate, Rhythm, No Murmur Gastrointestinal: Non Tender, Soft Extremity: Normal Range of Motion, Non Tender, No Calf Tenderness, No Pedal Edema Neurologic/Psychiatric: Alert, Oriented x3 Skin: Normal Color, Warm/Dry Progress/Results/Core Measures Results/Orders Lab Results Laboratory Tests Test 08/18/21 22:47 08/19/21 00:57 Range/Units White Blood Count 5.7 4.3-11.0 10^3/uL Red Blood Count 3.36 L 4.30-5.52 10^6/uL Hemoglobin 10.1 L 13.3-17.7 g/dL Hematocrit 33 L 40-54 % Mean Corpuscular Volume 98 80-99 fL Mean Corpuscular Hemoglobin 30 25-34 pg Mean Corpuscular Hemoglobin Concent 31 L 32-36 g/dL Red Cell Distribution Width 12.9 10.0-14.5 % Platelet Count 146 130-400 10^3/uL Mean Platelet Volume 10.4 9.0-12.2 fL Immature Granulocyte % (Auto) 0 % Neutrophils (%) (Auto) 56 42-75 % Lymphocytes (%) (Auto) 32 12-44 % Monocytes (%) (Auto) 9 0-12 % Eosinophils (%) (Auto) 2 0-10 % Basophils (%) (Auto) 0 0-10 % Neutrophils # (Auto) 3.2 1.8-7.8 10^3/uL Lymphocytes # (Auto) 1.8 1.0-4.0 10^3/uL Monocytes # (Auto) 0.5 0.0-1.0 10^3/uL Eosinophils # (Auto) 0.1 0.0-0.3 10^3/uL Basophils # (Auto) 0.0 0.0-0.1 10^3/uL Immature Granulocyte # (Auto) 0.0 0.0-0.1 10^3/uL Prothrombin Time 11.4 L 12.2-14.7 SEC INR Comment 0.8 0.8-1.4 Activated Partial Thromboplast Time 33 24-35 SEC Sodium Level 141 135-145 MMOL/L Potassium Level 4.3 3.6-5.0 MMOL/L Chloride Level 93 L 98-107 MMOL/L Carbon Dioxide Level 38 H 21-32 MMOL/L Anion Gap 10 5-14 MMOL/L Blood Urea Nitrogen 9 7-18 MG/DL Creatinine 0.85 0.60-1.30 MG/DL Estimat Glomerular Filtration Rate 96 BUN/Creatinine Ratio 11 Glucose Level 85 70-105 MG/DL Calcium Level 9.6 8.5-10.1 MG/DL Corrected Calcium 9.8 8.5-10.1 MG/DL Magnesium Level 1.8 1.6-2.4 MG/DL Total Bilirubin 0.2 0.1-1.0 MG/DL Aspartate Amino Transf (AST/SGOT) 21 5-34 U/L Alanine Aminotransferase (ALT/SGPT) 21 0-55 U/L Alkaline Phosphatase 101 40-136 U/L Myoglobin 34.2 10.0-92.0 NG/ML Troponin I < 0.028 < 0.028 <0.028 NG/ML B-Type Natriuretic Peptide 56.5 <100.0 PG/ML Total Protein 6.6 6.4-8.2 GM/DL Albumin 3.7 3.2-4.5 GM/DL My Orders Orders - ANTOINETTE SANDHU MD Morphine Injection (Morphine Injection (08/18/21 23:00) Nitroglycerin Ointment (Nitrobid Ointme (08/19/21 00:00) Morphine Injection (Morphine Injection (08/19/21 00:00) Troponin I [place] (08/19/21 00:55) Medications Given in ED Current Medications Medications Dose Ordered Sig/Shira Route Start Time Stop Time Status Last Admin Dose Admin Morphine Sulfate 2 mg ONCE ONCE IVP 08/18/21 23:00 08/18/21 23:01 DC 08/18/21 23:06 2 MG Morphine Sulfate 4 mg ONCE ONCE IVP 08/19/21 00:00 08/19/21 00:01 DC 08/19/21 00:08 4 MG Nitroglycerin 1 inch ONCE ONCE TOP 08/19/21 00:00 08/19/21 00:01 DC 08/19/21 00:08 1 INCH Vital Signs/I&O 08/18/21 08/18/21 22:42 22:42 Temp 36.7 Pulse 85 Resp 28 B/P (MAP) 162/88 (112) Pulse Ox 100 100 O2 Delivery Nasal Cannula O2 Flow Rate 4.00 4.00 Blood Pressure Mean: 112 Progress Progress Note : Progress Note Seen and evaluated. Chest pain protocol initiated. No indication for aspirin or nitro at this point as patient just had that from EMS. Morphine 2 mg IV ordered. Monitor patient. 2355: Morphine 4 mg IV and Nitropaste 1 inch to the chest wall initiated. Patient still has pain but initial set is negative. We will repeat labs and see if we can get his pain improved. Monitor patient. 0000: Morphine 4 mg IV for pain and we will initiate nitroglycerin 1 inch to chest wall. We will repeat troponin in about an hour 0100: Repeat troponin ordered and pending. 0355 (time delayed due to daylight saving times clock moving forward 1 hour) second troponin negative. Patient has persistent chest pain at 4 out of 10 but states much better now. Does have significant cardiac history. Likely suffering from unstable angina currently. Due to his history and persistent pain, we will admit for cardiac evaluation. I did discuss the case with Dr. Luque who agrees with admission. I also discussed the case with Dr. Carrion who agrees with admission and nitroglycerin continuation. Admit, observation status. Initial ECG Impression Date: Aug 18, 2021 Initial ECG Impression Time: 22:42 Initial ECG Rate: 2242 Comment Sinus rhythm with left atrial abnormality. Left axis deviation. Left anterior fascicular block noted. No evidence of ST elevation OR. Similar to previous of 02/22/2021. Interpreted by me. Diagnostic Imaging Diagonstic Imaging: Xray Plain Films/CT/US/NM/MRI: chest Comments Small right pleural effusion but otherwise no significant findings. Similar to previous. Reviewed: Reviewed by Me Departure Communication (Admissions) Time/Spoke to Admitting Phy: 03:51 Time/Spoke to Consulting Phy: 03:52 Impression Primary Impression: Unstable angina Disposition: ADMITTED INPATIENT Condition: Stable Admissions Decision to Admit Reason: Admit from ER (General) Decision to Admit/Date: Aug 19, 2021 Time/Decision to Admit Time: 03:51 Departure-Patient Inst. Referrals: SONYA HANKS MD (PCP/Family) Primary Care Physician ANTOINETTE SANDHU MD Aug 19, 2021 00:22
[2021-08-19 04:30] VITALS: BP 177/82
[2021-08-19] MEDS ORDERED: ONDANSETRON 4 MG/2 ML (SDV) Z0FRAN IVP PRN (05:15)
[2021-08-19] MEDS ORDERED: morphine INJ 4 MG/ML 1 ML (VIAL/SYRINGE) IV PRN (05:15)
[2021-08-19 05:30] VITALS: BP 128/71
[2021-08-19] MEDS ORDERED: CATHETER FLUSH 10 ML SYR IVP SCH (06:00)
[2021-08-19 06:06] LABS: BASOPHILS % (AUTO) 0 % (0-10); EOSINOPHILS # (AUTO) 0.1 10^3/uL (0.0-0.3); EOSINOPHILS % (AUTO) 2 % (0-10); HEMATOCRIT 32 % (40-54); HEMOGLOBIN 9.4 g/dL (13.3-17.7); LYMPHOCYTES # (AUTO) 1.5 10^3/uL (1.0-4.0); LYMPHOCYTES % (AUTO) 33 % (12-44); MEAN CORPUSCULAR HEMOGLOBIN 29 pg (25-34); MEAN CORPUSCULAR HGB CONC 30 g/dL (32-36); MEAN CORPUSCULAR VOLUME 98 fL (80-99); MEAN PLATELET VOLUME 10.1 fL (9.0-12.2); MONOCYTES # (AUTO) 0.4 10^3/uL (0.0-1.0); MONOCYTES % (AUTO) 9 % (0-12); NEUTROPHILS # (AUTO) 2.5 10^3/uL (1.8-7.8); NEUTROPHILS % (AUTO) 56 % (42-75); PLATELET COUNT 129 10^3/uL (130-400); WHITE BLOOD COUNT 4.5 10^3/uL (4.3-11.0)
[2021-08-19] MEDS: NITROGLYCERIN 2% OINT 1 GM UNIT DOSE PACKET TOP SCH ×2 (06:15→12:39)
--- NOTE | 2021-08-19 06:20 | Diagnostic Imaging Report ---
EXAMINATION: Chest 1 view HISTORY: Chest pain COMPARISON: 05/31/2021 FINDINGS: Heart size and pulmonary vasculature are normal. Trace right pleural effusion with right basilar atelectasis. No new consolidation or pneumothorax. Surgical changes from CABG. The osseous structures are intact. IMPRESSION: 1. Stable trace right pleural effusion with adjacent atelectasis. Dictated by: Dictated on workstation # [id number]
[2021-08-19 06:24] LABS: POTASSIUM 4.1 MMOL/L (3.6-5.0)
[2021-08-19 06:25] LABS: CALCIUM 9.4 MG/DL (8.5-10.1)
[2021-08-19 06:30] VITALS: BP 130/75
[2021-08-19 06:30] LABS: CREATININE SERUM 0.8 MG/DL (0.60-1.30)
[2021-08-19 06:50] LABS: TRIGLYCERIDES 47 MG/DL (<150); VLDL CHOLESTEROL 9 MG/DL (5-40)
[2021-08-19 06:55] LABS: CHOLESTEROL 162 MG/DL (< 200)
[2021-08-19 06:56] LABS: HDL CHOLESTEROL 62 MG/DL (40-60)
[2021-08-19 07:29] VITALS: BP 128/73
[2021-08-19 08:41] VITALS: BP 124/71
[2021-08-19] MEDS ORDERED: CLOPIDOGREL 75 MG (PLAVIX) TABLET PO SCH (09:00)
[2021-08-19] MEDS ORDERED: ASPIRIN E.C. 81 MG (ECOTRIN) TAB PO SCH (09:00)
--- NOTE | 2021-08-19 10:10 | Consultation-Cardiology ---
HPI-Cardiology Cardiology Consultation Date of Consultation 08/19/21 Date of Admission Time Seen by Provider: 10:04 Indication: Chest pain HPI 66 years old gentleman with extensive cardiac history, multiple intervention in the past, known to have inoperable coronary artery disease with occluded LAD and bypass to the LAD. Has multiple hospital admission for chest pain. Patient was in his usual state of health until last night when he woke up with severe chest pain left-sided radiating to the shoulder. Took nitroglycerin in the emergency room and reported improvement. No further episodes of chest pain. Has chronic dyspnea due to underlying severe COPD. No change from baseline. EKG and cardiac enzymes were normal. Home Medications & Allergies Allergies: Coded Allergies: budesonide (Verified Allergy, Severe, angioedema, 12/06/18) formoterol (Verified Allergy, Severe, angioedema, 12/06/18) tetanus toxoid, adsorbed (Verified Allergy, Mild, hives, 12/06/18) DOROTA Inhibitors (Verified Allergy, Unknown, Angioedema, 12/06/18) Home Medication List Reviewed: Yes ELT-Ljripe-Uzqwyp Hx Patient Social History Marital Status: Employed/Student: retired Drug of Choice: DENIES Smoking Status: Former Smoker Former smoker/When Quit: Aug 21, 2014 Type Used: Cigarettes 2nd Hand Smoke Exposure: Yes Recent Hopitalizations: No Have you traveled recently?: No Alcohol Use?: No Immunizations Up To Date Tetanus Booster (TDap): Unknown Date of Pneumonia Vaccine: Apr 26, 2020 Date of Influenza Vaccine: Apr 26, 2020 Past Medical History Discussed below Family Medical History Significant Family History: Heart Disease, Diabetes Family History: Diabetes mellitus 19 MOTHER FH: heart disease 19 FATHER Review of Systems-General Review of Systems Constitutional: see HPI; No chills, No fever; malaise EENTM: see HPI, no symptoms reported Respiratory: see HPI; No cough; dyspnea on exertion; No hemoptysis, No orthopnea, No phlegm; short of breath; No stridor, No wheezing, No other Cardiovascular: see HPI, chest pain; No edema, No Hx of Intervention, No palpitations, No syncope, No vascular heart diseas, No other Gastrointestinal: no symptoms reported, see HPI Genitourinary: no symptoms reported, see HPI Musculoskeletal: no symptoms reported, see HPI Skin: no symptoms reported, see HPI Psychiatric/Neurological: See HPI, Anxiety All Other Systems Reviewed Negative Unless Noted: Yes Reviewed Test Results Reviewed Test Results Lab Laboratory Tests Test 08/18/21 22:47 08/19/21 00:57 08/19/21 05:42 Range/Units White Blood Count 5.7 4.5 4.3-11.0 10^3/uL Red Blood Count 3.36 L 3.26 L 4.30-5.52 10^6/uL Hemoglobin 10.1 L 9.4 L 13.3-17.7 g/dL Hematocrit 33 L 32 L 40-54 % Mean Corpuscular Volume 98 98 80-99 fL Mean Corpuscular Hemoglobin 30 29 25-34 pg Mean Corpuscular Hemoglobin Concent 31 L 30 L 32-36 g/dL Red Cell Distribution Width 12.9 12.9 10.0-14.5 % Platelet Count 146 129 L 130-400 10^3/uL Mean Platelet Volume 10.4 10.1 9.0-12.2 fL Immature Granulocyte % (Auto) 0 0 % Neutrophils (%) (Auto) 56 56 42-75 % Lymphocytes (%) (Auto) 32 33 12-44 % Monocytes (%) (Auto) 9 9 0-12 % Eosinophils (%) (Auto) 2 2 0-10 % Basophils (%) (Auto) 0 0 0-10 % Neutrophils # (Auto) 3.2 2.5 1.8-7.8 10^3/uL Lymphocytes # (Auto) 1.8 1.5 1.0-4.0 10^3/uL Monocytes # (Auto) 0.5 0.4 0.0-1.0 10^3/uL Eosinophils # (Auto) 0.1 0.1 0.0-0.3 10^3/uL Basophils # (Auto) 0.0 0.0 0.0-0.1 10^3/uL Immature Granulocyte # (Auto) 0.0 0.0 0.0-0.1 10^3/uL Prothrombin Time 11.4 L 12.2-14.7 SEC INR Comment 0.8 0.8-1.4 Activated Partial Thromboplast Time 33 24-35 SEC Sodium Level 141 140 135-145 MMOL/L Potassium Level 4.3 4.1 3.6-5.0 MMOL/L Chloride Level 93 L 94 L 98-107 MMOL/L Carbon Dioxide Level 38 H 38 H 21-32 MMOL/L Anion Gap 10 8 5-14 MMOL/L Blood Urea Nitrogen 9 10 7-18 MG/DL Creatinine 0.85 0.80 0.60-1.30 MG/DL Estimat Glomerular Filtration Rate 96 98 BUN/Creatinine Ratio 11 13 Glucose Level 85 111 H 70-105 MG/DL Calcium Level 9.6 9.4 8.5-10.1 MG/DL Corrected Calcium 9.8 8.5-10.1 MG/DL Magnesium Level 1.8 1.6-2.4 MG/DL Total Bilirubin 0.2 0.1-1.0 MG/DL Aspartate Amino Transf (AST/SGOT) 21 5-34 U/L Alanine Aminotransferase (ALT/SGPT) 21 0-55 U/L Alkaline Phosphatase 101 40-136 U/L Myoglobin 34.2 10.0-92.0 NG/ML Troponin I < 0.028 < 0.028 <0.028 NG/ML B-Type Natriuretic Peptide 56.5 <100.0 PG/ML Total Protein 6.6 6.4-8.2 GM/DL Albumin 3.7 3.2-4.5 GM/DL Triglycerides Level 47 <150 MG/DL Cholesterol Level 162 < 200 MG/DL LDL Cholesterol Direct 78 1-129 MG/DL VLDL Cholesterol 9 5-40 MG/DL HDL Cholesterol 62 H 40-60 MG/DL Physical Exam Physical Exam Vital Signs Vital Signs - First Documented 08/18/21 22:42 Temp 36.7 Pulse 85 Resp 28 B/P (MAP) 162/88 (112) Pulse Ox 100 O2 Delivery Nasal Cannula O2 Flow Rate 4.00 Capillary Refill : Height, Weight, BMI Height: 5'8.00" Weight: 174lbs. 0.0oz. 78.681934kt; 25.95 BMI Method:Stated General Appearance: No Apparent Distress, WD/WN Eyes: Bilateral Eye Normal Inspection, Bilateral Eye PERRL, Bilateral Eye EOMI HEENT: PERRL/EOMI, Pharynx Normal Neck: Non Tender, Supple Respiratory: No Accessory Muscle Use, Decreased Breath Sounds, Wheezing Cardiovascular: Regular Rate, Rhythm, No Murmur, Gallop/S3 Gastrointestinal: Non Tender, Soft Back: Normal Inspection, No CVA Tenderness, No Vertebral Tenderness Extremity: Normal Range of Motion, Non Tender, No Calf Tenderness, No Pedal Edema Neurologic/Psychiatric: Alert, Oriented x3 Skin: Normal Color, Warm/Dry Lymphatic: No Adenopathy A/P-Cardiology Admission Diagnosis Chest pain Coronary artery disease Hypertension COPD Assessment/Plan Chest pain, history of chronic stable angina. History of multiple hospitalization with recurrent chest pain. Feeling better at this point. EKG and cardiac enzymes did not show any acute abnormality. Recommend conservative management and follow-up as an outpatient. Coronary artery disease, Cardiac catheterization was done in September 2014 showing total occlusion of the LAD at its midportion with occluded vein graft to the LAD did not fill with collaterals on this study, patent stent in the proximal LAD to the diagonal artery, mild disease in the circumflex and right coronary artery, prominent left ventricle with EF 45 percent. Repeat cardiac catheterization was done in March 2018 showing total occlusion of the mid LAD and the vein graft to the LAD, patent stent in the proximal LAD that was providing flow to the first diagonal branch, mild disease in the circumflex artery and right coronary artery, the apex of the left ventricular still akinetic with ejection fraction 45-50 percent. Coronary arteriotomy deemed inoperable. Conservative management is recommended. Dyspnea, severe oxygen dependency, return to baseline. Continue to monitor Peripheral edema, resolved, continue to monitor History of congestive heart failure with chronic compensated left ventricular systolic dysfunction, last echocardiogram done in June 2020 showed normal left ventricular systolic function with ejection fraction 55-65 percent with pulmonary hypertension PA pressure of 45 mmHg. Peripheral arterial disease, history of stent to the left lower extremity, having pain in his lower extremity, seen and evaluated with heart and vascular care, had angiogram and balloon angioplasty with angioscore cutting balloon 5x40 mm to the left external iliac then stenting to the left external iliac artery with 6x50 Viabahn postdilated with a Brent balloon. Done by Dr. Jackson. He has stopped following with heart and vascular care COPD, oxygen dependent. Hypertension, restart home medication monitor blood pressure Hyperlipidemia, continue to monitor lipids Tobaccoism, expressed that he has stopped smoking, encouraged to continue with smoking cessation Carotid stenosis, s had a CT angiogram reported as severe stenosis in the right carotid artery 70 to 80%, no significant stenosis on the left. Patient had right carotid endarterectomy done in May 2021 in [facility]. Recovered well. Bilateral cataract, reporting that he is scheduled for cataract surgery as an outpatient Clinical Quality Measures AMI/AHF: ASA po Prior to arrival: Yes JOSHUA CASTILLO MD Aug 19, 2021 10:10
[2021-08-19] MEDS ORDERED: NITR0.4T39 SL (10:13)
[2021-08-19 11:19] VITALS: BP 138/75
--- NOTE | 2021-08-19 11:51 | Short Stay Summary-Hospitalist ---
History of Present Illness HPI/Chief Complaint Pt is a 66yoCM with past medical history of coronary artery disease status post bypass with subsequent stenting who presented to the emergency department due to chest pain. He has been admitted multiple times with similar complaints and is very knowledgeable of his chest pain. He attempted to take nitro last night wi thout any relief he also took aspirin at home. He called EMS who repeated the aspirin and nitro without relief of his symptoms. He states that his chest pain started abruptly without exertion. He also noted that his nitro was after he took it. In the emergency department EKG was done without acute findings. And troponin was negative given extensive history he was admitted overnight for observation. His symptoms resolved. He says he has no further chest pain and is hopeful for discharge. I did discuss this with his primary headwaitress Dr. Carrion who is comfortable with discharge and outpatient follow- up. Patient requests refill of his nitro. Source: patient Date Seen 08/19/21 Time Seen by a Provider: 10:00 Attending Physician Juarez Luque MD PCP Stanford Hanks MD Referring Physician Date of Admission Aug 19, 2021 at 03:53 Home Medications & Allergies Home Medications Reviewed patient Home Medication Reconciliation performed by pharmacy medication reconciliations automotive repair technician and/or nursing. Patients Allergies have been reviewed. Allergies Allergies Coded Allergies budesonide (Verified Allergy, Severe, angioedema, 12/06/18) formoterol (Verified Allergy, Severe, angioedema, 12/06/18) tetanus toxoid, adsorbed (Verified Allergy, Mild, hives, 12/06/18) DOROTA Inhibitors (Verified Allergy, Unknown, Angioedema, 12/06/18) Past Hudqpmq-Bfxvoi-Xigtnf Hx Patient Social History Marrital Status: Employed/Student: retired Tobacco Use?: No Tobacco type used: Cigarettes Smoking Status: Former Smoker Substance use?: No Alcohol Use?: No Pt feels they are or have been: No Immunizations Up To Date Date of Influenza Vaccine: Apr 26, 2020 First/Initial COVID19 Vaccinat: utd Second COVID19 Vaccination Guillermo: utd Tetanus Booster (TDap): Unknown Hepatitis A: No Hepatitis B: No PED Vaccines UTD: No Date of Pneumonia Vaccine: Apr 26, 2020 Seasonal Allergies Seasonal Allergies: No Current Status Advance Directives: Yes Communicates: Verbally Primary Language: Belarusian Preferred Spoken Language: Belarusian Is interpretation needed?: No Sensory deficits: Hearing impairment Past Medical History Surgeries: Abdominal, Cardiac, CABG, Coronary Stent, Tonsillectomy, Vascular Surgery Pneumonia, Chronic Bronchitis, COPD Currently Using CPAP: No Currently Using BIPAP: No Coronary Artery Disease, Deep Vein Thrombosis, Heart Attack, High Cholesterol, Hypertension, Peripheral Vascular Stroke Sexually Transmitted Disease: No HIV/AIDS: No Abdominal Hernia, Gastroesophageal Reflux, Diverticulosis, Ulcer Arthritis, Chronic Back Pain Loss of Vision: Denies Hearing Impairment: Denies Sleep Difficulties, Anxiety, Schizophrenia, Depression Blood Disorders: No Adverse Reaction/Blood Tranf: No Past Medical History 1. CAD with history of CABG 2. Tobaccoism 3. Severe COPD 4. HTN 5. Anxiey 6. Chronic Unstable Angina 7. Depression Past Surgical History 1. CABG 2. Multiple Cardiac Cath. 3. Tonsillectomy 4. Hernia Repair Family Medical History Reviewed Nursing Family Hx Diabetes mellitus 19 MOTHER FH: heart disease 19 FATHER Heart Disease, Diabetes SOCIAL HX: -HX OF ALCOHOL ABUSE--CLAIMS HE QUIT YEARS AGO -DENIES DRUG USE -SMOKED 2-3 PPD--QUIT 2017 PSH: -CABG--1 VESSEL BYPASS -CARDIAC CATHS AND STENTS X 4, WITH ANGIOPLASTIES--LAST CARDIAC CATH 03/2018--PATENT STENT TO PROXIMAL LAD TO FIRST DIAGONAL, COMPLETE OCCLUSION OF MID LAD AND TO VEIN GRAFT TO LAD; EF 45-50%--NO INTERVENTION DONE AT THAT TIME AND FINDINGS WERE THE SAME THOSE FOUND ON CARDIAC CATH IN 2014 -ANGIOPLASTY AND STENT X 1 TO LEFT LEG/EXTERNAL ILIAC ARTERY 02/2017 -LEFT INGUINAL HERNIA REPAIR -TONSILLECTOMY ADDITIONAL PMH: -HX OF CARDIAC ARREST -CAROTID DISEASE--SEVERE ON RIGHT -RBBB ; LAFB Review of Systems Constitutional: No chills, No diaphoresis, No fever EENTM: no symptoms reported Respiratory: see HPI, dyspnea on exertion, short of breath Cardiovascular: see HPI, chest pain Gastrointestinal: No abdominal pain, No nausea, No vomiting Genitourinary: no symptoms reported Musculoskeletal: no symptoms reported Skin: no symptoms reported Psychiatric/Neurological: No Symptoms Reported Physical Exam Physical Exam Vital Signs Vital Signs - First Documented 08/18/21 22:42 Temp 36.7 Pulse 85 Resp 28 B/P (MAP) 162/88 (112) Pulse Ox 100 O2 Delivery Nasal Cannula O2 Flow Rate 4.00 Capillary Refill : Height, Weight, BMI Height: 5'8.00" Weight: 174lbs. 0.0oz. 78.575663wq; 25.95 BMI Method:Stated General Appearance: No Apparent Distress, Chronically ill HEENT: PERRL/EOMI, Moist Mucous Membranes; No Scleral Icterus (L), No Scleral Icterus (R) Neck: Normal Inspection, Supple Respiratory: Lungs Clear, No Accessory Muscle Use, No Respiratory Distress Cardiovascular: Regular Rate, Rhythm, No JVD, No Murmur Gastrointestinal: Normal Bowel Sounds, Non Tender, Soft Extremity: Normal Capillary Refill, Non Tender, No Pedal Edema Neurologic/Psychiatric: Alert, Oriented x3, Normal Mood/Affect Skin: Normal Color, Warm/Dry Lymphatic: No Adenopathy Results Results/Procedures Labs Laboratory Tests 08/18/21 22:47 08/19/21 05:42 Patient resulted labs reviewed. Imaging: Reviewed Imaging Report Imaging [facility] [place], [place] NAME: WINTER PIEDRA Martin [facility] REC#: [id number] PT STATUS: ADM Kush : 1955 PHYSICIAN: KAYCEE BAHENA APRN ADMIT DATE: 08/19/21 Signed Date of Exam:08/18/21 CHEST 1 VIEW, AP/PA ONLY EXAMINATION: Chest 1 view HISTORY: Chest pain COMPARISON: 05/31/2021 FINDINGS: Heart size and pulmonary vasculature are normal. Trace right pleural effusion with right basilar atelectasis. No new consolidation or pneumothorax. Surgical changes from CABG. The osseous structures are intact. IMPRESSION: 1. Stable trace right pleural effusion with adjacent atelectasis. Dictated by: Dictated on workstation # [id number] Dict: 08/19/21 0617 Trans: 08/19/21 0639 HARPER [id number] Interpreted by: KYLER WRIGHT DO Electronically signed by: KYLER WRIGHT DO 08/19/21 0639 Short Stay Diagnosis Discharge Diagnosis-Short Stay Admission Diagnosis Chest pain Final Discharge Diagnosis Chronic stable angina Conclusion Plan Chest pain with chronic stable angina CAD Cardiology consulted, appreciate recs Troponins negative EKG unchanged from previous Pain now resolved completely after nitro in ER ASA and Plavix given this AM Will refill nitro tabs as home dose Plan to DC home with outpatient follow up with PCP and Dr Carrion Clinical Quality Measures AMI/AHF: ASA po Prior to arrival: Yes JUAREZ LUQUE MD Aug 19, 2021 11:51
--- NOTE | 2021-08-19 11:52 | Discharge Inst-Simple/Standard ---
Discharge Inst-Standard Discharge Medications New, Converted or Re-Newed RX: Transmitted to Pharmacy Patient Instructions/Follow Up Plan of Care/Instructions/FU: Please continue take your medications as written. Please follow-up with Dr. Hanks and Dr. Carrion in the next 1 to 2 weeks to follow-up this hospital stay. Activity as Tolerated: Yes Discharge Diet: Cardiac Diet Return to The Hospital For: Chest pain, shortness of breath, weakness, fever, if you feel you are getting worse. JUAREZ TOLENTINO MD Aug 19, 2021 11:52
== END 2021-08-19 13:12 | disposition home or self-care (01) ==
LOC: EDUNIT# 22:42 → ER 22:43 → 4TH 08-19 03:53
PROVIDERS: ADMIT Family Medicine; ATTEND Family Medicine
DX: I25.118 Atherosclerotic heart disease of native coronary artery with other forms of angina pectoris (principal); I10 Essential (primary) hypertension; J44.9 Chronic obstructive pulmonary disease, unspecified; I73.9 Peripheral vascular disease, unspecified; E78.5 Hyperlipidemia, unspecified; I65.21 Occlusion and stenosis of right carotid artery; H26.9 Unspecified cataract; I44.4 Left anterior fascicular block; I25.2 Old myocardial infarction; F17.210 Nicotine dependence, cigarettes, uncomplicated; Z79.899 Other long term (current) drug therapy; Z95.1 Presence of aortocoronary bypass graft; Z99.81 Dependence on supplemental oxygen; Z95.828 Presence of other vascular implants and grafts; Z79.82 Long term (current) use of aspirin; Z79.2 Long term (current) use of antibiotics; Z79.02 Long term (current) use of antithrombotics/antiplatelets
CPT/HCPCS: 36415; 71045; 80048; 80053; 80061; 83735; 83874; 83880; 84484; 85025; 85610; 85730; 93005; 93041

== ENCOUNTER 2021-10-17 21:05 | Observation (INO) | payer MEDICARE, MEDICAID ==
[~2021-10-17] VITALS: Ht 172.7 cm; Wt 78.3 kg
[~2021-10-17 21:05] MED LIST changes: +NITR0.4T39 SL; +ONDANSETRON 4 MG/2 ML (SDV) Z0FRAN IV PRN
[2021-10-17] MEDS ORDERED: ASPIRIN 81 MG CHEW (CHILDREN'S ASA) PO ONE (21:15)
[2021-10-17] MEDS ORDERED: morphine INJ 10 MG/ML 1ML (SYR OR VIAL) IVP STA (21:18)
[2021-10-17 21:20] LABS: BASOPHILS % (AUTO) 0 % (0-10)
[2021-10-17 21:22] LABS: EOSINOPHILS # (AUTO) 0.1 10^3/uL (0.0-0.3); EOSINOPHILS % (AUTO) 2 % (0-10); HEMATOCRIT 34 % (40-54); LYMPHOCYTES # (AUTO) 1.3 10^3/uL (1.0-4.0); LYMPHOCYTES % (AUTO) 26 % (12-44); MEAN CORPUSCULAR HEMOGLOBIN 29 pg (25-34); MEAN CORPUSCULAR HGB CONC 30 g/dL (32-36); MEAN CORPUSCULAR VOLUME 97 fL (80-99); MEAN PLATELET VOLUME 10.8 fL (9.0-12.2); MONOCYTES # (AUTO) 0.5 10^3/uL (0.0-1.0); MONOCYTES % (AUTO) 9 % (0-12); NEUTROPHILS # (AUTO) 3.1 10^3/uL (1.8-7.8); NEUTROPHILS % (AUTO) 62 % (42-75); PLATELET COUNT 128 10^3/uL (130-400)
[2021-10-17 21:25] LABS: ALBUMIN 3.9 GM/DL (3.2-4.5)
[2021-10-17 21:26] LABS: POTASSIUM 4.5 MMOL/L (3.6-5.0)
[2021-10-17 21:27] LABS: CALCIUM 9.5 MG/DL (8.5-10.1)
[2021-10-17 21:28] LABS: TOTAL PROTEIN 7.1 GM/DL (6.4-8.2)
[2021-10-17 21:29] LABS: INR 0.9 (0.8-1.4); PROTHROMBIN TIME PATIENT 12.1 SEC (12.2-14.7)
[2021-10-17 21:29] LABS: BILIRUBIN,URINE NEGATIVE (NEGATIVE); CLARITY,URINE CLEAR; COLOR,URINE YELLOW; GLUCOSE, URINE (UA) NEGATIVE (NEGATIVE); KETONES,URINE NEGATIVE (NEGATIVE); LEUKOCYTE ESTERASE ,URINE NEGATIVE (NEGATIVE); NITRITE,URINE NEGATIVE (NEGATIVE); PROTEIN,URINE NEGATIVE (NEGATIVE)
[2021-10-17 21:30] LABS: BILIRUBIN,TOTAL 0.2 MG/DL (0.1-1.0)
[2021-10-17] MEDS ORDERED: NS IV 1000 ML 1,000 ML IV SCH ×2 (21:30→23:45)
[2021-10-17] MEDS ORDERED: ONDANSETRON 4 MG/2 ML (SDV) Z0FRAN IVP ONE (21:30)
[2021-10-17 21:31] LABS: CREATININE SERUM 0.99 MG/DL (0.60-1.30)
[2021-10-17 21:34] LABS: MAGNESIUM 1.9 MG/DL (1.6-2.4)
[2021-10-17 21:37] LABS: BACTERIA,URINE NEGATIVE /HPF
--- NOTE | 2021-10-17 21:53 | ED Chest Pain ---
General Chief Complaint: Chest Pain Stated Complaint: CHEST PAIN Nursing Triage Note: PT ARRIVAL TO ER VIA EMS WITH COMPLAINT OF LEFT SIDED CHEST PAIN THAT RADIATES DOWN LEFT ARM. PT STATES THAT HE ALSO FEELS NAUSEATED AND LIGHT HEADED. PT WAS GIVEN ASA AND NITRO X2 BY EMS. PAIN RATED AT A 9/10 CURRENTLY. History of Present Illness Date Seen by Provider: October 17, 2021 Time Seen by Provider: 21:15 Initial Comments 66-year-old male presents for chest pain by EMS. He reports the pain began at 1800 tonight. At 1900 he took a nitro and 2 aspirin 81 mg each, he repeated the aspirin at 1915, when his symptoms were not relieved he called EMS which gave him and his additional 2 aspirin 81 mg each. He reports spending a significant amount of time today outside, he has had approximately 3 pops to drink and no water. He has mild nausea no vomiting, denies diaphoresis He had a previous MO in 2005 which required bypass surgery. He is followed by Dr. Carrion for cardiology. Timing/Duration: 1-3 hours Severity/Quality: moderate (9/10) Allergies and Home Medications Allergies Coded Allergies: budesonide (Verified Allergy, Severe, angioedema, 12/06/18) formoterol (Verified Allergy, Severe, angioedema, 12/06/18) tetanus toxoid, adsorbed (Verified Allergy, Mild, hives, 12/06/18) DOROTA Inhibitors (Verified Allergy, Unknown, Angioedema, 12/06/18) Patient Home Medication List Home Medication List Reviewed: Yes Albuterol Sulfate (Ventolin Hfa) 1 Puff Puff, 2 PUFF IH PRN PRN for SHORTNESS OF BREATH, (Reported) Entered as Reported by: GAVIN RUBIO on 03/18/18 0737 Amlodipine Besylate (Amlodipine Besylate) 5 Mg Tablet, 5 MG PO DAILY, (Reported) Entered as Reported by: CELSO SZYMANSKI on 02/15/18 0350 Aripiprazole (Aripiprazole) 30 Mg Tablet, 30 MG PO DAILY, (Reported) Entered as Reported by: JEFF LEWIS on 06/29/20 1249 Aspirin (Aspirin) 81 Mg Tab.chew, 81 MG PO DAILY, (Reported) Entered as Reported by: JEFF LEWIS on 05/01/20 1344 Atorvastatin Calcium (Atorvastatin Calcium) 80 Mg Tablet, 80 MG PO DAILY, (Reported) Entered as Reported by: GAVIN RUBIO on 03/18/18 0737 Bupropion HCl (Bupropion HCl) 75 Mg Tablet, 75 MG PO DAILY, (Reported) Entered as Reported by: CELSO SZYMANSKI on 02/15/18 0350 Carvedilol (Carvedilol) 6.25 Mg Tablet, 6.25 MG PO DAILY, (Reported) Entered as Reported by: CELSO MARLOW on 07/25/17 1535 Clopidogrel Bisulfate (Clopidogrel) 75 Mg Tablet, 75 MG PO DAILY, (Reported) Entered as Reported by: JEFF LEWIS on 11/08/19 1527 Fish Oil/Dha/Epa (Fish Oil 1,200 mg Fish Oil) 1 Each Capsule, 1 EACH PO DAILY, (Reported) Entered as Reported by: JEFF LEWIS on 06/29/20 1251 Isosorbide Mononitrate (Isosorbide Mononitrate ER) 30 Mg Tab.er.24h, 30 MG PO D FLORES, (Reported) Entered as Reported by: PASHA GALEANA on 07/25/16 0945 Mirtazapine (Mirtazapine) 30 Mg Tablet, 30 MG PO HS, (Reported) Entered as Reported by: CELSO SZYMANSKI on 02/15/18 0350 Montelukast Sodium (Montelukast Sodium) 10 Mg Tablet, 10 MG PO DAILY, (Reported) Entered as Reported by: JEFF LEWIS on 06/29/20 1249 Nitroglycerin (Nitroglycerin) 0.4 Mg Tab.subl, 0.4 MG SL UD PRN for CHEST PAIN Prescribed by: JUAREZ TOLENTINO on 08/19/21 1013 Ranolazine (Ranolazine ER) 1,000 Mg Tab.er.12h, 1,000 MG PO DAILY, (Reported) Entered as Reported by: JEFF LEWIS on 06/29/20 1249 Sertraline HCl (Sertraline HCl) 100 Mg Tablet, 100 MG PO DAILY, (Reported) Entered as Reported by: JEFF LEWIS on 11/08/19 1527 Review of Systems Review of Systems Constitutional: no symptoms reported, see HPI Cardiovascular: See HPI, Chest Pain All Other Systems Reviewed Negative Unless Noted: Yes Past Wrwkyia-Ntfhft-Apnrdk Hx Patient Social History Tobacco Use?: No Use of E-Cig and/or Vaping dev: No Substance use?: No Alcohol Use?: No Pt feels they are or have been: No Immunizations Up To Date Tetanus Booster (TDap): Unknown PED Vaccines UTD: No Influenza Vaccine Up-to-Date: Yes; Up-to-Date First/Initial COVID19 Vaccinat: UNKNOWN Second COVID19 Vaccination Guillermo: 04/29 Third COVID19 Vaccination Date: UNKNOWN Seasonal Allergies Seasonal Allergies: No Past Medical History Surgery/Hospitalization HX: [place] 2016 Surgeries: Yes (LEFT INGUINAL HERNIA;CABG WITH STENTS IN HEART AND LEG) Abdominal, Cardiac, CABG, Coronary Stent, Tonsillectomy, Vascular Surgery Respiratory: Yes (WEARS O2 AT 5L/NC CONTINUOUSLY. RUL PULMONARY NODULE) Pneumonia, Chronic Bronchitis, COPD Currently Using CPAP: No Currently Using BIPAP: No Cardiac: Yes (STENT X1/ANGIO L EXT ILIAC ART;CABG/STENT X4;CAROTID DZ;CHF;CARDIAC ARREST) Coronary Artery Disease, Deep Vein Thrombosis, Heart Attack, High Cholesterol, Hypertension, Peripheral Vascular Neurological: Yes Stroke Reproductive Disorders: No Sexually Transmitted Disease: No HIV/AIDS: No Genitourinary: No Gastrointestinal: Yes Abdominal Hernia, Gastroesophageal Reflux, Diverticulosis, Ulcer Musculoskeletal: Yes Arthritis, Chronic Back Pain Endocrine: No HEENT: No Loss of Vision: Denies Hearing Impairment: Denies Cancer: No Psychosocial: Yes Sleep Difficulties, Anxiety, Schizophrenia, Depression Integumentary: No Blood Disorders: No Adverse Reaction/Blood Tranf: No Family Medical History Reviewed Nursing Family Hx Diabetes mellitus 19 MOTHER FH: heart disease 19 FATHER Heart Disease, Diabetes SOCIAL HX: -HX OF ALCOHOL ABUSE--CLAIMS HE QUIT YEARS AGO -DENIES DRUG USE -SMOKED 2-3 PPD--QUIT 2017 PSH: -CABG--1 VESSEL BYPASS -CARDIAC CATHS AND STENTS X 4, WITH ANGIOPLASTIES--LAST CARDIAC CATH 03/2018--PATENT STENT TO PROXIMAL LAD TO FIRST DIAGONAL, COMPLETE OCCLUSION OF MID LAD AND TO VEIN GRAFT TO LAD; EF 45-50%--NO INTERVENTION DONE AT THAT TIME AND FINDINGS WERE THE SAME THOSE FOUND ON CARDIAC CATH IN 2015 -ANGIOPLASTY AND STENT X 1 TO LEFT LEG/EXTERNAL ILIAC ARTERY 02/2017 -LEFT INGUINAL HERNIA REPAIR -TONSILLECTOMY ADDITIONAL PMH: -HX OF CARDIAC ARREST -CAROTID DISEASE--SEVERE ON RIGHT -RBBB ; LAFB Physical Exam Vital Signs Vital Signs - First Documented 10/17/21 21:15 Temp 36.3 Pulse 79 Resp 20 B/P (MAP) 153/69 (97) Pulse Ox 99 O2 Delivery Room Air Capillary Refill : Less Than 3 Seconds Height, Weight, BMI Height: 5'8.00" Weight: 174lbs. 0.0oz. 78.966979nv; 27.00 BMI Method:Stated General Appearance: No Apparent Distress, WD/WN Neck: Full Range of Motion, Normal Inspection, Non Tender, Supple Respiratory: Chest Non Tender, Lungs Clear, Normal Breath Sounds Cardiovascular: Regular Rate, Rhythm, No Murmur, Normal Peripheral Pulses Gastrointestinal: Normal Bowel Sounds, Non Tender, Soft Extremity: Normal Capillary Refill, Normal Inspection, Normal Range of Motion, Non Tender Neurologic/Psychiatric: Alert, Oriented x3, No Motor/Sensory Deficits, Normal Mood/Affect Skin: Normal Color, Warm/Dry Progress/Results/Core Measures Results/Orders Lab Results Laboratory Tests Test 10/17/21 21:10 10/17/21 21:25 Range/Units White Blood Count 5.0 4.3-11.0 10^3/uL Red Blood Count 3.47 L 4.30-5.52 10^6/uL Hemoglobin 10.0 L 13.3-17.7 g/dL Hematocrit 34 L 40-54 % Mean Corpuscular Volume 97 80-99 fL Mean Corpuscular Hemoglobin 29 25-34 pg Mean Corpuscular Hemoglobin Concent 30 L 32-36 g/dL Red Cell Distribution Width 13.0 10.0-14.5 % Platelet Count 128 L 130-400 10^3/uL Mean Platelet Volume 10.8 9.0-12.2 fL Immature Granulocyte % (Auto) 0 % Neutrophils (%) (Auto) 62 42-75 % Lymphocytes (%) (Auto) 26 12-44 % Monocytes (%) (Auto) 9 0-12 % Eosinophils (%) (Auto) 2 0-10 % Basophils (%) (Auto) 0 0-10 % Neutrophils # (Auto) 3.1 1.8-7.8 10^3/uL Lymphocytes # (Auto) 1.3 1.0-4.0 10^3/uL Monocytes # (Auto) 0.5 0.0-1.0 10^3/uL Eosinophils # (Auto) 0.1 0.0-0.3 10^3/uL Basophils # (Auto) 0.0 0.0-0.1 10^3/uL Immature Granulocyte # (Auto) 0.0 0.0-0.1 10^3/uL Percent Immature Platelet Fraction 5.0 0.0-7.6 % Prothrombin Time 12.1 L 12.2-14.7 SEC INR Comment 0.9 0.8-1.4 Activated Partial Thromboplast Time 33 24-35 SEC Sodium Level 144 135-145 MMOL/L Potassium Level 4.5 3.6-5.0 MMOL/L Chloride Level 93 L 98-107 MMOL/L Carbon Dioxide Level 42 H 21-32 MMOL/L Anion Gap 9 5-14 MMOL/L Blood Urea Nitrogen 15 7-18 MG/DL Creatinine 0.99 0.60-1.30 MG/DL Estimat Glomerular Filtration Rate 84 BUN/Creatinine Ratio 15 Glucose Level 97 70-105 MG/DL Calcium Level 9.5 8.5-10.1 MG/DL Corrected Calcium 9.6 8.5-10.1 MG/DL Magnesium Level 1.9 1.6-2.4 MG/DL Total Bilirubin 0.2 0.1-1.0 MG/DL Aspartate Amino Transf (AST/SGOT) 19 5-34 U/L Alanine Aminotransferase (ALT/SGPT) 20 0-55 U/L Alkaline Phosphatase 98 40-136 U/L Myoglobin 34.8 10.0-92.0 NG/ML Troponin I < 0.028 <0.028 NG/ML B-Type Natriuretic Peptide 48.9 <100.0 PG/ML Total Protein 7.1 6.4-8.2 GM/DL Albumin 3.9 3.2-4.5 GM/DL Urine Color YELLOW Urine Clarity CLEAR Urine pH 7.0 5-9 Urine Specific [place] 1.020 1.016-1.022 Urine Protein NEGATIVE NEGATIVE Urine Glucose (UA) NEGATIVE NEGATIVE Urine Ketones NEGATIVE NEGATIVE Urine Nitrite NEGATIVE NEGATIVE Urine Bilirubin NEGATIVE NEGATIVE Urine Urobilinogen 0.2 < = 1.0 MG/DL Urine Leukocyte Esterase NEGATIVE NEGATIVE Urine RBC (Auto) NEGATIVE NEGATIVE Urine RBC NONE /HPF Urine WBC NONE /HPF Urine Squamous Epithelial Cells NONE /HPF Urine Renal Epithelial Cells NONE /HPF Urine Crystals NONE /LPF Urine Bacteria NEGATIVE /HPF Urine Casts NONE /LPF Urine Mucus NEGATIVE /LPF Urine Culture Indicated NO My Orders Orders - [facility] Cbc With Automated Diff (10/17/21 21:13) Magnesium (10/17/21:) Chest 1 View, Ap/Pa Only (10/17/21:) Ekg Tracing (10/17/21:) Comprehensive Metabolic Panel (10/17/21:) Myoglobin Serum (10/17/21:) Protime With Inr (10/17/21:) Partial Thromboplastin Time (10/17/21:) O2 (10/17/21 21:13) Monitor-Rhythm Ecg Trace Only (10/17/21:) Lipid Panel (10/18/21 06:00) Ed Iv/Invasive Line Start (10/17/21:13) Bnp Negrita (10/17/21 21:) Troponin I [place] (10/17/21:13) Ua Culture If Indicated (10/17/21:18) Ed Iv/Invasive Line Start (10/17/21 21:18) Morphine Injection (Morphine Injection (10/17/21 21:18) Ondansetron Injection (Zofran Injectio (10/17/21 21:30) Medications Given in ED Current Medications Medications Dose Ordered Sig/Shira Route Start Time Stop Time Status Last Admin Dose Admin Ondansetron HCl 4 mg ONCE ONCE IVP 10/17/21 21:30 10/17/21 21:31 DC 10/17/21 21:29 4 MG Vital Signs/I&O 10/17/21 21:15 Temp 36.3 Pulse 79 Resp 20 B/P (MAP) 153/69 (97) Pulse Ox 99 O2 Delivery Room Air Blood Pressure Mean: 97 Progress Progress Note : Time: 21:15 Progress Note patent seen and evaluated. pain has continued, despite nitro SL and paste. Will give Morphine 4 mg IV. Zofran 4 mg IV for nausea. EKG, labs and chest x-ray. 2144 patient reports pain down to 6/10 after having received morphine. He does report being much more comfortable. Nausea has improved. We will continue to monitor. 2204 labs show negative troponin. EKGs showed no ST elevation. Discussed with patient that we need to do repeat troponins and would recommend admission to observe overnight. Cardiology consult in A.M. 2215 Dr. Nash agreeable with plan for admission. Consult cardiology, Dr. Carrion to see in am. No additional orders. On Plavis and received ASA. Troponin repeat in am. Initial ECG Impression Date: October 17, 2021 Initial ECG Impression Time: 21:17 Initial ECG Rate: 77 Initial ECG Rhythm: Normal Sinus Initial ECG Intervals: Normal Initial ECG Intervals OK 172, QRS 95, QT 276, QTc 307. [place] P 70, R -53, T 87. Initial ECG Impression: Normal Initial ECG Comparisson: Unchanged Departure Impression Primary Impression: Chest pain Qualified Codes: R07.9 - Chest pain, unspecified Additional Impression: CAD (coronary artery disease) Qualified Codes: I25.708 - Atherosclerosis of coronary artery bypass graft(s), unspecified, with other forms of angina pectoris Disposition: ADMITTED INPATIENT Condition: Stable Admissions Decision to Admit/Date: October 17, 2021 Time/Decision to Admit Time: 22:10 Departure-Patient Inst. Referrals: SONYA FERNANDEZ MD (PCP/Family) Primary Care Physician Copy Copies To 1: JOSHUA CARRION MD, AMY ARNP October 17, 2021 21:53
--- NOTE | 2021-10-17 22:19 | Diagnostic Imaging Report ---
CLINICAL INDICATION: Patient with chest pain. EXAM: Portable chest x-ray upright view. COMPARISON: Chest x-ray dated 08/18/2021. FINDINGS: Lungs/pleura: There is mild bibasilar atelectasis. There is no definite lung infiltrate. There is no pneumothorax. There is no pleural effusion. Mediastinum: Unremarkable. Pulmonary vasculature: Unremarkable. Heart: Stable mild cardiomegaly. Stable postop change to the chest consistent with CABG. Bones/extrathoracic soft tissue: There are degenerative spurs involving the thoracic spine. IMPRESSION: 1: There is mild bibasilar atelectasis. There is no radiographic evidence of acute cardiopulmonary process. 2: There is stable mild cardiomegaly with no significant pulmonary vascular congestion. Dictated by: Dictated on workstation # [id number]
[2021-10-17 23:20] VITALS: BP 117/60
[2021-10-18] MEDS ORDERED: morphine INJ 4 MG/ML 1 ML (VIAL/SYRINGE) IV PRN (00:15)
[2021-10-18] MEDS ORDERED: ACETAMINOPHEN 325 MG TABLET PO PRN ×2 (00:15)
[2021-10-18] MEDS ORDERED: ONDANSETRON 4 MG/2 ML (SDV) Z0FRAN IVP PRN (00:15)
[2021-10-18] MEDS ORDERED: NITROGLYCERIN 0.4 MG SL TABS BTL 25'S SL PRN ×2 (00:15)
[2021-10-18] MEDS ORDERED: morphine INJ 4 MG/ML 1 ML (VIAL/SYRINGE) IVP PRN (00:15)
[2021-10-18] MEDS ORDERED: NS IV 1000 ML 1,000 ML IV SCH (00:30)
[2021-10-18 03:24] VITALS: BP 122/62
[2021-10-18 06:03] LABS: BASOPHILS % (AUTO) 0 % (0-10); EOSINOPHILS # (AUTO) 0.1 10^3/uL (0.0-0.3); EOSINOPHILS % (AUTO) 2 % (0-10); HEMATOCRIT 31 % (40-54); HEMOGLOBIN 8.9 g/dL (13.3-17.7); LYMPHOCYTES # (AUTO) 1.5 10^3/uL (1.0-4.0); LYMPHOCYTES % (AUTO) 34 % (12-44); MEAN CORPUSCULAR HEMOGLOBIN 29 pg (25-34); MEAN CORPUSCULAR HGB CONC 29 g/dL (32-36); MEAN CORPUSCULAR VOLUME 98 fL (80-99); MEAN PLATELET VOLUME 10.9 fL (9.0-12.2); MONOCYTES # (AUTO) 0.4 10^3/uL (0.0-1.0); MONOCYTES % (AUTO) 10 % (0-12); NEUTROPHILS # (AUTO) 2.2 10^3/uL (1.8-7.8); NEUTROPHILS % (AUTO) 53 % (42-75); PLATELET COUNT 106 10^3/uL (130-400); WHITE BLOOD COUNT 4.2 10^3/uL (4.3-11.0)
[2021-10-18 06:25] LABS: CHLORIDE 96 MMOL/L (98-107); POTASSIUM 4.4 MMOL/L (3.6-5.0); SODIUM 143 MMOL/L (135-145)
[2021-10-18 06:27] LABS: CALCIUM 8.7 MG/DL (8.5-10.1); TRIGLYCERIDES 36 MG/DL (<150); VLDL CHOLESTEROL 7 MG/DL (5-40)
[2021-10-18 06:28] LABS: GLUCOSE 114 MG/DL (70-105)
[2021-10-18 06:29] LABS: CARBON DIOXIDE 40 MMOL/L (21-32)
[2021-10-18 06:31] LABS: CREATININE SERUM 0.87 MG/DL (0.60-1.30); GFR ESTIMATED 95
[2021-10-18 06:33] LABS: BUN/CREATININE RATIO 17; CHOLESTEROL 138 MG/DL (< 200)
[2021-10-18 06:34] LABS: HDL CHOLESTEROL 66 MG/DL (40-60)
[2021-10-18 07:33] VITALS: BP 128/59
--- NOTE | 2021-10-18 08:41 | Consultation-Cardiology ---
HPI-Cardiology Cardiology Consultation Date of Consultation 10/18/21 Date of Admission Time Seen by Provider: 07:50 Indication: Chest pain HPI Patient is a 66 y/o male with hx of extensive CAD, chronic stable angina. Presented to the ER with complaints of chest pain. States he was working outside in the heat yesterday and believes he got overheated prior to having the pain. Denies any increased dyspnea, dizziness or lightheadedness. States improvement of his symptoms this morning. Home Medications & Allergies Allergies: Coded Allergies: budesonide (Verified Allergy, Severe, angioedema, 12/06/18) formoterol (Verified Allergy, Severe, angioedema, 12/06/18) tetanus toxoid, adsorbed (Verified Allergy, Mild, hives, 12/06/18) DOROTA Inhibitors (Verified Allergy, Unknown, Angioedema, 12/06/18) Home Medication List Reviewed: Yes [id number] Hx Patient Social History Drug of Choice: DENIES Smoking Status: Former Smoker Former smoker/When Quit: Aug 21, 2014 Type Used: Cigarettes 2nd Hand Smoke Exposure: Yes Recent Hopitalizations: No Have you traveled recently?: No Alcohol Use?: No Immunizations Up To Date Tetanus Booster (TDap): Unknown Date of Pneumonia Vaccine: Apr 26, 2020 Date of Influenza Vaccine: Apr 26, 2020 Past Medical History CAD, COPD, HTN Family Medical History Significant Family History: Heart Disease, Diabetes Family History: Diabetes mellitus 19 MOTHER FH: heart disease 19 FATHER Review of Systems-General Review of Systems Constitutional: no symptoms reported, see HPI EENTM: see HPI Respiratory: see HPI, dyspnea on exertion, wheezing Cardiovascular: see HPI, chest pain; No edema; Hx of Intervention; No syncope; vascular heart diseas Gastrointestinal: No abdominal pain, No constipation Genitourinary: no symptoms reported Musculoskeletal: no symptoms reported All Other Systems Reviewed Negative Unless Noted: Yes Reviewed Test Results Reviewed Test Results Lab Laboratory Tests 10/17/21 21:10: White Blood Count 5.0, Red Blood Count 3.47L, Hemoglobin 10.0L, Hematocrit 34L, Mean Corpuscular Volume 97, Mean Corpuscular Hemoglobin 29, Mean Corpuscular Hemoglobin Concent 30L, Red Cell Distribution Width 13.0, Platelet Count 128L, Mean Platelet Volume 10.8, Immature Granulocyte % (Auto) 0, Neutrophils (%) ( Auto) 62, Lymphocytes (%) (Auto) 26, Monocytes (%) (Auto) 9, Eosinophils (%) (Auto) 2, Basophils (%) (Auto) 0, Neutrophils # (Auto) 3.1, Lymphocytes # (Auto) 1.3, Monocytes # (Auto) 0.5, Eosinophils # (Auto) 0.1, Basophils # (Auto) 0.0, Immature Granulocyte # (Auto) 0.0, Percent Immature Platelet Fraction 5.0, Prothrombin Time 12.1L, INR Comment 0.9, Activated Partial Thromboplast Time 33, Sodium Level 144, Potassium Level 4.5, Chloride Level 93L, Carbon Dioxide Level 42H, Anion Gap 9, Blood Urea Nitrogen 15, Creatinine 0.99, Estimat Glomerular Filtration Rate 84, BUN/Creatinine Ratio 15, Glucose Level 97, Calcium Level 9.5, Corrected Calcium 9.6, Magnesium Level 1.9, Total Bilirubin 0.2, Aspartate Amino Transf (AST/SGOT) 19, Alanine Aminotransferase (ALT/SGPT) 20, Alkaline Phosphatase 98, Myoglobin 34.8, Troponin I < 0.028, B-Type Natriuretic Peptide 48.9, Total Protein 7.1, Albumin 3.9 10/17/21 21:25: Urine Color YELLOW, Urine Clarity CLEAR, Urine pH 7.0, Urine Specific [place] 1.020, Urine Protein NEGATIVE, Urine Glucose (UA) NEGATIVE, Urine Ketones NEGATIVE, Urine Nitrite NEGATIVE, Urine Bilirubin NEGATIVE, Urine Urobilinogen 0.2, Urine Leukocyte Esterase NEGATIVE, Urine RBC (Auto) NEGATIVE, Urine RBC NONE, Urine WBC NONE, Urine Squamous Epithelial Cells NONE, Urine Renal Epithelial Cells NONE, Urine Crystals NONE, Urine Bacteria NEGATIVE, Urine Casts NONE, Urine Mucus NEGATIVE, Urine Culture Indicated NO 10/18/21 05:53: White Blood Count 4.2L, Red Blood Count 3.11L, Hemoglobin 8.9L, Hematocrit 31L, Mean Corpuscular Volume 98, Mean Corpuscular Hemoglobin 29, Mean Corpuscular Hemoglobin Concent 29L, Red Cell Distribution Width 13.0, Platelet Count 106L, Mean Platelet Volume 10.9, Immature Granulocyte % (Auto) 0, Neutrophils (%) (Auto) 53, Lymphocytes (%) (Auto) 34, Monocytes (%) (Auto) 10, Eosinophils (%) (Auto) 2, Basophils (%) (Auto) 0, Neutrophils # (Auto) 2.2, Lymphocytes # (Auto) 1.5, Monocytes # (Auto) 0.4, Eosinophils # (Auto) 0.1, Basophils # (Auto) 0.0, Immature Granulocyte # (Auto) 0.0, Sodium Level 143, Potassium Level 4.4, Chloride Level 96L, Carbon Dioxide Level 40H, Anion Gap 7, Blood Urea Nitrogen 15, Creatinine 0.87, Estimat Glomerular Filtration Rate 95, BUN/Creatinine Ratio 17, Glucose Level 114H, Calcium Level 8.7, Troponin I < 0.028, Triglycerides Level 36, Cholesterol Level 138, LDL Cholesterol Direct 54, VLDL Cholesterol 7, HDL Cholesterol 66H Physical Exam Physical Exam Vital Signs Vital Signs - First Documented 10/17/21 10/17/21 11:20 21:15 Temp 36.3 Pulse 79 Resp 20 B/P (MAP) 153/69 (97) Pulse Ox 99 O2 Delivery Nasal Cannula O2 Flow Rate 4.00 Capillary Refill : Less Than 3 Seconds Height, Weight, BMI Height: 5'8.00" Weight: 174lbs. 0.0oz. [id number]; 26.25 BMI Method:Stated General Appearance: No Apparent Distress, WD/WN Neck: Full Range of Motion, Normal Inspection, Non Tender, Supple Respiratory: Chest Non Tender, Lungs Clear, Normal Breath Sounds Cardiovascular: Regular Rate, Rhythm, No Murmur, Normal Peripheral Pulses Gastrointestinal: Normal Bowel Sounds, Non Tender, Soft Extremity: Normal Capillary Refill, Normal Inspection, Normal Range of Motion, Non Tender Neurologic/Psychiatric: Alert, Oriented x3, No Motor/Sensory Deficits, Normal Mood/Affect Skin: Normal Color, Warm/Dry A/P-Cardiology Admission Diagnosis Chest pain CAD COPD HTN Assessment/Plan Chest pain, history of chronic stable angina. History of multiple hospitalization with recurrent chest pain. Feeling better at this point. EKG and cardiac enzymes did not show any acute abnormality. Recommend conservative management and follow-up as an outpatient. Coronary artery disease, Cardiac catheterization was done in September 2014 showing total occlusion of the LAD at its midportion with occluded vein graft to the LAD did not fill with meredith aterals on this study, patent stent in the proximal LAD to the diagonal artery, mild disease in the circumflex and right coronary artery, prominent left ventricle with EF 45 percent. Repeat cardiac catheterization was done in March 2018 showing total occlusion of the mid LAD and the vein graft to the LAD, patent stent in the proximal LAD that was providing flow to the first diagonal branch, mild disease in the circumflex artery and right coronary artery, the apex of the left ventricular still akinetic with ejection fraction 45-50 percent. Coronary arteriotomy deemed inoperable. Conservative management is recommended. Peripheral edema, resolved, continue to monitor History of congestive heart failure with chronic compensated left ventricular systolic dysfunction, last echocardiogram done in June 2020 showed normal left ventricular systolic function with ejection fraction 55-65 percent with pulmonary hypertension PA pressure of 45 mmHg. Peripheral arterial disease, history of stent to the left lower extremity, having pain in his lower extremity, seen and evaluated with heart and vascular care, had angiogram and balloon angioplasty with angioscore cutting balloon 5x40 mm to the left external iliac then stenting to the left external iliac artery with 6x50 Viabahn postdilated with a Brent balloon. Done by Dr. Jackson. He has stopped following with heart and vascular care COPD, oxygen dependent. Hypertension, restart home medication monitor blood pressure Hyperlipidemia, continue to monitor lipids Tobaccoism, expressed that he has stopped smoking, encouraged to continue with smoking cessation Carotid stenosis, s had a CT angiogram reported as severe stenosis in the right carotid artery 70 to 80%, no significant stenosis on the left. Patient had right carotid endarterectomy done in May 2021 in [facility]. Recovered well. OK for discharge from cardiology standpoint, follow up as outpatient. Thank you for allowing us to participate in the management of Mr. Dougherty. Thi s is Carmen Juarez PA-C, as a scribe for Dr. Carrion. Patient was seen and evaluated with Carmen, I examined and interviewed the patient. He reported that no further episodes of chest pain were reported. Feeling better. Discussed N95 midline, no changes in recommendation, EKG and cardiac enzymes did not show any acute abnormality. I am okay with discharge and follow-up as an outpatient. Continue to monitor blood pressure and lipids Clinical Quality Measures AMI/AHF: ASA po Prior to arrival: Yes CARMEN FAJARDO October 18, 2021 08:41 JOSHUA CARRION MD October 18, 2021 14:26
[2021-10-18] MEDS ORDERED: ASPIRIN 81 MG CHEW (CHILDREN'S ASA) PO SCH ×2 (09:00)
--- NOTE | 2021-10-18 11:10 | Discharge Summary ---
Discharge Summary Hospital Course Problems/Dx: (1) Chest pain Status: Acute Qualifiers: Qualified Codes: R07.9 - Chest pain, unspecified Hospital Course Date of Admission: October 17, 2021 at 22:30 Admission Diagnosis: Chest pain Family Physician/Provider: Stanford Hanks MD Date of Discharge: 10/18/21 Discharge Diagnosis: Chest pain Hospital Course: Ethan Dougherty is a 66 year old male with PMH CAD who presented with chest pain. Cardiology was consulted and assisted with his care. His chest pain resolved. His troponin remained negative. Cardiology recommended conservative medical management. He was discharged home in improved condition. He should follow up with his PCP and Cardiology. Labs and Pending Lab Test: Laboratory Tests 10/17/21 21:10: White Blood Count 5.0, Red Blood Count 3.47L, Hemoglobin 10.0L, Hematocrit 34L, Mean Corpuscular Volume 97, Mean Corpuscular Hemoglobin 29, Mean Corpuscular Hemoglobin Concent 30L, Red Cell Distribution Width 13.0, Platelet Count 128L, Mean Platelet Volume 10.8, Immature Granulocyte % (Auto) 0, Neutrophils (%) (Auto) 62, Lymphocytes (%) (Auto) 26, Monocytes (%) (Auto) 9, Eosinophils (%) (Auto) 2, Basophils (%) (Auto) 0, Neutrophils # (Auto) 3.1, Lymphocytes # (Auto) 1.3, Monocytes # (Auto) 0.5, Eosinophils # (Auto) 0.1, Basophils # (Auto) 0.0, Immature Granulocyte # (Auto) 0.0, Percent Immature Platelet Fraction 5.0, Prothrombin Time 12.1L, INR Comment 0.9, Activated Partial Thromboplast Time 33, Sodium Level 144, Potassium Level 4.5, Chloride Level 93L, Carbon Dioxide Level 42H, Anion Gap 9, Blood Urea Nitrogen 15, Creatinine 0.99, Estimat Glomerular Filtration Rate 84, BUN/Creatinine Ratio 15, Glucose Level 97, Calcium Level 9.5, Corrected Calcium 9.6, Magnesium Level 1.9, Total Bilirubin 0.2, Aspartate Amino Transf (AST/SGOT) 19, Alanine Aminotransferase (ALT/SGPT) 20, Alkaline Phosphatase 98, Myoglobin 34.8, Troponin I < 0.028, B-Type Natriuretic Peptide 48.9, Total Protein 7.1, Albumin 3.9 10/17/21 21:25: Urine Color YELLOW, Urine Clarity CLEAR, Urine pH 7.0, Urine Specific [place] 1.020, Urine Protein NEGATIVE, Urine Glucose (UA) NEGATIVE, Urine Ketones NEGATIVE, Urine Nitrite NEGATIVE, Urine Bilirubin NEGATIVE, Urine Urobilinogen 0.2, Urine Leukocyte Esterase NEGATIVE, Urine RBC (Auto) NEGATIVE, Urine RBC NONE, Urine WBC NONE, Urine Squamous Epithelial Cells NONE, Urine Renal Epithelial Cells NONE, Urine Crystals NONE, Urine Bacteria NEGATIVE, Urine Casts NONE, Urine Mucus NEGATIVE, Urine Culture Indicated NO 10/18/21 05:53: White Blood Count 4.2L, Red Blood Count 3.11L, Hemoglobin 8.9L, Hematocrit 31L, Mean Corpuscular Volume 98, Mean Corpuscular Hemoglobin 29, Mean Corpuscular Hemoglobin Concent 29L, Red Cell Distribution Width 13.0, Platelet Count 106L, Mean Platelet Volume 10.9, Immature Granulocyte % (Auto) 0, Neutrophils (%) (Auto) 53, Lymphocytes (%) (Auto) 34, Monocytes (%) (Auto) 10, Eosinophils (%) (Auto) 2, Basophils (%) (Auto) 0, Neutrophils # (Auto) 2.2, Lymphocytes # (Auto) 1.5, Monocytes # (Auto) 0.4, Eosinophils # (Auto) 0.1, Basophils # (Auto) 0.0, Immature Granulocyte # (Auto) 0.0, Sodium Level 143, Potassium Level 4.4, Chloride Level 96L, Carbon Dioxide Level 40H, Anion Gap 7, Blood Urea Nitrogen 15, Creatinine 0.87, Estimat Glomerular Filtration Rate 95, BUN/Creatinine Ratio 17, Glucose Level 114H, Calcium Level 8.7, Troponin I < 0.028, Triglycerides Level 36, Cholesterol Level 138, LDL Cholesterol Direct 54, VLDL Cholesterol 7, HDL Cholesterol 66H Home Meds Active Nitroglycerin 0.4 Mg Tab.subl 0.4 Mg SL UD PRN Reported Fish Oil 1,200 mg Fish Oil (Fish Oil/Dha/Epa) 1 Each Capsule 1 Each PO DAILY Ranolazine ER (Ranolazine) 1,000 Mg Tab.er.12h 1,000 Mg PO DAILY Aripiprazole 30 Mg Tablet 30 Mg PO DAILY Montelukast Sodium 10 Mg Tablet 10 Mg PO DAILY Aspirin 81 Mg Tab.chew 81 Mg PO DAILY Sertraline HCl 100 Mg Tablet 100 Mg PO DAILY Clopidogrel (Clopidogrel Bisulfate) 75 Mg Tablet 75 Mg PO DAILY Ventolin Hfa (Albuterol Sulfate) 1 Puff Puff 2 Puff IH PRN PRN Atorvastatin Calcium 80 Mg Tablet 80 Mg PO DAILY LAST FILLED 07-25-2020 #90/90 DAY SUPPLY Mirtazapine 30 Mg Tablet 30 Mg PO HS Amlodipine Besylate 5 Mg Tablet 5 Mg PO DAILY Bupropion HCl 75 Mg Tablet 75 Mg PO DAILY Carvedilol 6.25 Mg Tablet 6.25 Mg PO DAILY Isosorbide Mononitrate ER (Isosorbide Mononitrate) 30 Mg Tab.er.24h 30 Mg PO DAILY Assessment/Pt Instructions See instructions Discharge Planning: <30 minutes discharge planning Discharge Instructions Discharge Diet: Low Sodium Diet Activity as Tolerated: Yes Consultations Cardiology Discharge Physical Examination Vital Signs Vital Signs Date Time Temp Pulse Resp B/P (MAP) Pulse Ox O2 Delivery O2 Flow Rate FiO2 10/18/21 08:35 99 Nasal Cannula 4.00 10/18/21 07:33 36.4 78 20 128/59 (82) General Appearance: No Apparent Distress, WD/WN Respiratory: Lungs Clear, No Respiratory Distress Cardiovascular: Regular Rate, Rhythm, No Edema, No Murmur Gastrointestinal: Normal Bowel Sounds, Soft Extremity: Normal Inspection, No Pedal Edema Skin: Normal Color, Warm/Dry Neurologic/Psychiatric: Alert, Oriented x3, No Motor/Sensory Deficits, Normal Mood/Affect Allergies: Coded Allergies: budesonide (Verified Allergy, Severe, angioedema, 12/06/18) formoterol (Verified Allergy, Severe, angioedema, 12/06/18) tetanus toxoid, adsorbed (Verified Allergy, Mild, hives, 12/06/18) DOROTA Inhibitors (Verified Allergy, Unknown, Angioedema, 12/06/18) Discharge Summary Date of Admission October 17, 2021 at 22:30 Date of Discharge Discharge Date: October 18, 2021 Discharge Time: 11:09 Admission Diagnosis Chest pain Consults/Procedures Consulations Cardiology Discharge Diagnosis (1) Chest pain Status: Acute Qualifiers: Qualified Codes: R07.9 - Chest pain, unspecified Clinical Quality Measures AMI/AHF: ASA po Prior to arrival: Yes ROHIT SAL MD October 18, 2021 11:10
[2021-10-18 12:48] VITALS: BP 128/59
== END 2021-10-18 12:49 | disposition home or self-care (01) ==
LOC: EDUNIT# 21:05 → ER 21:07 → 4TH 22:30
PROVIDERS: ADMIT Internal Medicine; ATTEND Internal Medicine
DX: R07.9 Chest pain, unspecified (principal); I25.118 Atherosclerotic heart disease of native coronary artery with other forms of angina pectoris; I10 Essential (primary) hypertension; I73.9 Peripheral vascular disease, unspecified; I65.21 Occlusion and stenosis of right carotid artery; E78.5 Hyperlipidemia, unspecified; J44.9 Chronic obstructive pulmonary disease, unspecified; R60.0 Localized edema; Z99.81 Dependence on supplemental oxygen; Z87.891 Personal history of nicotine dependence; Z79.899 Other long term (current) drug therapy; Z95.820 Peripheral vascular angioplasty status with implants and grafts; Z98.890 Other specified postprocedural states
CPT/HCPCS: 71045; 80048; 80053; 80061; 81000; 83735; 83874; 83880; 84484 ×2; 85025 ×2; 85610; 85730; 93005; 93041; 96374; 96375; 96376; 99284; G0378; 36415

== ENCOUNTER 2021-10-29 19:14 | Inpatient (IN) | payer MEDICARE, MEDICAID ==
[~2021-10-29] VITALS: Ht 173 cm; Wt 76.0 kg
[~2021-10-29 19:14] MED LIST changes: -ONDANSETRON 4 MG/2 ML (SDV) Z0FRAN IV PRN
[2021-10-29] MEDS ORDERED: morphine INJ 10 MG/ML 1ML (SYR OR VIAL) IVP STA (19:21)
--- NOTE | 2021-10-29 19:27 | ED Chest Pain ---
General Chief Complaint: Chest Pain Stated Complaint: CP Source: patient Exam Limitations: no limitations History of Present Illness Date Seen by Provider: October 29, 2021 Time Seen by Provider: 19:26 Initial Comments This is a 66-year-old male with a history of coronary artery disease, COPD, chronic angina, and congestive heart failure that presented to the ER via [facility] for complaints of 10/10 chest pain. Pain constant pressure in his left chest and radiates down his left arm. He did have one episode of emesis prior to arrival. He received 3 Nitro tablets per EMS, Fentanyl 50mcg IV, and Aspirin 324mg prior to arrival. States that his pain is somewhat improved with Nitro and has went from a 10 down to a 9. He does take Ranexa and Imdur for chronic angina, but states he has not taken his home medications in two days because he "forgot" them. Denies fever, chills, cough, abdominal pain, or Genitourinary urinary complaints. Allergies and Home Medications Allergies Coded Allergies: budesonide (Verified Allergy, Severe, angioedema, 12/06/18) formoterol (Verified Allergy, Severe, angioedema, 12/06/18) tetanus toxoid, adsorbed (Verified Allergy, Mild, hives, 12/06/18) DOROTA Inhibitors (Verified Allergy, Unknown, Angioedema, 12/06/18) Patient Home Medication List Home Medication List Reviewed: Yes Albuterol Sulfate (Ventolin Hfa) 1 Puff Puff, 2 PUFF IH PRN PRN for SHORTNESS OF BREATH, (Reported) Entered as Reported by: GAVIN RUBIO on 03/18/18 0737 Amlodipine Besylate (Amlodipine Besylate) 5 Mg Tablet, 5 MG PO DAILY, (Reported) Entered as Reported by: CESLO SZYMANSKI on 02/15/18 0350 Aripiprazole (Aripiprazole) 30 Mg Tablet, 30 MG PO DAILY, (Reported) Entered as Reported by: JEFF LEWIS on 06/29/20 1249 Aspirin (Aspirin) 81 Mg Tab.chew, 81 MG PO DAILY, (Reported) Entered as Reported by: JEFF LEWIS on 05/01/20 1344 Atorvastatin Calcium (Atorvastatin Calcium) 80 Mg Tablet, 80 MG PO DAILY, (Reported) Entered as Reported by: GAVIN RUBIO on 03/18/18 0737 Bupropion HCl (Bupropion HCl) 75 Mg Tablet, 75 MG PO DAILY, (Reported) Entered as Reported by: CELSO SZYMANSKI on 02/15/18 0350 Carvedilol (Carvedilol) 6.25 Mg Tablet, 6.25 MG PO DAILY, (Reported) Entered as Reported by: CELSO MARLOW on 07/25/17 1535 Clopidogrel Bisulfate (Clopidogrel) 75 Mg Tablet, 75 MG PO DAILY, (Reported) Entered as Reported by: JEFF LEWIS on 11/08/19 1527 Fish Oil/Dha/Epa (Fish Oil 1,200 mg Fish Oil) 1 Each Capsule, 1 EACH PO DAILY, (Reported) Entered as Reported by: JEFF LEWIS on 06/29/20 1251 Isosorbide Mononitrate (Isosorbide Mononitrate ER) 30 Mg Tab.er.24h, 30 MG PO DAILY, (Reported) Entered as Reported by: PASHA GALEANA on 07/25/16 0945 Mirtazapine (Mirtazapine) 30 Mg Tablet, 30 MG PO HS, (Reported) Entered as Reported by: CELSO SZYMANSKI on 02/15/18 0350 Montelukast Sodium (Montelukast Sodium) 10 Mg Tablet, 10 MG PO DAILY, (Reported) Entered as Reported by: JEFF LEWIS on 06/29/20 1249 Nitroglycerin (Nitroglycerin) 0.4 Mg Tab.subl, 0.4 MG SL UD PRN for CHEST PAIN Prescribed by: JUAREZ TOLENTINO on 08/19/21 1013 Ranolazine (Ranolazine ER) 1,000 Mg Tab.er.12h, 1,000 MG PO DAILY, (Reported) Entered as Reported by: JEFF LEWIS on 06/29/20 1249 Sertraline HCl (Sertraline HCl) 100 Mg Tablet, 100 MG PO DAILY, (Reported) Entered as Reported by: JEFF LEWIS on 11/08/19 1527 Review of Systems Review of Systems Constitutional: dizziness EENTM: No Symptoms Reported Respiratory: Cough (chronic ), Shortness of Air (chronic ) Cardiovascular: See HPI Gastrointestinal: See HPI Genitourinary: No Symptoms Reported Musculoskeletal: no symptoms reported Skin: no symptoms reported Psychiatric/Neurological: No Symptoms Reported Endocrine: No Symptoms Reported Hematologic/Lymphatic: No Symptoms Reported Past Cgxgpoq-Gocywk-Cltxpz Hx Immunizations Up To Date Tetanus Booster (TDap): Unknown PED Vaccines UTD: No First/Initial COVID19 Vaccinat: UNKNOWN Second COVID19 Vaccination Guillermo: 04/29 Third COVID19 Vaccination Date: UNKNOWN Seasonal Allergies Seasonal Allergies: No Past Medical History Surgery/Hospitalization HX: PR 2016 Surgeries: Yes (LEFT INGUINAL HERNIA;CABG WITH STENTS IN HEART AND LEG) Abdominal, Cardiac, CABG, Coronary Stent, Tonsillectomy, Vascular Surgery Respiratory: Yes (WEARS O2 AT 5L/NC CONTINUOUSLY. RUL PULMONARY NODULE) Pneumonia, Chronic Bronchitis, COPD Currently Using CPAP: No Currently Using BIPAP: No Cardiac: Yes (STENT X1/ANGIO L EXT ILIAC ART;CABG/STENT X4;CAROTID DZ;CHF;CARDIAC ARREST) Coronary Artery Disease, Deep Vein Thrombosis, Heart Attack, High Cholesterol, Hypertension, Peripheral Vascular Neurological: Yes Stroke Reproductive Disorders: No Sexually Transmitted Disease: No HIV/AIDS: No Genitourinary: No Gastrointestinal: Yes Abdominal Hernia, Gastroesophageal Reflux, Diverticulosis, Ulcer Musculoskeletal: Yes Arthritis, Chronic Back Pain Endocrine: No HEENT: No Loss of Vision: Denies Hearing Impairment: Denies Cancer: No Psychosocial: Yes Sleep Difficulties, Anxiety, Schizophrenia, Depression Integumentary: No Blood Disorders: No Adverse Reaction/Blood Tranf: No Family Medical History Diabetes mellitus 19 MOTHER FH: heart disease 19 FATHER Heart Disease, Diabetes SOCIAL HX: -HX OF ALCOHOL ABUSE--CLAIMS HE QUIT YEARS AGO -DENIES DRUG USE -SMOKED 2-3 PPD--QUIT 2017 PSH: -CABG--1 VESSEL BYPASS -CARDIAC CATHS AND STENTS X 4, WITH ANGIOPLASTIES--LAST CARDIAC CATH 03/2018--PATENT STENT TO PROXIMAL LAD TO FIRST DIAGONAL, COMPLETE OCCLUSION OF MID LAD AND TO VEIN GRAFT TO LAD; EF 45-50%--NO INTERVENTION DONE AT THAT TIME AND FINDINGS WERE THE SAME THOSE FOUND ON CARDIAC CATH IN 2014 -ANGIOPLASTY AND STENT X 1 TO LEFT LEG/EXTERNAL ILIAC ARTERY 02/2017 -LEFT INGUINAL HERNIA REPAIR -TONSILLECTOMY ADDITIONAL PMH: -HX OF CARDIAC ARREST -CAROTID DISEASE--SEVERE ON RIGHT -RBBB ; LAFB Physical Exam Vital Signs Vital Signs - First Documented 10/29/21 19:16 Temp 36.1 Pulse 91 Resp 19 B/P (MAP) 152/79 (103) Pulse Ox 98 O2 Delivery Nasal Cannula O2 Flow Rate 4.00 Capillary Refill : Height, Weight, BMI Height: 5'8.00" Weight: 174lbs. 0.0oz. 78.006155so; 26.25 BMI Method:Stated General Appearance: No Apparent Distress, WD/WN HEENT: PERRL/EOMI, Normal ENT Inspection, Pharynx Normal, Moist Mucous Membranes Neck: Normal Inspection, Non Tender, Supple Respiratory: Lungs Clear, Normal Breath Sounds, No Accessory Muscle Use, No Respiratory Distress Cardiovascular: Regular Rate, Rhythm, No Edema, No Gallop Gastrointestinal: Normal Bowel Sounds, No Organomegaly, No Pulsatile Mass, Non Tender, Soft Extremity: Normal Capillary Refill, Normal Inspection, Normal Range of Motion Neurologic/Psychiatric: Alert, Oriented x3, No Motor/Sensory Deficits, Normal Mood/Affect Skin: Normal Color, Warm/Dry Progress/Results/Core Measures Results/Orders Lab Results Laboratory Tests Test 10/29/21 19:20 Range/Units White Blood Count 6.0 4.3-11.0 10^3/uL Red Blood Count 3.40 L 4.30-5.52 10^6/uL Hemoglobin 9.9 L 13.3-17.7 g/dL Hematocrit 32 L 40-54 % Mean Corpuscular Volume 95 80-99 fL Mean Corpuscular Hemoglobin 29 25-34 pg Mean Corpuscular Hemoglobin Concent 31 L 32-36 g/dL Red Cell Distribution Width 12.9 10.0-14.5 % Platelet Count 131 130-400 10^3/uL Mean Platelet Volume 10.8 9.0-12.2 fL Immature Granulocyte % (Auto) 0 % Neutrophils (%) (Auto) 61 42-75 % Lymphocytes (%) (Auto) 29 12-44 % Monocytes (%) (Auto) 9 0-12 % Eosinophils (%) (Auto) 1 0-10 % Basophils (%) (Auto) 0 0-10 % Neutrophils # (Auto) 3.7 1.8-7.8 10^3/uL Lymphocytes # (Auto) 1.7 1.0-4.0 10^3/uL Monocytes # (Auto) 0.5 0.0-1.0 10^3/uL Eosinophils # (Auto) 0.1 0.0-0.3 10^3/uL Basophils # (Auto) 0.0 0.0-0.1 10^3/uL Immature Granulocyte # (Auto) 0.0 0.0-0.1 10^3/uL Percent Immature Platelet Fraction 5.0 0.0-7.6 % Prothrombin Time 12.2 12.2-14.7 SEC INR Comment 0.9 0.8-1.4 Activated Partial Thromboplast Time 30 24-35 SEC D-Dimer 0.71 H 0.00-0.49 UG/ML Sodium Level 141 135-145 MMOL/L Potassium Level 3.7 3.6-5.0 MMOL/L Chloride Level 94 L 98-107 MMOL/L Carbon Dioxide Level 37 H 21-32 MMOL/L Anion Gap 10 5-14 MMOL/L Blood Urea Nitrogen 10 7-18 MG/DL Creatinine 0.80 0.60-1.30 MG/DL Estimat Glomerular Filtration Rate 98 BUN/Creatinine Ratio 13 Glucose Level 111 H 70-105 MG/DL Calcium Level 9.3 8.5-10.1 MG/DL Corrected Calcium 9.4 8.5-10.1 MG/DL Magnesium Level 1.6 1.6-2.4 MG/DL Total Bilirubin 0.4 0.1-1.0 MG/DL Aspartate Amino Transf (AST/SGOT) 19 5-34 U/L Alanine Aminotransferase (ALT/SGPT) 16 0-55 U/L Alkaline Phosphatase 101 40-136 U/L Total Creatine Kinase 88 30-200 U/L Creatine Kinase MB 1.7 <6.6 NG/ML Myoglobin 41.8 10.0-92.0 NG/ML Troponin I < 0.028 <0.028 NG/ML B-Type Natriuretic Peptide 31.6 <100.0 PG/ML Total Protein 6.8 6.4-8.2 GM/DL Albumin 3.9 3.2-4.5 GM/DL My Orders Orders - REGINA VUONG BAR HOST/HOSTESS Cbc With Automated Diff (10/29/21 19:15) Magnesium (10/29/21 19:15) Ekg Tracing (10/29/21 19:15) Comprehensive Metabolic Panel (10/29/21 19:15) Myoglobin Serum (10/29/21 19:15) Protime With Inr (10/29/21 19:15) Partial Thromboplastin Time (10/29/21 19:15) O2 (10/29/21 19:15) Monitor-Rhythm Ecg Trace Only (10/29/21 19:15) Ed Iv/Invasive Line Start (10/29/21 19:15) Creatine Kinase (10/29/21 19:15) Creatine Kinase Mb (10/29/21 19:15) Bnp Negrita (10/29/21 19:15) Fibrin Degradation Products (10/29/21 19:15) Troponin I [place] (10/29/21 19:15) Morphine Injection (Morphine Injection (10/29/21 19:21) Chest 1 View, Ap/Pa Only (10/29/21 ) Nitroglycerin Ointment (Nitrobid Ointme (10/29/21 21:00) Ranolazine Er Tablet (Ranexa Er Tablet) (10/29/21 20:58) Ed Admission (Communication) (10/29/21 21:38) Medications Given in ED Current Medications Medications Dose Ordered Sig/Shira Route Start Time Stop Time Status Last Admin Dose Admin Nitroglycerin 1 inch ONCE ONCE TOP 10/29/21 21:00 10/29/21 21:01 DC 10/29/21 21:40 1 INCH Vital Signs/I&O 10/29/21 19:16 Temp 36.1 Pulse 91 Resp 19 B/P (MAP) 152/79 (103) Pulse Ox 98 O2 Delivery Nasal Cannula O2 Flow Rate 4.00 Progress Progress Note : Progress Note Patient received minimal relief of CP with three Nitro, MS, and Fentanyl. Currently rating pain 8/10 while watching TV in exam room. Orders given for Nitro paste and to receive his home dose of Ranexa. Reviewed with Dr. Nash, will admit for unstable angina. Plan of care reviewed with patient and he is agreeable with plan. Initial ECG Impression Date: October 29, 2021 Initial ECG Impression Time: 19:27 Initial ECG Rate: 82 Initial ECG Rhythm: Normal Sinus Initial ECG Intervals: Normal Initial ECG Comparisson: Unchanged Diagnostic Imaging Diagonstic Imaging: Xray Plain Films/CT/US/NM/MRI: chest Comments [facility], [place] NAME: WINTER PIEDRA MED REC#: [id number] PT STATUS: REG ER : 1955 PHYSICIAN: REGINA VUONG BAR HOST/HOSTESS ADMIT DATE: 10/29/21/ER Signed Date of Exam:10/29/21 CHEST 1 VIEW, AP/PA ONLY EXAMINATION: Chest 1 view HISTORY: Chest pain COMPARISON: 10/17/2021 FINDINGS: Heart size and pulmonary vasculature are normal. Surgical changes from CABG and median sternotomy. The lungs are clear without consolidation, pleural effusion, or pneumothorax. The osseous structures are intact. IMPRESSION: 1. No acute radiographic abnormality in the chest. Dictated by: Dictated on workstation # [id number] Dict: 10/29/211953 Trans: 10/29/212010 [facility] [id number] Interpreted by: KYLER WRIGHT DO Electronically signed by: KYLER WRIGHT DO 10/29/212010 Departure Communication (Admissions) Time/Spoke to Admitting Phy: 21:45 Dr. Nash. Time/Spoke to Consulting Phy: 20:30 Dr. Carrion. Does not feel symptoms are due to ischemia at this time. If able to stabilize chest pain, may discharge home with follow up. Impression Primary Impression: Unstable angina Disposition: ADMITTED INPATIENT Condition: Stable Admissions Decision to Admit Reason: Admit from ER (General) Decision to Admit/Date: October 29, 2021 Time/Decision to Admit Time: 21:45 Departure-Patient Inst. Decision time for Depature: 21:00 Referrals: SONYA FERNANDEZ MD (PCP/Family) Primary Care Physician Patient Instructions: Chest Pain (DC) Add. Discharge Instructions: Plan: 1. Make sure you are taking your medications as directed. 2. Follow up with Dr. Carrion, call office to schedule appointment. 3. Return for any new, concerning, or worsening symptoms. All discharge instructions reviewed with patient and/or family. Voiced understanding. REGINA VUONG BAR HOST/HOSTESS October 29, 2021 19:27
[2021-10-29 19:36] LABS: EOSINOPHILS # (AUTO) 0.1 10^3/uL (0.0-0.3); EOSINOPHILS % (AUTO) 1 % (0-10); MEAN PLATELET VOLUME 10.8 fL (9.0-12.2)
[2021-10-29 19:38] LABS: BASOPHILS % (AUTO) 0 % (0-10); HEMATOCRIT 32 % (40-54); HEMOGLOBIN 9.9 g/dL (13.3-17.7); LYMPHOCYTES # (AUTO) 1.7 10^3/uL (1.0-4.0); LYMPHOCYTES % (AUTO) 29 % (12-44); MEAN CORPUSCULAR HEMOGLOBIN 29 pg (25-34); MEAN CORPUSCULAR HGB CONC 31 g/dL (32-36); MEAN CORPUSCULAR VOLUME 95 fL (80-99); MONOCYTES # (AUTO) 0.5 10^3/uL (0.0-1.0); MONOCYTES % (AUTO) 9 % (0-12); NEUTROPHILS # (AUTO) 3.7 10^3/uL (1.8-7.8); NEUTROPHILS % (AUTO) 61 % (42-75); PLATELET COUNT 131 10^3/uL (130-400)
--- NOTE | 2021-10-29 19:55 | Diagnostic Imaging Report ---
EXAMINATION: Chest 1 view HISTORY: Chest pain COMPARISON: 10/17/2021 FINDINGS: Heart size and pulmonary vasculature are normal. Surgical changes from CABG and median sternotomy. The lungs are clear without consolidation, pleural effusion, or pneumothorax. The osseous structures are intact. IMPRESSION: 1. No acute radiographic abnormality in the chest. Dictated by: Dictated on workstation # [id number]
[2021-10-29 20:07] LABS: ALBUMIN 3.9 GM/DL (3.2-4.5); BILIRUBIN,TOTAL 0.4 MG/DL (0.1-1.0); CALCIUM 9.3 MG/DL (8.5-10.1); CREATININE SERUM 0.8 MG/DL (0.60-1.30); MAGNESIUM 1.6 MG/DL (1.6-2.4); POTASSIUM 3.7 MMOL/L (3.6-5.0); TOTAL PROTEIN 6.8 GM/DL (6.4-8.2)
[2021-10-29 20:17] LABS: CREATINE KINASE MB 1.7 NG/ML (<6.6)
[2021-10-29] MEDS ORDERED: RANOLAZINE ER 500 MG TAB (RANEXA) PO STA (20:58)
[2021-10-29] MEDS ORDERED: NITROGLYCERIN 2% OINT 1 GM UNIT DOSE PACKET TOP ONE (21:00)
[2021-10-29] MEDS ORDERED: ONDANSETRON 4 MG/2 ML (SDV) Z0FRAN IVP ONE (22:15)
[2021-10-29 22:26] LABS: INR 0.9 (0.8-1.4); PROTHROMBIN TIME PATIENT 12.2 SEC (12.2-14.7)
[2021-10-29] MEDS ORDERED: diphenhydrAMINE 25 MG TAB (BENADRYL) PO PRN (22:45)
[2021-10-29] MEDS ORDERED: MILK OF MAGNESIA 400 MG/5 ML 30 ML UDC PO PRN (22:45)
[2021-10-29] MEDS ORDERED: ONDANSETRON 4 MG/2 ML (SDV) Z0FRAN IV PRN ×2 (22:45)
[2021-10-29] MEDS ORDERED: PATIENT MAY USE OWN MEDS, ALL PO SCH (22:45)
[2021-10-29] MEDS ORDERED: ALPRAZolam 0.25 MG (XANAX) TAB PO PRN (22:45)
[2021-10-29] MEDS ORDERED: morphine INJ 4 MG/ML 1 ML (VIAL/SYRINGE) IV PRN (22:45)
[2021-10-29] MEDS ORDERED: ONDANSETRON 4 MG (ZOFRAN) ORAL DISSOLVE TAB PO PRN ×2 (22:45)
[2021-10-29] MEDS ORDERED: ANTACID SUSP 30 ML UDC (MYLANTA) PO PRN (22:45)
[2021-10-29] MEDS ORDERED: polyethylene glycoL POWDER 17 GM (MIRALAX) PACK PO PRN (22:45)
[2021-10-29] MEDS ORDERED: diphenhydrAMINE 50 MG/ML INJ (BENADRYL) IVP PRN (22:45)
[2021-10-29] MEDS ORDERED: ACETAMINOPHEN 325 MG TABLET PO PRN (22:45)
[2021-10-29] MEDS ORDERED: BISACODYL 10 MG SUPP (DULCOLAX) PR PRN (22:45)
[2021-10-29] MEDS ORDERED: MELATONIN 3 MG TABLET PO PRN (22:45)
[2021-10-29] MEDS ORDERED: NITROGLYCERIN 0.4 MG SL TABS BTL 25'S SL PRN (22:45)
[2021-10-29] MEDS ORDERED: LACTULOSE SYRUP 10GM/15ML (ENULOSE) 30ML UDC PO PRN (22:45)
[2021-10-29 23:00] VITALS: BP 136/69
[2021-10-29 23:04] VITALS: BP 152/79
[2021-10-29] MEDS ORDERED: RT-ALBUTEROL/IPRATROPIUM 3 ML (DUONEB) VIAL INH PRN (23:15)
[2021-10-29] MEDS ORDERED: CALCIUM CARBONATE 500 MG (TUMS) TAB.CHEW PO PRN (23:30)
[2021-10-29] MEDS: ENOXAPARIN 40 MG/0.4 ML (LOVENOX) SYR SC SCH (23:44)
[2021-10-30] VITALS (7 sets, daily range): BP systolic 123–149; BP diastolic 64–86
[2021-10-30] MEDS ORDERED: RT-ALBUTEROL SULF 2.5 MG/3 ML PRE-MIX VIAL INH SCH (02:00)
[2021-10-30] MEDS: PANTOPRAZOLE 40 MG (PROTONIX) TAB PO SCH (05:39)
[2021-10-30] MEDS: SUCRALFATE 1 GM (CARAFATE) TAB PO SCH ×3 (05:39→16:53)
[2021-10-30 06:21] LABS: BASOPHILS % (AUTO) 0 % (0-10); MEAN CORPUSCULAR HGB CONC 30 g/dL (32-36); MEAN CORPUSCULAR VOLUME 97 fL (80-99); MONOCYTES # (AUTO) 0.4 10^3/uL (0.0-1.0); PLATELET COUNT 116 10^3/uL (130-400)
[2021-10-30 06:22] LABS: EOSINOPHILS # (AUTO) 0.1 10^3/uL (0.0-0.3); EOSINOPHILS % (AUTO) 1 % (0-10); HEMATOCRIT 32 % (40-54); HEMOGLOBIN 9.5 g/dL (13.3-17.7); LYMPHOCYTES # (AUTO) 1.6 10^3/uL (1.0-4.0); LYMPHOCYTES % (AUTO) 36 % (12-44); MEAN CORPUSCULAR HEMOGLOBIN 29 pg (25-34); MEAN PLATELET VOLUME 11.1 fL (9.0-12.2); MONOCYTES % (AUTO) 9 % (0-12); NEUTROPHILS # (AUTO) 2.4 10^3/uL (1.8-7.8); NEUTROPHILS % (AUTO) 54 % (42-75); WHITE BLOOD COUNT 4.5 10^3/uL (4.3-11.0)
[2021-10-30 06:38] LABS: ALBUMIN 3.6 GM/DL (3.2-4.5); CHLORIDE 94 MMOL/L (98-107); POTASSIUM 4.2 MMOL/L (3.6-5.0); SODIUM 140 MMOL/L (135-145)
[2021-10-30 06:40] LABS: TRIGLYCERIDES 57 MG/DL (<150); VLDL CHOLESTEROL 11 MG/DL (5-40)
[2021-10-30 06:41] LABS: GLUCOSE 90 MG/DL (70-105); TOTAL PROTEIN 6.5 GM/DL (6.4-8.2)
[2021-10-30 06:42] LABS: CARBON DIOXIDE 36 MMOL/L (21-32)
[2021-10-30 06:43] LABS: BILIRUBIN,TOTAL 0.4 MG/DL (0.1-1.0)
[2021-10-30 06:44] LABS: ALKALINE PHOSPHATASE 92 U/L (40-136); GFR ESTIMATED 98
[2021-10-30 06:45] LABS: CHOLESTEROL 165 MG/DL (< 200)
[2021-10-30 06:46] LABS: BUN/CREATININE RATIO 10; HDL CHOLESTEROL 71 MG/DL (40-60)
[2021-10-30 06:47] LABS: ALANINE AMINOTRANSFERASE 18 U/L (0-55)
[2021-10-30] MEDS: CLOPIDOGREL 75 MG (PLAVIX) TABLET PO SCH (08:48)
[2021-10-30] MEDS: RANOLAZINE ER 500 MG TAB (RANEXA) PO SCH ×2 (08:48→21:31)
[2021-10-30] MEDS: ASPIRIN E.C. 81 MG (ECOTRIN) TAB PO SCH (08:49)
[2021-10-30] MEDS: SENNOSIDES 8.6 MG (SENOKOT) TAB PO SCH ×2 (08:55→21:31)
[2021-10-30] MEDS: polyethylene glycoL POWDER 17 GM (MIRALAX) PACK PO SCH ×2 (08:55→21:31)
[2021-10-30] MEDS: DOCUSATE SODIUM 100 MG (COLACE) CAP PO SCH ×2 (08:55→21:31)
[2021-10-30] MEDS ORDERED: RT-ALBUTEROL/IPRATROPIUM 3 ML (DUONEB) VIAL INH SCH (09:00)
[2021-10-30] MEDS: NS IV 1000 ML 1,000 ML IV SCH ×2 (09:10→18:29)
[2021-10-30] MEDS ORDERED: ALPRAZolam 0.5 MG (XANAX) TAB PO NR (12:24)
--- NOTE | 2021-10-30 14:10 | Consultation-Cardiology ---
HPI-Cardiology Cardiology Consultation Date of Consultation 10/30/21 Date of Admission Time Seen by Provider: 14:05 Indication: CP HPI 66-year-old gentleman with severe COPD and coronary artery disease, congestive heart failure, came into the emergency room reporting severe chest pain. Reporting episodes of dizziness and lightheadedness. Had a Nitropatch, on this morning and reporting mild chest discomfort but mainly dizziness and lightheadedness. No syncope or near syncopal episodes. No palpitation. Home Medications & Allergies Allergies: Coded Allergies: budesonide (Verified Allergy, Severe, angioedema, 12/06/18) formoterol (Verified Allergy, Severe, angioedema, 12/06/18) tetanus toxoid, adsorbed (Verified Allergy, Mild, hives, 12/06/18) DOROTA Inhibitors (Verified Allergy, Unknown, Angioedema, 12/06/18) Home Medication List Reviewed: Yes [id number]-[id number] Hx Patient Social History Marital Status: Employed/Student: retired Drug of Choice: DENIES Smoking Status: Former Smoker Former smoker/When Quit: Aug 21, 2014 Type Used: Cigarettes 2nd Hand Smoke Exposure: Yes Recent Hopitalizations: No Have you traveled recently?: No Alcohol Use?: No Immunizations Up To Date Tetanus Booster (TDap): Unknown Date of Pneumonia Vaccine: Apr 26, 2020 Date of Influenza Vaccine: Apr 26, 2020 Past Medical History Discussed below Family Medical History Significant Family History: Heart Disease, Diabetes Family History: Diabetes mellitus 19 MOTHER FH: heart disease 19 FATHER Review of Systems-General Review of Systems Constitutional: dizziness, malaise, weakness EENTM: see HPI, no symptoms reported Respiratory: see HPI; No cough; dyspnea on exertion; No hemoptysis; orthopnea; No phlegm; short of breath; No stridor, No wheezing, No other Cardiovascular: no symptoms reported, see HPI, chest pain, edema; No Hx of Intervention, No palpitations, No syncope, No vascular heart diseas, No other Gastrointestinal: no symptoms reported, see HPI Genitourinary: no symptoms reported, see HPI Musculoskeletal: no symptoms reported, see HPI Skin: no symptoms reported, see HPI Psychiatric/Neurological: No Symptoms Reported, See HPI Reviewed Test Results Reviewed Test Results Lab Laboratory Tests Test 10/29/21 19:20 10/30/21 05:17 Range/Units White Blood Count 6.0 4.5 4.3-11.0 10^3/uL Red Blood Count 3.40 L 3.26 L 4.30-5.52 10^6/uL Hemoglobin 9.9 L 9.5 L 13.3-17.7 g/dL Hematocrit 32 L 32 L 40-54 % Mean Corpuscular Volume 95 97 80-99 fL Mean Corpuscular Hemoglobin 29 29 25-34 pg Mean Corpuscular Hemoglobin Concent 31 L 30 L 32-36 g/dL Red Cell Distribution Width 12.9 12.9 10.0-14.5 % Platelet Count 131 116 L 130-400 10^3/uL Mean Platelet Volume 10.8 11.1 9.0-12.2 fL Immature Granulocyte % (Auto) 0 0 % Neutrophils (%) (Auto) 61 54 42-75 % Lymphocytes (%) (Auto) 29 36 12-44 % Monocytes (%) (Auto) 9 9 0-12 % Eosinophils (%) (Auto) 1 1 0-10 % Basophils (%) (Auto) 0 0 0-10 % Neutrophils # (Auto) 3.7 2.4 1.8-7.8 10^3/uL Lymphocytes # (Auto) 1.7 1.6 1.0-4.0 10^3/uL Monocytes # (Auto) 0.5 0.4 0.0-1.0 10^3/uL Eosinophils # (Auto) 0.1 0.1 0.0-0.3 10^3/uL Basophils # (Auto) 0.0 0.0 0.0-0.1 10^3/uL Immature Granulocyte # (Auto) 0.0 0.0 0.0-0.1 10^3/uL Percent Immature Platelet Fraction 5.0 5.5 0.0-7.6 % Prothrombin Time 12.2 12.2-14.7 SEC INR Comment 0.9 0.8-1.4 Activated Partial Thromboplast Time 30 24-35 SEC D-Dimer 0.71 H 0.00-0.49 UG/ML Sodium Level 141 140 135-145 MMOL/L Potassium Level 3.7 4.2 3.6-5.0 MMOL/L Chloride Level 94 L 94 L 98-107 MMOL/L Carbon Dioxide Level 37 H 36 H 21-32 MMOL/L Anion Gap 10 10 5-14 MMOL/L Blood Urea Nitrogen 10 8 7-18 MG/DL Creatinine 0.80 0.80 0.60-1.30 MG/DL Estimat Glomerular Filtration Rate 98 98 BUN/Creatinine Ratio 13 10 Glucose Level 111 H 90 70-105 MG/DL Calcium Level 9.3 9.0 8.5-10.1 MG/DL Corrected Calcium 9.4 9.3 8.5-10.1 MG/DL Magnesium Level 1.6 1.6-2.4 MG/DL Total Bilirubin 0.4 0.4 0.1-1.0 MG/DL Aspartate Amino Transf (AST/SGOT) 19 20 5-34 U/L Alanine Aminotransferase (ALT/SGPT) 16 18 0-55 U/L Alkaline Phosphatase 101 92 40-136 U/L Total Creatine Kinase 88 30-200 U/L Creatine Kinase MB 1.7 <6.6 NG/ML Myoglobin 41.8 10.0-92.0 NG/ML Troponin I < 0.028 < 0.028 <0.028 NG/ML B-Type Natriuretic Peptide 31.6 <100.0 PG/ML Total Protein 6.8 6.5 6.4-8.2 GM/DL Albumin 3.9 3.6 3.2-4.5 GM/DL Triglycerides Level 57 <150 MG/DL Cholesterol Level 165 < 200 MG/DL LDL Cholesterol Direct 79 1-129 MG/DL VLDL Cholesterol 11 5-40 MG/DL HDL Cholesterol 71 H 40-60 MG/DL Physical Exam Physical Exam Vital Signs Vital Signs - First Documented 10/29/21 23:04 FiO2 36 Capillary Refill : Height, Weight, BMI Height: 5'8.00" Weight: 174lbs. 0.0oz. 78.776345cp; 24.65 BMI Method:Stated General Appearance: No Apparent Distress, WD/WN HEENT: PERRL/EOMI, Normal ENT Inspection, Pharynx Normal, Moist Mucous Membranes Neck: Normal Inspection, Non Tender, Supple Respiratory: Lungs Clear, Normal Breath Sounds, No Accessory Muscle Use, No Respiratory Distress Cardiovascular: Regular Rate, Rhythm, No Edema, No Gallop Gastrointestinal: Normal Bowel Sounds, No Organomegaly, No Pulsatile Mass, Non Tender, Soft Extremity: Normal Capillary Refill, Normal Inspection, Normal Range of Motion Neurologic/Psychiatric: Alert, Oriented x3, No Motor/Sensory Deficits, Normal Mood/Affect Skin: Normal Color, Warm/Dry A/P-Cardiology Admission Diagnosis Chest pain Dizziness Coronary artery disease Hypertension Assessment/Plan Chest pain, history of chronic stable angina. History of multiple hospitalization with recurrent chest pain. I recommend conservative management. Continue to monitor, plan to evaluate 2D echo Dizziness and lightheadedness, probably labile hypertension. Has underlying COPD and hypoxemia. Still having some dizziness today. I stopped the Nitropatch. Monitor tolerance and response. Coronary artery disease, Cardiac catheterization was done in September 2014 showing total occlusion of the LAD at its midportion with occluded vein graft to the LAD did not fill with collaterals on this study, patent stent in the proximal LAD to the diagonal artery, mild disease in the circumflex and right coronary artery, prominent left ventricle with EF 45 percent. Repeat cardiac catheterization was done in March 2018 showing total occlusion of the mid LAD and the vein graft to the LAD, patent stent in the proximal LAD that was providing flow to the first diagonal branch, mild disease in the circumflex artery and right coronary artery, the apex of the left ventricular still akinetic with ejection fraction 45-50 percent. Coronary arteriotomy deemed inoperable. Conservative management is recommended. Peripheral edema, resolved, continue to monitor History of congestive heart failure with chronic compensated left ventricular systolic dysfunction, last echocardiogram done in June 2020 showed normal left ventricular systolic function with ejection fraction 55-65 percent with pulmonary hypertension PA pressure of 45 mmHg. Peripheral arterial disease, history of stent to the left lower extremity, having pain in his lower extremity, seen and evaluated with heart and vascular care, had angiogram and balloon angioplasty with angioscore cutting balloon 5x40 mm to the left external iliac then stenting to the left external iliac artery with 6x50 Viabahn postdilated with a Brent balloon. Done by Dr. Jackson. He has stopped following with heart and vascular care COPD, oxygen dependent. Hypertension, restart home medication monitor blood pressure Hyperlipidemia, continue to monitor lipids Tobaccoism, expressed that he has stopped smoking, encouraged to continue with smoking cessation Carotid stenosis, s had a CT angiogram reported as severe stenosis in the right carotid artery 70 to 80%, no significant stenosis on the left. Patient had right carotid endarterectomy done in May 2021 in [facility]. Recovered well. Clinical Quality Measures AMI/AHF: ASA po Prior to arrival: Yes JOSHUA CASTILLO MD October 30, 2021 14:10
--- NOTE | 2021-10-30 16:37 | History & Physical-Hospitalist ---
History of Present Illness HPI/Chief Complaint Ethan Dougherty is a 66-year-old male with past medical history of hypertension, hyperlipidemia, coronary artery disease, carotid stenosis, COPD, chronic hypoxic respiratory failure, tobacco abuse, who presented with chest pain. He reports the pain is located on the left side of his chest and radiated to his left arm. He also had diaphoresis and nausea. He denies shortness of breath. He has no other complaints or concerns. Source: patient Exam Limitations: no limitations Date Seen 10/30/21 Time Seen by a Provider: 10:00 Attending Physician Stanford Hanks MD PCP Admitting Physician: Mel Nash DO Attending Physician: Rohit Sal MD Referring Physician Date of Admission October 29, 2021 at 21:39 Home Medications & Allergies Home Medications Reviewed patient Home Medication Reconciliation performed by pharmacy medication reconciliations geoscience laboratory technician and/or nursing. Patients Allergies have been reviewed. Allergies Allergies Coded Allergies budesonide (Verified Allergy, Severe, angioedema, 12/06/18) formoterol (Verified Allergy, Severe, angioedema, 12/06/18) tetanus toxoid, adsorbed (Verified Allergy, Mild, hives, 12/06/18) DOROTA Inhibitors (Verified Allergy, Unknown, Angioedema, 12/06/18) Past Yhiejde-Fxzbbn-Jbpext Hx Patient Social History Marrital Status: Employed/Student: retired Tobacco Use?: No Tobacco type used: Cigarettes Smoking Status: Former Smoker Use of E-Cig and/or Vaping dev: No Substance use?: No Alcohol Use?: No Pt feels they are or have been: No Immunizations Up To Date Date of Influenza Vaccine: Apr 26, 2020 First/Initial COVID19 Vaccinat: 2020 Second COVID19 Vaccination Guillermo: 2020 Tetanus Booster (TDap): Less Than 5 Years Hepatitis A: No Hepatitis B: No PED Vaccines UTD: No Date of Pneumonia Vaccine: Apr 26, 2020 Seasonal Allergies Seasonal Allergies: No Current Status Advance Directives: Yes Advance Directive Location: Home Communicates: Verbally Primary Language: Azerbaijani Preferred Spoken Language: Azerbaijani Is interpretation needed?: No Implanted or Applied Medical D: Stents Past Medical History Surgeries: Abdominal, Cardiac, CABG, Coronary Stent, Tonsillectomy, Vascular Surgery Pneumonia, Chronic Bronchitis, COPD Currently Using CPAP: No Currently Using BIPAP: No Coronary Artery Disease, Deep Vein Thrombosis, Heart Attack, High Cholesterol, Hypertension, Peripheral Vascular Stroke Sexually Transmitted Disease: No HIV/AIDS: No Abdominal Hernia, Gastroesophageal Reflux, Diverticulosis, Ulcer Arthritis, Chronic Back Pain Loss of Vision: Denies Hearing Impairment: Denies Sleep Difficulties, Anxiety, Schizophrenia, Depression Blood Disorders: No Adverse Reaction/Blood Tranf: No Past Medical History 1. CAD with history of CABG 2. Tobaccoism 3. Severe COPD 4. HTN 5. Anxiey 6. Chronic Unstable Angina 7. Depression Past Surgical History 1. CABG 2. Multiple Cardiac Cath. 3. Tonsillectomy 4. Hernia Repair Family Medical History Diabetes mellitus 19 MOTHER FH: heart disease 19 FATHER Heart Disease, Diabetes SOCIAL HX: -HX OF ALCOHOL ABUSE--CLAIMS HE QUIT YEARS AGO -DENIES DRUG USE -SMOKED 2-3 PPD--QUIT 2017 PSH: -CABG--1 VESSEL BYPASS -CARDIAC CATHS AND STENTS X 4, WITH ANGIOPLASTIES--LAST CARDIAC CATH 03/2018--PATENT STENT TO PROXIMAL LAD TO FIRST DIAGONAL, COMPLETE OCCLUSION OF MID LAD AND TO VEIN GRAFT TO LAD; EF 45-50%--NO INTERVENTION DONE AT THAT TIME AND FINDINGS WERE THE SAME THOSE FOUND ON CARDIAC CATH IN 2014 -ANGIOPLASTY AND STENT X 1 TO LEFT LEG/EXTERNAL ILIAC ARTERY 02/2017 -LEFT INGUINAL HERNIA REPAIR -TONSILLECTOMY ADDITIONAL PMH: -HX OF CARDIAC ARREST -CAROTID DISEASE--SEVERE ON RIGHT -RBBB ; LAFB Review of Systems Constitutional: diaphoresis EENTM: no symptoms reported Respiratory: no symptoms reported Cardiovascular: chest pain Gastrointestinal: nausea Genitourinary: no symptoms reported Musculoskeletal: no symptoms reported Skin: no symptoms reported Psychiatric/Neurological: No Symptoms Reported Physical Exam Physical Exam Vital Signs Vital Signs - First Documented 10/29/21 23:04 FiO2 36 Capillary Refill : Height, Weight, BMI Height: 5'8.00" Weight: 174lbs. 0.0oz. [id number]; 24.65 BMI Method:Stated General Appearance: No Apparent Distress, WD/WN HEENT: PERRL/EOMI, Pharynx Normal Neck: Normal Inspection, Supple Respiratory: Lungs Clear, Normal Breath Sounds, No Respiratory Distress Cardiovascular: Regular Rate, Rhythm, No Edema, No Murmur Gastrointestinal: Normal Bowel Sounds, Non Tender, Soft Extremity: Normal Inspection, Non Tender, No Pedal Edema Skin: Normal Color, Warm/Dry Results Results/Procedures Labs Laboratory Tests 10/29/21 19:20 10/30/21 05:17 Patient resulted labs reviewed. Imaging: Reviewed Imaging Report Assessment/Plan Admission Diagnosis Chest pain Admission Status: Inpatient Order (span 2 midnights) Reason for Inpatient Admission: Chest pain Assessment and Plan Chest pain CAD Cardiology consulted Recommending conservative medical management Continue home medications Echo with normal EF, grade I diastolic dysfunction Anxiety Depression Begin Xanax Continue home meds HTN HLD COPD Continue home meds DVT prophylaxis: Lovenox Diagnosis/Problems Diagnosis/Problems (1) Chest pain Status: Acute (2) CAD (coronary artery disease) Status: Acute (3) Anxiety and depression Status: Acute Clinical Quality Measures AMI/AHF: ASA po Prior to arrival: Yes ROHIT SAL MD October 30, 2021 16:37
[2021-10-30] MEDS ORDERED: MIRTAZAPINE 15 MG (REMERON) TAB PO SCH (21:00)
[2021-10-30] MEDS ORDERED: MONTELUKAST 10 MG (SINGULAIR) TAB PO SCH (21:00)
[2021-10-30] MEDS: RT-ALBUTEROL/IPRATROPIUM 3 ML (DUONEB) VIAL INH SCH (21:21)
[2021-10-30] MEDS: ALPRAZolam 0.5 MG (XANAX) TAB PO SCH (21:27)
[2021-10-30] MEDS: ENOXAPARIN 40 MG/0.4 ML (LOVENOX) SYR SC SCH (22:14)
[2021-10-31 03:45] VITALS: BP 134/72
[2021-10-31] MEDS: NS IV 1000 ML 1,000 ML IV SCH (05:54)
[2021-10-31] MEDS: PANTOPRAZOLE 40 MG (PROTONIX) TAB PO SCH (05:54)
[2021-10-31] MEDS: SUCRALFATE 1 GM (CARAFATE) TAB PO SCH ×2 (05:54→12:07)
[2021-10-31 06:04] LABS: BASOPHILS % (AUTO) 0 % (0-10); EOSINOPHILS # (AUTO) 0.1 10^3/uL (0.0-0.3); EOSINOPHILS % (AUTO) 2 % (0-10); HEMATOCRIT 31 % (40-54); HEMOGLOBIN 9.3 g/dL (13.3-17.7); LYMPHOCYTES # (AUTO) 1.3 10^3/uL (1.0-4.0); LYMPHOCYTES % (AUTO) 30 % (12-44); MEAN CORPUSCULAR HEMOGLOBIN 29 pg (25-34); MEAN CORPUSCULAR HGB CONC 30 g/dL (32-36); MEAN CORPUSCULAR VOLUME 97 fL (80-99); MEAN PLATELET VOLUME 10.9 fL (9.0-12.2); MONOCYTES # (AUTO) 0.4 10^3/uL (0.0-1.0); MONOCYTES % (AUTO) 10 % (0-12); NEUTROPHILS # (AUTO) 2.4 10^3/uL (1.8-7.8); NEUTROPHILS % (AUTO) 58 % (42-75); PLATELET COUNT 116 10^3/uL (130-400); WHITE BLOOD COUNT 4.1 10^3/uL (4.3-11.0)
[2021-10-31 06:24] LABS: ALBUMIN 3.4 GM/DL (3.2-4.5); POTASSIUM 4.4 MMOL/L (3.6-5.0)
[2021-10-31 06:25] LABS: CALCIUM 8.8 MG/DL (8.5-10.1)
[2021-10-31 06:26] LABS: TOTAL PROTEIN 6.1 GM/DL (6.4-8.2)
[2021-10-31 06:28] LABS: BILIRUBIN,TOTAL 0.3 MG/DL (0.1-1.0)
[2021-10-31 06:30] LABS: CREATININE SERUM 0.89 MG/DL (0.60-1.30)
[2021-10-31] MEDS: RT-ALBUTEROL/IPRATROPIUM 3 ML (DUONEB) VIAL INH SCH (07:44)
[2021-10-31 07:49] VITALS: BP 155/82
[2021-10-31] MEDS: DOCUSATE SODIUM 100 MG (COLACE) CAP PO SCH (07:55)
[2021-10-31] MEDS: polyethylene glycoL POWDER 17 GM (MIRALAX) PACK PO SCH (07:55)
[2021-10-31] MEDS: SENNOSIDES 8.6 MG (SENOKOT) TAB PO SCH (07:55)
[2021-10-31] MEDS ORDERED: PANT40TA52 PO (08:35)
[2021-10-31] MEDS ORDERED: SUCR1TAB PO (08:35)
[2021-10-31] MEDS ORDERED: MTC10T PO (08:35)
[2021-10-31] MEDS ORDERED: RANO500T3 PO (08:35)
--- NOTE | 2021-10-31 08:37 | Discharge Summary ---
Discharge Summary Hospital Course Was the Problem List Reviewed?: Yes Problems/Dx: (1) Chest pain Status: Acute (2) CAD (coronary artery disease) Status: Acute (3) Anxiety and depression Status: Acute Hospital Course Date of Admission: October 29, 2021 at 21:39 Admission Diagnosis : Family Physician/Provider: Stanford Hanks MD Date of Discharge: 10/31/21 Discharge Diagnosis: Chest pain without evidence of ACS, nausea with reflux consulted Dr. EISENBERG for EGD outpatient, CAD previous stents, former smoker Hospital Course: Pt had an uneventful hospital course after he was admitted for chest pain. No evidence of acute coronary syndrome. Metoprolol was increased from [address] Carrion. No evidence of any need for any other procedure, except for an EGD as an outpatient. Dr. Eisenberg will come and talk to him about that. He will be placed on Carafate, Protonix, and Reglan in the meantime, along with increased Metoprolol dose. He will have a close follow up with PCP. Labs and Pending Lab Test: Laboratory Tests 10/31/21 05:15: White Blood Count 4.1L, Red Blood Count 3.22L, Hemoglobin 9.3L, Hematocrit 31L, Mean Corpuscular Volume 97, Mean Corpuscular Hemoglobin 29, Mean Corpuscular Hemoglobin Concent 30L, Red Cell Distribution Width 13.2, Platelet Count 116L, M tricia Platelet Volume 10.9, Immature Granulocyte % (Auto) 0, Neutrophils (%) (Auto) 58, Lymphocytes (%) (Auto) 30, Monocytes (%) (Auto) 10, Eosinophils (%) (Auto) 2, Basophils (%) (Auto) 0, Neutrophils # (Auto) 2.4, Lymphocytes # (Auto) 1.3, Monocytes # (Auto) 0.4, Eosinophils # (Auto) 0.1, Basophils # (Auto) 0.0, Immature Granulocyte # (Auto) 0.0, Sodium Level 140, Potassium Level 4.4, Chloride Level 98, Carbon Dioxide Level 33H, Anion Gap 9, Blood Urea Nitrogen 11, Creatinine 0.89, Estimat Glomerular Filtration Rate 95, BUN/Creatinine Ratio 12, Glucose Level 96, Calcium Level 8.8, Corrected Calcium 9.3, Total Bilirubin 0.3, Aspartate Amino Transf (AST/SGOT) 18, Alanine Aminotransferase (ALT/SGPT) 16, Alkaline Phosphatase 84, Total Protein 6.1L, Albumin 3.4 Home Meds Active Metoclopramide HCl 10 Mg Tablet 10 Mg PO ACHS Pantoprazole Sodium 40 Mg Tablet.dr 40 Mg PO DAILY@0700 Sucralfate 1 Gram Tablet 1 Gm PO AC Ranexa (Ranolazine) 500 Mg Tab.er.12h 1,000 Mg PO BID Nitroglycerin 0.4 Mg Tab.subl 0.4 Mg SL UD PRN Reported Fish Oil 1,200 mg Fish Oil (Fish Oil/Dha/Epa) 1 Each Capsule 1 Each PO DAILY Ranolazine ER (Ranolazine) 1,000 Mg Tab.er.12h 1,000 Mg PO DAILY Aripiprazole 30 Mg Tablet 30 Mg PO DAILY Montelukast Sodium 10 Mg Tablet 10 Mg PO DAILY Aspirin 81 Mg Tab.chew 81 Mg PO DAILY Sertraline HCl 100 Mg Tablet 200 Mg PO DAILY TAKES 2 (100MG) TABS Clopidogrel (Clopidogrel Bisulfate) 75 Mg Tablet 75 Mg PO DAILY Ventolin Hfa (Albuterol Sulfate) 1 Puff Puff 2 Puff IH PRN PRN Atorvastatin Calcium 80 Mg Tablet 80 Mg PO DAILY Mirtazapine 30 Mg Tablet 30 Mg PO HS Amlodipine Besylate 5 Mg Tablet 5 Mg PO DAILY Bupropion HCl 75 Mg Tablet 75 Mg PO DAILY Carvedilol 6.25 Mg Tablet 6.25 Mg PO DAILY Isosorbide Mononitrate ER (Isosorbide Mononitrate) 30 Mg Tab.er.24h 30 Mg PO DAILY Assessment/Pt Instructions PCP 1 week Discharge Planning: <30 minutes discharge planning Discharge Instructions Discharge Diet: No Restrictions Discharge Physical Examination Vital Signs Vital Signs Date Time Temp Pulse Resp B/P (MAP) Pulse Ox O2 Delivery O2 Flow Rate FiO2 10/31/21 08:00 98 Nasal Cannula 3.00 10/31/21 07:49 36.2 71 16 155/82 (106) 10/29/21 23:04 36 General Appearance: No Apparent Distress, WD/WN, Chronically ill Respiratory: Lungs Clear Cardiovascular: Regular Rate, Rhythm Neurologic/Psychiatric: Alert, Oriented x3, No Motor/Sensory Deficits, Normal Mood/Affect Allergies: Coded Allergies: budesonide (Verified Allergy, Severe, angioedema, 12/06/18) formoterol (Verified Allergy, Severe, angioedema, 12/06/18) tetanus toxoid, adsorbed (Verified Allergy, Mild, hives, 12/06/18) DOROTA Inhibitors (Verified Allergy, Unknown, Angioedema, 12/06/18) Discharge Summary Date of Admission October 29, 2021 at 21:39 Date of Discharge Discharge Date: October 31, 2021 Admission Diagnosis Chest pain Discharge Diagnosis (1) Chest pain Status: Acute (2) CAD (coronary artery disease) Status: Acute (3) Anxiety and depression Status: Acute Clinical Quality Measures AMI/AHF: ASA po Prior to arrival: Yes OUMAR POWERS DO October 31, 2021 08:37
[2021-10-31] MEDS: CLOPIDOGREL 75 MG (PLAVIX) TABLET PO SCH (08:42)
[2021-10-31] MEDS: ASPIRIN E.C. 81 MG (ECOTRIN) TAB PO SCH (08:42)
[2021-10-31] MEDS: METOCLOPRAMIDE 10 MG (REGLAN) TAB PO SCH ×2 (08:42→12:07)
[2021-10-31] MEDS: RANOLAZINE ER 500 MG TAB (RANEXA) PO SCH (08:42)
[2021-10-31] MEDS: ALPRAZolam 0.5 MG (XANAX) TAB PO SCH (08:43)
[2021-10-31] MEDS ORDERED: SERTRALINE 100 MG (ZOLOFT) TAB PO SCH (09:00)
[2021-10-31] MEDS ORDERED: buPROPion 75 MG (WELLBUTRIN) TAB PO SCH (09:00)
--- NOTE | 2021-10-31 09:12 | Cardiology Progress Note ---
Subjective Date Seen by Provider: October 31, 2021 Time Seen by Provider: 09:11 Subjective/Events-last exam Patient was seen at bedside, still having some nausea. No chest pain. Review of Systems General: No Chills, No Night Sweats, No Fatigue, No Malaise, No Appetite, No Other HEENT: No Head Aches, No Visual Changes, No Eye Pain, No Ear Pain, No Dysphasia, No Sinus Congestion, No Post Nasal Drip, No Sore Throat, No Other Pulmonary: Dyspnea; No Cough, No Pleuritic Chest Pain, No Other Cardiovascular: Chest Pain; No: Palpitations, Orthopnea, Paroxysmal Noc. Dyspnea, Edema, Lt Headedness, Other Objective-Cardiology Exam Last Set of Vital Signs Vital Signs 10/29/21 10/31/21 10/31/21 23:04 07:49 08:00 Temp 36.2 Pulse 71 Resp 16 B/P (MAP) 155/82 (106) Pulse Ox 98 O2 Delivery Nasal Cannula O2 Flow Rate 3.00 FiO2 36 I&O Intake and Output 10/31/21 00:00 Intake Total 1450 ml Output Total 1325 ml Balance 125 ml Intake Oral 1450 ml Output Urine Total 1325 ml General: Alert, Oriented X3, Cooperative HEENT: Atraumatic, PERRLA Neck: Supple, No JVD, No Thyromegaly Lungs: Clear to Auscultation, Normal Air Movement Heart: Regular Rate, Normal S1, Normal S2, No Murmurs Abdomen: Normal Bowel Sounds, Soft, No Tenderness, No Hepatosplenomegaly, No Masses Extremities: No Clubbing, No Cyanosis, No Edema, Normal Pulses, No Tenderness/Swelling Skin: No Rashes, No Breakdown, No Significant Lesion Neuro: Normal Gait, Normal Speech, Strength at 5/5 X4 Ext, Normal Tone, Sensation Intact Psych/Mental Status: Mental Status NL, Mood NL Results Lab Laboratory Tests 10/31/21 05:15 A/P-Cardiology Admission Diagnosis Chest pain Dizziness Coronary artery disease Hypertension Assessment/Plan Chest pain, history of chronic stable angina. History of multiple hospitalization with recurrent chest pain. I recommend conservative management. Continue to monitor, plan to evaluate 2D echo Dizziness and lightheadedness, probably labile hypertension. Has underlying COPD and hypoxemia. Reporting improvement in the dizziness Nausea. No vomiting, loss of appetite. Managed by primary care physician Coronary artery disease, Cardiac catheterization was done in September 2014 showing total occlusion of the LAD at its midportion with occluded vein graft to the LAD did not fill with collaterals on this study, patent stent in the proximal LAD to the diagonal artery, mild disease in the circumflex and right coronary artery, prominent left ventricle with EF 45 percent. Repeat cardiac catheterization was done in March 2018 showing total occlusion of the mid LAD and the vein graft to the LAD, patent stent in the proximal LAD that was providing flow to the first diagonal branch, mild disease in the circumflex artery and right coronary artery, the apex of the left ventricular still akinetic with ejection fraction 45-50 percent. Coronary arteriotomy deemed inoperable. Conservative management is recommended. Peripheral edema, resolved, continue to monitor History of congestive heart failure with chronic compensated left ventricular systolic dysfunction, last echocardiogram done in June 2020 showed normal left ventricular systolic function with ejection fraction 55-65 percent with pulmonary hypertension PA pressure of 45 mmHg. Peripheral arterial disease, history of stent to the left lower extremity, having pain in his lower extremity, seen and evaluated with heart and vascular care, had angiogram and balloon angioplasty with angioscore cutting balloon 5x40 mm to the left external iliac then stenting to the left external iliac artery with 6x50 Viabahn postdilated with a Brent balloon. Done by Dr. Jackson. He has stopped following with heart and vascular care COPD, oxygen dependent. Hypertension, restart home medication monitor blood pressure Hyperlipidemia, continue to monitor lipids Tobaccoism, expressed that he has stopped smoking, encouraged to continue with smoking cessation Carotid stenosis, s had a CT angiogram reported as severe stenosis in the right carotid artery 70 to 80%, no significant stenosis on the left. Patient had right carotid endarterectomy done in May 2021 in [facility]. Recovered well. JOSHUA CASTILLO MD October 31, 2021 09:12
[2021-10-31 11:00] VITALS: BP 111/59
[2021-10-31 11:37] VITALS: BP 111/59
--- NOTE | 2021-10-31 13:17 | CONSULTATION REPORT ---
DATE OF SERVICE: 10/31/2021 ATTENDING PRIMARY CARE PHYSICIAN: Dr. Stanford Hanks. ADMITTING PHYSICIAN: Dr. Nash. HISTORY OF PRESENT ILLNESS: The patient is a 66-year-old male known to us. He presented to the Emergency Department with chest pain and states that he did take a nitroglycerin which brought his chest pain down from 10 to 9. He also had reported that he took Ranexa and Imdur for his chronic angina; however, did not take his medications for about two days because he forgot to take them. The patient was admitted and had continued left chest pressure sensation. He was seen by cardiology and his previous cardiac catheterization from 2018 was reviewed and again was found to have significant coronary artery disease; however, medical management was recommended. The patient also does have a history of epigastric pain due to gastroesophageal reflux disease and did have several episodes of emesis. Since being admitted and placed on acid reducers, he has improved. He is scheduled to be discharged home today; however, we will have him follow up in office in approximately one week to schedule him for a followup EGD. PAST MEDICAL HISTORY: Hypertension, hypercholesterolemia, gastroesophageal reflux disease, history of diverticulosis, degenerative joint disease, coronary artery disease, history of schizophrenia, hypertension, hypercholesterolemia, history of deep vein thrombosis, history of myocardial infarction, peripheral vascular disease, history of stroke, COPD, history of pneumonia. PAST SURGICAL HISTORY: Left inguinal hernia repair, coronary artery bypass grafting, cardiac catheterization. ALLERGIES: BUDESONIDE FORMOTEROL, TETANUS TOXOID, DOROTA INHIBITOR. MEDICATIONS: Albuterol inhaler 1 puff q.4 hours p.r.n., amlodipine 5 mg daily, aripiprazole 30 mg daily, aspirin 81 mg daily, atorvastatin 80 mg daily, bupropion 75 mg daily, carvedilol 6.25 mg daily, Plavix 75 mg daily, fish oil 1200 mg daily, isosorbide mononitrate 30 mg daily, mirtazapine 30 mg daily, montelukast 10 mg daily, nitroglycerin 0.4 mg sublingual p.r.n., ranolazine 1000 mg b.i.d., sertraline 100 mg daily. SOCIAL HISTORY: History of heavy smoking 2 to 3 over 40 pack years, quit 2018. History of alcohol abuse; however, he reports he has not drunk in many years. VITAL SIGNS: Temperature 36.1, blood pressure 111/59, pulse 73, respirations 20, pulse ox 98% on 3 liters nasal cannula. REVIEW OF SYSTEMS: Well-nourished male currently in no acute distress. He is not experiencing any shortness of breath or difficulty breathing. No chest pain, palpitations, diaphoresis. History of gastroesophageal reflux disease with epigastric pain. Did have an episode of nausea and vomiting; however, none since being admitted. No hematemesis, no coffee ground emesis. No diarrhea or constipation, no red blood per rectum, no dark tarry stools. No fever or chills, no recent inadvertent weight loss. All other review of systems negative. PHYSICAL EXAMINATION: CHEST: Distant breath sounds and scattered wheezes bilaterally. HEART: Regular, no murmurs. EXTREMITIES: No lower extremity edema, negative Homans sign. HEENT: No scleral icterus. NECK: No cervical lymphadenopathy. ABDOMEN: Soft, nontender, nondistended. SKIN: Warm, dry. LABORATORY DATA: WBC 4.1, hemoglobin 9.3, hematocrit 31, platelets 116, BUN 11, creatinine 0.89. Liver function enzymes normal. ASSESSMENT AND PLAN: A 66-year-old male with angina secondary to due to coronary artery disease and likely low flow state. The recommendation by cardiology was to proceed with conservative medical management. This gentleman also does have a history of significant gastroesophageal reflux disease and did have episodes of nausea and vomiting and worsening reflux type of symptoms and we will proceed with scheduling him for an EGD as an outpatient. Job ID: [id number] DocumentID: [id number] Dictated Date: 10/31/2021 12:44:14 Slot Machine Key Person Date: 10/31/2021 13:16:46 Dictated By: TAMIKO IQBAL MD
[2021-10-31 15:39] VITALS: BP 133/64
--- NOTE | 2021-11-01 13:42 | Physician Query Clarification ---
PQ-Further Specificity Admission/Discharge Admission Date: October 29, 2021 at 21:39 Discharge Date: October 31, 2021 at 16:40 Dr. Nash, The medical record reflects the following clinical scenario: History/Risk Factors: CAD w/chronic angina, GERD, chronic systolic CHF, Chronic hypoxic respiratory failure Clinical Findings: chest pain Lt. chest down to Lt arm, diaphoresis, nausea, forgot to take his angina meds (Ranexa, Imdur) for past 2 days since placed on acid patient representative he has improved. Treatment: Ranexa, Nitrobid, IVP Zofran, PO Protonix Question: Can you further specify chest pain per the clinical indicators above? Please document a response in the Progress Notes or Discharge Summary. 1. CAD w/unstable angina 2. CAD w/stable angina 3. chest pain d/t GERD 4. noncardiac chest pain etiology undetermined 5. Other, with explanation of the clinical findings. 6. Clinically undetermined, no explanation for the clinical findings. PHYSICIAN RESPONSE Can you specify per above: 2 In responding to this query, please exercise your independent professional judgment. The purpose of this communication is to more accurately reflect the complexity of your patients condition. The fact that a question is asked does not imply that any particular answer is desired or expected. Thank you for your timely response to this clarification. Requestors name: Sanjeev THIS PHYSICIAN QUERY FORM IS A PERMANENT PART OF THE MEDICAL RECORD SANJEEV RICHTER November 01, 2021 13:42 OUMAR NASH DO November 01, 2021 15:10
== END 2021-10-31 16:40 | disposition home or self-care (01) | DRG 303 ==
LOC: EDUNIT# 19:14 → ER 19:17 → UNDOADMIN 21:39 → CSD 21:39 → UNDODISIN 10-31 16:40
PROVIDERS: ADMIT Internal Medicine; ATTEND Internal Medicine
DX: I25.119 Atherosclerotic heart disease of native coronary artery with unspecified angina pectoris (principal); I50.22 Chronic systolic (congestive) heart failure; J96.11 Chronic respiratory failure with hypoxia; I25.719 Atherosclerosis of autologous vein coronary artery bypass graft(s) with unspecified angina pectoris; J44.9 Chronic obstructive pulmonary disease, unspecified; I11.0 Hypertensive heart disease with heart failure; K21.9 Gastro-esophageal reflux disease without esophagitis; E78.00 Pure hypercholesterolemia, unspecified; E78.5 Hyperlipidemia, unspecified; I27.20 Pulmonary hypertension, unspecified; M19.91 Primary osteoarthritis, unspecified site; F41.9 Anxiety disorder, unspecified; F32.A Depression, unspecified; F20.9 Schizophrenia, unspecified; I65.21 Occlusion and stenosis of right carotid artery; Z87.891 Personal history of nicotine dependence; R11.0 Nausea; I25.2 Old myocardial infarction; Z87.01 Personal history of pneumonia (recurrent); Z86.718 Personal history of other venous thrombosis and embolism; Z99.81 Dependence on supplemental oxygen; Z95.5 Presence of coronary angioplasty implant and graft; Z95.1 Presence of aortocoronary bypass graft; Z95.820 Peripheral vascular angioplasty status with implants and grafts; Z82.49 Family history of ischemic heart disease and other diseases of the circulatory system; Z79.82 Long term (current) use of aspirin; Z88.7 Allergy status to serum and vaccine; Z88.8 Allergy status to other drugs, medicaments and biological substances
CPT/HCPCS: 36415; 71045; 80053; 80061; 82550; 82553; 83735; 83874; 83880; 84484; 85025; 85379; 85610; 85730; 93005; 93041; 93306; 94640; 94760

== ENCOUNTER 2021-11-07 10:58 | Outpatient (CLI) | payer MEDICARE, MEDICAID ==
[~2021-11-07] VITALS: Ht 172.7 cm; Wt 77.1 kg
[~2021-11-07 10:58] MED LIST changes: +MTC10T PO; +PANT40TA52 PO; +RANO500T3 PO; +SUCR1TAB PO
== END 2021-11-07 13:34 | disposition home or self-care (01) ==
LOC: PREOP 10:58
PROVIDERS: ATTEND Surgery
DX: Z01.818 Encounter for other preprocedural examination (principal)

== ENCOUNTER 2021-11-09 11:09 | Day surgery (SDC) | payer MEDICARE, MEDICAID ==
[~2021-11-09] VITALS: Ht 172.7 cm; Wt 77.1 kg
[2021-11-09 11:45] VITALS: BP 159/89
[2021-11-09] MEDS ORDERED: LACTATED RINGERS 1,000 ML IV STA (11:47)
[2021-11-09] MEDS ORDERED: HURRICAINE EXT TUBE (BENZOCAINE) XX PRN (12:00)
[2021-11-09] MEDS ORDERED: LIDOCAINE JELLY 2% 6 ML SYRINGE MM PRN (12:00)
--- NOTE | 2021-11-09 12:47 | Progress Note-Pre Operative ---
Pre-Operative Progress Note H&P Reviewed The H&P was reviewed, patient examined and no changes noted. Date Seen by Provider: Nov 09, 2021 Time Seen by Provider: 12:30 Date H&P Reviewed: Nov 09, 2021 Time H&P Reviewed: 12:30 Pre-Operative Diagnosis: TAMIKO FORMAN MD Nov 09, 2021 12:47
--- NOTE | 2021-11-09 12:48 | Discharge Inst-Surgical ---
D/C Lap Instructions-RASHEED Follow Up Activity as tolerated High Fiber Diet 25g or more per day Avoid Alcohol, Caffeine, Spicy [place]le[place]and and Acid foods. Drink 64 fluid oz or more of fluids per day. Symptoms to Report: Fever over 101 degree F, Nausea/Vomiting If any problems/questions: Contact your physician or go to Emergency Room TAMIKO IQBAL MD Nov 09, 2021 12:48
[2021-11-09] MEDS ORDERED: ONDANSETRON 4 MG (ZOFRAN) ORAL DISSOLVE TAB PO PRN (13:00)
[2021-11-09] MEDS ORDERED: ONDANSETRON 4 MG/2 ML (SDV) Z0FRAN IVP PRN (13:00)
[2021-11-09] MEDS ORDERED: proPOfol 200 MG/20 ML (DIPRIVAN) VIAL IV ONE (14:42)
[2021-11-09 15:08] VITALS: BP 152/77
--- NOTE | 2021-11-09 15:15 | Progress Note-Post Operative ---
Post-Operative Progess Note Surgeon (s)/Prop Worker (s) Surgeon TAMIKO IQBAL MD Prop Worker: none Pre-Operative Diagnosis GERD Post-Operative Diagnosis reflux esophagitis(grade B-C), small-mod HH(2.5cm), moderate gastritis with healed antral erosion. Procedure & Operative Findings Date of Procedure 11/09/21 Procedure Performed/Findings EGD with bx. Anesthesia Type mac Estimated Blood Loss Estimated blood loss (mL): minimal Specimens/Packing Specimens Removed ge jxn, antrum TAMIKO IQBAL MD Nov 09, 2021 15:15
--- NOTE | 2021-11-09 15:16 | Anesthesia-General Post-Op ---
MAC Patient Condition Mental Status/LOC: Same as Preop Cardiovascular: Satisfactory Nausea/Vomiting: Absent Respiratory: Satisfactory Pain: Controlled Complications: Absent Post Op Complications Complications None Follow Up Care/Instructions Patient Instructions None needed. Anesthesiology Discharge Order Discharge Order Patient is doing well, no complaints, stable vital signs, no apparent adverse anesthesia problems. No complications reported per nursing. DALIA SINGH DO Nov 09, 2021 15:16
[2021-11-09 15:25] VITALS: BP 160/81
--- NOTE | 2021-11-10 01:14 | OPERATIVE REPORT ---
DATE OF SERVICE: 11/09/2021 ATTENDING PRIMARY CARE PHYSICIAN: Stanford Hanks MD PREOPERATIVE DIAGNOSES: Anemia and chest pain. POSTOPERATIVE DIAGNOSES: Reflux esophagitis, Emanuel between grade B and C; small hiatal hernia, 2.5 cm in size, moderate to severe gastritis with a superficial erosion of the antrum. No active bleed. PROCEDURE: EGD with biopsy. SURGEON: Tamiko Iqbal MD ANESTHESIA: Monitored anesthesia care. ESTIMATED BLOOD LOSS: Minimal. FINDINGS: Same as postop diagnoses. DISPOSITION: The patient tolerated the procedure well. INDICATIONS: The patient is a 66-year-old male known to us. He presented to the Emergency Department with chest pain, took nitroglycerin and this did not help. 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 The patient states that he does have a history of gastroesophageal reflux disease and did opt for an outpatient EGD after his events of chest pain. DESCRIPTION OF PROCEDURE: The patient was brought to the endoscopy suite, laid in the left lateral decubitus position. After adequate IV pain and sedative medications and monitored anesthesia care, the mouthpiece was applied. The endoscope was placed in the mouth, visualizing the pharynx and hypopharyngeal region. Vocal cords, epiglottis and vallecula identified and appeared to be normal. The endoscope was gently intubated, the esophageal opening and esophagus insufflated. The endoscope was then advanced to the first, second and third portion of esophagus at the level of the GE junction, a reflux esophagitis, Emanuel between grade B and C identified. No ulcers or strictures identified in this region. A biopsy was taken with forceps with visualization of good hemostasis. The endoscope was then advanced in the stomach and endoscope retroflexed, visualizing a small to moderate size hiatal hernia approximately 2.5 cm in size. There was an antral erosion, which may have bled in the past; however, there was no active bleeding. A biopsy was taken of the antrum to rule out H. pylori with visualization of good hemostasis. The endoscope was then advanced to the pylorus and the first and second portion of the duodenum, which appeared normal. The endoscope was then slowly withdrawn while taking a second look and suctioning of residual air with no additional findings. The patient tolerated the procedure well. We will recommend continued medical management with his current therapy of Protonix 40 mg daily as well as the necessary lifestyle and dietary accommodation including small and more frequent meals, avoiding to eating at night as well as head elevation while lying supine. He also needs to avoid caffeinated beverages, spicy, greasy and acidic foods. We will have him continue with Protonix 40 mg daily as well. Job ID: [id number] DocumentID: [id number] Dictated Date: 11/09/2021 15:07:41 District Plant Engineer Date: 11/10/2021 01:13:43 Dictated By: TAMIKO IQBAL MD
== END 2021-11-09 15:55 | disposition home or self-care (01) ==
LOC: ENDO 11:09
PROVIDERS: ATTEND Surgery
DX: K21.00 Gastro-esophageal reflux disease with esophagitis, without bleeding (principal); K29.50 Unspecified chronic gastritis without bleeding; B96.81 Helicobacter pylori [H. pylori] as the cause of diseases classified elsewhere; K44.9 Diaphragmatic hernia without obstruction or gangrene; D64.9 Anemia, unspecified; K25.9 Gastric ulcer, unspecified as acute or chronic, without hemorrhage or perforation; J44.9 Chronic obstructive pulmonary disease, unspecified; I20.9 Angina pectoris, unspecified; Z79.899 Other long term (current) drug therapy; Z99.81 Dependence on supplemental oxygen; Z87.891 Personal history of nicotine dependence

== ENCOUNTER 2021-12-16 21:51 | Emergency (ER) | payer MEDICARE, MEDICAID ==
[2021-12-16] MEDS ORDERED: LACTATED RINGERS 1,000 ML IV ONE (22:00)
[2021-12-16] MEDS ORDERED: ONDANSETRON 4 MG/2 ML (SDV) Z0FRAN IVP ONE (22:00)
[2021-12-16 22:14] LABS: BASOPHILS % (AUTO) 0 % (0-10); EOSINOPHILS # (AUTO) 0.1 10^3/uL (0.0-0.3); EOSINOPHILS % (AUTO) 3 % (0-10); HEMATOCRIT 32 % (40-54); HEMOGLOBIN 9.6 g/dL (13.3-17.7); LYMPHOCYTES # (AUTO) 1.5 10^3/uL (1.0-4.0); LYMPHOCYTES % (AUTO) 27 % (12-44); MEAN CORPUSCULAR HEMOGLOBIN 29 pg (25-34); MEAN CORPUSCULAR HGB CONC 30 g/dL (32-36); MEAN CORPUSCULAR VOLUME 96 fL (80-99); MEAN PLATELET VOLUME 10.2 fL (9.0-12.2); MONOCYTES # (AUTO) 0.5 10^3/uL (0.0-1.0); MONOCYTES % (AUTO) 10 % (0-12); NEUTROPHILS # (AUTO) 3.4 10^3/uL (1.8-7.8); NEUTROPHILS % (AUTO) 60 % (42-75); PLATELET COUNT 150 10^3/uL (130-400); WHITE BLOOD COUNT 5.6 10^3/uL (4.3-11.0)
[2021-12-16 22:33] LABS: ALBUMIN 3.8 GM/DL (3.2-4.5)
[2021-12-16 22:34] LABS: POTASSIUM 3.8 MMOL/L (3.6-5.0)
[2021-12-16 22:35] LABS: CALCIUM 8.8 MG/DL (8.5-10.1)
[2021-12-16 22:36] LABS: TOTAL PROTEIN 6.6 GM/DL (6.4-8.2)
[2021-12-16 22:38] LABS: BILIRUBIN,TOTAL 0.4 MG/DL (0.1-1.0)
[2021-12-16 22:40] LABS: CREATININE SERUM 0.82 MG/DL (0.60-1.30)
[2021-12-16 23:19] LABS: BILIRUBIN,URINE NEGATIVE (NEGATIVE); CLARITY,URINE CLEAR; COLOR,URINE YELLOW; GLUCOSE, URINE (UA) NEGATIVE (NEGATIVE); KETONES,URINE NEGATIVE (NEGATIVE); LEUKOCYTE ESTERASE ,URINE NEGATIVE (NEGATIVE); NITRITE,URINE NEGATIVE (NEGATIVE); PH,URINE 6.5 (5-9); PROTEIN,URINE NEGATIVE (NEGATIVE)
[2021-12-16 23:23] LABS: BACTERIA,URINE NEGATIVE /HPF; RBC,URINE RARE /HPF; WBC,URINE RARE /HPF
--- NOTE | 2021-12-17 00:36 | ED Abdominal Pain ---
General Chief Complaint: Abdominal/GI Problems Stated Complaint: ABD PAIN Nursing Triage Note: TO ED VIA [facility] WITH C/O RIGHT SIDE ABD PAIN THAT STARTED YESTERDAY. Source of Information: Patient Allergies and Home Medications Allergies Coded Allergies: budesonide (Verified Allergy, Severe, angioedema, 12/06/18) formoterol (Verified Allergy, Severe, angioedema, 12/06/18) tetanus toxoid, adsorbed (Verified Allergy, Mild, hives, 12/06/18) DOROTA Inhibitors (Verified Allergy, Unknown, Angioedema, 12/06/18) Patient Home Medication List Albuterol Sulfate (Ventolin Hfa) 1 Puff Puff, 2 PUFF IH PRN PRN for SHORTNESS OF BREATH, (Reported) Entered as Reported by: GAVIN RUBIO on 03/18/18 07 Amlodipine Besylate (Amlodipine Besylate) 5 Mg Tablet, 5 MG PO DAILY, (Reported) Entered as Reported by: CELSO SZYMANSKI on 02/15/18 035 Aripiprazole (Aripiprazole) 30 Mg Tablet, 30 MG PO DAILY, (Reported) Entered as Reported by: JEFF LEWIS on 06/29/20 1249 Aspirin (Aspirin) 81 Mg Tab.chew, 81 MG PO DAILY, (Reported) Entered as Reported by: JEFF LEWIS on 05/01/20 1344 Atorvastatin Calcium (Atorvastatin Calcium) 80 Mg Tablet, 80 MG PO DAILY, (Reported) Entered as Reported by: GAVIN RUBIO on 03/18/18 0737 Bupropion HCl (Bupropion HCl) 75 Mg Tablet, 75 MG PO DAILY, (Reported) Entered as Reported by: CELSO SZYMANSKI on 02/15/18 0350 Carvedilol (Carvedilol) 6.25 Mg Tablet, 6.25 MG PO DAILY, (Reported) Entered as Reported by: CELSO MARLOW on 07/25/17 1535 Clopidogrel Bisulfate (Clopidogrel) 75 Mg Tablet, 75 MG PO DAILY, (Reported) Entered as Reported by: JEFF LEWIS on 11/08/19 1527 Dicyclomine HCl (Dicyclomine HCl) 20 Mg Tablet, 20 MG PO Q6H Prescribed by: DEBBIE ESPINOSA on 12/17/21 0105 Fish Oil/Dha/Epa (Fish Oil 1,200 mg Fish Oil) 1 Each Capsule, 1 EACH PO DAILY, (Reported) Entered as Reported by: JEFF LEWIS on 06/29/20 1251 Isosorbide Mononitrate (Isosorbide Mononitrate ER) 30 Mg Tab.er.24h, 30 MG PO DAILY, (Reported) Entered as Reported by: PASHA GALEANA on 07/25/16 0945 Metoclopramide HCl (Metoclopramide HCl) 10 Mg Tablet, 10 MG PO ACHS Prescribed by: OUMAR POWERS on 10/31/21 0835 Mirtazapine (Mirtazapine) 30 Mg Tablet, 30 MG PO HS, (Reported) Entered as Reported by: CELSO SZYMANSKI on 02/15/18 0350 Montelukast Sodium (Montelukast Sodium) 10 Mg Tablet, 10 MG PO DAILY, (Reported) Entered as Reported by: JEFF LEWIS on 06/29/20 1249 Nitroglycerin (Nitroglycerin) 0.4 Mg Tab.subl, 0.4 MG SL UD PRN for CHEST PAIN Prescribed by: JUAREZ TOLENTINO on 08/19/21 1013 Ondansetron (Ondansetron Odt) 4 Mg Tab.rapdis, 4 MG PO Q4H Prescribed by: DEBBIE ESPINOSA on 12/17/21 0105 Pantoprazole Sodium (Pantoprazole Sodium) 40 Mg Tablet.dr, 40 MG PO DAILY@0700 Prescribed by: OUMAR POWERS on 10/31/21 0835 Ranolazine (Ranexa) 500 Mg Tab.er.12h, 1,000 MG PO BID Prescribed by: OUMAR POWERS on 10/31/21 0835 Sertraline HCl (Sertraline HCl) 100 Mg Tablet, 200 MG PO DAILY, (Reported) Entered as Reported by: JEFF LEWIS on 11/08/19 1527 Sucralfate (Sucralfate) 1 Gram Tablet, 1 GM PO AC Prescribed by: OUMAR POWERS on 10/31/21 0835 Past Tldyfqd-Lddzyf-Ejdtou Hx Patient Social History Smoking Status: Former Smoker Immunizations Up To Date Tetanus Booster (TDap): Unknown PED Vaccines UTD: No First/Initial COVID19 Vaccinat: 2020 Second COVID19 Vaccination Guillermo: 2020 Third COVID19 Vaccination Date: 2020 Seasonal Allergies Seasonal Allergies: No Past Medical History Surgery/Hospitalization HX: [place] 2005- bypass and stenting, COPD, HTN, cateract August 2021 Surgeries: Yes (LEFT INGUINAL HERNIA;CABG WITH STENTS IN HEART AND LEG, R carotid endartect) Abdominal, Cardiac, CABG, Coronary Stent, Tonsillectomy, Vascular Surgery Respiratory: Yes (WEARS O2 AT 5L/NC CONTINUOUSLY. RUL PULMONARY NODULE) Pneumonia, Chronic Bronchitis, COPD Currently Using CPAP: No Currently Using BIPAP: No Cardiac: Yes (STENT X1/ANGIO L EXT ILIAC ART;CABG/STENT X4;CAROTID DZ;CHF;CARDIAC ARREST) Coronary Artery Disease, Deep Vein Thrombosis, Heart Attack, High Cholesterol, Hypertension, Peripheral Vascular Neurological: Yes Stroke Reproductive Disorders: No Sexually Transmitted Disease: No HIV/AIDS: No Genitourinary: No Gastrointestinal: Yes Abdominal Hernia, Gastroesophageal Reflux, Diverticulosis, Ulcer Musculoskeletal: Yes Degenerate Disk Disease, Arthritis, Chronic Back Pain Endocrine: No HEENT: No Loss of Vision: Denies Hearing Impairment: Denies Cancer: No Psychosocial: Yes Sleep Difficulties, Anxiety, Schizophrenia, Depression Integumentary: No Blood Disorders: No Adverse Reaction/Blood Tranf: No Family Medical History Diabetes mellitus 19 MOTHER FH: heart disease 19 FATHER Heart Disease, Diabetes SOCIAL HX: -HX OF ALCOHOL ABUSE--CLAIMS HE QUIT YEARS AGO -DENIES DRUG USE -SMOKED 2-3 PPD--QUIT 2017 PSH: -CABG--1 VESSEL BYPASS -CARDIAC CATHS AND STENTS X 4, WITH ANGIOPLASTIES--LAST CARDIAC CATH 03/2018--PATENT STENT TO PROXIMAL LAD TO FIRST DIAGONAL, COMPLETE OCCLUSION OF MID LAD AND TO VEIN GRAFT TO LAD; EF 45-50%--NO INTERVENTION DONE AT THAT TIME AND FINDINGS WERE THE SAME THOSE FOUND ON CARDIAC CATH IN 2014 -ANGIOPLASTY AND STENT X 1 TO LEFT LEG/EXTERNAL ILIAC ARTERY 02/2017 -LEFT INGUINAL HERNIA REPAIR -TONSILLECTOMY ADDITIONAL PMH: -HX OF CARDIAC ARREST -CAROTID DISEASE--SEVERE ON RIGHT -RBBB ; LAFB Physical Exam Vital Signs Vital Signs - First Documented 12/16/21 21:52 Temp 36.0 Pulse 79 Resp 16 B/P (MAP) 145/71 (95) Pulse Ox 99 O2 Delivery Nasal Cannula O2 Flow Rate 5.00 Capillary Refill : Less Than 3 Seconds Height/Weight/BMI Height: 5'8.00" Weight: 174lbs. 0.0oz. 78.082173fx; 25.85 BMI Method:Stated Progress/Results/Core Measures Results/Orders Lab Results Laboratory Tests Test 12/16/21 22:05 12/16/21 23:10 Range/Units White Blood Count 5.6 4.3-11.0 10^3/uL Red Blood Count 3.37 L 4.30-5.52 10^6/uL Hemoglobin 9.6 L 13.3-17.7 g/dL Hematocrit 32 L 40-54 % Mean Corpuscular Volume 96 80-99 fL Mean Corpuscular Hemoglobin 29 25-34 pg Mean Corpuscular Hemoglobin Concent 30 L 32-36 g/dL Red Cell Distribution Width 12.8 10.0-14.5 % Platelet Count 150 130-400 10^3/uL Mean Platelet Volume 10.2 9.0-12.2 fL Immature Granulocyte % (Auto) 0 % Neutrophils (%) (Auto) 60 42-75 % Lymphocytes (%) (Auto) 27 12-44 % Monocytes (%) (Auto) 10 0-12 % Eosinophils (%) (Auto) 3 0-10 % Basophils (%) (Auto) 0 0-10 % Neutrophils # (Auto) 3.4 1.8-7.8 10^3/uL Lymphocytes # (Auto) 1.5 1.0-4.0 10^3/uL Monocytes # (Auto) 0.5 0.0-1.0 10^3/uL Eosinophils # (Auto) 0.1 0.0-0.3 10^3/uL Basophils # (Auto) 0.0 0.0-0.1 10^3/uL Immature Granulocyte # (Auto) 0.0 0.0-0.1 10^3/uL Sodium Level 143 135-145 MMOL/L Potassium Level 3.8 3.6-5.0 MMOL/L Chloride Level 96 L 98-107 MMOL/L Carbon Dioxide Level 35 H 21-32 MMOL/L Anion Gap 12 5-14 MMOL/L Blood Urea Nitrogen 9 7-18 MG/DL Creatinine 0.82 0.60-1.30 MG/DL Estimat Glomerular Filtration Rate 97 BUN/Creatinine Ratio 11 Glucose Level 125 H 70-105 MG/DL Calcium Level 8.8 8.5-10.1 MG/DL Corrected Calcium 9.0 8.5-10.1 MG/DL Total Bilirubin 0.4 0.1-1.0 MG/DL Aspartate Amino Transf (AST/SGOT) 27 5-34 U/L Alanine Aminotransferase (ALT/SGPT) 29 0-55 U/L Alkaline Phosphatase 87 40-136 U/L Total Protein 6.6 6.4-8.2 GM/DL Albumin 3.8 3.2-4.5 GM/DL Amylase Level 62 25-125 U/L Lipase 51 8-78 U/L Urine Color YELLOW Urine Clarity CLEAR Urine pH 6.5 5-9 Urine Specific Warren <=1.005 1.016-1.022 Urine Protein NEGATIVE NEGATIVE Urine Glucose (UA) NEGATIVE NEGATIVE Urine Ketones NEGATIVE NEGATIVE Urine Nitrite NEGATIVE NEGATIVE Urine Bilirubin NEGATIVE NEGATIVE Urine Urobilinogen 0.2 < = 1.0 MG/DL Urine Leukocyte Esterase NEGATIVE NEGATIVE Urine RBC (Auto) NEGATIVE NEGATIVE Urine RBC RARE /HPF Urine WBC RARE /HPF Urine Squamous Epithelial Cells NONE /HPF Urine Renal Epithelial Cells NONE /HPF Urine Crystals NONE /LPF Urine Bacteria NEGATIVE /HPF Urine Casts NONE /LPF Urine Mucus NEGATIVE /LPF Urine Culture Indicated NO My Orders Orders - DEBBIE ESPINOSA DO Ed Iv/Invasive Line Start (12/16/21 21:59) Monitor-Rhythm Ecg Trace Only (12/16/21 21:59) Ct Abd/Pelv W (Appendicitis) (12/16/21 21:59) Amylase (12/16/21 21:59) Cbc With Automated Diff (12/16/21 21:59) Comprehensive Metabolic Panel (12/16/21 21:59) Lipase (12/16/21 21:59) Ua Culture If Indicated (12/16/21 21:59) Ed Iv/Invasive Line Start (12/16/21 21:59) Lactated Ringers (Lr 1000 Ml Iv Solution (12/16/21 22:00) Ondansetron Injection (Zofran Injectio (12/16/21 22:00) Ketorolac Injection (Toradol Injection) (12/17/21 01:15) Medications Given in ED Current Medications Medications Dose Ordered Sig/Shira Route Start Time Stop Time Status Last Admin Dose Admin Ketorolac Tromethamine 30 mg ONCE ONCE IVP 12/17/21 01:15 12/17/21 01:16 DC 12/17/21 01:24 30 MG Lactated Ringer's 1,000 ml @ 0 mls/hr Q0M ONCE IV 12/16/21 22:00 12/16/21 22:01 DC 12/16/21 22:11 999 MLS/HR Ondansetron HCl 4 mg ONCE ONCE IVP 12/16/21 22:00 12/16/21 22:01 DC 12/16/21 22:11 4 MG Vital Signs/I&O 12/16/21 21:52 Temp 36.0 Pulse 79 Resp 16 B/P (MAP) 145/71 (95) Pulse Ox 99 O2 Delivery Nasal Cannula O2 Flow Rate 5.00 12/17/21 00:00 Intake Total 1000 ml Balance 1000 ml Blood Pressure Mean: 95 Progress Progress Note : Progress Note MARKED DELAY IN OBTAINING CT AND THEN MARKED DELAY IN OBTAINING CT RESULTS Departure Impression Primary Impression: RLQ abdominal pain Additional Impression: Nausea and vomiting Disposition: HOME, SELF-CARE Condition: Stable Departure-Patient Inst. Decision time for Depature: 01:03 Referrals: SONYA FERNANDEZ MD (PCP) Primary Care Physician Patient Instructions: Abdominal Pain, Adult ED, Nausea and Vomiting, Adult (DC) Add. Discharge Instructions: CLEAR LIQUIDS--WATER, BROTH, JELLO, GATORADE TOMORROW IF YOU ARE FEELING BETTER, ADD BRATS DIET TO CLEAR LIQUIDS--BANANAS, RICE, APPLESAUCE, TOAST, SALTINES FOLLOW UP WITH YOUR DR IN 1-2 DAYS IF NO BETTER All discharge instructions reviewed with patient and/or family. Voiced understanding. Scripts Dicyclomine HCl (Dicyclomine HCl) 20 Mg Tablet 20 MG PO Q6H for Abdominal Pain, #20 TAB Prov: DEBBIE ESPINOSA DO 12/17/21 Ondansetron (Ondansetron Odt) 4 Mg Tab.rapdis 4 MG PO Q4H for Nausea/Vomiting, #10 TAB Prov: DEBBIE ESPINOSA DO 12/17/21 DEBBIE ESPINOSA DO Dec 17, 2021 00:35
[2021-12-17] MEDS ORDERED: DICY20TA PO (01:05)
[2021-12-17] MEDS ORDERED: ONDA4TAB11 PO (01:05)
[2021-12-17] MEDS ORDERED: KETOROLAC 30 MG/ML VIAL IVP ONE (01:15)
[2021-12-17 01:30] VITALS: BP 126/73
[2021-12-17] MEDS ORDERED: IOHEXOL 350 MG/ML 100 ML (OMNIPAQUE 350) VIAL IV ONE (02:30)
[2021-12-17] MEDS ORDERED: NS 100 ML (IVPB) BAG IV ONE (02:30)
[2021-12-17] MEDS ORDERED: HOLD METFORMIN - RECEIVED CONTRAST 20 ML VIAL IV SCH (02:30)
--- NOTE | 2021-12-17 07:35 | Diagnostic Imaging Report ---
PROCEDURE: CT abdomen and pelvis with contrast, rule out appendicitis. TECHNIQUE: Multiple contiguous axial images were obtained through the abdomen and pelvis after the administration of intravenous contrast. All CT scans use one or more of the following dose optimizing techniques: automated exposure control, MA and/or KvP adjustment based on patient size and exam type or iterative reconstruction. INDICATION: Pain. Compared with study 10/21/2020. FINDINGS: There is no bowel, biliary or urinary tract obstruction. No focal inflammatory process found. There is some diverticular disease of the colon but no focal diverticulitis. There is nonaneurysmal atherosclerotic vascular calcifications and left-sided ileal vascular stenting. No ascites, abscess, hematoma or acute fluid collection. No pneumatosis. No free gas. IMPRESSION: No acute appearing abnormality. Agree with preliminary. Dictated by: Dictated on workstation # [id number]
== END 2021-12-17 01:30 | disposition home or self-care (01) ==
LOC: EDUNIT# 21:51 → ER 21:52
DX: R10.31 Right lower quadrant pain (principal); R11.2 Nausea with vomiting, unspecified; J44.9 Chronic obstructive pulmonary disease, unspecified; Z99.81 Dependence on supplemental oxygen; Z28.310 Unvaccinated for COVID-19
CPT/HCPCS: 36415; 74177; 80053; 81000; 82150; 83690; 85025; 93041

== ENCOUNTER 2022-01-19 22:25 | Observation (INO) | payer MEDICARE, MEDICAID ==
[~2022-01-19] VITALS: Ht 172.7 cm; Wt 72.7 kg
[~2022-01-19 22:25] MED LIST changes: +DICY20TA PO; +ONDA4TAB11 PO
[2022-01-19] MEDS ORDERED: FAMOTIDINE 20 MG (PEPCID) TABLET PO STA (22:38)
[2022-01-19] MEDS ORDERED: LIDOCAINE 2% VISCOUS 15 ML UDC PO ONE (22:45)
[2022-01-19] MEDS ORDERED: ANTACID SUSP 30 ML UDC (MYLANTA) PO ONE (22:45)
--- NOTE | 2022-01-19 22:45 | ED Chest Pain ---
General Chief Complaint: Chest Pain Stated Complaint: CP,ABD PAIN Source: patient Exam Limitations: no limitations History of Present Illness Date Seen by Provider: Jan 19, 2022 Time Seen by Provider: 22:29 Initial Comments Pt to ER by EMS with chief complaint of chest pain starting little before 9, 40 minutes ago. He states he got dizzy and they laid him down on the ground. He has a history of chronic chest pain, angina and history of one-vessel bypass. He is known to Dr. Carrion and follows with Dr. Hanks for primary care. He has not missed any medications or had any new changes in medicines. He is not having any fevers body aches nausea vomiting diarrhea cough shortness of air. He does endorse orthopnea but he says this is not new. EMS remarks he had an unremarkable EKG without acute ST changes. He had 324 mg of aspirin to chew and swallow from EMS and they gave him 2 doses of nitroglycerin which did nothing for his chest pain. He was then given 2 doses of fentanyl 50 mcg each. He states this did nothing for his pain and asked for something else. EMS states they are familiar with him as he has brought in frequently for chest pain. He has a history of COPD on 5 L by nasal cannula. He is not having any shortness of air or wheezing tonight. Cardiac catheterization [address] Carrion with an EF of 45 to 50%. Mild disease, conservative management recommended. History of heart failure with an echocardiogram in 2020 demonstrating EF 56 to 65%. History of peripheral arterial disease. Has had balloon angioplasties and a stent in the left external iliac artery. History of hypertension, COPD on oxygen, hyperlipidemia and carotid stenosis. Allergies and Home Medications Allergies Coded Allergies: budesonide (Verified Allergy, Severe, angioedema, 12/06/18) formoterol (Verified Allergy, Severe, angioedema, 12/06/18) tetanus toxoid, adsorbed (Verified Allergy, Mild, hives, 12/06/18) DOROTA Inhibitors (Verified Allergy, Unknown, Angioedema, 12/06/18) Patient Home Medication List Home Medication List Reviewed: Yes Albuterol Sulfate (Ventolin Hfa) 1 Puff Puff, 2 PUFF IH PRN PRN for SHORTNESS OF BREATH, (Reported) Entered as Reported by: GAVIN RUBIO on 03/18/18 0737 Amlodipine Besylate (Amlodipine Besylate) 5 Mg Tablet, 5 MG PO DAILY, (Reported) Entered as Reported by: CELSO SZYMANSKI on 02/15/18 0350 Aripiprazole (Aripiprazole) 30 Mg Tablet, 30 MG PO DAILY, (Reported) Entered as Reported by: JEFF LEWIS on 06/29/20 1249 Aspirin (Aspirin) 81 Mg Tab.chew, 81 MG PO DAILY, (Reported) Entered as Reported by: JEFF LEWIS on 05/01/20 1344 Atorvastatin Calcium (Atorvastatin Calcium) 80 Mg Tablet, 80 MG PO DAILY, (Reported) Entered as Reported by: GAVIN RUBIO on 03/18/18 0737 Bupropion HCl (Bupropion HCl) 75 Mg Tablet, 75 MG PO DAILY, (Reported) Entered as Reported by: CELSO SZYMANSKI on 02/15/18 0350 Carvedilol (Carvedilol) 6.25 Mg Tablet, 6.25 MG PO DAILY, (Reported) Entered as Reported by: CELSO MARLOW on 07/25/17 1535 Clopidogrel Bisulfate (Clopidogrel) 75 Mg Tablet, 75 MG PO DAILY, (Reported) Entered as Reported by: JEFF LEWIS on 11/08/19 1527 Dicyclomine HCl (Dicyclomine HCl) 20 Mg Tablet, 20 MG PO Q6H Prescribed by: DEBBIE ESPINOSA on 12/17/21 0105 Fish Oil/Dha/Epa (Fish Oil 1,200 mg Fish Oil) 1 Each Capsule, 1 EACH PO DAILY, (Reported) Entered as Reported by: JEFF LEWIS on 06/29/20 1251 Isosorbide Mononitrate (Isosorbide Mononitrate ER) 30 Mg Tab.er.24h, 30 MG PO DAILY, (Reported) Entered as Reported by: PASHA GALEANA on 07/25/16 0945 Metoclopramide HCl (Metoclopramide HCl) 10 Mg Tablet, 10 MG PO ACHS Prescribed by: OUMAR POWERS on 10/31/21 0835 Mirtazapine (Mirtazapine) 30 Mg Tablet, 30 MG PO HS, (Reported) Entered as Reported by: CELSO SZYMANSKI on 02/15/18 0350 Montelukast Sodium (Montelukast Sodium) 10 Mg Tablet, 10 MG PO DAILY, (Reported) Entered as Reported by: JEFF LEWIS on 06/29/20 1249 Nitroglycerin (Nitroglycerin) 0.4 Mg Tab.subl, 0.4 MG SL UD PRN for CHEST PAIN Prescribed by: JUAREZ TOLENTINO on 08/19/21 1013 Ondansetron (Ondansetron Odt) 4 Mg Tab.rapdis, 4 MG PO Q4H Prescribed by: DEBBIE ESPINOSA on 12/17/21 0105 Pantoprazole Sodium (Pantoprazole Sodium) 40 Mg Tablet.dr, 40 MG PO DAILY@0700 Prescribed by: OUMAR POWERS on 10/31/21 0835 Ranolazine (Ranexa) 500 Mg Tab.er.12h, 1,000 MG PO BID Prescribed by: OUMAR POWERS on 10/31/21 0835 Sertraline HCl (Sertraline HCl) 100 Mg Tablet, 200 MG PO DAILY, (Reported) Entered as Reported by: JEFF LEWIS on 11/08/19 1527 Sucralfate (Sucralfate) 1 Gram Tablet, 1 GM PO AC Prescribed by: OUMAR POWERS on 10/31/21 0835 Review of Systems Review of Systems Constitutional: No chills, No diaphoresis EENTM: No Blurred Vision, No Double Vision Respiratory: Denies Cough, Denies Shortness of Air Cardiovascular: See HPI, Chest Pain; Denies Lightheadedness Gastrointestinal: Denies Constipated, Denies Diarrhea Genitourinary: Denies Burning, Denies Discharge Musculoskeletal: No back pain, No joint pain All Other Systems Reviewed Negative Unless Noted: Yes Past Lemndwb-Tmdimf-Syqktk Hx Patient Social History Tobacco Use?: No Use of E-Cig and/or Vaping dev: No Substance use?: No Immunizations Up To Date Tetanus Booster (TDap): Unknown PED Vaccines UTD: No First/Initial COVID19 Vaccinat: 2020 Second COVID19 Vaccination Guillermo: 2020 Third COVID19 Vaccination Date: 2020 Seasonal Allergies Seasonal Allergies: No Past Medical History Surgery/Hospitalization HX: [place] 2005- bypass and stenting, COPD, HTN, cateract August 2021 Surgeries: Yes (LEFT INGUINAL HERNIA;CABG WITH STENTS IN HEART AND LEG, R carotid endartect) Abdominal, Cardiac, CABG, Coronary Stent, Tonsillectomy, Vascular Surgery Respiratory: Yes (WEARS O2 AT 5L/NC CONTINUOUSLY. RUL PULMONARY NODULE) Pneumonia, Chronic Bronchitis, COPD Currently Using CPAP: No Currently Using BIPAP: No Cardiac: Yes (STENT X1/ANGIO L EXT ILIAC ART;CABG/STENT X4;CAROTID DZ;CHF; CARDIAC ARREST) Coronary Artery Disease, Deep Vein Thrombosis, Heart Attack, High Cholesterol, Hypertension, Peripheral Vascular Neurological: Yes Stroke Reproductive Disorders: No Sexually Transmitted Disease: No HIV/AIDS: No Genitourinary: No Gastrointestinal: Yes Abdominal Hernia, Gastroesophageal Reflux, Diverticulosis, Ulcer Musculoskeletal: Yes Degenerate Disk Disease, Arthritis, Chronic Back Pain Endocrine: No HEENT: No Loss of Vision: Denies Hearing Impairment: Denies Cancer: No Psychosocial: Yes Sleep Difficulties, Anxiety, Schizophrenia, Depression Integumentary: No Blood Disorders: No Adverse Reaction/Blood Tranf: No Family Medical History Diabetes mellitus 19 MOTHER FH: heart disease 19 FATHER Heart Disease, Diabetes SOCIAL HX: -HX OF ALCOHOL ABUSE--CLAIMS HE QUIT YEARS AGO -DENIES DRUG USE -SMOKED 2-3 PPD--QUIT 2017 PSH: -CABG--1 VESSEL BYPASS -CARDIAC CATHS AND STENTS X 4, WITH ANGIOPLASTIES--LAST CARDIAC CATH 03/2018--PATENT STENT TO PROXIMAL LAD TO FIRST DIAGONAL, COMPLETE OCCLUSION OF MID LAD AND TO VEIN GRAFT TO LAD; EF 45-50%--NO INTERVENTION DONE AT THAT TIME AND FINDINGS WERE THE SAME THOSE FOUND ON CARDIAC CATH IN 2014 -ANGIOPLASTY AND STENT X 1 TO LEFT LEG/EXTERNAL ILIAC ARTERY 02/2017 -LEFT INGUINAL HERNIA REPAIR -TONSILLECTOMY ADDITIONAL PMH: -HX OF CARDIAC ARREST -CAROTID DISEASE--SEVERE ON RIGHT -RBBB ; LAFB Physical Exam Vital Signs Vital Signs - First Documented 01/19/22 22:25 Temp 36.7 Pulse 90 Resp 20 B/P (MAP) 152/79 (103) Pulse Ox 97 O2 Delivery Nasal Cannula O2 Flow Rate 5.00 Capillary Refill : Height, Weight, BMI Height: 5'8.00" Weight: 174lbs. 0.0oz. 78.868369mc; 25.85 BMI Method:Stated General Appearance: No Apparent Distress, WD/WN HEENT: PERRL/EOMI, Pharynx Normal, Moist Mucous Membranes Neck: Full Range of Motion, Normal Inspection Respiratory: Lungs Clear, Normal Breath Sounds, No Accessory Muscle Use, No Respiratory Distress (99% on 5 lpm), Decreased Breath Sounds Cardiovascular: Regular Rate, Rhythm, No Edema, Normal Peripheral Pulses Gastrointestinal: Normal Bowel Sounds, Soft Extremity: Normal Capillary Refill, Normal Inspection, No Pedal Edema Neurologic/Psychiatric: Alert, Oriented x3, No Motor/Sensory Deficits Skin: Normal Color, Warm/Dry Progress/Results/Core Measures Results/Orders Lab Results Laboratory Tests Test 01/19/22 22:30 01/19/22 22:47 Range/Units Prothrombin Time 12.7 12.2-14.7 SEC INR Comment 0.9 0.8-1.4 Activated Partial Thromboplast Time 34 24-35 SEC Sodium Level 138 135-145 MMOL/L Potassium Level 4.2 3.6-5.0 MMOL/L Chloride Level 94 L 98-107 MMOL/L Carbon Dioxide Level 30 21-32 MMOL/L Anion Gap 14 5-14 MMOL/L Blood Urea Nitrogen 10 7-18 MG/DL Creatinine 0.87 0.60-1.30 MG/DL Estimat Glomerular Filtration Rate 95 BUN/Creatinine Ratio 11 Glucose Level 96 70-105 MG/DL Calcium Level 9.2 8.5-10.1 MG/DL Corrected Calcium 9.4 8.5-10.1 MG/DL Magnesium Level 1.8 1.6-2.4 MG/DL Total Bilirubin 0.5 0.1-1.0 MG/DL Aspartate Amino Transf (AST/SGOT) 19 5-34 U/L Alanine Aminotransferase (ALT/SGPT) 19 0-55 U/L Alkaline Phosphatase 92 40-136 U/L Myoglobin 61.9 10.0-92.0 NG/ML Troponin I < 0.028 <0.028 NG/ML Total Protein 6.7 6.4-8.2 GM/DL Albumin 3.8 3.2-4.5 GM/DL Lipase 23 8-78 U/L Serum Alcohol < 10 <10 MG/DL White Blood Count 5.6 4.3-11.0 10^3/uL Red Blood Count 3.30 L 4.30-5.52 10^6/uL Hemoglobin 9.3 L 13.3-17.7 g/dL Hematocrit 31 L 40-54 % Mean Corpuscular Volume 93 80-99 fL Mean Corpuscular Hemoglobin 28 25-34 pg Mean Corpuscular Hemoglobin Concent 30 L 32-36 g/dL Red Cell Distribution Width 12.9 10.0-14.5 % Platelet Count 155 130-400 10^3/uL Mean Platelet Volume 10.1 9.0-12.2 fL Immature Granulocyte % (Auto) 0 % Neutrophils (%) (Auto) 61 42-75 % Lymphocytes (%) (Auto) 28 12-44 % Monocytes (%) (Auto) 9 0-12 % Eosinophils (%) (Auto) 2 0-10 % Basophils (%) (Auto) 0 0-10 % Neutrophils # (Auto) 3.4 1.8-7.8 10^3/uL Lymphocytes # (Auto) 1.6 1.0-4.0 10^3/uL Monocytes # (Auto) 0.5 0.0-1.0 10^3/uL Eosinophils # (Auto) 0.1 0.0-0.3 10^3/uL Basophils # (Auto) 0.0 0.0-0.1 10^3/uL Immature Granulocyte # (Auto) 0.0 0.0-0.1 10^3/uL B-Type Natriuretic Peptide 16.7 <100.0 PG/ML My Orders Orders - CANDIDAKRISTIN Cbc With Automated Diff (01/19/22:) Magnesium (01/19/22:) Chest 1 View, Ap/Pa Only (01/19/22:32) Ekg Tracing (01/19/22:) Comprehensive Metabolic Panel (01/19/22:) Myoglobin Serum (01/19/22:) Protime With Inr (01/19/22:) Partial Thromboplastin Time (01/19/22:) O2 (01/19/22:) Monitor-Rhythm Ecg Trace Only (01/19/22:) Lipid Panel (01/20/22 06:00) Ed Iv/Invasive Line Start (01/19/22:) Lipase (01/19/22:) Bnp Moody (01/19/22:) Troponin I Negrita (01/19/22:) Lidocaine 2% Viscous 15 Ml (Xylocaine Vi (01/19/22 22:45) Famotidine Tablet (Pepcid Tablet) (01/19/22 22:38) Antacid Suspension (Mylanta Suspension (01/19/22 22:45) Alcohol (01/19/22 22:38) Medications Given in ED Current Medications Medications Dose Ordered Sig/Shira Route Start Time Stop Time Status Last Admin Dose Admin Al Hydrox/Mg Hydrox/Simethicone 30 ml ONCE ONCE PO 01/19/22 22:45 01/19/22 22:46 DC 01/19/22 23:24 30 ML Lidocaine HCl 15 ml ONCE ONCE PO 01/19/22 22:45 01/19/22 22:46 DC 01/19/22 23:24 15 ML Vital Signs/I&O 01/19/22 22:25 Temp 36.7 Pulse 90 Resp 20 B/P (MAP) 152/79 (103) Pulse Ox 97 O2 Delivery Nasal Cannula O2 Flow Rate 5.00 Progress Progress Note #1: Time: 22:48 Progress Note We will try a GI cocktail since opiates and nitroglycerin did not seem to help his pain. He is tender in his epigastric region. We will check a lipase and CMP. Progress Note #2: Time: 00:27 Progress Note Patient resting comfortably in bed. He is on his baseline for oxygen. He rates his pain as a 5 out of 10. The GI cocktail is the only medication so far tonight that has made any difference in his discomfort. Initial ECG Impression Date: Jan 19, 2022 Initial ECG Impression Time: 22:50 Initial ECG Rate: 86 Initial ECG Rhythm: Normal Sinus Initial ECG Intervals: Normal Initial ECG Impression: Normal, Nonspecific Changes Initial ECG Comparisson: Unchanged Comment Incomplete right bundle branch block. No clinically relevant ST elevation or depression. Normal sinus rhythm. Diagnostic Imaging Diagonstic Imaging: Xray Plain Films/CT/US/NM/MRI: chest Comments No acute cardiopulmonary process on 1 view chest x-ray. [facility], [place] NAME: [facility] REC#: [id number] PT STATUS: REG ER : 1955 PHYSICIAN: KRISTIN TIRADO MD ADMIT DATE: 01/19/22/ER Draft Date of Exam:01/19/22 CHEST 1 VIEW, AP/PA ONLY INDICATION: Chest pain AP view of the chest is obtained with comparison made to the study of 10/29/2021. There is continued elevation of the right hemidiaphragm. Surgical findings are noted in the mediastinum. There is no evidence of pneumothorax or consolidation. No adverse change is seen. IMPRESSION: Stable chest without acute abnormality. Dictated on workstation # [id number] Dict: 01/19/22 2310 Trans: 01/19/22 2314 [facility] [id number] Interpreted by: NIRMAL FABIAN MD Electronically signed by: Reviewed: Reviewed by Me Departure Communication (Admissions) Time/Spoke to Admitting Phy: 00:30 Discussed the case with Dr. Douglas who agrees to observe the patient with cardiac consultation. Time/Spoke to Consulting Phy: 00:29 Discussed the case with Dr. Carrion, cardiology who agrees with consultation and recommends morphine over fentanyl for pain. Impression Primary Impression: Unstable angina Disposition: ADMITTED INPATIENT Condition: Stable Admissions Decision to Admit Reason: Admit from ER (General) Decision to Admit/Date: Jan 20, 2022 Time/Decision to Admit Time: 00:27 Departure-Patient Inst. Referrals: SONYA HANKS MD (PCP/Family) Primary Care Physician KRISTIN TIRADO Jan 19, 2022 22:45
[2022-01-19 22:50] LABS: ALBUMIN 3.8 GM/DL (3.2-4.5); POTASSIUM 4.2 MMOL/L (3.6-5.0)
[2022-01-19 22:51] LABS: CALCIUM 9.2 MG/DL (8.5-10.1)
[2022-01-19 22:52] LABS: BASOPHILS % (AUTO) 0 % (0-10); EOSINOPHILS # (AUTO) 0.1 10^3/uL (0.0-0.3); EOSINOPHILS % (AUTO) 2 % (0-10); HEMATOCRIT 31 % (40-54); HEMOGLOBIN 9.3 g/dL (13.3-17.7); LYMPHOCYTES # (AUTO) 1.6 10^3/uL (1.0-4.0); LYMPHOCYTES % (AUTO) 28 % (12-44); MEAN CORPUSCULAR HEMOGLOBIN 28 pg (25-34); MEAN CORPUSCULAR HGB CONC 30 g/dL (32-36); MEAN CORPUSCULAR VOLUME 93 fL (80-99); MEAN PLATELET VOLUME 10.1 fL (9.0-12.2); MONOCYTES # (AUTO) 0.5 10^3/uL (0.0-1.0); MONOCYTES % (AUTO) 9 % (0-12); NEUTROPHILS # (AUTO) 3.4 10^3/uL (1.8-7.8); NEUTROPHILS % (AUTO) 61 % (42-75); PLATELET COUNT 155 10^3/uL (130-400); WHITE BLOOD COUNT 5.6 10^3/uL (4.3-11.0)
[2022-01-19 22:52] LABS: TOTAL PROTEIN 6.7 GM/DL (6.4-8.2)
[2022-01-19 22:54] LABS: BILIRUBIN,TOTAL 0.5 MG/DL (0.1-1.0)
[2022-01-19 22:56] LABS: CREATININE SERUM 0.87 MG/DL (0.60-1.30); INR 0.9 (0.8-1.4); PROTHROMBIN TIME PATIENT 12.7 SEC (12.2-14.7)
[2022-01-19 22:59] LABS: MAGNESIUM 1.8 MG/DL (1.6-2.4)
--- NOTE | 2022-01-19 23:15 | Diagnostic Imaging Report ---
INDICATION: Chest pain AP view of the chest is obtained with comparison made to the study of 10/29/2021. There is continued elevation of the right hemidiaphragm. Surgical findings are noted in the mediastinum. There is no evidence of pneumothorax or consolidation. No adverse change is seen. IMPRESSION: Stable chest without acute abnormality. Dictated by: Dictated on workstation # [id number]
[2022-01-20 02:16] VITALS: BP 153/78
[2022-01-20 02:24] VITALS: BP 153/78
[2022-01-20] MEDS ORDERED: morphine INJ 4 MG/ML 1 ML (VIAL/SYRINGE) IV PRN (02:45)
[2022-01-20] MEDS ORDERED: NITROGLYCERIN 0.4 MG SL TABS BTL 25'S SL PRN (02:45)
[2022-01-20] MEDS ORDERED: ONDANSETRON 4 MG/2 ML (SDV) Z0FRAN IVP PRN (02:45)
[2022-01-20] MEDS ORDERED: ANTACID SUSP 30 ML UDC (MYLANTA) PO PRN (02:45)
[2022-01-20] MEDS ORDERED: ACETAMINOPHEN 325 MG TABLET PO PRN (02:45)
[2022-01-20] MEDS ORDERED: RT-ALBUTEROL SULF 2.5 MG/3 ML PRE-MIX VIAL INH PRN (03:00)
[2022-01-20 04:00] VITALS: BP 115/60
[2022-01-20 04:54] LABS: MEAN CORPUSCULAR HEMOGLOBIN 28 pg (25-34); MEAN PLATELET VOLUME 10.3 fL (9.0-12.2); NEUTROPHILS # (AUTO) 2.7 10^3/uL (1.8-7.8)
[2022-01-20 04:55] LABS: BASOPHILS % (AUTO) 0 % (0-10); EOSINOPHILS # (AUTO) 0.1 10^3/uL (0.0-0.3); EOSINOPHILS % (AUTO) 1 % (0-10); HEMATOCRIT 31 % (40-54); HEMOGLOBIN 9.2 g/dL (13.3-17.7); LYMPHOCYTES # (AUTO) 1.3 10^3/uL (1.0-4.0); LYMPHOCYTES % (AUTO) 28 % (12-44); MEAN CORPUSCULAR HGB CONC 30 g/dL (32-36); MEAN CORPUSCULAR VOLUME 95 fL (80-99); MONOCYTES # (AUTO) 0.5 10^3/uL (0.0-1.0); MONOCYTES % (AUTO) 11 % (0-12); NEUTROPHILS % (AUTO) 60 % (42-75); PLATELET COUNT 133 10^3/uL (130-400); WHITE BLOOD COUNT 4.6 10^3/uL (4.3-11.0)
[2022-01-20 05:22] LABS: BUN/CREATININE RATIO 13; CALCIUM 8.9 MG/DL (8.5-10.1); CARBON DIOXIDE 34 MMOL/L (21-32); CHLORIDE 96 MMOL/L (98-107); CHOLESTEROL 167 MG/DL (< 200); GFR ESTIMATED 98; GLUCOSE 94 MG/DL (70-105); HDL CHOLESTEROL 73 MG/DL (40-60); SODIUM 140 MMOL/L (135-145); TRIGLYCERIDES 63 MG/DL (<150); VLDL CHOLESTEROL 13 MG/DL (5-40)
[2022-01-20 06:00] VITALS: BP 131/64
[2022-01-20] MEDS ORDERED: CATHETER FLUSH 10 ML SYR IVP SCH (06:00)
[2022-01-20 08:00] VITALS: BP 114/61
[2022-01-20] MEDS ORDERED: ASPIRIN E.C. 81 MG (ECOTRIN) TAB PO SCH (09:00)
--- NOTE | 2022-01-20 09:19 | Discharge Inst-Simple/Standard ---
Discharge Inst-Standard Reconcile Patient Problems Problems Reviewed?: Yes Discharge Medications New, Converted or Re-Newed RX: Other Patient Instructions/Follow Up Plan of Care/Instructions/FU: Follow-up with Dr. Carrion in 2 to 4 weeks Activity as Tolerated: Yes Discharge Diet: Cardiac Diet JOSHUA CARRION MD Jan 20, 2022 09:19
--- NOTE | 2022-01-20 09:23 | Short Stay Summary ---
History of Present Illness History of Present Illness Reason for visit/HPI 66 years old gentleman with extensive coronary artery disease, chronic stable angina, severe COPD Came into the emergency room for increasing chest pain, had recurrent episode of chest pain did not respond fully to nitroglycerin or GI cocktail, responded to morphine This morning he was feeling better, no further episodes of chest pain EKG and cardiac enzymes did not show any acute abnormality. Date of Admission Jan 20, 2022 at 00:34 Date of Discharge January 20, 2022 Time Seen by Provider: 09:20 Attending Physician Stanford Hanks MD Admitting Physician Admitting Physician: Nick Douglas MD Attending Physician: Nick Douglas MD Consult Allergies and Home Medications Allergies Coded Allergies: budesonide (Verified Allergy, Severe, angioedema, 12/06/18) formoterol (Verified Allergy, Severe, angioedema, 12/06/18) tetanus toxoid, adsorbed (Verified Allergy, Mild, hives, 12/06/18) DOROTA Inhibitors (Verified Allergy, Unknown, Angioedema, 12/06/18) Patient Home Medication List Home Medication List Reviewed: Yes Albuterol Sulfate (Ventolin Hfa) 1 Puff Puff, 2 PUFF IH PRN PRN for SHORTNESS OF BREATH, (Reported) Entered as Reported by: GAVIN RUBIO on 03/18/18736 Amlodipine Besylate (Amlodipine Besylate) 5 Mg Tablet, 5 MG PO DAILY, (Reported) Entered as Reported by: CELSO SZYMANSKI on 02/15/18349 Aripiprazole (Aripiprazole) 30 Mg Tablet, 30 MG PO DAILY, (Reported) Entered as Reported by: JEFF LEWIS on 06/29/20 1249 Aspirin (Aspirin) 81 Mg Tab.chew, 81 MG PO DAILY, (Reported) Entered as Reported by: JEFF LEWIS on 05/01/20 1344 Atorvastatin Calcium (Atorvastatin Calcium) 80 Mg Tablet, 80 MG PO DAILY, (Reported) Entered as Reported by: GAVIN RUBIO on 03/18/18736 Bupropion HCl (Bupropion HCl) 75 Mg Tablet, 75 MG PO DAILY, (Reported) Entered as Reported by: CELSO SZYMANSKI on 02/15/18349 Carvedilol (Carvedilol) 6.25 Mg Tablet, 6.25 MG PO DAILY, (Reported) Entered as Reported by: CELSO MARLOW on 07/25/17 1535 Clopidogrel Bisulfate (Clopidogrel) 75 Mg Tablet, 75 MG PO DAILY, (Reported) Entered as Reported by: JEFF LEWIS on 11/08/19 1527 Dicyclomine HCl (Dicyclomine HCl) 20 Mg Tablet, 20 MG PO Q6H Prescribed by: DEBBIE ESPINOSA on 12/17/21 0105 Fish Oil/Dha/Epa (Fish Oil 1,200 mg Fish Oil) 1 Each Capsule, 1 EACH PO DAILY, (Reported) Entered as Reported by: JEFF LEWIS on 06/29/20 1251 Isosorbide Mononitrate (Isosorbide Mononitrate ER) 30 Mg Tab.er.24h, 30 MG PO DAILY, (Reported) Entered as Reported by: PASHA GALEANA on 07/25/16 0945 Metoclopramide HCl (Metoclopramide HCl) 10 Mg Tablet, 10 MG PO ACHS Prescribed by: OUMAR POWERS on 10/31/21 0835 Mirtazapine (Mirtazapine) 30 Mg Tablet, 30 MG PO HS, (Reported) Entered as Reported by: CELSO SZYMANSKI on 02/15/18 0350 Montelukast Sodium (Montelukast Sodium) 10 Mg Tablet, 10 MG PO DAILY, (Reported) Entered as Reported by: JEFF LEWIS on 06/29/20 1249 Nitroglycerin (Nitroglycerin) 0.4 Mg Tab.subl, 0.4 MG SL UD PRN for CHEST PAIN Prescribed by: JUAREZ TOLENTINO on 08/19/21 1013 Ondansetron (Ondansetron Odt) 4 Mg Tab.rapdis, 4 MG PO Q4H Prescribed by: DEBBIE ESPINOSA on 12/17/21 0105 Pantoprazole Sodium (Pantoprazole Sodium) 40 Mg Tablet.dr, 40 MG PO DAILY@0700 Prescribed by: OUMAR POWERS on 10/31/21 0835 Ranolazine (Ranexa) 500 Mg Tab.er.12h, 1,000 MG PO BID Prescribed by: OUMAR POWERS on 10/31/21 0835 Sertraline HCl (Sertraline HCl) 100 Mg Tablet, 200 MG PO DAILY, (Reported) Entered as Reported by: JEFF LEWIS on 11/08/19 1527 Sucralfate (Sucralfate) 1 Gram Tablet, 1 GM PO AC Prescribed by: OUMAR POWERS on 10/31/21 0835 Past [place]-Ocduqb-Piqorj Hx Patient Social History Marrital Status: Employed/Student: unemployed Drug of Choice: DENIES Smoking Status: Former Smoker Former Smoker, Quit: Dec 16, 2017 2nd Hand Smoke Exposure: Yes Recent Hopitalizations: No Have you traveled recently?: No Alcohol Use?: No Pt feels they are or have been: No Immunizations Up To Date Tetanus Booster (TDap): Unknown Pediatric: No Date of Pneumonia Vaccine: Apr 26, 2020 Date of Influenza Vaccine: Apr 26, 2020 Seasonal Allergies Seasonal Allergies: No Surgeries Yes (LEFT INGUINAL HERNIA;CABG WITH STENTS IN HEART AND LEG, R carotid endartect) Abdominal, Cardiac, CABG, Coronary Stent, Tonsillectomy, Vascular Surgery Respiratory Yes (WEARS O2 AT 5L/NC CONTINUOUSLY. RUL PULMONARY NODULE) COPD Currently Using CPAP: No Currently Using BIPAP: No Cardiovascular Yes (STENT X1/ANGIO L EXT ILIAC ART;CABG/STENT X4;CAROTID DZ;CHF;CARDIAC ARREST) Coronary Artery Disease, Deep Vein Thrombosis, Heart Attack, High Cholesterol, Hypertension, Peripheral Vascular Neurological Yes Stroke Reproductive System Hx Reproductive Disorders: No Sexually Transmitted Disease: No HIV/AIDS: No Genitourinary No Gastrointestinal Yes Abdominal Hernia, Gastroesophageal Reflux, Diverticulosis, Ulcer Musculoskeletal Yes Degenerate Disk Disease, Arthritis, Chronic Back Pain Endocrine History of Endocrine Disorders: No HEENT History of HEENT Disorders: No Loss of Vision: Denies Hearing Impairment: Denies Cancer No Psychosocial History of Psychiatric Problem: Yes Behavioral Health Disorders: Sleep Difficulties, Anxiety, Schizophrenia, Depression Integumentary History of Skin or Integumenta: No Blood Transfusions History of Blood Disorders: No Adverse Reaction to a Blood Tr: No Family Medical History Significant Family History: Heart Disease, Diabetes Other Significan Family Hx: SOCIAL HX: -HX OF ALCOHOL ABUSE--CLAIMS HE QUIT YEARS AGO -DENIES DRUG USE -SMOKED 2-3 PPD--QUIT 2017 PSH: -CABG--1 VESSEL BYPASS -CARDIAC CATHS AND STENTS X 4, WITH ANGIOPLASTIES--LAST CARDIAC CATH 03/2018--PATENT STENT TO PROXIMAL LAD TO FIRST DIAGONAL, COMPLETE OCCLUSION OF MID LAD AND TO VEIN GRAFT TO LAD; EF 45-50%--NO INTERVENTION DONE AT THAT TIME AND FINDINGS WERE THE SAME THOSE FOUND ON CARDIAC CATH IN 2015 -ANGIOPLASTY AND STENT X 1 TO LEFT LEG/EXTERNAL ILIAC ARTERY 02/2017 -LEFT INGUINAL HERNIA REPAIR -TONSILLECTOMY ADDITIONAL PMH: -HX OF CARDIAC ARREST -CAROTID DISEASE--SEVERE ON RIGHT -RBBB ; LAFB Family Hx: Diabetes mellitus 19 MOTHER FH: heart disease 19 FATHER Review of Systems Constitutional: see HPI, malaise EENTM: see HPI Respiratory: see HPI; No cough, No dyspnea on exertion, No hemoptysis, No orthopnea, No phlegm; short of breath; No stridor, No wheezing, No other Cardiovascular: see HPI, chest pain; No edema, No Hx of Intervention, No palpitations, No syncope, No vascular heart diseas, No other Gastrointestinal: see HPI, nausea Genitourinary: see HPI; No decreased output, No discharge, No dysuria, No frequency, No hematuria, No hesitancy, No incontinence, No nocturia, No pain, No other Musculoskeletal: see HPI; No back pain, No gout; joint pain; No joint swelling, No muscle pain, No muscle stiffness, No muscle cramps, No muscle twitching, No muscle weakness, No neck pain, No other Skin: no symptoms reported, see HPI; No change in color, No change in hair/nails, No dryness, No hx of skin cancer, No lesions, No lumps, No pruritus, No rash, No other Psychiatric/Neurological: No Symptoms Reported, See HPI, Anxiety Physical Exam Vital Signs Vital Signs - First Documented 01/19/22 22:25 Temp 36.7 Pulse 90 Resp 20 B/P (MAP) 152/79 (103) Pulse Ox 97 O2 Delivery Nasal Cannula O2 Flow Rate 5.00 Capillary Refill : Less Than 3 Seconds Height, Weight, BMI Height: 5'8.00" Weight: 174lbs. 0.0oz. 78.329202ju; 24.37 BMI Method:Stated General Appearance: No Apparent Distress, WD/WN Eyes: Bilateral Eye Normal Inspection, Bilateral Eye PERRL, Bilateral Eye EOMI HEENT: PERRL/EOMI, TMs Normal, Normal ENT Inspection, Pharynx Normal Neck: Full Range of Motion, Normal Inspection, Non Tender, Supple, Carotid Brui t Respiratory: Chest Non Tender, Lungs Clear, Normal Breath Sounds, No Accessory Muscle Use, No Respiratory Distress Cardiovascular: Regular Rate, Rhythm, No Edema, No Gallop, No JVD, No Murmur, Normal Peripheral Pulses Gastrointestinal: Normal Bowel Sounds, No Organomegaly, No Pulsatile Mass, Non Tender, Soft Back: Normal Inspection, No CVA Tenderness, No Vertebral Tenderness Extremity: Normal Capillary Refill, Normal Inspection, Normal Range of Motion, Non Tender, No Calf Tenderness, No Pedal Edema Neurologic/Psychiatric: Alert, Oriented x3, No Motor/Sensory Deficits, Normal Mood/Affect Skin: Normal Color, Warm/Dry Lymphatic: No Adenopathy Clinical Quality Measures Admission Status Admission Status: Observation AMI/AHF: ASA po Prior to arrival: Yes Short Stay Diagnosis Discharge Diagnosis-Short Stay Admission Diagnosis: Chest pain Coronary artery disease Hypertension Hyperlipidemia COPD Final Discharge Diagnosis: Unstable angina Coronary artery disease Hypertension Hyperlipidemia COPD. Conclusion Labs Laboratory Tests 01/19/22 22:30: Prothrombin Time 12.7, INR Comment 0.9, Activated Partial Thromboplast Time 34, Sodium Level 138, Potassium Level 4.2, Chloride Level 94L, Carbon Dioxide Level 30, Anion Gap 14, Blood Urea Nitrogen 10, Creatinine 0.87, Estimat Glomerular Filtration Rate 95, BUN/Creatinine Ratio 11, Glucose Level 96, Calcium Level 9.2, Corrected Calcium 9.4, Magnesium Level 1.8, Total Bilirubin 0.5, Aspartate Amino Transf (AST/SGOT) 19, Alanine Aminotransferase (ALT/SGPT) 19, Alkaline Phosphatase 92, Myoglobin 61.9, Troponin I < 0.028, Total Protein 6.7, Albumin 3.8, Lipase 23, Serum Alcohol < 10 01/19/22 22:47: White Blood Count 5.6, Red Blood Count 3.30L, Hemoglobin 9.3L, Hematocrit 31L, Mean Corpuscular Volume 93, Mean Corpuscular Hemoglobin 28, Mean Corpuscular Hemoglobin Concent 30L, Red Cell Distribution Width 12.9, Platelet Count 155, Mean Platelet Volume 10.1, Immature Granulocyte % (Auto) 0, Neutrophils (%) (Auto) 61, Lymphocytes (%) (Auto) 28, Monocytes (%) (Auto) 9, Eosinophils (%) (Auto) 2, Basophils (%) (Auto) 0, Neutrophils # (Auto) 3.4, Lymphocytes # (Auto) 1.6, Monocytes # (Auto) 0.5, Eosinophils # (Auto) 0.1, Basophils # (Auto) 0.0, I mmature Granulocyte # (Auto) 0.0, B-Type Natriuretic Peptide 16.7 01/20/22 04:12: Sodium Level 140, Potassium Level 4.0, Chloride Level 96L, Carbon Dioxide Level 34H, Anion Gap 10, Blood Urea Nitrogen 10, Creatinine 0.80, Estimat Glomerular Filtration Rate 98, BUN/Creatinine Ratio 13, Glucose Level 94, Calcium Level 8.9 , Troponin I < 0.028, White Blood Count 4.6, Red Blood Count 3.26L, Hemoglobin 9.2L, Hematocrit 31L, Mean Corpuscular Volume 95, Mean Corpuscular Hemoglobin 28, Mean Corpuscular Hemoglobin Concent 30L, Red Cell Distribution Width 13.0, Platelet Count 133, Mean Platelet Volume 10.3, Immature Granulocyte % (Auto) 0, Neutrophils (%) (Auto) 60, Lymphocytes (%) (Auto) 28, Monocytes (%) (Auto) 11, Eosinophils (%) (Auto) 1, Basophils (%) (Auto) 0, Neutrophils # (Auto) 2.7, Lymphocytes # (Auto) 1.3, Monocytes # (Auto) 0.5, Eosinophils # (Auto) 0.1, Basophils # (Auto) 0.0, Immature Granulocyte # (Auto) 0.0, Percent Immature Platelet Fraction 3.1, Triglycerides Level 63, Cholesterol Level 167, LDL Cholesterol Direct 77, VLDL Cholesterol 13, HDL Cholesterol 73H Conclusion/Plan Chest pain, history of chronic stable angina. History of multiple hospitalization with recurrent chest pain. I recommend conservative management. Patient is feeling better, I am discharging him home and will follow-up as an outpatient Continue on Imdur and Ranexa. Nausea. No vomiting, loss of appetite. Reporting improvement. Feeling better at this time. Coronary artery disease, Cardiac catheterization was done in September 2014 showing total occlusion of the LAD at its midportion with occluded vein graft to the LAD did not fill with collaterals on this study, patent stent in the proximal LAD to the diagonal artery, mild disease in the circumflex and right coronary artery, prominent left ventricle with EF 45 percent. Repeat cardiac catheterization was done in March 2018 showing total occlusion of the mid LAD and the vein graft to the LAD, patent stent in the proximal LAD that was providing flow to the first diagonal branch, mild disease in the circumflex artery and right coronary artery, the apex of the left ventricular still akinetic with ejection fraction 45-50 percent. Coronary intervention deemed inoperable. Conservative management is recommended. Peripheral edema, resolved, continue to monitor History of congestive heart failure with chronic compensated left ventricular systolic dysfunction, last echocardiogram done in June 2020 showed normal le ft ventricular systolic function with ejection fraction 55-65 percent with pulmonary hypertension PA pressure of 45 mmHg. Peripheral arterial disease, history of stent to the left lower extremity, having pain in his lower extremity, seen and evaluated with heart and vascular care, had angiogram and balloon angioplasty with angioscore cutting balloon 5x40 mm to the left external iliac then stenting to the left external iliac artery with 6x50 Viabahn postdilated with a Brent balloon. Done by Dr. Jackson. He has stopped following with heart and vascular care COPD, oxygen dependent. Hypertension, restart home medication monitor blood pressure Hyperlipidemia, continue to monitor lipids Tobaccoism, expressed that he has stopped smoking, encouraged to continue with smoking cessation Carotid stenosis, s had a CT angiogram reported as severe stenosis in the right carotid artery 70 to 80%, no significant stenosis on the left. Patient had right carotid endarterectomy done in May 2021 in [facility]. Recovered well. JOSHUA CASTILLO MD Jan 20, 2022 09:23
[2022-01-20 12:42] VITALS: BP 114/61
== END 2022-01-20 12:45 | disposition home or self-care (01) ==
LOC: EDUNIT# 22:25 → ER 22:26 → ICU 22:27 → UNDOADMOB 01-20 00:34 → ICU 01-20 00:34 → UNDODISOB 01-20 12:45
PROVIDERS: ADMIT Internal Medicine; ATTEND Internal Medicine
DX: I25.110 Atherosclerotic heart disease of native coronary artery with unstable angina pectoris (principal); E78.5 Hyperlipidemia, unspecified; J44.9 Chronic obstructive pulmonary disease, unspecified; Z99.81 Dependence on supplemental oxygen; I11.0 Hypertensive heart disease with heart failure; Z79.899 Other long term (current) drug therapy; R60.0 Localized edema; I50.22 Chronic systolic (congestive) heart failure; F17.210 Nicotine dependence, cigarettes, uncomplicated; I65.21 Occlusion and stenosis of right carotid artery
CPT/HCPCS: 71045; 80048; 80053; 80061; 83690; 83735; 83874; 83880; 84484 ×2; 85025 ×2; 85610; 85730; 93005 ×2; 93041; 99285; G0480; 36415; 80320

== ENCOUNTER → 2022-01-23 | Outpatient (CLI) | payer MEDICARE, MEDICAID ==
[~2022-01-23] MED LIST changes: +RT-ALBUTEROL SULF 2.5 MG/3 ML PRE-MIX VIAL INH ONE
== END ==
LOC: RT 10:35
PROVIDERS: ATTEND Internal Medicine Critical Care Medicine
DX: R91.1 Solitary pulmonary nodule (principal); J44.9 Chronic obstructive pulmonary disease, unspecified; J96.11 Chronic respiratory failure with hypoxia
CPT/HCPCS: 94060; 94621; 94726; 94729

== ENCOUNTER 2022-01-27 21:05 | Observation (INO) | payer MEDICARE, MEDICAID ==
[~2022-01-27] VITALS: Ht 172.7 cm; Wt 76.1 kg
[~2022-01-27 21:05] MED LIST changes: -RT-ALBUTEROL SULF 2.5 MG/3 ML PRE-MIX VIAL INH ONE
[2022-01-27 21:24] LABS: BASOPHILS % (AUTO) 0 % (0-10); EOSINOPHILS # (AUTO) 0.1 10^3/uL (0.0-0.3); EOSINOPHILS % (AUTO) 1 % (0-10); HEMATOCRIT 34 % (40-54); LYMPHOCYTES # (AUTO) 1.5 10^3/uL (1.0-4.0); LYMPHOCYTES % (AUTO) 24 % (12-44); MEAN CORPUSCULAR HEMOGLOBIN 28 pg (25-34); MEAN CORPUSCULAR HGB CONC 29 g/dL (32-36); MEAN CORPUSCULAR VOLUME 95 fL (80-99); MEAN PLATELET VOLUME 10.7 fL (9.0-12.2); MONOCYTES # (AUTO) 0.7 10^3/uL (0.0-1.0); MONOCYTES % (AUTO) 11 % (0-12); NEUTROPHILS # (AUTO) 4.1 10^3/uL (1.8-7.8); NEUTROPHILS % (AUTO) 64 % (42-75); PLATELET COUNT 164 10^3/uL (130-400); WHITE BLOOD COUNT 6.4 10^3/uL (4.3-11.0)
--- NOTE | 2022-01-27 21:41 | Diagnostic Imaging Report ---
INDICATION: Weakness, Stroke work-up. TECHNIQUE: Single view chest 9:37 PM. CORRELATION STUDY: 01/19/2022. FINDINGS: Poststernotomy and coronary artery bypass changes. Heart size, mediastinum and vasculature overall within normal limits. Unchanged elevated right diaphragm. Perhaps minimal scarring at the right lung base. No infiltrate. IMPRESSION: Stable chest x-rays. No acute abnormality. Postsurgical change. Dictated by: Dictated on workstation # [id number]
[2022-01-27 21:43] LABS: ALBUMIN 4.1 GM/DL (3.2-4.5); CHLORIDE 89 MMOL/L (98-107); SODIUM 140 MMOL/L (135-145)
--- NOTE | 2022-01-27 21:43 | Diagnostic Imaging Report ---
PROCEDURE: CT head wo r/o stroke. TECHNIQUE: Multiple contiguous axial images were obtained through the brain without the use of intravenous contrast. Auto Exposure Controls were utilized during the CT exam to meet ALARA standards for radiation dose reduction. INDICATION: 66-year-old male, stroke like symptoms. CORRELATION: None FINDINGS: There is no midline shift or mass effect. The ventricles and sulci are unremarkable. No evidence for acute intracranial hemorrhage, abnormal extra-axial fluid collections or cerebral edema is present. The basilar cisterns are unremarkable. The bony calvarium is intact. The visualized paranasal sinuses and mastoid air cells are clear. Prior surgical changes the maxillary sinuses. IMPRESSION: Negative appearing noncontrast CT of the head. Dictated by: Dictated on workstation # [id number]
[2022-01-27 21:45] LABS: CALCIUM 9.6 MG/DL (8.5-10.1)
[2022-01-27 21:46] LABS: GLUCOSE 108 MG/DL (70-105); TOTAL PROTEIN 7.5 GM/DL (6.4-8.2)
[2022-01-27 21:47] LABS: CARBON DIOXIDE 41 MMOL/L (21-32); FIBRIN DEGRADATION PRODUCTS 0.55 UG/ML (0.00-0.49); INR 0.8 (0.8-1.4); PROTHROMBIN TIME PATIENT 11.9 SEC (12.2-14.7)
[2022-01-27 21:48] LABS: BILIRUBIN,TOTAL 0.3 MG/DL (0.1-1.0)
[2022-01-27 21:49] LABS: ALKALINE PHOSPHATASE 97 U/L (40-136); CREATININE SERUM 0.87 MG/DL (0.60-1.30); GFR ESTIMATED 95
[2022-01-27 21:50] LABS: BUN/CREATININE RATIO 11
[2022-01-27 21:52] LABS: ALANINE AMINOTRANSFERASE 17 U/L (0-55)
[2022-01-27 21:55] LABS: BILIRUBIN,URINE NEGATIVE (NEGATIVE); CLARITY,URINE SL CLOUDY; COLOR,URINE YELLOW; GLUCOSE, URINE (UA) NEGATIVE (NEGATIVE); KETONES,URINE NEGATIVE (NEGATIVE); LEUKOCYTE ESTERASE ,URINE NEGATIVE (NEGATIVE); NITRITE,URINE NEGATIVE (NEGATIVE); PROTEIN,URINE NEGATIVE (NEGATIVE)
[2022-01-27 22:05] LABS: BACTERIA,URINE TRACE /HPF; WBC,URINE RARE /HPF
[2022-01-28] VITALS (7 sets, daily range): BP systolic 126–155; BP diastolic 61–70
[2022-01-28] MEDS ORDERED: methylPREDNISolone 125 MG (Solu-MEDROL) VIAL IVP ONE (01:15)
--- NOTE | 2022-01-28 01:29 | ED Neurological Problem ---
General Chief Complaint: Neuro-Stroke Like Symptoms Stated Complaint: POSS STROKE Nursing Triage Note: PT TO ED BY EMS WITH C/O MUMBLING, L SIDE LEANING, AND LETHARGY SINCE 1300 TODAY. PT HAS R SIDED WEAKNESS AND UNCLEAR SPEECH NORMALLY. EMS REPORTS FAMILY WAS CONCERNED BC PT WAS LEANING TO L SIDE. PT REPORTS INCREASED WEAKNESS AND PEREZ OVER THE LAST COUPLE OF DAYS. DENIES N/V/D, INCREASED SOB, CP, DIZZINESS OR VISION CHANGES. PT WEARS 4 L NC NORMALLY. Source: patient, old records Exam Limitations: no limitations History of Present Illness Date Seen by Provider: Jan 27, 2022 Time Seen by Provider: 21:07 Initial Comments This 66-year-old gentleman presents to the emergency room via EMS with complaints of generalized weakness, listing to the left, hypersomnolence, and mumbling speech. This was noted after returning from [facility] and as early as 0 900. EMS was concerned about possible stroke but there does not appear to be any focal neurologic deficit. Patient does have COPD and is tight and wheezy on exam. He is alert and oriented. Oxygen saturation is 100% on 4 L nasal cannula which he typically uses at home. Allergies and Home Medications Allergies Coded Allergies: budesonide (Verified Allergy, Severe, angioedema, 12/06/18) formoterol (Verified Allergy, Severe, angioedema, pt has rec Albuterol in the past, 01/23/22) tetanus toxoid, adsorbed (Verified Allergy, Mild, hives, 12/06/18) DOROTA Inhibitors (Verified Allergy, Unknown, Angioedema, 12/06/18) Patient Home Medication List Home Medication List Reviewed: Yes Albuterol Sulfate (Ventolin Hfa) 1 Puff Puff, 2 PUFF IH PRN PRN for SHORTNESS OF BREATH, (Reported) Entered as Reported by: GAVIN RUBIO on 03/18/18 0737 Amlodipine Besylate (Amlodipine Besylate) 5 Mg Tablet, 5 MG PO DAILY, (Reported) Entered as Reported by: CELSO SZYMANSKI on 02/15/18 0350 Aripiprazole (Aripiprazole) 30 Mg Tablet, 30 MG PO DAILY, (Reported) Entered as Reported by: JEFF LEWIS on 06/29/20 1249 Aspirin (Aspirin) 81 Mg Tab.chew, 81 MG PO DAILY, (Reported) Entered as Reported by: JEFF LEWIS on 05/01/20 1344 Atorvastatin Calcium (Atorvastatin Calcium) 80 Mg Tablet, 80 MG PO DAILY, (Reported) Entered as Reported by: GAVIN RUBIO on 03/18/18 0737 Bupropion HCl (Bupropion HCl) 75 Mg Tablet, 75 MG PO DAILY, (Reported) Entered as Reported by: CELSO SZYMANSKI on 02/15/18 0350 Carvedilol (Carvedilol) 6.25 Mg Tablet, 6.25 MG PO DAILY, (Reported) Entered as Reported by: CELSO MARLOW on 07/25/17 1535 Clopidogrel Bisulfate (Clopidogrel) 75 Mg Tablet, 75 MG PO DAILY, (Reported) Entered as Reported by: JEFF LEWIS on 11/08/19 1527 Dicyclomine HCl (Dicyclomine HCl) 20 Mg Tablet, 20 MG PO Q6H Prescribed by: DEBBIE ESPINOSA on 12/17/21 0105 Fish Oil/Dha/Epa (Fish Oil 1,200 mg Fish Oil) 1 Each Capsule, 1 EACH PO DAILY, (Reported) Entered as Reported by: JEFF LEWIS on 06/29/20 1251 Isosorbide Mononitrate (Isosorbide Mononitrate ER) 30 Mg Tab.er.24h, 30 MG PO DAILY, (Reported) Entered as Reported by: PASHA GALEANA on 07/25/16 0945 Metoclopramide HCl (Metoclopramide HCl) 10 Mg Tablet, 10 MG PO ACHS Prescribed by: OUMAR POWERS on 10/31/21 0835 Mirtazapine (Mirtazapine) 30 Mg Tablet, 30 MG PO HS, (Reported) Entered as Reported by: CELSO SZYMANSKI on 02/15/18 0350 Montelukast Sodium (Montelukast Sodium) 10 Mg Tablet, 10 MG PO DAILY, (Reported) Entered as Reported by: JEFF LEWIS on 06/29/20 1249 Nitroglycerin (Nitroglycerin) 0.4 Mg Tab.subl, 0.4 MG SL UD PRN for CHEST PAIN Prescribed by: JUAREZ TOLENTINO on 08/19/21 1013 Ondansetron (Ondansetron Odt) 4 Mg Tab.rapdis, 4 MG PO Q4H Prescribed by: DEBBIE ESPINOSA on 12/17/21 0105 Pantoprazole Sodium (Pantoprazole Sodium) 40 Mg Tablet.dr, 40 MG PO DAILY@0700 Prescribed by: OUMAR POWERS on 10/31/21 0835 Ranolazine (Ranexa) 500 Mg Tab.er.12h, 1,000 MG PO BID Prescribed by: OUMAR POWERS on 10/31/21 0835 Sertraline HCl (Sertraline HCl) 100 Mg Tablet, 200 MG PO DAILY, (Reported) Entered as Reported by: JEFF LEWIS on 11/08/19 1527 Sucralfate (Sucralfate) 1 Gram Tablet, 1 GM PO AC Prescribed by: OUMAR POWERS on 10/31/21 0835 Review of Systems Review of Systems Constitutional: see HPI Eyes: No Symptoms Reported Ears, Nose, Mouth, Throat: no symptoms reported Respiratory: see HPI Cardiovascular: no symptoms reported Gastrointestinal: no symptoms reported Genitourinary: no symptoms reported Musculoskeletal: no symptoms reported Skin: no symptoms reported Psychiatric/Neurological: See HPI Endocrine: No Symptoms Reported Hematologic/Lymphatic: No Symptoms Reported Past Qpzwkjh-Eemwlx-Xsylxl Hx Patient Social History Tobacco Use?: No Use of E-Cig and/or Vaping dev: No Substance use?: No Alcohol Use?: No Pt feels they are or have been: No Immunizations Up To Date Tetanus Booster (TDap): Unknown PED Vaccines UTD: No Influenza Vaccine Up-to-Date: No; Not Current First/Initial COVID19 Vaccinat: 2020 Second COVID19 Vaccination Guillermo: 2020 Third COVID19 Vaccination Date: 2020 COVID19 Vaccine 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 RUL PULMONARY NODULE) Pneumonia, Chronic Bronchitis, COPD Currently Using CPAP: No Currently Using BIPAP: No Cardiac: Yes (STENT X1/ANGIO L EXT ILIAC ART;CABG/STENT X4;CAROTID DZ;CHF;CARDIAC ARREST) Coronary Artery Disease, Deep Vein Thrombosis, Heart Attack, High Cholesterol, Hypertension, Peripheral Vascular Neurological: Yes Stroke Reproductive Disorders: No Sexually Transmitted Disease: No HIV/AIDS: No Genitourinary: No Gastrointestinal: Yes Abdominal Hernia, Gastroesophageal Reflux, Diverticulosis, Ulcer Musculoskeletal: Yes Degenerate Disk Disease, Arthritis, Chronic Back Pain Endocrine: No HEENT: No Loss of Vision: Denies Hearing Impairment: Denies Cancer: No Psychosocial: Yes Sleep Difficulties, Anxiety, Schizophrenia, Depression Integumentary: No Blood Disorders: No Adverse Reaction/Blood Tranf: No Family Medical History Diabetes mellitus 19 MOTHER FH: heart disease 19 FATHER Heart Disease, Diabetes SOCIAL HX: -HX OF ALCOHOL ABUSE--CLAIMS HE QUIT YEARS AGO -DENIES DRUG USE -SMOKED 2-3 PPD--QUIT 2017 PSH: -CABG--1 VESSEL BYPASS -CARDIAC CATHS AND STENTS X 4, WITH ANGIOPLASTIES--LAST CARDIAC CATH 03/2018--PATENT STENT TO PROXIMAL LAD TO FIRST DIAGONAL, COMPLETE OCCLUSION OF MID LAD AND TO VEIN GRAFT TO LAD; EF 45-50%--NO INTERVENTION DONE AT THAT TIME AND FINDINGS WERE THE SAME THOSE FOUND ON CARDIAC CATH IN 2014 -ANGIOPLASTY AND STENT X 1 TO LEFT LEG/EXTERNAL ILIAC ARTERY 02/2017 -LEFT INGUINAL HERNIA REPAIR -TONSILLECTOMY ADDITIONAL PMH: -HX OF CARDIAC ARREST -CAROTID DISEASE--SEVERE ON RIGHT -RBBB ; LAFB Physical Exam Vital Signs Vital Signs - First Documented 01/27/22 21:05 Temp 36.5 Pulse 83 Resp 20 B/P (MAP) 145/72 (96) Pulse Ox 100 O2 Delivery Nasal Cannula O2 Flow Rate 4.00 Capillary Refill : Height, Weight, BMI Height: 5'8.00" Weight: 174lbs. 0.0oz. 78.590279xl; 24.00 BMI Method:Stated General Appearance: WD/WN, no apparent distress HEENT: PERRL/EOMI, normal ENT inspection Neck: normal inspection Respiratory: no respiratory distress, no accessory muscle use, wheezing, other (decreased air movement) Cardiovascular: regular rate, rhythm, no edema, no murmur Gastrointestinal: normal bowel sounds, non tender, soft Extremities: normal inspection, no pedal edema Neurologic/Psychiatric: car wrecker II-XII nml as tested, no motor/sensory deficits, alert, normal mood/affect Crainal Nerves: normal hearing, normal speech, PERRL Coordination/Gait: normal finger to nose Motor/Sensory: no motor deficit, no sensory deficit Skin: normal color, warm/dry Stroke NIH Stroke Scale Assessment Level of Consciousness: 0=Alert (0), Level of Consciousness-Questions: 0=Answers both month/age (0), LOC Commands: 0=Performs both tasks (0), Gaze: Normal (0), Visual Mcpherson: 0=No visual loss (0), Facial Movement (Facial Paresis): 0=Normal symmetrical mnt (0), Motor Function-Arms Right: 1=Drift (1), Motor Function-Arms Left: 1=Drift (1), Motor Function-Legs Right: 1=Drift (1), Motor Function-Legs Left: 1=Drift (1), Limb Ataxia: 0=Absent (0), Sensory: 0=Normal:no loss (0), Best Language: 0=No aphasia (0), Dysarthria: 0=Normal (0), Extinction & Inattention: 0=No abnormality (0), Total: Stroke Thrombolytic Exclusion Intracranial Neoplasm/Aneurysm: No Recent CPR: No Diabetic Hemorrhagic Retinopat: No Recent Obstetric Delivery: No Significant Hepatic Dysfunctio: No Improving Symptoms: No Progress/Results/Core Measures Results/Orders Lab Results Laboratory Tests Test 01/27/22 21:18 01/27/22 21:50 01/27/22 21:55 01/28/22 00:03 Range/Units White Blood Count 6.4 4.3-11.0 10^3/uL Red Blood Count 3.58 L 4.30-5.52 10^6/uL Hemoglobin 10.0 L 13.3-17.7 g/dL Hematocrit 34 L 40-54 % Mean Corpuscular Volume 95 80-99 fL Mean Corpuscular Hemoglobin 28 25-34 pg Mean Corpuscular Hemoglobin Concent 29 L 32-36 g/dL Red Cell Distribution Width 12.7 10.0-14.5 % Platelet Count 164 130-400 10^3/uL Mean Platelet Volume 10.7 9.0-12.2 fL Immature Granulocyte % (Auto) 0 % Neutrophils (%) (Auto) 64 42-75 % Lymphocytes (%) (Auto) 24 12-44 % Monocytes (%) (Auto) 11 0-12 % Eosinophils (%) (Auto) 1 0-10 % Basophils (%) (Auto) 0 0-10 % Neutrophils # (Auto) 4.1 1.8-7.8 10^3/uL Lymphocytes # (Auto) 1.5 1.0-4.0 10^3/uL Monocytes # (Auto) 0.7 0.0-1.0 10^3/uL Eosinophils # (Auto) 0.1 0.0-0.3 10^3/uL Basophils # (Auto) 0.0 0.0-0.1 10^3/uL Immature Granulocyte # (Auto) 0.0 0.0-0.1 10^3/uL Prothrombin Time 11.9 L 12.2-14.7 SEC INR Comment 0.8 0.8-1.4 Activated Partial Thromboplast Time 34 24-35 SEC D-Dimer 0.55 H 0.00-0.49 UG/ML Sodium Level 140 135-145 MMOL/L Potassium Level 4.0 3.6-5.0 MMOL/L Chloride Level 89 L 98-107 MMOL/L Carbon Dioxide Level 41 H 21-32 MMOL/L Anion Gap 10 5-14 MMOL/L Blood Urea Nitrogen 10 7-18 MG/DL Creatinine 0.87 0.60-1.30 MG/DL Estimat Glomerular Filtration Rate 95 BUN/Creatinine Ratio 11 Glucose Level 108 H 70-105 MG/DL Calcium Level 9.6 8.5-10.1 MG/DL Corrected Calcium 9.5 8.5-10.1 MG/DL Total Bilirubin 0.3 0.1-1.0 MG/DL Aspartate Amino Transf (AST/SGOT) 22 5-34 U/L Alanine Aminotransferase (ALT/SGPT) 17 0-55 U/L Alkaline Phosphatase 97 40-136 U/L Troponin I < 0.028 <0.028 NG/ML Total Protein 7.5 6.4-8.2 GM/DL Albumin 4.1 3.2-4.5 GM/DL Urine Color YELLOW Urine Clarity SL CLOUDY Urine pH 7.0 5-9 Urine Specific Warren 1.015 L 1.016-1.022 Urine Protein NEGATIVE NEGATIVE Urine Glucose (UA) NEGATIVE NEGATIVE Urine Ketones NEGATIVE NEGATIVE Urine Nitrite NEGATIVE NEGATIVE Urine Bilirubin NEGATIVE NEGATIVE Urine Urobilinogen 0.2 < = 1.0 MG/DL Urine Leukocyte Esterase NEGATIVE NEGATIVE Urine RBC (Auto) NEGATIVE NEGATIVE Urine RBC NONE /HPF Urine WBC RARE /HPF Urine Squamous Epithelial Cells NONE /HPF Urine Crystals NONE /LPF Urine Bacteria TRACE /HPF Urine Casts NONE /LPF Urine Mucus SMALL H /LPF Urine Culture Indicated NO Glucometer 100 70-110 MG/DL Influenza Type A (RT-PCR) Not Detected Not Detecte Influenza Type B (RT-PCR) Not Detected Not Detecte SARS-CoV-2 RNA (RT-PCR) Not Detected Not Detecte Test 01/28/22 00:37 Range/Units Bedside Blood Gas pH (LAB) 7.325 7.310-7.410 Bedside Blood Gas pCO2 (LAB) 94.7 *H 41.0-51.0 mmHg Bedside Blood Gas pO2 (LAB) 147 H 80-105 mmHg Bedside Blood Gas HCO3 (LAB) 49.3 *H 23.0-28.0 mmol/L POC Blood Gas Total CO2 Calc > 50 *H 24-29 mmol/L Bedside Bl Gas O2 Saturation (Calc) 99 H 95-98 % Bedside Arterial Blood Base Excess 23 H -2-3 mmol/L My Orders Orders - IRIS NELSON MD Ct Head Wo-R/O Stroke (01/27/22 21:09) Cbc With Automated Diff (01/27/22 21:17) Protime With Inr (01/27/22 21:17) Partial Thromboplastin Time (01/27/22 21:17) Comprehensive Metabolic Panel (01/27/22 21:17) Fibrin Degradation Products (01/27/22 21:17) Troponin I [place] (01/27/22 21:17) Ua Culture If Indicated (01/27/22 21:17) Chest 1 View, Ap/Pa Only (01/27/22 21:17) Ekg Tracing (01/27/22 21:17) Accucheck Stat ONCE (01/27/22 21:17) Ed Iv/Invasive Line Start (01/27/22 21:17) Ed Iv/Invasive Line Start (01/27/22 21:17) Vital Signs Stroke Patient Q15M (01/27/22 21:17) O2 (01/27/22 21:17) Monitor-Rhythm Ecg Trace Only (01/27/22 21:17) Dysphagia Screening Tool [id number] (01/27/22 21:17) Lipid Panel (01/28/22 06:00) Covid 19 Inhouse Test (01/28/22 00:01) Influenza A And B By Pcr (01/28/22 00:01) Methylprednisolone Sod Succ (Solu-Medrol (01/28/22 01:15) Albuterol/Ipra Inhalation Soln (Duoneb I (01/28/22 01:30) Svn Small Volume Nebulizer (01/28/22 01:17) Ondansetron Injection (Zofran Injectio (01/28/22 01:30) Medications Given in ED Current Medications Medications Dose Ordered Sig/Shira Route Start Time Stop Time Status Last Admin Dose Admin Methylprednisolone Sodium Succinate 125 mg ONCE ONCE IVP 01/28/22 01:15 01/28/22 01:16 DC 01/28/22 01:31 125 MG Vital Signs/I&O 01/27/22 01/27/22 21:05 21:05 Temp 36.5 Pulse 83 Resp 20 B/P (MAP) 145/72 (96) Pulse Ox 100 100 O2 Delivery Nasal Cannula Nasal Cannula O2 Flow Rate 4.00 4.00 Blood Pressure Mean: 96 FSBG Bedside Testing Finger Stick Blood Glucose: 100 Progress Progress Note : Progress Note Age adjusted D-Dimer negative. No significant focal deficits were identified to cause suspicion for true stroke syndrome. Symptoms seem to be more global. Since patient was quite tight and wheezing on initial evaluation, raising concern for hypercarbia. ABG was obtained and confirmed the suspicion. Oxygen flow rate was turned down, DuoNeb was administered, Solu-Medrol was given, and BiPAP was ordered. Plan was discussed with Dr. Beck. Patient is agreeable to admission to work on these issues. CODE STATUS was discussed and he is full code. Initial ECG Impression Date: Jan 27, 2022 Initial ECG Impression Time: 21:20 Initial ECG Rate: 82 Initial ECG Rhythm: Normal Sinus Comment Sinus rhythm with no ST elevation or depression. No abnormal intervals. Left axis deviation. Diagnostic Imaging Diagonstic Imaging: CT Plain Films/CT/US/NM/MRI: head Comments NAME: WINTER PIEDRA MED REC#: [id number] PT STATUS: REG ER : 1955 PHYSICIAN: IRIS NELSON MD ADMIT DATE: 01/27/22/ER Signed Date of Exam:01/27/22 CT HEAD WO-R/O STROKE PROCEDURE: CT head wo r/o stroke. TECHNIQUE: Multiple contiguous axial images were obtained through the brain without the use of intravenous contrast. Auto Exposure Controls were utilized during the CT exam to meet ALARA standards for radiation dose reduction. INDICATION: 66-year-old male, stroke like symptoms. CORRELATION: None FINDINGS: There is no midline shift or mass effect. The ventricles and sulci are unremarkable. No evidence for acute intracranial hemorrhage, abnormal extra-axial fluid collections or cerebral edema is present. The basilar cisterns are unremarkable. The bony calvarium is intact. The visualized paranasal sinuses and mastoid air cells are clear. Prior surgical changes the maxillary sinuses. IMPRESSION: Negative appearing noncontrast CT of the head. Dictated by: Dictated on workstation # [id number] Dict: 01/27/222139 Trans: 01/27/222316 DO Interpreted by: ROCK ROSALES DO Electronically signed by: ROCK ROSALES DO 01/27/222316 Reviewed: Reviewed by Diagonstic Imaging: Xray Plain Films/CT/US/NM/MRI: chest Comments NAME: WINTER PIEDRA MED REC#: [id number] PT STATUS: REG ER : 1955 PHYSICIAN: IRIS NELSON MD ADMIT DATE: 01/27/22/ER Signed Date of Exam:01/27/22 CHEST 1 VIEW, AP/PA ONLY INDICATION: Weakness, Stroke work-up. TECHNIQUE: Single view chest 9:37 PM. CORRELATION STUDY: 01/19/2022. FINDINGS: Poststernotomy and coronary artery bypass changes. Heart size, mediastinum and vasculature overall within normal limits. Unchanged elevated right diaphragm. Perhaps minimal scarring at the right lung base. No infiltrate. IMPRESSION: Stable chest x-rays. No acute abnormality. Postsurgical change. Dictated by: Dictated on workstation # [id number] Dict: 01/27/[id number] Trans: 01/27/222315 PJE [id number] Interpreted by: ROCK ROSALES DO Electronically signed by: ROCK ROSALES DO 01/27/222315 Reviewed: Reviewed by Me Departure Communication (Admissions) Dr. Chen Time/Spoke to Consulting Phy: 01:19 Impression Primary Impression: Hypercarbia Additional Impressions: COPD exacerbation Generalized weakness Disposition: ADMITTED INPATIENT Condition: Improved Admissions Decision to Admit Reason: Admit from ER (General) Decision to Admit/Date: Jan 28, 2022 Time/Decision to Admit Time: 01:19 Departure-Patient Inst. Referrals: SONYA FERNANDEZ MD (PCP/Family) Primary Care Physician IRIS NELSON MD Jan 28, 2022 01:29
[2022-01-28] MEDS ORDERED: ONDANSETRON 4 MG/2 ML (SDV) Z0FRAN IVP ONE (01:30)
[2022-01-28] MEDS ORDERED: RT-ALBUTEROL/IPRATROPIUM 3 ML (DUONEB) VIAL INH ONE (01:30)
[2022-01-28] MEDS ORDERED: ALPRAZolam 0.25 MG (XANAX) TAB PO ONE (01:45)
[2022-01-28] MEDS ORDERED: CATHETER FLUSH 10 ML SYR IVP PRN (02:30)
[2022-01-28] MEDS ORDERED: RT-ALBUTEROL SULF 2.5 MG/3 ML PRE-MIX VIAL IH PRN (02:45)
[2022-01-28] MEDS ORDERED: RT-ALBUTEROL/IPRATROPIUM 3 ML (DUONEB) VIAL IH SCH (04:00)
[2022-01-28] MEDS: methylPREDNISolone 40 MG/ML (Solu-MEDROL) VIAL IV SCH ×3 (05:16→18:42)
[2022-01-28] MEDS: CATHETER FLUSH 10 ML SYR IVP SCH ×2 (05:17→11:22)
[2022-01-28 05:58] LABS: EOSINOPHILS % (AUTO) 0 % (0-10); HEMOGLOBIN 9.5 g/dL (13.3-17.7)
[2022-01-28 06:00] LABS: BASOPHILS % (AUTO) 0 % (0-10); HEMATOCRIT 32 % (40-54); LYMPHOCYTES # (AUTO) 0.4 10^3/uL (1.0-4.0); LYMPHOCYTES % (AUTO) 9 % (12-44); MEAN CORPUSCULAR HEMOGLOBIN 28 pg (25-34); MEAN CORPUSCULAR HGB CONC 30 g/dL (32-36); MEAN CORPUSCULAR VOLUME 94 fL (80-99); MEAN PLATELET VOLUME 10.6 fL (9.0-12.2); MONOCYTES # (AUTO) 0.1 10^3/uL (0.0-1.0); MONOCYTES % (AUTO) 2 % (0-12); NEUTROPHILS # (AUTO) 3.8 10^3/uL (1.8-7.8); NEUTROPHILS % (AUTO) 89 % (42-75); PLATELET COUNT 126 10^3/uL (130-400); WHITE BLOOD COUNT 4.3 10^3/uL (4.3-11.0)
[2022-01-28 06:27] LABS: CALCIUM 9.3 MG/DL (8.5-10.1); CREATININE SERUM 0.74 MG/DL (0.60-1.30); POTASSIUM 4.1 MMOL/L (3.6-5.0)
[2022-01-28 06:30] LABS: HYPOCHROMASIA SLIGHT; LYMPHOCYTES % (MANUAL) 10 %; MONOCYTES % (MANUAL) 2 %; NEUTROPHILS % (MANUAL) 88 %
[2022-01-28] MEDS: RT-ALBUTEROL/IPRATROPIUM 3 ML (DUONEB) VIAL INH SCH ×4 (07:00→20:24)
--- NOTE | 2022-01-28 10:54 | History & Physical-Hospitalist ---
History of Present Illness HPI/Chief Complaint Pt is a 66-year-old male with past medical history of hypertension, hyperlipidemia, coronary artery disease, carotid stenosis, COPD, chronic hypoxic respiratory failure, tobacco abuse, who presented due to weakness. He states he was worried he was having a mini stroke because he thought it was worse on the left. He was found to be profoundly hypercarbic in the ER and admitted for COPD exacerbation. This morning he reports feeling well and has no complaints. He believes his left sided weakness has resolved and his SOB improved. Date Seen 01/28/22 Time Seen by a Provider: 10:00 Attending Physician Stanford Hanks MD PCP Admitting Physician: Lexi Beck MD Attending Physician: Juarez Luque MD Referring Physician Date of Admission Jan 28, 2022 at 01:27 Home Medications & Allergies Home Medications Reviewed patient Home Medication Reconciliation performed by pharmacy medication reconciliations biomedical engineering technician and/or nursing. Patients Allergies have been reviewed. Allergies Allergies Coded Allergies budesonide (Verified Allergy, Severe, angioedema, 12/06/18) formoterol (Verified Allergy, Severe, angioedema, pt has rec Albuterol in the past, 01/23/22) tetanus toxoid, adsorbed (Verified Allergy, Mild, hives, 12/06/18) DOROTA Inhibitors (Verified Allergy, Unknown, Angioedema, 12/06/18) Past Ajzqqjv-Txwoaz-Lezgwa Hx Patient Social History Tobacco Use?: No Smoking Status: Former Smoker Smokeless Tobacco Frequency: Never a User Use of E-Cig and/or Vaping dev: No Substance use?: No Alcohol Use?: No Pt feels they are or have been: No Immunizations Up To Date Date of Influenza Vaccine: Apr 26, 2020 First/Initial COVID19 Vaccinat: 2020 Second COVID19 Vaccination Guillermo: 2020 Tetanus Booster (TDap): Unknown Hepatitis A: Yes Hepatitis B: Yes PED Vaccines UTD: No Date of Pneumonia Vaccine: Apr 26, 2020 Seasonal Allergies Seasonal Allergies: No Current Status Advance Directives: Yes Advance Directive Location: Home Communicates: Verbally Primary Language: P[place]dein[place] Preferred Spoken Language: P[place]dein[place] Is interpretation needed?: No Sensory deficits: Vision impairment Implanted or Applied Medical D: Stents Past Medical History Surgeries: Abdominal, Cardiac, CABG, Coronary Stent, Tonsillectomy, Vascular Surgery Pneumonia, Chronic Bronchitis, COPD Currently Using CPAP: No Currently Using BIPAP: No Coronary Artery Disease, Deep Vein Thrombosis, Heart Attack, High Cholesterol, Hypertension, Peripheral Vascular Stroke Sexually Transmitted Disease: No HIV/AIDS: No Abdominal Hernia, Gastroesophageal Reflux, Diverticulosis, Ulcer Degenerate Disk Disease, Arthritis, Chronic Back Pain Loss of Vision: Denies Hearing Impairment: Denies Sleep Difficulties, Anxiety, Schizophrenia, Depression Blood Disorders: No Adverse Reaction/Blood Tranf: No Past Medical History 1. CAD with history of CABG 2. Tobaccoism 3. Severe COPD 4. HTN 5. Anxiey 6. Chronic Unstable Angina 7. Depression Past Surgical History 1. CABG 2. Multiple Cardiac Cath. 3. Tonsillectomy 4. Hernia Repair Family Medical History Reviewed Nursing Family Hx Diabetes mellitus 19 MOTHER FH: heart disease 19 FATHER Heart Disease, Diabetes SOCIAL HX: -HX OF ALCOHOL ABUSE--CLAIMS HE QUIT YEARS AGO -DENIES DRUG USE -SMOKED 2-3 PPD--QUIT 2017 PSH: -CABG--1 VESSEL BYPASS -CARDIAC CATHS AND STENTS X 4, WITH ANGIOPLASTIES--LAST CARDIAC CATH 03/2018--PATENT STENT TO PROXIMAL LAD TO FIRST DIAGONAL, COMPLETE OCCLUSION OF MID LAD AND TO VEIN GRAFT TO LAD; EF 45-50%--NO INTERVENTION DONE AT THAT TIME AND FINDINGS WERE THE SAME THOSE FOUND ON CARDIAC CATH IN 2014 -ANGIOPLASTY AND STENT X 1 TO LEFT LEG/EXTERNAL ILIAC ARTERY 02/2017 -LEFT INGUINAL HERNIA REPAIR -TONSILLECTOMY ADDITIONAL PMH: -HX OF CARDIAC ARREST -CAROTID DISEASE--SEVERE ON RIGHT -RBBB ; LAFB Review of Systems Constitutional: No chills, No fever; malaise, weakness EENTM: no symptoms reported Respiratory: cough, dyspnea on exertion, short of breath Cardiovascular: No chest pain, No edema; Hx of Intervention Gastrointestinal: no symptoms reported Genitourinary: no symptoms reported Musculoskeletal: no symptoms reported Skin: no symptoms reported Psychiatric/Neurological: No Symptoms Reported Physical Exam Physical Exam Vital Signs Vital Signs - First Documented 01/27/22 01/28/22 21:05 02:55 Temp 36.5 Pulse 83 Resp 20 B/P (MAP) 145/72 (96) Pulse Ox 100 O2 Delivery Nasal Cannula O2 Flow Rate 4.00 FiO2 28 Capillary Refill : Height, Weight, BMI Height: 5'8.00" Weight: 174lbs. 0.0oz. 78.561506iz; 25.41 BMI Method:Stated General Appearance: No Apparent Distress, WD/WN, Chronically ill HEENT: PERRL/EOMI, Moist Mucous Membranes; No Scleral Icterus (L), No Scleral Icterus (R) Neck: Normal Inspection, Supple Respiratory: Lungs Clear, No Accessory Muscle Use, Other (on 4lpm NC) Cardiovascular: Regular Rate, Rhythm, No Murmur Gastrointestinal: Normal Bowel Sounds, Non Tender, Soft Extremity: No Calf Tenderness, No Pedal Edema Neurologic/Psychiatric: Alert, Oriented x3, Normal Mood/Affect Skin: Normal Color, Warm/Dry Results Results/Procedures Labs Laboratory Tests 01/27/22 21:18 01/28/22 05:49 Patient resulted labs reviewed. Imaging: Reviewed Imaging Report [facility] [place], [place] NAME: WINTER PIEDRA [facility] REC#: [id number] PT STATUS: REG ER : 1955 PHYSICIAN: IRIS NELSON MD ADMIT DATE: 01/27/22/ER Signed Date of Exam:01/27/22 CT HEAD WO-R/O STROKE PROCEDURE: CT head wo r/o stroke. TECHNIQUE: Multiple contiguous axial images were obtained through the brain without the use of intravenous contrast. Auto Exposure Controls were utilized during the CT exam to meet ALARA standards for radiation dose reduction. INDICATION: 66-year-old male, stroke like symptoms. CORRELATION: None FINDINGS: There is no midline shift or mass effect. The ventricles and sulci are unremarkable. No evidence for acute intracranial hemorrhage, abnormal extra-axial fluid collections or cerebral edema is present. The basilar cisterns are unremarkable. The bony calvarium is intact. The visualized paranasal sinuses and mastoid air cells are clear. Prior surgical changes the maxillary sinuses. IMPRESSION: Negative appearing noncontrast CT of the head. Dictated by: Dictated on workstation # [id number] Dict: 01/27/[id number] Trans: 01/27/222316 DO [id number] Interpreted by: ROCK ROSALES DO Electronically signed by: ROCK ROSALES DO 01/27/222316 [facility] [place], [place] NAME: WINTER PIEDRA MED REC#: [id number] PT STATUS: REG ER : 1955 PHYSICIAN: IRIS NELSON MD ADMIT DATE: 01/27/22/ER Signed Date of Exam:01/27/22 CHEST 1 VIEW, AP/PA ONLY INDICATION: Weakness, Stroke work-up. TECHNIQUE: Single view chest 9:37 PM. CORRELATION STUDY: 01/19/2022. FINDINGS: Poststernotomy and coronary artery bypass changes. Heart size, mediastinum and vasculature overall within normal limits. Unchanged elevated right diaphragm. Perhaps minimal scarring at the right lung base. No infiltrate. IMPRESSION: Stable chest x-rays. No acute abnormality. Postsurgical change. Dictated by: Dictated on workstation # [id number] Dict: 01/27/[id number] Trans: 01/27/222315 PJE [id number] Interpreted by: ROCK ROSALES DO Electronically signed by: ROCK ROSALES DO 01/27/226 Assessment/Plan Admission Diagnosis COPD exacerbation Admission Status: Observation Assessment and Plan COPD Exacerbation Continue steroids MAT protocol ABG improving ventilation On 2-3lpm oxygen, down from baseline Continue home inhalers Weakness PT consulted CT head negative and no lateralizing symptoms Anxiety Depression CAD HTN HLD Continue home meds DVT prophylaxis: Lovenox Diagnosis/Problems Diagnosis/Problems (1) COPD with exacerbation Status: Acute (2) CAD (coronary artery disease) Status: Chronic (3) Acute on chronic respiratory failure with hypoxia and hypercapnia Status: Acute (4) Hyperlipidemia Status: Chronic (5) Generalized weakness Status: Acute (6) Anxiety and depression Status: Acute JUAREZ LUQUE MD Jan 28, 2022 10:54
[2022-01-28] MEDS ORDERED: ENOXAPARIN 40 MG/0.4 ML (LOVENOX) SYR SQ SCH (11:00)
[2022-01-28] MEDS ORDERED: OMG1KC PO (13:08)
[2022-01-28] MEDS ORDERED: PANT40TA52 PO (13:08)
[2022-01-28] MEDS ORDERED: NITR0.4T42 SL (13:09)
[2022-01-28] MEDS ORDERED: RANO10003 PO (13:10)
--- NOTE | 2022-01-28 14:07 | Physical Therapy Evaluation ---
PT Evaluation-General Medical Diagnosis Admission Date Jan 28, 2022 at 01:27 Medical Diagnosis: generalized weakness/hypercarbia/COPD exacerbation Onset Date: Jan 28, 2022 Therapy Diagnosis Therapy Diagnosis: debility/weakness Height/Weight Height (Feet): 5 Height (Inches): 8.00 Weight (Pounds): 174 Weight (Ounces): 0.0 Precautions Precautions/Isolations: Standard Precautions Referral Physician: Rebel Reason for Referral: Evaluation/Treatment Medical History Pertinent Medical History: CABG, CAD, COPD, HTN, DC, PVD Current History EMS secondary to "Stroke Like" symptoms with [facility] x 4 days Reviewed History: Yes Social History Home: Single Level Current Living Status: Spouse Entry Into Home: Stairs With Railing PT Steps Into Home: 2 Prior Prior Level of Function SCALE: Activities may be completed with or without assistive devices. 9-Dziuvqdnct-umetbug completes the activity by him/herself with no assistance from a helper. 5-Set-up or Clean-up Assistance-helper sets up or cleans up; patient completes activity. [place] assists only prior to or following the activity. 4-Supervision or Touching Assistance-helper provides verbal cues and/or touching/steadying and/or contact guard assistance as patient completes activity. Assistance may be provided throughout the activity or intermittently. 3-Partial/Moderate Assistance-helper does LESS THAN HALF the effort. [place] lifts, holds or supports trunk or limbs, but provides less than half the effort. 2-Substantial/Maximal Assistance-helper does MORE THAN HALF the effort. [place] lifts or holds trunk or limbs and provides more than half the effort. 7-Ijxflmeda-kpbafr does ALL the effort. Patient does none of the effort to complete the activity. Or, the assistance of 2 or more helpers is required for the patient to complete the activity. If activity was not attempted, code reason: 7-Patient Refused. 9-Not Applicable-not attempted and the patient did not perform the activity before the current illness, exacerbation or injury. 10-Not Attempted due to Environmental Limitations-(lack of equipment, weather restraints, etc.). 88-Not Attempted due to Medical Conditions or Safety Concerns. Bed Mobility: 6 Transfers (B,C,W/C): 6 Gait: 6 Stairs: 6 Indoor Mobility (Ambulation): Independent Stairs: Independent Prior Devices Use: Other-see list below Prior Device Use: cane PT Evaluation-Current Subjective Patient is very agreeable to participate with PT. Objective Patient Orientation: Normal For Age Attachments: Oxygen (2-4L continuous per patient report) ROM/Strength ROM Lower Extremities bilateral LE WFL Strength Lower Extremities 4/5 bilateral LE grossly all planes Integumentary/Posture Bowel Incontinence: No Bladder Incontinence: No Posture WFL Neuromuscular (Tone, Coordination, Reflexes) grossly intact Sensory Vision: Functional Hearing: Functional Transfers Lying to Sitting/Side of Bed(Q: 6 Sit to Stand (QC): 6 Chair/Lla-eg-Bwxnv Xfer(QC): 6 Gait Mode of Locomotion: Walk Anticipated Mode of Locomotion: Walk Walk 10 feet (QC): 6 Walk 50 ft with 2 Turns(QC): 6 Walk 150 ft (QC): 6 Distance: 275' Gait Assistive Device: FWW Comments/Gait Description safe and functional with no deviation Balance Sitting Static: Normal Sitting Dynamic: Normal Standing Static: Normal Standing Dynamic: Normal Assessment/Needs Patient is currently at independent PLOF with all gross motor skills and does not require skilled PT intervention. Physician notified. Rehab Potential: Fair PT Plan Treatment/Plan Treatment Plan: Discontinue PT, goals met Treatment Duration: Jan 28, 2022 Frequency: 1 time per week Estimated Hrs Per Day: .25 hour per day Patient and/or Family Agrees t: Yes Time/GCodes Time In: 1320 Time Out: 1337 Total Billed Treatment Time: 17 Total Billed Treatment 1 visit [facility] 17 min TOMAS ALRIOS PT Jan 28, 2022 14:06
[2022-01-28] MEDS ORDERED: NITROGLYCERIN 0.4 MG SL TABS BTL 25'S SL PRN (20:30)
[2022-01-29 00:45] VITALS: BP 134/71
[2022-01-29] MEDS: CATHETER FLUSH 10 ML SYR IVP SCH ×2 (00:51→05:23)
[2022-01-29] MEDS: methylPREDNISolone 40 MG/ML (Solu-MEDROL) VIAL IV SCH ×2 (00:51→05:22)
[2022-01-29] MEDS: RT-ALBUTEROL/IPRATROPIUM 3 ML (DUONEB) VIAL INH SCH ×2 (02:53→08:04)
[2022-01-29] MEDS ORDERED: PANTOPRAZOLE 40 MG (PROTONIX) TAB PO SCH (07:00)
--- NOTE | 2022-01-29 07:59 | Discharge Summary ---
Diagnosis/Chief Complaint Date of Admission Jan 28, 2022 at 01:27 Date of Discharge Admission Diagnosis COPD exacerbation Primary Care Stanford Hanks MD Discharge Diagnosis (1) COPD with exacerbation Status: Acute (2) CAD (coronary artery disease) Status: Chronic (3) Acute on chronic respiratory failure with hypoxia and hypercapnia Status: Acute (4) Hyperlipidemia Status: Chronic (5) Generalized weakness Status: Acute (6) Anxiety and depression Status: Acute Discharge Summary Discharge Physical Exam Allergies: Coded Allergies: budesonide (Verified Allergy, Severe, angioedema, 12/06/18) formoterol (Verified Allergy, Severe, angioedema, pt has rec Albuterol in the past, 01/23/22) tetanus toxoid, adsorbed (Verified Allergy, Mild, hives, 12/06/18) DOROTA Inhibitors (Verified Allergy, Unknown, Angioedema, 12/06/18) Vitals & I&Os Vital Signs Date Time Temp Pulse Resp B/P (MAP) Pulse Ox O2 Delivery O2 Flow Rate FiO2 01/29/22 10:25 36.6 79 18 144/67 94 Nasal Cannula 2.00 01/28/22 02:55 28 General Appearance: No Apparent Distress, Chronically ill Respiratory: Lungs Clear, No Respiratory Distress Cardiovascular: Regular Rate, Rhythm, No Murmur Neurologic/Psychiatric: Alert, Oriented x3 Hospital Course Patient was admitted to the hospital secondary to altered mental status due to hypercapnia from acute COPD exacerbation. He was started on steroids and required BiPAP for short period of time. He was quickly titrated off of BiPAP and back to his home oxygen requirement. He was monitored 1 more night and did well. He was able to be discharged home in stable improved condition to complete a course of outpatient steroids and follow-up with his primary care doctor. Labs (last 24 hrs) Patient resulted labs reviewed. Imaging: Reviewed Imaging Report Discussion & Recommendations Discharge Planning: >30 minutes discharge planning Discharge Home Medications: Active Scripts Active Prednisone 10 Mg Tab.ds.pk 10 Mg PO DAILY Take 6 tabs(60mg)daily,decrease by 1 tab(10MG)daily. Reported Ranexa (Ranolazine) 1,000 Mg Tab.er.12h 1,000 Mg PO DAILY Nitroglycerin 0.4 Mg Tab.subl 0.4 Mg SL UD PRN Pantoprazole Sodium 40 Mg Tablet.dr 40 Mg PO DAILY Fish Oil 1,000 mg Capsule ([place] 3 Polyunsat Fatty Acids) 340 Mg-1,000 Mg Cap 1,000 Mg PO DAILY Aripiprazole 30 Mg Tablet 30 Mg PO DAILY Montelukast Sodium 10 Mg Tablet 10 Mg PO DAILY Aspirin 81 Mg Tab.chew 81 Mg PO DAILY Sertraline HCl 100 Mg Tablet 200 Mg PO DAILY TAKES 2 (100MG) TABS Clopidogrel (Clopidogrel Bisulfate) 75 Mg Tablet 75 Mg PO DAILY Ventolin Hfa (Albuterol Sulfate) 1 Puff Puff 2 Puff IH PRN PRN Atorvastatin Calcium 80 Mg Tablet 80 Mg PO DAILY Mirtazapine 30 Mg Tablet 30 Mg PO HS Amlodipine Besylate 5 Mg Tablet 5 Mg PO DAILY Bupropion HCl 75 Mg Tablet 75 Mg PO DAILY Carvedilol 6.25 Mg Tablet 6.25 Mg PO DAILY Isosorbide Mononitrate ER (Isosorbide Mononitrate) 30 Mg Tab.er.24h 30 Mg PO DAILY Instructions to patient/family Please see electronic discharge instructions given to patient. JUAREZ TOLENTINO MD Jan 29, 2022 07:59
[2022-01-29] MEDS ORDERED: PRED10TA22 PO (08:01)
--- NOTE | 2022-01-29 08:08 | Discharge Inst-Simple/Standard ---
Discharge Inst-Standard Discharge Medications New, Converted or Re-Newed RX: Transmitted to Pharmacy Patient Instructions/Follow Up Plan of Care/Instructions/FU: Please continue to take your medications as written. Please follow up with your primary care doctor to follow up this hospital stay. Activity as Tolerated: Yes Discharge Diet: Cardiac Diet Return to The Hospital For: Chest pain, shortness of breath, fever, weakness, if you feel you are getting worse. JUAREZ TOLENTINO MD Jan 29, 2022 08:08
[2022-01-29 08:10] VITALS: BP 144/67
[2022-01-29] MEDS ORDERED: amLODIPine 5 MG (NORVASC) TAB PO SCH (09:00)
[2022-01-29] MEDS ORDERED: OMEGA 3 (FISH OIL) 1000 MG CAP PO SCH (09:00)
[2022-01-29] MEDS ORDERED: SERTRALINE 100 MG (ZOLOFT) TAB PO SCH (09:00)
[2022-01-29] MEDS ORDERED: RANOLAZINE ER 500 MG TAB (RANEXA) PO SCH (09:00)
[2022-01-29] MEDS ORDERED: buPROPion 75 MG (WELLBUTRIN) TAB PO SCH (09:00)
[2022-01-29] MEDS ORDERED: ASPIRIN 81 MG CHEW (CHILDREN'S ASA) PO SCH (09:00)
[2022-01-29] MEDS ORDERED: ISOSORBIDE MONONITRATE 30 MG (IMDUR) TAB PO SCH (09:00)
[2022-01-29] MEDS ORDERED: MONTELUKAST 10 MG (SINGULAIR) TAB PO SCH (09:00)
[2022-01-29] MEDS ORDERED: CLOPIDOGREL 75 MG (PLAVIX) TABLET PO SCH (09:00)
[2022-01-29 10:25] VITALS: BP 144/67
[2022-01-29] MEDS ORDERED: MIRTAZAPINE 15 MG (REMERON) TAB PO SCH (21:00)
== END 2022-01-29 08:08 | disposition home or self-care (01) ==
LOC: EDUNIT# 21:05 → ER 21:06 → 4TH 21:07 → UNDOADMOB 01-28 01:27 → 4TH 01-28 17:45 → UNDODISOB 01-29 10:27
PROVIDERS: ADMIT Internal Medicine; ATTEND Family Medicine
DX: J44.1 Chronic obstructive pulmonary disease with (acute) exacerbation (principal); I25.10 Atherosclerotic heart disease of native coronary artery without angina pectoris; J96.21 Acute and chronic respiratory failure with hypoxia; J96.22 Acute and chronic respiratory failure with hypercapnia; E78.5 Hyperlipidemia, unspecified; R53.1 Weakness; F41.9 Anxiety disorder, unspecified; F32.9 Major depressive disorder, single episode, unspecified; Z28.311 Partially vaccinated for COVID-19; Z79.899 Other long term (current) drug therapy
CPT/HCPCS: 70450; 71045; 80048; 80053; 80061; 81000; 82805; 82947; 84484; 85007; 85025; 85027; 85379; 85610; 85730; 87636; 93005; 93041; 94640 ×2; 94660; 94760; 96372; 96374; 96375; 96376 ×2; 97162; 99285; G0378; 36415

== ENCOUNTER 2022-05-03 21:50 | Observation (INO) | payer MEDICARE, MEDICAID ==
[~2022-05-03] VITALS: Ht 172.7 cm; Wt 79.0 kg
[~2022-05-03 21:50] MED LIST changes: +ALBU8.5H6 IH; +NITR0.4T42 SL
[2022-05-03 22:13] LABS: BASOPHILS % (AUTO) 0 % (0-10); EOSINOPHILS # (AUTO) 0.1 10^3/uL (0.0-0.3); EOSINOPHILS % (AUTO) 2 % (0-10); HEMATOCRIT 27 % (40-54); HEMOGLOBIN 7.6 g/dL (13.3-17.7); LYMPHOCYTES # (AUTO) 1.6 10^3/uL (1.0-4.0); LYMPHOCYTES % (AUTO) 35 % (12-44); MEAN CORPUSCULAR HEMOGLOBIN 26 pg (25-34); MEAN CORPUSCULAR HGB CONC 28 g/dL (32-36); MEAN CORPUSCULAR VOLUME 94 fL (80-99); MEAN PLATELET VOLUME 9.6 fL (9.0-12.2); MONOCYTES # (AUTO) 0.6 10^3/uL (0.0-1.0); MONOCYTES % (AUTO) 12 % (0-12); NEUTROPHILS # (AUTO) 2.3 10^3/uL (1.8-7.8); NEUTROPHILS % (AUTO) 50 % (42-75); PLATELET COUNT 137 10^3/uL (130-400); WHITE BLOOD COUNT 4.7 10^3/uL (4.3-11.0)
[2022-05-03 22:16] LABS: ALBUMIN 3.7 GM/DL (3.2-4.5)
[2022-05-03 22:17] LABS: POTASSIUM 4.4 MMOL/L (3.6-5.0)
[2022-05-03 22:18] LABS: CALCIUM 9.1 MG/DL (8.5-10.1)
[2022-05-03 22:19] LABS: INR 0.9 (0.8-1.4); PROTHROMBIN TIME PATIENT 12.6 SEC (12.2-14.7); TOTAL PROTEIN 6.4 GM/DL (6.4-8.2)
[2022-05-03 22:21] LABS: BILIRUBIN,TOTAL 0.2 MG/DL (0.1-1.0)
[2022-05-03 22:23] LABS: CREATININE SERUM 0.81 MG/DL (0.60-1.30)
[2022-05-03 22:25] LABS: MAGNESIUM 1.6 MG/DL (1.6-2.4)
[2022-05-03] MEDS ORDERED: RT--FLUTICASONE/SALMETEROL 113-14 (AIRDUO RespiCLICK) IH ONE (22:27)
[2022-05-03] MEDS: RT--FLUTICASONE/SALMETEROL 232-14 (AIRDUO RespiCLICK) IH SCH (22:31)
[2022-05-03 22:34] LABS: CREATINE KINASE MB 1.5 NG/ML (<6.6)
--- NOTE | 2022-05-03 22:38 | ED Chest Pain ---
General Chief Complaint: Chest Pain Stated Complaint: CHEST PAIN Nursing Triage Note: PATIENT ARRIVED VIA EMS STATING THAT CHEST PAIN BEGAN 1 HR AGO WHILE HE WAS SITTING AND WATCHING TV. HE STATES THAT HE TOOK ASA X4 AND NITRO SL X1. Source: patient (LIMITED HISTORIAN), EMS, old records History of Present Illness Date Seen by Provider: May 03, 2022 Time Seen by Provider: 21:53 Initial Comments PT ARRIVES VIA EMS FROM HOME C/O CHEST PAIN X 1 HOUR. RATES PAIN 8/10 PT WAS SITTING AND WATCHING TV WHEN PAIN BEGAN TOOK 4 BABY ASPIRIN AND NTG X 1 AT HOME, WITHOUT RELIEF NITROPASTE WAS APPLIED BY EMS. PT STATES IT IS NOT HELPING. SLIGHT SHORTNESS OF BREATH NO NAUSEA/VOMITING NO SWELLING IN LEGS/ FEET OR PAIN IN CALVES NO SWEATS NO RADIATION OF PAIN NOTHING WORSENS OR IMPROVES PAIN THIS IS EXACTLY THE SAME HIS CHRONIC CHEST PAIN COMPLAINTS. PT HAS TAKEN HIS MORNING PILLS, BUT NOT EVENING PILLS PT USED HIS ALBUTEROL INHALER X 1 THIS MORNING, NONE SINCE DENIES ANY CHANGES IN MEDICATIONS OR OTHER MISSED DOSES OF MEDICATIONS. P[T WITH A MULTITUDE OF VISITS HERE FOR THIS PROBLEM, WELL VARIOUS OTHER COMPLAINTS. HE ALWAYS REPORTS NO RELIEF WITH NTG, AND WANTS MORPHINE FOR HIS CHRONIC CHEST PAIN PT DOES HAVE AN EXTENSIVE CARDIOVASCULAR HISTORY WITH CABG AND MULTIPLE STENTS TO HEART, LEGS AND CAROTID ENDARTERECTOMY. HE IS CURRENTLY ON ASPIRIN AND PLAVIX, RANEXA, ISOSORBIDE, COREG AND AMLODIPINE HE ALSO HAS HISTORY OF COPD O2 DEPENDENT AT 5L/NC CONTINOUSLY. PT HAS HAD COVID VACCINE X 3. NO FLU VACCINE. PCP: [facility]--DR. BOUCHER ( PT USED TO SEE DR. 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 CASTILLO Allergies and Home Medications Allergies Coded Allergies: budesonide (Verified Allergy, Severe, angioedema, 12/06/18) formoterol (Verified Allergy, Severe, angioedema, pt has rec Albuterol in the past, 01/23/22) tetanus toxoid, adsorbed (Verified Allergy, Mild, hives, 12/06/18) DOROTA Inhibitors (Verified Allergy, Unknown, Angioedema, 12/06/18) Patient Home Medication List Home Medication List Reviewed: Yes Albuterol Sulfate (Ventolin Hfa) 1 Puff Puff, 2 PUFF IH PRN PRN for SHORTNESS OF BREATH, (Reported) Entered as Reported by: GAVIN RUBIO on 03/18/18 0737 Amlodipine Besylate (Amlodipine Besylate) 5 Mg Tablet, 5 MG PO DAILY, (Reported) Entered as Reported by: CELSO SZYMANSKI on 02/15/18 035 Aripiprazole (Aripiprazole) 30 Mg Tablet, 30 MG PO DAILY, (Reported) Entered as Reported by: JEFF LEWIS on 06/29/20 1249 Aspirin (Aspirin) 81 Mg Tab.chew, 81 MG PO DAILY, (Reported) Entered as Reported by: JEFF LEWIS on 05/01/20 1344 Atorvastatin Calcium (Atorvastatin Calcium) 80 Mg Tablet, 80 MG PO DAILY, (Reported) Entered as Reported by: GAVIN RUBIO on 03/18/1837 Bupropion HCl (Bupropion HCl) 75 Mg Tablet, 75 MG PO DAILY, (Reported) Entered as Reported by: CELSO SZYMANSKI on 02/15/18349 Carvedilol (Carvedilol) 6.25 Mg Tablet, 6.25 MG PO DAILY, (Reported) Entered as Reported by: CELSO MARLOW on 07/25/17 1535 Clopidogrel Bisulfate (Clopidogrel) 75 Mg Tablet, 75 MG PO DAILY, (Reported) Entered as Reported by: JEFF LEWIS on 11/08/19 1527 Isosorbide Mononitrate (Isosorbide Mononitrate ER) 30 Mg Tab.er.24h, 30 MG PO DAILY, (Reported) Entered as Reported by: PASHA GALEANA on 07/25/16 0945 Mirtazapine (Mirtazapine) 30 Mg Tablet, 30 MG PO HS, (Reported) Entered as Reported by: CELSO SZYMANSKI on 02/15/18349 Montelukast Sodium (Montelukast Sodium) 10 Mg Tablet, 10 MG PO DAILY, (Reported) Entered as Reported by: JEFF LEWIS on 06/29/20 1249 Nitroglycerin (Nitroglycerin) 0.4 Mg Tab.subl, 0.4 MG SL UD PRN for CHEST PAIN (ANGINA), (Reported) Entered as Reported by: HERON BAEZ on 01/28/22 1309 [place] 3 Polyunsat Fatty Acids (Fish Oil 1,000 mg Capsule) 340 Mg-1,000 Mg Cap, 1,000 MG PO DAILY, (Reported) Entered as Reported by: HERON BAEZ on 01/28/22 1308 Pantoprazole Sodium (Pantoprazole Sodium) 40 Mg Tablet.dr, 40 MG PO DAILY, (Reported) Entered as Reported by: HERON BAEZ on 01/28/22 1308 Prednisone (Prednisone) 10 Mg Tab.ds.pk, 10 MG PO DAILY Prescribed by: JUAREZ TOLENTINO on 01/29/22 0801 Ranolazine (Ranexa) 1,000 Mg Tab.er.12h, 1,000 MG PO DAILY, (Reported) Entered as Reported by: HERON BAEZ on 01/28/22 1310 Sertraline HCl (Sertraline HCl) 100 Mg Tablet, 200 MG PO DAILY, (Reported) Entered as Reported by: JEFF LEWIS on 11/08/19 1527 Review of Systems Review of Systems Constitutional: no symptoms reported EENTM: No Symptoms Reported Respiratory: See HPI Cardiovascular: See HPI Gastrointestinal: No Symptoms Reported; Denies Abdominal Pain, Denies Diarrhea, Denies Nausea, Denies Rectal Bleeding, Denies Vomiting Genitourinary: No Symptoms Reported Musculoskeletal: no symptoms reported Skin: no symptoms reported Psychiatric/Neurological: No Symptoms Reported Endocrine: No Symptoms Reported Hematologic/Lymphatic: No Symptoms Reported Past Stonude-Hjwnak-Pojsgo Hx Patient Social History Tobacco Use?: Yes Tobacco type used: Cigarettes Smoking Status: Former Smoker Substance use?: No Alcohol Use?: Yes (IN THE PAST) Immunizations Up To Date Tetanus Booster (TDap): Unknown PED Vaccines UTD: No First/Initial COVID19 Vaccinat: 2020 Second COVID19 Vaccination Guillermo: 2020 Third COVID19 Vaccination Date: 2020 Seasonal Allergies Seasonal Allergies: No Past Medical History Surgery/Hospitalization HX: [place] 2005- bypass and stenting, COPD, HTN, cateract August 2021 Surgeries: Yes (LEFT INGUINAL HERNIA;CABG WITH STENTS IN HEART AND LEG, R carotid endartect) Abdominal, Cardiac, CABG, Coronary Stent, Eye Surgery, Tonsillectomy, Vascular Surgery Respiratory: Yes (WEARS O2 AT 5L/NC CONTINUOUSLY. RUL PULMONARY NODULE) Pneumonia, Chronic Bronchitis, COPD Currently Using CPAP: No Currently Using BIPAP: No Cardiac: Yes (STENT X1/ANGIO L EXT ILIAC ART;CABG/STENT X4;CAROTID DZ;CHF;CARDIAC ARREST) Coronary Artery Disease, Deep Vein Thrombosis, Heart Attack, High Cholesterol, Hypertension, Peripheral Vascular Neurological: Yes Stroke Reproductive Disorders: No Sexually Transmitted Disease: No HIV/AIDS: No Genitourinary: No Gastrointestinal: Yes Abdominal Hernia, Gastroesophageal Reflux, Diverticulosis, Ulcer Musculoskeletal: Yes Degenerate Disk Disease, Arthritis, Chronic Back Pain Endocrine: No HEENT: No Loss of Vision: Denies Hearing Impairment: Denies Cancer: No Psychosocial: Yes Sleep Difficulties, Anxiety, Schizophrenia, Depression Integumentary: No Blood Disorders: No Adverse Reaction/Blood Tranf: No Family Medical History Diabetes mellitus 19 MOTHER FH: heart disease 19 FATHER Heart Disease, Diabetes SOCIAL HX: -HX OF ALCOHOL ABUSE--CLAIMS HE QUIT YEARS AGO -DENIES DRUG USE -SMOKED 2-3 PPD--QUIT 2017 PSH: -CABG--1 VESSEL BYPASS -CARDIAC CATHS AND STENTS X 4, WITH ANGIOPLASTIES--LAST CARDIAC CATH 03/2018--PATENT STENT TO PROXIMAL LAD TO FIRST DIAGONAL, COMPLETE OCCLUSION OF MID LAD AND TO VEIN GRAFT TO LAD; EF 45-50%--NO INTERVENTION DONE AT THAT TIME AND FINDINGS WERE THE SAME THOSE FOUND ON CARDIAC CATH IN 2014 -ANGIOPLASTY AND STENT X 1 TO LEFT LEG/EXTERNAL ILIAC ARTERY 02/2017 -RIGHT CAROTID ENDARTERECTOMY 05/28/[address] BLANKENSHIP AT [facility] -LEFT INGUINAL HERNIA REPAIR -TONSILLECTOMY ADDITIONAL PMH: -HX OF CARDIAC ARREST -CAROTID DISEASE--SEVERE ON RIGHT -RBBB ; LAFB Physical Exam Vital Signs Vital Signs - First Documented 05/03/22 21:53 Temp 36.3 Pulse 93 Resp 22 B/P (MAP) 131/71 (91) Pulse Ox 99 O2 Delivery Nasal Cannula O2 Flow Rate 4.00 FiO2 99 Capillary Refill : Less Than 3 Seconds Height, Weight, BMI Height: 5'8.00" Weight: 174lbs. 0.0oz. [id number]; 25.00 BMI Method:Stated General Appearance: No Apparent Distress, WD/WN, Other (VERY FLAT AFFECT AND SOMEWHAT LETHARGIC--BUT IS PT'S NORMAL BASELINE. . DOES NOT APPEAR TO BE IN ANY DISCOMFORT OR DISTRESS. ) HEENT: Pale Conjunctivae (L), Pale Conjunctivae (R) Neck: Normal Inspection Respiratory: No Accessory Muscle Use, No Respiratory Distress, Wheezing (DIFFUSE EXPIRATORY WHEEZING BILATERALLY) Cardiovascular: Regular Rate, Rhythm, No Edema, No JVD, No Murmur, Normal Peripheral Pulses Gastrointestinal: Non Tender, Soft Extremity: Normal Capillary Refill, Normal Inspection, Normal Range of Motion, Non Tender, No Calf Tenderness, No Pedal Edema Neurologic/Psychiatric: Alert, Oriented x3, No Motor/Sensory Deficits, regulatory and compliance technician II- XII Norm as Tested Skin: Warm/Dry, Pallor Progress/Results/Core Measures Results/Orders Lab Results Laboratory Tests Test 05/03/22 21:57 05/03/22 22:04 Range/Units White Blood Count 4.7 4.3-11.0 10^3/uL Red Blood Count 2.91 L 4.30-5.52 10^6/uL Hemoglobin 7.6 L 13.3-17.7 g/dL Hematocrit 27 L 40-54 % Mean Corpuscular Volume 94 80-99 fL Mean Corpuscular Hemoglobin 26 25-34 pg Mean Corpuscular Hemoglobin Concent 28 L 32-36 g/dL Red Cell Distribution Width 13.5 10.0-14.5 % Platelet Count 137 130-400 10^3/uL Mean Platelet Volume 9.6 9.0-12.2 fL Immature Granulocyte % (Auto) 0 % Neutrophils (%) (Auto) 50 42-75 % Lymphocytes (%) (Auto) 35 12-44 % Monocytes (%) (Auto) 12 0-12 % Eosinophils (%) (Auto) 2 0-10 % Basophils (%) (Auto) 0 0-10 % Neutrophils # (Auto) 2.3 1.8-7.8 10^3/uL Lymphocytes # (Auto) 1.6 1.0-4.0 10^3/uL Monocytes # (Auto) 0.6 0.0-1.0 10^3/uL Eosinophils # (Auto) 0.1 0.0-0.3 10^3/uL Basophils # (Auto) 0.0 0.0-0.1 10^3/uL Immature Granulocyte # (Auto) 0.0 0.0-0.1 10^3/uL Prothrombin Time 12.6 12.2-14.7 SEC INR Comment 0.9 0.8-1.4 Activated Partial Thromboplast Time 34 24-35 SEC D-Dimer 0.57 H 0.00-0.49 UG/ML Sodium Level 140 135-145 MMOL/L Potassium Level 4.4 3.6-5.0 MMOL/L Chloride Level 93 L 98-107 MMOL/L Carbon Dioxide Level 40 H 21-32 MMOL/L Anion Gap 7 5-14 MMOL/L Blood Urea Nitrogen 10 7-18 MG/DL Creatinine 0.81 0.60-1.30 MG/DL Estimat Glomerular Filtration Rate 97 BUN/Creatinine Ratio 12 Glucose Level 88 70-105 MG/DL Calcium Level 9.1 8.5-10.1 MG/DL Corrected Calcium 9.3 8.5-10.1 MG/DL Magnesium Level 1.6 1.6-2.4 MG/DL Total Bilirubin 0.2 0.1-1.0 MG/DL Aspartate Amino Transf (AST/SGOT) 19 5-34 U/L Alanine Aminotransferase (ALT/SGPT) 20 0-55 U/L Alkaline Phosphatase 86 40-136 U/L Total Creatine Kinase 65 30-200 U/L Creatine Kinase MB 1.5 <6.6 NG/ML Myoglobin 29.7 10.0-92.0 NG/ML Troponin I < 0.028 <0.028 NG/ML B-Type Natriuretic Peptide 52.4 <100.0 PG/ML Total Protein 6.4 6.4-8.2 GM/DL Albumin 3.7 3.2-4.5 GM/DL Amylase Level 49 25-125 U/L Lipase 37 8-78 U/L Influenza Type A (RT-PCR) Not Detected Not Detecte Influenza Type B (RT-PCR) Not Detected Not Detecte SARS-CoV-2 RNA (RT-PCR) Not Detected Not Detecte My Orders Orders - DEBBIE ESPINOSA DO Cbc With Automated Diff (05/03/22 21:54) Magnesium (05/03/22 21:54) Chest 1 View, Ap/Pa Only (05/03/22 21:54) Ekg Tracing (05/03/22 21:54) Comprehensive Metabolic Panel (05/03/22 21:54) Myoglobin Serum (05/03/22 21:54) Protime With Inr (05/03/22 21:54) Partial Thromboplastin Time (05/03/22 21:54) O2 (05/03/22 21:54) Monitor-Rhythm Ecg Trace Only (05/03/22 21:54) Ed Iv/Invasive Line Start (05/03/22 21:54) Creatine Kinase (05/03/22 21:54) Creatine Kinase Mb (05/03/22 21:54) Lipase (05/03/22 21:54) Amylase (05/03/22 21:54) Bnp Negrita (05/03/22 21:54) Fibrin Degradation Products (05/03/22 21:54) Troponin I Negrita (05/03/22 21:54) Covid 19 Inhouse Test (05/03/22 22:06) Influenza A And B By Pcr (05/03/22 22:06) Isolation Central Supply Req (05/03/22 22:06) Fluticasone/Salmeterol 232-14 (Airduo Re (05/04/22 08:00) Fluticasone/Salmeterol 113-14 (Airduo Re (05/03/22 22:27) Medications Given in ED Current Medications Medications Dose Ordered Sig/Shira Route Start Time Stop Time Status Last Admin Dose Admin Salmeterol Xinafoate/ Fluticasone 1 each STK-MED ONCE IH 05/03/22 22:27 05/03/22 22:31 DC 05/03/22 22:32 1 EACH Vital Signs/I&O 05/03/22 05/03/22 05/03/22 21:53 21:53 22:33 Temp 36.3 Pulse 93 Resp 22 B/P (MAP) 131/71 (91) Pulse Ox 99 99 100 O2 Delivery Nasal Cannula Nasal Cannula Nasal Cannula O2 Flow Rate 4.00 4.00 5.00 FiO2 99 05/04/22 00:00 Intake Total 100 ml Balance 100 ml Blood Pressure Mean: 91 Progress Progress Note : Progress Note PLACED IN ISOLATION ROOM PPE WORN COVID AND FLU TESTING DONE GIVEN INHALER TREATMENT WITH RESOLUTION OF WHEEZING. NO COMPLAINTS OF CHEST PAIN FOR THE REMAINDER OF ER STAY NO DETERIORATION IN PT'S CONDITION DURING ER STAY. Initial ECG Impression Date: May 03, 2022 Initial ECG Impression Time: 21:59 Initial ECG Rate: 80 Initial ECG Rhythm: Normal Sinus (IVCD;LAFB) Initial ECG Comparisson: Unchanged Diagnostic Imaging Comments CXR--NO ACUTE PROCESS, PENDING RADIOLOGIST REVIEW Reviewed: Reviewed by In Departure Communication (Admissions) [id number]--SPOKE WITH DR. SAL, HOSPITALIST, ACCEPTS PT FOR ADMIT Impression Primary Impression: Chest pain Additional Impressions: COPD exacerbation Anemia CAD WITH CABG AND STENTS Disposition: ADMITTED INPATIENT Condition: Stable Admissions Decision to Admit Reason: Admit from ER (General) Decision to Admit/Date: May 03, 2022 Time/Decision to Admit Time: 22:50 DEBBIE ESPINOSA DO May 03, 2022 22:38
[2022-05-03] MEDS ORDERED: PANTOPRAZOLE 40 MG (PROTONIX) VIAL IV ONE (23:00)
[2022-05-04] VITALS (24 sets, daily range): BP systolic 102–133; BP diastolic 54–98
[2022-05-04] MEDS ORDERED: PATIENT MAY USE OWN MEDS, ALL PO SCH
--- NOTE | 2022-05-04 00:11 | Tele-ICU Consult ---
Progress Note (Tele-ICU Physician, consultation) Available chart/ vitals / labs / Images reviewed H&P is from ER notes Patient's information available about PMH, allergy reviewed in EMR. ROS as per chart and RN report Video assessment done using teleICU camera, rest of exam as per RN Consultants: Cardiology Hospital course: New admit for unstable angina, anemia A/P Chest pain Work up per Marketing Secretary Afebrile COVID/Flu negative Trop negative Lines: PIV Thakkar: N/A OG: N/A Nutrition: NPO Analgesia: N/A VTE Prophylaxis: Per Dr. Beck Stress Ulcer Prophylaxis: N/A Plans in collaboration with bedside consultants and Primary MD. RN to reach out if any questions or concerns No critical care needs at this time. JEREL CRUZ MD May 04, 2022 00:11
[2022-05-04] MEDS ORDERED: morphine INJ 4 MG/ML 1 ML (VIAL/SYRINGE) IV PRN (00:15)
[2022-05-04] MEDS ORDERED: NITROGLYCERIN 0.4 MG SL TABS BTL 25'S SL PRN (00:15)
[2022-05-04] MEDS ORDERED: ONDANSETRON 4 MG/2 ML (SDV) Z0FRAN IVP PRN (00:15)
[2022-05-04] MEDS ORDERED: CATHETER FLUSH 10 ML SYR IVP PRN (00:15)
[2022-05-04] MEDS ORDERED: RT-ALBUTEROL SULF 2.5 MG/3 ML PRE-MIX VIAL INH PRN (00:45)
[2022-05-04] MEDS ORDERED: NS IV 500 ML 500 ML IV SCH ×2 (02:15→18:15)
[2022-05-04] MEDS: RT-ALBUTEROL SULF 2.5 MG/3 ML PRE-MIX VIAL INH SCH ×4 (02:30→20:20)
[2022-05-04] MEDS: morphine INJ 4 MG/ML 1 ML (VIAL/SYRINGE) IVP PRN ×2 (05:19→13:56)
[2022-05-04 05:30] LABS: BASOPHILS % (AUTO) 0 % (0-10); EOSINOPHILS # (AUTO) 0.1 10^3/uL (0.0-0.3); EOSINOPHILS % (AUTO) 2 % (0-10); HEMOGLOBIN 7.9 g/dL (13.3-17.7); MONOCYTES # (AUTO) 0.4 10^3/uL (0.0-1.0)
[2022-05-04 05:32] LABS: HEMATOCRIT 28 % (40-54); LYMPHOCYTES # (AUTO) 1.4 10^3/uL (1.0-4.0); LYMPHOCYTES % (AUTO) 38 % (12-44); MEAN CORPUSCULAR HEMOGLOBIN 26 pg (25-34); MEAN CORPUSCULAR HGB CONC 29 g/dL (32-36); MEAN CORPUSCULAR VOLUME 92 fL (80-99); MEAN PLATELET VOLUME 10.1 fL (9.0-12.2); MONOCYTES % (AUTO) 11 % (0-12); NEUTROPHILS # (AUTO) 1.8 10^3/uL (1.8-7.8); NEUTROPHILS % (AUTO) 49 % (42-75); PLATELET COUNT 131 10^3/uL (130-400); WHITE BLOOD COUNT 3.7 10^3/uL (4.3-11.0)
[2022-05-04 05:52] LABS: BUN/CREATININE RATIO 11; CALCIUM 8.5 MG/DL (8.5-10.1); CARBON DIOXIDE 37 MMOL/L (21-32); CHLORIDE 95 MMOL/L (98-107); GFR ESTIMATED 98; GLUCOSE 98 MG/DL (70-105); POTASSIUM 4.4 MMOL/L (3.6-5.0); SODIUM 142 MMOL/L (135-145)
[2022-05-04] MEDS: CATHETER FLUSH 10 ML SYR IVP SCH ×3 (06:00→22:00)
--- NOTE | 2022-05-04 06:49 | Diagnostic Imaging Report ---
EXAMINATION: Chest 1 view HISTORY: Chest pain COMPARISON: None available. FINDINGS: Heart size and pulmonary vasculature are normal. Surgical changes from CABG. The lungs are clear without consolidation, pleural effusion, or pneumothorax. The osseous structures are intact. IMPRESSION: 1. No acute radiographic abnormality in the chest. Dictated by: Dictated on workstation # [id number]
[2022-05-04] MEDS ORDERED: FLU QUAD HIGH DOSE 240 MCG/0.7 ML 2022-23 (FLUZONE) IM ONE (07:00)
[2022-05-04 07:58] LABS: HEMOGLOBIN 8.1 g/dL (13.3-17.7)
[2022-05-04] MEDS: ASPIRIN E.C. 81 MG (ECOTRIN) TAB PO SCH (08:31)
[2022-05-04] MEDS: PANTOPRAZOLE 40 MG (PROTONIX) VIAL IV SCH (08:32)
--- NOTE | 2022-05-04 09:44 | Tele-ICU Progress Note ---
Progress Note video rounds completed 66 y/o male admitted with CP and anemia Received 1 unit PRBC EKG and troponins negative for ACS PLAN: await cardiology eval Focused Exam Height, Weight, BMI Height: 5'8.00" Weight: 174lbs. 0.0oz. 78.675489gz; 26.45 BMI Method:Stated Labs Laboratory Tests 05/03/22 21:57 05/04/22 05:14 05/04/22 07:42 Results Results/Procedures Labs Laboratory Tests 05/03/22 21:57 05/04/22 05:14 05/04/22 07:42 Patient resulted labs reviewed. Results Labs Labs Laboratory Tests 05/03/22 21:57: White Blood Count 4.7, Red Blood Count 2.91L, Hemoglobin 7.6L, Hematocrit 27L, Mean Corpuscular Volume 94, Mean Corpuscular Hemoglobin 26, Mean Corpuscular Hemoglobin Concent 28L, Red Cell Distribution Width 13.5, Platelet Count 137, Mean Platelet Volume 9.6, Immature Granulocyte % (Auto) 0, Neutrophils (%) (Auto) 50, Lymphocytes (%) (Auto) 35, Monocytes (%) (Auto) 12, Eosinophils (%) (Auto) 2, Basophils (%) (Auto) 0, Neutrophils # (Auto) 2.3, Lymphocytes # (Auto) 1.6, Monocytes # (Auto) 0.6, Eosinophils # (Auto) 0.1, Basophils # (Auto) 0.0, Immature Granulocyte # (Auto) 0.0, Prothrombin Time 12.6, INR Comment 0.9, Activated Partial Thromboplast Time 34, D-Dimer 0.57H, Sodium Level 140, Potassium Level 4.4, Chloride Level 93L, Carbon Dioxide Level 40H, Anion Gap 7, Blood Urea Nitrogen 10, Creatinine 0.81, Estimat Glomerular Filtration Rate 97, BUN/Creatinine Ratio 12, Glucose Level 88, Calcium Level 9.1, Corrected Calcium 9.3, Magnesium Level 1.6, Total Bilirubin 0.2, Aspartate Amino Transf (AST/SGOT) 19, Alanine Aminotransferase (ALT/SGPT) 20, Alkaline Phosphatase 86, Total Creatine Kinase 65, Creatine Kinase MB 1.5, Myoglobin 29.7, Troponin I < 0.028, B-Type Natriuretic Peptide 52.4, Total Protein 6.4, Albumin 3.7, Amylase Level 49, Lipase 37 05/03/22 22:04: Influenza Type A (RT-PCR) Not Detected, Influenza Type B (RT-PCR) Not Detected, SARS-CoV-2 RNA (RT-PCR) Not Detected 05/04/22 01:00: Troponin I < 0.028 05/04/22 05:14: White Blood Count 3.7L, Red Blood Count 2.99L, Hemoglobin 7.9L, Hematocrit 28L, Mean Corpuscular Volume 92, Mean Corpuscular Hemoglobin 26, Mean Corpuscular Hemoglobin Concent 29L, Red Cell Distribution Width 13.8, Platelet Count 131, Mean Platelet Volume 10.1, Immature Granulocyte % (Auto) 0, Neutrophils (%) (Auto) 49, Lymphocytes (%) (Auto) 38, Monocytes (%) (Auto) 11, Eosinophils (%) (Auto) 2, Basophils (%) (Auto) 0, Neutrophils # (Auto) 1.8, Lymphocytes # (Auto) 1.4, Monocytes # (Auto) 0.4, Eosinophils # (Auto) 0.1, Basophils # (Auto) 0.0, Immature Granulocyte # (Auto) 0.0, Sodium Level 142, Potassium Level 4.4, Chloride Level 95L, Carbon Dioxide Level 37H, Anion Gap 10, Blood Urea Nitrogen 9, Creatinine 0.80, Estimat Glomerular Filtration Rate 98, BUN/Creatinine Ratio 11, Glucose Level 98, Calcium Level 8.5, Troponin I < 0.028, Percent Immature Platelet Fraction 4.6 05/04/22 07:42: Hemoglobin 8.1L, Hematocrit 28L JING KNOTT MD May 04, 2022 09:44
--- NOTE | 2022-05-04 12:43 | Short Stay Summary-Hospitalist ---
ANAMIKA ALMARAZ A MED STUDENT 05/04/22 1243: History of Present Illness HPI/Chief Complaint Ethan is a 66 yo male who was admitted to cardiac step down from ED for chest pain. Pt has extensive cardiac hx with CABG with multiple stents, COPD on 4L NC, HTN, HLD, hx of DVT, GERD, diverticulosis. Pt reported on 05/03 at 2000 he started to have chest pain while watching tv, so he took four baby aspirin and nitroglycerin with no relief. EMS brought him to the hospital where he had cardiac work up that was unremarkable. Troponin negativex3, BNP neg, D-dimer o nly slightly elevated, CXR wnl. Pt was found to be anemic and required 1 unit of packedRBCs during stay. Iron studies/B12/Folate still pending. Denied hematuria, hematochezia, dark tarry stools, epistaxis or any other bleeding. BUN was wnl, so unlikely to be GI bleed. Pt remained on baseline level of oxygen and reported he was ready to go home because he was back to his normal self. Pt medically s table for d/c on 05/04. Advised pt to f/u with PCP for results of iron/b12/folate studies and further evaluation of anemia. Source: patient Exam Limitations: no limitations Date Seen 05/04/22 Time Seen by a Provider: 08:00 Attending Physician Jose Manjarrez MD PCP Admitting Physician: Rohit Sal MD Attending Physician: Rohit Sal MD Referring Physician Date of Admission May 03, 2022 at 22:50 Home Medications & Allergies Home Medications Reviewed patient Home Medication Reconciliation performed by pharmacy medication reconciliations automation technician and/or nursing. Patients Allergies have been reviewed. Allergies Allergies Coded Allergies budesonide (Verified Allergy, Severe, angioedema, 12/06/18) formoterol (Verified Allergy, Severe, angioedema, pt has rec Albuterol in the past, 01/23/22) tetanus toxoid, adsorbed (Verified Allergy, Mild, hives, 12/06/18) DOROTA Inhibitors (Verified Allergy, Unknown, Angioedema, 12/06/18) Past Medical/Social/Family Hx Patient Social History Tobacco Use?: Yes Tobacco type used: Cigarettes Smoking Status: Former Smoker Use of E-Cig and/or Vaping dev: No Substance use?: No Alcohol Use?: Yes (IN THE PAST) Pt stated abuse/neglect: No Immunizations Up To Date Influenza Vaccine Up-to-Date: No; Not Current First/Initial COVID19 Vaccinat: NOVEMBER 2020 Second COVID19 Vaccination Guillermo: DECEMBER 2020 Tetanus Booster (TDap): Unknown Hepatitis A: No Hepatitis B: No TB Skin Test: None Date of Pneumonia Vaccine: Apr 26, 2020 Current Status Advance Directives: Yes Advance Directive Location: Home Communicates: Verbally Primary Language: Bhutanese Preferred Spoken Language: Bhutanese Is interpretation needed?: No Sensory deficits: Vision impairment Implanted or Applied Medical D: Stents Past Medical History Past Medical History 1. CAD with history of CABG 2. Tobaccoism 3. Severe COPD 4. HTN 5. Anxiey 6. Chronic Unstable Angina 7. Depression Past Surgical History 1. CABG 2. Multiple Cardiac Cath. 3. Tonsillectomy 4. Hernia Repair Family Medical History Family Hx: SOCIAL HX: -HX OF ALCOHOL ABUSE--CLAIMS HE QUIT YEARS AGO -DENIES DRUG USE -SMOKED 2-3 PPD--QUIT 2017 PSH: -CABG--1 VESSEL BYPASS -CARDIAC CATHS AND STENTS X 4, WITH ANGIOPLASTIES--LAST CARDIAC CATH 03/2018--PATENT STENT TO PROXIMAL LAD TO FIRST DIAGONAL, COMPLETE OCCLUSION OF MID LAD AND TO VEIN GRAFT TO LAD; EF 45-50%--NO INTERVENTION DONE AT THAT TIME AND FINDINGS WERE THE SAME THOSE FOUND ON CARDIAC CATH IN 2014 -ANGIOPLASTY AND STENT X 1 TO LEFT LEG/EXTERNAL ILIAC ARTERY 02/2017 -RIGHT CAROTID ENDARTERECTOMY 05/28/[address] BLANKENSHIP AT [facility] -LEFT INGUINAL HERNIA REPAIR -TONSILLECTOMY ADDITIONAL PMH: -HX OF CARDIAC ARREST -CAROTID DISEASE--SEVERE ON RIGHT -RBBB ; LAFB Review of Systems Constitutional: No chills, No fever EENTM: No blurred vision, No double vision Respiratory: No cough; short of breath Cardiovascular: No chest pain, No palpitations Gastrointestinal: No diarrhea, No hematemesis, No melena, No nausea, No vomiting Genitourinary: No dysuria, No frequency, No hematuria Musculoskeletal: No back pain, No joint pain Skin: No change in color, No lesions, No lumps Psychiatric/Neurological: Denies Headache, Denies Numbness Physical Exam Physical Exam Vital Signs Vital Signs - First Documented 05/03/22 21:53 Temp 36.3 Pulse 93 Resp 22 B/P (MAP) 131/71 (91) Pulse Ox 99 O2 Delivery Nasal Cannula O2 Flow Rate 4.00 FiO2 99 Capillary Refill : Less Than 3 Seconds Height, Weight, BMI Height: 5'8.00" Weight: 174lbs. 0.0oz. 78.355576mh; 26.45 BMI Method:Stated General Appearance: No Apparent Distress, WD/WN, Other (VERY FLAT AFFECT AND SOMEWHAT LETHARGIC--BUT IS PT'S NORMAL BASELINE. . DOES NOT APPEAR TO BE IN ANY DISCOMFORT OR DISTRESS. ) HEENT: Pale Conjunctivae (L), Pale Conjunctivae (R) Neck: Full Range of Motion, Normal Inspection Respiratory: Chest Non Tender, No Accessory Muscle Use, No Respiratory Distress, Wheezing (diffuse expiratory wheezing bilaterally) Cardiovascular: Regular Rate, Rhythm, No Murmur Gastrointestinal: Normal Bowel Sounds, Non Tender, Soft Extremity: Normal Capillary Refill, Normal Inspection, Normal Range of Motion, Non Tender, No Pedal Edema Neurologic/Psychiatric: Alert, Oriented x3, Normal Mood/Affect Skin: Warm/Dry, Pallor Results Results/Procedures Labs Laboratory Tests 05/03/22 21:57 05/04/22 05:14 05/04/22 07:42 Patient resulted labs reviewed. Short Stay Diagnosis Discharge Diagnosis-Short Stay Admission Diagnosis Chest pain and anemia Final Discharge Diagnosis Chest pain and anemia Conclusion Plan F/u with primary care physician and gem carver Diagnosis/Problems Diagnosis/Problems (1) Chest pain Onset Date: ~ 05/03/2022 Status: Resolved Assessment & Plan: F.u with cardiology Resume home medications Resolution Date/Time: 10/14/17 @ 10:38 (2) CAD (coronary artery disease) Status: Chronic (3) HTN (hypertension) Status: Chronic Assessment & Plan: Resume home medications (4) COPD (chronic obstructive pulmonary disease) Status: Chronic Assessment & Plan: On baseline level of oxygen, continue this upon discharge (5) Anemia Status: Acute Assessment & Plan: Iron/b12/folate studies pending F/u with primary care physician for further evaluation Clinical Quality Measures AMI/AHF: ASA po Prior to arrival: Yes ROHIT SAL MD 05/04/22 1343: History of Present Illness Source: patient Exam Limitations: no limitations Time Seen by a Provider: 11:30 Past Medical/Social/Family Hx Family Medical History Family Hx: No pertinent history Results Results/Procedures Imaging: Reviewed Imaging Report Short Stay Diagnosis Conclusion Plan Admitted with chest pain. Cardiology consulted and assisted with his care. Recommended conservative medical management. Continued on home meds. Chest pain resolved. He was also found to have acute on chronic anemia with hemoglobin slightly lower than previously known baseline. He was transfused one unit PRBC due to his chest pain. His hemoglobin improved. He has not had hematochezia, melena, hematuria, epistaxis, or any other evidence of blood loss. Anemia workup was pending at the time of discharge. He should follow up with his PCP for further workup evaluation. He has had a colonoscopy in the past but may need another if he is found to be iron deficient. He was discharged home in stable condition. Diagnosis/Problems Diagnosis/Problems (1) Chest pain Onset Date: ~ 05/03/2022 Status: Resolved Assessment & Plan: F.u with cardiology Resume home medications Resolution Date/Time: 10/14/17 @ 10:38 (2) CAD (coronary artery disease) Status: Chronic (3) HTN (hypertension) Status: Chronic Assessment & Plan: Resume home medications (4) COPD (chronic obstructive pulmonary disease) Status: Chronic Assessment & Plan: On baseline level of oxygen, continue this upon discharge (5) Anemia Status: Acute Assessment & Plan: Iron/b12/folate studies pending F/u with primary care physician for further evaluation Supervisory-Addendum Brief Verification & Attestation Participated in pt care: history, MDM, physical Personally performed: exam, history, MDM, supervision of care Care discussed with: Medical Student Procedures: n/a Results interpretation: Verified all documentation A medical student performed and documented this service in my presence. I reviewed and verified all information documented by the medical student and made modifications to such information, when appropriate. I personally performed the physical exam and medical decision making. ANAMIKA ALMARAZ MED STUDENT May 04, 2022 12:43 ROHIT SAL MD May 04, 2022 13:43
--- NOTE | 2022-05-04 12:59 | Consultation-Cardiology ---
HPI-Cardiology Cardiology Consultation: Date of Consultation 05/04/22 Time Seen by a Provider: 11:45 Date of Admission Attending Physician Jose Manjarrez MD Admitting Physician Admitting Physician: Lexi Beck MD Attending Physician: Lexi Beck MD Consulting Physician JENS CHAVEZ MD, MA, FACP, FACC, [facility], CCDS Physician requesting consult: Dr Beck Primary vocational ed instructor: Dr Carrion HPI: Chief Complaint: Chest discomfort 66 yo man with chronic, intermittent chest pain admitted through the ER to Dr Beck last night. Reports had severe (8/10) chest pain that lasted several hours. No radiation. Present across the chest. Not associated with other symptoms. Similar to the chest pains that he has been having intermittently for several years and for which he has gone cardiac w/u on multiple occasions. No relief with nitro. Relieved with iv morphine. Currently feels well. Has chronic, exertional shortness of breath, unchange. Denies swelling or palp or syncope. Chronic malaise. No n/v/d Review of Systems-Cardiology Review of Systems Constitutional: As described under HPI Eyes: No vision change Ears/Nose/Throat: No ear discharge, No nasal drainage, No recent hearing loss Respiratory: As described under HPI Cardiovascular: As described under HPI Gastrointestinal: As described under HPI Genitourinary: No dysuria, No hematuria Musculoskeletal: No back pain, No joint pain Skin: No rash, No ulcerations Psychiatric/Neurological: No seizure, No focal weakness, No syncope Hematologic: No bleeding abnormalities DHE-Vokdsf-Jhsgig Hx Patient Social History Smoking Status: Former Smoker Former smoker/When Quit: Aug 21, 2014 2nd Hand Smoke Exposure: Yes Have you traveled recently?: No Alcohol Use?: Yes (IN THE PAST) Pt feels they are or have been: No Tobacco type used: Cigarettes Immunizations Up To Date Tetanus Booster (TDap): Unknown Date of Pneumonia Vaccine: Apr 26, 2020 Date of Influenza Vaccine: Apr 26, 2020 Past Medical History PMH As described under Assessment. Family Medical History Family Medical History: Father had [place] when he was in his early 50s Family History: Diabetes mellitus 19 MOTHER FH: heart disease 19 FATHER Allergies and Home Medications Allergies Coded Allergies: budesonide (Verified Allergy, Severe, angioedema, 12/06/18) formoterol (Verified Allergy, Severe, angioedema, pt has rec Albuterol in the past, 01/23/22) tetanus toxoid, adsorbed (Verified Allergy, Mild, hives, 12/06/18) DOROTA Inhibitors (Verified Allergy, Unknown, Angioedema, 12/06/18) Patient Home Medication List Home Medication List Reviewed: Yes Albuterol Sulfate (Ventolin Hfa) 1 Puff Puff, 2 PUFF IH PRN PRN for SHORTNESS OF BREATH, (Reported) Entered as Reported by: GAVIN RUBIO on 03/18/18 07 Amlodipine Besylate (Amlodipine Besylate) 5 Mg Tablet, 5 MG PO DAILY, (Reported) Entered as Reported by: CELSO SZYMANSKI on 02/15/18 035 Aripiprazole (Aripiprazole) 30 Mg Tablet, 30 MG PO DAILY, (Reported) Entered as Reported by: JEFF LEWIS on 06/29/20 1249 Aspirin (Aspirin) 81 Mg Tab.chew, 81 MG PO DAILY, (Reported) Entered as Reported by: JEFF LEWIS on 05/01/20 1344 Atorvastatin Calcium (Atorvastatin Calcium) 80 Mg Tablet, 80 MG PO DAILY, (Reported) Entered as Reported by: GAVIN RUBIO on 03/18/1837 Bupropion HCl (Bupropion HCl) 75 Mg Tablet, 75 MG PO DAILY, (Reported) Entered as Reported by: CELSO SZYMANSKI on 02/15/18 035 Carvedilol (Carvedilol) 6.25 Mg Tablet, 6.25 MG PO DAILY, (Reported) Entered as Reported by: CELSO MARLOW on 07/25/17 1535 Clopidogrel Bisulfate (Clopidogrel) 75 Mg Tablet, 75 MG PO DAILY, (Reported) Entered as Reported by: JEFF LEWIS on 11/08/19 1527 Isosorbide Mononitrate (Isosorbide Mononitrate ER) 30 Mg Tab.er.24h, 30 MG PO DAILY, (Reported) Entered as Reported by: PASHA GALEANA on 07/25/16 0945 Mirtazapine (Mirtazapine) 30 Mg Tablet, 30 MG PO HS, (Reported) Entered as Reported by: CELSO SZYMANSKI on 02/15/18 035 Montelukast Sodium (Montelukast Sodium) 10 Mg Tablet, 10 MG PO DAILY, (Reported) Entered as Reported by: JEFF LEWIS on 06/29/20 1249 Nitroglycerin (Nitroglycerin) 0.4 Mg Tab.subl, 0.4 MG SL UD PRN for CHEST PAIN (ANGINA), (Reported) Entered as Reported by: HERON BAEZ on 01/28/22 1309 [place] 3 Polyunsat Fatty Acids (Fish Oil 1,000 mg Capsule) 340 Mg-1,000 Mg Cap, 1,000 MG PO DAILY, (Reported) Entered as Reported by: HERON BAEZ on 01/28/22 1308 Pantoprazole Sodium (Pantoprazole Sodium) 40 Mg Tablet.dr, 40 MG PO DAILY, (Reported) Entered as Reported by: HERON BAEZ on 01/28/22 1308 Prednisone (Prednisone) 10 Mg Tab.ds.pk, 10 MG PO DAILY Prescribed by: JUAREZ TOLENTINO on 01/29/22 0801 Ranolazine (Ranexa) 1,000 Mg Tab.er.12h, 1,000 MG PO DAILY, (Reported) Entered as Reported by: HERON BAEZ on 01/28/22 1310 Sertraline HCl (Sertraline HCl) 100 Mg Tablet, 200 MG PO DAILY, (Reported) Entered as Reported by: JEFF LEWIS on 11/08/19 1527 Physical Exam-Cardiology Physical Exam Vital Signs/I&O 05/04/22 05/04/22 05/04/22 05/04/22 01:00 01:00 02:00 02:30 Temp 36.8 Pulse 67 82 80 82 Resp 22 18 B/P (MAP) 106/67 (80) 113/54 (73) 123/69 Pulse Ox 99 100 99 O2 Delivery Nasal Cannula Nasal Cannula Nasal Cannula O2 Flow Rate 4.00 4.00 4.00 05/04/22 05/04/22 05/04/22 05/04/22 02:31 02:45 03:00 03:05 Temp 36.8 Pulse 83 80 79 Resp 20 25 20 B/P (MAP) 113/59 109/73 (85) 109/73 Pulse Ox 100 99 96 100 O2 Delivery Nasal Cannula Nasal Cannula Nasal Cannula Nasal Cannula O2 Flow Rate 5.00 4.00 4.00 4.00 05/04/22 05/04/22 05/04/22 05/04/22 03:25 03:45 04:00 04:05 Pulse 77 79 70 70 Resp 20 B/P (MAP) 104/64 102/69 108/69 (82) 108/69 Pulse Ox 98 97 99 99 O2 Delivery Nasal Cannula Nasal Cannula Nasal Cannula Nasal Cannula O2 Flow Rate 4.00 4.00 4.00 4.00 05/04/22 05/04/22 05/04/22 05/04/22 04:25 04:40 05:00 05:00 Temp 36.7 Pulse 73 71 82 76 Resp 20 25 20 B/P (MAP) 102/57 117/60 117/60 (79) 105/56 Pulse Ox 100 99 100 99 O2 Delivery Nasal Cannula Nasal Cannula Nasal Cannula Nasal Cannula O2 Flow Rate 4.00 4.00 4.00 4.00 05/04/22 05/04/22 05/04/22 05/04/22 06:00 07:00 07:00 07:09 Pulse 71 65 66 Resp 24 11 B/P (MAP) 105/56 (72) 103/59 (74) Pulse Ox 100 100 99 O2 Delivery Nasal Cannula Nasal Cannula Nasal Cannula O2 Flow Rate 4.00 4.00 4.00 05/04/22 05/04/22 05/04/22 05/04/22 08:00 08:00 08:00 09:00 Temp 36.4 Pulse 71 73 Resp 24 28 B/P (MAP) 112/83 (93) 116/57 (76) Pulse Ox 99 100 99 O2 Delivery Nasal Cannula Nasal Cannula Nasal Cannula O2 Flow Rate 4.00 4.00 4.00 05/04/22 11:26 Temp 36.7 05/04/22 00:00 Intake Total 1100 ml Balance 1100 ml Capillary Refill : Less Than 3 Seconds Constitutional: AAO x 3, well-developed, well-nourished HEENT: EOMI, hearing is well preserved; No xanthelasmas are seen Neck: carotid pulses are 2 + bilaterally, with good upstrokes Respiratory: No accessory muscle use; other (good, bilateral air entry, prolonged exp, exp wheezes) Cardiovascular: regular rate-rhythm, S1 and S2, systolic murmur (soft LINNEA at card base) Gastrointestinal: No tender; soft; No guarding, No rebound; audible bowel sounds Extremities: No clubbing, No cyanosis, No significant edema Neurologic/Psychiatric: oriented x 3, other (moves all limbs equally) Skin: normal color, warm/dry; No rash on exposed areas, No ulcerations on exposed areas Data Review Labs Laboratory Tests 05/03/22 21:57: White Blood Count 4.7, Red Blood Count 2.91L, Hemoglobin 7.6L, Hematocrit 27L, Mean Corpuscular Volume 94, Mean Corpuscular Hemoglobin 26, Mean Corpuscular Hemoglobin Concent 28L, Red Cell Distribution Width 13.5, Platelet Count 137, Mean Platelet Volume 9.6, Immature Granulocyte % (Auto) 0, Neutrophils (%) (Auto) 50, Lymphocytes (%) (Auto) 35, Monocytes (%) (Auto) 12, Eosinophils (%) (Auto) 2, Basophils (%) (Auto) 0, Neutrophils # (Auto) 2.3, Lymphocytes # (Auto) 1.6, Monocytes # (Auto) 0.6, Eosinophils # (Auto) 0.1, Basophils # (Auto) 0.0, Immature Granulocyte # (Auto) 0.0, Prothrombin Time 12.6, INR Comment 0.9, Activated Partial Thromboplast Time 34, D-Dimer 0.57H, Sodium Level 140, Potassium Level 4.4, Chloride Level 93L, Carbon Dioxide Level 40H, Anion Gap 7, Blood Urea Nitrogen 10, Creatinine 0.81, Estimat Glomerular Filtration Rate 97, BUN/Creatinine Ratio 12, Glucose Level 88, Calcium Level 9.1, Corrected Calcium 9.3, Magnesium Level 1.6, Total Bilirubin 0.2, Aspartate Amino Transf (AST/SGOT) 19, Alanine Aminotransferase (ALT/SGPT) 20, Alkaline Phosphatase 86, Total Creatine Kinase 65, Creatine Kinase MB 1.5, Myoglobin 29.7, Troponin I < 0.028, B-Type Natriuretic Peptide 52.4, Total Protein 6.4, Albumin 3.7, Amylase Level 49, Lipase 37 05/03/22 22:04: Influenza Type A (RT-PCR) Not Detected, Influenza Type B (RT-PCR) Not Detected, SARS-CoV-2 RNA (RT-PCR) Not Detected 05/04/22 01:00: Troponin I < 0.028 05/04/22 05:14: White Blood Count 3.7L, Red Blood Count 2.99L, Hemoglobin 7.9L, Hematocrit 28L, Mean Corpuscular Volume 92, Mean Corpuscular Hemoglobin 26, Mean Corpuscular Hemoglobin Concent 29L, Red Cell Distribution Width 13.8, Platelet Count 131, Mean Platelet Volume 10.1, Immature Granulocyte % (Auto) 0, Neutrophils (%) (Auto) 49, Lymphocytes (%) (Auto) 38, Monocytes (%) (Auto) 11, Eosinophils (%) (Auto) 2, Basophils (%) (Auto) 0, Neutrophils # (Auto) 1.8, Lymphocytes # (Auto) 1.4, Monocytes # (Auto) 0.4, Eosinophils # (Auto) 0.1, Basophils # (Auto) 0.0, Immature Granulocyte # (Auto) 0.0, Sodium Level 142, Potassium Level 4.4, Chloride Level 95L, Carbon Dioxide Level 37H, Anion Gap 10, Blood Urea Nitrogen 9, Creatinine 0.80, Estimat Glomerular Filtration Rate 98, BUN/Creatinine Ratio 11, Glucose Level 98, Calcium Level 8.5, Troponin I < 0.028, Percent Immature Platelet Fraction 4.6 05/04/22 07:42: Hemoglobin 8.1L, Hematocrit 28L Laboratory Tests 05/03/22 21:57 05/04/22 05:14 05/04/22 07:42 A/P-Cardiology Assessment/Admission Diagnosis Chest pain of undetermined etiology - no evidence of ACS - chronic h/o intermittent chest pain / stable angina CAD - Last card cath March 2018: total occlusion of the mid LAD and the vein graft to the LAD, patent stent in the proximal LAD that was providing flow to the first diagonal branch, mild disease in the circumflex artery and right coronary artery, the apex of the left ventricular still akinetic with ejection fraction 45-50 percent. Coronary anatomy deemed inoperable. Management of chest discomfort since has been conservative Severe anemia of undetermined etiology - Hospitalist svce managing H/o significant wgt loss in [id number] - managed by his pcp Chronic systolic and diastolic CHF - Echo October 2021: mild concentric hypertrophy, EF 50-55%, grade 1 diastolic dysfunction, moderately dilated left atrium, PA 30-35mmHg. Chronic dyspnea on exertion - prob due to COPD, followed by his fuel testing technician Dr Foote - h/o severe oxygen dependency H/o peripheral edema, intermittent PAD - history of balloon angioplasty with angioscore cutting balloon 5x40 mm to the left external iliac then stenting to the left external iliac artery with 6x50 Viabahn postdilated with a Brent balloon. Done by Dr. Jackson. Follows with [facility], Ailin Bartlett Hypertension, controlled Hyperlipidemia, controlled. Tobaccoism - reports that he has stopped smoking, encouraged to continue to refrain from tobacco use Carotid arterial disease - right carotid endarterectomy, Dr Carrion following Anxiety Discussion and Recomendations * DAPT * BB * Statin * Monitor labs * We recommend a full w/u for anemia and treatment of anemia * Consider blood transfusion Clinical Quality Measures AMI/AHF: ASA po Prior to arrival: Yes JENS CHAVEZ MD FACP FAC CCDS May 04, 2022 12:59
[2022-05-04] MEDS ORDERED: CLOPIDOGREL 75 MG (PLAVIX) TABLET PO ONE (13:00)
[2022-05-04] MEDS ORDERED: HYDROCORTISONE 100 MG/2 ML (Solu-CORTEF) VIAL IV PRN (18:15)
[2022-05-04] MEDS ORDERED: EPINEPHrine INJECTION 1 MG/ML AMP IM PRN (18:15)
[2022-05-04] MEDS ORDERED: FOLIC ACID 1 MG TAB PO ONE (18:15)
[2022-05-04] MEDS ORDERED: diphenhydrAMINE 50 MG/ML INJ (BENADRYL) IV PRN (18:15)
[2022-05-04] MEDS ORDERED: RT-ALBUTEROL SULF 2.5 MG/3 ML PRE-MIX VIAL IH PRN (18:15)
[2022-05-04] MEDS ORDERED: IRON DEXTRAN INJECTION 25 MG in NS (IVPB) 5.75 ML IV ONE (18:15)
[2022-05-04] MEDS ORDERED: IRON DEXTRAN INJECTION 1,000 MG in NS (IVPB) 250 ML IV ONE (19:00)
[2022-05-04] MEDS ORDERED: ACETAMINOPHEN 325 MG TABLET PO PRN (20:00)
[2022-05-04] MEDS: RT--FLUTICASONE/SALMETEROL 232-14 (AIRDUO RespiCLICK) IH SCH (20:20)
[2022-05-04] MEDS ORDERED: MIRTAZAPINE 15 MG (REMERON) TAB PO SCH (21:00)
[2022-05-05] VITALS: BP 120/54
[2022-05-05] MEDS: RT-ALBUTEROL SULF 2.5 MG/3 ML PRE-MIX VIAL INH SCH ×2 (02:15→07:12)
[2022-05-05 04:00] VITALS: BP 110/44
[2022-05-05 05:05] LABS: HEMOGLOBIN 8.1 g/dL (13.3-17.7)
[2022-05-05 05:24] LABS: MAGNESIUM 1.7 MG/DL (1.6-2.4)
[2022-05-05] MEDS: CATHETER FLUSH 10 ML SYR IVP SCH (06:47)
[2022-05-05 07:00] VITALS: BP 117/61
[2022-05-05] MEDS: RT--FLUTICASONE/SALMETEROL 232-14 (AIRDUO RespiCLICK) IH SCH (07:14)
[2022-05-05] MEDS ORDERED: IRON DEXTRAN INJECTION 25 MG in NS (IVPB) 5.75 ML IV ONE (07:45)
[2022-05-05] MEDS ORDERED: IRON DEXTRAN INJECTION 1,000 MG in NS (IVPB) 250 ML IV ONE (07:45)
[2022-05-05] MEDS ORDERED: NS IV 500 ML 500 ML IV SCH (08:00)
[2022-05-05] MEDS ORDERED: SENN1TAB93 PO (08:06)
[2022-05-05] MEDS ORDERED: FOLI1TAB33 PO (08:06)
[2022-05-05] MEDS ORDERED: FERR325T18 PO (08:06)
[2022-05-05] MEDS: ASPIRIN E.C. 81 MG (ECOTRIN) TAB PO SCH (08:24)
[2022-05-05] MEDS: PANTOPRAZOLE 40 MG (PROTONIX) VIAL IV SCH (08:24)
[2022-05-05] MEDS ORDERED: CLOPIDOGREL 75 MG (PLAVIX) TABLET PO SCH (09:00)
[2022-05-05] MEDS ORDERED: FOLIC ACID 1 MG TAB PO SCH (09:00)
[2022-05-05 12:00] VITALS: BP 112/52
[2022-05-05 13:00] VITALS: BP 127/66
[2022-05-05] MEDS ORDERED: CARV6.252 PO (13:33)
--- NOTE | 2022-05-05 14:55 | Progress Note - Cardiology ---
Cardiology SOAP Progress Note Subjective: No cp or palp or syncope or shortness of breath Gen weakness and malaise have improved considerably, he says No n/v/d No swelling Wishes to go home Objective: I&O/Vital Signs 05/05/22 05/05/22 05/05/22 05/05/22 04:00 04:00 07:00 07:00 Temp 36.4 36.3 Pulse 60 65 57 Resp 28 18 B/P (MAP) 110/44 (66) 117/61 (79) Pulse Ox 100 100 O2 Delivery Nasal Cannula Room Air O2 Flow Rate 4.00 05/05/22 05/05/22 05/05/22 05/05/22 07:12 08:00 11:57 12:00 Temp 36.6 Pulse 55 Resp 11 B/P (MAP) 112/52 (72) Pulse Ox 98 97 100 O2 Delivery Nasal Cannula Nasal Cannula Room Air O2 Flow Rate 4.00 4.00 05/05/22 05/05/22 13:00 13:00 Pulse 63 66 Resp 16 B/P (MAP) 127/66 (86) Pulse Ox 97 O2 Delivery Room Air 05/05/22 00:00 Intake Total 850 ml Output Total 1225 ml Balance -375 ml Weight (Pounds): 174 Weight (Ounces): 0.0 Weight (Calculated Kilograms): 78.466434 Constitutional: AAO x 3, well-developed, well-nourished Respiratory: No accessory muscle use; other (good, bilateral air entry, prolonged exp, exp wheezes) Cardiovascular: regular rate-rhythm, S1 and S2, systolic murmur (soft LINNEA at card base) Gastrointestional: No tender; soft; No guarding, No rebound; audible bowel sounds Extremities: No clubbing, No cyanosis, No significant edema Neurologic/Psychiatric: oriented x 3, other (moves all limbs equally) Skin: normal color, warm/dry; No rash on exposed areas, No ulcerations on exposed areas Results/Procedures: Labs Laboratory Tests 05/05/22 04:40: Hemoglobin 8.1L, Hematocrit 28L, Magnesium Level 1.7, Thyroid Stimulating Hormone (TSH) 2.20, Digoxin Level < 0.30L Laboratory Tests 05/03/22 21:57 05/04/22 05:14 05/04/22 07:42 05/05/22 04:40 A/P: Assessment: Chest pain of undetermined etiology - no evidence of ACS - chronic h/o intermittent chest pain / stable angina CAD - Last card cath March 2018: total occlusion of the mid LAD and the vein graft to the LAD, patent stent in the proximal LAD that was providing flow to the first diagonal branch, mild disease in the circumflex artery and right coronary artery, the apex of the left ventricular still akinetic with ejection fraction 45-50 percent. Coronary anatomy deemed inoperable. Management of chest discomfort since has been conservative Severe anemia of undetermined etiology - Hospitalist svce managing H/o significant wgt loss in [id number] - managed by his pcp Chronic systolic and diastolic CHF - Echo October 2021: mild concentric hypertrophy, EF 50-55%, grade 1 diastolic dysfunction, moderately dilated left atrium, PA 30-35mmHg. Chronic dyspnea on exertion - prob due to COPD, followed by his embroidery specialist Dr Foote - h/o severe oxygen dependency H/o peripheral edema, intermittent PAD - history of balloon angioplasty with angioscore cutting balloon 5x40 mm to the left external iliac then stenting to the left external iliac artery with 6x50 Viabahn postdilated with a Brent balloon. Done by Dr. Jackson. Follows with [facility], Ailin Bartlett Hypertension, controlled Hyperlipidemia, controlled. Tobaccoism - reports that he has stopped smoking, encouraged to continue to refrain from tobacco use Carotid arterial disease - right carotid endarterectomy, Dr Carrion following Anxiety Plan: * I had a detailed discussion with him and his fam regarding his CV issues * We recommend a full w/u and treatment for anemia * We outpt cardiac f/u with Dr Carrion within 1-2 weeks Clinical Quality Measures AMI/AHF: ASA po Prior to arrival: Yes JENS CHAVEZ MD FACP FAC CCDS May 05, 2022 14:55
--- NOTE | 2022-05-05 19:20 | Discharge Summary ---
Discharge Summary Hospital Course Problems/Dx: (1) Chest pain Status: Resolved (2) CAD (coronary artery disease) Status: Chronic (3) HTN (hypertension) Status: Chronic (4) COPD (chronic obstructive pulmonary disease) Status: Chronic (5) Anemia Status: Acute Qualifiers: Qualified Codes: D50.9 - Iron deficiency anemia, unspecified Hospital Course Date of Admission: May 03, 2022 at 22:50 Admission Diagnosis : Chest pain, anemia Family Physician/Provider: Jose Manjarrez MD Date of Discharge: 05/05/22 Discharge Diagnosis: Chest pain, anemia due to iron and folate deficiency Hospital Course: Ethan Dougherty is a 66 year old male who was admitted with chest pain. He has a history of CAD. Cardiology was consulted and assisted with his care. His troponins remained normal and his EKG unremarkable. He was also found to be anemic. His hemoglobin was slightly lower than his baseline. He was transfused one unit PRBC. His labs were consistent with iron deficiency and folic acid deficiency. He was given an iron infusion. He was started on oral iron and folic acid replacement. He should follow up with Dr. Eisenberg for colonoscopy evaluation due to his iron deficiency. He should follow up with his PCP in about a week. He was discharged home in stable condition. Labs and Pending Lab Test: Laboratory Tests 05/05/22 04:40: Hemoglobin 8.1L, Hematocrit 28L, Magnesium Level 1.7, Thyroid Stimulating Hormone (TSH) 2.20, Digoxin Level < 0.30L Home Meds Active Carvedilol 6.25 Mg Tablet 6.25 Mg PO DAILY 30 Days Senna-Docusate Sodium Tablet (Sennosides/Docusate Sodium) 8.6 Mg-50 Mg Tablet 1 Each PO BID 30 Days Ferrous Sulfate 325 Mg (65 Mg Iron) Tablet 325 Mg PO BID 30 Days Folic Acid 1 Mg Tablet 1 Mg PO DAILY 30 Days Reported Ranexa (Ranolazine) 1,000 Mg Tab.er.12h 1,000 Mg PO DAILY Nitroglycerin 0.4 Mg Tab.subl 0.4 Mg SL UD PRN Pantoprazole Sodium 40 Mg Tablet.dr 40 Mg PO DAILY Fish Oil 1,000 mg Capsule (Hood 3 Polyunsat Fatty Acids) 340 Mg-1,000 Mg Cap 1,000 Mg PO DAILY Aripiprazole 30 Mg Tablet 30 Mg PO DAILY Montelukast Sodium 10 Mg Tablet 10 Mg PO DAILY Aspirin 81 Mg Tab.chew 81 Mg PO DAILY Sertraline HCl 100 Mg Tablet 200 Mg PO DAILY TAKES 2 (100MG) TABS Clopidogrel (Clopidogrel Bisulfate) 75 Mg Tablet 75 Mg PO DAILY Ventolin Hfa (Albuterol Sulfate) 1 Puff Puff 2 Puff IH PRN PRN Atorvastatin Calcium 80 Mg Tablet 80 Mg PO DAILY Mirtazapine 30 Mg Tablet 30 Mg PO HS Amlodipine Besylate 5 Mg Tablet 5 Mg PO DAILY Bupropion HCl 75 Mg Tablet 75 Mg PO DAILY Isosorbide Mononitrate ER (Isosorbide Mononitrate) 30 Mg Tab.er.24h 30 Mg PO DAILY Assessment/Pt Instructions See instructions Discharge Planning: >30 minutes discharge planning Discharge Instructions Discharge Diet: No Restrictions Activity as Tolerated: Yes Consultations Cardiology Discharge Physical Examination Vital Signs Vital Signs Date Time Temp Pulse Resp B/P (MAP) Pulse Ox O2 Delivery O2 Flow Rate FiO2 05/05/22 13:00 66 16 127/66 (86) 97 Room Air 05/05/22 11:57 36.6 05/05/22 08:00 4.00 05/03/22 21:53 99 General Appearance: No Apparent Distress, WD/WN Respiratory: Lungs Clear, No Respiratory Distress Cardiovascular: Regular Rate, Rhythm, No Murmur Gastrointestinal: Normal Bowel Sounds, Soft Extremity: Normal Inspection, No Pedal Edema Skin: Normal Color, Warm/Dry Neurologic/Psychiatric: Alert, Normal Mood/Affect Allergies: Coded Allergies: budesonide (Verified Allergy, Severe, angioedema, 12/06/18) formoterol (Verified Allergy, Severe, angioedema, pt has rec Albuterol in the past, 01/23/22) tetanus toxoid, adsorbed (Verified Allergy, Mild, hives, 12/06/18) DOROTA Inhibitors (Verified Allergy, Unknown, Angioedema, 12/06/18) Copy Copies To 1: TAMIKO EISENBERG MD Discharge Summary Date of Admission May 03, 2022 at 22:50 Date of Discharge May 05, 2022 at 14:00 Discharge Date: May 05, 2022 Discharge Time: 14:00 Admission Diagnosis Chest pain Consults/Procedures Consulations Cardiology Discharge Diagnosis Chest pain Anemia (1) Chest pain Onset Date: ~ 05/03/2022 Status: Resolved (2) CAD (coronary artery disease) Status: Chronic (3) HTN (hypertension) Status: Chronic (4) COPD (chronic obstructive pulmonary disease) Status: Chronic (5) Anemia Status: Acute Qualifiers: Qualified Codes: D50.9 - Iron deficiency anemia, unspecified (6) Folic acid deficiency Status: Acute Clinical Quality Measures AMI/AHF: ASA po Prior to arrival: Yes ROHIT SAL MD May 05, 2022 19:20
== END 2022-05-05 14:00 | disposition home or self-care (01) ==
LOC: EDUNIT# 21:50 → ER 21:52 → ICU 22:50 → UNDOADMOB 22:50 → ICU 23:45 → UNDODISOB 05-05 14:00
PROVIDERS: ADMIT Internal Medicine; ATTEND Internal Medicine
DX: R07.9 Chest pain, unspecified (principal); I25.10 Atherosclerotic heart disease of native coronary artery without angina pectoris; I11.0 Hypertensive heart disease with heart failure; J44.9 Chronic obstructive pulmonary disease, unspecified; E53.8 Deficiency of other specified B group vitamins; D50.9 Iron deficiency anemia, unspecified; I50.42 Chronic combined systolic (congestive) and diastolic (congestive) heart failure; I73.9 Peripheral vascular disease, unspecified; E78.5 Hyperlipidemia, unspecified; I77.9 Disorder of arteries and arterioles, unspecified; Z87.891 Personal history of nicotine dependence; Z79.899 Other long term (current) drug therapy
CPT/HCPCS: 36415; 36430; 71045; 80048; 80053; 80162; 82150; 82550; 82553; 82607; 82728; 82746; 83540; 83550; 83690; 83735; 83874; 83880; 84443; 84484; 85014; 85018; 85025; 85379; 85610; 85730; 86850; 86900; 86901; 86920; 87636; 90471; 90662; 93005; 93041; 94640; 96361; 96375; 96376

== ENCOUNTER 2022-05-16 10:15 | Outpatient (CLI) | payer MEDICARE, MEDICAID ==
[~2022-05-16] VITALS: Ht 172.7 cm; Wt 80.7 kg
[~2022-05-16 10:15] MED LIST changes: +CLOP-31 PO; -CLOP75TA69 PO; +FERR325T18 PO; +FOLI1TAB33 PO; +SENN1TAB93 PO
[2022-05-16] MEDS ORDERED: SUCR1TAB PO (11:24)
[2022-05-16] MEDS ORDERED: MTC10T PO (11:24)
[2022-05-17] MEDS ORDERED: OMEP40CA6 PO (11:59)
[2022-05-17] MEDS ORDERED: [UNRECOGNIZED DRUG - CODE] PO (11:59)
[2022-05-17] MEDS ORDERED: METR-145 PO (11:59)
== END 2022-05-16 11:25 | disposition home or self-care (01) ==
LOC: PREOP 10:15
PROVIDERS: ATTEND Surgery
DX: Z01.818 Encounter for other preprocedural examination (principal)

== ENCOUNTER 2022-05-17 11:23 | Day surgery (SDC) | payer MEDICARE, MEDICAID ==
[~2022-05-17] VITALS: Ht 172.7 cm; Wt 80.7 kg
[2022-05-17] MEDS ORDERED: LACTATED RINGERS 1,000 ML IV STA (11:24)
[2022-05-17] MEDS ORDERED: LIDOCAINE JELLY 2% 6 ML SYRINGE MM PRN (11:30)
[2022-05-17] MEDS ORDERED: HURRICAINE EXT TUBE (BENZOCAINE) XX PRN (11:30)
[2022-05-17 11:45] VITALS: BP 137/67
--- NOTE | 2022-05-17 11:56 | Progress Note-Pre Operative ---
Pre-Operative Progress Note Date of Available H&P: May 17, 2022 Date H&P Reviewed: May 17, 2022 Time H&P Reviewed: 11:45 History & Physical: No changes noted Pre-Operative Diagnosis: anemia with hx h. pylori TAMIKO IQBAL MD May 17, 2022 11:56
[2022-05-17] MEDS ORDERED: OMEP40CA6 PO (11:59)
[2022-05-17] MEDS ORDERED: [UNRECOGNIZED DRUG - CODE] PO (11:59)
[2022-05-17] MEDS ORDERED: METR-145 PO (11:59)
[2022-05-17] MEDS ORDERED: ONDANSETRON 4 MG (ZOFRAN) ORAL DISSOLVE TAB PO PRN (12:00)
[2022-05-17] MEDS ORDERED: ONDANSETRON 4 MG/2 ML (SDV) Z0FRAN IVP PRN (12:00)
--- NOTE | 2022-05-17 12:00 | Discharge Inst-Surgical ---
D/C Lap Instructions-KIDO New, Converted, or Re-Newed RX: RX on Chart Follow Up Appt in 2 Activity as tolerated High Fiber Diet 25g or more per day Avoid Alcohol, Caffeine, Spicy [place] and Acid foods. Drink 64 fluid oz or more of fluids per day. Symptoms to Report: Fever over 101 degree F, Nausea/Vomiting If any problems/questions: Contact your physician or go to Emergency Room TAMIKO IQBAL MD May 17, 2022 11:59
[2022-05-17] MEDS ORDERED: PROPOFOL INJECTION 50 ML IV ONE (12:39)
[2022-05-17] MEDS ORDERED: MIDAZOLAM 2 MG/2 ML (VERSED) VIAL ONE (12:39)
[2022-05-17 13:20] VITALS: BP 119/56
[2022-05-17 13:25] VITALS: BP 109/57
--- NOTE | 2022-05-17 13:28 | Anesthesia-General Post-Op ---
MAC Patient Condition Mental Status/LOC: Same as Preop Cardiovascular: Satisfactory Nausea/Vomiting: Absent Respiratory: Satisfactory Pain: Controlled Complications: Absent Post Op Complications Complications None Follow Up Care/Instructions Patient Instructions None needed. Anesthesiology Discharge Order Discharge Order Patient is doing well, no complaints, stable vital signs, no apparent adverse anesthesia problems. No complications reported per nursing. ALIS KING CRNA May 17, 2022 13:28
[2022-05-17 13:30] VITALS: BP 120/59
[2022-05-17] MEDS ORDERED: LACTATED RINGERS 1,000 ML IV ONE (13:56)
[2022-05-17 14:05] VITALS: BP 138/65
[2022-05-17 14:21] VITALS: BP 138/65
--- NOTE | 2022-05-17 20:43 | OPERATIVE REPORT ---
DATE OF SERVICE: 05/17/2022 ATTENDING PRIMARY CARE PHYSICIAN: Dr. Jose Manjarrez. PREOPERATIVE DIAGNOSIS: Symptomatic anemia. POSTOPERATIVE DIAGNOSES: Reflux esophagitis, Dewey between grade B and C, small hiatal hernia, 2 cm in size, moderate gastritis, normal duodenum, chronic stage II external, internal hemorrhoids, moderate sigmoid diverticulosis, small polyp of the cecum approximately 3 mm in size. PROCEDURE: EGD with biopsy, colonoscopy with polypectomy with hot biopsy forceps. SURGEON:. Tamiko Iqbal MD ANESTHESIA: Monitored anesthesia care. ESTIMATED BLOOD LOSS: Minimal. FINDINGS: Reflux esophagitis, Dewey between grade B and C, small hiatal hernia, 2 cm in size, moderate gastritis, normal duodenum, chronic stage II external, internal hemorrhoids, moderate sigmoid diverticulosis, small polyp of the cecum approximately 3 mm in size. DISPOSITION: The patient tolerated the procedure well. INDICATIONS: The patient is a 66-year-old male referred over to us for anemia. He also has had some pain in the right lower abdominal quadrant as well as chest pain. He was seen in the emergency department and was found to be significantly anemic requiring a transfusion of packed red blood cells. He also does report that the pain in the right side of the abdomen does come and go on an intermittent basis. We have done an EGD on him before and was found to be H. pylori positive; however, did not finish his treatment. He also is a previous heavy smoker; however, quit in 2018. He also does have a history of alcohol abuse, but states he stopped drinking several years ago. DESCRIPTION OF PROCEDURE: The patient was brought to the endoscopy suite and laid in the left lateral decubitus position. After adequate IV medications and then monitored anesthesia care, the mouthpiece was applied. The endoscope was then placed in the mouth and visualized from the pharynx and hypopharyngeal region. Vocal cords, epiglottis and vallecula identified and appeared to be normal. Endoscope was then gently intubated from the esophageal opening. The esophagus was insufflated. The endoscope was then advanced through the first, second and third portions of the esophagus at the level of the GE junction, reflux esophagitis, Dewey between grade B and C identified. No ulcers or strictures identified in this region. A biopsy was taken with forceps with visualization with good hemostasis. The endoscope was then advanced into the stomach and the scope retroflexed visualizing small hiatal hernia approximately 2 cm in size. There was a moderate severity gastritis, however, no formal ulcerations, polyps or any neoplasms as well as no active bleeding sources. Biopsy was taken of the antrum to again rule out H. pylori with visualization of good hemostasis. Endoscope was then advanced through the pylorus and the first and second portion of the duodenum, which also appeared normal with no ulcerations identified. The endoscope was then slowly withdrawn, taking a second look and suctioning of residual air with no additional findings. A digital rectal examination was performed which revealed chronic stage II, external, internal hemorrhoids. Normal sphincter tone was felt and there were no palpable masses. Prostate gland was palpable and appeared normal. Endoscope was then intubated and the anterior rectum was gently insufflated. The endoscope was then advanced through the valves of Fox of the rectum with no polyps or neoplasm was identified. Through the sigmoid colon, a moderate sigmoid diverticulosis identified. There was no acute or chronic bleeding identified. The endoscope was then advanced through the remainder of the descending, transverse and ascending colon to the cecum. At the level of cecum, a small polyp identified approximately 2-3 mm in size and this was biopsied and destroyed using forceps and electrocautery with good hemostasis. The endoscope was then slowly withdrawn to take a second look and suction of residual air with no additional findings. The patient tolerated the procedure well. We feel that the most likely etiology of his anemia is intermittent episodes of gastritis or peptic ulcer disease causing gradual blood loss. He also was found to be H. pylori positive in the past and did not start or finish out any treatment modality, so the likelihood of him having continued H. pylori is high and we will empirically start him on the proper treatment regimen. He also again does report pain on the right side of the abdomen on an intermittent basis and this may be related to his gallbladder and we will schedule him as an outpatient for ultrasound as well as a possible HIDA scan. We will also recommend a high-fiber diet with a fiber supplement, which would equal exceed 30 grams daily to promote was on a daily basis, which would decrease his risk of bleeding from the sigmoid diverticulum or enteric or an internal hemorrhoid report. Job ID: [id number] DocumentID: [id number] Dictated Date: 05/17/2022 13:31:57 Safety Director Date: 05/17/2022 20:41:00 Dictated By: TAMIKO IQBAL MD
== END 2022-05-17 14:29 | disposition home or self-care (01) ==
LOC: ENDO 11:23
PROVIDERS: ATTEND Surgery
DX: K21.00 Gastro-esophageal reflux disease with esophagitis, without bleeding (principal); K44.9 Diaphragmatic hernia without obstruction or gangrene; K29.50 Unspecified chronic gastritis without bleeding; K57.30 Diverticulosis of large intestine without perforation or abscess without bleeding; K63.5 Polyp of colon; K64.1 Second degree hemorrhoids; K64.4 Residual hemorrhoidal skin tags; D64.9 Anemia, unspecified; Z87.891 Personal history of nicotine dependence; Z99.81 Dependence on supplemental oxygen; Z95.1 Presence of aortocoronary bypass graft

== ENCOUNTER → 2022-06-04 | Outpatient (CLI) | payer MEDICARE, MEDICAID ==
[~2022-06-04] MED LIST changes: +METR-145 PO; +OMEP40CA6 PO; +[UNRECOGNIZED DRUG - CODE] PO
--- NOTE | 2022-06-04 11:24 | Diagnostic Imaging Report ---
PROCEDURE: US Gallbladder. TECHNIQUE: Multiple real-time grayscale images were obtained over the right upper quadrant in various projections. INDICATION: Right upper quadrant pain Liver parenchyma is homogeneous with normal echotexture. Portal vein is patent with hepatopetal flow. Gallbladder is clear with no stones or wall thickening. Common duct does not appear dilated. Pancreas is obscured by bowel gas. Aorta is obscured by bowel gas. IVC is patent. Right kidney measures 10 cm in length and appears normal. There is no ascites. IMPRESSION: Unremarkable right upper quadrant ultrasound Dictated by: Dictated on workstation # [id number]
== END ==
LOC: RAD 10:22
PROVIDERS: ATTEND Surgery
DX: R10.11 Right upper quadrant pain (principal)
CPT/HCPCS: 76705

== ENCOUNTER 2022-06-09 12:10 | Emergency (ER) | payer MEDICARE, MEDICAID ==
[~2022-06-09] VITALS: Ht 172 cm; Wt 77.1 kg
--- NOTE | 2022-06-09 12:47 | ED Chest Pain ---
General Chief Complaint: Chest Pain Stated Complaint: CHEST PAIN Nursing Triage Note: PT ARRIVED PER EMS,PT CO OF CHEST PAIN AND SOA, STARTE ON FRIDAY WENT AWAY AND STARTED AFTER [facility] TODAY. PT RATES C/P 12/16. PT WAS GIVEN ASA 324MG BY EMS,PT ALSO GIVEN NITRO X1. PT HAS SL IN L AC #20 BY EMS. Source: patient Exam Limitations: no limitations History of Present Illness Date Seen by Provider: Jun 09, 2022 Time Seen by Provider: 12:35 Initial Comments Patient is a 66-year-old male who presents to the emergency room with a chief complaint of chest discomfort. He states that he had some chest pain on Friday that went away on its own. He states after [facility]aism today he had chest pain that he rated at a "7" out of 10. He normally takes nitroglycerin but did not have any while he was at [facility]. He states that the chest pain improved after EMS gave him 1 dose but did not go away. He tells me he has an extensive history of coronary artery disease that is not amenable to any intervention. 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 He has had failed bypass as well as failed stents. He takes his medications he states as instructed. No recent fevers, chills, productive cough. No problems with bowel or bladder. He is chronically nauseated. He is chronically short of breath. He wears oxygen at 5 L at home all the time. All other review of systems reviewed and negative except as stated Timing/Duration: 1-3 hours Severity/Quality: moderate ("7"), sharp Location: central (left) Radiation: no radiation ASA po FACE HARDENER: Yes NTG SL FACE HARDENER: Yes Allergies and Home Medications Allergies Coded Allergies: budesonide (Verified Allergy, Severe, angioedema, 12/06/18) formoterol (Verified Allergy, Severe, angioedema, pt has rec Albuterol in the past, 01/23/22) tetanus toxoid, adsorbed (Verified Allergy, Mild, hives, 12/06/18) DOROTA Inhibitors (Verified Allergy, Unknown, Angioedema, 12/06/18) Patient Home Medication List Home Medication List Reviewed: Yes Albuterol Sulfate (Ventolin Hfa) 1 Puff Puff, 2 PUFF IH PRN PRN for SHORTNESS OF BREATH, (Reported) Entered as Reported by: GAVIN RUBIO on 03/18/18 0737 Amlodipine Besylate (Amlodipine Besylate) 5 Mg Tablet, 5 MG PO DAILY, (Reported) Entered as Reported by: CELSO SZYMANSKI on 02/15/18 035 Aripiprazole (Aripiprazole) 30 Mg Tablet, 30 MG PO DAILY, (Reported) Entered as Reported by: JEFF LEWIS on 06/29/20 1249 Aspirin (Aspirin) 81 Mg Tab.chew, 81 MG PO DAILY, (Reported) Entered as Reported by: JEFF LEWIS on 05/01/20 1344 Atorvastatin Calcium (Atorvastatin Calcium) 80 Mg Tablet, 80 MG PO DAILY, (Reported) Entered as Reported by: GAVIN RUBIO on 03/18/18 0737 Bupropion HCl (Bupropion HCl) 75 Mg Tablet, 75 MG PO DAILY, (Reported) Entered as Reported by: CELSO SZYMANSKI on 02/15/18 035 Carvedilol (Carvedilol) 6.25 Mg Tablet, 6.25 MG PO DAILY Prescribed by: MEREDITH RAMOS on 05/05/22 1333 Clarithromycin (Clarithromycin) 250 Mg Tablet, 250 MG PO BID Prescribed by: TAMIKO IQBAL on 05/17/22 1159 Clopidogrel Bisulfate (Clopidogrel) 75 Mg Tablet, 75 MG PO DAILY, (Reported) Entered as Reported by: JEFF LEWIS on 11/08/19 1527 Ferrous Sulfate (Ferrous Sulfate) 325 Mg (65 Mg Iron) Tablet, 325 MG PO BID Prescribed by: ROHIT SAL on 05/05/22 0806 Folic Acid (Folic Acid) 1 Mg Tablet, 1 MG PO DAILY Prescribed by: ROHIT SAL on 05/05/22 0806 Isosorbide Mononitrate (Isosorbide Mononitrate ER) 30 Mg Tab.er.24h, 30 MG PO DAILY, (Reported) Entered as Reported by: PASHA GALEANA on 07/25/16 0945 Metoclopramide HCl (Metoclopramide HCl) 10 Mg Tablet, 10 MG PO DAILY, (Reported) Entered as Reported by: LUBA FUNEZ on 05/16/22 1124 Metronidazole (Metronidazole) 500 Mg Tablet, 500 MG PO BID Prescribed by: TAMIKO IQBAL on 05/17/22 1159 Mirtazapine (Mirtazapine) 30 Mg Tablet, 30 MG PO HS, (Reported) Entered as Reported by: CELSO SZYMANSKI on 02/15/18 0350 Montelukast Sodium (Montelukast Sodium) 10 Mg Tablet, 10 MG PO DAILY, (Reported) Entered as Reported by: JEFF LEWIS on 06/29/20 1249 Nitroglycerin (Nitroglycerin) 0.4 Mg Tab.subl, 0.4 MG SL UD PRN for CHEST PAIN (ANGINA), (Reported) Entered as Reported by: HERON BAEZ on 01/28/22 1309 Sobieski 3 Polyunsat Fatty Acids (Fish Oil 1,000 mg Capsule) 340 Mg-1,000 Mg Cap, 1,000 MG PO DAILY, (Reported) Entered as Reported by: HERON BAEZ on 01/28/22 1308 Omeprazole (Omeprazole) 40 Mg Capsule.dr, 40 MG PO DAILY Prescribed by: TAMIKO IQBAL on 05/17/22 1159 Pantoprazole Sodium (Pantoprazole Sodium) 40 Mg Tablet.dr, 40 MG PO DAILY, (Reported) Entered as Reported by: HERON BAEZ on 01/28/22 1308 Ranolazine (Ranexa) 1,000 Mg Tab.er.12h, 1,000 MG PO DAILY, (Reported) Entered as Reported by: HERON BAEZ on 01/28/22 1310 Sertraline HCl (Sertraline HCl) 100 Mg Tablet, 200 MG PO DAILY, (Reported) Entered as Reported by: JEFF LEWIS on 11/08/19 1527 Sucralfate (Sucralfate) 1 Gram Tablet, 1 GM PO UD, (Reported) Entered as Reported by: LUBA FUNEZ on 05/16/22 1124 Review of Systems Review of Systems Constitutional: see HPI EENTM: No Symptoms Reported Respiratory: Shortness of Air (Chronic) Cardiovascular: Chest Pain Gastrointestinal: Nausea (Chronic) Genitourinary: No Symptoms Reported Musculoskeletal: no symptoms reported Skin: no symptoms reported Psychiatric/Neurological: No Symptoms Reported All Other Systems Reviewed Negative Unless Noted: Yes Past Ohkyymv-Sbxysl-Eozkbt Hx Patient Social History Tobacco Use?: No Substance use?: No Alcohol Use?: No Pt feels they are or have been: No Immunizations Up To Date Tetanus Booster (TDap): Unknown PED Vaccines UTD: No Influenza Vaccine Up-to-Date: Yes; Up-to-Date First/Initial COVID19 Vaccinat: NOVEMBER 2020 Second COVID19 Vaccination Guillermo: DECEMBER 2020 Third COVID19 Vaccination Date: 2020 Seasonal Allergies Seasonal Allergies: No Past Medical History Surgery/Hospitalization HX: MULTIPLE CARDIAC CATHS/MULTIPLE CORONARY STENTS/ILIAC STENT/CABG/INGUINAL HERNIA/TONSILLECTOMY/CAROTID ENDARTERECTOMY Surgeries: Yes (LEFT INGUINAL HERNIA;CABG WITH STENTS IN HEART AND LEG, R carotid endartect) Abdominal, Cardiac, CABG, Coronary Stent, Eye Surgery, Tonsillectomy, Vascular Surgery Respiratory: Yes (WEARS O2 AT 5L/NC CONTINUOUSLY. RUL PULMONARY NODULE) Pneumonia, Chronic Bronchitis, COPD Currently Using CPAP: No Currently Using BIPAP: No Cardiac: Yes (STENT X1/ANGIO L EXT ILIAC ART;CABG/STENT X4;CAROTID DZ;CHF;CARDIAC ARREST) Coronary Artery Disease, Deep Vein Thrombosis, Heart Attack, High Cholesterol, Hypertension, Peripheral Vascular Neurological: Yes Stroke Reproductive Disorders: No Sexually Transmitted Disease: No HIV/AIDS: No Genitourinary: No Gastrointestinal: Yes Abdominal Hernia, Gastroesophageal Reflux, Diverticulosis, Ulcer Musculoskeletal: Yes (MULTIPLE VERTEBRAL COMPRESSION FRACTURES) Degenerate Disk Disease, Arthritis, Chronic Back Pain, Fractures Endocrine: No HEENT: No Loss of Vision: Denies Hearing Impairment: Denies Cancer: No Psychosocial: Yes Sleep Difficulties, Anxiety, Schizophrenia, Depression Integumentary: No Blood Disorders: No Adverse Reaction/Blood Tranf: No Family Medical History Diabetes mellitus 19 MOTHER FH: heart disease 19 FATHER Heart Disease, Diabetes No pertinent history Physical Exam Vital Signs Vital Signs - First Documented 06/09/22 12:10 Temp 36.9 Pulse 99 Resp 18 B/P (MAP) 155/81 (105) Pulse Ox 100 O2 Delivery Nasal Cannula O2 Flow Rate 5.00 Capillary Refill : Less Than 3 Seconds Height, Weight, BMI Height: 5'8.00" Weight: 174lbs. 0.0oz. [id number]; 26.00 BMI Method:Stated General Appearance: No Apparent Distress, WD/WN HEENT: PERRL/EOMI, Other (Oxygen in place at 5 L per nasal cannula) Neck: Normal Inspection Respiratory: No Accessory Muscle Use, No Respiratory Distress, Wheezing, Other (Diminished breath sounds throughout with expiratory wheezing noted throughout.) Cardiovascular: Regular Rate, Rhythm, Tachycardia Gastrointestinal: Non Tender, Soft Extremity: Normal Inspection, No Pedal Edema Neurologic/Psychiatric: Alert, Oriented x3, No Motor/Sensory Deficits Skin: Normal Color, Warm/Dry Progress/Results/Core Measures Results/Orders Lab Results Laboratory Tests Test 06/09/22 12:17 06/09/22 14:52 Range/Units White Blood Count 4.0 L 4.3-11.0 10^3/uL Red Blood Count 3.50 L 4.30-5.52 10^6/uL Hemoglobin 9.8 L 13.3-17.7 g/dL Hematocrit 34 L 40-54 % Mean Corpuscular Volume 97 80-99 fL Mean Corpuscular Hemoglobin 28 25-34 pg Mean Corpuscular Hemoglobin Concent 29 L 32-36 g/dL Red Cell Distribution Width 15.4 H 10.0-14.5 % Platelet Count 113 L 130-400 10^3/uL Mean Platelet Volume 9.8 9.0-12.2 fL Immature Granulocyte % (Auto) 0 % Neutrophils (%) (Auto) 57 42-75 % Lymphocytes (%) (Auto) 31 12-44 % Monocytes (%) (Auto) 10 0-12 % Eosinophils (%) (Auto) 1 0-10 % Basophils (%) (Auto) 0 0-10 % Neutrophils # (Auto) 2.3 1.8-7.8 10^3/uL Lymphocytes # (Auto) 1.2 1.0-4.0 10^3/uL Monocytes # (Auto) 0.4 0.0-1.0 10^3/uL Eosinophils # (Auto) 0.0 0.0-0.3 10^3/uL Basophils # (Auto) 0.0 0.0-0.1 10^3/uL Immature Granulocyte # (Auto) 0.0 0.0-0.1 10^3/uL Percent Immature Platelet Fraction 4.1 0.0-7.6 % Prothrombin Time 12.5 12.2-14.7 SEC INR Comment 0.9 0.8-1.4 Activated Partial Thromboplast Time 32 24-35 SEC Sodium Level 140 135-145 MMOL/L Potassium Level 4.4 3.6-5.0 MMOL/L Chloride Level 91 L 98-107 MMOL/L Carbon Dioxide Level 41 H 21-32 MMOL/L Anion Gap 8 5-14 MMOL/L Blood Urea Nitrogen 9 7-18 MG/DL Creatinine 0.81 0.60-1.30 MG/DL Estimat Glomerular Filtration Rate 97 BUN/Creatinine Ratio 11 Glucose Level 106 H 70-105 MG/DL Calcium Level 9.2 8.5-10.1 MG/DL Corrected Calcium 9.2 8.5-10.1 MG/DL Magnesium Level 1.9 1.6-2.4 MG/DL Total Bilirubin 0.3 0.1-1.0 MG/DL Aspartate Amino Transf (AST/SGOT) 18 5-34 U/L Alanine Aminotransferase (ALT/SGPT) 16 0-55 U/L Alkaline Phosphatase 82 40-136 U/L Myoglobin 34.3 10.0-92.0 NG/ML Troponin I < 0.028 < 0.028 <0.028 NG/ML Total Protein 6.8 6.4-8.2 GM/DL Albumin 4.0 3.2-4.5 GM/DL My Orders Orders - ARUN BRO MD Cbc With Automated Diff (06/09/22 12:47) Magnesium (06/09/22 12:47) Chest 1 View, Ap/Pa Only (06/09/22 12:47) Comprehensive Metabolic Panel (06/09/22 12:47) Myoglobin Serum (06/09/22 12:47) Protime With Inr (06/09/22 12:47) Partial Thromboplastin Time (06/09/22 12:47) O2 (06/09/22 12:47) Monitor-Rhythm Ecg Trace Only (06/09/22 12:47) Lipid Panel (06/10/22 06:00) Ed Iv/Invasive Line Start (06/09/22 12:47) Troponin I Negrita (06/09/22 12:47) Nitroglycerin 0.4 Mg Btl 25's (Nitrostat (06/09/22 13:00) Ekg Tracing (06/09/22 13:06) Troponin I Negrita (06/09/22 14:47) Medications Given in ED Current Medications Medications Dose Ordered Sig/Shira Route Start Time Stop Time Status Last Admin Dose Admin Nitroglycerin 0.4 mg UD PRN SL 06/09/22 13:00 06/09/22 13:34 0.4 MG Vital Signs/I&O 06/09/22 06/09/22 06/09/22 06/09/22 12:10 13:17 13:32 13:34 Temp 36.9 Pulse 99 99 94 Resp 18 22 20 B/P (MAP) 155/81 (105) 150/87 (108) 145/92 (109) Pulse Ox 100 100 100 100 O2 Delivery Nasal Cannula Nasal Cannula Nasal Cannula O2 Flow Rate 5.00 5.00 4.00 Blood Pressure Mean: 105 Progress Progress Note : Time: 15:37 Progress Note Patient seen and evaluated by me, 66-year-old male with a history of coronary artery disease. Work-up today includes cardiac protocol with 2 sets of troponin markers. He was treated with sublingual nitro in the emergency department and was pain-free. Labs reviewed, within normal limits. EKG does not reveal findings consistent with acute coronary syndrome. Chest x-ray is negative. His vital signs have remained stable. Patient has no concerning findings for pneumonia, sepsis, pulmonary embolism, pneumothorax, dissection. Consideration for CT chest however history and physical exam do not support the need. Patient is instructed to resume his prior medications, follow-up with his doll wigs hackler as scheduled as well as his primary care doctor. All findings have been communicated to the patient he is comfortable with the plan of care. Stable for discharge. Initial ECG Impression Date: Jun 09, 2022 Initial ECG Impression Time: 12:19 Initial ECG Rate: 97 Initial ECG Rhythm: Normal Sinus Initial ECG Intervals: Normal Initial ECG Intervals SD 140 QRS 105 QTc 333 Comment Poor R wave progression over the precordium, nonspecific ST-T wave changes over the precordium. No ectopy, no ST segment elevation or depression is noted Diagnostic Imaging Diagonstic Imaging: Xray Plain Films/CT/US/NM/MRI: chest Comments [facility]. [place], [place] NAME: [facility] REC#: [id number] PT STATUS: REG ER : 1955 PHYSICIAN: ARUN BRO MD ADMIT DATE: 06/09/22/ER Draft Date of Exam:06/09/22 CHEST 1 VIEW, AP/PA ONLY EXAMINATION: Chest 1 view HISTORY: Chest pain COMPARISON: 05/03/2022 FINDINGS: The lungs are clear without edema or pneumonia. No pleural effusion or pneumothorax. Heart size is normal. Median sternotomy wires are aligned. There are coronary artery bypass graft markers. IMPRESSION: 1. Clear lungs. Dictated on workstation # [id number] Dict: 06/09/22 1300 Trans: 06/09/22 1305 [facility] [id number] Interpreted by: ALICIA PADRON MD Electronically signed by: Departure Impression Primary Impression: Chest pain Qualified Codes: R07.9 - Chest pain, unspecified Additional Impression: History of coronary artery disease Disposition: HOME, SELF-CARE Condition: Improved Departure-Patient Inst. Decision time for Depature: 15:38 Referrals: PJ BOUCHER MD (PCP) Primary Care Physician JOSHUA CARRION MD Patient Instructions: Chest Pain, Adult ED Add. Discharge Instructions: Continue your home prescribed daily medications. Use your nitroglycerin at home as instructed by Dr. Carrion. If you take 3 at home and did not have relief of your chest pain you need to come back to the emergency department. Please call and make a follow-up appointment with Dr. Carrion. Return to the emergency department for any new, concerning or emergent complaints. Copy Copies To 1: JOSHUA CARRION MD, KATHRYN M MD Jun 09, 2022 12:47
[2022-06-09 12:57] LABS: EOSINOPHILS % (AUTO) 1 % (0-10); MONOCYTES % (AUTO) 10 % (0-12)
[2022-06-09 12:58] LABS: BASOPHILS % (AUTO) 0 % (0-10); HEMATOCRIT 34 % (40-54); HEMOGLOBIN 9.8 g/dL (13.3-17.7); LYMPHOCYTES # (AUTO) 1.2 10^3/uL (1.0-4.0); LYMPHOCYTES % (AUTO) 31 % (12-44); MEAN CORPUSCULAR HEMOGLOBIN 28 pg (25-34); MEAN CORPUSCULAR HGB CONC 29 g/dL (32-36); MEAN CORPUSCULAR VOLUME 97 fL (80-99); MEAN PLATELET VOLUME 9.8 fL (9.0-12.2); MONOCYTES # (AUTO) 0.4 10^3/uL (0.0-1.0); NEUTROPHILS # (AUTO) 2.3 10^3/uL (1.8-7.8); NEUTROPHILS % (AUTO) 57 % (42-75); PLATELET COUNT 113 10^3/uL (130-400)
[2022-06-09 12:59] LABS: POTASSIUM 4.4 MMOL/L (3.6-5.0)
[2022-06-09 13:00] LABS: CALCIUM 9.2 MG/DL (8.5-10.1)
[2022-06-09 13:01] LABS: TOTAL PROTEIN 6.8 GM/DL (6.4-8.2)
[2022-06-09 13:03] LABS: BILIRUBIN,TOTAL 0.3 MG/DL (0.1-1.0); INR 0.9 (0.8-1.4); PROTHROMBIN TIME PATIENT 12.5 SEC (12.2-14.7)
[2022-06-09 13:05] LABS: CREATININE SERUM 0.81 MG/DL (0.60-1.30)
--- NOTE | 2022-06-09 13:06 | Diagnostic Imaging Report ---
EXAMINATION: Chest 1 view HISTORY: Chest pain COMPARISON: 05/03/2022 FINDINGS: The lungs are clear without edema or pneumonia. No pleural effusion or pneumothorax. Heart size is normal. Median sternotomy wires are aligned. There are coronary artery bypass graft markers. IMPRESSION: 1. Clear lungs. Dictated by: Dictated on workstation # [id number]
[2022-06-09 13:08] LABS: MAGNESIUM 1.9 MG/DL (1.6-2.4)
[2022-06-09] MEDS: NITROGLYCERIN 0.4 MG SL TABS BTL 25'S SL PRN ×2 (13:16→13:34)
[2022-06-09 15:53] VITALS: BP 145/92
== END 2022-06-09 15:53 | disposition home or self-care (01) ==
LOC: EDUNIT# 12:11 → ER 12:12
DX: R07.89 Other chest pain (principal); J44.9 Chronic obstructive pulmonary disease, unspecified; R91.1 Solitary pulmonary nodule; Z86.79 Personal history of other diseases of the circulatory system; Z95.5 Presence of coronary angioplasty implant and graft; Z95.1 Presence of aortocoronary bypass graft; Z99.81 Dependence on supplemental oxygen
CPT/HCPCS: 36415; 71045; 80053; 83735; 83874; 84484; 85025; 85610; 85730; 93005; 93041

== ENCOUNTER 2022-08-18 22:41 | Emergency (ER) | payer MEDICARE, MEDICAID ==
[2022-08-18 22:55] LABS: BASOPHILS % (AUTO) 0 % (0-10); EOSINOPHILS # (AUTO) 0.1 10^3/uL (0.0-0.3); EOSINOPHILS % (AUTO) 2 % (0-10); HEMATOCRIT 35 % (40-54); HEMOGLOBIN 10.6 g/dL (13.3-17.7); LYMPHOCYTES # (AUTO) 1.6 10^3/uL (1.0-4.0); LYMPHOCYTES % (AUTO) 35 % (12-44); MEAN CORPUSCULAR HEMOGLOBIN 30 pg (25-34); MEAN CORPUSCULAR HGB CONC 31 g/dL (32-36); MEAN CORPUSCULAR VOLUME 96 fL (80-99); MONOCYTES # (AUTO) 0.4 10^3/uL (0.0-1.0); MONOCYTES % (AUTO) 9 % (0-12); NEUTROPHILS # (AUTO) 2.4 10^3/uL (1.8-7.8); NEUTROPHILS % (AUTO) 53 % (42-75); PLATELET COUNT 135 10^3/uL (130-400); WHITE BLOOD COUNT 4.4 10^3/uL (4.3-11.0)
[2022-08-18 23:17] LABS: BILIRUBIN,TOTAL 0.3 MG/DL (0.1-1.0); CALCIUM 9.6 MG/DL (8.5-10.1); CREATININE SERUM 0.86 MG/DL (0.60-1.30); MAGNESIUM 1.8 MG/DL (1.6-2.4); POTASSIUM 4.2 MMOL/L (3.6-5.0); TOTAL PROTEIN 6.9 GM/DL (6.4-8.2)
[2022-08-18 23:23] LABS: INR 0.9 (0.8-1.4); PROTHROMBIN TIME PATIENT 12.8 SEC (12.2-14.7)
[2022-08-18 23:26] LABS: CREATINE KINASE MB 1.9 NG/ML (<6.6)
[2022-08-18] MEDS ORDERED: NITROGLYCERIN 2% OINT 1 GM UNIT DOSE PACKET TOP ONE (23:30)
[2022-08-18] MEDS ORDERED: KETOROLAC 30 MG/ML VIAL IV ONE (23:45)
--- NOTE | 2022-08-19 01:34 | ED Chest Pain ---
General Chief Complaint: Chest Pain Stated Complaint: CHEST PAIN Nursing Triage Note: TO ED VIA [facility] EMS TO ROOM 3 WITH C/O CP THAT STARTED AT 1830 WHILE HE WAS SITTING. PT TOOK 324 ASA AND 2 SL NITRO PRIOR TO CALLING EMS. EMS GAVE 1 SL NITRO EN ROUTE. PT RATES PAIN 6.5/10 ON ARRIVAL. PT WEARS 4L O2 AT HOME CONTINUOUSLY. EMS DECREASED O2 TO 3L EN ROUTE. PT IS CURRENTLY 95% ON 3L VIA NC. Source: patient, EMS, old records History of Present Illness Date Seen by Provider: Aug 18, 2022 Time Seen by Provider: 22:43 Initial Comments PT ARRIVES VIA EMS FROM HOME C/O CHEST PAIN SINCE 1829 TONIGHT PAIN IS IN LEFT CHEST AND LEFT SHOULDER PAIN BEGAN WHILE SITTING AND WATCHING TV. PAIN IS CONSTANT AND NOTHING WORSENS PAIN PT RATES PAIN 8/10 AT WORST PT TOOK HOME NTG X 1 AT 194, THEN TOOK A SECOND ONE AT 2129. PT ALSO TOOK 324 MG ASPIRIN PRIOR TO CALLING EMS EMS GAVE PT NTG X 1--STATES PAIN IS DOWN TO "6 1/2" THIS IS A CHRONIC COMPLAINT FOR PATIENT, WITH A MULTITUDE OF ER VISITS AND ADMITS. HE MISSED HIS ROUTINE CARDIOLOGY APPOINTMENT WITH DR. CASTILLO 2 WEEKS AGO, AND IS RESCHEDULED FOR OCTOBER 11. HE HAS HAD PRIOR CABG AND CARDIAC STENTS, WELL STENTS IN LEGS, AND CAROTID ENDARTERECTOMY. PT'S LAST CARDIAC CATH WAS 2017 WHICH SHOWED TOTAL OCCLUSION TO MID LAD AND VEIN GRAFT TO LAD. HE HAD A PATENT STENT TO PROXIMAL LAD. PT HAS COPD AND IS O2 DEPENDENT AT 4 L / NC CONTINUOUSLY. HE IS A FORMER SMOKER. STATES HE FINALLY QUIT SMOKING HE STATES HE DOES GET SHORT OF BREATH WITH EXERTION, BUT THIS IS MOSTLY WHEN HE DOES NOT HAVE OXYGEN ON AND HE WALKS TO BATHROOM, KITCHEN, ETC. THIS IS A CHRONIC PROBLEM FOR PATIENT AND IS NO DIFFERENT TODAY NO FEVER/SWEATS/CHILLS NO NAUSEA/VOMITING OR ABDOMINAL PAIN NO COUGH OR RECENT ILLNESS NO SWELLING IN LEGS/ FEET OR PAIN IN CALVES. PCP: DR. BOUCHER [facility] [place] [facility]: DR. CASTILLO Allergies and Home Medications Allergies Coded Allergies: budesonide (Verified Allergy, Severe, angioedema, 12/06/18) formoterol (Verified Allergy, Severe, angioedema, pt has rec Albuterol in the past, 01/23/22) tetanus toxoid, adsorbed (Verified Allergy, Mild, hives, 12/06/18) DOROTA Inhibitors (Verified Allergy, Unknown, Angioedema, 12/06/18) Patient Home Medication List Home Medication List Reviewed: Yes Albuterol Sulfate (Ventolin Hfa) 1 Puff Puff, 2 PUFF IH PRN PRN for SHORTNESS OF BREATH, (Reported) Entered as Reported by: GAVIN RUBIO on 03/18/1837 Amlodipine Besylate (Amlodipine Besylate) 5 Mg Tablet, 5 MG PO DAILY, (Reported) Entered as Reported by: CELSO SZYMANSKI on 02/15/18 035 Aripiprazole (Aripiprazole) 30 Mg Tablet, 30 MG PO DAILY, (Reported) Entered as Reported by: JFEF LEWIS on 06/29/20 1249 Aspirin (Aspirin) 81 Mg Tab.chew, 81 MG PO DAILY, (Reported) Entered as Reported by: JEFF LEWIS on 05/01/20 1344 Atorvastatin Calcium (Atorvastatin Calcium) 80 Mg Tablet, 80 MG PO DAILY, (Reported) Entered as Reported by: GAVIN RUBIO on 03/18/1837 Bupropion HCl (Bupropion HCl) 75 Mg Tablet, 75 MG PO DAILY, (Reported) Entered as Reported by: CELSO SZYMANSKI on 02/15/18349 Carvedilol (Carvedilol) 6.25 Mg Tablet, 6.25 MG PO DAILY Prescribed by: MEREDITH RAMOS on 05/05/22 1333 Clarithromycin (Clarithromycin) 250 Mg Tablet, 250 MG PO BID Prescribed by: TAMIKO IQBAL on 05/17/22 1159 Clopidogrel Bisulfate (Clopidogrel) 75 Mg Tablet, 75 MG PO DAILY, (Reported) Entered as Reported by: JEFF LEWIS on 11/08/19 1527 Ferrous Sulfate (Ferrous Sulfate) 325 Mg (65 Mg Iron) Tablet, 325 MG PO BID Prescribed by: ROHIT SAL on 05/05/22 0806 Folic Acid (Folic Acid) 1 Mg Tablet, 1 MG PO DAILY Prescribed by: ROHIT SAL on 05/05/22 0806 Isosorbide Mononitrate (Isosorbide Mononitrate ER) 30 Mg Tab.er.24h, 30 MG PO DAILY, (Reported) Entered as Reported by: PASHA GALEANA on 07/25/16 0945 Metoclopramide HCl (Metoclopramide HCl) 10 Mg Tablet, 10 MG PO DAILY, (Reported) Entered as Reported by: LUBA FUNEZ on 05/16/22 112 Metronidazole (Metronidazole) 500 Mg Tablet, 500 MG PO BID Prescribed by: TAMIKO IQBAL on 05/17/22 1159 Mirtazapine (Mirtazapine) 30 Mg Tablet, 30 MG PO HS, (Reported) Entered as Reported by: CELSO SZYMANSKI on 02/15/18 0350 Montelukast Sodium (Montelukast Sodium) 10 Mg Tablet, 10 MG PO DAILY, (Reported) Entered as Reported by: JEFF LEWIS on 06/29/20 1249 Nitroglycerin (Nitroglycerin) 0.4 Mg Tab.subl, 0.4 MG SL UD PRN for CHEST PAIN (ANGINA), (Reported) Entered as Reported by: HERON BAEZ on 01/28/22 1309 Twain 3 Polyunsat Fatty Acids (Fish Oil 1,000 mg Capsule) 340 Mg-1,000 Mg Cap, 1,000 MG PO DAILY, (Reported) Entered as Reported by: HERON BAEZ on 01/28/22 1308 Omeprazole (Omeprazole) 40 Mg Capsule.dr, 40 MG PO DAILY Prescribed by: TAMIKO IQBAL on 05/17/22 1159 Pantoprazole Sodium (Pantoprazole Sodium) 40 Mg Tablet.dr, 40 MG PO DAILY, (Reported) Entered as Reported by: HERON BAEZ on 01/28/22 1308 Ranolazine (Ranexa) 1,000 Mg Tab.er.12h, 1,000 MG PO DAILY, (Reported) Entered as Reported by: HERON BAEZ on 01/28/22 1310 Sertraline HCl (Sertraline HCl) 100 Mg Tablet, 200 MG PO DAILY, (Reported) Entered as Reported by: JEFF LEWIS on 11/08/19 1527 Sucralfate (Sucralfate) 1 Gram Tablet, 1 GM PO UD, (Reported) Entered as Reported by: LUBA FUNEZ on 05/16/22 1124 Review of Systems Review of Systems Constitutional: no symptoms reported EENTM: No Symptoms Reported Respiratory: See HPI Cardiovascular: See HPI Gastrointestinal: No Symptoms Reported Genitourinary: No Symptoms Reported Musculoskeletal: no symptoms reported Skin: no symptoms reported Psychiatric/Neurological: No Symptoms Reported Endocrine: No Symptoms Reported Hematologic/Lymphatic: No Symptoms Reported Past Vyqhudx-Kaavcb-Swuwht Hx Patient Social History Tobacco Use?: Yes Tobacco type used: Cigarettes Smoking Status: Former Smoker Substance use?: No Alcohol Use?: Yes Immunizations Up To Date Tetanus Booster (TDap): Unknown PED Vaccines UTD: No Influenza Vaccine Up-to-Date: Yes; Up-to-Date First/Initial COVID19 Vaccinat: NOVEMBER 2020 Second COVID19 Vaccination Guillermo: DECEMBER 2020 Third COVID19 Vaccination Date: 2020 Seasonal Allergies Seasonal Allergies: No Past Medical History Surgery/Hospitalization HX: MULTIPLE CARDIAC CATHS/MULTIPLE CORONARY STENTS/ILIAC STENT/CABG/INGUINAL HERNIA/TONSILLECTOMY/CAROTID ENDARTERECTOMY Surgeries: Yes (LEFT INGUINAL HERNIA;CABG WITH STENTS IN HEART AND LEG, R carotid endartect) Abdominal, Cardiac, CABG, Coronary Stent, Eye Surgery, Tonsillectomy, Vascular Surgery Respiratory: Yes (WEARS O2 AT 5L/NC CONTINUOUSLY. RUL PULMONARY NODULE) Pneumonia, Chronic Bronchitis, COPD Currently Using CPAP: No Currently Using BIPAP: No Cardiac: Yes (STENT X1/ANGIO L EXT ILIAC ART;CABG/STENT X4;CAROTID DZ;CH F;CARDIAC ARREST) Coronary Artery Disease, Deep Vein Thrombosis, Heart Attack, High Cholesterol, Hypertension, Peripheral Vascular Neurological: Yes Stroke Reproductive Disorders: No Sexually Transmitted Disease: No HIV/AIDS: No Genitourinary: No Gastrointestinal: Yes (ANEMIA/GI BLOOD LOSS 04/2022--GASTRITIS, ) Abdominal Hernia, Gastroesophageal Reflux, Diverticulosis, Polyps, Hiatal Hernia, Ulcer Musculoskeletal: Yes (MULTIPLE VERTEBRAL COMPRESSION FRACTURES) Degenerate Disk Disease, Arthritis, Chronic Back Pain, Fractures Endocrine: No HEENT: No Loss of Vision: Denies Hearing Impairment: Denies Cancer: No Psychosocial: Yes Sleep Difficulties, Anxiety, Schizophrenia, Depression Integumentary: No Blood Disorders: Yes (ANEMIA 04/2022--GI BLOOD LOSS--TRANSFUSED 2 UNITS) Adverse Reaction/Blood Tranf: No Family Medical History Diabetes mellitus 19 MOTHER FH: heart disease 19 FATHER Heart Disease, Diabetes SOCIAL HX: -HX OF ALCOHOL ABUSE--CLAIMS HE QUIT YEARS AGO -DENIES DRUG USE -SMOKED 2-3 PPD--QUIT 2017 PSH: -CABG--1 VESSEL BYPASS TO LAD -CARDIAC CATHS AND STENTS X 4, WITH ANGIOPLASTIES--LAST CARDIAC CATH 03/2018--PATENT STENT TO PROXIMAL LAD TO FIRST DIAGONAL, COMPLETE OCCLUSION OF MID LAD AND TO VEIN GRAFT TO LAD; EF 45-50%--NO INTERVENTION DONE AT THAT TIME AND FINDINGS WERE THE SAME THOSE FOUND ON CARDIAC CATH IN 2014 -ANGIOPLASTY AND STENT X 1 TO LEFT LEG/EXTERNAL ILIAC ARTERY 02/2017 -RIGHT CAROTID ENDARTERECTOMY 05/28/[address] BLANKENSHIP AT [facility] -LEFT INGUINAL HERNIA REPAIR -TONSILLECTOMY -EGD/COLONOSCOPY/POLYPECTOMY 05/17/[address] IQBAL: PREOPERATIVE DIAGNOSIS: Symptomatic anemia. POSTOPERATIVE DIAGNOSES: Reflux esophagitis, [place] between grade B and C, small hiatal hernia, 2 cm in size, moderate gastritis, normal duodenum, chronic stage II external, internal hemorrhoids, moderate sigmoid diverticulosis, small polyp of the cecum approximately 3 mm in size. PROCEDURE: EGD with biopsy, colonoscopy with polypectomy with hot biopsy forceps. ADDITIONAL PMH: -HX OF CARDIAC ARREST -CAROTID DISEASE--SEVERE ON RIGHT -RBBB ; LAFB CARDIAC CATH 03/18/[address] CASTILLO: -CONCLUSION: 1. Total occlusion of the mid LAD and the vein graft to the LAD 2. Patent stent in the proximal LAD that is providing good flow to the first diagonal branch 3. Mild disease in the circumflex and right coronary artery 4. Apical akinesia, good systolic function overall, ejection fraction 45-50 percent DISCUSSION AND RECOMMENDATION: Continue to maximize medical therapy Physical Exam Vital Signs Vital Signs - First Documented Capillary Refill : Less Than 3 Seconds Height, Weight, BMI Height: 5'8.00" Weight: 174lbs. 0.0oz. 78.343558dg; 26.00 BMI Method:Stated General Appearance: No Apparent Distress, WD/WN, Other (DOES NOT APPEAR ILL OR TO BE IN ANY DISCOMFORT OR DISTRESS. ) HEENT: Other (EDENTULOUS) Neck: Normal Inspection, Non Tender Respiratory: Chest Non Tender, Normal Breath Sounds, No Accessory Muscle Use, No Respiratory Distress Cardiovascular: Regular Rate, Rhythm, No Edema, No JVD, No Murmur, Normal Peripheral Pulses Gastrointestinal: Non Tender, Soft Extremity: Normal Capillary Refill, Normal Inspection, Normal Range of Motion, Non Tender, No Calf Tenderness, No Pedal Edema Neurologic/Psychiatric: Alert, Oriented x3, No Motor/Sensory Deficits, Normal Mood/Affect, change management coordinator II-XII Norm as Tested Skin: Normal Color, Warm/Dry Progress/Results/Core Measures Results/Orders Lab Results Laboratory Tests Test 08/18/22 22:46 08/19/22 01:10 Range/Units White Blood Count 4.4 4.3-11.0 10^3/uL Red Blood Count 3.59 L 4.30-5.52 10^6/uL Hemoglobin 10.6 L 13.3-17.7 g/dL Hematocrit 35 L 40-54 % Mean Corpuscular Volume 96 80-99 fL Mean Corpuscular Hemoglobin 30 25-34 pg Mean Corpuscular Hemoglobin Concent 31 L 32-36 g/dL Red Cell Distribution Width 12.9 10.0-14.5 % Platelet Count 135 130-400 10^3/uL Mean Platelet Volume 10.0 9.0-12.2 fL Immature Granulocyte % (Auto) 0 % Neutrophils (%) (Auto) 53 42-75 % Lymphocytes (%) (Auto) 35 12-44 % Monocytes (%) (Auto) 9 0-12 % Eosinophils (%) (Auto) 2 0-10 % Basophils (%) (Auto) 0 0-10 % Neutrophils # (Auto) 2.4 1.8-7.8 10^3/uL Lymphocytes # (Auto) 1.6 1.0-4.0 10^3/uL Monocytes # (Auto) 0.4 0.0-1.0 10^3/uL Eosinophils # (Auto) 0.1 0.0-0.3 10^3/uL Basophils # (Auto) 0.0 0.0-0.1 10^3/uL Immature Granulocyte # (Auto) 0.0 0.0-0.1 10^3/uL Prothrombin Time 12.8 12.2-14.7 SEC INR Comment 0.9 0.8-1.4 Activated Partial Thromboplast Time 35 24-35 SEC D-Dimer 0.30 0.00-0.49 UG/ML Sodium Level 140 135-145 MMOL/L Potassium Level 4.2 3.6-5.0 MMOL/L Chloride Level 94 L 98-107 MMOL/L Carbon Dioxide Level 37 H 21-32 MMOL/L Anion Gap 9 5-14 MMOL/L Blood Urea Nitrogen 13 7-18 MG/DL Creatinine 0.86 0.60-1.30 MG/DL Estimat Glomerular Filtration Rate 95 BUN/Creatinine Ratio 15 Glucose Level 81 70-105 MG/DL Calcium Level 9.6 8.5-10.1 MG/DL Corrected Calcium 9.6 8.5-10.1 MG/DL Magnesium Level 1.8 1.6-2.4 MG/DL Total Bilirubin 0.3 0.1-1.0 MG/DL Aspartate Amino Transf (AST/SGOT) 17 5-34 U/L Alanine Aminotransferase (ALT/SGPT) 19 0-55 U/L Alkaline Phosphatase 95 40-136 U/L Total Creatine Kinase 90 30-200 U/L Creatine Kinase MB 1.9 <6.6 NG/ML Myoglobin 43.6 10.0-92.0 NG/ML Troponin I < 0.028 < 0.028 <0.028 NG/ML B-Type Natriuretic Peptide 32.7 <100.0 PG/ML Total Protein 6.9 6.4-8.2 GM/DL Albumin 4.0 3.2-4.5 GM/DL Amylase Level 40 25-125 U/L Lipase 30 8-78 U/L My Orders Orders - DEBBIE ESPINOSA DO Cbc With Automated Diff (08/18/22:43) Magnesium (08/18/22 22:43) Chest 1 View, Ap/Pa Only (08/18/22 22:43) Ekg Tracing (08/18/22 22:43) Comprehensive Metabolic Panel (08/18/22 22:43) Myoglobin Serum (08/18/22 22:43) Protime With Inr (08/18/22:43) Partial Thromboplastin Time (08/18/22 22:43) O2 (08/18/22 22:43) Monitor-Rhythm Ecg Trace Only (08/18/22 22:43) Ed Iv/Invasive Line Start (08/18/22:43) Creatine Kinase (08/18/22 22:43) Creatine Kinase Mb (08/18/22 22:43) Lipase (08/18/22 22:43) Amylase (08/18/22 22:43) Bnp Cass (08/18/22 22:43) Fibrin Degradation Products (08/18/22:43) Troponin I Negrita (3/12/23 22:43) Nitroglycerin Ointment (Nitrobid Ointme (08/18/22 23:30) Ketorolac Injection (Toradol Injection) (08/18/22 23:45) Ekg Tracing (08/19/22 01:13) Troponin I Cass (08/19/22 01:13) Medications Given in ED Current Medications Medications Dose Ordered Sig/Shira Route Start Time Stop Time Status Last Admin Dose Admin Ketorolac Tromethamine 30 mg ONCE ONCE IV 08/18/22 23:45 08/18/22 23:46 DC 08/19/22 00:23 30 MG Nitroglycerin 1 inch ONCE ONCE TOP 08/18/22 23:30 08/18/22 23:31 DC 08/18/22 23:35 1 INCH Vital Signs/I&O 08/18/22 08/18/22 08/18/22 08/19/22 22:43 22:43 22:43 01:56 Temp 37.1 37.1 Pulse 94 109 Resp 24 20 B/P (MAP) 161/111 (128) 125/96 Pulse Ox 95 94 O2 Delivery Nasal Cannula Nasal Cannula Nasal Cannula Nasal Cannula O2 Flow Rate 3.00 3.00 3.00 3.00 Blood Pressure Mean: 128 Progress Progress Note : Progress Note GIVEN: -NITROPASTE FOR CP AND HTN--PAIN IMPROVED SOME, STATES PAIN IS NOW 6/10 -TORADOL--PAIN MUCH IMPROVED REPEAT EKG AND TROPONINS ARE UNCHANGED PT IS SYMPTOM-FREE AT DISMISSAL VITALS ARE STABLE BP DOWN TO 120'S SYSTOLIC. NO DYSPNEA NO HYPOXIA RESTED QUIETLY THROUGHOUT ER STAY NO EVIDENCE OF ACS, PE, DISSECTION, PNEUMONIA OR COPD 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 REVIEWED OLD RECORDS INCLUDING ER VISITS, ADMITS, H&P'S, CONSULTS, TEST RESULTS / PROCEDURES AND DISCHARGE SUMMARIES DISCUSSED TEST RESULTS, ANTICIPATED COURSE, NEED FOR FOLLOW UP AND RETURN PRECAUTIONS. Initial ECG Impression Date: Aug 18, 2022 Initial ECG Impression Time: 22:45 Initial ECG Rate: 91 Initial ECG Rhythm: Normal Sinus (IVCD-INCOMPLETE RBBB AND LAFB.) Initial ECG Comparisson: Unchanged Comment INTERPRETED BY ME EKG : EKG Time: 00:22 Rate: 82 Rhythm: Normal Sinus ECG Comparisson: Unchanged Comment INTERPRETED BY ME Diagnostic Imaging Comments CXR--NO ACUTE PROCESS, PENDING RADIOLOGIST REVIEW Reviewed: Reviewed by Me Departure Impression Primary Impression: Chest pain Additional Impressions: COPD (chronic obstructive pulmonary disease) Chronic chest pain Disposition: 01 HOME, SELF-CARE Condition: Improved Departure-Patient Inst. Decision time for Depature: 01:49 Referrals: PJ BOUCHER MD (PCP) Primary Care Physician JOSHUA CASTILLO MD Patient Instructions: Chest Pain (DC) Add. Discharge Instructions: CONTINUE YOUR MEDICATIONS PRESCRIBED FOLLOW UP WITH DR. CASTILLO THIS WEEK --CALL OFFICE LATER THIS MORNING TO SCHEDULE AN APPOINTMENT RETURN TO ER IF YOUR SYMPTOMS WORSEN All discharge instructions reviewed with patient and/or family. Voiced understanding. DEBBIE ESPINOSA DO Aug 19, 2022 01:34
[2022-08-19 01:56] VITALS: BP 125/96
--- NOTE | 2022-08-19 07:59 | Diagnostic Imaging Report ---
HISTORY: Chest pain COMPARISON: 06/09/2022 TECHNIQUE: Frontal view of the chest. FINDINGS: Lung volumes are mildly low. No consolidation is seen. There is no pleural effusion or pneumothorax. The cardiac silhouette is normal in size. Sternotomy wires and post-CABG changes are seen. IMPRESSION: 1. Low lung volumes with no acute pulmonary abnormalities seen. Dictated by: Dictated on workstation # [id number]
== END 2022-08-19 02:00 | disposition home or self-care (01) ==
LOC: EDUNIT# 22:41 → ER 22:42
DX: J44.9 Chronic obstructive pulmonary disease, unspecified (principal); G89.29 Other chronic pain; I10 Essential (primary) hypertension; Z99.81 Dependence on supplemental oxygen; Z87.891 Personal history of nicotine dependence
CPT/HCPCS: 36415; 71045; 80053; 82150; 82550; 82553; 83690; 83735; 83874; 83880; 84484; 85025; 85379; 85610; 85730; 93005; 93041

== ENCOUNTER 2022-08-27 17:05 | Emergency (ER) | payer MEDICARE, MEDICAID ==
[~2022-08-27] VITALS: Ht 172 cm; Wt 79.0 kg
[2022-08-27] MEDS ORDERED: ASPIRIN 81 MG CHEW (CHILDREN'S ASA) PO ONE (17:30)
[2022-08-27 17:31] LABS: BASOPHILS % (AUTO) 0 % (0-10); HEMATOCRIT 31 % (40-54); MEAN CORPUSCULAR VOLUME 97 fL (80-99)
[2022-08-27 17:33] LABS: EOSINOPHILS # (AUTO) 0.1 10^3/uL (0.0-0.3); EOSINOPHILS % (AUTO) 1 % (0-10); HEMOGLOBIN 9.3 g/dL (13.3-17.7); LYMPHOCYTES # (AUTO) 1.4 10^3/uL (1.0-4.0); LYMPHOCYTES % (AUTO) 32 % (12-44); MEAN CORPUSCULAR HEMOGLOBIN 29 pg (25-34); MEAN CORPUSCULAR HGB CONC 30 g/dL (32-36); MEAN PLATELET VOLUME 10.7 fL (9.0-12.2); MONOCYTES # (AUTO) 0.4 10^3/uL (0.0-1.0); MONOCYTES % (AUTO) 10 % (0-12); NEUTROPHILS # (AUTO) 2.4 10^3/uL (1.8-7.8); NEUTROPHILS % (AUTO) 57 % (42-75); PLATELET COUNT 124 10^3/uL (130-400); WHITE BLOOD COUNT 4.3 10^3/uL (4.3-11.0)
[2022-08-27 17:35] LABS: ALBUMIN 3.7 GM/DL (3.2-4.5); POTASSIUM 4.3 MMOL/L (3.6-5.0)
[2022-08-27 17:36] LABS: CALCIUM 9.1 MG/DL (8.5-10.1)
[2022-08-27 17:37] LABS: INR 0.9 (0.8-1.4); PROTHROMBIN TIME PATIENT 12.6 SEC (12.2-14.7)
--- NOTE | 2022-08-27 17:37 | ED Cardiac General ---
History of Present Illness General Chief Complaint: Chest Pain Stated Complaint: CHEST PAIN Nursing Triage Note: Patient to room 5 via [facility]. EMS reports [place] [facility] [place] having chest pains /. Patient states he is nauseous and dizzy. hx of COPD Source: patient Exam Limitations: no limitations History of Present Illness Date Seen by Provider: Aug 27, 2022 Time Seen by Provider: 17:32 Initial Comments Patient is a 67-year-old male with a history of chronic chest pain presents ED with substernal chest pain. Describes the pain as sharp with radiation to his back. This started 1 hour upon arrival. States he was driving with his son to his doctor appointment with Dr. Owusu who end up calling EMS to come to the ED for further evaluation. Pain has been constant. Rates pain 10 out of 10. Received 1 sublingual nitro at the doctor's office and 2 sublingual nitro by EMS. Patient was given a full aspirin. Currently rates pain 9 out of 10. Reports chronic shortness of breath but does appear worse this evening . He does have COPD requiring 5 L of oxygen daily. Patient has been seen for multiple ER visits and admits due to this chest pain. Patient has had a prior CABG and cardiac stents. Patient with last cardiac cath was in 2018 which showed a total occlusion to his mid LAD and vein graft to the LAD. He had a patent stent to the proximal LAD. Patient denies any fever, chills, nausea, vomit, abdominal pain, cough, swelling the legs or feet or pain in his legs. Allergies and Home Medications Allergies Coded Allergies: budesonide (Verified Allergy, Severe, angioedema, 12/06/18) formoterol (Verified Allergy, Severe, angioedema, pt has rec Albuterol in the past, 01/23/22) tetanus toxoid, adsorbed (Verified Allergy, Mild, hives, 12/06/18) DOROTA Inhibitors (Verified Allergy, Unknown, Angioedema, 12/06/18) Patient Home Medication List Home Medication List Reviewed: Yes Albuterol Sulfate (Ventolin Hfa) 1 Puff Puff, 2 PUFF IH PRN PRN for SHORTNESS OF BREATH, (Reported) Entered as Reported by: GAVIN RUBIO on 03/18/18 0737 Amlodipine Besylate (Amlodipine Besylate) 5 Mg Tablet, 5 MG PO DAILY, (Reported) Entered as Reported by: CELSO SZYMANSKI on 02/15/18 0350 Aripiprazole (Aripiprazole) 30 Mg Tablet, 30 MG PO DAILY, (Reported) Entered as Reported by: JEFF LEWIS on 06/29/20 1249 Aspirin (Aspirin) 81 Mg Tab.chew, 81 MG PO DAILY, (Reported) Entered as Reported by: JEFF LEWIS on 05/01/20 1344 Atorvastatin Calcium (Atorvastatin Calcium) 80 Mg Tablet, 80 MG PO DAILY, (Reported) Entered as Reported by: GAVIN RUBIO on 03/18/18 0737 Bupropion HCl (Bupropion HCl) 75 Mg Tablet, 75 MG PO DAILY, (Reported) Entered as Reported by: CELSO SZYMANSKI on 02/15/18 035 Carvedilol (Carvedilol) 6.25 Mg Tablet, 6.25 MG PO DAILY Prescribed by: MEREDITH RAMOS on 05/05/22 1333 Clarithromycin (Clarithromycin) 250 Mg Tablet, 250 MG PO BID Prescribed by: TAMIKO IQBAL on 05/17/22 1159 Clopidogrel Bisulfate (Clopidogrel) 75 Mg Tablet, 75 MG PO DAILY, (Reported) Entered as Reported by: JEFF LEWIS on 11/08/19 1527 Ferrous Sulfate (Ferrous Sulfate) 325 Mg (65 Mg Iron) Tablet, 325 MG PO BID Prescribed by: ROHIT SAL on 05/05/22 0806 Folic Acid (Folic Acid) 1 Mg Tablet, 1 MG PO DAILY Prescribed by: ROHIT SAL on 05/05/22 0806 Isosorbide Mononitrate (Isosorbide Mononitrate ER) 30 Mg Tab.er.24h, 30 MG PO DAILY, (Reported) Entered as Reported by: PASHA GALEANA on 07/25/16 0945 Metoclopramide HCl (Metoclopramide HCl) 10 Mg Tablet, 10 MG PO DAILY, (Reported) Entered as Reported by: LUBA FUNEZ on 05/16/22 1124 Metronidazole (Metronidazole) 500 Mg Tablet, 500 MG PO BID Prescribed by: TAMIKO IQBAL on 05/17/22 1159 Mirtazapine (Mirtazapine) 30 Mg Tablet, 30 MG PO HS, (Reported) Entered as Reported by: CELSO SZYMANSKI on 02/15/18 035 Montelukast Sodium (Montelukast Sodium) 10 Mg Tablet, 10 MG PO DAILY, (Reported) Entered as Reported by: JEFF LEWIS on 06/29/20 1249 Nitroglycerin (Nitroglycerin) 0.4 Mg Tab.subl, 0.4 MG SL UD PRN for CHEST PAIN (ANGINA), (Reported) Entered as Reported by: HERON BAEZ on 01/28/22 1309 [place] 3 Polyunsat Fatty Acids (Fish Oil 1,000 mg Capsule) 340 Mg-1,000 Mg Cap, 1,000 MG PO DAILY, (Reported) Entered as Reported by: HERON BAEZ on 01/28/22 1308 Omeprazole (Omeprazole) 40 Mg Capsule.dr, 40 MG PO DAILY Prescribed by: TAMIKO IQBAL on 05/17/22 1159 Pantoprazole Sodium (Pantoprazole Sodium) 40 Mg Tablet.dr, 40 MG PO DAILY, (Reported) Entered as Reported by: HERON BAEZ on 01/28/22 1308 Ranolazine (Ranexa) 1,000 Mg Tab.er.12h, 1,000 MG PO DAILY, (Reported) Entered as Reported by: HERON BAEZ on 01/28/22 1310 Sertraline HCl (Sertraline HCl) 100 Mg Tablet, 200 MG PO DAILY, (Reported) Entered as Reported by: JEFF LEWIS on 11/08/19 1527 Sucralfate (Sucralfate) 1 Gram Tablet, 1 GM PO UD, (Reported) Entered as Reported by: LUBA FUNEZ on 05/16/22 1124 Review of Systems Review of Systems Constitutional: No chills, No diaphoresis, No malaise, No weakness EENTM: No Double Vision, No Eye Pain Respiratory: Denies Cough, Denies Orthopnea; Shortness of Air; Denies Wheezing Cardiovascular: Chest Pain Gastrointestinal: Denies Abdominal Pain, Denies Diarrhea, Denies Nausea, Denies Vomiting Genitourinary: Denies Burning, Denies Discharge, Denies Drainage, Denies Frequency Musculoskeletal: No back pain, No joint pain Skin: No change in color, No change in hair/nails All Other Systems Reviewed Negative Unless Noted: Yes Past Wrvpfbe-Dfttiv-Xrotmr Hx Patient Social History Tobacco Use?: No Substance use?: No Alcohol Use?: No Immunizations Up To Date Tetanus Booster (TDap): Unknown PED Vaccines UTD: No First/Initial COVID19 Vaccinat: unknown Second COVID19 Vaccination Guillermo: DECEMBER 2020 Third COVID19 Vaccination Date: 2020 COVID19 Vaccine Artist Representative: Alex Seasonal Allergies Seasonal Allergies: No Past Medical History Surgery/Hospitalization HX: MULTIPLE CARDIAC CATHS/MULTIPLE CORONARY STENTS/ILIAC STENT/CABG/INGUINAL HERNIA/TONSILLECTOMY/CAROTID ENDARTERECTOMY Surgeries: Yes (LEFT INGUINAL HERNIA;CABG WITH STENTS IN HEART AND LEG, R carotid endartect) Abdominal, Cardiac, CABG, Coronary Stent, Eye Surgery, Tonsillectomy, Vascular Surgery Respiratory: Yes (WEARS O2 AT 5L/NC CONTINUOUSLY. RUL PULMONARY NODULE) Pneumonia, Chronic Bronchitis, COPD Currently Using CPAP: No Currently Using BIPAP: No Cardiac: Yes (STENT X1/ANGIO L EXT ILIAC ART;CABG/STENT X4;CAROTID DZ;CHF;CARDIAC ARREST) Coronary Artery Disease, Deep Vein Thrombosis, Heart Attack, High Cholesterol, Hypertension, Peripheral Vascular Neurological: Yes Stroke Reproductive Disorders: No Sexually Transmitted Disease: No HIV/AIDS: No Genitourinary: No Gastrointestinal: Yes (ANEMIA/GI BLOOD LOSS 04/2022--GASTRITIS, ) Abdominal Hernia, Gastroesophageal Reflux, Diverticulosis, Polyps, Hiatal Hernia, Ulcer Musculoskeletal: Yes (MULTIPLE VERTEBRAL COMPRESSION FRACTURES) Degenerate Disk Disease, Arthritis, Chronic Back Pain, Fractures Endocrine: No HEENT: No Loss of Vision: Denies Hearing Impairment: Denies Cancer: No Psychosocial: Yes Sleep Difficulties, Anxiety, Schizophrenia, Depression Integumentary: No Blood Disorders: Yes (ANEMIA 04/2022--GI BLOOD LOSS--TRANSFUSED 2 UNITS) Adverse Reaction/Blood Tranf: No Family Medical History Diabetes mellitus 19 MOTHER FH: heart disease 19 FATHER Heart Disease, Diabetes SOCIAL HX: -HX OF ALCOHOL ABUSE--CLAIMS HE QUIT YEARS AGO -DENIES DRUG USE -SMOKED 2-3 PPD--QUIT 2017 PSH: -CABG--1 VESSEL BYPASS TO LAD -CARDIAC CATHS AND STENTS X 4, WITH ANGIOPLASTIES--LAST CARDIAC CATH 03/2018--PATENT STENT TO PROXIMAL LAD TO FIRST DIAGONAL, COMPLETE OCCLUSION OF MID LAD AND TO VEIN GRAFT TO LAD; EF 45-50%--NO INTERVENTION DONE AT THAT TIME AND FINDINGS WERE THE SAME THOSE FOUND ON CARDIAC CATH IN 2014 -ANGIOPLASTY AND STENT X 1 TO LEFT LEG/EXTERNAL ILIAC ARTERY 02/2017 -RIGHT CAROTID ENDARTERECTOMY 05/28/[address] [facility]IP AT [facility] -LEFT INGUINAL HERNIA REPAIR -TONSILLECTOMY -EGD/COLONOSCOPY/POLYPECTOMY 05/17/[address] IQBAL: PREOPERATIVE DIAGNOSIS: Symptomatic anemia. POSTOPERATIVE DIAGNOSES: Reflux esophagitis, [place] between grade B and C, small hiatal hernia, 2 cm in size, moderate gastritis, normal duodenum, chronic stage II external, internal hemorrhoids, moderate sigmoid diverticulosis, small polyp of the cecum approximately 3 mm in size. PROCEDURE: EGD with biopsy, colonoscopy with polypectomy with hot biopsy forceps. ADDITIONAL PMH: -HX OF CARDIAC ARREST -CAROTID DISEASE--SEVERE ON RIGHT -RBBB ; LAFB CARDIAC CATH 03/18/[address] CARRION: -CONCLUSION: 1. Total occlusion of the mid LAD and the vein graft to the LAD 2. Patent stent in the proximal LAD that is providing good flow to the first diagonal branch 3. Mild disease in the circumflex and right coronary artery 4. Apical akinesia, good systolic function overall, ejection fraction 45-50 percent DISCUSSION AND RECOMMENDATION: Continue to maximize medical therapy Physical Exam Vital Signs Vital Signs - First Documented 08/27/22 08/27/22 17:08 21:05 Temp 36.4 Pulse 85 Resp 16 B/P (MAP) 127/76 (93) Pulse Ox 99 O2 Delivery Nasal Cannula O2 Flow Rate 4.00 Capillary Refill : Less Than 3 Seconds Height, Weight, BMI Height: 5'8.00" Weight: 174lbs. 0.0oz. 78.685300rb; 26.00 BMI Method:Stated General Appearance: No Apparent Distress, WD/WN HEENT: PERRL/EOMI, TMs Normal, Normal ENT Inspection, Pharynx Normal Neck: Full Range of Motion, Normal Inspection, Non Tender, Supple Respiratory: Chest Non Tender, Lungs Clear, Normal Breath Sounds, No Accessory Muscle Use, No Respiratory Distress Cardiovascular: Regular Rate, Rhythm, No Edema, No Gallop, No JVD, No Murmur Gastrointestinal: Normal Bowel Sounds, No Organomegaly, No Pulsatile Mass, Non Tender Extremity: Normal Capillary Refill, Normal Inspection, Normal Range of Motion, Non Tender Neurologic/Psychiatric: Alert, Oriented x3, No Motor/Sensory Deficits, Normal Mood/Affect, chlorinator operator II-XII Norm as Tested Skin: Normal Color, Warm/Dry Progress/Results/Core Measures Results/Orders Lab Results Laboratory Tests Test 08/27/22 17:12 08/27/22 20:18 Range/Units White Blood Count 4.3 4.3-11.0 10^3/uL Red Blood Count 3.20 L 4.30-5.52 10^6/uL Hemoglobin 9.3 L 13.3-17.7 g/dL Hematocrit 31 L 40-54 % Mean Corpuscular Volume 97 80-99 fL Mean Corpuscular Hemoglobin 29 25-34 pg Mean Corpuscular Hemoglobin Concent 30 L 32-36 g/dL Red Cell Distribution Width 12.5 10.0-14.5 % Platelet Count 124 L 130-400 10^3/uL Mean Platelet Volume 10.7 9.0-12.2 fL Immature Granulocyte % (Auto) 0 % Neutrophils (%) (Auto) 57 42-75 % Lymphocytes (%) (Auto) 32 12-44 % Monocytes (%) (Auto) 10 0-12 % Eosinophils (%) (Auto) 1 0-10 % Basophils (%) (Auto) 0 0-10 % Neutrophils # (Auto) 2.4 1.8-7.8 10^3/uL Lymphocytes # (Auto) 1.4 1.0-4.0 10^3/uL Monocytes # (Auto) 0.4 0.0-1.0 10^3/uL Eosinophils # (Auto) 0.1 0.0-0.3 10^3/uL Basophils # (Auto) 0.0 0.0-0.1 10^3/uL Immature Granulocyte # (Auto) 0.0 0.0-0.1 10^3/uL Percent Immature Platelet Fraction 4.3 0.0-7.6 % Prothrombin Time 12.6 12.2-14.7 SEC INR Comment 0.9 0.8-1.4 Activated Partial Thromboplast Time 35 24-35 SEC Sodium Level 142 135-145 MMOL/L Potassium Level 4.3 3.6-5.0 MMOL/L Chloride Level 93 L 98-107 MMOL/L Carbon Dioxide Level 40 H 21-32 MMOL/L Anion Gap 9 5-14 MMOL/L Blood Urea Nitrogen 9 7-18 MG/DL Creatinine 0.83 0.60-1.30 MG/DL Estimat Glomerular Filtration Rate 96 BUN/Creatinine Ratio 11 Glucose Level 97 70-105 MG/DL Calcium Level 9.1 8.5-10.1 MG/DL Corrected Calcium 9.3 8.5-10.1 MG/DL Magnesium Level 1.8 1.6-2.4 MG/DL Total Bilirubin 0.4 0.1-1.0 MG/DL Aspartate Amino Transf (AST/SGOT) 19 5-34 U/L Alanine Aminotransferase (ALT/SGPT) 22 0-55 U/L Alkaline Phosphatase 81 40-136 U/L Myoglobin 40.7 10.0-92.0 NG/ML Troponin I < 0.028 < 0.028 <0.028 NG/ML B-Type Natriuretic Peptide 23.6 <100.0 PG/ML Total Protein 6.4 6.4-8.2 GM/DL Albumin 3.7 3.2-4.5 GM/DL My Orders Orders - BEATRICE MAYNARD PA Cbc With Automated Diff (08/27/22 17:25) Magnesium (08/27/22 17:25) Chest 1 View, Ap/Pa Only (08/27/22 17:25) Comprehensive Metabolic Panel (08/27/22 17:25) Myoglobin Serum (08/27/22 17:25) Protime With Inr (08/27/22 17:25) Partial Thromboplastin Time (08/27/22 17:25) Monitor-Rhythm Ecg Trace Only (08/27/22 17:25) Ed Iv/Invasive Line Start (08/27/22 17:25) Bnp [place]grita (08/27/22 17:25) Troponin I [place] (08/27/22 17:25) Aspirin Chewable Tablet (Baby Aspirin Ch (08/27/22 17:30) Morphine Injection (Morphine Injection (08/27/22 17:45) Morphine Injection (Morphine Injection (08/27/22 19:15) Troponin I [place] (08/27/22 20:11) Medications Given in ED Vital Signs/I&O 08/27/22 08/27/22 17:08 21:05 Temp 36.4 Pulse 85 76 Resp 16 23 B/P (MAP) 127/76 (93) 118/68 Pulse Ox 99 99 O2 Delivery Nasal Cannula O2 Flow Rate 4.00 08/28/22 00:00 Intake Total 100 ml Balance 100 ml Blood Pressure Mean: 93 Comment Sinus rhythm, possible left atrial enlargement, low QRS voltage in pericardial leads, left anterior fascicular block, nonspecific T wave abnormality, 70 bpm, QRS duration 104 MS, QTc 392 MS Departure Communication (PCP) Reviewed previous ER visits, H&P, hospitalist H&P, 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 Patient with a significant cardiac history. Patient presents ED with chest pain and states this feels very similar. Due to current presentation cardiac work-up was initiated with CBC, CMP, troponin, BNP, chest x-ray. Differential diagnosis of coronary artery disease, chest wall pain, PE, pneum othorax, pneumonia. Patient was not tachycardic or hypoxic. Patient is currently on Plavix. Denies leg pain. History of peripheral artery disease with stent placement. Patient was given sublingual nitro at his doctor's office. Was given 2 sublingual nitro by EMS with a full aspirin. Chest pain slightly improved. EKG showed sinus rhythm without evidence of ST elevation or depression or acute changes. History of chronic intermittent chest pain stable angina. Patient was admitted last April with cardiac evaluation and consult. Patient has a history of coronary artery disease. Last cardiac cath March 2018 that did show total occlusion of the mid LAD and the vein graft to the LAD with patent stent in the proximal LAD that was providing flow to the first diagonal branch, mild disease in the circumflex artery and the right coronary artery. The apex of the left ventricular still akinetic with ejection fraction 45 to 50%. Coronary anatomy LESLEE on an operable and was not recommended management conservatively. Chronic systolic and diastolic CHF. Echo October 2021 showed mild concentric hypertrophy ejection fraction 50 to 55%. Patient does have chronic COPD and dyspnea and currently wears 5 L of oxygen and does do breathing treatments at home. No evidence of lower extremity swelling. Patient has been coughing up mucus. CBC grossly unremarkable. Chemistry showed carbon dioxide 40 chronically high. Likely secondary to COPD. Patient initial troponin was negative. Patient was given a dose of morphine 2 mg with continued proving of the blood pressure. Due to his significant cardiac history and improvement of pain delta troponin 3 hours was ordered. 3-hour troponin was negative. Heart score of 4. Patient Was given a second dose of morphine with near improvement of his chest pain. Chest x-ray was negative for pneumonia, pneumothorax, mediastinal widening, pleural effusion, cardiomegaly. Patient BNP normal. Does not appear fluid overloaded. No evidence of pneumonia. Subtle wheezing throughout but appears more chronic. Patient was requesting to be discharged and states he is currently pain-free. Did offer observation due to elevated heart score. Patient would rather go home. Due to his conservative treatment for his CAD patient will be safely discharged. Does have nitro at home that he can utilize if continue having angina. Strongly recommend following up with Dr. Carrion. If any worsening symptoms such as increased chest pain, shortness of breath to return back to ED for further evaluation. Chronic chest pain Tobaccoism - reports that he has stopped smoking, encouraged to continue to refrain from tobacco use Carotid arterial disease - right carotid endarterectomy, Dr Carrion following Impression Primary Impression: Chest pain Disposition: 01 HOME, SELF-CARE Condition: Stable Departure-Patient Inst. Decision time for Depature: 20:54 Referrals: PJ BOUCHER MD (PCP) Primary Care Physician JOSHUA CARRION MD Patient Instructions: Chest Pain Add. Discharge Instructions: Recommend following up with Dr. Carrion's office within this week for further johanny luation. Continue with your nitro at home. Return back to ED if symptoms worsen All discharge instructions reviewed with patient and/or family. Voiced understanding. BEATRICE MAYNARD 21, 2023 17:37
[2022-08-27 17:38] LABS: TOTAL PROTEIN 6.4 GM/DL (6.4-8.2)
[2022-08-27 17:39] LABS: BILIRUBIN,TOTAL 0.4 MG/DL (0.1-1.0)
[2022-08-27 17:41] LABS: CREATININE SERUM 0.83 MG/DL (0.60-1.30)
[2022-08-27 17:44] LABS: MAGNESIUM 1.8 MG/DL (1.6-2.4)
[2022-08-27] MEDS ORDERED: morphine INJ 10 MG/ML 1ML (SYR OR VIAL) IVP ONE ×2 (17:45→19:15)
--- NOTE | 2022-08-27 17:52 | Diagnostic Imaging Report ---
INDICATION: Chest pain. FINDINGS: Lungs clear. No failure, effusion, or pneumothorax. IMPRESSION: Negative. Dictated by: Dictated on workstation # [id number]
[2022-08-27 21:05] VITALS: BP 118/68
== END 2022-08-27 21:27 | disposition home or self-care (01) ==
LOC: EDUNIT# 17:05 → ER 17:06
DX: R07.2 Precordial pain (principal); I44.4 Left anterior fascicular block; J44.9 Chronic obstructive pulmonary disease, unspecified; Z99.81 Dependence on supplemental oxygen; Z87.891 Personal history of nicotine dependence; Z79.02 Long term (current) use of antithrombotics/antiplatelets; Z95.1 Presence of aortocoronary bypass graft
CPT/HCPCS: 36415; 71045; 80053; 83735; 83874; 83880; 84484; 85025; 85610; 85730; 93005; 93041

== ENCOUNTER → 2022-10-30 | Outpatient (CLI) | payer MEDICARE, MEDICAID ==
[~2022-10-30] MED LIST changes: +MONT-47 PO; -MONT10TA21 PO; -ORPH100T PO; +ORPH100T3 PO
--- NOTE | 2022-10-30 11:54 | Diagnostic Imaging Report ---
EXAMINATION: CT chest without contrast (lung screening). TECHNIQUE: Multiple contiguous axial images were obtained through the chest without the use of intravenous contrast according to lung cancer screening protocol. All CT scans use one or more of the following dose optimizing techniques: automated exposure control, MA and/or KvP adjustment based on patient size and exam type or iterative reconstruction. HISTORY: 88 pack year history of smoking. COMPARISON: None available. FINDINGS: Thyroid: The thyroid is normal. Mediastinum: Heart size is normal without significant pericardial effusion. Calcifications of the aorta and coronary vessels. Thoracic aorta is normal in caliber. No suspicious lymphadenopathy. Lungs and airways: Stable 0.5 x 0.5 cm slightly cavitary nodule in the right upper lobe (series 2 image 35). There are mild background emphysematous changes of lungs. Scattered areas of linear atelectasis or scarring greatest within the dependent lungs and lung bases. There is no new suspicious pulmonary lesion. There is bronchial wall thickening. Airways are patent. Upper abdomen: The subphrenic structures are normal. Musculoskeletal: Degenerative changes of the spine without suspicious osseous lesion or compression fracture. Surgical changes from median sternotomy and CABG. IMPRESSION: 1. No new suspicious pulmonary nodules. Recommend continued annual low-dose CT screening. LUNG-RADS CATEGORY: 2 MODIFIER: S Dictated by: Dictated on workstation # [id number]
== END ==
LOC: RAD 10:45
PROVIDERS: ATTEND Internal Medicine Critical Care Medicine
DX: J44.9 Chronic obstructive pulmonary disease, unspecified (principal); Z87.891 Personal history of nicotine dependence
CPT/HCPCS: 71271

== ENCOUNTER 2022-11-10 16:10 | Observation (INO) | payer MEDICARE, MEDICAID ==
[2022-11-10] VITALS (8 sets, daily range): BP systolic 119–141; BP diastolic 64–88
[~2022-11-10] VITALS: Ht 172 cm; Wt 82.1 kg
[2022-11-10 16:25] LABS: BASOPHILS % (AUTO) 0 % (0-10); HEMOGLOBIN 10.4 g/dL (13.3-17.7); MEAN CORPUSCULAR VOLUME 94 fL (80-99)
[2022-11-10 16:27] LABS: EOSINOPHILS # (AUTO) 0.1 10^3/uL (0.0-0.3); EOSINOPHILS % (AUTO) 1 % (0-10); HEMATOCRIT 34 % (40-54); LYMPHOCYTES # (AUTO) 1.7 10^3/uL (1.0-4.0); LYMPHOCYTES % (AUTO) 33 % (12-44); MEAN CORPUSCULAR HEMOGLOBIN 29 pg (25-34); MEAN CORPUSCULAR HGB CONC 31 g/dL (32-36); MEAN PLATELET VOLUME 10.7 fL (9.0-12.2); MONOCYTES # (AUTO) 0.4 10^3/uL (0.0-1.0); MONOCYTES % (AUTO) 9 % (0-12); NEUTROPHILS # (AUTO) 2.9 10^3/uL (1.8-7.8); NEUTROPHILS % (AUTO) 57 % (42-75); PLATELET COUNT 151 10^3/uL (130-400)
[2022-11-10 16:34] LABS: ALBUMIN 3.8 GM/DL (3.2-4.5); CHLORIDE 102 MMOL/L (98-107); POTASSIUM 4.2 MMOL/L (3.6-5.0); SODIUM 141 MMOL/L (135-145)
[2022-11-10 16:36] LABS: CALCIUM 9.2 MG/DL (8.5-10.1)
[2022-11-10 16:37] LABS: GLUCOSE 87 MG/DL (70-105); INR 0.9 (0.8-1.4); PROTHROMBIN TIME PATIENT 12.3 SEC (12.2-14.7); TOTAL PROTEIN 6.8 GM/DL (6.4-8.2)
[2022-11-10 16:38] LABS: CARBON DIOXIDE 31 MMOL/L (21-32)
[2022-11-10 16:39] LABS: BILIRUBIN,TOTAL 0.3 MG/DL (0.1-1.0)
[2022-11-10 16:40] LABS: ALKALINE PHOSPHATASE 91 U/L (40-136); CREATININE SERUM 0.92 MG/DL (0.60-1.30); GFR ESTIMATED 91
[2022-11-10 16:41] LABS: BUN/CREATININE RATIO 10
[2022-11-10] MEDS ORDERED: RT-ALBUTEROL/IPRATROPIUM 3 ML (DUONEB) VIAL INH ONE (16:45)
--- NOTE | 2022-11-10 16:47 | ED Chest Pain ---
General Chief Complaint: Chest Pain Stated Complaint: CHEST PAIN Nursing Triage Note: PT ARRIVED PER EMS, PT CO OF CHEST PAIN, RATES PAIN 8/10. PT STATES STARTED AT ABOUT 1430. PT WEARS O2 @5L PER N/C AT ALL X'S PT HAS TAKEN 2 NITRO AT HOME AND 3 BABY ASA. EMS PUT 1" NITRO PASTE, STARTED #20 JELCO IN L AC Source: patient, EMS, old records Exam Limitations: no limitations History of Present Illness Date Seen by Provider: Nov 10, 2022 Time Seen by Provider: 16:19 Initial Comments This 67-year-old gentleman with known coronary artery disease presents to the emergency room with complaints of chest pain that radiates into his left shoulder and left arm. He feels dizzy as well. Pain started around 1430. He took nitroglycerin x2 at home and EMS placed nitroglycerin paste. These measures have not improved his pain. He has taken a total of 324 mg of aspirin today. He rates his pain as 8.5/10. He describes no alleviating or exacerbating factors. He uses chronic oxygen support at 5 L/min. Dr. Carrion is his primary radio frequency engineer. Dr. Boucher is his primary care provider. Dr. Nirmal Foote is his derrick worker. He had a CT scan performed last month for Dr. Foote which was unremarkable for significant changes. He denies any fever, cough, vomiting, or other associated symptoms. Allergies and Home Medications Allergies Coded Allergies: budesonide (Verified Allergy, Severe, angioedema, 12/06/18) formoterol (Verified Allergy, Severe, angioedema, pt has rec Albuterol in the past, 01/23/22) tetanus toxoid, adsorbed (Verified Allergy, Mild, hives, 12/06/18) DOROTA Inhibitors (Verified Allergy, Unknown, Angioedema, 12/06/18) Patient Home Medication List Home Medication List Reviewed: Yes Albuterol Sulfate (Ventolin Hfa) 1 Puff Puff, 2 PUFF IH PRN PRN for SHORTNESS OF BREATH, (Reported) Entered as Reported by: GAVIN RUBIO on 03/18/18 9179 Amlodipine Besylate (Amlodipine Besylate) 5 Mg Tablet, 5 MG PO DAILY, (Reported) Entered as Reported by: CELSO SZYMANSKI on 02/15/18 4860 Last Action: Continued Aripiprazole (Aripiprazole) 30 Mg Tablet, 30 MG PO DAILY, (Reported) Entered as Reported by: JEFF LEWIS on 06/29/20 1249 Last Action: Last Taken Edited Aspirin (Aspirin) 81 Mg Tab.chew, 81 MG PO DAILY, (Reported) Entered as Reported by: JEFF LEWIS on 05/01/20 1344 Last Action: Continued Atorvastatin Calcium (Atorvastatin Calcium) 80 Mg Tablet, 80 MG PO DAILY, (Reported) Entered as Reported by: GAVIN RUBIO on 03/18/18 0737 Last Action: Continued Bupropion HCl (Bupropion HCl) 75 Mg Tablet, 75 MG PO DAILY, (Reported) Entered as Reported by: CELSO SZYMANSKI on 02/15/18 035 Last Action: Continued Carvedilol (Carvedilol) 6.25 Mg Tablet, 6.25 MG PO DAILY Prescribed by: MEREDITH RAMOS on 05/05/22 1333 Last Action: Continued Clopidogrel Bisulfate (Clopidogrel) 75 Mg Tablet, 75 MG PO DAILY, (Reported) Entered as Reported by: JEFF LEWIS on 11/08/19 1527 Last Action: Continued Fluticasone/Salmeterol (Advair 250-50 Diskus) 250 Mcg-50 Mcg/Dose Blst.w.dev, 1 EACH IH, (Reported) Entered as Reported by: ERNSETINE PIERRE on 11/10/22 2115 Last Action: New Order Isosorbide Mononitrate (Isosorbide Mononitrate ER) 30 Mg Tab.er.24h, 60 MG PO DAILY Prescribed by: ROHIT SAL on 11/11/22 1006 Mirtazapine (Mirtazapine) 30 Mg Tablet, 30 MG PO HS, (Reported) Entered as Reported by: CELSO SZYMANSKI on 02/15/18 035 Last Action: Reviewed Montelukast Sodium (Montelukast Sodium) 10 Mg Tablet, 10 MG PO DAILY, (Reported) Entered as Reported by: JEFF LEWIS on 06/29/20 1249 Last Action: Reviewed Nitroglycerin (Nitroglycerin) 0.4 Mg Tab.subl, 0.4 MG SL UD PRN for CHEST PAIN ( ANGINA), (Reported) Entered as Reported by: HERON BAEZ on 01/28/22 1309 Last Action: Reviewed Elrod 3 Polyunsat Fatty Acids (Fish Oil 1,000 mg Capsule) 340 Mg-1,000 Mg Cap, 1,000 MG PO DAILY, (Reported) Entered as Reported by: HERON BAEZ on 01/28/22 1308 Last Action: Reviewed Omeprazole (Omeprazole) 40 Mg Capsule.dr, 40 MG PO DAILY Prescribed by: TAMIKO IQBAL on 05/17/22 1159 Last Action: Converted Ranolazine (Ranexa) 1,000 Mg Tab.er.12h, 1,000 MG PO DAILY, (Reported) Entered as Reported by: HERON BAEZ on 01/28/22 1310 Last Action: Converted Sertraline HCl (Sertraline HCl) 100 Mg Tablet, 200 MG PO DAILY, (Reported) Entered as Reported by: JEFF LEWIS on 11/08/19 1527 Last Action: Continued Tiotropium [place] (Spiriva Respimat 2.5MCG/ACTUATION) 2.5 Mcg/Actuation Mist.inhal, 2 PUFF IH DAILY, (Reported) Entered as Reported by: ERNESTINE PIERRE on 11/10/22 211 Last Action: New Order Discontinued Medications Clarithromycin (Clarithromycin) 250 Mg Tablet, 250 MG PO BID Discontinued Reason: No Longer Taking Prescribed by: TAMIKO IQBAL on 05/17/22 115 Last Action: Discontinued Ferrous Sulfate (Ferrous Sulfate) 325 Mg (65 Mg Iron) Tablet, 325 MG PO BID Discontinued Reason: No Longer Taking Prescribed by: ROHIT SAL on 05/05/22 0806 Last Action: Discontinued Folic Acid (Folic Acid) 1 Mg Tablet, 1 MG PO DAILY Discontinued Reason: No Longer Taking Prescribed by: ROHIT SAL on 05/05/22 08 Last Action: Discontinued Metoclopramide HCl (Metoclopramide HCl) 10 Mg Tablet, 10 MG PO DAILY, (Reported) Discontinued Reason: No Longer Taking Entered as Reported by: LUBA FUNEZ on 05/16/22 1124 Last Action: Discontinued Metronidazole (Metronidazole) 500 Mg Tablet, 500 MG PO BID Discontinued Reason: No Longer Taking Prescribed by: TAMIKO IQBAL on 05/17/221158 Last Action: Discontinued Pantoprazole Sodium (Pantoprazole Sodium) 40 Mg Tablet.dr, 40 MG PO DAILY, (Reported) Entered as Reported by: HERON BAEZ on 01/28/22 1308 Last Action: Discontinued Sucralfate (Sucralfate) 1 Gram Tablet, 1 GM PO UD, (Reported) Discontinued Reason: No Longer Taking Entered as Reported by: LUBA FUNEZ on 05/16/22 1124 Last Action: Discontinued Review of Systems Review of Systems Constitutional: no symptoms reported EENTM: No Symptoms Reported Respiratory: See HPI Cardiovascular: See HPI Gastrointestinal: No Symptoms Reported Genitourinary: No Symptoms Reported Musculoskeletal: no symptoms reported Skin: no symptoms reported Psychiatric/Neurological: No Symptoms Reported Endocrine: No Symptoms Reported Hematologic/Lymphatic: No Symptoms Reported Past Caluloe-Urkfwe-Hmibij Hx Patient Social History Tobacco Use?: No Smoking Status: Former Smoker Substance use?: No Alcohol Use?: No Pt feels they are or have been: No Immunizations Up To Date Tetanus Booster (TDap): Unknown PED Vaccines UTD: No First/Initial COVID19 Vaccinat: unknown Second COVID19 Vaccination Guillermo: unknown Third COVID19 Vaccination Date: unknown Seasonal Allergies Seasonal Allergies: No Past Medical History Surgery/Hospitalization HX: MULTIPLE CARDIAC CATHS/MULTIPLE CORONARY STENTS/ILIAC STENT/CABG/INGUINAL HERNIA/TONSILLECTOMY/CAROTID ENDARTERECTOMY Surgeries: Yes (LEFT INGUINAL HERNIA;CABG WITH STENTS IN HEART AND LEG, R carotid endartect) Abdominal, Cardiac, CABG, Coronary Stent, Eye Surgery, Tonsillectomy, Vascular Surgery Respiratory: Yes (WEARS O2 AT 5L/NC CONTINUOUSLY. RUL PULMONARY NODULE) Pneumonia, Chronic Bronchitis, COPD Currently Using CPAP: No Currently Using BIPAP: No Cardiac: Yes (STENT X1/ANGIO L EXT ILIAC ART;CABG/STENT X4;CAROTID DZ;CHF;CARDIAC ARREST) Coronary Artery Disease, Deep Vein Thrombosis, Heart Attack, High Cholesterol, Hypertension, Peripheral Vascular Neurological: Yes Stroke Reproductive Disorders: No Sexually Transmitted Disease: No HIV/AIDS: No Genitourinary: No Gastrointestinal: Yes (ANEMIA/GI BLOOD LOSS 04/2022--GASTRITIS, ) Abdominal Hernia, Gastroesophageal Reflux, Diverticulosis, Polyps, Hiatal Hernia, Ulcer Musculoskeletal: Yes (MULTIPLE VERTEBRAL COMPRESSION FRACTURES) Degenerate Disk Disease, Arthritis, Chronic Back Pain, Fractures Endocrine: No HEENT: No Loss of Vision: Denies Hearing Impairment: Denies Cancer: No Psychosocial: Yes Sleep Difficulties, Anxiety, Schizophrenia, Depression Integumentary: No Blood Disorders: Yes (ANEMIA 04/2022--GI BLOOD LOSS--TRANSFUSED 2 UNITS) Adverse Reaction/Blood Tranf: No Family Medical History Diabetes mellitus 19 MOTHER FH: heart disease 19 FATHER Heart Disease, Diabetes SOCIAL HX: -HX OF ALCOHOL ABUSE--CLAIMS HE QUIT YEARS AGO -DENIES DRUG USE -SMOKED 2-3 PPD--QUIT 2017 PSH: -CABG--1 VESSEL BYPASS TO LAD -CARDIAC CATHS AND STENTS X 4, WITH ANGIOPLASTIES--LAST CARDIAC CATH 03/2018--PATENT STENT TO PROXIMAL LAD TO FIRST DIAGONAL, COMPLETE OCCLUSION OF MID LAD AND TO VEIN GRAFT TO LAD; EF 45-50%--NO INTERVENTION DONE AT THAT TIME AND FINDINGS WERE THE SAME THOSE FOUND ON CARDIAC CATH IN 2014 -ANGIOPLASTY AND STENT X 1 TO LEFT LEG/EXTERNAL ILIAC ARTERY 02/2017 -RIGHT CAROTID ENDARTERECTOMY 05/28/[address] BLANKENSHIP AT [facility] -LEFT INGUINAL HERNIA REPAIR -TONSILLECTOMY -EGD/COLONOSCOPY/POLYPECTOMY 05/17/[address] IQBAL: PREOPERATIVE DIAGNOSIS: Symptomatic anemia. POSTOPERATIVE DIAGNOSES: Reflux esophagitis, Frontier between grade B and C, small hiatal hernia, 2 cm in size, moderate gastritis, normal duodenum, chronic stage II external, internal hemorrhoids, moderate sigmoid diverticulosis, small polyp of the cecum approximately 3 mm in size. PROCEDURE: EGD with biopsy, colonoscopy with polypectomy with hot biopsy forceps. ADDITIONAL PMH: -HX OF CARDIAC ARREST -CAROTID DISEASE--SEVERE ON RIGHT -RBBB ; LAFB CARDIAC CATH 03/18/[address] CARRION: -CONCLUSION: 1. Total occlusion of the mid LAD and the vein graft to the LAD 2. Patent stent in the proximal LAD that is providing good flow to the first diagonal branch 3. Mild disease in the circumflex and right coronary artery 4. Apical akinesia, good systolic function overall, ejection fraction 45-50 percent DISCUSSION AND RECOMMENDATION: Continue to maximize medical therapy Physical Exam Vital Signs Vital Signs - First Documented 11/10/22 11/10/22 16:10 16:56 Temp 36.7 Pulse 75 Resp 11 B/P (MAP) 127/85 (99) Pulse Ox 100 O2 Delivery Nasal Cannula O2 Flow Rate 5.00 Capillary Refill : Less Than 3 Seconds Height, Weight, BMI Height: 5'8.00" Weight: 174lbs. 0.0oz. 78.510762ii; 26.00 BMI Method:Stated General Appearance: WD/WN, Mild Distress HEENT: PERRL/EOMI, Normal ENT Inspection Neck: Normal Inspection Respiratory: Lungs Clear, No Accessory Muscle Use, No Respiratory Distress, Decreased Breath Sounds; No Wheezing Cardiovascular: Regular Rate, Rhythm, No Edema, No Murmur Gastrointestinal: Normal Bowel Sounds, Non Tender, Soft Extremity: Normal Inspection, Non Tender, No Calf Tenderness, No Pedal Edema, Other (Negative Mikayla) Neurologic/Psychiatric: Alert, Oriented x3, No Motor/Sensory Deficits, Normal Mood/Affect Skin: Normal Color, Warm/Dry Progress/Results/Core Measures Results/Orders Lab Results Laboratory Tests Test 11/10/22 16:19 11/10/22 19:00 Range/Units White Blood Count 5.0 4.3-11.0 10^3/uL Red Blood Count 3.57 L 4.30-5.52 10^6/uL Hemoglobin 10.4 L 13.3-17.7 g/dL Hematocrit 34 L 40-54 % Mean Corpuscular Volume 94 80-99 fL Mean Corpuscular Hemoglobin 29 25-34 pg Mean Corpuscular Hemoglobin Concent 31 L 32-36 g/dL Red Cell Distribution Width 13.0 10.0-14.5 % Platelet Count 151 130-400 10^3/uL Mean Platelet Volume 10.7 9.0-12.2 fL Immature Granulocyte % (Auto) 0 % Neutrophils (%) (Auto) 57 42-75 % Lymphocytes (%) (Auto) 33 12-44 % Monocytes (%) (Auto) 9 0-12 % Eosinophils (%) (Auto) 1 0-10 % Basophils (%) (Auto) 0 0-10 % Neutrophils # (Auto) 2.9 1.8-7.8 10^3/uL Lymphocytes # (Auto) 1.7 1.0-4.0 10^3/uL Monocytes # (Auto) 0.4 0.0-1.0 10^3/uL Eosinophils # (Auto) 0.1 0.0-0.3 10^3/uL Basophils # (Auto) 0.0 0.0-0.1 10^3/uL Immature Granulocyte # (Auto) 0.0 0.0-0.1 10^3/uL Percent Immature Platelet Fraction 3.6 0.0-7.6 % Prothrombin Time 12.3 12.2-14.7 SEC INR Comment 0.9 0.8-1.4 Activated Partial Thromboplast Time 24 24-35 SEC D-Dimer 0.87 H 0.00-0.49 UG/ML Sodium Level 141 135-145 MMOL/L Potassium Level 4.2 3.6-5.0 MMOL/L Chloride Level 102 98-107 MMOL/L Carbon Dioxide Level 31 21-32 MMOL/L Anion Gap 8 5-14 MMOL/L Blood Urea Nitrogen 9 7-18 MG/DL Creatinine 0.92 0.60-1.30 MG/DL Estimat Glomerular Filtration Rate 91 BUN/Creatinine Ratio 10 Glucose Level 87 70-105 MG/DL Calcium Level 9.2 8.5-10.1 MG/DL Corrected Calcium 9.4 8.5-10.1 MG/DL Magnesium Level 1.7 1.6-2.4 MG/DL Total Bilirubin 0.3 0.1-1.0 MG/DL Aspartate Amino Transf (AST/SGOT) 18 5-34 U/L Alanine Aminotransferase (ALT/SGPT) 21 0-55 U/L Alkaline Phosphatase 91 40-136 U/L Myoglobin 46.4 10.0-92.0 NG/ML Troponin I < 0.028 < 0.028 <0.028 NG/ML C-Reactive Protein High Sensitivity 0.45 0.00-0.50 MG/DL B-Type Natriuretic Peptide 26.5 <100.0 PG/ML Total Protein 6.8 6.4-8.2 GM/DL Albumin 3.8 3.2-4.5 GM/DL Smear Scan YES My Orders Orders - IRIS NELSON MD Ekg Tracing (11/10/22 16:11) Cbc With Automated Diff (11/10/22 16:19) Magnesium (11/10/22 16:19) Chest 1 View, Ap/Pa Only (11/10/22 16:19) Comprehensive Metabolic Panel (11/10/22 16:19) Myoglobin Serum (11/10/22 16:19) Protime With Inr (11/10/22 16:19) Partial Thromboplastin Time (11/10/22 16:19) O2 (11/10/22 16:19) Monitor-Rhythm Ecg Trace Only (11/10/22 16:19) Lipid Panel (11/11/22 06:00) Ed Iv/Invasive Line Start (11/10/22 16:19) Troponin I [place] (11/10/22 16:19) Bnp [place] (11/10/22 16:42) Albuterol/Ipra Inhalation Soln (Duoneb I (11/10/22 16:45) Svn Small Volume Nebulizer (11/10/22 16:42) Morphine Injection (Morphine Injection (11/10/22 17:27) Ondansetron Injection (Zofran Injectio (11/10/22 17:30) Lidocaine 2% Viscous 15 Ml (Xylocaine Vi (11/10/22 17:30) Antacid Suspension (Mylanta Suspension (11/10/22 17:30) Fibrin Degradation Products (11/10/22 18:24) Hs C Reactive Protein (11/10/22 18:25) Troponin I Negrita (11/10/22 18:35) Ct Angio Chest W (R/O Pe) (11/10/22 18:46) Iohexol Injection (Omnipaque 350 Mg/Ml 1 (11/10/22 19:00) Received Contrast (Hold Metformin- Contr (11/10/22 19:00) Ns (Ivpb) (Sodium Chloride 0.9% Ivpb Bag (11/10/22 19:00) Medications Given in ED Current Medications Medications Dose Ordered Sig/Shira Route Start Time Stop Time Status Last Admin Dose Admin Al Hydrox/Mg Hydrox/Simethicone 30 ml ONCE ONCE PO 11/10/22 17:30 11/10/22 17:31 DC 11/10/22 17:40 30 ML Albuterol/ Ipratropium 3 ml ONCE ONCE INH 11/10/22 16:45 11/10/22 16:46 DC 11/10/22 16:56 3 ML Iohexol 100 ml ONCE ONCE IV 11/10/22 19:00 11/10/22 19:01 DC 11/10/22 19:13 74 ML Lidocaine HCl 15 ml ONCE ONCE PO 11/10/22 17:30 11/10/22 17:31 DC 11/10/22 17:40 15 ML Ondansetron HCl 4 mg ONCE ONCE IVP 11/10/22 17:30 11/10/22 17:31 DC 11/10/22 17:40 4 MG Sodium Chloride 100 ml ONCE ONCE IV 11/10/22 19:00 11/10/22 19:01 DC 11/10/22 19:14 80 ML Vital Signs/I&O 11/10/22 11/10/22 16:10 16:56 Temp 36.7 Pulse 75 Resp 11 B/P (MAP) 127/85 (99) Pulse Ox 100 O2 Delivery Nasal Cannula Nasal Cannula O2 Flow Rate 5.00 Blood Pressure Mean: 99 Progress Progress Note #1: Time: 18:26 Progress Note Patient was interviewed and examined shortly after arrival. Nitroglycerin administered at home and Nitropaste applied by EMS did not improve his pain. Labs were obtained, reviewed, and interpreted by me. CBC was unremarkable. CMP, magnesium, troponin, and BNP were all unremarkable. Chest x-ray was viewed by me. I do not appreciate any acute abnormalities. Radiologist interpretation suggested new consolidation in the right lower lung. Patient's symptoms do not seem consistent with pneumonia. He does not have fever, leukocytosis, or cough. His chest symptoms are more left-sided and radiating into the arm and shoulder. I have ordered a CRP to help differentiate. A DuoNeb treatment was administered but did not improve his chest pain. GI cocktail accompanied by Zofran was administered but did not improve his pain. To further evaluate source of pain, D-dimer has been ordered. If D-dimer is positive, CT angiogram will be obtained. If CRP is elevated or if CT angiogram is obtained and pneumonia is found, he will be treated accordingly. Progress Note #2: Time: 19:20 Progress Note Morphine was given to treat pain that was not relieved by fentanyl, GI cocktail, or DuoNeb treatment. D-dimer was slightly elevated. CT angiogram was obtained. I have viewed the CT angiogram and see no evidence of pneumonia or pulmonary embolus. Radiologist interpretation is pending. Repeat troponin is also pending at this time. Progress Note #3: Time: 20:08 Progress Note Repeat troponin was negative. CT angiogram was read as negative by the radiologist. I have discussed the case with Dr. Gray, radio frequency engineer on-call, as well as Dr. Luque, admitting hospitalist. All are agreeable to admission considering persistent chest pain in the context of significant coronary artery disease. Patient reports his pain is 3/10 after the morphine. We discussed CODE STATUS, and patient requests full code. Initial ECG Impression Date: Nov 10, 2022 Initial ECG Impression Time: 16:16 Initial ECG Rate: 73 Initial ECG Rhythm: Normal Sinus Comment Sinus rhythm with no ST elevation or depression. Right bundle branch block. No axis deviation. No major changes from prior EKG in August. EKG was interpreted by me and compared with prior by me personally. Diagnostic Imaging Diagonstic Imaging: Xray Plain Films/CT/US/NM/MRI: chest Comments NAME: [facility] REC#: [id number] PT STATUS: REG ER : 1955 PHYSICIAN: IRIS NELSON MD ADMIT DATE: 11/10/22/ER Signed Date of Exam:11/10/22 CHEST 1 VIEW, AP/PA ONLY INDICATION: Chest pain. COMPARISON: 08/27/2022. DISCUSSION: Single portable upright view of the chest was obtained. Consolidation noted within the right lung base, likely pneumonia. Normal heart size. Median sternotomy is present. No pleural fluid or pneumothorax. No osseous abnormality. IMPRESSION: 1. New right lung base consolidation, likely pneumonia. Dictated by: Dictated on workstation # [id number] Dict: 11/10/22 1646 Trans: 11/10/22 1701 CVB [id number] Interpreted by: DALLIN CURTIS MD Electronically signed by: DALLIN CURTIS MD 11/10/22 1701 Diagonstic Imaging: CT Plain Films/CT/US/NM/MRI: chest Comments NAME: [facility] REC#: [id number] PT STATUS: REG ER : 1955 PHYSICIAN: IRIS NELSON MD ADMIT DATE: 11/10/22/ER Draft Date of Exam:11/10/22 CT ANGIO CHEST W (R/O PE) Exam: CT angiography chest with intravenous contrast. Date: November 10, 2022. Indication: 67-year-old male, chest pain. Positive D-dimer. Comparison chest radiograph November 10, 2022. Technique: Axial CT angiogram images of the chest were obtained with intravenous contrast. Coronal and sagittal as well as 3-dimensional reformats were obtained and provided. All CT scans use one or more of the following dose optimizing techniques: automated exposure control, MA and/or KvP adjustment based on patient size and exam type or iterative reconstruction. . Findings: There is mild atelectasis in the right and left lower lobes. There are very mild upper lobe findings of emphysema. There is no identified pulmonary nodule or lung mass. There is no additional identified focal airspace consolidation. There is no pneumothorax. There is no pleural effusion. The more central airways are patent. There is no identified pulmonary embolus. There are atherosclerotic calcifications. The heart is not grossly enlarged. There is no identified pericardial effusion. There is no identified abnormally enlarged mediastinal, hilar, or axillary lymph node which meets CT size criteria for adenopathy. The imaged portions of the upper abdomen are grossly unremarkable. There are multilevel degenerative changes of the spine. There are median sternotomy wires. There is no identified acute bony abnormality. Impression: 1. No identified pulmonary embolus or other acute cardiopulmonary abnormality. Dictated on workstation # [id number] Dict: 11/10/221922 Trans: 11/10/221929 [facility] [id number] Interpreted by: KUN LOCKWOOD MD Departure Communication (Admissions) Dr. Luque Time/Spoke to Consulting Phy: 20:00 Impression Primary Impression: Chest pain Qualified Codes: R07.9 - Chest pain, unspecified Additional Impression: History of coronary artery disease Disposition: ADMITTED INPATIENT Condition: Improved Admissions Decision to Admit Reason: Admit from ER (General) Decision to Admit/Date: Nov 10, 2022 Time/Decision to Admit Time: 20:00 Departure-Patient Inst. Referrals: PJ BOUCHER MD (PCP/Family) Primary Care Physician Scripts Isosorbide Mononitrate (Isosorbide Mononitrate ER) 30 Mg Tab.er.24h 60 MG PO DAILY for 30 Days, #60 TAB Prov: ROHIT SAL MD 11/11/22 Copy Copies To 1: PJ BOUCHER MD, JOSHUA T MD Nov 10, 2022 16:47
--- NOTE | 2022-11-10 16:51 | Diagnostic Imaging Report ---
INDICATION: Chest pain. COMPARISON: 08/27/2022. DISCUSSION: Single portable upright view of the chest was obtained. Consolidation noted within the right lung base, likely pneumonia. Normal heart size. Median sternotomy is present. No pleural fluid or pneumothorax. No osseous abnormality. IMPRESSION: 1. New right lung base consolidation, likely pneumonia. Dictated by: Dictated on workstation # [id number]
[2022-11-10 17:04] LABS: SMEAR SCAN COMMENT YES
[2022-11-10 17:15] LABS: ALANINE AMINOTRANSFERASE 21 U/L (0-55)
[2022-11-10 17:16] LABS: MAGNESIUM 1.7 MG/DL (1.6-2.4)
[2022-11-10] MEDS ORDERED: morphine INJ 10 MG/ML 1ML (SYR OR VIAL) IVP STA (17:27)
[2022-11-10] MEDS ORDERED: ANTACID SUSP 30 ML UDC (MYLANTA) PO ONE (17:30)
[2022-11-10] MEDS ORDERED: ONDANSETRON 4 MG/2 ML (SDV) Z0FRAN IVP ONE (17:30)
[2022-11-10] MEDS ORDERED: LIDOCAINE 2% VISCOUS 15 ML UDC PO ONE (17:30)
[2022-11-10] MEDS ORDERED: NS 100 ML (IVPB) BAG IV ONE (19:00)
[2022-11-10] MEDS ORDERED: IOHEXOL 350 MG/ML 100 ML (OMNIPAQUE 350) VIAL IV ONE (19:00)
[2022-11-10] MEDS ORDERED: HOLD METFORMIN - RECEIVED CONTRAST 20 ML VIAL IV SCH (19:00)
--- NOTE | 2022-11-10 19:31 | Diagnostic Imaging Report ---
Exam: CT angiography chest with intravenous contrast. Date: November 10, 2022. Indication: 67-year-old male, chest pain. Positive D-dimer. Comparison chest radiograph November 10, 2022. Technique: Axial CT angiogram images of the chest were obtained with intravenous contrast. Coronal and sagittal as well as 3-dimensional reformats were obtained and provided. All CT scans use one or more of the following dose optimizing techniques: automated exposure control, MA and/or KvP adjustment based on patient size and exam type or iterative reconstruction. . Findings: There is mild atelectasis in the right and left lower lobes. There are very mild upper lobe findings of emphysema. There is no identified pulmonary nodule or lung mass. There is no additional identified focal airspace consolidation. There is no pneumothorax. There is no pleural effusion. The more central airways are patent. There is no identified pulmonary embolus. There are atherosclerotic calcifications. The heart is not grossly enlarged. There is no identified pericardial effusion. There is no identified abnormally enlarged mediastinal, hilar, or axillary lymph node which meets CT size criteria for adenopathy. The imaged portions of the upper abdomen are grossly unremarkable. There are multilevel degenerative changes of the spine. There are median sternotomy wires. There is no identified acute bony abnormality. Impression: 1. No identified pulmonary embolus or other acute cardiopulmonary abnormality. Dictated by: Dictated on workstation # [id number]
[2022-11-10] MEDS ORDERED: FLUT1DIS26 IH (21:15)
[2022-11-10] MEDS ORDERED: TIOT4MIS2 IH (21:15)
[2022-11-10] MEDS ORDERED: ONDANSETRON 4 MG/2 ML (SDV) Z0FRAN IVP PRN (21:45)
[2022-11-10] MEDS ORDERED: RT-ALBUTEROL/IPRATROPIUM 3 ML (DUONEB) VIAL INH PRN (21:45)
[2022-11-10] MEDS ORDERED: morphine INJ 4 MG/ML 1 ML (VIAL/SYRINGE) IV PRN (21:45)
[2022-11-11] VITALS: BP 139/81
[2022-11-11 01:00] VITALS: BP 104/59
[2022-11-11 04:00] VITALS: BP 128/71
[2022-11-11 05:00] LABS: BASOPHILS % (AUTO) 0 % (0-10); EOSINOPHILS # (AUTO) 0.1 10^3/uL (0.0-0.3); EOSINOPHILS % (AUTO) 1 % (0-10); HEMATOCRIT 31 % (40-54); HEMOGLOBIN 9.5 g/dL (13.3-17.7); LYMPHOCYTES # (AUTO) 1.7 10^3/uL (1.0-4.0); LYMPHOCYTES % (AUTO) 37 % (12-44); MEAN CORPUSCULAR HEMOGLOBIN 29 pg (25-34); MEAN CORPUSCULAR HGB CONC 31 g/dL (32-36); MEAN CORPUSCULAR VOLUME 94 fL (80-99); MEAN PLATELET VOLUME 10.4 fL (9.0-12.2); MONOCYTES # (AUTO) 0.5 10^3/uL (0.0-1.0); MONOCYTES % (AUTO) 10 % (0-12); NEUTROPHILS # (AUTO) 2.3 10^3/uL (1.8-7.8); NEUTROPHILS % (AUTO) 51 % (42-75); PLATELET COUNT 148 10^3/uL (130-400); WHITE BLOOD COUNT 4.5 10^3/uL (4.3-11.0)
[2022-11-11 05:17] LABS: POTASSIUM 3.9 MMOL/L (3.6-5.0)
[2022-11-11 05:23] LABS: CREATININE SERUM 0.93 MG/DL (0.60-1.30)
[2022-11-11] MEDS ORDERED: PANTOPRAZOLE 40 MG (PROTONIX) TAB PO SCH (06:30)
[2022-11-11] MEDS ORDERED: RT-ALBUTEROL/IPRATROPIUM 3 ML (DUONEB) VIAL INH SCH (07:00)
[2022-11-11 07:28] VITALS: BP 143/83
[2022-11-11 08:26] VITALS: BP 143/83
[2022-11-11] MEDS ORDERED: CLOPIDOGREL 75 MG (PLAVIX) TABLET PO SCH (09:00)
[2022-11-11] MEDS ORDERED: RANOLAZINE ER 500 MG TAB (RANEXA) PO SCH (09:00)
[2022-11-11] MEDS ORDERED: ASPIRIN E.C. 81 MG (ECOTRIN) TAB PO SCH (09:00)
--- NOTE | 2022-11-11 09:55 | Consultation-Cardiology ---
HPI-Cardiology Cardiology Consultation Date of Consultation 11/11/22 Date of Admission Time Seen by Provider: 09:51 Indication: Chest pain HPI 67-year-old gentleman with a history of coronary artery disease, CABG, multiple intervention in the past. Has been having episodes of chest pain on and off on the left side radiating to the left arm and shoulder. Took sublingual nitrogly cerin and aspirin came to the emergency room yesterday evening. Was feeling better and started to have retrosternal chest discomfort today. No shortness of breath beyond his baseline. No palpitation, no syncope or near syncopal episodes Home Medications & Allergies Allergies: Coded Allergies: budesonide (Verified Allergy, Severe, angioedema, 12/06/18) formoterol (Verified Allergy, Severe, angioedema, pt has rec Albuterol in the past, 01/23/22) tetanus toxoid, adsorbed (Verified Allergy, Mild, hives, 12/06/18) DOROTA Inhibitors (Verified Allergy, Unknown, Angioedema, 12/06/18) Home Medication List Reviewed: Yes [id number] Hx Patient Social History Marital Status: Employed/Student: retired Drug of Choice: DENIES Smoking Status: Former Smoker Former smoker/When Quit: Aug 21, 2014 Type Used: Cigarettes 2nd Hand Smoke Exposure: Yes Recent Hopitalizations: No Alcohol Use?: No Immunizations Up To Date Tetanus Booster (TDap): Unknown Date of Pneumonia Vaccine: Apr 26, 2020 Date of Influenza Vaccine: Apr 26, 2020 Past Medical History Discussed below Family Medical History Significant Family History: Heart Disease, Diabetes Family History: Diabetes mellitus 19 MOTHER FH: heart disease 19 FATHER Review of Systems-General Review of Systems Constitutional: no symptoms reported, weakness EENTM: see HPI, no symptoms reported Respiratory: see HPI; No cough; dyspnea on exertion; No hemoptysis, No orthopnea, No phlegm; short of breath; No stridor, No wheezing, No other Cardiovascular: see HPI, chest pain; No edema, No Hx of Intervention, No palpitations, No syncope, No vascular heart diseas, No other Gastrointestinal: no symptoms reported, see HPI Genitourinary: no symptoms reported, see HPI Musculoskeletal: no symptoms reported Skin: no symptoms reported Psychiatric/Neurological: No Symptoms Reported Reviewed Test Results Reviewed Test Results Lab Laboratory Tests Test 11/10/22 16:19 11/10/22 19:00 11/11/22 04:35 Range/Units White Blood Count 5.0 4.5 4.3-11.0 10^3/uL Red Blood Count 3.57 L 3.31 L 4.30-5.52 10^6/uL Hemoglobin 10.4 L 9.5 L 13.3-17.7 g/dL Hematocrit 34 L 31 L 40-54 % Mean Corpuscular Volume 94 94 80-99 fL Mean Corpuscular Hemoglobin 29 29 25-34 pg Mean Corpuscular Hemoglobin Concent 31 L 31 L 32-36 g/dL Red Cell Distribution Width 13.0 13.2 10.0-14.5 % Platelet Count 151 148 130-400 10^3/uL Mean Platelet Volume 10.7 10.4 9.0-12.2 fL Immature Granulocyte % (Auto) 0 0 % Neutrophils (%) (Auto) 57 51 42-75 % Lymphocytes (%) (Auto) 33 37 12-44 % Monocytes (%) (Auto) 9 10 0-12 % Eosinophils (%) (Auto) 1 1 0-10 % Basophils (%) (Auto) 0 0 0-10 % Neutrophils # (Auto) 2.9 2.3 1.8-7.8 10^3/uL Lymphocytes # (Auto) 1.7 1.7 1.0-4.0 10^3/uL Monocytes # (Auto) 0.4 0.5 0.0-1.0 10^3/uL Eosinophils # (Auto) 0.1 0.1 0.0-0.3 10^3/uL Basophils # (Auto) 0.0 0.0 0.0-0.1 10^3/uL Immature Granulocyte # (Auto) 0.0 0.0 0.0-0.1 10^3/uL Percent Immature Platelet Fraction 3.6 0.0-7.6 % Prothrombin Time 12.3 12.2-14.7 SEC INR Comment 0.9 0.8-1.4 Activated Partial Thromboplast Time 24 24-35 SEC D-Dimer 0.87 H 0.00-0.49 UG/ML Sodium Level 141 140 135-145 MMOL/L Potassium Level 4.2 3.9 3.6-5.0 MMOL/L Chloride Level 102 101 98-107 MMOL/L Carbon Dioxide Level 31 32 21-32 MMOL/L Anion Gap 8 7 5-14 MMOL/L Blood Urea Nitrogen 9 13 7-18 MG/DL Creatinine 0.92 0.93 0.60-1.30 MG/DL Estimat Glomerular Filtration Rate 91 90 BUN/Creatinine Ratio 10 14 Glucose Level 87 97 70-105 MG/DL Calcium Level 9.2 9.0 8.5-10.1 MG/DL Corrected Calcium 9.4 8.5-10.1 MG/DL Magnesium Level 1.7 1.6-2.4 MG/DL Total Bilirubin 0.3 0.1-1.0 MG/DL Aspartate Amino Transf (AST/SGOT) 18 5-34 U/L Alanine Aminotransferase (ALT/SGPT) 21 0-55 U/L Alkaline Phosphatase 91 40-136 U/L Myoglobin 46.4 10.0-92.0 NG/ML Troponin I < 0.028 < 0.028 <0.028 NG/ML C-Reactive Protein High Sensitivity 0.45 0.00-0.50 MG/DL B-Type Natriuretic Peptide 26.5 <100.0 PG/ML Total Protein 6.8 6.4-8.2 GM/DL Albumin 3.8 3.2-4.5 GM/DL Smear Scan YES Triglycerides Level 93 <150 MG/DL Cholesterol Level 166 < 200 MG/DL LDL Cholesterol Direct 97 1-129 MG/DL VLDL Cholesterol 19 5-40 MG/DL HDL Cholesterol 51 40-60 MG/DL Physical Exam Physical Exam Vital Signs Vital Signs - First Documented 11/10/22 11/10/22 16:10 16:56 Temp 36.7 Pulse 75 Resp 11 B/P (MAP) 127/85 (99) Pulse Ox 100 O2 Delivery Nasal Cannula O2 Flow Rate 5.00 Capillary Refill : Less Than 3 Seconds Height, Weight, BMI Height: 5'8.00" Weight: 174lbs. 0.0oz. [id number]; 27.75 BMI Method:Stated General Appearance: WD/WN, Mild Distress Eyes: Bilateral Eye Normal Inspection, Bilateral Eye PERRL, Bilateral Eye EOMI HEENT: PERRL/EOMI, Normal ENT Inspection Neck: Normal Inspection Respiratory: Lungs Clear, No Accessory Muscle Use, No Respiratory Distress, Decreased Breath Sounds; No Wheezing Cardiovascular: Regular Rate, Rhythm, No Edema, No Murmur Gastrointestinal: Normal Bowel Sounds, Non Tender, Soft Back: Normal Inspection, No CVA Tenderness, No Vertebral Tenderness Extremity: Normal Inspection, Non Tender, No Calf Tenderness, No Pedal Edema, Other (Negative Mikayla) Neurologic/Psychiatric: Alert, Oriented x3, No Motor/Sensory Deficits, Normal Mood/Affect Skin: Normal Color, Warm/Dry Lymphatic: No Adenopathy A/P-Cardiology Admission Diagnosis Chest pain Shortness of breath Coronary artery disease Hypertension Assessment/Plan Chest pain, unstable angina, baseline EKG abnormality that has not changed compared to baseline Cardiac enzymes were negative Today is having different characteristic of chest pain, restricted to the retrosternal area not radiating. Back to his baseline. Continue to monitor Shortness of breath, oxygen dependent. History of COPD. Patient established with Dr. Foote. Has been following with him. No change from his baseline. Coronary artery disease, Cardiac catheterization was done in September 2014 showing total occlusion of the LAD at its midportion with occluded vein graft to the LAD did not fill with collaterals on this study, patent stent in the proximal LAD to the diagonal artery, mild disease in the circumflex and right coronary artery, prominent left ventricle with EF 45 percent. Repeat cardiac catheterization was done in March 2018 showing total occlusion of the mid LAD and the vein graft to the LAD, patent stent in the proximal LAD that was providing flow to the first diagonal branch, mild disease in the circumflex artery and right coronary artery, the apex of the left ventricular still akinetic with ejection fraction 45-50 percent. Coronary anatomy deemed inoperable. Continue with conservative management. Hx of TIA like symptoms with aphasia, lasting for approx 10 seconds, occurring last week. Did not go to ER for evaluation. Currently maintained on ASA and Plavix. History of CHF with left ventricular systolic dysfunction, 2D Echo done October 2021 showing mild concentric hypertrophy, EF 50-55%, grade 1 diastolic dysfunction, moderately dilated left atrium, PA 30-35mmHg. Peripheral edema, resolved, continue to monitor Peripheral arterial disease, history of stent to the left lower extremity, having pain in his lower extremity, seen and evaluated with heart and vascular care, had angiogram and balloon angioplasty with angioscore cutting balloon 5x40 mm to the left external iliac then stenting to the left external iliac artery with 6x50 Viabahn postdilated with a Brent balloon. Done by Dr. Jackson. Follows with [facility], Ailin Bartlett Hypertension, restart home medication monitor blood pressure Hyperlipidemia, continue to monitor lipids Previous history of tobaccoism, expressed that he has stopped smoking, encouraged to continue with smoking cessation Carotid stenosis, had a CT angiogram reported as severe stenosis in the right carotid artery 70 to 80%, no significant stenosis on the left. Underwent right carotid endarterectomy. Followed by heart and vascular care Anxiety. History of anemia, monitor H&H Cardiac status appears to be stable, no change from baseline, okay for discharge and follow-up as an outpatient Clinical Quality Measures AMI/AHF: ASA po Prior to arrival: Yes (TOTAL 3) JOSHUA CASTILLO MD Nov 11, 2022 09:55
[2022-11-11] MEDS ORDERED: ISOS30TA82 PO (10:06)
--- NOTE | 2022-11-11 13:07 | Short Stay Summary-Hospitalist ---
History of Present Illness HPI/Chief Complaint Ethan Dougherty is a 67 year old male with PMH HTN, HLD, CAD, COPD, carotid stenosis, tobacco abuse, who presented with chest pain. He has had several ER visits and admissions with a similar presentation. He follows with Dr. Carrion, cardiology. His chest pain resolved with nitroglycerin. He has known inoperable CAD. He is on several antianginal medications. He had no other complaints. Source: patient Exam Limitations: no limitations Date Seen 11/11/22 Time Seen by a Provider: 09:55 Attending Physician Jose Manjarrez MD PCP Admitting Physician: Taya Luque MD Attending Physician: Lexi Beck MD Referring Physician Date of Admission Nov 10, 2022 at 20:35 Home Medications & Allergies Home Medications Reviewed patient Home Medication Reconciliation performed by pharmacy medication reconciliations fire management technician and/or nursing. Patients Allergies have been reviewed. Allergies Allergies Coded Allergies budesonide (Verified Allergy, Severe, angioedema, 12/06/18) formoterol (Verified Allergy, Severe, angioedema, pt has rec Albuterol in the past, 01/23/22) tetanus toxoid, adsorbed (Verified Allergy, Mild, hives, 12/06/18) DOROTA Inhibitors (Verified Allergy, Unknown, Angioedema, 12/06/18) Past Bqdcrei-Kemgqq-Olntti Hx Patient Social History Marrital Status: Employed/Student: retired Tobacco Use?: No Smoking Status: Former Smoker Use of E-Cig and/or Vaping dev: No Substance use?: No Alcohol Use?: No Pt feels they are or have been: No Immunizations Up To Date Date of Influenza Vaccine: Apr 26, 2020 First/Initial COVID19 Vaccinat: unknown Second COVID19 Vaccination Guillermo: unknown Tetanus Booster (TDap): Unknown Hepatitis A: No Hepatitis B: No PED Vaccines UTD: No Date of Pneumonia Vaccine: Apr 26, 2020 Seasonal Allergies Seasonal Allergies: No Current Status Advance Directives: Yes Advance Directive Location: Home Communicates: Verbally Primary Language: Gambian Preferred Spoken Language: Gambian Is interpretation needed?: No Implanted or Applied Medical D: None Past Medical History Surgeries: Abdominal, Cardiac, CABG, Coronary Stent, Eye Surgery, Tonsillectomy, Vascular Surgery Pneumonia, Chronic Bronchitis, COPD Currently Using CPAP: No Currently Using BIPAP: No Coronary Artery Disease, Deep Vein Thrombosis, Heart Attack, High Cholesterol, Hypertension, Peripheral Vascular Stroke Sexually Transmitted Disease: No HIV/AIDS: No Abdominal Hernia, Gastroesophageal Reflux, Diverticulosis, Polyps, Hiatal Hernia, Ulcer Degenerate Disk Disease, Arthritis, Chronic Back Pain, Fractures Loss of Vision: Denies Hearing Impairment: Denies Sleep Difficulties, Anxiety, Schizophrenia, Depression Blood Disorders: Yes (ANEMIA 04/2022--GI BLOOD LOSS--TRANSFUSED 2 UNITS) Adverse Reaction/Blood Tranf: No Past Medical History 1. CAD with history of CABG 2. Tobaccoism 3. Severe COPD 4. HTN 5. Anxiey 6. Chronic Unstable Angina 7. Depression Past Surgical History 1. CABG 2. Multiple Cardiac Cath. 3. Tonsillectomy 4. Hernia Repair Family Medical History Diabetes mellitus 19 MOTHER FH: heart disease 19 FATHER Heart Disease, Diabetes SOCIAL HX: -HX OF ALCOHOL ABUSE--CLAIMS HE QUIT YEARS AGO -DENIES DRUG USE -SMOKED 2-3 PPD--QUIT 2017 PSH: -CABG--1 VESSEL BYPASS TO LAD -CARDIAC CATHS AND STENTS X 4, WITH ANGIOPLASTIES--LAST CARDIAC CATH 03/2018--PATENT STENT TO PROXIMAL LAD TO FIRST DIAGONAL, COMPLETE OCCLUSION OF MID LAD AND TO VEIN GRAFT TO LAD; EF 45-50%--NO INTERVENTION DONE AT THAT TIME AND FINDINGS WERE THE SAME THOSE FOUND ON CARDIAC CATH IN 2014 -ANGIOPLASTY AND STENT X 1 TO LEFT LEG/EXTERNAL ILIAC ARTERY 02/2017 -RIGHT CAROTID ENDARTERECTOMY 05/28/[address] BLANKENSHIP AT [facility] -LEFT INGUINAL HERNIA REPAIR -TONSILLECTOMY -EGD/COLONOSCOPY/POLYPECTOMY 05/17/[address] IQBAL: PREOPERATIVE DIAGNOSIS: Symptomatic anemia. POSTOPERATIVE DIAGNOSES: Reflux esophagitis, [place]cher between grade B and C, small hiatal hernia, 2 cm in size, moderate gastritis, normal duodenum, chronic stage II external, internal hemorrhoids, moderate sigmoid diverticulosis, small polyp of the cecum approximately 3 mm in size. PROCEDURE: EGD with biopsy, colonoscopy with polypectomy with hot biopsy forceps. ADDITIONAL PMH: -HX OF CARDIAC ARREST -CAROTID DISEASE--SEVERE ON RIGHT -RBBB ; LAFB CARDIAC CATH 03/18/[address] CARRION: -CONCLUSION: 1. Total occlusion of the mid LAD and the vein graft to the LAD 2. Patent stent in the proximal LAD that is providing good flow to the first diagonal branch 3. Mild disease in the circumflex and right coronary artery 4. Apical akinesia, good systolic function overall, ejection fraction 45-50 percent DISCUSSION AND RECOMMENDATION: Continue to maximize medical therapy Review of Systems Constitutional: no symptoms reported Respiratory: no symptoms reported Cardiovascular: chest pain Gastrointestinal: no symptoms reported Physical Exam Physical Exam Vital Signs Vital Signs - First Documented 11/10/22 11/10/22 16:10 16:56 Temp 36.7 Pulse 75 Resp 11 B/P (MAP) 127/85 (99) Pulse Ox 100 O2 Delivery Nasal Cannula O2 Flow Rate 5.00 Capillary Refill : Less Than 3 Seconds Height, Weight, BMI Height: 5'8.00" Weight: 174lbs. 0.0oz. 78.770540pu; 27.75 BMI Method:Stated General Appearance: No Apparent Distress, WD/WN Eyes: Bilateral Eye Normal Inspection, Bilateral Eye PERRL, Bilateral Eye EOMI HEENT: PERRL/EOMI, Pharynx Normal Neck: Normal Inspection, Supple Respiratory: Lungs Clear, No Accessory Muscle Use, No Respiratory Distress; No Wheezing Cardiovascular: Regular Rate, Rhythm, No Edema, No Murmur Gastrointestinal: Normal Bowel Sounds, Non Tender, Soft Extremity: Normal Inspection, Non Tender, No Pedal Edema Neurologic/Psychiatric: Alert, Oriented x3, No Motor/Sensory Deficits, Normal Mood/Affect Skin: Normal Color, Warm/Dry Results Results/Procedures Labs Laboratory Tests 11/10/22 16:19 11/11/22 04:35 Patient resulted labs reviewed. Imaging: Reviewed Imaging Report Short Stay Diagnosis Discharge Diagnosis-Short Stay Admission Diagnosis Chest pain Final Discharge Diagnosis Coronary artery disease with angina Conclusion Plan CAD Increase Imdur Continue other medications Follow up with Dr. Carrion, cardiology, as scheduled Follow up with Dr. Manjarrez, PCP, in about a week Diagnosis/Problems Diagnosis/Problems (1) CAD (coronary artery disease) Status: Acute Qualifiers: Qualified Codes: I25.118 - Atherosclerotic heart disease of [place] coronary artery with other forms of angina pectoris Clinical Quality Measures AMI/AHF: ASA po Prior to arrival: Yes (TOTAL 3) Copy Copies To 1: JOSE MANJARREZ MD Copies To 2: JOSHUA CARRION MD, JARIN M MD Nov 11, 2022 13:07
[2022-11-12] MEDS ORDERED: ASPIRIN 81 MG CHEW (CHILDREN'S ASA) PO SCH (09:00)
[2022-11-12] MEDS ORDERED: buPROPion 75 MG (WELLBUTRIN) TAB PO SCH (09:00)
[2022-11-12] MEDS ORDERED: PANTOPRAZOLE 40 MG (PROTONIX) TAB PO SCH (09:00)
[2022-11-12] MEDS ORDERED: ISOSORBIDE MONONITRATE 30 MG (IMDUR) TAB PO SCH (09:00)
[2022-11-12] MEDS ORDERED: SERTRALINE 100 MG (ZOLOFT) TAB PO SCH (09:00)
[2022-11-12] MEDS ORDERED: amLODIPine 5 MG (NORVASC) TAB PO SCH (09:00)
[2022-11-12] MEDS ORDERED: CLOPIDOGREL 75 MG (PLAVIX) TABLET PO SCH (09:00)
[2022-11-12] MEDS ORDERED: RANOLAZINE ER 500 MG TAB (RANEXA) PO SCH (09:00)
== END 2022-11-11 10:06 | disposition home or self-care (01) ==
LOC: EDUNIT# 16:10 → ER 16:11 → CSD 20:35 → UNDOADMOB 20:35 → CSD 20:54 → UNDODISOB 11-11 10:06
PROVIDERS: ADMIT Family Medicine; ATTEND Internal Medicine
DX: I25.110 Atherosclerotic heart disease of native coronary artery with unstable angina pectoris (principal); I73.9 Peripheral vascular disease, unspecified; J44.9 Chronic obstructive pulmonary disease, unspecified; I11.0 Hypertensive heart disease with heart failure; I50.20 Unspecified systolic (congestive) heart failure; I65.23 Occlusion and stenosis of bilateral carotid arteries; R60.0 Localized edema; D64.9 Anemia, unspecified; F41.9 Anxiety disorder, unspecified; Z79.899 Other long term (current) drug therapy; Z87.891 Personal history of nicotine dependence; Z86.73 Personal history of transient ischemic attack (TIA), and cerebral infarction without residual deficits; Z95.5 Presence of coronary angioplasty implant and graft; Z99.81 Dependence on supplemental oxygen; Z98.62 Peripheral vascular angioplasty status
CPT/HCPCS: 36415; 71045; 71275; 80048; 80053; 80061; 83735; 83874; 83880; 84484; 85025; 85379; 85610; 85730; 86141; 93005; 93041; 93306; 94640; 94664

== ENCOUNTER 2022-12-23 23:51 | Emergency (ER) | payer MEDICARE, MEDICAID ==
[~2022-12-23 23:51] MED LIST changes: +TIOT4MIS2 IH
[2022-12-24 00:10] LABS: BASOPHILS % (AUTO) 0 % (0-10); EOSINOPHILS # (AUTO) 0.1 10^3/uL (0.0-0.3); EOSINOPHILS % (AUTO) 2 % (0-10); HEMATOCRIT 35 % (40-54); HEMOGLOBIN 10.7 g/dL (13.3-17.7); LYMPHOCYTES # (AUTO) 1.9 10^3/uL (1.0-4.0); LYMPHOCYTES % (AUTO) 32 % (12-44); MEAN CORPUSCULAR HEMOGLOBIN 29 pg (25-34); MEAN CORPUSCULAR HGB CONC 31 g/dL (32-36); MEAN CORPUSCULAR VOLUME 95 fL (80-99); MEAN PLATELET VOLUME 9.6 fL (9.0-12.2); MONOCYTES # (AUTO) 0.6 10^3/uL (0.0-1.0); MONOCYTES % (AUTO) 10 % (0-12); NEUTROPHILS # (AUTO) 3.3 10^3/uL (1.8-7.8); NEUTROPHILS % (AUTO) 55 % (42-75); PLATELET COUNT 167 10^3/uL (130-400); WHITE BLOOD COUNT 5.9 10^3/uL (4.3-11.0)
[2022-12-24 00:15] LABS: ALBUMIN 3.9 GM/DL (3.2-4.5); CHLORIDE 99 MMOL/L (98-107); POTASSIUM 4.1 MMOL/L (3.6-5.0); SODIUM 140 MMOL/L (135-145)
[2022-12-24 00:16] LABS: CALCIUM 9.3 MG/DL (8.5-10.1)
[2022-12-24 00:17] LABS: GLUCOSE 98 MG/DL (70-105); TOTAL PROTEIN 7.1 GM/DL (6.4-8.2)
[2022-12-24 00:18] LABS: CARBON DIOXIDE 32 MMOL/L (21-32); INR 0.9 (0.8-1.4); PROTHROMBIN TIME PATIENT 12.4 SEC (12.2-14.7)
[2022-12-24 00:19] LABS: BILIRUBIN,TOTAL 0.3 MG/DL (0.1-1.0)
[2022-12-24 00:20] LABS: ALKALINE PHOSPHATASE 107 U/L (40-136)
[2022-12-24 00:21] LABS: CREATININE SERUM 0.88 MG/DL (0.60-1.30); GFR ESTIMATED 94
[2022-12-24 00:22] LABS: BUN/CREATININE RATIO 13
[2022-12-24 00:24] LABS: ALANINE AMINOTRANSFERASE 25 U/L (0-55); MAGNESIUM 1.8 MG/DL (1.6-2.4)
--- NOTE | 2022-12-24 00:38 | ED Chest Pain ---
General Chief Complaint: Chest Pain Stated Complaint: CHEST PAIN History of Present Illness Date Seen by Provider: Dec 24, 2022 Time Seen by Provider: 00:10 Initial Comments Patient is a 67-year-old male with a history of COPD and coronary artery disease chronically on 5 L of oxygen per nasal cannula who presents to the emergency department with left-sided "tight" chest pain that radiates into his left shoulder. Patient states that he believes it started a little bit before 10:00 this evening. He states he took 1 sublingual nitroglycerin tablet and then about 15 minutes later took 3 baby aspirin. He states that he sat at home and waited to see if the medications would work. Finally called the ambulance a little bit before midnight. He states that he felt short of breath. He has not used a breathing treatment this evening. No nausea, sweating. He was at rest when symptoms started. He has had stents, a one-vessel bypass and more stents. 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 He cannot recall the last time he had a catheterization. He did have a visit for chest pain in November of this year. He denies fevers or chills, change in cough quality or increased sputum production. No swelling in his legs. He takes his medications daily. 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: Yes NTG SL PAPER TESTING SUPERVISOR: Yes Associated Symptoms: shortness of breath Allergies and Home Medications Allergies Coded Allergies: budesonide (Verified Allergy, Severe, angioedema, 12/06/18) formoterol (Verified Allergy, Severe, angioedema, pt has rec Albuterol in the past, 01/23/22) tetanus toxoid, adsorbed (Verified Allergy, Mild, hives, 12/06/18) DOROTA Inhibitors (Verified Allergy, Unknown, Angioedema, 12/06/18) Patient Home Medication List Home Medication List Reviewed: Yes Albuterol Sulfate (Ventolin Hfa) 1 Puff Puff, 2 PUFF IH PRN PRN for SHORTNESS OF BREATH, (Reported) Entered as Reported by: GAVIN RUBIO on 03/18/18 0737 Amlodipine Besylate (Amlodipine Besylate) 5 Mg Tablet, 5 MG PO DAILY, (Reported) Entered as Reported by: CELSO SZYMANSKI on 02/15/18 0350 Aripiprazole (Aripiprazole) 30 Mg Tablet, 30 MG PO DAILY, (Reported) Entered as Reported by: JEFF LEWIS on 06/29/20 1249 Aspirin (Aspirin) 81 Mg Tab.chew, 81 MG PO DAILY, (Reported) Entered as Reported by: JEFF LEWIS on 05/01/20 1344 Atorvastatin Calcium (Atorvastatin Calcium) 80 Mg Tablet, 80 MG PO DAILY, (Reported) Entered as Reported by: GAVIN RUBIO on 03/18/18 0737 Bupropion HCl (Bupropion HCl) 75 Mg Tablet, 75 MG PO DAILY, (Reported) Entered as Reported by: CELSO SZYMANSKI on 02/15/18 035 Carvedilol (Carvedilol) 6.25 Mg Tablet, 6.25 MG PO DAILY Prescribed by: MEREDITH RAMOS on 05/05/22 1333 Clopidogrel Bisulfate (Clopidogrel) 75 Mg Tablet, 75 MG PO DAILY, (Reported) Entered as Reported by: JEFF LEWIS on 11/08/19 1527 Fluticasone/Salmeterol (Advair 250-50 Diskus) 250 Mcg-50 Mcg/Dose Blst.w.dev, 1 EACH IH, (Reported) Entered as Reported by: ERNESTINE PIERRE on 11/10/22 2115 Isosorbide Mononitrate (Isosorbide Mononitrate ER) 30 Mg Tab.er.24h, 60 MG PO DAILY Prescribed by: ROHIT SAL on 11/11/22 1006 Mirtazapine (Mirtazapine) 30 Mg Tablet, 30 MG PO HS, (Reported) Entered as Reported by: CELSO SZYMANSKI on 02/15/18 035 Montelukast Sodium (Montelukast Sodium) 10 Mg Tablet, 10 MG PO DAILY, (Reported) Entered as Reported by: JEFF LEWIS on 06/29/20 1249 Nitroglycerin (Nitroglycerin) 0.4 Mg Tab.subl, 0.4 MG SL UD PRN for CHEST PAIN (ANGINA), (Reported) Entered as Reported by: HERON BAEZ on 01/28/22 1309 Dieterich 3 Polyunsat Fatty Acids (Fish Oil 1,000 mg Capsule) 340 Mg-1,000 Mg Cap, 1,000 MG PO DAILY, (Reported) Entered as Reported by: HERON BAEZ on 01/28/22 1308 Omeprazole (Omeprazole) 40 Mg Capsule.dr, 40 MG PO DAILY Prescribed by: TAMIKO IQBAL on 05/17/22 1159 Ranolazine (Ranexa) 1,000 Mg Tab.er.12h, 1,000 MG PO DAILY, (Reported) Entered as Reported by: HERON BAEZ on 01/28/22 1310 Sertraline HCl (Sertraline HCl) 100 Mg Tablet, 200 MG PO DAILY, (Reported) Entered as Reported by: JEFF LEWIS on 11/08/19 1527 Tiotropium [place] (Spiriva Respimat 2.5MCG/ACTUATION) 2.5 Mcg/Actuation Mist.inhal, 2 PUFF IH DAILY, (Reported) Entered as Reported by: ERNESTINE PIERRE on 11/10/222114 Review of Systems Review of Systems Constitutional: see HPI EENTM: No Symptoms Reported Respiratory: Shortness of Air Cardiovascular: Chest Pain Gastrointestinal: No Symptoms Reported Genitourinary: No Symptoms Reported Musculoskeletal: joint pain (left shoulder) Skin: no symptoms reported Psychiatric/Neurological: No Symptoms Reported All Other Systems Reviewed Negative Unless Noted: Yes Past Glnzojd-Ojgayc-Egqfsq Hx Immunizations Up To Date Tetanus Booster (TDap): Unknown PED Vaccines UTD: No First/Initial COVID19 Vaccinat: unknown Second COVID19 Vaccination Guillermo: unknown Third COVID19 Vaccination Date: unknown Seasonal Allergies Seasonal Allergies: No Past Medical History Surgery/Hospitalization HX: MULTIPLE CARDIAC CATHS/MULTIPLE CORONARY STENTS/ILIAC STENT/CABG/INGUINAL HERNIA/TONSILLECTOMY/CAROTID ENDARTERECTOMY Surgeries: Yes (LEFT INGUINAL HERNIA;CABG WITH STENTS IN HEART AND LEG, R carotid endartect) Abdominal, Cardiac, CABG, Coronary Stent, Eye Surgery, Tonsillectomy, Vascular Surgery Respiratory: Yes (WEARS O2 AT 5L/NC CONTINUOUSLY. RUL PULMONARY NODULE) Pneumonia, Chronic Bronchitis, COPD Currently Using CPAP: No Currently Using BIPAP: No Cardiac: Yes (STENT X1/ANGIO L EXT ILIAC ART;CABG/STENT X4;CAROTID DZ;CHF;CARDIAC ARREST) Coronary Artery Disease, Deep Vein Thrombosis, Heart Attack, High Cholesterol, Hypertension, Peripheral Vascular Neurological: Yes Stroke Reproductive Disorders: No Sexually Transmitted Disease: No HIV/AIDS: No Genitourinary: No Gastrointestinal: Yes (ANEMIA/GI BLOOD LOSS 04/2022--GASTRITIS, ) Abdominal Hernia, Gastroesophageal Reflux, Diverticulosis, Polyps, Hiatal Her anita, Ulcer Musculoskeletal: Yes (MULTIPLE VERTEBRAL COMPRESSION FRACTURES) Degenerate Disk Disease, Arthritis, Chronic Back Pain, Fractures Endocrine: No HEENT: No Loss of Vision: Denies Hearing Impairment: Denies Cancer: No Psychosocial: Yes Sleep Difficulties, Anxiety, Schizophrenia, Depression Integumentary: No Blood Disorders: Yes (ANEMIA 04/2022--GI BLOOD LOSS--TRANSFUSED 2 UNITS) Adverse Reaction/Blood Tranf: No Family Medical History Diabetes mellitus 19 MOTHER FH: heart disease 19 FATHER Heart Disease, Diabetes SOCIAL HX: -HX OF ALCOHOL ABUSE--CLAIMS HE QUIT YEARS AGO -DENIES DRUG USE -SMOKED 2-3 PPD--QUIT 2017 PSH: -CABG--1 VESSEL BYPASS TO LAD -CARDIAC CATHS AND STENTS X 4, WITH ANGIOPLASTIES--LAST CARDIAC CATH 03/2018--PATENT STENT TO PROXIMAL LAD TO FIRST DIAGONAL, COMPLETE OCCLUSION OF MID LAD AND TO VEIN GRAFT TO LAD; EF 45-50%--NO INTERVENTION DONE AT THAT TIME AND FINDINGS WERE THE SAME THOSE FOUND ON CARDIAC CATH IN 2014 -ANGIOPLASTY AND STENT X 1 TO LEFT LEG/EXTERNAL ILIAC ARTERY 02/2017 -RIGHT CAROTID ENDARTERECTOMY 05/28/[address] BLANKENSHIP AT [facility] -LEFT INGUINAL HERNIA REPAIR -TONSILLECTOMY -EGD/COLONOSCOPY/POLYPECTOMY 05/17/[address] IQBAL: PREOPERATIVE DIAGNOSIS: Symptomatic anemia. POSTOPERATIVE DIAGNOSES: Reflux esophagitis, Langdon between grade B and C, small hiatal hernia, 2 cm in size, moderate gastritis, normal duodenum, chronic stage II external, internal hemorrhoids, moderate sigmoid diverticulosis, small polyp of the cecum approximately 3 mm in size. PROCEDURE: EGD with biopsy, colonoscopy with polypectomy with hot biopsy forceps. ADDITIONAL PMH: -HX OF CARDIAC ARREST -CAROTID DISEASE--SEVERE ON RIGHT -RBBB ; LAFB CARDIAC CATH 03/18/[address] CARRION: -CONCLUSION: 1. Total occlusion of the mid LAD and the vein graft to the LAD 2. Patent stent in the proximal LAD that is providing good flow to the first diagonal branch 3. Mild disease in the circumflex and right coronary artery 4. Apical akinesia, good systolic function overall, ejection fraction 45-50 percent DISCUSSION AND RECOMMENDATION: Continue to maximize medical therapy Physical Exam Vital Signs Vital Signs - First Documented Capillary Refill : Height, Weight, BMI Height: 5'8.00" Weight: 174lbs. 0.0oz. [id number]; 27.75 BMI Method:Stated General Appearance: No Apparent Distress, WD/WN, Chronically ill HEENT: PERRL/EOMI Neck: Normal Inspection Respiratory: No Accessory Muscle Use, No Respiratory Distress, Wheezing (diffuse expiratory wheezes bilaterally) Cardiovascular: Regular Rate, Rhythm Gastrointestinal: Non Tender, Soft Extremity: Normal Inspection, No Calf Tenderness, No Pedal Edema Neurologic/Psychiatric: Alert, Oriented x3, No Motor/Sensory Deficits, Normal Mood/Affect Skin: Normal Color, Warm/Dry Progress/Results/Core Measures Results/Orders Lab Results Laboratory Tests Test 12/24/22 00:00 12/24/22 02:04 Range/Units White Blood Count 5.9 4.3-11.0 10^3/uL Red Blood Count 3.68 L 4.30-5.52 10^6/uL Hemoglobin 10.7 L 13.3-17.7 g/dL Hematocrit 35 L 40-54 % Mean Corpuscular Volume 95 80-99 fL Mean Corpuscular Hemoglobin 29 25-34 pg Mean Corpuscular Hemoglobin Concent 31 L 32-36 g/dL Red Cell Distribution Width 13.0 10.0-14.5 % Platelet Count 167 130-400 10^3/uL Mean Platelet Volume 9.6 9.0-12.2 fL Immature Granulocyte % (Auto) 0 % Neutrophils (%) (Auto) 55 42-75 % Lymphocytes (%) (Auto) 32 12-44 % Monocytes (%) (Auto) 10 0-12 % Eosinophils (%) (Auto) 2 0-10 % Basophils (%) (Auto) 0 0-10 % Neutrophils # (Auto) 3.3 1.8-7.8 10^3/uL Lymphocytes # (Auto) 1.9 1.0-4.0 10^3/uL Monocytes # (Auto) 0.6 0.0-1.0 10^3/uL Eosinophils # (Auto) 0.1 0.0-0.3 10^3/uL Basophils # (Auto) 0.0 0.0-0.1 10^3/uL Immature Granulocyte # (Auto) 0.0 0.0-0.1 10^3/uL Prothrombin Time 12.4 12.2-14.7 SEC INR Comment 0.9 0.8-1.4 Activated Partial Thromboplast Time 36 H 24-35 SEC Sodium Level 140 135-145 MMOL/L Potassium Level 4.1 3.6-5.0 MMOL/L Chloride Level 99 98-107 MMOL/L Carbon Dioxide Level 32 21-32 MMOL/L Anion Gap 9 5-14 MMOL/L Blood Urea Nitrogen 11 7-18 MG/DL Creatinine 0.88 0.60-1.30 MG/DL Estimat Glomerular Filtration Rate 94 BUN/Creatinine Ratio 13 Glucose Level 98 70-105 MG/DL Calcium Level 9.3 8.5-10.1 MG/DL Corrected Calcium 9.4 8.5-10.1 MG/DL Magnesium Level 1.8 1.6-2.4 MG/DL Total Bilirubin 0.3 0.1-1.0 MG/DL Aspartate Amino Transf (AST/SGOT) 23 5-34 U/L Alanine Aminotransferase (ALT/SGPT) 25 0-55 U/L Alkaline Phosphatase 107 40-136 U/L Troponin I < 0.028 < 0.028 <0.028 NG/ML Total Protein 7.1 6.4-8.2 GM/DL Albumin 3.9 3.2-4.5 GM/DL My Orders Orders - ARUN BRO MD Cbc With Automated Diff (12/24/22 00:03) Magnesium (12/24/22 00:03) Chest 1 View, Ap/Pa Only (12/24/22 00:03) Ekg Tracing (12/24/22 00:03) Comprehensive Metabolic Panel (12/24/22 00:03) Protime With Inr (12/24/22 00:03) Partial Thromboplastin Time (12/24/22 00:03) O2 (12/24/22 00:03) Monitor-Rhythm Ecg Trace Only (12/24/22 00:03) Lipid Panel (12/25/22 06:00) Ed Iv/Invasive Line Start (12/24/22 00:03) Troponin I Gillespie (12/24/22 00:03) Albuterol/Ipra Inhalation Soln (Duoneb I (12/24/22 00:52) Morphine Injection (Morphine Injection (12/24/22 01:30) Troponin I Negrita (12/24/22 02:00) Morphine Injection (Morphine Injection (12/24/22 02:53) Medications Given in ED Current Medications Medications Dose Ordered Sig/Shira Route Start Time Stop Time Status Last Admin Dose Admin Albuterol/ Ipratropium 3 ml STK-MED ONCE .ROUTE 12/24/22 00:52 12/24/22 00:56 DC 12/24/22 01:05 3 ML Morphine Sulfate 4 mg ONCE ONCE IVP 12/24/22 01:30 12/24/22 01:31 DC 12/24/22 01:27 4 MG Vital Signs/I&O 12/23/22 12/23/22 12/23/22 12/24/22 23:53 23:53 23:53 00:56 Temp 36.1 Pulse 88 Resp 18 B/P (MAP) 162/72 (102) Pulse Ox 100 100 O2 Delivery Nasal Cannula Nasal Cannula Nasal Cannula Nasal Cannula O2 Flow Rate 5.00 5.00 5.00 5.00 Progress Progress Note : Time: 02:50 Progress Note Patient seen and evaluated by me. Evaluation today includes "chest pain protocol", EKG, CBC, CH12, troponin x2, coags, CXR, Magnesium level. Pertinent physical exam findings, elderly male in NAD. Heart is regular, lungs with expiratory wheezes throughout - no increased work of breathing or distress. Abd soft, no LE edema. VSS. Patient has nitropaste to CW. 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 DDx based on H&P - NSTEMI/ACS, musculoskeletal pain, GERD, COPD exacerbation Labs independently reviewed and interpreted by me, as well as CXR. CBC remarkable for mildly decreased H&H - 10.7/35 with normal WBC and platelets. CH12 is normal with Troponin x2 undetecable (second troponin obtained 4h from onset of discomfort.) Patient's coags are WNL and CXR shows no evidence of CHF or infiltrate/effusion. PAtient is treated in the ED with Morphine 4mg x2. He had pain decreased from an "8" to a "4" and then with second dose pain relieved. No concerning findings for ACS at this time. He was also given a breathing treatment in the ER with improvement in wheezing. He is comfortable with discharge to home, and I did advise him to follow up with his auto repair shop manager, Dr Carrion. Eric is comfortable with the plan of care, all questions are sought and answered, patient is improved at discharge. Initial ECG Impression Date: Dec 24, 2022 Initial ECG Impression Time: 00:00 Initial ECG Rate: 84 Initial ECG Rhythm: Normal Sinus Initial ECG Intervals DE 183 QRS 91 Qtc 377 Initial ECG Comparisson: Unchanged Comment Q waves inferiorly and anteriorly (morphology identical to previous) Diagnostic Imaging Diagonstic Imaging: Xray Plain Films/CT/US/NM/MRI: chest Comments CXR - indepedent interpretation by me - no focal infiltrates, no effusions Departure Impression Primary Impression: Chest pain Qualified Codes: R07.9 - Chest pain, unspecified Additional Impressions: History of coronary artery disease COPD (chronic obstructive pulmonary disease) Qualified Codes: J44.9 - Chronic obstructive pulmonary disease, unspecified Disposition: 01 HOME, SELF-CARE Condition: Improved Departure-Patient Inst. Decision time for Depature: 02:51 Referrals: PJ BOUCHER MD (PCP/Family) Primary Care Physician JOSHUA CARRION MD Patient Instructions: Chest Pain, Adult ED Add. Discharge Instructions: Continue your daily medications as prescribed. Continue to take your nitroglycerin as instructed by Dr Carrion and keep your scheduled follow up appointments. Return to the Emergency Department for any new, concerning or emergent complaints. Copy Copies To 1: JOSHUA CARRION MD, KATHRYN M MD Dec 24, 2022 00:38
[2022-12-24] MEDS ORDERED: RT-ALBUTEROL/IPRATROPIUM 3 ML (DUONEB) VIAL ONE (00:52)
[2022-12-24] MEDS ORDERED: morphine INJ 4 MG/ML 1 ML (VIAL/SYRINGE) IVP ONE (01:30)
[2022-12-24] MEDS ORDERED: morphine INJ 10 MG/ML 1ML (SYR OR VIAL) IVP STA (02:53)
[2022-12-24 03:29] VITALS: BP 139/78
--- NOTE | 2022-12-24 07:14 | Diagnostic Imaging Report ---
History: Chest pain TECHNIQUE: Frontal view of the chest COMPARISON: 11/10/2022 FINDINGS: There is mild elevation of the right hemidiaphragm. No consolidation is seen. No large effusion or pneumothorax is seen. The cardiac silhouette is normal in size. Sternotomy wires and post-CABG changes are seen. IMPRESSION: 1. Stable chronic findings in the chest with no acute pulmonary abnormality seen. Dictated by: Dictated on workstation # [id number]
== END 2022-12-24 03:45 | disposition home or self-care (01) ==
LOC: EDUNIT# 23:51 → ER 23:52
DX: I25.10 Atherosclerotic heart disease of native coronary artery without angina pectoris (principal); J44.9 Chronic obstructive pulmonary disease, unspecified; Z95.5 Presence of coronary angioplasty implant and graft; Z95.1 Presence of aortocoronary bypass graft; Z99.81 Dependence on supplemental oxygen; Z79.899 Other long term (current) drug therapy
CPT/HCPCS: 36415; 71045; 80053; 83735; 84484; 85025; 85610; 85730; 93005; 93041

== ENCOUNTER 2023-01-21 19:28 | Emergency (ER) | payer MEDICARE, MEDICAID ==
[~2023-01-21] VITALS: Ht 165.1 cm; Wt 84.0 kg
--- NOTE | 2023-01-21 19:43 | ED Chest Pain ---
General Chief Complaint: Chest Pain Stated Complaint: CHEST PAIN Source: patient Exam Limitations: no limitations History of Present Illness Date Seen by Provider: Jan 21, 2023 Time Seen by Provider: 19:34 Initial Comments Patient is a 67-year-old male who presents to the emergency department with a chief complaint of left-sided chest pain. He states onset of pain was approximately 2 hours prior to arrival. He did not take anything for the discomfort. It does not radiate. He denies nausea, shortness of breath, sweating. He was not exerting himself at onset. He tells me he does have a history of cardiac stents but he is not sure how many. He took 2 nitroglycerin prior to arrival of EMS and then EMS gave him a third. His pain went from a 10 to a 9. He was given 324 mg of baby aspirin prior to arrival. He also endorses sore throat that he attributes to having to take large pills. He denies fevers or chills, runny nose or congestion. No increase in cough or change in sputum production. He states he is supposed to be on breathing treatments but has not had any in at least a couple of days. No GI issues. No significant swelling in his lower extremities. Nothing is making his pain any better or any worse at this time. Timing/Duration: 1-3 hours Severity/Quality: severe, sharp Location: other (Left chest) Radiation: no radiation Activities at Onset: none Prior CP/Workup: cardiac cath ASA po EVENT SET UP SPECIALIST: Yes NTG SL EVENT SET UP SPECIALIST: Yes Associated Symptoms: denies symptoms Allergies and Home Medications Allergies Coded Allergies: budesonide (Verified Allergy, Severe, angioedema, 12/06/18) formoterol (Verified Allergy, Severe, angioedema, pt has rec Albuterol in the past, 01/23/22) tetanus toxoid, adsorbed (Verified Allergy, Mild, hives, 12/06/18) DOROTA Inhibitors (Verified Allergy, Unknown, Angioedema, 12/06/18) Patient Home Medication List Home Medication List Reviewed: Yes Albuterol Sulfate (Ventolin Hfa) 1 Puff Puff, 2 PUFF IH PRN PRN for SHORTNESS OF BREATH, (Reported) Entered as Reported by: GAVIN RUBIO on 03/18/18 0737 Amlodipine Besylate (Amlodipine Besylate) 5 Mg Tablet, 5 MG PO DAILY, (Reported) Entered as Reported by: CELSO SZYMANSKI on 02/15/18 0350 Aripiprazole (Aripiprazole) 30 Mg Tablet, 30 MG PO DAILY, (Reported) Entered as Reported by: JEFF LEWIS on 06/29/20 1249 Aspirin (Aspirin) 81 Mg Tab.chew, 81 MG PO DAILY, (Reported) Entered as Reported by: JEFF LEWIS on 05/01/20 1344 Atorvastatin Calcium (Atorvastatin Calcium) 80 Mg Tablet, 80 MG PO DAILY, (Reported) Entered as Reported by: GAVIN RUBIO on 03/18/18 0737 Bupropion HCl (Bupropion HCl) 75 Mg Tablet, 75 MG PO DAILY, (Reported) Entered as Reported by: CELSO SZYMANSKI on 02/15/18 035 Carvedilol (Carvedilol) 6.25 Mg Tablet, 6.25 MG PO DAILY Prescribed by: MEREDITH RAMOS on 05/05/22 1333 Clopidogrel Bisulfate (Clopidogrel) 75 Mg Tablet, 75 MG PO DAILY, (Reported) Entered as Reported by: JEFF LEWIS on 11/08/19 1527 Fluticasone/Salmeterol (Advair 250-50 Diskus) 250 Mcg-50 Mcg/Dose Blst.w.dev, 1 EACH IH, (Reported) Entered as Reported by: ERNESTINE PIERRE on 11/10/22 2115 Isosorbide Mononitrate (Isosorbide Mononitrate ER) 30 Mg Tab.er.24h, 60 MG PO DAILY Prescribed by: ROHIT SAL on 11/11/22 1006 Mirtazapine (Mirtazapine) 30 Mg Tablet, 30 MG PO HS, (Reported) Entered as Reported by: CELSO SZYMANSKI on 02/15/18 035 Montelukast Sodium (Montelukast Sodium) 10 Mg Tablet, 10 MG PO DAILY, (Reported) Entered as Reported by: JEFF LEWIS on 06/29/20 1249 Nitroglycerin (Nitroglycerin) 0.4 Mg Tab.subl, 0.4 MG SL UD PRN for CHEST PAIN (ANGINA), (Reported) Entered as Reported by: HERON BAEZ on 01/28/22 1309 [place] 3 Polyunsat Fatty Acids (Fish Oil 1,000 mg Capsule) 340 Mg-1,000 Mg Cap, 1,000 MG PO DAILY, (Reported) Entered as Reported by: HERON BAEZ on 01/28/22 1308 Omeprazole (Omeprazole) 40 Mg Capsule.dr, 40 MG PO DAILY Prescribed by: TAMIKO IQBAL on 05/17/22 1159 Ranolazine (Ranexa) 1,000 Mg Tab.er.12h, 1,000 MG PO DAILY, (Reported) Entered as Reported by: HERON BAEZ on 01/28/22 1310 Sertraline HCl (Sertraline HCl) 100 Mg Tablet, 200 MG PO DAILY, (Reported) Entered as Reported by: JEFF LEWIS on 11/08/19 1527 Tiotropium [place] (Spiriva Respimat 2.5MCG/ACTUATION) 2.5 Mcg/Actuation Mist.inhal, 2 PUFF IH DAILY, (Reported) Entered as Reported by: ERNESTINE PIERRE on 11/10/222114 Review of Systems Review of Systems Constitutional: see HPI EENTM: Throat Pain Respiratory: No Symptoms Reported Cardiovascular: Chest Pain Gastrointestinal: No Symptoms Reported Genitourinary: No Symptoms Reported Musculoskeletal: no symptoms reported Psychiatric/Neurological: No Symptoms Reported Past Mvbicfq-Qkeknq-Irdmew Hx Immunizations Up To Date Tetanus Booster (TDap): Unknown PED Vaccines UTD: No First/Initial COVID19 Vaccinat: unknown Second COVID19 Vaccination Guillermo: unknown Third COVID19 Vaccination Date: unknown Seasonal Allergies Seasonal Allergies: No Past Medical History Surgery/Hospitalization HX: MULTIPLE CARDIAC CATHS/MULTIPLE CORONARY STENTS/ILIAC STENT/CABG/INGUINAL HERNIA/TONSILLECTOMY/CAROTID ENDARTERECTOMY Surgeries: Yes (LEFT INGUINAL HERNIA;CABG WITH STENTS IN HEART AND LEG, R carotid endartect) Abdominal, Cardiac, CABG, Coronary Stent, Eye Surgery, Tonsillectomy, Vascular Surgery Respiratory: Yes (WEARS O2 AT 5L/NC CONTINUOUSLY. RUL PULMONARY NODULE) Pneumonia, Chronic Bronchitis, COPD Currently Using CPAP: No Currently Using BIPAP: No Cardiac: Yes (STENT X1/ANGIO L EXT ILIAC ART;CABG/STENT X4;CAROTID DZ;CHF;CARDIAC ARREST) Coronary Artery Disease, Deep Vein Thrombosis, Heart Attack, High Cholesterol, Hypertension, Peripheral Vascular Neurological: Yes Stroke Reproductive Disorders: No Sexually Transmitted Disease: No HIV/AIDS: No Genitourinary: No Gastrointestinal: Yes (ANEMIA/GI BLOOD LOSS 04/2022--GASTRITIS, ) Abdominal Hernia, Gastroesophageal Reflux, Diverticulosis, Polyps, Hiatal Hernia, Ulcer Musculoskeletal: Yes (MULTIPLE VERTEBRAL COMPRESSION FRACTURES) Degenerate Disk Disease, Arthritis, Chronic Back Pain, Fractures Endocrine: No HEENT: No Loss of Vision: Denies Hearing Impairment: Denies Cancer: No Psychosocial: Yes Sleep Difficulties, Anxiety, Schizophrenia, Depression Integumentary: No Blood Disorders: Yes (ANEMIA 04/2022--GI BLOOD LOSS--TRANSFUSED 2 UNITS) Adverse Reaction/Blood Tranf: No Family Medical History Diabetes mellitus 19 MOTHER FH: heart disease 19 FATHER Heart Disease, Diabetes SOCIAL HX: -HX OF ALCOHOL ABUSE--CLAIMS HE QUIT YEARS AGO -DENIES DRUG USE -SMOKED 2-3 PPD--QUIT 2017 PSH: -CABG--1 VESSEL BYPASS TO LAD -CARDIAC CATHS AND STENTS X 4, WITH ANGIOPLASTIES--LAST CARDIAC CATH 03/2018--PATENT STENT TO PROXIMAL LAD TO FIRST DIAGONAL, COMPLETE OCCLUSION OF MID LAD AND TO VEIN GRAFT TO LAD; EF 45-50%--NO INTERVENTION DONE AT THAT TIME AND FINDINGS WERE THE SAME THOSE FOUND ON CARDIAC CATH IN 2014 -ANGIOPLASTY AND STENT X 1 TO LEFT LEG/EXTERNAL ILIAC ARTERY 02/2017 -RIGHT CAROTID ENDARTERECTOMY 05/28/[address] BLANKENSHIP AT [facility] -LEFT INGUINAL HERNIA REPAIR -TONSILLECTOMY -EGD/COLONOSCOPY/POLYPECTOMY 05/17/[address] IQBAL: PREOPERATIVE DIAGNOSIS: Symptomatic anemia. POSTOPERATIVE DIAGNOSES: Reflux esophagitis, [place] between grade B and C, small hiatal hernia, 2 cm in size, moderate gastritis, normal duodenum, chronic stage II external, internal hemorrhoids, moderate sigmoid diverticulosis, small polyp of the cecum approximately 3 mm in size. PROCEDURE: EGD with biopsy, colonoscopy with polypectomy with hot biopsy forceps. ADDITIONAL PMH: -HX OF CARDIAC ARREST -CAROTID DISEASE--SEVERE ON RIGHT -RBBB ; LAFB CARDIAC CATH 03/18/[address] CARRION: -CONCLUSION: 1. Total occlusion of the mid LAD and the vein graft to the LAD 2. Patent stent in the proximal LAD that is providing good flow to the first diagonal branch 3. Mild disease in the circumflex and right coronary artery 4. Apical akinesia, good systolic function overall, ejection fraction 45-50 percent DISCUSSION AND RECOMMENDATION: Continue to maximize medical therapy Physical Exam Vital Signs Vital Signs - First Documented Capillary Refill : Height, Weight, BMI Height: 5'8.00" Weight: 174lbs. 0.0oz. 78.267129ox; 27.75 BMI Method:Stated General Appearance: No Apparent Distress, WD/WN HEENT: PERRL/EOMI, Pharynx Normal Neck: Normal Inspection Respiratory: Wheezing (Mild to moderate expiratory wheezing throughout with no increased work of breathing or distress), Other (No reproducible chest wall tenderness) Cardiovascular: Regular Rate, Rhythm, Normal Peripheral Pulses Gastrointestinal: Non Tender, Soft Extremity: Normal Capillary Refill, Normal Inspection, Normal Range of Motion, No Pedal Edema Neurologic/Psychiatric: Alert, Oriented x3, No Motor/Sensory Deficits, Normal Mood/Affect Skin: Normal Color, Warm/Dry Progress/Results/Core Measures Results/Orders Lab Results Laboratory Tests Test 01/21/23 19:36 01/21/23 21:43 Range/Units White Blood Count 6.3 4.3-11.0 10^3/uL Red Blood Count 3.52 L 4.30-5.52 10^6/uL Hemoglobin 9.8 L 13.3-17.7 g/dL Hematocrit 34 L 40-54 % Mean Corpuscular Volume 95 80-99 fL Mean Corpuscular Hemoglobin 28 25-34 pg Mean Corpuscular Hemoglobin Concent 29 L 32-36 g/dL Red Cell Distribution Width 12.9 10.0-14.5 % Platelet Count 156 130-400 10^3/uL Mean Platelet Volume 9.8 9.0-12.2 fL Immature Granulocyte % (Auto) 0 % Neutrophils (%) (Auto) 63 42-75 % Lymphocytes (%) (Auto) 25 12-44 % Monocytes (%) (Auto) 9 0-12 % Eosinophils (%) (Auto) 2 0-10 % Basophils (%) (Auto) 0 0-10 % Neutrophils # (Auto) 4.0 1.8-7.8 10^3/uL Lymphocytes # (Auto) 1.6 1.0-4.0 10^3/uL Monocytes # (Auto) 0.6 0.0-1.0 10^3/uL Eosinophils # (Auto) 0.1 0.0-0.3 10^3/uL Basophils # (Auto) 0.0 0.0-0.1 10^3/uL Immature Granulocyte # (Auto) 0.0 0.0-0.1 10^3/uL Prothrombin Time 12.1 L 12.2-14.7 SEC INR Comment 0.9 0.8-1.4 Activated Partial Thromboplast Time 35 24-35 SEC Sodium Level 142 135-145 MMOL/L Potassium Level 4.1 3.6-5.0 MMOL/L Chloride Level 99 98-107 MMOL/L Carbon Dioxide Level 36 H 21-32 MMOL/L Anion Gap 7 5-14 MMOL/L Blood Urea Nitrogen 9 7-18 MG/DL Creatinine 0.87 0.60-1.30 MG/DL Estimat Glomerular Filtration Rate 95 BUN/Creatinine Ratio 10 Glucose Level 93 70-105 MG/DL Calcium Level 9.2 8.5-10.1 MG/DL Corrected Calcium 9.3 8.5-10.1 MG/DL Magnesium Level 1.8 1.6-2.4 MG/DL Total Bilirubin 0.3 0.1-1.0 MG/DL Aspartate Amino Transf (AST/SGOT) 16 5-34 U/L Alanine Aminotransferase (ALT/SGPT) 14 0-55 U/L Alkaline Phosphatase 92 40-136 U/L Troponin I < 0.028 < 0.028 <0.028 NG/ML Total Protein 7.2 6.4-8.2 GM/DL Albumin 3.9 3.2-4.5 GM/DL My Orders Orders - ARUN BRO MD Ekg Tracing (01/21/23 19:38) Cbc With Automated Diff (01/21/23 19:40) Magnesium (01/21/23 19:40) Chest 1 View, Ap/Pa Only (01/21/23 19:40) Comprehensive Metabolic Panel (01/21/23 19:40) Protime With Inr (01/21/23 19:40) Partial Thromboplastin Time (01/21/23 19:40) O2 (01/21/23 19:40) Monitor-Rhythm Ecg Trace Only (01/21/23 19:40) Ed Iv/Invasive Line Start (01/21/23 19:40) Troponin I [place] (01/21/23 19:40) Lidocaine 2% Viscous 15 Ml (Xylocaine Vi (01/21/23 19:45) Antacid Suspension (Antacid Suspension (01/21/23 19:45) Albuterol Pre-Mix Nebs (Rt) (Albuterol (01/21/23 19:53) Albuterol Pre-Mix Nebs (Rt) (Albuterol (01/21/23 20:30) Svn Small Volume Nebulizer (01/21/23 20:24) Troponin I [place]gr[place] (01/21/23 21:30) Fentanyl Injection (Fentanyl Injection (01/21/23 20:45) Medications Given in ED Current Medications Medications Dose Ordered Sig/Shira Route Start Time Stop Time Status Last Admin Dose Admin Al Hydrox/Mg Hydrox/Simethicone 30 ml ONCE ONCE PO 01/21/23 19:45 01/21/23 19:46 DC 01/21/23 19:56 30 ML Albuterol Sulfate 2.5 mg STK-MED ONCE .ROUTE 01/21/23 19:53 01/21/23 19:57 DC 01/21/23 20:00 2.5 MG Fentanyl Citrate 50 mcg ONCE ONCE IVP 01/21/23 20:45 01/21/23 20:46 DC 01/21/23 20:48 50 MCG Lidocaine HCl 5 ml ONCE ONCE PO 01/21/23 19:45 01/21/23 19:46 DC 01/21/23 19:56 5 ML Vital Signs/I&O 01/21/23 01/21/23 01/21/23 19:29 19:29 22:29 Temp 36.6 36.6 Pulse 86 77 Resp 20 18 B/P (MAP) 149/80 (103) 141/73 Pulse Ox 99 99 O2 Delivery Nasal Cannula Nasal Cannula Nasal Cannula O2 Flow Rate 5.00 5.00 5.00 Progress Progress Note : Time: 22:15 Progress Note Patient seen and evaluated by me. Evaluation today includes physical exam, "cardiac work-up" to include EKG, single view chest x-ray, CBC, Chem-12, magnesium level, coag panel, serum troponin x2. Pertinent physical exam findings well-developed well-nourished male in no acute distress, oriented with stable vital signs. He has regular heart rhythm without ectopy. Normal radial pulses bilaterally. He has expiratory wheezing bilaterally with no increased work of breathing or respiratory distress. Abdominal exam is benign. No lower extremity edema. No focal neurologic deficits. Differential diagnosis based on history and physical exam, NSTEMI/ACS, stable angina, pharyngitis, COPD exacerbation. Labs, imaging and EKG independently reviewed and interpreted by me. His CBC shows a normal white blood count of 6.3. He is slightly anemic with a hemoglobin slightly low at 9.8 hematocrit of 34. Platelets are 156. His Chem-12 is within normal limits, magnesium within normal limits. His coag panel shows a PT of 12.1, slightly elevated. INR of 0.9 and PTT of 35. The patient had serial troponins both of which were undetectable, the second being approximately 4 hours after the onset of his pain. His chest x-ray was read by radiology as normal. Patient had aspirin and nitro prior to arrival. He reques armand morphine for pain. He was given a 30 mill dose of Maalox with viscous lidocaine which completely alleviated his throat pain. He was also given 50 mcg of IV fentanyl which also completely alleviated his chest pain. He has no concerning findings on EKG or laboratory studies for acute coronary syndrome. Suspect stable angina. He does have follow-up scheduled with his risk assessment consultant, Dr. Carrion. He was given a breathing treatment for his wheezing which resolved. No indications for admission at this time. He is encouraged to use his breathing treatments at home. Return precautions provided in both verbal and written format. All questions are sought and answered. Patient is stable for discharge Initial ECG Impression Date: Jan 21, 2023 Initial ECG Impression Time: 19:45 Initial ECG Rate: 74 Initial ECG Rhythm: Normal Sinus Initial ECG Intervals OR interval 175 QRS 110 QTc 374 Comment Q waves noted in the inferior leads, anterior leads, PVC noted, no ST segment elevation or depression. Diagnostic Imaging Diagonstic Imaging: Xray Plain Films/CT/US/NM/MRI: chest Comments [facility]. [place], [place] NAME: [facility] REC#: [id number] PT STATUS: REG ER : 1955 PHYSICIAN: ARUN BRO MD ADMIT DATE: 01/21/23/ER Draft Date of Exam:01/21/23 CHEST 1 VIEW, AP/PA ONLY EXAM: CHEST 1 VIEW, AP/PA ONLY INDICATION: Chest pain. COMPARISON: 12/24/2022. FINDINGS: Sternotomy with CABG. Normal heart size and central pulmonary vascularity. No focal pulmonary opacity. No pleural effusion or pneumothorax. No acute osseous findings. IMPRESSION: No acute cardiopulmonary findings. Dictated on workstation # [id number] Dict: 01/21/231957 Trans: 01/21/232001 [facility] [id number] Interpreted by: MARGOT MALDONADO MD Electronically signed by: Departure Impression Primary Impression: Chest pain Qualified Codes: R07.9 - Chest pain, unspecified Additional Impressions: COPD exacerbation Throat pain in adult Disposition: 01 HOME, SELF-CARE Condition: Improved Departure-Patient Inst. Decision time for Depature: 22:18 Referrals: PJ BOUCHER MD (PCP/Family) Primary Care Physician Patient Instructions: Chest Pain That Is Not Caused by the Heart (DC) Add. Discharge Instructions: Continue your daily medications as prescribed. Consider talking to the pharmacist about crushing your larger pills to help with swallowing the medications. You need to be using your nebulizer or inhaler every 4-6 hours as needed for wheezing and shortness of breath. Hdvo-okc-sapqiuo extra strength Tylenol 2 tablets every 6 hours as needed for pain. Please call your primary care provider for a follow-up appointment after this ER visit. Return to the emergency department for any new, concerning or emergent complaints ARUN BRO MD Jan 21, 2023 19:43
[2023-01-21] MEDS ORDERED: ANTACID SUSPENSION 30 ML UDC PO ONE (19:45)
[2023-01-21] MEDS ORDERED: LIDOCAINE 2% VISCOUS 15 ML UDC PO ONE (19:45)
[2023-01-21] MEDS ORDERED: RT-ALBUTEROL SULF 2.5 MG/3 ML PRE-MIX VIAL ONE (19:53)
[2023-01-21 19:55] LABS: ALBUMIN 3.9 GM/DL (3.2-4.5); BASOPHILS % (AUTO) 0 % (0-10); CHLORIDE 99 MMOL/L (98-107); EOSINOPHILS # (AUTO) 0.1 10^3/uL (0.0-0.3); EOSINOPHILS % (AUTO) 2 % (0-10); HEMATOCRIT 34 % (40-54); HEMOGLOBIN 9.8 g/dL (13.3-17.7); LYMPHOCYTES # (AUTO) 1.6 10^3/uL (1.0-4.0); LYMPHOCYTES % (AUTO) 25 % (12-44); MEAN CORPUSCULAR HEMOGLOBIN 28 pg (25-34); MEAN CORPUSCULAR HGB CONC 29 g/dL (32-36); MEAN CORPUSCULAR VOLUME 95 fL (80-99); MEAN PLATELET VOLUME 9.8 fL (9.0-12.2); MONOCYTES # (AUTO) 0.6 10^3/uL (0.0-1.0); MONOCYTES % (AUTO) 9 % (0-12); NEUTROPHILS % (AUTO) 63 % (42-75); PLATELET COUNT 156 10^3/uL (130-400); POTASSIUM 4.1 MMOL/L (3.6-5.0); SODIUM 142 MMOL/L (135-145); WHITE BLOOD COUNT 6.3 10^3/uL (4.3-11.0)
[2023-01-21 19:56] LABS: CALCIUM 9.2 MG/DL (8.5-10.1)
[2023-01-21 19:57] LABS: GLUCOSE 93 MG/DL (70-105); TOTAL PROTEIN 7.2 GM/DL (6.4-8.2)
[2023-01-21 19:58] LABS: CARBON DIOXIDE 36 MMOL/L (21-32)
[2023-01-21 19:59] LABS: BILIRUBIN,TOTAL 0.3 MG/DL (0.1-1.0)
[2023-01-21 20:00] LABS: INR 0.9 (0.8-1.4); PROTHROMBIN TIME PATIENT 12.1 SEC (12.2-14.7)
[2023-01-21 20:01] LABS: ALKALINE PHOSPHATASE 92 U/L (40-136); CREATININE SERUM 0.87 MG/DL (0.60-1.30); GFR ESTIMATED 95
[2023-01-21 20:02] LABS: BUN/CREATININE RATIO 10
--- NOTE | 2023-01-21 20:02 | Diagnostic Imaging Report ---
EXAM: CHEST 1 VIEW, AP/PA ONLY INDICATION: Chest pain. COMPARISON: 12/24/2022. FINDINGS: Sternotomy with CABG. Normal heart size and central pulmonary vascularity. No focal pulmonary opacity. No pleural effusion or pneumothorax. No acute osseous findings. IMPRESSION: No acute cardiopulmonary findings. Dictated by: Dictated on workstation # [id number]
[2023-01-21 20:04] LABS: ALANINE AMINOTRANSFERASE 14 U/L (0-55); MAGNESIUM 1.8 MG/DL (1.6-2.4)
[2023-01-21] MEDS ORDERED: RT-ALBUTEROL SULF 2.5 MG/3 ML PRE-MIX VIAL INH ONE (20:30)
[2023-01-21] MEDS ORDERED: fentaNYL INJECTION 100 MCG/2 ML VIAL IVP ONE (20:45)
[2023-01-21 22:29] VITALS: BP 141/73
== END 2023-01-21 22:29 | disposition home or self-care (01) ==
LOC: EDUNIT# 19:28 → ER 19:30
DX: J44.1 Chronic obstructive pulmonary disease with (acute) exacerbation (principal); R07.0 Pain in throat; Z95.5 Presence of coronary angioplasty implant and graft; Z95.1 Presence of aortocoronary bypass graft; Z87.891 Personal history of nicotine dependence
CPT/HCPCS: 36415; 71045; 80053; 83735; 84484; 85025; 85610; 85730; 93005; 93041

== ENCOUNTER → 2023-03-21 | Outpatient (CLI) | payer MEDICARE, MEDICAID ==
[~2023-03-21] MED LIST changes: +PRD50T PO
[2023-03-21 13:01] LABS: ABG BASE EXCESS 21.1 MMOL/L (-2.5-2.5); ABG OXYGEN SATURATION 84 % (94-100); ABG PH 7.37 (7.37-7.43); ABG PO2 50 MMHG (79-93)
[2023-03-21 13:05] LABS: ABG PCO2 84 MMHG (35-45); ABG TCO2 50.4 MMOL/L (21.0-31.0); ALLENS TEST YES-POS
[2023-03-21 13:06] LABS: INSPIRED O2 5 L; PATIENT TEMP 36.4; VENTILATOR NO
== END ==
LOC: LAB 12:13
PROVIDERS: ATTEND Internal Medicine Critical Care Medicine
DX: J44.9 Chronic obstructive pulmonary disease, unspecified (principal); J96.12 Chronic respiratory failure with hypercapnia
CPT/HCPCS: 36415; 36600; 82805; 86003

== ENCOUNTER 2023-03-23 18:31 | Emergency (ER) | payer MEDICARE, MEDICAID ==
[~2023-03-23] VITALS: Ht 167 cm; Wt 77.0 kg
[~2023-03-23 18:31] MED LIST changes: -PRD50T PO
[2023-03-23] MEDS ORDERED: RT-ALBUTEROL SULF 2.5 MG/3 ML PRE-MIX VIAL INH STA (19:02)
--- NOTE | 2023-03-23 19:02 | Diagnostic Imaging Report ---
Indication: Chest pain Frontal chest obtained at 0626 p.m. compared to 01/21/2023. There is post sternotomy change. The heart is borderline in size. There is unchanged elevation of the right hemidiaphragm. There is no new infiltrate or pneumothorax or pleural fluid. IMPRESSION: Unchanged elevation of the right hemidiaphragm. Postop changes of mild cardiomegaly. No acute consolidation. Dictated by: Dictated on workstation # [id number]
[2023-03-23 19:13] LABS: BASOPHILS % (AUTO) 0 % (0-10); HEMATOCRIT 30 % (40-54)
--- NOTE | 2023-03-23 19:13 | ED Cardiac General ---
History of Present Illness General Chief Complaint: Chest Pain Stated Complaint: CHEST PAIN Nursing Triage Note: PT TO [facility] BY [facility] WITH CC OF CHEST PAIN FOR ABOUT 7 HRS, TOOK 4 BABY ASA AND 2 NITRO WITH NO RELIEF, LAST NITRO WAS AT 1545 Source: patient Exam Limitations: no limitations History of Present Illness Date Seen by Provider: Mar 23, 2023 Time Seen by Provider: 18:45 Initial Comments 67-year-old male presents to the ER via EMS with complaint of chest pain which started at noon today. He states he took 2 nitros and 4 baby aspirin's, states that he had no change in his pain. He states the pain starts in his left sternum and radiates through his left chest and left shoulder. Patient reports shortness of air, states it has been getting worse with walking. States that sometimes his chest pain increases with walking but not every time he walks. Denies sweating with the pain. States he has been having nausea for the last 3 to 4 days. Denies vomiting. Denies fevers. He has had a previous NC with stents placed. He has also had bypass surgery. He has COPD, chronically wears 5 L of oxygen at all times. Patient's oxygen saturation was 100% upon arrival, nursing staff turned oxygen down to 3 L. 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 Allergies and Home Medications Allergies Coded Allergies: budesonide (Verified Allergy, Severe, angioedema, 12/06/18) formoterol (Verified Allergy, Severe, angioedema, pt has rec Albuterol in the past, 01/23/22) tetanus toxoid, adsorbed (Verified Allergy, Mild, hives, 12/06/18) DOROTA Inhibitors (Verified Allergy, Unknown, Angioedema, 12/06/18) Patient Home Medication List Home Medication List Reviewed: Yes Albuterol Sulfate (Ventolin Hfa) 1 Puff Puff, 2 PUFF IH PRN PRN for SHORTNESS OF BREATH, (Reported) Entered as Reported by: GAVIN RUBIO on 03/18/18 0737 Amlodipine Besylate (Amlodipine Besylate) 5 Mg Tablet, 5 MG PO DAILY, (Reported) Entered as Reported by: CELSO SZYMANSKI on 02/15/18 0350 Aripiprazole (Aripiprazole) 30 Mg Tablet, 30 MG PO DAILY, (Reported) Entered as Reported by: JEFF LEWIS on 06/29/20 1249 Aspirin (Aspirin) 81 Mg Tab.chew, 81 MG PO DAILY, (Reported) Entered as Reported by: JEFF LEWIS on 05/01/20 1344 Atorvastatin Calcium (Atorvastatin Calcium) 80 Mg Tablet, 80 MG PO DAILY, (Reported) Entered as Reported by: GAVIN RUBIO on 03/18/18 0737 Bupropion HCl (Bupropion HCl) 75 Mg Tablet, 75 MG PO DAILY, (Reported) Entered as Reported by: CELSO SZYMANSKI on 02/15/18 0350 Carvedilol (Carvedilol) 6.25 Mg Tablet, 6.25 MG PO DAILY Prescribed by: MEREDITH RAMOS on 05/05/22 1333 Clopidogrel Bisulfate (Clopidogrel) 75 Mg Tablet, 75 MG PO DAILY, (Reported) Entered as Reported by: JEFF LEWIS on 11/08/19 1527 Fluticasone/Salmeterol (Advair 250-50 Diskus) 250 Mcg-50 Mcg/Dose Blst.w.dev, 1 EACH IH, (Reported) Entered as Reported by: ERNESTINE PIERRE on 11/10/22 2115 Isosorbide Mononitrate (Isosorbide Mononitrate ER) 30 Mg Tab.er.24h, 60 MG PO D AILY Prescribed by: ROHIT ASL on 11/11/22 1006 Mirtazapine (Mirtazapine) 30 Mg Tablet, 30 MG PO HS, (Reported) Entered as Reported by: CELSO SZYMANSKI on 02/15/18 0350 Montelukast Sodium (Montelukast Sodium) 10 Mg Tablet, 10 MG PO DAILY, (Reported) Entered as Reported by: JEFF LEWIS on 06/29/20 1249 Nitroglycerin (Nitroglycerin) 0.4 Mg Tab.subl, 0.4 MG SL UD PRN for CHEST PAIN (ANGINA), (Reported) Entered as Reported by: HERON BAEZ on 01/28/22 1309 Horseheads 3 Polyunsat Fatty Acids (Fish Oil 1,000 mg Capsule) 340 Mg-1,000 Mg Cap, 1,000 MG PO DAILY, (Reported) Entered as Reported by: HERON BAEZ on 01/28/22 1308 Omeprazole (Omeprazole) 40 Mg Capsule.dr, 40 MG PO DAILY Prescribed by: TAMIKO IQBAL on 05/17/22 1159 Prednisone (Prednisone) 50 Mg Tab, 50 MG PO DAILY Prescribed by: Teresita Danielle on 03/23/232023 Ranolazine (Ranexa) 1,000 Mg Tab.er.12h, 1,000 MG PO DAILY, (Reported) Entered as Reported by: HERON BEAZ on 01/28/22 1310 Sertraline HCl (Sertraline HCl) 100 Mg Tablet, 200 MG PO DAILY, (Reported) Entered as Reported by: JEFF LEWIS on 11/08/19 1527 Tiotropium [place] (Spiriva Respimat 2.5MCG/ACTUATION) 2.5 Mcg/Actuation Mist.inhal, 2 PUFF IH DAILY, (Reported) Entered as Reported by: ERNESTINE PIERRE on 11/10/222114 Review of Systems Review of Systems Constitutional: see HPI Past Gegnxvv-Cpmwjg-Ndgrii Hx Patient Social History Tobacco Use?: No Smoking Status: Former Smoker Substance use?: No Alcohol Use?: No Immunizations Up To Date Tetanus Booster (TDap): Unknown PED Vaccines UTD: No First/Initial COVID19 Vaccinat: unknown Second COVID19 Vaccination Guillermo: YES Third COVID19 Vaccination Date: unknown Seasonal Allergies Seasonal Allergies: No Past Medical History Surgery/Hospitalization HX: MULTIPLE CARDIAC CATHS/MULTIPLE CORONARY STENTS/ILIAC STENT/CABG/INGUINAL HERNIA/TONSILLECTOMY/CAROTID ENDARTERECTOMY Surgeries: Yes (LEFT INGUINAL HERNIA;CABG WITH STENTS IN HEART AND LEG, R carotid endartect) Abdominal, Cardiac, CABG, Coronary Stent, Eye Surgery, Tonsillectomy, Vascular Surgery Respiratory: Yes (WEARS O2 AT 5L/NC CONTINUOUSLY. RUL PULMONARY NODULE) Pneumonia, Chronic Bronchitis, COPD Currently Using CPAP: No Currently Using BIPAP: No Cardiac: Yes (STENT X1/ANGIO L EXT ILIAC ART;CABG/STENT X4;CAROTID DZ;CHF;CARDIAC ARREST) Coronary Artery Disease, Deep Vein Thrombosis, Heart Attack, High Cholesterol, Hypertension, Peripheral Vascular Neurological: Yes Stroke Reproductive Disorders: No Sexually Transmitted Disease: No HIV/AIDS: No Genitourinary: No Gastrointestinal: Yes (ANEMIA/GI BLOOD LOSS 04/2022--GASTRITIS, ) Abdominal Hernia, Gastroesophageal Reflux, Diverticulosis, Polyps, Hiatal Hernia, Ulcer Musculoskeletal: Yes (MULTIPLE VERTEBRAL COMPRESSION FRACTURES) Degenerate Disk Disease, Arthritis, Chronic Back Pain, Fractures Endocrine: No HEENT: No Loss of Vision: Denies Hearing Impairment: Denies Cancer: No Psychosocial: Yes Sleep Difficulties, Anxiety, Schizophrenia, Depression Integumentary: No Blood Disorders: Yes (ANEMIA 04/2022--GI BLOOD LOSS--TRANSFUSED 2 UNITS) Adverse Reaction/Blood Tranf: No Family Medical History Diabetes mellitus 19 MOTHER FH: heart disease 19 FATHER Heart Disease, Diabetes SOCIAL HX: -HX OF ALCOHOL ABUSE--CLAIMS HE QUIT YEARS AGO -DENIES DRUG USE -SMOKED 2-3 PPD--QUIT 2017 PSH: -CABG--1 VESSEL BYPASS TO LAD -CARDIAC CATHS AND STENTS X 4, WITH ANGIOPLASTIES--LAST CARDIAC CATH 03/2018--PATENT STENT TO PROXIMAL LAD TO FIRST DIAGONAL, COMPLETE OCCLUSION OF MID LAD AND TO VEIN GRAFT TO LAD; EF 45-50%--NO INTERVENTION DONE AT THAT TIME AND FINDINGS WERE THE SAME THOSE FOUND ON CARDIAC CATH IN 2014 -ANGIOPLASTY AND STENT X 1 TO LEFT LEG/EXTERNAL ILIAC ARTERY 02/2017 -RIGHT CAROTID ENDARTERECTOMY 05/28/[address] [facility]SHIP AT [facility] -LEFT INGUINAL HERNIA REPAIR -TONSILLECTOMY -EGD/COLONOSCOPY/POLYPECTOMY 05/17/[address] IQBAL: PREOPERATIVE DIAGNOSIS: Symptomatic anemia. POSTOPERATIVE DIAGNOSES: Reflux esophagitis, [place] between grade B and C, small hiatal hernia, 2 cm in size, moderate gastritis, normal duodenum, chronic stage II external, internal hemorrhoids, moderate sigmoid diverticulosis, small polyp of the cecum approximately 3 mm in size. PROCEDURE: EGD with biopsy, colonoscopy with polypectomy with hot biopsy forceps. ADDITIONAL PMH: -HX OF CARDIAC ARREST -CAROTID DISEASE--SEVERE ON RIGHT -RBBB ; LAFB CARDIAC CATH 03/18/[address] CARRION: -CONCLUSION: 1. Total occlusion of the mid LAD and the vein graft to the LAD 2. Patent stent in the proximal LAD that is providing good flow to the first diagonal branch 3. Mild disease in the circumflex and right coronary artery 4. Apical akinesia, good systolic function overall, ejection fraction 45-50 percent DISCUSSION AND RECOMMENDATION: Continue to maximize medical therapy Physical Exam Vital Signs Vital Signs - First Documented Capillary Refill : Less Than 3 Seconds Height, Weight, BMI Height: 5'8.00" Weight: 174lbs. 0.0oz. [id number]; 27.00 BMI Method:Stated General Appearance: No Apparent Distress, WD/WN Neck: Normal Inspection, Supple Respiratory: Chest Non Tender, No Accessory Muscle Use, No Respiratory Distress, Wheezing, Other (Coarse breath sounds) Cardiovascular: Regular Rate, Rhythm Extremity: Normal Inspection, Normal Range of Motion Neurologic/Psychiatric: Alert, Normal Mood/Affect Skin: Normal Color, Warm/Dry Progress/Results/Core Measures Results/Orders Lab Results Laboratory Tests Test 03/23/23 18:54 03/23/23 21:47 Range/Units White Blood Count 4.4 4.3-11.0 10^3/uL Red Blood Count 3.06 L 4.30-5.52 10^6/uL Hemoglobin 8.7 L 13.3-17.7 g/dL Hematocrit 30 L 40-54 % Mean Corpuscular Volume 98 80-99 fL Mean Corpuscular Hemoglobin 28 25-34 pg Mean Corpuscular Hemoglobin Concent 29 L 32-36 g/dL Red Cell Distribution Width 12.6 10.0-14.5 % Platelet Count 126 L 130-400 10^3/uL Mean Platelet Volume 10.2 9.0-12.2 fL Immature Granulocyte % (Auto) 0 % Neutrophils (%) (Auto) 63 42-75 % Lymphocytes (%) (Auto) 26 12-44 % Monocytes (%) (Auto) 9 0-12 % Eosinophils (%) (Auto) 1 0-10 % Basophils (%) (Auto) 0 0-10 % Neutrophils # (Auto) 2.8 1.8-7.8 10^3/uL Lymphocytes # (Auto) 1.1 1.0-4.0 10^3/uL Monocytes # (Auto) 0.4 0.0-1.0 10^3/uL Eosinophils # (Auto) 0.1 0.0-0.3 10^3/uL Basophils # (Auto) 0.0 0.0-0.1 10^3/uL Immature Granulocyte # (Auto) 0.0 0.0-0.1 10^3/uL Percent Immature Platelet Fraction 5.0 0.0-7.6 % Prothrombin Time 12.9 12.2-14.7 SEC INR Comment 1.0 0.8-1.4 Activated Partial Thromboplast Time 32 24-35 SEC Sodium Level 140 135-145 MMOL/L Potassium Level 4.4 3.6-5.0 MMOL/L Chloride Level 90 L 98-107 MMOL/L Carbon Dioxide Level 41 H 21-32 MMOL/L Anion Gap 9 5-14 MMOL/L Blood Urea Nitrogen 7 7-18 MG/DL Creatinine 0.87 0.60-1.30 MG/DL Estimat Glomerular Filtration Rate 95 BUN/Creatinine Ratio 8 Glucose Level 104 70-105 MG/DL Calcium Level 9.0 8.5-10.1 MG/DL Corrected Calcium 9.2 8.5-10.1 MG/DL Magnesium Level 1.8 1.6-2.4 MG/DL Total Bilirubin 0.4 0.1-1.0 MG/DL Aspartate Amino Transf (AST/SGOT) 22 5-34 U/L Alanine Aminotransferase (ALT/SGPT) 21 0-55 U/L Alkaline Phosphatase 90 40-136 U/L Troponin I < 0.028 < 0.028 <0.028 NG/ML Total Protein 6.8 6.4-8.2 GM/DL Albumin 3.8 3.2-4.5 GM/DL My Orders Orders - TERESITA VANESSA [employer]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 Cbc And Automated Diff (03/23/23 18:45) Magnesium (03/23/23 18:45) Chest 1 View, Ap/Pa Only (03/23/23 18:45) Comprehensive Metabolic Panel (03/23/23 18:45) Protime With Inr (03/23/23 18:45) Partial Thromboplastin Time (03/23/23 18:45) O2 (03/23/23 18:45) Monitor-Rhythm Ecg Trace Only (03/23/23 18:45) Ed Iv/Invasive Line Start (03/23/23 18:45) Troponin I [place] (03/23/23 18:45) Albuterol Pre-Mix Nebs (Rt) (Albuterol (03/23/23 19:02) Svn Small Volume Nebulizer (03/23/23 19:02) Albuterol Pre-Mix Nebs (Rt) (Albuterol (03/23/23 20:15) Svn Small Volume Nebulizer (03/23/23 20:13) Fentanyl Injection (Fentanyl Injection (03/23/23 20:15) Methylprednisolone Sod Succ (Methylpredn (03/23/23 20:30) Troponin I [place] (03/23/23 21:37) Fentanyl Injection (Fentanyl Injection (03/23/23 22:30) Medications Given in ED Vital Signs/I&O 03/23/23 03/23/23 03/23/23 03/23/23 18:46 18:46 19:19 21:47 Temp 37.1 Pulse 86 Resp 25 B/P (MAP) 134/72 (92) Pulse Ox 100 100 98 96 O2 Delivery Nasal Cannula Nasal Cannula Nasal Cannula Nasal Cannula O2 Flow Rate 5.00 5.00 3.00 3.00 03/23/23 22:47 Pulse 80 Resp 13 B/P (MAP) 113/67 Pulse Ox 97 O2 Delivery Nasal Cannula O2 Flow Rate 3.00 3.00 Blood Pressure Mean: 92 Progress Progress Note : Progress Note Patient seen and evaluated, resting comfortably in bed, no acute distress. Based on exam and symptoms, cardiac work-up initiated including CBC, CMP, magnesium, troponin, coags, chest x-ray, EKG. Audible wheezing and coarse breath sounds, albuterol nebulizer ordered. 2020 labs and chest x-ray reviewed. CBC shows decreased hemoglobin 8.7, decreased hematocrit 30, these are down from previous labs drawn 2 months ago. CMP shows decreased chloride 90, elevated CO2 41. Patient may be wearing too much oxygen causing his CO2 to increase. He has remained stable on 3 L of oxyg en while in the ER. Troponin negative. Magnesium normal. Coags normal. Chest x-ray shows no acute consolidation does show mild cardiomegaly and unchanged elevation of right hemidiaphragm. Patient reevaluated. He reports that his shortness of air is better, but that his chest pain is not. Lung sounds assessed, improvement, but continued coarse lung sounds. Second albuterol n ebulizer ordered. Fentanyl ordered for pain. Solu-Medrol ordered. Will repeat a 3-hour troponin and discharge with prescription for prednisone to treat COPD exacerbation. 2219 repeat troponin negative. I do not think that his chest pain is related to ACS due to 2 negative troponins, and nitro did not change the pain. Patient is stable for discharge. Will discharge with prednisone, patient instructed to use his home nebulizers. Discharge instructions and return precautions provided. Initial ECG Impression Date: Mar 23, 2023 Initial ECG Impression Time: 18:42 Initial ECG Rate: 83 Initial ECG Rhythm: Normal Sinus Initial ECG Intervals: QRS (125) Initial ECG Impression: Nonspecific Changes Initial ECG Comparisson: Unchanged Comment Q waves noted inferior and anterior leads, no ST segment elevation or depression. Diagnostic Imaging Diagonstic Imaging: Xray Plain Films/CT/US/NM/MRI: chest Comments [facility]. [place], [place] NAME: [facility] REC#: [id number] PT STATUS: REG ER : 1955 PHYSICIAN: TERESITA VANESSA APRN ADMIT DATE: 03/23/23/ER Signed Date of Exam:03/23/23 CHEST 1 VIEW, AP/PA ONLY Indication: Chest pain Frontal chest obtained at 0626 p.m. compared to 01/21/2023. There is post sternotomy change. The heart is borderline in size. There is unchanged elevation of the right hemidiaphragm. There is no new infiltrate or pneumothorax or pleural fluid. IMPRESSION: Unchanged elevation of the right hemidiaphragm. Postop changes of mild cardiomegaly. No acute consolidation. Dictated by: Dictated on workstation # [id number] Dict: 03/23/231858 Trans: 03/23/231914 [facility] [id number] Interpreted by: AMRIT CASTELLON MD Electronically signed by: AMRIT CASTELLON MD 03/23/231914 Departure Impression Primary Impression: Chest pain Additional Impression: COPD exacerbation Disposition: 01 HOME, SELF-CARE Condition: Stable Departure-Patient Inst. Decision time for Depature: 22:21 Referrals: PJ BOUCHER MD (PCP/Family) Primary Care Physician Patient Instructions: Chest Pain, Adult ED Add. Discharge Instructions: Take prednisone once a day for the next 4 days. Use your home nebulizer as needed for shortness of breath. Follow-up with Dr. Carrion. Call him tomorrow to schedule follow-up appointment. Follow-up with your audio visual design engineer. Call him tomorrow to schedule follow-up appointment. Return for any new, concerning, or worsening symptoms. All discharge instructions reviewed with patient and/or family. Voiced understanding. Scripts Prednisone (Prednisone) 50 Mg Tab 50 MG PO DAILY for 4 Days, #4 TAB 0 Refills Prov: TERESITA VANESSA APRN 03/23/23 Copy Copies To 1: PJ BOUCHER MD Copies To 2: JOSHUA CARRION MD, BRITTANY R APRN Mar 23, 2023 19:13
[2023-03-23 19:15] LABS: EOSINOPHILS # (AUTO) 0.1 10^3/uL (0.0-0.3); EOSINOPHILS % (AUTO) 1 % (0-10); HEMOGLOBIN 8.7 g/dL (13.3-17.7); LYMPHOCYTES # (AUTO) 1.1 10^3/uL (1.0-4.0); LYMPHOCYTES % (AUTO) 26 % (12-44); MEAN CORPUSCULAR HEMOGLOBIN 28 pg (25-34); MEAN CORPUSCULAR HGB CONC 29 g/dL (32-36); MEAN CORPUSCULAR VOLUME 98 fL (80-99); MEAN PLATELET VOLUME 10.2 fL (9.0-12.2); MONOCYTES # (AUTO) 0.4 10^3/uL (0.0-1.0); MONOCYTES % (AUTO) 9 % (0-12); NEUTROPHILS # (AUTO) 2.8 10^3/uL (1.8-7.8); NEUTROPHILS % (AUTO) 63 % (42-75); PLATELET COUNT 126 10^3/uL (130-400); WHITE BLOOD COUNT 4.4 10^3/uL (4.3-11.0)
[2023-03-23 19:28] LABS: PROTHROMBIN TIME PATIENT 12.9 SEC (12.2-14.7)
[2023-03-23 19:30] LABS: ALBUMIN 3.8 GM/DL (3.2-4.5)
[2023-03-23 19:31] LABS: CHLORIDE 90 MMOL/L (98-107); POTASSIUM 4.4 MMOL/L (3.6-5.0); SODIUM 140 MMOL/L (135-145)
[2023-03-23 19:33] LABS: GLUCOSE 104 MG/DL (70-105); TOTAL PROTEIN 6.8 GM/DL (6.4-8.2)
[2023-03-23 19:34] LABS: CARBON DIOXIDE 41 MMOL/L (21-32)
[2023-03-23 19:35] LABS: BILIRUBIN,TOTAL 0.4 MG/DL (0.1-1.0)
[2023-03-23 19:36] LABS: ALKALINE PHOSPHATASE 90 U/L (40-136); CREATININE SERUM 0.87 MG/DL (0.60-1.30); GFR ESTIMATED 95
[2023-03-23 19:38] LABS: BUN/CREATININE RATIO 8
[2023-03-23 19:39] LABS: ALANINE AMINOTRANSFERASE 21 U/L (0-55); MAGNESIUM 1.8 MG/DL (1.6-2.4)
[2023-03-23] MEDS ORDERED: RT-ALBUTEROL SULF 2.5 MG/3 ML PRE-MIX VIAL INH ONE (20:15)
[2023-03-23] MEDS ORDERED: fentaNYL INJECTION 100 MCG/2 ML VIAL IVP ONE ×2 (20:15→22:30)
[2023-03-23] MEDS ORDERED: PRD50T PO (20:24)
[2023-03-23] MEDS ORDERED: methylPREDNISolone INJ 125 MG VIAL IVP ONE (20:30)
[2023-03-23 22:47] VITALS: BP 113/67
== END 2023-03-23 22:47 | disposition home or self-care (01) ==
LOC: EDUNIT# 18:31 → ER 18:32
DX: R07.89 Other chest pain (principal); J44.1 Chronic obstructive pulmonary disease with (acute) exacerbation; Z99.81 Dependence on supplemental oxygen; Z79.82 Long term (current) use of aspirin; Z87.891 Personal history of nicotine dependence; Z95.5 Presence of coronary angioplasty implant and graft
CPT/HCPCS: 36415; 71045; 80053; 83735; 84484; 85025; 85610; 85730; 93005; 93041; 94640

== ENCOUNTER 2023-04-01 20:36 | Emergency (ER) | payer MEDICARE, MEDICAID ==
[~2023-04-01 20:36] MED LIST changes: +PRD50T PO
[2023-04-01] MEDS ORDERED: diphenhydrAMINE 25 MG TABLET PO ONE (21:00)
[2023-04-01] MEDS ORDERED: ACETAMINOPHEN 325 MG TABLET PO ONE (21:00)
--- NOTE | 2023-04-01 21:12 | ED General ---
General Chief Complaint: General Problems/Pain Stated Complaint: POSS ALLERGIC REACTION Nursing Triage Note: TO ED [facility] TO ROOM 3. PT STATES HE WAS EATING CHOCOLATE CHIPS AND LATER FELT LIKE HIS THROAT WAS SCRATCHY AND HIS THOUGHT HIS BOTTOM LIP WAS BIGGER. PT WEARS O2 CONTINUOSLY. Source of Information: Patient, EMS Exam Limitations: No Limitations History of Present Illness Date Seen by Provider: Apr 01, 2023 Time Seen by Provider: 20:37 Initial Comments Patient is a 67-year-old male who presents to the emergency room by EMS chief complaint of feeling like his mouth was swelling and sore throat. Patient states approximately 7 PM he was eating chocolate chip morsels and his noticed that she thought his lower lip was swollen and did not look right. He states at that time he felt like his tongue was swollen. He also noted a sore throat. He denies any sick contacts. No recent fevers. He is chronically on 5 L of oxygen per nasal cannula for COPD. Has cardiac history. States that he is compliant with his medications. He is not on DOROTA inhibitors. He denies any difficulty swallowing or handling his own secretions. He denies voice change. He is not hoarse. Denies chest pain or shortness of breath. No nausea vomiting diarrhea. Timing/Duration: 1 Hour (1-1.5h) Severity: Mild Associated Systoms: Denies Symptoms Allergies and Home Medications Allergies Coded Allergies: budesonide (Verified Allergy, Severe, angioedema, 12/06/18) formoterol (Verified Allergy, Severe, angioedema, pt has rec Albuterol in the past, 01/23/22) tetanus toxoid, adsorbed (Verified Allergy, Mild, hives, 12/06/18) DOROTA Inhibitors (Verified Allergy, Unknown, Angioedema, 12/06/18) Patient Home Medication List Home Medication List Reviewed: Yes Albuterol Sulfate (Ventolin Hfa) 1 Puff Puff, 2 PUFF IH PRN PRN for SHORTNESS OF BREATH, (Reported) Entered as Reported by: GAVIN RUBIO on 03/18/18 9434 Amlodipine Besylate (Amlodipine Besylate) 5 Mg Tablet, 5 MG PO DAILY, (Reported) Entered as Reported by: CELSO SZYMANSKI on 02/15/18 0350 Aripiprazole (Aripiprazole) 30 Mg Tablet, 30 MG PO DAILY, (Reported) Entered as Reported by: JEFF LEWIS on 06/29/20 1249 Aspirin (Aspirin) 81 Mg Tab.chew, 81 MG PO DAILY, (Reported) Entered as Reported by: JEFF LEWIS on 05/01/20 1344 Atorvastatin Calcium (Atorvastatin Calcium) 80 Mg Tablet, 80 MG PO DAILY, (Reported) Entered as Reported by: GAVIN RUBIO on 03/18/18 0737 Bupropion HCl (Bupropion HCl) 75 Mg Tablet, 75 MG PO DAILY, (Reported) Entered as Reported by: CELSO SZYMANSKI on 02/15/18 0350 Carvedilol (Carvedilol) 6.25 Mg Tablet, 6.25 MG PO DAILY Prescribed by: MEREDITH RAMOS on 05/05/22 1333 Clopidogrel Bisulfate (Clopidogrel) 75 Mg Tablet, 75 MG PO DAILY, (Reported) Entered as Reported by: JEFF LEWIS on 11/08/19 1527 Fluticasone/Salmeterol (Advair 250-50 Diskus) 250 Mcg-50 Mcg/Dose Blst.w.dev, 1 EACH IH, (Reported) Entered as Reported by: ERNESTINE PIERRE on 11/10/22 2115 Isosorbide Mononitrate (Isosorbide Mononitrate ER) 30 Mg Tab.er.24h, 60 MG PO DAILY Prescribed by: ROHIT SAL on 11/11/22 1006 Mirtazapine (Mirtazapine) 30 Mg Tablet, 30 MG PO HS, (Reported) Entered as Reported by: CELSO SZYMANSKI on 02/15/18 0350 Montelukast Sodium (Montelukast Sodium) 10 Mg Tablet, 10 MG PO DAILY, (Reported) Entered as Reported by: JEFF LEWIS on 06/29/20 1249 Nitroglycerin (Nitroglycerin) 0.4 Mg Tab.subl, 0.4 MG SL UD PRN for CHEST PAIN (ANGINA), (Reported) Entered as Reported by: HERON BAEZ on 01/28/22 1309 [place] 3 Polyunsat Fatty Acids (Fish Oil 1,000 mg Capsule) 340 Mg-1,000 Mg Cap, 1,000 MG PO DAILY, (Reported) Entered as Reported by: HERON BAEZ on 01/28/22 1308 Omeprazole (Omeprazole) 40 Mg Capsule.dr, 40 MG PO DAILY Prescribed by: TAMIKO IQBAL on 05/17/22 1159 Prednisone (Prednisone) 50 Mg Tab, 50 MG PO DAILY Prescribed by: Teresita Danielle on 03/23/232023 Ranolazine (Ranexa) 1,000 Mg Tab.er.12h, 1,000 MG PO DAILY, (Reported) Entered as Reported by: HERON BAEZ on 01/28/22 1310 Sertraline HCl (Sertraline HCl) 100 Mg Tablet, 200 MG PO DAILY, (Reported) Entered as Reported by: JEFF LEWIS on 11/08/19 1527 Tiotropium [place] (Spiriva Respimat 2.5MCG/ACTUATION) 2.5 Mcg/Actuation Mist.inhal, 2 PUFF IH DAILY, (Reported) Entered as Reported by: ERNESTINE PIERRE on 11/10/222114 Review of Systems Review of Systems Constitutional: see HPI EENTM: throat pain, other (swelling in tongue); No hoarseness, No mouth pain Respiratory: no symptoms reported Cardiovascular: no symptoms reported Gastrointestinal: no symptoms reported Genitourinary: no symptoms reported Musculoskeletal: no symptoms reported Skin: no symptoms reported All Other Systems Reviewed Negative Unless Noted: Yes Past Offpvbg-Atatjn-Xotseh Hx Patient Social History Smoking Status: Former Smoker Immunizations Up To Date Tetanus Booster (TDap): Unknown PED Vaccines UTD: No First/Initial COVID19 Vaccinat: YES Second COVID19 Vaccination Guillermo: YES Third COVID19 Vaccination Date: YES Seasonal Allergies Seasonal Allergies: No Past Medical History Surgery/Hospitalization HX: MULTIPLE CARDIAC CATHS/MULTIPLE CORONARY STENTS/ILIAC STENT/CABG/INGUINAL HERNIA/TONSILLECTOMY/CAROTID ENDARTERECTOMY Surgeries: Yes (LEFT INGUINAL HERNIA;CABG WITH STENTS IN HEART AND LEG, R carotid endartect) Abdominal, Cardiac, CABG, Coronary Stent, Eye Surgery, Tonsillectomy, Vascular Surgery Respiratory: Yes (WEARS O2 AT 5L/NC CONTINUOUSLY. RUL PULMONARY NODULE) Pneumonia, Chronic Bronchitis, COPD Currently Using CPAP: No Currently Using BIPAP: No Cardiac: Yes (STENT X1/ANGIO L EXT ILIAC ART;CABG/STENT X4;CAROTID DZ;CHF;CARDIAC ARREST) Coronary Artery Disease, Deep Vein Thrombosis, Heart Attack, High Cholesterol, Hypertension, Peripheral Vascular Neurological: Yes Stroke Reproductive Disorders: No Sexually Transmitted Disease: No HIV/AIDS: No Genitourinary: No Gastrointestinal: Yes (ANEMIA/GI BLOOD LOSS 04/2022--GASTRITIS, ) Abdominal Hernia, Gastroesophageal Reflux, Diverticulosis, Polyps, Hiatal Hernia, Ulcer Musculoskeletal: Yes (MULTIPLE VERTEBRAL COMPRESSION FRACTURES) Degenerate Disk Disease, Arthritis, Chronic Back Pain, Fractures Endocrine: No HEENT: No Loss of Vision: Denies Hearing Impairment: Denies Cancer: No Psychosocial: Yes Sleep Difficulties, Anxiety, Schizophrenia, Depression Integumentary: No Blood Disorders: Yes (ANEMIA 04/2022--GI BLOOD LOSS--TRANSFUSED 2 UNITS) Adverse Reaction/Blood Tranf: No Family Medical History Diabetes mellitus 19 MOTHER FH: heart disease 19 FATHER Heart Disease, Diabetes SOCIAL HX: -HX OF ALCOHOL ABUSE--CLAIMS HE QUIT YEARS AGO -DENIES DRUG USE -SMOKED 2-3 PPD--QUIT 2017 PSH: -CABG--1 VESSEL BYPASS TO LAD -CARDIAC CATHS AND STENTS X 4, WITH ANGIOPLASTIES--LAST CARDIAC CATH 03/2018--PATENT STENT TO PROXIMAL LAD TO FIRST DIAGONAL, COMPLETE OCCLUSION OF MID LAD AND TO VEIN GRAFT TO LAD; EF 45-50%--NO INTERVENTION DONE AT THAT TIME AND FINDINGS WERE THE SAME THOSE FOUND ON CARDIAC CATH IN 2014 -ANGIOPLASTY AND STENT X 1 TO LEFT LEG/EXTERNAL ILIAC ARTERY 02/2017 -RIGHT CAROTID ENDARTERECTOMY 05/28/[address] [facility]SHIP AT [facility] -LEFT INGUINAL HERNIA REPAIR -TONSILLECTOMY -EGD/COLONOSCOPY/POLYPECTOMY 05/17/[address] IQBAL: PREOPERATIVE DIAGNOSIS: Symptomatic anemia. POSTOPERATIVE DIAGNOSES: Reflux esophagitis, [place] between grade B and C, small hiatal hernia, 2 cm in size, moderate gastritis, normal duodenum, chronic stage II external, internal hemorrhoids, moderate sigmoid diverticulosis, small polyp of the cecum approximately 3 mm in size. PROCEDURE: EGD with biopsy, colonoscopy with polypectomy with hot biopsy forceps. ADDITIONAL PMH: -HX OF CARDIAC ARREST -CAROTID DISEASE--SEVERE ON RIGHT -RBBB ; LAFB CARDIAC CATH 03/18/[address] CASTILLO: -CONCLUSION: 1. Total occlusion of the mid LAD and the vein graft to the LAD 2. Patent stent in the proximal LAD that is providing good flow to the first diagonal branch 3. Mild disease in the circumflex and right coronary artery 4. Apical akinesia, good systolic function overall, ejection fraction 45-50 percent DISCUSSION AND RECOMMENDATION: Continue to maximize medical therapy Physical Exam Vital Signs Vital Signs - First Documented 04/01/23 20:36 Pulse 84 Resp 16 B/P (MAP) 117/67 (84) Pulse Ox 100 O2 Delivery Room Air O2 Flow Rate 3.00 Capillary Refill : Less Than 3 Seconds Height, Weight, BMI Height: 5'8.00" Weight: 174lbs. 0.0oz. [id number]; 27.00 BMI Method:Stated General Appearance: No Apparent Distress, WD/WN Eyes: Bilateral Eye Normal Inspection, Bilateral Eye PERRL HEENT: Moist Mucous Membranes, Other (prominent lower lip (appears similar to me to prior times I have seen him in this department. Lip is soft and supple - no tense edema. - his tongue is prominent - but he is edentulous, no gingival or buccal edema. Mallampati 4 - difficult to evaluate his uvula - but it is not super prominent/doesn't appear swollen.) Neck: Normal Inspection, Supple Respiratory: Normal Breath Sounds, No Accessory Muscle Use, No Respiratory Distress, Wheezing (coarse bilateral exp wheeze - patient states "i always sound that way" - no distress) Cardiovascular: Regular Rate, Rhythm, Normal Peripheral Pulses Gastrointestinal: Soft Extremity: Normal Inspection Neurologic/Psychiatric: Alert, Oriented x3, No Motor/Sensory Deficits, Normal Mood/Affect, icu tech II-XII Norm as Tested Skin: Normal Color, Warm/Dry Progress/Results/Core Measures Suspected Sepsis SIRS Temperature: Pulse: 84 Respiratory Rate: 16 Blood Pressure 117 /67 Mean: 84 Results/Orders My Orders Orders - ARUN BRO MD Diphenhydramine Tablet (Diphenhydramine (04/01/23 21:00) Acetaminophen Tablet (Acetaminophen Ta (04/01/23 21:00) Medications Given in ED Current Medications Medications Dose Ordered Sig/Shira Route Start Time Stop Time Status Last Admin Dose Admin Acetaminophen 650 mg ONCE ONCE PO 04/01/23 21:00 04/01/23 21:01 DC 04/01/23 20:51 650 MG Diphenhydramine HCl 25 mg ONCE ONCE PO 04/01/23 21:00 04/01/23 21:01 DC 04/01/23 20:51 25 MG Vital Signs/I&O 04/01/23 04/01/23 20:36 20:36 Pulse 84 Resp 16 B/P (MAP) 117/67 (84) Pulse Ox 100 O2 Delivery Room Air Nasal Cannula O2 Flow Rate 3.00 Capillary Refill : Less Than 3 Seconds Blood Pressure Mean: 84 Progress Note : Time: 21:25 Progress Note Patient seen and evaluated by me. Eval today includes physical exam. He is chronically ill appearing with normal BP and pulse - normal O2 sats on his chronic 5L oxygen. No distress - handling his secretions - no difficulty in phonation or swallowing. Tongue is prominent - but not protruding. Lips appear normal size. Oropharynx/posterior difficult to visualize due to patient compliance - but no striking posterior erythema or edema noted. Heart is regular - he has bilat coarse exp wheezes. Oriented and in no distress whatsoever. ddx includes angioedema, allergic reaction to food, pharyngitis Patient treated in the ED with 25mg of PO benadryl and 650ml acetaminophen for his throat pain. Monitored on tele with no deterioration in condition. No ongoing edema, shortness of breath. He is comfortable. VS remain stable. I re- evaluated him just prior to d/c (30min after medications) - he is completely better. He feels like the tongue swelling is better (looks the same to me as presentation) - but he states "all better and I'm ready to go home". Return precautions provided in both verbal and written format. Departure Impression Primary Impression: Throat pain in adult Disposition: 01 HOME, SELF-CARE Condition: Stable Departure-Patient Inst. Decision time for Depature: 21:30 Referrals: PJ BOUCHER MD (PCP/Family) Primary Care Physician Patient Instructions: Sore Throat, Adult ED Add. Discharge Instructions: Warm salt water gargles and Tylenol will help your throat pain. If you have increasing pain, especially with fever, shortness of breath or cough - please return to the Emergency Department for re-evaluation. Continue your daily medications. Copy Copies To 1: PJ BOUCHER MD, KATHRYN M MD Apr 01, 2023 21:12
[2023-04-01 22:05] VITALS: BP 114/61
== END 2023-04-01 22:16 | disposition home or self-care (01) ==
LOC: EDUNIT# 20:36 → ER 20:37
DX: R07.0 Pain in throat (principal); J44.9 Chronic obstructive pulmonary disease, unspecified; Z87.891 Personal history of nicotine dependence; Z99.89 Dependence on other enabling machines and devices

== ENCOUNTER 2023-04-08 10:32 | Emergency (ER) | payer MEDICARE, MEDICAID ==
[~2023-04-08] VITALS: Ht 180 cm; Wt 77.0 kg
[2023-04-08] MEDS ORDERED: methylPREDNISolone INJ 125 MG VIAL IVP ONE (11:15)
[2023-04-08] MEDS ORDERED: RT-Ipratropium/Albuterol NEB 3 ML VIAL INH ONE (11:15)
[2023-04-08] MEDS ORDERED: ASPIRIN 81 MG CHEWABLE TABLET PO ONE (11:15)
[2023-04-08 11:17] LABS: BASOPHILS % (AUTO) 0 % (0-10)
--- NOTE | 2023-04-08 11:18 | ED Chest Pain ---
General Chief Complaint: Chest Pain Stated Complaint: EMERGENT HEART ISSUE Nursing Triage Note: ARRIVES TO THE ED WITH C/O SOB AND CHEST PAIN FROM DR CARRION'S OFFICE. SHARLENE OFFICE REPORTED PATIENTS SATS WERE IN THE 80'S WHILE IN HIS OFFICE. Source: patient Exam Limitations: no limitations History of Present Illness Date Seen by Provider: Apr 08, 2023 Time Seen by Provider: 10:59 Initial Comments 67-year-old male presents to the ER with complaints of left-sided chest pain that radiates to his left shoulder and shortness of air starting at 9 AM. Patient was seen by Dr. Carrion, cardiology, this morning who told him to come to the ER. Patient reports that his oxygen saturation was low even though he was wearing his normal 5 L of oxygen. Patient states that he has nitro at home, states that they are old and he needs to refill the prescription, so he did not take any nitro for his pain. He reports that he used 2 of his nebulizers yesterday. He denies fevers, cough, abdominal pain, nausea, vomiting, diarrhea, sore throat, leg swelling, calf pain. Allergies and Home Medications Allergies Coded Allergies: budesonide (Verified Allergy, Severe, angioedema, 12/06/18) formoterol (Verified Allergy, Severe, angioedema, pt has rec Albuterol in the past, 01/23/22) tetanus toxoid, adsorbed (Verified Allergy, Mild, hives, 12/06/18) DOROTA Inhibitors (Verified Allergy, Unknown, Angioedema, 12/06/18) Patient Home Medication List Home Medication List Reviewed: Yes Albuterol Sulfate (Ventolin Hfa) 1 Puff Puff, 2 PUFF IH PRN PRN for SHORTNESS OF BREATH, (Reported) Entered as Reported by: GAVIN RUBIO on 03/18/18 0737 Amlodipine Besylate (Amlodipine Besylate) 5 Mg Tablet, 5 MG PO DAILY, (Reported) Entered as Reported by: CELSO SZYMANSKI on 02/15/18 0350 Aripiprazole (Aripiprazole) 30 Mg Tablet, 30 MG PO DAILY, (Reported) Entered as Reported by: JEFF LEWIS on 06/29/20 1249 Aspirin (Aspirin) 81 Mg Tab.chew, 81 MG PO DAILY, (Reported) Entered as Reported by: JEFF LEWIS on 05/01/20 1344 Atorvastatin Calcium (Atorvastatin Calcium) 80 Mg Tablet, 80 MG PO DAILY, (Reported) Entered as Reported by: GAVIN RUBIO on 03/18/18 0737 Bupropion HCl (Bupropion HCl) 75 Mg Tablet, 75 MG PO DAILY, (Reported) Entered as Reported by: CELSO SZYMANSKI on 02/15/18 0350 Carvedilol (Carvedilol) 6.25 Mg Tablet, 6.25 MG PO DAILY Prescribed by: MEREDITH RAMOS on 05/05/22 1333 Clopidogrel Bisulfate (Clopidogrel) 75 Mg Tablet, 75 MG PO DAILY, (Reported) Entered as Reported by: JEFF LEWIS on 11/08/19 1527 Fluticasone/Salmeterol (Advair 250-50 Diskus) 250 Mcg-50 Mcg/Dose Blst.w.dev, 1 EACH IH, (Reported) Entered as Reported by: ERNESTINE PIERRE on 11/10/22 2115 Isosorbide Mononitrate (Isosorbide Mononitrate ER) 30 Mg Tab.er.24h, 60 MG PO DAILY Prescribed by: ROHIT SAL on 11/11/22 1006 Mirtazapine (Mirtazapine) 30 Mg Tablet, 30 MG PO HS, (Reported) Entered as Reported by: CELSO SZYMANSKI on 02/15/18 0350 Montelukast Sodium (Montelukast Sodium) 10 Mg Tablet, 10 MG PO DAILY, (Reported) Entered as Reported by: JEFF LEWIS on 06/29/20 1249 Nitroglycerin (Nitroglycerin) 0.4 Mg Tab.subl, 0.4 MG SL UD PRN for CHEST PAIN (ANGINA), (Reported) Entered as Reported by: HERON BAEZ on 01/28/22 1309 [place] 3 Polyunsat Fatty Acids (Fish Oil 1,000 mg Capsule) 340 Mg-1,000 Mg Cap, 1,000 MG PO DAILY, (Reported) Entered as Reported by: HERON BAEZ on 01/28/22 1308 Omeprazole (Omeprazole) 40 Mg Capsule.dr, 40 MG PO DAILY Prescribed by: TAMIKO IQBAL on 05/17/22 1159 Prednisone (Prednisone) 50 Mg Tab, 50 MG PO DAILY Prescribed by: Teresita Danielle on 03/23/232023 Prednisone (Prednisone) 50 Mg Tab, 50 MG PO DAILY Prescribed by: Teresita Danielle on 04/08/23 1313 Ranolazine (Ranexa) 1,000 Mg Tab.er.12h, 1,000 MG PO DAILY, (Reported) Entered as Reported by: HERON BAEZ on 01/28/22 1310 Sertraline HCl (Sertraline HCl) 100 Mg Tablet, 200 MG PO DAILY, (Reported) Entered as Reported by: JEFF LEWIS on 11/08/19 1527 Tiotropium [place] (Spiriva Respimat 2.5MCG/ACTUATION) 2.5 Mcg/Actuation Mist.inhal, 2 PUFF IH DAILY, (Reported) Entered as Reported by: ERNESTINE PIERRE on 11/10/222114 Review of Systems Review of Systems Constitutional: see HPI Past Rfwxrkq-Fxnqhr-Qmiynl Hx Patient Social History Tobacco Use?: No Use of E-Cig and/or Vaping dev: No Substance use?: No Alcohol Use?: No Immunizations Up To Date Tetanus Booster (TDap): Unknown PED Vaccines UTD: No Influenza Vaccine Up-to-Date: Yes; Up-to-Date First/Initial COVID19 Vaccinat: 2 SHOTS Second COVID19 Vaccination Guillermo: YES Third COVID19 Vaccination Date: YES Seasonal Allergies Seasonal Allergies: No Past Medical History Surgery/Hospitalization HX: NC, HTN, COPD, Surgeries: Yes (LEFT INGUINAL HERNIA;CABG WITH STENTS IN HEART AND LEG, R carotid endartect) Abdominal, Cardiac, CABG, Coronary Stent, Eye Surgery, Tonsillectomy, Vascular Surgery Respiratory: Yes (WEARS O2 AT 5L/NC CONTINUOUSLY. RUL PULMONARY NODULE) Pneumonia, Chronic Bronchitis, COPD Currently Using CPAP: No Currently Using BIPAP: No Cardiac: Yes (STENT X1/ANGIO L EXT ILIAC ART;CABG/STENT X4;CAROTID DZ;CHF;CARD IAC ARREST) Coronary Artery Disease, Deep Vein Thrombosis, Heart Attack, High Cholesterol, Hypertension, Peripheral Vascular Neurological: Yes Stroke Reproductive Disorders: No Sexually Transmitted Disease: No HIV/AIDS: No Genitourinary: No Gastrointestinal: Yes (ANEMIA/GI BLOOD LOSS 04/2022--GASTRITIS, ) Abdominal Hernia, Gastroesophageal Reflux, Diverticulosis, Polyps, Hiatal Hernia, Ulcer Musculoskeletal: Yes (MULTIPLE VERTEBRAL COMPRESSION FRACTURES) Degenerate Disk Disease, Arthritis, Chronic Back Pain, Fractures Endocrine: No HEENT: No Loss of Vision: Denies Hearing Impairment: Denies Cancer: No Psychosocial: Yes Sleep Difficulties, Anxiety, Schizophrenia, Depression Integumentary: No Blood Disorders: Yes (ANEMIA 04/2022--GI BLOOD LOSS--TRANSFUSED 2 UNITS) Adverse Reaction/Blood Tranf: No Family Medical History Diabetes mellitus 19 MOTHER FH: heart disease 19 FATHER Heart Disease, Diabetes SOCIAL HX: -HX OF ALCOHOL ABUSE--CLAIMS HE QUIT YEARS AGO -DENIES DRUG USE -SMOKED 2-3 PPD--QUIT 2017 PSH: -CABG--1 VESSEL BYPASS TO LAD -CARDIAC CATHS AND STENTS X 4, WITH ANGIOPLASTIES--LAST CARDIAC CATH 03/2018--PATENT STENT TO PROXIMAL LAD TO FIRST DIAGONAL, COMPLETE OCCLUSION OF MID LAD AND TO VEIN GRAFT TO LAD; EF 45-50%--NO INTERVENTION DONE AT THAT TIME AND FINDINGS WERE THE SAME THOSE FOUND ON CARDIAC CATH IN 2014 -ANGIOPLASTY AND STENT X 1 TO LEFT LEG/EXTERNAL ILIAC ARTERY 02/2017 -RIGHT CAROTID ENDARTERECTOMY 05/28/[address] BLANKENSHIP AT [facility] -LEFT INGUINAL HERNIA REPAIR -TONSILLECTOMY -EGD/COLONOSCOPY/POLYPECTOMY 05/17/[address] IQBAL: PREOPERATIVE DIAGNOSIS: Symptomatic anemia. POSTOPERATIVE DIAGNOSES: Reflux esophagitis, [place] between grade B and C, small hiatal hernia, 2 cm in size, moderate gastritis, normal duodenum, chronic stage II external, internal hemorrhoids, moderate sigmoid diverticulosis, small polyp of the cecum approximately 3 mm in size. PROCEDURE: EGD with biopsy, colonoscopy with polypectomy with hot biopsy forceps. ADDITIONAL PMH: -HX OF CARDIAC ARREST -CAROTID DISEASE--SEVERE ON RIGHT -RBBB ; LAFB CARDIAC CATH 03/18/[address] CARRION: -CONCLUSION: 1. Total occlusion of the mid LAD and the vein graft to the LAD 2. Patent stent in the proximal LAD that is providing good flow to the first diagonal branch 3. Mild disease in the circumflex and right coronary artery 4. Apical akinesia, good systolic function overall, ejection fraction 45-50 percent DISCUSSION AND RECOMMENDATION: Continue to maximize medical therapy Physical Exam Vital Signs Vital Signs - First Documented 04/08/23 11:28 FiO2 98 Capillary Refill : Less Than 3 Seconds Height, Weight, BMI Height: 5'8.00" Weight: 174lbs. 0.0oz. 78.193315kt; 23.00 BMI Method:Stated General Appearance: No Apparent Distress, WD/WN Neck: Normal Inspection, Supple Respiratory: No Accessory Muscle Use, No Respiratory Distress, Decreased Breath Sounds, Wheezing Cardiovascular: Regular Rate, Rhythm, No Edema Extremity: Normal Inspection, Normal Range of Motion, Non Tender, No Calf Tenderness, No Pedal Edema Neurologic/Psychiatric: Alert, Normal Mood/Affect Skin: Normal Color, Warm/Dry Progress/Results/Core Measures Results/Orders Lab Results Laboratory Tests Test 04/08/23 10:42 04/08/23 12:12 Range/Units White Blood Count 5.3 4.3-11.0 10^3/uL Red Blood Count 3.23 L 4.30-5.52 10^6/uL Hemoglobin 9.0 L 13.3-17.7 g/dL Hematocrit 32 L 40-54 % Mean Corpuscular Volume 98 80-99 fL Mean Corpuscular Hemoglobin 28 25-34 pg Mean Corpuscular Hemoglobin Concent 29 L 32-36 g/dL Red Cell Distribution Width 13.0 10.0-14.5 % Platelet Count 123 L 130-400 10^3/uL Mean Platelet Volume 11.1 9.0-12.2 fL Immature Granulocyte % (Auto) 0 % Neutrophils (%) (Auto) 67 42-75 % Lymphocytes (%) (Auto) 24 12-44 % Monocytes (%) (Auto) 8 0-12 % Eosinophils (%) (Auto) 1 0-10 % Basophils (%) (Auto) 0 0-10 % Neutrophils # (Auto) 3.5 1.8-7.8 10^3/uL Lymphocytes # (Auto) 1.3 1.0-4.0 10^3/uL Monocytes # (Auto) 0.4 0.0-1.0 10^3/uL Eosinophils # (Auto) 0.1 0.0-0.3 10^3/uL Basophils # (Auto) 0.0 0.0-0.1 10^3/uL Immature Granulocyte # (Auto) 0.0 0.0-0.1 10^3/uL Percent Immature Platelet Fraction 5.2 0.0-7.6 % Prothrombin Time 12.4 12.2-14.7 SEC INR Comment 0.9 0.8-1.4 Activated Partial Thromboplast Time 31 24-35 SEC Sodium Level 140 135-145 MMOL/L Potassium Level 4.3 3.6-5.0 MMOL/L Chloride Level 88 L 98-107 MMOL/L Carbon Dioxide Level 39 H 21-32 MMOL/L Anion Gap 13 5-14 MMOL/L Blood Urea Nitrogen 9 7-18 MG/DL Creatinine 0.94 0.60-1.30 MG/DL Estimat Glomerular Filtration Rate 89 BUN/Creatinine Ratio 10 Glucose Level 105 70-105 MG/DL Calcium Level 9.4 8.5-10.1 MG/DL Corrected Calcium 9.4 8.5-10.1 MG/DL Magnesium Level 2.0 1.6-2.4 MG/DL Total Bilirubin 0.5 0.1-1.0 MG/DL Aspartate Amino Transf (AST/SGOT) 26 5-34 U/L Alanine Aminotransferase (ALT/SGPT) 28 0-55 U/L Alkaline Phosphatase 94 40-136 U/L Troponin I < 0.028 < 0.028 <0.028 NG/ML Total Protein 7.1 6.4-8.2 GM/DL Albumin 4.0 3.2-4.5 GM/DL My Orders Orders - RASHEEDA,TERESITA R MANUFACTURING MAINTENANCE MANAGER Cbc And Automated Diff (04/08/23 11:09) Magnesium (04/08/23 11:09) Chest 1 View, Ap/Pa Only (04/08/23 11:09) Comprehensive Metabolic Panel (04/08/23 11:09) Protime With Inr (04/08/23 11:09) Partial Thromboplastin Time (04/08/23 11:09) O2 (04/08/23 11:09) Monitor-Rhythm Ecg Trace Only (04/08/23 11:09) Ed Iv/Invasive Line Start (04/08/23 11:09) Troponin I Negrita (04/08/23 11:09) Nitroglycerin 0.4 Mg Btl 25's (Nitroglyc (04/08/23 11:15) Aspirin Chewable Tablet (Aspirin Chewabl (04/08/23 11:15) Methylprednisolone Sod Succ (Methylpredn (04/08/23 11:15) Ipratropium/Albuterol Inh Soln (Ipratrop (04/08/23 11:15) Svn Small Volume Nebulizer (04/08/23 11:11) Troponin I Negrita (04/08/23 12:00) Albuterol Pre-Mix Nebs (Rt) (Albuterol (04/08/23 12:00) Svn Small Volume Nebulizer (04/08/23 12:00) Albuterol Pre-Mix Nebs (Rt) (Albuterol (04/08/23 12:07) Fentanyl Injection (Fentanyl Injection (04/08/23 12:45) Medications Given in ED Current Medications Medications Dose Ordered Sig/Shira Route Start Time Stop Time Status Last Admin Dose Admin Albuterol Sulfate 2.5 mg ONCE ONCE INH 04/08/23 12:00 04/08/23 12:01 DC 04/08/23 12:08 2.5 MG Albuterol/ Ipratropium 3 ml ONCE ONCE INH 04/08/23 11:15 04/08/23 11:16 DC 04/08/23 11:28 3 ML Aspirin 324 mg ONCE ONCE PO 04/08/23 11:15 04/08/23 11:16 DC 04/08/23 11:20 324 MG Fentanyl Citrate 75 mcg ONCE ONCE IVP 04/08/23 12:45 04/08/23 12:46 DC 04/08/23 12:50 75 MCG Methylprednisolone Sodium Succinate 125 mg ONCE ONCE IVP 04/08/23 11:15 04/08/23 11:16 DC 04/08/23 11:21 125 MG Nitroglycerin 0.4 mg UD PRN SL 04/08/23 11:15 04/08/23 12:01 DC 04/08/23 12:00 0.4 MG Vital Signs/I&O 04/08/23 04/08/23 04/08/23 04/08/23 10:36 10:36 10:36 11:28 Temp 36.0 Pulse 80 Resp 22 B/P (MAP) 170/82 (111) Pulse Ox 100 100 O2 Delivery Nasal Cannula Nasal Cannula Nasal Cannula Nasal Cannula O2 Flow Rate 5.00 5.00 5.00 2.00 FiO2 98 04/08/23 13:20 Temp 36.0 Pulse 80 Resp 20 B/P (MAP) 159/86 Pulse Ox 99 O2 Delivery Nasal Cannula O2 Flow Rate 3.00 Blood Pressure Mean: 111 Progress Progress Note : Progress Note Patient seen and evaluated, resting comfortably in bed, no acute distress. Based on exam and symptoms, this is likely a COPD exacerbation. Patient has decreased air movement, slight wheeze is heard. Work-up initiated included CBC, CMP, magnesium, coags, EKG, chest x-ray. Aspirin, nitro, DuoNeb, Solu-Medrol ordered. 1200 labs and chest x-ray reviewed. CBC shows decreased hemoglobin and hematocrit, these are at baseline. CMP shows decreased chloride 88, elevated CO2 39, troponin negative. Magnesium normal. Coags normal. Chest x-ray shows small right pleural effusion. Reevaluated, he is moving more air, more wheezing heard. Albuterol nebulizer ordered. Will repeat a 3-hour troponin at this time. 1312 repeat troponin negative. Oxygen saturation has remained stable during entire visit. Patient was at 100% on 5 L, I turned him down to 3 L and he remained mostly at 100%, never dropped below 95%. Results discussed with patient. This is a COPD exacerbation. Patient instructed to call his pulmonolo gist today or tomorrow to let them know that he was seen in the ER and had another COPD exacerbation. Will discharge with prednisone. Patient states he has plenty of his nebulizer solution at home. Patient instructed to use his nebulizer 4 times a day for the next couple of days. Patient is stable for discharge. All questions sought and answered. Discharge instructions and re turn precautions provided. Initial ECG Impression Date: Apr 08, 2023 Initial ECG Impression Time: 10:42 Initial ECG Rate: 75 Initial ECG Rhythm: Normal Sinus Initial ECG Intervals: QRS (105) Initial ECG Impression: Nonspecific Changes Initial ECG Comparisson: Unchanged Diagnostic Imaging Diagonstic Imaging: Xray Plain Films/CT/US/NM/MRI: chest Comments [facility], [place] NAME: [facility] REC#: [id number] PT STATUS: REG ER : 1955 PHYSICIAN: TERESITA VANESSA APRN ADMIT DATE: 04/08/23/ER Signed Date of Exam:04/08/23 CHEST 1 VIEW, AP/PA ONLY History: Chest pain COMPARISON: 03/23/2023 TECHNIQUE: Frontal view of the chest FINDINGS: There is chronic elevation of the right hemidiaphragm. No consolidation is seen. There appears to be a small right pleural effusion. No pneumothorax is seen. The cardiac silhouette is normal in size. Sternotomy wires and post CABG changes are seen. IMPRESSION: 1. Small right pleural effusion. Dictated by: Dictated on workstation # [id number] Dict: 04/08/23 1149 Trans: 04/08/23 1151 S2 [id number] Interpreted by: IONA DHALIWAL MD Electronically signed by: IONA DHALIWAL MD 04/08/23 1151 Departure Impression Primary Impression: Chest pain Additional Impression: COPD exacerbation Disposition: HOME, SELF-CARE Condition: Stable Departure-Patient Inst. Decision time for Depature: 13:12 Referrals: PJ BOUCHER MD (PCP/Family) Primary Care Physician Patient Instructions: Chronic obstructive pulmonary disease (COPD) Add. Discharge Instructions: Complete full course of prednisone. Use your nebulizer treatments 4 times a day for the next couple of days and use as needed. 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 Return for any new, concerning, or worsening symptoms. All discharge instructions reviewed with patient and/or family. Voiced understanding. Scripts Prednisone (Prednisone) 50 Mg Tab 50 MG PO DAILY for 5 Days, #5 TAB 0 Refills Prov: TERESITA VANESSA APRN 04/08/23 Copy Copies To 1: PJ BOUCHER MD Copies To 2: JOSHUA CARRION MD, BRITTANY R APRN Apr 08, 2023 11:18
[2023-04-08 11:19] LABS: CHLORIDE 88 MMOL/L (98-107); EOSINOPHILS # (AUTO) 0.1 10^3/uL (0.0-0.3); EOSINOPHILS % (AUTO) 1 % (0-10); HEMATOCRIT 32 % (40-54); LYMPHOCYTES # (AUTO) 1.3 10^3/uL (1.0-4.0); LYMPHOCYTES % (AUTO) 24 % (12-44); MEAN CORPUSCULAR HEMOGLOBIN 28 pg (25-34); MEAN CORPUSCULAR HGB CONC 29 g/dL (32-36); MEAN CORPUSCULAR VOLUME 98 fL (80-99); MEAN PLATELET VOLUME 11.1 fL (9.0-12.2); MONOCYTES # (AUTO) 0.4 10^3/uL (0.0-1.0); MONOCYTES % (AUTO) 8 % (0-12); NEUTROPHILS # (AUTO) 3.5 10^3/uL (1.8-7.8); NEUTROPHILS % (AUTO) 67 % (42-75); PLATELET COUNT 123 10^3/uL (130-400); POTASSIUM 4.3 MMOL/L (3.6-5.0); SODIUM 140 MMOL/L (135-145); WHITE BLOOD COUNT 5.3 10^3/uL (4.3-11.0)
[2023-04-08 11:20] LABS: CALCIUM 9.4 MG/DL (8.5-10.1)
[2023-04-08 11:21] LABS: GLUCOSE 105 MG/DL (70-105); TOTAL PROTEIN 7.1 GM/DL (6.4-8.2)
[2023-04-08] MEDS: NITROGLYCERIN 0.4 MG SL TABLETS BTL 25'S SL PRN ×3 (11:21→12:00)
[2023-04-08 11:22] LABS: CARBON DIOXIDE 39 MMOL/L (21-32); INR 0.9 (0.8-1.4); PROTHROMBIN TIME PATIENT 12.4 SEC (12.2-14.7)
[2023-04-08 11:23] LABS: BILIRUBIN,TOTAL 0.5 MG/DL (0.1-1.0)
[2023-04-08 11:24] LABS: ALKALINE PHOSPHATASE 94 U/L (40-136)
[2023-04-08 11:25] LABS: CREATININE SERUM 0.94 MG/DL (0.60-1.30); GFR ESTIMATED 89
[2023-04-08 11:26] LABS: BUN/CREATININE RATIO 10
[2023-04-08 11:28] LABS: ALANINE AMINOTRANSFERASE 28 U/L (0-55)
--- NOTE | 2023-04-08 11:53 | Diagnostic Imaging Report ---
History: Chest pain COMPARISON: 03/23/2023 TECHNIQUE: Frontal view of the chest FINDINGS: There is chronic elevation of the right hemidiaphragm. No consolidation is seen. There appears to be a small right pleural effusion. No pneumothorax is seen. The cardiac silhouette is normal in size. Sternotomy wires and post CABG changes are seen. IMPRESSION: 1. Small right pleural effusion. Dictated by: Dictated on workstation # [id number]
[2023-04-08] MEDS ORDERED: RT-ALBUTEROL SULF 2.5 MG/3 ML PRE-MIX VIAL INH ONE (12:00)
[2023-04-08] MEDS ORDERED: RT-ALBUTEROL SULF 2.5 MG/3 ML PRE-MIX VIAL ONE (12:07)
[2023-04-08] MEDS ORDERED: fentaNYL INJECTION 100 MCG/2 ML VIAL IVP ONE (12:45)
[2023-04-08] MEDS ORDERED: PRD50T PO (13:13)
[2023-04-08 13:20] VITALS: BP 159/86
== END 2023-04-08 13:20 | disposition home or self-care (01) ==
LOC: EDUNIT# 10:32 → ER 10:33
DX: J42 Unspecified chronic bronchitis (principal); J90 Pleural effusion, not elsewhere classified; E87.8 Other disorders of electrolyte and fluid balance, not elsewhere classified; R71.0 Precipitous drop in hematocrit; R79.81 Abnormal blood-gas level; Z99.81 Dependence on supplemental oxygen; Z87.891 Personal history of nicotine dependence
CPT/HCPCS: 36415; 71045; 80053; 83735; 84484; 85025; 85610; 85730; 93005; 93041; 94640; 96374; 96375